=== PATIENT | female | born 1950 | race Caucasian/White ===

== ENCOUNTER → 2016-02-26 | Outpatient (CLI) | payer MEDICARE, OTHER ==
[~2016-02-26] MED LIST: ACTO45TA OR; ASPI1TAB PO; ASPI81TA83 OR; CALCTAB68 PO; COMBAER6 INH; DULE100A INH; GLUC1000 OR; IBUP400T OR; INDA125TA PO; INSUDET SC; INSULANT SC; Indapamide PO; LISI10TA4 OR; LISI10TA4 PO; LOVA40TA OR; LOVA40TA PO; MAGN400T5 PO; METF-414 PO; METF500T PO; OMEP20TA7 OR; OMEP40CA2 PO; PERC5TAB6 PO; PIOG45TA2 PO; POTA10CA PO; POTA10CA2 OR
--- NOTE | 2016-02-26 13:45 | REP ---
BILATERAL HIPS: AP and frog leg views of both hips are performed. There is no acute fracture or dislocation. Joint spaces appear essentially unremarkable. There are mild tendinous calcifications along the greater trochanters. IMPRESSION: Essentially negative bilateral hip series. Signed by Antione Alcocer MD 02/26/2016 05:22 P
== END ==
LOC: M RAD 12:15
PROVIDERS: ATTEND Neurological Surgery
DX: M85.9 Disorder of bone density and structure, unspecified (principal)

== ENCOUNTER 2016-07-11 19:33 | Emergency (ER) | payer MEDICARE, OTHER ==
[~2016-07-11] VITALS: Ht 152.4 cm; Wt 80.7 kg
[2016-07-11 19:34] VITALS: BP 135/68
[2016-07-11] MEDS ORDERED: BACTRIM 160MG/800MG DS TAB PO ONE (20:00)
[2016-07-11] MEDS ORDERED: BACT800T5 PO (20:02)
== END 2016-07-11 20:41 | disposition home or self-care (01) ==
LOC: M ED 20:15
DX: N30.00 Acute cystitis without hematuria (principal); E11.9 Type 2 diabetes mellitus without complications; J45.909 Unspecified asthma, uncomplicated; Z90.79 Acquired absence of other genital organ(s); Z90.89 Acquired absence of other organs; Z79.82 Long term (current) use of aspirin; Z79.899 Other long term (current) drug therapy; Z91.09 Other allergy status, other than to drugs and biological substances

== ENCOUNTER 2016-08-09 19:39 | Emergency (ER) | payer MEDICARE, OTHER ==
[~2016-08-09] VITALS: Ht 149.9 cm; Wt 79.2 kg
[~2016-08-09 19:39] MED LIST changes: +BACT800T5 PO; -METF500T PO; +METF500T13 PO; +PERC5TAB12 PO; -PERC5TAB6 PO; -PIOG45TA2 PO; +PIOG45TA4 PO
[2016-08-09] MEDS ORDERED: ACETAMINOPHEN TAB 650MG DOSE (2X325MG) PO ONE (23:00)
[2016-08-09] MEDS ORDERED: NS 500 ML IV ONE (23:00)
[2016-08-09] MEDS ORDERED: IPRATROPIUM 0.5MG/ALBUTEROL 2.5MG INH SOL UD 3ML (DUONEB)(J7620) NEB ONE (23:00)
[2016-08-09 23:34] LABS: BASO % 0.6 % (0.0-1.0); EOS # 0.1 K/mm3 (0.0-0.50); EOS % 1.3 % (0.0-3.0); LARGE UNSTAINED CELL # 0.1 K/mm3 (0.0-0.4); LARGE UNSTAINED CELL % 1.3 % (0.0-4.0); LYMPH # 1.4 K/mm3 (1.5-4.5); LYMPH % 23.9 % (24.0-44.0); MEAN CORPUSCULAR HEMOGLOBIN 27.2 pg (27.0-33.0); MEAN CORPUSCULAR HGB CONC 31.1 g/dl (32.0-36.5); MEAN CORPUSCULAR VOLUME 87.5 fl (80.0-96.0); MONO # 0.3 K/mm3 (0.0-0.8); MONO % 5.7 % (0.0-5.0); NEUTROPHILS # 3.6 K/mm3 (1.8-7.7); NEUTROPHILS % 67.2 % (36.0-66.0); PLATELET COUNT, AUTOMATED 249 k/mm3 (150-450); RED CELL DISTRIBUTION WIDTH 15.1 % (11.5-14.5); WHITE BLOOD COUNT 5.4 K/mm3 (4.0-10.0)
[2016-08-10] LABS: ALBUMIN 3.8 GM/DL (3.2-5.2); ALBUMIN/GLOBULIN RATIO 1.31 (1.00-1.93); ALKALINE PHOSPHATASE 81 U/L (45-117); ALT/SGPT 19 U/L (12-78); ANION GAP 5 MEQ/L (8-16); AST/SGOT 11 U/L (15-37); BILIRUBIN,DIRECT 0.1 MG/DL (0.0-0.2); BILIRUBIN,TOTAL 0.6 MG/DL (0.2-1.0); BLOOD UREA NITROGEN 16 MG/DL (7-18); CALCIUM LEVEL 9.1 MG/DL (8.8-10.2); CARBON DIOXIDE LEVEL 32 MEQ/L (21-32); CHLORIDE LEVEL 98 MEQ/L (98-107); CREATININE FOR GFR 0.87 MG/DL (0.55-1.02); GLOMERULAR FILTRATION RATE > 60.0 (>45); GLUCOSE, FASTING 195 MG/DL (80-110); POTASSIUM SERUM 3.6 MEQ/L (3.5-5.1); SODIUM LEVEL 135 MEQ/L (136-145); TOTAL PROTEIN 6.7 GM/DL (6.4-8.2)
[2016-08-10] MEDS ORDERED: POLY33502 PO (00:41)
[2016-08-10 00:51] VITALS: BP 122/67
--- NOTE | 2016-08-10 09:39 | REP ---
ABDOMINAL SERIES: Supine and erect views of the abdomen demonstrate no evidence of free intraperitoneal air and no evidence for bowel obstruction. Phlebolith is seen in the right pelvis. An accompanying view of the chest demonstrates mild cardiomegaly. There is no acute infiltrate. IMPRESSION: Unremarkable abdominal series. Signed by Antione Alcocer MD 08/10/2016 08:16 P
== END 2016-08-10 00:53 | disposition home or self-care (01) ==
LOC: M ED 21:12
DX: K59.00 Constipation, unspecified (principal); E11.9 Type 2 diabetes mellitus without complications; G40.909 Epilepsy, unspecified, not intractable, without status epilepticus; J45.909 Unspecified asthma, uncomplicated; G89.29 Other chronic pain; Z90.79 Acquired absence of other genital organ(s); Z90.89 Acquired absence of other organs; Z87.891 Personal history of nicotine dependence; Z79.82 Long term (current) use of aspirin; Z79.899 Other long term (current) drug therapy; Z91.09 Other allergy status, other than to drugs and biological substances

== ENCOUNTER → 2017-04-20 | Outpatient (REF) | payer MEDICARE, OTHER | LOC: M LAB REF 12:15 | DX: L03.114 Cellulitis of left upper limb (principal) | CPT/HCPCS: 87070; 87077 ==

== ENCOUNTER → 2017-05-16 | Outpatient (REF) | payer MEDICARE, OTHER | LOC: M LAB REF 19:09 | DX: R30.0 Dysuria (principal) | CPT/HCPCS: 87086 ==

== ENCOUNTER → 2017-08-26 | Outpatient (CLI) | payer MEDICARE, OTHER | LOC: M WUC 12:05 | DX: M25.569 Pain in unspecified knee (principal) | CPT/HCPCS: 73560 ==

== ENCOUNTER → 2017-09-29 | Outpatient (CLI) | payer MEDICARE, OTHER | LOC: M WUC 13:19 | DX: M85.9 Disorder of bone density and structure, unspecified (principal) | CPT/HCPCS: 73030 ==

== ENCOUNTER → 2017-11-16 | Outpatient (CLI) | payer MEDICARE, OTHER | LOC: M WUC 12:14 | DX: M25.552 Pain in left hip (principal) | CPT/HCPCS: 73502 ==

== ENCOUNTER → 2018-03-17 | Outpatient (CLI) | payer MEDICARE, OTHER ==
[~2018-03-17] MED LIST changes: +KLOR10TA76 PO; +MAAL10003 PO; +PIOG1TAB55 PO; -PIOG45TA4 PO; +POLY1POW38 PO; -POTA10CA PO
--- NOTE | 2018-03-17 19:44 | REP ---
LEFT SHOULDER SERIES: Three views of the left shoulder are performed. There is no fracture or dislocation seen. There is mild narrowing and spurring at the glenohumeral joint. IMPRESSION: Mild degenerative changes. No fracture or dislocation. Electronically Signed by Antione Alcocer MD 03/17/2018 07:50 P
--- NOTE | 2018-03-17 19:48 | REP ---
LEFT RIB SERIES: Four views of the left ribs are performed. There is no acute fracture, dislocation or bone lesion identified. A PA view of the chest demonstrates no infiltrate or pneumothorax. No pleural effusion is seen. There appears to be a prominent cardiophrenic fat pad on the left. There is a calcification of the thoracic aorta. IMPRESSION: No evidence of left rib fracture. Electronically Signed by Antione Alcocer MD 03/17/2018 07:50 P
== END ==
LOC: M WUC 18:28
PROVIDERS: ATTEND Physician Assistant
DX: M25.712 Osteophyte, left shoulder (principal); M25.512 Pain in left shoulder

== ENCOUNTER → 2018-04-11 | Outpatient (CLI) | payer MEDICARE, OTHER ==
--- NOTE | 2018-04-11 15:11 | REP ---
UNILATERAL RIBS, PA CHEST: HISTORY: Contusion. COMPARISON: 03/17/2018. The lungs are clear. The heart is normal in size. The pulmonary vasculature is normal in appearance. The bony structure is intact. IMPRESSION:No acute disease. Electronically Signed by Jaren Barnhart MD 04/11/2018 03:48 P
== END ==
LOC: M WUC 14:27
PROVIDERS: ATTEND Physician Assistant
DX: S20.222A Contusion of left back wall of thorax, initial encounter (principal); X58.XXXA Exposure to other specified factors, initial encounter; Y92.9 Unspecified place or not applicable

== ENCOUNTER → 2018-09-16 | Outpatient (CLI) | payer MEDICARE, OTHER ==
[~2018-09-16] MED LIST changes: -ASPI1TAB PO; +ASPI81TA26 PO
[2018-09-16 16:20] LABS: BASO % 0.3 % (0.0-1.0); EOS # 0.2 10^3/uL (0.0-0.50); EOS % 2.2 % (0.0-3.0); HEMATOCRIT 35.1 % (36.0-47.0); HEMOGLOBIN 10.3 g/dl (12.0-15.5); LYMPH # 2.1 10^3/uL (1.5-4.5); LYMPH % 23.3 % (24.0-44.0); MEAN CORPUSCULAR HEMOGLOBIN 24.9 pg (27.0-33.0); MEAN CORPUSCULAR HGB CONC 29.3 g/dl (32.0-36.5); MONO # 0.6 10^3/uL (0.0-0.8); MONO % 6.8 % (0.0-5.0); NEUTROPHILS # 5.9 10^3/uL (1.8-7.7); NEUTROPHILS % 67.2 % (36.0-66.0); PLATELET COUNT, AUTOMATED 292 10^3/uL (150-450); RED BLOOD COUNT 4.13 10^6/uL (4.00-5.40); WHITE BLOOD COUNT 8.8 10^3/uL (4.0-10.0)
[2018-09-16 17:11] LABS: PERCENT SATURATION 7.2 % (13.2-45.0)
== END ==
LOC: M WUC 12:02
PROVIDERS: ATTEND Internal Medicine
DX: D64.9 Anemia, unspecified (principal)

== ENCOUNTER 2018-09-18 22:47 | Emergency (ER) | payer MEDICARE, OTHER ==
[~2018-09-18] VITALS: Ht 144.8 cm; Wt 86.1 kg
[2018-09-19 00:30] LABS: BLOOD UREA NITROGEN 13 MG/DL (7-18); CALCIUM LEVEL 9.1 MG/DL (8.8-10.2); CARBON DIOXIDE LEVEL 28 MEQ/L (21-32); CHLORIDE LEVEL 101 MEQ/L (98-107); CREATININE FOR GFR 0.81 MG/DL (0.55-1.30); GLOMERULAR FILTRATION RATE > 60.0 (>45); GLUCOSE, FASTING 109 MG/DL (70-100); POTASSIUM SERUM 3.9 MEQ/L (3.5-5.1); SODIUM LEVEL 137 MEQ/L (136-145)
[2018-09-19 01:02] VITALS: BP 134/76
== END 2018-09-19 01:20 | disposition home or self-care (01) ==
LOC: M ED 22:47
DX: E11.9 Type 2 diabetes mellitus without complications (principal); I10 Essential (primary) hypertension; J21.9 Acute bronchiolitis, unspecified; J45.909 Unspecified asthma, uncomplicated; Z79.82 Long term (current) use of aspirin; Z79.4 Long term (current) use of insulin; Z79.899 Other long term (current) drug therapy; Z91.89 Other specified personal risk factors, not elsewhere classified

== ENCOUNTER 2018-10-11 14:59 | Emergency (ER) | payer MEDICARE, OTHER ==
[~2018-10-11] VITALS: Ht 142.2 cm; Wt 84.7 kg
[2018-10-11] MEDS ORDERED: OMEP-221 (15:09)
[2018-10-11] MEDS ORDERED: METF10004 (15:09)
[2018-10-11] MEDS ORDERED: DULO1CAP5 (15:09)
[2018-10-11] MEDS ORDERED: FERA1TAB (15:09)
[2018-10-11 17:40] LABS: BASO % 0.5 % (0.0-1.0); EOS # 0.2 10^3/uL (0.0-0.50); EOS % 2.4 % (0.0-3.0); HEMATOCRIT 34.4 % (36.0-47.0); HEMOGLOBIN 10.4 g/dl (12.0-15.5); LYMPH # 2.4 10^3/uL (1.5-4.5); LYMPH % 37.7 % (24.0-44.0); MEAN CORPUSCULAR HEMOGLOBIN 25.9 pg (27.0-33.0); MEAN CORPUSCULAR HGB CONC 30.2 g/dl (32.0-36.5); MEAN CORPUSCULAR VOLUME 85.6 fl (80.0-96.0); MONO # 0.5 10^3/uL (0.0-0.8); MONO % 7.9 % (0.0-5.0); NEUTROPHILS # 3.3 10^3/uL (1.8-7.7); NEUTROPHILS % 51.3 % (36.0-66.0); PLATELET COUNT, AUTOMATED 305 10^3/uL (150-450); RED BLOOD COUNT 4.02 10^6/uL (4.00-5.40); WHITE BLOOD COUNT 6.3 10^3/uL (4.0-10.0)
[2018-10-11 18:42] LABS: ALBUMIN 3.3 GM/DL (3.2-5.2); ALT/SGPT 20 U/L (12-78); BILIRUBIN,DIRECT < 0.1 MG/DL (0.0-0.2); BILIRUBIN,TOTAL 0.2 MG/DL (0.2-1.0); BLOOD UREA NITROGEN 19 MG/DL (7-18); CALCIUM LEVEL 8.8 MG/DL (8.8-10.2); CARBON DIOXIDE LEVEL 27 MEQ/L (21-32); CHLORIDE LEVEL 105 MEQ/L (98-107); CREATININE FOR GFR 0.82 MG/DL (0.55-1.30); GLOMERULAR FILTRATION RATE > 60.0 (>45); GLUCOSE, FASTING 159 MG/DL (70-100); LIPASE 305 U/L (73-393); POTASSIUM SERUM 4.6 MEQ/L (3.5-5.1); SODIUM LEVEL 139 MEQ/L (136-145); TOTAL PROTEIN 6.1 GM/DL (6.4-8.2)
[2018-10-11] MEDS ORDERED: ISOVUE-370 76% 100ML VIAL (Q9967) As Ordered ONE (19:02)
--- NOTE | 2018-10-11 19:44 | REPVR ---
EXAM: CT Abdomen and Pelvis With Contrast EXAM DATE/TIME: 10/11/2018 6:55 PM CLINICAL HISTORY: 68 years old, female; Abdominal pain; Generalized; Additional info: Low abd pain, ttp TECHNIQUE: Imaging protocol: Axial computed tomography images of the abdomen and pelvis with intravenous contrast. Radiation optimization: All CT scans at this facility use at least one of these dose optimization techniques: automated exposure control; mA and/or kV adjustment per patient size (includes targeted exams where dose is matched to clinical indication); or iterative reconstruction. Contrast material: ISOVUE 370; Contrast volume: 100 ml; Contrast route: IV; COMPARISON: CT ABD PELVIS W/O CONTRAST 11/17/2015 6:53 PM FINDINGS: Pleural space: No pulmonary consolidation or pleural effusion identified within the lower thorax. Liver: Small geographic area of decreased attenuation within the left lobe of the liver, consistent with focal fatty infiltration. No intrahepatic duct dilatation. Gallbladder and bile ducts: Mildly distended gallbladder without wall thickening, calcified stone or pericholecystic fluid, nonspecific. Pancreas: Unremarkable pancreas. Spleen: Normal spleen. Adrenals: Normal adrenal glands. Kidneys and ureters: No renal stone, focal renal lesion, or hydronephrosis. Stomach and bowel: Small diverticulum of the descending duodenum without diverticulitis. Mild diverticulosis of the descending colon without diverticulitis. The stomach and small bowel are unremarkable. Appendix: No evidence of appendicitis. Intraperitoneal space: Unremarkable. No free air. No significant fluid collection. Vasculature: Atherosclerosis of the abdominal aorta and branch vessels. No aneurysm. Lymph nodes: Unremarkable. No enlarged lymph nodes. Bladder: Generalized wall thickening of the urinary bladder is likely secondary to under distention. Cystitis is not excluded. Reproductive: Status post hysterectomy. No adnexal mass. Bones/joints: Degenerative spondylosis of the lower thoracic and lumbar spine. No fracture or suspicious bone lesion. Soft tissues: Hazy density and reticulation of the subcutaneous fat of the anterior upper abdomen, likely secondary to medication injection sites. Correlate clinically. IMPRESSION: 1. No acute abnormality. 2. Generalized wall thickening of the urinary bladder is likely secondary to under distention. Cystitis is not excluded. Electronically signed by: Antoine Linder On 10/11/2018 19:43:54 PM
[2018-10-11] MEDS ORDERED: NS 1,000 ML IV ONE (20:00)
[2018-10-11 21:41] VITALS: BP 132/62
== END 2018-10-11 22:03 | disposition home or self-care (01) ==
LOC: M ED 14:59
DX: E86.0 Dehydration (principal); R10.9 Unspecified abdominal pain; E11.9 Type 2 diabetes mellitus without complications; I10 Essential (primary) hypertension; E78.5 Hyperlipidemia, unspecified; J45.909 Unspecified asthma, uncomplicated; M54.9 Dorsalgia, unspecified; K21.9 Gastro-esophageal reflux disease without esophagitis; Z87.891 Personal history of nicotine dependence; F10.21 Alcohol dependence, in remission; Z91.048 Other nonmedicinal substance allergy status; Z79.899 Other long term (current) drug therapy; Z79.82 Long term (current) use of aspirin; Z79.4 Long term (current) use of insulin
CPT/HCPCS: 74177; 80048; 80076; 81001; 83690; 85025; 99284; Q9967

== ENCOUNTER 2018-12-01 08:16 | Day surgery (SDC) | payer MEDICARE, OTHER ==
[~2018-12-01] VITALS: Ht 152.4 cm; Wt 83.0 kg
[~2018-12-01 08:16] MED LIST changes: +CALC1TAB63 PO; +DULO1CAP5 PO; +FERA1TAB PO; +MAGN400T2 PO; +METF10004 PO; +NS 1,000 ML IV ONE; +OMEP-221; -OMEP40CA2 PO; +OMEP40CA97 PO
[2018-12-01] MEDS ORDERED: PROPOFOL 200 MG/20 ML VIAL As Ordered ONE (08:32)
[2018-12-01] MEDS ORDERED: LIDOCAINE 2% INJ 100 MG/5 ML SDV (FOR ANES.) As Ordered ONE (08:32)
[2018-12-01] MEDS ORDERED: fentaNYL 100 MCG/2 ML INJECTION (J3010) As Ordered ONE (08:39)
[2018-12-01] MEDS ORDERED: DEXTROSE 50% 50 ML SYRINGE As Ordered ONE (08:55)
[2018-12-01] MEDS ORDERED: DEXTROSE 50% 50 ML SYRINGE IV ONE (09:15)
--- NOTE | 2018-12-01 10:48 | ROOR ---
Patient Name: Elsy Killian Procedure Date: 12/01/2018 10:02 AM Date of : 1950 Age: 68 Room: [facility] Gender: Female Note Status: Finalized Procedure: Upper GI endoscopy Indications: Iron deficiency anemia Providers: Evan Carrion MD Referring MD: KRISTINE KINGSTON MD Requesting Provider: Medicines: Monitored Anesthesia Care Complications: No immediate complications. Procedure: Pre-Anesthesia Assessment: - Prior to the procedure, a History and Physical was performed, and patient medications and allergies were reviewed. The patient is competent. The risks and benefits of the procedure and the sedation options and risks were discussed with the patient. All questions were answered and informed consent was obtained. Patient identification and proposed procedure were verified by the physician, the nurse and the anesthesiologist in the procedure room. Mental Status Examination: alert and oriented. Airway Examination: normal oropharyngeal airway and neck mobility. Respiratory Examination: clear to auscultation. CV Examination: normal. Prophylactic Antibiotics: The patient does not require prophylactic antibiotics. Prior Anticoagulants: The patient has taken no previous anticoagulant or antiplatelet agents. ASA Grade Assessment: II - A patient with mild systemic disease. After reviewing the risks and benefits, the patient was deemed in satisfactory condition to undergo the procedure. The anesthesia plan was to use monitored anesthesia care (MAC). Immediately prior to administration of medications, the patient was re-assessed for adequacy to receive sedatives. The heart rate, respiratory rate, oxygen saturations, blood pressure, adequacy of pulmonary ventilation, and response to care were monitored throughout the procedure. The physical status of the patient was re-assessed after the procedure. The Endoscope was introduced through the mouth, and advanced to the second part of duodenum. The upper GI endoscopy was accomplished without difficulty. The patient tolerated the procedure well. Findings: The Z-line was regular and was found 35 cm from the incisors. The examined esophagus was normal. Scattered moderate inflammation characterized by erosions, erythema, friability and granularity was found in the gastric antrum. Biopsies were taken with a cold forceps for Helicobacter pylori testing. Verification of patient identification for the specimen was done by the physician and nurse using the patient's name, date and medical record number. Estimated blood loss was minimal. No gross lesions were noted in the duodenal bulb and in the second portion of the duodenum. Biopsies for histology were taken with a cold forceps for evaluation of celiac disease. Impression: - Z-line regular, 35 cm from the incisors. - Normal esophagus. - Gastritis. Biopsied. - No gross lesions in the duodenal bulb and in the second portion of the duodenum. Biopsied. Recommendation: - Patient has a contact number available for emergencies. The signs and symptoms of potential delayed complications were discussed with the patient. Return to normal activities tomorrow. Written discharge instructions were provided to the patient. - High fiber diet. - Continue present medications. - Await pathology results. - Use Protonix (pantoprazole) 40 mg PO twice daily - to be taken in morning (1/2 hour before breakfast) and at bedtime ( atleast 3 hours after last meal) for 8 weeks. - Return to GI clinic in [facility] (address [address], [address], [place] [address]) in 4 -- 6 weeks. Please call GI clinic @ [phone] for apppointment date and time. - Return to primary care physician. Evan Carrion MD Evan Carrion MD 12/01/2018 10:48:06 AM Electronically signed by Evan Carrion MD Number of Addenda: 0 Note Initiated On: 12/01/2018 10:02 AM Estimated Blood Loss: Estimated blood loss was minimal.
--- NOTE | 2018-12-01 10:59 | ROOR ---
Patient Name: Elsy Killian Procedure Date: 12/01/2018 10:03 AM Date of : 1950 Age: 68 Room: [facility] Gender: Female Note Status: Finalized Procedure: Colonoscopy Indications: Iron deficiency anemia Providers: Evan Carrion MD Referring MD: KRISTINE KINGSTON MD Requesting Provider: Medicines: Monitored Anesthesia Care Complications: No immediate complications. Procedure: Pre-Anesthesia Assessment: - Prior to the procedure, a History and Physical was performed, and patient medications and allergies were reviewed. The patient is competent. The risks and benefits of the procedure and the sedation options and risks were discussed with the patient. All questions were answered and informed consent was obtained. Patient identification and proposed procedure were verified by the physician, the nurse and the anesthesiologist in the procedure room. Mental Status Examination: alert and oriented. Airway Examination: normal oropharyngeal airway and neck mobility. Respiratory Examination: clear to auscultation. CV Examination: normal. Prophylactic Antibiotics: The patient does not require prophylactic antibiotics. Prior Anticoagulants: The patient has taken no previous anticoagulant or antiplatelet agents. ASA Grade Assessment: III - A patient with severe systemic disease. After reviewing the risks and benefits, the patient was deemed in satisfactory condition to undergo the procedure. The anesthesia plan was to use monitored anesthesia care (MAC). Immediately prior to administration of medications, the patient was re-assessed for adequacy to receive sedatives. The heart rate, respiratory rate, oxygen saturations, blood pressure, adequacy of pulmonary ventilation, and response to care were monitored throughout the procedure. The physical status of the patient was re-assessed after the procedure. The Colonoscope was introduced through the anus and advanced to the terminal ileum, with identification of the appendiceal orifice and IC valve. The colonoscopy was performed without difficulty. The patient tolerated the procedure well. The quality of the bowel preparation was poor. The terminal ileum, ileocecal valve, appendiceal orifice, and rectum were photographed. Scope insertion time was 3 minutes. Scope withdrawal time was 8 minutes. The total duration of the procedure was 11 minutes. Findings: The perianal and digital rectal examinations were normal. The terminal ileum appeared normal. Semi-liquid semi-solid stool was found from descending colon to cecum, interfering with visualization. Lavage of the area was performed using a large amount of sterile water, resulting in incomplete clearance with fair visualization. Non-bleeding external and internal hemorrhoids were found during retroflexion. The hemorrhoids were medium-sized. Impression: - Preparation of the colon was poor. - The examined portion of the ileum was normal. - Stool from descending to cecum. - Non-bleeding external and internal hemorrhoids. - No specimens collected. Recommendation: - Patient has a contact number available for emergencies. The signs and symptoms of potential delayed complications were discussed with the patient. Return to normal activities tomorrow. Written discharge instructions were provided to the patient. - High fiber diet. - Continue present medications. - Await pathology results. - Repeat colonoscopy in 1 year because the bowel preparation was poor. - Check hemoglobin and hematocrit and iron studies in 3 months. - Return to GI clinic in [facility] (address [address], [address], [place] [address]) in 4 -- 6 weeks. Please call GI clinic @ [phone] for apppointment date and time. - Return to primary care physician. Evan Carrion MD Evan Carrion MD 12/01/2018 10:59:07 AM Electronically signed by Evan Carrion MD Number of Addenda: 0 Note Initiated On: 12/01/2018 10:03 AM Estimated Blood Loss: Estimated blood loss: none.
[2018-12-01 11:00] VITALS: BP 142/71
== END 2018-12-01 11:22 | disposition home or self-care (01) ==
LOC: M OPP 08:16
PROVIDERS: ATTEND Internal Medicine Gastroenterology
DX: K64.8 Other hemorrhoids (principal); K29.70 Gastritis, unspecified, without bleeding; D50.9 Iron deficiency anemia, unspecified; Z79.82 Long term (current) use of aspirin; Z79.4 Long term (current) use of insulin; Z79.899 Other long term (current) drug therapy; Z91.048 Other nonmedicinal substance allergy status; Z87.891 Personal history of nicotine dependence
CPT/HCPCS: 43239; 45378; 88305; J3010

== ENCOUNTER → 2019-02-13 | Outpatient (CLI) | payer MEDICARE, OTHER ==
[~2019-02-13] MED LIST changes: -NS 1,000 ML IV ONE
[2019-02-13 10:47] LABS: BASO % 0.1 % (0.0-1.0); EOS # 0.2 10^3/uL (0.0-0.5); EOS % 2.3 % (0.0-3.0); HEMATOCRIT 35.8 % (36.0-47.0); HEMOGLOBIN 10.6 g/dl (12.0-15.5); LYMPH # 1.6 10^3/uL (1.5-5.0); LYMPH % 23.5 % (24.0-44.0); MEAN CORPUSCULAR HGB CONC 29.6 g/dl (32.0-36.5); MEAN CORPUSCULAR VOLUME 87.7 fl (80.0-96.0); MONO # 0.4 10^3/uL (0.0-0.8); MONO % 6.3 % (0.0-5.0); NEUTROPHILS # 4.7 10^3/uL (1.5-8.5); NEUTROPHILS % 67.7 % (36.0-66.0); PLATELET COUNT, AUTOMATED 302 10^3/uL (150-450); RED BLOOD COUNT 4.08 10^6/uL (4.00-5.40)
[2019-02-13 11:17] LABS: BLOOD UREA NITROGEN 15 MG/DL (7-18); CREATININE FOR GFR 0.91 MG/DL (0.55-1.30); FERRITIN 6 NG/ML (8-252); GLOMERULAR FILTRATION RATE > 60.0 (>45); IRON (FE) 26 UG/DL (50-170); PERCENT SATURATION 5.6 % (13.2-45.0); TOTAL IRON BINDING CAPACITY 461 UG/DL (250-450)
[2019-02-13 11:24] LABS: VITAMIN B12 LEVEL 267 PG/ML
[2019-02-13 11:25] LABS: FOLATE > 24.0 NG/ML
== END ==
LOC: M LAB 10:01
PROVIDERS: ATTEND Internal Medicine Gastroenterology
DX: D50.9 Iron deficiency anemia, unspecified (principal)

== ENCOUNTER 2019-07-28 16:56 | Emergency (ER) | payer MEDICARE, OTHER ==
[~2019-07-28] VITALS: Ht 144.8 cm; Wt 83.8 kg
[2019-07-28] MEDS ORDERED: DOCU100C16 (17:21)
[2019-07-28] MEDS ORDERED: PANT40TA3 (17:21)
[2019-07-28 17:30] LABS: BASO % 0.6 % (0.0-1.0); EOS # 0.1 10^3/uL (0.0-0.5); EOS % 2.2 % (0.0-3.0); HEMATOCRIT 34.8 % (36.0-47.0); HEMOGLOBIN 10.6 g/dl (12.0-15.5); LYMPH % 31.2 % (24.0-44.0); MEAN CORPUSCULAR HEMOGLOBIN 25.6 pg (27.0-33.0); MEAN CORPUSCULAR HGB CONC 30.5 g/dl (32.0-36.5); MEAN CORPUSCULAR VOLUME 84.1 fl (80.0-96.0); MONO # 0.6 10^3/uL (0.0-0.8); NEUTROPHILS # 3.6 10^3/uL (1.5-8.5); NEUTROPHILS % 56.8 % (36.0-66.0); PLATELET COUNT, AUTOMATED 284 10^3/uL (150-450); RED BLOOD COUNT 4.14 10^6/uL (4.00-5.40); WHITE BLOOD COUNT 6.3 10^3/uL (4.0-10.0)
[2019-07-28 18:01] LABS: ALBUMIN 3.3 GM/DL (3.2-5.2); ALT/SGPT 17 U/L (12-78); BILIRUBIN,DIRECT < 0.1 MG/DL (0.0-0.2); BILIRUBIN,TOTAL 0.3 MG/DL (0.2-1.0); LIPASE 240 U/L (73-393); TOTAL PROTEIN 6.3 GM/DL (6.4-8.2)
--- NOTE | 2019-07-28 21:19 | ECGEPIP ---
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
--- NOTE | 2019-07-28 21:20 | ECGEPIP ---
[facility] - ED Test Date: 2019-07-28 Pat Name: SARMAD HERNANDEZ Department: Room: - Gender: Female Card Hand: : 1950 Requested By: Balta Aparicio Order Number: [id number] Reading MD: Alina Suh Measurements Intervals [place] Rate: 61 P: 55 HI: 159 QRS: 75 QRSD: 81 T: 29 QT: 388 QTc: 392 Interpretive Statements SINUS RHYTHM LOW QRS VOLTAGE IN PRECORDIAL LEADS DELAYED R PROGRESSION SIMILAR 07/28/19 Electronically Signed on 07-28-2019 21:20:27 EDT by Alina Suh
--- NOTE | 2019-07-28 21:23 | ECGEPIP ---
[facility] - ED Test Date: 2019-07-28 Pat Name: SARMAD HERNANDEZ Department: Room: - Gender: Female Score Caller: [email or web address] : 1950 Requested By: Balta Aparicio Order Number: [id number] Reading MD: Alina Suh Measurements Intervals [place] Rate: 59 P: 269 NM: 111 QRS: 78 QRSD: 77 T: 28 QT: 409 QTc: 406 Interpretive Statements JUNCTIONAL BRADYCARDIA LOW QRS VOLTAGE IN PRECORDIAL LEADS SEPTAL MYOCARDIAL INFARCTION, OF INDETERMINATE AGE NSTTW abnormalities Electronically Signed on 07-28-2019 21:23:16 EDT by Alina Suh
[2019-07-28 21:26] VITALS: BP 134/71
--- NOTE | 2019-07-31 09:53 | REP ---
CHEST: REASON FOR EXAM: Nausea. Preliminary report given by Dr. Da Silva. COMPARISON: No priors. FINDINGS: The technique utilized in obtaining the radiograph has magnified the cardiac silhouette and accentuated the interstitial markings. The superior mediastinal structures are midline. The cardiac silhouette is unremarkable in size, shape, and position. The diaphragmatic surfaces of the lungs are regular, and the costophrenic angles are clear. The pulmonary vaughn are clear. The imaged osseous structures are intact. IMPRESSION: There is no acute cardiopulmonary disease. Electronically Signed by Rock Johnson DO 07/31/2019 10:55 A
== END 2019-07-28 21:59 | disposition home or self-care (01) ==
LOC: M ED 16:56
DX: E11.65 Type 2 diabetes mellitus with hyperglycemia (principal); I10 Essential (primary) hypertension; J45.909 Unspecified asthma, uncomplicated; E78.5 Hyperlipidemia, unspecified; G89.29 Other chronic pain; M54.9 Dorsalgia, unspecified; K21.9 Gastro-esophageal reflux disease without esophagitis; E66.9 Obesity, unspecified; Z79.899 Other long term (current) drug therapy; Z79.4 Long term (current) use of insulin; Z79.82 Long term (current) use of aspirin; Z91.048 Other nonmedicinal substance allergy status

== ENCOUNTER 2019-08-30 20:59 | Emergency (ER) | payer MEDICARE, OTHER ==
[~2019-08-30] VITALS: Ht 142.2 cm; Wt 83.1 kg
[~2019-08-30 20:59] MED LIST changes: +DOCU100C16; +PANT40TA3
[2019-08-30 22:23] LABS: BASO % 0.3 % (0.0-1.0); EOS # 0.1 10^3/uL (0.0-0.5); EOS % 0.5 % (0.0-3.0); HEMATOCRIT 37.2 % (36.0-47.0); HEMOGLOBIN 11.1 g/dl (12.0-15.5); LYMPH # 1.8 10^3/uL (1.5-5.0); LYMPH % 18.8 % (24.0-44.0); MEAN CORPUSCULAR HEMOGLOBIN 25.4 pg (27.0-33.0); MEAN CORPUSCULAR HGB CONC 29.8 g/dl (32.0-36.5); MEAN CORPUSCULAR VOLUME 85.1 fl (80.0-96.0); MONO # 0.4 10^3/uL (0.0-0.8); MONO % 3.7 % (0.0-5.0); NEUTROPHILS # 7.2 10^3/uL (1.5-8.5); NEUTROPHILS % 76.4 % (36.0-66.0); PLATELET COUNT, AUTOMATED 369 10^3/uL (150-450); RED BLOOD COUNT 4.37 10^6/uL (4.00-5.40); WHITE BLOOD COUNT 9.4 10^3/uL (4.0-10.0)
[2019-08-30 22:33] LABS: INR 0.99; PROTHROMBIN TIME 12.8 SECONDS (11.8-14.0)
[2019-08-30 22:54] LABS: ALBUMIN 3.6 GM/DL (3.2-5.2); ALT/SGPT 28 U/L (12-78); BILIRUBIN,DIRECT < 0.1 MG/DL (0.0-0.2); BILIRUBIN,TOTAL 0.3 MG/DL (0.2-1.0); BLOOD UREA NITROGEN 23 MG/DL (7-18); CARBON DIOXIDE LEVEL 29 MEQ/L (21-32); CHLORIDE LEVEL 100 MEQ/L (98-107); CK-MB VALUE MASS 1.7 NG/ML (<3.6); CPK CREATINE PHOSPHOKINASE 190 U/L (26-192); CREATININE FOR GFR 0.98 MG/DL (0.55-1.30); GLOMERULAR FILTRATION RATE 59.9 (>45); GLUCOSE, FASTING 164 MG/DL (70-100); LIPASE 258 U/L (73-393); MB/CK RELATIVE INDEX 0.89 (< OR =4); POTASSIUM SERUM 4.3 MEQ/L (3.5-5.1); SODIUM LEVEL 137 MEQ/L (136-145); TOTAL PROTEIN 7.3 GM/DL (6.4-8.2); TROPONIN I < 0.02 NG/ML (< 0.10)
[2019-08-30] MEDS ORDERED: NS 1,000 ML IV ONE (23:00)
[2019-08-31] MEDS ORDERED: ALBUTEROL SULFATE 2.5 MG/0.5 ML INH NEB SOLN INH ONE
[2019-08-31] MEDS ORDERED: IPRATROPIUM 0.5MG/ALBUTEROL 2.5MG INH SOL UD 3ML (DUONEB) NEB ONE
--- NOTE | 2019-08-31 00:48 | ECGEPIP ---
[facility] - ED Test Date: 2019-08-30 Pat Name: SARMAD HERNANDEZ Department: Room: - Gender: Female Home Health Clinician: tyron : 1950 Requested By: Balta Aparicio Order Number: [id number] Reading MD: Ankur Adams Measurements Intervals [place] Rate: 70 P: -72 SC: 134 QRS: 76 QRSD: 86 T: 22 QT: 398 QTc: 432 Interpretive Statements Normal sinus rhythm LOW QRS VOLTAGE IN PRECORDIAL LEADS SEPTAL MYOCARDIAL INFARCTION, OF INDETERMINATE AGE NSTTW abnormalities Last tracing done 07-28-19 was junctional Electronically Signed on 08-31-2019 0:47:46 EDT by Ankur Adams
[2019-08-31] MEDS ORDERED: PRED20TA PO (00:59)
[2019-08-31] MEDS ORDERED: predniSONE 20 MG TAB PO ONE (01:00)
[2019-08-31 01:01] VITALS: BP 148/63
--- NOTE | 2019-08-31 08:51 | REP ---
REASON FOR EXAM: Chest pain. COMPARISON: 07/28/2019 FINDINGS: The technique utilized in obtaining the radiograph has magnified the cardiac silhouette and accentuated the interstitial markings. The superior mediastinal structures are midline. The cardiac silhouette is unremarkable in size, shape, and position. The diaphragmatic surfaces of the lungs are regular, and the costophrenic angles are clear. The pulmonary vaughn are clear. The imaged osseous structures are intact. IMPRESSION: There is no acute cardiopulmonary disease. No significant change from the prior exam. Electronically Signed by Rock Johnson DO 08/31/2019 04:53 P
== END 2019-08-31 01:13 | disposition home or self-care (01) ==
LOC: M ED 20:59
DX: J45.909 Unspecified asthma, uncomplicated (principal); E11.9 Type 2 diabetes mellitus without complications; I10 Essential (primary) hypertension; K21.9 Gastro-esophageal reflux disease without esophagitis; E66.9 Obesity, unspecified; Z79.82 Long term (current) use of aspirin; Z79.4 Long term (current) use of insulin; Z79.899 Other long term (current) drug therapy; Z91.89 Other specified personal risk factors, not elsewhere classified

== ENCOUNTER → 2019-09-08 | Outpatient (CLI) | payer MEDICARE, OTHER ==
[~2019-09-08] MED LIST changes: +E-Z-PAQUE 96% w/w SUSP 176GM BTL As Ordered ONE; +PANT40TA29; -PANT40TA3; +PRED20TA PO
--- NOTE | 2019-09-11 10:11 | REP ---
Examination Requested: SBFT Reason For Exam: Iron-deficiency anemia Small Bowel Follow Through The procedure was performed by JAZMIN Shrestha, under the direct supervision of Dr. Alcocer. The images were reviewed with Dr. Alcocer. The transformation coach film shows no organomegaly or pathological masses. The intestinal gas pattern appears normal. The barium was administered and the barium column was followed through the small bowel to the level of the terminal ileum. Small bowel transit time was approximately 20 minutes. During fluoroscopy gentle palpation shows all loops are freely mobile and pliable. There are no fixed or angulated loops. The small bowel mucosal pattern is normal in course and caliber. There is no transition to suggest a partial small-bowel obstruction. Spot filming of the terminal ileum shows it to be unremarkable. Impression: 1. Small bowel transit time of approximately 20 minutes, otherwise unremarkable small-bowel follow-through. 0.5 minutes of fluoroscopy time was utilized for this procedure. Some fluoroscopic images are performed with last image hold technology. These images require no additional radiation. Reviewed by JAZMIN Beckman 09/08/2019 03:28 P Electronically Signed by Antione Alcocer MD 09/11/2019 10:02 A
== END ==
LOC: M RAD 07:34
PROVIDERS: ATTEND Internal Medicine Gastroenterology
DX: D50.9 Iron deficiency anemia, unspecified (principal)

== ENCOUNTER → 2019-11-15 | Outpatient (CLI) | payer MEDICARE, OTHER ==
[~2019-11-15] MED LIST changes: -E-Z-PAQUE 96% w/w SUSP 176GM BTL As Ordered ONE
--- NOTE | 2019-11-15 14:16 | REPMRS ---
Patient History The patient states she has not had a clinical breast exam in over a year. Family history of breast cancer under age 50 in sister. 3D TOMOSYNTHESIS WAS PERFORMED. [facility]%. VOLPARA DENSITY B. Digital Woman Screen Mammo: November 15, 2019 - Exam #: [id number] Bilateral CC and MLO view(s) were taken. Technologist: Evelia May, Technologist Prior study comparison: 2019, bilateral digital mammo screening bilat, performed at [facility]. FINDINGS: There are scattered fibroglandular densities. There has been no change in the appearance of the mammogram from the prior studies. There is a mild amount of residual fibroglandular tissue which is fairly symmetric. There is no interval development of dominant mass, architectural distortion, or clustered microcalcification suggestive of malignancy. Assessment: BI-RADS/ACR category 1 mammogram. Negative Mammogram. Recommendation Routine screening mammogram in 1 year (for women over age 40). This mammogram was interpreted with the aid of an FDA-approved computer-aided dectection system. Electronically Signed By: Antione Alcocer MD 11/15/19 [id number]
== END ==
LOC: M WHC 13:32
PROVIDERS: ATTEND Internal Medicine
DX: Z12.31 Encounter for screening mammogram for malignant neoplasm of breast (principal); Z80.3 Family history of malignant neoplasm of breast

== ENCOUNTER → 2019-12-28 | Outpatient (CLI) | payer MEDICARE, OTHER ==
[2019-12-28 16:13] LABS: BASO % 0.3 % (0.0-1.0); EOS # 0.1 10^3/uL (0.0-0.5); EOS % 1.6 % (0.0-3.0); HEMATOCRIT 35.1 % (36.0-47.0); HEMOGLOBIN 10.5 g/dl (12.0-15.5); LYMPH # 1.7 10^3/uL (1.5-5.0); LYMPH % 19.4 % (24.0-44.0); MEAN CORPUSCULAR HEMOGLOBIN 24.3 pg (27.0-33.0); MEAN CORPUSCULAR HGB CONC 29.9 g/dl (32.0-36.5); MEAN CORPUSCULAR VOLUME 81.3 fl (80.0-96.0); MONO # 0.6 10^3/uL (0.0-0.8); MONO % 6.7 % (0.0-5.0); NEUTROPHILS # 6.2 10^3/uL (1.5-8.5); NEUTROPHILS % 71.8 % (36.0-66.0); PLATELET COUNT, AUTOMATED 344 10^3/uL (150-450); RED BLOOD COUNT 4.32 10^6/uL (4.00-5.40); WHITE BLOOD COUNT 8.7 10^3/uL (4.0-10.0)
[2019-12-28 16:45] LABS: ALBUMIN 3.6 GM/DL (3.2-5.2); ALT/SGPT 17 U/L (12-78); BILIRUBIN,TOTAL 0.2 MG/DL (0.2-1.0); BLOOD UREA NITROGEN 22 MG/DL (7-18); CALCIUM LEVEL 9.6 MG/DL (8.8-10.2); CARBON DIOXIDE LEVEL 28 MEQ/L (21-32); CHLORIDE LEVEL 105 MEQ/L (98-107); CREATININE FOR GFR 0.86 MG/DL (0.55-1.30); GLOMERULAR FILTRATION RATE > 60.0 (>45); GLUCOSE, FASTING 63 MG/DL (70-100); SODIUM LEVEL 139 MEQ/L (136-145); TOTAL PROTEIN 6.6 GM/DL (6.4-8.2)
[2019-12-30 16:08] LABS: EBV VIRAL CAPSID AG IgG 68.6 U/mL (0.0-17.9); EBV VIRAL CAPSID AG IgM <36.0 U/mL (0.0-35.9)
== END ==
LOC: M WUC 14:01
PROVIDERS: ATTEND Physician Assistant
DX: R53.83 Other fatigue (principal); R06.02 Shortness of breath; E11.9 Type 2 diabetes mellitus without complications

== ENCOUNTER 2020-01-18 15:49 | Emergency (ER) | payer MEDICARE, OTHER ==
[~2020-01-18] VITALS: Ht 152.4 cm; Wt 80.9 kg
[2020-01-18 16:54] LABS: BASO % 0.5 % (0.0-1.0); EOS # 0.1 10^3/uL (0.0-0.5); EOS % 1.2 % (0.0-3.0); HEMATOCRIT 33.3 % (36.0-47.0); HEMOGLOBIN 9.8 g/dl (12.0-15.5); LYMPH # 1.1 10^3/uL (1.5-5.0); LYMPH % 28.3 % (24.0-44.0); MEAN CORPUSCULAR HEMOGLOBIN 23.6 pg (27.0-33.0); MEAN CORPUSCULAR HGB CONC 29.4 g/dl (32.0-36.5); MONO # 0.6 10^3/uL (0.0-0.8); MONO % 13.6 % (0.0-5.0); NEUTROPHILS # 2.3 10^3/uL (1.5-8.5); NEUTROPHILS % 56.2 % (36.0-66.0); PLATELET COUNT, AUTOMATED 296 10^3/uL (150-450); RED BLOOD COUNT 4.16 10^6/uL (4.00-5.40)
--- NOTE | 2020-01-18 17:00 | REP ---
INDICATION: Syncope/near-syncope COMPARISON: 08/30/2019 TECHNIQUE: Portable AP view of the chest FINDINGS: The mediastinum and cardiac silhouette are stable and within normal limits for portable technique. The lung vaughn are clear without acute consolidation, effusion, or pneumothorax. Skeletal structures are intact. IMPRESSION: No acute cardiopulmonary process appreciated. <Electronically signed by Giacomo Da Silva > 01/18/20 [id number]
[2020-01-18 17:03] LABS: INR 0.91; PROTHROMBIN TIME 12.4 SECONDS (12.5-14.3)
[2020-01-18 17:04] LABS: PARTIAL THROMBOPLASTIN TIME 28.3 SECONDS (24.2-38.5)
[2020-01-18 17:18] LABS: OSMOLALITY SERUM 291 MOSM/KG (280-301)
[2020-01-18 17:27] LABS: ACETONE/KETONE 0.75 MG/DL (<2.81); ALT/SGPT 18 U/L (12-78); BILIRUBIN,DIRECT < 0.1 MG/DL (0.0-0.2); BILIRUBIN,TOTAL 0.2 MG/DL (0.2-1.0); CK-MB VALUE MASS 1.5 NG/ML (<3.6); CPK CREATINE PHOSPHOKINASE 120 U/L (26-192); LIPASE 201 U/L (73-393); MAGNESIUM LEVEL 1.8 MG/DL (1.8-2.4); MB/CK RELATIVE INDEX 1.25 (< OR =4); TOTAL PROTEIN 6.3 GM/DL (6.4-8.2); TROPONIN I < 0.02 NG/ML (< 0.10)
[2020-01-18] MEDS ORDERED: HumaLOG INSULIN (NovoLOG) PER UNIT SC STA (17:33)
[2020-01-18 17:49] LABS: HEMOGLOBIN A1c 7.7 %
--- NOTE | 2020-01-18 18:14 | ECGEPIP ---
[facility] - ED Test Date: 2020-01-18 Pat Name: SARMAD HERNANDEZ Department: Room: - Gender: Female Network Support Analyst: brittany : 1950 Requested By: ALONSO ETIENNE Order Number: [id number] Reading MD: Alina Suh Measurements Intervals [place] Rate: 65 P: -68 [place]: 127 QRS: 81 QRSD: 86 T: 9 QT: 409 QTc: 427 Interpretive Statements JUNCTIONAL RHYTHM - baseline artifact limits intepretation delayed r progression ABNORMAL RHYTHM ECG Electronically Signed on 01-18-2020 18:13:54 EST by Alina Suh
[2020-01-18] MEDS ORDERED: DEXTROSE 50% 50 ML SYRINGE IV STA (21:32)
[2020-01-18 23:04] LABS: CK-MB VALUE MASS 1.1 NG/ML (<3.6); CPK CREATINE PHOSPHOKINASE 91 U/L (26-192); MB/CK RELATIVE INDEX 1.21 (< OR =4); TROPONIN I < 0.02 NG/ML (< 0.10)
[2020-01-18 23:30] VITALS: BP 125/60
--- NOTE | 2020-01-19 06:38 | ECGEPIP ---
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
== END 2020-01-18 23:52 | disposition home or self-care (01) ==
LOC: M ED 15:49
DX: E11.65 Type 2 diabetes mellitus with hyperglycemia (principal); D64.9 Anemia, unspecified; R94.31 Abnormal electrocardiogram [ECG] [EKG]; J45.909 Unspecified asthma, uncomplicated; I10 Essential (primary) hypertension; E78.00 Pure hypercholesterolemia, unspecified; F33.9 Major depressive disorder, recurrent, unspecified; F41.9 Anxiety disorder, unspecified; K21.9 Gastro-esophageal reflux disease without esophagitis; Z79.52 Long term (current) use of systemic steroids; Z79.899 Other long term (current) drug therapy; Z79.82 Long term (current) use of aspirin; Z79.4 Long term (current) use of insulin; Z91.048 Other nonmedicinal substance allergy status; Z87.891 Personal history of nicotine dependence; Z82.49 Family history of ischemic heart disease and other diseases of the circulatory system

== ENCOUNTER → 2020-01-21 | Outpatient (CLI) | payer MEDICARE, OTHER ==
--- NOTE | 2020-01-21 17:20 | REP ---
INDICATION: ORBIT AND HAND CONTUSION COMPARISON: None. TECHNIQUE: AP, lateral, bilateral oblique views right hand. FINDINGS: Fracture at the base of the 5th proximal phalanx with overlying soft tissue swelling. IMPRESSION: Comminuted minimally displaced fracture at the base of the 5th proximal phalanx. <Electronically signed by Giacomo Da Silva > 01/21/20 [id number]
--- NOTE | 2020-01-21 17:21 | REP ---
INDICATION: ORBIT AND HAND CONTUSION. COMPARISON: None. TECHNIQUE: Six views of the orbits. FINDINGS: Osseous structures appear intact and no obvious acute fractures appreciated. No foreign body. IMPRESSION: No definite acute fracture identified. If the patient remains symptomatic consider CT for further investigation. <Electronically signed by Giacomo Da Silva > 01/21/20 [id number]
== END ==
LOC: M WUC 16:45
PROVIDERS: ATTEND Physician Assistant
DX: S62.646A Nondisplaced fracture of proximal phalanx of right little finger, initial encounter for closed fracture (principal); S00.03XA Contusion of scalp, initial encounter; X58.XXXA Exposure to other specified factors, initial encounter; Y92.9 Unspecified place or not applicable

== ENCOUNTER → 2020-02-27 | Outpatient (CLI) | payer MEDICARE, OTHER ==
[2020-02-27 12:08] LABS: BASO % 0.6 % (0.0-1.0); EOS # 0.2 10^3/uL (0.0-0.5); EOS % 3.2 % (0.0-3.0); HEMATOCRIT 36.6 % (36.0-47.0); HEMOGLOBIN 10.9 g/dl (12.0-15.5); LYMPH # 2.3 10^3/uL (1.5-5.0); MEAN CORPUSCULAR HEMOGLOBIN 24.2 pg (27.0-33.0); MEAN CORPUSCULAR HGB CONC 29.8 g/dl (32.0-36.5); MEAN CORPUSCULAR VOLUME 81.3 fl (80.0-96.0); MONO # 0.4 10^3/uL (0.0-0.8); MONO % 6.2 % (0.0-5.0); NEUTROPHILS # 3.3 10^3/uL (1.5-8.5); NEUTROPHILS % 52.7 % (36.0-66.0); PLATELET COUNT, AUTOMATED 356 10^3/uL (150-450); WHITE BLOOD COUNT 6.3 10^3/uL (4.0-10.0)
[2020-02-27 12:43] LABS: CREATININE FOR GFR 1.05 MG/DL (0.55-1.30); GLOMERULAR FILTRATION RATE 55.3 (>45); PERCENT SATURATION 6.9 % (13.2-45.0)
== END ==
LOC: M LAB 11:23
PROVIDERS: ATTEND Internal Medicine Gastroenterology
DX: D50.9 Iron deficiency anemia, unspecified (principal)

== ENCOUNTER 2020-02-29 16:41 | Emergency (ER) | payer MEDICARE, OTHER ==
[~2020-02-29] VITALS: Ht 152.4 cm; Wt 82.9 kg
[2020-02-29] MEDS ORDERED: NS 500 ML IV ONE (20:00)
[2020-02-29] MEDS ORDERED: ACETAMINOPHEN 500 MG TAB PO ONE (20:00)
[2020-02-29 21:30] LABS: VENOUS BASE EXCESS 0.4 (-2.0-2.0); VENOUS HCO3 26.1 MEQ/L (23.0-27.0); VENOUS O2 SATURATION 73.6 % (60.0-80.0); VENOUS PARTIAL PRESSURE CO2 46.5 mmHg (38.0-50.0); VENOUS PARTIAL PRESSURE O2 41.9 mmHg (30.0-50.0); VENOUS PH 7.367 UNITS (7.330-7.430); VENOUS STANDARD HCO3 24.4 MEQ/L; VENOUS TOTAL CO2 27.5 MEQ/L (24.0-28.0)
[2020-02-29 21:32] LABS: BASO % 0.6 % (0.0-1.0); EOS # 0.2 10^3/uL (0.0-0.5); EOS % 3.1 % (0.0-3.0); HEMATOCRIT 37.1 % (36.0-47.0); HEMOGLOBIN 10.7 g/dl (12.0-15.5); LYMPH # 2.9 10^3/uL (1.5-5.0); LYMPH % 44.8 % (24.0-44.0); MEAN CORPUSCULAR HEMOGLOBIN 23.5 pg (27.0-33.0); MEAN CORPUSCULAR HGB CONC 28.8 g/dl (32.0-36.5); MEAN CORPUSCULAR VOLUME 81.4 fl (80.0-96.0); MONO # 0.5 10^3/uL (0.0-0.8); NEUTROPHILS # 2.8 10^3/uL (1.5-8.5); NEUTROPHILS % 44.5 % (36.0-66.0); PLATELET COUNT, AUTOMATED 357 10^3/uL (150-450); RED BLOOD COUNT 4.56 10^6/uL (4.00-5.40); WHITE BLOOD COUNT 6.4 10^3/uL (4.0-10.0)
[2020-02-29 22:00] LABS: ALBUMIN 3.7 GM/DL (3.2-5.2); ALT/SGPT 26 U/L (12-78); BILIRUBIN,DIRECT < 0.1 MG/DL (0.0-0.2); BILIRUBIN,TOTAL 0.3 MG/DL (0.2-1.0); BLOOD UREA NITROGEN 22 MG/DL (7-18); CARBON DIOXIDE LEVEL 29 MEQ/L (21-32); CHLORIDE LEVEL 97 MEQ/L (98-107); CREATININE FOR GFR 1.12 MG/DL (0.55-1.30); GLOMERULAR FILTRATION RATE 51.3 (>45); GLUCOSE, FASTING 393 MG/DL (70-100); POTASSIUM SERUM 5.1 MEQ/L (3.5-5.1); SODIUM LEVEL 131 MEQ/L (136-145); TOTAL PROTEIN 6.5 GM/DL (6.4-8.2)
[2020-02-29 22:53] VITALS: BP 131/68
== END 2020-02-29 22:53 | disposition home or self-care (01) ==
LOC: M ED 16:41
DX: Z11.52 Encounter for screening for COVID-19 (principal); E11.65 Type 2 diabetes mellitus with hyperglycemia; Z20.822 Contact with and (suspected) exposure to COVID-19; R05 Cough; M79.10 Myalgia, unspecified site; R06.02 Shortness of breath; R51.9 Headache, unspecified; R07.1 Chest pain on breathing; I10 Essential (primary) hypertension; E78.5 Hyperlipidemia, unspecified; J45.909 Unspecified asthma, uncomplicated; K21.9 Gastro-esophageal reflux disease without esophagitis; F41.9 Anxiety disorder, unspecified; F32.9 Major depressive disorder, single episode, unspecified; Z87.01 Personal history of pneumonia (recurrent); Z79.82 Long term (current) use of aspirin; Z79.4 Long term (current) use of insulin; Z79.899 Other long term (current) drug therapy; Z91.89 Other specified personal risk factors, not elsewhere classified

== ENCOUNTER 2020-03-13 16:44 | Emergency (ER) | payer MEDICARE, OTHER ==
[~2020-03-13 16:44] MED LIST changes: +LISI10TA22 PO; -LISI10TA4 PO
[2020-03-13] MEDS ORDERED: FERR325T16 (17:18)
--- OUTSIDE RECORDS SUMMARY | 2020-03-13 17:59 | CCD | Continuity of Care Document ---
Author Author Elsy HUNT PA-C Organization Unknown Address [address] [place] [address] Phone [phone] Care Team Providers Care Manager Business Information Name Role Phone Edgar Ross AUTM [phone] Jamison Quiros MD AUTM [phone] Problems Active Problems Provider Date Type 2 diabetes mellitus Onset: 08/09/19 15 Social History Type Date Description Comments Sex Unknown ETOH Use Occasionally consumes alcohol Tobacco Use Start: Unknown Patient is a current smoker, smo kes every day Allergies, Adverse Reactions, Alerts Active Allergies Reaction Severity Comments Date NKDA 08/08/2014 Tape 01/22/2020 Medications Active Medications SIG Qnty Indications Ordering Provide r Date Levemir Flextouch 10 0Unit/ML Solution Pen-Inject inject 40 units subcutaneously once daily 45units Sabrina Borden, CASEY 11/14/2015 Pioglitazone HCL 45mg Tablets 1 by mouth every day 90tabs Adrienne Bergman, DO 08/08/2014 Levemir 35Unit/ML Solution inject 25 units under the skin in the morning and 24 units at bedtime maximum daily dose = 70 units Unknown Magnesium 400mg Capsules ever y day Unknown Calcium 600+D 551-394pg-Pims Table ts 1 by mouth twice a day Unknown Lovastatin 40mg Tablets take one tablet by mouth once daily at bedtime Unknown Omeprazole 40mg Capsules DR 1 by mouth every day Unknown Lisinopril 10mg Tablets 1 by mouth every day Unknown Metformin HCL 500mg Tablets 1 by mouth twice a day Unknown Aspirin Adult Low Dose 81mg Tablet s DR every day Unknown Klor-Con M10 10Meq Tablets ER Unknown Indapamide 2.5mg Tablets take one tablet by mouth twice a day Unknown Immunizations Description No Information Available Vital Signs Date Vital Result Comment 02/27/2020 10:55am Body Temperature 96.8 F 01/22/2020 5:53pm Body Temperature 97.2 F Height 60 inches 5'0" Weight 186.50 lb BMI (Body Mass Index) 36.4 kg/m2 Results Description No Information Available Procedures Date Code Description Status 02/27/2020 04904 X-Ray Finger(S) Two Views Comple Quality Systems Description No Information Available Encounters Type Date Location Provider Dx Diagnosis Office Visit 01/22/2020 5:45p [place] ERIK Dowd S62.646 A Nondisp fx of proximal phalanx of right little finger, init Assessments Date Code Description Provider 02/27/2020 S62.646D Nondisplaced fractur e of proximal phalanx of right little finger, subsequent encounter for fracture with routine healing Christophe Hunt PA-C 01/22/2020 S62.646A Nondisplaced fractur e of proximal phalanx of right little finger, initial encounter for closed fracture ERIK Dowd Plan of Treatment 02/27/2020 - Christophe Hunt PA-C* S62.646D Nondisplaced fracture of proximal phalanx of right little finger, subsequent encounter for fracture with routine healing* Follow up:* in 2 weeks for rt pinky recheck with bms Functional Status Description No Information Available Mental Status Description No Information Available Referrals Description No Information Available
--- OUTSIDE RECORDS SUMMARY | 2020-03-13 17:59 | CCD | Continuity of Care Document ---
Author Author Elsy READ DPDarrius Organization Unknown Address [address] [place] [address], [address] [place] [address] Phone [phone] Care Team Providers Care Geriatric Care Manager Name Role Phone Jamison Quiros M.D. [phone] Problems Active Problems Provider Date Acquired hallux valgus Preet Read DPM Onset: 3 Onychomycosis Ricco Read DPM Onset: 12/20/2018 Type 1 diabetes mellitus Ricco Read DPM Onset: 019 Corns and callosities Ricco Read DPM Onset: 10/24/2019 Social History Type Date Description Comments Sex Unknown ETOH Use Has consumed alcohol in the past was heavy beer drinker until 10 years ago , now only has o ccasional beer, maybe once a weekend Tobacco Use Start: Unknown End: Unknown Patient is a former smoker hx 30 year hx off and on smoking?<1ppd quit 2002 Allergies, Adverse Reactions, Alerts Active Allergies Reaction Severity Comments Date Tape red granger, rash 02/02/2013 Medications Active Medications SIG Qnty Indications Ordering Provide r Date Actos Unknown Glipizide Unknown Levemir Flexpen Unknown 0 Omeprazole Unknown Indapamide Unknown Calcium 1200 Unknown Pioglitazone HCL Unknown 00 Afluria PF 3803-2214 Unknown Immunizations Description No Information Available Vital Signs Date Vital Result Comment 07/13/2014 10:55am Pain Level 0 02/02/2013 2:18pm Height 53 inches 4'5" Weight 150.00 lb BP Systolic 125 mmHg BP Diastolic 65 mmHg Heart Rate 75 /min BMI (Body Mass Index) 37.5 kg/m2 Results Description No Information Available Procedures Date Code Description Status 12/28/2019 79125 Debridement 6-10 Nails Electric Completed 10/18/2019 20558 Debridement 6-10 Nails Electric Completed 10/18/2019 51463 Paring/Cutting Benign Single Les n Completed 08/10/2019 45247 Debridement 6-10 Nails Electric Completed 08/10/2019 36864 Paring/Cutting Benign Single Les n Completed Medical Devices Description No Information Available Encounters Description No Information Available Assessments Date Code Description Provider 12/28/2019 B35.1 Tinea unguium Ricco Read, DAVIEM 12/28/2019 E10.59 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 Ricco Read, SIOBHAN 12/06/2019 E10.59 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 Ricco Read, DAVIEM 10/18/2019 B35.1 Tinea unguium Ricco Read, DAVIEM 10/18/2019 E10.59 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 Ricco Read, DAVIEM 10/18/2019 L84 Corns and callosities Ricco Read, DPM 08/10/2019 B35.1 Tinea unguium Ricco Read, DAVIEM 08/10/2019 E10.59 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 Ricco Read, DAVIEM 08/10/2019 L84 Corns and callosities Ricco Read DPM Plan of Treatment Future Appointment(s):* 03/08/2020 10:00 am - Ricco Read DPM at [place] [facility] Functional Status Description No Information Available Mental Status Description No Information Available Referrals Description No Information Available
--- OUTSIDE RECORDS SUMMARY | 2020-03-13 17:59 | CCD | Continuity of Care Document ---
Author Author Elsy HUNT PA-C Organization Unknown Address [address] [place] [address] Phone [phone] Care Team Providers Care Optimization Engineer Name Role Phone Edgar Ross AUTM [phone] Jamison Quiros MD AUTM [phone] Problems Active Problems Provider Date Type 2 [...] Capsules ever y day Unknown Calcium 600+D [id number]-Nrgc Table ts 1 by mouth twice a [...] Available Vital Signs Date Vital Result Comment 03/12/2020 10:52am Body Temperature 96.9 F 02/27/2020 10:55am Body Temperature 96.8 F Results Description No Information Available Procedures Date Code Description Status 03/12/2020 28264 X-Ray Finger(S) Two Views Comple nena 02/27/2020 77185 X-Ray Finger(S) Two Views Comple nena Medical Devices Description No Information Available Encounters Type Date Location Provider Dx Diagnosis Office Visit 02/27/2020 10:30a [place] Christophe Hunt PA-C S6 2.646D Nondisp fx of prox phalanx of r lit fngr, 7thD Office Visit 01/22/2020 5:45p [place] ERIK Dowd S62.646 A Nondisp fx of proximal phalanx of right little finger, init Assessments Date Code Description Provider 03/12/2020 S62.646D Nondisplaced fractur e of proximal phalanx of right little finger, subsequent encounter for fracture with routine healing Christophe Hunt PA-C 02/27/2020 S62.646D Nondisplaced fractur e of proximal phalanx of right little finger, subsequent encounter for fracture with routine healing Christophe Hunt PA-C 01/22/2020 S62.646A Nondisplaced fractur e of proximal phalanx of right little finger, initial encounter for closed fracture ERIK Dowd Plan of Treatment No Information Available Functional Status Description No Information Available Mental Status Description No Information Available Referrals Description No Information Available
--- OUTSIDE RECORDS SUMMARY | 2020-03-13 17:59 | CCD | Continuity of Care Document ---
Author Author Elsy FONSECA [place] Organization Unknown Address [address] [place] [address] [place] [address] Phone [phone] Care Team Providers Care Label Maker Name Role Phone [facility] AUTM [phone] Problems Active Problems Provider Date Type 2 diabetes mellitus Onset: 06/13/19 16 Social History Type Date Description Comments Sex Unknown ETOH Use Has consumed alcohol in the past Tobacco Use Start: Unknown End: Unknown Patient is a former smoker 2015 Smoking Status Reviewed: 01/21/20 Patient is a former smoker 20 16 Allergies, Adverse Reactions, Alerts Active Allergies Reaction Severity Comments Date Medical Tape 01/21/2020 Inactive Allergies NKDA 06/13/2015 Medications Active Medications SIG Qnty Indications Ordering Provide r Date Levemir Flextouch Unknown 000 Combivent Respimat Unknown Indapamide 1.25mg Tablets neha ry day Unknown Magnesium Oxide (Antacid) Unknown Pioglitazone HCL 45mg Tablets every day Unknown Lisinopril 10mg Tablets 1 by mouth every day Unknown Omeprazole 40mg Capsules DR 1 by mouth every day Unknown Ec-[address] every day Unknown Calcium 1000 + D Unknown 00 Potassium Chloride ER 10Meq Tablet s ER every day Unknown Metformin HCL 500mg Tablets three times a day Unknown Lovastatin 40mg Tablets twice a day Unknown Klor-Con Unknown Immunizations Description No Information Available Vital Signs Date Vital Result Comment 01/21/2020 4:32pm BP Systolic 108 mmHg BP Diastolic 56 mmHg Heart Rate 75 /min Respiratory Rate 18 /min O2 % BldC Oximetry 96 % Body Temperature 97.0 F Weight 185.00 lb Pain Level 6 04/11/2018 2:03pm BP Systolic 120 mmHg BP Diastolic 73 mmHg Heart Rate 72 /min Respiratory Rate 18 /min O2 % BldC Oximetry 97 % Body Temperature 98.6 F Weight 185.00 lb Height 59 inches 4'11" BMI (Body Mass Index) 37.4 kg/m2 Pain Level 6 Results Description No Information Available Procedures Description No Information Available Medical Devices Description No Information Available Encounters Type Date Location Provider Dx Diagnosis Office Visit 01/21/2020 1:15p [facility] ERIK Saleem S62 .644A Nondisp fx of proximal phalanx of right ring finger, init S60.221A Contusion of right hand, ini tial encounter S00.03xA Contusion of scalp, initial encounter Assessments Date Code Description Provider 01/21/2020 S62.644A Nondisplaced fractur e of proximal phalanx of right ring finger, initial encounter for closed fracture ERIK Saleem 01/21/2020 S60.221A Contusion of right hand, initial encounter ERIK Saleem 01/21/2020 S00.03xA Contusion of scalp, initial enco unter ERIK Saleem Plan of Treatment No Information Available Functional Status Description No Information Available Mental Status Description No Information Available Referrals Refer to Reason for Referral Status Appt Date Rhett Knowles MD [facility] [address] [place] [address] [phone]
--- OUTSIDE RECORDS SUMMARY | 2020-03-13 17:59 | CCD | Continuity of Care Document ---
Author Author Elsy READ DPDarrius Organization Unknown Address [address] [place] [address], [address] [place] [address] Phone [phone] Care Team Providers Care Mountain Bike Guide Name Role Phone Jamison Quiros M.D. [phone] Problems Active Problems Provider Date Acquired hallux [...] Unknown Pioglitazone HCL Unknown 00 Afluria PF 2966-7282 Unknown Immunizations Description No Information Available Vital Signs Date Vital Result Comment 07/13/2014 10:55am Pain Level 0 02/02/2013 2:18pm Height 53 inches 4'5" Weight 150.00 lb BP Systolic 125 mmHg BP Diastolic 65 mmHg Heart Rate 75 /min BMI (Body Mass Index) 37.5 kg/m2 Results Description No Information Available Procedures Date Code Description Status 12/28/2019 14036 Debridement 6-10 Nails Electric Completed 10/18/2019 88029 Debridement 6-10 Nails Electric Completed 10/18/2019 72518 Paring/Cutting Benign Single Les n Completed Medical Devices Description No Information Available Encounters Description No Information Available Assessments Date Code Description Provider 12/28/2019 B35.1 Tinea unguium Ricco Read DPM 12/28/2019 E10.59 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 Functional Status Description No Information Available Mental Status Description No Information Available Referrals Description No Information Available
--- OUTSIDE RECORDS SUMMARY | 2020-03-13 17:59 | CCD | Continuity of Care Document ---
Author Author Elsy FONSECA [place] Organization Unknown Address [address] [place] [address] [place] [address] Phone [phone] Care Team Providers Care Nurse Informatics Educator Name Role Phone [facility] AUTM [phone] Problems Active Problems Provider Date Type 2 [...] Referral Status Appt Date Rhett Knowles MD [facility] [address] [place] [address] [phone]
--- OUTSIDE RECORDS SUMMARY | 2020-03-13 17:59 | CCD | Continuity of Care Document ---
Author Author Elsy PARMAR PA Organization Unknown Address [address] [place] [address] Phone [phone] Care Team Providers Care Adjunct Philosophy Faculty Name Role Phone Edgar Ross AUTM [phone] Jamison Quiros MD AUTM [phone] Problems Active Problems Provider Date Type 2 [...] 40 units subcutaneously once daily 45units Sabrina Borden FNP 11/14/2015 Pioglitazone HCL 45mg Tablets 1 by mouth every day 90tabs Adrienne Bergman, 08/08/2014 Levemir 35Unit/ML Solution inject 25 units under the skin in the morning and 24 units at bedtime maximum daily dose = 70 units Unknown Magnesium 400mg Capsules ever y day Unknown Calcium 600+D [id number]-Xoxf Table ts 1 by mouth twice a [...] Available Vital Signs Date Vital Result Comment 01/22/2020 5:53pm Body Temperature 97.2 F Height 60 inches 5'0" Weight 186.50 lb BMI (Body Mass Index) 36.4 kg/m2 11/18/2017 11:01am Body Temperature 98.3 F Height 60 inches 5'0" Weight 176.25 lb BMI (Body Mass Index) 34.4 kg/m2 Results Description No Information Available Procedures Description No Information Available Medical Devices Description No Information Available Encounters Type Date Location Provider Dx Diagnosis Office Visit 01/22/2020 5:45p [place] ERIK Dowd S62.356 A Nondisp fx of shaft of fifth MC bone, right hand, init Assessments Date Code Description Provider 01/22/2020 S62.356A Nondisplaced fractur e of shaft of fifth metacarpal bone, right hand, initial encounter for closed fracture ERIK Dowd Plan of Treatment 01/22/2020 - ERIK Dowd* S62.356A Nondisplaced fracture of shaft of fifth metacarpal bone, right hand, initial encounter for closed fracture* Follow up:* 2 weeks right 5th finger xray with p.a per [facility] Functional Status Description No Information Available Mental Status Description No Information Available Referrals Description No Information Available
--- OUTSIDE RECORDS SUMMARY | 2020-03-13 17:59 | CCD | Continuity of Care Document ---
Author Author Elsy HUNT PA-C Organization Unknown Address [address] [place] [address] Phone [phone] Care Team Providers Care Servomechanism Designer Name Role Phone Edgar Ross AUTM [phone] Jamison Quiros MD AUTM [phone] Problems Active Problems Provider Date Type 2 [...] Capsules ever y day Unknown Calcium 600+D 214-373xm-Fxul Table ts 1 by mouth twice a [...] Available Procedures Date Code Description Status 02/27/2020 97049 X-Ray Finger(S) Two Views Comple Arcarios Description No Information Available Encounters Type Date Location Provider Dx Diagnosis Office Visit 02/27/2020 10:30a Caprice Hunt PA-C S6 2.646D Nondisp fx of prox phalanx of r lit fngr, 7thD Office Visit 01/22/2020 5:45p ERIK Romero S62.646 A Nondisp fx of proximal phalanx of right little finger, init Assessments Date Code Description Provider 02/27/2020 S62.646D Nondisplaced fractur e of proximal phalanx of right little finger, subsequent encounter for fracture with routine healing Christophe Hunt PA-C 01/22/2020 S62.646A Nondisplaced fractur e of proximal phalanx of right little finger, initial encounter for closed fracture ERIK Dowd Plan of Treatment Future Appointment(s):* 03/12/2020 10:30 am - Christophe Hunt PA-C at [place] 02/27/2020 - Christophe Hunt PA-C* S62.646D Nondisplaced fracture of proximal phalanx of right little finger, subsequent encounter for fracture with routine healing* Follow up:* in 2 weeks for rt pinky recheck with bms Functional Status Description No Information Available Mental Status Description No Information Available Referrals Description No Information Available
--- OUTSIDE RECORDS SUMMARY | 2020-03-13 17:59 | CCD | Continuity of Care Document ---
Author Author Elsy BROWN [facility] Unknown Address 3 [facility] 3 [place] [address] Phone [phone] Problems Active Problems Provider Date Essential hypertension Jamison Quiros M.D. Onset: 2018 Hyperlipidemia Jamison Quiros M.D. Onset: 9 Diabetes mellitus Jamison Quiros M.D. Onset: 9 Chronic obstructive lung disease Jamison Quiros M.D. Ons et: 07/08/2018 Social History Type Date Description Comments Sex Unknown ETOH Use Quit 6 yrs ago Tobacco Use Start: Unknown End: Unknown Patient is a former smoker Cigarettes - Quit 9 1/2 yrs ago Recreational Drug Use Denies Drug Use Allergies, Adverse Reactions, Alerts Active Allergies Reaction Severity Comments Date Tape rash 07/08/2018 Medications Active Medications SIG Qnty Indications Ordering Provide r Date Blood Glucose Monitoring System W/Device Kit use up to 4 times a day and as needed as directed 1units E11.9 Jamison Quiros M.D. 12/06/2019 SM Aspirin Adult Low Strength 81mg Tablets DR Take One Tablet By Mouth Every Day 90tabs Jamison Owens M.D. 11/13/2019 Magnesium Oxide 400mg Tablets Take One Tablet By Mouth Every Day 90tabs Jamison Quiros M.D . 10/23/2019 Unifine Pentips Plus 31G X 5 mm Mi sc Use To Inject Levemir 100units Jamison Quiros M.D. 2019 Onetouch Delica Plus Lancets Extra Fine 33G Plus 33G Misc Test Two Times A Day as Needed 200units Jamison Patino M.D. 10/23/2019 Mupirocin 2% Ointment apply to arm lesions twice daily 44gm Jamison Quiros M.D. 10/13/19 20 Onetouch Verio Strips Use To Test Blood Sugar Twice A Day And as Needed 200units Jamison Quiros M.D. 07/07/2019 Duloxetine HCL 60mg Caps DR Elsie 1 by mouth every day 90Jamison Garcia M.D. 05/17/19 20 Pantoprazole Sodium 40mg Tablets D R Take One Tablet By Mouth Every Day 90taJamison Gómez M.D. 03/08/2019 Dulera 100-5mcg/Act Aerosol 2 inhalation by mouth twice a day, rinse mouth afterward. 26.4gm Jackson Jamison blair M.D. 07/08/2018 Indapamide 1.25mg Tablets Take One Tablet By Mouth Every Day 90taJamison Gómez M.D. 07/08 Pioglitazone HCL 45mg Tablets Take One Tablet By Mouth Daily 90taJamison Gómez M.D. Lovastatin 40mg Tablets Take Two Tablets By Mouth Every Day Maximum Daily Dose = 2 Tablets 180taJamison Gómez M.D. Lisinopril 10mg Tablets Take One Tablet By Mouth Every Day 90taJamison Gómez M.D. 00 Metformin HCL 1000mg Tablets take one tablet by mouth every day 90taJamison Gómez M.D . Potassium Chloride ER 10Meq Capsul es ER Take One Capsule By Mouth Every Day 90Jere Garcia M.D. Levemir Flextouch 10 0Unit/ML Solution Pen-Inject Inject 55 Units Under The Skin Every Day 36units Jamison Quiros M.D. Combivent Respimat 20-100mcg/Act A erosol inhale one puff as needed 12gm Jamison Quiros M.D . Immunizations CPT Code Status Date Vaccine Lot # [id number] Given 11/06/2019 Influenza Virus Vaccine, Quadrivalent, Slit Virus, Im Use 3Y & Up [id number] Given 01/04/2019 Influenza Virus Vaccine, Quadrivalent, Slit Virus, Im Use 3Y & Up [id number] Vital Signs Date Vital Result Comment 11/22/2019 1:51pm BP Systolic 124 mmHg BP Diastolic 70 mmHg Body Temperature 98.5 F Heart Rate 72 /min Respiratory Rate 16 /min Height 60.5 inches 5'0.50" Weight 188.00 lb Motley Body Weight 100 lb BMI (Body Mass Index) 36.1 kg/m2 O2 % BldC Oximetry 97 % 11/06/2019 9:49am BP Systolic 122 mmHg BP Diastolic 66 mmHg Body Temperature 98.2 F Heart Rate 70 /min Respiratory Rate 14 /min Height 60.5 inches 5'0.50" Weight 191.00 lb Motley Body Weight 100 lb BMI (Body Mass Index) 36.7 kg/m2 O2 % BldC Oximetry 97 % Results Test Acquired Date Facility Test Result H/L Range Note Urinalysis 12/31/2019 [place] [address] [phone] Urinalysis (SEE NOTE) 1, 2 Source Clean Catch Color yellow Normal: Yellow Clarity clear Normal: Clear Spec Mobile 1.010 1.001 - 1.030 pH 6.5 5 - 9 Glucose 250 Abnormal Normal: Negative Bilirubin NEG Normal: Negative Ketone NEG Normal: Negative Protein NEG Normal: Negative Nitrite NEG Normal: Negative Blood NEG Normal: Negative Leuk Est 25 Normal: Negative Urobilinogen NOR less than 1.0 mg/dL Microscopic See Below WBC 1 - 3 Normal: None Seen Epithelial FEW Normal: None Seen Laboratory test finding 12/31/2019 [facility] [place] [address] [phone] D-Dimer <0.27 ug/mL 0.27 - 0.50 CBC W/Automated Diff 12/31/2019 [place] [address] [phone] CBC W/Automated Diff (SEE NOTE) 3 WBC 6.5 10^3/uL 4.2 - 11.0 RBC 4.15 10^6/uL Low 4.20 - 5.40 Hemoglobin 10.1 g/dL Low 12.0 - 16.0 Hematocrit 33.3 % Low 37.0 - 47.0 MCV 80.2 fL Low 81.0 - 101 MCH 24.3 pg Low 27.0 - 34.0 MCHC 30.3 g/dL Low 31.0 - 36.0 RDW 17.0 % High 11.5 - 14.5 Platelets 328 10^3/uL 150 - 450 MPV 10.2 fL 7.4 - 10.4 Neut 60.0 % 37.0 - 80.0 Lymph 28.0 % 25.0 - 40.0 Taos 7.4 % 3.0 - 8.0 Eos 3.9 % 0.0 - 7.0 Baso 0.5 % 0.0 - 2.5 %Ig 0.2 % High 0.0 - 0.0 %NRBC 0.0 % 0.0 - 0.0 #Neut 3.88 10^3/uL 2.00 - 6.90 #Lymph 1.81 10^3/uL 0.60 - 3.40 #Taos 0.48 10^3/uL 0.00 - 0.90 #Eos 0.25 10^3/uL 0.00 - 0.70 #Baso 0.03 10^3/uL 0.00 - 0.20 #Ig 0.01 10^3/uL 0.00 - 0.10 #NRBC 0.00 10^3/uL 0.00 - 0.00 Manual Diff NOT INDICATED RBC Morph NOT INDICATED Laboratory test finding 12/31/2019 [place] [address] [phone] Troponin T <0.01 NG/ML 0.00 - 0.10 4 Pro-BNP 144 pg/mL High 0 - 125 Comprehensive Metabolic Panel 12/31/2019 [place] [address] [phone] Comprehensive Metabo (SEE NOTE) 5 Sodium 140 mEq/L 134 - 153 Potassium 4.6 mEq/L 3.6 - 5.0 Chloride 104 mEq/L 98 - 107 Co2 29 mEq/L 22 - 30 Glucose 143 mg/dL High 65 - 110 BUN 21 mg/dL 7 - 21 Creatinine 0.9 mg/dL 0.7 - 1.5 BUN/Creat 23 8 - 27 Total Protein 6.4 g/dL 6.3 - 8.2 Albumin 4.2 g/dL 3.9 - 5.0 Globulin 2.2 GM/DL Low 2.4 - 3.2 A/G Ratio 1.9 0.8 - 2.0 Calcium 9.2 mg/dL 8.4 - 10.2 Total Bili <0.7 mg/dL 0.2 - 1.3 Alkaline Phos 88 U/L 38 - 126 Sgot/Ast 17 U/L 5 - 40 SGPT/Alt 12 U/L 7 - 56 Anion Gap 7.0 mmol/L Low 8.0 - 16.0 Age 69 yrs Non-Aa GFR >60 mL/min Afr Amer GFR >60 6 CBC With Differential 12/28/2019 [facility]) [phone] White Blood Count 8.7 10 Normal 4.0-10.0 Red Blood Count 4.32 10 Normal 4.00-5.40 Hemoglobin 10.5 g/dL Low 12.0-15.5 Hematocrit 35.1 % Low 36.0-47.0 Mean Corpuscular Volume 81.3 fl Normal 80.0-96.0 Mean Corpuscular Hemoglobin 24.3 pg Low 27.0-33.0 Mean Corpuscular HGB Conc 29.9 g/dL Low 32.0-36.5 Red Cell Distribution Width 16.7 % High 11.5-14.5 Platelet Count, Automated 344 10 Normal 150-450 Neutrophils % 71.8 % High 36.0-66.0 Lymph % 19.4 % Low 24.0-44.0 Taos % 6.7 % High 0.0-5.0 Eos % 1.6 % Normal 0.0-3.0 Baso % 0.3 % Normal 0.0-1.0 Immature Granulocyte % 0.2 % Normal 0-3.0 Nucleated Red Blood Cell % 0.0 % Normal 0-0 Neutrophils # 6.2 10 Normal 1.5-8.5 Lymph # 1.7 10 Normal 1.5-5.0 Taos # 0.6 10 Normal 0.0-0.8 Eos # 0.1 10 Normal 0.0-0.5 Baso # 0.0 10 Normal 0.0-0.2 Comprehensive Metabolic Profil 12/28/2019 [facility]) [phone] Glucose, Fasting 63 mg/dL Low 70-100 Blood Urea Nitrogen 22 mg/dL High 7-18 Creatinine For GFR 0.86 mg/dL Normal 0.55-1.30 Glomerular Filtration Rate > 60.0 Normal >45 7 Sodium Level 139 mEq/L Normal 136-145 Potassium Serum 4.0 mEq/L Normal 3.5-5.1 Chloride Level 105 mEq/L Normal 98-107 Carbon Dioxide Level 28 mEq/L Normal 21-32 Anion Gap 6 mEq/L Low 8-16 Calcium Level 9.6 mg/dL Normal 8.8-10.2 Ast/Sgot 16 U/L Normal 7-37 Alt/SGPT 17 U/L Normal 12-78 Alkaline Phosphatase 88 U/L Normal 45-117 Bilirubin,Total 0.2 mg/dL Normal 0.2-1.0 Total Protein 6.6 GM/DL Normal 6.4-8.2 Albumin 3.6 GM/DL Normal 3.2-5.2 Albumin/Globulin Ratio 1.2 Normal 1.2-2.2 Laboratory test finding 12/28/2019 [facility] (Interface) [phone] Ebv Viral Capsid Ag IgM <36.0 U/mL Normal 0.0-35.9 8 U/A DIP FPA 12/28/2019 [facility] Asso ciates Color Urine YELLOW Yellow Appearance CLEAR Clear Specific Mobile 1.020 1.00-1.03 PH Urine 6.5 5.0-8.0 Glucose Urine NEG Negative Bilirubin Urine NEG Negative Ketones NEG Negative Blood Urine NEG Negative Protein Urine NEG Negative Urobilinogen .2 EU/dl 0.2-1.0 Nitrite NEG Negative Leukocytes TRACE Negative Urine Culture, Routine 12/28/2019 [facility] [place] Urine Culture, Routine Final report 9, 1 0 Result 1 No growth 11 Laboratory test finding 12/28/2019 [facility] Glucometer-[facility] 82 mg/dL 65-109 Microalb/Creat Ratio 11/06/2019 [facility]Inhouse Alb 10 mg/L 1 - 30 Creatinine, Urine 10 mg/dL 10 - 300 A/C Ratio <30 mg/g % Hemoglobin A1c 11/06/2019 [facility] [place] Hemoglobin A1c 8.0 % High 4.8-5.6 12 CMP 11/06/2019 [facility]Inhouse Glu 311 mg/dL High 70 - 110 13 BUN 18 mg/dL 8 - 23 Creat 0.9 mg/dL 0.5 - 1.0 BUN/Creatinine Ratio 21.4 CALC Na 136 mmol/L 136 - 145 K 4.2 mmol/L 3.5 - 5.1 CL 96.7 mmol/L Low 98.0 - 107.0 Co2 25.3 mmol/L 22.0 - 29.0 CA 9.5 mg/dL 8.6 - 10.2 TP 6.1 g/dL Low 6.6 - 8.7 Alb 4.2 g/dL 3.4 - 4.8 A/G Ratio 2.2 CALC Globulin 1.9 CALC Alp 95.1 U/L 35 - 129 Alt (SGPT) 9 U/L 0 - 41 Ast (Sgot) 15 U/L 0 - 40 Tbili 0.08 mg/dL 0.0 - 1.2 Osmolality-Calculated 285.2 CALC Anion Gap 18 mmol/L eGFR 76 # Calc 14 eGFR Non-Afr. Bermudian 65 # Calc 15 CBC 11/06/2019 [facility]Inhouse WBC 5.5 10E3/uL 4.1 - 10.9 RBC 4.23 10E6/uL 4.20 - 6.30 HGB 10.5 g/dL Low 12.0 - 18.0 HCT 35.2 % Low 37.0 - 51.0 MCV 83.2 fL 80.0 - 97.0 MCH 24.8 pg Low 26.0 - 32.0 MCHC 29.8 g/dL Low 31.0 - 36.0 PLT 297 10E3/uL 140 - 440 RDW-CV 15.6 % High 11.5 - 14.5 Lym% 35.5 % 10.0 - 58.5 Neut% 56.8 % 37.0 - 92.0 MXD% 7.7 % 0.1 - 24.0 Lym# 2.0 10E3/uL 0.6 - 4.1 Neut# 3.1 % 2.0 - 7.8 MXD# 0.4 10E3/uL 0.0 - 1.8 MPV 11.2 fL 9.0 - 13.0 Lipid Panel 11/06/2019 [facility]Inhouse Chol 136 mg/dL 0 - 200 Trig 109 mg/dL 40 - 200 HDL 62 mg/dL 45 - 65 LDL_C 52 Calc Low 75 - 129 Cho/HDL Ratio 2.2 CALC Laboratory test finding 09/15/2019 [facility] (Interface) [phone] Vitamin B12 Level 379 pg/mL Normal 247-911 16 Folate 11.9 NG/ML Normal >5.4 17 Ferritin 7 NG/ML Low 8-252 Total Iron Binding Capacit 09/15/2019 [facility] ical (Interface) [phone] Iron (Fe) 30 g/dL Low 50-170 Total Iron Binding Capacity 486 g/dL High 250-450 Percent Saturation 6.2 % Low 13.2-45.0 CBC With Differential 09/15/2019 [facility] (Interface) [phone] White Blood Count 5.2 10 Normal 4.0-10.0 Red Blood Count 4.05 10 Normal 4.00-5.40 Hemoglobin 10.3 g/dL Low 12.0-15.5 Hematocrit 34.0 % Low 36.0-47.0 Mean Corpuscular Volume 84.0 fl Normal 80.0-96.0 Mean Corpuscular Hemoglobin 25.4 pg Low 27.0-33.0 Mean Corpuscular HGB Conc 30.3 g/dL Low 32.0-36.5 Red Cell Distribution Width 16.2 % High 11.5-14.5 Platelet Count, Automated 290 10 Normal 150-450 Neutrophils % 52.0 % Normal 36.0-66.0 Lymph % 36.2 % Normal 24.0-44.0 Taos % 7.9 % High 0.0-5.0 Eos % 2.9 % Normal 0.0-3.0 Baso % 0.6 % Normal 0.0-1.0 Immature Granulocyte % 0.4 % Normal 0-3.0 Nucleated Red Blood Cell % 0.0 % Normal 0-0 Neutrophils # 2.7 10 Normal 1.5-8.5 Lymph # 1.9 10 Normal 1.5-5.0 Taos # 0.4 10 Normal 0.0-0.8 Eos # 0.2 10 Normal 0.0-0.5 Baso # 0.0 10 Normal 0.0-0.2 Creatinine With GFR 09/15/2019 [facility] (I nterface) [phone] Creatinine For GFR 0.93 mg/dL Normal 0.55-1.30 Glomerular Filtration Rate > 60.0 Normal >45 1 8 Laboratory test finding 09/15/2019 [facility] (Interface) [phone] Blood Urea Nitrogen 20 mg/dL High 7-18 Ua W/ Reflex To Culture 08/31/2019 [facility] (Interface) [phone] Appearance, Urine RFX CLEAR Normal Clear Color, Urine RFX STRAW Normal Yellow PH,Urine RFX 5.0 units Normal 5.0-9.0 Specific Mobile Ur Auto RFX 1.009 Normal 1.002-1.035 Protein, Urine Auto RFX NEGATIVE mg/dL Normal Negative Glucose, Urine (Ua) Auto RFX 2+ mg/dL High Negative Ketone, Urine Auto RFX NEGATIVE mg/dL Normal Negative Urobilinogen, Urine Auto RFX 0.2 mg/dL Normal 0.0-2.0 Bilirubin, Urine Auto RFX NEGATIVE Normal Negative Nitrite, Urine Auto RFX NEGATIVE Normal Negative Leukocyte Esterase Ur Auto RFX NEGATIVE Normal Negative Blood, Urine Blood RFX NEGATIVE Normal Negative WBC, Urine Auto RFX 1 /HPF Normal 0-3 RBC, Urine Auto RFX 1 /HPF Normal 0-3 Bacteria, Urine Auto RFX NEGATIVE Normal Negative Squam Epithelial Cell Ur Aurfx 0 /HPF Normal 0-6 Hyaline Cast, Urine Auto RFX 0 /LPF Normal 0-1 Laboratory test finding 08/30/2019 [facility] (Interface) [phone] Bedside Glucose 90 mg/dL Normal 80-115 Laboratory test finding 08/30/2019 [facility] (Interface) [phone] Lipase 258 U/L Normal 73-393 Basic Metabolic Profile 08/30/2019 [facility] (Interface) [phone] Glucose, Fasting 164 mg/dL High 70-100 Blood Urea Nitrogen 23 mg/dL High 7-18 Creatinine For GFR 0.98 mg/dL Normal 0.55-1.30 Glomerular Filtration Rate 59.9 Normal >45 1 9 Sodium Level 137 mEq/L Normal 136-145 Potassium Serum 4.3 mEq/L Normal 3.5-5.1 20 Chloride Level 100 mEq/L Normal 98-107 Carbon Dioxide Level 29 mEq/L Normal 21-32 Anion Gap 8 mEq/L Normal 8-16 Calcium Level 9.0 mg/dL Normal 8.8-10.2 Liver Profile 08/30/2019 [facility] (I nterface) [phone] Ast/Sgot 37 U/L Normal 7-37 Alt/SGPT 28 U/L Normal 12-78 Alkaline Phosphatase 107 U/L Normal 45-117 Bilirubin,Total 0.3 mg/dL Normal 0.2-1.0 Bilirubin,Direct < 0.1 mg/dL Normal 0.0-0.2 Total Protein 7.3 GM/DL Normal 6.4-8.2 Albumin 3.6 GM/DL Normal 3.2-5.2 Albumin/Globulin Ratio 1.0 Low 1.2-2.2 Cardiac Marker Panel 08/30/2019 [facility]) [phone] CPK Creatine Phosphokinase 190 U/L Normal 26-19 2 CK-MB Value Mass 1.7 NG/ML Normal <3.6 MB/CK Relative Index 0.89 Normal < Or =4 21 Troponin I < 0.02 NG/ML Normal < 0.10 22 Prothrombin Time/Inr 08/30/2019 [facility]) [phone] Prothrombin Time 12.8 seconds Normal 11.8-14.0 Inr 0.99 Normal 23 CBC With Differential 08/30/2019 [facility]) [phone] White Blood Count 9.4 10 Normal 4.0-10.0 Red Blood Count 4.37 10 Normal 4.00-5.40 Hemoglobin 11.1 g/dL Low 12.0-15.5 Hematocrit 37.2 % Normal 36.0-47.0 Mean Corpuscular Volume 85.1 fl Normal 80.0-96.0 Mean Corpuscular Hemoglobin 25.4 pg Low 27.0-33.0 Mean Corpuscular HGB Conc 29.8 g/dL Low 32.0-36.5 Red Cell Distribution Width 16.2 % High 11.5-14.5 Platelet Count, Automated 369 10 Normal 150-450 Neutrophils % 76.4 % High 36.0-66.0 Lymph % 18.8 % Low 24.0-44.0 Taos % 3.7 % Normal 0.0-5.0 Eos % 0.5 % Normal 0.0-3.0 Baso % 0.3 % Normal 0.0-1.0 Immature Granulocyte % 0.3 % Normal 0-3.0 Nucleated Red Blood Cell % 0.0 % Normal 0-0 Neutrophils # 7.2 10 Normal 1.5-8.5 Lymph # 1.8 10 Normal 1.5-5.0 Taos # 0.4 10 Normal 0.0-0.8 Eos # 0.1 10 Normal 0.0-0.5 Baso # 0.0 10 Normal 0.0-0.2 Laboratory test finding 07/28/2019 [facility] (Interface) [phone] iSTAT Troponin 0.00 NG/ML Normal 0.00-0.08 Istat Chem8+ Panel 07/28/2019 [facility] [phone] iSTAT HCT 35.0 % Low 38.0-51.0 iSTAT Glucose 257 mg/dL High 70-105 iSTAT Sodium 137 mEq/L Normal 136-145 iSTAT Potassium 4.1 mEq/L Normal 3.5-5.1 iSTAT CA++ 4.5 mg/dL Normal 4.5-5.3 iSTAT Chloride 101 mEq/L Normal 98-109 iSTAT Co2 24.0 MM/L Normal 23.0-27.0 iSTAT BUN 18 mg/dL Normal 8-26 iSTAT Creatinine 0.9 mg/dL Normal 0.6-1.3 Laboratory test finding 07/28/2019 [facility] (Interface) [phone] iSTAT Troponin 0.00 NG/ML Normal 0.00-0.08 CBC With Differential 07/28/2019 [facility] (Interface) [phone] White Blood Count 6.3 10 Normal 4.0-10.0 Red Blood Count 4.14 10 Normal 4.00-5.40 Hemoglobin 10.6 g/dL Low 12.0-15.5 Hematocrit 34.8 % Low 36.0-47.0 Mean Corpuscular Volume 84.1 fl Normal 80.0-96.0 Mean Corpuscular Hemoglobin 25.6 pg Low 27.0-33.0 Mean Corpuscular HGB Conc 30.5 g/dL Low 32.0-36.5 Red Cell Distribution Width 16.8 % High 11.5-14.5 Platelet Count, Automated 284 10 Normal 150-450 Neutrophils % 56.8 % Normal 36.0-66.0 Lymph % 31.2 % Normal 24.0-44.0 Taos % 9.0 % High 0.0-5.0 Eos % 2.2 % Normal 0.0-3.0 Baso % 0.6 % Normal 0.0-1.0 Immature Granulocyte % 0.2 % Normal 0-3.0 Nucleated Red Blood Cell % 0.0 % Normal 0-0 Neutrophils # 3.6 10 Normal 1.5-8.5 Lymph # 2.0 10 Normal 1.5-5.0 Taos # 0.6 10 Normal 0.0-0.8 Eos # 0.1 10 Normal 0.0-0.5 Baso # 0.0 10 Normal 0.0-0.2 Liver Profile 07/28/2019 [facility] (I nterface) [phone] Ast/Sgot 12 U/L Normal 7-37 Alt/SGPT 17 U/L Normal 12-78 Alkaline Phosphatase 89 U/L Normal 45-117 Bilirubin,Total 0.3 mg/dL Normal 0.2-1.0 Bilirubin,Direct < 0.1 mg/dL Normal 0.0-0.2 Total Protein 6.3 GM/DL Low 6.4-8.2 Albumin 3.3 GM/DL Normal 3.2-5.2 Albumin/Globulin Ratio 1.1 Low 1.2-2.2 Laboratory test finding 07/28/2019 [facility] (Interface) [phone] Lipase 240 U/L Normal 73-393 CBC With Differential/Platelet 07/28/2019 [facility] N E WBC 4.4 x10E3/uL 3.4-10.8 RBC 4.47 x10E6/uL 3.77-5.28 Hemoglobin 11.2 g/dL 11.1-15.9 Hematocrit 37.0 % 34.0-46.6 MCV 83 fL 79-97 MCH 25.1 pg Low 26.6-33.0 MCHC 30.3 g/dL Low 31.5-35.7 RDW 14.9 % 11.7-15.4 Platelets 310 x10E3/uL 150-450 Neutrophils 47 % Not Estab. Lymphs 41 % Not Estab. Monocytes 8 % Not Estab. Eos 3 % Not Estab. Basos 1 % Not Estab. Immature Cells TNP Neutrophils (Absolute) 2.1 x10E3/uL 1.4-7.0 Lymphs (Absolute) 1.8 x10E3/uL 0.7-3.1 Monocytes(Absolute) 0.4 x10E3/uL 0.1-0.9 Eos (Absolute) 0.1 x10E3/uL 0.0-0.4 Baso (Absolute) 0.0 x10E3/uL 0.0-0.2 Immature Granulocytes 0 % Not Estab. Immature Grans (Abs) 0.0 x10E3/uL 0.0-0.1 NRBC TNP Hematology Comments: TNP Metabolic Panel (14), Comprehensive 07/28/2019 [facility] [place] Glucose 205 mg/dL High 65-99 BUN 20 mg/dL 8-27 Creatinine 0.86 mg/dL 0.57-1.00 eGFR If NonAfricn Am 69 mL/min/1.73 >59 eGFR If Africn Am 80 mL/min/1.73 >59 BUN/Creatinine Ratio 23 12-28 Sodium 136 mmol/L 134-144 Potassium 4.5 mmol/L 3.5-5.2 Chloride 98 mmol/L 96-106 Carbon Dioxide, Total 21 mmol/L 20-29 Calcium 9.5 mg/dL 8.7-10.3 Protein, Total 6.3 g/dL 6.0-8.5 Albumin 4.3 g/dL 3.8-4.8 Globulin, Total 2.0 g/dL 1.5-4.5 A/G Ratio 2.2 1.2-2.2 Bilirubin, Total 0.2 mg/dL 0.0-1.2 Alkaline Phosphatase 84 IU/L 39-117 Ast (Sgot) 17 IU/L 0-40 Alt (SGPT) 10 IU/L 0-32 Lipid Panel 07/28/2019 [facility] [place] Cholesterol, Total 135 mg/dL 100-199 Triglycerides 71 mg/dL 0-149 HDL Cholesterol 65 mg/dL >39 VLDL Cholesterol Fausto 14 mg/dL 5-40 LDL Cholesterol Calc 56 mg/dL 0-99 Comment: TN Hemoglobin A1c 07/28/2019 [facility] [place] Hemoglobin A1c 8.0 % High 4.8-5.6 24 1 SOURCE: Clean Catch 2 URINALYSIS 3 COMPLETE BLOOD COUNT 4 TROPONIN T 0.1 ng/ml Recommended as the clinical th reshold value for Troponin T. 5 COMPREHENSIVE METABOLIC PANE L 6 Male GFR Interprentation 20-49 yrs >60 mL/min Normal 50-59 yrs >56 mL/min Normal 60-69 yrs >49 mL/min Normal 70-79yrs >42 mL/min Normal 80 and above >35 mL/min Normal Female GFR Interpretation 20-39 yrs >60 mL/min Normal 40-49 yrs >58 mL/min Normal 50-59 yrs >51 mL/min Normal 60-69 yrs >45 mL/min Normal 70-79 yrs >39 mL/min Normal 80 and above >32 mL/min Normal 7 Units are mL/min/1.73 m2 Chronic Kidney Disease Staging per NKF: Stage I & II GFR >=60 Normal to Mildly Decreased Stage III GFR 30-59 Moderately Decreased Stage IV GFR 15-29 Severely Decreased Stage V GFR <15 Very Little GFR Left ESRD GFR <15 on HADOOP ARCHITECT 8 Negative <36.0 Equivocal 36.0 - 43.9 Positive >43.9 Performed at: RN - [facility] [address] [id number] Animal Care Assistant: Virginie Acevedo MD, Phone: [phone] SRC:URINE 10 Source of Specimen: URINE 11 Source of Specimen: URINE 12 Prediabetes: 5.7 - 6.4 Diabetes: >6.4 Glycemic control for adults with diabetes: <7.0 13 NORMAL RANGES Age WBC RBC HGB HCT MCV PLT Adult M 4.1-10.9 4.20-6.30 12.0-18.0 37.0-51.0 80-97 140-440 Adult F 4.1-10.9 4.04-5.48 12.0-18.0 37.0-51.0 80-97 140-440 0 -1 Yr 5.0-20.0 3.9-5.9 15-18 MV: 44 MV: 91 MV: 277 2-9 Yr. 6.0-17.0 3.8-5.4 11-13 MV: 37 MV: 78 MV: 300 10 Yrs. 5.0-13.0 3.8-5.4 12-15 MV: 39 MV: 80 MV: 250 NOTE: * FOR ADULT BLACK MALES AND FEMALES, NORMAL WBC IS 2.9-7.7 K/ML * FOR ADULT BLACK MALES AND FEMALES, NORMAL RBC,HGB, AND HCT IS 5% LESS SOURCE FOR DATA: [employer] 1800 OPERATION MANUAL( AUTOMATED BLOOD COUNTS AND DIFF.) APPENDIX B-3 CHRONIC KIDNEY DISEASE STAGING PER NKF: MALE GFR INTERPRETATION: 20-49 YRS: >60 mL/min Normal 50-59 YRS: >56 mL/min Normal 60-69 YRS: >49 mL/min Normal 70-79 YRS: >42 mL/min Normal 80 and above >35 mL/min Normal FEMALE GRF INTERPRETATION: 20-39 YRS: >60 mL/min Normal 40-49 YRS: >58 mL/min Normal 50-59 YRS: >51 mL/min Normal 60-69 YRS: >45 mL/min Normal 70-79 YRS: >39 mL/min Normal 80 and above >32 mL/min NormalCLASSIFICATION CHOLESTEROL FOR ADULTS CHILDREN/ADOLESCENTS* DESIRABLE: <200 MG/DL <170 MG/DL BORDER-LINE HIGH RISK: 200-239 MG/DL 170-199 MG/DL HIGH RISK: >240 MG/DL >200 MG/DL CLASS. FOR PRIMARY LDL CHOL PREVENTION: LDL CHOL-CHILD/ADOLESCENTS* DESIRABLE: <130 MG/DL <110 MG/DL BORDERLINE-HIGH RISK: 130-159 MG/DL 110-129 MG/DL HIGH RISK: >160 MG/DL >130 MG/DL *CHILDREN AND ADOLESCENTS REPRESENTS INDIVIDUALA AGED 2-19 YEARS EXCLUSIVE. 14 CKD-EPI 15 CKD-EPI 16 VITAMIN B12 NORMAL RANGE NORMAL 247 - 911 PG/ML INDETERMINATE 211 - 246 PG/ML DEFICIENT LESS THAN 211 PG/ML 17 FOLATE NORMAL RANGE NORMAL GREATER THAN 5.4 NG/ML INDETERMINATE 3.4-5.4 NG/ML DEFICIENT LESS THAN 3.4 NG/ML 18 Units are mL/min/1.73 m2 Chronic Kidney Disease Staging per NKF: Stage I & II GFR >=60 Normal to Mildly Decreased Stage III GFR 30-59 Moderately Decreased Stage IV GFR 15-29 Severely Decreased Stage V GFR <15 Very Little GFR Left ESRD GFR <15 on HADOOP ARCHITECT 19 Units are mL/min/1.73 m2 Chronic Kidney Disease Staging per NKF: Stage I & II GFR >=60 Normal to Mildly Decreased Stage III GFR 30-59 Moderately Decreased Stage IV GFR 15-29 Severely Decreased Stage V GFR <15 Very Little GFR Left ESRD GFR <15 on HADOOP ARCHITECT 20 This specimen has an elevate d potassium level but there is NO visible hemolysis noted. 21 DIAGNOSIS CRITERIA MMB ng/ml Relative Index (RI) NON-AMI < or = 5 N/A GIL ZONE > 5 < or = 4 AMI > 5 > 4 22 Troponin I Reference Interva l for [employer] LOCI: 99th Percentile= 0.00-0.045 ng/ml Risk Stratification: <= 0.10 ng/ml Decreased Risk for Adverse Clinical Events. 0.10-1.50 ng/ml Increased Risk for Adv erse Clinical Events. Evaluation of additional criterion and/or repeat testing in 2-6 hours is suggested to rule out myocardial damage. >= 1.50 ng/ml Indicative of Myocardial Injury. 23 THERAPUTIC HUMAN INR VALUES INDICATIONS NORMAL RANGES PROPHYLAXIS/TREATMENT OF: VENOUS THROMBOSIS 2.0-3.0 PULMONARY EMBOLISM 2.0-3.0 PREVENTION OF SYSTEMIC EMBOLISM FROM: TISSUE HEART VALVES 2.0-3.0 ACUTE MYOCARDIAL INFARCTION 2.0-3.0 VALVULAR HEART DISEASE 2.0-3.0 ATRIAL FIBRILLATION 2.0-3.0 MECHANICAL VALVES(HIGH RISK) 2.5-3.5 RECURRENT MYOCARDIAL INFARCTION 2.5-3.5 24 Prediabetes: 5.7 - 6.4 Diabetes: >6.4 Glycemic control for adults with diabetes: <7.0 Procedures Date Code Description Status 12/28/2019 51624 Electrocardiogram Complete Compl eted 11/22/2019 [id number] Electrocardiogram Complete Compl eted 11/15/2019 [id number] Mammogram Completed Medical Devices Description No Information Available Encounters Type Date Location Provider Dx Diagnosis Office Visit 12/28/2019 1:15p [facility] Edgar Brown, DALE A R53.83 Other fatigue R06.02 Shortness of breath E11.9 Type 2 diabetes mellitus wit hout complications Office Visit 11/22/2019 1:30p [facility] Jamison Quiros M. D. R61 Generalized hyperhidrosis R42 Dizziness and giddiness I10 Essential (primary) hyperten stephanie E78.5 Hyperlipidemia, unspecified Office Visit 11/06/2019 10:00a [facility] Jamison Quiros M. D. J44.1 Chronic obstructive pulmonary disease w (acute) exacerbation E78.5 Hyperlipidemia, unspecified I10 Essential (primary) hyperten stephanie F41.9 Anxiety disorder, unspecifie d E11.9 Type 2 diabetes mellitus wit hout complications D50.9 Iron deficiency anemia, unsp ecified Z23 Encounter for immunization Office Visit 10/13/2019 2:00p [facility] Jamison Quiros M.D. W57.xxxA Bit/stung by nonvenom insect & oth nonve nom arthropods, init R21 Rash and other nonspecific s kin eruption Office Visit 09/05/2019 3:20p [facility] Jamison Quiros M. D. J44.1 Chronic obstructive pulmonary disease w (acute) exacerbation Office Visit 07/28/2019 10:20a [facility] Jamison Quiros M. D. E78.5 Hyperlipidemia, unspecified I10 Essential (primary) hyperten stephanie F41.9 Anxiety disorder, unspecifie d E11.9 Type 2 diabetes mellitus wit hout complications D50.9 Iron deficiency anemia, unsp ecified J44.1 Chronic obstructive pulmonar y disease w (acute) exacerbation Assessments Date Code Description Provider 12/28/2019 R53.83 Other fatigue Edgar Brown, RPA 12/28/2019 R06.02 Shortness of breath Ramon Brown, RPA 12/28/2019 E11.9 Type 2 diabetes mellitus without complications Edgar Brown, RPA 11/22/2019 R61 Generalized hyperhidrosis Jamison Owens M.D. 11/22/2019 R42 Dizziness and giddiness Jamison Quiros M.D. 11/22/2019 I10 Essential (primary) hypertension Jamison Quiros M.D. 11/22/2019 E78.5 Hyperlipidemia, unspecified [facility] Jamison antonio M.D. 11/06/2019 J44.1 Chronic obstructive pulmonary disease with (acute) exacerbation Jamison Quiros M.D. 11/06/2019 E78.5 Hyperlipidemia, unspecified [facility] Jamison antonio M.D. 11/06/2019 I10 Essential (primary) hypertension Jamison Quiros M.D. 11/06/2019 F41.9 Anxiety disorder, unspecified [place] Jamison duran M.D. 11/06/2019 E11.9 Type 2 diabetes mellitus without complications Jamison Quiros M.D. 11/06/2019 D50.9 Iron deficiency anemia, unspecif ied Jamison Quiros M.D. 11/06/2019 Z23 Encounter for immunization Jamison Du M.D. 10/13/2019 W57.xxxA Bitten or stung by n onvenomous insect and other nonvenomous arthropods, initial encounter Jamison Quiros M.D. 10/13/2019 R21 Rash and other nonspecific skin eruption Jamison Quiros M.D. 09/05/2019 J44.1 Chronic obstructive pulmonary disease with (acute) exacerbation Jamison Quiros M.D. 07/28/2019 E78.5 Hyperlipidemia, unspecified [facility] Jamison antonio M.D. 07/28/2019 I10 Essential (primary) hypertension Jamison Quiros M.D. 07/28/2019 F41.9 Anxiety disorder, unspecified De Jamison duran M.D. 07/28/2019 E11.9 Type 2 diabetes mellitus without complications Jamison Quiros M.D. 07/28/2019 D50.9 Iron deficiency anemia, unspecif ied Jamison Quiros M.D. 07/28/2019 J44.1 Chronic obstructive pulmonary disease with (acute) exacerbation Jamison Quiros M.D. Plan of Treatment Future Appointment(s):* 01/12/2020 10:40 am - Edgar Brown RPA at [facility] * 02/20/2020 10:40 am - Jamison Quiros M.D. at [facility] Functional Status Description No Information Available Mental Status Description No Information Available Referrals Refer to Reason for Referral Status Appt Date [facility] Cardiology diaphoresis and light h eadedness in pt with multiple cardiac risk factors- eval and rx Sent 02/07/[address] Van [address] [place], [place] [id number] [phone]
--- OUTSIDE RECORDS SUMMARY | 2020-03-13 17:59 | CCD | Continuity of Care Document ---
Author Author Elsy PARMAR PA Organization Unknown Address [address] [place] [id number] Phone [phone] Care Team Providers Care Component Design Engineer Name Role Phone Edgar Ross AUTM [phone] Jamison Quiros MD AUTM [phone] Problems Active Problems Provider Date Type 2 [...] Capsules ever y day Unknown Calcium 600+D [id number] Table ts 1 by mouth twice a [...] Provider Dx Diagnosis Office Visit 01/22/2020 5:45p [place] ERIK Dowd S62.646 A Nondisp fx of proximal phalanx of right little finger, init Assessments Date Code Description Provider 01/22/2020 S62.646A Nondisplaced fractur e of proximal phalanx of right little finger, initial encounter for closed fracture ERIK Dowd Plan of Treatment Future Appointment(s):* 02/27/2020 10:30 am - NATE PatelC at [place] 01/22/2020 - ERIK Dowd* S62.646A Nondisplaced fracture of proximal phalanx of right little finger, initial encounter for closed fracture Functional Status Description No Information Available Mental Status Description No Information Available Referrals Description No Information Available
--- OUTSIDE RECORDS SUMMARY | 2020-03-13 18:00 | CCD | Continuity of Care Document ---
Author Author Elsy BROWN [facility] Unknown Address [address] [facility] [address] [place] [address] Phone [phone] Problems Active Problems Provider Date Essential hypertension [...] Times A Day as Needed 200units Jamison Paitno M.D. 10/23/2019 Mupirocin 2% Ointment apply to [...] CPT Code Status Date Vaccine Lot # [id number] Given 11/06/2019 Influenza Virus Vaccine, Quadrivalent, Slit Virus, Im Use 3Y & Up [id number] Given 01/04/2019 Influenza Virus Vaccine, Quadrivalent, Slit Virus, Im Use 3Y & Up [id number] Vital Signs Date Vital Result Comment 11/22/2019 1:51pm BP Systolic 124 mmHg BP Diastolic 70 mmHg Body Temperature 98.5 F Heart Rate 72 /min Respiratory Rate 16 /min Height 60.5 inches 5'0.50" Weight 188.00 lb [place] Body Weight 100 lb BMI (Body Mass Index) 36.1 kg/m2 O2 % BldC Oximetry 97 % 11/06/2019 9:49am BP Systolic 122 mmHg BP Diastolic 66 mmHg Body Temperature 98.2 F Heart Rate 70 /min Respiratory Rate 14 /min Height 60.5 inches 5'0.50" Weight 191.00 lb [place] Body Weight 100 lb BMI (Body Mass Index) 36.7 kg/m2 O2 % BldC Oximetry 97 % Results Test Acquired Date Facility Test Result H/L Range Note Urinalysis 12/31/2019 [place] [address] [phone] Urinalysis (SEE NOTE) 1, 2 Source Clean Catch Color yellow Normal: Yellow Clarity clear Normal: Clear Spec [place] 1.010 1.001 - 1.030 pH 6.5 5 [...] Normal: None Seen Laboratory test finding 12/31/2019 [facility] [place] [address] [phone] D-Dimer <0.27 ug/mL 0.27 - 0.50 CBC W/Automated Diff [facility]31[facility]2019 [facility] [place] [address] [phone] CBC W/Automated Diff (SEE NOTE) 3 WBC [...] 80.0 Lymph 28.0 % 25.0 - 40.0 Gates 7.4 % 3.0 - 8.0 Eos 3.9 % 0.0 - 7.0 Baso 0.5 % 0.0 - 2.5 %Ig 0.2 % High 0.0 - 0.0 %NRBC 0.0 % 0.0 - 0.0 #Neut 3.88 10^3/uL 2.00 - 6.90 #Lymph 1.81 10^3/uL 0.60 - 3.40 #Gates 0.48 10^3/uL 0.00 - 0.90 #Eos 0.25 10^3/uL 0.00 - 0.70 #Baso 0.03 10^3/uL 0.00 - 0.20 #Ig 0.01 10^3/uL 0.00 - 0.10 #NRBC 0.00 10^3/uL 0.00 - 0.00 Manual Diff NOT INDICATED RBC Morph NOT INDICATED Laboratory test finding 12/31/2019 [place] [address] [phone] Troponin T <0.01 NG/ML 0.00 - 0.10 4 Pro-BNP 144 pg/mL High 0 - 125 Comprehensive Metabolic Panel 12/31/2019 [place] [address] [phone] Comprehensive Metabo (SEE NOTE) 5 Sodium 140 [...] GFR >60 6 CBC With Differential 12/28/2019 [facility]) [phone] White Blood Count 8.7 10 Normal 4.0-10.0 [...] 36.0-66.0 Lymph % 19.4 % Low 24.0-44.0 Gates % 6.7 % High 0.0-5.0 Eos % 1.6 % Normal 0.0-3.0 Baso % 0.3 % Normal 0.0-1.0 Immature Granulocyte % 0.2 % Normal 0-3.0 Nucleated Red Blood Cell % 0.0 % Normal 0-0 Neutrophils # 6.2 10 Normal 1.5-8.5 Lymph # 1.7 10 Normal 1.5-5.0 Gates # 0.6 10 Normal 0.0-0.8 Eos # 0.1 10 Normal 0.0-0.5 Baso # 0.0 10 Normal 0.0-0.2 Comprehensive Metabolic Profil 12/28/2019 [facility]) [phone] Glucose, Fasting 63 mg/dL Low 70-100 Blood [...] 1.2 Normal 1.2-2.2 Laboratory test finding 12/28/2019 [facility] (Interface) [phone] Ebv Viral Capsid Ag IgM <36.0 U/mL Normal 0.0-35.9 8 U/A DIP FPA 12/28/2019 [facility] Asso ciates Color Urine YELLOW Yellow Appearance CLEAR Clear Specific [place] 1.020 1.00-1.03 PH Urine 6.5 5.0-8.0 Glucose Urine NEG Negative Bilirubin Urine NEG Negative Ketones NEG Negative Blood Urine NEG Negative Protein Urine NEG Negative Urobilinogen .2 EU/dl 0.2-1.0 Nitrite NEG Negative Leukocytes TRACE Negative Urine Culture, Routine 12/28/2019 [facility] [place] Urine Culture, Routine Final report 9, 1 0 Result 1 No growth 11 Laboratory test finding 12/28/2019 [facility] Glucometer-[facility] 82 mg/dL 65-109 Microalb/Creat Ratio 11/06/2019 FPA/Inhouse [...] eGFR 76 # Calc 14 eGFR Non-Afr. Latvian 65 # Calc 15 CBC 11/06/2019 [facility]PA/Inhouse [...] Ratio 2.2 CALC Laboratory test finding [facility] [phone] Vitamin B12 Level 379 pg/mL Normal 247-911 16 Folate 11.9 NG/ML Normal >5.4 17 Ferritin 7 NG/ML Low 8-252 Total Iron Binding Capacit 09/15/2019 [facility] (Interface) [phone] Iron (Fe) 30 g/dL Low 50-170 Total Iron Binding Capacity 486 g/dL High 250-450 Percent Saturation 6.2 % Low 13.2-45.0 CBC With Differential 09/15/2019 [facility] (Interface) [phone] White Blood Count 5.2 10 Normal 4.0-10.0 [...] 36.0-66.0 Lymph % 36.2 % Normal 24.0-44.0 Gates % 7.9 % High 0.0-5.0 Eos % 2.9 % Normal 0.0-3.0 Baso % 0.6 % Normal 0.0-1.0 Immature Granulocyte % 0.4 % Normal 0-3.0 Nucleated Red Blood Cell % 0.0 % Normal 0-0 Neutrophils # 2.7 10 Normal 1.5-8.5 Lymph # 1.9 10 Normal 1.5-5.0 Gates # 0.4 10 Normal 0.0-0.8 Eos # 0.2 10 Normal 0.0-0.5 Baso # 0.0 10 Normal 0.0-0.2 Creatinine With GFR 09/15/2019 [facility] (I nterface) [phone] Creatinine For GFR 0.93 mg/dL Normal 0.55-1.30 Glomerular Filtration Rate > 60.0 Normal >45 1 8 Laboratory test finding 09/15/2019 [facility] (Interface) [phone] Blood Urea Nitrogen 20 mg/dL High 7-18 Ua W/ Reflex To Culture 08/31/2019 [facility] (Interface) [phone] Appearance, Urine RFX CLEAR Normal Clear Color, Urine RFX STRAW Normal Yellow PH,Urine RFX 5.0 units Normal 5.0-9.0 Specific [place] Ur Auto RFX 1.009 Normal 1.002-1.035 Protein, [...] test finding 08/30/2019 [facility] (Interface) [phone] Bedside Glucose 90 mg/dL Normal 80-115 Laboratory test finding 08/30/2019 [facility] (Interface) [phone] Lipase 258 U/L Normal 73-393 Basic Metabolic Profile 08/30/2019 [facility] (Interface) [phone] Glucose, Fasting 164 mg/dL High 70-100 Blood [...] 9.0 mg/dL Normal 8.8-10.2 Liver Profile 08/30/2019 [facility] (I nterface) [phone] Ast/Sgot 37 U/L Normal 7-37 Alt/SGPT 28 U/L Normal 12-78 Alkaline Phosphatase 107 U/L Normal 45-117 Bilirubin,Total 0.3 mg/dL Normal 0.2-1.0 Bilirubin,Direct < 0.1 mg/dL Normal 0.0-0.2 Total Protein 7.3 GM/DL Normal 6.4-8.2 Albumin 3.6 GM/DL Normal 3.2-5.2 Albumin/Globulin Ratio 1.0 Low 1.2-2.2 Cardiac Marker Panel 08/30/2019 [facility]) [phone] CPK Creatine Phosphokinase 190 U/L Normal 26-19 2 CK-MB Value Mass 1.7 NG/ML Normal <3.6 MB/CK Relative Index 0.89 Normal < Or =4 21 Troponin I < 0.02 NG/ML Normal < 0.10 22 Prothrombin Time/Inr 08/30/2019 [facility]) [phone] Prothrombin Time 12.8 seconds Normal 11.8-14.0 Inr 0.99 Normal 23 CBC With Differential 08/30/2019 [facility]) [phone] White Blood Count 9.4 10 Normal 4.0-10.0 [...] 36.0-66.0 Lymph % 18.8 % Low 24.0-44.0 Gates % 3.7 % Normal 0.0-5.0 Eos % 0.5 % Normal 0.0-3.0 Baso % 0.3 % Normal 0.0-1.0 Immature Granulocyte % 0.3 % Normal 0-3.0 Nucleated Red Blood Cell % 0.0 % Normal 0-0 Neutrophils # 7.2 10 Normal 1.5-8.5 Lymph # 1.8 10 Normal 1.5-5.0 Gates # 0.4 10 Normal 0.0-0.8 Eos # 0.1 10 Normal 0.0-0.5 Baso # 0.0 10 Normal 0.0-0.2 Laboratory test finding 07/28/2019 [facility] (Interface) [phone] iSTAT Troponin 0.00 NG/ML Normal 0.00-0.08 Istat Chem8+ Panel 07/28/2019 [facility] [phone] iSTAT HCT 35.0 % Low 38.0-51.0 iSTAT Glucose 257 mg/dL High 70-105 iSTAT Sodium 137 mEq/L Normal 136-145 iSTAT Potassium 4.1 mEq/L Normal 3.5-5.1 iSTAT CA++ 4.5 mg/dL Normal 4.5-5.3 iSTAT Chloride 101 mEq/L Normal 98-109 iSTAT Co2 24.0 MM/L Normal 23.0-27.0 iSTAT BUN 18 mg/dL Normal 8-26 iSTAT Creatinine 0.9 mg/dL Normal 0.6-1.3 Laboratory test finding 07/28/2019 [facility] (Interface) [phone] iSTAT Troponin 0.00 NG/ML Normal 0.00-0.08 CBC With Differential 07/28/2019 [facility] (Interface) [phone] White Blood Count 6.3 10 Normal 4.0-10.0 [...] 36.0-66.0 Lymph % 31.2 % Normal 24.0-44.0 Gates % 9.0 % High 0.0-5.0 Eos % 2.2 % Normal 0.0-3.0 Baso % 0.6 % Normal 0.0-1.0 Immature Granulocyte % 0.2 % Normal 0-3.0 Nucleated Red Blood Cell % 0.0 % Normal 0-0 Neutrophils # 3.6 10 Normal 1.5-8.5 Lymph # 2.0 10 Normal 1.5-5.0 Gates # 0.6 10 Normal 0.0-0.8 Eos # 0.1 10 Normal 0.0-0.5 Baso # 0.0 10 Normal 0.0-0.2 Liver Profile 07/28/2019 [facility] (I nterface) [phone] Ast/Sgot 12 U/L Normal 7-37 Alt/SGPT 17 U/L Normal 12-78 Alkaline Phosphatase 89 U/L Normal 45-117 Bilirubin,Total 0.3 mg/dL Normal 0.2-1.0 Bilirubin,Direct < 0.1 mg/dL Normal 0.0-0.2 Total Protein 6.3 GM/DL Low 6.4-8.2 Albumin 3.3 GM/DL Normal 3.2-5.2 Albumin/Globulin Ratio 1.1 Low 1.2-2.2 Laboratory test finding 07/28/2019 [facility] (Interface) [phone] Lipase 240 U/L Normal 73-393 CBC With [...] Little GFR Left ESRD GFR <15 on [employer] 8 Negative <36.0 Equivocal 36.0 - 43.9 Positive >43.9 Performed at: RN - [facility] [address] [id number] [place]blers Supervisor: Virginie Acevedo MD, Phone: [phone] SRC:URINE 10 Source of Specimen: URINE [...] HCT IS 5% LESS SOURCE FOR DATA: [email or web address] 1800 OPERATION MANUAL( AUTOMATED BLOOD COUNTS AND [...] Little GFR Left ESRD GFR <15 on [employer] 19 Units are mL/min/1.73 m2 Chronic Kidney Disease Staging per NKF: Stage I & II GFR >=60 Normal to Mildly Decreased Stage III GFR 30-59 Moderately Decreased Stage IV GFR 15-29 Severely Decreased Stage V GFR <15 Very Little GFR Left ESRD GFR <15 on [employer]ERSON[employer] 20 This specimen has an elevate d potassium level but there is NO visible hemolysis noted. 21 DIAGNOSIS CRITERIA MMB ng/ml Relative Index (RI) NON-AMI < or = 5 N/A GIL ZONE > 5 < or = 4 AMI > 5 > 4 22 Troponin I Reference Interva l for [place] LOCI: 99th Percentile= 0.00-0.045 ng/ml Risk Stratification: [...] <7.0 Procedures Date Code Description Status 12/28/2019 92923 Electrocardiogram Complete Compl eted 11/22/2019 28749 Electrocardiogram Complete Compl eted 11/15/2019 [id number] Mammogram Completed Medical Devices Description No Information Available Encounters Type Date Location Provider Dx Diagnosis Office Visit 12/28/2019 1:15p [place] [facility] Edgar Brown, DALE A R53.83 Other fatigue R06.02 Shortness of breath E11.9 Type 2 diabetes mellitus wit hout complications Office Visit 11/22/2019 1:30p [place] Jamison Quiros M. D. R61 Generalized hyperhidrosis R42 Dizziness and giddiness I10 Essential (primary) hyperten stephanie E78.5 Hyperlipidemia, unspecified Office Visit 11/06/2019 10:00a [place] Jamison Quiros M. D. J44.1 Chronic obstructive pulmonary disease w (acute) exacerbation E78.5 Hyperlipidemia, unspecified I10 Essential (primary) hyperten stephanie F41.9 Anxiety disorder, unspecifie d E11.9 Type 2 diabetes mellitus wit hout complications D50.9 Iron deficiency anemia, unsp ecified Z23 Encounter for immunization Office Visit 10/13/2019 2:00p [place] Jamison Quiros M.D. W57.xxxA Bit/stung by nonvenom insect & oth nonve nom arthropods, init R21 Rash and other nonspecific s kin eruption Office Visit 09/05/2019 3:20p [facility] Jamison Quiros M. D. J44.1 Chronic obstructive pulmonary disease w (acute) exacerbation Office Visit 07/28/2019 10:20a [place] [facility] Jamison Quiros M. D. E78.5 Hyperlipidemia, [...] Jamison Quiros M.D. 11/22/2019 E78.5 Hyperlipidemia, unspecified [facility] Jamison antonio M.D. 11/06/2019 J44.1 Chronic obstructive pulmonary disease with (acute) exacerbation Jamison Quiros M.D. 11/06/2019 E78.5 Hyperlipidemia, unspecified [facility] Jamison antonio M.D. 11/06/2019 I10 Essential (primary) hypertension Jamison Quiros M.D. 11/06/2019 F41.9 Anxiety disorder, unspecified [place] Jamison duran M.D. 11/06/2019 E11.9 Type 2 [...] Jamison Quiros M.D. 07/28/2019 E78.5 Hyperlipidemia, unspecified [facility] Jamison antonio M.D. 07/28/2019 I10 Essential (primary) hypertension Jamison Quiros M.D. 07/28/2019 F41.9 Anxiety disorder, unspecified [place] Jamison duran M.D. 07/28/2019 E11.9 Type 2 diabetes mellitus without complications Jamison Quiros M.D. 07/28/2019 D50.9 Iron deficiency anemia, unspecif ied Jamiosn Quiros M.D. 07/28/2019 J44.1 Chronic obstructive pulmonary disease with (acute) exacerbation Jamison Quiros M.D. Plan of Treatment Future Appointment(s):* 01/12/2020 10:40 am - Edgar Brown RPA at [facility] * 02/20/2020 10:40 am - Jamison Quiros M.D. at [facility] Functional Status Description No Information Available Mental Status Description No Information Available Referrals Refer to Reason for Referral Status Appt Date [place] [facility] Cardiology diaphoresis and light h eadedness in pt with multiple cardiac risk factors- eval and rx Sent 02/07/[address] Van [address] [place], [place] [id number] [phone]
--- OUTSIDE RECORDS SUMMARY | 2020-03-13 18:00 | CCD | Continuity of Care Document ---
Author Author Elsy BROWN [facility] Unknown Address [address] [facility] 3 [place] [address] Phone [phone] Problems Active Problems Provider Date Essential hypertension [...] to arm lesions twice daily 44gm Jamison Qiuros M.D. 10/13/19 20 Onetouch Verio Strips Use [...] CPT Code Status Date Vaccine Lot # [id number] Given 11/06/2019 Influenza Virus Vaccine, Quadrivalent, Slit Virus, Im Use 3Y & Up [id number] Given 01/04/2019 Influenza Virus Vaccine, Quadrivalent, Slit Virus, Im Use 3Y & Up [id number] Vital Signs Date Vital Result Comment 11/22/2019 1:51pm BP Systolic 124 mmHg BP Diastolic 70 mmHg Body Temperature 98.5 F Heart Rate 72 /min Respiratory Rate 16 /min Height 60.5 inches 5'0.50" Weight 188.00 lb [place] Body Weight 100 lb BMI (Body Mass Index) 36.1 kg/m2 O2 % BldC Oximetry 97 % 11/06/2019 9:49am BP Systolic 122 mmHg BP Diastolic 66 mmHg Body Temperature 98.2 F Heart Rate 70 /min Respiratory Rate 14 /min Height 60.5 inches 5'0.50" Weight 191.00 lb [place] Body Weight 100 lb BMI (Body Mass Index) 36.7 kg/m2 O2 % BldC Oximetry 97 % Results Test Acquired Date Facility Test Result H/L Range Note Urinalysis 12/31/2019 [place] [address] [phone] Urinalysis (SEE NOTE) 1, 2 Source Clean Catch Color yellow Normal: Yellow Clarity clear Normal: Clear Spec [place] 1.010 1.001 - 1.030 pH 6.5 5 [...] Normal: None Seen Laboratory test finding 12/31/2019 [facility] [place] [address] [phone] D-Dimer <0.27 ug/mL 0.27 - 0.50 CBC W/Automated Diff 12/31/2019 [facility] [place] [address] [phone] CBC W/Automated Diff (SEE NOTE) 3 WBC [...] 80.0 Lymph 28.0 % 25.0 - 40.0 [place] 7.4 % 3.0 - 8.0 Eos 3.9 % 0.0 - 7.0 Baso 0.5 % 0.0 - 2.5 %Ig 0.2 % High 0.0 - 0.0 %NRBC 0.0 % 0.0 - 0.0 #Neut 3.88 10^3/uL 2.00 - 6.90 #Lymph 1.81 10^3/uL 0.60 - 3.40 #[place] 0.48 10^3/uL 0.00 - 0.90 #Eos 0.25 10^3/uL 0.00 - 0.70 #Baso 0.03 10^3/uL 0.00 - 0.20 #Ig 0.01 10^3/uL 0.00 - 0.10 #NRBC 0.00 10^3/uL 0.00 - 0.00 Manual Diff NOT INDICATED RBC Morph NOT INDICATED Laboratory test finding 12/31/2019 [place] [address] [phone] Troponin T <0.01 NG/ML 0.00 - 0.10 4 Pro-BNP 144 pg/mL High 0 - 125 Comprehensive Metabolic Panel 12/31/2019 [place] [address] [phone] Comprehensive Metabo (SEE NOTE) 5 Sodium 140 [...] GFR >60 6 CBC With Differential 12/28/2019 [facility]) [phone] White Blood Count 8.7 10 Normal 4.0-10.0 [...] 36.0-66.0 Lymph % 19.4 % Low 24.0-44.0 [place] % 6.7 % High 0.0-5.0 Eos % 1.6 % Normal 0.0-3.0 Baso % 0.3 % Normal 0.0-1.0 Immature Granulocyte % 0.2 % Normal 0-3.0 Nucleated Red Blood Cell % 0.0 % Normal 0-0 Neutrophils # 6.2 10 Normal 1.5-8.5 Lymph # 1.7 10 Normal 1.5-5.0 [place] # 0.6 10 Normal 0.0-0.8 Eos # 0.1 10 Normal 0.0-0.5 Baso # 0.0 10 Normal 0.0-0.2 Comprehensive Metabolic Profil 12/28/2019 [facility]) [phone] Glucose, Fasting 63 mg/dL Low 70-100 Blood [...] 1.2 Normal 1.2-2.2 Laboratory test finding 12/28/2019 [facility] (Interface) [phone] Ebv Viral Capsid Ag IgM <36.0 U/mL Normal 0.0-35.9 8 U/A DIP FPA 12/28/2019 [facility] Asso ciates Color Urine YELLOW Yellow Appearance CLEAR Clear Specific [place] 1.020 1.00-1.03 PH Urine 6.5 5.0-8.0 Glucose Urine NEG Negative Bilirubin Urine NEG Negative Ketones NEG Negative Blood Urine NEG Negative Protein Urine NEG Negative Urobilinogen .2 EU/dl 0.2-1.0 Nitrite NEG Negative Leukocytes TRACE Negative Urine Culture, Routine 12/28/2019 [facility] [place] Urine Culture, Routine Final report 9, 1 0 Result 1 No growth 11 Laboratory test finding 12/28/2019 [facility] Glucometer-[facility] 82 mg/dL 65-109 Microalb/Creat Ratio 11/06/2019 [facility]PA/Inhouse [...] eGFR 76 # Calc 14 eGFR Non-Afr. Faro[place] 65 # Calc 15 CBC 11/06/2019 [facility]/Inhouse [...] Ratio 2.2 CALC Laboratory test finding [facility] [phone] Vitamin B12 Level 379 pg/mL Normal 247-911 16 Folate 11.9 NG/ML Normal >5.4 17 Ferritin 7 NG/ML Low 8-252 Total Iron Binding Capacit 09/15/2019 [facility] ical (Interface) [phone] Iron (Fe) 30 g/dL Low 50-170 Total Iron Binding Capacity 486 g/dL High 250-450 Percent Saturation 6.2 % Low 13.2-45.0 CBC With Differential 09/15/2019 [facility] (Interface) [phone] White Blood Count 5.2 10 Normal 4.0-10.0 [...] 36.0-66.0 Lymph % 36.2 % Normal 24.0-44.0 [place] % 7.9 % High 0.0-5.0 Eos % 2.9 % Normal 0.0-3.0 Baso % 0.6 % Normal 0.0-1.0 Immature Granulocyte % 0.4 % Normal 0-3.0 Nucleated Red Blood Cell % 0.0 % Normal 0-0 Neutrophils # 2.7 10 Normal 1.5-8.5 Lymph # 1.9 10 Normal 1.5-5.0 [place] # 0.4 10 Normal 0.0-0.8 Eos # 0.2 10 Normal 0.0-0.5 Baso # 0.0 10 Normal 0.0-0.2 Creatinine With GFR 09/15/2019 [facility] (I nterface) [phone] Creatinine For GFR 0.93 mg/dL Normal 0.55-1.30 Glomerular Filtration Rate > 60.0 Normal >45 1 8 Laboratory test finding 09/15/2019 [facility] (Interface) [phone] Blood Urea Nitrogen 20 mg/dL High 7-18 Ua W/ Reflex To Culture 08/31/2019 [facility] (Interface) [phone] Appearance, Urine RFX CLEAR Normal Clear Color, Urine RFX STRAW Normal Yellow PH,Urine RFX 5.0 units Normal 5.0-9.0 Specific [place] Ur Auto RFX 1.009 Normal 1.002-1.035 Protein, [...] /LPF Normal 0-1 Laboratory test finding 08/30/2019 [facility] (Interface) [phone] Bedside Glucose 90 mg/dL Normal 80-115 Laboratory test finding 08/30/2019 [facility] (Interface) [phone] Lipase 258 U/L Normal 73-393 Basic Metabolic Profile 08/30/2019 [facility] (Interface) [phone] Glucose, Fasting 164 mg/dL High 70-100 Blood [...] 9.0 mg/dL Normal 8.8-10.2 Liver Profile 08/30/2019 [facility] (I nterface) [phone] Ast/Sgot 37 U/L Normal 7-37 Alt/SGPT 28 U/L Normal 12-78 Alkaline Phosphatase 107 U/L Normal 45-117 Bilirubin,Total 0.3 mg/dL Normal 0.2-1.0 Bilirubin,Direct < 0.1 mg/dL Normal 0.0-0.2 Total Protein 7.3 GM/DL Normal 6.4-8.2 Albumin 3.6 GM/DL Normal 3.2-5.2 Albumin/Globulin Ratio 1.0 Low 1.2-2.2 Cardiac Marker Panel 08[facility] [phone] CPK Creatine Phosphokinase 190 U/L Normal 26-19 2 CK-MB Value Mass 1.7 NG/ML Normal <3.6 MB/CK Relative Index 0.89 Normal < Or =4 21 Troponin I < 0.02 NG/ML Normal < 0.10 22 Prothrombin Time/Inr 08/30/2019 [facility]) [phone] Prothrombin Time 12.8 seconds Normal 11.8-14.0 Inr 0.99 Normal 23 CBC With Differential 08/30/2019 [facility]) [phone] White Blood Count 9.4 10 Normal 4.0-10.0 [...] 36.0-66.0 Lymph % 18.8 % Low 24.0-44.0 [place] % 3.7 % Normal 0.0-5.0 Eos % 0.5 % Normal 0.0-3.0 Baso % 0.3 % Normal 0.0-1.0 Immature Granulocyte % 0.3 % Normal 0-3.0 Nucleated Red Blood Cell % 0.0 % Normal 0-0 Neutrophils # 7.2 10 Normal 1.5-8.5 Lymph # 1.8 10 Normal 1.5-5.0 [place] # 0.4 10 Normal 0.0-0.8 Eos # 0.1 10 Normal 0.0-0.5 Baso # 0.0 10 Normal 0.0-0.2 Laboratory test finding 07/28/2019 [facility] (Interface) [phone] iSTAT Troponin 0.00 NG/ML Normal 0.00-0.08 Istat Chem8+ Panel 07/28/2019 [facility] [phone] iSTAT HCT 35.0 % Low 38.0-51.0 iSTAT Glucose 257 mg/dL High 70-105 iSTAT Sodium 137 mEq/L Normal 136-145 iSTAT Potassium 4.1 mEq/L Normal 3.5-5.1 iSTAT CA++ 4.5 mg/dL Normal 4.5-5.3 iSTAT Chloride 101 mEq/L Normal 98-109 iSTAT Co2 24.0 MM/L Normal 23.0-27.0 iSTAT BUN 18 mg/dL Normal 8-26 iSTAT Creatinine 0.9 mg/dL Normal 0.6-1.3 Laboratory test finding 07/28/2019 [facility] (Interface) [phone] iSTAT Troponin 0.00 NG/ML Normal 0.00-0.08 CBC With Differential 07/28/2019 [facility] (Interface) [phone] White Blood Count 6.3 10 Normal 4.0-10.0 [...] 36.0-66.0 Lymph % 31.2 % Normal 24.0-44.0 [place] % 9.0 % High 0.0-5.0 Eos % 2.2 % Normal 0.0-3.0 Baso % 0.6 % Normal 0.0-1.0 Immature Granulocyte % 0.2 % Normal 0-3.0 Nucleated Red Blood Cell % 0.0 % Normal 0-0 Neutrophils # 3.6 10 Normal 1.5-8.5 Lymph # 2.0 10 Normal 1.5-5.0 [place] # 0.6 10 Normal 0.0-0.8 Eos # 0.1 10 Normal 0.0-0.5 Baso # 0.0 10 Normal 0.0-0.2 Liver Profile 07/28/2019 [facility] (I nterface) [phone] Ast/Sgot 12 U/L Normal 7-37 Alt/SGPT 17 U/L Normal 12-78 Alkaline Phosphatase 89 U/L Normal 45-117 Bilirubin,Total 0.3 mg/dL Normal 0.2-1.0 Bilirubin,Direct < 0.1 mg/dL Normal 0.0-0.2 Total Protein 6.3 GM/DL Low 6.4-8.2 Albumin 3.3 GM/DL Normal 3.2-5.2 Albumin/Globulin Ratio 1.1 Low 1.2-2.2 Laboratory test finding 07/28/2019 [facility] (Interface) [phone] Lipase 240 U/L Normal 73-393 CBC With [...] Little GFR Left ESRD GFR <15 on VEHICLE DELIV[employer] 8 Negative <36.0 Equivocal 36.0 - 43.9 Positive >43.9 Performed at: RN - [facility] [address] [id number] Chemist Water Purification: Virginie Acevedo MD, Phone: [phone] SRC:URINE 10 Source of Specimen: URINE [...] HCT IS 5% LESS SOURCE FOR DATA: [employer] 1800 OPERATION MANUAL( AUTOMATED BLOOD COUNTS AND [...] Little GFR Left ESRD GFR <15 on VEHICLE DELIVERY WORKER 19 Units are mL/min/1.73 m2 Chronic Kidney Disease Staging per NKF: Stage I & II GFR >=60 Normal to Mildly Decreased Stage III GFR 30-59 Moderately Decreased Stage IV GFR 15-29 Severely Decreased Stage V GFR <15 Very Little GFR Left ESRD GFR <15 on VEHICLE DELIVERY WORKER 20 This specimen has an elevate d potassium level but there is NO visible hemolysis noted. 21 DIAGNOSIS CRITERIA MMB ng/ml Relative Index (RI) NON-AMI < or = 5 N/A GIL ZONE > 5 < or = 4 AMI > 5 > 4 22 Troponin I Reference Interva l for Living Independently Group LOCI: 99th Percentile= 0.00-0.045 ng/ml Risk Stratification: [...] <7.0 Procedures Date Code Description Status 12/28/2019 37306 Electrocardiogram Complete Compl eted 11/22/2019 55859 Electrocardiogram Complete Compl eted 11/15/2019 [id number] Mammogram Completed Medical Devices Description No Information Available Encounters Type Date Location Provider Dx Diagnosis Office Visit 12/28/2019 1:15p [facility] Edgar Brown, DALE A R53.83 Other fatigue R06.02 Shortness of breath E11.9 Type 2 diabetes mellitus wit hout complications Office Visit 11/22/2019 1:30p [facility] Jamison Quiros M. D. R61 Generalized hyperhidrosis R42 Dizziness and giddiness I10 Essential (primary) hyperten stephanie E78.5 Hyperlipidemia, unspecified Office Visit 11/06/2019 10:00a [facility] Jamison Quiros M. D. J44.1 Chronic obstructive pulmonary disease w (acute) exacerbation E78.5 Hyperlipidemia, unspecified I10 Essential (primary) hyperten stephanie F41.9 Anxiety disorder, unspecifie d E11.9 Type 2 diabetes mellitus wit hout complications D50.9 Iron deficiency anemia, unsp ecified Z23 Encounter for immunization Office Visit 10/13/2019 2:00p [facility] Jamison Quiros M.D. W57.xxxA Bit/stung by nonvenom insect & oth nonve nom arthropods, init R21 Rash and other nonspecific s kin eruption Office Visit 09/05/2019 3:20p [facility] Jamison Quiros M. D. J44.1 Chronic obstructive pulmonary disease w (acute) exacerbation Office Visit 07/28/2019 10:20a [facility] Jamison Quiros M. D. E78.5 Hyperlipidemia, [...] Jamison Quiros M.D. 11/22/2019 E78.5 Hyperlipidemia, unspecified [facility] Jamison antonio M.D. 11/06/2019 J44.1 Chronic obstructive pulmonary disease with (acute) exacerbation Jamison Quiros M.D. 11/06/2019 E78.5 Hyperlipidemia, unspecified [facility] Jaimson antonio M.D. 11/06/2019 I10 Essential (primary) hypertension Jamison Quiros M.D. 11/06/2019 F41.9 Anxiety disorder, unspecified Dc Jamison duran M.D. 11/06/2019 E11.9 Type 2 [...] Jamison Quiros M.D. 07/28/2019 E78.5 Hyperlipidemia, unspecified [facility] Jamison antonio M.D. 07/28/2019 I10 Essential (primary) hypertension Jamison Quiros M.D. 07/28/2019 F41.9 Anxiety disorder, unspecified Dc Jamison duran M.D. 07/28/2019 E11.9 Type 2 diabetes mellitus without complications Jamison Quiros M.D. 07/28/2019 D50.9 Iron deficiency anemia, unspecif ied Jamison Quiros M.D. 07/28/2019 J44.1 Chronic obstructive pulmonary disease with (acute) exacerbation Jamison Quiros M.D. Plan of Treatment Future Appointment(s):* 01/12/2020 10:40 am - Edgar Brown RPA at [facility] * 02/20/2020 10:40 am - Jamison Quiros M.D. at [facility] Functional Status Description No Information Available Mental Status Description No Information Available Referrals Refer to Reason for Referral Status Appt Date [facility] Cardiology diaphoresis and light h eadedness in pt with multiple cardiac risk factors- eval and rx Sent 02/07/[address] [place] [address] [place], [place] [id number] [phone]
--- OUTSIDE RECORDS SUMMARY | 2020-03-13 18:01 | CCD | Continuity of Care Document ---
Author Author Elsy BROWN [facility] Unknown Address [address] [place] [address] Phone [phone] Problems Active Problems Provider Date Essential hypertension [...] CPT Code Status Date Vaccine Lot # [id number] Given 11/06/2019 Influenza Virus Vaccine, Quadrivalent, Slit Virus, Im Use 3Y & Up [id number] Given 01/04/2019 Influenza Virus Vaccine, Quadrivalent, Slit Virus, Im Use 3Y & Up [id number] Vital Signs Date Vital Result Comment 11/22/2019 1:51pm BP Systolic 124 mmHg BP Diastolic 70 mmHg Body Temperature 98.5 F Heart Rate 72 /min Respiratory Rate 16 /min Height 60.5 inches 5'0.50" Weight 188.00 lb [place] Body Weight 100 lb BMI (Body Mass Index) 36.1 kg/m2 O2 % BldC Oximetry 97 % 11/06/2019 9:49am BP Systolic 122 mmHg BP Diastolic 66 mmHg Body Temperature 98.2 F Heart Rate 70 /min Respiratory Rate 14 /min Height 60.5 inches 5'0.50" Weight 191.00 lb [place] Body Weight 100 lb BMI (Body Mass Index) 36.7 kg/m2 O2 % BldC Oximetry 97 % Results Test Acquired Date Facility Test Result H/L Range Note Urinalysis 12/31/2019 [place] [address] [phone] Urinalysis (SEE NOTE) 1, 2 Source Clean Catch Color yellow Normal: Yellow Clarity clear Normal: Clear Spec [place] 1.010 1.001 - 1.030 pH 6.5 5 [...] Normal: None Seen Laboratory test finding 12/31/2019 [facility] [place] [address] [phone] D-Dimer <0.27 ug/mL 0.27 - 0.50 CBC W/Automated Diff 12/31/2019 [facility] [place] [address] [phone] CBC W/Automated Diff (SEE NOTE) 3 WBC [...] 80.0 Lymph 28.0 % 25.0 - 40.0 [place] 7.4 % 3.0 - 8.0 Eos 3.9 % 0.0 - 7.0 Baso 0.5 % 0.0 - 2.5 %Ig 0.2 % High 0.0 - 0.0 %NRBC 0.0 % 0.0 - 0.0 #Neut 3.88 10^3/uL 2.00 - 6.90 #Lymph 1.81 10^3/uL 0.60 - 3.40 #[place] 0.48 10^3/uL 0.00 - 0.90 #Eos 0.25 10^3/uL 0.00 - 0.70 #Baso 0.03 10^3/uL 0.00 - 0.20 #Ig 0.01 10^3/uL 0.00 - 0.10 #NRBC 0.00 10^3/uL 0.00 - 0.00 Manual Diff NOT INDICATED RBC Morph NOT INDICATED Laboratory test finding 12/31/2019 [place] [address] [phone] Troponin T <0.01 NG/ML 0.00 - 0.10 4 Pro-BNP 144 pg/mL High 0 - 125 Comprehensive Metabolic Panel 12/31/2019 [place] [address] [phone] Comprehensive Metabo (SEE NOTE) 5 Sodium 140 [...] GFR >60 6 CBC With Differential 12/28/2019 [facility]) [phone] White Blood Count 8.7 10 Normal 4.0-10.0 [...] 36.0-66.0 Lymph % 19.4 % Low 24.0-44.0 [place] % 6.7 % High 0.0-5.0 Eos % 1.6 % Normal 0.0-3.0 Baso % 0.3 % Normal 0.0-1.0 Immature Granulocyte % 0.2 % Normal 0-3.0 Nucleated Red Blood Cell % 0.0 % Normal 0-0 Neutrophils # 6.2 10 Normal 1.5-8.5 Lymph # 1.7 10 Normal 1.5-5.0 [place] # 0.6 10 Normal 0.0-0.8 Eos # 0.1 10 Normal 0.0-0.5 Baso # 0.0 10 Normal 0.0-0.2 Comprehensive Metabolic Profil 12/28/2019 [facility]) [phone] Glucose, Fasting 63 mg/dL Low 70-100 Blood [...] 1.2 Normal 1.2-2.2 Laboratory test finding 12/28/2019 [facility] (Interface) [phone] Ebv Viral Capsid Ag IgM <36.0 U/mL Normal 0.0-35.9 8 U/A DIP FPA 12/28/2019 [facility] Practice Asso ciates Color Urine YELLOW Yellow Appearance CLEAR Clear Specific [place] 1.020 1.00-1.03 PH Urine 6.5 5.0-8.0 Glucose Urine NEG Negative Bilirubin Urine NEG Negative Ketones NEG Negative Blood Urine NEG Negative Protein Urine NEG Negative Urobilinogen .2 EU/dl 0.2-1.0 Nitrite NEG Negative Leukocytes TRACE Negative Urine Culture, Routine 12/28/2019 [facility] [place] Urine Culture, Routine Final report 9, 1 0 Result 1 No growth 11 Laboratory test finding 12/28/2019 [facility] Glucometer-[facility] 82 mg/dL 65-109 Microalb/Creat Ratio 11/06/2019 [facility]/Inhouse [...] eGFR 76 # Calc 14 eGFR Non-Afr. [place] 65 # Calc 15 CBC 11/06/2019 [facility]/Inhouse [...] Ratio 2.2 CALC Laboratory test [facility] [phone] Vitamin B12 Level 379 pg/mL Normal 247-911 16 Folate 11.9 NG/ML Normal >5.4 17 Ferritin 7 NG/ML Low 8-252 Total Iron Binding Capacit 09/15/2019 [facility] ical (Interface) [phone] Iron (Fe) 30 g/dL Low 50-170 Total Iron Binding Capacity 486 g/dL High 250-450 Percent Saturation 6.2 % Low 13.2-45.0 CBC With Differential 09/15/2019 [facility] (Interface) [phone] White Blood Count 5.2 10 Normal 4.0-10.0 [...] 36.0-66.0 Lymph % 36.2 % Normal 24.0-44.0 [place] % 7.9 % High 0.0-5.0 Eos % 2.9 % Normal 0.0-3.0 Baso % 0.6 % Normal 0.0-1.0 Immature Granulocyte % 0.4 % Normal 0-3.0 Nucleated Red Blood Cell % 0.0 % Normal 0-0 Neutrophils # 2.7 10 Normal 1.5-8.5 Lymph # 1.9 10 Normal 1.5-5.0 [place] # 0.4 10 Normal 0.0-0.8 Eos # 0.2 10 Normal 0.0-0.5 Baso # 0.0 10 Normal 0.0-0.2 Creatinine With GFR 09/15/2019 [facility] (I nterface) [phone] Creatinine For GFR 0.93 mg/dL Normal 0.55-1.30 Glomerular Filtration Rate > 60.0 Normal >45 1 8 Laboratory test finding 09/15/2019 [facility] (Interface) [phone] Blood Urea Nitrogen 20 mg/dL High 7-18 Ua W/ Reflex To Culture 08/31/2019 [facility] (Interface) [phone] Appearance, Urine RFX CLEAR Normal Clear Color, Urine RFX STRAW Normal Yellow PH,Urine RFX 5.0 units Normal 5.0-9.0 Specific [place] Ur Auto RFX 1.009 Normal 1.002-1.035 Protein, [...] test finding 08/30/2019 [facility] (Interface) [phone] Bedside Glucose 90 mg/dL Normal 80-115 Laboratory test finding 08/30/2019 [facility] (Interface) [phone] Lipase 258 U/L Normal 73-393 Basic Metabolic Profile 08/30/2019 [facility] (Interface) [phone] Glucose, Fasting 164 mg/dL High 70-100 Blood [...] 9.0 mg/dL Normal 8.8-10.2 Liver Profile 08/30/2019 [facility] (I nterface) [phone] Ast/Sgot 37 U/L Normal 7-37 Alt/SGPT 28 U/L Normal 12-78 Alkaline Phosphatase 107 U/L Normal 45-117 Bilirubin,Total 0.3 mg/dL Normal 0.2-1.0 Bilirubin,Direct < 0.1 mg/dL Normal 0.0-0.2 Total Protein 7.3 GM/DL Normal 6.4-8.2 Albumin 3.6 GM/DL Normal 3.2-5.2 Albumin/Globulin Ratio 1.0 Low 1.2-2.2 Cardiac Marker Panel 08/30/2019 [facility]) [phone] CPK Creatine Phosphokinase 190 U/L Normal 26-19 2 CK-MB Value Mass 1.7 NG/ML Normal <3.6 MB/CK Relative Index 0.89 Normal < Or =4 21 Troponin I < 0.02 NG/ML Normal < 0.10 22 Prothrombin Time/Inr 08/30/2019 [facility]) [phone] Prothrombin Time 12.8 seconds Normal 11.8-14.0 Inr 0.99 Normal 23 CBC With Differential 08/30/2019 [facility]) [phone] White Blood Count 9.4 10 Normal 4.0-10.0 [...] 36.0-66.0 Lymph % 18.8 % Low 24.0-44.0 [place] % 3.7 % Normal 0.0-5.0 Eos % 0.5 % Normal 0.0-3.0 Baso % 0.3 % Normal 0.0-1.0 Immature Granulocyte % 0.3 % Normal 0-3.0 Nucleated Red Blood Cell % 0.0 % Normal 0-0 Neutrophils # 7.2 10 Normal 1.5-8.5 Lymph # 1.8 10 Normal 1.5-5.0 [place] # 0.4 10 Normal 0.0-0.8 Eos # 0.1 10 Normal 0.0-0.5 Baso # 0.0 10 Normal 0.0-0.2 Laboratory test finding 07/28/2019 [facility] (Interface) [phone] iSTAT Troponin 0.00 NG/ML Normal 0.00-0.08 Istat Chem8+ Panel 07/28/2019 [facility] [phone] iSTAT HCT 35.0 % Low 38.0-51.0 iSTAT Glucose 257 mg/dL High 70-105 iSTAT Sodium 137 mEq/L Normal 136-145 iSTAT Potassium 4.1 mEq/L Normal 3.5-5.1 iSTAT CA++ 4.5 mg/dL Normal 4.5-5.3 iSTAT Chloride 101 mEq/L Normal 98-109 iSTAT Co2 24.0 MM/L Normal 23.0-27.0 iSTAT BUN 18 mg/dL Normal 8-26 iSTAT Creatinine 0.9 mg/dL Normal 0.6-1.3 Laboratory test finding 07/28/2019 [facility] (Interface) [phone] iSTAT Troponin 0.00 NG/ML Normal 0.00-0.08 CBC With Differential 07/28/2019 [facility] (Interface) [phone] White Blood Count 6.3 10 Normal 4.0-10.0 [...] 36.0-66.0 Lymph % 31.2 % Normal 24.0-44.0 [place] % 9.0 % High 0.0-5.0 Eos % 2.2 % Normal 0.0-3.0 Baso % 0.6 % Normal 0.0-1.0 Immature Granulocyte % 0.2 % Normal 0-3.0 Nucleated Red Blood Cell % 0.0 % Normal 0-0 Neutrophils # 3.6 10 Normal 1.5-8.5 Lymph # 2.0 10 Normal 1.5-5.0 [place] # 0.6 10 Normal 0.0-0.8 Eos # 0.1 10 Normal 0.0-0.5 Baso # 0.0 10 Normal 0.0-0.2 Liver Profile 07/28/2019 [facility] (I nterface) [phone] Ast/Sgot 12 U/L Normal 7-37 Alt/SGPT 17 U/L Normal 12-78 Alkaline Phosphatase 89 U/L Normal 45-117 Bilirubin,Total 0.3 mg/dL Normal 0.2-1.0 Bilirubin,Direct < 0.1 mg/dL Normal 0.0-0.2 Total Protein 6.3 GM/DL Low 6.4-8.2 Albumin 3.3 GM/DL Normal 3.2-5.2 Albumin/Globulin Ratio 1.1 Low 1.2-2.2 Laboratory test finding 07/28/2019 [facility] (Interface) [phone] Lipase 240 U/L Normal 73-393 CBC With [...] Little GFR Left ESRD GFR <15 on CODING MANAGER 8 Negative <36.0 Equivocal 36.0 - 43.9 Positive >43.9 Performed at: RN - [facility] [address] [id number] [place]: Virginie Acevedo MD, Phone: [phone] SRC:URINE 10 Source of Specimen: URINE [...] HCT IS 5% LESS SOURCE FOR DATA: [email or web address] OPERATION MANUAL( AUTOMATED BLOOD COUNTS AND [...] Little GFR Left ESRD GFR <15 on CODING MANAGER 19 Units are mL/min/1.73 m2 Chronic Kidney Disease Staging per NKF: Stage I & II GFR >=60 Normal to Mildly Decreased Stage III GFR 30-59 Moderately Decreased Stage IV GFR 15-29 Severely Decreased Stage V GFR <15 Very Little GFR Left ESRD GFR <15 on CODING MANAGER 20 This specimen has an elevate d potassium level but there is NO visible hemolysis noted. 21 DIAGNOSIS CRITERIA MMB ng/ml Relative Index (RI) NON-AMI < or = 5 N/A GIL ZONE > 5 < or = 4 AMI > 5 > 4 22 Troponin I Reference Interva l for StrikeAd LOCI: 99th Percentile= 0.00-0.045 ng/ml Risk Stratification: [...] <7.0 Procedures Date Code Description Status 12/28/2019 74184 Electrocardiogram Complete Compl eted 11/22/2019 65647 Electrocardiogram Complete Compl eted 11/15/2019 [id number] Mammogram Completed Medical Devices Description No Information Available Encounters Type Date Location Provider Dx Diagnosis Office Visit 12/28/2019 1:15p [facility] Edgar Brown, DALE A R53.83 Other fatigue R06.02 Shortness of breath E11.9 Type 2 diabetes mellitus wit hout complications Office Visit 11/22/2019 1:30p [facility] Jamison Quiros M. D. R61 Generalized hyperhidrosis R42 Dizziness and giddiness I10 Essential (primary) hyperten stephanie E78.5 Hyperlipidemia, unspecified Office Visit 11/06/2019 10:00a [facility] Jamison Quiros M. D. J44.1 Chronic obstructive pulmonary disease w (acute) exacerbation E78.5 Hyperlipidemia, unspecified I10 Essential (primary) hyperten stephanie F41.9 Anxiety disorder, unspecifie d E11.9 Type 2 diabetes mellitus wit hout complications D50.9 Iron deficiency anemia, unsp ecified Z23 Encounter for immunization Office Visit 10/13/2019 2:00p [facility] Jamison Quiros M.D. W57.xxxA Bit/stung by nonvenom insect & oth nonve nom arthropods, init R21 Rash and other nonspecific s kin eruption Office Visit 09/05/2019 3:20p [facility] Jamison Quiros M. D. J44.1 Chronic obstructive pulmonary disease w (acute) exacerbation Office Visit 07/28/2019 10:20a [facility] Jamison Quiros M. D. E78.5 Hyperlipidemia, [...] Jamison Quiros M.D. 11/22/2019 E78.5 Hyperlipidemia, unspecified [facility] Jamison antonio M.D. 11/06/2019 J44.1 Chronic obstructive pulmonary disease with (acute) exacerbation Jamison Quiros M.D. 11/06/2019 E78.5 Hyperlipidemia, unspecified [facility] Jamison antonio M.D. 11/06/2019 I10 Essential (primary) hypertension Jamison Quiros M.D. 11/06/2019 F41.9 Anxiety disorder, unspecified Ms Jamison duran M.D. 11/06/2019 E11.9 Type 2 [...] Jamison Quiros M.D. 07/28/2019 E78.5 Hyperlipidemia, unspecified [facility] Jamison antonio M.D. 07/28/2019 I10 Essential (primary) hypertension Jamison Quiros M.D. 07/28/2019 F41.9 Anxiety disorder, unspecified Ms Jamison duran M.D. 07/28/2019 E11.9 Type 2 diabetes mellitus without complications Jamison Quiros M.D. 07/28/2019 D50.9 Iron deficiency anemia, unspecif ied Jamison Quiros M.D. 07/28/2019 J44.1 Chronic obstructive pulmonary disease with (acute) exacerbation Jamison Quiros M.D. Plan of Treatment Future Appointment(s):* 01/12/2020 10:40 am - Edgar Brown RPA at [facility] * 02/20/2020 10:40 am - Jamison Quiros M.D. at [facility] Functional Status Description No Information Available Mental Status Description No Information Available Referrals Refer to Reason for Referral Status Appt Date [facility] Cardiology diaphoresis and light h eadedness in pt with multiple cardiac risk factors- eval and rx Sent 02/07/[address] Van [address] [place], [place] [id number] [phone]
--- OUTSIDE RECORDS SUMMARY | 2020-03-13 18:01 | CCD | Continuity of Care Document ---
Author Author Elsy BROWN [facility] Unknown Address [address] [facility] [address] [place] [address] Phone [phone] Problems Active Problems Provider Date Essential hypertension [...] CPT Code Status Date Vaccine Lot # [id number] Given 11/06/2019 Influenza Virus Vaccine, Quadrivalent, Slit Virus, Im Use 3Y & Up [id number] Given 01/04/2019 Influenza Virus Vaccine, Quadrivalent, Slit Virus, Im Use 3Y & Up [id number] Vital Signs Date Vital Result Comment 11/22/2019 1:51pm BP Systolic 124 mmHg BP Diastolic 70 mmHg Body Temperature 98.5 F Heart Rate 72 /min Respiratory Rate 16 /min Height 60.5 inches 5'0.50" Weight 188.00 lb [place] Body Weight 100 lb BMI (Body Mass Index) 36.1 kg/m2 O2 % BldC Oximetry 97 % 11/06/2019 9:49am BP Systolic 122 mmHg BP Diastolic 66 mmHg Body Temperature 98.2 F Heart Rate 70 /min Respiratory Rate 14 /min Height 60.5 inches 5'0.50" Weight 191.00 lb [place] Body Weight 100 lb BMI (Body Mass Index) 36.7 kg/m2 O2 % BldC Oximetry 97 % Results Test Acquired Date Facility Test Result H/L Range Note Urinalysis 12/31/2019 [place] [address] [phone] Urinalysis (SEE NOTE) 1, 2 Source Clean Catch Color yellow Normal: Yellow Clarity clear Normal: Clear Spec [place] 1.010 1.001 - 1.030 pH 6.5 5 [...] Normal: None Seen Laboratory test finding 12/31/2019 [facility] [address] [phone] D-Dimer <0.27 ug/mL 0.27 - 0.50 CBC W/Automated Diff 12/31/2019 [facility] [place] [address] [phone] CBC W/Automated Diff (SEE NOTE) 3 WBC [...] 80.0 Lymph 28.0 % 25.0 - 40.0 [place]ud[place]eth 7.4 % 3.0 - 8.0 Eos 3.9 % 0.0 - 7.0 Baso 0.5 % 0.0 - 2.5 %Ig 0.2 % High 0.0 - 0.0 %NRBC 0.0 % 0.0 - 0.0 #Neut 3.88 10^3/uL 2.00 - 6.90 #Lymph 1.81 10^3/uL 0.60 - 3.40 #Hudspeth 0.48 10^3/uL 0.00 - 0.90 #Eos 0.25 10^3/uL 0.00 - 0.70 #Baso 0.03 10^3/uL 0.00 - 0.20 #Ig 0.01 10^3/uL 0.00 - 0.10 #NRBC 0.00 10^3/uL 0.00 - 0.00 Manual Diff NOT INDICATED RBC Morph NOT INDICATED Laboratory test finding 12/31/2019 [place] [address] [phone] Troponin T <0.01 NG/ML 0.00 - 0.10 4 Pro-BNP 144 pg/mL High 0 - 125 Comprehensive Metabolic Panel 12/31/2019 [place] [address] [phone] Comprehensive Metabo (SEE NOTE) 5 Sodium 140 [...] GFR >60 6 CBC With Differential 12/28/2019 [facility]) [phone] White Blood Count 8.7 10 Normal 4.0-10.0 [...] 36.0-66.0 Lymph % 19.4 % Low 24.0-44.0 Hudspeth % 6.7 % High 0.0-5.0 Eos % 1.6 % Normal 0.0-3.0 Baso % 0.3 % Normal 0.0-1.0 Immature Granulocyte % 0.2 % Normal 0-3.0 Nucleated Red Blood Cell % 0.0 % Normal 0-0 Neutrophils # 6.2 10 Normal 1.5-8.5 Lymph # 1.7 10 Normal 1.5-5.0 Hudspeth # 0.6 10 Normal 0.0-0.8 Eos # 0.1 10 Normal 0.0-0.5 Baso # 0.0 10 Normal 0.0-0.2 Comprehensive Metabolic Profil 12/28/2019 [facility]) [phone] Glucose, Fasting 63 mg/dL Low 70-100 Blood [...] 1.2 Normal 1.2-2.2 Laboratory test finding 12/28/2019 [facility] (Interface) [phone] Ebv Viral Capsid Ag IgM <36.0 U/mL Normal 0.0-35.9 8 U/A DIP FPA 12/28/2019 [facility] Practice Asso ciates Color Urine YELLOW Yellow Appearance CLEAR Clear Specific Phelps 1.020 1.00-1.03 PH Urine 6.5 5.0-8.0 Glucose Urine NEG Negative Bilirubin Urine NEG Negative Ketones NEG Negative Blood Urine NEG Negative Protein Urine NEG Negative Urobilinogen .2 EU/dl 0.2-1.0 Nitrite NEG Negative Leukocytes TRACE Negative Urine Culture, Routine 12/28/2019 [facility] [place] Urine Culture, Routine Final report 9, 1 0 Result 1 No growth 11 Laboratory test finding 12/28/2019 [facility] 82 mg/dL 65-109 Microalb/Creat Ratio 11/06/2019 [...] eGFR 76 # Calc 14 eGFR Non-Afr. Moroccan 65 # Calc 15 CBC 11/06/2019 FPA/Inhouse [...] Ratio 2.2 CALC Laboratory test [facility] [phone] Vitamin B12 Level 379 pg/mL Normal 247-911 16 Folate 11.9 NG/ML Normal >5.4 17 Ferritin 7 NG/ML Low 8-252 Total Iron Binding Capacit 09/15/2019 [facility] ical (Interface) [phone] Iron (Fe) 30 g/dL Low 50-170 Total Iron Binding Capacity 486 g/dL High 250-450 Percent Saturation 6.2 % Low 13.2-45.0 CBC With Differential 09/15/2019 [facility] (Interface) [phone] White Blood Count 5.2 10 Normal 4.0-10.0 [...] 36.0-66.0 Lymph % 36.2 % Normal 24.0-44.0 Hudspeth % 7.9 % High 0.0-5.0 Eos % 2.9 % Normal 0.0-3.0 Baso % 0.6 % Normal 0.0-1.0 Immature Granulocyte % 0.4 % Normal 0-3.0 Nucleated Red Blood Cell % 0.0 % Normal 0-0 Neutrophils # 2.7 10 Normal 1.5-8.5 Lymph # 1.9 10 Normal 1.5-5.0 Hudspeth # 0.4 10 Normal 0.0-0.8 Eos # 0.2 10 Normal 0.0-0.5 Baso # 0.0 10 Normal 0.0-0.2 Creatinine With GFR 09/15/2019 [facility] (I nterface) [phone] Creatinine For GFR 0.93 mg/dL Normal 0.55-1.30 Glomerular Filtration Rate > 60.0 Normal >45 1 8 Laboratory test finding 09/15/2019 [facility] (Interface) [phone] Blood Urea Nitrogen 20 mg/dL High 7-18 Ua W/ Reflex To Culture 08/31/2019 [facility] (Interface) [phone] Appearance, Urine RFX CLEAR Normal Clear Color, Urine RFX STRAW Normal Yellow PH,Urine RFX 5.0 units Normal 5.0-9.0 Specific Phelps Ur Auto RFX 1.009 Normal 1.002-1.035 Protein, [...] /LPF Normal 0-1 Laboratory test finding 08/30/2019 [facility] (Interface) [phone] Bedside Glucose 90 mg/dL Normal 80-115 Laboratory test finding 08/30/2019 [facility] (Interface) [phone] Lipase 258 U/L Normal 73-393 Basic Metabolic Profile 08/30/2019 [facility] (Interface) [phone] Glucose, Fasting 164 mg/dL High 70-100 Blood [...] 9.0 mg/dL Normal 8.8-10.2 Liver Profile 08/30/2019 [facility] (I nterface) [phone] Ast/Sgot 37 U/L Normal 7-37 Alt/SGPT 28 U/L Normal 12-78 Alkaline Phosphatase 107 U/L Normal 45-117 Bilirubin,Total 0.3 mg/dL Normal 0.2-1.0 Bilirubin,Direct < 0.1 mg/dL Normal 0.0-0.2 Total Protein 7.3 GM/DL Normal 6.4-8.2 Albumin 3.6 GM/DL Normal 3.2-5.2 Albumin/Globulin Ratio 1.0 Low 1.2-2.2 Cardiac Marker Panel 08/30/2019 [facility]) [phone] CPK Creatine Phosphokinase 190 U/L Normal 26-19 2 CK-MB Value Mass 1.7 NG/ML Normal <3.6 MB/CK Relative Index 0.89 Normal < Or =4 21 Troponin I < 0.02 NG/ML Normal < 0.10 22 Prothrombin Time/Inr 08/30/2019 [facility]) [phone] Prothrombin Time 12.8 seconds Normal 11.8-14.0 Inr 0.99 Normal 23 CBC With Differential 08/30/2019 [facility]) [phone] White Blood Count 9.4 10 Normal 4.0-10.0 [...] 36.0-66.0 Lymph % 18.8 % Low 24.0-44.0 Hudspeth % 3.7 % Normal 0.0-5.0 Eos % 0.5 % Normal 0.0-3.0 Baso % 0.3 % Normal 0.0-1.0 Immature Granulocyte % 0.3 % Normal 0-3.0 Nucleated Red Blood Cell % 0.0 % Normal 0-0 Neutrophils # 7.2 10 Normal 1.5-8.5 Lymph # 1.8 10 Normal 1.5-5.0 Hudspeth # 0.4 10 Normal 0.0-0.8 Eos # 0.1 10 Normal 0.0-0.5 Baso # 0.0 10 Normal 0.0-0.2 Laboratory test finding 07/28/2019 [facility] (Interface) [phone] iSTAT Troponin 0.00 NG/ML Normal 0.00-0.08 Istat Chem8+ Panel 07/28/2019 [facility] [phone] iSTAT HCT 35.0 % Low 38.0-51.0 iSTAT Glucose 257 mg/dL High 70-105 iSTAT Sodium 137 mEq/L Normal 136-145 iSTAT Potassium 4.1 mEq/L Normal 3.5-5.1 iSTAT CA++ 4.5 mg/dL Normal 4.5-5.3 iSTAT Chloride 101 mEq/L Normal 98-109 iSTAT Co2 24.0 MM/L Normal 23.0-27.0 iSTAT BUN 18 mg/dL Normal 8-26 iSTAT Creatinine 0.9 mg/dL Normal 0.6-1.3 Laboratory test finding 07/28/2019 [facility] (Interface) [phone] iSTAT Troponin 0.00 NG/ML Normal 0.00-0.08 CBC With Differential 07/28/2019 [facility] (Interface) [phone] White Blood Count 6.3 10 Normal 4.0-10.0 [...] 36.0-66.0 Lymph % 31.2 % Normal 24.0-44.0 Hudspeth % 9.0 % High 0.0-5.0 Eos % 2.2 % Normal 0.0-3.0 Baso % 0.6 % Normal 0.0-1.0 Immature Granulocyte % 0.2 % Normal 0-3.0 Nucleated Red Blood Cell % 0.0 % Normal 0-0 Neutrophils # 3.6 10 Normal 1.5-8.5 Lymph # 2.0 10 Normal 1.5-5.0 [place]ud[place]eth # 0.6 10 Normal 0.0-0.8 Eos # 0.1 10 Normal 0.0-0.5 Baso # 0.0 10 Normal 0.0-0.2 Liver Profile 07/28/2019 [facility] (I nterface) [phone] Ast/Sgot 12 U/L Normal 7-37 Alt/SGPT 17 U/L Normal 12-78 Alkaline Phosphatase 89 U/L Normal 45-117 Bilirubin,Total 0.3 mg/dL Normal 0.2-1.0 Bilirubin,Direct < 0.1 mg/dL Normal 0.0-0.2 Total Protein 6.3 GM/DL Low 6.4-8.2 Albumin 3.3 GM/DL Normal 3.2-5.2 Albumin/Globulin Ratio 1.1 Low 1.2-2.2 Laboratory test finding 07/28/2019 [facility] (Interface) [phone] Lipase 240 U/L Normal 73-393 CBC With [...] Little GFR Left ESRD GFR <15 on [employer] 8 Negative <36.0 Equivocal 36.0 - 43.9 Positive >43.9 Performed at: RN - [facility] [address] [id number] Sign Hanger: Virginie Acevedo MD, Phone: [phone] SRC:URINE 10 Source of Specimen: URINE [...] HCT IS 5% LESS SOURCE FOR DATA: [employer] 1800 OPERATION MANUAL( AUTOMATED BLOOD COUNTS AND [...] Little GFR Left ESRD GFR <15 on [employer] 19 Units are mL/min/1.73 m2 Chronic Kidney Disease Staging per NKF: Stage I & II GFR >=60 Normal to Mildly Decreased Stage III GFR 30-59 Moderately Decreased Stage IV GFR 15-29 Severely Decreased Stage V GFR <15 Very Little GFR Left ESRD GFR <15 on [employer] 20 This specimen has an elevate d potassium level but there is NO visible hemolysis noted. 21 DIAGNOSIS CRITERIA MMB ng/ml Relative Index (RI) NON-AMI < or = 5 N/A GIL ZONE > 5 < or = 4 AMI > 5 > 4 22 Troponin I Reference Interva l for Portapure LOCI: 99th Percentile= 0.00-0.045 ng/ml Risk Stratification: [...] <7.0 Procedures Date Code Description Status 12/28/2019 98476 Electrocardiogram Complete Compl eted 11/22/2019 80690 Electrocardiogram Complete Compl eted 11/15/2019 [id number] Mammogram Completed Medical Devices Description No Information Available Encounters Type Date Location Provider Dx Diagnosis Office Visit 12/28/2019 1:15p [facility] Edgar Brown, DALE A R53.83 Other fatigue R06.02 Shortness of breath E11.9 Type 2 diabetes mellitus wit hout complications Office Visit 11/22/2019 1:30p [facility] Jamison Quiros M. D. R61 Generalized hyperhidrosis R42 Dizziness and giddiness I10 Essential (primary) hyperten stephanie E78.5 Hyperlipidemia, unspecified Office Visit 11/06/2019 10:00a [facility] Jamison Quiros M. D. J44.1 Chronic obstructive pulmonary disease w (acute) exacerbation E78.5 Hyperlipidemia, unspecified I10 Essential (primary) hyperten stephanie F41.9 Anxiety disorder, unspecifie d E11.9 Type 2 diabetes mellitus wit hout complications D50.9 Iron deficiency anemia, unsp ecified Z23 Encounter for immunization Office Visit 10/13/2019 2:00p [facility] Jamison Quiros M.D. W57.xxxA Bit/stung by nonvenom insect & oth nonve nom arthropods, init R21 Rash and other nonspecific s kin eruption Office Visit 09/05/2019 3:20p [facility] Jamison Quiros M. D. J44.1 Chronic obstructive pulmonary disease w (acute) exacerbation Office Visit 07/28/2019 10:20a [facility] Jamison Quiros M. D. E78.5 Hyperlipidemia, [...] Jamison Quiros M.D. 11/22/2019 E78.5 Hyperlipidemia, unspecified [facility] Jamison antonio M.D. 11/06/2019 J44.1 Chronic obstructive pulmonary disease with (acute) exacerbation Jamsion Quiros M.D. 11/06/2019 E78.5 Hyperlipidemia, unspecified [facility] Jamison antonio M.D. 11/06/2019 I10 Essential (primary) hypertension Jamison Quiros M.D. 11/06/2019 F41.9 Anxiety disorder, unspecified [place] Jamison duran M.D. 11/06/2019 E11.9 Type 2 [...] Jamison Quiros M.D. 07/28/2019 E78.5 Hyperlipidemia, unspecified [facility] Jamison antonio M.D. 07/28/2019 I10 Essential (primary) hypertension Jamison Quiros M.D. 07/28/2019 F41.9 Anxiety disorder, unspecified [place] Jamison duran M.D. 07/28/2019 E11.9 Type 2 diabetes mellitus without complications Jamison Quiros M.D. 07/28/2019 D50.9 Iron deficiency anemia, unspecif ied Jamison Quiros M.D. 07/28/2019 J44.1 Chronic obstructive pulmonary disease with (acute) exacerbation Jamison Quiros M.D. Plan of Treatment Future Appointment(s):* 01/12/2020 10:40 am - Edgar Brown RPA at [facility] * 02/20/2020 10:40 am - Jamison Quiros M.D. at [facility] Functional Status Description No Information Available Mental Status Description No Information Available Referrals Refer to Reason for Referral Status Appt Date [facility] Cardiology diaphoresis and light h eadedness in pt with multiple cardiac risk factors- eval and rx Sent 02/07/[address] Van [address] [place], [place] [id number] [phone]
--- OUTSIDE RECORDS SUMMARY | 2020-03-13 18:01 | CCD | Continuity of Care Document ---
Author Author Elsy QUIROS M.D. Organization Unknown Address [address] [place] [id number] Phone [phone] Problems Active Problems Provider Date Essential hypertension [...] CPT Code Status Date Vaccine Lot # [id number] Given 11/06/2019 Influenza Virus Vaccine, Quadrivalent, Slit Virus, Im Use 3Y & Up [id number] Given 01/04/2019 Influenza Virus Vaccine, Quadrivalent, Slit Virus, Im Use 3Y & Up [id number] Vital Signs Date Vital Result Comment 11/22/2019 1:51pm BP Systolic 124 mmHg BP Diastolic 70 mmHg Body Temperature 98.5 F Heart Rate 72 /min Respiratory Rate 16 /min Height 60.5 inches 5'0.50" Weight 188.00 lb [place] Body Weight 100 lb BMI (Body Mass Index) 36.1 kg/m2 O2 % BldC Oximetry 97 % 11/06/2019 9:49am BP Systolic 122 mmHg BP Diastolic 66 mmHg Body Temperature 98.2 F Heart Rate 70 /min Respiratory Rate 14 /min Height 60.5 inches 5'0.50" Weight 191.00 lb [place] Body Weight 100 lb BMI (Body Mass Index) 36.7 kg/m2 O2 % BldC Oximetry 97 % Results Test Acquired Date Facility Test Result H/L Range Note Urinalysis 12/31/2019 [place] [address] [phone] Urinalysis (SEE NOTE) 1, 2 Source Clean Catch Color yellow Normal: Yellow Clarity clear Normal: Clear Spec [place] 1.010 1.001 - 1.030 pH 6.5 5 [...] Normal: None Seen Laboratory test finding 12/31/2019 [facility] [place] [address] [phone] D-Dimer <0.27 ug/mL 0.27 - 0.50 CBC W/Automated Diff 12/31/2019 [place] [address] [phone] CBC W/Automated Diff (SEE NOTE) 3 WBC [...] 80.0 Lymph 28.0 % 25.0 - 40.0 [place] 7.4 % 3.0 - 8.0 Eos 3.9 % 0.0 - 7.0 Baso 0.5 % 0.0 - 2.5 %Ig 0.2 % High 0.0 - 0.0 %NRBC 0.0 % 0.0 - 0.0 #Neut 3.88 10^3/uL 2.00 - 6.90 #Lymph 1.81 10^3/uL 0.60 - 3.40 #[place] 0.48 10^3/uL 0.00 - 0.90 #Eos 0.25 10^3/uL 0.00 - 0.70 #Baso 0.03 10^3/uL 0.00 - 0.20 #Ig 0.01 10^3/uL 0.00 - 0.10 #NRBC 0.00 10^3/uL 0.00 - 0.00 Manual Diff NOT INDICATED RBC Morph NOT INDICATED Laboratory test finding 12/31/2019 [place] [address] [phone] Troponin T <0.01 NG/ML 0.00 - 0.10 4 Pro-BNP 144 pg/mL High 0 - 125 Comprehensive Metabolic Panel 12/31/2019 [place] [address] [phone] Comprehensive Metabo (SEE NOTE) 5 Sodium 140 [...] GFR >60 6 CBC With Differential 12/28/2019 [facility]) [phone] White Blood Count 8.7 10 Normal 4.0-10.0 [...] 36.0-66.0 Lymph % 19.4 % Low 24.0-44.0 [place] % 6.7 % High 0.0-5.0 Eos % 1.6 % Normal 0.0-3.0 Baso % 0.3 % Normal 0.0-1.0 Immature Granulocyte % 0.2 % Normal 0-3.0 Nucleated Red Blood Cell % 0.0 % Normal 0-0 Neutrophils # 6.2 10 Normal 1.5-8.5 Lymph # 1.7 10 Normal 1.5-5.0 [place] # 0.6 10 Normal 0.0-0.8 Eos # 0.1 10 Normal 0.0-0.5 Baso # 0.0 10 Normal 0.0-0.2 Comprehensive Metabolic Profil 12/28/2019 [facility]) [phone] Glucose, Fasting 63 mg/dL Low 70-100 Blood [...] 1.2 Normal 1.2-2.2 Laboratory test finding 12/28/2019 [facility] (Interface) [phone] Ebv Viral Capsid Ag IgM <36.0 U/mL Normal 0.0-35.9 8 U/A DIP FPA 12/28/2019 [facility] Color Urine YELLOW Yellow Appearance CLEAR Clear Specific [place] 1.020 1.00-1.03 PH Urine 6.5 5.0-8.0 Glucose Urine NEG Negative Bilirubin Urine NEG Negative Ketones NEG Negative Blood Urine NEG Negative Protein Urine NEG Negative Urobilinogen .2 EU/dl 0.2-1.0 Nitrite NEG Negative Leukocytes TRACE Negative Urine Culture, Routine 12/28/2019 [facility] [place] Urine Culture, Routine Final report 9, 1 0 Result 1 No growth 11 Laboratory test finding 12/28/2019 [facility] Glucometer-[facility] 82 mg/dL 65-109 Microalb/Creat Ratio 11/06/2019 [...] eGFR 76 # Calc 14 eGFR Non-Afr. German 65 # Calc 15 CBC 11/06/2019 [facility]PA/Inhouse [...] Ratio 2.2 CALC Laboratory test [facility] [phone] Vitamin B12 Level 379 pg/mL Normal 247-911 16 Folate 11.9 NG/ML Normal >5.4 17 Ferritin 7 NG/ML Low 8-252 Total Iron Binding Capacit 09/15/2019 [facility] ical (Interface) [phone] Iron (Fe) 30 g/dL Low 50-170 Total Iron Binding Capacity 486 g/dL High 250-450 Percent Saturation 6.2 % Low 13.2-45.0 CBC With Differential 09/15/2019 [facility] (Interface) [phone] White Blood Count 5.2 10 Normal 4.0-10.0 [...] 36.0-66.0 Lymph % 36.2 % Normal 24.0-44.0 [place] % 7.9 % High 0.0-5.0 Eos % 2.9 % Normal 0.0-3.0 Baso % 0.6 % Normal 0.0-1.0 Immature Granulocyte % 0.4 % Normal 0-3.0 Nucleated Red Blood Cell % 0.0 % Normal 0-0 Neutrophils # 2.7 10 Normal 1.5-8.5 Lymph # 1.9 10 Normal 1.5-5.0 [place] # 0.4 10 Normal 0.0-0.8 Eos # 0.2 10 Normal 0.0-0.5 Baso # 0.0 10 Normal 0.0-0.2 Creatinine With GFR 09/15/2019 [facility] ([place]) [phone] Creatinine For GFR 0.93 mg/dL Normal 0.55-1.30 Glomerular Filtration Rate > 60.0 Normal >45 1 8 Laboratory test finding 09/15/2019 [facility] (Interface) [phone] Blood Urea Nitrogen 20 mg/dL High 7-18 Ua W/ Reflex To Culture 08/31/2019 [facility] (Interface) [phone] Appearance, Urine RFX CLEAR Normal Clear Color, Urine RFX STRAW Normal Yellow PH,Urine RFX 5.0 units Normal 5.0-9.0 Specific [place] Ur Auto RFX 1.009 Normal 1.002-1.035 Protein, [...] test finding 08/30/2019 [facility] (Interface) [phone] Bedside Glucose 90 mg/dL Normal 80-115 Laboratory test finding 08/30/2019 [facility] (Interface) [phone] Lipase 258 U/L Normal 73-393 Basic Metabolic Profile 08/30/2019 [facility] (Interface) [phone] Glucose, Fasting 164 mg/dL High 70-100 Blood [...] 9.0 mg/dL Normal 8.8-10.2 Liver Profile 08/30/2019 [facility] ([place]) [phone] Ast/Sgot 37 U/L Normal 7-37 Alt/SGPT 28 U/L Normal 12-78 Alkaline Phosphatase 107 U/L Normal 45-117 Bilirubin,Total 0.3 mg/dL Normal 0.2-1.0 Bilirubin,Direct < 0.1 mg/dL Normal 0.0-0.2 Total Protein 7.3 GM/DL Normal 6.4-8.2 Albumin 3.6 GM/DL Normal 3.2-5.2 Albumin/Globulin Ratio 1.0 Low 1.2-2.2 Cardiac Marker Panel 08/30/2019 [facility]) [phone] CPK Creatine Phosphokinase 190 U/L Normal 26-19 2 CK-MB Value Mass 1.7 NG/ML Normal <3.6 MB/CK Relative Index 0.89 Normal < Or =4 21 Troponin I < 0.02 NG/ML Normal < 0.10 22 Prothrombin Time/Inr 08/30/2019 [facility]) [phone] Prothrombin Time 12.8 seconds Normal 11.8-14.0 Inr 0.99 Normal 23 CBC With Differential 08/30/2019 [facility]) [phone] White Blood Count 9.4 10 Normal 4.0-10.0 [...] 36.0-66.0 Lymph % 18.8 % Low 24.0-44.0 [place] % 3.7 % Normal 0.0-5.0 Eos % 0.5 % Normal 0.0-3.0 Baso % 0.3 % Normal 0.0-1.0 Immature Granulocyte % 0.3 % Normal 0-3.0 Nucleated Red Blood Cell % 0.0 % Normal 0-0 Neutrophils # 7.2 10 Normal 1.5-8.5 Lymph # 1.8 10 Normal 1.5-5.0 [place] # 0.4 10 Normal 0.0-0.8 Eos # 0.1 10 Normal 0.0-0.5 Baso # 0.0 10 Normal 0.0-0.2 Laboratory test finding 07/28/2019 [facility] (Interface) [phone] iSTAT Troponin 0.00 NG/ML Normal 0.00-0.08 Istat Chem8+ Panel 07/28/2019 [facility] [phone] iSTAT HCT 35.0 % Low 38.0-51.0 iSTAT Glucose 257 mg/dL High 70-105 iSTAT Sodium 137 mEq/L Normal 136-145 iSTAT Potassium 4.1 mEq/L Normal 3.5-5.1 iSTAT CA++ 4.5 mg/dL Normal 4.5-5.3 iSTAT Chloride 101 mEq/L Normal 98-109 iSTAT Co2 24.0 MM/L Normal 23.0-27.0 iSTAT BUN 18 mg/dL Normal 8-26 iSTAT Creatinine 0.9 mg/dL Normal 0.6-1.3 Laboratory test finding 07/28/2019 [facility] (Interface) [phone] iSTAT Troponin 0.00 NG/ML Normal 0.00-0.08 CBC With Differential 07/28/2019 [facility] (Interface) [phone] White Blood Count 6.3 10 Normal 4.0-10.0 [...] 36.0-66.0 Lymph % 31.2 % Normal 24.0-44.0 [place] % 9.0 % High 0.0-5.0 Eos % 2.2 % Normal 0.0-3.0 Baso % 0.6 % Normal 0.0-1.0 Immature Granulocyte % 0.2 % Normal 0-3.0 Nucleated Red Blood Cell % 0.0 % Normal 0-0 Neutrophils # 3.6 10 Normal 1.5-8.5 Lymph # 2.0 10 Normal 1.5-5.0 [place] # 0.6 10 Normal 0.0-0.8 Eos # 0.1 10 Normal 0.0-0.5 Baso # 0.0 10 Normal 0.0-0.2 Liver Profile 07/28/2019 [facility] ([place]) [phone] Ast/Sgot 12 U/L Normal 7-37 Alt/SGPT 17 U/L Normal 12-78 Alkaline Phosphatase 89 U/L Normal 45-117 Bilirubin,Total 0.3 mg/dL Normal 0.2-1.0 Bilirubin,Direct < 0.1 mg/dL Normal 0.0-0.2 Total Protein 6.3 GM/DL Low 6.4-8.2 Albumin 3.3 GM/DL Normal 3.2-5.2 Albumin/Globulin Ratio 1.1 Low 1.2-2.2 Laboratory test finding 07/28/2019 [facility] (Interface) [phone] Lipase 240 U/L Normal 73-393 CBC With [...] Little GFR Left ESRD GFR <15 on [employer] 8 Negative <36.0 Equivocal 36.0 - 43.9 Positive >43.9 Performed at: RN - [facility] [address] [id number] Central Station Operator: Virginie Acevedo MD, Phone: [phone] SRC:URINE 10 Source of Specimen: URINE [...] HCT IS 5% LESS SOURCE FOR DATA: [employer] 1800 OPERATION MANUAL( AUTOMATED BLOOD COUNTS AND [...] Little GFR Left ESRD GFR <15 on [employer] 19 Units are mL/min/1.73 m2 Chronic Kidney Disease Staging per NKF: Stage I & II GFR >=60 Normal to Mildly Decreased Stage III GFR 30-59 Moderately Decreased Stage IV GFR 15-29 Severely Decreased Stage V GFR <15 Very Little GFR Left ESRD GFR <15 on [employer]ER 20 This specimen has an elevate d potassium level but there is NO visible hemolysis noted. 21 DIAGNOSIS CRITERIA MMB ng/ml Relative Index (RI) NON-AMI < or = 5 N/A GIL ZONE > 5 < or = 4 AMI > 5 > 4 22 Troponin I Reference Interva l for ClassifEye LOCI: 99th Percentile= 0.00-0.045 ng/ml Risk Stratification: [...] <7.0 Procedures Date Code Description Status 12/28/2019 61335 Electrocardiogram Complete Compl eted 11/22/2019 01013 Electrocardiogram Complete Compl eted 11/15/2019 82222874 Mammogram Completed Medical Devices Description No Information Available Encounters Type Date Location Provider Dx Diagnosis Office Visit 12/28/2019 1:15p [facility] Edgar Brown, DALE A R53.83 Other fatigue R06.02 Shortness of breath E11.9 Type 2 diabetes mellitus wit hout complications Office Visit 11/22/2019 1:30p [facility] Jamison Quiros M. D. R61 Generalized hyperhidrosis R42 Dizziness and giddiness I10 Essential (primary) hyperten stephanie E78.5 Hyperlipidemia, unspecified Office Visit 11/06/2019 10:00a [facility] Jamison Quiros M. D. J44.1 Chronic obstructive pulmonary disease w (acute) exacerbation E78.5 Hyperlipidemia, unspecified I10 Essential (primary) hyperten stephanie F41.9 Anxiety disorder, unspecifie d E11.9 Type 2 diabetes mellitus wit hout complications D50.9 Iron deficiency anemia, unsp ecified Z23 Encounter for immunization Office Visit 10/13/2019 2:00p [facility] Jamison Quiros M.D. W57.xxxA Bit/stung by nonvenom insect & oth nonve nom arthropods, init R21 Rash and other nonspecific s kin eruption Office Visit 09/05/2019 3:20p [facility] Jamison Quiros M. D. J44.1 Chronic obstructive pulmonary disease w (acute) exacerbation Office Visit 07/28/2019 10:20a [facility] Jamison Quiros M. D. E78.5 Hyperlipidemia, [...] Jamison Quiros M.D. 11/22/2019 E78.5 Hyperlipidemia, unspecified [facility] Jamison antonio M.D. 11/06/2019 J44.1 Chronic obstructive pulmonary disease with (acute) exacerbation Jamison Quiros M.D. 11/06/2019 E78.5 Hyperlipidemia, unspecified [facility] Jamison antonio M.D. 11/06/2019 I10 Essential (primary) hypertension Jamison Quiros M.D. 11/06/2019 F41.9 Anxiety disorder, unspecified [place] Jamison duran M.D. 11/06/2019 E11.9 Type 2 [...] Jamison Quiros M.D. 07/28/2019 E78.5 Hyperlipidemia, unspecified [facility] Jamison antonio M.D. 07/28/2019 I10 Essential (primary) hypertension Jamison Quiros M.D. 07/28/2019 F41.9 Anxiety disorder, unspecified [place] Jamison duran M.D. 07/28/2019 E11.9 Type 2 diabetes mellitus without complications Jamison Quiros M.D. 07/28/2019 D50.9 Iron deficiency anemia, unspecif ied Jamison Quiros M.D. 07/28/2019 J44.1 Chronic obstructive pulmonary disease with (acute) exacerbation Jamison Quiros M.D. Plan of Treatment Future Appointment(s):* 01/12/2020 10:40 am - Edgar Brown RPA at [facility] * 02/20/2020 10:40 am - Jamison Quiros M.D. at [facility] Functional Status Description No Information Available Mental Status Description No Information Available Referrals Refer to Reason for Referral Status Appt Date [facility] Cardiology diaphoresis and light h eadedness in pt with multiple cardiac risk factors- eval and rx Sent 02/07/[id number] [place], [place] [id number] [phone]
--- OUTSIDE RECORDS SUMMARY | 2020-03-13 18:02 | CCD | Continuity of Care Document ---
Author Author Elsy BROWN [facility] Unknown Address 3 [facility] 3 [place] [address] Phone [phone] Problems Active Problems Provider Date Essential hypertension [...] Twice A Day And as Needed 200units Jamsion Quiros M.D. 07/07/2019 Duloxetine HCL 60mg Caps [...] CPT Code Status Date Vaccine Lot # [id number] Given 11/06/2019 Influenza Virus Vaccine, Quadrivalent, Slit Virus, Im Use 3Y & Up [id number] Given 01/04/2019 Influenza Virus Vaccine, Quadrivalent, Slit Virus, Im Use 3Y & Up [id number] Vital Signs Date Vital Result Comment 11/22/2019 1:51pm BP Systolic 124 mmHg BP Diastolic 70 mmHg Body Temperature 98.5 F Heart Rate 72 /min Respiratory Rate 16 /min Height 60.5 inches 5'0.50" Weight 188.00 lb [place] Body Weight 100 lb BMI (Body Mass Index) 36.1 kg/m2 O2 % BldC Oximetry 97 % 11/06/2019 9:49am BP Systolic 122 mmHg BP Diastolic 66 mmHg Body Temperature 98.2 F Heart Rate 70 /min Respiratory Rate 14 /min Height 60.5 inches 5'0.50" Weight 191.00 lb [place] Body Weight 100 lb BMI (Body Mass Index) 36.7 kg/m2 O2 % BldC Oximetry 97 % Results Test Acquired Date Facility Test Result H/L Range Note Urinalysis 12/31/2019 [place] [address] [phone] Urinalysis (SEE NOTE) 1, 2 Source Clean Catch Color yellow Normal: Yellow Clarity clear Normal: Clear Spec [place] 1.010 1.001 - 1.030 pH 6.5 5 [...] Normal: None Seen Laboratory test finding 12/31/2019 [facility] [place] [address] [phone] D-Dimer <0.27 ug/mL 0.27 - 0.50 CBC W/Automated Diff 12/31/2019 [facility] [place] [address] [phone] CBC W/Automated Diff (SEE NOTE) 3 WBC [...] 80.0 Lymph 28.0 % 25.0 - 40.0 Dane 7.4 % 3.0 - 8.0 Eos 3.9 % 0.0 - 7.0 Baso 0.5 % 0.0 - 2.5 %Ig 0.2 % High 0.0 - 0.0 %NRBC 0.0 % 0.0 - 0.0 #Neut 3.88 10^3/uL 2.00 - 6.90 #Lymph 1.81 10^3/uL 0.60 - 3.40 #Dane 0.48 10^3/uL 0.00 - 0.90 #Eos 0.25 10^3/uL 0.00 - 0.70 #Baso 0.03 10^3/uL 0.00 - 0.20 #Ig 0.01 10^3/uL 0.00 - 0.10 #NRBC 0.00 10^3/uL 0.00 - 0.00 Manual Diff NOT INDICATED RBC Morph NOT INDICATED Laboratory test finding 12/31/2019 [place] [address] [phone] Troponin T <0.01 NG/ML 0.00 - 0.10 4 Pro-BNP 144 pg/mL High 0 - 125 Comprehensive Metabolic Panel 12/31/2019 [place] [address] [phone] Comprehensive Metabo (SEE NOTE) 5 Sodium 140 [...] GFR >60 6 CBC With Differential 12/28/2019 [facility]) [phone] White Blood Count 8.7 10 Normal 4.0-10.0 [...] 36.0-66.0 Lymph % 19.4 % Low 24.0-44.0 Dane % 6.7 % High 0.0-5.0 Eos % 1.6 % Normal 0.0-3.0 Baso % 0.3 % Normal 0.0-1.0 Immature Granulocyte % 0.2 % Normal 0-3.0 Nucleated Red Blood Cell % 0.0 % Normal 0-0 Neutrophils # 6.2 10 Normal 1.5-8.5 Lymph # 1.7 10 Normal 1.5-5.0 Dane # 0.6 10 Normal 0.0-0.8 Eos # 0.1 10 Normal 0.0-0.5 Baso # 0.0 10 Normal 0.0-0.2 Comprehensive Metabolic Profil 12/28/2019 [facility]) [phone] Glucose, Fasting 63 mg/dL Low 70-100 Blood [...] 1.2 Normal 1.2-2.2 Laboratory test finding 12/28/2019 [facility] l (Interface) [phone] Ebv Viral Capsid Ag IgM <36.0 U/mL Normal 0.0-35.9 8 U/A DIP FPA 12/28/2019 [facility] ci[facility] Color Urine YELLOW Yellow Appearance CLEAR Clear Specific [place] 1.020 1.00-1.03 PH Urine 6.5 5.0-8.0 Glucose Urine NEG Negative Bilirubin Urine NEG Negative Ketones NEG Negative Blood Urine NEG Negative Protein Urine NEG Negative Urobilinogen .2 EU/dl 0.2-1.0 Nitrite NEG Negative Leukocytes TRACE Negative Urine Culture, Routine 12/28/2019 [facility] [place] Urine Culture, Routine Final report 9, 1 0 Result 1 No growth 11 Laboratory test finding 12/28/2019 [facility] Glucometer-[facility] 82 mg/dL 65-109 Microalb/Creat Ratio 11/06/2019 [...] Ratio 2.2 CALC Laboratory test finding [facility] [phone] Vitamin B12 Level 379 pg/mL Normal 247-911 16 Folate 11.9 NG/ML Normal >5.4 17 Ferritin 7 NG/ML Low 8-252 Total Iron Binding Capacit 09/15/2019 [facility] ical (Interface) [phone] Iron (Fe) 30 g/dL Low 50-170 Total Iron Binding Capacity 486 g/dL High 250-450 Percent Saturation 6.2 % Low 13.2-45.0 CBC With Differential 09/15/2019 [facility] (Interface) [phone] White Blood Count 5.2 10 Normal 4.0-10.0 [...] 36.0-66.0 Lymph % 36.2 % Normal 24.0-44.0 Dane % 7.9 % High 0.0-5.0 Eos % 2.9 % Normal 0.0-3.0 Baso % 0.6 % Normal 0.0-1.0 Immature Granulocyte % 0.4 % Normal 0-3.0 Nucleated Red Blood Cell % 0.0 % Normal 0-0 Neutrophils # 2.7 10 Normal 1.5-8.5 Lymph # 1.9 10 Normal 1.5-5.0 Dane # 0.4 10 Normal 0.0-0.8 Eos # 0.2 10 Normal 0.0-0.5 Baso # 0.0 10 Normal 0.0-0.2 Creatinine With GFR 09/15/2019 [facility] (I nterface) [phone] Creatinine For GFR 0.93 mg/dL Normal 0.55-1.30 Glomerular Filtration Rate > 60.0 Normal >45 1 8 Laboratory test finding 09/15/2019 [facility] l (Interface) [phone] Blood Urea Nitrogen 20 mg/dL High 7-18 Ua W/ Reflex To Culture 08/31/2019 [facility] (Interface) [phone] Appearance, Urine RFX CLEAR Normal Clear Color, Urine RFX STRAW Normal Yellow PH,Urine RFX 5.0 units Normal 5.0-9.0 Specific [place] Ur Auto RFX 1.009 Normal 1.002-1.035 Protein, [...] test finding 08/30/2019 [facility] (Interface) [phone] Bedside Glucose 90 mg/dL Normal 80-115 Laboratory test finding 08/30/2019 [facility] (Interface) [phone] Lipase 258 U/L Normal 73-393 Basic Metabolic Profile 08/30/2019 [facility] (Interface) [phone] Glucose, Fasting 164 mg/dL High 70-100 Blood [...] 9.0 mg/dL Normal 8.8-10.2 Liver Profile 08/30/2019 [facility] (I nterface) [phone] Ast/Sgot 37 U/L Normal 7-37 Alt/SGPT 28 U/L Normal 12-78 Alkaline Phosphatase 107 U/L Normal 45-117 Bilirubin,Total 0.3 mg/dL Normal 0.2-1.0 Bilirubin,Direct < 0.1 mg/dL Normal 0.0-0.2 Total Protein 7.3 GM/DL Normal 6.4-8.2 Albumin 3.6 GM/DL Normal 3.2-5.2 Albumin/Globulin Ratio 1.0 Low 1.2-2.2 Cardiac Marker Panel 08/30/2019 [facility]) [phone] CPK Creatine Phosphokinase 190 U/L Normal 26-19 2 CK-MB Value Mass 1.7 NG/ML Normal <3.6 MB/CK Relative Index 0.89 Normal < Or =4 21 Troponin I < 0.02 NG/ML Normal < 0.10 22 Prothrombin Time/Inr 08/30/2019 [facility]) [phone] Prothrombin Time 12.8 seconds Normal 11.8-14.0 Inr 0.99 Normal 23 CBC With Differential 08/30/2019 [facility]) [phone] White Blood Count 9.4 10 Normal 4.0-10.0 [...] 36.0-66.0 Lymph % 18.8 % Low 24.0-44.0 Dane % 3.7 % Normal 0.0-5.0 Eos % 0.5 % Normal 0.0-3.0 Baso % 0.3 % Normal 0.0-1.0 Immature Granulocyte % 0.3 % Normal 0-3.0 Nucleated Red Blood Cell % 0.0 % Normal 0-0 Neutrophils # 7.2 10 Normal 1.5-8.5 Lymph # 1.8 10 Normal 1.5-5.0 Dane # 0.4 10 Normal 0.0-0.8 Eos # 0.1 10 Normal 0.0-0.5 Baso # 0.0 10 Normal 0.0-0.2 Laboratory test finding 07/28/2019 [facility] (Interface) [phone] iSTAT Troponin 0.00 NG/ML Normal 0.00-0.08 Istat Chem8+ Panel 07/28/2019 [facility] [phone] iSTAT HCT 35.0 % Low 38.0-51.0 iSTAT Glucose 257 mg/dL High 70-105 iSTAT Sodium 137 mEq/L Normal 136-145 iSTAT Potassium 4.1 mEq/L Normal 3.5-5.1 iSTAT CA++ 4.5 mg/dL Normal 4.5-5.3 iSTAT Chloride 101 mEq/L Normal 98-109 iSTAT Co2 24.0 MM/L Normal 23.0-27.0 iSTAT BUN 18 mg/dL Normal 8-26 iSTAT Creatinine 0.9 mg/dL Normal 0.6-1.3 Laboratory test finding 07/28/2019 [facility] (Interface) [phone] iSTAT Troponin 0.00 NG/ML Normal 0.00-0.08 CBC With Differential 07/28/2019 [facility] (Interface) [phone] White Blood Count 6.3 10 Normal 4.0-10.0 [...] 36.0-66.0 Lymph % 31.2 % Normal 24.0-44.0 Dane % 9.0 % High 0.0-5.0 Eos % 2.2 % Normal 0.0-3.0 Baso % 0.6 % Normal 0.0-1.0 Immature Granulocyte % 0.2 % Normal 0-3.0 Nucleated Red Blood Cell % 0.0 % Normal 0-0 Neutrophils # 3.6 10 Normal 1.5-8.5 Lymph # 2.0 10 Normal 1.5-5.0 Dane # 0.6 10 Normal 0.0-0.8 Eos # 0.1 10 Normal 0.0-0.5 Baso # 0.0 10 Normal 0.0-0.2 Liver Profile 07/28/2019 [facility] (I nterface) [phone] Ast/Sgot 12 U/L Normal 7-37 Alt/SGPT 17 U/L Normal 12-78 Alkaline Phosphatase 89 U/L Normal 45-117 Bilirubin,Total 0.3 mg/dL Normal 0.2-1.0 Bilirubin,Direct < 0.1 mg/dL Normal 0.0-0.2 Total Protein 6.3 GM/DL Low 6.4-8.2 Albumin 3.3 GM/DL Normal 3.2-5.2 Albumin/Globulin Ratio 1.1 Low 1.2-2.2 Laboratory test finding 07/28/2019 [facility] l (Interface) [phone] Lipase 240 U/L Normal 73-393 CBC With [...] Little GFR Left ESRD GFR <15 on TOOTH INSPECTOR 8 Negative <36.0 Equivocal 36.0 - 43.9 Positive >43.9 Performed at: RN - [facility] [address] [id number] Senior Controls Analyst: Virginie Acevedo MD, Phone: [phone] SRC:URINE 10 Source of Specimen: URINE [...] HCT IS 5% LESS SOURCE FOR DATA: [place] 1800 OPERATION MANUAL( AUTOMATED BLOOD COUNTS AND [...] Little GFR Left ESRD GFR <15 on TOOTH INSPECTOR 19 Units are mL/min/1.73 m2 Chronic Kidney Disease Staging per NKF: Stage I & II GFR >=60 Normal to Mildly Decreased Stage III GFR 30-59 Moderately Decreased Stage IV GFR 15-29 Severely Decreased Stage V GFR <15 Very Little GFR Left ESRD GFR <15 on TOOTH INSPECTOR 20 This specimen has an elevate d potassium level but there is NO visible hemolysis noted. 21 DIAGNOSIS CRITERIA MMB ng/ml Relative Index (RI) NON-AMI < or = 5 N/A GIL ZONE > 5 < or = 4 AMI > 5 > 4 22 Troponin I Reference Interva l for [employer] LOCI: 99th Percentile= 0.00-0.045 ng/ml Risk Stratification: [...] <7.0 Procedures Date Code Description Status 12/28/2019 82096 Electrocardiogram Complete Compl eted 11/22/2019 49170 Electrocardiogram Complete Compl eted 11/15/2019 [id number] Mammogram Completed Medical Devices Description No Information Available Encounters Type Date Location Provider Dx Diagnosis Office Visit 12/28/2019 1:15p [place] [facility] Edgar Brown, DALE A R53.83 Other fatigue R06.02 Shortness of breath E11.9 Type 2 diabetes mellitus wit hout complications Office Visit 11/22/2019 1:30p [place] [facility] Jamison Quiros M. D. R61 Generalized hyperhidrosis R42 Dizziness and giddiness I10 Essential (primary) hyperten stephanie E78.5 Hyperlipidemia, unspecified Office Visit 11/06/2019 10:00a [place] [facility] Jamison Quiros M. D. J44.1 Chronic obstructive pulmonary disease w (acute) exacerbation E78.5 Hyperlipidemia, unspecified I10 Essential (primary) hyperten stephanie F41.9 Anxiety disorder, unspecifie d E11.9 Type 2 diabetes mellitus wit hout complications D50.9 Iron deficiency anemia, unsp ecified Z23 Encounter for immunization Office Visit 10/13/2019 2:00p [place] [facility] Jamison Quiros M.D. W57.xxxA Bit/stung by nonvenom insect & oth nonve nom arthropods, init R21 Rash and other nonspecific s kin eruption Office Visit 09/05/2019 3:20p [place] [facility] Jamison Quiros M. D. J44.1 Chronic obstructive pulmonary disease w (acute) exacerbation Office Visit 07/28/2019 10:20a [place] [facility] Jamison Quiros M. D. E78.5 Hyperlipidemia, [...] Jamison Quiros M.D. 11/22/2019 E78.5 Hyperlipidemia, unspecified [facility] Jamison antonio M.D. 11/06/2019 J44.1 Chronic obstructive pulmonary disease with (acute) exacerbation Jamison Quiros M.D. 11/06/2019 E78.5 Hyperlipidemia, unspecified [facility] Jamison antonio M.D. 11/06/2019 I10 Essential (primary) hypertension Jamison Quiros M.D. 11/06/2019 F41.9 Anxiety disorder, unspecified [place] Jamison duran M.D. 11/06/2019 E11.9 Type 2 [...] Jamison Quiros M.D. 07/28/2019 E78.5 Hyperlipidemia, unspecified [facility] Jamison antonio M.D. 07/28/2019 I10 Essential (primary) hypertension Jamison Quiros M.D. 07/28/2019 F41.9 Anxiety disorder, unspecified [place] Jamison duran M.D. 07/28/2019 E11.9 Type 2 diabetes mellitus without complications Jamison Quiros M.D. 07/28/2019 D50.9 Iron deficiency anemia, unspecif ied Jamison Quiros M.D. 07/28/2019 J44.1 Chronic obstructive pulmonary disease with (acute) exacerbation Jamison Quiros M.D. Plan of Treatment Future Appointment(s):* 01/12/2020 10:40 am - Edgar Brown RPA at [facility] * 02/20/2020 10:40 am - Jamison Quiros M.D. at [facility] Functional Status Description No Information Available Mental Status Description No Information Available Referrals Refer to Reason for Referral Status Appt Date CT [facility] [place] Cardiology diaphoresis and light h eadedness in pt with multiple cardiac risk factors- eval and rx Sent 02/07/[id number] [place] [address] [place], [place] [id number] [phone]
--- OUTSIDE RECORDS SUMMARY | 2020-03-13 18:02 | CCD | Continuity of Care Document ---
Author Author Elsy BROWN [facility] Unknown Address 3 [facility] 3 [place] [address] Phone [phone] Problems Active Problems Provider Date Essential hypertension [...] CPT Code Status Date Vaccine Lot # [id number] Given 11/06/2019 Influenza Virus Vaccine, Quadrivalent, Slit Virus, Im Use 3Y & Up [id number] Given 01/04/2019 Influenza Virus Vaccine, Quadrivalent, Slit Virus, Im Use 3Y & Up [id number] Vital Signs Date Vital Result Comment 11/22/2019 1:51pm BP Systolic 124 mmHg BP Diastolic 70 mmHg Body Temperature 98.5 F Heart Rate 72 /min Respiratory Rate 16 /min Height 60.5 inches 5'0.50" Weight 188.00 lb [place] Body Weight 100 lb BMI (Body Mass Index) 36.1 kg/m2 O2 % BldC Oximetry 97 % 11/06/2019 9:49am BP Systolic 122 mmHg BP Diastolic 66 mmHg Body Temperature 98.2 F Heart Rate 70 /min Respiratory Rate 14 /min Height 60.5 inches 5'0.50" Weight 191.00 lb [place] Body Weight 100 lb BMI (Body Mass Index) 36.7 kg/m2 O2 % BldC Oximetry 97 % Results Test Acquired Date Facility Test Result H/L Range Note Urinalysis 12/31/2019 [place] [address] [phone] Urinalysis (SEE NOTE) 1, 2 Source Clean Catch Color yellow Normal: Yellow Clarity clear Normal: Clear Spec [place] 1.010 1.001 - 1.030 pH 6.5 5 [...] Normal: None Seen Laboratory test finding 12/31/2019 [facility] [place] [address] [phone] D-Dimer <0.27 ug/mL 0.27 - 0.50 CBC W/Automated Diff 12/31/2019 [facility] [place] [address] [phone] CBC W/Automated Diff (SEE NOTE) 3 WBC [...] 80.0 Lymph 28.0 % 25.0 - 40.0 Holt 7.4 % 3.0 - 8.0 Eos 3.9 % 0.0 - 7.0 Baso 0.5 % 0.0 - 2.5 %Ig 0.2 % High 0.0 - 0.0 %NRBC 0.0 % 0.0 - 0.0 #Neut 3.88 10^3/uL 2.00 - 6.90 #Lymph 1.81 10^3/uL 0.60 - 3.40 #Holt 0.48 10^3/uL 0.00 - 0.90 #Eos 0.25 10^3/uL 0.00 - 0.70 #Baso 0.03 10^3/uL 0.00 - 0.20 #Ig 0.01 10^3/uL 0.00 - 0.10 #NRBC 0.00 10^3/uL 0.00 - 0.00 Manual Diff NOT INDICATED RBC Morph NOT INDICATED Laboratory test finding 12/31/2019 [place] [address] [phone] Troponin T <0.01 NG/ML 0.00 - 0.10 4 Pro-BNP 144 pg/mL High 0 - 125 Comprehensive Metabolic Panel 12/31/2019 [place] [address] [phone] Comprehensive Metabo (SEE NOTE) 5 Sodium 140 [...] CBC With Differential 12/28/2019 [facility]) [phone] White Blood Count 8.7 10 Normal 4.0-10.0 [...] 36.0-66.0 Lymph % 19.4 % Low 24.0-44.0 Holt % 6.7 % High 0.0-5.0 Eos % 1.6 % Normal 0.0-3.0 Baso % 0.3 % Normal 0.0-1.0 Immature Granulocyte % 0.2 % Normal 0-3.0 Nucleated Red Blood Cell % 0.0 % Normal 0-0 Neutrophils # 6.2 10 Normal 1.5-8.5 Lymph # 1.7 10 Normal 1.5-5.0 Holt # 0.6 10 Normal 0.0-0.8 Eos # 0.1 10 Normal 0.0-0.5 Baso # 0.0 10 Normal 0.0-0.2 Comprehensive Metabolic Profil 12/28/2019 [facility]) [phone] Glucose, Fasting 63 mg/dL Low 70-100 Blood [...] 1.2 Normal 1.2-2.2 Laboratory test finding 12/28/2019 [facility] l (Interface) [phone] Ebv Viral Capsid Ag IgM <36.0 U/mL Normal 0.0-35.9 8 U/A DIP FPA 12/28/2019 [facility] Asso ciates Color Urine YELLOW Yellow Appearance CLEAR Clear Specific Reubens 1.020 1.00-1.03 PH Urine 6.5 5.0-8.0 Glucose Urine NEG Negative Bilirubin Urine NEG Negative Ketones NEG Negative Blood Urine NEG Negative Protein Urine NEG Negative Urobilinogen .2 EU/dl 0.2-1.0 Nitrite NEG Negative Leukocytes TRACE Negative Urine Culture, Routine 12/28/2019 [facility] [place] Urine Culture, Routine Final report 9, 1 0 Result 1 No growth 11 Laboratory test finding 12/28/2019 [facility] [...] eGFR 76 # Calc 14 eGFR Non-Afr. Dominican 65 # Calc 15 CBC 11/06/2019 [facility]PA/Inhouse [...] Ratio 2.2 CALC Laboratory [facility] [phone] Vitamin B12 Level 379 pg/mL Normal 247-911 16 Folate 11.9 NG/ML Normal >5.4 17 Ferritin 7 NG/ML Low 8-252 Total Iron Binding Capacit 09/15/2019 [facility] ical (Interface) [phone] Iron (Fe) 30 g/dL Low 50-170 Total Iron Binding Capacity 486 g/dL High 250-450 Percent Saturation 6.2 % Low 13.2-45.0 CBC With Differential 09/15/2019 [facility] (Interface) [phone] White Blood Count 5.2 10 Normal 4.0-10.0 [...] 36.0-66.0 Lymph % 36.2 % Normal 24.0-44.0 Holt % 7.9 % High 0.0-5.0 Eos % 2.9 % Normal 0.0-3.0 Baso % 0.6 % Normal 0.0-1.0 Immature Granulocyte % 0.4 % Normal 0-3.0 Nucleated Red Blood Cell % 0.0 % Normal 0-0 Neutrophils # 2.7 10 Normal 1.5-8.5 Lymph # 1.9 10 Normal 1.5-5.0 Holt # 0.4 10 Normal 0.0-0.8 Eos # 0.2 10 Normal 0.0-0.5 Baso # 0.0 10 Normal 0.0-0.2 Creatinine With GFR 09/15/2019 [facility] (I nterface) [phone] Creatinine For GFR 0.93 mg/dL Normal 0.55-1.30 Glomerular Filtration Rate > 60.0 Normal >45 1 8 Laboratory test finding 09/15/2019 [facility] l (Interface) [phone] Blood Urea Nitrogen 20 mg/dL High 7-18 Ua W/ Reflex To Culture 08/31/2019 [facility] (Interface) [phone] Appearance, Urine RFX CLEAR Normal Clear Color, Urine RFX STRAW Normal Yellow PH,Urine RFX 5.0 units Normal 5.0-9.0 Specific Reubens Ur Auto RFX 1.009 Normal 1.002-1.035 Protein, [...] /LPF Normal 0-1 Laboratory test finding 08/30/2019 [facility] (Interface) [phone] Bedside Glucose 90 mg/dL Normal 80-115 Laboratory test finding 08/30/2019 [facility] (Interface) [phone] Lipase 258 U/L Normal 73-393 Basic Metabolic Profile 08/30/2019 [facility] (Interface) [phone] Glucose, Fasting 164 mg/dL High 70-100 Blood [...] 9.0 mg/dL Normal 8.8-10.2 Liver Profile 08/30/2019 [facility] (I nterface) [phone] Ast/Sgot 37 U/L Normal 7-37 Alt/SGPT 28 U/L Normal 12-78 Alkaline Phosphatase 107 U/L Normal 45-117 Bilirubin,Total 0.3 mg/dL Normal 0.2-1.0 Bilirubin,Direct < 0.1 mg/dL Normal 0.0-0.2 Total Protein 7.3 GM/DL Normal 6.4-8.2 Albumin 3.6 GM/DL Normal 3.2-5.2 Albumin/Globulin Ratio 1.0 Low 1.2-2.2 Cardiac Marker Panel 08/30/2019 [facility]) [phone] CPK Creatine Phosphokinase 190 U/L Normal 26-19 2 CK-MB Value Mass 1.7 NG/ML Normal <3.6 MB/CK Relative Index 0.89 Normal < Or =4 21 Troponin I < 0.02 NG/ML Normal < 0.10 22 Prothrombin Time/Inr 08/30/2019 [facility]) [phone] Prothrombin Time 12.8 seconds Normal 11.8-14.0 Inr 0.99 Normal 23 CBC With Differential 08/30/2019 [facility]) [phone] White Blood Count 9.4 10 Normal 4.0-10.0 [...] 36.0-66.0 Lymph % 18.8 % Low 24.0-44.0 Holt % 3.7 % Normal 0.0-5.0 Eos % 0.5 % Normal 0.0-3.0 Baso % 0.3 % Normal 0.0-1.0 Immature Granulocyte % 0.3 % Normal 0-3.0 Nucleated Red Blood Cell % 0.0 % Normal 0-0 Neutrophils # 7.2 10 Normal 1.5-8.5 Lymph # 1.8 10 Normal 1.5-5.0 Holt # 0.4 10 Normal 0.0-0.8 Eos # 0.1 10 Normal 0.0-0.5 Baso # 0.0 10 Normal 0.0-0.2 Laboratory test finding 07/28/2019 [facility] (Interface) [phone] iSTAT Troponin 0.00 NG/ML Normal 0.00-0.08 Istat Chem8+ Panel 07/28/2019 [facility] [phone] iSTAT HCT 35.0 % Low 38.0-51.0 iSTAT Glucose 257 mg/dL High 70-105 iSTAT Sodium 137 mEq/L Normal 136-145 iSTAT Potassium 4.1 mEq/L Normal 3.5-5.1 iSTAT CA++ 4.5 mg/dL Normal 4.5-5.3 iSTAT Chloride 101 mEq/L Normal 98-109 iSTAT Co2 24.0 MM/L Normal 23.0-27.0 iSTAT BUN 18 mg/dL Normal 8-26 iSTAT Creatinine 0.9 mg/dL Normal 0.6-1.3 Laboratory test finding 07/28/2019 [facility] (Interface) [phone] iSTAT Troponin 0.00 NG/ML Normal 0.00-0.08 CBC With Differential 07/28/2019 [facility] (Interface) [phone] White Blood Count 6.3 10 Normal 4.0-10.0 [...] 36.0-66.0 Lymph % 31.2 % Normal 24.0-44.0 Holt % 9.0 % High 0.0-5.0 Eos % 2.2 % Normal 0.0-3.0 Baso % 0.6 % Normal 0.0-1.0 Immature Granulocyte % 0.2 % Normal 0-3.0 Nucleated Red Blood Cell % 0.0 % Normal 0-0 Neutrophils # 3.6 10 Normal 1.5-8.5 Lymph # 2.0 10 Normal 1.5-5.0 Holt # 0.6 10 Normal 0.0-0.8 Eos # 0.1 10 Normal 0.0-0.5 Baso # 0.0 10 Normal 0.0-0.2 Liver Profile 07/28/2019 [facility] (I nterface) [phone] Ast/Sgot 12 U/L Normal 7-37 Alt/SGPT 17 U/L Normal 12-78 Alkaline Phosphatase 89 U/L Normal 45-117 Bilirubin,Total 0.3 mg/dL Normal 0.2-1.0 Bilirubin,Direct < 0.1 mg/dL Normal 0.0-0.2 Total Protein 6.3 GM/DL Low 6.4-8.2 Albumin 3.3 GM/DL Normal 3.2-5.2 Albumin/Globulin Ratio 1.1 Low 1.2-2.2 Laboratory test finding 07/28/2019 [facility] l (Interface) [phone] Lipase 240 U/L Normal 73-393 CBC With [...] Little GFR Left ESRD GFR <15 on [employer] 8 Negative <36.0 Equivocal 36.0 - 43.9 Positive >43.9 Performed at: RN - [facility] [address] [id number] [facility] Contact Representative: Virgiine Acevedo MD, Phone: [phone] SRC:URINE 10 Source of Specimen: URINE [...] HCT IS 5% LESS SOURCE FOR DATA: [employer] 1800 OPERATION MANUAL( AUTOMATED BLOOD COUNTS AND [...] Little GFR Left ESRD GFR <15 on [employer] 19 Units are mL/min/1.73 m2 Chronic Kidney Disease Staging per NKF: Stage I & II GFR >=60 Normal to Mildly Decreased Stage III GFR 30-59 Moderately Decreased Stage IV GFR 15-29 Severely Decreased Stage V GFR <15 Very Little GFR Left ESRD GFR <15 on [employer] 20 This specimen has an elevate d potassium level but there is NO visible hemolysis noted. 21 DIAGNOSIS CRITERIA MMB ng/ml Relative Index (RI) NON-AMI < or = 5 N/A GIL ZONE > 5 < or = 4 AMI > 5 > 4 22 Troponin I Reference Interva l for [place] LOCI: 99th Percentile= 0.00-0.045 ng/ml Risk Stratification: [...] <7.0 Procedures Date Code Description Status 12/28/2019 39738 Electrocardiogram Complete Compl eted 11/22/2019 27025 Electrocardiogram Complete Compl eted 11/15/2019 [id number] Mammogram Completed Medical Devices Description No Information Available Encounters Type Date Location Provider Dx Diagnosis Office Visit 12/28/2019 1:15p [facility] Edgar Brown, DALE A R53.83 Other fatigue R06.02 Shortness of breath E11.9 Type 2 diabetes mellitus wit hout complications Office Visit 11/22/2019 1:30p [facility] Jamison Quiros M. D. R61 Generalized hyperhidrosis R42 Dizziness and giddiness I10 Essential (primary) hyperten stephanie E78.5 Hyperlipidemia, unspecified Office Visit 11/06/2019 10:00a [facility] Jamison Quiros M. D. J44.1 Chronic obstructive pulmonary disease w (acute) exacerbation E78.5 Hyperlipidemia, unspecified I10 Essential (primary) hyperten stephanie F41.9 Anxiety disorder, unspecifie d E11.9 Type 2 diabetes mellitus wit hout complications D50.9 Iron deficiency anemia, unsp ecified Z23 Encounter for immunization Office Visit 10/13/2019 2:00p [facility] Jamison Quiros M.D. W57.xxxA Bit/stung by nonvenom insect & oth nonve nom arthropods, init R21 Rash and other nonspecific s kin eruption Office Visit 09/05/2019 3:20p [facility] Jamison Quiros M. D. J44.1 Chronic obstructive pulmonary disease w (acute) exacerbation Office Visit 07/28/2019 10:20a [facility] Jamison Quiros M. D. E78.5 Hyperlipidemia, [...] Jamison Quiros M.D. 11/22/2019 E78.5 Hyperlipidemia, unspecified [facility] Jamison antonio M.D. 11/06/2019 J44.1 Chronic obstructive pulmonary disease with (acute) exacerbation Jamison Quiros M.D. 11/06/2019 E78.5 Hyperlipidemia, unspecified [facility] Jamison antonio M.D. 11/06/2019 I10 Essential (primary) hypertension Jamison Quiros M.D. 11/06/2019 F41.9 Anxiety disorder, unspecified [place] Jamison duran M.D. 11/06/2019 E11.9 Type 2 [...] Jamison Quiros M.D. 07/28/2019 E78.5 Hyperlipidemia, unspecified [facility] Jamison antonio M.D. 07/28/2019 I10 Essential (primary) hypertension Jamison Quiros M.D. 07/28/2019 F41.9 Anxiety disorder, unspecified [place] Jamison duran M.D. 07/28/2019 E11.9 Type 2 diabetes mellitus without complications Jamison Quiros M.D. 07/28/2019 D50.9 Iron deficiency anemia, unspecif ied Jamison Quiros M.D. 07/28/2019 J44.1 Chronic obstructive pulmonary disease with (acute) exacerbation Jamison Quiros M.D. Plan of Treatment Future Appointment(s):* 01/12/2020 10:40 am - Edgar Brown RPA at [facility] * 02/20/2020 10:40 am - Jamison Quiros M.D. at [facility] Functional Status Description No Information Available Mental Status Description No Information Available Referrals Refer to Reason for Referral Status Appt Date DC [facility] [place] Cardiology diaphoresis and light h eadedness in pt with multiple cardiac risk factors- eval and rx Sent 02/07/[id number] Van [address] [place], [place] [id number] [phone]
--- OUTSIDE RECORDS SUMMARY | 2020-03-13 18:02 | CCD ---
Continuity of Care Document (CCD) Created on: 01/01/2020 ConstantinElsy External Reference #: [id number] : [id number] Sex: Female Author Author Elsy QUIROS M.D. Organization Unknown Address [address] [place] [id number] Phone [phone] Problems Active Problems Provider Date Essential hypertension [...] One Tablet By Mouth Every Day 90taJamison Gómze M.D. 07/08 Pioglitazone HCL 45mg Tablets Take [...] CPT Code Status Date Vaccine Lot # [id number] Given 11/06/2019 Influenza Virus Vaccine, Quadrivalent, Slit Virus, Im Use 3Y & Up [id number] Given 01/04/2019 Influenza Virus Vaccine, Quadrivalent, Slit Virus, Im Use 3Y & Up [id number] Vital Signs Date Vital Result Comment 11/22/2019 1:51pm BP Systolic 124 mmHg BP Diastolic 70 mmHg Body Temperature 98.5 F Heart Rate 72 /min Respiratory Rate 16 /min Height 60.5 inches 5'0.50" Weight 188.00 lb [place] Body Weight 100 lb BMI (Body Mass Index) 36.1 kg/m2 O2 % BldC Oximetry 97 % 11/06/2019 9:49am BP Systolic 122 mmHg BP Diastolic 66 mmHg Body Temperature 98.2 F Heart Rate 70 /min Respiratory Rate 14 /min Height 60.5 inches 5'0.50" Weight 191.00 lb [place] Body Weight 100 lb BMI (Body Mass Index) 36.7 kg/m2 O2 % BldC Oximetry 97 % Results Test Acquired Date Facility Test Result H/L Range Note Urinalysis 12/31/2019 [place] [address] [phone] Urinalysis (SEE NOTE) 1, 2 Source Clean Catch Color yellow Normal: Yellow Clarity clear Normal: Clear Spec [place] 1.010 1.001 - 1.030 pH 6.5 5 [...] Normal: None Seen Laboratory test finding 12/31/2019 [facility] [place] [address] [phone] D-Dimer <0.27 ug/mL 0.27 - 0.50 CBC W/Automated Diff 12/31/2019 [facility] [place] [address] [phone] CBC W/Automated Diff (SEE NOTE) 3 WBC [...] 80.0 Lymph 28.0 % 25.0 - 40.0 [place] 7.4 % 3.0 - 8.0 Eos 3.9 % 0.0 - 7.0 Baso 0.5 % 0.0 - 2.5 %Ig 0.2 % High 0.0 - 0.0 %NRBC 0.0 % 0.0 - 0.0 #Neut 3.88 10^3/uL 2.00 - 6.90 #Lymph 1.81 10^3/uL 0.60 - 3.40 #[place] 0.48 10^3/uL 0.00 - 0.90 #Eos 0.25 10^3/uL 0.00 - 0.70 #Baso 0.03 10^3/uL 0.00 - 0.20 #Ig 0.01 10^3/uL 0.00 - 0.10 #NRBC 0.00 10^3/uL 0.00 - 0.00 Manual Diff NOT INDICATED RBC Morph NOT INDICATED Laboratory test finding 12/31/2019 [place] [address] [phone] Troponin T <0.01 NG/ML 0.00 - 0.10 4 Pro-BNP 144 pg/mL High 0 - 125 Comprehensive Metabolic Panel 12/31/2019 [place] [address] [phone] Comprehensive Metabo (SEE NOTE) 5 Sodium 140 [...] GFR >60 6 CBC With Differential 12/28/2019 [facility]) [phone] White Blood Count 8.7 10 Normal 4.0-10.0 [...] 36.0-66.0 Lymph % 19.4 % Low 24.0-44.0 [place] % 6.7 % High 0.0-5.0 Eos % 1.6 % Normal 0.0-3.0 Baso % 0.3 % Normal 0.0-1.0 Immature Granulocyte % 0.2 % Normal 0-3.0 Nucleated Red Blood Cell % 0.0 % Normal 0-0 Neutrophils # 6.2 10 Normal 1.5-8.5 Lymph # 1.7 10 Normal 1.5-5.0 [place] # 0.6 10 Normal 0.0-0.8 Eos # 0.1 10 Normal 0.0-0.5 Baso # 0.0 10 Normal 0.0-0.2 Comprehensive Metabolic Profil 12/28/2019 [facility]) [phone] Glucose, Fasting 63 mg/dL Low 70-100 Blood [...] 1.2 Normal 1.2-2.2 Laboratory test finding 12/28/2019 [facility] (Interface) [phone] Ebv Viral Capsid Ag IgM <36.0 U/mL Normal 0.0-35.9 8 U/A DIP FPA 12/28/2019 [facility] Color Urine YELLOW Yellow Appearance CLEAR Clear Specific [place] 1.020 1.00-1.03 PH Urine 6.5 5.0-8.0 Glucose Urine NEG Negative Bilirubin Urine NEG Negative Ketones NEG Negative Blood Urine NEG Negative Protein Urine NEG Negative Urobilinogen .2 EU/dl 0.2-1.0 Nitrite NEG Negative Leukocytes TRACE Negative Urine Culture, Routine 12/28/2019 [facility] [place] Urine Culture, Routine Final report 9, 1 0 Result 1 No growth 11 Laboratory test finding 12/28/2019 [facility] Glucometer-[facility] 82 mg/dL 65-109 Microalb/Creat [...] eGFR 76 # Calc 14 eGFR Non-Afr. [place]raini 65 # Calc 15 CBC 11/06/2019 FPA/Inhouse [...] test [facility] [phone] Vitamin B12 Level 379 pg/mL Normal 247-911 16 Folate 11.9 NG/ML Normal >5.4 17 Ferritin 7 NG/ML Low 8-252 Total Iron Binding Capacit 09/15/2019 [facility] ical (Interface) [phone] Iron (Fe) 30 g/dL Low 50-170 Total Iron Binding Capacity 486 g/dL High 250-450 Percent Saturation 6.2 % Low 13.2-45.0 CBC With Differential 09/15/2019 [facility] (Interface) [phone] White Blood Count 5.2 10 Normal 4.0-10.0 [...] 36.0-66.0 Lymph % 36.2 % Normal 24.0-44.0 [place] % 7.9 % High 0.0-5.0 Eos % 2.9 % Normal 0.0-3.0 Baso % 0.6 % Normal 0.0-1.0 Immature Granulocyte % 0.4 % Normal 0-3.0 Nucleated Red Blood Cell % 0.0 % Normal 0-0 Neutrophils # 2.7 10 Normal 1.5-8.5 Lymph # 1.9 10 Normal 1.5-5.0 [place] # 0.4 10 Normal 0.0-0.8 Eos # 0.2 10 Normal 0.0-0.5 Baso # 0.0 10 Normal 0.0-0.2 Creatinine With GFR 09/15/2019 [facility] (I nterface) [phone] Creatinine For GFR 0.93 mg/dL Normal 0.55-1.30 Glomerular Filtration Rate > 60.0 Normal >45 1 8 Laboratory test finding 09/15/2019 [facility] l (Interface) [phone] Blood Urea Nitrogen 20 mg/dL High 7-18 Ua W/ Reflex To Culture 08/31/2019 [facility] (Interface) [phone] Appearance, Urine RFX CLEAR Normal Clear Color, Urine RFX STRAW Normal Yellow PH,Urine RFX 5.0 units Normal 5.0-9.0 Specific [place] Ur Auto RFX 1.009 Normal 1.002-1.035 Protein, [...] /LPF Normal 0-1 Laboratory test finding 08/30/2019 [facility] (Interface) [phone] Bedside Glucose 90 mg/dL Normal 80-115 Laboratory test finding 08/30/2019 [facility] (Interface) [phone] Lipase 258 U/L Normal 73-393 Basic Metabolic Profile 08/30/2019 [facility] (Interface) [phone] Glucose, Fasting 164 mg/dL High 70-100 Blood [...] 9.0 mg/dL Normal 8.8-10.2 Liver Profile 08/30/2019 [facility] (I nterface) [phone] Ast/Sgot 37 U/L Normal 7-37 Alt/SGPT 28 U/L Normal 12-78 Alkaline Phosphatase 107 U/L Normal 45-117 Bilirubin,Total 0.3 mg/dL Normal 0.2-1.0 Bilirubin,Direct < 0.1 mg/dL Normal 0.0-0.2 Total Protein 7.3 GM/DL Normal 6.4-8.2 Albumin 3.6 GM/DL Normal 3.2-5.2 Albumin/Globulin Ratio 1.0 Low 1.2-2.2 Cardiac Marker Panel 08/30/2019 [facility]) [phone] CPK Creatine Phosphokinase 190 U/L Normal 26-19 2 CK-MB Value Mass 1.7 NG/ML Normal <3.6 MB/CK Relative Index 0.89 Normal < Or =4 21 Troponin I < 0.02 NG/ML Normal < 0.10 22 Prothrombin Time/Inr 08/30/2019 [facility]) [phone] Prothrombin Time 12.8 seconds Normal 11.8-14.0 Inr 0.99 Normal 23 CBC With Differential 08/30/2019 [facility]) [phone] White Blood Count 9.4 10 Normal 4.0-10.0 [...] 36.0-66.0 Lymph % 18.8 % Low 24.0-44.0 [place] % 3.7 % Normal 0.0-5.0 Eos % 0.5 % Normal 0.0-3.0 Baso % 0.3 % Normal 0.0-1.0 Immature Granulocyte % 0.3 % Normal 0-3.0 Nucleated Red Blood Cell % 0.0 % Normal 0-0 Neutrophils # 7.2 10 Normal 1.5-8.5 Lymph # 1.8 10 Normal 1.5-5.0 [place] # 0.4 10 Normal 0.0-0.8 Eos # 0.1 10 Normal 0.0-0.5 Baso # 0.0 10 Normal 0.0-0.2 Laboratory test finding 07/28/2019 [facility] (Interface) [phone] iSTAT Troponin 0.00 NG/ML Normal 0.00-0.08 Istat Chem8+ Panel 07/28/2019 [facility] [phone] iSTAT HCT 35.0 % Low 38.0-51.0 iSTAT Glucose 257 mg/dL High 70-105 iSTAT Sodium 137 mEq/L Normal 136-145 iSTAT Potassium 4.1 mEq/L Normal 3.5-5.1 iSTAT CA++ 4.5 mg/dL Normal 4.5-5.3 iSTAT Chloride 101 mEq/L Normal 98-109 iSTAT Co2 24.0 MM/L Normal 23.0-27.0 iSTAT BUN 18 mg/dL Normal 8-26 iSTAT Creatinine 0.9 mg/dL Normal 0.6-1.3 Laboratory test finding 07/28/2019 [facility] (Interface) [phone] iSTAT Troponin 0.00 NG/ML Normal 0.00-0.08 CBC With Differential 07/28/2019 [facility] (Interface) [phone] White Blood Count 6.3 10 Normal 4.0-10.0 [...] 36.0-66.0 Lymph % 31.2 % Normal 24.0-44.0 [place] % 9.0 % High 0.0-5.0 Eos % 2.2 % Normal 0.0-3.0 Baso % 0.6 % Normal 0.0-1.0 Immature Granulocyte % 0.2 % Normal 0-3.0 Nucleated Red Blood Cell % 0.0 % Normal 0-0 Neutrophils # 3.6 10 Normal 1.5-8.5 Lymph # 2.0 10 Normal 1.5-5.0 [place] # 0.6 10 Normal 0.0-0.8 Eos # 0.1 10 Normal 0.0-0.5 Baso # 0.0 10 Normal 0.0-0.2 Liver Profile 07/28/2019 [facility] (I nterface) [phone] Ast/Sgot 12 U/L Normal 7-37 Alt/SGPT 17 U/L Normal 12-78 Alkaline Phosphatase 89 U/L Normal 45-117 Bilirubin,Total 0.3 mg/dL Normal 0.2-1.0 Bilirubin,Direct < 0.1 mg/dL Normal 0.0-0.2 Total Protein 6.3 GM/DL Low 6.4-8.2 Albumin 3.3 GM/DL Normal 3.2-5.2 Albumin/Globulin Ratio 1.1 Low 1.2-2.2 Laboratory test finding 07/28/2019 [facility] l (Interface) [phone] Lipase 240 U/L Normal 73-393 CBC With [...] Little GFR Left ESRD GFR <15 on RECORDS MANAGEMENT ANALYST 8 Negative <36.0 Equivocal 36.0 - 43.9 Positive >43.9 Performed at: RN - [facility] [address] [id number] Survival Equipment Repairer: Virginie Acevedo MD, Phone: [phone] SRC:URINE 10 Source of Specimen: URINE [...] HCT IS 5% LESS SOURCE FOR DATA: [employer] 1800 OPERATION MANUAL( AUTOMATED BLOOD COUNTS AND [...] Little GFR Left ESRD GFR <15 on RECORDS MANAGEMENT ANALYST 19 Units are mL/min/1.73 m2 Chronic Kidney Disease Staging per NKF: Stage I & II GFR >=60 Normal to Mildly Decreased Stage III GFR 30-59 Moderately Decreased Stage IV GFR 15-29 Severely Decreased Stage V GFR <15 Very Little GFR Left ESRD GFR <15 on RECORDS MANAGEMENT ANALYST 20 This specimen has an elevate d potassium level but there is NO visible hemolysis noted. 21 DIAGNOSIS CRITERIA MMB ng/ml Relative Index (RI) NON-AMI < or = 5 N/A GIL ZONE > 5 < or = 4 AMI > 5 > 4 22 Troponin I Reference Interva l for Auspherix LOCI: 99th Percentile= 0.00-0.045 ng/ml Risk Stratification: [...] <7.0 Procedures Date Code Description Status 12/28/2019 62932 Electrocardiogram Complete Compl eted 11/22/2019 19159 Electrocardiogram Complete Compl eted 11/15/2019 [id number] Mammogram Completed Medical Devices Description No Information Available Encounters Type Date Location Provider Dx Diagnosis Office Visit 12/28/2019 1:15p [facility] Edgar Brown, DALE A R53.83 Other fatigue R06.02 Shortness of breath E11.9 Type 2 diabetes mellitus wit hout complications Office Visit 11/22/2019 1:30p [facility] Jamison Quiros M. D. R61 Generalized hyperhidrosis R42 Dizziness and giddiness I10 Essential (primary) hyperten stephanie E78.5 Hyperlipidemia, unspecified Office Visit 11/06/2019 10:00a [facility] Jamison Quiros M. D. J44.1 Chronic obstructive pulmonary disease w (acute) exacerbation E78.5 Hyperlipidemia, unspecified I10 Essential (primary) hyperten stephanie F41.9 Anxiety disorder, unspecifie d E11.9 Type 2 diabetes mellitus wit hout complications D50.9 Iron deficiency anemia, unsp ecified Z23 Encounter for immunization Office Visit 10/13/2019 2:00p [facility] Jamison Quiros M.D. W57.xxxA Bit/stung by nonvenom insect & oth nonve nom arthropods, init R21 Rash and other nonspecific s kin eruption Office Visit 09/05/2019 3:20p [facility] Jamison Quiros M. D. J44.1 Chronic obstructive pulmonary disease w (acute) exacerbation Office Visit 07/28/2019 10:20a [facility] Jamison Quiros M. D. E78.5 Hyperlipidemia, [...] Jamison Quiros M.D. 11/22/2019 E78.5 Hyperlipidemia, unspecified [facility] Jamison antonio M.D. 11/06/2019 J44.1 Chronic obstructive pulmonary disease with (acute) exacerbation Jamison Quiros M.D. 11/06/2019 E78.5 Hyperlipidemia, unspecified [facility] Jamison antonio M.D. 11/06/2019 I10 Essential (primary) hypertension Jamison Quiros M.D. 11/06/2019 F41.9 Anxiety disorder, unspecified [place] Jamison duran M.D. 11/06/2019 E11.9 Type 2 [...] Jamison Quiros M.D. 07/28/2019 E78.5 Hyperlipidemia, unspecified [facility] Jamison antonio M.D. 07/28/2019 I10 Essential (primary) hypertension Jamison Quiros M.D. 07/28/2019 F41.9 Anxiety disorder, unspecified [place] Jamison duran M.D. 07/28/2019 E11.9 Type 2 diabetes mellitus without complications Jamison Quiros M.D. 07/28/2019 D50.9 Iron deficiency anemia, unspecif ied Jamison Quiros M.D. 07/28/2019 J44.1 Chronic obstructive pulmonary disease with (acute) exacerbation Jamison Quiros M.D. Plan of Treatment Future Appointment(s):* 01/12/2020 10:40 am - Edgar Brown RPA at [facility] * 02/20/2020 10:40 am - Jamsion Quiros M.D. at [facility] Functional Status Description No Information Available Mental Status Description No Information Available Referrals Refer to Reason for Referral Status Appt Date PA Heart [place] Cardiology diaphoresis and light h eadedness in pt with multiple cardiac risk factors- eval and rx Sent 02/07/[id number] Van [address] [place], [place] [id number] [phone]
--- OUTSIDE RECORDS SUMMARY | 2020-03-13 18:02 | CCD | Continuity of Care Document ---
Author Author Elsy BROWN [facility] Unknown Address [address] [facility] [address] [place] [address] Phone [phone] Problems Active Problems Provider Date Essential hypertension [...] CPT Code Status Date Vaccine Lot # [id number] Given 11/06/2019 Influenza Virus Vaccine, Quadrivalent, Slit Virus, Im Use 3Y & Up [id number] Given 01/04/2019 Influenza Virus Vaccine, Quadrivalent, Slit Virus, Im Use 3Y & Up [id number] Vital Signs Date Vital Result Comment 11/22/2019 1:51pm BP Systolic 124 mmHg BP Diastolic 70 mmHg Body Temperature 98.5 F Heart Rate 72 /min Respiratory Rate 16 /min Height 60.5 inches 5'0.50" Weight 188.00 lb [place] Body Weight 100 lb BMI (Body Mass Index) 36.1 kg/m2 O2 % BldC Oximetry 97 % 11/06/2019 9:49am BP Systolic 122 mmHg BP Diastolic 66 mmHg Body Temperature 98.2 F Heart Rate 70 /min Respiratory Rate 14 /min Height 60.5 inches 5'0.50" Weight 191.00 lb [place] Body Weight 100 lb BMI (Body Mass Index) 36.7 kg/m2 O2 % BldC Oximetry 97 % Results Test Acquired Date Facility Test Result H/L Range Note U/A DIP FPA 12/28/2019 [facility] Asso ciates Color Urine YELLOW Yellow Appearance CLEAR Clear Specific [place] [facility] 1.020 1.00-1.03 PH Urine 6.5 5.0-8.0 Glucose Urine NEG Negative Bilirubin Urine NEG Negative Ketones NEG Negative Blood Urine NEG Negative Protein Urine NEG Negative Urobilinogen .2 EU/dl 0.2-1.0 Nitrite NEG Negative Leukocytes TRACE Negative Laboratory test finding 12/28/2019 [facility] Glucometer-[facility] 82 mg/dL 65-109 Microalb/Creat Ratio 11/06/2019 [facility] Alb 10 mg/L 1 - 30 Creatinine, Urine 10 mg/dL 10 - 300 A/C Ratio <30 mg/g % Hemoglobin A1c 11/06/2019 [facility] [place] Hemoglobin A1c 8.0 % High 4.8-5.6 1 CMP 11/06/2019 [facility] Glu 311 mg/dL High 70 - 110 2 BUN 18 mg/dL 8 - 23 Creat [...] Gap 18 mmol/L eGFR 76 # Calc 3 eGFR Non-Afr. [place] 65 # Calc 4 CBC 11/06/2019 [facility] WBC 5.5 10E3/uL 4.1 [...] Ratio 2.2 CALC Laboratory test finding 09/15/2019 [facility] (Interface) [phone] Vitamin B12 Level 379 pg/mL Normal 247-911 5 Folate 11.9 NG/ML Normal >5.4 6 Ferritin 7 NG/ML Low 8-252 Total Iron Binding Capacit 09/15/2019 [facility] ical (Interface) [phone] Iron (Fe) 30 g/dL Low 50-170 Total Iron Binding Capacity 486 g/dL High 250-450 Percent Saturation 6.2 % Low 13.2-45.0 CBC With Differential 09/15/2019 [facility] ([facility]) [phone] White Blood Count 5.2 10 Normal 4.0-10.0 [...] 36.0-66.0 Lymph % 36.2 % Normal 24.0-44.0 [place] % 7.9 % High 0.0-5.0 Eos % 2.9 % Normal 0.0-3.0 Baso % 0.6 % Normal 0.0-1.0 Immature Granulocyte % 0.4 % Normal 0-3.0 Nucleated Red Blood Cell % 0.0 % Normal 0-0 Neutrophils # 2.7 10 Normal 1.5-8.5 Lymph # 1.9 10 Normal 1.5-5.0 [place] # 0.4 10 Normal 0.0-0.8 Eos # 0.2 10 Normal 0.0-0.5 Baso # 0.0 10 Normal 0.0-0.2 Creatinine With GFR 09/15/2019 [facility] [phone] Creatinine For GFR 0.93 mg/dL Normal 0.55-1.30 Glomerular Filtration Rate > 60.0 Normal >45 7 Laboratory test finding 09/15/2019 [facility] (Interface) [phone] Blood Urea Nitrogen 20 mg/dL High 7-18 Ua W/ Reflex To Culture 08/31/2019 [facility] (Interface) [phone] Appearance, Urine RFX CLEAR Normal Clear Color, Urine RFX STRAW Normal Yellow PH,Urine RFX 5.0 units Normal 5.0-9.0 Specific [place] Ur Auto RFX 1.009 Normal 1.002-1.035 Protein, [...] /LPF Normal 0-1 Laboratory test finding 08/30/2019 [facility] (Interface) [phone] Bedside Glucose 90 mg/dL Normal 80-115 Laboratory test finding 08/30/2019 [facility] (Interface) [phone] Lipase 258 U/L Normal 73-393 Basic Metabolic Profile 08/30/2019 [facility] (Interface) [phone] Glucose, Fasting 164 mg/dL High 70-100 Blood Urea Nitrogen 23 mg/dL High 7-18 Creatinine For GFR 0.98 mg/dL Normal 0.55-1.30 Glomerular Filtration Rate 59.9 Normal >45 8 Sodium Level 137 mEq/L Normal 136-145 Potassium Serum 4.3 mEq/L Normal 3.5-5.1 9 Chloride Level 100 mEq/L Normal 98-107 Carbon Dioxide Level 29 mEq/L Normal 21-32 Anion Gap 8 mEq/L Normal 8-16 Calcium Level 9.0 mg/dL Normal 8.8-10.2 Liver Profile 08/30/2019 [facility] ([facility]) [phone] Ast/Sgot 37 U/L Normal 7-37 Alt/SGPT 28 U/L Normal 12-78 Alkaline Phosphatase 107 U/L Normal 45-117 Bilirubin,Total 0.3 mg/dL Normal 0.2-1.0 Bilirubin,Direct < 0.1 mg/dL Normal 0.0-0.2 Total Protein 7.3 GM/DL Normal 6.4-8.2 Albumin 3.6 GM/DL Normal 3.2-5.2 Albumin/Globulin Ratio 1.0 Low 1.2-2.2 Cardiac Marker Panel 08/30/2019 [facility]) [phone] CPK Creatine Phosphokinase 190 U/L Normal 26-19 2 CK-MB Value Mass 1.7 NG/ML Normal <3.6 MB/CK Relative Index 0.89 Normal < Or =4 10 Troponin I < 0.02 NG/ML Normal < 0.10 11 Prothrombin Time/Inr 08/30/2019 [facility]) [phone] Prothrombin Time 12.8 seconds Normal 11.8-14.0 Inr 0.99 Normal 12 CBC With Differential 08/30/2019 [facility]) [phone] White Blood Count 9.4 10 Normal 4.0-10.0 [...] 36.0-66.0 Lymph % 18.8 % Low 24.0-44.0 [place] % 3.7 % Normal 0.0-5.0 Eos % 0.5 % Normal 0.0-3.0 Baso % 0.3 % Normal 0.0-1.0 Immature Granulocyte % 0.3 % Normal 0-3.0 Nucleated Red Blood Cell % 0.0 % Normal 0-0 Neutrophils # 7.2 10 Normal 1.5-8.5 Lymph # 1.8 10 Normal 1.5-5.0 [place] # 0.4 10 Normal 0.0-0.8 Eos # 0.1 10 Normal 0.0-0.5 Baso # 0.0 10 Normal 0.0-0.2 Laboratory test finding 07/28/2019 [facility]) [phone] iSTAT Troponin 0.00 NG/ML Normal 0.00-0.08 Istat Chem8+ Panel 07/28/2019 [facility] [phone] iSTAT HCT 35.0 % Low 38.0-51.0 iSTAT Glucose 257 mg/dL High 70-105 iSTAT Sodium 137 mEq/L Normal 136-145 iSTAT Potassium 4.1 mEq/L Normal 3.5-5.1 iSTAT CA++ 4.5 mg/dL Normal 4.5-5.3 iSTAT Chloride 101 mEq/L Normal 98-109 iSTAT Co2 24.0 MM/L Normal 23.0-27.0 iSTAT BUN 18 mg/dL Normal 8-26 iSTAT Creatinine 0.9 mg/dL Normal 0.6-1.3 Laboratory test finding 07/28/2019 [facility] (Interface) [phone] iSTAT Troponin 0.00 NG/ML Normal 0.00-0.08 CBC With Differential 07/28/2019 [facility] (Interface) [phone] White Blood Count 6.3 10 Normal 4.0-10.0 [...] 36.0-66.0 Lymph % 31.2 % Normal 24.0-44.0 [place] % 9.0 % High 0.0-5.0 Eos % 2.2 % Normal 0.0-3.0 Baso % 0.6 % Normal 0.0-1.0 Immature Granulocyte % 0.2 % Normal 0-3.0 Nucleated Red Blood Cell % 0.0 % Normal 0-0 Neutrophils # 3.6 10 Normal 1.5-8.5 Lymph # 2.0 10 Normal 1.5-5.0 [place] # 0.6 10 Normal 0.0-0.8 Eos # 0.1 10 Normal 0.0-0.5 Baso # 0.0 10 Normal 0.0-0.2 Liver Profile 07/28/2019 [facility] ([facility]) [phone] Ast/Sgot 12 U/L Normal 7-37 Alt/SGPT 17 U/L Normal 12-78 Alkaline Phosphatase 89 U/L Normal 45-117 Bilirubin,Total 0.3 mg/dL Normal 0.2-1.0 Bilirubin,Direct < 0.1 mg/dL Normal 0.0-0.2 Total Protein 6.3 GM/DL Low 6.4-8.2 Albumin 3.3 GM/DL Normal 3.2-5.2 Albumin/Globulin Ratio 1.1 Low 1.2-2.2 Laboratory test finding 07/28/2019 [facility] (Interface) [phone] Lipase 240 U/L Normal 73-393 CBC With [...] Immature Grans (Abs) 0.0 x10E3/uL 0.0-0.1 NRBC [facility] Hematology Comments: [facility] Metabolic Panel (14), Comprehensive 07/28/2019 [facility] [...] LDL Cholesterol Calc 56 mg/dL 0-99 Comment: [facility] Hemoglobin A1c 07/28/2019 [facility] [place] Hemoglobin A1c 8.0 % High 4.8-5.6 13 1 Prediabetes: 5.7 - 6.4 Diabetes: >6.4 Glycemic control for adults with diabetes: <7.0 2 NORMAL RANGES Age WBC RBC HGB HCT [...] HCT IS 5% LESS SOURCE FOR DATA: [employer] 1800 OPERATION MANUAL( AUTOMATED BLOOD COUNTS AND [...] ADOLESCENTS REPRESENTS INDIVIDUALA AGED 2-19 YEARS EXCLUSIVE. 3 CKD-EPI 4 CKD-EPI 5 VITAMIN B12 NORMAL RANGE NORMAL 247 - 911 PG/ML INDETERMINATE 211 - 246 PG/ML DEFICIENT LESS THAN 211 PG/ML 6 FOLATE NORMAL RANGE NORMAL GREATER THAN 5.4 NG/ML INDETERMINATE 3.4-5.4 NG/ML DEFICIENT LESS THAN 3.4 NG/ML 7 Units are mL/min/1.73 m2 Chronic Kidney Disease Staging per NKF: Stage I & II GFR >=60 Normal to Mildly Decreased Stage III GFR 30-59 Moderately Decreased Stage IV GFR 15-29 Severely Decreased Stage V GFR <15 Very Little GFR Left ESRD GFR <15 on SURVEY COMPILER 8 Units are mL/min/1.73 m2 Chronic Kidney Disease Staging per NKF: Stage I & II GFR >=60 Normal to Mildly Decreased Stage III GFR 30-59 Moderately Decreased Stage IV GFR 15-29 Severely Decreased Stage V GFR <15 Very Little GFR Left ESRD GFR <15 on SURVEY COMPILER 9 This specimen has an elevate d potassium level but there is NO visible hemolysis noted. 10 DIAGNOSIS CRITERIA MMB ng/ml Relative Index (RI) NON-AMI < or = 5 N/A GIL ZONE > 5 < or = 4 AMI > 5 > 4 11 Troponin I Reference Interva l for [employer] Local Labs LOCI: 99th Percentile= 0.00-0.045 ng/ml Risk Stratification: <= 0.10 ng/ml Decreased Risk for Adverse Clinical Events. 0.10-1.50 ng/ml Increased Risk for Adv erse Clinical Events. Evaluation of additional criterion and/or repeat testing in 2-6 hours is suggested to rule out myocardial damage. >= 1.50 ng/ml Indicative of Myocardial Injury. 12 THERAPUTIC HUMAN INR VALUES INDICATIONS NORMAL RANGES PROPHYLAXIS/TREATMENT OF: VENOUS THROMBOSIS 2.0-3.0 PULMONARY EMBOLISM 2.0-3.0 PREVENTION OF SYSTEMIC EMBOLISM FROM: TISSUE HEART VALVES 2.0-3.0 ACUTE MYOCARDIAL INFARCTION 2.0-3.0 VALVULAR HEART DISEASE 2.0-3.0 ATRIAL FIBRILLATION 2.0-3.0 MECHANICAL VALVES(HIGH RISK) 2.5-3.5 RECURRENT MYOCARDIAL INFARCTION 2.5-3.5 13 Prediabetes: 5.7 - 6.4 Diabetes: >6.4 Glycemic control for adults with diabetes: <7.0 Procedures Date Code Description Status 12/28/2019 50726 Electrocardiogram Complete Compl eted 11/22/2019 14630 Electrocardiogram Complete Compl eted 11/15/2019 [id number] Mammogram Completed Medical Devices Description No Information Available Encounters Type Date Location Provider Dx Diagnosis Office Visit 12/28/2019 1:15p [facility] Edgar Brown, DALE A R53.83 Other fatigue R06.02 Shortness of breath E11.9 Type 2 diabetes mellitus wit hout complications Office Visit 11/22/2019 1:30p [facility] Jamison Quiros M. D. R61 Generalized hyperhidrosis R42 Dizziness and giddiness I10 Essential (primary) hyperten stephanie E78.5 Hyperlipidemia, unspecified Office Visit 11/06/2019 10:00a [facility] Jamison Quiros M. D. J44.1 Chronic obstructive pulmonary disease w (acute) exacerbation E78.5 Hyperlipidemia, unspecified I10 Essential (primary) hyperten stephanie F41.9 Anxiety disorder, unspecifie d E11.9 Type 2 diabetes mellitus wit hout complications D50.9 Iron deficiency anemia, unsp ecified Z23 Encounter for immunization Office Visit 10/13/2019 2:00p [facility] Jamison Quiros M.D. W57.xxxA Bit/stung by nonvenom insect & oth nonve nom arthropods, init R21 Rash and other nonspecific s kin eruption Office Visit 09/05/2019 3:20p [facility] Jamison Quiros M. D. J44.1 Chronic obstructive pulmonary disease w (acute) exacerbation Office Visit 07/28/2019 10:20a [facility] Jamison Quiros M. D. E78.5 Hyperlipidemia, [...] Jamison Quiros M.D. 11/22/2019 E78.5 Hyperlipidemia, unspecified [facility] Jamison antonio M.D. 11/06/2019 J44.1 Chronic obstructive pulmonary disease with (acute) exacerbation Jamison Quiros M.D. 11/06/2019 E78.5 Hyperlipidemia, unspecified [facility] Jamison antonio M.D. 11/06/2019 I10 Essential (primary) hypertension Jamison Quiros M.D. 11/06/2019 F41.9 Anxiety disorder, unspecified [facility] Jamison duran M.D. 11/06/2019 E11.9 Type 2 [...] Jamison Quiros M.D. 07/28/2019 E78.5 Hyperlipidemia, unspecified [facility] Jamison antonio M.D. 07/28/2019 I10 Essential (primary) hypertension Jamison Quiros M.D. 07/28/2019 F41.9 Anxiety disorder, unspecified [facility] Jamison duran M.D. 07/28/2019 E11.9 Type 2 diabetes mellitus without complications Jamison Quiros M.D. 07/28/2019 D50.9 Iron deficiency anemia, unspecif ied Jamison Quiros M.D. 07/28/2019 J44.1 Chronic obstructive pulmonary disease with (acute) exacerbation Jamison Quiros M.D. Plan of Treatment Future Appointment(s):* 01/12/2020 10:40 am - Edgar Brown, RPA at [facility] * 02/20/2020 10:40 am - Jamison Quiros M.D. at [facility] Functional Status Description No Information Available Mental Status Description No Information Available Referrals Refer to Dr Reason for Referral Status Appt Date [facility] Cardiology diaphoresis and light h eadedness in pt with multiple cardiac risk factors- eval and rx Sent 02/07/[id number] [place] [address] [place] [id number] [phone]
--- OUTSIDE RECORDS SUMMARY | 2020-03-13 18:03 | CCD | Continuity of Care Document ---
Author Author Elsy BROWN [facility] Unknown Address [address] [facility] [address] [place] [address] Phone [phone] Problems Active Problems Provider Date Essential hypertension [...] CPT Code Status Date Vaccine Lot # [id number] Given 11/06/2019 Influenza Virus Vaccine, Quadrivalent, Slit Virus, Im Use 3Y & Up [id number] Given 01/04/2019 Influenza Virus Vaccine, Quadrivalent, Slit Virus, Im Use 3Y & Up [id number] Vital Signs Date Vital Result Comment 11/22/2019 1:51pm BP Systolic 124 mmHg BP Diastolic 70 mmHg Body Temperature 98.5 F Heart Rate 72 /min Respiratory Rate 16 /min Height 60.5 inches 5'0.50" Weight 188.00 lb [place] Body Weight 100 lb BMI (Body Mass Index) 36.1 kg/m2 O2 % BldC Oximetry 97 % 11/06/2019 9:49am BP Systolic 122 mmHg BP Diastolic 66 mmHg Body Temperature 98.2 F Heart Rate 70 /min Respiratory Rate 14 /min Height 60.5 inches 5'0.50" Weight 191.00 lb [place] Body Weight 100 lb BMI (Body Mass Index) 36.7 kg/m2 O2 % BldC Oximetry 97 % Results Test Acquired Date Facility Test Result H/L Range Note Laboratory test finding 12/28/2019 [facility] Glucometer-[facility] 82 mg/dL 65-109 Microalb/Creat Ratio 11/06/2019 [...] eGFR 76 # Calc 3 eGFR Non-Afr. [place] 65 # Calc 4 CBC 11/06/2019 [facility]/Inhouse [...] Ratio 2.2 CALC Laboratory test finding 09/15/2019 [facility] (Interface) [phone] Vitamin B12 Level 379 pg/mL Normal 247-911 5 Folate 11.9 NG/ML Normal >5.4 6 Ferritin 7 NG/ML Low 8-252 Total Iron Binding Capacit 09/15/2019 [facility] ical (Interface) [phone] Iron (Fe) 30 g/dL Low 50-170 Total Iron Binding Capacity 486 g/dL High 250-450 Percent Saturation 6.2 % Low 13.2-45.0 CBC With Differential 09/15/2019 [facility] (Interface) [phone] White Blood Count 5.2 10 Normal 4.0-10.0 [...] 36.0-66.0 Lymph % 36.2 % Normal 24.0-44.0 Dare % 7.9 % High 0.0-5.0 Eos % 2.9 % Normal 0.0-3.0 Baso % 0.6 % Normal 0.0-1.0 Immature Granulocyte % 0.4 % Normal 0-3.0 Nucleated Red Blood Cell % 0.0 % Normal 0-0 Neutrophils # 2.7 10 Normal 1.5-8.5 Lymph # 1.9 10 Normal 1.5-5.0 Dare # 0.4 10 Normal 0.0-0.8 Eos # 0.2 10 Normal 0.0-0.5 Baso # 0.0 10 Normal 0.0-0.2 Creatinine With GFR 09/15/2019 [facility] ([facility]) [phone] Creatinine For GFR 0.93 mg/dL Normal 0.55-1.30 Glomerular Filtration Rate > 60.0 Normal >45 7 Laboratory test finding 09/15/2019 [facility] (Interface) [phone] Blood Urea Nitrogen 20 mg/dL High 7-18 Ua W/ Reflex To Culture 08/31/2019 [facility] (Interface) [phone] Appearance, Urine RFX CLEAR Normal Clear Color, Urine RFX STRAW Normal Yellow PH,Urine RFX 5.0 units Normal 5.0-9.0 Specific [place] Ur Auto RFX 1.009 Normal 1.002-1.035 Protein, [...] Urine Auto RFX 0 /LPF Normal 0-1 Prothrombin Time/Inr 08/30/2019 [facility] ( [facility]) [phone] Prothrombin Time 12.8 seconds Normal 11.8-14.0 Inr 0.99 Normal 8 Liver Profile 08/30/2019 [facility] [phone] Ast/Sgot 37 U/L Normal 7-37 Alt/SGPT 28 U/L Normal 12-78 Alkaline Phosphatase 107 U/L Normal 45-117 Bilirubin,Total 0.3 mg/dL Normal 0.2-1.0 Bilirubin,Direct < 0.1 mg/dL Normal 0.0-0.2 Total Protein 7.3 GM/DL Normal 6.4-8.2 Albumin 3.6 GM/DL Normal 3.2-5.2 Albumin/Globulin Ratio 1.0 Low 1.2-2.2 Basic Metabolic Profile 08/30/2019 [facility] ([facility]) [phone] Glucose, Fasting 164 mg/dL High 70-100 Blood Urea Nitrogen 23 mg/dL High 7-18 Creatinine For GFR 0.98 mg/dL Normal 0.55-1.30 Glomerular Filtration Rate 59.9 Normal >45 9 Sodium Level 137 mEq/L Normal 136-145 Potassium Serum 4.3 mEq/L Normal 3.5-5.1 10 Chloride Level 100 mEq/L Normal 98-107 Carbon Dioxide Level 29 mEq/L Normal 21-32 Anion Gap 8 mEq/L Normal 8-16 Calcium Level 9.0 mg/dL Normal 8.8-10.2 Laboratory test finding 08/30/2019 [facility] ([facility]) [phone] Lipase 258 U/L Normal 73-393 CBC With Differential 08/30/2019 [facility] ([facility]) [phone] White Blood Count 9.4 10 Normal 4.0-10.0 [...] 36.0-66.0 Lymph % 18.8 % Low 24.0-44.0 Dare % 3.7 % Normal 0.0-5.0 Eos % 0.5 % Normal 0.0-3.0 Baso % 0.3 % Normal 0.0-1.0 Immature Granulocyte % 0.3 % Normal 0-3.0 Nucleated Red Blood Cell % 0.0 % Normal 0-0 Neutrophils # 7.2 10 Normal 1.5-8.5 Lymph # 1.8 10 Normal 1.5-5.0 Dare # 0.4 10 Normal 0.0-0.8 Eos # 0.1 10 Normal 0.0-0.5 Baso # 0.0 10 Normal 0.0-0.2 Cardiac Marker Panel 08/30/2019 [facility] ( [facility]) [phone] CPK Creatine Phosphokinase 190 U/L Normal 26-19 2 CK-MB Value Mass 1.7 NG/ML Normal <3.6 MB/CK Relative Index 0.89 Normal < Or =4 11 Troponin I < 0.02 NG/ML Normal < 0.10 12 Laboratory test finding 08/30/2019 [facility] (Interface) [phone] Bedside Glucose 90 mg/dL Normal 80-115 Hemoglobin A1c 07/28/2019 [facility] [place] Hemoglobin A1c 8.0 % High 4.8-5.6 13 Istat Chem8+ Panel 07/28/2019 [facility] [phone] iSTAT HCT 35.0 % Low 38.0-51.0 iSTAT Glucose 257 mg/dL High 70-105 iSTAT Sodium 137 mEq/L Normal 136-145 iSTAT Potassium 4.1 mEq/L Normal 3.5-5.1 iSTAT CA++ 4.5 mg/dL Normal 4.5-5.3 iSTAT Chloride 101 mEq/L Normal 98-109 iSTAT Co2 24.0 MM/L Normal 23.0-27.0 iSTAT BUN 18 mg/dL Normal 8-26 iSTAT Creatinine 0.9 mg/dL Normal 0.6-1.3 Laboratory test finding 07/28/2019 [facility] (Interface) [phone] iSTAT Troponin 0.00 NG/ML Normal 0.00-0.08 CBC With Differential 07/28/2019 [facility] (Interface) [phone] White Blood Count 6.3 10 Normal 4.0-10.0 [...] 36.0-66.0 Lymph % 31.2 % Normal 24.0-44.0 Dare % 9.0 % High 0.0-5.0 Eos % 2.2 % Normal 0.0-3.0 Baso % 0.6 % Normal 0.0-1.0 Immature Granulocyte % 0.2 % Normal 0-3.0 Nucleated Red Blood Cell % 0.0 % Normal 0-0 Neutrophils # 3.6 10 Normal 1.5-8.5 Lymph # 2.0 10 Normal 1.5-5.0 Dare # 0.6 10 Normal 0.0-0.8 Eos # 0.1 10 Normal 0.0-0.5 Baso # 0.0 10 Normal 0.0-0.2 Lipid Panel 07/28/2019 [facility] [place] Cholesterol, Total 135 mg/dL 100-199 Triglycerides 71 mg/dL 0-149 HDL Cholesterol 65 mg/dL >39 VLDL Cholesterol Fausto 14 mg/dL 5-40 LDL Cholesterol Calc 56 mg/dL 0-99 Comment: TNP Laboratory test finding 07/28/2019 [facility] (Interface) [phone] iSTAT Troponin 0.00 NG/ML Normal 0.00-0.08 Liver Profile 07/28/2019 [facility] (I nterface) [phone] Ast/Sgot 12 U/L Normal 7-37 Alt/SGPT 17 U/L Normal 12-78 Alkaline Phosphatase 89 U/L Normal 45-117 Bilirubin,Total 0.3 mg/dL Normal 0.2-1.0 Bilirubin,Direct < 0.1 mg/dL Normal 0.0-0.2 Total Protein 6.3 GM/DL Low 6.4-8.2 Albumin 3.3 GM/DL Normal 3.2-5.2 Albumin/Globulin Ratio 1.1 Low 1.2-2.2 Laboratory test finding 07/28/2019 [facility] (Interface) [phone] Lipase 240 U/L Normal 73-393 CBC With [...] IU/L 0-40 Alt (SGPT) 10 IU/L 0-32 1 Prediabetes: 5.7 - 6.4 Diabetes: >6.4 [...] HCT IS 5% LESS SOURCE FOR DATA: [employer] 1800 OPERATION MANUAL( AUTOMATED BLOOD COUNTS [...] Little GFR Left ESRD GFR <15 on COLLECTION SYSTEMS TECHNICIAN 8 THERAPUTIC HUMAN INR VALUES INDICATIONS NORMAL RANGES PROPHYLAXIS/TREATMENT OF: VENOUS THROMBOSIS 2.0-3.0 PULMONARY EMBOLISM 2.0-3.0 PREVENTION OF SYSTEMIC EMBOLISM FROM: TISSUE HEART VALVES 2.0-3.0 ACUTE MYOCARDIAL INFARCTION 2.0-3.0 VALVULAR HEART DISEASE 2.0-3.0 ATRIAL FIBRILLATION 2.0-3.0 MECHANICAL VALVES(HIGH RISK) 2.5-3.5 RECURRENT MYOCARDIAL INFARCTION 2.5-3.5 9 Units are mL/min/1.73 m2 Chronic Kidney Disease Staging per NKF: Stage I & II GFR >=60 Normal to Mildly Decreased Stage III GFR 30-59 Moderately Decreased Stage IV GFR 15-29 Severely Decreased Stage V GFR <15 Very Little GFR Left ESRD GFR <15 on COLLECTION SYSTEMS TECHNICIAN 10 This specimen has an elevate d potassium level but there is NO visible hemolysis noted. 11 DIAGNOSIS CRITERIA MMB ng/ml Relative Index (RI) NON-AMI < or = 5 N/A GIL ZONE > 5 < or = 4 AMI > 5 > 4 12 Troponin I Reference Interva l for Siem[facility] [place] [address] LOCI: 99th Percentile= 0.00-0.045 ng/ml Risk Stratification: <= 0.10 ng/ml Decreased Risk for Adverse Clinical Events. 0.10-1.50 ng/ml Increased Risk for Adv erse Clinical Events. Evaluation of additional criterion and/or repeat testing in 2-6 hours is suggested to rule out myocardial damage. >= 1.50 ng/ml Indicative of Myocardial Injury. 13 Prediabetes: 5.7 - 6.4 Diabetes: >6.4 Glycemic control for adults with diabetes: <7.0 Procedures Date Code Description Status 12/28/2019 18990 Electrocardiogram Complete Compl eted 11/22/2019 16649 Electrocardiogram Complete Compl eted 11/15/2019 [id number] Mammogram Completed Medical Devices Description No Information Available Encounters Type Date Location Provider Dx Diagnosis Office Visit 12/28/2019 1:15p [facility] Edgar Brown, RP A R53.83 Other fatigue R06.02 Shortness of breath E11.9 Type 2 diabetes mellitus wit hout complications Office Visit 11/22/2019 1:30p [facility] Jamison Quiros M. D. R61 Generalized hyperhidrosis R42 Dizziness and giddiness I10 Essential (primary) hyperten stephanie E78.5 Hyperlipidemia, unspecified Office Visit 11/06/2019 10:00a [facility] Jamison Quiros M. D. J44.1 Chronic obstructive pulmonary disease w (acute) exacerbation E78.5 Hyperlipidemia, unspecified I10 Essential (primary) hyperten stephanie F41.9 Anxiety disorder, unspecifie d E11.9 Type 2 diabetes mellitus wit hout complications D50.9 Iron deficiency anemia, unsp ecified Z23 Encounter for immunization Office Visit 10/13/2019 2:00p [facility] Jamison Quiros M.D. W57.xxxA Bit/stung by nonvenom insect & oth nonve nom arthropods, init R21 Rash and other nonspecific s kin eruption Office Visit 09/05/2019 3:20p [facility] Jamison Quiros M. D. J44.1 Chronic obstructive pulmonary disease w (acute) exacerbation Office Visit 07/28/2019 10:20a [facility] Jamison Quiros M. D. E78.5 Hyperlipidemia, [...] Jamison Quiros M.D. 11/22/2019 E78.5 Hyperlipidemia, unspecified [facility] Jamison antonio M.D. 11/06/2019 J44.1 Chronic obstructive pulmonary disease with (acute) exacerbation Jamison Quiros M.D. 11/06/2019 E78.5 Hyperlipidemia, unspecified [facility] Jamison antonio M.D. 11/06/2019 I10 Essential (primary) [...] Jamison Quiros M.D. 07/28/2019 E78.5 Hyperlipidemia, unspecified [facility] Jamison antonio M.D. 07/28/2019 I10 Essential (primary) hypertension Jamison Quiros M.D. 07/28/2019 F41.9 Anxiety disorder, unspecified [facility] Jamison duran M.D. 07/28/2019 E11.9 Type 2 diabetes mellitus without complications Jamison Quiros M.D. 07/28/2019 D50.9 Iron deficiency anemia, unspecif ied Jamison Quiros M.D. 07/28/2019 J44.1 Chronic obstructive pulmonary disease with (acute) exacerbation Jamison Quiros M.D. Plan of Treatment Future Appointment(s):* 01/05/2020 10:20 am - Edgar Brown RPA at [facility] * 02/20/2020 10:40 am - Jamison Quiros M.D. at [facility] Functional Status Description No Information Available Mental Status Description No Information Available Referrals Refer to Dr Reason for Referral Status Appt Date [facility] Cardiology diaphoresis and light h eadedness in pt with multiple cardiac risk factors- eval and rx Sent 02/07/2020 [id number] [place] [id number] [phone]
--- OUTSIDE RECORDS SUMMARY | 2020-03-13 18:04 | CCD ---
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 Name Role Phone Ramon KINGSTON MD Unavailable Unavailable Ramon KINGSTON MD Unavailable Unavailable Ramon KINGSTON MD Unavailable Unavailable Ramon KINGSTON MD Unavailable Unavailable Ramon KINGSTON MD Unavailable Unavailable Ramon KINGSTON MD Unavailable Unavailable Ramon KINGSTON MD Unavailable Unavailable Ramon KINGSTON MD Unavailable Unavailable Ramon KINGSTON MD Unavailable Unavailable Ramon KINGSTON MD Unavailable Unavailable Ramon KINGSTON MD Unavailable Unavailable Ramon KINGSTON MD Unavailable Unavailable Ramon KINGSTON MD Unavailable Unavailable Ramon KINGSTON MD Unavailable Unavailable Ramon KINGSTON MD Unavailable Unavailable Ramon KINGSTON MD Unavailable Unavailable Ramon KINGSTON MD Unavailable Unavailable Ramon KINGSTON MD Unavailable Unavailable Ramon KINGSTON MD Unavailable Unavailable Ramon KINGSTON MD Unavailable Unavailable Ramon KINGSTON MD Unavailable Unavailable Ramon KINGSTON MD Unavailable Unavailable Ramon KINGSTON MD Unavailable Unavailable Ramon KINGSTON MD Unavailable Unavailable Ramon KINGSTON MD Unavailable Unavailable Ramon KINGSTON MD Unavailable Unavailable Ramon KINGSTON MD Unavailable Unavailable Ramon KINGSTON MD Unavailable Unavailable Ramon KINGSTON MD Unavailable Unavailable Ramon KINGSTON MD Unavailable Unavailable Ramon KINGSTON MD Unavailable Unavailable Ramon KINGSTON MD Unavailable Unavailable Ramon KINGSTON MD Unavailable Unavailable Ramon KINGSTON MD Unavailable Unavailable Ramon KINGSTON MD Unavailable Unavailable Ramon KINGSTON MD Unavailable Unavailable Ramon KINGSTON MD Unavailable Unavailable Ramon KINGSTON MD Unavailable Unavailable VASHTI H KRISTINE ZAPATA Unavailable Unavailable Ramon KINGSTON MD Unavailable Unavailable Ramon KINGSTON MD Unavailable Unavailable Ramon KINGSTON MD Unavailable Unavailable Ramon KINGSTON MD Unavailable Unavailable VASHTI H KRISTINE ZAPATA Unavailable Unavailable VASHTI H KRISTINE ZAPATA Unavailable Unavailable Ramon KINGSTON MD Unavailable Unavailable VASHTI H KRISTINE ZAPATA Unavailable Unavailable VASHTI H KRISTINE ZAPATA Unavailable Unavailable Ramon KINGSTON MD Unavailable Unavailable VASHTI H KRISTINE ZAPATA Unavailable Unavailable Ramon KINGSTON MD Unavailable Unavailable VASHTI H KRISTINE ZAPATA Unavailable Unavailable VASHTI H KRISTINE ZAPATA Unavailable Unavailable VASHTI H KRISTINE ZAPATA Unavailable Unavailable Ramon KINGSTON MD Unavailable Unavailable VASHTI H KRISTINE ZAPATA Unavailable Unavailable VASHTI H KRISTINE ZAPATA Unavailable Unavailable Ramon KINGSTON MD Unavailable Unavailable Ramon KINGSTON MD Unavailable Unavailable Ramon KINGSTON MD Unavailable Unavailable Ramon KINGSTON MD Unavailable Unavailable Ramon KINGSTON MD Unavailable Unavailable Ramon KINGSTON MD Unavailable Unavailable Ramon KINGSTON MD Unavailable Unavailable Ramon KINGSTON MD Unavailable Unavailable Ramon KINGSTON MD Unavailable Unavailable Ramon KINGSTON MD Unavailable Unavailable Ramon KINGSTON MD Unavailable Unavailable Ramon KINGSTON MD Unavailable Unavailable Ramon KINGSTON MD Unavailable Unavailable Ramon KINGSTON MD Unavailable Unavailable Ramon KINGSTON MD Unavailable Unavailable Ramon KINGSTON MD Unavailable Unavailable Ramon KINGSTON MD Unavailable Unavailable Ramon KINGSTON MD Unavailable Unavailable Ramon KINGSTON MD Unavailable Unavailable Kevin, D Jaime PA Unavailable Unavailable Kevin, D Jaime PA Unavailable Unavailable Kevin, D Jaime PA Unavailable Unavailable Kevin, D Jaime PA Unavailable Unavailable Kevin, D Jaime PA Unavailable Unavailable Kevin, D Jaime PA Unavailable Unavailable Kevin, D Jaime PA Unavailable Unavailable Kevin, D Jaime PA Unavailable Unavailable Kevin, D Jaime PA Unavailable Unavailable Kevin, D Jaime PA Unavailable Unavailable Kevin, D Jaime PA Unavailable Unavailable Kevin, D Jaime PA Unavailable Unavailable Kevin, D Jaime PA Unavailable Unavailable Kevin, D Jaime PA Unavailable Unavailable Kevin, D Jaime PA Unavailable Unavailable Kevin, D Jaime PA Unavailable Unavailable Kevin, D Jaime PA Unavailable Unavailable Kevin, D Jaime PA Unavailable Unavailable Kevin, D Jaime PA Unavailable Unavailable Kevin, D Jaime PA Unavailable Unavailable Kevin, D Jaime PA Unavailable Unavailable Kevin, D Jaime PA Unavailable Unavailable Kevin, D Jaime PA Unavailable Unavailable Kevin, D Jaime PA Unavailable Unavailable Kevin, D Jaime PA Unavailable Unavailable Kevin, D Jaime PA Unavailable Unavailable Kevin, D Jaime PA Unavailable Unavailable Kevin, D Jaime PA Unavailable Unavailable Kevin, D Jaime PA Unavailable Unavailable Kevin, D Jaime PA Unavailable Unavailable Kevin, D Jaime PA Unavailable Unavailable Kevin, D Jaime PA Unavailable Unavailable Kevin, D Jaime PA Unavailable Unavailable Kevin, D Jaime PA Unavailable Unavailable Kevin, D Jaime PA Unavailable Unavailable Kevin, D Jaime PA Unavailable Unavailable Kevin, D Jaime PA Unavailable Unavailable Kevin, D Jaime PA Unavailable Unavailable Kevin, D Jaime PA Unavailable Unavailable Kevin, D Jaime PA Unavailable Unavailable Kevin, D Jaime PA Unavailable Unavailable Kevin, D Jaime PA Unavailable Unavailable Kevin, D Jaime PA Unavailable Unavailable Kevin, D Jaime PA Unavailable Unavailable Kevin, D Jaime PA Unavailable Unavailable Kevin, D Jaime PA Unavailable Unavailable Kevin, D Jaime PA Unavailable Unavailable Kevin, D Jaime PA Unavailable Unavailable Kevin, D Jaime PA Unavailable Unavailable Kevin, D Jaime PA Unavailable Unavailable Kevin, D Jaime PA Unavailable Unavailable Kevin, D Jaime PA Unavailable Unavailable Kevin, D Jaime PA Unavailable Unavailable Kevin, D Jaime PA Unavailable Unavailable Kevin, D Jaime PA Unavailable Unavailable Kevin, D Jaime PA Unavailable Unavailable Kevin, D Jaime PA Unavailable Unavailable Kevin, D Jaime PA Unavailable Unavailable Kevin, D Jaime PA Unavailable Unavailable Kevin, D Jaime PA Unavailable Unavailable Kevin, D Jaime PA Unavailable Unavailable Kevin, D Jaime PA Unavailable Unavailable Kevin, D Jaime PA Unavailable Unavailable Ramon KINGSTON MD Unavailable Unavailable Ramon KINGSTON MD Unavailable Unavailable Ramon KINGSTON MD Unavailable Unavailable Ramon KINGSTON MD Unavailable Unavailable Ramon KINGSTON MD Unavailable Unavailable Ramon KINGSTON MD Unavailable Unavailable Ramon KINGSTON MD Unavailable Unavailable Ramon KINGSTON MD Unavailable Unavailable Ramon KINGSTON MD Unavailable Unavailable Ramon KINGSTON MD Unavailable Unavailable Ramon KINGSTON MD Unavailable Unavailable Ramon KINGSTON MD Unavailable Unavailable Ramon KINGSTON MD Unavailable Unavailable Ramon KINGSTON MD Unavailable Unavailable Ramon KINGSTON MD Unavailable Unavailable Ramon KINGSTON MD Unavailable Unavailable Ramon KINGSTON MD Unavailable Unavailable Ramon KINGSTON MD Unavailable Unavailable Ramon KINGSTON MD Unavailable Unavailable Ramon KINGSTON MD Unavailable Unavailable Ramon KINGSTON MD Unavailable Unavailable Ramon KINGSTON MD Unavailable Unavailable Ramon KINGSTON MD Unavailable Unavailable Ramon KINGSTON MD Unavailable Unavailable Ramon KINGSTON MD Unavailable Unavailable Ramon KINGSTON MD Unavailable Unavailable Ramon KINGSTON MD Unavailable Unavailable Ramon KINGSTON MD Unavailable Unavailable Ramon KINGSTON MD Unavailable Unavailable Ramon KINGSTON MD Unavailable Unavailable Ramon KINGSTON MD Unavailable Unavailable Ramon KINGSTON MD Unavailable Unavailable Ramon KINGSTON MD Unavailable Unavailable Ramon KINGSTON MD Unavailable Unavailable Ramon KINGSTON MD Unavailable Unavailable Ramon KINGSTON MD Unavailable Unavailable Ramon KINGSTON MD Unavailable Unavailable Ramon KINGSTON MD Unavailable Unavailable Ramon KINGSTON MD Unavailable Unavailable Ramon KINGSTON MD Unavailable Unavailable Ramon KINGSTON MD Unavailable Unavailable Ramon KINGSTON MD Unavailable Unavailable Ramon KINGSTON MD Unavailable Unavailable Ramon KINGSTON MD Unavailable Unavailable Ramon KINGSTON MD Unavailable Unavailable Ramon KINGSTON MD Unavailable Unavailable Ramon KINGSTON MD Unavailable Unavailable Ramon KINGSTON MD Unavailable Unavailable Ramon KINGSTON MD Unavailable Unavailable Ramon KINGSTON MD Unavailable Unavailable Ramon KINGSTON MD Unavailable Unavailable Ramon KINGSTON MD Unavailable Unavailable Ramon KINGSTON MD Unavailable Unavailable Ramon KINGSTON MD Unavailable Unavailable Ramon KINGSTON MD Unavailable Unavailable Ramon KINGSTON MD Unavailable Unavailable Ramon KINGSTON MD Unavailable Unavailable Ramon KINGSTON MD Unavailable Unavailable Ramon KINGSTON MD Unavailable Unavailable Ramon KINGSTON MD Unavailable Unavailable Ramon KINGSTON MD Unavailable Unavailable Ramon KINGSTON MD Unavailable Unavailable Ramon KINGSTON MD Unavailable Unavailable Ramon KINGSTON MD Unavailable Unavailable Ramon KINGSTON MD Unavailable Unavailable Ramon KINGSTON MD Unavailable Unavailable Ramon KINGSTON MD Unavailable Unavailable Ramon KINGSTON MD Unavailable Unavailable Ramon KINGSTON MD Unavailable Unavailable Ramon KINGSTON MD Unavailable Unavailable Ramon KINGSTON MD Unavailable Unavailable Ramon KINGSTON MD Unavailable Unavailable Ramon KINGSTON MD Unavailable Unavailable Ramon KINGSTON MD Unavailable Unavailable Ramon KINGSTON MD Unavailable Unavailable Ramon KINGSTON MD Unavailable Unavailable Hunt, M Kassieatt PA Unavailable Unavailable Hunt, M Kassieatt PA Unavailable Unavailable Hunt, M Kassieatt PA Unavailable Unavailable Hunt, M Kassieatt PA Unavailable Unavailable Hunt, M Kassieatt PA Unavailable Unavailable Hunt, M Barratt PA Unavailable Unavailable Hunt, M Barratt PA Unavailable Unavailable Hunt, M Barratt PA Unavailable Unavailable Hunt, M Barratt PA Unavailable Unavailable Hunt, M Kassieatt PA Unavailable Unavailable Hunt, M Kassieatt PA Unavailable Unavailable Hunt, M Kassieatt PA Unavailable Unavailable Hunt, M Barratt PA Unavailable Unavailable Hunt, M Barratt PA Unavailable Unavailable Hunt, M Barratt PA Unavailable Unavailable Hunt, M Barratt PA Unavailable Unavailable Hunt, M Barratt PA Unavailable Unavailable Hunt, M Barratt PA Unavailable Unavailable Hunt, M Barratt PA Unavailable Unavailable Hunt, M Barratt PA Unavailable Unavailable Hunt, M Barratt PA Unavailable Unavailable Hunt, M Barratt PA Unavailable Unavailable Hunt, M Barratt PA Unavailable Unavailable Hunt, M Barratt PA Unavailable Unavailable Hunt, M Barratt PA Unavailable Unavailable Hunt, M Barratt PA Unavailable Unavailable Hunt, M Barratt PA Unavailable Unavailable Nikolay REYES MD Unavailable Unavailable Nikolay REYES MD Unavailable Unavailable Nikolay REYES MD Unavailable Unavailable Nikolay REYES MD Unavailable Unavailable Nikolay REYES MD Unavailable Unavailable Nikolay REYES MD Unavailable Unavailable Nikolay REYES MD Unavailable Unavailable Nikolay REYES MD Unavailable Unavailable Nikolay REYES MD Unavailable Unavailable Nikolay REYES MD Unavailable Unavailable Nikolay REYES MD Unavailable Unavailable Nikolay REYES MD Unavailable Unavailable Nikolay REYES MD Unavailable Unavailable Nikolay REYES MD Unavailable Unavailable Nikolay REYES MD Unavailable Unavailable Nikolay REYES MD Unavailable Unavailable Nikolay REYES MD Unavailable Unavailable Nikolay REYES MD Unavailable Unavailable Nikolay REYES MD Unavailable Unavailable Nikolay REYES MD Unavailable Unavailable Nikolay REYES MD Unavailable Unavailable Nikolay REYES MD Unavailable Unavailable Nikolay REYES MD Unavailable Unavailable Nikolay REYES MD Unavailable Unavailable Nikolay REYES MD Unavailable Unavailable Nikolay REYES MD Unavailable Unavailable Nikolay REYES MD Unavailable Unavailable Nikolay REYES MD Unavailable Unavailable Nikolay REYES MD Unavailable Unavailable Nikolay REYES MD Unavailable Unavailable Nikolay REYES MD Unavailable Unavailable Nikolay REYES MD Unavailable Unavailable Nikolay REYES MD Unavailable Unavailable Nolvia BRUNER MD Unavailable Unavailable Nolvia BRUNER MD Unavailable Unavailable Nolvia BRUNER MD Unavailable Unavailable Nolvia BRUNER MD Unavailable Unavailable ZOHREH, Nolvia FINNEY MD Unavailable Unavailable ZOHREH, Nolvia FINNEY MD Unavailable Unavailable ZOHREH, Nolvia FINNEY MD Unavailable Unavailable Nolvia BRUNER MD Unavailable Unavailable Nolvia BRUNER MD Unavailable Unavailable GHULAM, M DEBBY PA Unavailable Unavailable GHULAM, M DEBBY PA Unavailable Unavailable GHULAM, M DEBBY PA Unavailable Unavailable GHULAM, M DEBBY PA Unavailable Unavailable GHULAM, M DEBBY PA Unavailable Unavailable GHULAM, M DEBBY PA Unavailable Unavailable GHULAM, M DEBBY PA Unavailable Unavailable GHULAM, M DEBBY PA Unavailable Unavailable GHULAM, M DEBBY PA Unavailable Unavailable GHULAM, M DEBBY PA Unavailable Unavailable GHULAM, M DEBBY PA Unavailable Unavailable GHULAM, M DEBBY PA Unavailable Unavailable GHULAM, M DEBBY PA Unavailable Unavailable GHULAM, M DEBBY PA Unavailable Unavailable GHULAM, M DEBBY PA Unavailable Unavailable GHULAM, M DEBBY PA Unavailable Unavailable GHULAM, M DEBBY PA Unavailable Unavailable GHULAM, M DEBBY PA Unavailable Unavailable GHULAM, M DEBBY PA Unavailable Unavailable GHULAM, M DEBBY PA Unavailable Unavailable GHULAM, M DEBBY PA Unavailable Unavailable GHULAM, M DEBBY PA Unavailable Unavailable GHULAM, M DEBBY PA Unavailable Unavailable GHULAM, M DEBBY PA Unavailable Unavailable LETTIERE, A JAIME PA Unavailable Unavailable LETTIERE, A JAIME PA Unavailable Unavailable LETTIERE, A JAIME PA Unavailable Unavailable LETTIERE, A JAIME PA Unavailable Unavailable LETTIERE, A JAIME PA Unavailable Unavailable LETTIERE, A JAIME PA Unavailable Unavailable LETTIERE, A JAIME PA Unavailable Unavailable LETTIERE, A JAIME PA Unavailable Unavailable LETTIERE, A JAIME PA Unavailable Unavailable LETTIERE, A JAIME PA Unavailable Unavailable LETTIERE, A JAIME PA Unavailable Unavailable LETTIERE, A JAIME PA Unavailable Unavailable LETTIERE, A JAIME PA Unavailable Unavailable LETTIERE, A JAIME PA Unavailable Unavailable LETTIERE, A JAIME PA Unavailable Unavailable LETTIERE, A JAIME PA Unavailable Unavailable LETTIERE, A JAIME PA Unavailable Unavailable LETTIERE, A JAIME PA Unavailable Unavailable LETTIERE, A JAIME PA Unavailable Unavailable LETTIERE, A JAIME PA Unavailable Unavailable LETTIERE, A JAIME PA Unavailable Unavailable LETTIERE, A JAIME PA Unavailable Unavailable LETTIERE, A JAIME PA Unavailable Unavailable LETTIERE, A JAIME PA Unavailable Unavailable LETTIERE, A JAIME PA Unavailable Unavailable LETTIERE, A JAIME PA Unavailable Unavailable LETTIERE, A JAIME PA Unavailable Unavailable LETTIERE, A JAIME PA Unavailable Unavailable LETTIERE, A JAIME PA Unavailable Unavailable Re-disclosure Warning The records that you are about to access may contain information from federally-assisted alcohol or drug abuse programs. If such information is present, then the following federally mandated warning applies: This information has been disclosed to you from records protected by federal confidentiality rules (42 CFR part 2). The federal rules prohibit you from making any further disclosure of this information unless further disclosure is expressly permitted by the written consent of the person to whom it pertains or as otherwise permitted by 42 CFR part 2. A general authorization for the release of medical or other information is NOT sufficient for this purpose. The Federal rules restrict any use of the information to criminally investigate or prosecute any alcohol or drug abuse patient.The records that you are about to access may contain highly sensitive health information, the redisclosure of which is protected by Article 27-F of the [facility] Public Health law. If you continue you may have access to information: Regarding HIV / AIDS; Provided by facilities licensed or operated by the [facility] Office of Mental Health; or Provided by the [facility] Office for People With Developmental Disabilities. If such information is present, then the following [facility] mandated warning applies: This information has been disclosed to you from confidential records which are protected by state law. State law prohibits you from making any further disclosure of this information without the specific written consent of the person to whom it pertains, or as otherwise permitted by law. Any unauthorized further disclosure in violation of state law may result in a fine or halfway sentence or both. A general authorization for the release of medical or other information is NOT sufficient authorization for further disc losure. Allergies and Adverse Reactions Type Description Substance Reaction Status Data Source(s ) Drug Allergy NKDA NKDA [facility] ([facility], [facility]) Family History Family Member Name Family Member Gender Family Member Status Date o f Status Description Data Source(s) Unknown Unknown Problem [facility] ([facility]) father,mother,sister Unknown Unknown Problem [facility] ([facility]) Unknown Female Problem [facility] ([facility]) Unknown Female Problem [facility] ([facility] Unknown Female Problem [facility] ([facility]) Unknown Female Problem [facility] Unknown Female Problem [facility]) Unknown Female Problem [facility] ([facility]) Unknown Female Problem [facility] ([facility] Encounters Encounter Providers Location Date Indications Data Source(s ) Outpatient Attender: Christophe VALENCIA [facility] 09:30:00 AM EST [facility] ([facility]) Outpatient Attender: DEBBY [facility]IA [facility] 12/25 04:45:00 PM EST [facility] ([facility]) Outpatient Attender: JAIME Calvert marcial 01/21/2020 12:15:00 PM EST [facility] ([facility], [facility]) Emergency Attender: MICHAEL BRUNER MDConsultant: [facility] 12/31/2019 03:26:00 PM EST - 12/31/2019 06:17:00 PM EST [facility] Patient discharged. Outpatient Attender: Jaime VALENCIA [place] [facility] 06/2019 12:15:00 PM EST [facility] ([facility] Outpatient Attender: KRISTINE KINGSTON MD [place] 01:30:00 PM EDT [facility] ([facility] Outpatient Attender: KRISTINE [facility] 10:00:00 AM EDT [facility] ([facility] Outpatient Attender: KRISTINE [facility] 02:00:00 PM EDT [facility] ([facility] Outpatient Attender: KRISTINE [facility] 03:20:00 PM EDT [facility] ([facility] Outpatient Attender: KRISTINE [facility] 06/2019 10:20:00 AM EDT [facility] ([facility] Outpatient Attender: KRISTINE KINGSTON MD [place] [facility] 10:30:00 AM EST [facility] ([facility] Outpatient Attender: Jaime VALENCIA [place] [facility] 01:00:00 PM EST [facility] ([facility] Outpatient Attender: CATHIE Barnes/Farideh/Levi velasquze/Sheila 02/02/2019 09:30:00 AM EST [facility] ([facility], ) Immunizations Vaccine Date Status Description Data Source(s) New in 2012. IIV4 11/06/2019 11:01:00 AM EDT completed [facility] ([facility] Medications Medication Brand Name Start Date Product Form Dose Route Admi nistrative Instructions Pharmacy Instructions Status Indications Reaction Description Data Source(s) 100 unit/mL (3 mL) 03/03/2020 12:00:00 AM EST insulin pen 15 INJECT 40 UNITS SUBCUTANEOUSLY ONCE DAILY INJECT 40 UNITS SUBCUTANEOUSLY ONCE DAILY SOLD: 03/03/2020 [facility] 10 mg 12/14/2019 12:00:00 AM EDT capsule 60 TAKE 1 TABLET BY MOUTH BEFORE LUNCH AND DINNER FOR COURSE OF 8 WEEKS FOR ABDOMINAL CRAMPING TAKE 1 TABLET BY MOUTH BEFORE LUNCH AND DINNER FOR COURSE OF 8 WEEKS FOR ABDOMINAL CRAMPING SOLD: 12/20/2019 [facility] BLOOD-GLUCOSE METER 12/08/2019 12:00:00 AM EDT misc 1 USE UP TO FOUR TIMES A DAY DIRECTED USE UP TO FOUR TIMES A DAY DIRECTED SOLD: 12/20/2019 [facility] Blood Glucose Monitoring System 12/06/2019 12:00:00 AM EDT active [facility] ([facility] Docusate Sodium 100 MG Oral Capsule [DOK] Dok 11/19/2019 12:00:0 0 AM EDT active [facility] ([facility], ) Aspirin 81 MG Delayed Release Oral Tablet SM Aspirin Adult L ow Strength 11/13/2019 12:00:00 AM EDT active [facility] ([facility] Magnesium Oxide 400 MG Oral Tablet Magnesium Oxide 10/23/2019 12:00 :00 AM EDT active [facility] ([facility] Onetouch Delica Plus Lancets Extra Fine 33G 10/23/2019 12:00 :00 AM EDT active [facility] ([facility] Unifine Pentips Plus 10/23/2019 12:00:00 AM EDT active [facility] 2 % 10/13/2019 12:00:00 AM EDT ointment 44 APPLY TO ARM LESIONS TWO TIMES A DAY APPLY TO ARM LESIONS TWO TIMES A DAY SOLD: 10/14/2019 [facility] Mupirocin 0.02 MG/MG Topical Ointment Mupirocin 10/13/2019 12:00:00 AM EDT active [facility] ([facility] 20 mg 08/31/2019 12:00:00 AM EDT tablet 8 TAKE TWO TABLETS BY MOUTH EVERY DAY TAKE TWO TABLETS BY MOUTH EVERY DAY SOLD: 08/31/2019 [facility] [employer] Verio 07/07/2019 12:00:00 AM EDT act mario [facility] ([facility] duloxetine 60 MG Delayed Release Oral Capsule Duloxetine HCL 05/17/2019 12:00:00 AM EDT ORAL active [facility] ([facility] 140 mg (45 mg iron) 04/10/2019 12:00:00 AM EST tablet extend ed release 60 ONE BY MOUTH TWICE A DAY AFTER MEALS ONE BY MOUTH TWICE A DAY AFTER MEALS SOLD: 04/10/2019 [facility] Docusate Sodium 100 MG Oral Capsule Docusate Sodium 03/31/2019 1 2:00:00 AM EST active [facility] ( [facility], ) 24 HR ferrous sulfate 142 MG Extended Release Oral Tab let Iron (Ferrous Sulfate) 03/20/2019 12:00:00 AM EST ORAL active [facility] ([facility], ) 250 mg 03/10/2019 12:00:00 AM EST tablet 6 TAKE TWO TABLETS BY MOUTH AT ONCE ON THE FIRST DAY THEN TAKE ONE DAILY THEREAFTER TAKE TWO TABLETS BY MOUTH AT ONCE ON THE FIRST DAY THEN TAKE ONE DAILY THEREAFTER SOLD: 03/13/2019 [facility] Guaifenesin 20 MG/ML Oral Solution Guaifenesin 03/10/2019 12:00:00 AM EST ORAL completed [facility] ([facility] Azithromycin 250 MG Oral Tablet Azithromycin 03/10/2019 12:00:[address] ORAL completed [facility] ([facility] pantoprazole 40 MG Delayed Release Oral Tablet Pantoprazole Sodium 03/08/2019 12:00:00 AM EST active M [facility] POLYETHYLENE GLYCOL 3350 142 MG/ML Oral Solution [Miralax] M iralax 02/21/2019 12:00:00 AM EST active M [facility]ENT ([facility], ) Bisacodyl 5 MG Delayed Release Oral Tablet Bisacodyl Ec 02/21/2019 12:00:00 AM EST completed [facility] ([facility], ) Docusate Sodium 100 MG Oral Capsule [Colace] Colace 12:00:00 AM EST ORAL completed [facility] ([facility], ) Bisacodyl 5 MG Delayed Release Oral Tablet [Dulcolax] Dulcol ax 10/26/2018 12:00:00 AM EDT completed [facility] ([facility], ) Clenpiq Clenpiq 10/26/2018 12:00:00 AM EDT complet ed [facility] ([facility], ) Insurance Providers Payer name Policy type / Coverage type Policy ID Covered constitution party ID Covered constitution party's relationship to reynoso Policy Reyn[place] Plan Information R [facility] [id number] 2 [id number] MEDICARE COMPLETE [id number] SP [id number] UMR O [id number] S [id number] MEDICARE COMPLETE-C O [id number] S [id number] HC MEDICARE COMPLETE - O/P [id number] R [facility] [id number] R O [id number] S [id number] [employer] [id number] Self [id number] [facility] [id number] Family Dependent [id number] r Commercial [id number] Family Dependent [id number] [employer] [id number] Self [id number] [employer] [id number] Self [id number] Medicare Natl Gov't Servi Medigap Part B [id number] Self [id number] Umr/Uhc/Pomco Medigap Part B [id number] Family Dependent [id number] United HLCR/Medicare Solu Commercial [id number] Self [id number] Medicare Natl Gov't Servi Medigap Part B [id number] Self [id number] Umr/Uhc/Pomco Medigap Part B [id number] Family Dependent [id number] United HLCR/Medicare Solu Commercial [id number] Self [id number] Medicare Natl Gov't Servi Medigap Part B [id number] Self [id number] Umr/Uhc/Pomco Medigap Part B [id number] Family Dependent [id number] United HLCR/Medicare Solu Commercial [id number] Self [id number] Medicare Dme Supplies Medigap Part B [id number] Self [id number] [place] Medigap Part B [id number] Self [id number] Pomco (pr) Medigap Part B [id number] Family Dependent [id number] Umr (pr) Medigap Part B [id number] Self [id number] [employer] [id number] Self [id number] Pomco/Umr (Old) Medigap Part B [id number] Family Dependent [id number] Medicare Natl Govt Servic Medicare Primary [id number] Self [id number] Umr (New Pomco) Medigap Part B [id number] Family Dependent [id number] [facility] [employer] Private Commercial [id number] Self [id number] Ghi/Em[employer] Medigap Part B [id number] Self [id number] [employer] Commercial [id number] Self [id number] Medicare Dme Supplies Medigap Part B [id number] Self [id number] [place] Medigap Part B [id number] Self [id number] Pomco (pr) Medigap Part B [id number] Family Dependent [id number] Umr (pr) Medigap Part B [id number] Self [id number] Medicare Dme Supplies Medigap Part B [id number] Self [id number] [place] Medigap Part B [id number] Self [id number] Pom[place] (pr) Medigap Part B [id number] Family Dependent [id number] Umr (pr) Medigap Part B [id number] Self [id number] United [employer] Commercial [id number] Self [id number] Medicare Natl Gov't Servi Medigap Part B [id number] Self [id number] Umr/Uhc/Pomco Medigap Part B [id number] Family Dependent [id number] United HLCR/Medicare Solu Commercial [id number] Self [id number] UMR O [id number] P [id number] 1 MEDICARE COMPLETE-UHC O [id number] S [id number] Pomco/Umr (Old) Medigap Part B [id number] Family Dependent [id number] Medicare Natl Govt Servic Medicare Primary [id number] Self [id number] Medicare Natl Gov't Servi Medigap Part B [id number] Self [id number] Umr/Uhc/Pomco Medigap Part B [id number] Family Dependent [id number] United HLCR/Medicare Solu Commercial [id number] Self [id number] [employer] [id number] Self [id number] Umr/Uhc/Pomco Medigap Part B [id number] Family Dependent [id number] Medicare Natl Gov't Servi Medigap Part B [id number] Self [id number] United HLCR/Medicare Solu Commercial [id number] Self [id number] Pomco/Umr (Old) Medigap Part B [id number] Family Dependent [id number] Medicare Natl Govt Servic Medicare Primary [id number] Self [id number] Umr (as Of 06/22/2017) Medigap Part B [id number] Family Depende nt [id number] Pomco/Umr (Old) Medigap Part B [id number] Family Dependent [id number] Medicare Natl Govt Servic Medicare Primary [id number] Self [id number] TLM Com [employer] Commercial [id number] Self [id number] Pom[place] Medigap Part B [id number] Family Dependent [id number] POMCO [id number] HU2 [id number] POMCO PPO O [id number] S [id number] Medicare Natl Gov't Servi Medigap Part B [id number] Self [id number] Pom[place] Medigap Part B [id number] Family Dependent [id number] [employer]/Medicare Solu Commercial [id number] Self [id number] [employer] [id number] Self [id number] Umr Pomco Ppo Medigap Part B [id number] Family Dependent [id number] Medicare Natl Govt Servic Medicare Primary [id number] Self [id number] Umr Pomco Ppo Medigap Part B [id number] Family Dependent [id number] Medicare Natl Govt Servic Medicare Primary [id number] Self [id number] Medicare Natl Gov't Servi Medigap Part B [id number] Self [id number] Pomco Commercial [id number] Family Dependent [id number] Umr Pomco Ppo Medigap Part B [id number] Family Dependent [id number] Medicare Natl Govt Servic Medicare Primary [id number] Self [id number] [employer] Commercial [id number] Self [id number] Pomco Ppo Medigap Part B [id number] Family Dependent [id number] Medicare Natl Govt Servic Medicare Primary [id number] Self [id number] [facility] Medicare Denise Commercial [id number] Self [id number] [employer] Commercial [id number] Self [id number] Pomco Ppo Medigap Part B [id number] Family Dependent [id number] Medicare Natl Govt Servic Medicare Primary [id number] Self [id number] Pomco Ppo Medigap Part B [id number] Family Dependent [id number] Medicare Natl Govt Servic Medicare Primary [id number] Self [id number] [employer] Commercial [id number] Self [id number] [employer] Commercial [id number] Self [id number] Pom[place] Medigap Part B [id number] Family Dependent [id number] Medicare [place]/[facility] Medicare Primary [id number] Self [id number] [facility] Medicare Commercial [id number] Self [id number] Pomco Ppo Medigap Part B [id number] Family Dependent [id number] Medicare Natl Govt Servic Medicare Primary [id number] Self [id number] Pom[place] Ppo Medigap Part B [id number] Family Dependent [id number] Medicare Natl Govt Servic Medicare Primary [id number] Self [id number] TLM Com [employer] Commercial [id number] Self [id number] Pom[place] Medigap Part B [id number] Family Dependent [id number] Medicare Natl Gov't Servi Medicare Primary [id number] Self [id number] Pomco Ppo Medigap Part B [id number] Family Dependent [id number] Medicare Natl Govt Servic Medicare Primary [id number] Self [id number] [facility] Medicare Denise Commercial [id number] Self [id number] Medicare Natl Govt Servic Medicare Primary Self Ghi/[employer] Medigap Part B Ppo Self Ppo Pomco Ppo Commercial 335 Family Dependent 33 5 [employer] Commercial Self Pomco Commercial Family Dependent [facility] Commercial Complete Choice Self Complete Choice Medicare Dme Supplies Medigap Part B Self Pomco (pr) Medigap Part B 335 Family Dependent 335 Medicare [place] Medicare Primary Self MEDICARE [id number] SP [id number] A MEDICARE C [id number] S [id number] A [place] Medigap Part B Family Dependent Medicare Natl Gov't Servi Medicare Primary Self [employer] [id number] HU2 [id number] [employer] [id number] SP [id number] GHI P [id number] S [id number] Problems, Conditions, and Diagnoses Code Display Name Description Problem Type Effective Dates Data Source(s) Corns and callosities Corns and callosities Problem 10/24/2019 12:00:00 AM EDT [facility] ([facility] [id number] Personal history of nicotine dependence Personal history of nicotine dependence Diagnosis 12/31/2019 03:26:00 PM [facility] Z7984 [facility] (current) use of oral hypoglyc emic drugs manager intermediate (current) use of oral hypoglycemic drugs Diagnosis 12/31/2019 03:26:00 PM [facility] Z7982 manager intermediate (cu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 [facility] (cu 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 Diagnosis 12/31/2019 03:26:00 PM [facility] I10 Essential (primary) hypertension Essential (primary) h ypertension Diagnosis 12/31/2019 03:26:00 PM [facility] E785 Hyperlipidemia, unspecified Hyperlipidemia, unspecifie d Diagnosis 12/31/2019 03:26:00 PM [facility] E119 Type 2 diabetes mellitus without complic ations Type 2 diabetes mellitus without complications Diagnosis 12/31/2019 03:26:00 PM [facility] J9801 Acute bronchospasm Acute bronchospasm Diagnosis 09/2019 03:26:00 PM [facility] R0789 Other chest pain Other chest pain Diagnosis 12/31/2019 03 :26:00 PM [facility] Surgeries/Procedures Procedure Description Date Indications Data Source(s) RADEX FINGR MINIMUM 2 VIEWS 03/12/2020 12:00:00 AM EST [facility] ([facility] ) RADEX FINGR MINIMUM 2 VIEWS 02/27/2020 12:00:00 AM EST [facility] ([facility] ) DEBRIDEMENT NAIL ANY METHOD > 12/28/2019 12:00:00 AM EST [facility] ([facility] Electrocardiogram Complete 12/28/2019 12:00:00 AM EST [facility] ([facility] Electrocardiogram Complete 11/22/2019 12:00:00 AM EDT [facility] ([facility] Mammogram 11/15/2019 12:00:00 AM EDT M [facility] ([facility] PARING/CUTTING BENIGN HYPERKERATOTIC LESION 1 10/18/19 20 12:00:00 AM EDT [facility] ([facility] DEBRIDEMENT NAIL ANY METHOD 10/18/2019 12:00:00 AM EDT [facility] ([facility] PARING/CUTTING BENIGN HYPERKERATOTIC LESION 1 08/10/19 20 12:00:00 AM EDT [facility] ([facility] DEBRIDEMENT NAIL ANY METHOD 08/10/2019 12:00:00 AM EDT [facility] ([facility] Capsule Endoscopy Small Bowel 03/06/2019 12:00:[address] [facility] ([facility], ) PARING/CUTTING BENIGN HYPERKERATOTIC LESION 1 03/02/19 12:00:00 AM EST [facility] ([facility] DEBRIDEMENT NAIL ANY METHOD 03/02/2019 12:00:00 AM EST [facility] ([facility] Results ID Date Data Source [id number] 02/29/2020 07:44:00 PM EST [facility] Name Value Range Interpretation Code Description Data Leona rce(s) Supporting Document(s) SARS-CoV-2 (COVID 19) NEGATIVE - SARS-CoV-2 (COVID19) [facility] This lab was ordered by [facility] a nd reported by [facility]. ID Date Data Source [id number] 01/01/2020 10:05:00 AM EST [facility] [address] [place] [address] RESPIRATORY CARE REPORT ==== ---------NAME------- NUMBER SEX AGE ADMIT DISC. XRAY# F/C NIDA De Souza [id number] F 69 12/31/19 12/31/19099917 JAN E/R DATE OF : 1950 M/R# [id number] #: [id number] TR-02 LOCATION: EMERGENCY DEPT EKG [id number] COMP LETE:12/31/19 16:15 CJM [id number] PHYSICIAN: VENERUS BR Name Value Range Interpretation Code Description Data Leona rce(s) Supporting Document(s) ID Date Data Source [id number] 01/01/2020 10:02:00 AM EST [facility] [address] [place] [address] PHONE: [phone] FAX: [phone] Name .................. : MARY De Souza Acct Number.................. : [id number] ROOM. ................. : TR-02 MR Number ................... : [id number] Stay type ............. : E/R Discharge Date......... ... : Admit Date ......... : 12/31/19 Admit Phys .................... : ZOHREH WAITE Date of ....... : 1950 Family Phys ................... : VASHTI Connelly Phone .................. : [phone] Age ................................ : 69 Film# .................. .:[id number] Sex ................................. : F Unsigned transcriptions are preliminary reports and do not represent a medical or legal document CHEST PORTABLE [id number] COMPLETE:12/31/19 15:38 75377 Reason(s): Chest Pain PORTABLE CHEST X-RAY: HISTORY: Chest pain. COMPARISON: None. FINDINGS: Normal heart size and pulmonary vessels. Clear lungs. No pleural effusions. No acute or focal osseous abnormal. IMPRESSION: No active disease is seen in the chest. Electronically Reviewed and Signed By Mark Anthony Fischer MD , 01/01/20 10:02, APM Transcribe Initials: HAZEL , Transcribe Date: 12/31/19 17:35, Dictation Date: Copy for: EMERGENCY DEPT via modem Copy for: 710 MED REC DISCHARGED Page 1 of 1 Name Value Range Interpretation Code Description Data Leona rce(s) Supporting Document(s) ID Date Data Source [id number] 12/31/2019 03:26:00 PM EST [facility] 1 OrderSheet [facility] Emergency Department [address] [place] [address] Phone #: ext- [phone] 12/31/2019 15:23 Patient: SARMAD HERNANDEZ Sex: F : 1950 Age: 69yWEIGHT:79.3 kg (S) HEIGHT:60 inches (S) BMI:34.1ALLERGIES: Tape allergyCHIEF COMPLAINT: chest painDIAGNOSIS: BronchospasmLAB ORDERSOrder Description Priority Entered Acknowledged InitialedUrinalysis (Clean STAT 15:37 12/31/2019 16:17 Clemente Courtney) Michael Eastman R.N. Physician;BNP STAT 15:37 12/31/2019 15:44 Michael Courtney R.N. Physician;CBC w Diff STAT 15:37 12/31/2019 15:43 Michael Courtney R.N. Physician;CMP STAT 15:37 12/31/2019 15:43 Michael Courtney R.N. Physician;D-Dimer STAT 15:37 12/31/2019 15:43 Michael Courtney R.N. Physician;Troponin-T STAT 15:37 12/31/2019 15:43 Michael Courtney R.N. Physician;Troponin-T STAT 18:05 12/31/2019 Cancelled: Physician Order 18:06 Michael Bruner Physician Physician;DIAGNOSTIC STUDY ORDERSOrder Description Priority Entered Acknowledged InitialedChest Portable 1 STAT 15:38 12/31/2019 16:17 Roz,Dionicio Eastman R.N.(Oxygen?(No)) Physician; Reason for Study: Chest Pain, Shortness of BreathMEDICATION/IV/DRIP/FLUID ORDERSOrder Description Priority Entered Acknowledged Initialed 2 OrderSheet [facility] Emergency Department [address] [place] [address] Phone #: ext- [phone] 12/31/2019 15:23 Patient: SARMAD HERNANDEZ Sex: F : 1950 Age: 69yAspirin PO 15:39 12/31/2019 15:44 Roz,Chewable 81 mg Michael Gibbons.NJanuary162 mg (NOW) Physician;DuoNeb 3 mL X2 15:49 12/31/2019 15:52 G roves,Doses: 6 mL (3 mL Michael Eastman R.N.X2 Doses) Physician;SOLU-Medrol 125 15:49 12/31/2019 15:53 Roz,mg IV X1 Dose: 125 Michael Gibbons.N.mg (X1) Physician;DuoNeb Neb Tx 3 17:03 12/31/2019 17:27 Roz,Robert (NOW) Michael Eastman R.N. Physician;GENERAL ORDERSOrder Description Priority Entered Acknowledged InitialedCardiac Monitor 15:38 12/31/2019 15:43 Roz(continuous) Michael Eastman R.N. Physician;EKG 15:38 12/31/2019 15:43 Michale Courtney R.N. Physician;Saline Lock 15:38 12/31/2019 15:43 Michael Courtney R.N. Physician;Pulse oximeter 15:38 12/31/2019 15:43 Roz(Continuous) Michael Eastman R.N. Physician;Oxygen titrate to 15:38 12/31/2019 15:43 Roz,92% Michael Eastman R.N. Physician;[Electronically signed by Jaren Courtney R.N. (18:17 12/31/2019)][Electronically signed by Michael Bruner Physician (18:45 12/31/2019)][Electronically locked by Jaren Courtney R.N. (18:17 12/31/2019)] Name Value Range Interpretation Code Description Data Leona rce(s) Supporting Document(s) ID Date Data Source [id number] 12/31/2019 03:26:00 PM EST [facility] 1 Medication Reconciliation Report [facility] Emergency Department [address] [place] [address] Phone #: ext- [phone] 12/31/2019 15:23 Patient: SARMAD HERNANDEZ Sex: F : 1950 Age: 69yWeight: 79.3 kgHeight/Length: 60 in.BMI: 34.1ALLERGIES: Tape allergyThe patient's Home Medications are listed below:THE FOLLOWING MEDICATIONS NEED TO BE RECONCILED: Albuterol Sulfate Inhalation Aspirin Oral (325 mg), daily Diclomine DULoxetine HCl Oral Inhaler Levemir Subcutane ous (100 unit/mL) 50 units, daily Lisinopril Oral Lovastatin Oral metFORMIN HCl Oral Protonix Oral (40 mg), dailyThe source(s) of the original Home Medication information:Not obtained.The following Medications were given to the patient in the Emergency Department:ASPIRIN CHEWABLE 81 MG [PO] PO 81 mg, administered: 12/31/2019 3:44:00 PMDuoneb [Neb Tx] Neb TX 2 unit dose, administered: 12/31/2019 3:52:00 PM 2 Medication Reconciliation Report [facility] Emergency Department [address] [place] [address] Phone #: ext- [phone] 12/31/2019 15:23 Patient: SARMAD HERNANDEZ Sex: F : 1950 Age: 69ySolu-Medrol [IVP] IVP 125 mg, administered: 12/31/2019 3:53:00 PMDuoneb [Neb Tx] Neb TX 1 unit dose, administered: 12/31/2019 5:27:00 PMThe following Medications were prescribed to the patient:albuterol sulfate HFA 90 mcg/actuation aerosol inhaler Inhale 2 puff every six hours as needed for 10 days-- for wheezes / SOB. Dispense 1 inhaler. Refills: 1. Substitution permitted.Pharmacy - [facility] - [address] [facility] ; [place] [address]. . -- Physician ManoloPrednisone 10mg Tapersig: take 6 tabs PO each day for 2 days, thenTake 5 tabs PO each day for 2 days, thenTake 4 tabs PO each day for 2 days, thenTake 3 tabs PO each day for 2 days, thenTake 2 tabs PO each day for 2 days, thenTake 1 tab PO each day for 2 days.Disp# 42. -- Michael Bruner Physician Name Value Range Interpretation Code Description Data Leona rce(s) Supporting Document(s) ID Date Data Source [id number] 12/31/2019 03:26:00 PM EST [facility] 1 Medication Administration Record [facility] Emergency Department [address] [place] [address] Phone #: ext- [phone] 12/31/2019 15:23 Patient: SARMAD HERNANDEZ Sex: [place]dsey : 1950 Age: 69yWeight: 79.3 kgHeight/Length: 60 inBMI: 34.1ALLERGIES: Tape allergy Date/Time Medication Administered Medication OrderedGiven ASPIRIN CHEWABLE 81 MG [PO] Aspirin PO Chewable 81 mg 82902:44 12/31/2019 Dose: 81 mg Tablets PO mg (NOW)Jaren Courtney R.N.Given DUONEB [NEB TX] DuoNeb 3 mL X2 Doses: 6 mL (315:52 12/31/2019 Dose: 2 unit dose Nebulizer Neb TX mL X2 Doses)Jaren Courtney R.N.Given SOLU-MEDROL [IVP] SOLU-Medrol 125 mg IV X1 Dose:15:53 12/31/2019 (METHYLPREDNISOLONE SODIUM 125 mg (X1)Jaren Courtney R.N. SUCC) Dose: 125 mg IVP Site: #1 right ACGiven DUONEB [NEB TX] DuoNeb Neb Tx 3 mL (NOW)17:27 12/31/2019 Dose: 1 unit dose Nebulizer Neb TXJaren Courtney R.N. Name Value Range Interpretation Code Description Data Leona rce(s) Supporting Document(s) ID Date Data Source [id number] 12/31/2019 03:26:00 PM EST [facility] 1 General Instructions [facility] Emergency Department [address] [place] [address] Phone #: ext- [phone] 12/31/2019 15:23 Patient: SARMAD HERNANDEZ Sex: F : 1950 Age: 69yAcute bronchospasm (Mild).INSTRUCTIONSAvoid stimulants (such as cigarettes, coffee, cold medicines, sinus medicines, street drugs). Do notsmoke.Warnings: Further evaluation is necessary.GENERAL WARNINGS: Return or contact your physician immediately if your condition worsens orchanges unexpectedly, if not improving as expected, or if other problems arise.Prescription Medications:albuterol sulfate HFA 90 mcg/actuation aerosol inhaler Inhale 2 puff every six hours as needed for 10 days-- for wheezes / SOB. Dispense 1 inhaler. Refills: 1. Substitution permitted.Pharmacy - [facility] - [address] [facility] ; [place] [address]. .Prednisone 10mg Tapersig: take 6 tabs PO each day for 2 days, thenTake 5 tabs PO each day for 2 days, thenTake 4 tabs PO each day for 2 days, thenTake 3 tabs PO each day for 2 days, thenTake 2 tabs PO each day for 2 days, thenTake 1 tab PO each day for 2 days.Disp# 42.Follow-up:Follow up with your doctor tomorrow if not better. Call for an appointment. Reason for referral: evaluation,treatment and Asthma / Bronchospasm / Wheezing.Understanding of the discharge instructions verbalized by patient. ADDITIONAL INFORMATIONBronchospasm (Adult) 2 General Instructions [facility] Emergency Department [address] [place] [address] Phone #: ext- [phone] 12/31/2019 15:23 Patient: SARMAD HERNANDEZ Sex: F : 1950 Age: 69yBronchospasm occurs when the airways (bronchial tubes) go into spasm and contract. This makes ithard to breathe and causes wheezing (a high-pitched whistling sound). Bronchospasm can alsocause frequent coughing without wheezing.Bronchospasm is due to irritation, inflammation, or allergic reaction of the airways. People withasthma get bronchospasm. However, not everyone with bronchospasm has asthma.Being exposed to harmful fumes, a recent case of bronchitis, exercise, or a flare-up of chronicobstructive pulmonary disease (COPD) may cause the airways to spasm. An episode ofbronchospasm may last 7 to 14 days. Medicine may be prescribed to relax the airways and preventwheezing. Antibiotics will be prescribed only if your healthcare provider thinks there is a bacterialinfection. Antibiotics do not help a viral infection.Home care Drink lots of water or other fluids (at least 10 glasses a day) during an attac k. This will loosen lung secretions and make it easier to breathe. If you have heart or kidney disease, check with your doctor before you drink extra fluids. 3 General Instructions [facility] Emergency Department [address] [place] [address] Phone #: ext- [phone] 12/31/2019 15:23 Patient: SARMAD HERNANDEZ Sex: F : 1950 Age: 69y Take prescribed medicine exactly at the times advised. If you take an inhaled medicine to help with breathing, don't use it more than once every 4 hours, unless told to do so. If prescribed an antibiotic or prednisone, take all of the medicine, even if you are feeling better after a few days. Don't smoke. Also avoid being exposed to secondhand smoke. If you were given an inhaler, use it exactly as directed. If you need to use it more often than prescribed, your condition may be getting worse. Contact your healthcare provider.Follow-up careFollow up with yo healthcare provider, or as advised.If you are age 65 or older, have a chronic lung disease or condition that affects your immune system,or you smoke, ask your healthcare provider about getting a pneumococcal vaccine, as well as ayearly flu shot (influenza vaccine).When to seek medical adviceCall your healthcare provider right away if any of these occur: You need to use your inhalers more often than usual Fever of 100.4F (38C) or higher, or as directed by your healthcare provider Cough that brings up lots of dark-colored sputum (mucus) You don't get better within 24 hoursCall 911Call 911 if any of these occur: Coughing up bloody sputum (mucus) Chest pain with each breath Increased wheezing or shortness of breath [phone] [employer]. [address] [place] [address]. All rights reserved. This information is not intended as asubstitute for professional medical care. Always follow your healthcare professional's instructions.Asthma (Adult)Asthma is a disease where the medium and small air passages within the lung go into spasm andrestrict the flow of air. Inflammation and swelling of the airways cause further blockage. During an 4 General Instructions [facility] Emergency Department [address] [place] [address] Phone #: ext- [phone] 12/31/2019 15:23 Patient: SARMAD HERNANDEZ Sex: F : 1950 Age: 69yacute asthma attack, these factors cause trouble breathing, wheezing, cough and chest tightness.An asthma attack can be triggered by many things. Common triggers include infections such as thecommon cold, bronchitis, and pneumonia. Irritants such as smoke or pollutants in the air, very coldair, emotional upset, and exercise can also trigger an attack. In many adults with asthma, allergiesto dust, mold, pollen and animal dander can cause an asthma attack. Skipping doses of daily asthmamedicine can also bring on an asthma attack.Asthma can be controlled using the proper medicines prescribed by your healthcare provider andavoiding exposure to known triggers including allergens and irritants.Home care Take prescribed medicine exactly at the times advised. If you need medicine such as from a hand held inhaler or aerosol breathing machine more than every 4 hours, contact your healthcare provider or seek immediate medical attention. If prescribed an antibiotic or prednisone, take all of the medicine as prescribed, even if you are feeling better after a few 5 General Instructions [facility] Emergency Department [address] [place] [address] Phone #: ext- [phone] 12/31/2019 15:23 Patient: SARMAD HERNANDEZ Sex: F : 1950 Age: 69y days. Don't smoke. Avoid being exposed to the smoke of others. Some people with asthma have worsening of their symptoms when they take aspirin and non-steroidal or fever-reducing medicines like ibuprofen and naproxen. Talk to your healthcare provider if you think this may apply to you.Follow-up careFollow up with your healthcare provider, or as advised. Always bring all of your current medicines toany appointments with your healthcare provider. Also bring a complete list of medicines even thosenot taken for asthma. If you don't already have one, talk to your healthcare provider about developingyour own "Asthma Action Plan."A pneumococcal (pneumonia) vaccine and yearly flu shot (every fall) are recommended. Ask yourdoctor about this.When to seek medical adviceCall your healthcare provider right away if any of these occur: Increased wheezing or shortness of breath Need to use your inhalers more often than usual without relief Fever of 100.4F (38C) or higher, or as directed by your healthcare provider Coughing up lots of dark-colored or bloody sputum (mucus) Chest pain with each breath If you use a peak flow meter as part of an Asthma Action Plan, and you are still in the yellow zone (50% to 80%) 15 minutes after using inhaler medicine.Call [phone] if any of the following occur Trouble walking or talking because of shortness of breath If you use a peak flow meter as part of an Asthma Action Plan and you are still in the red zone (less than 50%) 15 minutes after using inhaler medicine Lips or fingernails turning gil or blue [phone] [employer]. [address] [place] [address]31. All rights reserved. 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 Always follow your healthcare professional's instructions. You have been given the following additional information: Bronchospasm (Adult) Asthma, Acute (Adult)(Electronically signed by Michael Bruner, Physician 12/31/2019 18:45) Name Value Range Interpretation Code Description Data Leona rce(s) Supporting Document(s) ID Date Data Source [id number] 12/31/2019 03:26:00 PM EST [facility] 1 Clinical Report - Nurses [facility] Emergency Department [address] [place] [address] Phone #: [phone]- [phone] 12/31/2019 15:23 Patient: SARMAD HERNANDEZ Sex: F : 1950 Age: 69yTRIAGEArrived by EMS. Historian: patient. Unaccompanied. ( woke up this substernal chest pain to leftshoulder , sr on monitor per ems, fs 168 no dizziness, abd distended).Acuity: LEVEL 3.Chief Complaint: CHEST PAIN and (left shoulder).This started today. She has had difficulty breathing. Reports experiencing sweating episodes. She hashad a cough (3 days). 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 --15:35 12/31/19 Fay Martinez R.N.15:24 12/31/19. BP: 148/110 taken on the left arm, while lying. MAP: 122. HR: 68. RR: 18. O2 saturation:98% on room air. Temp: 97.8 F. Pain level now: 07/01. --15:35 12/31/19 Fay Martinez R.N.Weight: 79.3 kg stated. Height/Length: 60 inches Per Mendez tai. BMI: 34.1. --15:24 12/31/19 Fay Martinez R.N.MedicationsProtonix Oral (Tablet Delayed Release 40 mg), daily. --15:29 12/31/19 Fay Martinez R.N. Aspirin Oral (Tablet 325 mg), daily. Lovastatin Oral. --15:30 12/31/19 Fay Martinez R.N. DULoxetine HCl Oral. Levemir Subcutaneous (Solution 100 unit/mL) 50 units, daily. Lisinopril Oral. metFORMIN HCl Oral. --15:31 12/31/19 Fay Martinez R.N. Diclomine. --15:31 12/31/19 Fay Martinez R.N. Albuterol Sulfate Inhalation. --15:32 12/31/19 Fay Martinez R.N. Inhaler. --15:32 12/31/19 Fay Martinez R.N.AllergiesTape allergy. (scotch tape) --15:28 12/31/19 Fay Martinez R.N.PROBL EMS:Asthma.Hypertension.Hypercholesterolemia.Diabetes Mellitus.Gi issues. --15:33 12/31/19 Fay Martinez R.N.ADDITIONAL SURGERIES: 2 Clinical Report - Nurses [facility] Emergency Department [address] [place] [address] Phone #: ext- [phone] 12/31/2019 15:23 [id number] 1950 Age: 69y Appendectomy. Arm surgery. Cyst removed. D. Hysterectomy. --15:33 12/31/19 Fay Martinez R.N. History PAST MEDICAL HX: Immunizations: up-to-date. The patient has had a hysterectomy. SOCIAL HX: Smoker- current status unknown (quit 9 years ago). Alcohol use. (quit 9 years ago). No drug use. She was offered HIV testing but declined and hepatitis C testing but declined. She has not traveled outside the [place] Infectious disease exposure: No infectious disease exposure. Patient is not a known carrier of tuberculosis, hepatitis, HIV, MRSA or VRE. Patient is not a known carrier of CRE. SELF HARM ASSESSMENT: Self harm assessment was performed. The patient answered "no" to the question(s) "Have you recently felt down, depressed, or hopeless?", "Do you have thoughts of harming or killing yourself?", "Do you have a plan for harming or killing yourself?", "Have you recently had thoughts about harming or killing others?", "Do you have any dangerous items in your possession?", "Have you noticed less interest or pleasure in doing things?", "Are you here because you tried to hurt yourself?" and "Have you ever tried to hurt yourself before today?". ABUSE ASSESSMENT: Abuse assessment. Abuse denied. No suspicion of abuse. No report of abuse. NUTRITIONAL RISK ASSESSMENT: The nutritional risk assessment revealed no deficiencies. FUNCTIONAL ASSESSMENT: Functional assessment: no impairments noted. LEARNING NEEDS ASSESSMENT: The learning needs assessment revealed no ba rriers. FALL RISK ASSESSMENT: Fall risk assessment completed. No risk factors identified. SKIN INTEGRITY ASSESSMENT: Skin integrity risk assessment completed. No skin integrity risk identified. --15:35 12/31/19 Fay Martinez R.N. Interventions Identification band on patient. To treatment room. --15:35 12/31/19 Fay Martinez R.N. Advanced care plan discussed with patient. Patient has a uf-mxp-mwhgjjmqqim (DNR) (dnr/dni). --15:36 12/31/19 Fay Martinez R.N.PHYSICAL ASSESSMENTGENERAL / NEURO / PSYCH: Alert. Oriented X 4. Appears anxious.RESPIRATORY: Respirations not labored.CVS: Normal sinus rhythm noted. 3 Clinical Report - Nurses [facility] Emergency Department [address] [place] [address] Phone #: ext- [phone] 12/31/2019 15:23 Patient: SARMAD HERNANDEZ Sex: F : 1950 Age: 69y SKIN: Skin is warm and dry. --15:44 12/31/19 Jaren Courtney R.N.NURSING PROGRESS NOTESCardiac monitor and NIBP monitor placed on patient; monitor alarms on. Patient gowned. Reassurancegiven. Two patient identifiers checked. Call light placed in reach. Side rails up x 2. Bed placed inlowest position. Brakes of bed on. Patient ready for evaluation- ED physician notified. --15:36 12/31/19Fay Martinez R.N. 15:37 12/31/19. BP: 112/63. MAP: 79. --15:37 12/31/19 Fay Martinez R.N. 15:44 12/31/2019 ASPIRIN CHEWABLE 81 MG PO Tablets 81 mg given. --15:44 12/31/19 Jaren Courtney R.N. 15:52 12/31/2019 Duoneb Neb TX Nebulizer 2 unit dose given. --15:52 12/31/19 Jaren Courtney R.N. 15:53 12/31/2019 Site #1 started via IV in the right antecubital space with an 20g angiocath; one attempt. Blood drawn: rainbow set. Saline lock flushed with 3 mL saline. --15:53 12/31/19 Jaren Courtney R.N. 15:53 12/31/2019 Solu-Medrol (methylPREDNISolone Sodium Succ) IVP 125 mg given over 3 minute(s) via site #1. --15:53 12/31/19 Jaren Courtney R.N. Reassessment after medication administered. Respiratory distress still present but improving. She is calm. Overall patient status is improved. Side rails up. Bed placed in lowest position. Brakes of bed on. --15:56 12/31/19 Jaren Courtney R.N. 15:55 12/31/19. BP: 130/61. MAP: 84. HR: 66. RR: 20. O2 saturation: 100%. Temp: deferred. Pain level now: 0/10. --15:56 12/31/19 Jaren Courtney R.N. 16:17 12/31/19. BP: 96/69. MAP: 78. HR: 72. RR: 18. O2 saturation: 100%. Temp: deferred. Pain level now: 0/10. --16:20 12/31/19 Jaren Courtney R.N. ( became sob upon ambulation to the place back on the monitor VSS.). --16:20 12/31/19 Jaren Courtney R.N. Reassurance given to the p atient. Patient waiting for radiology results. --16:35 12/31/19 Jaren Courtney R.N. Portable chest x-ray completed. (0625). --16:35 12/31/19 Jaren Courtney R.N. 17:03 12/31/19. BP: 138/56. MAP: 83. HR: 74. RR: 20. O2 saturation: 97%. Temp: 98.6 F. --17:08 12/31/19 Ashley Sears RN 17:27 12/31/2019 Duonesaul Neb TX Nebulizer 1 unit dose given. --17:27 12/31/19 Jaren Courtney R.N. 4 Clinical Report - Nurses [facility] Emergency Department [address] [place] [address] Phone #: ext- [phone] 12/31/2019 15:23 Patient: SARMAD HERNANDEZ Sex: F : 1950 Age: 69y Reassurance given to the patient. --17:27 12/31/19 Jaren Courtney R.N. 17:27 12/31/19. BP: 113/60. MAP: 77. HR: 64. RR: 18. O2 saturation: 100%. Temp: deferred. Pain level now: 0/10. --17:27 12/31/19 Jaren Courtney R.N. EKG time: (late entry - 15:32 12/31/2019). EKG was performed by a tech and shown to the ED physician. --17:43 12/31/19 [employer] professor/nurse anesthetist, JENNY Mariscal Tech1.DISPOSITION / DISCHARGE No learning barriers present. Written instructions provided in Greenlandic. The patient was discharged by the physician. She was discharged home and accompanied by family. She left ambulatory and via private vehicle. Family member driving. --18:17 12/31/19 Jaren Courtney R.N. 18:15 12/31/19. BP: 108/62. MAP: 77. HR: 61. RR: 18. O2 saturation: 97%. Temp: deferred. Pain level now: 2/10. --18:17 12/31/19 Jaren Courtney R.N. Departure time: 18:17 12/31/2019. --18:17 12/31/19 Jaren Courtney R.N.Locked/Released at 12/31/2019 18:17 by Jaren Courtney R.N. Name Value Range Interpretation Code Description Data Leona rce(s) Supporting Document(s) ID Date Data Source [id number] 12/31/2019 03:26:00 PM [facility] 1 Clinical Report - Physicians/Mid Levels [facility] Emergency Department [address] [place] [address] Phone #: ext- [phone] 12/31/2019 15:23 [id number] Sex[facility] : 1950 Age: 69y Time Seen: 15:25 12/31/2019. Arrived- By ambulance. Historian- EMS personnel. Disposition decision: 18:06 12/31/2019.HISTORY OF PRESENT ILLNESS Chief Complaint: CHEST PAIN. Since yesterday. It is described as pressure, tightness, aching and diffuse and it is described as located in the central chest area. This started today Cough for 3 days; Wheezes / chest tightness / chest heaviness. and is still present. It was abrupt in onset and has been waxing/waning. Onset during light activity. When seen in the E.D., severity described as 5 / 10. Modifying factors- worsened by exertion, movement, walking, cough and deep breaths. No nausea, vomiting or diaphoresis. She has had difficulty breathing. Similar symptoms previously. Patient has had similar symptoms many times, chronically. Recent medical care: Not recently seen/assessed.REVIEW OF SYSTEMSNo fever, chills, pedal edema, calf pain or missed periods. No fainting episodes, headache, sore throat,blurred vision or abdominal pain. No black stools, difficulty with urination, skin rash, enlarged lymph nodesor joint pain. No bloody stools. The patient has had a mild nonproductive cough (Rare).PAST HISTORYPast history not negative. See nurses notes. Hypertension. Diabetes mellitus. Lung disease. GIdisease. Other disease. Hyperlipidemia. AsthmaGERD. Surgeries: Appendectomy. Dilatation and Curettage. Had hysterectomy. (Arm surgery Cyst removal).SOCIAL HISTORYFormer smoker. Alcohol use. Last drink was 9 years ago. No drug use. No recent travel.ADDITIONAL NOTESThe nursing notes have been reviewed with agreement regarding the chief complaint, HPI, ROS, PMH andpatient medications and allergies.PHYSICAL EXAMVital Signs: 12/31/2019 15:24 BP: lying 148/110. MAP: 122. HR: 68. RR: 18. O2 saturation: 98% on roomair. Temp: 97.8 F. Pain level now: 07/01. Have been reviewed and appear to be correct. Hypertensive.Heart rate normal. Respiratory rate normal. Temperature normal. Oxygen saturation normal.Appearance: Alert. Oriented X3. Anxious. Patient in mild distress. In distress.Eyes: Pupils equal, round and reactive to light. Eyes normal inspection. 2 Clinical Report - Physicians/Mid Levels [facility] Emergency Department [address] [place] [address] Phone #: ext- [phone] 12/31/2019 15:23 Patient: SARMAD HERNANDEZ Sex: F : 1950 Age: 69y ENT: Nose normal. Pharynx normal. Neck: Normal inspection. Neck supple. CVS: Normal heart rate and rhythm. Heart sounds normal. Pulses normal. Respiratory: No respiratory distress. Breath sounds abnormal. Painless inspiration. Expiratory mild bilateral wheezes present. Chest nontender. Abdomen: Soft and nontender. Bowel sounds normal. No organomegaly. No mass. Back: Normal external inspection. Skin: Skin warm and dry. Abnormal skin color. No rash. Normal skin turgor. Pallor. Extremities: Bilateral mild 2+ pitting edema of the lower extremities involving both feet, both ankles and both lower legs. Extremities exhibit normal ROM. No lower extremity edema. Neuro: Oriented X 3. No motor deficit. No sensory deficit.LABS, X-RAYS, AND EKGLaboratory Tests: Laboratory tests have been ordered, with results reviewed and considered in themedical decision making process. Troponin-T: (POONAM: 12/31/2019 18:05) ( MsgRcvd 12/31/2019 18:07) Canceled Chest Portable 1 View: (POONAM: 12/31/2019 15:38) ( MsgRcvd 12/31/2019 17:39) In [place] [address] PHONE: [phone] FAX: [phone] Name .................. : MARY De Souza Acct Number.................. : [id number] ROOM. ................. : TR-02 MR Number ................... : [id number] Stay type ............. : E/R Discharge Date......... ... : Admit Date ......... : 12/31/19 Admit Phys .................... : ZOHREH WAITE Date of ....... : 1950 Family Phys ................... : VASHTI S Phone .................. : [phone] Age ..................... ........... : 69 Film# .................. .:[id number] Sex ................................. : F Unsigned transcriptions are preliminary reports and do not represent a medical or legal document CHEST PORTABLE [id number] COMPLETE:12/31/19 15:38 05837 Reason(s): Chest Pain Shortness of Breath PORTABLE CHEST X-RAY: HISTORY: Chest pain. COMPARISON: None. FINDINGS: Normal heart size and pulmonary vessels. Clear lungs. No pleural effusions. No acute or focal osseous abnormal. IMPRESSION: No active disease is seen in the chest. 3 Clinical Report - Physicians/Mid Levels [facility] Emergency Department [address] [place] [address] Phone #: ext- [phone] 12/31/2019 15:23 Patient: SARMAD HERNANDEZ Sex: F : 1950 Age: 69y Electronically Reviewed and Signed By JÚNIOR SIGNDATE, APM Transcribe Initials: HAZEL , Transcribe Date: 12/31/19 17:35, Dictation Date: <<REPDIST>> Page 1of 1Urinalysis: (POONAM: 12/31/2019 16:05) ( [facility] [place]/31/[place] 16:31) Final results Test Result Flag Units (Reference) URINALYSIS URINALYSIS SOURCE Clean Catch COLOR yellow (NORMAL: Yello CLARITY clear (NORMAL: Clear SPEC GRAVITY 1.010 (1.001 - 1.030 pH 6.5 (5 - 9) GLUCOSE 250 A (NORMAL: Negat BILIRUBIN NEG (NORMAL: Negat KETONE NEG (NORMAL: Negat PROTEIN NEG (NORMAL: Negat NITRITE NEG (NORMAL: Negat BLOOD NEG (NORMAL: Negat LEUK EST 25 (NORMAL: Negat UROBILINOGEN NOR (less than 1.0 MICROSCOPIC See Below WBC 1 - 3 (NORMAL: NONE EPITHELIAL FEW (NORMAL: NONEBNP: (POONAM: 12/31/2019 15:35) ( [facility] [place] 16:27) Final results Test Result Flag Units (Reference) BNP 144 H PG/ML (0 - 125)CBC w Diff: (POONAM: 12/31/2019 15:35) ( [facility] [place]31/[place] 16:13) Final results Test Result Flag Units (Reference) CBC W/AUTOMATED DIFF COMPLETE BL OOD COUNT WBC 6.5 10/uL (4.2 - 11.0) RBC 4.15 L 10/uL (4.20 - 5.40) HEMOGLOBIN 10.1 L g/dL (12.0 - 16.0) HEMATOCRIT 33.3 L % (37.0 - 47.0) MCV 80.2 L fL (81.0 - 101) MCH 24.3 L pg (27.0 - 34.0) MCHC 30.3 L g/dL (31.0 - 36.0) RDW 17.0 H % (11.5 - 14.5) PLATELETS 328 10/uL (150 - 450) MPV 10.2 fL (7.4 - 10.4) NEUT 60.0 % (37.0 - 80.0) LYMPH 28.0 % (25.0 - 40.0) 4 Clinical Report - Physicians/Mid Levels [facility] Emergency Department [address] [place] [address] Phone #: ext- [phone] 12/31/2019 15:23 Patient: SARMAD HERNANDEZ Sex: F : 1950 Age: 69y MONO 7.4 % (3.0 - 8.0) EOS 3.9 % (0.0 - 7.0) BASO 0.5 % (0.0 - 2.5) %IG 0.2 H % (0.0 - 0.0) %NRBC 0.0 % (0.0 - 0.0) #NEUT 3.88 10/uL (2.00 - 6.90) #LYMPH 1.81 10/uL (0.60 - 3.40) #MONO 0.48 10/uL (0.00 - 0.90) #EOS 0.25 10/uL (0.00 - 0.70) #BASO 0.03 10/uL (0.00 - 0.20) #IG 0.01 10/uL (0.00 - 0.10) #NRBC 0.00 10/uL (0.00 - 0.00) MANUAL DIFF NOT INDICATED RBC MORPH NOT INDICATEDCMP: (POONAM: 12/31/2019 15:35) ( MsgRcvd 12/31/2019 16:32) Final results Test Result Flag Units (Reference) COMPREHENSIVE METABOLIC PANEL COMPREHENSIVE METABOLIC PANEL SODIUM 140 mEq/L (134 - 153) POTASSIUM 4.6 mEq/L (3.6 - 5.0) CHLORIDE 104 mEq/L (98 - 107) CO2 29 MEQ/L (22 - 30) GLUCOSE 143 H MG/DL (65 - 110) BUN 21 MG/DL (7 - 21) CREATININE 0.9 MG/DL (0.7 - 1.5) BUN/CREAT 23 (8 - 27) TOTAL PROTEIN 6.4 G/DL (6.3 - 8.2) ALBUMIN 4.2 G/DL (3.9 - 5.0) GLOBULIN 2.2 L GM/DL (2.4 - 3.2) A/G RATIO 1.9 (0.8 - 2.0) CALCIUM 9.2 MG/DL (8.4 - 10.2) TOTAL BILI <0.7 MG/DL (0.2 - 1.3) ALKALINE PHOS 88 U/L (38 - 126) SGOT/AST 17 U/L (5 - 40) SGPT/ALT 12 U/L (7 - 56) ANION GAP 7.0 L mmol/L (8.0 - 16.0) AGE 69 yrs NON-AA GFR >60 mL/min AFR AMER GFR >60 Male GFR Interprentation 20-49 yrs >60 mL/min Jmeght57-01 yrs >56 mL/min Normal 60-69 yrs >49 mL/min Normal 70-79yrs>42 mL/min Normal 80 and above >35 mL/min Normal Female GFRInterpretation 20-39 yrs >60 mL/min Normal 40-49 yrs >58 mL/minNormal 50-59 yrs >51 mL/min Normal 60-69 yrs >45 mL/min Bmjedj22-75 yrs >39 mL/min Normal 80 and above >32 mL/min NormalD-Dimer: (POONAM: 12/31/2019 15:35) ( MsgRcvd 12/31/2019 16:13) Final results Test Result Flag Units (Reference) D-DIMER QUANT <0.27 ug/mL (0.27 - 0.50)Troponin-T: (POONAM: 12/31/2019 15:35) ( MsgRcvd 12/31/2019 16:20) Final results Test Result Flag Units (Reference) TROPONIN T <0.01 NG/ML (0.00 - 0.10) TROPONIN T0.1 ng/ml Recommended as the clinical threshold value forTroponin T. 5 Clinical Report - Physicians/Mid Levels [facility] Emergency Department [address] [place] [address] Phone #: ext- [phone] 12/31/2019 15:23 Patient: SARMAD HERNANDEZ Sex: F : 1950 Age: 69y . Note - Tests: (CXR - Unremarkable EKG - NSR, Low voltage QRS, old septal infarct).PROGRESS AND PROCEDURESCourse of Care: 16:54 Dec 31 2019. Patient is stable. Symptoms better. 16:54 Dec 31 2019. Wheezing much better. CXR is unremarkable. No evidence of cardiac ischemia. 18:02 Dec 31 2019. 2nd set of nebs. given recently. Pt. better. CXR read as unremarkable. No cough. No fever. D-dimer and troponin are NL. Discharging home. Critical care performed (130 minutes). Time is exclusive of separately billable procedures. Time includes: direct patient care, patient reassessment, interpretation of data (laboratory data, pulse oximetry and chest xrays), review of patient's medical records and documentation of patient care- see progress notes. Procedures included in critical care time: peripheral IV placement and phlebotomy- see progress notes. Disposition: Discharged home in good and improved condition (18:07 Dec 31 2019). Condition: good.CLINICAL IMPRESSION Acute bronchospasm (Mild).INSTRUCTIONS Avoid stimulants (such as cigarettes, coffee, cold medicines, sinus medicines, street drugs). Do not smoke. Warnings: Further evaluation is necessary. GENERAL WARNINGS: Return or contact your physician immediately if your condition worsens or changes unexpectedly, if not improving as expected, or if other problems arise. Prescription Medications: albuterol sulfate HFA 90 mcg/actuation aerosol inhaler Inhale 2 puff every six hours as needed for 10 days -- for wheezes / SOB . Dispense 1 inhaler. Refills: 1. Substitution permitted. Pharmacy - [id number] - [address] [place] [address]. . Prednisone 10mg Taper sig: take 6 tabs PO each day for 2 days, then Take 5 tabs PO each day for 2 days, then Take 4 tabs PO each day for 2 days, then Take 3 tabs PO each day for 2 days, then 6 Clinical Report - Physicians/Mid Levels [facility] Emergency Department [address] [place] [address] Phone #: ext- [phone] 12/31/2019 15:23 Patient: SARMAD HERNANDEZ Sex: F : 1950 Age: 69y Take 2 tabs PO each day for 2 days, then Take 1 tab PO each day for 2 days. Disp# 42. Follow-up: Follow up with your doctor tomorrow if not better. Call for an appointment. Reason for referral: evaluation, treatment and Asthma / Bronchospasm / Wheezing. Understanding of the discharge instructions verbalized by patient.(Electronically signed by Michael Bruner, Physician 12/31/2019 18:45) Name Value Range Interpretation Code Description Data Leona rce(s) Supporting Document(s) ID Date Data Source [id number] 12/31/2019 04:05:00 PM EST [facility] ([facility] Name Value Range Interpretation Code Description Data Leona rce(s) Supporting Document(s) Urinalysis Laboratory test result [facility] ([facility] SOURCE: Clean Catch Clarity Laboratory test result [facility] ([facility] SOURCE: Clean Catch Source Laboratory test result [facility] SOURCE: Clean Catch Color Laboratory test result [facility] SOURCE: Clean Catch Glucose 250 Abnormal (applies to non-numeric res ults) [facility] ([facility] SOURCE: Clean Catch pH 6.5 5-9 [facility] ([facility] SOURCE: Clean Catch Spec [place] 1.010 1.001-1.030 [facility] SOURCE: Clean Catch Ketone Laboratory test result [facility] SOURCE: Clean Catch Protein Laboratory test result [facility] SOURCE: Clean Catch Bilirubin Laboratory test result [facility] ([facility] SOURCE: Clean Catch Nitrite Laboratory test result [facility] ([facility] SOURCE: Clean Catch Blood Laboratory test result [facility] ([facility] SOURCE: Clean Catch Leuk Est 25 [facility] ([facility] SOURCE: Clean Catch Urobilinogen Laboratory test result [facility] ([facility] SOURCE: Clean Catch Microscopic Laboratory test result [facility] ([facility] SOURCE: Clean Catch WBC Laboratory test result [facility] ([facility] SOURCE: Clean Catch Epithelial Laboratory test result [facility] ([facility] SOURCE: Clean Catch ID Date Data Source [id number] 12/31/2019 04:31:00 PM EST [facility] Name Value Range Interpretation Code Description Data [facility] rce(s) Supporting Document(s) UR[facility]ALYSIS [facility] URINALYSIS SOURCE Clean Catch [facility] COLOR yellow NORMAL: Yellow [facility] CLARITY clear NORMAL: Clear [facility] Specific gravity of Urine by Test strip 1.010 1.001 - 1.030 [facility] pH 6.5 5 - 9 [facility] Glucose [Mass/volume] in Urine by Test strip 250 NORMAL: Negat mario A [facility] Bilirubin.total [Presence] in Urine by Test strip NEG NORMAL: Negative [facility] Ketones [Presence] in Urine by Test strip NEG NORMAL: Negative [facility] Protein [Mass/volume] in Urine by Test strip NEG NORMAL: Negat mario [facility] Nitrite [Presence] in Urine by Test strip NEG NORMAL: Negative [facility] BLOOD NEG NORMAL: Negative [facility] Leukocyte esterase [Presence] in Urine by Test strip 25 ROSELIA L: Negative [facility] Urobilinogen [Mass/volume] in Urine by Test strip NOR less olivia n 1.0 mg/dL [facility] MICROSCOPIC See Below [facility] ital WBC 1 - 3 NORMAL: NONE SEEN [facility] EPITHELIAL FEW NORMAL: NONE SEEN [facility] ID Date Data Source [id number] 12/31/2019 03:35:00 PM EST [facility] ([facility] Name Value Range Interpretation Code Description Data Leona rce(s) Supporting Document(s) [facility] Laboratory test result [facility] ([facility] COMPREHENSIVE METABOLIC PANEL Sodium 140 meq/L 134-153 [facility] Potassium 4.6 meq/L 3.6-5.0 [facility] Glucose 143 mg/dL 65-110 Above high normal [facility] ([facility] Co2 29 meq/L 22-30 [facility] [facility] Chloride 104 meq/L 98-107 [facility] BUN/Creat 23 8-27 [facility] ([facility] Creatinine 0.9 mg/dL 0.7-1.5 [facility] ([facility] BUN 21 mg/dL 7-21 [facility] ([facility] Albumin 4.2 g/dL 3.9-5.0 [facility] ([facility] Globulin 2.2 GM/DL 2.4-3.2 Below low normal [facility] ( [facility] Total Protein 6.4 g/dL 6.3-8.2 [facility] ([facility] A/G Ratio 1.9 0.8-2.0 [facility] ([facility] Total Bili Laboratory test result 0.2-1.3 ME DENT ([facility] Calcium 9.2 mg/dL 8.4-10.2 [facility] ([facility] Sgot/Ast 17 U/L 5-40 [facility] ([facility] Alkaline Phos 88 U/L 38-126 [facility] ([facility] Anion Gap 7.0 mmol/L 8.0-16.0 Below low normal [facility] ( [facility] SGPT/Alt 12 U/L 7-56 [facility] Non-Aa GFR Laboratory test result ME DENT ([facility] Afr Amer GFR Laboratory test result [facility] ([facility] Male GFR Interprentation 20-49 yrs >60 mL/min Normal 50-59 yrs >56 mL/min Normal 60-69 yrs >49 mL/min Normal 70-79yrs >42 mL/min Normal 80 and above >35 mL/min Normal Female GFR Interpretation 20-39 yrs >60 mL/min Normal 40-49 yrs >58 mL/min Normal 50-59 yrs >51 mL/min Normal 60-69 yrs >45 mL/min Normal 70-79 yrs >39 mL/min Normal 80 and above >32 mL/min Normal Age 69 yrs [facility] ([facility] ID Date Data Source [id number] 12/31/2019 03:35:00 PM EST [facility] ([facility] Name Value Range Interpretation Code Description Data Leona rce(s) Supporting Document(s) Troponin T.cardiac [Mass/volume] in Serum or Plasma Laborato ry test result 0.00-0.10 [facility] ([facility] TROPONIN T 0.1 ng/ml Recommended as the clinical th reshold value for Troponin T. Natriuretic peptide.B prohormone N-Terminal [Mass/volu me] in Serum or Plasma 144 pg/mL 0-125 Above high normal [facility] ([facility] ID Date Data Source [id number] 12/31/2019 03:35:00 PM EST [facility] ([facility] Name Value Range Interpretation Code Description Data Leona rce(s) Supporting Document(s) CBC W/Automated Diff Laboratory test result [facility] ([facility] COMPLETE BLOOD COUNT RBC 4.15 10^6/uL 4.20-5.40 Below low normal [facility] ([facility] WBC 6.5 10^3/uL 4.2-11.0 [facility] ([facility] Hemoglobin 10.1 g/dL 12.0-16.0 Below low normal [facility] ( [facility] MCV 80.2 fL 81.0-101 Below low normal [facility] ( [facility] Hematocrit 33.3 % 37.0-47.0 Below low normal [facility] ( [facility] MCH 24.3 pg 27.0-34.0 Below low normal [facility] ( [facility] Platelets 328 10^3/uL 150-450 [facility] ([facility] MCHC 30.3 g/dL 31.0-36.0 Below low normal [facility] ( [facility] MPV 10.2 fL 7.4-10.4 [facility] ([facility] RDW 17.0 % 11.5-14.5 Above high normal [facility] ([facility] Lymph 28.0 % 25.0-40.0 [facility] ([facility] [place] 7.4 % 3.0-8.0 [facility] ([facility] Neut 60.0 % 37.0-80.0 [facility] ([facility] %NRBC 0.0 % 0.0-0.0 [facility] ([facility] %Ig 0.2 % 0.0-0.0 Above high normal [facility] ([facility] Baso 0.5 % 0.0-2.5 [facility] ([facility] Eos 3.9 % 0.0-7.0 [facility] ([facility] #Lymph 1.81 10^3/uL 0.60-3.40 [facility] ([facility] #Neut 3.88 10^3/uL 2.00-6.90 [facility] ([facility] #[place] 0.48 10^3/uL 0.00-0.90 [facility] ([facility] #NRBC 0.00 10^3/uL 0.00-0.00 [facility] ([facility] #Baso 0.03 10^3/uL 0.00-0.20 [facility] ([facility] #Eos 0.25 10^3/uL 0.00-0.70 [facility] ([facility] #Ig 0.01 10^3/uL 0.00-0.10 [facility] ([facility] Manual Diff Laboratory test result M EDRADHA ([facility] RBC Morph Laboratory test result ME D[facility] ([facility] ID Date Data Source [id number] 12/31/2019 03:35:00 PM EST [facility] ([facility] Name Value Range Interpretation Code Description Data Leona rce(s) Supporting Document(s) Fibrin D-dimer [Presence] in Platelet poor plasma Laboratory test result 0.27-0.50 [facility] ([facility] ID Date Data Source [id number] 12/31/2019 04:31:00 PM EST [facility] Name Value Range Interpretation Code Description Data Leona rce(s) Supporting Document(s) COMPREHENSIVE METABOLIC PANEL [facility] COMPREHENSIVE METABOLIC PANEL Sodium [Moles/volume] in Serum or Plasma 140 mEq/L 134 - 153 [facility] Potassium [Moles/volume] in Serum or Plasma 4.6 mEq/L 3.6 - 5.0 [facility] Chloride [Moles/volume] in Serum or Plasma 104 mEq/L 98 - 107 [facility] Carbon dioxide, total [Moles/volume] in Serum or Plasma 29 MEQ/L 22 - 30 [facility] Glucose [Mass/volume] in Serum or Plasma 143 MG/DL 65 - 110 H [facility] BUN 21 MG/DL 7 - 21 [facility] al Creatinine [Mass/volume] in Serum or Plasma 0.9 MG/DL 0.7 - 1.5 [facility] BUN/CREAT 23 8 - 27 [facility] Protein [Mass/volume] in Serum or Plasma 6.4 G/DL 6.3 - 8.2 [facility] Albumin [Mass/volume] in Serum or Plasma 4.2 G/DL 3.9 - 5.0 [facility] Globulin [Mass/volume] in Serum by calculation 2.2 GM/DL 2.4 - 3.2 L [facility] A/G RATIO 1.9 0.8 - 2.0 [facility] Calcium [Mass/volume] in Serum or Plasma 9.2 MG/DL 8.4 - 10.2 [facility] Bilirubin.total [Mass/volume] in Serum or Plasma <0.7 MG/DL 0.2 - 1.3 [facility] Alkaline phosphatase [Enzymatic activity/volume] in Serum or Plasma 88 U/L 38 - 126 [facility] Aspartate aminotransferase [Enzymatic activity/volume] in Serum or Plasma 17 U/L 5 - 40 [facility] Alanine aminotransferase [Enzymatic activity/volume] in Seru m or Plasma 12 U/L 7 - 56 [facility] Anion gap 3 in Serum or Plasma 7.0 mmol/L 8.0 - 16.0 L [facility] 69 [facility]60 [facility]/min [facility] AFR AMER GFR >60 [facility] Male GFR In terprentation 20-49 yrs >60 mL/min Normal 50-59 yrs >56 mL/min Normal 60-69 yrs >49 mL/min Normal 70-79yrs >42 mL/min Normal 80 and above >35 mL/min Normal Female GFR Interpretation 20-39 yrs >60 mL/min Normal 40-49 yrs >58 mL/min Normal 50-59 yrs >51 mL/min Normal 60-69 yrs >45 mL/min Normal 70-79 yrs >39 mL/min Normal 80 and above >32 mL/min Normal ID Date Data Source [id number] 12/31/2019 04:26:00 PM [facility] Name Value Range Interpretation Code Description Data Leona rce(s) Supporting Document(s) BNP 144 PG/ML 0 - 125 H [facility] ID Date Data Source [id number] 12/31/2019 04:20:00 PM [facility] Name Value Range Interpretation Code Description Data Leona rce(s) Supporting Document(s) TROPONIN T <0.01 NG/ML 0.00 - 0.10 [facility] TROPONIN T0.1 ng/ml Recommended as the c linical threshold value forTroponin T. ID Date Data Source [id number] 12/31/2019 04:13:00 PM [facility] Name Value Range Interpretation Code Description Data Leona rce(s) Supporting Document(s) CBC W/AUTOMATED DIFF [facility] COMPLETE BLOOD COUNT Leukocytes [#/volume] in Blood by Automated count 6.5 10^3/uL 4.2 - 1 1.0 [facility] Erythrocytes [#/volume] in Blood by Automated count 4.15 10^6/uL 4. 20 - 5.40 L [facility] Hemoglobin [Mass/volume] in Blood 10.1 g/dL 12.0 - 16.0 L [facility] Hematocrit [Volume Fraction] of Blood by Automated count 33.3 % 3 7.0 - 47.0 L [facility] Erythrocyte mean corpuscular volume [Entitic volume] by Auto mated count 80.2 fL 81.0 - 101 L [facility] Erythrocyte mean corpuscular hemoglobin [Entitic mass] by Automated count 24.3 pg 27.0 - 34.0 L [facility] Erythrocyte mean corpuscular hemoglobin concentration [Mass/volume] by Automated count 30.3 g/dL 31.0 - 36.0 L [facility] Erythrocyte distribution width [Ratio] by Automated count 17.0 % 11.5 - 14.5 H [facility] Platelets [#/volume] in Blood by Automated count 328 10^3/uL 150 - 45 0 [facility] Platelet mean volume [Entitic volume] in Blood by Automated count 10.2 fL 7.4 - 10.4 [facility] Neutrophils/100 leukocytes in Blood by Automated count 60.0 % 37. 0 - 80.0 [facility] Lymphocytes/100 leukocytes in Blood by Manual count 28.0 % 25.0 - 40.0 [facility] Monocytes/100 leukocytes in Blood by Automated count 7.4 % 3.0 - 8.0 [facility] Eosinophils/100 leukocytes in Blood by Automated count 3.9 % 0.0 - 7.0 [facility] Basophils/100 leukocytes in Blood by Automated count 0.5 % 0.0 - 2.5 [facility] %IG 0.2 % 0.0 - 0.0 [facility] %[facility] 0.0 % 0.0 - 0.0 [facility] al Neutrophils [#/volume] in Blood by Automated count 3.88 10^3/uL 2.00 - 6.90 [facility] Lymphocytes [#/volume] in Blood by Automated count 1.81 10^3/uL 0.60 - 3.40 [facility] Monocytes [#/volume] in Blood by Automated count 0.48 10^3/uL 0.00 - 0.90 [facility] Eosinophils [#/volume] in Blood by Automated count 0.25 10^3/uL 0.00 - 0.70 [facility] Basophils [#/volume] in Blood by Automated count 0.03 10^3/uL 0.00 - 0.20 [facility] #IG 0.01 10^3/uL 0.00 - 0.10 [facility] #NRBC 0.00 10^3/uL 0.00 - 0.00 [facility] MANUAL DIFF NOT INDICATED [facility] RBC MORPH NOT INDICATED [facility] ID Date Data Source [id number] 12/31/2019 04:12:00 PM EST [facility] Name Value Range Interpretation Code Description Data Leona rce(s) Supporting Document(s) Fibrin D-dimer FEU [Mass/volume] in Platelet poor plasma <0. 27 ug/mL 0.27 - 0.50 [facility] ID Date Data Source [id number] 12/28/2019 04:34:00 PM EST [facility] ([facility] Name Value Range Interpretation Code Description Data Leona rce(s) Supporting Document(s) Jules Fernando virus capsid IgM Ab [Presence] in Serum Laborat ory test result 0.0-35.9 Normal (applies to non-numeric results) [facility] ([facility] <content>Negative <36.0</content>
<content>Equivocal 36.0 - 43.9</content>
<content>Positive >43.9</content>
<content>Performed at: RN - [facility]</content>
<content>[address] [place] [address] [phone]</content>
<content>Log Preparer: Virginie Acevedo MD, Phone: [phone]</content>
<content></content> ID Date Data Source [id number] 12/28/2019 04:34:00 PM EST [facility] ([facility] Name Value Range Interpretation Code Description Data Leona rce(s) Supporting Document(s) Blood Urea Nitrogen 22 mg/dL 7-18 Above high normal [facility] ([facility] Creatinine For GFR 0.86 mg/dL 0.55-1.30 Normal (applies to non -numeric results) [facility] ([facility] Glucose, Fasting 63 mg/dL 70-100 Below low normal [facility] ([facility] Potassium Serum 4.0 meq/L 3.5-5.1 Normal (applies to non-numeric results) [facility] ([facility] Glomerular Filtration Rate Laboratory test result Normal (applies to non- numeric results) [facility] ([facility] ) <content>Units are mL/min/1.73 m2</content>
<content></content>
<content>Chronic Kidney Disease Staging per NKF:</content>
<content></content>
<content>Stage I & II GFR >=60 Normal to Mildly Decreased</content>
<content>Stage III GFR 30- 59 Moderately Decreased</content>
<content>Stage IV GFR 15-29 Severely Decreased</content>
<content>Stage V GFR <15 Very Little GFR Left</content>
<content>ESRD GFR <15 on [employer]INTER [employer] SIGN</content>
<content></content> Sodium Level 139 meq/L 136-145 Normal (applies to non-numeric res ults) [facility] ([facility] Carbon Dioxide Level 28 meq/L 21-32 Normal (applies to non-num ana rosa results) [facility] ([facility] Chloride Level 105 meq/L 98-107 Normal (applies to non-numeric r esults) [facility] ([facility] Anion Gap 6 meq/L 8-16 Below low normal [facility] ( [facility] Calcium Level 9.6 mg/dL 8.8-10.2 Normal (applies to non-numeric re sults) [facility] ([facility] Alt/SGPT 17 U/L 12-78 Normal (applies to non-numeric resul ts) [facility] ([facility] Ast/Sgot 16 U/L 7-37 Normal (applies to non-numeric resul ts) [facility] ([facility] Bilirubin,Total 0.2 mg/dL 0.2-1.0 Normal (applies to non-numeric results) [facility] ([facility] Alkaline Phosphatase 88 U/L 45-117 Normal (applies to non-num ana rosa results) [facility] ([facility] Total Protein 6.6 GM/DL 6.4-8.2 Normal (applies to non-numeric re sults) [facility] ([facility] Albumin/Globulin Ratio 1.2 1.2-2.2 Normal (applies to non-n umeric results) [facility] ([facility] Albumin 3.6 GM/DL 3.2-5.2 Normal (applies to non-numeric resul ts) [facility] ([facility] ID Date Data Source [id number] 12/28/2019 04:34:00 PM EST [facility] ([facility] Name Value Range Interpretation Code Description Data Leona rce(s) Supporting Document(s) Hemoglobin 10.5 g/dL 12.0-15.5 Below low normal [facility] ( [facility] Red Blood Count 4.32 10 4.00-5.40 Normal (applies to non-numeric results) [facility] ([facility] White Blood Count 8.7 10 4.0-10.0 Normal (applies to non-numeri c results) [facility] ([facility] Hematocrit 35.1 % 36.0-47.0 Below low normal [facility] ( [facility] Mean Corpuscular Volume 81.3 fl 80.0-96.0 Normal ( applies to non-numeric results) [facility] ([facility] ) Mean Corpuscular HGB Conc 29.9 g/dL 32.0-36.5 Below low normal [facility] ([facility] Red Cell Distribution Width 16.7 % 11.5-14.5 Above high normal [facility] ([facility] Mean Corpuscular Hemoglobin 24.3 pg 27.0-33.0 Below low normal [facility] ([facility] Lymph % 19.4 % 24.0-44.0 Below low normal [facility] ( [facility] Neutrophils % 71.8 % 36.0-66.0 Above high normal MED[facility] NT ([facility] Platelet Count, Automated 344 10 150-450 Normal (applies to non-numeric results) [facility] ([facility] [place] % 6.7 % 0.0-5.0 Above high normal [facility] ([facility] Eos % 1.6 % 0.0-3.0 Normal (applies to non-numeric resul ts) [facility] ([facility] Baso % 0.3 % 0.0-1.0 Normal (applies to non-numeric resul ts) [facility] ([facility] Immature Granulocyte % 0.2 % 0-3.0 Normal (applies to non-n umeric results) [facility] ([facility] Nucleated Red Blood Cell % 0.0 % 0-0 Normal (applies to n on-numeric results) [facility] ([facility] Neutrophils # 6.2 10 1.5-8.5 Normal (applies to non-numeric re sults) [facility] ([facility] Lymph # 1.7 10 1.5-5.0 Normal (applies to non-numeric resul ts) [facility] ([facility] [place] # 0.6 10 0.0-0.8 Normal (applies to non-numeric resul ts) [facility] ([facility] Eos # 0.1 10 0.0-0.5 Normal (applies to non-numeric resul ts) [facility] ([facility] Baso # 0.0 10 0.0-0.2 Normal (applies to non-numeric resul ts) [facility] ([facility] ID Date Data Source [id number] 12/28/2019 02:51:00 PM EST [facility] ([facility] Name Value Range Interpretation Code Description Data Leona rce(s) Supporting Document(s) Color Urine Laboratory test result M EDENT ([facility] Appearance of Urine Laboratory test result [facility] ([facility] Specific [place] 1.020 1.00-1.03 [facility] ([facility] PH Urine 6.5 5.0-8.0 [facility] ([facility] Glucose Urine Laboratory test result [facility] ([facility] Bilirubin.total [Presence] in Urine by Test strip Laboratory test res ult [facility] ([facility] Blood Urine Laboratory test result M EDENT ([facility] Ketones Laboratory test result [facility] ([facility] Protein Urine Laboratory test result [facility] ([facility] Nitrite Laboratory test result [facility] ([facility] Urobilinogen 0.2 EU/dl 0.2-1.0 [facility] ([facility] Leukocytes Laboratory test result ME DENT ([facility] ID Date Data Source [id number] 12/28/2019 02:50:00 PM EST [facility] ([facility] Name Value Range Interpretation Code Description Data Leona rce(s) Supporting Document(s) Urine Culture, Routine Laboratory test result [facility] ([facility] SRC:URINE Bacteria identified in Urine by Culture Laboratory test result [facility] ([facility] SRC:URINE ID Date Data Source [id number] 12/28/2019 01:37:00 PM EST [facility] ([facility] Name Value Range Interpretation Code Description Data Leona rce(s) Supporting Document(s) Glucometer[facility] 82 mg/dL 65-109 [facility] ([facility] ID Date Data Source [id number] 11/06/2019 11:41:00 AM EDT [facility] ([facility] Name Value Range Interpretation Code Description Data Leona rce(s) Supporting Document(s) A/C Ratio Laboratory test result ME DENT ([facility] Creatinine, Urine 10 mg/dL 10-300 [facility] ([facility] Alb 10 mg/L 1-30 [facility] ID Date Data Source [id number] 11/06/2019 11:40:00 AM EDT [facility] ([facility] Name Value Range Interpretation Code Description Data Leona rce(s) Supporting Document(s) Chol 136 mg/dL 0-200 [facility] ([facility] NORMAL RANGES Age WBC RBC HGB HCT [...] HCT IS 5% LESS SOURCE FOR DATA: [facility] 1800 OPERATION MANUAL( AUTOMATED BLOOD COUNTS AND [...] DESIRABLE: <130 MG/DL <110 MG/DL BORDERLINE-HIGH RISK: 130- 159 MG/DL 110-129 MG/DL HIGH RISK: >160 MG/DL >130 MG/DL *CHILDREN AND ADOLESCENTS REPRESENTS INDIVIDUALA AGED 2-19 YEARS EXCLUSIVE. LDL_C 52 Calc 75-129 Below low normal [facility] NORMAL RANGES Age WBC RBC HGB HCT [...] HCT IS 5% LESS SOURCE FOR DATA: [facility] 1800 OPERATION MANUAL( AUTOMATED BLOOD COUNTS AND [...] DESIRABLE: <130 MG/DL <110 MG/DL BORDERLINE-HIGH RISK: 130- 159 MG/DL 110-129 MG/DL HIGH RISK: >160 MG/DL >130 MG/DL *CHILDREN AND ADOLESCENTS REPRESENTS INDIVIDUALA AGED 2-19 YEARS EXCLUSIVE. Cholesterol in HDL [Mass/volume] in Serum or Plasma 62 mg/dL 45-65 [facility] ([facility] NORMAL RANGES Age WBC RBC HGB HCT [...] HCT IS 5% LESS SOURCE FOR DATA: [facility] 1800 OPERATION MANUAL( AUTOMATED BLOOD COUNTS AND [...] DESIRABLE: <130 MG/DL <110 MG/DL BORDERLINE-HIGH RISK: 130- 159 MG/DL 110-129 MG/DL HIGH RISK: >160 MG/DL >130 MG/DL *CHILDREN AND ADOLESCENTS REPRESENTS INDIVIDUALA AGED 2-19 YEARS EXCLUSIVE. Trig 109 mg/dL 40-200 [facility] NORMAL RANGES Age WBC RBC HGB HCT [...] HCT IS 5% LESS SOURCE FOR DATA: [facility] 1800 OPERATION MANUAL( AUTOMATED BLOOD COUNTS AND [...] DESIRABLE: <130 MG/DL <110 MG/DL BORDERLINE-HIGH RISK: 130- 159 MG/DL 110-129 MG/DL HIGH RISK: >160 MG/DL >130 MG/DL *CHILDREN AND ADOLESCENTS REPRESENTS INDIVIDUALA AGED 2-19 YEARS EXCLUSIVE. Cho/HDL Ratio 2.2 CALC beModel ([facility] NORMAL RANGES Age WBC RBC HGB HCT [...] HCT IS 5% LESS SOURCE FOR DATA: [facility] 1800 OPERATION MANUAL( AUTOMATED BLOOD COUNTS AND [...] DESIRABLE: <130 MG/DL <110 MG/DL BORDERLINE-HIGH RISK: 130- 159 MG/DL 110-129 MG/DL HIGH RISK: >160 MG/DL >130 MG/DL *CHILDREN AND ADOLESCENTS REPRESENTS INDIVIDUALA AGED 2-19 YEARS EXCLUSIVE. ID Date Data Source [id number] 11/06/2019 11:40:00 AM EDT [facility] ([facility] Name Value Range Interpretation Code Description Data Leona rce(s) Supporting Document(s) WBC 5.5 10E3/uL 4.1-10.9 [facility] NORMAL RANGES Age WBC RBC HGB HCT [...] HCT IS 5% LESS SOURCE FOR DATA: [facility] 1800 OPERATION MANUAL( AUTOMATED BLOOD COUNTS AND [...] DESIRABLE: <130 MG/DL <110 MG/DL BORDERLINE-HIGH RISK: 130- 159 MG/DL 110-129 MG/DL HIGH RISK: >160 MG/DL >130 MG/DL *CHILDREN AND ADOLESCENTS REPRESENTS INDIVIDUALA AGED 2-19 YEARS EXCLUSIVE. RBC 4.23 10E6/uL 4.20-6.30 [facility] NORMAL RANGES Age WBC RBC HGB HCT [...] HCT IS 5% LESS SOURCE FOR DATA: [facility] 1800 OPERATION MANUAL( AUTOMATED BLOOD COUNTS AND [...] DESIRABLE: <130 MG/DL <110 MG/DL BORDERLINE-HIGH RISK: 130- 159 MG/DL 110-129 MG/DL HIGH RISK: >160 MG/DL >130 MG/DL *CHILDREN AND ADOLESCENTS REPRESENTS INDIVIDUALA AGED 2-19 YEARS EXCLUSIVE. HGB 10.5 g/dL 12.0-18.0 Below low normal [facility] ( [facility] NORMAL RANGES Age WBC RBC HGB HCT [...] HCT IS 5% LESS SOURCE FOR DATA: [facility] 1800 OPERATION MANUAL( AUTOMATED BLOOD COUNTS AND [...] DESIRABLE: <130 MG/DL <110 MG/DL BORDERLINE-HIGH RISK: 130- 159 MG/DL 110-129 MG/DL HIGH RISK: >160 MG/DL >130 MG/DL *CHILDREN AND ADOLESCENTS REPRESENTS INDIVIDUALA AGED 2-19 YEARS EXCLUSIVE. HCT 35.2 % 37.0-51.0 Below low normal [facility] ( [facility] NORMAL RANGES Age WBC RBC HGB HCT [...] HCT IS 5% LESS SOURCE FOR DATA: [facility] 1800 OPERATION MANUAL( AUTOMATED BLOOD COUNTS AND [...] DESIRABLE: <130 MG/DL <110 MG/DL BORDERLINE-HIGH RISK: 130- 159 MG/DL 110-129 MG/DL HIGH RISK: >160 MG/DL >130 MG/DL *CHILDREN AND ADOLESCENTS REPRESENTS INDIVIDUALA AGED 2-19 YEARS EXCLUSIVE. MCV 83.2 fL 80.0-97.0 [facility] ([facility] NORMAL RANGES Age WBC RBC HGB HCT [...] HCT IS 5% LESS SOURCE FOR DATA: [place] [facility] 1800 OPERATION MANUAL( AUTOMATED BLOOD COUNTS AND [...] DESIRABLE: <130 MG/DL <110 MG/DL BORDERLINE-HIGH RISK: 130- 159 MG/DL 110-129 MG/DL HIGH RISK: >160 MG/DL >130 MG/DL *CHILDREN AND ADOLESCENTS REPRESENTS INDIVIDUALA AGED 2-19 YEARS EXCLUSIVE. MCHC 29.8 g/dL 31.0-36.0 Below low normal [facility] ( [facility] NORMAL RANGES Age WBC RBC HGB HCT [...] HCT IS 5% LESS SOURCE FOR DATA: [facility] 1800 OPERATION MANUAL( AUTOMATED BLOOD COUNTS AND [...] DESIRABLE: <130 MG/DL <110 MG/DL BORDERLINE-HIGH RISK: 130- 159 MG/DL 110-129 MG/DL HIGH RISK: >160 MG/DL >130 MG/DL *CHILDREN AND ADOLESCENTS REPRESENTS INDIVIDUALA AGED 2-19 YEARS EXCLUSIVE. MCH 24.8 pg 26.0-32.0 Below low normal [facility] ( [facility] NORMAL RANGES Age WBC RBC HGB HCT [...] HCT IS 5% LESS SOURCE FOR DATA: [facility] 1800 OPERATION MANUAL( AUTOMATED BLOOD COUNTS AND [...] DESIRABLE: <130 MG/DL <110 MG/DL BORDERLINE-HIGH RISK: 130- 159 MG/DL 110-129 MG/DL HIGH RISK: >160 MG/DL >130 MG/DL *CHILDREN AND ADOLESCENTS REPRESENTS INDIVIDUALA AGED 2-19 YEARS EXCLUSIVE. PLT 297 10E3/uL 140-440 [facility] NORMAL RANGES Age WBC RBC HGB HCT [...] HCT IS 5% LESS SOURCE FOR DATA: [facility] 1800 OPERATION MANUAL( AUTOMATED BLOOD COUNTS AND [...] DESIRABLE: <130 MG/DL <110 MG/DL BORDERLINE-HIGH RISK: 130- 159 MG/DL 110-129 MG/DL HIGH RISK: >160 MG/DL >130 MG/DL *CHILDREN AND ADOLESCENTS REPRESENTS INDIVIDUALA AGED 2-19 YEARS EXCLUSIVE. Lym% 35.5 % 10.0-58.5 [facility] ([facility] NORMAL RANGES Age WBC RBC HGB HCT [...] HCT IS 5% LESS SOURCE FOR DATA: [facility] 1800 OPERATION MANUAL( AUTOMATED BLOOD COUNTS AND [...] DESIRABLE: <130 MG/DL <110 MG/DL BORDERLINE-HIGH RISK: 130- 159 MG/DL 110-129 MG/DL HIGH RISK: >160 MG/DL >130 MG/DL *CHILDREN AND ADOLESCENTS REPRESENTS INDIVIDUALA AGED 2-19 YEARS EXCLUSIVE. RDW-CV 15.6 % 11.5-14.5 Above high normal [facility] ([facility] NORMAL RANGES Age WBC RBC HGB HCT [...] HCT IS 5% LESS SOURCE FOR DATA: [facility] 1800 OPERATION MANUAL( AUTOMATED BLOOD COUNTS AND [...] DESIRABLE: <130 MG/DL <110 MG/DL BORDERLINE-HIGH RISK: 130- 159 MG/DL 110-129 MG/DL HIGH RISK: >160 MG/DL >130 MG/DL *CHILDREN AND ADOLESCENTS REPRESENTS INDIVIDUALA AGED 2-19 YEARS EXCLUSIVE. MXD% 7.7 % 0.1-24.0 [facility] ([facility] NORMAL RANGES Age WBC RBC HGB HCT [...] HCT IS 5% LESS SOURCE FOR DATA: [facility] 1800 OPERATION MANUAL( AUTOMATED BLOOD COUNTS AND [...] DESIRABLE: <130 MG/DL <110 MG/DL BORDERLINE-HIGH RISK: 130- 159 MG/DL 110-129 MG/DL HIGH RISK: >160 MG/DL >130 MG/DL *CHILDREN AND ADOLESCENTS REPRESENTS INDIVIDUALA AGED 2-19 YEARS EXCLUSIVE. Lym# 2.0 10E3/uL 0.6-4.1 [facility] ([facility] NORMAL RANGES Age WBC RBC HGB HCT [...] HCT IS 5% LESS SOURCE FOR DATA: [facility] 1800 OPERATION MANUAL( AUTOMATED BLOOD COUNTS AND [...] DESIRABLE: <130 MG/DL <110 MG/DL BORDERLINE-HIGH RISK: 130- 159 MG/DL 110-129 MG/DL HIGH RISK: >160 MG/DL >130 MG/DL *CHILDREN AND ADOLESCENTS REPRESENTS INDIVIDUALA AGED 2-19 YEARS EXCLUSIVE. Neut% 56.8 % 37.0-92.0 [facility] ([facility] NORMAL RANGES Age WBC RBC HGB HCT [...] HCT IS 5% LESS SOURCE FOR DATA: [facility] 1800 OPERATION MANUAL( AUTOMATED BLOOD COUNTS AND [...] DESIRABLE: <130 MG/DL <110 MG/DL BORDERLINE-HIGH RISK: 130- 159 MG/DL 110-129 MG/DL HIGH RISK: >160 MG/DL >130 MG/DL *CHILDREN AND ADOLESCENTS REPRESENTS INDIVIDUALA AGED 2-19 YEARS EXCLUSIVE. MPV 11.2 fL 9.0-13.0 [facility] ([facility] NORMAL RANGES Age WBC RBC HGB HCT [...] HCT IS 5% LESS SOURCE FOR DATA: [facility] 1800 OPERATION MANUAL( AUTOMATED BLOOD COUNTS AND [...] DESIRABLE: <130 MG/DL <110 MG/DL BORDERLINE-HIGH RISK: 130- 159 MG/DL 110-129 MG/DL HIGH RISK: >160 MG/DL >130 MG/DL *CHILDREN AND ADOLESCENTS REPRESENTS INDIVIDUALA AGED 2-19 YEARS EXCLUSIVE. MXD# 0.4 10E3/uL 0.0-1.8 [facility] ([facility] NORMAL RANGES Age WBC RBC HGB HCT [...] HCT IS 5% LESS SOURCE FOR DATA: [facility] 1800 OPERATION MANUAL( AUTOMATED BLOOD COUNTS AND [...] DESIRABLE: <130 MG/DL <110 MG/DL BORDERLINE-HIGH RISK: 130- 159 MG/DL 110-129 MG/DL HIGH RISK: >160 MG/DL >130 MG/DL *CHILDREN AND ADOLESCENTS REPRESENTS INDIVIDUALA AGED 2-19 YEARS EXCLUSIVE. Neut# 3.1 % 2.0-7.8 [facility] NORMAL RANGES Age WBC RBC HGB HCT [...] HCT IS 5% LESS SOURCE FOR DATA: [facility] 1800 OPERATION MANUAL( AUTOMATED BLOOD COUNTS AND [...] DESIRABLE: <130 MG/DL <110 MG/DL BORDERLINE-HIGH RISK: 130- 159 MG/DL 110-129 MG/DL HIGH RISK: >160 MG/DL >130 MG/DL *CHILDREN AND ADOLESCENTS REPRESENTS INDIVIDUALA AGED 2-19 YEARS EXCLUSIVE. ID Date Data Source [id number] 11/06/2019 11:40:00 AM EDT [facility] ([facility] Name Value Range Interpretation Code Description Data Leona rce(s) Supporting Document(s) BUN 18 mg/dL 8-23 [facility] ([facility] NORMAL RANGES Age WBC RBC HGB HCT [...] HCT IS 5% LESS SOURCE FOR DATA: [facility] 1800 OPERATION MANUAL( AUTOMATED BLOOD COUNTS AND [...] DESIRABLE: <130 MG/DL <110 MG/DL BORDERLINE-HIGH RISK: 130- 159 MG/DL 110-129 MG/DL HIGH RISK: >160 MG/DL >130 MG/DL *CHILDREN AND ADOLESCENTS REPRESENTS INDIVIDUALA AGED 2-19 YEARS EXCLUSIVE. Creat 0.9 mg/dL 0.5-1.0 [facility] ([facility] NORMAL RANGES Age WBC RBC HGB HCT [...] HCT IS 5% LESS SOURCE FOR DATA: [facility] 1800 OPERATION MANUAL( AUTOMATED BLOOD COUNTS AND [...] DESIRABLE: <130 MG/DL <110 MG/DL BORDERLINE-HIGH RISK: 130- 159 MG/DL 110-129 MG/DL HIGH RISK: >160 MG/DL >130 MG/DL *CHILDREN AND ADOLESCENTS REPRESENTS INDIVIDUALA AGED 2-19 YEARS EXCLUSIVE. Glu 311 mg/dL 70-110 Above high normal [facility] ([facility] NORMAL RANGES Age WBC RBC HGB HCT [...] HCT IS 5% LESS SOURCE FOR DATA: [facility] 1800 OPERATION MANUAL( AUTOMATED BLOOD COUNTS AND [...] DESIRABLE: <130 MG/DL <110 MG/DL BORDERLINE-HIGH RISK: 130- 159 MG/DL 110-129 MG/DL HIGH RISK: >160 MG/DL >130 MG/DL *CHILDREN AND ADOLESCENTS REPRESENTS INDIVIDUALA AGED 2-19 YEARS EXCLUSIVE. BUN/Creatinine Ratio 21.4 CALC [facility] ([facility] NORMAL RANGES Age WBC RBC HGB HCT [...] HCT IS 5% LESS SOURCE FOR DATA: [facility] 1800 OPERATION MANUAL( AUTOMATED BLOOD COUNTS AND [...] DESIRABLE: <130 MG/DL <110 MG/DL BORDERLINE-HIGH RISK: 130- 159 MG/DL 110-129 MG/DL HIGH RISK: >160 MG/DL >130 MG/DL *CHILDREN AND ADOLESCENTS REPRESENTS INDIVIDUALA AGED 2-19 YEARS EXCLUSIVE. K 4.2 mmol/L 3.5-5.1 [facility] ([facility] NORMAL RANGES Age WBC RBC HGB HCT [...] HCT IS 5% LESS SOURCE FOR DATA: [facility] 1800 OPERATION MANUAL( AUTOMATED BLOOD COUNTS AND [...] DESIRABLE: <130 MG/DL <110 MG/DL BORDERLINE-HIGH RISK: 130- 159 MG/DL 110-129 MG/DL HIGH RISK: >160 MG/DL >130 MG/DL *CHILDREN AND ADOLESCENTS REPRESENTS INDIVIDUALA AGED 2-19 YEARS EXCLUSIVE. Na 136 mmol/L 136-145 [facility] ([facility] NORMAL RANGES Age WBC RBC HGB HCT [...] HCT IS 5% LESS SOURCE FOR DATA: [facility] 1800 OPERATION MANUAL( AUTOMATED BLOOD COUNTS AND [...] DESIRABLE: <130 MG/DL <110 MG/DL BORDERLINE-HIGH RISK: 130- 159 MG/DL 110-129 MG/DL HIGH RISK: >160 MG/DL >130 MG/DL *CHILDREN AND ADOLESCENTS REPRESENTS INDIVIDUALA AGED 2-19 YEARS EXCLUSIVE. CL 96.7 mmol/L 98.0-107.0 Below low normal [facility] ([facility] NORMAL RANGES Age WBC RBC HGB HCT [...] HCT IS 5% LESS SOURCE FOR DATA: [facility] 1800 OPERATION MANUAL( AUTOMATED BLOOD COUNTS AND [...] DESIRABLE: <130 MG/DL <110 MG/DL BORDERLINE-HIGH RISK: 130- 159 MG/DL 110-129 MG/DL HIGH RISK: >160 MG/DL >130 MG/DL *CHILDREN AND ADOLESCENTS REPRESENTS INDIVIDUALA AGED 2-19 YEARS EXCLUSIVE. CA 9.5 mg/dL 8.6-10.2 [facility] ([facility] NORMAL RANGES Age WBC RBC HGB HCT [...] HCT IS 5% LESS SOURCE FOR DATA: [facility] 1800 OPERATION MANUAL( AUTOMATED BLOOD COUNTS AND [...] DESIRABLE: <130 MG/DL <110 MG/DL BORDERLINE-HIGH RISK: 130- 159 MG/DL 110-129 MG/DL HIGH RISK: >160 MG/DL >130 MG/DL *CHILDREN AND ADOLESCENTS REPRESENTS INDIVIDUALA AGED 2-19 YEARS EXCLUSIVE. Co2 25.3 mmol/L 22.0-29.0 [facility] ([facility] NORMAL RANGES Age WBC RBC HGB HCT [...] HCT IS 5% LESS SOURCE FOR DATA: [facility] 1800 OPERATION MANUAL( AUTOMATED BLOOD COUNTS AND [...] DESIRABLE: <130 MG/DL <110 MG/DL BORDERLINE-HIGH RISK: 130- 159 MG/DL 110-129 MG/DL HIGH RISK: >160 MG/DL >130 MG/DL *CHILDREN AND ADOLESCENTS REPRESENTS INDIVIDUALA AGED 2-19 YEARS EXCLUSIVE. A/G Ratio 2.2 CALC [facility] ([facility] NORMAL RANGES Age WBC RBC HGB HCT [...] HCT IS 5% LESS SOURCE FOR DATA: [facility] 1800 OPERATION MANUAL( AUTOMATED BLOOD COUNTS AND [...] DESIRABLE: <130 MG/DL <110 MG/DL BORDERLINE-HIGH RISK: 130- 159 MG/DL 110-129 MG/DL HIGH RISK: >160 MG/DL >130 MG/DL *CHILDREN AND ADOLESCENTS REPRESENTS INDIVIDUALA AGED 2-19 YEARS EXCLUSIVE. TP 6.1 g/dL 6.6-8.7 Below low normal [facility] ( [facility] NORMAL RANGES Age WBC RBC HGB HCT [...] HCT IS 5% LESS SOURCE FOR DATA: [facility] 1800 OPERATION MANUAL( AUTOMATED BLOOD COUNTS AND [...] DESIRABLE: <130 MG/DL <110 MG/DL BORDERLINE-HIGH RISK: 130- 159 MG/DL 110-129 MG/DL HIGH RISK: >160 MG/DL >130 MG/DL *CHILDREN AND ADOLESCENTS REPRESENTS INDIVIDUALA AGED 2-19 YEARS EXCLUSIVE. Alb 4.2 g/dL 3.4-4.8 [facility] ([facility] NORMAL RANGES Age WBC RBC HGB HCT [...] HCT IS 5% LESS SOURCE FOR DATA: [facility] 1800 OPERATION MANUAL( AUTOMATED BLOOD COUNTS AND [...] DESIRABLE: <130 MG/DL <110 MG/DL BORDERLINE-HIGH RISK: 130- 159 MG/DL 110-129 MG/DL HIGH RISK: >160 MG/DL >130 MG/DL *CHILDREN AND ADOLESCENTS REPRESENTS INDIVIDUALA AGED 2-19 YEARS EXCLUSIVE. Alt (SGPT) 9 U/L 0-41 [facility] ([facility] NORMAL RANGES Age WBC RBC HGB HCT [...] HCT IS 5% LESS SOURCE FOR DATA: [facility] 1800 OPERATION MANUAL( AUTOMATED BLOOD COUNTS AND [...] DESIRABLE: <130 MG/DL <110 MG/DL BORDERLINE-HIGH RISK: 130- 159 MG/DL 110-129 MG/DL HIGH RISK: >160 MG/DL >130 MG/DL *CHILDREN AND ADOLESCENTS REPRESENTS INDIVIDUALA AGED 2-19 YEARS EXCLUSIVE. Alp 95.1 U/L 35-129 [facility] NORMAL RANGES Age WBC RBC HGB HCT [...] HCT IS 5% LESS SOURCE FOR DATA: [facility] 1800 OPERATION MANUAL( AUTOMATED BLOOD COUNTS AND [...] DESIRABLE: <130 MG/DL <110 MG/DL BORDERLINE-HIGH RISK: 130- 159 MG/DL 110-129 MG/DL HIGH RISK: >160 MG/DL >130 MG/DL *CHILDREN AND ADOLESCENTS REPRESENTS INDIVIDUALA AGED 2-19 YEARS EXCLUSIVE. Globulin 1.9 CALC [facility] ([facility] NORMAL RANGES Age WBC RBC HGB HCT [...] HCT IS 5% LESS SOURCE FOR DATA: [facility] 1800 OPERATION MANUAL( AUTOMATED BLOOD COUNTS AND [...] DESIRABLE: <130 MG/DL <110 MG/DL BORDERLINE-HIGH RISK: 130- 159 MG/DL 110-129 MG/DL HIGH RISK: >160 MG/DL >130 MG/DL *CHILDREN AND ADOLESCENTS REPRESENTS INDIVIDUALA AGED 2-19 YEARS EXCLUSIVE. Tbili 0.08 mg/dL 0.0-1.2 [facility] ([facility] NORMAL RANGES Age WBC RBC HGB HCT [...] HCT IS 5% LESS SOURCE FOR DATA: [facility] 1800 OPERATION MANUAL( AUTOMATED BLOOD COUNTS AND [...] DESIRABLE: <130 MG/DL <110 MG/DL BORDERLINE-HIGH RISK: 130- 159 MG/DL 110-129 MG/DL HIGH RISK: >160 MG/DL >130 MG/DL *CHILDREN AND ADOLESCENTS REPRESENTS INDIVIDUALA AGED 2-19 YEARS EXCLUSIVE. Ast (Sgot) 15 U/L 0-40 [facility] ([facility] NORMAL RANGES Age WBC RBC HGB HCT [...] HCT IS 5% LESS SOURCE FOR DATA: [facility] 1800 OPERATION MANUAL( AUTOMATED BLOOD COUNTS AND [...] DESIRABLE: <130 MG/DL <110 MG/DL BORDERLINE-HIGH RISK: 130- 159 MG/DL 110-129 MG/DL HIGH RISK: >160 MG/DL >130 MG/DL *CHILDREN AND ADOLESCENTS REPRESENTS INDIVIDUALA AGED 2-19 YEARS EXCLUSIVE. Anion Gap 18 mmol/L [facility] ([facility] NORMAL RANGES Age WBC RBC HGB HCT [...] HCT IS 5% LESS SOURCE FOR DATA: [facility] 1800 OPERATION MANUAL( AUTOMATED BLOOD COUNTS AND [...] DESIRABLE: <130 MG/DL <110 MG/DL BORDERLINE-HIGH RISK: 130- 159 MG/DL 110-129 MG/DL HIGH RISK: >160 MG/DL >130 MG/DL *CHILDREN AND ADOLESCENTS REPRESENTS INDIVIDUALA AGED 2-19 YEARS EXCLUSIVE. eGFR 76 # [facility] ( [facility] NORMAL RANGES Age WBC RBC HGB HCT [...] HCT IS 5% LESS SOURCE FOR DATA: [facility] 1800 OPERATION MANUAL( AUTOMATED BLOOD COUNTS AND [...] DESIRABLE: <130 MG/DL <110 MG/DL BORDERLINE-HIGH RISK: 130- 159 MG/DL 110-129 MG/DL HIGH RISK: >160 MG/DL >130 MG/DL *CHILDREN AND ADOLESCENTS REPRESENTS INDIVIDUALA AGED 2-19 YEARS EXCLUSIVE. Osmolality-Calculated 285.2 [facility] ([facility] NORMAL RANGES Age WBC RBC HGB HCT [...] HCT IS 5% LESS SOURCE FOR DATA: [facility] 1800 OPERATION MANUAL( AUTOMATED BLOOD COUNTS AND [...] DESIRABLE: <130 MG/DL <110 MG/DL BORDERLINE-HIGH RISK: 130- 159 MG/DL 110-129 MG/DL HIGH RISK: >160 MG/DL >130 MG/DL *CHILDREN AND ADOLESCENTS REPRESENTS INDIVIDUALA AGED 2-19 YEARS EXCLUSIVE. eGFR Non-Afr. Faroese 65 # [facility] ([facility] NORMAL RANGES Age WBC RBC HGB HCT [...] HCT IS 5% LESS SOURCE FOR DATA: [facility] 1800 OPERATION MANUAL( AUTOMATED BLOOD COUNTS AND [...] DESIRABLE: <130 MG/DL <110 MG/DL BORDERLINE-HIGH RISK: 130- 159 MG/DL 110-129 MG/DL HIGH RISK: >160 MG/DL >130 MG/DL *CHILDREN AND ADOLESCENTS REPRESENTS INDIVIDUALA AGED 2-19 YEARS EXCLUSIVE. ID Date Data Source [id number] 11/06/2019 11:40:00 AM EDT [facility] ([facility] Name Value Range Interpretation Code Description Data Leona rce(s) Supporting Document(s) Hemoglobin A1c/Hemoglobin.total in Blood 8.0 % 4.8-5.6 Above high normal [facility] ([facility] <content>Prediabetes: 5.7 - 6.4</content >
<content>Diabetes: >6.4</content>
<content>Glycemic control for adults with diabetes: <7.0</content>
<content></content> ID Date Data Source [id number] 11/06/2019 11:40:00 AM EDT [facility] ([facility] Name Value Range Interpretation Code Description Data Leona rce(s) Supporting Document(s) Hemoglobin A1c/Hemoglobin.total in Blood Laboratory test result [facility] ([facility] ID Date Data Source [id number] 09/15/2019 01:11:00 PM EDT [facility] ([facility] Name Value Range Interpretation Code Description Data Leona rce(s) Supporting Document(s) Urea nitrogen [Mass/volume] in Serum or Plasma 20 mg/dL 7-18 Above high normal [facility] ([facility] ID Date Data Source [id number] 09/15/2019 01:11:00 PM EDT [facility] ([facility] Name Value Range Interpretation Code Description Data Leona rce(s) Supporting Document(s) Creatinine For GFR 0.93 mg/dL 0.55-1.30 Normal (applies to non -numeric results) [facility] ([facility] Glomerular Filtration Rate Laboratory test result Normal (applies to non- numeric results) [facility] ([facility] ) <content>Units are mL/min/1.73 m2</content>
<content></content>
<content>Chronic Kidney Disease Staging per NKF:</content>
<content></content>
<content>Stage I & II GFR >=60 Normal to Mildly Decreased</content>
<content>Stage III GFR 30- 59 Moderately Decreased</content>
<content>Stage IV GFR 15-29 Severely Decreased</content>
<content>Stage V GFR <15 Very Little GFR Left</content>
<content>ESRD GFR <15 on PAINTER HELPER SIGN</content>
<content></content> ID Date Data Source [id number] 09/15/2019 01:11:00 PM EDT [facility] ([facility] Name Value Range Interpretation Code Description Data Leona rce(s) Supporting Document(s) White Blood Count 5.2 10 4.0-10.0 Normal (applies to non-numeri c results) [facility] ([facility] Red Blood Count 4.05 10 4.00-5.40 Normal (applies to non-numeric results) [facility] ([facility] Hemoglobin 10.3 g/dL 12.0-15.5 Below low normal [facility] ( [facility] Mean Corpuscular HGB Conc 30.3 g/dL 32.0-36.5 Below low normal [facility] ([facility] Mean Corpuscular Volume 84.0 fl 80.0-96.0 Normal ( applies to non-numeric results) [facility] ([facility] Hematocrit 34.0 % 36.0-47.0 Below low normal [facility] ( [facility] Mean Corpuscular Hemoglobin 25.4 pg 27.0-33.0 Below low normal [facility] ([facility] Platelet Count, Automated 290 10 150-450 Normal (applies to non-numeric results) [facility] ([facility] Neutrophils % 52.0 % 36.0-66.0 Normal (applies to non-numeric re sults) [facility] ([facility] Red Cell Distribution Width 16.2 % 11.5-14.5 Above high normal [facility] ([facility] Eos % 2.9 % 0.0-3.0 Normal (applies to non-numeric resul ts) [facility] ([facility] Lymph % 36.2 % 24.0-44.0 Normal (applies to non-numeric resul ts) [facility] ([facility] [place] % 7.9 % 0.0-5.0 Above high normal [facility] ([facility] Baso % 0.6 % 0.0-1.0 Normal (applies to non-numeric resul ts) [facility] ([facility] Immature Granulocyte % 0.4 % 0-3.0 Normal (applies to non-n umeric results) [facility] ([facility] Nucleated Red Blood Cell % 0.0 % 0-0 Normal (applies to n on-numeric results) [facility] ([facility] Neutrophils # 2.7 10 1.5-8.5 Normal (applies to non-numeric re sults) [facility] ([facility] Eos # 0.2 10 0.0-0.5 Normal (applies to non-numeric resul ts) [facility] ([facility] Lymph # 1.9 10 1.5-5.0 Normal (applies to non-numeric resul ts) [facility] ([facility] [place] # 0.4 10 0.0-0.8 Normal (applies to non-numeric resul ts) [facility] ([facility] Baso # 0.0 10 0.0-0.2 Normal (applies to non-numeric resul ts) [facility] ([facility] ID Date Data Source [id number] 09/15/2019 01:11:00 PM EDT [facility] ([facility] Name Value Range Interpretation Code Description Data Leona rce(s) Supporting Document(s) Total Iron Binding Capacity 486 ug/dL 250-450 Above high normal [facility] ([facility] Percent Saturation 6.2 % 13.2-45.0 Below low normal [facility] ([facility] Iron (Fe) 30 ug/dL 50-170 Below low normal [facility] ( [facility] ID Date Data Source [id number] 09/15/2019 01:11:00 PM EDT [facility] ([facility] Name Value Range Interpretation Code Description Data Leona rce(s) Supporting Document(s) Folate [Mass/volume] in Serum or Plasma 11.9 ng/mL Normal (applies to non- numeric results) [facility] ([facility] FOLATE NORMAL RANGE NORMAL GREATER THAN 5.4 NG/ML INDETERMINATE 3.4-5.4 NG/ML DEFICIENT LESS THAN 3.4 NG/ML Cobalamin (Vitamin B12) [Mass/volume] in Serum or Plasma 379 pg/ mL 247-911 Normal (applies to non-numeric results) [facility] VITAMIN B12 NORMAL RANGE NORMAL 247 - 911 PG/ML INDETERMINATE 211 - 246 PG/ML DEFICIENT LESS THAN 211 PG/ML Ferritin [Mass/volume] in Serum or Plasma 7 ng/mL 8-252 Below low normal [facility] ID Date Data Source [id number] 09/15/2019 01:11:00 PM EDT [facility] ([facility]) Name Value Range Interpretation Code Description Data Leona rce(s) Supporting Document(s) Cobalamin (Vitamin B12) [Mass/volume] in Serum or Plasma 379 pg/ mL 247-911 Normal (applies to non-numeric results) [facility] ([facility]) VITAMIN B12 NORMAL RANGE NORMAL 247 - 911 PG/ML INDETERMINATE 211 - 246 PG/ML DEFICIENT LESS THAN 211 PG/ML Folate [Mass/volume] in Serum or Plasma 11.9 ng/mL Normal (applies to non- numeric results) [facility] ([facility]) FOLATE NORMAL RANGE NORMAL GREATER THAN 5.4 NG/ML INDETERMINATE 3.4-5.4 NG/ML DEFICIENT LESS THAN 3.4 NG/ML ID Date Data Source [id number] 09/15/2019 01:11:00 PM EDT [facility] ([facility]) Name Value Range Interpretation Code Description Data Leona rce(s) Supporting Document(s) Glomerular Filtration Rate Laboratory test result Normal (applies to non- numeric results) [facility]) <content>Units are mL/min/1.73 m2</content>
<content></content>
<content>Chronic Kidney Disease Staging per NKF:</content>
<content></content>
<content>Stage I & II GFR >=60 Normal to Mildly Decreased</content>
<content>Stage III GFR 30- 59 Moderately Decreased</content>
<content>Stage IV GFR 15-29 Severely Decreased</content>
<content>Stage V GFR <15 Very Little GFR Left</content>
<content>ESRD GFR <15 on PAINTER HELPER SIGN</content>
<content></content> Creatinine For GFR 0.93 mg/dL 0.55-1.30 Normal (applies to non -numeric results) [facility] ID Date Data Source [id number] 09/15/2019 01:11:00 PM EDT [facility] ([facility]) Name Value Range Interpretation Code Description Data Leona rce(s) Supporting Document(s) Urea nitrogen [Mass/volume] in Serum or Plasma 20 mg/dL 7-18 Above high normal [facility] ([facility]) ID Date Data Source [id number] 09/15/2019 01:11:00 PM EDT [facility] ([facility]) Name Value Range Interpretation Code Description Data Leona rce(s) Supporting Document(s) Intrinsic factor blocking Ab [Units/volume] in Serum Laboratory rene t result [facility] ([facility]) Parietal cell Ab [Units/volume] in Serum Laboratory test result [facility] ([facility]) ID Date Data Source [id number] 09/15/2019 01:11:00 PM EDT [facility] ([facility]) Name Value Range Interpretation Code Description Data Leona rce(s) Supporting Document(s) Ferritin [Mass/volume] in Serum or Plasma 7 ng/mL 8-252 Below low normal [facility] ([facility]) ID Date Data Source [id number] 09/15/2019 01:11:00 PM EDT [facility] ([facility]) Name Value Range Interpretation Code Description Data Leona rce(s) Supporting Document(s) Total Iron Binding Capacity 486 ug/dL 250-450 Above high normal [facility] ([facility]) Iron (Fe) 30 ug/dL 50-170 Below low normal [facility] ( [facility]) Percent Saturation 6.2 % 13.2-45.0 Below low normal [facility] ([facility]) ID Date Data Source [id number] 09/15/2019 01:11:00 PM EDT [facility] ([facility]) Name Value Range Interpretation Code Description Data Leona rce(s) Supporting Document(s) White Blood Count 5.2 10 4.0-10.0 Normal (applies to non-numeri c results) [facility] ([facility]) Red Blood Count 4.05 10 4.00-5.40 Normal (applies to non-numeric results) [facility] [facility] Hemoglobin 10.3 g/dL 12.0-15.5 Below low normal [facility] ( [facility]) Hematocrit 34.0 % 36.0-47.0 Below low normal [facility] ( [facility]) Mean Corpuscular Volume 84.0 fl 80.0-96.0 Normal ( applies to non-numeric results) [facility] ([facility]) Mean Corpuscular Hemoglobin 25.4 pg 27.0-33.0 Below low normal [facility] ([facility]) Platelet Count, Automated 290 10 150-450 Normal (applies to non-numeric results) [facility] ([facility]) Red Cell Distribution Width 16.2 % 11.5-14.5 Above high normal [facility] ([facility]) Mean Corpuscular HGB Conc 30.3 g/dL 32.0-36.5 Below low normal [facility] ([facility]) [place] % 7.9 % 0.0-5.0 Above high normal [facility]) Neutrophils % 52.0 % 36.0-66.0 Normal (applies to non-numeric re sults) [facility] Lymph % 36.2 % 24.0-44.0 Normal (applies to non-numeric resul ts) [facility]) Eos % 2.9 % 0.0-3.0 Normal (applies to non-numeric resul ts) [facility]) Baso % 0.6 % 0.0-1.0 Normal (applies to non-numeric resul ts) [facility] ([facility]) Immature Granulocyte % 0.4 % 0-3.0 Normal (applies to non-n umeric results) [facility]) Nucleated Red Blood Cell % 0.0 % 0-0 Normal (applies to n on-numeric results) [facility] ([facility]) Neutrophils # 2.7 10 1.5-8.5 Normal (applies to non-numeric re sults) [facility]) Lymph # 1.9 10 1.5-5.0 Normal (applies to non-numeric resul ts) [facility]) Eos # 0.2 10 0.0-0.5 Normal (applies to non-numeric resul ts) [facility]) Baso # 0.0 10 0.0-0.2 Normal (applies to non-numeric resul ts) [facility] ([facility]) [place] # 0.4 10 0.0-0.8 Normal (applies to non-numeric resul ts) [facility] ([facility]) ID Date Data Source [id number] 08/31/2019 12:29:00 AM EDT [facility] ([facility] Name Value Range Interpretation Code Description Data Leona rce(s) Supporting Document(s) Color, Urine RFX Laboratory test result Normal ( applies to non-numeric results) [facility] ([facility] ) Appearance, Urine RFX Laboratory test result Nor mal (applies to non-numeric results) [facility] ([facility] ) PH,Urine RFX 5.0 units 5.0-9.0 Normal (applies to non-numeric res ults) [facility] ([facility] Protein, Urine Auto RFX Laboratory test result N ormal (applies to non-numeric results) [facility] Specific [place] Ur Auto RFX 1.009 1.002-1.035 Nor mal (applies to non-numeric results) [facility] ([facility] ) Ketone, Urine Auto RFX Laboratory test result No rmal (applies to non-numeric results) [facility] ([facility] ) Glucose, Urine (Ua) Auto RFX Laboratory test result Above high normal [facility] ([facility] Nitrite, Urine Auto RFX Laboratory test result N ormal (applies to non-numeric results) [facility] ([facility] ) Bilirubin, Urine Auto RFX Laboratory test result Normal (applies to non- numeric results) [facility] ([facility] ) Urobilinogen, Urine Auto RFX 0.2 mg/dL 0.0-2.0 Nor mal (applies to non-numeric results) [facility] ([facility] ) Blood, Urine Blood RFX Laboratory test result No rmal (applies to non-numeric results) [facility] ([facility] ) Leukocyte Esterase Ur Auto RFX Laboratory test result Normal (applies to non- numeric results) [facility] ([facility] ) WBC, Urine Auto RFX 1 /HPF 0-3 Normal (applies to non-nume samanhta results) [facility] ([facility] Squam Epithelial Cell Ur Aurfx 0 /HPF 0-6 N ormal (applies to non-numeric results) [facility] ([facility] ) RBC, Urine Auto RFX 1 /HPF 0-3 Normal (applies to non-nume samantha results) [facility] ([facility] Bacteria, Urine Auto RFX Laboratory test result Normal (applies to non-numeric results) [facility] ([facility] ) Hyaline Cast, Urine Auto RFX 0 /LPF 0-1 Normal (appl ies to non-numeric results) [facility] ([facility] ID Date Data Source [id number] 08/30/2019 10:06:00 PM EDT [facility] ([facility] Name Value Range Interpretation Code Description Data Leona rce(s) Supporting Document(s) Red Blood Count 4.37 10 4.00-5.40 Normal (applies to non-numeric results) [facility] ([facility] White Blood Count 9.4 10 4.0-10.0 Normal (applies to non-numeri c results) [facility] ([facility] Hemoglobin 11.1 g/dL 12.0-15.5 Below low normal [facility] ( [facility] Mean Corpuscular Volume 85.1 fl 80.0-96.0 Normal ( applies to non-numeric results) [facility] ([facility] ) Hematocrit 37.2 % 36.0-47.0 Normal (applies to non-numeric resul ts) [facility] ([facility] Mean Corpuscular HGB Conc 29.8 g/dL 32.0-36.5 Below low normal [facility] ([facility] Mean Corpuscular Hemoglobin 25.4 pg 27.0-33.0 Below low normal [facility] ([facility] Neutrophils % 76.4 % 36.0-66.0 Above high normal [facility] ([facility] Platelet Count, Automated 369 10 150-450 Normal (applies to non-numeric results) [facility] ([facility] ) Red Cell Distribution Width 16.2 % 11.5-14.5 Above high normal [facility] ([facility] Eos % 0.5 % 0.0-3.0 Normal (applies to non-numeric resul ts) [facility] ([facility] Lymph % 18.8 % 24.0-44.0 Below low normal [facility] ( [facility] [place] % 3.7 % 0.0-5.0 Normal (applies to non-numeric resul ts) [facility] ([facility] Nucleated Red Blood Cell % 0.0 % 0-0 Normal (applies to n on-numeric results) [facility] ([facility] Baso % 0.3 % 0.0-1.0 Normal (applies to non-numeric resul ts) [facility] ([facility] Immature Granulocyte % 0.3 % 0-3.0 Normal (applies to non-n umeric results) [facility] ([facility] [place] # 0.4 10 0.0-0.8 Normal (applies to non-numeric resul ts) [facility] ([facility] Neutrophils # 7.2 10 1.5-8.5 Normal (applies to non-numeric re sults) [facility] ([facility] Lymph # 1.8 10 1.5-5.0 Normal (applies to non-numeric resul ts) [facility] ([facility] Eos # 0.1 10 0.0-0.5 Normal (applies to non-numeric resul ts) [facility] ([facility] Baso # 0.0 10 0.0-0.2 Normal (applies to non-numeric resul ts) [facility] ID Date Data Source [id number] 08/30/2019 10:06:00 PM EDT [facility] ([facility] Name Value Range Interpretation Code Description Data Leona rce(s) Supporting Document(s) Prothrombin Time 12.8 s 11.8-14.0 Normal (applies to non-numeric results) [facility] ([facility] Inr 0.99 Normal (applies to non-numeric resul ts) [facility] THERAPUTIC HUMAN INR VALUES INDICATIONS NORMAL RANGES PROPHYLAXIS/TREATMENT OF: VENOUS THROMBOSIS 2.0-3.0 PULMONARY EMBOLISM 2.0-3.0 PREVENTION OF SYSTEMIC EMBOLISM FROM: TISSUE HEART VALVES 2.0-3.0 ACUTE MYOCARDIAL INFARCTION 2.0-3.0 VALVULAR HEART DISEASE 2.0-3.0 ATRIAL FIBRILLATION 2.0-3.0 MECHANICAL VALVES(HIGH RISK) 2.5-3.5 RECURRENT MYOCARDIAL INFARCTION 2.5-3.5 ID Date Data Source [id number] 08/30/2019 10:06:00 PM EDT [facility] ([facility] Name Value Range Interpretation Code Description Data Leona rce(s) Supporting Document(s) MB/CK Relative Index 0.89 Normal (applies to non-num ana rosa results) [facility] ([facility] <content>DIAGNOSIS CRITERIA</content>
<content>MMB ng/ml Relative Index (RI)</content>
<content>NON-AMI < or = 5 N/A</content>
<content>GIL ZONE > 5 < or = 4</content>
<content>AMI > 5 > 4</content>
<content></content> CK-MB Value Mass 1.7 ng/mL Normal (applies to non-numeric results) [facility] ([facility] CPK Creatine Phosphokinase 190 U/L 26-192 Roselia l (applies to non-numeric results) [facility] ([facility] ) Troponin I Laboratory test result Normal (applies to non-n umeric results) [facility] ([facility] <content>Troponin I Reference Interval f or Siemens Page LOCI:</content>
<content></content>
<content>99th Percentile= 0.00-0.045 ng/ml</content>
<content></content>
<content>Risk Stratification:</content>
<content><= 0.10 ng/ml Decreased Risk for Adverse Clinical</content>
<content>Events.</content>
<content>0.10-1.50 ng/ml Increased Risk for Adverse Clinical</content>
<content>Events. Evaluation of additional</content>
<content>criterion and/or repeat testing in 2-6</content>
<content>hours is suggested to rule out myocardial</content>
<content>damage.</content>
<content>>= 1.50 ng/ml Indicative of Myocardial Injury.</content>
<content></content> ID Date Data Source [id number] 08/30/2019 10:06:00 PM EDT [facility] ([facility] Name Value Range Interpretation Code Description Data Leona rce(s) Supporting Document(s) Alt/SGPT 28 U/L 12-78 Normal (applies to non-numeric resul ts) [facility] ([facility] Ast/Sgot 37 U/L 7-37 Normal (applies to non-numeric resul ts) [facility] ([facility] Alkaline Phosphatase 107 U/L 45-117 Normal (applies to non-num ana rosa results) [facility] ([facility] Bilirubin,Total 0.3 mg/dL 0.2-1.0 Normal (applies to non-numeric results) [facility] ([facility] Bilirubin,Direct Laboratory test result 0.0-0.2 Normal ( applies to non-numeric results) [facility] ([facility] ) Total Protein 7.3 GM/DL 6.4-8.2 Normal (applies to non-numeric re sults) [facility] ([facility] Albumin 3.6 GM/DL 3.2-5.2 Normal (applies to non-numeric resul ts) [facility] ([facility] Albumin/Globulin Ratio 1.0 1.2-2.2 Below low normal [facility] ([facility] ID Date Data Source [id number] 08/30/2019 10:06:00 PM EDT [facility] ([facility] Name Value Range Interpretation Code Description Data Leona rce(s) Supporting Document(s) Glucose, Fasting 164 mg/dL 70-100 Above high normal [facility] ([facility] Glomerular Filtration Rate 59.9 Normal (applies to n on-numeric results) [facility] ([facility] <content>Units are mL/min/1.73 m2</content>
<content></content>
<content>Chronic Kidney Disease Staging per NKF:</content>
<content></content>
<content>Stage I & II GFR >=60 Normal to Mildly Decreased</content>
<content>Stage III GFR 30- 59 Moderately Decreased</content>
<content>Stage IV GFR 15-29 Severely Decreased</content>
<content>Stage V GFR <15 Very Little GFR Left</content>
<content>ESRD GFR <15 on PAINTER HELPER SIGN</content>
<content></content> Creatinine For GFR 0.98 mg/dL 0.55-1.30 Normal (applies to non -numeric results) [facility] ([facility] Blood Urea Nitrogen 23 mg/dL 7-18 Above high normal [facility] ([facility] Potassium Serum 4.3 meq/L 3.5-5.1 Normal (applies to non-numeric results) [facility] ([facility] This specimen has an elevated potassium level but there is NO visible hemolysis noted. Sodium Level 137 meq/L 136-145 Normal (applies to non-numeric res ults) [facility] ([facility] Chloride Level 100 meq/L 98-107 Normal (applies to non-numeric r esults) [facility] Calcium Level 9.0 mg/dL 8.8-10.2 Normal (applies to non-numeric re sults) [facility] ([facility] Carbon Dioxide Level 29 meq/L 21-32 Normal (applies to non-num ana rosa results) [facility] ([facility] Anion Gap 8 meq/L 8-16 Normal (applies to non-numeric resul ts) [facility] ([facility] ID Date Data Source [id number] 08/30/2019 10:06:00 PM EDT [facility] ([facility] Name Value Range Interpretation Code Description Data Leona rce(s) Supporting Document(s) Lipoprotein lipase [Enzymatic activity/volume] in Serum or P lasma 258 U/L 73-393 Normal (applies to non-numeric results) [facility] ([facility] ID Date Data Source [id number] 08/30/2019 09:08:00 PM EDT [facility] ([facility] Name Value Range Interpretation Code Description Data Leona rce(s) Supporting Document(s) Glucose [Mass/volume] in Capillary blood by Glucometer 90 mg/dL 80-115 Normal (applies to non-numeric results) [facility] ID Date Data Source [id number] 07/28/2019 08:44:00 PM EDT [facility] ([facility] Name Value Range Interpretation Code Description Data Leona rce(s) Supporting Document(s) Laboratory test finding (navigational concept) 0.00 ng/mL 0 .00-0.08 Normal (applies to non-numeric results) [facility] ID Date Data Source [id number] 07/28/2019 08:44:00 PM EDT [facility] Name Value Range Interpretation Code Description Data Leona rce(s) Supporting Document(s) Troponin I.cardiac [Mass/volume] in Serum or Plasma Laboratory test result [facility] ([facility] Laboratory test finding (navigational concept) 0.00 ng/mL 0 .00-0.08 Normal (applies to non-numeric results) [facility] ([facility] ID Date Data Source [id number] 07/28/2019 05:18:00 PM EDT [facility] ([facility] Name Value Range Interpretation Code Description Data Leona rce(s) Supporting Document(s) Laboratory test finding (navigational concept) 35.0 % 3 8.0-51.0 Below low normal [facility] ([facility] ) Laboratory test finding (navigational concept) 257 mg/dL 7 0-105 Above high normal [facility] ([facility] ) Laboratory test finding (navigational concept) 137 meq/L 1 36-145 Normal (applies to non-numeric results) [facility] ([facility] Laboratory test finding (navigational concept) 4.1 meq/L 3 .5-5.1 Normal (applies to non-numeric results) [facility] ([facility] Laboratory test finding (navigational concept) 4.5 mg/dL 4 .5-5.3 Normal (applies to non-numeric results) [facility] ([facility] Laboratory test finding (navigational concept) 101 meq/L 9 8-109 Normal (applies to non-numeric results) [facility] ([facility] Laboratory test finding (navigational concept) 24.0 MM/L 2 3.0-27.0 Normal (applies to non-numeric results) [facility] Laboratory test finding (navigational concept) 0.9 mg/dL 0 .6-1.3 Normal (applies to non-numeric results) [facility] Laboratory test finding (navigational concept) 18 mg/dL 8 -26 Normal (applies to non-numeric results) [facility] ID Date Data Source [id number] 07/28/2019 05:16:00 PM EDT [facility] ([facility] Name Value Range Interpretation Code Description Data Leona rce(s) Supporting Document(s) Laboratory test finding (navigational concept) 0.00 ng/mL 0 .00-0.08 Normal (applies to non-numeric results) [facility] ID Date Data Source [id number] 07/28/2019 05:16:00 PM EDT [facility] ([facility] Name Value Range Interpretation Code Description Data Leona rce(s) Supporting Document(s) Troponin I.cardiac [Mass/volume] in Serum or Plasma Laboratory test result [facility] ([facility] Laboratory test finding (navigational concept) 0.00 ng/mL 0 .00-0.08 Normal (applies to non-numeric results) [facility] ID Date Data Source [id number] 07/28/2019 05:15:00 PM EDT [facility] ([facility] Name Value Range Interpretation Code Description Data Leona rce(s) Supporting Document(s) Lipoprotein lipase [Enzymatic activity/volume] in Serum or P lasma 240 U/L 73-393 Normal (applies to non-numeric results) [facility] ([facility] ID Date Data Source [id number] 07/28/2019 05:15:00 PM EDT [facility] ([facility] Name Value Range Interpretation Code Description Data Leona rce(s) Supporting Document(s) Ast/Sgot 12 U/L 7-37 Normal (applies to non-numeric resul ts) [facility] ([facility] Alkaline Phosphatase 89 U/L 45-117 Normal (applies to non-num ana rosa results) [facility] ([facility] Bilirubin,Total 0.3 mg/dL 0.2-1.0 Normal (applies to non-numeric results) [facility] ([facility] Alt/SGPT 17 U/L 12-78 Normal (applies to non-numeric resul ts) [facility] ([facility] Bilirubin,Direct Laboratory test result 0.0-0.2 Normal ( applies to non-numeric results) [facility] ([facility] ) Total Protein 6.3 GM/DL 6.4-8.2 Below low normal [facility] ([facility] Albumin 3.3 GM/DL 3.2-5.2 Normal (applies to non-numeric resul ts) [facility] ([facility] Albumin/Globulin Ratio 1.1 1.2-2.2 Below low normal [facility] ([facility] ID Date Data Source [id number] 07/28/2019 05:15:00 PM EDT [facility] ([facility] Name Value Range Interpretation Code Description Data Leona rce(s) Supporting Document(s) White Blood Count 6.3 10 4.0-10.0 Normal (applies to non-numeri c results) [facility] ([facility] Red Blood Count 4.14 10 4.00-5.40 Normal (applies to non-numeric results) [facility] ([facility] Mean Corpuscular Volume 84.1 fl 80.0-96.0 Normal ( applies to non-numeric results) [facility] ([facility] ) Hematocrit 34.8 % 36.0-47.0 Below low normal [facility] ( [facility] Hemoglobin 10.6 g/dL 12.0-15.5 Below low normal [facility] ( [facility] Mean Corpuscular Hemoglobin 25.6 pg 27.0-33.0 Below low normal [facility] ([facility] Red Cell Distribution Width 16.8 % 11.5-14.5 Above high normal [facility] ([facility] Mean Corpuscular HGB Conc 30.5 g/dL 32.0-36.5 Below low normal [facility] ([facility] Platelet Count, Automated 284 10 150-450 Normal (applies to non-numeric results) [facility] ([facility] ) Neutrophils % 56.8 % 36.0-66.0 Normal (applies to non-numeric re sults) [facility] ([facility] [place] % 9.0 % 0.0-5.0 Above high normal [facility] ([facility] Lymph % 31.2 % 24.0-44.0 Normal (applies to non-numeric resul ts) [facility] ([facility] Eos % 2.2 % 0.0-3.0 Normal (applies to non-numeric resul ts) [facility] ([facility] Immature Granulocyte % 0.2 % 0-3.0 Normal (applies to non-n umeric results) [facility] ([facility] Baso % 0.6 % 0.0-1.0 Normal (applies to non-numeric resul ts) [facility] ([facility] Nucleated Red Blood Cell % 0.0 % 0-0 Normal (applies to n on-numeric results) [facility] ([facility] Lymph # 2.0 10 1.5-5.0 Normal (applies to non-numeric resul ts) [facility] ([facility] Neutrophils # 3.6 10 1.5-8.5 Normal (applies to non-numeric re sults) [facility] ([facility] [place] # 0.6 10 0.0-0.8 Normal (applies to non-numeric resul ts) [facility] ([facility] Eos # 0.1 10 0.0-0.5 Normal (applies to non-numeric resul ts) [facility] ([facility] Baso # 0.0 10 0.0-0.2 Normal (applies to non-numeric resul ts) [facility] ([facility] ID Date Data Source [id number] 07/28/2019 10:36:00 AM EDT [facility] ([facility] Name Value Range Interpretation Code Description Data Leona rce(s) Supporting Document(s) Hemoglobin A1c/Hemoglobin.total in Blood 8.0 % 4.8-5.6 Above high normal [facility] ([facility] <content>Prediabetes: 5.7 - 6.4</content >
<content>Diabetes: >6.4</content>
<content>Glycemic control for adults with diabetes: <7.0</content>
<content></content> ID Date Data Source [id number] 07/28/2019 10:36:00 AM EDT [facility] ([facility] Name Value Range Interpretation Code Description Data Leona rce(s) Supporting Document(s) Triglyceride [Mass/volume] in Serum or Plasma 71 mg/dL 0-149 [facility] ([facility] Cholesterol in HDL [Mass/volume] in Serum or Plasma 65 mg/dL [facility] ([facility] Cholesterol [Mass/volume] in Serum or Plasma 135 mg/dL 100-199 [facility] ([facility] Cholesterol in LDL [Mass/volume] in Serum or Plasma by calcu lation 56 mg/dL 0-99 [facility] Cholesterol in VLDL [Mass/volume] in Serum or Plasma by calc ulation 14 mg/dL 5-40 [facility] Comment: Laboratory test result [facility] ([facility] ID Date Data Source [id number] 07/28/2019 10:36:00 AM EDT [facility] ([facility] Name Value Range Interpretation Code Description Data Leona rce(s) Supporting Document(s) BUN 20 mg/dL 8-27 [facility] Glucose [Mass/volume] in Serum or Plasma 205 mg/dL 65-99 Above high normal [facility] ([facility] Creatinine [Mass/volume] in Serum or Plasma 0.86 mg/dL 0.57-1.00 [facility] ([facility] eGFR If Africn Am 80 mL/min/1.73 [facility] ([facility] eGFR If NonAfricn Am 69 mL/min/1.73 [facility] ([facility] Urea nitrogen/Creatinine [Mass Ratio] in Serum or Plasma 23 1 2-28 [facility] ([facility] Potassium [Moles/volume] in Serum or Plasma 4.5 mmol/L 3.5-5.2 [facility] ([facility] Sodium [Moles/volume] in Serum or Plasma 136 mmol/L 134-144 [facility] ([facility] Carbon dioxide, total [Moles/volume] in Serum or Plasma 21 mmol/L 20 -29 [facility] ([facility] Chloride [Moles/volume] in Serum or Plasma 98 mmol/L 96-106 [facility] ([facility] Calcium [Mass/volume] in Serum or Plasma 9.5 mg/dL 8.7-10.3 [facility] ([facility] Globulin [Mass/volume] in Serum by calculation 2.0 g/dL 1.5-4.5 [facility] ([facility] Protein [Mass/volume] in Serum or Plasma 6.3 g/dL 6.0-8.5 [facility] ([facility] Albumin/Globulin [Mass Ratio] in Serum or Plasma 2.2 1.2-2.2 [facility] ([facility] Albumin [Mass/volume] in Serum or Plasma 4.3 g/dL 3.8-4.8 [facility] ([facility] Aspartate aminotransferase [Enzymatic activity/volume] in Serum or Plasma 17 IU/L 0-40 [facility] Alkaline phosphatase [Enzymatic activity/volume] in Serum or Plasma 84 IU/L 39-117 [facility] Bilirubin.total [Mass/volume] in Serum or Plasma 0.2 mg/dL 0.0-1.2 [facility] ([facility] Alanine aminotransferase [Enzymatic activity/volume] in Seru m or Plasma 10 IU/L 0-32 [facility] ([facility] ID Date Data Source [id number] 07/28/2019 10:36:00 AM EDT [facility] ([facility] Name Value Range Interpretation Code Description Data Leona rce(s) Supporting Document(s) Erythrocytes [#/volume] in Blood by Automated count 4.47 x10E6/uL 3.7 7-5.28 [facility] ([facility] Leukocytes [#/volume] in Blood by Automated count 4.4 x10E3/uL 3.4-10 .8 [facility] ([facility] Erythrocyte mean corpuscular volume [Entitic volume] by Auto mated count 83 fL 79-97 [facility] ([facility] Hemoglobin [Mass/volume] in Blood 11.2 g/dL 11.1-15.9 [facility] ([facility] Hematocrit [Volume Fraction] of Blood by Automated count 37.0 % 3 4.0-46.6 [facility] ([facility] Erythrocyte mean corpuscular hemoglobin [Entitic mass] by Automated count 25.1 pg 26.6-33.0 Below low normal [facility] ([facility] Erythrocyte distribution width [Ratio] by Automated count 14.9 % 11.7-15.4 [facility] ([facility] Erythrocyte mean corpuscular hemoglobin concentration [Mass/volume] by Automated count 30.3 g/dL 31.5-35.7 Below low normal [facility] ([facility] Platelets [#/volume] in Blood by Automated count 310 x10E3/uL 150-450 [facility] ([facility] Monocytes/100 leukocytes in Blood by Automated count 8 % [facility] ([facility] Neutrophils 47 % [facility] ([facility] Lymphs 41 % [facility] Eosinophils/100 leukocytes in Blood by Automated count 3 % [facility] ([facility] Basophils/100 leukocytes in Blood by Automated count 1 % [facility] ([facility] Immature cells [#/volume] in Blood Laboratory test result [facility] ([facility] Monocytes [#/volume] in Blood 0.4 x10E3/uL 0.1-0.9 [facility] ([facility] Lymphocytes [#/volume] in Blood 1.8 x10E3/uL 0.7-3.1 [facility] ([facility] Neutrophils [#/volume] in Blood by Automated count 2.1 x10E3/uL 1.4-7 .0 [facility] ([facility] Eosinophils [#/volume] in Blood by Automated count 0.1 x10E3/uL 0.0-0 .4 [facility] ([facility] Basophils [#/volume] in Blood by Automated count 0.0 x10E3/uL 0.0-0.2 [facility] ([facility] Immature granulocytes/100 leukocytes in Blood by Automated count 0 % [facility] ([facility] Immature granulocytes [#/volume] in Blood by Automated count 0.0 x10E3/uL 0.0-0.1 [facility] Morphology [Interpretation] in Blood Narrative Laboratory test result [facility] ([facility] Nucleated erythrocytes/100 leukocytes [Ratio] in Blood by Automated count Laboratory test result [facility] ([facility] ID Date Data Source [id number] 04/10/2019 11:02:00 AM EST [facility] ([facility] Name Value Range Interpretation Code Description Data Leona rce(s) Supporting Document(s) Erythrocytes [#/volume] in Blood by Automated count 4.34 x10E6/uL 3.7 7-5.28 [facility] ([facility] Leukocytes [#/volume] in Blood by Automated count 6.0 x10E3/uL 3.4-10 .8 [facility] ([facility] Hemoglobin [Mass/volume] in Blood 11.0 g/dL 11.1-15.9 Below low nor mal [facility] ([facility] Erythrocyte mean corpuscular hemoglobin [Entitic mass] by Automated count 25.3 pg 26.6-33.0 Below low normal [facility] ([facility] Hematocrit [Volume Fraction] of Blood by Automated count 35.7 % 3 4.0-46.6 [facility] ([facility] Erythrocyte mean corpuscular volume [Entitic volume] by Auto mated count 82 fL 79-97 [facility] ([facility] Erythrocyte distribution width [Ratio] by Automated count 15.5 % 11.7-15.4 Above high normal [facility] ([facility] ) Platelets [#/volume] in Blood by Automated count 410 x10E3/uL 150-450 [facility] ([facility] Erythrocyte mean corpuscular hemoglobin concentration [Mass/volume] by Automated count 30.8 g/dL 31.5-35.7 Below low normal [facility] ([facility] Monocytes/100 leukocytes in Blood by Automated count 9 % [facility] ([facility] Neutrophils 44 % [facility] ([facility] Lymphs 44 % [facility] ([facility] Neutrophils [#/volume] in Blood by Automated count 2.7 x10E3/uL 1.4-7 .0 [facility] ([facility] Immature cells [#/volume] in Blood Laboratory test result [facility] ([facility] Eosinophils/100 leukocytes in Blood by Automated count 3 % [facility] ([facility] Basophils/100 leukocytes in Blood by Automated count 0 % [facility] ([facility] Lymphocytes [#/volume] in Blood 2.7 x10E3/uL 0.7-3.1 [facility] ([facility] Monocytes [#/volume] in Blood 0.5 x10E3/uL 0.1-0.9 [facility] ([facility] Eosinophils [#/volume] in Blood by Automated count 0.2 x10E3/uL 0.0-0 .4 [facility] ([facility] Basophils [#/volume] in Blood by Automated count 0.0 x10E3/uL 0.0-0.2 [facility] ([facility] Immature granulocytes [#/volume] in Blood by Automated count 0.0 x10E3/uL 0.0-0.1 [facility] ([facility] Nucleated erythrocytes/100 leukocytes [Ratio] in Blood by Automated count Laboratory test result [facility] ([facility] Immature granulocytes/100 leukocytes in Blood by Automated count 0 % [facility] ([facility] Morphology [Interpretation] in Blood Narrative Laboratory test result [facility] ([facility] ID Date Data Source [id number] 04/10/2019 11:02:00 AM EST [facility] ([facility] Name Value Range Interpretation Code Description Data Leona rce(s) Supporting Document(s) Hemoglobin A1c/Hemoglobin.total in Blood 7.9 % 4.8-5.6 Above high normal [facility] ([facility] <content>Prediabetes: 5.7 - 6.4</content >
<content>Diabetes: >6.4</content>
<content>Glycemic control for adults with diabetes: <7.0</content>
<content></content> ID Date Data Source [id number] 04/10/2019 11:02:00 AM EST [facility] ([facility] Name Value Range Interpretation Code Description Data Leona rce(s) Supporting Document(s) Triglyceride [Mass/volume] in Serum or Plasma 51 mg/dL 0-149 [facility] ([facility] Cholesterol [Mass/volume] in Serum or Plasma 137 mg/dL 100-199 [facility] ([facility] Cholesterol in HDL [Mass/volume] in Serum or Plasma 75 mg/dL [facility] ([facility] Cholesterol in LDL [Mass/volume] in Serum or Plasma by calcu lation 52 mg/dL 0-99 [facility] Cholesterol in VLDL [Mass/volume] in Serum or Plasma by calc ulation 10 mg/dL 5-40 [facility] ([facility] Comment: Laboratory test result [facility] ([facility] ID Date Data Source [id number] 04/10/2019 11:02:00 AM EST [facility] ([facility] Name Value Range Interpretation Code Description Data Leona rce(s) Supporting Document(s) BUN 24 mg/dL 8-27 [facility] ([facility] Glucose [Mass/volume] in Serum or Plasma 136 mg/dL 65-99 Above high normal [facility] ([facility] Creatinine [Mass/volume] in Serum or Plasma 0.81 mg/dL 0.57-1.00 [facility] ([facility] eGFR If NonAfricn Am 74 mL/min/1.73 [facility] ([facility] Urea nitrogen/Creatinine [Mass Ratio] in Serum or Plasma 30 12-28 Above high normal [facility] ([facility] ) Sodium [Moles/volume] in Serum or Plasma 139 mmol/L 134-144 [facility] ([facility] eGFR If Africn Am 86 mL/min/1.73 [facility] ([facility] Chloride [Moles/volume] in Serum or Plasma 99 mmol/L 96-106 [facility] ([facility] Carbon dioxide, total [Moles/volume] in Serum or Plasma 25 mmol/L 20 -29 [facility] ([facility] Calcium [Mass/volume] in Serum or Plasma 9.6 mg/dL 8.7-10.3 [facility] ([facility] Potassium [Moles/volume] in Serum or Plasma 4.8 mmol/L 3.5-5.2 [facility] ([facility] Albumin [Mass/volume] in Serum or Plasma 4.3 g/dL 3.8-4.8 [facility] ([facility] Please note reference interval change* * Protein [Mass/volume] in Serum or Plasma 6.5 g/dL 6.0-8.5 [facility] ([facility] Globulin [Mass/volume] in Serum by calculation 2.2 g/dL 1.5-4.5 [facility] ([facility] Bilirubin.total [Mass/volume] in Serum or Plasma 0.2 mg/dL 0.0-1.2 [facility] ([facility] Albumin/Globulin [Mass Ratio] in Serum or Plasma 2.0 1.2-2.2 [facility] ([facility] Alkaline phosphatase [Enzymatic activity/volume] in Serum or Plasma 71 IU/L 39-117 [facility] ([facility] Alanine aminotransferase [Enzymatic activity/volume] in Seru m or Plasma 12 IU/L 0-32 [facility] ([facility] Aspartate aminotransferase [Enzymatic activity/volume] in Serum or Plasma 16 IU/L 0-40 [facility] ([facility] ID Date Data Source [id number] 02/13/2019 10:16:00 AM EST [facility] Name Value Range Interpretation Code Description Data Leona rce(s) Supporting Document(s) Ferritin [Mass/volume] in Serum or Plasma 6 ng/mL 8-252 Below low normal [facility] ([facility] ID Date Data Source [id number] 02/13/2019 10:16:00 AM EST [facility] ([facility] Name Value Range Interpretation Code Description Data Leona rce(s) Supporting Document(s) Vitamin B12 Level 267 pg/mL Normal (applies to non-numeri c results) [facility] ([facility] VITAMIN B12 NORMAL RANGE NORMAL 247 - 911 PG/ML INDETERMINATE 211 - 246 PG/ML DEFICIENT LESS THAN 211 PG/ML Folate Laboratory test result Normal (applies to non-n umeric results) [facility] ([facility] FOLATE NORMAL RANGE NORMAL GREATER THAN 5.4 NG/ML INDETERMINATE 3.4-5.4 NG/ML DEFICIENT LESS THAN 3.4 NG/ML ID Date Data Source [id number] 02/13/2019 10:16:00 AM EST [facility] Name Value Range Interpretation Code Description Data Leona rce(s) Supporting Document(s) Percent Saturation 5.6 % 13.2-45.0 Below low normal [facility] ([facility] Total Iron Binding Capacity 461 ug/dL 250-450 Above high normal [facility] ([facility] Iron (Fe) 26 ug/dL 50-170 Below low normal [facility] ( [facility] ID Date Data Source [id number] 02/13/2019 10:16:00 AM EST [facility] ([facility] Name Value Range Interpretation Code Description Data Leona rce(s) Supporting Document(s) Glomerular Filtration Rate Laboratory test result Normal (applies to non- numeric results) [facility] ([facility] ) <content>Units are mL/min/1.73 m2</content>
<content></content>
<content>Chronic Kidney Disease Staging per NKF:</content>
<content></content>
<content>Stage I & II GFR >=60 Normal to Mildly Decreased</content>
<content>Stage III GFR 30- 59 Moderately Decreased</content>
<content>Stage IV GFR 15-29 Severely Decreased</content>
<content>Stage V GFR <15 Very Little GFR Left</content>
<content>ESRD GFR <15 on PAINTER HELPER SIGN</content>
<content></content> Creatinine For GFR 0.91 mg/dL 0.55-1.30 Normal (applies to non -numeric results) [facility] ([facility] ID Date Data Source [id number] 02/13/2019 10:16:00 AM EST [facility] ([facility] Name Value Range Interpretation Code Description Data Leona rce(s) Supporting Document(s) Urea nitrogen [Mass/volume] in Serum or Plasma 15 mg/dL 7 -18 Normal (applies to non-numeric results) [facility] ([facility]) ID Date Data Source [id number] 02/13/2019 10:16:00 AM EST [facility] Name Value Range Interpretation Code Description Data Leona rce(s) Supporting Document(s) White Blood Count 7.0 10 4.0-10.0 Normal (applies to non-numeri c results) [facility] ([facility] Hemoglobin 10.6 g/dL 12.0-15.5 Below low normal [facility] ( [facility] Hematocrit 35.8 % 36.0-47.0 Below low normal [facility] ( [facility] Red Blood Count 4.08 10 4.00-5.40 Normal (applies to non-numeric results) [facility] ([facility] Mean Corpuscular Volume 87.7 fl 80.0-96.0 Normal ( applies to non-numeric results) [facility] ([facility] ) Mean Corpuscular HGB Conc 29.6 g/dL 32.0-36.5 Below low normal [facility] ([facility] Mean Corpuscular Hemoglobin 26.0 pg 27.0-33.0 Below low normal [facility] ([facility] Neutrophils % 67.7 % 36.0-66.0 Above high normal MEDE NT ([facility] Red Cell Distribution Width 16.3 % 11.5-14.5 Above high normal [facility] ([facility] Platelet Count, Automated 302 10 150-450 Normal (applies to non-numeric results) [facility] ([facility] ) [place] % 6.3 % 0.0-5.0 Above high normal [facility] ([facility] Lymph % 23.5 % 24.0-44.0 Below low normal [facility] ( [facility] Eos % 2.3 % 0.0-3.0 Normal (applies to non-numeric resul ts) [facility] ([facility] Immature Granulocyte % 0.1 % 0-3.0 Normal (applies to non-n umeric results) [facility] ([facility] Baso % 0.1 % 0.0-1.0 Normal (applies to non-numeric resul ts) [facility] Nucleated Red Blood Cell % 0.0 % 0-0 Normal (applies to n on-numeric results) [facility] Neutrophils # 4.7 10 1.5-8.5 Normal (applies to non-numeric re sults) [facility] Lymph # 1.6 10 1.5-5.0 Normal (applies to non-numeric resul ts) [facility] [place] # 0.4 10 0.0-0.8 Normal (applies to non-numeric resul ts) [facility] Baso # 0.0 10 0.0-0.2 Normal (applies to non-numeric resul ts) [facility] Eos # 0.2 10 0.0-0.5 Normal (applies to non-numeric resul ts) [facility] ID Date Data Source [id number] 02/13/2019 10:16:00 AM EST [facility] ([facility], ) Name Value Range Interpretation Code Description Data Leoan rce(s) Supporting Document(s) Creatinine For GFR 0.91 mg/dL 0.55-1.30 Normal (applies to non -numeric results) [facility] ([facility], ) Glomerular Filtration Rate > 60.0 Normal (applies to n on-numeric results) [facility] ([facility]) <content>Units are mL/min/1.73 m2</content>
<content></content>
<content>Chronic Kidney Disease Staging per NKF:</content>
<content></content>
<content>Stage I & II GFR >=60 Normal to Mildly Decreased</content>
<content>Stage III GFR 30- 59 Moderately Decreased</content>
<content>Stage IV GFR 15-29 Severely Decreased</content>
<content>Stage V GFR <15 Very Little GFR Left</content>
<content>ESRD GFR <15 on PAINTER HELPER SIGN</content>
<content></content> ID Date Data Source [id number] 02/13/2019 10:16:00 AM EST [facility] ([facility]) Name Value Range Interpretation Code Description Data Leona rce(s) Supporting Document(s) Urea nitrogen [Mass/volume] in Serum or Plasma 15 mg/dL 7 -18 Normal (applies to non-numeric results) [facility] ID Date Data Source [id number] 02/13/2019 10:16:00 AM EST [facility] ([facility]) Name Value Range Interpretation Code Description Data Leona rce(s) Supporting Document(s) Folate > 24.0 ng/mL Normal (applies to non-numeric res ults) [facility] ([facility]) FOLATE NORMAL RANGE NORMAL GREATER THAN 5.4 NG/ML INDETERMINATE 3.4-5.4 NG/ML DEFICIENT LESS THAN 3.4 NG/ML Vitamin B12 Level 267 pg/mL Normal (applies to non-numeri c results) [facility] VITAMIN B12 NORMAL RANGE NORMAL 247 - 911 PG/ML INDETERMINATE 211 - 246 PG/ML DEFICIENT LESS THAN 211 PG/ML ID Date Data Source [id number] 02/13/2019 10:16:00 AM EST [facility] ([facility]) Name Value Range Interpretation Code Description Data Leona rce(s) Supporting Document(s) Ferritin [Mass/volume] in Serum or Plasma 6 ng/mL 8-252 Below low normal [facility] ([facility]) ID Date Data Source [id number] 02/13/2019 10:16:00 AM EST [facility] ([facility]) Name Value Range Interpretation Code Description Data Leona rce(s) Supporting Document(s) Iron (Fe) 26 ug/dL 50-170 Below low normal [facility] ( [facility]) Total Iron Binding Capacity 461 ug/dL 250-450 Above high normal [facility] ([facility]) Percent Saturation 5.6 % 13.2-45.0 Below low normal [facility] ([facility]) ID Date Data Source [id number] 02/13/2019 10:16:00 AM EST [facility] ([facility]) Name Value Range Interpretation Code Description Data Leona rce(s) Supporting Document(s) Red Blood Count 4.08 10 4.00-5.40 Normal (applies to non-numeric results) [facility] ([facility]) White Blood Count 7.0 10 4.0-10.0 Normal (applies to non-numeri c results) [facility] ([facility]) Mean Corpuscular Volume 87.7 fl 80.0-96.0 Normal ( applies to non-numeric results) [facility] ([facility]) Hematocrit 35.8 % 36.0-47.0 Below low normal [facility] ( [facility]) Hemoglobin 10.6 g/dL 12.0-15.5 Below low [facility] Mean Corpuscular HGB Conc 29.6 g/dL 32.0-36.5 Below low normal [facility] Red Cell Distribution Width 16.3 % 11.5-14.5 Above high normal [facility] ([facility]) Mean Corpuscular Hemoglobin 26.0 pg 27.0-33.0 Below low normal [facility] ([facility]) Neutrophils % 67.7 % 36.0-66.0 Above high normal [facility] NT ([facility]) Lymph % 23.5 % 24.0-44.0 Below low normal [facility] ( [facility]) Platelet Count, Automated 302 10 150-450 Normal (applies to non-numeric results) [facility] ([facility]) Baso % 0.1 % 0.0-1.0 Normal (applies to non-numeric resul ts) [facility] ([facility]) [place] % 6.3 % 0.0-5.0 Above high normal [facility] ([facility]) Eos % 2.3 % 0.0-3.0 Normal (applies to non-numeric resul ts) [facility] ([facility]) Nucleated Red Blood Cell % 0.0 % 0-0 Normal (applies to n on-numeric results) [facility] ([facility]) Immature Granulocyte % 0.1 % 0-3.0 Normal (applies to non-n umeric results) [facility] ([facility]) Neutrophils # 4.7 10 1.5-8.5 Normal (applies to non-numeric re sults) [facility] ([facility]) [place] # 0.4 10 0.0-0.8 Normal (applies to non-numeric resul ts) [facility] ([facility]) Lymph # 1.6 10 1.5-5.0 Normal (applies to non-numeric resul ts) [facility] ([facility]) Eos # 0.2 10 0.0-0.5 Normal (applies to non-numeric resul ts) [facility] Baso # 0.0 10 0.0-0.2 Normal (applies to non-numeric resul ts) [facility] Procedure Social History Code Duration Value Status Description Data Source(s ) Smoking 01/21/2020 12:00:00 AM EST Patient is a former smoker completed Patient is a former smoker [facility] ([facility]) Vital Signs ID Date Data Source UNK Name Value Range Interpretation Code Description Data Source(s) Body temperature 96.9 [degF] 96.9 [degF] [facility] ([facility]) Body temperature 96.8 [degF] 96.8 [degF] [facility] ([facility]) Body mass index (BMI) [Ratio] 36.4 kg/m2 36.4 k g/m2 [facility] ([facility]) Body weight 186.50 [lb_av] 186.50 [lb_av] [facility] ([facility]) Body height 60 [in_i] 60 [in_i] [facility] ([facility]) 5'0" Body temperature 97.2 [degF] 97.2 [degF] [facility] ([facility]) Body weight 185.00 [lb_av] 185.00 [lb_av] [facility] ([facility]) Body temperature 97.0 [degF] 97.0 [degF] [facility] ([facility]) Oxygen saturation in Arterial blood by Pulse oximetry 96 % 96 % [facility] ([facility], [facility]) Respiratory rate 18 /min 18 /min [facility] ( [facility], [facility]) Heart rate 75 /min 75 /min [facility] ([facility], [facility]) Diastolic blood pressure 56 mm[Hg] 56 mm[Hg] [facility], [facility]) Systolic blood pressure 108 mm[Hg] 108 mm[Hg] M [facility] ([facility], [facility]) Body weight 86.638 kg 86.638 kg [facility] ([facility]) [place] body weight 100 [lb_av] 100 [lb_av] [facility] Body mass index (BMI) [Ratio] 38.6 kg/m2 38.6 k g/m2 [facility] ([facility]) Body weight 191.00 [lb_av] 191.00 [lb_av] [facility] Body height 59 [in_i] 59 [in_i] [facility] ([facility]) 4'11" Diastolic blood pressure 66 mm[Hg] 66 mm[Hg] [facility] ([facility]) Systolic blood pressure 128 mm[Hg] 128 mm[Hg] M [facility] ([facility]) Oxygen saturation in Arterial blood by Pulse oximetry 97 % 97 % [facility] ([facility] Body mass index (BMI) [Ratio] 36.1 kg/m2 36.1 k g/m2 [facility] ([facility] [place] body weight 100 [lb_av] 100 [lb_av] [facility] ([facility] Body weight 188.00 [lb_av] 188.00 [lb_av] [facility] ([facility] Body height 60.5 [in_i] 60.5 [in_i] [facility] 5'0.50" Respiratory rate 16 /min 16 /min [facility] ( [facility] Heart rate 72 /min 72 /min [facility] Body temperature 98.5 [degF] 98.5 [degF] [facility] ([facility] Diastolic blood pressure 70 mm[Hg] 70 mm[Hg] [facility] ([facility] Systolic blood pressure 124 mm[Hg] 124 mm[Hg] M EDENT ([facility] Oxygen saturation in Arterial blood by Pulse oximetry 97 % 97 % MEDRADHA ([facility] Body mass index (BMI) [Ratio] 36.7 kg/m2 36.7 k g/m2 MEDENT ([facility] [place] body weight 100 [lb_av] 100 [lb_av] MEDEN T ([facility] Body weight 191.00 [lb_av] 191.00 [lb_av] MEDEN T ([facility] Body height 60.5 [in_i] 60.5 [in_i] MEDENT ([facility] 5'0.50" Respiratory rate 14 /min 14 /min MEDENT ( [facility] Heart rate 70 /min 70 /min MEDENT ([facility] Body temperature 98.2 [degF] 98.2 [degF] MEDENT ([facility] Diastolic blood pressure 66 mm[Hg] 66 mm[Hg] MEDENT ([facility] Systolic blood pressure 122 mm[Hg] 122 mm[Hg] M EDENT ([facility] Oxygen saturation in Arterial blood by Pulse oximetry 95 % 95 % SHANNAN ([facility] Body mass index (BMI) [Ratio] 36.1 kg/m2 36.1 k g/m2 MEDENT ([facility] [place] body weight 100 [lb_av] 100 [lb_av] MEDEN T ([facility] Body weight 188.00 [lb_av] 188.00 [lb_av] MEDEN T ([facility] Body height 60.5 [in_i] 60.5 [in_i] MEDENT ([facility] 5'0.50" Respiratory rate 14 /min 14 /min MEDENT ( [facility] Heart rate 66 /min 66 /min MEDENT ([facility] Body temperature 98.0 [degF] 98.0 [degF] MEDENT ([facility] Diastolic blood pressure 68 mm[Hg] 68 mm[Hg] MEDENT ([facility] Systolic blood pressure 128 mm[Hg] 128 mm[Hg] M EDENT ([facility] Oxygen saturation in Arterial blood by Pulse oximetry 98 % 98 % MEDENT ([facility] Body mass index (BMI) [Ratio] 35.9 kg/m2 35.9 k g/m2 MEDENT ([facility] Body weight 187.00 [lb_av] 187.00 [lb_av] MEDEN T ([facility] Body height 60.5 [in_i] 60.5 [in_i] MEDENT ([facility] 5'0.50" Respiratory rate 14 /min 14 /min MEDENT ( [facility] Heart rate 74 /min 74 /min MEDENT ([facility] Body temperature 97.7 [degF] 97.7 [degF] MEDENT ([facility] Diastolic blood pressure 80 mm[Hg] 80 mm[Hg] MEDENT ([facility] Systolic blood pressure 124 mm[Hg] 124 mm[Hg] M EDENT ([facility] Body height 60.5 [in_i] 60.5 [in_i] MEDENT ([facility] 5'0.50" Respiratory rate 18 /min 18 /min MEDENT ( [facility] Heart rate 60 /min 60 /min MEDENT ([facility] Body temperature 97.8 [degF] 97.8 [degF] MEDENT ([facility] Diastolic blood pressure 76 mm[Hg] 76 mm[Hg] MEDENT ([facility] Systolic blood pressure 116 mm[Hg] 116 mm[Hg] M EDRADHA ([facility] Oxygen saturation in Arterial blood by Pulse oximetry 98 % 98 % MEDENT ([facility] Body mass index (BMI) [Ratio] 35.5 kg/m2 35.5 k g/m2 MEDENT ([facility] Body weight 185.00 [lb_av] 185.00 [lb_av] MEDEN T ([facility] Oxygen saturation in Arterial blood by Pulse oximetry 98 % 98 % [facility] Body mass index (BMI) [Ratio] 35.7 kg/m2 35.7 k g/m2 MEDENT ([facility] Body weight 186.00 [lb_av] 186.00 [lb_av] MEDEN T ([facility] Body height 60.5 [in_i] 60.5 [in_i] MEDENT ([facility] 5'0.50" Respiratory rate 16 /min 16 /min MEDENT ( [facility] Heart rate 66 /min 66 /min MEDENT ([facility] Body temperature 98.3 [degF] 98.3 [degF] MEDENT ([facility] Diastolic blood pressure 72 mm[Hg] 72 mm[Hg] MEDENT ([facility] Systolic blood pressure 118 mm[Hg] 118 mm[Hg] M EDRADHA ([facility] Body weight 81.648 kg 81.648 kg [facility] ([facility], ) [place] body weight 100 [lb_av] 100 [lb_av] MEDEN T ([facility]) Body mass index (BMI) [Ratio] 36.4 kg/m2 36.4 k g/m2 [facility] ([facility]) Body weight 180.00 [lb_av] 180.00 [lb_av] MEDEN T ([facility]) Body height 59 [in_i] 59 [in_i] MEDENT ([facility], ) " Diastolic blood pressure 70 mm[Hg] 70 mm[Hg] [facility] ([facility], ) Systolic blood pressure 134 mm[Hg] 134 mm[Hg] [facility], [facility] Body weight 83.462 kg 83.462 kg [facility] ([facility]) Body mass index (BMI) [Ratio] 37.2 kg/m2 37.2 k g/m2 [facility] ([facility]) Body weight 184.00 [lb_av] 184.00 [lb_av] [facility] Felicia ([facility], ) Body height 59 [in_i] 59 [in_i] [facility] ([facility], ) " Diastolic blood pressure 78 mm[Hg] 78 mm[Hg] [facility] ([facility], ) Systolic blood pressure 136 mm[Hg] 136 mm[Hg] [facility], )
[2020-03-13] MEDS ORDERED: NS 1,000 ML IV SCH (18:40)
[2020-03-13] MEDS ORDERED: ONDANSETRON 4MG/2ML VIAL IV ONE (18:45)
[2020-03-13] MEDS ORDERED: MORPHINE 4 MG/ML 1ML VIAL/SYRINGE (J2270) IV ONE (18:45)
[2020-03-13] MEDS: GASTROGRAFIN SOLUTION 30ML PO SCH ×2 (19:29→20:02)
[2020-03-13 19:37] LABS: BASO % 0.4 % (0.0-1.0); EOS # 0.2 10^3/uL (0.0-0.5); EOS % 2.4 % (0.0-3.0); HEMATOCRIT 36.4 % (36.0-47.0); HEMOGLOBIN 10.8 g/dl (12.0-15.5); LYMPH # 3.2 10^3/uL (1.5-5.0); LYMPH % 39.7 % (24.0-44.0); MEAN CORPUSCULAR HEMOGLOBIN 24.3 pg (27.0-33.0); MEAN CORPUSCULAR HGB CONC 29.7 g/dl (32.0-36.5); MONO # 0.5 10^3/uL (0.0-0.8); MONO % 6.6 % (0.0-5.0); NEUTROPHILS # 4.1 10^3/uL (1.5-8.5); NEUTROPHILS % 50.8 % (36.0-66.0); PLATELET COUNT, AUTOMATED 375 10^3/uL (150-450); RED BLOOD COUNT 4.44 10^6/uL (4.00-5.40)
[2020-03-13 19:54] LABS: ALBUMIN 3.4 GM/DL (3.2-5.2); ALT/SGPT 21 U/L (12-78); BILIRUBIN,DIRECT < 0.1 MG/DL (0.0-0.2); BILIRUBIN,TOTAL 0.3 MG/DL (0.2-1.0); BLOOD UREA NITROGEN 14 MG/DL (7-18); CALCIUM LEVEL 9.4 MG/DL (8.8-10.2); CARBON DIOXIDE LEVEL 32 MEQ/L (21-32); CHLORIDE LEVEL 106 MEQ/L (98-107); CREATININE FOR GFR 0.79 MG/DL (0.55-1.30); GLOMERULAR FILTRATION RATE > 60.0 (>45); GLUCOSE, FASTING 52 MG/DL (70-100); LIPASE 218 U/L (73-393); POTASSIUM SERUM 4.1 MEQ/L (3.5-5.1); SODIUM LEVEL 140 MEQ/L (136-145); TOTAL PROTEIN 6.4 GM/DL (6.4-8.2)
[2020-03-13] MEDS ORDERED: ISOVUE-370 76% 100ML VIAL As Ordered ONE (21:14)
[2020-03-13] MEDS ORDERED: DEXTROSE 50% 50 ML SYRINGE As Ordered ONE (21:35)
[2020-03-13] MEDS ORDERED: DEXTROSE 50% 50 ML SYRINGE IV STA (21:41)
--- NOTE | 2020-03-13 21:57 | REPVR ---
PROCEDURE INFORMATION: Exam: CT Abdomen And Pelvis With Contrast Exam date and time: 03/13/2020 9:26 PM Age: 69 years old Clinical indication: Abdominal pain; Localized; Left lower quadrant (llq); Additional info: Llq pain TECHNIQUE: Imaging protocol: Computed tomography of the abdomen and pelvis with intravenous contrast. Radiation optimization: All CT scans at this facility use at least one of these dose optimization techniques: automated exposure control; mA and/or kV adjustment per patient size (includes targeted exams where dose is matched to clinical indication); or iterative reconstruction. Contrast material: ISOVUE 370; Contrast volume: 100 ml; Contrast route: INTRAVENOUS (IV); COMPARISON: CT ABD/PEL W/IV CONTRAST ONLY 10/11/2018 6:56 PM FINDINGS: Liver: There is a diffuse decrease in hepatic parenchymal density, consistent with steatosis. Gallbladder and bile ducts: Normal. No calcified stones. No ductal dilation. Pancreas: Normal. No ductal dilation. Spleen: Normal. No splenomegaly. Adrenal glands: Normal. No mass. Kidneys and ureters: Normal. No hydronephrosis. Stomach and bowel: Duodenal diverticulum. Appendix: No evidence of appendicitis. Intraperitoneal space: Unremarkable. No free air. No significant fluid collection. Vasculature: Unremarkable. No abdominal aortic aneurysm. Lymph nodes: Unremarkable. No enlarged lymph nodes. Urinary bladder: Unremarkable as visualized. Reproductive: There has been a hysterectomy. Bones/joints: Severe central spinal stenosis L4-L5. Posterior hard disc protrusion L5-S1 may impinge on the left S1 nerve root. Soft tissues: Inflammatory changes demonstrated in the anterior mid abdominal wall. Clinical correlation to exclude a traumatic etiology suggested. IMPRESSION: 1. There is a diffuse decrease in hepatic parenchymal density, consistent with steatosis. 2. Inflammatory changes demonstrated in the anterior mid abdominal wall. Clinical correlation to exclude a traumatic etiology suggested. 3. There has been a hysterectomy. Electronically signed by: Ortiz Naik On 03/13/2020 21:57:28 PM
[2020-03-13 23:40] VITALS: BP 112/58
== END 2020-03-13 23:49 | disposition home or self-care (01) ==
LOC: EDBD 16:44 → M ED 16:44
DX: R10.9 Unspecified abdominal pain (principal); R19.7 Diarrhea, unspecified; E11.9 Type 2 diabetes mellitus without complications; I10 Essential (primary) hypertension; J45.909 Unspecified asthma, uncomplicated; E78.5 Hyperlipidemia, unspecified; F33.9 Major depressive disorder, recurrent, unspecified; F41.9 Anxiety disorder, unspecified; K21.9 Gastro-esophageal reflux disease without esophagitis; Z91.048 Other nonmedicinal substance allergy status; Z79.899 Other long term (current) drug therapy; Z79.82 Long term (current) use of aspirin; Z79.4 Long term (current) use of insulin
CPT/HCPCS: 74177; 80048; 80076; 81001; 83690; 85025; 93041; 96361; 96374; 96375; 99285; J2270; J2405; Q9963; Q9967

== ENCOUNTER 2020-03-28 03:17 | Inpatient (IN) | payer MEDICARE, OTHER ==
[~2020-03-28] VITALS: Ht 162.6 cm; Wt 84.1 kg
[~2020-03-28 03:17] MED LIST changes: +FERR325T16; -LISI10TA22 PO; +LISI10TA4 PO
[2020-03-28 03:44] LABS: BASO # 0.1 10^3/uL (0.0-0.2); BASO % 0.3 % (0.0-1.0); EOS # 0.2 10^3/uL (0.0-0.5); EOS % 1.1 % (0.0-3.0); HEMATOCRIT 39.7 % (36.0-47.0); HEMOGLOBIN 11.3 g/dl (12.0-15.5); LYMPH # 2.2 10^3/uL (1.5-5.0); LYMPH % 12.3 % (24.0-44.0); MEAN CORPUSCULAR HEMOGLOBIN 24.1 pg (27.0-33.0); MEAN CORPUSCULAR HGB CONC 28.5 g/dl (32.0-36.5); MEAN CORPUSCULAR VOLUME 84.8 fl (80.0-96.0); MONO # 0.8 10^3/uL (0.0-0.8); MONO % 4.4 % (0.0-5.0); NEUTROPHILS # 14.8 10^3/uL (1.5-8.5); NEUTROPHILS % 81.4 % (36.0-66.0); PLATELET COUNT, AUTOMATED 341 10^3/uL (150-450); RED BLOOD COUNT 4.68 10^6/uL (4.00-5.40); WHITE BLOOD COUNT 18.2 10^3/uL (4.0-10.0)
[2020-03-28 04:19] LABS: OSMOLALITY SERUM 289 MOSM/KG (280-301)
[2020-03-28 04:23] LABS: ACETONE/KETONE 0.54 MG/DL (<2.81); ALBUMIN 3.5 GM/DL (3.2-5.2); ALT/SGPT 23 U/L (12-78); BILIRUBIN,DIRECT < 0.1 MG/DL (0.0-0.2); BILIRUBIN,TOTAL 0.2 MG/DL (0.2-1.0); BLOOD UREA NITROGEN 19 MG/DL (7-18); CALCIUM LEVEL 9.3 MG/DL (8.8-10.2); CARBON DIOXIDE LEVEL 31 MEQ/L (21-32); CHLORIDE LEVEL 103 MEQ/L (98-107); CREATININE FOR GFR 1.01 MG/DL (0.55-1.30); ETHYL ALCOHOL (ETHANOL) < 0.003 % (0.000-0.010); GLOMERULAR FILTRATION RATE 57.9 (>45); GLUCOSE, FASTING 89 MG/DL (70-100); LIPASE 200 U/L (73-393); POTASSIUM SERUM 3.9 MEQ/L (3.5-5.1); SODIUM LEVEL 139 MEQ/L (136-145); TOTAL PROTEIN 6.8 GM/DL (6.4-8.2)
[2020-03-28] MEDS: D5W/0.45% SODIUM CHLORIDE 1,000 ML IV SCH ×4 (04:29→11:04)
[2020-03-28 04:37] LABS: HEMOGLOBIN A1c 7.5 %
[2020-03-28] MEDS ORDERED: CLEN1SOL (04:49)
[2020-03-28] MEDS ORDERED: LEVE1INJ5 (04:49)
[2020-03-28] MEDS ORDERED: HUMA100I5 (04:49)
[2020-03-28] MEDS ORDERED: DOK1CAP7 (04:49)
[2020-03-28] MEDS ORDERED: DICY20TA11 (04:49)
[2020-03-28] MEDS ORDERED: DEXTROSE 50% 50 ML SYRINGE IV STA (05:00)
[2020-03-28] MEDS ORDERED: DEXTROSE 50% 50 ML SYRINGE As Ordered ONE (05:00)
[2020-03-28 05:45] LABS: AMPHETAMINES LEVEL URINE NEGATIVE (NEGATIVE); BARBITURATES URINE NEGATIVE (NEGATIVE); BENZODIAZEPINES URINE NEGATIVE (NEGATIVE); CANNABINOIDS URINE NEGATIVE (NEGATIVE); COCAINE METABOLITE URINE NEGATIVE (NEGATIVE); METHADONE URINE NEGATIVE (NEGATIVE); OPIATES URINE NEGATIVE (NEGATIVE); PHENCYCLIDINE URINE NEGATIVE (NEGATIVE)
[2020-03-28] MEDS ORDERED: DULO1CAP6 PO (06:40)
[2020-03-28] MEDS ORDERED: PANT40TA29 PO (06:40)
[2020-03-28] MEDS ORDERED: PROAAER10 INH (06:40)
[2020-03-28] MEDS ORDERED: DICY20TA3 PO (06:40)
[2020-03-28] MEDS ORDERED: DOCU100C17 PO (06:40)
[2020-03-28] MEDS ORDERED: FERR32TA PO (06:40)
[2020-03-28] MEDS ORDERED: HUMA100I3 SC (06:40)
[2020-03-28 07:04] LABS: RSV AMPLIFICATION NEGATIVE (NEGATIVE)
[2020-03-28] MEDS ORDERED: COMBAER6 INH (07:21)
[2020-03-28] MEDS ORDERED: DICYCLOMINE 10 MG CAP PO SCH (07:30)
--- NOTE | 2020-03-28 07:44 | ECGEPIP ---
[facility] - ED Test Date: 2020-03-28 Pat Name: SARMAD HERNANDEZ Department: Room: - Gender: Female Heel Seat Laster: BILLIE : 1950 Requested By: RAYMOND Greene Order Number: [id number] Reading MD: Alina Suh Measurements Intervals Prim Rate: 60 P: 71 NE: 175 QRS: 89 QRSD: 83 T: 42 QT: 439 QTc: 442 Interpretive Statements SINUS RHYTHM NSTTW abnormalities DELAYED R PROGRESSION DECREASED RATE 01/18/20 Electronically Signed on 03-28-2020 7:43:55 EST by Alina Suh
--- NOTE | 2020-03-28 08:03 | REP ---
INDICATION: HYPOGLYCEMIA WBC 18 R/O PNA. COMPARISON: Comparison chest x-ray January 18, 2020. TECHNIQUE: Two views.. FINDINGS: The lungs are well inflated and free of infiltrate. The pleural angles are sharp. The heart size is normal. Pulmonary vasculature is not increased. No significant bony abnormality is seen. Monitoring electrodes are seen overlying the chest on the frontal view. IMPRESSION: Negative chest x-ray. <Electronically signed by Juan David Griffin > 03/28/20 075
[2020-03-28] MEDS ORDERED: FERROUS GLUCONATE 324 MG TAB PO SCH (09:00)
[2020-03-28] MEDS ORDERED: ATORVASTATIN 20 MG TAB PO SCH (09:00)
[2020-03-28] MEDS: ASPIRIN 81 MG ENTERIC TAB PO SCH (09:28)
[2020-03-28] MEDS: DULoxetine 30 MG CAP (CYMBALTA) PO SCH (09:29)
[2020-03-28] MEDS: lisinopriL 10 MG TAB PO SCH (09:29)
[2020-03-28] MEDS: POTASSIUM CHLORIDE 10 MEQ SR TABLET PO SCH (09:29)
[2020-03-28] MEDS: MAGNESIUM OXIDE 400 MG TAB (MAG-OX) PO SCH (09:29)
[2020-03-28] MEDS: DOCUSATE SODIUM 100MG CAPSULE PO SCH ×2 (09:29→22:32)
[2020-03-28] MEDS: DICYCLOMINE 10 MG CAP PO SCH (09:29)
[2020-03-28] MEDS: ATORVASTATIN 20 MG TAB PO SCH (09:30)
[2020-03-28 09:54] LABS: C REACTIVE PROTEIN QUANTITATIV < 0.30 MG/DL (0.00-0.30)
[2020-03-28] MEDS: INDAPAMIDE 1.25MG TABLET PO SCH (11:03)
[2020-03-28] MEDS: FERROUS GLUCONATE 324 MG TAB PO SCH ×2 (11:04→22:32)
[2020-03-28 13:04] LABS: BLOOD UREA NITROGEN 19 MG/DL (7-18); CALCIUM LEVEL 8.7 MG/DL (8.8-10.2); CARBON DIOXIDE LEVEL 31 MEQ/L (21-32); CHLORIDE LEVEL 101 MEQ/L (98-107); CREATININE FOR GFR 0.87 MG/DL (0.55-1.30); GLOMERULAR FILTRATION RATE > 60.0 (>45); GLUCOSE, FASTING 257 MG/DL (70-100); POTASSIUM SERUM 4.6 MEQ/L (3.5-5.1); SODIUM LEVEL 137 MEQ/L (136-145)
[2020-03-28 14:40] VITALS: BP 127/63
[2020-03-28 15:12] LABS: BLOOD UREA NITROGEN 16 MG/DL (7-18); CALCIUM LEVEL 8.9 MG/DL (8.8-10.2); CARBON DIOXIDE LEVEL 31 MEQ/L (21-32); CHLORIDE LEVEL 104 MEQ/L (98-107); CREATININE FOR GFR 0.83 MG/DL (0.55-1.30); GLOMERULAR FILTRATION RATE > 60.0 (>45); GLUCOSE, FASTING 178 MG/DL (70-100); POTASSIUM SERUM 4.7 MEQ/L (3.5-5.1); SODIUM LEVEL 139 MEQ/L (136-145)
[2020-03-28] MEDS ORDERED: GLUCAGON INJ 1MG VIAL SC PRN (15:45)
[2020-03-28] MEDS ORDERED: GLUCOSE 4GM CHEW TABLET PO PRN (15:45)
[2020-03-28] MEDS ORDERED: DEXTROSE 50% 50 ML SYRINGE IV PRN (15:45)
--- NOTE | 2020-03-28 16:00 | HPEPDOC ---
[facility] Medical History & Physical Date of Admission Mar 28, 2020 Date of Service: Mar 28, 2020 History and Physical CHIEF COMPLAINT: Low sugar HISTORY OF PRESENT ILLNESS: 69-year-old female with history of diabetes, hypertension, hypercholesterolemia, uterine cancer, status post , hysterectomy was in her usual state of health until early this morning when she was found to have a glucose of 20 at home with diaphoresis, weakness, confusion prompting her to come to the emergency room. Patient was recently started on twice a day insulin but had been on Levemir insulin for many years. She went to bed, took her medications last night she woke up in the middle of the night complaining of shakiness and diaphoresis. She has otherwise denied any recent history of fever, chills, shortness of breath, nausea, vomiting, abdominal pain, dysuria, urgency, frequency, changes in appetite, changes in mood, sore throat, rhinorrhea bright red blood per rectum, melena, black tarry stools, chest pain, pressure, tightness, lightheadedness, dizziness or near syncope. In the ER, her glucose was 54. She was given D50 and D5 half-normal 200 mL per hour hospitals was called to admit for persistent hypoglycemia secondary to insulin. Patient was evaluated for acute infection and had negative urinalysis, chest x-ray and blood cultures were taken. White count was elevated at 18,000 without fever. She was negative for coronavirus 19, and pro-calcitonin was 0.18. No Antibiotic was started. PAST MEDICAL HISTORY: diabetes, hypertension, hypercholesterolemia, uterine cancer, status post , hysterectomy, obesity, cyst on her head-Benign, chronic abdominal pain PAST SURGICAL HISTORY: Hysterectomy, cyst resection. Arm surgery SOCIAL HISTORY: Quit smoking and tobacco abuse. Retired. Previously worked for [employer] FAMILY HISTORY: Father of liver cirrhosis, CAD, [place]. Mother CAD ALLERGIES: Please see below. REVIEW OF SYSTEMS: 12 point review of systems negative aside from positive findings in HPI HOME MEDICATIONS: Please see below. PHYSICAL EXAMINATION: VITAL SIGNS: See below GENERAL APPEARANCE: Awake, alert, oriented 3, answering questions appropriately. Appears her stated age, in no distress HEENT: Face is symmetric. Tongue is midline. Dry mucous membranes. No JVD, thyromegaly or cervical lymphadenopathy CARDIOVASCULAR: S1, S2, sinus rhythm, no murmurs, rubs or gallops LUNGS: Clear to auscultation. No wheezing, rales or rhonchi ABDOMEN: Obese, soft, nontender, nondistended, positive bowel sounds in 4 quadrants EXTREMITIES: No cyanosis, clubbing or pitting edema LABORATORY DATA: See below. IMAGING: CXR INDICATION: HYPOGLYCEMIA WBC 18 R/O PNA. COMPARISON: Comparison chest x-ray January 18, 2020. TECHNIQUE: Two views.. FINDINGS: The lungs are well inflated and free of infiltrate. The pleural angles are sharp. The heart size is normal. Pulmonary vasculature is not increased. No significant bony abnormality is seen. Monitoring electrodes are seen overlying the chest on the frontal view. IMPRESSION: Negative chest x-ray. <Electronically signed by Juan David Griffin > 03/28/20 [id number] MICROBIOLOGY: Please see below. ASSESSMENT/PLAN: 69-year-old female with history of diabetes, hypertension, hypercholesterolemia, uterine cancer, status post , hysterectomy was in her usual state of health un til early this morning when she was found to have a glucose of 20 at home with diaphoresis, weakness, confusion prompting her to come to the emergency room. Patient was recently started on twice a day insulin but had been on Levemir insulin for many years. She went to bed, took her medications last night she woke up in the middle of the night complaining of shakiness and diaphoresis. She has otherwise denied any recent history of fever, chills, shortness of breath, nausea, vomiting, abdominal pain, dysuria, urgency, frequency, changes in appetite, changes in mood, sore throat, rhinorrhea bright red blood per rectum, melena, black tarry stools, chest pain, pressure, tightness, lightheadedness, dizziness or near syncope. In the ER, her glucose was 54. She was given D50 and D5 half-normal 200 mL per hour hospitals was called to admit for persistent hypoglycemia secondary to insulin. Patient was evaluated for acute infection and had negative urinalysis, chest x-ray and blood cultures were taken. White count was elevated at 18,000 without fever. She was negative for coronavirus 19, and p ro-calcitonin was 0.18. No Antibiotic was started. Hypoglycemia secondary to insulin -Patient's Levemir has been discontinued temporarily -Patient has been kept on D5 half normal saline at 200 mL seven-hour enter her glucose was stable at over 100 -Her fingersticks were initially every 4 hourly until her glucose level was stabilized and changed every before meals and at bedtime -She has been started on a consistent carbohydrate diet. fingersticks every before meals at bedtime with sliding scale coverage for now -PRO- calcitonin was 0.18 and unlikely to have a bacterial infection as cause for patient's hypo-glycemia. She remains afebrile. Differential despite leukocytosis of 18 -No empiric antibiotics given Reactive leukocytosis -UA and chest x-ray were unremarkable -Patient had no acute infectious symptoms -No empiric antibiotics were given -Pro-calcitonin was 0.18 Type 2 diabetes, uncontrolled -With episodes of severe hypoglycemia requiring D5 half-normal saline at 200 mL per hour -Consistent carbohydrate diet, sliding scale before every meal CHS and fingerstick coverage for now hypertension, -Controlled on lisinopril hypercholesterolemia, -Chronic -On Lipitor Depression -No active suicidal, homicidal ideation or plan -Continued on Cymbalta Iron deficiency Anemia -on supplemental iron and Colace History of uterine cancer, status post , hysterectomy Diet: consistent carbs dvt prophylaxis: compression stockings code status: full code. disposition: dc home in am. Vital Signs Vital Signs Date Time Temp Pulse Resp B/P (MAP) Pulse Ox O2 Delivery O2 Flow Rate FiO2 03/28/20 14:40 98.6 64 16 127/63 (84) 100 Room Air Laboratory Data Labs 24H Laboratory Tests 2 03/28/20 03:24: Bedside Glucose (Misc Panel) 100 03/28/20 03:33: Immature Granulocyte % (Auto) 0.5, Neutrophils (%) (Auto) 81.4H, Lymphocytes (%) (Auto) 12.3L, Monocytes (%) (Auto) 4.4, Eosinophils (%) (Auto) 1.1, Basophils (%) (Auto) 0.3, Neutrophils # (Auto) 14.8H, Lymphocytes # (Auto) 2.2, Monocytes # (Auto) 0.8, Eosinophils # (Auto) 0.2, Basophils # (Auto) 0.1, Nucleated Red Blood Cells % (auto) 0.0, Anion Gap 5L, Glomerular Filtration Rate 57.9, Estimated Mean Plasma Glucose 169H, Hemoglobin A1c 7.5, Osmolality 289, Lactic Acid Level 1.5, Calcium Level 9.3, Total Bilirubin 0.2, Direct Bilirubin < 0.1, Aspartate Amino Transf (AST/SGOT) 24, Alanine Aminotransferase (ALT/SGPT) 23, Alkaline Phosphatase 91, Total Protein 6.8, Albumin 3.5, Albumin/Globulin Ratio 1.1L, Lipase 200, Ethyl Alcohol Level < 0.003, B-Hydroxybutyrate 0.54 03/28/20 04:32: Bedside Glucose (Misc Panel) 72L 03/28/20 04:59: Bedside Glucose (Misc Panel) 54L 03/28/20 05:11: Urine Color YELLOW, Urine Appearance CLEAR, Urine pH 5.0, Urine Specific Williams 1.009, Urine Protein NEGATIVE, Urine Glucose (UA) 1+H, Urine Ketones NEGATIVE, Urine Blood NEGATIVE, Urine Nitrite NEGATIVE, Urine Bilirubin NEGATIVE, Urine Urobilinogen 0.2, Urine Leukocyte Esterase TRACEH, Urine WBC (Auto) 1, Urine RBC (Auto) 0, Urine Hyaline Casts (Auto) 0, Urine Bacteria (Auto) 1+H, Urine Squamous Epithelial Cells 0, Urine Sperm (Auto) , Urine Opiates Screen NEGATIVE, Urine Methadone Screen NEGATIVE, Urine Barbiturates Screen NEGATIVE, Urine Phencyclidine Screen NEGATIVE, Urine Amphetamines Screen NEGATIVE, Urine Benzodiazepines Screen NEGATIVE, Urine Cocaine Metabolite Screen NEGATIVE, Urine Cannabinoids Screen NEGATIVE 03/28/20 05:27: Bedside Glucose (Misc Panel) 108 03/28/20 05:56: Bedside Glucose (Misc Panel) 101 03/28/20 06:16: Coronavirus (COVID-19)(PCR) NEGATIVE, Influenza Type A (RT-PCR) NEGATIVE, Influenza Type B (RT-PCR) NEGATIVE, Respiratory Syncytial Virus (PCR) NEGATIVE 03/28/20 06:49: Bedside Glucose (Misc Panel) 96 03/28/20 07:21: Bedside Glucose (Misc Panel) 87 03/28/20 08:33: Bedside Glucose (Misc Panel) 128H 03/28/20 09:10: Erythrocyte Sedimentation Rate 23, Anion Gap 5L, Glomerular Filtration Rate > 60.0, Calcium Level 8.7L, C-Reactive Protein, Quantitative < 0.30, Procalcitonin 0.18 03/28/20 11:00: Bedside Glucose (Misc Panel) 209H 03/28/20 13:41: Bedside Glucose (Misc Panel) 206H 03/28/20 14:27: Anion Gap 4L, Glomerular Filtration Rate > 60.0, Calcium Level 8.9 CBC/BMP Laboratory Tests 03/28/20 03:33 03/28/20 09:10 03/28/20 14:27 Microbiology Microbiology 03/28/20 Blood Culture, Received Pending 03/28/20 Blood Culture, Received Pending 03/28/20 Urine Culture, Received Pending Home Medications Scheduled Aspirin (Aspirin EC) 81 Mg Tab, 81 MG PO DAILY Dicyclomine HCl (Dicyclomine HCl) 20 Mg Tablet, 20 MG PO DAILY Docusate Sodium (Docusate Sodium) 100 Mg Capsule, 100 MG PO BID TAKES AM/NOON, HOLD FOR LOOSE STOOLS Duloxetine Hcl (Duloxetine HCl) 60 Mg Capsule.dr, 60 MG PO DAILY Ferrous Gluconate (Ferrous Gluconate) 324 Mg Tablet, 324 MG PO BID Indapamide (Indapamide) 1.25 Mg Tab, 1.25 MG PO DAILY Insulin Lispro (Humalog) 100 Unit/1 Ml Cartridge, 5 UNITS SC BID WITH DINNER AND AT BEDTIME Lisinopril (Lisinopril) 10 Mg Tab, 10 MG PO DAILY Lovastatin (Lovastatin) 40 Mg Tab, 40 MG PO BID Magnesium Oxide (Magnesium Oxide) 400 Mg Tablet, 400 MG PO DAILY Metformin HCl (Metformin HCl) 1,000 Mg Tablet, 1,000 MG PO QHS Pantoprazole Sodium (Pantoprazole Sodium) 40 Mg Tablet.dr, 40 MG PO DAILY Pioglitazone HCl (Pioglitazone HCl) 45 Mg Tab, 45 MG PO DAILY Potassium Chloride (Klor-Con M10) 10 Meq Tabcr, 10 MEQ PO DAILY Scheduled PRN Albuterol Sulfate (Proair Hfa) 8.5 Gm Hfa.aer.ad, 2 PUFF INH Q6H PRN for SHORTNESS OF BREATH Ipratropium/Albuterol Sulfate (Combivent Respimat 20-100 Mcg) 4 Gm Mist.inhal, 2 PUFF INH QID PRN for SOB/WHEEZING Allergies Coded Allergies: adhesive tape (Verified Allergy, Unknown, RASH, 08/30/19) A-FIB/CHADSVASC A-FIB History Current/History of A-Fib/PAF?: No Current PO Anticoag Therapy: No Age/Risk Factor Scoring CHADSVASC: CHADSVASC Response (Comments) Value Age Risk Factor Age 65-74 years old 1 Gender Risk Factor Female 1 Hx of CHF No 0 Hx of HTN Yes 1 Hx of Stroke/TIA/or VTE No 0 Hx of Diabetes Yes 1 Hx of Vascular Disease No 0 Total 4 Treatment Treatment ordered: NONE MICHEAL LITTLE MD Mar 28, 2020 15:59
[2020-03-28] MEDS: HumaLOG INSULIN (NovoLOG) PER UNIT SC SCH (17:30)
[2020-03-28 19:02] LABS: BLOOD UREA NITROGEN 15 MG/DL (7-18); CARBON DIOXIDE LEVEL 29 MEQ/L (21-32); CHLORIDE LEVEL 105 MEQ/L (98-107); CREATININE FOR GFR 0.81 MG/DL (0.55-1.30); GLOMERULAR FILTRATION RATE > 60.0 (>45); GLUCOSE, FASTING 134 MG/DL (70-100); POTASSIUM SERUM 4.2 MEQ/L (3.5-5.1); SODIUM LEVEL 141 MEQ/L (136-145)
[2020-03-28] MEDS ORDERED: HumaLOG INSULIN (NovoLOG) PER UNIT SC SCH (21:00)
[2020-03-28 22:00] VITALS: BP 137/49
[2020-03-29 06:00] VITALS: BP 138/62
[2020-03-29] MEDS: DICYCLOMINE 10 MG CAP PO SCH (06:40)
[2020-03-29] MEDS: ASPIRIN 81 MG ENTERIC TAB PO SCH (07:54)
[2020-03-29] MEDS: DULoxetine 30 MG CAP (CYMBALTA) PO SCH (07:54)
[2020-03-29] MEDS: DOCUSATE SODIUM 100MG CAPSULE PO SCH (07:54)
[2020-03-29] MEDS: FERROUS GLUCONATE 324 MG TAB PO SCH (07:55)
[2020-03-29] MEDS: INDAPAMIDE 1.25MG TABLET PO SCH (07:55)
[2020-03-29] MEDS: ATORVASTATIN 20 MG TAB PO SCH (07:56)
[2020-03-29] MEDS: MAGNESIUM OXIDE 400 MG TAB (MAG-OX) PO SCH (07:56)
[2020-03-29] MEDS: POTASSIUM CHLORIDE 10 MEQ SR TABLET PO SCH (07:56)
[2020-03-29] MEDS: HumaLOG INSULIN (NovoLOG) PER UNIT SC SCH ×2 (07:57→12:30)
[2020-03-29 07:58] VITALS: BP 108/51
[2020-03-29] MEDS: lisinopriL 10 MG TAB PO SCH (07:58)
[2020-03-29] MEDS ORDERED: INSUHUMDS SC ×2 (09:32)
[2020-03-29] MEDS ORDERED: LEVE1INJ5 SC (09:32)
--- NOTE | 2020-03-29 10:49 | DS.PDOC ---
Discharge Summary General Date of Admission Mar 28, 2020 at 07:03 Date of Discharge 03/29/20 Discharge Summary DISCHARGE DIAGNOSES: Insulin induced hypoglycemia Acute metabolic encephalopathy due to hypoglycemia Reactive leukocytosis Hypertension Insulin -Dependent, type 2 diabetes Hyperlipidemia Iron deficiency anemia Depression History of uterine cancer DISCHARGE MEDICATIONS: SEE BELOW Allergies: See below DISCHARGE INSTRUCTIONS: Primary care physician appointment within 5 days of hospital discharge checked her fingerstick prior to giving herself insulin. Hold her insulin for glucose less than 90. Check fingersticks before every meal AND HS, as well as postprandial and bring a diary see her primary care physician to adjust both basal postprandial insulin requirement. HOSPITAL COURSE: 69-year-old female with history of diabetes, hypertension, hypercholesterolemia, uterine cancer, status post , hysterectomy was in her usual state of health until early this morning when she was found to have a glucose of 20 at home with diaphoresis, weakness, confusion prompting her to come to the emergency room. Patient was recently started on twice a day insulin but had been on Levemir insulin for many years. She went to bed, took her medications last night she woke up in the middle of the night complaining of shakiness and diaphoresis. She has otherwise denied any recent history of fever, chills, shortness of breath, nausea, vomiting, abdominal pain, dysuria, urgency, frequency, changes in rocío etite, changes in mood, sore throat, rhinorrhea bright red blood per rectum, melena, black tarry stools, chest pain, pressure, tightness, lightheadedness, dizziness or near syncope. In the ER, her glucose was 54. She was given D50 and D5 half-normal 200 mL per hour hospitals was called to admit for persistent hypoglycemia secondary to insulin. Patient was evaluated for acute infection and had negative urinalysis, chest x-ray and blood cultures were taken. White count was elevated at 18,000 without fever. She was negative for coronavirus 19, and pro-calcitonin was 0.18. No Antibiotic was started. Hypoglycemia secondary to insulin -Patient's Levemir has been discontinued temporarily -Patient has been kept on D5 half normal saline at 200 mL seven-hour enter her glucose was stable at over 100 -Her fingersticks were initially every 4 hourly until her glucose level was stabilized and changed every before meals and at bedtime -She has been started on a consistent carbohydrate diet. fingersticks every before meals at bedtime with sliding scale coverage for now -PRO- calcitonin was 0.18 and unlikely to have a bacterial infection as cause for patient's hypo-glycemia. She remains afebrile. Differential despite leukocytosis of 18 -No empiric antibiotics given Reactive leukocytosis -UA and chest x-ray were unremarkable -Patient had no acute infectious symptoms -No empiric antibiotics were given -Pro-calcitonin was 0.18 Type 2 diabetes, uncontrolled -With episodes of severe hypoglycemia requiring D5 half-normal saline at 200 mL per hour -Consistent carbohydrate diet, sliding scale before every meal CHS and fingerstick coverage for now -Patient's Levemir insulin has been decreased to 10 units every morning -She is kept on insulin sliding scale. Encouraged to keep a pre-and postprandial fingerstick diary to be reviewed by her primary care physician on her follow-up appointment. hypertension, -Controlled on lisinopril hypercholesterolemia, -Chronic -On Lipitor Depression -No active suicidal, homicidal ideation or plan -Continued on Cymbalta Iron deficiency Anemia -on supplemental iron and Colace History of uterine cancer, status post , hysterectomy Diet: consistent carbs dvt prophylaxis: compression stockings code status: full code. DISCHARGE PHYSICAL EXAMINATION: VITAL SIGNS: See below GENERAL APPEARANCE: Awake, alert, oriented 3, answering questions appro priately. Appears her stated age, in no distress HEENT: Face is symmetric. Tongue is midline. Dry mucous membranes. No JVD, thyromegaly or cervical lymphadenopathy CARDIOVASCULAR: S1, S2, sinus rhythm, no murmurs, rubs or gallops LUNGS: Clear to auscultation. No wheezing, rales or rhonchi ABDOMEN: Obese, soft, nontender, nondistended, positive bowel sounds in 4 quadrants EXTREMITIES: No cyanosis, clubbing or pitting edema DISCHARGE LABORATORY DATA: See below. IMAGING: CXR INDICATION: HYPOGLYCEMIA WBC 18 R/O PNA. COMPARISON: Comparison chest x-ray January 18, 2020. TECHNIQUE: Two views.. FINDINGS: The lungs are well inflated and free of infiltrate. The pleural angles are sharp. The heart size is normal. Pulmonary vasculature is not increased. No significant bony abnormality is seen. Monitoring electrodes are seen overlying the chest on the frontal view. IMPRESSION: Negative chest x-ray. <Electronically signed by Juan David Griffin > 03/28/20 0752 MICROBIOLOGY: Please see below. TIME SPENT ON DISCHARGE 30 MINUTES Vital Signs/I&Os Vital Signs Date Time Temp Pulse Resp B/P (MAP) Pulse Ox O2 Delivery O2 Flow Rate FiO2 03/29/20 07:58 108/51 03/29/20 06:00 96.9 75 17 98 Room Air I&O- Last 24 Hours up to 6 AM 03/29/20 05:59 Intake Total 2847 ml Output Total 1200 ml Balance 1647 ml Laboratory Data Labs 24H Laboratory Tests 2 03/28/20 11:00: Bedside Glucose (Misc Panel) 209H 03/28/20 13:41: Bedside Glucose (Misc Panel) 206H 03/28/20 14:27: Anion Gap 4L, Glomerular Filtration Rate > 60.0, Calcium Level 8.9 03/28/20 16:29: Bedside Glucose (Misc Panel) 116H 03/28/20 17:43: Anion Gap 7L, Glomerular Filtration Rate > 60.0, Calcium Level 9.0 03/28/20 21:05: Bedside Glucose (Misc Panel) 285H 03/29/20 06:14: Bedside Glucose (Misc Panel) 188H CBC/BMP Laboratory Tests 03/28/20 14:27 03/28/20 17:43 FSBS Laboratory Tests Test 03/28/20 11:00 03/28/20 13:41 03/28/20 16:29 03/28/20 21:05 Range/Units Bedside Glucose (Misc Panel) 209 206 116 285 80-115 MG/DL Test 03/29/20 06:14 Range/Units Bedside Glucose (Misc Panel) 188 80-115 MG/DL Microbiology Microbiology 03/28/20 Blood Culture - Preliminary, Resulted No growth after 24 hours . All specim... 03/28/20 Blood Culture - Preliminary, Resulted No growth after 24 hours . All specim... 03/28/20 Urine Culture, Received Pending Discharge Medications Scheduled Aspirin (Aspirin EC) 81 Mg Tab, 81 MG PO DAILY, (Reported) Dicyclomine HCl (Dicyclomine HCl) 20 Mg Tablet, 20 MG PO DAILY, (Reported) Docusate Sodium (Docusate Sodium) 100 Mg Capsule, 100 MG PO BID, (Reported) TAKES AM/NOON, HOLD FOR LOOSE STOOLS Duloxetine Hcl (Duloxetine HCl) 60 Mg Capsule.dr, 60 MG PO DAILY, (Reported) Ferrous Gluconate (Ferrous Gluconate) 324 Mg Tablet, 324 MG PO BID, (Reported) Indapamide (Indapamide) 1.25 Mg Tab, 1.25 MG PO DAILY, (Reported) Insulin Detemir (Levemir Flextouch) 100 Unit/1 Ml Insuln.pen, 10 UNIT SC QAM Insulin Human Lispro (Humalog) 100 Unit/1 Ml Vial, 0 UNITS SC AC Insulin Human Lispro (Humalog) 100 Unit/1 Ml Vial, 0 UNITS SC QHS Insulin Lispro (Humalog) 100 Unit/1 Ml Cartridge, 5 UNITS SC BID, (Reported) WITH DINNER AND AT BEDTIME Lisinopril (Lisinopril) 10 Mg Tab, 10 MG PO DAILY, (Reported) Lovastatin (Lovastatin) 40 Mg Tab, 40 MG PO BID, (Reported) Magnesium Oxide (Magnesium Oxide) 400 Mg Tablet, 400 MG PO DAILY, (Reported) Metformin HCl (Metformin HCl) 1,000 Mg Tablet, 1,000 MG PO QHS, (Reported) Pantoprazole Sodium (Pantoprazole Sodium) 40 Mg Tablet.dr, 40 MG PO DAILY, (Reported) Pioglitazone HCl (Pioglitazone HCl) 45 Mg Tab, 45 MG PO DAILY, (Reported) Potassium Chloride (Klor-Con M10) 10 Meq Tabcr, 10 MEQ PO DAILY, (Reported) Scheduled PRN Albuterol Sulfate (Proair Hfa) 8.5 Gm Hfa.aer.ad, 2 PUFF INH Q6H PRN for SHORTNESS OF BREATH, (Reported) Ipratropium/Albuterol Sulfate (Combivent Respimat 20-100 Mcg) 4 Gm Mist.inhal, 2 PUFF INH QID PRN for SOB/WHEEZING, (Reported) Allergies Coded Allergies: adhesive tape (Verified Allergy, Unknown, RASH, 08/30/19) MICHEAL LITTLE MD Mar 29, 2020 10:49
== END 2020-03-29 15:48 | disposition home health service (06) | DRG 639 ==
LOC: M ED 03:17 → M ED INP 07:03 → M MSPAV 14:48
PROVIDERS: ADMIT General Practice; ATTEND General Practice
DX: E11.649 Type 2 diabetes mellitus with hypoglycemia without coma (principal); I10 Essential (primary) hypertension; E78.00 Pure hypercholesterolemia, unspecified; E11.65 Type 2 diabetes mellitus with hyperglycemia; F32.9 Major depressive disorder, single episode, unspecified; D50.9 Iron deficiency anemia, unspecified; Z79.82 Long term (current) use of aspirin; Z79.4 Long term (current) use of insulin; Z79.899 Other long term (current) drug therapy; Z91.048 Other nonmedicinal substance allergy status; Z20.822 Contact with and (suspected) exposure to COVID-19; Z85.42 Personal history of malignant neoplasm of other parts of uterus; Z90.710 Acquired absence of both cervix and uterus; T38.3X5A Adverse effect of insulin and oral hypoglycemic [antidiabetic] drugs, initial encounter

== ENCOUNTER 2020-04-08 17:32 | Emergency (ER) | payer MEDICARE, OTHER ==
[~2020-04-08] VITALS: Ht 149.9 cm; Wt 85.0 kg
[~2020-04-08 17:32] MED LIST changes: +CLEN1SOL; +DICY20TA11; +DICY20TA3 PO; +DOCU100C17 PO; +DOK1CAP7; +DULO1CAP6 PO; +FERR32TA PO; +HUMA100I3 SC; +HUMA100I5; +INSUHUMDS SC; +LEVE1INJ5; +LEVE1INJ5 SC; +LISI10TA22 PO; -LISI10TA4 PO; +PANT40TA29 PO; +PROAAER10 INH
--- NOTE | 2020-04-08 18:35 | REP ---
INDICATION: DKA. COMPARISON: AP chest 03/28/2020, 01/18/2020. TECHNIQUE: AP seated portable chest FINDINGS: Of the lung vaughn are adequately inflated. There is no pleural effusion or dense consolidation. Heart shows left ventricular configuration but size may be exaggerated by AP lordotic portable technique. No vascular redistribution or edema. The aorta unchanged without gross aneurysm but some calcifications in the arch. No abnormal widening of the mediastinum. There has been previous distal clavicular excision on the right. No acute bony finding. Some degenerative changes spine and glenohumeral joints. No free air under the diaphragm. IMPRESSION: 1. AP lordotic chest somewhat exaggerating heart size without vascular redistribution or pulmonary edema. 2. No gross infiltrate, pleural effusion, mediastinal or hilar acute abnormality nor acute bony finding. <Electronically signed by Nick Coombs > 04/08/20 7960
[2020-04-08 19:13] LABS: VENOUS BASE EXCESS 4.7 (-2.0-2.0); VENOUS HCO3 30.7 MEQ/L (23.0-27.0); VENOUS O2 SATURATION 74.1 % (60.0-80.0); VENOUS PARTIAL PRESSURE CO2 52.7 mmHg (38.0-50.0); VENOUS PH 7.383 UNITS (7.330-7.430); VENOUS STANDARD HCO3 28.2 MEQ/L; VENOUS TOTAL CO2 32.3 MEQ/L (24.0-28.0)
--- OUTSIDE RECORDS SUMMARY | 2020-04-08 19:14 | CCD | Continuity of Care Document ---
Author Author Elsy HUNT PA-C Organization Unknown Address [address] [place] [address] Phone [phone] Care Team Providers Care Waste Minimization Technician Name Role Phone Edgar Ross AUTM [phone] Jamison Quiros MD AUTM [phone] Problems Active Problems Provider Date Type 2 [...] Capsules ever y day Unknown Calcium 600+D [id number] Table ts 1 by mouth twice a [...] Available Procedures Date Code Description Status 03/12/2020 74945 X-Ray Finger(S) Two Views Comple nena 02/27/2020 18278 X-Ray Finger(S) Two Views Comple nena Medical Devices Description No Information Available Encounters Type Date Location Provider Dx Diagnosis Office Visit 03/12/2020 10:30a Dudleybin Hunt PA-C S6 2.646D Nondisp fx of prox phalanx of r lit fngr, 7thD Office Visit 02/27/2020 10:30a [place] Christophe Hunt PA-C S6 2.646D Nondisp fx of prox phalanx of r lit fngr, 7thD Office Visit 01/22/2020 5:45p [place] ERIK Dowd S62.646 A Nondisp fx of [...]
--- OUTSIDE RECORDS SUMMARY | 2020-04-08 19:14 | CCD | Continuity of Care Document ---
Author Author Elsy REYES M.D. Organization Unknown Address [address] [place] [address], [address] [place] [address] Phone [phone] Care Team Providers Care Compounding Scaler Name Role Phone Andre Acevedo M.D. AUTM [phone] Jamison Quiros M.D. AUTM [phone] Problems Active Problems Provider Date Essential hypertension Onset: 11/29/2015 Social History Type Date Description Comments Sex Unknown Smokeless Tobacco Never Used Smokeless Tobacco ETOH Use Denies alcohol use Tobacco Use Start: Unknown Non Smoker Recreational Drug Use Denies Drug Use Allergies, Adverse Reactions, Alerts Active Allergies Reaction Severity Comments Date Tape white tape 11/29/2015 Medications Active Medications SIG Qnty Indications Ordering Provide r Date Dicyclomine HCL 10mg Capsules 1 tablet by mouth before lunch and dinner ( for course of 8 weeks - for abdominal cramping) 120caps D50.9 Evan Reyes M.D. 12/13/2019 Dok 100mg Capsules Take One Capsule By Mouth Twice A Day Before Meals Avoid If Having Diarrhea 180caps D50. 9 Evan Reyes M.D. 11/19/2019 Iron (Ferrous Sulfate) 142(45Fe) mg Tablets ER 1 tab by mouth twice a day after meals (course for 3 months). 60 tabs D50Maryanne Reyes M.D. 03/20/2019 Pantoprazole Sodium 40mg Tablets D R daily -- one tablet in morning 1/2 hour before breakfast 60tabs D50.Darin Reyes M.D. 12/01/2018 Magnesium Citrate 400mg Powder qd 1units Marianna Christopher M.D. 11/29/2015 Calcium-Folic Acid Plus D 1342-1mg Wafer qd Marianna Christopher M.D. 11/29/2015 Levemir 40Units Solution farooq Christopher M.D. 11/29/2015 Pioglitazone HCL 30mg Tablets 40mg-1tab po qd Unknown Metformin HCL 1000mg Tablets 1tab po qd Unknown Eye Drops 0.012-0.2% Solution bid Unknown Combivent 18-103mcg/Act Aerosol 2 puffs qid/prn Unknown Dulera 200-5mcg/Act Aerosol 2 puff twice a day Unknown Lovastatin 40mg Tablets 2tabs po qd Unknown Potassium Chloride ER 10Meq Capsul es ER 1tab po qd Unknown Indapamide 1.25mg Tablets 1ta b po qd Unknown Lisinopril 10mg Tablets once a day Unknown Aspirin Ec 81mg Tablets DR 1/ day Unknown Immunizations Description No Information Available Vital Signs Date Vital Result Comment 03/18/2020 9:03am BP Systolic 136 mmHg BP Diastolic 74 mmHg Height 59 inches 4'11" Weight 185.00 lb BMI (Body Mass Index) 37.4 kg/m2 [place] Body Weight 100 lb Weight 83.916 kg BSA (Body Surface Area) 1.78 m2 12/13/2019 12:17pm BP Systolic 128 mmHg BP Diastolic 66 mmHg Height 59 inches 4'11" Weight 191.00 lb BMI (Body Mass Index) 38.6 kg/m2 [place] Body Weight 100 lb Weight 86.638 kg BSA (Body Surface Area) 1.81 m2 Results Test Acquired Date Facility Test Result H/L Range Note CBC With Differential 02/27/2020 [facility] [address] [place] [address] [phone] White Blood Count 6.3 10 Normal 4.0-10.0 Red Blood Count 4.50 10 Normal 4.00-5.40 Hemoglobin 10.9 g/dL Low 12.0-15.5 Hematocrit 36.6 % Normal 36.0-47.0 Mean Corpuscular Volume 81.3 fl Normal 80.0-96.0 Mean Corpuscular Hemoglobin 24.2 pg Low 27.0-33.0 Mean Corpuscular HGB Conc 29.8 g/dL Low 32.0-36.5 Red Cell Distribution Width 17.3 % High 11.5-14.5 Platelet Count, Automated 356 10 Normal 150-450 Neutrophils % 52.7 % Normal 36.0-66.0 Lymph % 37.0 % Normal 24.0-44.0 Jay % 6.2 % High 0.0-5.0 Eos % 3.2 % High 0.0-3.0 Baso % 0.6 % Normal 0.0-1.0 Immature Granulocyte % 0.3 % Normal 0-3.0 Nucleated Red Blood Cell % 0.0 % Normal 0-0 Neutrophils # 3.3 10 Normal 1.5-8.5 Lymph # 2.3 10 Normal 1.5-5.0 Jay # 0.4 10 Normal 0.0-0.8 Eos # 0.2 10 Normal 0.0-0.5 Baso # 0.0 10 Normal 0.0-0.2 Total Iron Binding Capacit 02/27/2020 [facility] Lab [address] [place] [id number] [phone] Iron (Fe) 30 g/dL Low 50-170 Total Iron Binding Capacity 433 g/dL Normal 250-450 Percent Saturation 6.9 % Low 13.2-45.0 Laboratory test finding 02/27/2020 [facility] Lab [address] [place] [address] [phone] Ferritin 8 NG/ML Normal 8-252 BUN & Creatinine (SMC) 02/27/2020 [facility] Lab [address] [place] [address] [phone] Blood Urea Nitrogen 19 mg/dL High 7-18 Creatinine With GFR 02/27/2020 [facility] Main Lab [address] [place] [address] [phone] Creatinine For GFR 1.05 mg/dL Normal 0.55-1.30 Glomerular Filtration Rate 55.3 Normal >45 1 1 Units are mL/min/1.73 m2 Chronic Kidney Disease Staging per NKF: Stage I & II GFR >=60 Normal to Mildly Decreased Stage III GFR 30-59 Moderately Decreased Stage IV GFR 15-29 Severely Decreased Stage V GFR <15 Very Little GFR Left ESRD GFR <15 on YARD COORDINATOR Procedures Description No Information Available Medical Devices Description No Information Available Encounters Type Date Location Provider Dx Diagnosis Office Visit 12/13/2019 11:30a [facility] Michael Reyes M.D. D50.9 Iron deficiency anemia, unsp ecified R10.30 Lower abdominal pain, unspec ified K64.8 Other hemorrhoids Assessments Date Code Description Provider 12/13/2019 D50.9 Iron deficiency anemia, unspecif ied Evan Reyes M.D. 12/13/2019 R10.30 Lower abdominal pain, unspecifie d Evan Reyes M.D. 12/13/2019 K64.8 Other hemorrhoids Evan iverson M.D. Plan of Treatment 03/18/2020 - Evan Reyes M.D.* * Comments:* Impression:-- Iron Deficiency anemia ( review of prior labs in [facility] showed persistent since 2015), s/p EGD and Colonoscopy in November 2018,-- noted no active bleeding lesions. s/p Capsule enteroscopy, noted tiny non bleeding AVM, some areas obscured by poor prep, needs further work up.-- Persistent lower abdominal cramping pain with constipation -- likely related to IBS-C, -- Colonoscopy- inadequate bowel prep- recommended repeat screening in Nov 2019. * Recommendations:* -- Educated patient in detail about prior tests, procedure results and all questions answered. . -- Will restart on Iron tablet daily with colace ( to prevent constipation). -- Due to rapid intestinal transit times, and cramping abdominal pain, will give low dose dicyclomine for 8 weeks and then repeat the labs and follow up in Clinic. r -- Based on the above results and clinical symptoms further management. Patient is recommended to avoid NSAIDs. -- Return to GI clinic in 3 months after the above tests.. -- Follow up with PMD for routine medical care and other age appropriate health maintenance. Functional Status Description No Information Available Mental Status Description No Information Available Referrals Description No Information Available
--- OUTSIDE RECORDS SUMMARY | 2020-04-08 19:14 | CCD | Continuity of Care Document ---
Author Author Elsy READ DPDarrius Organization Unknown Address [address] [place] [address], [address] [place] [address] Phone [phone] Care Team Providers Care Pharmaceutical Sales Representative Name Role Phone Jamison Quiros M.D. [phone] Problems Active Problems Provider Date Acquired hallux [...] Unknown Pioglitazone HCL Unknown 00 Afluria PF [id number] Unknown Immunizations Description No Information Available Vital Signs Date Vital Result Comment 07/13/2014 10:55am Pain Level 0 02/02/2013 2:18pm Height 53 inches 4'5" Weight 150.00 lb BP Systolic 125 mmHg BP Diastolic 65 mmHg Heart Rate 75 /min BMI (Body Mass Index) 37.5 kg/m2 Results Description No Information Available Procedures Date Code Description Status 03/08/2020 51039 Debridement 6-10 Nails Electric Completed 12/28/2019 58751 Debridement 6-10 Nails Electric Completed 10/18/2019 84161 Debridement 6-10 Nails Electric Completed 10/18/2019 54941 Paring/Cutting Benign Single Les n Completed Medical Devices Description No Information Available Encounters Description No Information Available Assessments Date Code Description Provider 03/08/2020 B35.1 Tinea unguium Ricco Read, SIOBHAN 03/08/2020 E10.59 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 Ricco Read DPM 12/28/2019 B35.1 Tinea unguium Ricco Read, SIOBHAN 12/28/2019 E10.59 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 Ricco Read, SIOBHAN 12/06/2019 E10.59 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 Ricco Read DPM 10/18/2019 B35.1 Tinea unguium Ricco Read, SIOBHAN 10/18/2019 E10.59 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 Ricco Read DPM 10/18/2019 L84 Corns and callosities Ricco Read DPM Plan of Treatment Future Appointment(s):* 05/17/2020 10:00 am - Ricco Read DPM at [facility] Functional Status Description No Information Available Mental Status Description No Information Available Referrals Description No Information Available
--- OUTSIDE RECORDS SUMMARY | 2020-04-08 19:17 | CCD ---
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 Pile Driving Name Role Phone Ramon KINGSTON MD Unavailable [...] KRISTINE ZAPATA Unavailable Unavailable VASHTI H KRISTINE MD Unavailable Unavailable VASHTI H KRISTINE ZAPATA Unavailable Unavailable VASHTI H KRISTINE ZAPATA Unavailable Unavailable VASHTI H KRISTINE ZAPATA Unavailable Unavailable VASHTI H KRISTINE ZAPATA Unavailable Unavailable VASHTI H KRISTINE ZAPATA Unavailable Unavailable VASHTI H KRISTINE ZAPATA Unavailable Unavailable VASHTI H KRISTINE ZAPATA Unavailable Unavailable VASHTI H KRISTINE ZAPATA Unavailable Unavailable VASHTI H KRISTINE MD Unavailable Unavailable VASHTI H KRISTINE ZAPATA Unavailable Unavailable VASHTI H KRISTINE ZAPATA Unavailable Unavailable VASHTI H KRISTINE MD Unavailable Unavailable VASHTI, H KRISTINE MD Unavailable Unavailable VASHTI, H KRISTINE MD Unavailable Unavailable VASHTI H KRISTINE ZAPATA Unavailable Unavailable VASHTI H KRISTINE ZAPATA Unavailable Unavailable VASHTI, H KRISTINE MD Unavailable Unavailable VASHTI H KRISTINE MD Unavailable Unavailable VASHTI H KRISTINE ZAPATA [...] Unavailable VASHTI H KRISTINE ZAPATA Unavailable Unavailable Kevin, D Jaime PA Unavailable [...] Unavailable Kevin, D Jaime PA Unavailable Unavailable Kvein, D Jaime PA Unavailable Unavailable Kevin, D [...] Ramon KINGSTON MD Unavailable Unavailable Hunt, M Barratt PA Unavailable [...] Unavailable Hunt, M Barratt PA Unavailable Unavailable Marilee M Barratt PA Unavailable Unavailable Hunt, M [...] is protected by Article 27-F of the [facility] Public Health law. If you continue you may have access to information: Regarding HIV / AIDS; Provided by facilities licensed or operated by the [facility] Office of Mental Health; or Provided by the [facility] Office for People With Developmental Disabilities. If such information is present, then the following [facility] mandated warning applies: This information has been [...] law may result in a fine or fci sentence or both. A general authorization for the release of medical or other information is NOT sufficient authorization for further disc losure. Allergies and Adverse Reactions Type Description Substance Reaction Status Data Source(s ) Drug Allergy NKDA NKDA [facility] Family History Family Member Name Family Member Gender Family Member Status Date o f Status Description Data Source(s) Unknown Unknown Problem [facility] ([facility]) father,mother,sister Unknown Unknown Problem [facility] ([facility]) Unknown Female Problem [facility] ([facility]) Unknown Female Problem [facility] ([facility]) Unknown Female Problem [facility] ([facility]) Unknown Female Problem [facility] ([facility]) Unknown Female Problem [facility] ([facility]) Unknown Female Problem [facility] ([facility]) Unknown Female Problem [facility] ([facility] Encounters Encounter Providers Location Date Indications Data Source(s ) OFFICE OUTPATIENT VISIT 15 MINUTES Attender: Christophe VALENCIA Physical Therapy 03/12/2020 09:30:00 AM EST MED[facility] ([facility]) OFFICE OUTPATIENT VISIT 15 MINUTES Attender: Christophe VALENCIA Physical Therapy 02/27/2020 09:30:00 AM EST [facility] ([facility]) OFFICE OUTPATIENT VISIT 15 MINUTES Attender: DEBBY VALENCIA Ph ysical Therapy 01/22/2020 04:45:00 PM EST [facility] ([facility]) Outpatient Attender: JAIME Silva Prim marcial 01/21/2020 12:15:00 PM EST [facility] ([facility], [facility]) Emergency Attender: MICHAEL BRUNER MDConsultant: KRISTINE OSWALD MD 12/31/2019 03:26:00 PM EST - 12/31/2019 06:17:00 PM EST [facility] Patient discharged. Outpatient Attender: Jaime Vasques Office 06/2019 12:15:00 PM EST [facility] ([facility] Outpatient Attender: CATHIE Barnes/Farideh/Levi velasquez/Sheila 12/13/2019 11:30:00 AM EDT MED[facility] ([facility] Outpatient Attender: KRISTINE Vasques Office 01:30:00 PM EDT [facility] ([facility] Outpatient Attender: KRISTINE Vasques Office 10:00:00 AM EDT [facility] ([facility] Outpatient Attender: KRISTINE Vasques Office 02:00:00 PM EDT [facility] ([facility] Outpatient Attender: KRISTINE Shayn Office 03:20:00 PM EDT [facility] ([facility] Outpatient Attender: KRISTINE KINGSTON MD [facility] 06/2019 10:20:00 AM EDT [facility] ([facility] Outpatient Attender: KRISTINE KINGSTON MD [facility] 10:30:00 AM EST [facility] ([facility] Outpatient Attender: Jaime VALENCIA [facility] 01:00:00 PM EST [facility] ([facility] Immunizations Vaccine Date Status Description Data Source(s) New in 2012. IIV4 11/06/2019 11:01:00 AM EDT completed [facility] ([facility] Medications Medication Brand Name Start Date [...] FOR ABDOMINAL CRAMPING SOLD: 12/20/2019 [facility] Dicyclomine Hydrochloride 10 MG Oral Capsule Dicyclomine HCL 12/13/2019 12:00:00 AM EDT ORAL active MED[facility] ([facility], ) BLOOD-GLUCOSE METER 12/08/2019 12:00:00 AM EDT misc 1 USE UP TO FOUR TIMES A DAY DIRECTED USE UP TO FOUR TIMES A DAY DIRECTED SOLD: 12/20/2019 [facility] Blood Glucose Monitoring System 12/06/2019 12:00:00 AM EDT active [facility] ([facility] Docusate Sodium 100 MG Oral Capsule [DOK] Dok 11/19/2019 12:00:0 0 AM EDT active MED[facility] ([facility], ) Aspirin 81 MG Delayed Release Oral Tablet SM Aspirin Adult L ow Strength 11/13/2019 12:00:00 AM EDT active [facility] ([facility] Magnesium Oxide 400 MG Oral Tablet Magnesium Oxide 10/23/2019 12:00 :00 AM EDT active [facility] ([facility] Onetouch Delica Plus Lancets Extra Fine 33G 10/23/2019 12:00 :00 AM EDT active [facility] ([facility] Unifine Pentips Plus 10/23/2019 12:00:00 AM EDT active [facility] ([facility] Mupirocin 0.02 MG/MG Topical Ointment Mupirocin 10/13/2019 12:00:00 AM EDT active [facility] ([facility] 2 % 10/13/2019 12:00:00 AM EDT ointment 44 APPLY TO ARM LESIONS TWO TIMES A DAY APPLY TO ARM LESIONS TWO TIMES A DAY SOLD: 10/14/2019 [facility] 20 mg 08/31/2019 12:00:00 AM EDT tablet 8 TAKE TWO TABLETS BY MOUTH EVERY DAY TAKE TWO TABLETS BY MOUTH EVERY DAY SOLD: 08/31/2019 [facility] Onetouch Verio 07/07/2019 12:00:00 AM EDT act mario MED[facility] ([facility] duloxetine 60 MG Delayed Release Oral Capsule Duloxetine HCL 05/17/2019 12:00:00 AM EDT ORAL active MED[facility] ([facility] 140 mg (45 mg iron) 04/10/2019 12:00:00 AM EST tablet extend ed release 60 ONE BY MOUTH TWICE A DAY AFTER MEALS ONE BY MOUTH TWICE A DAY AFTER MEALS SOLD: 04/10/2019 [facility] Docusate Sodium 100 MG Oral Capsule Docusate Sodium 03/31/2019 1 2:00:00 AM EST active MED[facility] ( [facility], ) 24 HR ferrous sulfate 142 MG Extended Release Oral Tab let Iron (Ferrous Sulfate) 03/20/2019 12:00:00 AM EST ORAL active MED[facility] ([facility], ) 250 mg 03/10/2019 12:00:00 AM EST tablet 6 TAKE TWO TABLETS BY MOUTH AT ONCE ON THE FIRST DAY THEN TAKE ONE DAILY THEREAFTER TAKE TWO TABLETS BY MOUTH AT ONCE ON THE FIRST DAY THEN TAKE ONE DAILY THEREAFTER SOLD: 03/13/2019 [facility] Guaifenesin 20 MG/ML Oral Solution Guaifenesin 03/10/2019 12:00:00 AM EST ORAL completed [facility] ([facility] Azithromycin 250 MG Oral Tablet Azithromycin 03/10/2019 12:00:[address] ORAL completed [facility] ([facility] pantoprazole 40 MG Delayed Release Oral Tablet Pantoprazole Sodium 03/08/2019 12:00:00 AM EST active M EDENT ([facility] POLYETHYLENE GLYCOL 3350 142 MG/ML Oral Solution [Miralax] M iralax 02/21/2019 12:00:00 AM EST active M EDENT ([facility], ) Bisacodyl 5 MG Delayed Release Oral Tablet Bisacodyl Ec 02/21/2019 12:00:00 AM EST completed [facility] ([facility], ) Docusate Sodium 100 MG Oral Capsule [Colace] Colace 12:00:00 AM EST ORAL completed MED[facility] ([facility], ) Insurance Providers Payer name Policy type / Coverage type Policy ID Covered green party ID Covered green party's relationship to reynoso Policy Reynoso Plan Information R [facility] [id number] 2 [id number] MEDICARE COMPLETE [id number] SP [id number] UMR O [id number] S [id number] MEDICARE COMPLETE-UHC O [id number] S [id number] [facility] MEDICARE COMPLETE - O/P [id number] 18 [id number] R [facility] [id number] HU2 [id number] R O [id number] S [id number] [employer] Commercial [id number] Self [id number] [place] Medigap Part B [id number] Family Dependent [id number] [facility] Commercial [id number] Family Dependent [id number] Vontuc[employer] uGift Commercial [id number] Self [id number] Taggify [id number] Self [id number] Medicare Natl Gov't Servi Medigap Part B [id number] Self [id number] Umr/Uhc/Pomco Medigap Part B [id number] Family Dependent [id number] United HLCR/Medicare Solu Commercial [id number] Self [id number] Medicare Natl Gov't Servi Medigap Part B [id number] Self [id number] Umr/Uhc/Pomco Medigap Part B [id number] Family Dependent [id number] United HLCR/Medicare Solu Commercial [id number] Self [id number] Medicare Natl Gov't Servi Medigap Part B [id number] Self [id number] Umr/Uhc/Pomco Medigap Part B [id number] Family Dependent [id number] L[employer] HLCR/Medicare Solu Commercial [id number] Self [id number] Medicare Dme Supplies Medigap Part B [id number] Self [id number] [place] Medigap Part B [id number] Self [id number] [place] (pr) Medigap Part B [id number] Family Dependent [id number] Umr (pr) Medigap Part B [id number] Self [id number] [employer] Commercial [id number] Self [id number] [place]/Umr (Old) Medigap Part B [id number] Family Dependent [id number] Medicare Natl Govt Servic Medicare Primary [id number] Self [id number] Umr (New [place]) Medigap Part B [id number] Family Dependent [id number] [facility] [employer] Commercial [id number] Self [id number] Ghi/Emblem Health Medigap Part B [id number] Self [id number] [employer] uGift Commercial [id number] Self [id number] Medicare Dme Supplies Medigap Part B [id number] Self [id number] [place] Medigap Part B [id number] Self [id number] [place] (pr) Medigap Part B [id number] Family Dependent [id number] Umr (pr) Medigap Part B [id number] Self [id number] Medicare Dme Supplies Medigap Part B [id number] Self [id number] [place] Medigap Part B [id number] Self [id number] [place] (pr) Medigap Part B [id number] Family Dependent [id number] Umr (pr) Medigap Part B [id number] Self [id number] United [employer] Commercial [id number] Self [id number] Medicare Natl Gov't Servi Medigap Part B [id number] Self [id number] Umr/Uhc/Pomco Medigap Part B [id number] Family Dependent [id number] United HLCR/Medicare Solu Commercial [id number] Self [id number] UMR O [id number] P [id number] MEDICARE COMPLETE-UHC O [id number] S [id number] Pom[place]/Umr (Old) Medigap Part B [id number] Family Dependent [id number] Medicare Natl Govt Servic Medicare Primary [id number] Self [id number] Medicare Natl Gov't Servi Medigap Part B [id number] Self [id number] Umr/Uhc/Pomco Medigap Part B [id number] Family Dependent [id number] United HLCR/Medicare Solu Commercial [id number] Self [id number] V[employer] Commercial [id number] Self [id number] Umr/Uhc/Pomco Medigap Part B [id number] Family Dependent [id number] Medicare Natl Gov't Servi Medigap Part B [id number] Self [id number] United HLCR/Medicare Solu Commercial [id number] Self [id number] Pom[place]/Umr (Old) Medigap Part B [id number] Family Dependent [id number] Medicare Natl Govt Servic Medicare Primary [id number] Self [id number] Umr (as Of 06/22/2017) Medigap Part B [id number] Family Depende nt [id number] Pom[place]/Umr (Old) Medigap Part B [id number] Family Dependent [id number] Medicare Natl Govt Servic Medicare Primary [id number] Self [id number] V[employer]uc[employer] Commercial [id number] Self [id number] [place] Medigap Part B [id number] Family Dependent [id number] POMCO [id number] HU2 [id number] POMCO PPO O [id number] S [id number] Medicare Natl Gov't Servi Medigap Part B [id number] Self [id number] [place] Medigap Part B [id number] Family Dependent [id number] [address] [employer]/Medicare Solu Commercial [id number] Self [id number] [employer] Commercial [id number] Self [id number] Umr [place] Ppo Medigap Part B [id number] Family Dependent [id number] Medicare Natl Govt Servic Medicare Primary [id number] Self [id number] Umr [place] Ppo Medigap Part B [id number] Family Dependent [id number] Medicare Natl Govt Servic Medicare Primary [id number] Self [id number] Medicare Natl Gov't Servi Medigap Part B [id number] Self [id number] [employer] Commercial [id number] Family Dependent [id number] Umr Pom[place] Ppo Medigap Part B [id number] Family Dependent [id number] Medicare Natl Govt Servic Medicare Primary [id number] Self [id number] Taggify [id number] Self [id number] [place] Ppo Medigap Part B [id number] Family Dependent [id number] Medicare Natl Govt Servic Medicare Primary [id number] Self [id number] [facility] Medicare Denise Commercial [id number] Self [id number] [employer] Commercial [id number] Self [id number] [place] Ppo Medigap Part B [id number] Family Dependent [id number] Medicare Natl Govt Servic Medicare Primary [id number] Self [id number] [place] Ppo Medigap Part B [id number] Family Dependent [id number] Medicare Natl Govt Servic Medicare Primary [id number] Self [id number] [employer] Commercial [id number] Self [id number] Taggify [id number] Self [id number] [place] Medigap Part B [id number] Family Dependent [id number] Medicare [facility] Medicare Primary [id number] Self [id number] [facility] Medicare Commercial [id number] Self [id number] [place] Ppo Medigap Part B [id number] Family Dependent [id number] Medicare Natl Govt Servic Medicare Primary [id number] Self [id number] [place] Ppo Medigap Part B [id number] Family Dependent [id number] Medicare Natl Govt Servic Medicare Primary [id number] Self [id number] [employer] uGift Commercial [id number] Self [id number] [place] Medigap Part B [id number] Family Dependent [id number] Medicare Natl Gov't Servi Medicare Primary [id number] Self [id number] [place] Ppo Medigap Part B [id number] Family Dependent [id number] Medicare Natl Govt Servic Medicare Primary [id number] Self [id number] [facility] Medicare Denise Commercial [id number] Self [id number] Medicare Natl Govt Servic Medicare Primary Self Ghi/Emblem Health Medigap Part B Ppo Self Ppo [place] Ppo Commercial 335 Family Dependent [id number] [employer] uGift Commercial Self [place] Commercial Family Dependent [facility] Commercial Complete Choice Self Complete Choice Medicare Dme Supplies Medigap Part B Self [place] (pr) Medigap Part B 335 Family Dependent 335 Medicare [facility] Medicare Primary Self MEDICARE [id number] SP [id number] A MEDICARE C [id number] S [id number] A [place] Medigap Part B Family Dependent Medicare Natl Gov't Servi Medicare Primary Self [employer] [id number] HU2 [id number] [employer] [id number] SP [id number] GHI P [id number] S [id number] Problems, Conditions, and Diagnoses Code Display Name Description Problem Type Effective Dates Data Source(s) Corns and callosities Corns and callosities Problem 10/24/2019 12:00:00 AM EDT [facility] ([facility] [id number] Personal history of nicotine dependence Personal history of nicotine dependence Diagnosis 12/31/2019 03:26:00 PM [facility] Z7984 custodial (current) use of oral hypoglyc emic drugs custodial (current) use of oral hypoglycemic drugs Diagnosis 12/31/2019 03:26:00 PM [facility] Z7982 custodial (cu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 custodial (cu 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 Diagnosis 12/31/2019 03:26:00 PM [facility] I10 Essential (primary) hypertension Essential (primary) h ypertension Diagnosis 12/31/2019 03:26:00 PM [facility] E785 Hyperlipidemia, unspecified Hyperlipidemia, unspecifie d Diagnosis 12/31/2019 03:26:00 PM [facility] E119 Type 2 diabetes mellitus without complic ations Type 2 diabetes mellitus without complications Diagnosis 12/31/2019 03:26:00 PM [facility] J9801 Acute bronchospasm Acute bronchospasm Diagnosis 09/2019 03:26:00 PM [facility] R0789 Other chest pain Other chest pain Diagnosis 12/31/2019 03 :26:00 PM [facility] Surgeries/Procedures Procedure Description Date Indications Data Source(s) RADEX FINGR MINIMUM 2 VIEWS 03/12/2020 12:00:00 AM EST [facility] ([facility] DEBRIDEMENT NAIL ANY METHOD 03/08/2020 12:00:00 AM EST [facility] ([facility] RADEX FINGR MINIMUM 2 VIEWS 02/27/2020 12:00:00 AM EST [facility] ([facility]) DEBRIDEMENT NAIL ANY METHOD 12/28/2019 12:00:00 AM EST [facility] ([facility] Electrocardiogram Complete 12/28/2019 12:00:00 AM EST [facility] ([facility] Electrocardiogram Complete 11/22/2019 12:00:00 AM EDT [facility] ([facility] Mammogram 11/15/2019 12:00:00 AM EDT M EDENT ([facility] PARING/CUTTING BENIGN HYPERKERATOTIC LESION 1 10/18/19 20 12:00:00 AM EDT [facility] ([facility] DEBRIDEMENT NAIL ANY METHOD 10/18/2019 12:00:00 AM EDT [facility] ([facility] PARING/CUTTING BENIGN HYPERKERATOTIC LESION 1 08/10/19 12:00:00 AM EDT [facility] ([facility] DEBRIDEMENT NAIL ANY METHOD 08/10/2019 12:00:00 AM EDT [facility] ([facility] Capsule Endoscopy Small Bowel 03/06/2019 12:00:[address] [facility] ([facility], ) PARING/CUTTING BENIGN HYPERKERATOTIC LESION 1 03/02/19 12:00:00 AM EST [facility] ([facility] DEBRIDEMENT NAIL ANY METHOD 03/02/2019 12:00:00 AM EST [facility] ([facility] Results ID Date Data Source [id number] 03/28/2020 06:16:00 AM EST [facility] Name Value Range Interpretation Code Description Data Leona rce(s) Supporting Document(s) SARS coronavirus 2 RNA [Presence] in Res piratory specimen by OPHELIA with probe detection NEGATIVE [facility] This lab was ordered by [facility] a nd reported by [facility]. ID Date Data Source [id number] 02/29/2020 07:44:00 PM EST [facility] Name Value Range Interpretation Code Description Data Leona rce(s) Supporting Document(s) SARS-CoV-2 (COVID 19) NEGATIVE - SARS-CoV-2 (COVID19) [facility] This lab was ordered by [facility] a nd reported by [facility]. ID Date Data Source [id number] 02/27/2020 11:39:00 AM EST [facility] ([facility], ) Name Value Range Interpretation Code Description Data Leona rce(s) Supporting Document(s) Creatinine For GFR 1.05 mg/dL 0.55-1.30 Normal (applies to non -numeric results) [facility] ([facility]) Glomerular Filtration Rate 55.3 Normal (applies to n on-numeric results) [facility] ([facility]) <content>Units are mL/min/1.73 m2</content>
<content></content>
<content>Chronic Kidney Disease Staging per NKF:</content>
<content></content>
<content>Stage I & II GFR >=60 Normal to Mildly Decreased</content>
<content>Stage III GFR 30- 59 Moderately Decreased</content>
<content>Stage IV GFR 15-29 Severely Decreased</content>
<content>Stage V GFR <15 Very Little GFR Left</content>
<content>ESRD GFR <15 on TELEMARKETING FUNDRAISER</content>
<content></content> ID Date Data Source [id number] 02/27/2020 11:39:00 AM EST [facility] ([facility]) Name Value Range Interpretation Code Description Data Leona rce(s) Supporting Document(s) Urea nitrogen [Mass/volume] in Serum or Plasma 19 mg/dL 7-18 Above high normal [facility] ID Date Data Source [id number] 02/27/2020 11:39:00 AM EST [facility] ([facility]) Name Value Range Interpretation Code Description Data Leona rce(s) Supporting Document(s) Ferritin [Mass/volume] in Serum or Plasma 8 ng/mL 8-252 Normal (applies to non- numeric results) [facility] ([facility]) ID Date Data Source [id number] 02/27/2020 11:39:00 AM EST [facility] Name Value Range Interpretation Code Description Data Leona rce(s) Supporting Document(s) Iron (Fe) 30 ug/dL 50-170 Below low normal [facility] ( [facility]) Percent Saturation 6.9 % 13.2-45.0 Below low normal [facility] ([facility]) Total Iron Binding Capacity 433 ug/dL 250-450 Norm al (applies to non-numeric results) [facility] ([facility]) ID Date Data Source [id number] 02/27/2020 11:39:00 AM EST [facility] ([facility]) Name Value Range Interpretation Code Description Data Leona rce(s) Supporting Document(s) White Blood Count 6.3 10 4.0-10.0 Normal (applies to non-numeri c results) [facility] ([facility], ) Red Blood Count 4.50 10 4.00-5.40 Normal (applies to non-numeric results) [facility] ([facility], ) Hemoglobin 10.9 g/dL 12.0-15.5 Below low normal [facility] ( [facility]) Hematocrit 36.6 % 36.0-47.0 Normal (applies to non-numeric resul ts) [facility] ([facility], ) Mean Corpuscular Volume 81.3 fl 80.0-96.0 Normal ( applies to non-numeric results) [facility] ([facility]) Mean Corpuscular HGB Conc 29.8 g/dL 32.0-36.5 Below low normal [facility] ([facility]) Mean Corpuscular Hemoglobin 24.2 pg 27.0-33.0 Below low normal [facility] Red Cell Distribution Width 17.3 % 11.5-14.5 Above high normal [facility] ([facility]) Neutrophils % 52.7 % 36.0-66.0 Normal (applies to non-numeric re sults) [facility] ([facility]) Platelet Count, Automated 356 10 150-450 Normal (applies to non-numeric results) [facility] ([facility]) Dauphin % 6.2 % 0.0-5.0 Above high normal [facility] ([facility]) Lymph % 37.0 % 24.0-44.0 Normal (applies to non-numeric resul ts) [facility] ([facility]) Eos % 3.2 % 0.0-3.0 Above high normal [facility] ([facility]) Immature Granulocyte % 0.3 % 0-3.0 Normal (applies to non-n umeric results) [facility] ([facility]) Baso % 0.6 % 0.0-1.0 Normal (applies to non-numeric resul ts) [facility] ([facility]) Lymph # 2.3 10 1.5-5.0 Normal (applies to non-numeric resul ts) [facility] ([facility]) Neutrophils # 3.3 10 1.5-8.5 Normal (applies to non-numeric re sults) [facility] ([facility]) Nucleated Red Blood Cell % 0.0 % 0-0 Normal (applies to n on-numeric results) [facility] ([facility]) Dauphin # 0.4 10 0.0-0.8 Normal (applies to non-numeric resul ts) [facility] ([facility]) Eos # 0.2 10 0.0-0.5 Normal (applies to non-numeric resul ts) [facility] ([facility]) Baso # 0.0 10 0.0-0.2 Normal (applies to non-numeric resul ts) [facility] ([facility]) ID Date Data Source [id number] 01/01/2020 10:05:00 [place] [address] RESPIRATORY CARE REPORT ==== ---------NAME------- NUMBER SEX AGE ADMIT DISC. XRAY# F/C NIDA De Souza [id number] F [id number] 12/31/19 12/31/19 [id number] JAN E/R DATE OF : 1950 M/R# [id number] #: [phone] TR-02 LOCATION: EMERGENCY DEPT EKG [id number] COMP LETE:12/31/19 16:15 CJDarrius [id number] PHYSICIAN: ZOHREH WAITE Name Value Range Interpretation Code Description Data Leona rce(s) Supporting Document(s) ID Date Data Source [id number] 01/01/2020 10:02:00 AM [place] [id number] PHONE: [phone] FAX: [phone] Name .................. : MARY De Souza Acct Number.................. : [id number] ROOM. ................. : TR-02 Number ................... : [id number] Stay type ............. : E/R Discharge Date......... ... : Admit Date ......... : 12/31/19 Admit Phys .................... : ZOHREH WAITE Date of ....... : 1950 Family Phys ................... : VASHTI Connelly Phone .................. : [phone] Age ................................ : 69 Film# .................. .:[id number] Sex ................................. : F Unsigned transcriptions are preliminary reports and do not represent a medical or legal document CHEST PORTABLE [id number] COMPLETE:12/31/19 15:38 14375 Reason(s): Chest Pain PORTABLE CHEST X-RAY: HISTORY: [...] rce(s) Supporting Document(s) ID Date Data Source [id number] 12/31/2019 03:26:00 PM EST [facility] 1 OrderSheet [facility] Emergency Department [address] [place] [address] Phone #: ext- [phone] 12/31/2019 15:23 Patient: [...] InitialedChest Portable 1 STAT 15:38 12/31/2019 16:17 Dionicio Courtney R.N.(Oxygen?(No)) Physician; Reason for Study: Chest Pain, Shortness of BreathMEDICATION/IV/DRIP/FLUID ORDERSOrder Description Priority Entered Acknowledged Initialed 2 OrderSheet [facility] Emergency Department [address] [place] [address] Phone #: ext- [phone] 12/31/2019 15:23 Patient: SARMAD HENRANDEZ Sex: F : 1950 Age: 69yAspirin PO 15:39 12/31/2019 15:44 RozChewable 81 mg Michael DahlNJanuary162 mg (NOW) Physician;DuoNeb 3 mL X2 15:49 12/31/2019 15:52 G roves,Doses: 6 mL (3 mL Michael Gibbons.N.X2 Doses) Physician;SOLU-Medrol 125 15:49 12/31/2019 15:53 Roz,mg IV X1 Dose: 125 Michael Gibbons.N.mg (X1) Physician;DuoNeb Neb Tx 3 17:03 12/31/2019 17:27 Roz,Robert (NOW) Michael Eastman R.N. Physician;GENERAL ORDERSOrder Description Priority Entered Acknowledged InitialedCardiac Monitor 15:38 12/31/2019 15:43 Roz(continuous) Michael Eastman R.N. Physician;EKG 15:38 12/31/2019 15:43 Michael Courtney R.N. Physician;Saline Lock 15:38 12/31/2019 15:43 [...] rce(s) Supporting Document(s) ID Date Data Source [id number] 12/31/2019 03:26:00 PM EST [facility] 1 Medication Reconciliation Report [facility] Emergency Department [address] [place] [address] Phone #: ext- [phone] 12/31/2019 15:23 Patient: [...] 12/31/2019 3:52:00 PM 2 Medication Reconciliation Report [facility] Emergency Department [address] [place] [address] Phone #: ext- [phone] 12/31/2019 15:23 Patient: [...] 1 inhaler. Refills: 1. Substitution permitted.Pharmacy - [facility] - [address] ; [place] [address]. . -- Physician ManoloPrednisone 10mg Tapersig: take [...] rce(s) Supporting Document(s) ID Date Data Source [id number] 12/31/2019 03:26:00 PM EST [facility] 1 Medication Administration Record [facility] Emergency Department [address] [place] [address] Phone #: ext- [phone] 12/31/2019 15:23 Patient: SARMAD HERNANDEZ Sex: F : 1950 Age: 69yWeight: 79.3 kgHeight/Length: 60 inBMI: 34.1ALLERGIES: Tape allergy Date/Time Medication Administered Medication OrderedGiven ASPIRIN CHEWABLE 81 MG [PO] Aspirin PO Chewable 81 mg 59044:44 12/31/2019 Dose: 81 mg Tablets PO mg [...] (NOW)17:27 12/31/2019 Dose: 1 unit dose Nebulizer Caron TXJaren Courtney R.N. Name Value Range Interpretation Code Description Data Leona rce(s) Supporting Document(s) ID Date Data Source [id number] 12/31/2019 03:26:00 PM EST [facility] 1 General Instructions [facility] Emergency Department [address] [place] [address] Phone #: ext- [phone] 12/31/2019 15:23 Patient: [...] 1 inhaler. Refills: 1. Substitution permitted.Pharmacy - [id number] - [address] ; [place] [address]. .Prednisone 10mg Tapersig: take 6 tabs PO [...] patient. ADDITIONAL INFORMATIONBronchospasm (Adult) 2 General Instructions [facility] Emergency Department [address] [place] [address] Phone #: ext- [phone] 12/31/2019 15:23 Patient: SARMAD HERNANDEZ Sex: F [...] you drink extra fluids. 3 General Instructions [facility] Emergency Department [address] [place] [address] Phone #: ext- [phone] 12/31/2019 15:23 Patient: [...] breath Increased wheezing or shortness of breath [id number] [employer]. [address] [place] [address], [place] [address]. All rights reserved. This information is not intended as asubstitute for professional medical care. Always follow your healthcare professional's instructions.Asthma (Adult)Asthma is a disease where the medium and small air passages within the lung go into spasm andrestrict the flow of air. Inflammation and swelling of the airways cause further blockage. During an 4 General Instructions [facility] Emergency Department [address] [place] [address] Phone #: ext- [phone] 12/31/2019 15:23 Patient: [...] better after a few 5 General Instructions [facility] Emergency Department [address] [place] [address] Phone #: ext- [phone] 12/31/2019 15:23 Patient: [...] 80%) 15 minutes after using inhaler medicine.Call [phone] if any of the following occur Trouble walking or talking because of shortness of breath If you use a peak flow meter as part of an Asthma Action Plan and you are still in the red zone (less than 50%) 15 minutes after using inhaler medicine Lips or fingernails turning gil or blue [phone] [employer]. [address] [place] [address]. All rights reserved. This information is not intended as a 6 General Instructions [facility] Emergency Department [address] [place] [address] Phone #: ext- [phone] 12/31/2019 15:23 Patient: SARMAD HERNANDEZ Sex: F : 1950 Age: 69ysubstitute for professional medical care. Always follow your healthcare professional's instructions. You have been given the following additional information: Bronchospasm (Adult) Asthma, Acute (Adult)(Electronically signed by Michael Bruner, Physician 12/31/2019 18:45) Name Value Range Interpretation Code Description Data Leona rce(s) Supporting Document(s) ID Date Data Source [id number] 12/31/2019 03:26:00 PM EST [facility] 1 Clinical Report - Nurses [facility] Emergency Department [address] [place] [address] Phone #: [phone] ext- [phone] 12/31/2019 15:23 Patient: SARMAD HERNANDEZ Sex: Lyndsey : 1950 Age: 69yTRIAGEArrived by EMS. Historian: patient. Unaccompanied. ( woke up this substernal chest pain to leftshoulder , sr on monitor per ems, fs 168 no dizziness, abd distended).Acuity: LEVEL 3.Chief Complaint: CHEST PAIN and (left shoulder).This started today. She has had difficulty breathing. Reports experiencing sweating episodes. She hashad a cough (3 days). ( wheezes, chest pain reproducable).Treatment CIRCUIT COURT JUDGE:None. --15:35 12/31/19 Fay Martinez R.N.15:24 12/31/19. BP: 148/110 taken on the left arm, while lying. MAP: 122. HR: 68. RR: 18. O2 saturation:98% on room air. Temp: 97.8 F. Pain level now: 07/01. --15:35 12/31/19 Fay Martinez R.N.Weight: 79.3 kg stated. Height/Length: 60 inches Per Pa tient. BMI: 34.1. --15:24 12/31/19 Fay Martinez R.N.MedicationsProtonix [...] R.N.ADDITIONAL SURGERIES: 2 Clinical Report - Nurses [facility] Emergency Department [address] [place] [address] Phone #: ext- [phone] 12/31/2019 15:23 Patient: SARMAD HERNANDEZ [facility]#: [id number] Sex: F : 1950 Age: 69y Appendectomy. Arm surgery. Cyst removed. D. Hysterectomy. --15:33 11/8/20 Fay Martinez R.N. History PAST MEDICAL HX: [...] plan discussed with patient. Patient has a jm-hha-kkntpqfewad (DNR) (dnr/dni). --15:36 12/31/19 Fay Martinez R.N.PHYSICAL ASSESSMENTGENERAL / NEURO / PSYCH: Alert. Oriented X 4. Appears anxious.RESPIRATORY: Respirations not labored.CVS: Normal sinus rhythm noted. 3 Clinical Report - Nurses [facility] Emergency Department [address] [place] [address] Phone #: ext- [phone] 12/31/2019 15:23 Patient: [...] Jaren Courtney R.N. Portable chest x-ray completed. (1640). --16:35 12/31/19 Jaren Courtney R.N. 17:03 12/31/19. BP: 138/56. MAP: 83. HR: 74. RR: 20. O2 saturation: 97%. Temp: 98.6 F. --17:08 12/31/19 Ashley Sears RN 17:27 12/31/2019 Duoneb Neb TX Nebulizer 1 unit dose given. --17:27 12/31/19 Jraen Courtney R.N. 4 Clinical Report - Nurses [facility] Emergency Department [address] [place] [address] Phone #: ext- [phone] 12/31/2019 15:23 Patient: [...] shown to the ED physician. --17:43 12/31/19 [place] service or work dispatcher chief, Davey, JENNY Tech1.DISPOSITION / DISCHARGE No learning barriers present. Written instructions provided in [place]. The patient was discharged by the physician. [...] rce(s) Supporting Document(s) ID Date Data Source [id number] 12/31/2019 03:26:00 PM [facility] 1 Clinical Report - Physicians/Mid Levels [facility] Emergency Department [address] [place] [address] Phone #: ext- [phone] 12/31/2019 15:23 Patient: SARMAD HERNANDEZ Sex: F : 1950 Age: 69y Time [...] roomair. Temp: 97.8 F. Pain level now: 5/10. Have been reviewed and appear to be correct. Hypertensive.Heart rate normal. Respiratory rate normal. Temperature normal. Oxygen saturation normal.Appearance: Alert. Oriented X3. Anxious. Patient in mild distress. In distress.Eyes: Pupils equal, round and reactive to light. Eyes normal inspection. 2 Clinical Report - Physicians/Mid Levels [facility] Emergency Department [address] [place] [address] Phone #: ext- [phone] 12/31/2019 15:23 Patient: [...] 12/31/2019 17:39) In [place] [address] PHONE: [phone] FAX: [phone] Name .................. : MARY De Souza Acct Number.................. : [id number] ROOM. ................. : TR-02 MR Number ................... : [id number] Stay type ............. : E/R Discharge Date......... ... : Admit Date ......... : 12/31/19 Admit Phys .................... : ZOHREH WAITE Date of ....... : 1950 Family Phys ................... : VASHTI S Phone .................. : [phone] Age ..................... ........... : 69 Film# .................. .:[id number] Sex ................................. : F Unsigned transcriptions are preliminary reports and do not represent a medical or legal document CHEST PORTABLE [id number] COMPLETE:12/31/19 15:38 41309 Reason(s): Chest Pain Shortness of Breath PORTABLE CHEST X-RAY: HISTORY: Chest pain. COMPARISON: None. FINDINGS: Normal heart size and pulmonary vessels. Clear lungs. No pleural effusions. No acute or focal osseous abnormal. IMPRESSION: No active disease is seen in the chest. 3 Clinical Report - Physicians/Mid Levels [facility] Emergency Department [address] [place] [address] Phone #: ext- [phone] 12/31/2019 15:23 Patient: SARMAD HERNANDEZ Sex: F : 1950 Age: 69y Electronically Reviewed and Signed By SABINE CALLEJAS APM Transcribe Initials: HAZEL , Transcribe Date: 12/31/19 17:35, Dictation Date: <<REPDIST>> Page 1of 1Urinalysis: (POONAM: 12/31/2019 16:05) ( [facility] 12/31/2019 16:31) Final results Test Result Flag [...] FEW (NORMAL: NONEBNP: (POONAM: 12/31/2019 15:35) ( [facility] 12/31/2019 16:27) Final results Test Result Flag Units (Reference) BNP 144 H PG/ML (0 - 125)CBC w Diff: (POONAM: 12/31/2019 15:35) ( [facility] 12/31/[facility] 16:13) Final results Test Result Flag [...] 40.0) 4 Clinical Report - Physicians/Mid Levels [facility] Emergency Department [address] [place] [address] Phone #: ext- [phone] 12/31/2019 15:23 Patient: SARMAD HERNANDEZ Sex: F [...] Male GFR Interprentation 20-49 yrs >60 mL/min Xlffck37-99 yrs >56 mL/min Normal 60-69 yrs >49 mL/min Normal 70-79yrs>42 mL/min Normal 80 and above >35 mL/min Normal Female GFRInterpretation 20-39 yrs >60 mL/min Normal 40-49 yrs >58 mL/minNormal 50-59 yrs >51 mL/min Normal 60-69 yrs >45 mL/min Jptqbq77-27 yrs >39 mL/min Normal 80 and above [...] T. 5 Clinical Report - Physicians/Mid Levels [facility] Emergency Department [address] [place] [address] Phone #: ext- [phone] 12/31/2019 15:23 Patient: [...] inhaler. Refills: 1. Substitution permitted. Pharmacy - [facility] - [address] [facility] ; [place] [address]. . Prednisone 10mg Taper sig: take 6 tabs PO each day for 2 days, then Take 5 tabs PO each day for 2 days, then Take 4 tabs PO each day for 2 days, then Take 3 tabs PO each day for 2 days, then 6 Clinical Report - Physicians/Mid Levels [facility] Emergency Department [address] [place] [address] Phone #: shn- [phone] 12/31/2019 15:23 Patient: SARMAD HERNANDEZ Sex: F [...] rce(s) Supporting Document(s) ID Date Data Source [id number] 12/31/2019 04:05:00 PM EST [facility] ([facility] Name Value Range Interpretation Code Description Data Leona rce(s) Supporting Document(s) Urinalysis Laboratory test result ME D[facility] ([facility] SOURCE: Clean Catch Clarity Laboratory test result [facility] ([facility] SOURCE: Clean Catch Source Laboratory test result [facility] ([facility] SOURCE: Clean Catch Color Laboratory test result [facility] ([facility] SOURCE: Clean Catch Glucose 250 Abnormal (applies to non-numeric res ults) [facility] ([facility] SOURCE: Clean Catch pH 6.5 5-9 [facility] ([facility] SOURCE: Clean Catch Spec [place] 1.010 1.001-1.030 [facility] ([facility] SOURCE: Clean Catch Ketone Laboratory test result [facility] ([facility] SOURCE: Clean Catch Protein Laboratory test result [facility] ([facility] SOURCE: Clean Catch Bilirubin Laboratory test result ME [facility] ([facility] SOURCE: Clean Catch Nitrite Laboratory test result [facility] ([facility] SOURCE: Clean Catch Blood Laboratory test result [facility] ([facility] SOURCE: Clean Catch Leuk Est 25 [facility] ([facility] SOURCE: Clean Catch Urobilinogen Laboratory test result [facility] ([facility] SOURCE: Clean Catch Microscopic Laboratory test result M EDENT ([facility] SOURCE: Clean Catch WBC Laboratory test result [facility] ([facility] SOURCE: Clean Catch Epithelial Laboratory test result ME D[facility] ([facility] SOURCE: Clean Catch ID Date Data Source [id number] 12/31/2019 04:31:00 PM EST [facility] Name Value Range Interpretation Code Description Data Leona rce(s) Supporting Document(s) [facility]IS [facility] SOURCE Clean Catch [facility] COLOR yellow NORMAL: Yellow [facility] CLARITY clear NORMAL: Clear [facility] Specific gravity of Urine by Test strip 1.010 1.001 - 1.030 [facility] pH 6.5 5 - 9 [facility] Gl[facility] [Mass/volume] in Urine by Test strip 250 NORMAL: Negat mario A [facility] Bilirubin.total [Presence] in Urine by Test strip NEG NORMAL: Negative [facility] Ketones [Presence] in Urine by Test strip NEG NORMAL: Negative [facility] Protein [Mass/volume] in Urine by Test strip NEG NORMAL: Negat mario [facility] Nitrite [Presence] in Urine by Test strip NEG NORMAL: Negative [facility] BLOOD NEG NORMAL: Negative [facility] Leukocyte esterase [Presence] in Urine by Test strip 25 KYM L: Negative [facility] Urobilinogen [Mass/volume] in Urine by Test strip NOR less olivia n 1.0 mg/dL [facility] MICROSCOPIC See Below [facility] ital WBC 1 - 3 NORMAL: NONE SEEN [facility] EPITHELIAL FEW NORMAL: NONE SEEN [facility] ID Date Data Source [id number] 12/31/2019 03:35:00 PM EST [facility] ([facility] Name Value Range Interpretation Code Description Data Leona rce(s) Supporting Document(s) Comprehensive [employer] Laboratory test result [facility] ([facility] COMPREHENSIVE METABOLIC PANEL Sodium 140 meq/L 134-153 [facility] Potassium 4.6 meq/L 3.6-5.0 [facility] Glucose 143 mg/dL 65-110 Above high normal [facility] ([facility] Co2 29 meq/L 22-30 [facility] Chloride 104 meq/L 98-107 [facility] BUN/Creat 23 8-27 [facility] Creatinine 0.9 mg/dL 0.7-1.5 [facility] ([facility] BUN 21 mg/dL 7-21 [facility] Albumin 4.2 g/dL 3.9-5.0 [facility] ([facility] Globulin 2.2 GM/DL 2.4-3.2 Below low normal [facility] ( [facility] Total Protein 6.4 g/dL 6.3-8.2 [facility] ([facility] A/G Ratio 1.9 0.8-2.0 [facility] Total Bili Laboratory test result 0.2-1.3 [facility] ([facility] Calcium 9.2 mg/dL 8.4-10.2 [facility] ([facility] Sgot/Ast 17 U/L 5-40 [facility] Alkaline Phos 88 U/L 38-126 [facility] Anion Gap 7.0 mmol/L 8.0-16.0 Below low normal [facility] ( [facility] SGPT/Alt 12 U/L 7-56 [facility] Non-Aa GFR Laboratory test result [facility] ([facility] Afr Amer GFR Laboratory test result [facility] ([facility] Male GFR Interprentation 20-49 yrs >60 [...] >32 mL/min Normal Age 69 yrs [facility] ([facility] ID Date Data Source [id number] 12/31/2019 03:35:00 PM EST [facility] ([facility] Name Value Range Interpretation Code Description Data Leona rce(s) Supporting Document(s) Troponin T.cardiac [Mass/volume] in Serum or Plasma Laborato ry test result 0.00-0.10 [facility] TROPONIN T 0.1 ng/ml Recommended as the clinical th reshold value for Troponin T. Natriuretic peptide.B prohormone N-Terminal [Mass/volu me] in Serum or Plasma 144 pg/mL 0-125 Above high normal [facility] ([facility] ID Date Data Source [id number] 12/31/2019 03:35:00 PM EST [facility] ([facility] Name Value Range Interpretation Code Description Data Leona rce(s) Supporting Document(s) CBC W/Automated Diff Laboratory test result [facility] ([facility] COMPLETE BLOOD COUNT RBC 4.15 10^6/uL 4.20-5.40 Below low normal [facility] ([facility] WBC 6.5 10^3/uL 4.2-11.0 [facility] ([facility] Hemoglobin 10.1 g/dL 12.0-16.0 Below low normal [facility] ( [facility] MCV 80.2 fL 81.0-101 Below low normal [facility] ( [facility] Hematocrit 33.3 % 37.0-47.0 Below low normal [facility] ( [facility] MCH 24.3 pg 27.0-34.0 Below low normal [facility] ( [facility] Platelets 328 10^3/uL 150-450 [facility] ([facility] MCHC 30.3 g/dL 31.0-36.0 Below low normal [facility] ( [facility] MPV 10.2 fL 7.4-10.4 [facility] RDW 17.0 % 11.5-14.5 Above high normal [facility] ([facility] Lymph 28.0 % 25.0-40.0 [facility] Dauphin 7.4 % 3.0-8.0 [facility] Neut 60.0 % 37.0-80.0 [facility] %NRBC 0.0 % 0.0-0.0 [facility] %Ig 0.2 % 0.0-0.0 Above high normal [facility] ([facility] Baso 0.5 % 0.0-2.5 [facility] Eos 3.9 % 0.0-7.0 [facility] #Lymph 1.81 10^3/uL 0.60-3.40 [facility] #Neut 3.88 10^3/uL 2.00-6.90 [facility] #Dauphin 0.48 10^3/uL 0.00-0.90 [facility] #NRBC 0.00 10^3/uL 0.00-0.00 [facility] #Baso 0.03 10^3/uL 0.00-0.20 [facility] #Eos 0.25 10^3/uL 0.00-0.70 [facility] #Ig 0.01 10^3/uL 0.00-0.10 [facility] Manual Diff Laboratory test result M GILMER ([facility] RBC Morph Laboratory test result ME BALJINDER ([facility] ID Date Data Source [id number] 12/31/2019 03:35:00 PM EST [facility] ([facility] Name Value Range Interpretation Code Description Data Leona rce(s) Supporting Document(s) Fibrin D-dimer [Presence] in Platelet poor plasma Laboratory test result 0.27-0.50 [facility] ([facility] ID Date Data Source [id number] 12/31/2019 04:31:00 PM EST [facility] Name Value Range Interpretation Code Description Data Leona rce(s) Supporting Document(s) COMPREHENSIVE METABOLIC PANEL [facility] COMPREHENSIVE METABOLIC PANEL Sodium [Moles/volume] in Serum or Plasma 140 mEq/L 134 - 153 [facility] Potassium [Moles/volume] in Serum or Plasma 4.6 mEq/L 3.6 - 5.0 [facility] Chloride [Moles/volume] in Serum or Plasma 104 mEq/L 98 - 107 [facility] Carbon dioxide, total [Moles/volume] in Serum or Plasma 29 MEQ/L 22 - 30 [facility] Glucose [Mass/volume] in Serum or Plasma 143 MG/DL 65 - 110 H [facility] BUN 21 MG/DL 7 - 21 [facility] Creatinine [Mass/volume] in Serum or Plasma 0.9 MG/DL 0.7 - 1.5 [facility] BUN/CREAT 23 8 - 27 [facility] Protein [Mass/volume] in Serum or Plasma 6.4 G/DL 6.3 - 8.2 [facility] Albumin [Mass/volume] in Serum or Plasma 4.2 G/DL 3.9 - 5.0 [facility] Globulin [Mass/volume] in Serum by calculation 2.2 GM/DL 2.4 - 3.2 L [facility] A/G RATIO 1.9 0.8 - 2.0 [facility] Calcium [Mass/volume] in Serum or Plasma 9.2 MG/DL 8.4 - 10.2 [facility] Bilirubin.total [Mass/volume] in Serum or Plasma <0.7 MG/DL 0.2 - 1.3 [facility] Alkaline phosphatase [Enzymatic activity/volume] in Serum or Plasma 88 U/L 38 - 126 [facility] Aspartate aminotransferase [Enzymatic activity/volume] in Serum or Plasma 17 U/L 5 - 40 [facility] Alanine aminotransferase [Enzymatic activity/volume] in Seru m or Plasma 12 U/L 7 - 56 [facility] Anion gap 3 in Serum or Plasma 7.0 mmol/L 8.0 - 16.0 L [facility] 69 [facility] >60 mL/min [facility] AFR AMER GFR >60 [facility] Male GFR In terprentation [...] >32 mL/min Normal ID Date Data Source [id number] 12/31/2019 04:26:00 PM [facility] Name Value Range Interpretation Code Description Data Leona rce(s) Supporting Document(s) BNP 144 PG/ML 0 - 125 H [facility] ID Date Data Source [id number] 12/31/2019 04:20:00 PM [facility] Name Value Range Interpretation Code Description Data Leona rce(s) Supporting Document(s) TROPONIN T <0.01 NG/ML 0.00 - 0.10 [facility] TROPONIN T0.1 ng/ml Recommended as the c linical threshold value forTroponin T. ID Date Data Source [id number] 12/31/2019 04:13:00 PM [facility] Name Value Range Interpretation Code Description Data Leona rce(s) Supporting Document(s) CBC W/AUTOMATED DIFF [facility] COMPLETE BLOOD COUNT Leukocytes [#/volume] in Blood by Automated count 6.5 10^3/uL 4.2 - 1 1.0 [facility] Erythrocytes [#/volume] in Blood by Automated count 4.15 10^6/uL 4. 20 - 5.40 L [facility] Hemoglobin [Mass/volume] in Blood 10.1 g/dL 12.0 - 16.0 L [facility] Hematocrit [Volume Fraction] of Blood by Automated count 33.3 % 3 7.0 - 47.0 L [facility] Erythrocyte mean corpuscular volume [Entitic volume] by Auto mated count 80.2 fL 81.0 - 101 L [facility] Erythrocyte mean corpuscular hemoglobin [Entitic mass] by Automated count 24.3 pg 27.0 - 34.0 L [facility] Erythrocyte mean corpuscular hemoglobin concentration [Mass/volume] by Automated count 30.3 g/dL 31.0 - 36.0 L [facility] Erythrocyte distribution width [Ratio] by Automated count 17.0 % 11.5 - 14.5 H [facility] Platelets [#/volume] in Blood by Automated count 328 10^3/uL 150 - 45 0 [facility] Platelet mean volume [Entitic volume] in Blood by Automated count 10.2 fL 7.4 - 10.4 [facility] Neutrophils/100 leukocytes in Blood by Automated count 60.0 % 37. 0 - 80.0 [facility] Lymphocytes/100 leukocytes in Blood by Manual count 28.0 % 25.0 - 40.0 [facility] Monocytes/100 leukocytes in Blood by Automated count 7.4 % 3.0 - 8.0 [facility] Eosinophils/100 leukocytes in Blood by Automated count 3.9 % 0.0 - 7.0 [facility] Basophils/100 leukocytes in Blood by Automated count 0.5 % 0.0 - 2.5 [facility] %IG 0.2 % 0.0 - [facility] % 0.0 - 0.0 [facility] al Neutrophils [#/volume] in Blood by Automated count 3.88 10^3/uL 2.00 - 6.90 [facility] Lymphocytes [#/volume] in Blood by Automated count 1.81 10^3/uL 0.60 - 3.40 [facility] Monocytes [#/volume] in Blood by Automated count 0.48 10^3/uL 0.00 - 0.90 [facility] Eosinophils [#/volume] in Blood by Automated count 0.25 10^3/uL 0.00 - 0.70 [facility] Basophils [#/volume] in Blood by Automated count 0.03 10^3/uL 0.00 - 0.20 [facility] #IG 0.01 10^3/uL 0.00 - 0.10 [facility] #NRBC 0.00 10^3/uL 0.00 - 0.00 [facility] MANUAL DIFF NOT INDICATED [facility] RBC MORPH NOT INDICATED [facility] spital ID Date Data Source [id number] 12/31/2019 04:12:00 PM EST [facility] Name Value Range Interpretation Code Description Data Leona rce(s) Supporting Document(s) Fibrin D-dimer FEU [Mass/volume] in Platelet poor plasma <0. 27 ug/mL 0.27 - 0.50 [facility] ID Date Data Source [id number] 12/28/2019 04:34:00 PM EST [facility] Name Value Range Interpretation Code Description Data Leona rce(s) Supporting Document(s) Jules Fernando virus capsid IgM Ab [Presence] in Serum Laborat ory test result 0.0-35.9 Normal (applies to non-numeric results) [facility] ([facility] <content>Negative <36.0</content>
<content>Equivocal 36.0 - 43.9</content>
<content>Positive >43.9</content>
<content>Performed at: RN - [facility] [place]</content>
<content>[address] [place] [id number]</content>
<content>Concert Promoter: Virginie Acevedo MD, Phone: [phone]</content>
<content></content> ID Date Data Source [id number] 12/28/2019 04:34:00 PM EST [facility] ([facility] [...] Little GFR Left</content>
<content>ESRD GFR <15 on [employer]</content>
<content></content> Sodium Level 139 meq/L 136-145 Normal (applies to non-numeric res ults) [facility] ([facility] Carbon Dioxide Level 28 meq/L 21-32 Normal (applies to non-num ana rosa results) [facility] ([facility] Chloride Level 105 meq/L [...] re sults) [facility] ([facility] Albumin/Globulin Ratio 1.2 1.2-2.2 Normal (applies to non-n umeric results) [facility] ([facility] Albumin 3.6 GM/DL 3.2-5.2 Normal (applies to non-numeric resul ts) [facility] ([facility] ID Date Data Source [id number] 12/28/2019 04:34:00 PM EST [facility] ([facility] Name Value Range Interpretation Code Description Data Leona rce(s) Supporting Document(s) Hemoglobin 10.5 g/dL 12.0-15.5 Below low normal [facility] ( [facility] Red Blood Count 4.32 10 4.00-5.40 Normal (applies to non-numeric results) [facility] ([facility] White Blood Count 8.7 10 4.0-10.0 Normal (applies to non-numeri c results) [facility] ([facility] Hematocrit 35.1 % 36.0-47.0 Below low normal [facility] ( [facility] Mean Corpuscular Volume 81.3 fl 80.0-96.0 Normal ( applies to non-numeric results) [facility] ([facility] ) Mean Corpuscular HGB Conc 29.9 g/dL 32.0-36.5 Below low normal [facility] ([facility] Red Cell Distribution Width 16.7 % 11.5-14.5 Above high normal [facility] ([facility] Mean Corpuscular Hemoglobin 24.3 pg 27.0-33.0 Below low normal [facility] ([facility] Lymph % 19.4 % 24.0-44.0 Below low normal [facility] ( [facility] Neutrophils % 71.8 % 36.0-66.0 Above high normal MED[facility] NT ([facility] Platelet Count, Automated 344 10 150-450 Normal (applies to non-numeric results) [facility] ([facility] ) [place]hin % 6.7 % 0.0-5.0 Above high normal [facility] ([facility] Eos % 1.6 % 0.0-3.0 Normal (applies to non-numeric resul ts) [facility] ([facility] Baso % 0.3 % 0.0-1.0 Normal (applies to non-numeric resul ts) [facility] ([facility] Immature Granulocyte % 0.2 % 0-3.0 Normal (applies to non-n umeric results) [facility] ([facility] Nucleated Red Blood Cell % 0.0 % 0-0 Normal (applies to n on-numeric results) [facility] ([facility] Neutrophils # 6.2 10 1.5-8.5 Normal (applies to non-numeric re sults) [facility] ([facility] Lymph # 1.7 10 1.5-5.0 Normal (applies to non-numeric resul ts) [facility] ([facility] Da[place]hin # 0.6 10 0.0-0.8 Normal (applies to non-numeric resul ts) [facility] ([facility] Eos # 0.1 10 0.0-0.5 Normal (applies to non-numeric resul ts) [facility] ([facility] Baso # 0.0 10 0.0-0.2 Normal (applies to non-numeric resul ts) [facility] ([facility] ID Date Data Source [id number] 12/28/2019 02:51:00 PM EST [facility] Name Value Range Interpretation Code Description Data Leona rce(s) Supporting Document(s) Color Urine Laboratory test result M GILMER ([facility] Appearance of Urine Laboratory test result [facility] ([facility] Specific [place] 1.020 1.00-1.03 [facility] PH Urine 6.5 5.0-8.0 [facility] ([facility] Glucose Urine Laboratory test result [facility] ([facility] Bilirubin.total [Presence] in Urine by Test strip Laboratory test res ult [facility] ([facility] Blood Urine Laboratory test result M EDRADHA ([facility] Ketones Laboratory test result [facility] ([facility] Protein Urine Laboratory test result [facility] ([facility] Nitrite Laboratory test result [facility] ([facility] Urobilinogen 0.2 EU/dl 0.2-1.0 [facility] ([facility] Leukocytes Laboratory test result ME DENT ([facility] ID Date Data Source [id number] 12/28/2019 02:50:00 PM EST [facility] ([facility] Name Value Range Interpretation Code Description Data Leona rce(s) Supporting Document(s) Urine Culture, Routine Laboratory test result [facility] ([facility] SRC:URINE Bacteria identified in Urine by Culture Laboratory test result [facility] ([facility] SRC:URINE ID Date Data Source [id number] 12/28/2019 01:37:00 PM EST [facility] ([facility] Name Value Range Interpretation Code Description Data Leona rce(s) Supporting Document(s) Glucometer-[facility] 82 mg/dL 65-109 [facility] ([facility] ID Date Data Source [id number] 11/06/2019 11:41:00 AM EDT [facility] ([facility] Name Value Range Interpretation Code Description Data Leona rce(s) Supporting Document(s) A/C Ratio Laboratory test result ME DENT ([facility] Creatinine, Urine 10 mg/dL 10-300 [facility] ([facility] Alb 10 mg/L 1-30 [facility] ID Date Data Source [id number] 11/06/2019 11:40:00 AM EDT [facility] ([facility] Name Value Range Interpretation Code Description Data Leona rce(s) Supporting Document(s) Chol 136 mg/dL 0-200 [facility] NORMAL RANGES Age WBC [...] HCT IS 5% LESS SOURCE FOR DATA: [employer] 1800 OPERATION MANUAL( AUTOMATED BLOOD COUNTS AND [...] LDL_C 52 Calc 75-129 Below low normal [facility] ( [facility] [...] HCT IS 5% LESS SOURCE FOR DATA: [employer] 1800 OPERATION MANUAL( AUTOMATED BLOOD COUNTS AND [...] 2-19 YEARS EXCLUSIVE. Trig 109 mg/dL 40-200 [facility] ([facility] NORMAL [...] HCT IS 5% LESS SOURCE FOR DATA: [employer] 1800 OPERATION MANUAL( AUTOMATED BLOOD COUNTS AND [...] 2-19 YEARS EXCLUSIVE. Cho/HDL Ratio 2.2 CALC [employer] ([facility] NORMAL RANGES Age WBC [...] HCT IS 5% LESS SOURCE FOR DATA: [employer] ??? DYN 1800 OPERATION MANUAL( AUTOMATED BLOOD COUNTS [...] 2-19 YEARS EXCLUSIVE. ID Date Data Source [id number] 11/06/2019 11:40:00 AM EDT MED[facility] ([facility] Name Value Range Interpretation Code Description Data Leona rce(s) Supporting Document(s) WBC 5.5 10E3/uL 4.1-10.9 [facility] ([facility] NORMAL RANGES Age WBC [...] HCT IS 5% LESS SOURCE FOR DATA: [employer] 1800 OPERATION MANUAL( AUTOMATED BLOOD COUNTS AND [...] 2-19 YEARS EXCLUSIVE. RBC 4.23 10E6/uL 4.20-6.30 SHANNAN ([facility] NORMAL RANGES Age WBC RBC [...] HCT IS 5% LESS SOURCE FOR DATA: [employer] 1800 OPERATION MANUAL( AUTOMATED BLOOD COUNTS AND [...] HCT IS 5% LESS SOURCE FOR DATA: [employer] 1800 OPERATION MANUAL( AUTOMATED BLOOD COUNTS AND [...] HCT IS 5% LESS SOURCE FOR DATA: [employer] 1800 OPERATION MANUAL( AUTOMATED BLOOD COUNTS AND [...] 2-19 YEARS EXCLUSIVE. MCV 83.2 fL 80.0-97.0 [facility] NORMAL RANGES Age WBC RBC [...] HCT IS 5% LESS SOURCE FOR DATA: [employer] 1800 OPERATION MANUAL( AUTOMATED BLOOD COUNTS AND [...] HCT IS 5% LESS SOURCE FOR DATA: [employer] 1800 OPERATION MANUAL( AUTOMATED BLOOD COUNTS AND [...] HCT IS 5% LESS SOURCE FOR DATA: [employer] 1800 OPERATION MANUAL( AUTOMATED BLOOD COUNTS AND [...] 2-19 YEARS EXCLUSIVE. PLT 297 10E3/uL 140-440 [facility] ([facility] NORMAL RANGES Age WBC [...] HCT IS 5% LESS SOURCE FOR DATA: [employer] 1800 OPERATION MANUAL( AUTOMATED BLOOD COUNTS AND [...] 2-19 YEARS EXCLUSIVE. Lym% 35.5 % 10.0-58.5 [facility] NORMAL RANGES [...] HCT IS 5% LESS SOURCE FOR DATA: [employer] 1800 OPERATION MANUAL( AUTOMATED BLOOD COUNTS AND [...] RDW-CV 15.6 % 11.5-14.5 Above high normal [facility] (Family [...] HCT IS 5% LESS SOURCE FOR DATA: [employer] 1800 OPERATION MANUAL( AUTOMATED BLOOD COUNTS AND [...] HCT IS 5% LESS SOURCE FOR DATA: [employer] ??? DYN 1800 OPERATION MANUAL( AUTOMATED BLOOD COUNTS [...] 2-19 YEARS EXCLUSIVE. Lym# 2.0 10E3/uL 0.6-4.1 [facility] ([facility] NORMAL RANGES Age WBC [...] HCT IS 5% LESS SOURCE FOR DATA: [employer] 1800 OPERATION MANUAL( AUTOMATED BLOOD COUNTS AND [...] 2-19 YEARS EXCLUSIVE. Neut% 56.8 % 37.0-92.0 [facility] ([facility] NORMAL [...] HCT IS 5% LESS SOURCE FOR DATA: [employer] 1800 OPERATION MANUAL( AUTOMATED BLOOD COUNTS AND [...] 2-19 YEARS EXCLUSIVE. MPV 11.2 fL 9.0-13.0 [facility] ([facility] NORMAL RANGES [...] HCT IS 5% LESS SOURCE FOR DATA: [employer] 1800 OPERATION MANUAL( AUTOMATED BLOOD COUNTS AND [...] 2-19 YEARS EXCLUSIVE. MXD# 0.4 10E3/uL 0.0-1.8 [facility] ([facility] NORMAL RANGES Age WBC [...] HCT IS 5% LESS SOURCE FOR DATA: [employer] 1800 OPERATION MANUAL( AUTOMATED BLOOD COUNTS AND [...] 2-19 YEARS EXCLUSIVE. Neut# 3.1 % 2.0-7.8 SHANNAN ([facility] NORMAL [...] HCT IS 5% LESS SOURCE FOR DATA: [employer] 1800 OPERATION MANUAL( AUTOMATED BLOOD COUNTS AND [...] 2-19 YEARS EXCLUSIVE. ID Date Data Source [id number] 11/06/2019 11:40:00 AM EDT [facility] ([facility] [employer] [facility] Name Value Range Interpretation Code Description Data Leona rce(s) Supporting Document(s) BUN 18 mg/dL 8-23 [facility] ([facility] NORMAL RANGES Age [...] HCT IS 5% LESS SOURCE FOR DATA: [employer] ??? DYN 1800 OPERATION MANUAL( AUTOMATED BLOOD COUNTS [...] HCT IS 5% LESS SOURCE FOR DATA: [employer] 1800 OPERATION MANUAL( AUTOMATED BLOOD COUNTS AND [...] Glu 311 mg/dL 70-110 Above high normal [facility] ([facility] NORMAL RANGES Age WBC [...] HCT IS 5% LESS SOURCE FOR DATA: [employer] 1800 OPERATION MANUAL( AUTOMATED BLOOD COUNTS AND [...] 2-19 YEARS EXCLUSIVE. BUN/Creatinine Ratio 21.4 CALC [facility] ([facility] NORMAL RANGES Age WBC [...] HCT IS 5% LESS SOURCE FOR DATA: [employer] 1800 OPERATION MANUAL( AUTOMATED BLOOD COUNTS AND [...] 2-19 YEARS EXCLUSIVE. K 4.2 mmol/L 3.5-5.1 [facility] ([facility] NORMAL [...] HCT IS 5% LESS SOURCE FOR DATA: [employer] 1800 OPERATION MANUAL( AUTOMATED BLOOD COUNTS AND [...] 2-19 YEARS EXCLUSIVE. Na 136 mmol/L 136-145 [facility] ([facility] NORMAL RANGES Age WBC RBC [...] HCT IS 5% LESS SOURCE FOR DATA: [employer] ??? DYN 1800 OPERATION MANUAL( AUTOMATED BLOOD COUNTS [...] HCT IS 5% LESS SOURCE FOR DATA: [employer] 1800 OPERATION MANUAL( AUTOMATED BLOOD COUNTS AND [...] 2-19 YEARS EXCLUSIVE. CA 9.5 mg/dL 8.6-10.2 [facility] ([facility] NORMAL [...] HCT IS 5% LESS SOURCE FOR DATA: [employer] 1800 OPERATION MANUAL( AUTOMATED BLOOD COUNTS AND [...] 2-19 YEARS EXCLUSIVE. Co2 25.3 mmol/L 22.0-29.0 [employer] [facility] NORMAL RANGES Age WBC [...] HCT IS 5% LESS SOURCE FOR DATA: [employer] ??? DYN 1800 OPERATION MANUAL( AUTOMATED BLOOD COUNTS [...] HCT IS 5% LESS SOURCE FOR DATA: [employer] 1800 OPERATION MANUAL( AUTOMATED BLOOD COUNTS AND [...] TP 6.1 g/dL 6.6-8.7 Below low normal [facility] ( [facility] [...] HCT IS 5% LESS SOURCE FOR DATA: [employer] 1800 OPERATION MANUAL( AUTOMATED BLOOD COUNTS AND [...] 2-19 YEARS EXCLUSIVE. Alb 4.2 g/dL 3.4-4.8 [facility] ([facility] NORMAL RANGES [...] HCT IS 5% LESS SOURCE FOR DATA: [employer] 1800 OPERATION MANUAL( AUTOMATED BLOOD COUNTS AND [...] YEARS EXCLUSIVE. Alt (SGPT) 9 U/L 0-41 [facility] ([facility] NORMAL RANGES [...] HCT IS 5% LESS SOURCE FOR DATA: [employer] 1800 OPERATION MANUAL( AUTOMATED BLOOD COUNTS AND [...] 2-19 YEARS EXCLUSIVE. Alp 95.1 U/L 35-129 [facility] ([facility] NORMAL RANGES [...] HCT IS 5% LESS SOURCE FOR DATA: [employer] 1800 OPERATION MANUAL( AUTOMATED BLOOD COUNTS AND [...] HCT IS 5% LESS SOURCE FOR DATA: [employer] ??? DYN 1800 OPERATION MANUAL( AUTOMATED BLOOD COUNTS [...] 2-19 YEARS EXCLUSIVE. Tbili 0.08 mg/dL 0.0-1.2 [facility] ([facility] NORMAL RANGES [...] HCT IS 5% LESS SOURCE FOR DATA: [employer] 1800 OPERATION MANUAL( AUTOMATED BLOOD COUNTS AND [...] YEARS EXCLUSIVE. Ast (Sgot) 15 U/L 0-40 [facility] ([facility] NORMAL RANGES Age [...] HCT IS 5% LESS SOURCE FOR DATA: [employer] 1800 OPERATION MANUAL( AUTOMATED BLOOD COUNTS AND [...] 2-19 YEARS EXCLUSIVE. Anion Gap 18 mmol/L [facility] NORMAL RANGES [...] HCT IS 5% LESS SOURCE FOR DATA: [employer] 1800 OPERATION MANUAL( AUTOMATED BLOOD COUNTS AND [...] HCT IS 5% LESS SOURCE FOR DATA: [employer] 1800 OPERATION MANUAL( AUTOMATED BLOOD COUNTS AND [...] YEARS EXCLUSIVE. Osmolality-Calculated 285.2 CALC [facility] ([facility] NORMAL RANGES Age WBC [...] HCT IS 5% LESS SOURCE FOR DATA: [employer] 1800 OPERATION MANUAL( AUTOMATED BLOOD COUNTS AND [...] INDIVIDUALA AGED 2-19 YEARS EXCLUSIVE. eGFR Non-Afr. Romanian 65 # [facility] ([facility] [...] HCT IS 5% LESS SOURCE FOR DATA: [employer] ??? DYN 1800 OPERATION MANUAL( AUTOMATED BLOOD COUNTS [...] 2-19 YEARS EXCLUSIVE. ID Date Data Source [id number] 11/06/2019 11:40:00 AM EDT [facility] ([facility] Name Value Range Interpretation Code Description Data Leona rce(s) Supporting Document(s) Hemoglobin A1c/Hemoglobin.total in Blood 8.0 % 4.8-5.6 Above high normal [facility] ([facility] <content>Prediabetes: 5.7 - 6.4</content >
<content>Diabetes: >6.4</content>
<content>Glycemic control for adults with diabetes: <7.0</content>
<content></content> ID Date Data Source [id number] 11/06/2019 11:40:00 AM EDT [facility] ([facility] Name Value Range Interpretation Code Description Data Leona rce(s) Supporting Document(s) Hemoglobin A1c/Hemoglobin.total in Blood Laboratory test result [facility] ([facility] ID Date Data Source [id number] 09/15/2019 01:11:00 PM EDT [facility] ([facility] Name Value Range Interpretation Code Description Data Leona rce(s) Supporting Document(s) Urea nitrogen [Mass/volume] in Serum or Plasma 20 mg/dL 7-18 Above high normal [facility] ([facility] ID Date Data Source [id number] 09/15/2019 01:11:00 PM EDT [facility] ([facility] Name Value Range Interpretation Code Description Data Leona rce(s) Supporting Document(s) Creatinine For GFR 0.93 mg/dL 0.55-1.30 Normal (applies to non -numeric results) [facility] ([facility] Glomerular Filtration Rate Laboratory test result Normal (applies to non- numeric results) [facility] ([facility] ) <content>Units are mL/min/1.73 m2</content>
<content></content>
<content>Chronic Kidney Disease Staging per NKF:</content>
<content></content>
<content>Stage I & II GFR >=60 Normal to Mildly Decreased</content>
<content>Stage III GFR 30- 59 Moderately Decreased</content>
<content>Stage IV GFR 15-29 Severely Decreased</content>
<content>Stage V GFR <15 Very Little GFR Left</content>
<content>ESRD GFR <15 on [employer]</content>
<content></content> ID Date Data Source [id number] 09/15/2019 01:11:00 PM EDT [facility] ([facility] Name Value Range Interpretation Code Description Data Leona rce(s) Supporting Document(s) White Blood Count 5.2 10 4.0-10.0 Normal (applies to non-numeri c results) [facility] ([facility] Red Blood Count 4.05 10 4.00-5.40 Normal (applies to non-numeric results) [facility] ([facility] Hemoglobin 10.3 g/dL 12.0-15.5 Below low normal [facility] ( [facility] Mean Corpuscular HGB Conc 30.3 g/dL 32.0-36.5 Below low normal [facility] ([facility] Mean Corpuscular Volume 84.0 fl 80.0-96.0 Normal ( applies to non-numeric results) [facility] ([facility] ) Hematocrit 34.0 % 36.0-47.0 Below low normal [facility] ( [facility] Mean Corpuscular Hemoglobin 25.4 pg 27.0-33.0 Below low normal [facility] ([facility] Platelet Count, Automated 290 10 150-450 Normal (applies to non-numeric results) [facility] ([facility] ) Neutrophils % 52.0 % 36.0-66.0 Normal (applies to non-numeric re sults) [facility] ([facility] Red Cell Distribution Width 16.2 % 11.5-14.5 Above high normal [facility] ([facility] Eos % 2.9 % 0.0-3.0 Normal (applies to non-numeric resul ts) [facility] ([facility] Lymph % 36.2 % 24.0-44.0 Normal (applies to non-numeric resul ts) [facility] ([facility] [place] % 7.9 % 0.0-5.0 Above high normal [facility] ([facility] Baso % 0.6 % 0.0-1.0 Normal (applies to non-numeric resul ts) [facility] ([facility] Immature Granulocyte % 0.4 % 0-3.0 Normal (applies to non-n umeric results) [facility] ([facility] Nucleated Red Blood Cell % 0.0 % 0-0 Normal (applies to n on-numeric results) [facility] ([facility] Neutrophils # 2.7 10 1.5-8.5 Normal (applies to non-numeric re sults) [facility] ([facility] Eos # 0.2 10 0.0-0.5 Normal (applies to non-numeric resul ts) [facility] ([facility] Lymph # 1.9 10 1.5-5.0 Normal (applies to non-numeric resul ts) [facility] ([facility] [place] # 0.4 10 0.0-0.8 Normal (applies to non-numeric resul ts) [facility] ([facility] Baso # 0.0 10 0.0-0.2 Normal (applies to non-numeric resul ts) [facility] ([facility] ID Date Data Source [id number] 09/15/2019 01:11:00 PM EDT [facility] Name Value Range Interpretation Code Description Data Leona rce(s) Supporting Document(s) Total Iron Binding Capacity 486 ug/dL 250-450 Above high normal [facility] ([facility] Percent Saturation 6.2 % 13.2-45.0 Below low normal [facility] ([facility] Iron (Fe) 30 ug/dL 50-170 Below low normal [facility] ( [facility] ID Date Data Source [id number] 09/15/2019 01:11:00 PM EDT [facility] ([facility] Name Value Range Interpretation Code Description Data Leona rce(s) Supporting Document(s) Folate [Mass/volume] in Serum or Plasma 11.9 ng/mL Normal (applies to non- numeric results) [facility] ([facility] ) FOLATE NORMAL RANGE NORMAL GREATER THAN 5.4 NG/ML INDETERMINATE 3.4-5.4 NG/ML DEFICIENT LESS THAN 3.4 NG/ML Cobalamin (Vitamin B12) [Mass/volume] in Serum or Plasma 379 pg/ mL 247-911 Normal (applies to non-numeric results) [facility] ([facility] VITAMIN B12 NORMAL RANGE NORMAL 247 - 911 PG/ML INDETERMINATE 211 - 246 PG/ML DEFICIENT LESS THAN 211 PG/ML Ferritin [Mass/volume] in Serum or Plasma 7 ng/mL 8-252 Below low normal [facility] ([facility] ID Date Data Source [id number] 09/15/2019 01:11:00 PM EDT [facility]) Name Value Range Interpretation Code Description Data Leona rce(s) Supporting Document(s) Cobalamin (Vitamin B12) [Mass/volume] in Serum or Plasma 379 pg/ mL 247-911 Normal (applies to non-numeric results) [facility] ([facility]) VITAMIN B12 NORMAL RANGE NORMAL 247 - 911 PG/ML INDETERMINATE 211 - 246 PG/ML DEFICIENT LESS THAN 211 PG/ML Folate [Mass/volume] in Serum or Plasma 11.9 ng/mL Normal (applies to non- numeric results) [facility] ([facility]) FOLATE NORMAL RANGE NORMAL GREATER THAN 5.4 NG/ML INDETERMINATE 3.4-5.4 NG/ML DEFICIENT LESS THAN 3.4 NG/ML ID Date Data Source [id number] 09/15/2019 01:11:00 PM EDT [facility] ([facility]) Name Value Range Interpretation Code Description Data Leona rce(s) Supporting Document(s) Glomerular Filtration Rate Laboratory test result Normal (applies to non- numeric results) [facility]) <content>Units are mL/min/1.73 m2</content>
<content></content>
<content>Chronic Kidney Disease Staging per NKF:</content>
<content></content>
<content>Stage I & II GFR >=60 Normal to Mildly Decreased</content>
<content>Stage III GFR 30- 59 Moderately Decreased</content>
<content>Stage IV GFR 15-29 Severely Decreased</content>
<content>Stage V GFR <15 Very Little GFR Left</content>
<content>ESRD GFR <15 on [employer]ING [employer]</content>
<content></content> Creatinine For GFR 0.93 mg/dL 0.55-1.30 Normal (applies to non -numeric results) [facility] ([facility]) ID Date Data Source [id number] 09/15/2019 01:11:00 PM EDT [facility] ([facility]) Name Value Range Interpretation Code Description Data Leona rce(s) Supporting Document(s) Urea nitrogen [Mass/volume] in Serum or Plasma 20 mg/dL 7-18 Above high normal [facility] ([facility]) ID Date Data Source [id number] 09/15/2019 01:11:00 PM EDT [facility] ([facility]) Name Value Range Interpretation Code Description Data Leona rce(s) Supporting Document(s) Intrinsic factor blocking Ab [Units/volume] in Serum Laboratory rene t result [facility] ([facility]) Parietal cell Ab [Units/volume] in Serum Laboratory test result [facility] ([facility]) ID Date Data Source [id number] 09/15/2019 01:11:00 PM EDT [facility] ([facility]) Name Value Range Interpretation Code Description Data Leona rce(s) Supporting Document(s) Ferritin [Mass/volume] in Serum or Plasma 7 ng/mL 8-252 Below low normal [facility] ([facility]) ID Date Data Source [id number] 09/15/2019:11:00 PM EDT [facility] ([facility]) Name Value Range Interpretation Code Description Data Leona rce(s) Supporting Document(s) Total Iron Binding Capacity 486 ug/dL 250-450 Above high normal [facility] ([facility]) Iron (Fe) 30 ug/dL 50-170 Below low normal [facility] ( [facility]) Percent Saturation 6.2 % 13.2-45.0 Below low normal [facility] ([facility]) ID Date Data Source [id number] 09/15/2019:11:00 PM EDT [facility] ([facility]) Name Value Range Interpretation Code Description Data Leona rce(s) Supporting Document(s) White Blood Count 5.2 10 4.0-10.0 Normal (applies to non-numeri c results) [facility] ([facility]) Red Blood Count 4.05 10 4.00-5.40 Normal (applies to non-numeric results) [facility] ([facility]) Hemoglobin 10.3 g/dL 12.0-15.5 Below low normal [facility] ( [facility]) Hematocrit 34.0 % 36.0-47.0 Below low normal [facility] ( [facility]) Mean Corpuscular Volume 84.0 fl 80.0-96.0 Normal ( applies to non-numeric results) [facility] ([facility]) Mean Corpuscular Hemoglobin 25.4 pg 27.0-33.0 Below low normal [facility] ([facility]) Platelet Count, Automated 290 10 150-450 Normal (applies to non-numeric results) [facility] ([facility]) Red Cell Distribution Width 16.2 % 11.5-14.5 Above high normal [facility] ([facility]) Mean Corpuscular HGB Conc 30.3 g/dL 32.0-36.5 Below low normal [facility] ([facility]) [place] % 7.9 % 0.0-5.0 Above high normal [facility] ([facility]) Neutrophils % 52.0 % 36.0-66.0 Normal (applies to non-numeric re sults) [facility] ([facility]) Lymph % 36.2 % 24.0-44.0 Normal (applies to non-numeric resul ts) [facility] ([facility]) Eos % 2.9 % 0.0-3.0 Normal (applies to non-numeric resul ts) [facility] ([facility]) Baso % 0.6 % 0.0-1.0 Normal (applies to non-numeric resul ts) [facility]) Immature Granulocyte % 0.4 % 0-3.0 Normal (applies to non-n umeric results) [facility] ([facility]) Nucleated Red Blood Cell % 0.0 % 0-0 Normal (applies to n on-numeric results) [facility] ([facility]) Neutrophils # 2.7 10 1.5-8.5 Normal (applies to non-numeric re sults) [facility] ([facility]) Lymph # 1.9 10 1.5-5.0 Normal (applies to non-numeric resul ts) [facility] Eos # 0.2 10 0.0-0.5 Normal (applies to non-numeric resul ts) [facility] ([facility]) Baso # 0.0 10 0.0-0.2 Normal (applies to non-numeric resul ts) [facility] ([facility]) [place] # 0.4 10 0.0-0.8 Normal (applies to non-numeric resul ts) [facility] ([facility]) ID Date Data Source [id number] 08/31/2019 12:29:00 AM EDT [facility] ([facility] Name Value Range Interpretation Code Description Data Leona rce(s) Supporting Document(s) Color, Urine RFX Laboratory test result Normal ( applies to non-numeric results) [facility] ([facility] ) Appearance, Urine RFX Laboratory test result Nor mal (applies to non-numeric results) [facility] ([facility] ) PH,Urine RFX 5.0 units 5.0-9.0 Normal (applies to non-numeric res ults) [facility] ([facility] Protein, Urine Auto RFX Laboratory test result N ormal (applies to non-numeric results) [facility] ([facility] ) Specific [place] Ur Auto RFX 1.009 1.002-1.035 Nor mal (applies to non-numeric results) [facility] ([facility] ) Ketone, Urine Auto RFX Laboratory test result No rmal (applies to non-numeric results) [facility] ([facility] ) Glucose, Urine (Ua) Auto RFX Laboratory test result Above high normal [facility] ([facility] Nitrite, Urine Auto RFX Laboratory test result N ormal (applies to non-numeric results) [facility] ([facility] ) Bilirubin, Urine Auto RFX Laboratory test result Normal (applies to non- numeric results) [facility] ([facility] ) Urobilinogen, Urine Auto RFX 0.2 mg/dL 0.0-2.0 Nor mal (applies to non-numeric results) [facility] ([facility] ) Blood, Urine Blood RFX Laboratory test result No rmal (applies to non-numeric results) [facility] ([facility] ) Leukocyte Esterase Ur Auto RFX Laboratory test result Normal (applies to non- numeric results) [facility] ([facility] ) WBC, Urine Auto RFX 1 /HPF 0-3 Normal (applies to non-nume samantha results) [facility] ([facility] Squam Epithelial Cell Ur Aurfx 0 /HPF 0-6 N ormal (applies to non-numeric results) [facility] ([facility] ) RBC, Urine Auto RFX 1 /HPF 0-3 Normal (applies to non-nume samantha results) [facility] ([facility] Bacteria, Urine Auto RFX Laboratory test result Normal (applies to non-numeric results) [facility] ([facility] ) Hyaline Cast, Urine Auto RFX 0 /LPF 0-1 Normal (appl ies to non-numeric results) [facility] ([facility] ID Date Data Source [id number] 08/30/2019 10:06:00 PM EDT [facility] ([facility] Name Value Range Interpretation Code Description Data Leona rce(s) Supporting Document(s) Red Blood Count 4.37 10 4.00-5.40 Normal (applies to non-numeric results) [facility] ([facility] White Blood Count 9.4 10 4.0-10.0 Normal (applies to non-numeri c results) [facility] ([facility] Hemoglobin 11.1 g/dL 12.0-15.5 Below low normal [facility] ( [facility] Mean Corpuscular Volume 85.1 fl 80.0-96.0 Normal ( applies to non-numeric results) [facility] ([facility] ) Hematocrit 37.2 % 36.0-47.0 Normal (applies to non-numeric resul ts) [facility] ([facility] Mean Corpuscular HGB Conc 29.8 g/dL 32.0-36.5 Below low normal [facility] ([facility] Mean Corpuscular Hemoglobin 25.4 pg 27.0-33.0 Below low normal [facility] ([facility] Neutrophils % 76.4 % 36.0-66.0 Above high normal [facility] ([facility] Platelet Count, Automated 369 10 150-450 Normal (applies to non-numeric results) [facility] ([facility] ) Red Cell Distribution Width 16.2 % 11.5-14.5 Above high normal [facility] ([facility] Eos % 0.5 % 0.0-3.0 Normal (applies to non-numeric resul ts) [facility] ([facility] Lymph % 18.8 % 24.0-44.0 Below low normal [facility] ( [facility] [place] % 3.7 % 0.0-5.0 Normal (applies to non-numeric resul ts) [facility] ([facility] Nucleated Red Blood Cell % 0.0 % 0-0 Normal (applies to n on-numeric results) [facility] ([facility] Baso % 0.3 % 0.0-1.0 Normal (applies to non-numeric resul ts) [facility] ([facility] Immature Granulocyte % 0.3 % 0-3.0 Normal (applies to non-n umeric results) [facility] ([facility] [place] # 0.4 10 0.0-0.8 Normal (applies to non-numeric resul ts) [facility] ([facility] Neutrophils # 7.2 10 1.5-8.5 Normal (applies to non-numeric re sults) [facility] ([facility] Lymph # 1.8 10 1.5-5.0 Normal (applies to non-numeric resul ts) [facility] ([facility] Eos # 0.1 10 0.0-0.5 Normal (applies to non-numeric resul ts) [facility] ([facility] Baso # 0.0 10 0.0-0.2 Normal (applies to non-numeric resul ts) [facility] ([facility] ID Date Data Source [id number] 08/30/2019 10:06:00 PM EDT [facility] ([facility] Name Value Range Interpretation Code Description Data Leona rce(s) Supporting Document(s) Prothrombin Time 12.8 s 11.8-14.0 Normal (applies to non-numeric results) [facility] ([facility] Inr 0.99 Normal (applies to non-numeric resul ts) [facility] ([facility] THERAPUTIC HUMAN INR VALUES INDICATIONS NORMAL RANGES PROPHYLAXIS/TREATMENT OF: VENOUS THROMBOSIS 2.0-3.0 PULMONARY EMBOLISM 2.0-3.0 PREVENTION OF SYSTEMIC EMBOLISM FROM: TISSUE HEART VALVES 2.0-3.0 ACUTE MYOCARDIAL INFARCTION 2.0-3.0 VALVULAR HEART DISEASE 2.0-3.0 ATRIAL FIBRILLATION 2.0-3.0 MECHANICAL VALVES(HIGH RISK) 2.5-3.5 RECURRENT MYOCARDIAL INFARCTION 2.5-3.5 ID Date Data Source [id number] 08/30/2019 10:06:00 PM EDT [facility] ([facility] Name Value Range Interpretation Code Description Data Leona rce(s) Supporting Document(s) MB/CK Relative Index 0.89 Normal (applies to non-num ana rosa results) [facility] ([facility] <content>DIAGNOSIS CRITERIA</content>
<content>MMB ng/ml Relative Index (RI)</content>
<content>NON-AMI < or = 5 N/A</content>
<content>GIL ZONE > 5 < or = 4</content>
<content>AMI > 5 > 4</content>
<content></content> CK-MB Value Mass 1.7 ng/mL Normal (applies to non-numeric results) [facility] ([facility] CPK Creatine Phosphokinase 190 U/L 26-192 Kym l (applies to non-numeric results) [facility] ([facility] ) Troponin I Laboratory test result Normal (applies to non-n umeric results) [facility] ([facility] <content>Troponin I Reference Interval f or Siemens [place] LOCI:</content>
<content></content>
<content>99th Percentile= 0.00-0.045 ng/ml</content>
<content></content>
<content>Risk Stratification:</content>
<content><= 0.10 ng/ml Decreased Risk for Adverse Clinical</content>
<content>Events.</content>
<content>0.10-1.50 ng/ml Increased Risk for Adverse Clinical</content>
<content>Events. Evaluation of additional</content>
<content>criterion and/or repeat testing in 2-6</content>
<content>hours is suggested to rule out myocardial</content>
<content>damage.</content>
<content>>= 1.50 ng/ml Indicative of Myocardial Injury.</content>
<content></content> ID Date Data Source [id number] 08/30/2019 10:06:00 PM EDT [facility] ([facility] Name Value Range Interpretation Code Description Data Leona rce(s) Supporting Document(s) Alt/SGPT 28 U/L 12-78 Normal (applies to non-numeric resul ts) [facility] ([facility] Ast/Sgot 37 U/L 7-37 Normal (applies to non-numeric resul ts) [facility] ([facility] Alkaline Phosphatase 107 U/L 45-117 Normal (applies to non-num ana rosa results) [facility] ([facility] Bilirubin,Total 0.3 mg/dL 0.2-1.0 Normal (applies to non-numeric results) [facility] ([facility] Bilirubin,Direct Laboratory test result 0.0-0.2 Normal ( applies to non-numeric results) [facility] ([facility] ) Total Protein 7.3 GM/DL 6.4-8.2 Normal (applies to non-numeric re sults) [facility] ([facility] Albumin 3.6 GM/DL 3.2-5.2 Normal (applies to non-numeric resul ts) [facility] ([facility] Albumin/Globulin Ratio 1.0 1.2-2.2 Below low normal [facility] ([facility] ID Date Data Source [id number] 08/30/2019 10:06:00 PM EDT [facility] ([facility] Name Value Range Interpretation Code Description Data Leona rce(s) Supporting Document(s) Glucose, Fasting 164 mg/dL 70-100 Above high normal [facility] ([facility] Glomerular Filtration Rate 59.9 Normal (applies to n on-numeric results) [facility] ([facility] <content>Units are mL/min/1.73 m2</content>
<content></content>
<content>Chronic Kidney Disease Staging per NKF:</content>
<content></content>
<content>Stage I & II GFR >=60 Normal to Mildly Decreased</content>
<content>Stage III GFR 30- 59 Moderately Decreased</content>
<content>Stage IV GFR 15-29 Severely Decreased</content>
<content>Stage V GFR <15 Very Little GFR Left</content>
<content>ESRD GFR <15 on [employer]ING [employer]</content>
<content></content> Creatinine For GFR 0.98 mg/dL 0.55-1.30 Normal (applies to non -numeric results) [facility] ([facility] Blood Urea Nitrogen 23 mg/dL 7-18 Above high normal [facility] ([facility] Potassium Serum 4.3 meq/L 3.5-5.1 Normal (applies to non-numeric results) [facility] ([facility] This specimen has an elevated potassium level but there is NO visible hemolysis noted. Sodium Level 137 meq/L 136-145 Normal (applies to non-numeric res ults) [facility] ([facility] Chloride Level 100 meq/L 98-107 Normal (applies to non-numeric r esults) [facility] ([facility] Calcium Level 9.0 mg/dL 8.8-10.2 Normal (applies to non-numeric re sults) [facility] ([facility] Carbon Dioxide Level 29 meq/L 21-32 Normal (applies to non-num ana rosa results) [facility] ([facility] Anion Gap 8 meq/L 8-16 Normal (applies to non-numeric resul ts) [facility] ([facility] ID Date Data Source [id number] 08/30/2019 10:06:00 PM EDT [facility] ([facility] Name Value Range Interpretation Code Description Data Leona rce(s) Supporting Document(s) Lipoprotein lipase [Enzymatic activity/volume] in Serum or P lasma 258 U/L 73-393 Normal (applies to non-numeric results) [facility] ([facility] ID Date Data Source [id number] 08/30/2019 09:08:00 PM EDT [facility] ([facility] Name Value Range Interpretation Code Description Data Leona rce(s) Supporting Document(s) Glucose [Mass/volume] in Capillary blood by Glucometer 90 mg/dL 80-115 Normal (applies to non-numeric results) [facility] ID Date Data Source [id number] 07/28/2019 08:44:00 PM EDT [facility] ([facility] Name Value Range Interpretation Code Description Data Leona rce(s) Supporting Document(s) Laboratory test finding (navigational concept) 0.00 ng/mL 0 .00-0.08 Normal (applies to non-numeric results) [facility] ID Date Data Source [id number] 07/28/2019 08:44:00 PM EDT [facility] Name Value Range Interpretation Code Description Data Leona rce(s) Supporting Document(s) Troponin I.cardiac [Mass/volume] in Serum or Plasma Laboratory test result [facility] ([facility] Laboratory test finding (navigational concept) 0.00 ng/mL 0 .00-0.08 Normal (applies to non-numeric results) [facility] ID Date Data Source [id number] 07/28/2019 05:18:00 PM EDT [facility] ([facility] [...] 8-109 Normal (applies to non-numeric results) [facility] ([facility] Laboratory test finding (navigational concept) 24.0 MM/L 2 3.0-27.0 Normal (applies to non-numeric results) [facility] Laboratory test finding (navigational concept) 0.9 mg/dL 0 .6-1.3 Normal (applies to non-numeric results) [facility] ([facility] Laboratory test finding (navigational concept) 18 mg/dL 8 -26 Normal (applies to non-numeric results) [facility] ([facility]) ID Date Data Source [id number] 07/28/2019 05:16:00 PM EDT [facility] Name Value Range Interpretation Code Description Data Leona rce(s) Supporting Document(s) Laboratory test finding (navigational concept) 0.00 ng/mL 0 .00-0.08 Normal (applies to non-numeric results) [facility] ([facility] ID Date Data Source [id number] 07/28/2019 05:16:00 PM EDT [facility] ([place] Name Value Range Interpretation Code Description Data Leona rce(s) Supporting Document(s) Troponin I.cardiac [Mass/volume] in Serum or Plasma Laboratory test result [facility] ([facility] Laboratory test finding (navigational concept) 0.00 ng/mL 0 .00-0.08 Normal (applies to non-numeric results) [facility] ID Date Data Source [id number] 07/28/2019 05:15:00 PM EDT [facility] ([facility] Name Value Range Interpretation Code Description Data Leona rce(s) Supporting Document(s) Lipoprotein lipase [Enzymatic activity/volume] in Serum or P lasma 240 U/L 73-393 Normal (applies to non-numeric results) [facility] ([facility] ID Date Data Source [id number] 07/28/2019 05:15:00 PM EDT [facility] ([facility] Name Value Range Interpretation Code Description Data Leona rce(s) Supporting Document(s) Ast/Sgot 12 U/L 7-37 Normal (applies to non-numeric resul ts) [facility] ([facility] Alkaline Phosphatase 89 U/L 45-117 Normal (applies to non-num ana rosa results) [facility] ([facility] Bilirubin,Total 0.3 mg/dL 0.2-1.0 Normal (applies to non-numeric results) [facility] ([facility] Alt/SGPT 17 U/L 12-78 Normal (applies to non-numeric resul ts) [facility] ([facility] Bilirubin,Direct Laboratory test result 0.0-0.2 Normal ( applies to non-numeric results) [facility] ([facility] ) Total Protein 6.3 GM/DL 6.4-8.2 Below low normal [facility] ([facility] Albumin 3.3 GM/DL 3.2-5.2 Normal (applies to non-numeric resul ts) [facility] ([facility] Albumin/Globulin Ratio 1.1 1.2-2.2 Below low normal [facility] ([facility] ID Date Data Source [id number] 07/28/2019 05:15:00 PM EDT [facility] ([facility] Name Value Range Interpretation [...] 30.5 g/dL 32.0-36.5 Below low normal [facility] ([facility] Platelet Count, Automated 284 10 150-450 Normal (applies to non-numeric results) [facility] ([facility] ) Neutrophils % 56.8 % 36.0-66.0 Normal (applies to non-numeric re sults) [facility] ([facility] [place] % 9.0 % 0.0-5.0 Above high normal [facility] ([facility] Lymph % 31.2 % 24.0-44.0 Normal (applies to non-numeric resul ts) [facility] ([facility] Eos % 2.2 % 0.0-3.0 Normal (applies to non-numeric resul ts) [facility] ([facility] Immature Granulocyte % 0.2 % 0-3.0 Normal (applies to non-n umeric results) [facility] ([facility] [facility] Baso % 0.6 % 0.0-1.0 Normal (applies to non-numeric resul ts) [facility] ([facility] Nucleated Red Blood Cell % 0.0 % 0-0 Normal (applies to n on-numeric results) [facility] ([facility] Lymph # 2.0 10 1.5-5.0 Normal (applies to non-numeric resul ts) [facility] ([facility] Neutrophils # 3.6 10 1.5-8.5 Normal (applies to non-numeric re sults) [facility] ([facility] [place]hin # 0.6 10 0.0-0.8 Normal (applies to non-numeric resul ts) [facility] ([facility] Eos # 0.1 10 0.0-0.5 Normal (applies to non-numeric resul ts) [facility] ([facility] Baso # 0.0 10 0.0-0.2 Normal (applies to non-numeric resul ts) [facility] ([facility] ID Date Data Source [id number] 07/28/2019 10:36:00 AM EDT [facility] ([facility] Name Value Range Interpretation Code Description Data Leona rce(s) Supporting Document(s) Hemoglobin A1c/Hemoglobin.total in Blood 8.0 % 4.8-5.6 Above high normal [facility] ([facility] <content>Prediabetes: 5.7 - 6.4</content >
<content>Diabetes: >6.4</content>
<content>Glycemic control for adults with diabetes: <7.0</content>
<content></content> ID Date Data Source [id number] 07/28/2019 10:36:00 AM EDT [facility] ([facility] Name Value Range Interpretation Code Description Data Leona rce(s) Supporting Document(s) Triglyceride [Mass/volume] in Serum or Plasma 71 mg/dL 0-149 [facility] ([facility] Cholesterol in HDL [Mass/volume] in Serum or Plasma 65 mg/dL [facility] ([facility] Cholesterol [Mass/volume] in Serum or Plasma 135 mg/dL 100-199 [facility] ([facility] Cholesterol in LDL [Mass/volume] in Serum or Plasma by calcu lation 56 mg/dL 0-99 [facility] Cholesterol in VLDL [Mass/volume] in Serum or Plasma by calc ulation 14 mg/dL 5-40 [facility] Comment: Laboratory test result [facility] ([facility] ID Date Data Source [id number] 07/28/2019 10:36:00 AM EDT [facility] ([facility] Name Value Range Interpretation Code Description Data Leona rce(s) Supporting Document(s) BUN 20 mg/dL 8-27 [facility] Glucose [Mass/volume] in Serum or Plasma 205 mg/dL 65-99 Above high normal [facility] ([facility] Creatinine [Mass/volume] in Serum or Plasma 0.86 mg/dL 0.57-1.00 [facility] ([facility] eGFR If Africn Am 80 mL/min/1.73 [facility] ([facility] eGFR If NonAfricn Am 69 mL/min/1.73 [facility] ([facility] Urea nitrogen/Creatinine [Mass Ratio] in Serum or Plasma 23 1 2-28 [facility] ([facility] Potassium [Moles/volume] in Serum or Plasma 4.5 mmol/L 3.5-5.2 [facility] ([facility] Sodium [Moles/volume] in Serum or Plasma 136 mmol/L 134-144 [facility] ([facility] Carbon dioxide, total [Moles/volume] in Serum or Plasma 21 mmol/L 20 -29 [facility] ([facility] Chloride [Moles/volume] in Serum or Plasma 98 mmol/L 96-106 [facility] ([facility] Calcium [Mass/volume] in Serum or Plasma 9.5 mg/dL 8.7-10.3 [facility] ([facility] Globulin [Mass/volume] in Serum by calculation 2.0 g/dL 1.5-4.5 [facility] ([facility] Protein [Mass/volume] in Serum or Plasma 6.3 g/dL 6.0-8.5 [facility] ([facility] Albumin/Globulin [Mass Ratio] in Serum or Plasma 2.2 1.2-2.2 [facility] ([facility] Albumin [Mass/volume] in Serum or Plasma 4.3 g/dL 3.8-4.8 [facility] ([facility] Aspartate aminotransferase [Enzymatic activity/volume] in Serum or Plasma 17 IU/L 0-40 [facility] ([facility] Alkaline phosphatase [Enzymatic activity/volume] in Serum or Plasma 84 IU/L 39-117 [facility] Bilirubin.total [Mass/volume] in Serum or Plasma 0.2 mg/dL 0.0-1.2 [facility] ([facility] Alanine aminotransferase [Enzymatic activity/volume] in Seru m or Plasma 10 IU/L 0-32 [facility] ID Date Data Source [id number] 07/28/2019 10:36:00 AM EDT [facility] ([facility] Name Value Range Interpretation Code Description Data Leona rce(s) Supporting Document(s) Erythrocytes [#/volume] in Blood by Automated count 4.47 x10E6/uL 3.7 7-5.28 [facility] ([facility] Leukocytes [#/volume] in Blood by Automated count 4.4 x10E3/uL 3.4-10 .8 [facility] ([facility] Erythrocyte mean corpuscular volume [Entitic volume] by Auto mated count 83 fL 79-97 [facility] ([facility] Hemoglobin [Mass/volume] in Blood 11.2 g/dL 11.1-15.9 [facility] ([facility] Hematocrit [Volume Fraction] of Blood by Automated count 37.0 % 3 4.0-46.6 [facility] ([facility] Erythrocyte mean corpuscular hemoglobin [Entitic mass] by Automated count 25.1 pg 26.6-33.0 Below low normal [facility] ([facility] Erythrocyte distribution width [Ratio] by Automated count 14.9 % 11.7-15.4 [facility] ([facility] Erythrocyte mean corpuscular hemoglobin concentration [Mass/volume] by Automated count 30.3 g/dL 31.5-35.7 Below low normal [facility] ([facility] Platelets [#/volume] in Blood by Automated count 310 x10E3/uL 150-450 [facility] ([facility] Monocytes/100 leukocytes in Blood by Automated count 8 % [facility] ([facility] Neutrophils 47 % [facility] ([facility] Lymphs 41 % [facility] Eosinophils/100 leukocytes in Blood by Automated count 3 % [facility] ([facility] Basophils/100 leukocytes in Blood by Automated count 1 % [facility] ([facility] Immature cells [#/volume] in Blood Laboratory test result [facility] ([facility] Monocytes [#/volume] in Blood 0.4 x10E3/uL 0.1-0.9 [facility] ([facility] Lymphocytes [#/volume] in Blood 1.8 x10E3/uL 0.7-3.1 [facility] ([facility] Neutrophils [#/volume] in Blood by Automated count 2.1 x10E3/uL 1.4-7 .0 [facility] ([facility] Eosinophils [#/volume] in Blood by Automated count 0.1 x10E3/uL 0.0-0 .4 [facility] ([facility] Basophils [#/volume] in Blood by Automated count 0.0 x10E3/uL 0.0-0.2 [facility] ([facility] Immature granulocytes/100 leukocytes in Blood by Automated count 0 % [facility] ([facility] Immature granulocytes [#/volume] in Blood by Automated count 0.0 x10E3/uL 0.0-0.1 [facility] Morphology [Interpretation] in Blood Narrative Laboratory test result [facility] ([facility] Nucleated erythrocytes/100 leukocytes [Ratio] in Blood by Automated count Laboratory test result [facility] ([facility] ID Date Data Source [id number] 04/10/2019 11:02:00 AM EST [facility] ([facility] Name Value Range Interpretation Code Description Data Leona rce(s) Supporting Document(s) Erythrocytes [#/volume] in Blood by Automated count 4.34 x10E6/uL 3.7 7-5.28 [facility] ([facility] Leukocytes [#/volume] in Blood by Automated count 6.0 x10E3/uL 3.4-10 .8 [facility] ([facility] Hemoglobin [Mass/volume] in Blood 11.0 g/dL 11.1-15.9 Below low nor mal [facility] ([facility] Erythrocyte mean corpuscular hemoglobin [Entitic mass] by Automated count 25.3 pg 26.6-33.0 Below low normal [facility] ([facility] Hematocrit [Volume Fraction] of Blood by Automated count 35.7 % 3 4.0-46.6 [facility] ([facility] Erythrocyte mean corpuscular volume [Entitic volume] by Auto mated count 82 fL 79-97 [facility] ([facility] Erythrocyte distribution width [Ratio] by Automated count 15.5 % 11.7-15.4 Above high normal [facility] ([facility] ) Platelets [#/volume] in Blood by Automated count 410 x10E3/uL 150-450 [facility] ([facility] Erythrocyte mean corpuscular hemoglobin concentration [Mass/volume] by Automated count 30.8 g/dL 31.5-35.7 Below low normal [facility] ([facility] Monocytes/100 leukocytes in Blood by Automated count 9 % [facility] ([facility] Neutrophils 44 % [facility] ([facility] Lymphs 44 % [facility] ([facility] Neutrophils [#/volume] in Blood by Automated count 2.7 x10E3/uL 1.4-7 .0 [facility] ([facility] Immature cells [#/volume] in Blood Laboratory test result [facility] ([facility] Eosinophils/100 leukocytes in Blood by Automated count 3 % [facility] ([facility] Basophils/100 leukocytes in Blood by Automated count 0 % [facility] ([facility] Lymphocytes [#/volume] in Blood 2.7 x10E3/uL 0.7-3.1 [facility] ([facility] Monocytes [#/volume] in Blood 0.5 x10E3/uL 0.1-0.9 [facility] ([facility] Eosinophils [#/volume] in Blood by Automated count 0.2 x10E3/uL 0.0-0 .4 [facility] ([facility] Basophils [#/volume] in Blood by Automated count 0.0 x10E3/uL 0.0-0.2 [facility] ([facility] Immature granulocytes [#/volume] in Blood by Automated count 0.0 x10E3/uL 0.0-0.1 [facility] ([facility] Nucleated erythrocytes/100 leukocytes [Ratio] in Blood by Automated count Laboratory test result [facility] ([facility] Immature granulocytes/100 leukocytes in Blood by Automated count 0 % [facility] ([facility] Morphology [Interpretation] in Blood Narrative Laboratory test result [facility] ([facility] ID Date Data Source [id number] 04/10/2019 11:02:00 AM EST [facility] Name Value Range Interpretation Code Description Data Leona rce(s) Supporting Document(s) Hemoglobin A1c/Hemoglobin.total in Blood 7.9 % 4.8-5.6 Above high normal [facility] ([facility] <content>Prediabetes: 5.7 - 6.4</content >
<content>Diabetes: >6.4</content>
<content>Glycemic control for adults with diabetes: <7.0</content>
<content></content> ID Date Data Source [id number] 04/10/2019 11:02:00 AM EST [facility] ([facility] Name Value Range Interpretation Code Description Data Leona rce(s) Supporting Document(s) Triglyceride [Mass/volume] in Serum or Plasma 51 mg/dL 0-149 [facility] ([facility] Cholesterol [Mass/volume] in Serum or Plasma 137 mg/dL 100-199 [facility] ([facility] Cholesterol in HDL [Mass/volume] in Serum or Plasma 75 mg/dL [facility] ([facility] Cholesterol in LDL [Mass/volume] in Serum or Plasma by calcu lation 52 mg/dL 0-99 [facility] ([facility] Cholesterol in VLDL [Mass/volume] in Serum or Plasma by calc ulation 10 mg/dL 5-40 [facility] ([facility] Comment: Laboratory test result [facility] ([facility] ID Date Data Source [id number] 04/10/2019 11:02:00 AM EST [facility] ([facility] Name Value Range Interpretation Code Description Data Leona rce(s) Supporting Document(s) BUN 24 mg/dL 8-27 [facility] ([facility] Glucose [Mass/volume] in Serum or Plasma 136 mg/dL 65-99 Above high normal [facility] ([facility] Creatinine [Mass/volume] in Serum or Plasma 0.81 mg/dL 0.57-1.00 [facility] ([facility] eGFR If NonAfricn Am 74 mL/min/1.73 [facility] ([facility] Urea nitrogen/Creatinine [Mass Ratio] in Serum or Plasma 30 12-28 Above high normal [facility] ([facility] ) Sodium [Moles/volume] in Serum or Plasma 139 mmol/L 134-144 [facility] ([facility] eGFR If Africn Am 86 mL/min/1.73 [facility] ([facility] Chloride [Moles/volume] in Serum or Plasma 99 mmol/L 96-106 [facility] ([facility] Carbon dioxide, total [Moles/volume] in Serum or Plasma 25 mmol/L 20 -29 [facility] ([facility] Calcium [Mass/volume] in Serum or Plasma 9.6 mg/dL 8.7-10.3 [facility] ([facility] Potassium [Moles/volume] in Serum or Plasma 4.8 mmol/L 3.5-5.2 [facility] ([facility] Albumin [Mass/volume] in Serum or Plasma 4.3 g/dL 3.8-4.8 [facility] ([facility] Please note reference interval change* * Protein [Mass/volume] in Serum or Plasma 6.5 g/dL 6.0-8.5 [facility] ([facility] Globulin [Mass/volume] in Serum by calculation 2.2 g/dL 1.5-4.5 [facility] ([facility] Bilirubin.total [Mass/volume] in Serum or Plasma 0.2 mg/dL 0.0-1.2 [facility] ([facility] Albumin/Globulin [Mass Ratio] in Serum or Plasma 2.0 1.2-2.2 [facility] ([facility] Alkaline phosphatase [Enzymatic activity/volume] in Serum or Plasma 71 IU/L 39-117 [facility] ([facility] Alanine aminotransferase [Enzymatic activity/volume] in Seru m or Plasma 12 IU/L 0-32 [facility] ([facility] Aspartate aminotransferase [Enzymatic activity/volume] in Serum or Plasma 16 IU/L 0-40 [facility] ([facility] ID Date Data Source [id number] 02/13/2019 10:16:00 AM EST [facility] ([facility] Name Value Range Interpretation Code Description Data Leona rce(s) Supporting Document(s) Ferritin [Mass/volume] in Serum or Plasma 6 ng/mL 8-252 Below low normal [facility] ([facility] ID Date Data Source [id number] 02/13/2019 10:16:00 AM EST [facility] ([facility] Name Value Range Interpretation Code Description Data Leona rce(s) Supporting Document(s) Vitamin B12 Level 267 pg/mL Normal (applies to non-numeri c results) [facility] ([facility] VITAMIN B12 NORMAL RANGE NORMAL 247 - 911 PG/ML INDETERMINATE 211 - 246 PG/ML DEFICIENT LESS THAN 211 PG/ML Folate Laboratory test result Normal (applies to non-n umeric results) [facility] ([facility] FOLATE NORMAL RANGE NORMAL GREATER THAN 5.4 NG/ML INDETERMINATE 3.4-5.4 NG/ML DEFICIENT LESS THAN 3.4 NG/ML ID Date Data Source [id number] 02/13/2019 10:16:00 AM EST [facility] ([facility] Name Value Range Interpretation Code Description Data Leona rce(s) Supporting Document(s) Percent Saturation 5.6 % 13.2-45.0 Below low normal [facility] ([facility] Total Iron Binding Capacity 461 ug/dL 250-450 Above high normal [facility] ([facility] Iron (Fe) 26 ug/dL 50-170 Below low normal [facility] ( [facility] ID Date Data Source [id number] 02/13/2019 10:16:00 AM EST [facility] ([facility] Name Value Range Interpretation Code Description Data Leona rce(s) Supporting Document(s) Glomerular Filtration Rate Laboratory test result Normal (applies to non- numeric results) [facility] ([facility] ) <content>Units are mL/min/1.73 m2</content>
<content></content>
<content>Chronic Kidney Disease Staging per NKF:</content>
<content></content>
<content>Stage I & II GFR >=60 Normal to Mildly Decreased</content>
<content>Stage III GFR 30- 59 Moderately Decreased</content>
<content>Stage IV GFR 15-29 Severely Decreased</content>
<content>Stage V GFR <15 Very Little GFR Left</content>
<content>ESRD GFR <15 on [employer]</content>
<content></content> Creatinine For GFR 0.91 mg/dL 0.55-1.30 Normal (applies to non -numeric results) [facility] ([facility] ID Date Data Source [id number] 02/13/2019 10:16:00 AM EST [facility] ([facility] Name Value Range Interpretation Code Description Data Leona rce(s) Supporting Document(s) Urea nitrogen [Mass/volume] in Serum or Plasma 15 mg/dL 7 -18 Normal (applies to non-numeric results) [facility] ([facility]) ID Date Data Source [id number] 02/13/2019 10:16:00 AM EST [facility] ([facility] Name Value Range Interpretation Code Description Data Leona rce(s) Supporting Document(s) White Blood Count 7.0 10 4.0-10.0 Normal (applies to non-numeri c results) [facility] ([facility] Hemoglobin 10.6 g/dL 12.0-15.5 Below low normal [facility] ( [facility] Hematocrit 35.8 % 36.0-47.0 Below low normal [facility] ( [facility] Red Blood Count 4.08 10 4.00-5.40 Normal (applies to non-numeric results) [facility] ([facility] Mean Corpuscular Volume 87.7 fl 80.0-96.0 Normal ( applies to non-numeric results) [facility] ([facility] ) Mean Corpuscular HGB Conc 29.6 g/dL 32.0-36.5 Below low normal [facility] ([facility] Mean Corpuscular Hemoglobin 26.0 pg 27.0-33.0 Below low normal [facility] ([facility] Neutrophils % 67.7 % 36.0-66.0 Above high normal [facility] ([facility] Red Cell Distribution Width 16.3 % 11.5-14.5 Above high normal [facility] ([facility] Platelet Count, Automated 302 10 150-450 Normal (applies to non-numeric results) [facility] ([facility] ) [place] % 6.3 % 0.0-5.0 Above high normal [facility] ([facility] Lymph % 23.5 % 24.0-44.0 Below low normal [facility] ( [facility] Eos % 2.3 % 0.0-3.0 Normal (applies to non-numeric resul ts) [facility] ([facility] Immature Granulocyte % 0.1 % 0-3.0 Normal (applies to non-n umeric results) [facility] ([facility] Baso % 0.1 % 0.0-1.0 Normal (applies to non-numeric resul ts) [facility] ([facility] Nucleated Red Blood Cell % 0.0 % 0-0 Normal (applies to n on-numeric results) [facility] ([facility] Neutrophils # 4.7 10 1.5-8.5 Normal (applies to non-numeric re sults) [facility] ([facility] Lymph # 1.6 10 1.5-5.0 Normal (applies to non-numeric resul ts) [facility] ([facility] [place] # 0.4 10 0.0-0.8 Normal (applies to non-numeric resul ts) [facility] ([facility] Baso # 0.0 10 0.0-0.2 Normal (applies to non-numeric resul ts) [facility] ([facility] Eos # 0.2 10 0.0-0.5 Normal (applies to non-numeric resul ts) [facility] ([facility] ID Date Data Source [id number] 02/13/2019 10:16:00 AM EST [facility] ([facility], ) Name Value Range Interpretation Code Description Data Leona rce(s) Supporting Document(s) Creatinine For GFR 0.91 mg/dL 0.55-1.30 Normal (applies to non -numeric results) [facility] ([facility], ) Glomerular Filtration Rate > 60.0 Normal (applies to n on-numeric results) [facility] ([facility]) <content>Units are mL/min/1.73 m2</content>
<content></content>
<content>Chronic Kidney Disease Staging per NKF:</content>
<content></content>
<content>Stage I & II GFR >=60 Normal to Mildly Decreased</content>
<content>Stage III GFR 30- 59 Moderately Decreased</content>
<content>Stage IV GFR 15-29 Severely Decreased</content>
<content>Stage V GFR <15 Very Little GFR Left</content>
<content>ESRD GFR <15 on [employer]</content>
<content></content> ID Date Data Source [id number] 02/13/2019 10:16:00 AM EST [facility] ([facility], ) Name Value Range Interpretation Code Description Data Leona rce(s) Supporting Document(s) Urea nitrogen [Mass/volume] in Serum or Plasma 15 mg/dL 7 -18 Normal (applies to non-numeric results) [facility] ([facility]) ID Date Data Source [id number] 02/13/2019 10:16:00 AM EST [facility] ([facility]) Name Value Range Interpretation Code Description Data Leona rce(s) Supporting Document(s) Folate > 24.0 ng/mL Normal (applies to non-numeric res ults) [facility] ([facility]) FOLATE NORMAL RANGE NORMAL GREATER THAN 5.4 NG/ML INDETERMINATE 3.4-5.4 NG/ML DEFICIENT LESS THAN 3.4 NG/ML Vitamin B12 Level 267 pg/mL Normal (applies to non-numeri c results) [facility]) VITAMIN B12 NORMAL RANGE NORMAL 247 - 911 PG/ML INDETERMINATE 211 - 246 PG/ML DEFICIENT LESS THAN 211 PG/ML ID Date Data Source [id number] 02/13/2019 10:16:00 AM [facility] ([facility]) Name Value Range Interpretation Code Description Data Leona rce(s) Supporting Document(s) Ferritin [Mass/volume] in Serum or Plasma 6 ng/mL 8-252 Below low normal [facility] ([facility]) ID Date Data Source [id number] 02/13/2019 10:16:00 AM EST [facility] ([facility]) Name Value Range Interpretation Code Description Data Leona rce(s) Supporting Document(s) Iron (Fe) 26 ug/dL 50-170 Below low normal [facility] ( [facility]) Total Iron Binding Capacity 461 ug/dL 250-450 Above high normal [facility] ([facility]) Percent Saturation 5.6 % 13.2-45.0 Below low normal [facility] ([facility]) ID Date Data Source [id number] 02/13/2019 10:16:00 AM EST [facility] ([facility]) Name Value Range Interpretation Code Description Data Leona rce(s) Supporting Document(s) Red Blood Count 4.08 10 4.00-5.40 Normal (applies to non-numeric results) [facility] ([facility]) White Blood Count 7.0 10 4.0-10.0 Normal (applies to non-numeri c results) [facility] ([facility]) Mean Corpuscular Volume 87.7 fl 80.0-96.0 Normal ( applies to non-numeric results) [facility] ([facility]) Hematocrit 35.8 % 36.0-47.0 Below low normal [facility] ( [facility]) Hemoglobin 10.6 g/dL 12.0-15.5 Below low normal [facility] ( [facility]) Mean Corpuscular HGB Conc 29.6 g/dL 32.0-36.5 Below low normal [facility] ([facility]) Red Cell Distribution Width 16.3 % 11.5-14.5 Above high normal [facility] ([facility]) Mean Corpuscular Hemoglobin 26.0 pg 27.0-33.0 Below low normal [facility] ([facility]) Neutrophils % 67.7 % 36.0-66.0 Above high normal MEDE NT ([facility]) Lymph % 23.5 % 24.0-44.0 Below low normal [facility] ( [facility]) Platelet Count, Automated 302 10 150-450 Normal (applies to non-numeric results) [facility] ([facility]) Baso % 0.1 % 0.0-1.0 Normal (applies to non-numeric resul ts) [facility] ([facility]) [place] % 6.3 % 0.0-5.0 Above high normal [facility] ([facility]) Eos % 2.3 % 0.0-3.0 Normal (applies to non-numeric resul ts) [facility] ([facility]) Nucleated Red Blood Cell % 0.0 % 0-0 Normal (applies to n on-numeric results) [facility] ([facility]) Immature Granulocyte % 0.1 % 0-3.0 Normal (applies to non-n umeric results) [facility] ([facility]) Neutrophils # 4.7 10 1.5-8.5 Normal (applies to non-numeric re sults) [facility] ) [place] # 0.4 10 0.0-0.8 Normal (applies to non-numeric resul ts) [facility] ([facility]) Lymph # 1.6 10 1.5-5.0 Normal (applies to non-numeric resul ts) [facility] ([facility]) Eos # 0.2 10 0.0-0.5 Normal (applies to non-numeric resul ts) [facility] ([facility]) Baso # 0.0 10 0.0-0.2 Normal (applies to non-numeric resul ts) [facility] ([facility]) Procedure Social History Code Duration Value Status Description Data Source(s ) Smoking 01/21/2020 12:00:00 AM EST Patient is a former smoker completed Patient is a former smoker [facility] ([facility]) Vital Signs ID Date Data Source UNK Name Value Range Interpretation Code Description Data Source(s) Body surface area Derived from formula 1.78 m2 1.78 m2 [facility] ([facility]) Body weight 83.916 kg 83.916 kg [facility] ([facility]) [place] body weight 100 [lb_av] 100 [lb_av] [facility] Body mass index (BMI) [Ratio] 37.4 kg/m2 37.4 k g/m2 [facility] ([facility]) Body weight 185.00 [lb_av] 185.00 [lb_av] [facility] Body height 59 [in_i] 59 [in_i] [facility] ([facility]) 4'11" Diastolic blood pressure 74 mm[Hg] 74 mm[Hg] [facility] ([facility]) Systolic blood pressure 136 mm[Hg] 136 mm[Hg] M [facility] ([facility]) Body temperature 96.9 [degF] 96.9 [degF] [facility] ([facility]) Body temperature 96.8 [degF] 96.8 [degF] [facility] ([facility] ) Body mass index (BMI) [Ratio] 36.4 kg/m2 36.4 k g/m2 [facility] ([facility]) Body weight 186.50 [lb_av] 186.50 [lb_av] MED[facility] T ([facility]) Body height 60 [in_i] 60 [in_i] [facility] ([facility]) 5'0" Body temperature 97.2 [degF] 97.2 [degF] [facility] ([facility]) Body weight 185.00 [lb_av] 185.00 [lb_av] [facility] T ([facility]) Body temperature 97.0 [degF] 97.0 [degF] [facility] ([facility], [facility]) Oxygen saturation in Arterial blood by Pulse oximetry 96 % 96 % [facility] ([facility], [facility]) Respiratory rate 18 /min 18 /min [facility] ( [facility], [facility]) Heart rate 75 /min 75 /min [facility] ([facility], [facility]) Diastolic blood pressure 56 mm[Hg] 56 mm[Hg] [facility] ([facility], [facility]) Systolic blood pressure 108 mm[Hg] 108 mm[Hg] M [facility] ([facility], [facility]) Body surface area Derived from formula 1.81 m2 1.81 m2 [facility] ([facility]) Body weight 86.638 kg 86.638 kg [facility] ([facility]) [place] body weight 100 [lb_av] 100 [lb_av] [facility] Body mass index (BMI) [Ratio] 38.6 kg/m2 38.6 k g/m2 [facility] ([facility]) Body weight 191.00 [lb_av] 191.00 [lb_av] [facility] Body height 59 [in_i] 59 [in_i] [facility] ([facility]) 4'11" Diastolic blood pressure 66 mm[Hg] 66 mm[Hg] [facility] ([facility]) Systolic blood pressure 128 mm[Hg] 128 mm[Hg] [facility], ) Oxygen saturation in Arterial blood by Pulse oximetry 97 % 97 % [facility] ([facility] Body mass index (BMI) [Ratio] 36.1 kg/m2 36.1 k g/m2 [facility] ([facility] [place] body weight 100 [lb_av] 100 [lb_av] [facility] T ([facility] Body weight 188.00 [lb_av] 188.00 [lb_av] [facility] T ([facility] Body height 60.5 [in_i] 60.5 [in_i] [facility] ([facility] 5'0.50" Respiratory rate 16 /min 16 /min [facility] ( [facility] Heart rate 72 /min 72 /min [facility] ([facility] Body temperature 98.5 [degF] 98.5 [degF] [facility] ([facility] Diastolic blood pressure 70 mm[Hg] 70 mm[Hg] [facility] ([facility] Systolic blood pressure 124 mm[Hg] 124 mm[Hg] M [facility] ([facility] Oxygen saturation in Arterial blood by Pulse oximetry 97 % 97 % [facility] ([facility] Body mass index (BMI) [Ratio] 36.7 kg/m2 36.7 k g/m2 [facility] ([facility] [place] body weight 100 [lb_av] 100 [lb_av] [facility] T ([facility] Body weight 191.00 [lb_av] 191.00 [lb_av] [facility] T ([facility] Body height 60.5 [in_i] 60.5 [in_i] [facility] ([facility] 5'0.50" Respiratory rate [...] by Pulse oximetry 95 % 95 % [facility] ([facility] Body mass index (BMI) [Ratio] 36.1 kg/m2 36.1 k g/m2 [facility] ([facility] [place] body weight 100 [lb_av] 100 [lb_av] [facility] T ([facility] Body weight 188.00 [lb_av] 188.00 [lb_av] [facility] T ([facility] Body height 60.5 [in_i] 60.5 [in_i] [facility] ([facility] 5'0.50" Respiratory rate 14 /min 14 /min [facility] ( [facility] Heart rate 66 /min 66 /min [facility] ([facility] Body temperature 98.0 [degF] 98.0 [degF] [facility] ([facility] Diastolic blood pressure 68 mm[Hg] 68 mm[Hg] [facility] ([facility] Systolic blood pressure 128 mm[Hg] 128 mm[Hg] [facility] ([facility] Oxygen saturation in Arterial blood by Pulse oximetry 98 % 98 % [facility] ([facility] Body mass index (BMI) [Ratio] 35.9 kg/m2 35.9 k g/m2 [facility] ([facility] Body weight 187.00 [lb_av] 187.00 [lb_av] [facility] T ([facility] Body height 60.5 [in_i] 60.5 [in_i] [facility] ([facility] 5'0.50" Respiratory rate [...] Body height 60.5 [in_i] 60.5 [in_i] [facility] ([facility] 5'0.50" Respiratory rate 18 /min 18 /min [facility] ( [facility] Heart rate 60 /min 60 /min [facility] ([facility] Body temperature 97.8 [degF] 97.8 [degF] [facility] ([facility] Diastolic blood pressure 76 mm[Hg] 76 mm[Hg] [facility] ([facility] Systolic blood pressure 116 mm[Hg] 116 mm[Hg] [facility] Oxygen saturation in Arterial blood by Pulse oximetry 98 % 98 % [facility] ([facility] Body mass index (BMI) [Ratio] 35.5 kg/m2 35.5 k g/m2 [facility] ([facility] Body weight 185.00 [lb_av] 185.00 [lb_av] [facility] T ([facility] Oxygen saturation in Arterial blood by Pulse oximetry 98 % 98 % [facility] ([facility] Body mass index (BMI) [Ratio] 35.7 kg/m2 35.7 k g/m2 [facility] ([facility] Body weight 186.00 [lb_av] 186.00 [lb_av] [facility] T ([facility] Body height 60.5 [in_i] 60.5 [in_i] [facility] ([facility] 5'0.50" Respiratory rate 16 /min 16 /min [facility] ( [facility] Heart rate 66 /min 66 /min [facility] ([facility] Body temperature 98.3 [degF] 98.3 [degF] [facility] ([facility] Diastolic blood pressure 72 mm[Hg] 72 mm[Hg] SHANNAN ([facility] Systolic blood pressure 118 mm[Hg] 118 mm[Hg] Darrius SCHERER ([facility] Body weight 81.648 kg 81.648 kg [facility] ([facility], ) [place] body weight 100 [lb_av] 100 [lb_av] [facility], ) Body mass index (BMI) [Ratio] 36.4 kg/m2 36.4 k g/m2 [facility] ([facility], ) Body weight 180.00 [lb_av] 180.00 [lb_av] [facility], ) Body height 59 [in_i] 59 [in_i] [facility] ([facility], ) 4'11" Diastolic blood pressure 70 mm[Hg] 70 mm[Hg] [facility] ([facility], ) Systolic blood pressure 134 mm[Hg] 134 mm[Hg] Darrius SCHERER ([facility], )
[2020-04-08 19:36] LABS: HEMOGLOBIN A1c 7.9 %
[2020-04-08 19:38] LABS: BASO % 0.1 % (0.0-1.0); EOS # 0.1 10^3/uL (0.0-0.5); HEMOGLOBIN 10.4 g/dl (12.0-15.5); LYMPH # 2.2 10^3/uL (1.5-5.0); LYMPH % 32.1 % (24.0-44.0); MEAN CORPUSCULAR HGB CONC 29.7 g/dl (32.0-36.5); MEAN CORPUSCULAR VOLUME 84.1 fl (80.0-96.0); MONO # 0.4 10^3/uL (0.0-0.8); MONO % 5.9 % (0.0-8.0); NEUTROPHILS # 4.1 10^3/uL (1.5-8.5); NEUTROPHILS % 59.6 % (36.0-66.0); PLATELET COUNT, AUTOMATED 284 10^3/uL (150-450); RED BLOOD COUNT 4.16 10^6/uL (4.00-5.40)
[2020-04-08 19:46] LABS: OSMOLALITY SERUM 301 MOSM/KG (280-301)
[2020-04-08 19:59] LABS: ACETONE/KETONE 1.15 MG/DL (<2.81); ALBUMIN 3.2 GM/DL (3.2-5.2); ALT/SGPT 22 U/L (12-78); BILIRUBIN,DIRECT < 0.1 MG/DL (0.0-0.2); BILIRUBIN,TOTAL < 0.1 MG/DL (0.2-1.0); BLOOD UREA NITROGEN 22 MG/DL (7-18); CALCIUM LEVEL 9.1 MG/DL (8.8-10.2); CARBON DIOXIDE LEVEL 31 MEQ/L (21-32); CHLORIDE LEVEL 98 MEQ/L (98-107); CK-MB VALUE MASS 1.6 NG/ML (<3.6); CPK CREATINE PHOSPHOKINASE 102 U/L (26-192); CREATININE FOR GFR 0.92 MG/DL (0.55-1.30); GLOMERULAR FILTRATION RATE > 60.0 (>39); GLUCOSE, FASTING 333 MG/DL (70-100); LIPASE 215 U/L (73-393); MAGNESIUM LEVEL 1.8 MG/DL (1.8-2.4); MB/CK RELATIVE INDEX 1.57 (< OR =4); POTASSIUM SERUM 4.3 MEQ/L (3.5-5.1); SODIUM LEVEL 136 MEQ/L (136-145); TOTAL PROTEIN 6.1 GM/DL (6.4-8.2); TROPONIN I < 0.02 NG/ML (< 0.10)
[2020-04-08 20:16] VITALS: BP 177/96
--- NOTE | 2020-04-09 07:45 | ECGEPIP ---
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
== END 2020-04-08 20:49 | disposition home or self-care (01) ==
LOC: EDBD 17:32 → M ED 17:32
DX: E11.65 Type 2 diabetes mellitus with hyperglycemia (principal); I10 Essential (primary) hypertension; E78.5 Hyperlipidemia, unspecified; F33.9 Major depressive disorder, recurrent, unspecified; K21.9 Gastro-esophageal reflux disease without esophagitis; Z91.048 Other nonmedicinal substance allergy status; Z79.899 Other long term (current) drug therapy; Z79.82 Long term (current) use of aspirin; Z79.4 Long term (current) use of insulin

== ENCOUNTER 2020-04-20 16:23 | Emergency (ER) | payer MEDICARE, OTHER ==
[~2020-04-20] VITALS: Ht 149.9 cm; Wt 88.5 kg
[2020-04-20 17:00] LABS: BASO % 0.2 % (0.0-1.0); EOS # 0.1 10^3/uL (0.0-0.5); EOS % 0.5 % (0.0-3.0); HEMATOCRIT 40.2 % (36.0-47.0); HEMOGLOBIN 11.8 g/dl (12.0-15.5); LYMPH # 1.4 10^3/uL (1.5-5.0); LYMPH % 11.3 % (24.0-44.0); MEAN CORPUSCULAR HEMOGLOBIN 25.3 pg (27.0-33.0); MEAN CORPUSCULAR HGB CONC 29.4 g/dl (32.0-36.5); MEAN CORPUSCULAR VOLUME 86.3 fl (80.0-96.0); MONO # 0.6 10^3/uL (0.0-0.8); MONO % 4.5 % (2.0-8.0); NEUTROPHILS # 10.2 10^3/uL (1.5-8.5); NEUTROPHILS % 82.8 % (36.0-66.0); PLATELET COUNT, AUTOMATED 296 10^3/uL (150-450); RED BLOOD COUNT 4.66 10^6/uL (4.00-5.40); WHITE BLOOD COUNT 12.3 10^3/uL (4.0-10.0)
[2020-04-20 17:49] LABS: ALBUMIN 3.6 GM/DL (3.2-5.2); ALT/SGPT 20 U/L (12-78); BILIRUBIN,DIRECT < 0.1 MG/DL (0.0-0.2); BILIRUBIN,TOTAL < 0.1 MG/DL (0.2-1.0); CK-MB VALUE MASS < 1.0 NG/ML (<3.6); CPK CREATINE PHOSPHOKINASE 81 U/L (26-192); LIPASE 270 U/L (73-393); MB/CK RELATIVE INDEX 1.23 (< OR =4); TOTAL PROTEIN 6.7 GM/DL (6.4-8.2); TROPONIN I < 0.02 NG/ML (< 0.10)
[2020-04-20 19:16] VITALS: BP 151/84
--- NOTE | 2020-04-21 19:49 | ECGEPIP ---
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
== END 2020-04-20 20:10 | disposition home or self-care (01) ==
LOC: EDBD 16:23 → M ED 16:23
DX: T38.3X1A Poisoning by insulin and oral hypoglycemic [antidiabetic] drugs, accidental (unintentional), initial encounter (principal); Y92.9 Unspecified place or not applicable; Y93.9 Activity, unspecified; R00.1 Bradycardia, unspecified; E11.9 Type 2 diabetes mellitus without complications; I10 Essential (primary) hypertension; K21.9 Gastro-esophageal reflux disease without esophagitis; F41.9 Anxiety disorder, unspecified; F32.9 Major depressive disorder, single episode, unspecified; Z79.4 Long term (current) use of insulin; Z79.82 Long term (current) use of aspirin; Z79.899 Other long term (current) drug therapy; Z91.89 Other specified personal risk factors, not elsewhere classified

== ENCOUNTER → 2020-05-05 | Outpatient (CLI) | payer MEDICARE, OTHER ==
[~2020-05-05] MED LIST changes: +CALCCAP4 PO
== END ==
LOC: M LABSMTC 09:49
PROVIDERS: ATTEND Anesthesiology
DX: Z01.812 Encounter for preprocedural laboratory examination (principal); Z20.822 Contact with and (suspected) exposure to COVID-19

== ENCOUNTER 2020-05-10 11:01 | Day surgery (SDC) | payer MEDICARE, OTHER ==
[~2020-05-10] VITALS: Ht 149.9 cm; Wt 80.7 kg
[~2020-05-10 11:01] MED LIST changes: +LIDOCAINE 1% MDV 20ML VIAL SQ PRN; +LIDOCAINE 2% 100MG/5ML SDV (FOR ANES.) As Ordered ONE; +LR 1,000 ML IV ONE; +MIDAZOLAM INJ 2MG/2ML VIAL (J2250 PER 1MG) As Ordered ONE; +ONDANSETRON 4MG/2ML VIAL As Ordered ONE; +ceFAZolin SOD 2 GM in IV 1 EA IV ONE; +dexameTHASONE 4 MG/ML 1ML VIAL (J1100 PER 1MG) As Ordered ONE; +fentaNYL 100 MCG/2 ML INJECTION (J3010) As Ordered ONE; +propofoL 200 MG/20 ML VIAL As Ordered ONE
[2020-05-10] MEDS ORDERED: PANT40TA29 (11:36)
[2020-05-10] MEDS ORDERED: BUPIVACAINE HCL 0.25% 30ML VIAL As Ordered ONE (12:20)
[2020-05-10] MEDS ORDERED: LIDOCAINE 1% SDV 30ML VIAL As Ordered ONE (12:20)
[2020-05-10] MEDS ORDERED: oxyCODONE 5MG TAB PO PRN (13:55)
[2020-05-10] MEDS ORDERED: fentaNYL 100 MCG/2 ML INJECTION (J3010) IV PRN (13:55)
[2020-05-10] MEDS ORDERED: LR 1,000 ML IV SCH (13:55)
[2020-05-10] MEDS ORDERED: HYDROMORPHONE HCL 0.5 MG/ 0.5 ML SYRINGE (J1170 PER 1) IV PRN (13:55)
[2020-05-10] MEDS ORDERED: ONDANSETRON 4MG/2ML VIAL IV PRN (13:55)
[2020-05-10] MEDS ORDERED: NORCO, ANEXSIA 5/325MG TABLET (HYDROcodone/ACETAMINOPHEN) PO PRN (14:00)
[2020-05-10 15:10] VITALS: BP 164/78
--- NOTE | 2020-05-20 12:38 | ROOPDOC ---
[facility] Report Of Operation Report of Operation DATE OF PROCEDURE: 05/10/20 PREPROCEDURE DIAGNOSES lipodystrophic fat tissues vs lipoma abdominal wall. POSTPROCEDURE DIAGNOSES: same. PROCEDURE: Excision of lipodystrophic skin and fat tissues abdominal wall x 2. SURGEON: Richard Barnes MD INTERNATIONAL ACCOUNT EXECUTIVE: ANESTHESIA: General Anesthesia (LMA). ESTIMATED BLOOD LOSS: Approximately 20 mL. COMPLICATIONS: . REMARKS: Patient is a 70-year-old female long-term diabetic was been injecting insulin to her abdominal wall multiple years and is noted this spongy swelling on top of her umbilicus on both sides. She reports some mild discomfort when this is manipulated with otherwise denies any associated swelling, drainage, erythema prominent. After full discussion with the patient, especially my presumption is that this of lipodystrophy changes from the fat and skin from her insulin shots, patient would like to have the area excised. She has a prior history of cervical cancer and she is most concerned that she may have recurrence or new cancers and removing this will set her mind at ease. PROCEDURE NOTE: No clear demarcation from the enlarged lipodystrophy of thick fat underneath the thinned out skin on both sides of the upper portion of the umbilicus consisted morbid lipodystrophy fat tissue than a lipoma. DESCRIPTION OF PROCEDURE: Being diabetic, I gave her a dose of Ancef 2 g IV preoperatively for surgical prophylaxis. She was brought to the operating room, placed supine on the table. TEDs and bilateral sequential compression devices placed on lower extremities were DVT prophylaxis. Gen. anesthesia per for via laryngeal mask airway. Her abdomen then prepped and draped in the usual sterile fashion. We paused for a surgical timeout using both pre-incision safety checklist to verify correct patient, procedure site and additional clinical information prior to beginning the procedure She has to prominent bulging lifting the skin out and thinning the skin with the right side more prominent than the left side at the superior portion of her umbilical cleft. This is not connect to the fascia and then likely a hernia. The skin is bulging outward and thinned out. I started on the left side which is a smaller side this was liberally infiltrated with local anesthesia. A cruciate skin incision was then created and deepened taking the lipodystrophy of thick fat with large globules down to remove all the bulging skin and soft tissue. Hemostasis then performed with Bovie cautery. This then closed in layers with 3- 0 Vicryl at the deep and superficial subcutaneous tissue and 4-0 Monocryl to close the skin subcuticularly. We then turned our attention to the larger bulging on the right side of the top portion of the umbilicus. Similarly this was infiltrated with our local anesthesia mixture. A larger cruciate skin incision was then created removing the thinned out skin on top of the bulging in this was taken deep to the subcutaneous tissue to remove the enlarged lipodystrophy fat. Like the other side there was no filmy capsule the enlarged fat tissue from the regular fat tissue which is common with a lipoma. Again hemostasis was performed with Bovie cautery and the incision was closed in layers with 3-0 Vicryl at the deep and superficial subcutaneous tissue and 4-0 Monocryl to close the skin in a subcuticular fashion. Steri-Strips, gauze dressings and Tegaderm then used to cover the incision. Patient tolerated the procedure well, she was properly awakened, extubated and brought to recovery room in stable condition. RICHARD BARNES MD May 20, 2020 12:38
== END 2020-05-10 15:24 | disposition home or self-care (01) ==
LOC: M SDC 11:01
PROVIDERS: ATTEND Surgery
DX: D17.1 Benign lipomatous neoplasm of skin and subcutaneous tissue of trunk (principal); E11.8 Type 2 diabetes mellitus with unspecified complications; I10 Essential (primary) hypertension; F32.9 Major depressive disorder, single episode, unspecified; E78.00 Pure hypercholesterolemia, unspecified; K21.9 Gastro-esophageal reflux disease without esophagitis; M19.90 Unspecified osteoarthritis, unspecified site; G40.909 Epilepsy, unspecified, not intractable, without status epilepticus; J45.909 Unspecified asthma, uncomplicated; M62.9 Disorder of muscle, unspecified; Z85.41 Personal history of malignant neoplasm of cervix uteri; Z85.42 Personal history of malignant neoplasm of other parts of uterus; Z87.891 Personal history of nicotine dependence; Z91.048 Other nonmedicinal substance allergy status; Z79.899 Other long term (current) drug therapy; Z79.82 Long term (current) use of aspirin; Z79.4 Long term (current) use of insulin; Z79.51 Long term (current) use of inhaled steroids
CPT/HCPCS: 22902; 88304; J0690; J2250; J2405; J3010

== ENCOUNTER 2020-05-17 16:34 | Inpatient (IN) | payer MEDICARE, OTHER ==
[~2020-05-17] VITALS: Ht 149.9 cm; Wt 83.6 kg
[~2020-05-17 16:34] MED LIST changes: -LIDOCAINE 1% MDV 20ML VIAL SQ PRN; -LIDOCAINE 2% 100MG/5ML SDV (FOR ANES.) As Ordered ONE; -LR 1,000 ML IV ONE; -MIDAZOLAM INJ 2MG/2ML VIAL (J2250 PER 1MG) As Ordered ONE; -ONDANSETRON 4MG/2ML VIAL As Ordered ONE; -ceFAZolin SOD 2 GM in IV 1 EA IV ONE; -dexameTHASONE 4 MG/ML 1ML VIAL (J1100 PER 1MG) As Ordered ONE; -fentaNYL 100 MCG/2 ML INJECTION (J3010) As Ordered ONE; -propofoL 200 MG/20 ML VIAL As Ordered ONE
[2020-05-17 17:12] LABS: BASO % 0.2 % (0.0-1.0); EOS % 0.3 % (0.0-3.0); HEMATOCRIT 48.9 % (36.0-47.0); HEMOGLOBIN 14.6 g/dl (12.0-15.5); LYMPH # 0.9 10^3/uL (1.5-5.0); LYMPH % 6.5 % (24.0-44.0); MEAN CORPUSCULAR HEMOGLOBIN 26.5 pg (27.0-33.0); MEAN CORPUSCULAR HGB CONC 29.9 g/dl (32.0-36.5); MEAN CORPUSCULAR VOLUME 88.9 fl (80.0-96.0); MONO # 0.5 10^3/uL (0.0-0.8); MONO % 3.8 % (2.0-8.0); NEUTROPHILS # 11.6 10^3/uL (1.5-8.5); NEUTROPHILS % 88.7 % (36.0-66.0); PLATELET COUNT, AUTOMATED 340 10^3/uL (150-450); WHITE BLOOD COUNT 13.1 10^3/uL (4.0-10.0)
[2020-05-17] MEDS ORDERED: GLUCOSE 4GM CHEW TABLET PO PRN ×2 (17:25→19:30)
[2020-05-17] MEDS ORDERED: GLUCAGON INJ 1MG VIAL SC PRN ×2 (17:25→19:30)
[2020-05-17] MEDS ORDERED: DEXTROSE 50% 50 ML SYRINGE IV PRN ×2 (17:25→19:30)
[2020-05-17] MEDS ORDERED: HumaLOG INSULIN (NovoLOG) PER UNIT SC SCH ×2 (17:30→20:00)
[2020-05-17 17:44] LABS: ALBUMIN 4.6 GM/DL (3.2-5.2); ALT/SGPT 24 U/L (12-78); BILIRUBIN,DIRECT < 0.1 MG/DL (0.0-0.2); BILIRUBIN,TOTAL 0.3 MG/DL (0.2-1.0); BLOOD UREA NITROGEN 27 MG/DL (7-18); CALCIUM LEVEL 10.1 MG/DL (8.8-10.2); CARBON DIOXIDE LEVEL 29 MEQ/L (21-32); CHLORIDE LEVEL 102 MEQ/L (98-107); CREATININE FOR GFR 1.31 MG/DL (0.55-1.30); GLOMERULAR FILTRATION RATE 42.7 (>39); GLUCOSE, FASTING 78 MG/DL (70-100); POTASSIUM SERUM 5.3 MEQ/L (3.5-5.1); SODIUM LEVEL 135 MEQ/L (136-145)
--- NOTE | 2020-05-17 17:46 | REP ---
INDICATION: RECENT SURGERY, AMS, POOR RESPIRATIONS. COMPARISON: Comparison portable chest x-ray April 08, 2020. TECHNIQUE: Portable upright AP chest radiograph. FINDINGS: The lungs are well inflated and free of infiltrate. Pleural angles are sharp. Heart size is normal. Pulmonary vasculature is not increased. The thoracic aorta is somewhat calcific. EKG monitoring electrodes are seen. There are 2 healing rib fractures on the left. There is fullness in the right paratracheal region consistent with tortuous innominate vessels. This is unchanged from March 2018. IMPRESSION: No active disease. <Electronically signed by Juan David Griffin > 05/17/20 [id number]
[2020-05-17] MEDS ORDERED: HUMA100I3 SC (18:58)
[2020-05-17] MEDS ORDERED: INDA25TAB PO (18:58)
[2020-05-17] MEDS ORDERED: INSUHUMDS SC ×2 (18:58)
[2020-05-17] MEDS ORDERED: METF-839 PO (18:59)
--- NOTE | 2020-05-17 19:08 | REPVR ---
PROCEDURE INFORMATION: Exam: CT Head Without Contrast Exam date and time: 05/17/2020 6:06 PM Age: 70 years old Clinical indication: Altered mental status/memory loss TECHNIQUE: Imaging protocol: Computed tomography of the head without contrast. Radiation optimization: All CT scans at this facility use at least one of these dose optimization techniques: automated exposure control; mA and/or kV adjustment per patient size (includes targeted exams where dose is matched to clinical indication); or iterative reconstruction. COMPARISON: CT Head without contrast 11/10/2015 10:27 PM FINDINGS: Brain: There is no CT evidence for an acute large vessel territorial infarct. There are mild non-specific foci of low attenuation in the periventricular white matter, which are likely the sequela of chronic small vessel ischemic injury and are similar in appearance compared to the prior CT head on 11/10/2015. No acute intracranial hemorrhage is seen. No mass effect, midline shift, or herniation is noted. Cerebral ventricles: The ventricles are mildly dilated in proportion to the sulci, which is compatible with mild generalized cerebral volume loss that is similar in appearance compared to the prior CT head on 11/10/2015. Bones/joints: The skull is intact. No suspicious osteolytic or osteoblastic lesion. Paranasal sinuses: There is mild opacification of the right ethmoid sinus. The sinuses were not fully imaged. Mastoid air cells: Clear. Vasculature: There are atherosclerotic calcifications of the intracranial portion of the vertebral arteries and internal carotid arteries. Soft tissues: Unremarkable. No soft tissue fluid collection. IMPRESSION: No acute intracranial abnormality. Electronically signed by: Ganga Jay On 05/17/2020 19:07:15 PM
[2020-05-17] MEDS ORDERED: MAALOX 30 ML SUSP *UDC PO PRN (19:30)
[2020-05-17] MEDS ORDERED: MOM 30ML SUSPENSION UDC PO PRN (19:30)
[2020-05-17] MEDS ORDERED: med rec comment (19:30)
--- NOTE | 2020-05-17 19:33 | HPEPDOC ---
[facility] Medical History & Physical Date of Admission May 18, 2020 Date of Service: May 18, 2020 Other Provider Jamison Quiros MD Attending Physician: NORA HUNTER MD History and Physical TIME OF SERVICE: 1002PM CHIEF COMPLAINT: fall HISTORY OF PRESENT ILLNESS: Earlier on today this 70 yr old F was sitting in her chair drinking flavored water; she fell asleep and according to her niece she as not waking up so her neice called 911 and checked her sugar and found that it was 24. When EMS arrived she was only responsive to pain and was given IM glucagon. The patient admits to having a poor appetite recently and unintentional weight loss. She denied having f/n/v/d/ runny nose or cough. She reports having subjective chills. She has had her first COVID vaccine and had an abdominal lipoma resected by last week. She was hospitalized for hypoglycemia in Mar as well. REVIEW OF SYSTEMS: 12-point review of systems negative except as listed in HPI PAST MEDICAL/ SURGICAL HISTORY: Diabetes Hypertension Hypercholesterolemia uterine cancer, status post , hysterectomy obesity chronic abdominal pain Hysterectomy Resection of abdominal lipoma arm surgery SOCIAL HISTORY: quit smoking and tobacco abuse. Retired. Previously worked for [employer] FAMILY HISTORY: Father of liver cirrhosis, CAD, [place]. Mother CAD ALLERGIES: Please see below. HOME MEDICATIONS: Please see below. PHYSICAL EXAMINATION: Vital Signs Date Time Temp Pulse Resp B/P (MAP) Pulse Ox O2 Delivery O2 Flow Rate FiO2 05/17/20 16:48 103/70 (81) 05/17/20 16:49 66 20 100 Room Air 05/17/20 19:30 97.8 GENERAL APPEARANCE: well nourished and developed/ NAD HEENT: EOMI CARDIOVASCULAR: RRR/NMRG LUNGS: CTAB on RA ABDOMEN: healing mid-lower abdominal scar from lipoma / abd slightly tender at incision site MUSCULOSKELETAL: NCAT / ROMIx 4 INTEGUMENT: not flushed or pale NEUROLOGICAL: CN 2-12 grossly intact /speech not dysarthric PSYCHIATRIC: A&Ox 3 /able to understand and follow commands LABORATORY DATA: 05/17/20 16:54 05/17/20 21:46 IMAGING: Chest xray IMPRESSION: No active disease. CT head IMPRESSION: No acute intracranial abnormality. MICROBIOLOGY: respiratory panel neg ASSESSMENT: is a 70 yr old w a hx of diabetes, hypertension, hypercholesterolemia, uterine cancer, status post , hysterectomy, obesity, cyst on her head-Benign, chronic abdominal pain and recent abdominal lipoma resection who will be admitted for management of recurrent hypoglycemia & NORMA. PLAN: 1 Recurrent hypoglycemia / IDDM Plan: consistent carbohydrate diet / FSBS Q4H / hypoglycemia protocol / hold all insulin and anti-glycemic agents for at least 48 H to allow her body to recalibrate & tolerate accuchecks as high as 299 (she reports having episodes of asymptomatic hypoglycemia and was talking to me and alert with repeat accuchecks in the 30s and 40s) / f/u A1C (target for her age and co-morbidities is about 8 to 8.5%, if it is lower than this her insulin should be reduced / if she remains on insulin her PCP may consider out pt Endo referral to switch the patient from basal bolus injection to continuous subcutaneous insulin infusion which has been shown to produced small improvements in A1C, improve QOL and reduce episodes of severe hypoglycemia 2 NORMA Plan: monitor UOP / IVF / f/u renal panel, CK, Ulytes for FENa or FEUrea / renal US / hold nephrotoxic drugs (ie hold Indapamide, Metformin & Lisinopril) 3 Hyperkalemia 2/2 NORMA Plan: telemetry / hold KCl / f/u repeat K 4 Leucocytosis Reactive Plan: monitor vitals 5 Recent Lipoma resection Plan: bacitracin ointment 6 Hypertension Plan: start amlodipine while home meds are on hold 7 Hypercholesterolemia Plan: Lovastatin 8 HENNY Plan: f/u w PCP for iron supplements & work up 9 Obesity Complicates care DVT px w SCDs Dispo: home after at least 2 midnights stay Home Medications Scheduled Aspirin (Aspirin EC) 81 Mg Tab, 81 MG PO DAILY Calcium Carbonate/Vitamin D3 (Calcium 600 + Vit D 400 Softgl) 1 Each Capsule, 1 CAP PO DAILY Indapamide (Indapamide) 2.5 Mg Tablet, 2.5 MG PO DAILY Insulin Detemir (Levemir) 100 Unit/1 Ml Vial, 25 UNITS SC DAILY Insulin Human Lispro (Humalog) 100 Unit/1 Ml Vial, 15 UNITS SC AC Insulin Lispro (Humalog) 100 Unit/1 Ml Cartridge, 15 UNITS SC QHS Lisinopril (Lisinopril) 10 Mg Tab, 10 MG PO DAILY Lovastatin (Lovastatin) 40 Mg Tab, 40 MG PO BID Magnesium Oxide (Magnesium Oxide) 400 Mg Tablet, 400 MG PO DAILY Metformin HCl (Metformin HCl) 500 Mg Tablet, 500 MG PO DAILY Pioglitazone HCl (Pioglitazone HCl) 45 Mg Tab, 45 MG PO DAILY Potassium Chloride (Klor-Con M10) 10 Meq Tabcr, 10 MEQ PO DAILY Scheduled PRN Albuterol Sulfate (Proair Hfa) 8.5 Gm Hfa.aer.ad, 2 PUFF INH Q6H PRN for SHORTNESS OF BREATH Miscellaneous Medications [med rec comment] spoke with patient,she doesnt seem clear on insulin Humulin/humalog . used list from home and external Allergies Coded Allergies: adhesive tape (Verified Allergy, Unknown, RASH, 08/30/19) A-FIB/CHADSVASC A-FIB History Current/History of A-Fib/PAF?: No Current PO Anticoag Therapy: No NORA HUNTER MD May 17, 2020 19:33
[2020-05-17 19:40] LABS: RSV AMPLIFICATION NEGATIVE (NEGATIVE)
[2020-05-17 21:26] VITALS: BP 152/76
[2020-05-17 22:22] LABS: POTASSIUM SERUM 4.1 MEQ/L (3.5-5.1)
--- NOTE | 2020-05-17 22:35 | ECGEPIP ---
[facility] - ED Test Date: 2020-05-17 Pat Name: SARMAD HERNANDEZ Department: Room: - Gender: Female Loaders: ALEXIS : 1950 Requested By: Tree Link Order Number: [id number] Reading MD: Ankur Adams Measurements Intervals [place] Rate: 63 P: ND: 136 QRS: 86 QRSD: 74 T: 39 QT: 424 QTc: 433 Interpretive Statements Normal sinus rhythm Nonspecific ST-T wave abnormalities Similar to tracing done 04-08-20 Electronically Signed on 05-17-2020 22:35:48 EDT by Ankur Adams
[2020-05-17] MEDS: NS 1,000 ML IV SCH (22:46)
[2020-05-17] MEDS ORDERED: ALBUTEROL 90 MCG/ACT 8GM HFA INHALER INH PRN (23:00)
[2020-05-17] MEDS: SIMVASTATIN 40 MG TAB PO SCH (23:16)
[2020-05-18 00:02] LABS: APPEARANCE, URINE CLEAR (CLEAR); BACTERIA, URINE AUTO NEGATIVE (NEGATIVE); BILIRUBIN, URINE AUTO NEGATIVE (NEGATIVE); BLOOD, URINE BLOOD NEGATIVE (NEGATIVE); COLOR, URINE YELLOW (YELLOW); GLUCOSE, URINE (UA) AUTO NEGATIVE (NEGATIVE); KETONE, URINE AUTO NEGATIVE (NEGATIVE); LEUKOCYTE ESTERASE, URINE AUTO NEGATIVE (NEGATIVE); NITRITE, URINE AUTO NEGATIVE (NEGATIVE); PROTEIN, URINE AUTO NEGATIVE (NEGATIVE); RBC, URINE AUTO 0 /HPF (0-3); SPECIFIC GRAVITY URINE AUTO 1.011 (1.002-1.035); SQUAMOUS EPITHELIAL CELL UR AU 0 /HPF (0-6); UROBILINOGEN, URINE AUTO 0.2 mg/dL (0.0-2.0); WBC, URINE AUTO 0 /HPF (0-3)
[2020-05-18 00:30] LABS: CREATININE,RANDOM URINE 36.3 MG/DL; POTASSIUM RANDOM URINE 37.2 MEQ/L
[2020-05-18] MEDS: BACITRACIN OINTMENT 30GM TUBE TOP SCH ×2 (01:11→08:52)
[2020-05-18 06:00] VITALS: BP 132/58
[2020-05-18 06:36] LABS: HEMATOCRIT 35.8 % (36.0-47.0); MEAN CORPUSCULAR HEMOGLOBIN 26.4 pg (27.0-33.0); MEAN CORPUSCULAR HGB CONC 30.7 g/dl (32.0-36.5); MEAN CORPUSCULAR VOLUME 85.9 fl (80.0-96.0); PLATELET COUNT, AUTOMATED 267 10^3/uL (150-450); RED BLOOD COUNT 4.17 10^6/uL (4.00-5.40); WHITE BLOOD COUNT 7.6 10^3/uL (4.0-10.0)
[2020-05-18 06:44] LABS: HEMOGLOBIN A1c 7.6 %
[2020-05-18 06:56] LABS: BLOOD UREA NITROGEN 20 MG/DL (7-18); CALCIUM LEVEL 8.9 MG/DL (8.8-10.2); CARBON DIOXIDE LEVEL 29 MEQ/L (21-32); CHLORIDE LEVEL 106 MEQ/L (98-107); CREATININE FOR GFR 0.72 MG/DL (0.55-1.30); GLOMERULAR FILTRATION RATE > 60.0 (>39); GLUCOSE, FASTING 92 MG/DL (70-100); SODIUM LEVEL 140 MEQ/L (136-145)
[2020-05-18] MEDS: SIMVASTATIN 40 MG TAB PO SCH ×2 (08:52→20:23)
[2020-05-18] MEDS: CALCIUM/VITAMIN D 500 MG TAB PO SCH (08:52)
[2020-05-18] MEDS ORDERED: ASPIRIN 81MG ENTERIC TABLET PO SCH (09:00)
[2020-05-18] MEDS ORDERED: ENOXAPARIN 30MG/0.3ML SYRINGE (J1650 PER 10MG) SC SCH (09:00)
--- NOTE | 2020-05-18 10:02 | REP ---
INDICATION: NORMA. COMPARISON: Comparison CT study March 13, 2020.. TECHNIQUE: Urinary tract sonography. FINDINGS: Scanning at the level of the urinary bladder shows no abnormality. Renal cortical echogenicity pattern is normal bilaterally and contours are smooth. There is no evidence of hydronephrosis, cyst, mass, or calculus in either kidney. The right kidney measures 9.8 x 5.6 x 5.0 cm. Left renal dimensions are 9.1 x 3.9 x 4.0 cm. IMPRESSION: Normal urinary tract sonography. <Electronically signed by Juan David Griffin > 05/18/20 [id number]
--- NOTE | 2020-05-18 11:31 | IPNPDOC ---
Text Note Date of Service The patient was seen on 05/18/20. NOTE Subjective: Patient was seen and examined this morning at bedside. She tells me she's feeling much better now she was able to eat her breakfast. Tells me that she often has low blood sugars at home typically under 100. Denies any chest pain or shortness of breath. It was noted overnight events reported. Objective: Constitutional: Awake and alert, in no apparent distress obese ENT: Sclera are clear. Mucosa is moist. Respiratory: Lungs CTA bilaterally. No respiratory distress. No use of accessory muscles. Cardiovascular: RRR S1 and S2 are normal, no murmur Gastrointestinal: Abdomen is soft, non distended, BS present. She has lower abdominal healing incision site without erythema or drainage. Musculoskeletal: No edema. No joint deformities. Neurologic: No focal neurological deficit. Mental Status: A&O x3, normal affect Assessment/plan: Yanira is a 70 yr old w a hx of diabetes, hypertension, hypercholesterolemia, uterine cancer, status post , hysterectomy, obesity, cyst on her head-Benign, chronic abdominal pain and recent abdominal lipoma resection who will be admitted for management of recurrent hypoglycemia & NORMA. # Recurrent hypoglycemia with insulin-dependent diabetes: Her A1c is only 7.6. Her home dose of insulin is likely too high and will need to either be reduced or discontinued depending on how her sugars look over the coming day or 2. We will hold all insulin for the next 48 hours to allow her body to recalibrate. # NORMA: Resolved with IV fluids. Avoid nephrotoxins. Hold metformin and lisinopril. # Hyperkalemia: Resolved. Monitor. # Leucocytosis: Now resolved. Was likely reactive. # Recent Lipoma resection: bacitracin ointment # Hypertension: start amlodipine while home meds are on hold # Hypercholesterolemia: Lovastatin # HENNY: f/u w PCP for iron supplements & work up # Obesity: Complicates care DVT px w SCDs A [facility] Hospitalist Cali SALCEDO, I+O Cali SALCEDO I+O Laboratory Tests 05/17/20 16:54 05/17/20 21:46 05/18/20 05:53 Vital Signs Date Time Temp Pulse Resp B/P (MAP) Pulse Ox O2 Delivery O2 Flow Rate FiO2 05/18/20 06:00 97.0 69 18 132/58 (82) 98 Room Air I&O- Last 24 Hours up to 6 AM 05/18/20 06:00 Intake Total 1240 ml Output Total 1000 ml Balance 240 ml SUNIL ARCINIEGA MD May 18, 2020 11:31
[2020-05-18] MEDS: NS 1,000 ML IV SCH (12:22)
[2020-05-18 14:00] VITALS: BP 144/78
[2020-05-18 22:00] VITALS: BP 120/71
[2020-05-19] MEDS: ACETAMINOPHEN TAB 650MG DOSE (2X325MG) PO PRN ×2 (03:42→09:21)
[2020-05-19 05:01] LABS: BASO % 0.6 % (0.0-1.0); EOS # 0.3 10^3/uL (0.0-0.5); EOS % 3.7 % (0.0-3.0); HEMATOCRIT 33.5 % (36.0-47.0); HEMOGLOBIN 10.4 g/dl (12.0-15.5); LYMPH # 2.6 10^3/uL (1.5-5.0); LYMPH % 38.4 % (24.0-44.0); MEAN CORPUSCULAR HEMOGLOBIN 27.1 pg (27.0-33.0); MEAN CORPUSCULAR VOLUME 87.2 fl (80.0-96.0); MONO # 0.6 10^3/uL (0.0-0.8); MONO % 8.4 % (2.0-8.0); NEUTROPHILS # 3.3 10^3/uL (1.5-8.5); NEUTROPHILS % 48.8 % (36.0-66.0); PLATELET COUNT, AUTOMATED 259 10^3/uL (150-450); RED BLOOD COUNT 3.84 10^6/uL (4.00-5.40); WHITE BLOOD COUNT 6.8 10^3/uL (4.0-10.0)
[2020-05-19 05:38] LABS: BLOOD UREA NITROGEN 19 MG/DL (7-18); CALCIUM LEVEL 8.4 MG/DL (8.8-10.2); CARBON DIOXIDE LEVEL 28 MEQ/L (21-32); CHLORIDE LEVEL 107 MEQ/L (98-107); CREATININE FOR GFR 0.79 MG/DL (0.55-1.30); FERRITIN 11 NG/ML (8-252); GLOMERULAR FILTRATION RATE > 60.0 (>39); GLUCOSE, FASTING 200 MG/DL (70-100); IRON (FE) 76 UG/DL (50-170); PERCENT SATURATION 21.9 % (13.2-45.0); POTASSIUM SERUM 4.4 MEQ/L (3.5-5.1); SODIUM LEVEL 139 MEQ/L (136-145); TOTAL IRON BINDING CAPACITY 347 UG/DL (250-450)
[2020-05-19 06:00] VITALS: BP 122/72
[2020-05-19] MEDS ORDERED: MORPHINE 2 MG/ML 1ML VIAL (J2270) IV ONE (06:40)
[2020-05-19] MEDS: CALCIUM/VITAMIN D 500 MG TAB PO SCH (09:19)
[2020-05-19] MEDS: SIMVASTATIN 40 MG TAB PO SCH ×2 (09:20→20:18)
[2020-05-19] MEDS ORDERED: metFORMIN (GLUCOPHAGE) 500MG TAB PO SCH (09:30)
[2020-05-19 12:08] LABS: HEMATOCRIT 34.1 % (36.0-47.0); HEMOGLOBIN 10.4 g/dl (12.0-15.5)
[2020-05-19 14:00] VITALS: BP 143/55
--- NOTE | 2020-05-19 15:43 | IPNPDOC ---
Text Note Date of Service The patient was seen on 05/19/20. NOTE Subjective: And patient had a significant bleed from her abdomen last night. She just had a recent lipoma removal on 05/10/2020, and it is from this surgical site where she was bleeding. Per report from the nursing staff, she apparently lost a large quantity of blood and soaking into the sheets and onto the floor. Upon my examination this morning she did have an AVD pad in place with only a minimal amount of blood soaked into it, and no active bleeding at this time. The wound appears clean with no surrounding erythema, with wound edges approximated. The patient is complaining of some pain in the abdominal region, but it is significantly better at this time than it had been last night. She is complaining of a little bit of lightheadedness, but otherwise she does not have any other complaints is time. Her appetite seems to be fine, and she has not had any additional episodes of hypoglycemia, as a matter fact her sugars have been running a little high over the last 24 hours. Objective: Constitutional: Awake and alert, in no apparent distress obese ENT: Sclera are clear. Mucosa is moist. Respiratory: Lungs CTA bilaterally. No respiratory distress. No use of a ccessory muscles. Cardiovascular: RRR S1 and S2 are normal, no murmur Gastrointestinal: Abdomen is soft, non distended, BS present. She has lower abdominal healing incision site without erythema or drainage. Musculoskeletal: No edema. No joint deformities. Neurologic: No focal neurological deficit. Mental Status: A&O x3, normal affect Assessment/plan: Yanira is a 70 yr old w a hx of diabetes, hypertension, hypercholesterolemia, uterine cancer, status post , hysterectomy, obesity, cyst on her head-Benign, chronic abdominal pain and recent abdominal lipoma resection who will be admitted for management of recurrent hypoglycemia & NORMA. # Recurrent hypoglycemia with insulin-dependent diabetes: Sugars are running high now with discontinuation of all diabetic meds. Since NORMA is resolved, will restart metformin today. With such a good A1c, insulin is likely not needed. She will need close follow-up with PCP on d/c to monitor diabetes & prescribe other oral diabetic meds prior to reinitiation of insulin. # Acute blood loss anemia: She had a recent lipoma removal on 05/10/20 from her a bdomen just inferior to the umbilicus. She had a significant bleed from this site last night. On my exam today, it appears that the wound has closed and the bleeding stopped. H/H dropped quite a bit since the last 2 days, but remained stable from this morning to this afternoon. No hypotension, no tachycardia. Lovenox and aspirin discontinued. # NORMA: Resolved. Monitor. # Hyperkalemia: Resolved. Monitor. # Leucocytosis: Now resolved. Was likely reactive. # Recent Lipoma resection: bacitracin ointment # Hypertension: NORMA resolved. Stop amlodipine. Resume home meds of indapamide & lisinopril, continue to monitor. # Hypercholesterolemia: Lovastatin # HENNY: f/u w PCP for iron supplements & work up # Obesity: Complicates care DVT prophylaxis: Lovenox and aspirin have been discontinued due to acute bleeding. We'll continue with an teds and sequentials for now. VS,Fishbone, I+O VS, Fishbone, I+O Laboratory Tests 05/19/20 04:52 05/19/20 11:58 Vital Signs Date Time Temp Pulse Resp B/P (MAP) Pulse Ox O2 Delivery O2 Flow Rate FiO2 05/19/20 14:00 97.6 78 18 143/55 (84) 96 Room Air I&O- Last 24 Hours up to 6 AM 05/19/20 06:00 Intake Total 3430 ml Output Total 2675 ml Balance 755 ml ISSAC DELGADO DO May 19, 2020 15:43
[2020-05-19] MEDS: MAGNESIUM OXIDE 400MG TAB (MAG-OX) PO SCH (16:27)
[2020-05-19] MEDS: POTASSIUM CHLORIDE 10 MEQ SR TABLET PO SCH (16:27)
[2020-05-19] MEDS: INDAPAMIDE 1.25MG TABLET PO SCH (16:28)
[2020-05-19 22:00] VITALS: BP 133/51
[2020-05-20 06:00] VITALS: BP 106/52
[2020-05-20] MEDS ORDERED: metFORMIN (GLUCOPHAGE) 1000 MG TABLET PO SCH (08:00)
[2020-05-20 08:41] LABS: HEMATOCRIT 39.8 % (36.0-47.0); HEMOGLOBIN 11.8 g/dl (12.0-15.5); MEAN CORPUSCULAR HEMOGLOBIN 26.3 pg (27.0-33.0); MEAN CORPUSCULAR HGB CONC 29.6 g/dl (32.0-36.5); MEAN CORPUSCULAR VOLUME 88.8 fl (80.0-96.0); PLATELET COUNT, AUTOMATED 276 10^3/uL (150-450); RED BLOOD COUNT 4.48 10^6/uL (4.00-5.40); WHITE BLOOD COUNT 6.3 10^3/uL (4.0-10.0)
[2020-05-20 09:12] LABS: BLOOD UREA NITROGEN 19 MG/DL (7-18); CARBON DIOXIDE LEVEL 29 MEQ/L (21-32); CHLORIDE LEVEL 104 MEQ/L (98-107); CREATININE FOR GFR 0.83 MG/DL (0.55-1.30); GLOMERULAR FILTRATION RATE > 60.0 (>39); GLUCOSE, FASTING 246 MG/DL (70-100); POTASSIUM SERUM 4.2 MEQ/L (3.5-5.1); SODIUM LEVEL 139 MEQ/L (136-145)
[2020-05-20 09:40] VITALS: BP 131/52
[2020-05-20] MEDS: SIMVASTATIN 40 MG TAB PO SCH (09:40)
[2020-05-20] MEDS: MAGNESIUM OXIDE 400MG TAB (MAG-OX) PO SCH (09:40)
[2020-05-20] MEDS: POTASSIUM CHLORIDE 10 MEQ SR TABLET PO SCH (09:40)
[2020-05-20] MEDS: CALCIUM/VITAMIN D 500 MG TAB PO SCH (09:40)
[2020-05-20] MEDS: INDAPAMIDE 1.25MG TABLET PO SCH (09:41)
--- NOTE | 2020-05-20 10:14 | ROOPDOC ---
[facility] Report Of Operation Report of Operation LIANE SANTILLAN MD May 20, 2020 10:14
[2020-05-20] MEDS ORDERED: GLUC1000 PO (10:15)
--- NOTE | 2020-05-20 10:29 | CR ---
CONSULTATION DATE: 05/20/2020 HISTORY OF PRESENT ILLNESS: The patient underwent resection of a lipoma or area of lipodystrophy of the anterior abdominal wall just above the umbilicus by Dr. Barnes. This was done on an ambulatory basis. She had done apparently well with this and was discharged home as anticipated. She was admitted on the 17 of May after suffering an episode of hypoglycemia and being brought to the Emergency Department with mental status changes. She has been undergoing adjustment of her diabetes medications. On the evening of the 18 of May the patient apparently got up to the bathroom and noticed a lot of bloody drainage from her supraumbilical incision from her lipoma resection. Apparently, this drained down her legs and into the perineum and dripped all over the floor. Since the area was cleaned and covered, there has not been any drainage similar to that. She did have her labs rechecked after this event and it seems that her blood count had gone down some although her hematocrit on presentation may have been somewhat artificially elevated. I was asked by Dr. Renteria just to check the wound and see if I thought anything else needed to be done. MEDICAL HISTORY: Her medical history and other aspects of the history are all as noted in the admitting history and physical. PHYSICAL EXAMINATION: VITAL SIGNS: The patient is afebrile today as she has been since admission. Her blood pressure is good. GENERAL APPEARANCE: The patient is a pleasant alert older woman lying in bed. She is moderately obese. ABDOMEN: Examination of the abdomen reveals a recent incision, approximately 10 to 12 cm in length going transversely slightly above the umbilicus. There is a gauze and ABD pad dressing on top of this with some staining noted. She has bowel sounds present throughout the abdomen. The abdomen is soft and without significant tenderness except in the area of her recent surgery. The dressing is removed and there is a small area of bloody drainage on the dressing. There is some minimal pink discoloration above the top of the recent incision. This does not appear suggestive of cellulitis. There is no induration of the surrounding skin. Palpation reveals no definite underlying hematoma or seroma. The abdomen is soft. IMPRESSION: Patient has a transverse incision which appears to be healing well. There are no definite gaps in the wound closure. There is no ongoing blood loss currently although there was a small amount of older bloody fluid on the current dressing. The patient probably drained a wound seroma last night when she was up and moving around. I do not believe there is any significant evidence for a wound infection at this time and the incision still seems to be well-approximated. RECOMMENDATIONS: I would not recommend any other treatment at this time. I suspect this incident of drainage will not likely be repeated. Certainly, it is possible that she would collect enough fluid that it would drain spontaneously again. At this point, I would not recommend any further tests or treatments for the wound other than close observation.
[2020-05-20 10:58] LABS: VITAMIN B12 LEVEL 367 PG/ML (247-911)
[2020-05-20 10:59] LABS: FOLATE 16.8 NG/ML (>5.4)
--- NOTE | 2020-05-20 18:18 | DS.PDOC ---
Discharge Summary General Date of Admission May 17, 2020 at 19:35 Date of Discharge 05/20/2020 Discharge Summary PRIMARY CARE PHYSICIAN: Jamison Quiros MD ATTENDING AT TIME OF DISCHARGE: Dr. Antione Delgado, DISCHARGE DIAGNOS(E)S: Recurrent hypoglycemic episodes Acute kidney injury Hyperkalemia Leukocytosis Acute blood loss anemia superimposed on chronic anemia Hypertension Hypercholesterolemia Diabetes mellitus type 2 Obesity HPI & HOSPITAL COURSE: Mrs. Killian is a 70-year-old female who was admitted for evaluation of multiple recurrent episodes of hypoglycemia and acute kidney injury. AK I resolved fairly quickly (within 24 hours) with the administration of fluids. Her insulin was completely discontinued and her sugars slowly improved over the next few days, and then were actually running into the 200-300 range. Patient seems to be having difficulty with her insulin administration, therefore is recommended that she attempt to maximize all oral diabetic medications prior to reinitiation of this. Previously she was on metformin 500 mg daily, she was increased to metformin 1000 mg daily while inpatient after the resolution of her NORMA, and she is being sent home with a prescription for metformin 1000 mg twice a day, and she may resume her home dose of pioglitazone. She appears stable for discharge at this time, and her diabetes medications can be managed/adjusted on an outpatient basis by her PCP. She did have an episode of bleeding from her abdominal wound while inpatient. She recently had a lipoma removed is fairly large in size. Surgery was consulted, it is their suspicion that she had a seroma that broke free at that time. She did not have any subsequent bleeding after that single episode. PHYSICAL EXAMINATION ON DISCHARGE: GENERAL: Awake, alert, oriented 3 CARDIOVASCULAR EXAMINATION: Regular rate and rhythm, with no rubs, gallops, or murmur. RESPIRATORY EXAMINATION: Clear to auscultation bilaterally with no wheezes, rales, or rhonchi. ABDOMINAL EXAMINATION: Soft, nontender, nondistended. Bowel sounds present. Surgical incision does not have any surrounding erythema. Only minimal/scant blood noted on dressing today. Wound edges are approximated. EXTREMITIES: No clubbing or edema noted. 2+ pulses in the radial bilaterally. DISPOSITION: Home DISCHARGE INSTRUCTIONS: Follow-up with PCP within 7-10 days. Follow-up with Dr. Penny of surgery a previously scheduled appointment on 05/23/2020. Activity as tolerated, consistent carbohydrate diet recommended. If symptoms return, or if you experience worsening of your symptoms, please call your doctor or return to the emergency department. ITEMS THAT NEED OUTPATIENT FOLLOWUP: Recommend maximizing oral diabetic medications (Metformin, DPP 4, SGLT-2, GLP-1 Agonist for example) prior to reinitiation of insulin, as it seems that she has difficulty with the dosing of her insulin, and has recurrent hypoglycemic episodes. Vital Signs/I&Os Vital Signs Date Time Temp Pulse Resp B/P (MAP) Pulse Ox O2 Delivery O2 Flow Rate FiO2 05/20/20 09:40 131/52 05/20/20 06:00 97.2 62 18 96 05/19/20 14:00 Room Air I&O- Last 24 Hours up to 6 AM 05/20/20 06:00 Intake Total 1500 ml Output Total 2800 ml Balance -1300 ml Laboratory Data Labs 24H Laboratory Tests 2 05/19/20 20:17: Bedside Glucose (Misc Panel) 364H 05/20/20 06:05: Bedside Glucose (Misc Panel) 239H 05/20/20 08:10: Nucleated Red Blood Cells % (auto) 0.0, Anion Gap 6L, Glomerular Filtration Rate > 60.0, Calcium Level 9.0 05/20/20 12:08: Bedside Glucose (Misc Panel) 304H CBC/BMP Laboratory Tests 05/20/20 08:10 FSBS Laboratory Tests Test 05/19/20 20:17 05/20/20 06:05 05/20/20 12:08 Range/Units Bedside Glucose (Misc Panel) 364 239 304 83-110 MG/DL Microbiology Microbiology 05/19/20 Stool Occult Blood (HANNAH) - Final, Complete Discharge Medications Scheduled Aspirin (Aspirin EC) 81 Mg Tab, 81 MG PO DAILY, (Reported) Calcium Carbonate/Vitamin D3 (Calcium 600 + Vit D 400 Softgl) 1 Each Capsule, 1 CAP PO DAILY, (Reported) Indapamide (Indapamide) 2.5 Mg Tablet, 2.5 MG PO DAILY, (Reported) Lisinopril (Lisinopril) 10 Mg Tab, 10 MG PO DAILY, (Reported) Lovastatin (Lovastatin) 40 Mg Tab, 40 MG PO BID, (Reported) Magnesium Oxide (Magnesium Oxide) 400 Mg Tablet, 400 MG PO DAILY, (Reported) Metformin HCl (Glucophage) 1,000 Mg Tablet, 1,000 MG PO BID@ Pioglitazone HCl (Pioglitazone HCl) 45 Mg Tab, 45 MG PO DAILY, (Reported) Potassium Chloride (Klor-Con M10) 10 Meq Tabcr, 10 MEQ PO DAILY, (Reported) Scheduled PRN Albuterol Sulfate (Proair Hfa) 8.5 Gm Hfa.aer.ad, 2 PUFF INH Q6H PRN for SHORT NESS OF BREATH, (Reported) Miscellaneous Medications [med rec comment] , (Reported) spoke with patient,she doesnt seem clear on insulin Humulin/humalog . used list from home and external Allergies Coded Allergies: adhesive tape (Verified Allergy, Unknown, RASH, 08/30/19) ANTIONE DELGADO DO May 20, 2020 18:18
== END 2020-05-20 12:59 | disposition home or self-care (01) | DRG 638 ==
LOC: EDBD 16:34 → M ED 18:10 → M ED INP 19:35 → M MSPAV 21:26
PROVIDERS: ADMIT Internal Medicine; ATTEND Neuromusculoskeletal Medicine & OMM
DX: E11.649 Type 2 diabetes mellitus with hypoglycemia without coma (principal); D62 Acute posthemorrhagic anemia; L76.34 Postprocedural seroma of skin and subcutaneous tissue following other procedure; N17.9 Acute kidney failure, unspecified; E87.5 Hyperkalemia; I10 Essential (primary) hypertension; D72.829 Elevated white blood cell count, unspecified; E78.00 Pure hypercholesterolemia, unspecified; E66.9 Obesity, unspecified; Z79.899 Other long term (current) drug therapy; Z79.82 Long term (current) use of aspirin; Z85.89 Personal history of malignant neoplasm of other organs and systems; Z87.891 Personal history of nicotine dependence

== ENCOUNTER 2020-06-02 17:54 | Emergency (ER) | payer MEDICARE, OTHER ==
[~2020-06-02] VITALS: Ht 149.9 cm; Wt 78.6 kg
[~2020-06-02 17:54] MED LIST changes: +FERR324T21; -FERR325T16; +GLUC1000 PO; +INDA25TAB PO; +METF-839 PO; +med rec comment
[2020-06-02 19:15] VITALS: BP 170/98
== END 2020-06-02 19:23 | disposition home or self-care (01) ==
LOC: M ED 17:54
DX: T81.89XA Other complications of procedures, not elsewhere classified, initial encounter (principal); Y92.9 Unspecified place or not applicable; Y93.9 Activity, unspecified; E11.9 Type 2 diabetes mellitus without complications; I10 Essential (primary) hypertension; E78.5 Hyperlipidemia, unspecified; R56.9 Unspecified convulsions; J45.909 Unspecified asthma, uncomplicated; Z79.82 Long term (current) use of aspirin; Z79.84 Long term (current) use of oral hypoglycemic drugs; Z79.899 Other long term (current) drug therapy; Z91.89 Other specified personal risk factors, not elsewhere classified

== ENCOUNTER 2020-06-18 17:47 | Emergency (ER) | payer MEDICARE, OTHER ==
[~2020-06-18] VITALS: Ht 152.4 cm; Wt 80.9 kg
[2020-06-18] MEDS ORDERED: HUMU1INJ2 (18:08)
[2020-06-18] MEDS ORDERED: HYDR-3713 (18:08)
[2020-06-18] MEDS ORDERED: ISOVUE-370 76% 100ML VIAL As Ordered ONE (19:59)
[2020-06-18 20:03] LABS: BASO % 0.3 % (0.0-1.0); EOS # 0.4 10^3/uL (0.0-0.5); EOS % 5.1 % (0.0-3.0); HEMATOCRIT 39.5 % (36.0-47.0); LYMPH # 2.8 10^3/uL (1.5-5.0); LYMPH % 38.5 % (24.0-44.0); MEAN CORPUSCULAR HEMOGLOBIN 26.9 pg (27.0-33.0); MEAN CORPUSCULAR HGB CONC 30.4 g/dl (32.0-36.5); MEAN CORPUSCULAR VOLUME 88.6 fl (80.0-96.0); MONO # 0.4 10^3/uL (0.0-0.8); MONO % 5.8 % (2.0-8.0); NEUTROPHILS # 3.6 10^3/uL (1.5-8.5); NEUTROPHILS % 49.9 % (36.0-66.0); PLATELET COUNT, AUTOMATED 328 10^3/uL (150-450); RED BLOOD COUNT 4.46 10^6/uL (4.00-5.40); WHITE BLOOD COUNT 7.3 10^3/uL (4.0-10.0)
[2020-06-18 20:23] LABS: ALBUMIN 3.9 GM/DL (3.2-5.2); BILIRUBIN,DIRECT 0.1 MG/DL (0.0-0.2); BILIRUBIN,TOTAL 0.3 MG/DL (0.2-1.0); TOTAL PROTEIN 7.2 GM/DL (6.4-8.2)
--- NOTE | 2020-06-18 21:11 | REPVR ---
PROCEDURE INFORMATION: Exam: CT Abdomen And Pelvis With Contrast Exam date and time: 06/18/2020 8:16 PM Age: 70 years old Clinical indication: Abdominal pain; Generalized; Prior surgery; Surgery date: 1-6 months; Additional info: Generalized abd pain, recent surgery TECHNIQUE: Imaging protocol: Computed tomography of the abdomen and pelvis with contrast. Radiation optimization: All CT scans at this facility use at least one of these dose optimization techniques: automated exposure control; mA and/or kV adjustment per patient size (includes targeted exams where dose is matched to clinical indication); or iterative reconstruction. Contrast material: ISOVUE 370; Contrast volume: 100 ml; Contrast route: INTRAVENOUS (IV); COMPARISON: CT ABD/PEL W/IV ORAL CONTRAS 03/13/2020 9:19 PM FINDINGS: Lungs: Minimal fibro-atelectatic change in the medial right middle lobe. Liver: The liver attenuation is 85 Hounsfield units and the spleen is 123 Hounsfield units. Gallbladder and bile ducts: Normal. No calcified stones. No ductal dilation. Pancreas: Normal. No ductal dilation. Spleen: Normal. No splenomegaly. Adrenal glands: Normal. No mass. Kidneys and ureters: Normal. No hydronephrosis. Stomach and bowel: Suture line at the cecal tip suggesting prior appendectomy. Appendix: No evidence of appendicitis. Intraperitoneal space: Unremarkable. No free air. No significant fluid collection. Vasculature: There is mild calcification of the abdominal aorta with extension into the iliac arteries. Lymph nodes: Unremarkable. No enlarged lymph nodes. Urinary bladder: The urinary bladder is decompressed but appears grossly normal. Reproductive: Status post hysterectomy. Bones/joints: Unremarkable. No acute fracture. Soft tissues: Skin thickening with subcutaneous about the umbilicus with a small subcutaneous fluid collection toward the right measuring 15 mm which may reflect recent injection or postsurgical seroma. IMPRESSION: 1. Interval periumbilical skin thickening with subcutaneous infiltration and small fluid collection within the subcutaneous fat centered to the right of the umbilicus measuring 15 mm which may reflect residua of interval laparoscopic surgery with possible seroma. Abscess is not excluded. Recent subcutaneous injection may be a consideration. 2. Status post hysterectomy. 3. Mild fatty infiltration of the liver. 4. Otherwise negative CT abdomen/pelvis. Electronically signed by: Salvador Quiros On 06/18/2020 21:10:57 PM
[2020-06-18 22:08] VITALS: BP 140/60
== END 2020-06-18 22:19 | disposition home or self-care (01) ==
LOC: M ED 17:47 → EDBD 17:47 → EDSEX 17:47 → M ED 22:19
DX: L76.34 Postprocedural seroma of skin and subcutaneous tissue following other procedure (principal); I51.9 Heart disease, unspecified; E11.9 Type 2 diabetes mellitus without complications; I10 Essential (primary) hypertension; E78.5 Hyperlipidemia, unspecified; G89.29 Other chronic pain; R10.9 Unspecified abdominal pain; Z87.891 Personal history of nicotine dependence; Z79.82 Long term (current) use of aspirin; Z79.899 Other long term (current) drug therapy; Z91.89 Other specified personal risk factors, not elsewhere classified
CPT/HCPCS: 74177; 80047; 80076; 83690; 85025; 93041; 99285; Q9967

== ENCOUNTER 2020-07-02 21:27 | Inpatient (IN) | payer MEDICARE, OTHER ==
[~2020-07-02] VITALS: Ht 160 cm; Wt 87.4 kg
[~2020-07-02 21:27] MED LIST changes: +HUMU1INJ2; +HYDR-3713
[2020-07-02 22:01] LABS: BASO % 0.4 % (0.0-1.0); EOS # 0.2 10^3/uL (0.0-0.5); EOS % 1.4 % (0.0-3.0); HEMATOCRIT 38.5 % (36.0-47.0); HEMOGLOBIN 11.5 g/dl (12.0-15.5); LYMPH # 2.4 10^3/uL (1.5-5.0); LYMPH % 21.3 % (24.0-44.0); MEAN CORPUSCULAR HEMOGLOBIN 27.2 pg (27.0-33.0); MEAN CORPUSCULAR HGB CONC 29.9 g/dl (32.0-36.5); MONO # 0.7 10^3/uL (0.0-0.8); MONO % 5.9 % (2.0-8.0); NEUTROPHILS # 8.1 10^3/uL (1.5-8.5); NEUTROPHILS % 70.5 % (36.0-66.0); PLATELET COUNT, AUTOMATED 256 10^3/uL (150-450); RED BLOOD COUNT 4.23 10^6/uL (4.00-5.40); WHITE BLOOD COUNT 11.4 10^3/uL (4.0-10.0)
[2020-07-02 22:28] LABS: HEMOGLOBIN A1c 7.7 %
--- NOTE | 2020-07-02 23:28 | REPVR ---
PROCEDURE INFORMATION: Exam: XR Chest Exam date and time: 07/02/20 (10:53pm) Age: 70 years old Clinical indication: AMS TECHNIQUE: Imaging protocol: Portable CXR Views: 1 view COMPARISON: Portable CXR of 05/17/20 FINDINGS: Comparison is made with a portable CXR done on 05/17/20. Stable cardiomegaly. Mild elevation of the right hemidiaphragm (unchanged). No focal infiltrates. No pleural effusions. No pneumothorax. Right paratracheal soft tissue fullness again seen (unchanged) (probable great vessels). Degenerative changes again seen at each shoulder joint. IMPRESSION: No acute chest pathology. In general, a similar appearance was noted 7 weeks ago. Electronically signed by: Kristine Shirley On 07/02/2020 23:28:14 PM
[2020-07-02 23:37] LABS: AMPHETAMINES LEVEL URINE NEGATIVE (NEGATIVE); BARBITURATES URINE NEGATIVE (NEGATIVE); BENZODIAZEPINES URINE NEGATIVE (NEGATIVE); CANNABINOIDS URINE NEGATIVE (NEGATIVE); COCAINE METABOLITE URINE NEGATIVE (NEGATIVE); METHADONE URINE NEGATIVE (NEGATIVE); OPIATES URINE NEGATIVE (NEGATIVE); PHENCYCLIDINE URINE NEGATIVE (NEGATIVE)
[2020-07-02 23:45] LABS: ACETAMINOPHEN LEVEL < 2.0 UG/ML (10.0-30.0); BLOOD UREA NITROGEN 21 MG/DL (7-18); CALCIUM LEVEL 9.2 MG/DL (8.8-10.2); CARBON DIOXIDE LEVEL 27 MEQ/L (21-32); CHLORIDE LEVEL 108 MEQ/L (98-107); CK-MB VALUE MASS 1.5 NG/ML (<3.6); CPK CREATINE PHOSPHOKINASE 126 U/L (26-192); CREATININE FOR GFR 0.76 MG/DL (0.55-1.30); ETHYL ALCOHOL (ETHANOL) < 0.003 % (0.000-0.010); GLOMERULAR FILTRATION RATE > 60.0 (>39); GLUCOSE, FASTING 92 MG/DL (70-100); MB/CK RELATIVE INDEX 1.19 (< OR =4); POTASSIUM SERUM 3.4 MEQ/L (3.5-5.1); SALICYLATE LEVEL < 1.7 MG/DL (5.0-30.0); SODIUM LEVEL 140 MEQ/L (136-145); TROPONIN I < 0.02 NG/ML (< 0.10)
[2020-07-02] MEDS: D5W/0.45% SODIUM CHLORIDE 1,000 ML IV SCH (23:53)
--- NOTE | 2020-07-02 23:56 | REPVR ---
PROCEDURE INFORMATION: Exam: CT Head Without Contrast Exam date and time: 07/02/2020 10:37 PM Age: 70 years old Clinical indication: Altered mental status/memory loss; Confusion or disorientation; Additional info: AMS TECHNIQUE: Imaging protocol: Computed tomography of the head without contrast. Radiation optimization: All CT scans at this facility use at least one of these dose optimization techniques: automated exposure control; mA and/or kV adjustment per patient size (includes targeted exams where dose is matched to clinical indication); or iterative reconstruction. COMPARISON: CT Head without contrast 05/17/2020 6:14 PM FINDINGS: Brain: There is no CT evidence for an acute large vessel territorial infarct. There are mild non-specific foci of low attenuation in the periventricular white matter, which are likely the sequela of chronic small vessel ischemic injury and are similar in appearance compared to the prior CT head on 05/17/2020. No acute intracranial hemorrhage is seen. No mass, mass effect, midline shift, or herniation is noted. Incidental note is made of a calcification in the right globus pallidus, which is similar in appearance compared to the prior CT head on 05/17/2020. Cerebral ventricles: The ventricles are mildly dilated in proportion to the sulci, which is compatible with mild generalized cerebral volume loss that is similar in appearance compared to the prior 05/17/2020. Bones/joints: The skull is intact. No suspicious osteolytic or osteoblastic lesion. Paranasal sinuses: There is mild opacification of the right ethmoid sinus. No air-fluid levels are seen in the imaged sinuses. The sinuses were not fully imaged. Mastoid air cells: Clear. Vasculature: There are atherosclerotic calcifications of the intracranial portion of the vertebral arteries and internal carotid arteries. Soft tissues: Unremarkable. No soft tissue fluid collection. IMPRESSION: No acute intracranial abnormality. Electronically signed by: Ganga Jay On 07/02/2020 23:56:04 PM
[2020-07-03] MEDS: D5W/0.45% SODIUM CHLORIDE 1,000 ML IV SCH (00:57)
[2020-07-03] MEDS ORDERED: D10W/0.45% SODIUM CHLORIDE 1,000 ML IV SCH (01:10)
[2020-07-03] MEDS ORDERED: MOM 30ML SUSPENSION UDC PO PRN (01:10)
[2020-07-03] MEDS ORDERED: ACETAMINOPHEN TAB 650MG DOSE (2X325MG) PO PRN (01:10)
[2020-07-03] MEDS ORDERED: MAALOX 30 ML SUSP *UDC PO PRN (01:10)
[2020-07-03] MEDS ORDERED: POTASSIUM CHL PWD 20 MEQ PACKET PO ONE (01:10)
[2020-07-03 01:36] LABS: MAGNESIUM LEVEL 2.1 MG/DL (1.8-2.4)
--- NOTE | 2020-07-03 01:36 | HPEPDOC ---
[facility] Medical History & Physical Date of Admission July 03, 2020 Date of Service: July 03, [address] Jamison Quiros Attending Physician: NORA HUNTER MD History and Physical TIME OF SERVICE: 240am CHIEF COMPLAINT: AMS HISTORY OF PRESENT ILLNESS: This 75 yr old F has been admitted 2 times this year for acute symptomatic hypoglycemia; based on the discharge summary after her last admission at the end of April her insulin was discontinued but the patient reports being told to resume the medication when she saw her PCP. Yesterday she reports eating well and shortly after taking her insulin the room started spinning; she has a lapse in her memory after taking the insulin and the next event she can reacall is being in the ER. Apparently her was unable to arouse her and he called her niece who called EMS; her initial serum glucose was 28. The patient denies having URI symptoms, fevers, chills, n/v or any other acute problems prior to the event. REVIEW OF SYSTEMS: 12-point review of systems negative except as listed in HPI PAST MEDICAL/ SURGICAL HISTORY: IDDM Hypertension Hypercholesterolemia Uterine cancer, status post, hysterectomy Obesity Chronic abdominal pain Hysterectomy Resection of abdominal lipoma Arm surgery SOCIAL HISTORY: quit smoking and tobacco abuse. Retired, lives with and niece. FAMILY HISTORY: Father of liver cirrhosis, CAD, [place] / Mother CAD ALLERGIES: Please see below. HOME MEDICATIONS: Please see below. PHYSICAL EXAMINATION: Vital Signs Date Time Temp Pulse Resp B/P (MAP) Pulse Ox O2 Delivery O2 Flow Rate FiO2 07/02/20 21:31 90.8 59 18 168/79 98 Room Air GENERAL APPEARANCE: well nourished and developed / NAD HEENT: EOMI / MMM&P CARDIOVASCULAR: RRR/NMRG LUNGS: CTAB on RA ABDOMEN: obese / soft / post surgical scar covered with dry dressings /skin surrounding dressings is clean and ry MUSCULOSKELETAL: JORDAN INTEGUMENT: she is not flushed / appears slightly pale NEUROLOGICAL: CN 2-12 intact / speech not dysarthric PSYCHIATRIC: A&O / able to understand and follow commands LABORATORY DATA: Immature Granulocyte % (Auto) 0.5, Neutrophils (%) (Auto) 70.5H, Lymphocytes (%) (Auto) 21.3L, Monocytes (%) (Auto) 5.9, Eosinophils (%) (Auto) 1.4, Basophils (%) (Auto) 0.4, Neutrophils # (Auto) 8.1, Lymphocytes # (Auto) 2.4, Monocytes # (Auto) 0.7, Eosinophils # (Auto) 0.2, Basophils # (Auto) 0.0, Nucleated Red Blood Cells % (auto) 0.0, Urine Color YELLOW, Urine Appearance CLEAR, Urine pH 5.0, Urine Specific [place] 1.012, Urine Protein NEGATIVE, Urine Glucose (UA) 1+H, Urine Ketones NEGATIVE, Urine Blood NEGATIVE, Urine Nitrite NEGATIVE, Urine Bilirubin NEGATIVE, Urine Urobilinogen 0.2, Urine Leukocyte Esterase NEGATIVE, Urine WBC (Auto) 1, Urine RBC (Auto) 0, Urine Hyaline Casts (Auto) 0, Urine Bacteria (Auto) NEGATIVE, Urine Squamous Epithelial Cells 0, Urine Mucus (Auto) SMALL, Urine Sperm (Auto) , Estimated Mean Plasma Glucose 174H, Hemoglobin A1c 7.7, Urine Opiates Screen NEGATIVE, Urine Methadone Screen NEGATIVE, Urine Barbiturates Screen NEGATIVE, Urine Phencyclidine Screen NEGATIVE, Urine Amphetamines Screen NEGATIVE, Urine Benzodiazepines Screen NEGATIVE, Urine Cocaine Metabolite Screen NEGATIVE, Urine Cannabinoids Screen NEGATIVE 07/02/20 22:30: POC pH (Misc Panel) 7.375, POC Base Excess (Misc Panel) 0.0, POC Saturated Percent O2 (Misc) 99H, POC pO2 (Misc Panel) 129.0H, POC pCO2 (Misc Panel) 43.7, POC HCO3 (Misc Panel) 25.5, POC Total CO2 (Misc Panel) 27.0 07/02/20 22:36: Bedside Glucose (Misc Panel) 104 07/02/20 22:47: Anion Gap 5L, Glomerular Filtration Rate > 60.0, Calcium Level 9.2, Total Creatine Kinase 126, Creatine Kinase MB 1.5, Creatine Kinase MB Relative Index 1.19, Troponin I < 0.02, Salicylates Level < 1.7L, Acetaminophen Level < 2.0L, Ethyl Alcohol Level < 0.003 07/02/20 23:47: Bedside Glucose (Misc Panel) 81L 07/03/20 00:49: Bedside Glucose (Misc Panel) 66L 07/03/20 01:15: Bedside Glucose (Misc Panel) 90 IMAGING: Chest xray IMPRESSION: No acute chest pathology. In general, a similar appearance was noted [address] head IMPRESSION: No acute intracranial abnormality. MICROBIOLOGY: Respiratory panel neg / blood cx pending.. ASSESSMENT: is a 70 yr old w a hx of diabetes, hypertension, hypercholesterolemia, uterine cancer, status post , hysterectomy, obesity, chronic abdominal pain and recent abdominal lipoma resection who will be admitted for management of recurrent hypoglycemia. PLAN: 1 Recurrent hypoglycemia / IDDM Plan: admit to ICU for FSBS Q1H / switch from D5NS to D10 half NS / consistent carbohydrate diet / hypoglycemia protocol / hold all insulin and anti-glycemic agents for at least 48 H to allow her body to recalibrate & tolerate accuchecks as high as 299 2 Hypothermia resolving Plan: Perri hugger / f/u pancx results 3 Bradycardia EKG showed HR of 56 w/o acute ST changes Plan: telemetry /trend trops 4 Hypokalemia Likely due to insulin Plan: replete K & f/u Mg 5 Post-surgical abdominal wound She recently had a revision of her abdominal surgery after having a lipoma resected done and has a home RN & her niece change the dressings frequently. Plan: will ask RN to change dressings 6 Essential HTN Plan: indapamide and Lisinopril 7 Hypercholesterolemia Plan: Lovastatin 8 HENNY Plan: f/u w PCP for iron supplements & work up 9 Obesity Complicates care DVT px w lovenox Dispo: home after at least 2 midnights stay Home Medications Scheduled Aspirin (Aspirin EC) 81 Mg Tab, 81 MG PO DAILY Calcium Carbonate/Vitamin D3 (Calcium 600 + Vit D 400 Softgl) 1 Each Capsule, 1 CAP PO DAILY Indapamide (Indapamide) 1.25 Mg Tablet, 1.25 MG PO DAILY Insulin Detemir (Levemir) 100 Unit/1 Ml Vial, 10 UNITS SC QHS Insulin Human Lispro (Humalog) 100 Unit/1 Ml Vial, 5 UNITS SC BID TAKES AT DINNER AND BEDTIME Insulin Human NPH (Humulin N) 100 Unit/1 Ml Vial, 10 UNITS SC DAILY Lisinopril (Lisinopril) 10 Mg Tab, 10 MG PO DAILY Magnesium Oxide (Magnesium Oxide) 400 Mg Tablet, 400 MG PO DAILY Metformin HCl (Metformin HCl) 1,000 Mg Tablet, 2,000 MG PO QPM TAKES AT DINNERTIME Pantoprazole Sodium (Pantoprazole Sodium) 40 Mg Tablet.dr, 40 MG PO DAILY Pioglitazone HCl (Pioglitazone HCl) 45 Mg Tablet, 45 MG PO QPM TAKES AT DINNERTIME Scheduled PRN Albuterol Sulfate (Proair Hfa) 8.5 Gm Hfa.aer.ad, 2 PUFF INH Q6H PRN for SHORTNESS OF BREATH Glucagon,Human Recombinant (Glucagon Emergency Kit) 1 Mg Vial, 1 MG IM ASDIRECTED PRN for LOW BLOOD SUGAR Hydrocodone/Acetaminophen (Hydrocodone-Acetamin 5-325 mg) 1 Each Tablet, 1 TAB PO TID PRN for PAIN Allergies Coded Allergies: adhesive tape (Verified Allergy, Unknown, RASH, 08/30/19) NORA HUNTER MD July 03, 2020 01:36
[2020-07-03 05:00] VITALS: BP 146/65
[2020-07-03 05:27] LABS: HEMATOCRIT 37.4 % (36.0-47.0); HEMOGLOBIN 11.3 g/dl (12.0-15.5); MEAN CORPUSCULAR HEMOGLOBIN 27.7 pg (27.0-33.0); MEAN CORPUSCULAR HGB CONC 30.2 g/dl (32.0-36.5); MEAN CORPUSCULAR VOLUME 91.7 fl (80.0-96.0); PLATELET COUNT, AUTOMATED 244 10^3/uL (150-450); RED BLOOD COUNT 4.08 10^6/uL (4.00-5.40)
[2020-07-03] MEDS ORDERED: HYDR-4571 PO (05:49)
[2020-07-03] MEDS ORDERED: PANT40TA29 PO (05:49)
[2020-07-03] MEDS ORDERED: INSUDET SC ×2 (05:49→11:34)
[2020-07-03] MEDS ORDERED: INSUHUMDS SC (05:49)
[2020-07-03] MEDS ORDERED: GLUC1KIT IM (05:49)
[2020-07-03] MEDS ORDERED: PIOG1TAB55 PO (05:49)
[2020-07-03] MEDS ORDERED: METF10004 PO (05:49)
[2020-07-03] MEDS ORDERED: INSUNSD SC (05:49)
[2020-07-03] MEDS ORDERED: INDA125TA PO (05:49)
[2020-07-03 05:56] LABS: BLOOD UREA NITROGEN 18 MG/DL (7-18); CALCIUM LEVEL 8.5 MG/DL (8.8-10.2); CARBON DIOXIDE LEVEL 24 MEQ/L (21-32); CHLORIDE LEVEL 107 MEQ/L (98-107); CREATININE FOR GFR 0.93 MG/DL (0.55-1.30); GLOMERULAR FILTRATION RATE > 60.0 (>39); GLUCOSE, FASTING 322 MG/DL (70-100); POTASSIUM SERUM 4.4 MEQ/L (3.5-5.1); SODIUM LEVEL 135 MEQ/L (136-145)
[2020-07-03] MEDS ORDERED: DEXTROSE 50% 50 ML SYRINGE IV PRN ×2 (06:25→07:50)
[2020-07-03] MEDS ORDERED: ALBUTEROL 90 MCG/ACT 8GM HFA INHALER INH PRN (06:25)
[2020-07-03] MEDS ORDERED: NORCO, ANEXSIA 5/325MG TABLET (HYDROcodone/ACETAMINOPHEN) PO PRN (06:25)
[2020-07-03] MEDS ORDERED: GLUCOSE 4GM CHEW TABLET PO PRN ×2 (06:25→07:50)
[2020-07-03] MEDS ORDERED: GLUCAGON INJ 1MG VIAL SC PRN ×2 (06:25→07:50)
--- NOTE | 2020-07-03 07:48 | ECGEPIP ---
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
[2020-07-03 08:00] VITALS: BP 142/65
[2020-07-03] MEDS: HumaLOG INSULIN (NovoLOG) PER UNIT SC SCH ×2 (08:31→12:03)
[2020-07-03 08:32] VITALS: BP 142/65
[2020-07-03] MEDS ORDERED: MAGNESIUM OXIDE 400MG TAB (MAG-OX) PO SCH (09:00)
[2020-07-03] MEDS ORDERED: ASPIRIN 81MG ENTERIC TABLET PO SCH (09:00)
[2020-07-03] MEDS ORDERED: CALCIUM/VITAMIN D 500 MG TAB PO SCH (09:00)
[2020-07-03] MEDS ORDERED: PANTOPRAZOLE 40MG TAB (PROTONIX) PO SCH (09:00)
[2020-07-03] MEDS ORDERED: ENOXAPARIN 40MG/0.4ML SYRINGE (J1650 PER 10MG) SC SCH (09:00)
[2020-07-03] MEDS ORDERED: INDAPAMIDE 1.25MG TABLET PO SCH (09:00)
--- NOTE | 2020-07-03 15:08 | DS.PDOC ---
Discharge Summary General Date of Admission July 03, 2020 at 01:07 Date of Discharge 07/03/20 Discharge Summary PROCEDURES PERFORMED DURING STAY: [None]. ADMITTING DIAGNOSES: Recurrent hypoglycemia / IDDM Hypothermia resolving Bradycardia Hypokalemia Post-surgical abdominal wound Essential HTN Hypercholesterolemia HENNY Obesity DISCHARGE DIAGNOSES: Recurrent hypoglycemia / IDDM Hypothermia resolving Bradycardia Hypokalemia Post-surgical abdominal wound Essential HTN Hypercholesterolemia HENNY Obesity COMPLICATIONS/CHIEF COMPLAINT: Bradycardia, Hypiglycemia. HISTORY OF PRESENT ILLNESS: This 75 yr old F has been admitted 2 times this year for acute symptomatic hypoglycemia; based on the discharge summary after her last admission at the end of April her insulin was discontinued but the patient reports being told to resume the medication when she saw her PCP. Yesterday she reports eating well and shortly after taking her insulin the room started spinning; she has a lapse in her memory after taking the insulin and the next event she can reacall is being in the ER. Apparently her was unable to arouse her and he called her niece who called EMS; her initial serum glucose was 28. The patient denies having URI symptoms, fevers, chills, n/v or any other acute problems prior to the event. HOSPITAL COURSE: During the hospital stay the following issues addressed 1 Recurrent hypoglycemia / IDDM Patient received treatment according to hypoglycemia protocol 2 Hypothermia resolving Perri hugger 3 Bradycardia EKG did not show any acute ischemic changes. Resolved 4 Hypokalemia Replaced DISCHARGE MEDICATIONS: Please see below. ALLERGIES: Please see below. PHYSICAL EXAMINATION ON DISCHARGE: VITAL SIGNS: Please see below. GENERAL APPEARANCE: well nourished and developed / NAD HEENT: EOMI / MMM&P CARDIOVASCULAR: RRR/NMRG LUNGS: CTAB on RA ABDOMEN: obese / soft / post surgical scar covered with dry dressings /skin surrounding dressings is clean and ry MUSCULOSKELETAL: JORDAN INTEGUMENT: she is not flushed / appears slightly pale NEUROLOGICAL: CN 2-12 intact / speech not dysarthric PSYCHIATRIC: A&O / able to understand and follow commands LABORATORY DATA: Please see below. PROGNOSIS: Fair ACTIVITY: [As tolerated]. DIET: Diabetes DISPOSITION: Home, Self-Care. DISCHARGE INSTRUCTIONS: Stop using Humulin and pioglitazone ITEMS TO FOLLOWUP ON ON OUTPATIENT: Follow-up with PCP DISCHARGE CONDITION: [Stable]. TIME SPENT ON DISCHARGE: 30minutes. Vital Signs/I&Os Vital Signs Date Time Temp Pulse Resp B/P (MAP) Pulse Ox O2 Delivery O2 Flow Rate FiO2 07/03/20 08:32 142/65 07/03/20 08:00 97.3 79 16 99 Room Air I&O- Last 24 Hours up to 6 AM 07/03/20 06:00 Intake Total 550 ml Output Total 1100 ml Balance -550 ml Laboratory Data Labs 24H Laboratory Tests 2 07/02/20 21:34: Bedside Glucose (Misc Panel) 130H 07/02/20 21:48: Immature Granulocyte % (Auto) 0.5, Neutrophils (%) (Auto) 70.5H, Lymphocytes (%) (Auto) 21.3L, Monocytes (%) (Auto) 5.9, Eosinophils (%) (Auto) 1.4, Basophils (%) (Auto) 0.4, Neutrophils # (Auto) 8.1, Lymphocytes # (Auto) 2.4, Monocytes # (Auto) 0.7, Eosinophils # (Auto) 0.2, Basophils # (Auto) 0.0, Nucleated Red Blood Cells % (auto) 0.0, Urine Color YELLOW, Urine Appearance CLEAR, Urine pH 5.0, Urine Specific [place] 1.012, Urine Protein NEGATIVE, Urine Glucose (UA) 1+H, Urine Ketones NEGATIVE, Urine Blood NEGATIVE, Urine Nitrite NEGATIVE, Urine Bilirubin NEGATIVE, Urine Urobilinogen 0.2, Urine Leukocyte Esterase NEGATIVE, Urine WBC (Auto) 1, Urine RBC (Auto) 0, Urine Hyaline Casts (Auto) 0, Urine Bacteria (Auto) NEGATIVE, Urine Squamous Epithelial Cells 0, Urine Mucus (Auto) SMALL, Urine Sperm (Auto) , Estimated Mean Plasma Glucose 174H, Hemoglobin A1c 7.7, Urine Opiates Screen NEGATIVE, Urine Methadone Screen NEGATIVE, Urine Ba rbiturates Screen NEGATIVE, Urine Phencyclidine Screen NEGATIVE, Urine Amphetamines Screen NEGATIVE, Urine Benzodiazepines Screen NEGATIVE, Urine Cocaine Metabolite Screen NEGATIVE, Urine Cannabinoids Screen NEGATIVE 07/02/20 22:30: POC pH (Misc Panel) 7.375, POC Base Excess (Misc Panel) 0.0, POC Saturated Percent O2 (Misc) 99H, POC pO2 (Misc Panel) 129.0H, POC pCO2 (Misc Panel) 43.7, POC HCO3 (Misc Panel) 25.5, POC Total CO2 (Misc Panel) 27.0 07/02/20 22:36: Bedside Glucose (Misc Panel) 104 07/02/20 22:47: Anion Gap 5L, Glomerular Filtration Rate > 60.0, Calcium Level 9.2, Magnesium Level 2.1, Total Creatine Kinase 126, Creatine Kinase MB 1.5, Creatine Kinase MB Relative Index 1.19, Troponin I < 0.02, Salicylates Level < 1.7L, Acetaminophen Level < 2.0L, Ethyl Alcohol Level < 0.003 07/02/20 23:47: Bedside Glucose (Misc Panel) 81L 07/03/20 00:49: Bedside Glucose (Misc Panel) 66L 07/03/20 01:15: Bedside Glucose (Misc Panel) 90 07/03/20 02:42: Bedside Glucose (Misc Panel) 135H 07/03/20 04:12: Bedside Glucose (Misc Panel) 262H 07/03/20 05:05: Nucleated Red Blood Cells % (auto) 0.0, Anion Gap 4L, Glomerular Filtration Rate > 60.0, Calcium Level 8.5L 07/03/20 06:36: Bedside Glucose (Misc Panel) 324H 07/03/20 07:47: Bedside Glucose (Misc Panel) 313H 07/03/20 11:29: Lab Scanned Report Miscellaneous Lab 07/03/20 11:56: Bedside Glucose (Misc Panel) 133H CBC/BMP Laboratory Tests 07/02/20 21:48 07/02/20 22:47 07/03/20 05:05 FSBS Laboratory Tests Test 07/02/20 21:34 07/02/20 22:36 07/02/20 23:47 07/03/20 00:49 Range/Units Bedside Glucose (Misc Panel) 130 104 81 66 83-110 MG/DL Test 07/03/20 01:15 07/03/20 02:42 07/03/20 04:12 07/03/20 06:36 Range/Units Bedside Glucose (Misc Panel) 90 135 262 324 83-110 MG/DL Test 07/03/20 07:47 07/03/20 11:56 Range/Units Bedside Glucose (Misc Panel) 313 133 83-110 MG/DL Microbiology Microbiology 07/03/20 Respiratory Virus Panel (PCR) ([facility]ANNAH) - Final, Complete 07/02/20 Blood Culture, Received Pending 07/02/20 Blood Culture, Received Pending Discharge Medications Scheduled Aspirin (Aspirin EC) 81 Mg Tab, 81 MG PO DAILY, (Reported) Calcium Carbonate/Vitamin D3 (Calcium 600 + Vit D 400 Softgl) 1 Each Capsule, 1 CAP PO DAILY, (Reported) Indapamide (Indapamide) 1.25 Mg Tablet, 1.25 MG PO DAILY, (Reported) Insulin Detemir (Levemir) 100 Unit/1 Ml Vial, 7 UNITS SC BID Insulin Human NPH (Humulin N) 100 Unit/1 Ml Vial, 10 UNITS SC DAILY, (Reported) Lisinopril (Lisinopril) 10 Mg Tab, 10 MG PO DAILY, (Reported) Magnesium Oxide (Magnesium Oxide) 400 Mg Tablet, 400 MG PO DAILY, (Reported) Metformin HCl (Metformin HCl) 1,000 Mg Tablet, 2,000 MG PO QPM, (Reported) TAKES AT DINNERTIME Pantoprazole Sodium (Pantoprazole Sodium) 40 Mg Tablet.dr, 40 MG PO DAILY, (Repo rted) Scheduled PRN Albuterol Sulfate (Proair Hfa) 8.5 Gm Hfa.aer.ad, 2 PUFF INH Q6H PRN for SHORTNESS OF BREATH, (Reported) Glucagon,Human Recombinant (Glucagon Emergency Kit) 1 Mg Vial, 1 MG IM ASDIRECTED PRN for LOW BLOOD SUGAR, (Reported) Hydrocodone/Acetaminophen (Hydrocodone-Acetamin 5-325 mg) 1 Each Tablet, 1 TAB PO TID PRN for PAIN, (Reported) Allergies Coded Allergies: adhesive tape (Verified Allergy, Unknown, RASH, 08/30/19) TAMIR CRUZ DO July 03, 2020 15:08
[2020-07-03] MEDS ORDERED: HumaLOG INSULIN (NovoLOG) PER UNIT SC SCH (21:00)
== END 2020-07-03 14:45 | disposition home health service (06) | DRG 639 ==
LOC: M ED 21:27 → M ED INP 07-03 01:07 → ENRESERV 07-03 03:29 → M ICU 07-03 04:45
PROVIDERS: ADMIT Internal Medicine; ATTEND Internal Medicine
DX: E11.649 Type 2 diabetes mellitus with hypoglycemia without coma (principal); R68.0 Hypothermia, not associated with low environmental temperature; E87.6 Hypokalemia; R00.1 Bradycardia, unspecified; I10 Essential (primary) hypertension; E66.9 Obesity, unspecified; D50.9 Iron deficiency anemia, unspecified; E78.00 Pure hypercholesterolemia, unspecified; Z79.82 Long term (current) use of aspirin; Z79.899 Other long term (current) drug therapy; Z79.4 Long term (current) use of insulin; Z85.42 Personal history of malignant neoplasm of other parts of uterus

== ENCOUNTER 2020-07-05 10:45 | Emergency (ER) | payer MEDICARE, OTHER ==
[~2020-07-05] VITALS: Ht 149.9 cm; Wt 80.9 kg
[~2020-07-05 10:45] MED LIST changes: +GLUC1KIT IM; +HYDR-4571 PO; +INSUNSD SC
[2020-07-05] MEDS ORDERED: LOVA40TA (11:51)
--- NOTE | 2020-07-05 11:57 | REP ---
INDICATION: Altered Mental Status. COMPARISON: 07/02/2020. TECHNIQUE: Single portable AP view of the chest was performed. FINDINGS: There is no acute infiltrate or pulmonary edema. There is again a mildly prominent cardiac silhouette. There is mild calcification of the thoracic aorta. The mediastinal silhouette is unchanged. There has been prior resection of distal end right clavicle. IMPRESSION: No acute pulmonary disease.Stable mild cardiomegaly. <Electronically signed by Antione Alcocer > 07/05/20 [id number]
--- NOTE | 2020-07-05 12:04 | REPVR ---
PROCEDURE INFORMATION: Exam: CT Head Without Contrast Exam date and time: 07/05/2020 11:38 AM Age: 70 years old Clinical indication: Altered mental status/memory loss; Confusion or disorientation TECHNIQUE: Imaging protocol: Computed tomography of the head without contrast. Radiation optimization: All CT scans at this facility use at least one of these dose optimization techniques: automated exposure control; mA and/or kV adjustment per patient size (includes targeted exams where dose is matched to clinical indication); or iterative reconstruction. COMPARISON: CT Head without contrast 07/02/2020 11:22 PM FINDINGS: Brain: There is no acute intracranial hemorrhage, cerebral edema, or midline shift. Age-related cerebral and cerebellar volume loss is present. Cerebral ventricles: Mild ex vacuo dilation of the lateral ventricles is present. Bones/joints: No acute fracture. Paranasal sinuses: Partial opacification of the right ethmoid air cells is noted. Mastoid air cells: Visualized mastoid air cells are well aerated. Orbital cavity: Unremarkable as visualized. Soft tissues: Unremarkable. IMPRESSION: No acute intracranial abnormality. Electronically signed by: Shahid Garcia On 07/05/2020 12:04:41 PM
[2020-07-05 13:00] LABS: BASO % 0.7 % (0.0-1.0); EOS # 0.3 10^3/uL (0.0-0.5); EOS % 5.5 % (0.0-3.0); HEMATOCRIT 41.6 % (36.0-47.0); HEMOGLOBIN 12.5 g/dl (12.0-15.5); LYMPH # 2.6 10^3/uL (1.5-5.0); MEAN CORPUSCULAR HEMOGLOBIN 27.4 pg (27.0-33.0); MONO # 0.4 10^3/uL (0.0-0.8); MONO % 6.5 % (2.0-8.0); NEUTROPHILS # 2.6 10^3/uL (1.5-8.5); PLATELET COUNT, AUTOMATED 272 10^3/uL (150-450); RED BLOOD COUNT 4.57 10^6/uL (4.00-5.40); VENOUS HCO3 29.1 MEQ/L (23.0-27.0); VENOUS O2 SATURATION 69.2 % (60.0-80.0); VENOUS PARTIAL PRESSURE CO2 56.7 mmHg (38.0-50.0); VENOUS PARTIAL PRESSURE O2 39.1 mmHg (30.0-50.0); VENOUS PH 7.328 UNITS (7.330-7.430); VENOUS STANDARD HCO3 25.6 MEQ/L; VENOUS TOTAL CO2 30.8 MEQ/L (24.0-28.0)
[2020-07-05 13:40] LABS: ALT/SGPT 21 U/L (12-78); BILIRUBIN,DIRECT < 0.1 MG/DL (0.0-0.2); BILIRUBIN,TOTAL 0.4 MG/DL (0.2-1.0); BLOOD UREA NITROGEN 21 MG/DL (7-18); CALCIUM LEVEL 9.7 MG/DL (8.8-10.2); CARBON DIOXIDE LEVEL 29 MEQ/L (21-32); CHLORIDE LEVEL 106 MEQ/L (98-107); CK-MB VALUE MASS 1.6 NG/ML (<3.6); CPK CREATINE PHOSPHOKINASE 90 U/L (26-192); CREATININE FOR GFR 0.89 MG/DL (0.55-1.30); GLOMERULAR FILTRATION RATE > 60.0 (>39); GLUCOSE, FASTING 113 MG/DL (70-100); MB/CK RELATIVE INDEX 1.78 (< OR =4); POTASSIUM SERUM 4.4 MEQ/L (3.5-5.1); SODIUM LEVEL 139 MEQ/L (136-145); TOTAL PROTEIN 7.3 GM/DL (6.4-8.2); TROPONIN I < 0.02 NG/ML (< 0.10)
[2020-07-05 14:15] LABS: AMPHETAMINES LEVEL URINE NEGATIVE (NEGATIVE); BARBITURATES URINE NEGATIVE (NEGATIVE); BENZODIAZEPINES URINE NEGATIVE (NEGATIVE); CANNABINOIDS URINE NEGATIVE (NEGATIVE); COCAINE METABOLITE URINE NEGATIVE (NEGATIVE); METHADONE URINE NEGATIVE (NEGATIVE); OPIATES URINE NEGATIVE (NEGATIVE); PHENCYCLIDINE URINE NEGATIVE (NEGATIVE)
[2020-07-05 15:29] VITALS: O2SAT 96
[2020-07-05] MEDS ORDERED: NS 500 ML IV ONE (15:45)
[2020-07-05 17:42] VITALS: BP 166/72
--- NOTE | 2020-07-06 13:41 | ECGEPIP ---
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
== END 2020-07-05 17:44 | disposition home or self-care (01) ==
LOC: M ED 10:45
DX: R55 Syncope and collapse (principal); R00.1 Bradycardia, unspecified; E11.9 Type 2 diabetes mellitus without complications; I10 Essential (primary) hypertension; E66.9 Obesity, unspecified; F41.9 Anxiety disorder, unspecified; Z85.42 Personal history of malignant neoplasm of other parts of uterus; Z87.891 Personal history of nicotine dependence; Z79.82 Long term (current) use of aspirin; Z79.4 Long term (current) use of insulin; Z79.899 Other long term (current) drug therapy; Z91.89 Other specified personal risk factors, not elsewhere classified

== ENCOUNTER 2020-07-13 14:57 | Emergency (ER) | payer MEDICARE, OTHER ==
[~2020-07-13] VITALS: Ht 149.9 cm; Wt 83.2 kg
[~2020-07-13 14:57] MED LIST changes: +LOVA40TA
[2020-07-13] MEDS ORDERED: ACTO30TA15 PO (15:24)
[2020-07-13] MEDS ORDERED: POTA10CA32 (15:24)
[2020-07-13] MEDS ORDERED: NS 1,000 ML IV ONE (15:40)
[2020-07-13 18:45] VITALS: BP 132/63
== END 2020-07-13 18:42 | disposition home or self-care (01) ==
LOC: M ED 14:57
DX: E11.65 Type 2 diabetes mellitus with hyperglycemia (principal); I10 Essential (primary) hypertension; E78.5 Hyperlipidemia, unspecified; Z79.82 Long term (current) use of aspirin; Z79.4 Long term (current) use of insulin; Z79.899 Other long term (current) drug therapy; Z91.89 Other specified personal risk factors, not elsewhere classified

== ENCOUNTER 2020-09-17 17:28 | Emergency (ER) | payer MEDICARE, OTHER ==
[~2020-09-17] VITALS: Ht 149.9 cm; Wt 82.6 kg
[~2020-09-17 17:28] MED LIST changes: +ACTO30TA15 PO; +OMEP40CA4 PO; -OMEP40CA97 PO; +POTA10CA32
[2020-09-17] MEDS ORDERED: TRUL0.5I SQ (17:50)
[2020-09-17] MEDS ORDERED: JARD1TAB PO (17:50)
[2020-09-17 20:11] LABS: BASO % 0.4 % (0.0-1.0); EOS # 0.2 10^3/uL (0.0-0.5); EOS % 2.9 % (0.0-3.0); HEMATOCRIT 42.4 % (36.0-47.0); HEMOGLOBIN 12.6 g/dl (12.0-15.5); LYMPH # 2.2 10^3/uL (1.5-5.0); LYMPH % 30.2 % (24.0-44.0); MEAN CORPUSCULAR HEMOGLOBIN 26.2 pg (27.0-33.0); MEAN CORPUSCULAR HGB CONC 29.7 g/dl (32.0-36.5); MEAN CORPUSCULAR VOLUME 88.1 fl (80.0-96.0); MONO # 0.5 10^3/uL (0.0-0.8); MONO % 7.2 % (2.0-8.0); NEUTROPHILS # 4.3 10^3/uL (1.5-8.5); PLATELET COUNT, AUTOMATED 335 10^3/uL (150-450); RED BLOOD COUNT 4.81 10^6/uL (4.00-5.40); WHITE BLOOD COUNT 7.2 10^3/uL (4.0-10.0)
[2020-09-17] MEDS ORDERED: ISOVUE-370 76% 100ML VIAL As Ordered ONE (20:27)
[2020-09-17 20:48] LABS: ALBUMIN 3.6 GM/DL (3.2-5.2); ALT/SGPT 24 U/L (12-78); BILIRUBIN,DIRECT < 0.1 MG/DL (0.0-0.2); BILIRUBIN,TOTAL 0.3 MG/DL (0.2-1.0); LIPASE 260 U/L (73-393); TOTAL PROTEIN 6.9 GM/DL (6.4-8.2)
--- NOTE | 2020-09-17 22:01 | REPVR ---
PROCEDURE INFORMATION: Exam: CT Abdomen And Pelvis With Contrast Exam date and time: 09/17/2020 8:31 PM Age: 70 years old Clinical indication: Other: Left sided abdominal pain; R/O hernia TECHNIQUE: Imaging protocol: Computed tomography of the abdomen and pelvis with contrast. Radiation optimization: All CT scans at this facility use at least one of these dose optimization techniques: automated exposure control; mA and/or kV adjustment per patient size (includes targeted exams where dose is matched to clinical indication); or iterative reconstruction. Contrast material: ISOVUE 370; Contrast volume: 100 ml; Contrast route: INTRAVENOUS (IV); COMPARISON: CT ABD/PEL W/IV CONTRAST ONLY 06/18/2020 8:02 PM FINDINGS: Liver: Unremarkable. No mass. Gallbladder and bile ducts: Normal. No calcified stones. No ductal dilation. Pancreas: Normal. No ductal dilation. Spleen: Normal. No splenomegaly. Adrenal glands: Normal. No mass. Kidneys and ureters: Unremarkable. No calculi or hydronephrosis. Stomach and bowel: Moderate amount of fecal material in the colon. The small bowel is unremarkable. No bowel obstruction or inflammatory changes. Appendix: No evidence of appendicitis. Intraperitoneal space: No free air. No significant fluid collection. Vasculature: Unremarkable. No abdominal aortic aneurysm. Lymph nodes: Unremarkable. No enlarged lymph nodes. Urinary bladder: Unremarkable as visualized. Reproductive: There has been prior hysterectomy. Bones/joints: There are advanced degenerative changes in the spine and pelvis. Soft tissues: Mild subcutaneous edema in the left anterior abdominal wall, similar to the prior exam. Periumbilical soft tissue stranding has improved. No hernia or abscess. IMPRESSION: 1. Constipation. 2. No acute findings. Electronically signed by: Jay Menendez On 09/17/2020 22:01:15 PM
[2020-09-17] MEDS ORDERED: MIRA3350 PO (22:20)
[2020-09-17 23:00] VITALS: BP 165/81
== END 2020-09-17 23:10 | disposition home or self-care (01) ==
LOC: M ED 17:28
DX: K59.00 Constipation, unspecified (principal); E11.9 Type 2 diabetes mellitus without complications; I10 Essential (primary) hypertension; K21.9 Gastro-esophageal reflux disease without esophagitis; E78.5 Hyperlipidemia, unspecified; Z87.891 Personal history of nicotine dependence; Z79.4 Long term (current) use of insulin; Z91.89 Other specified personal risk factors, not elsewhere classified
CPT/HCPCS: 74177; 80047; 80076; 81001; 83690; 85025; 93041; 99285; Q9967

== ENCOUNTER → 2020-09-18 | Outpatient (CLI) | payer MEDICARE, OTHER ==
[~2020-09-18] MED LIST changes: +JARD1TAB PO; +MIRA3350 PO; +TRUL0.5I SQ
--- NOTE | 2020-09-18 14:29 | REP ---
INDICATION: ABDOMINAL PAIN. COMPARISON: Comparison chest x-ray July 05, 2020.. TECHNIQUE: Four views. FINDINGS: Upright chest radiograph shows no evidence of free air or infiltrate. Heart size is borderline unchanged. Supine and erect views of the abdomen demonstrate a large amount of formed stool throughout the colon including transverse colon hepatic flexure and left colon loops. Psoas margins are symmetric. No mass, or organomegaly, or pathologic calcification is seen. There is vascular calcification in a normal caliber aorta. No air-fluid level is seen. IMPRESSION: Moderate stool. Otherwise negative acute abdominal series.. <Electronically signed by Juan David Griffin > 09/18/20 [id number]
== END ==
LOC: M WUC 11:33
PROVIDERS: ATTEND Internal Medicine
DX: R10.9 Unspecified abdominal pain (principal); R19.5 Other fecal abnormalities

== ENCOUNTER 2020-10-03 10:45 | Observation (INO) | payer MEDICARE, OTHER ==
[~2020-10-03] VITALS: Ht 152.4 cm; Wt 81.5 kg
[~2020-10-03 10:45] MED LIST changes: +DOK1CAP4; -DOK1CAP7; -KLOR10TA76 PO; +POTA-136 PO; +TRUL0.5I SC; -TRUL0.5I SQ
[2020-10-03 11:56] LABS: VENOUS BASE EXCESS -0.2 (-2.0-2.0); VENOUS HCO3 25.3 MEQ/L (23.0-27.0); VENOUS O2 SATURATION 77.9 % (60.0-80.0); VENOUS PARTIAL PRESSURE CO2 44.2 mmHg (38.0-50.0); VENOUS PARTIAL PRESSURE O2 41.4 mmHg (30.0-50.0); VENOUS PH 7.375 UNITS (7.330-7.430); VENOUS STANDARD HCO3 23.9 MEQ/L; VENOUS TOTAL CO2 26.6 MEQ/L (24.0-28.0)
[2020-10-03 12:02] LABS: BASO # 0.1 10^3/uL (0.0-0.2); BASO % 0.7 % (0.0-1.0); EOS # 0.1 10^3/uL (0.0-0.5); EOS % 1.6 % (0.0-3.0); HEMATOCRIT 43.5 % (36.0-47.0); LYMPH # 2.3 10^3/uL (1.5-5.0); LYMPH % 30.2 % (24.0-44.0); MEAN CORPUSCULAR HEMOGLOBIN 25.9 pg (27.0-33.0); MEAN CORPUSCULAR HGB CONC 29.9 g/dl (32.0-36.5); MEAN CORPUSCULAR VOLUME 86.7 fl (80.0-96.0); MONO # 0.5 10^3/uL (0.0-0.8); MONO % 6.3 % (2.0-8.0); NEUTROPHILS # 4.6 10^3/uL (1.5-8.5); NEUTROPHILS % 60.9 % (36.0-66.0); PLATELET COUNT, AUTOMATED 279 10^3/uL (150-450); RED BLOOD COUNT 5.02 10^6/uL (4.00-5.40); WHITE BLOOD COUNT 7.5 10^3/uL (4.0-10.0)
[2020-10-03] MEDS ORDERED: MECLIZINE 25 MG TABLET PO ONE (12:30)
[2020-10-03 12:38] LABS: BLOOD UREA NITROGEN 16 MG/DL (7-18); CALCIUM LEVEL 8.9 MG/DL (8.8-10.2); CARBON DIOXIDE LEVEL 30 MEQ/L (21-32); CHLORIDE LEVEL 111 MEQ/L (98-107); CK-MB VALUE MASS 1.5 NG/ML (<3.6); CPK CREATINE PHOSPHOKINASE 77 U/L (26-192); CREATININE FOR GFR 0.59 MG/DL (0.55-1.30); GLOMERULAR FILTRATION RATE > 60.0 (>39); GLUCOSE, FASTING 58 MG/DL (70-100); MAGNESIUM LEVEL 2.2 MG/DL (1.8-2.4); MB/CK RELATIVE INDEX 1.95 (< OR =4); SODIUM LEVEL 143 MEQ/L (136-145); TROPONIN I < 0.02 NG/ML (< 0.10)
[2020-10-03] MEDS ORDERED: hydrALAZINE 20MG/ML 1ML VIAL (J0360 PER 20MG) IV STA (12:44)
[2020-10-03] MEDS ORDERED: ONDANSETRON 4MG/2ML VIAL IV ONE (12:45)
[2020-10-03] MEDS ORDERED: INSUDET SC (15:29)
[2020-10-03] MEDS ORDERED: HOME MED LIST COMPLETE! XX SCH (15:30)
[2020-10-03] MEDS ORDERED: GLUCAGON INJ 1MG VIAL SC PRN (16:35)
[2020-10-03] MEDS ORDERED: hydrALAZINE 20MG/ML 1ML VIAL (J0360 PER 20MG) IV PRN (16:35)
[2020-10-03] MEDS ORDERED: DEXTROSE 50% 50 ML SYRINGE IV PRN (16:35)
[2020-10-03] MEDS ORDERED: GLUCOSE 4GM CHEW TABLET PO PRN (16:35)
[2020-10-03] MEDS ORDERED: ALBUTEROL 90 MCG/ACT 8GM HFA INHALER INH PRN (16:45)
--- NOTE | 2020-10-03 17:12 | HPEPDOC ---
General Date of Admission Oct 03, 2020 Date of Service: Oct 03, 2020 Chief Complaint The patient is a 70-year-old female admitted with a reason for visit of Dizziness. Source: Patient History of Present Illness Mrs. Killian is a 70 year old female with IDDM who presents with lightheadedness with vertigo and found to be hypoglycemic. Patient tells me that about 3 month ago, her PCP had taken her off of most of her medications except for diabetic medications. She denies any difficulty taking her medications and denied doubling up on medications. She denies poor appetite or eating less. Denies nausea or diarrhea. About 2 to 3 weeks ago, she was having intermittent episodes of dizziness and weakness. Since then they have become more frequent. Today was the worse of her symptoms. She felt that the room was spinning around and that she was going to pass out. She was having visual hallucinations of family members that have . Ambulance brought her to the ED where they found her to be hypoglycemic, the lowest was 31. She was given food to eat and her blood glucose rebounded to 77. Patient feels better now and her symptoms of dizziness and weakness have improved. She does not know why her blood glucose was so low. She has a good appetite and feels like she could eat now. She denies mistaking her medications. The last time her glucose was low was about 3 months ago, and she was hospitalized at that time. Otherwise, patient has hypertensive urgency with SBP in the 200s. Patient will be admitted for hypertensive urgency and hypoglycemia. Home Medications Scheduled Dulaglutide (Trulicity) 1.5 Mg/0.5 Ml Pen.injctr, 1.5 MG SC QWEEK, (Reported) THURSDAYS Empagliflozin (Jardiance) 10 Mg Tablet, 10 MG PO DAILY, (Reported) Insulin Detemir (Levemir) 100 Unit/1 Ml Vial, 7 UNITS SC BID, (Reported) Allergies Coded Allergies: adhesive tape (Verified Allergy, Intermediate, RASH, 10/03/20) Past Medical History Medical History 1. IDDM 2. Hypertension 3. Hyperlipidemia 4. History of uterine cancer s/p hysterectomy 5. Obesity 6. Asthma Surgical History 1. Hysterectomy 2. Resection of abdominal lipoma 3. Arm surgery Family History Father: History of alcoholic liver cirrhosis, CAD Mother: History of CAD Social History * Smoker: former Smoker Alcohol: Denies (Quit drinking 10 years ago) Drugs: denies A-FIB/CHADSVASC A-FIB History Current/History of A-Fib/PAF?: No Review of Systems Constitutional: Denies: Chills, Fever Eyes: Reports: Other (double vision when hypoglycemic) ENT: Reports: Head Aches; Denies: Sore Throat Skin: Denies: Rash Pulmonary: Reports: Cough (dry cough); Denies: Dyspnea Cardiovascular: Reports: Lt Headedness; Denies: Chest Pain Gastrointestinal: Denies: Nausea, Vomiting, Abdominal Pain, Diarrhea Genitourinary: Denies: Dysuria Hematologic: Denies: Bruising Neurological: Reports: Other Symptoms (Reports both lightheadedness and v ertigo) Psych: Reports: Depression; Denies: Anxiety Physical Examination General Exam: Positive: Alert, Cooperative Eye Exam: Positive: EOMI; Negative: Sclera icteric ENT Exam: Positive: Atraumatic Neck Exam: Positive: Supple Chest Exam: Positive: Clear to auscultation; Negative: Rales, Rhonchi Heart Exam: Positive: Rate Normal, Regular Rhythm Abdomen Exam: Positive: Normal bowel sounds, Other (Ventral mass which she tells me is a lipoma) Extremity Exam: Negative: Edema Neuro Exam: Positive: Normal Speech Psych Exam: Positive: Mental status NL, Mood NL Vital Signs Vital Signs Date Time Temp Pulse Resp B/P (MAP) Pulse Ox O2 Delivery O2 Flow Rate FiO2 10/03/20 15:30 80 16 170/76 (107) 98 Room Air 10/03/20 11:06 97.5 Laboratory Data Labs 24H Laboratory Tests 2 10/03/20 10:59: Immature Granulocyte % (Auto) 0.3, Neutrophils (%) (Auto) 60.9, Lymphocytes (%) (Auto) 30.2, Monocytes (%) (Auto) 6.3, Eosinophils (%) (Auto) 1.6, Basophils (%) (Auto) 0.7, Neutrophils # (Auto) 4.6, Lymphocytes # (Auto) 2.3, Monocytes # (A uto) 0.5, Eosinophils # (Auto) 0.1, Basophils # (Auto) 0.1, Nucleated Red Blood Cells % (auto) 0.0, Anion Gap 2L, Glomerular Filtration Rate > 60.0, Calcium Level 8.9, Magnesium Level 2.2, Total Creatine Kinase 77, Creatine Kinase MB 1.5, Creatine Kinase MB Relative Index 1.95, Troponin I < 0.02, Thyroid Stimulating Hormone (TSH) 2.440 10/03/20 11:15: Blood Gas Bicarbonate Standard 23.9, Venous Blood pH 7.375, Venous Blood Partial Pressure CO2 44.2, Venous Blood Partial Pressure O2 41.4, Venous Blood Total Carbon Dioxide 26.6, Venous Blood HCO3 25.3, Venous Blood Oxygen Saturation 77.9, Venous Blood Base Excess -0.2 10/03/20 14:21: Bedside Glucose (Misc Panel) 31*L 10/03/20 14:57: Bedside Glucose (Misc Panel) 77L 10/03/20 16:14: Bedside Glucose (Misc Panel) 217H CBC/BMP Laboratory Tests 10/03/20 10:59 Assessment/Plan Mrs. Killian is a 70 year old female with IDDM who presents with lightheadedness with vertigo and found to be hypoglycemic. Unclear etiology. Patient denies nausea or poor appetite. She denies any mistakes with her medications. Blood glucose responded quickly to food. The last time she had an episode of hypoglycemia was about 3 months ago. Will decrease her Levemir from 7units BID to 5units BID. Otherwise, SBP elevated from 170s up to 240s. Patient will be started on blood pressure medication. Plan / VTE VTE Prophylaxis Ordered?: Yes Plan Plan 1. Symptomatic hypoglycemic in the setting of IDDM -Unclear etiology. Patient reports good appetite and denies problems with insulin medication -Blood glucose rapidly responding to oral intake -Monitor while inpatient -Decrease Levemir from 7 units to 5 units -Sliding scale insulin and carbohydrate consistent diet 2. Hypertensive urgency -Start patient on lisinopril 5mg qD -PRN IV hydralazine -Monitor blood pressure 3. Vertigo and lightheadedness -Most likely from hypoglycemia -Will have PT work with patient 4. DVT ppx -Lovenox Disposition: Pending improvement in blood pressure and stability of blood glucose YESSENIA WAY DO Oct 03, 2020 17:12
[2020-10-03 17:32] LABS: RSV AMPLIFICATION NEGATIVE (NEGATIVE)
[2020-10-03] MEDS: HumaLOG INSULIN (NovoLOG) PER UNIT SC SCH (18:15)
[2020-10-03] MEDS: lisinopriL 5 MG TAB PO SCH (18:19)
--- NOTE | 2020-10-03 20:59 | ECGEPIP ---
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
[2020-10-03] MEDS ORDERED: HumaLOG INSULIN (NovoLOG) PER UNIT SC SCH (21:00)
[2020-10-03] MEDS: LEVEMIR (INSULIN DETEMIR) 1 UNITS/0.01ML SC SCH (21:11)
[2020-10-03 22:18] VITALS: BP 182/80
[2020-10-03] MEDS ORDERED: hydrALAZINE 20MG/ML 1ML VIAL (J0360 PER 20MG) IV ONE (22:35)
[2020-10-04] VITALS: BP 138/82
[2020-10-04 04:00] VITALS: BP 122/69
[2020-10-04 04:55] LABS: HEMATOCRIT 40.4 % (36.0-47.0); HEMOGLOBIN 12.3 g/dl (12.0-15.5); MEAN CORPUSCULAR HEMOGLOBIN 26.4 pg (27.0-33.0); MEAN CORPUSCULAR HGB CONC 30.4 g/dl (32.0-36.5); MEAN CORPUSCULAR VOLUME 86.7 fl (80.0-96.0); PLATELET COUNT, AUTOMATED 280 10^3/uL (150-450); RED BLOOD COUNT 4.66 10^6/uL (4.00-5.40); WHITE BLOOD COUNT 6.8 10^3/uL (4.0-10.0)
[2020-10-04 05:13] LABS: BLOOD UREA NITROGEN 17 MG/DL (7-18); CALCIUM LEVEL 8.8 MG/DL (8.8-10.2); CARBON DIOXIDE LEVEL 30 MEQ/L (21-32); CHLORIDE LEVEL 110 MEQ/L (98-107); CREATININE FOR GFR 0.84 MG/DL (0.55-1.30); GLOMERULAR FILTRATION RATE > 60.0 (>39); GLUCOSE, FASTING 150 MG/DL (70-100); MAGNESIUM LEVEL 2.2 MG/DL (1.8-2.4); POTASSIUM SERUM 4.4 MEQ/L (3.5-5.1); SODIUM LEVEL 144 MEQ/L (136-145)
[2020-10-04 08:00] VITALS: BP 152/64
[2020-10-04 08:54] VITALS: BP 152/64
[2020-10-04] MEDS: LEVEMIR (INSULIN DETEMIR) 1 UNITS/0.01ML SC SCH (08:54)
[2020-10-04] MEDS: HumaLOG INSULIN (NovoLOG) PER UNIT SC SCH ×2 (08:54→12:17)
[2020-10-04] MEDS: lisinopriL 5 MG TAB PO SCH (08:54)
[2020-10-04] MEDS ORDERED: ENOXAPARIN 40MG/0.4ML SYRINGE (J1650 PER 10MG) SC SCH (09:00)
[2020-10-04] MEDS ORDERED: LISI-898 PO (11:35)
[2020-10-04] MEDS ORDERED: INSUDET SC (11:35)
[2020-10-04 12:00] VITALS: BP 168/82
[2020-10-04] MEDS ORDERED: DOCUSATE SODIUM 100MG CAPSULE PO ONE (12:35)
--- NOTE | 2020-10-04 15:59 | DS.PDOC ---
Discharge Summary General Date of Admission Oct 03, 2020 at 10:46 Date of Discharge Oct 04, 2020 Discharge Summary PROCEDURES PERFORMED DURING STAY: None ADMITTING DIAGNOSES: 1. Symptomatic hypoglycemic in the setting of IDDM 2. Hypertensive urgency 3. Vertigo and lightheadedness DISCHARGE DIAGNOSES: 1. Symptomatic hypoglycemic in the setting of IDDM 2. Hypertensive urgency 3. Vertigo and lightheadedness COMPLICATIONS/CHIEF COMPLAINT: Hyperglycemia-Diabetes(2)Mellitus,Hypertentive Urg. HISTORY OF PRESENT ILLNESS: Mrs. Killian is a 70 year old female with IDDM who presents with lightheadedness with vertigo and found to be hypoglycemic. Patient tells me that about 3 month ago, her PCP had taken her off of most of her medications except for diabetic medications. She denies any difficulty taking he r medications and denied doubling up on medications. She denies poor appetite or eating less. Denies nausea or diarrhea. About 2 to 3 weeks ago, she was having intermittent episodes of dizziness and weakness. Since then they have become more frequent. Today was the worse of her symptoms. She felt that the room was spinning around and that she was going to pass out. She was having visual hallucinations of family members that have . Ambulance brought her to the ED where they found her to be hypoglycemic, the lowest was 31. She was given food to eat and her blood glucose rebounded to 77. Patient feels better now and her symptoms of dizziness and weakness have improved. She does not know why her blood glucose was so low. She has a good appetite and feels like she could eat now. She denies mistaking her medications. The last time her glucose was low was about 3 months ago, and she was h ospitalized at that time. Otherwise, patient has hypertensive urgency with SBP in the 200s. Patient will be admitted for hypertensive urgency and hypoglycemia. HOSPITAL COURSE: Patient's Levemir was decreased from 7units BID to 5units BID and lisinopril 5mg was added for hypertension. Patient did well overnight. This morning, she denied any chest pain, dyspnea, abdominal pain, lightheadedness, or dizziness. She had a mild headache, but declined medication. Blood glucose was acceptable and no hypoglycemic events. Blood pressure was better controlled. She cleared physical therapy and was discharged home. DISCHARGE MEDICATIONS: Please see below. ALLERGIES: Please see below. PHYSICAL EXAMINATION ON DISCHARGE: VITAL SIGNS: Please see below. GENERAL: Comfortable, in no apparent distress. HEENT: EOMI, sclera clear. NECK: Supple, no JVD. RESPIRATORY: Lungs clear to auscultation bilaterally, no rales, wheeze or rhonchi. CARDIOVASCULAR: Regular rate and rhythm. ABDOMEN: Normal bowel sounds. Vental mass which she tells me is a lipoma MUSCLE SKELETAL: No pitting edema bilaterally NEUROLOGICAL: CN 3-12 grossly intact, no focal deficits noted. PSYCHOLOGICAL: Normal mood and affect LABORATORY DATA: Please see below. IMAGING: None PROGNOSIS: Good ACTIVITY: As tolerated. DIET: Carbohydrate consistent diet DISCHARGE PLAN: Home with home health services DISPOSITION: Home with home health services. DISCHARGE INSTRUCTIONS: 1. Follow up with PCP in 1 week ITEMS TO FOLLOWUP ON ON OUTPATIENT: 1. Monitor blood pressure 2. Monitor blood glucose DISCHARGE CONDITION: Stable. Total time spent on discharge planning, discharge summary, and medication reconciliation: 20 minutes Vital Signs/I&Os Vital Signs Date Time Temp Pulse Resp B/P (MAP) Pulse Ox O2 Delivery O2 Flow Rate FiO2 10/04/20 12:00 98.7 81 18 168/82 (110) 95 Room Air I&O- Last 24 Hours up to 6 AM 10/04/20 06:00 Intake Total 200 ml Output Total 1800 ml Balance -1600 ml Laboratory Data Labs 24H Laboratory Tests 2 10/03/20 14:21: Bedside Glucose (Misc Panel) 31*L 10/03/20 14:57: Bedside Glucose (Misc Panel) 77L 10/03/20 16:14: Bedside Glucose (Misc Panel) 217H 10/03/20 16:34: Coronavirus (COVID-19)(PCR) NEGATIVE, Influenza Type A (RT-PCR) NEGATIVE, Influenza Type B (RT-PCR) NEGATIVE, Respiratory Syncytial Virus (PCR) NEGATIVE 10/03/20 18:09: Bedside Glucose (Misc Panel) 170H 10/03/20 21:04: Bedside Glucose (Misc Panel) 160H 10/04/20 04:34: Nucleated Red Blood Cells % (auto) 0.0, Anion Gap 4L, Glomerular Filtration Rate > 60.0, Calcium Level 8.8, Magnesium Level 2.2 10/04/20 11:35: Bedside Glucose (Misc Panel) 195H CBC/BMP Laboratory Tests 10/04/20 04:34 FSBS Laboratory Tests Test 10/03/20 14:21 10/03/20 14:57 10/03/20 16:14 10/03/20 18:09 Range/Units Bedside Glucose (Misc Panel) 31 77 217 170 83-110 MG/DL Test 10/03/20 21:04 10/04/20 11:35 Range/Units Bedside Glucose (Misc Panel) 160 195 83-110 MG/DL Discharge Medications Scheduled Dulaglutide (Trulicity) 1.5 Mg/0.5 Ml Pen.injctr, 1.5 MG SC QWEEK, (Reported) THURSDAYS Empagliflozin (Jardiance) 10 Mg Tablet, 10 MG PO DAILY, (Reported) Insulin Detemir (Levemir) 100 Unit/1 Ml Vial, 5 UNITS SC BID Lisinopril (Lisinopril) 5 Mg Tablet, 5 MG PO DAILY Allergies Coded Allergies: adhesive tape (Verified Allergy, Intermediate, RASH, 10/03/20) YESSENIA WAY DO Oct 04, 2020 13:06
[2020-10-05] MEDS ORDERED: LISI-898 PO (23:01)
[2020-10-05] MEDS ORDERED: INSUDET SC (23:01)
== END 2020-10-04 13:28 | disposition home health service (06) ==
LOC: EDBD 10:45 → M ED 10:45 → M ED INP 10:46 → M PCU 22:18
PROVIDERS: ADMIT Internal Medicine; ATTEND Internal Medicine
DX: E11.649 Type 2 diabetes mellitus with hypoglycemia without coma (principal); I16.0 Hypertensive urgency; R42 Dizziness and giddiness; Z79.4 Long term (current) use of insulin; Z79.899 Other long term (current) drug therapy; I10 Essential (primary) hypertension; E78.49 Other hyperlipidemia; Z85.42 Personal history of malignant neoplasm of other parts of uterus; E66.9 Obesity, unspecified; J45.909 Unspecified asthma, uncomplicated; Z87.891 Personal history of nicotine dependence

== ENCOUNTER 2020-10-05 19:08 | Inpatient (IN) | payer MEDICARE, OTHER ==
[~2020-10-05] VITALS: Ht 152.4 cm; Wt 81.4 kg
[~2020-10-05 19:08] MED LIST changes: +KLOR10TA76 PO; +LISI-898 PO; -POTA-136 PO
[2020-10-05] MEDS ORDERED: DEXTROSE 50% 50 ML SYRINGE IV STA ×2 (19:15→21:13)
[2020-10-05] MEDS ORDERED: DEXTROSE 50% 50 ML SYRINGE As Ordered ONE (19:16)
[2020-10-05 19:40] LABS: BASO # 0.1 10^3/uL (0.0-0.2); BASO % 0.5 % (0.0-1.0); EOS # 0.3 10^3/uL (0.0-0.5); EOS % 2.1 % (0.0-3.0); HEMOGLOBIN 13.1 g/dl (12.0-15.5); LYMPH # 4.3 10^3/uL (1.5-5.0); LYMPH % 35.8 % (24.0-44.0); MEAN CORPUSCULAR HEMOGLOBIN 26.1 pg (27.0-33.0); MEAN CORPUSCULAR HGB CONC 30.5 g/dl (32.0-36.5); MEAN CORPUSCULAR VOLUME 85.8 fl (80.0-96.0); MONO # 0.7 10^3/uL (0.0-0.8); NEUTROPHILS # 6.7 10^3/uL (1.5-8.5); NEUTROPHILS % 55.4 % (36.0-66.0); PLATELET COUNT, AUTOMATED 312 10^3/uL (150-450); RED BLOOD COUNT 5.01 10^6/uL (4.00-5.40); WHITE BLOOD COUNT 12.1 10^3/uL (4.0-10.0)
[2020-10-05 20:12] LABS: ALBUMIN 3.6 GM/DL (3.2-5.2); ALT/SGPT 23 U/L (12-78); BILIRUBIN,DIRECT < 0.1 MG/DL (0.0-0.2); BILIRUBIN,TOTAL 0.3 MG/DL (0.2-1.0); LIPASE 202 U/L (73-393); TOTAL PROTEIN 7.1 GM/DL (6.4-8.2)
--- NOTE | 2020-10-05 20:30 | REPVR ---
PROCEDURE INFORMATION: Exam: CT Head Without Contrast Exam date and time: 10/05/2020 7:43 PM Age: 70 years old Clinical indication: Injury or trauma; Fall; Blunt trauma (contusions or hematomas) TECHNIQUE: Imaging protocol: Computed tomography of the head without contrast. Radiation optimization: All CT scans at this facility use at least one of these dose optimization techniques: automated exposure control; mA and/or kV adjustment per patient size (includes targeted exams where dose is matched to clinical indication); or iterative reconstruction. COMPARISON: CT Head without contrast 07/05/2020 11:35 AM FINDINGS: Brain: There is no evidence of intracranial bleed. The taylor-white differentiation appears preserved. Cerebral ventricles: Normal ventricles. Paranasal sinuses: There is mucosal thickening right maxillary sinus. There is also mucosal thickening right ethmoid sinus consistent with chronic changes of sinusitis. Mastoid air cells: Clear mastoid air cells. Orbital cavity: Symmetric orbits. Vasculature: There is some calcification of the carotid siphon bilaterally consistent with atherosclerotic changes. Bones/joints: There is no evidence of fracture. There is no evidence of fracture. Soft tissues: There is no evidence of soft tissue swelling. No evidence of soft tissue swelling. IMPRESSION: 1. No evidence of fracture. 2. No evidence of bleed. Electronically signed by: Waqar Montaño On 10/05/2020 20:28:50 PM
--- NOTE | 2020-10-05 20:39 | REPVR ---
PROCEDURE INFORMATION: Exam: CT Cervical Spine Without Contrast Exam date and time: 10/05/2020 7:43 PM Age: 70 years old Clinical indication: Injury or trauma; Fall; Blunt trauma TECHNIQUE: Imaging protocol: Computed tomography images of the cervical spine without contrast. Radiation optimization: All CT scans at this facility use at least one of these dose optimization techniques: automated exposure control; mA and/or kV adjustment per patient size (includes targeted exams where dose is matched to clinical indication); or iterative reconstruction. COMPARISON: CT Head without contrast 07/05/2020 11:35 AM FINDINGS: Vertebrae: The cervical vertebra and facet joints appear in alignment. There is no evidence of fracture. The dens appears intact in the lateral masses of C1 appear symmetric. Vasculature: There is calcification of the carotid bifurcation bilaterally which is directly posterior to the hypopharynx. Lungs: Lung apices are normal. IMPRESSION: No evidence of fracture. Electronically signed by: Waqar Montaño On 10/05/2020 20:39:22 PM
[2020-10-05] MEDS: HumaLOG INSULIN (NovoLOG) PER UNIT SC SCH (21:00)
[2020-10-05] MEDS ORDERED: D5W/0.45% SODIUM CHLORIDE 1,000 ML IV SCH (21:15)
[2020-10-05 21:31] LABS: RSV AMPLIFICATION NEGATIVE (NEGATIVE)
[2020-10-05] MEDS ORDERED: DEXTROSE 50% 50 ML SYRINGE IV PRN (22:50)
[2020-10-05] MEDS ORDERED: MAALOX 30 ML SUSP *UDC PO PRN (22:50)
[2020-10-05] MEDS ORDERED: GLUCOSE 4GM CHEW TABLET PO PRN (22:50)
[2020-10-05] MEDS ORDERED: D5W/0.9% SODIUM CHLORIDE 1,000 ML IV SCH (22:50)
[2020-10-05] MEDS ORDERED: MOM 30ML SUSPENSION UDC PO PRN (22:50)
[2020-10-05] MEDS ORDERED: GLUCAGON INJ 1MG VIAL SC PRN (22:50)
--- NOTE | 2020-10-05 22:50 | HPEPDOC ---
[facility] Medical History & Physical Date of Admission Oct 05, 2020 Date of Service: Oct 05, 2020 Other Provider Jamison Quiros Attending Physician: NORA HUNTER MD History and Physical TIME OF SERVICE: 1015PM CHIEF COMPLAINT: fall HISTORY OF PRESENT ILLNESS: The majority of the history was obtained from ; the patient was unable to recall all of the events leading to her return to the ER. was last admitted from Oct 03 to for management of symptomatic hypoglycemia and HTN Urgency; based on the discharge note her Levemir was decreased from 7units BID to 5units BID and she was started on Lisinopril. Today she accompanied her niece, who had come in for = medical evaluation, to her the ER; while they were walking out of the building. Ms. Killian had a fall and was found lying on the ground in the parking lot. At the time she was not able to answer questions appropriately. Her serum glucose was 18; she was started on D5NS. At the time of my evaluation she c/o a frontal 7/10 in severity JEAN and feeling cold. She thinks that she had breakfast and lunch. She denied having CP, abdominal pain, f/c/n/v/d/, back pain or joint pain. She also added that she has been constipated. REVIEW OF SYSTEMS: 10-point review of systems negative except as listed in HPI PAST MEDICAL/ SURGICAL HISTORY: essential HTN, class 2 obesity, IDDM, chronic asthma, DLP, resection of an abdominal lipoma, uterine cancer managed w JAMES w [facility] SOCIAL HISTORY: Smoker: former Smoker / Alcohol: Denies (Quit drinking 10 years ago) / Drugs: denies FAMILY HISTORY: Father: History of alcoholic liver cirrhosis, CAD / Mother: History of CAD ALLERGIES: Please see below. HOME MEDICATIONS: Please see below. PHYSICAL EXAMINATION: Vital Signs Date Time Temp Pulse Resp B/P (MAP) Pulse Ox O2 Delivery O2 Flow Rate FiO2 10/05/20 19:19 163/79 (107) 10/05/20 19:23 78 20 Room Air 10/05/20 19:38 98 10/05/20 19:59 96.2 GENERAL APPEARANCE: well-nourished and developed / NAD HEENT: EOMI /MMM&P CARDIOVASCULAR: RRR/NMRG LUNGS: CTAB on RA ABDOMEN: contour obese/ she has a mass at the left upper abdomen MUSCULOSKELETAL: JORDAN x 4 INTEGUMENT: she has some abrasions on her right hand NEUROLOGICAL: CN 2-12 grossly intact/ speech not dysarthric PSYCHIATRIC: A&O / able to understand and follow simple commands LABORATORY DATA: IMAGING: CT cervical spine IMPRESSION: No evidence of fracture. CT head IMPRESSION: 1. No evidence of fracture. 2. No evidence of bleed. MICROBIOLOGY: respiratory panel is neg ASSESSMENT: Ms. Killian is a 70 yr old F w HTN, obesity, IDDM, asthma, & DLP who is re-admitted for management of hypoglycemia. PLAN: 1 Recurrent Hypoglycemia / IDDM This is her 5th visit to our facility for this issue in the last 7 months. Plan: admit to PCU / switch to D10 / f/u FSBS Q2H / pending A1C the day time team may consider discontinuing the insulin (her target A1C is 7.1 to 8.5% because she is elderly and has recurrent episodes of hypoglycemia) / diabetic diet / f/u accuchecks / hypoglycemia protocol / sliding scale insulin / hold oral DM meds / if she remains in insulin her PCP may consider out pt Endo referral to switch the patient from basal bolus injection to continuous subcutaneous insulin infusion which has been shown to produced small improvements in A1C, improve QOL and reduce episodes of severe hypoglycemia 2 HTN Urgency She has a JEAN but no signs of end organ damage Plan: add amlodipine / c/w lisinopril / acetaminophen for JEAN 3 Elevated ALT Likely due to fatty liver Plan: f/u w PCP for hepatitis screening and liver US 4 Chronic asthma Plan: per 2019 JESSENIA guidelines start budesonide inhaler 5 Class 2 obesity Complicates care DVT px w lovenox (Mao Prediction Score to determine the in-patient risk of VTE & need for anticoagulation is 5 . Individuals with a Mao Score <4 are low risk of VTE and thromboprophylaxis should be considered on a [id number]-az-[id number] basis while individuals with a Mao score >4 are high risk for VTE and will likely benefit from thromboprophylaxis unless the patient has major contraindication such as major bleeding or thrombocytopenia). Dispo: home after at least 2 midnights stay Her LACE Index Score is 4 points which indicates that she is at high risk for re-admission or within the next 30 days. A PFS consult has been placed. Home Medications Scheduled Dulaglutide (Trulicity) 1.5 Mg/0.5 Ml Pen.injctr, 1.5 MG SC QWEEK THURSDAYS Empagliflozin (Jardiance) 10 Mg Tablet, 10 MG PO DAILY Insulin Detemir (Levemir) 100 Unit/1 Ml Vial, 5 UNITS SC BID Lisinopril (Lisinopril) 5 Mg Tablet, 5 MG PO DAILY Allergies Coded Allergies: adhesive tape (Verified Allergy, Intermediate, RASH, 10/03/20) A-FIB/CHADSVASC A-FIB History Current/History of A-Fib/PAF?: No Current PO Anticoag Therapy: No NORA HUNTER MD Oct 05, 2020 22:50
[2020-10-05] MEDS ORDERED: INSUDET SC (23:01)
[2020-10-05] MEDS ORDERED: LISI-898 PO (23:01)
[2020-10-05] MEDS ORDERED: HOME MED LIST COMPLETE! XX SCH (23:05)
[2020-10-05 23:16] LABS: HEMOGLOBIN A1c 6.4 %
[2020-10-05] MEDS ORDERED: D10W/0.45% SODIUM CHLORIDE 1,000 ML IV SCH (23:35)
[2020-10-06] VITALS (7 sets, daily range): BP systolic 148–191; BP diastolic 56–86
[2020-10-06 05:13] LABS: HEMATOCRIT 40.6 % (36.0-47.0); HEMOGLOBIN 12.2 g/dl (12.0-15.5); MEAN CORPUSCULAR HEMOGLOBIN 25.7 pg (27.0-33.0); MEAN CORPUSCULAR VOLUME 85.5 fl (80.0-96.0); PLATELET COUNT, AUTOMATED 280 10^3/uL (150-450); RED BLOOD COUNT 4.75 10^6/uL (4.00-5.40); WHITE BLOOD COUNT 7.5 10^3/uL (4.0-10.0)
[2020-10-06 05:40] LABS: BLOOD UREA NITROGEN 15 MG/DL (7-18); CALCIUM LEVEL 8.3 MG/DL (8.8-10.2); CARBON DIOXIDE LEVEL 26 MEQ/L (21-32); CHLORIDE LEVEL 111 MEQ/L (98-107); GLOMERULAR FILTRATION RATE > 60.0 (>39); GLUCOSE, FASTING 138 MG/DL (70-100); POTASSIUM SERUM 3.5 MEQ/L (3.5-5.1); SODIUM LEVEL 143 MEQ/L (136-145)
[2020-10-06] MEDS: ACETAMINOPHEN TAB 650MG DOSE (2X325MG) PO PRN (06:05)
[2020-10-06] MEDS ORDERED: amLODIPine 5 MG TAB PO ONE (06:35)
[2020-10-06] MEDS: HumaLOG INSULIN (NovoLOG) PER UNIT SC SCH ×4 (07:30→20:39)
[2020-10-06] MEDS: BUDESONIDE 180MCG INHALER (PULMICORT FLEXHALER) INH SCH ×2 (07:42→21:24)
[2020-10-06] MEDS: ENOXAPARIN 40MG/0.4ML SYRINGE (J1650 PER 10MG) SC SCH (08:16)
[2020-10-06] MEDS: lisinopriL 5 MG TAB PO SCH (08:16)
--- NOTE | 2020-10-06 08:44 | ECGEPIP ---
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
[2020-10-06] MEDS ORDERED: MIRALAX *UNIT DOSE* 17GM PACKET PO PRN (10:20)
[2020-10-06] MEDS ORDERED: SENOKOT S TAB PO PRN (10:20)
--- NOTE | 2020-10-06 10:26 | IPNPDOC ---
Text Note Date of Service The patient was seen on 10/06/20. NOTE Subjective: Patient is a 70-year-old female with a PMHx of HTN, IDDM2, DLP, Chronic Asthma, Obesity, who presented to the emergency room for symptomatic hypoglycemia. Patient had fallen, was found to have a glucose of 14 was brought to the ER for further evaluation. Patient was admitted to the hospital service for further evaluation and treatment. Of note, patient was admitted for hypoglycemia 10/03 to 10/04. Patient had the dose of her Levemir produced from 7 units BID to 5 units BID. Patient was seen and examined at the bedside. Currently, she denies any chest pain, shortness of breath, palpitations, nausea, vomiting or abdominal pain. She does report constipation and has not yet had a bowel movement in 2 days. Denies any urinary discomfort. Objective: Vitals (See below) General: Lying in bed, appears comfortable, AAOx3 HEENT: NC, AT CVS: RRR, +S1S2 Lungs: Fair air entry b/l, no evidence of wheezing, rales or rhonchi Abdomen: Soft, non-distended, non-tender Extremities: - Edema, - Calf tenderness Imaging: CT head 10/06: 1. No evidence of fracture. 2. No evidence of bleed. CT Cervical spine 10/06: No evidence of fracture. Assessment and plan: Recurrent Hypoglycemia / IDDM2 - Currently patient is asymptomatic / AAOx3 - Glucose levels have improved - A1c of 6.4 - indicating glucose levels have been very well controlled / possibly hypoglycemic as an outpatient - Will DC dextrose based fluids - c/w ISS alone at this time; s/p Long acting insulin HTN Urgency - BP remains elevated - c/w Lisinopril / Amlodipine Elevated ALT - likely 2/2 Fatty liver - Will have outpatient follow up with PCP Constipation - Will add additional agents to current regimen Chronic asthma - c/w Inhaled therapy as ordered Class 2 obesity - BMI of 34.4 - Complicating medical care GI prophylaxis - c/w DVT prophylaxis - c/w Lovenox Disposition: - Awaiting clinical improvement VS,Fishbone, I+O VS, Fishbone, I+O Laboratory Tests 10/05/20 19:26 10/06/20 05:04 Vital Signs Date Time Temp Pulse Resp B/P (MAP) Pulse Ox O2 Delivery O2 Flow Rate FiO2 10/06/20 08:00 97.7 73 19 191/84 (119) 96 Room Air I&O- Last 24 Hours up to 6 AM 10/06/20 05:59 Intake Total 420 ml Balance 420 ml EUN CRUZ MD Oct 06, 2020 10:26
[2020-10-07] VITALS: BP 147/67
[2020-10-07 04:05] VITALS: BP 150/74
[2020-10-07 05:29] LABS: BASO % 0.5 % (0.0-1.0); EOS # 0.3 10^3/uL (0.0-0.5); EOS % 4.2 % (0.0-3.0); HEMATOCRIT 41.6 % (36.0-47.0); HEMOGLOBIN 12.5 g/dl (12.0-15.5); LYMPH # 2.3 10^3/uL (1.5-5.0); LYMPH % 34.2 % (24.0-44.0); MEAN CORPUSCULAR VOLUME 86.7 fl (80.0-96.0); MONO # 0.5 10^3/uL (0.0-0.8); MONO % 8.2 % (2.0-8.0); NEUTROPHILS # 3.5 10^3/uL (1.5-8.5); NEUTROPHILS % 52.4 % (36.0-66.0); PLATELET COUNT, AUTOMATED 289 10^3/uL (150-450); WHITE BLOOD COUNT 6.6 10^3/uL (4.0-10.0)
[2020-10-07 05:45] LABS: BLOOD UREA NITROGEN 15 MG/DL (7-18); CALCIUM LEVEL 8.3 MG/DL (8.8-10.2); CARBON DIOXIDE LEVEL 25 MEQ/L (21-32); CHLORIDE LEVEL 109 MEQ/L (98-107); CREATININE FOR GFR 0.73 MG/DL (0.55-1.30); GLOMERULAR FILTRATION RATE > 60.0 (>39); GLUCOSE, FASTING 189 MG/DL (70-100); MAGNESIUM LEVEL 1.9 MG/DL (1.8-2.4); POTASSIUM SERUM 4.1 MEQ/L (3.5-5.1); SODIUM LEVEL 141 MEQ/L (136-145)
[2020-10-07 07:23] VITALS: BP 166/80
[2020-10-07] MEDS: BUDESONIDE 180MCG INHALER (PULMICORT FLEXHALER) INH SCH (07:44)
[2020-10-07] MEDS ORDERED: metFORMIN (GLUCOPHAGE) 1000 MG TABLET PO SCH (08:00)
[2020-10-07] MEDS: HumaLOG INSULIN (NovoLOG) PER UNIT SC SCH (08:48)
[2020-10-07 08:49] VITALS: BP 166/80
[2020-10-07] MEDS: lisinopriL 5 MG TAB PO SCH (08:49)
[2020-10-07] MEDS: ENOXAPARIN 40MG/0.4ML SYRINGE (J1650 PER 10MG) SC SCH (08:49)
[2020-10-07] MEDS ORDERED: AMLO25TA PO (09:00)
[2020-10-07] MEDS ORDERED: AMLO1TAB24 PO (09:02)
--- NOTE | 2020-10-07 10:31 | DS.PDOC ---
Discharge Summary General Date of Admission Oct 05, 2020 at 22:46 Date of Discharge 10/07/2020 Discharge Summary PROCEDURES PERFORMED DURING STAY: [None]. ADMITTING DIAGNOSES / DISCHARGE DIAGNOSES: Recurrent Hypoglycemia / IDDM2 HTN Urgency Elevated ALT - likely 2/2 Fatty liver Constipation Chronic asthma Class 2 obesity DVT prophylaxis COMPLICATIONS/CHIEF COMPLAINT: Hypoglycemia HISTORY OF PRESENT ILLNESS: Patient is a 70-year-old female with a PMHx of HTN, IDDM2, DLP, Chronic Asthma, Obesity, who presented to the emergency room for symptomatic hypoglycemia. Patient had fallen, was found to have a glucose of 14 was brought to the ER for further evaluation. Patient was admitted to the hospital service for further evaluation and treatment. Of note, patient was admitted for hypoglyc emia 10/03 to 10/04. Patient had the dose of her Levemir produced from 7 units BID to 5 units BID. Patient was seen and examined at the bedside. Patient was seen sitting up eating breakfast. Denies any chest pain, shortness breath, palpitations. No abdominal pain, diarrhea, or urinary discomfort. Has not expressed any nausea or vomiting. HOSPITAL COURSE: Recurrent Hypoglycemia / IDDM2 - Patient remains asymptomatic throughout her hospital stay - Glucose levels have not been hypoglycemic in fact have remained between 120 and 200 - A1c of 6.4 - indicating glucose levels have been very well controlled / possibly hypoglycemic as an outpatient - s/p Dextrose based fluids - Will resume patient on oral hypoglycemic agents - Will discontinue Trulicity and Levemir on discharge - Will have outpatient follow-up with primary care provider and endocrinology within the next 7 days HTN Urgency - BP remains elevated - c/w Lisinopril / Amlodipine Elevated ALT - likely 2/2 Fatty liver - Will have outpatient follow up with PCP Constipation -c/w current regimen Chronic asthma - c/w Inhaled therapy as ordered Class 2 obesity - BMI of 34.4 - Complicating medical care DVT prophylaxis - c/w Lovenox DISCHARGE MEDICATIONS: Please see below. ALLERGIES: Please see below. PHYSICAL EXAMINATION ON DISCHARGE: Vitals (See below) General: Sitting up in bed, no acute distress, awake / alert, oriented x3 HEENT: Normocephalic and atraumatic CVS: +S1S2 Lungs: Air entry appears to be fair bilaterally without any crackles, wheezing or rhonchi on auscultation Abdomen: Soft without any distention or tenderness Extremities: no evidence of edema LABORATORY DATA: Please see below. IMAGING: CT head 10/06: 1. No evidence of fracture. 2. No evidence of bleed. CT Cervical spine 10/06: No evidence of fracture. ACTIVITY: [As tolerated]. DISCHARGE PLAN: Follow-up with primary care provider, and endocrinology within the next 7 days Remain compliant with treatment plan and medications Return to the ER if you experience any problems DISPOSITION: Home with services DISCHARGE CONDITION: [Stable]. TIME SPENT ON DISCHARGE: 35 minutes. Vital Signs/I&Os Vital Signs Date Time Temp Pulse Resp B/P (MAP) Pulse Ox O2 Delivery O2 Flow Rate FiO2 10/07/20 08:49 166/80 10/07/20 07:23 97.2 76 18 97 Room Air I&O- Last 24 Hours up to 6 AM 10/07/20 05:59 Intake Total 1380 ml Output Total 1800 ml Balance -420 ml Laboratory Data Labs 24H Laboratory Tests 2 10/06/20 11:55: Bedside Glucose (Misc Panel) 249H 10/06/20 17:35: Bedside Glucose (Misc Panel) 211H 10/06/20 20:38: Bedside Glucose (Misc Panel) 229H 10/07/20 04:52: Immature Granulocyte % (Auto) 0.5, Neutrophils (%) (Auto) 52.4, Lymphocytes (%) (Auto) 34.2, Monocytes (%) (Auto) 8.2H, Eosinophils (%) (Auto) 4.2H, Basophils (%) (Auto) 0.5, Neutrophils # (Auto) 3.5, Lymphocytes # (Auto) 2.3, Monocytes # (Auto) 0.5, Eosinophils # (Auto) 0.3, Basophils # (Auto) 0.0, Nucleated Red Blood Cells % (auto) 0.0, Anion Gap 7L, Glomerular Filtration Rate > 60.0, Calcium Level 8.3L, Magnesium Level 1.9 CBC/BMP Laboratory Tests 10/07/20 04:52 FSBS Laboratory Tests Test 10/06/20 11:55 10/06/20 17:35 10/06/20 20:38 Range/Units Bedside Glucose (Misc Panel) 249 211 229 83-110 MG/DL Discharge Medications Scheduled Amlodipine Besylate (Amlodipine Besylate) 5 Mg Tablet, 1 TAB PO DAILY Empagliflozin (Jardiance) 10 Mg Tablet, 10 MG PO DAILY, (Reported) Lisinopril (Lisinopril) 5 Mg Tablet, 5 MG PO DAILY, (Reported) Allergies Coded Allergies: adhesive tape (Verified Allergy, Intermediate, RASH, 10/03/20) EUN CRUZ MD Oct 07, 2020 10:31
[2020-10-07] MEDS: ACETAMINOPHEN TAB 650MG DOSE (2X325MG) PO PRN (11:41)
[2020-10-08] MEDS ORDERED: TRUL10IN (18:30)
[2020-10-08] MEDS ORDERED: INSUDET SC (18:30)
== END 2020-10-07 12:52 | disposition home health service (06) | DRG 639 ==
LOC: M ED 19:08 → M ED INP 22:46 → ENRESERV 23:00 → M PCU 10-06 00:03
PROVIDERS: ADMIT Internal Medicine; ATTEND Internal Medicine
DX: E11.649 Type 2 diabetes mellitus with hypoglycemia without coma (principal); I16.0 Hypertensive urgency; Z79.4 Long term (current) use of insulin; Z79.899 Other long term (current) drug therapy; Z85.42 Personal history of malignant neoplasm of other parts of uterus; E66.9 Obesity, unspecified; J45.909 Unspecified asthma, uncomplicated; Z87.891 Personal history of nicotine dependence; K76.0 Fatty (change of) liver, not elsewhere classified; Z68.34 Body mass index [BMI] 34.0-34.9, adult; K59.00 Constipation, unspecified

== ENCOUNTER 2020-10-08 18:02 | Emergency (ER) | payer MEDICARE, OTHER ==
[~2020-10-08] VITALS: Ht 149.9 cm; Wt 82.3 kg
[~2020-10-08 18:02] MED LIST changes: +AMLO1TAB24 PO; +AMLO25TA PO
[2020-10-08] MEDS ORDERED: TRUL10IN (18:30)
[2020-10-08] MEDS ORDERED: INSUDET SC (18:30)
--- NOTE | 2020-10-08 21:28 | REPVR ---
PROCEDURE INFORMATION: Exam: XR Left Wrist Exam date and time: 10/08/2020 9:06 PM Age: 70 years old Clinical indication: Pain; Wrist; Left; Prior surgery; Surgery date: 6+ months; Patient HX: 5 yrs ago / plate and screws; Additional info: Fall TECHNIQUE: Imaging protocol: XR Left wrist. Views: 3 or more views. COMPARISON: CR WRIST COMPLETE 06/13/2015 12:31 PM FINDINGS: Bones/joints: Status post ORIF distal radius transfixing a distal radial fracture. Otherwise unremarkable. Osteoporosis. Soft tissues: Normal. IMPRESSION: No acute findings. Electronically signed by: Ortiz Naik On 10/08/2020 21:28:06 PM
[2020-10-08] MEDS ORDERED: ACETAMINOPHEN 500 MG TAB PO ONE (23:05)
[2020-10-08 23:13] VITALS: BP 148/79
== END 2020-10-08 23:19 | disposition home or self-care (01) ==
LOC: M ED 18:02
DX: S50.12XA Contusion of left forearm, initial encounter (principal); W19.XXXA Unspecified fall, initial encounter; M25.532 Pain in left wrist; Y92.481 Parking lot as the place of occurrence of the external cause; Y93.9 Activity, unspecified; Y99.9 Unspecified external cause status; Z87.81 Personal history of (healed) traumatic fracture; Z91.048 Other nonmedicinal substance allergy status

== ENCOUNTER 2020-10-13 17:29 | Emergency (ER) | payer MEDICARE, OTHER ==
[~2020-10-13] VITALS: Ht 149.9 cm; Wt 81.0 kg
[~2020-10-13 17:29] MED LIST changes: +TRUL10IN
[2020-10-13 19:00] VITALS: BP 132/76
== END 2020-10-13 19:08 | disposition home or self-care (01) ==
LOC: EDBD 17:29 → M ED 17:29
DX: E11.65 Type 2 diabetes mellitus with hyperglycemia (principal); I10 Essential (primary) hypertension; E78.5 Hyperlipidemia, unspecified; J45.909 Unspecified asthma, uncomplicated; E66.9 Obesity, unspecified; Z79.4 Long term (current) use of insulin; Z79.899 Other long term (current) drug therapy; Z91.89 Other specified personal risk factors, not elsewhere classified

== ENCOUNTER 2020-10-15 11:00 | Emergency (ER) | payer MEDICARE, OTHER ==
[~2020-10-15] VITALS: Ht 152.4 cm; Wt 82.3 kg
--- NOTE | 2020-10-15 11:30 | REP ---
INDICATION: trauma COMPARISON: 10/05/2020 TECHNIQUE: Axial noncontrast images from the skull base to the thoracic inlet with coronal reformations. This CT examination was performed using the following dose reduction techniques: Automated exposure control, adjustment of mA and/or kv according to the patient's size, and use of iterative reconstruction technique. FINDINGS: Atrophy with periventricular leukomalacia and microvascular ischemic changes are appreciated. The ventricles and sulci are symmetric. Alcocer-white differentiation is maintained. There is no evidence for acute intracranial hemorrhage, mass/mass effect, pathology or infarction. No extra-axial fluid collection. Calvarium is intact. Paranasal sinuses and mastoid air cells are within normal limits. IMPRESSION: Atrophy and microvascular ischemic changes. No acute intracranial hemorrhage, infarction, or mass/mass effect. <Electronically signed by Giacomo Da Silva > 10/15/20 1121
[2020-10-15] MEDS ORDERED: NS 500 ML IV ONE (12:10)
--- NOTE | 2020-10-15 12:23 | REP ---
INDICATION: Altered Mental Status COMPARISON: 07/05/2020 TECHNIQUE: Portable AP view of the chest FINDINGS: The mediastinum and cardiac silhouette are stable and within normal limits for portable technique. The lung vaughn are clear without acute consolidation, effusion, or pneumothorax. Skeletal structures are intact. IMPRESSION: No acute cardiopulmonary process appreciated. <Electronically signed by Giacomo Da Silva > 10/15/20 [id number]
[2020-10-15 13:42] LABS: BASO # 0.1 10^3/uL (0.0-0.2); BASO % 0.6 % (0.0-1.0); EOS # 0.3 10^3/uL (0.0-0.5); EOS % 3.2 % (0.0-3.0); HEMATOCRIT 45.9 % (36.0-47.0); HEMOGLOBIN 14.1 g/dl (12.0-15.5); LYMPH # 3.1 10^3/uL (1.5-5.0); LYMPH % 37.8 % (24.0-44.0); MEAN CORPUSCULAR HEMOGLOBIN 25.9 pg (27.0-33.0); MEAN CORPUSCULAR HGB CONC 30.7 g/dl (32.0-36.5); MEAN CORPUSCULAR VOLUME 84.2 fl (80.0-96.0); MONO # 0.6 10^3/uL (0.0-0.8); MONO % 6.8 % (2.0-8.0); NEUTROPHILS # 4.2 10^3/uL (1.5-8.5); NEUTROPHILS % 51.4 % (36.0-66.0); PLATELET COUNT, AUTOMATED 350 10^3/uL (150-450); RED BLOOD COUNT 5.45 10^6/uL (4.00-5.40); WHITE BLOOD COUNT 8.1 10^3/uL (4.0-10.0)
[2020-10-15 14:06] LABS: OSMOLALITY SERUM 290 MOSM/KG (280-301)
[2020-10-15 14:18] LABS: ALBUMIN 3.5 GM/DL (3.2-5.2); ALT/SGPT 22 U/L (12-78); BILIRUBIN,DIRECT < 0.1 MG/DL (0.0-0.2); BILIRUBIN,TOTAL 0.2 MG/DL (0.2-1.0); BLOOD UREA NITROGEN 14 MG/DL (7-18); CALCIUM LEVEL 9.2 MG/DL (8.8-10.2); CARBON DIOXIDE LEVEL 26 MEQ/L (21-32); CHLORIDE LEVEL 111 MEQ/L (98-107); CK-MB VALUE MASS < 1.0 NG/ML (<3.6); CPK CREATINE PHOSPHOKINASE 43 U/L (26-192); CREATININE FOR GFR 0.65 MG/DL (0.55-1.30); GLOMERULAR FILTRATION RATE > 60.0 (>39); GLUCOSE, FASTING 44 MG/DL (70-100); MB/CK RELATIVE INDEX 2.33 (< OR =4); POTASSIUM SERUM 4.3 MEQ/L (3.5-5.1); SODIUM LEVEL 142 MEQ/L (136-145); TOTAL PROTEIN 6.9 GM/DL (6.4-8.2); TROPONIN I < 0.02 NG/ML (< 0.10)
[2020-10-15 18:45] VITALS: BP 151/72
--- NOTE | 2020-10-15 20:45 | ECGEPIP ---
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
== END 2020-10-15 19:00 | disposition home or self-care (01) ==
LOC: EDBD 11:00 → M ED 11:00
DX: E11.649 Type 2 diabetes mellitus with hypoglycemia without coma (principal); I10 Essential (primary) hypertension; J45.909 Unspecified asthma, uncomplicated; Z85.42 Personal history of malignant neoplasm of other parts of uterus; Z87.891 Personal history of nicotine dependence; Z79.4 Long term (current) use of insulin; Z79.899 Other long term (current) drug therapy; Z91.89 Other specified personal risk factors, not elsewhere classified

== ENCOUNTER 2020-10-29 20:30 | Emergency (ER) | payer MEDICARE, OTHER ==
[~2020-10-29] VITALS: Ht 149.9 cm; Wt 78.3 kg
[2020-10-30] MEDS ORDERED: NAPROXEN 250 MG TAB PO ONE (01:45)
[2020-10-30] MEDS ORDERED: NAPR-885 PO (02:14)
[2020-10-30 02:27] VITALS: BP 147/67
== END 2020-10-30 02:28 | disposition home or self-care (01) ==
LOC: M ED 20:30
DX: D17.1 Benign lipomatous neoplasm of skin and subcutaneous tissue of trunk (principal); E11.9 Type 2 diabetes mellitus without complications; Z79.4 Long term (current) use of insulin; Z91.89 Other specified personal risk factors, not elsewhere classified

== ENCOUNTER 2020-11-20 16:07 | Emergency (ER) | payer MEDICARE, OTHER ==
[~2020-11-20 16:07] MED LIST changes: -KLOR10TA76 PO; +NAPR-885 PO; +POTA-136 PO
[2020-11-20 18:12] LABS: VENOUS BASE EXCESS 3.3 (-2.0-2.0); VENOUS HCO3 30.2 MEQ/L (23.0-27.0); VENOUS O2 SATURATION 94.3 % (60.0-80.0); VENOUS PARTIAL PRESSURE CO2 54.6 mmHg (38.0-50.0); VENOUS PARTIAL PRESSURE O2 80.7 mmHg (30.0-50.0); VENOUS STANDARD HCO3 27.3 MEQ/L; VENOUS TOTAL CO2 31.8 MEQ/L (24.0-28.0)
[2020-11-20 18:19] LABS: BASO % 0.4 % (0.0-1.0); EOS # 0.1 10^3/uL (0.0-0.5); EOS % 0.6 % (0.0-3.0); HEMATOCRIT 47.9 % (36.0-47.0); HEMOGLOBIN 14.8 g/dl (12.0-15.5); LYMPH # 1.5 10^3/uL (1.5-5.0); LYMPH % 13.9 % (24.0-44.0); MEAN CORPUSCULAR HEMOGLOBIN 26.1 pg (27.0-33.0); MEAN CORPUSCULAR HGB CONC 30.9 g/dl (32.0-36.5); MEAN CORPUSCULAR VOLUME 84.5 fl (80.0-96.0); MONO # 0.4 10^3/uL (0.0-0.8); MONO % 3.5 % (2.0-8.0); NEUTROPHILS # 8.6 10^3/uL (1.5-8.5); NEUTROPHILS % 81.2 % (36.0-66.0); PLATELET COUNT, AUTOMATED 277 10^3/uL (150-450); RED BLOOD COUNT 5.67 10^6/uL (4.00-5.40); WHITE BLOOD COUNT 10.6 10^3/uL (4.0-10.0)
[2020-11-20] MEDS ORDERED: DEXTROSE 50% 50 ML SYRINGE IV STA (18:22)
[2020-11-20 18:40] LABS: OSMOLALITY SERUM 291 MOSM/KG (280-301)
[2020-11-20 18:46] LABS: ACETONE/KETONE 1.17 MG/DL (<2.81); ALBUMIN 3.4 GM/DL (3.2-5.2); ALT/SGPT 30 U/L (12-78); BILIRUBIN,DIRECT < 0.1 MG/DL (0.0-0.2); BILIRUBIN,TOTAL 0.4 MG/DL (0.2-1.0); LIPASE 246 U/L (73-393); MAGNESIUM LEVEL 2.2 MG/DL (1.8-2.4); PHOSPHORUS LEVEL 3.4 MG/DL (2.5-4.9); TOTAL PROTEIN 7.1 GM/DL (6.4-8.2)
[2020-11-20 19:28] LABS: BLOOD UREA NITROGEN 16 MG/DL (7-18); CALCIUM LEVEL 9.2 MG/DL (8.8-10.2); CARBON DIOXIDE LEVEL 30 MEQ/L (21-32); CHLORIDE LEVEL 104 MEQ/L (98-107); CREATININE FOR GFR 0.75 MG/DL (0.55-1.30); GLOMERULAR FILTRATION RATE > 60.0 (>39); GLUCOSE, FASTING 32 MG/DL (70-100); POTASSIUM SERUM 4.9 MEQ/L (3.5-5.1); SODIUM LEVEL 139 MEQ/L (136-145)
[2020-11-20 22:30] VITALS: BP 158/82
--- NOTE | 2020-11-21 07:50 | ECGEPIP ---
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
== END 2020-11-20 22:50 | disposition home or self-care (01) ==
LOC: M ED 16:07
DX: E11.649 Type 2 diabetes mellitus with hypoglycemia without coma (principal); I10 Essential (primary) hypertension; E78.5 Hyperlipidemia, unspecified; K21.9 Gastro-esophageal reflux disease without esophagitis; Z79.4 Long term (current) use of insulin; Z79.899 Other long term (current) drug therapy; Z91.89 Other specified personal risk factors, not elsewhere classified

== ENCOUNTER 2020-11-26 19:41 | Emergency (ER) | payer MEDICARE, OTHER ==
--- NOTE | 2020-11-26 21:37 | REPVR ---
PROCEDURE INFORMATION: Exam: XR Chest Exam date and time: 11/26/2020 9:17 PM Age: 70 years old Clinical indication: Shortness of breath; Additional info: Chest pain TECHNIQUE: Imaging protocol: XR of the chest. Views: 2 views. COMPARISON: CR PORTABLE CHEST X-RAY 10/15/2020 12:11 PM FINDINGS: Lungs: Unremarkable. No consolidation. Pleural spaces: Unremarkable. No pleural effusion. No pneumothorax. Heart/Mediastinum: Unremarkable. No cardiomegaly. Bones/joints: Unremarkable. IMPRESSION: No acute findings. Electronically signed by: Ortiz Naik On 11/26/2020 21:36:50 PM
[2020-11-26] MEDS ORDERED: ASPIRIN 81 MG CHEW TABLET PO ONE (22:15)
[2020-11-26] MEDS ORDERED: ACETAMINOPHEN 325 MG TAB PO ONE (22:15)
[2020-11-26 22:34] LABS: BASO # 0.1 10^3/uL (0.0-0.2); BASO % 0.6 % (0.0-1.0); EOS # 0.2 10^3/uL (0.0-0.5); EOS % 2.4 % (0.0-3.0); HEMATOCRIT 44.5 % (36.0-47.0); HEMOGLOBIN 13.7 g/dl (12.0-15.5); LYMPH # 2.6 10^3/uL (1.5-5.0); LYMPH % 29.7 % (24.0-44.0); MEAN CORPUSCULAR HEMOGLOBIN 26.3 pg (27.0-33.0); MEAN CORPUSCULAR HGB CONC 30.8 g/dl (32.0-36.5); MEAN CORPUSCULAR VOLUME 85.6 fl (80.0-96.0); MONO # 0.6 10^3/uL (0.0-0.8); MONO % 6.3 % (2.0-8.0); NEUTROPHILS # 5.4 10^3/uL (1.5-8.5); NEUTROPHILS % 60.8 % (36.0-66.0); PLATELET COUNT, AUTOMATED 317 10^3/uL (150-450); WHITE BLOOD COUNT 8.8 10^3/uL (4.0-10.0)
[2020-11-26 22:51] LABS: INR 0.94; PARTIAL THROMBOPLASTIN TIME 28.4 SECONDS (25.9-37.0); PROTHROMBIN TIME 12.9 SECONDS (12.7-14.5)
[2020-11-26 23:06] LABS: ALBUMIN 3.3 GM/DL (3.2-5.2); ALT/SGPT 20 U/L (12-78); BILIRUBIN,DIRECT < 0.1 MG/DL (0.0-0.2); BILIRUBIN,TOTAL 0.4 MG/DL (0.2-1.0); BLOOD UREA NITROGEN 19 MG/DL (7-18); CALCIUM LEVEL 9.2 MG/DL (8.8-10.2); CARBON DIOXIDE LEVEL 28 MEQ/L (21-32); CHLORIDE LEVEL 103 MEQ/L (98-107); CREATININE FOR GFR 0.92 MG/DL (0.55-1.30); FREE T4 1.03 NG/DL (0.76-1.46); GLOMERULAR FILTRATION RATE > 60.0 (>39); GLUCOSE, FASTING 191 MG/DL (70-100); LIPASE 219 U/L (73-393); POTASSIUM SERUM 4.4 MEQ/L (3.5-5.1); SODIUM LEVEL 137 MEQ/L (136-145); TOTAL PROTEIN 6.6 GM/DL (6.4-8.2)
[2020-11-27 01:17] VITALS: BP 159/72
--- NOTE | 2020-11-27 17:38 | ECGEPIP ---
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
--- NOTE | 2020-11-27 17:41 | ECGEPIP ---
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
== END 2020-11-27 01:26 | disposition home or self-care (01) ==
LOC: M ED 19:41
DX: R07.89 Other chest pain (principal); E11.9 Type 2 diabetes mellitus without complications; I10 Essential (primary) hypertension; E78.5 Hyperlipidemia, unspecified; K21.9 Gastro-esophageal reflux disease without esophagitis; J45.909 Unspecified asthma, uncomplicated; R56.9 Unspecified convulsions; Z79.4 Long term (current) use of insulin; Z79.899 Other long term (current) drug therapy; Z91.89 Other specified personal risk factors, not elsewhere classified

== ENCOUNTER 2020-12-28 16:21 | Emergency (ER) | payer MEDICARE, OTHER ==
[~2020-12-28] VITALS: Ht 149.9 cm; Wt 79.5 kg
--- OUTSIDE RECORDS SUMMARY | 2020-12-28 16:26 | CCD | Continuity of Care Document ---
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 Role Phone Yohan ZAPATA, Rebecca WHYTE [phone] Ishaan Cervantes, Jamison AUTDarrius [phone] Problems Active Problems Provider Date Acquired hallux [...] hx off and on smoking?<1ppd quit 2002 Allergies and adverse reactions Active Allergies Criticality Reaction | Severity Comments Date Tape Unable to assess criticality ele damico ana 02/02/2013 Medications Active Medications SIG Qnty Indications Ordering Provide r Date Actos Unknown Glipizide Unknown Levemir Flexpen Unknown 0 Omeprazole Unknown Indapamide Unknown Calcium 1200 Unknown Pioglitazone HCL Unknown 00 Afluria PF [id number] Unknown 00 Humalog Unknown Immunizations Description No Information Available Vital Signs Date Vital Result Comment 07/13/2014 10:55am Pain Level 0 02/02/2013 2:18pm Height 53 inches 4'5" Weight 150.00 lb BP Systolic 125 mmHg BP Diastolic 65 mmHg Heart Rate 75 /min BMI (Body Mass Index) 37.5 kg/m2 Results Description No Information Available Procedures Date Code Description Status 10/11/2020 52483 Debridement 6-10 Nails Electric Completed 07/26/2020 74857 Debridement 6-10 Nails Electric Completed Medical Devices Description No Information Available Encounters Description No Information Available Assessments Date Code Description Provider 10/11/2020 B35.1 Tinea unguium Ricco Read DPM 10/11/2020 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
--- OUTSIDE RECORDS SUMMARY | 2020-12-28 16:26 | CCD | Continuity of Care Document ---
Author Author Elsy QUIROS M.D. Organization Unknown Address [address] [place] [id number] Phone [phone] Care Team Providers Care [employer] Web Developer Name Role Phone Dilia Cain M.D. AUTM [phone] Problems Active Problems Provider Date Essential hypertension Jamison Quiros M.D. Onset: 2018 Hyperlipidemia Jamison Quiros M.D. Onset: 9 Diabetes mellitus Jamison Quiors M.D. Onset: 9 Chronic obstructive lung disease Jamison Quiros M.D. Ons et: 07/08/2018 Social History Type Date Description Comments Sex Unknown ETOH Use Quit 6 yrs ago Tobacco Use Start: Unknown End: Unknown Patient is a former smoker Cigarettes - Quit 9 1/2 yrs ago Recreational Drug Use Denies Drug Use Smoking Status Reviewed: 10/10/20 Patient is a former smoker Ci garettes - Quit 9 1/2 yrs ago Allergies, Adverse Reactions, Alerts Active Allergies Criticality Reaction | Severity Comments Date Tape Unable to assess criticality rash 07/08/2018 Medications Active Medications SIG Qnty Indications Ordering Provide r Date Lisinopril 5mg Tablets Take One Tablet By Mouth Every Am Jamison Quiros M.D. 11/02/19 21 Jardiance 10mg Tablets 1 by mouth every Am Jamison Quiros M.D. 11/02/19 21 Trulicity 3mg/0.5ML Solution Pen-I nject inject sc Once per Week on Wednesday 2ml Batsheva Quiros M.D. 10/22/2020 Levemir Flextouch 10 0Unit/ML Solution Pen-Inject inject 10 units every Am Jamison Quiros M.D. 10/22/2020 Glucagon Emergency 1mg Kit as directed 1units Jamison Quiros M.D. 06/18/2020 Insulin Syringe-Needle U-100 31G X 1/4" 1 ML Misc use to inject insulin daily as directed 1Box Jamison Patino M.D. 01/24/2020 SM Aspirin Adult Low Strength 81mg Tablets DR Take One Tablet By Mouth Every Am 90taJamison Infante M.D. 11/13/2019 Magnesium Oxide 400mg Tablets Take One Tablet By Mouth Every Am 90tabs Jamison Quiros M.D. 10/23/2019 Unifine Pentips Plus 31G X 5 mm Mi sc use new pen tip to inject daily doses of Levemir, Humalog & Humulin N 300units E11.649 Jamison Quiros M.D. 10/23/2019 Onetouch Delica Plus Lancets Extra Fine 33G Plus 33G Misc Test Two Times A Day as Needed 200units Jamison Patino M.D. 10/23/2019 Onetouch Verio Strips use to test blood sugar three times a day and as needed 300units E11.649 Jamison Quiros M.D. 07/07/2019 Duloxetine HCL 60[address] C[address] Part take one capsule by mouth every am 14caps Jamison Quiros M.D . 05/17/2019 Pantoprazole Sodium 40mg Tablets D R Take One Tablet By Mouth Every Am 90tabs Jamison Quiros M.D. 03/08/2019 Indapamide 1.25mg Tablets Take One Tablet By Mouth Every Am 90tabs Jamison Quiros M.D. 2018 Lovastatin 40mg Tablets take two tablets by mouth every Am 30tabs Jamison Quiros M.D. Potassium Chloride ER 10Meq Capsul es ER Take One Capsule By Mouth Every Am 90caps Batsheva Quiros M.D. Dicyclomine HCL 20mg Tablets 1-2 by mouth three times a day prn Unknown Dok 100mg Capsules 1 by mouth every Am and PM Unknown Amlodipine Besylate 5mg Tablets 1 by mouth every am 90taJamison Gómez M.D. 00/00/00 00 History Medications Trulicity 1.5mg/0.5ML Solution Pen -Inject inject sc Once per Week on Jere Quiros M.D. 10/18/2020 - 10/22/2020 Jardiance 25mg Tablets 1 by mouth every day Jamison Quiros M.D. 10/19/19 21 - 11/01/2020 Immunizations CPT Code Status Date Vaccine Lot # [id number] Given 11/01/2020 Influenza Virus Vaccine, Quadrivalent, Slit Virus, Im Use 3Y & Up [id number] Given 11/06/2019 Influenza Virus Vaccine, Quadrivalent, Slit Virus, Im Use 3Y & Up [id number] [id number] Given 01/04/2019 Influenza Virus Vaccine, Quadrivalent, Slit Virus, Im Use 3Y & Up [id number] Vital Signs Date Vital Result Comment 11/01/2020 11:12am BP Systolic 126 mmHg BP Diastolic 70 mmHg Body Temperature 97.4 F Heart Rate 70 /min Respiratory Rate 14 /min Height 60.5 inches 5'0.50" Weight 170.00 lb Ruth Body Weight 100 lb BMI (Body Mass Index) 32.7 kg/m2 O2 % BldC Oximetry 97 % 10/22/2020 10:53am BP Systolic 140 mmHg BP Diastolic 64 mmHg Body Temperature 97.0 F Heart Rate 72 /min Respiratory Rate 18 /min Height 60.5 inches 5'0.50" Weight 172.00 lb Ruth Body Weight 100 lb BMI (Body Mass Index) 33.0 kg/m2 O2 % BldC Oximetry 98 % Results Test Acquired Date Facility Test Result H/L Range Note Laboratory test finding 11/20/2020 [facility] ([facility]) [phone] Bedside Glucose 208 mg/dL High 83-110 Laboratory test finding 11/20/2020 [facility] ([facility]) [phone] Bedside Glucose 84 mg/dL Normal 83-110 Laboratory test finding 11/20/2020 [facility] ([facility]) [phone] Bedside Glucose 36 mg/dL Critical low 83-110 1 Laboratory test finding 11/20/2020 [facility] ([facility]) [phone] Bedside Glucose 25 mg/dL Critical low 83-110 2 Laboratory test finding 11/20/2020 [facility] ([facility]) [phone] Bedside Glucose 32 mg/dL Critical low 83-110 3 Laboratory test finding 11/20/2020 [facility] ([facility]) [phone] Bedside Glucose 309 mg/dL High 83-110 Hemoglobin A1c 11/01/2020 [facility] [place] Hemoglobin A1c 7.5 % High 4.8-5.6 4 CMP 11/01/2020 [facility]/Inhouse Glu 113 mg/dL High 70 - 110 5 BUN 18 mg/dL 8 - 23 Creat 0.9 mg/dL 0.5 - 1.0 BUN/Creatinine Ratio 20.3 CALC Na 132 mmol/L Low 136 - 145 K 4.2 mmol/L 3.5 - 5.1 CL 94.4 mmol/L Low 98.0 - 107.0 Co2 22.1 mmol/L 22.0 - 29.0 CA 9.4 mg/dL 8.6 - 10.2 TP 6.2 g/dL Low 6.6 - 8.7 Alb 4.3 g/dL 3.4 - 4.8 A/G Ratio 2.3 CALC Globulin 1.9 CALC Alp 126.2 U/L 35 - 129 Alt (SGPT) 9 U/L 0 - 41 Ast (Sgot) 15 U/L 0 - 40 Tbili 0.36 mg/dL 0.0 - 1.2 Osmolality-Calculated 267.9 CALC Anion Gap 20 mmol/L eGFR 75 # Calc 6 eGFR Non-Afr. Turkmen 65 # Calc 7 Lipid Panel 11/01/2020 [facility]Inhouse Chol 131 mg/dL 0 - 200 Trig 76 mg/dL 40 - 200 HDL 57 mg/dL 45 - 65 LDL_C 59 Calc Low 75 - 129 Cho/HDL Ratio 2.3 Calc Laboratory test finding 10/15/2020 [facility] ([facility]) [phone] Bedside Glucose 43 mg/dL Low 83-110 Laboratory test finding 10/15/2020 [facility] ([facility]) [phone] Osmolality Serum 290 MOSM/KG Normal 280-301 Thyroid Stimulating Hormone 2.430 uIU/ML Normal 0.358-3.740 Basic Metabolic Profile 10/15/2020 [facility] ([facility]) [phone] Glucose, Fasting 44 mg/dL Low 70-100 Blood Urea Nitrogen 14 mg/dL Normal 7-18 Creatinine For GFR 0.65 mg/dL Normal 0.55-1.30 Glomerular Filtration Rate > 60.0 Normal >39 8 Sodium Level 142 mEq/L Normal 136-145 Potassium Serum 4.3 mEq/L Normal 3.5-5.1 Chloride Level 111 mEq/L High 98-107 Carbon Dioxide Level 26 mEq/L Normal 21-32 Anion Gap 5 mEq/L Low 8-16 Calcium Level 9.2 mg/dL Normal 8.8-10.2 Liver Profile 10/15/2020 [facility] ([facility]) [phone] Ast/Sgot 12 U/L Normal 7-37 Alt/SGPT 22 U/L Normal 12-78 Alkaline Phosphatase 97 U/L Normal 45-117 Bilirubin,Total 0.2 mg/dL Normal 0.2-1.0 Bilirubin,Direct < 0.1 mg/dL Normal 0.0-0.2 Total Protein 6.9 GM/DL Normal 6.4-8.2 Albumin 3.5 GM/DL Normal 3.2-5.2 Albumin/Globulin Ratio 1.0 Low 1.2-2.2 Cardiac Marker Panel 10/15/2020 [facility]) [phone] CPK Creatine Phosphokinase 43 U/L Normal 26-19 2 CK-MB Value Mass < 1.0 NG/ML Normal <3.6 MB/CK Relative Index 2.33 Normal < Or =4 9 Troponin I < 0.02 NG/ML Normal < 0.10 10 CBC With Differential 10/15/2020 [facility]) [phone] White Blood Count 8.1 10 Normal 4.0-10.0 Red Blood Count 5.45 10 High 4.00-5.40 Hemoglobin 14.1 g/dL Normal 12.0-15.5 Hematocrit 45.9 % Normal 36.0-47.0 Mean Corpuscular Volume 84.2 fl Normal 80.0-96.0 Mean Corpuscular Hemoglobin 25.9 pg Low 27.0-33.0 Mean Corpuscular HGB Conc 30.7 g/dL Low 32.0-36.5 Red Cell Distribution Width 15.6 % High 11.5-14.5 Platelet Count, Automated 350 10 Normal 150-450 Neutrophils % 51.4 % Normal 36.0-66.0 Lymph % 37.8 % Normal 24.0-44.0 [place] % 6.8 % Normal 2.0-8.0 Eos % 3.2 % High 0.0-3.0 Baso % 0.6 % Normal 0.0-1.0 Immature Granulocyte % 0.2 % Normal 0-3.0 Nucleated Red Blood Cell % 0.0 % Normal 0-0 Neutrophils # 4.2 10 Normal 1.5-8.5 Lymph # 3.1 10 Normal 1.5-5.0 [place] # 0.6 10 Normal 0.0-0.8 Eos # 0.3 10 Normal 0.0-0.5 Baso # 0.1 10 Normal 0.0-0.2 Laboratory test [facility] [phone] Bedside Glucose 159 mg/dL High 83-110 Laboratory test finding [facility] [phone] Bedside Glucose 203 mg/dL High 83-110 Istat Chem8+ Panel 10/13/2020 [facility] [phone] iSTAT HCT 40.0 % Normal 38.0-51.0 iSTAT Glucose 179 mg/dL High 70-105 iSTAT Sodium 141 mEq/L Normal 136-145 iSTAT Potassium 3.8 mEq/L Normal 3.5-5.1 iSTAT CA++ 4.2 mg/dL Low 4.5-5.3 iSTAT Chloride 104 mEq/L Normal 98-109 iSTAT Co2 24.0 MM/L Normal 23.0-27.0 iSTAT BUN 28 mg/dL High 8-26 iSTAT Creatinine 0.9 mg/dL Normal 0.6-1.3 Laboratory test finding 10/10/[address] [facility] Glucometer-[facility] 214 mg/dL High 65-109 Basic Metabolic Profile 10/03[facility] [phone] Glucose, Fasting 58 mg/dL Low 70-100 Blood Urea Nitrogen 16 mg/dL Normal 7-18 Creatinine For GFR 0.59 mg/dL Normal 0.55-1.30 Glomerular Filtration Rate > 60.0 Normal >39 1 1 Sodium Level 143 mEq/L Normal 136-145 Potassium Serum 4.0 mEq/L Normal 3.5-5.1 Chloride Level 111 mEq/L High 98-107 Carbon Dioxide Level 30 mEq/L Normal 21-32 Anion Gap 2 mEq/L Low 8-16 Calcium Level 8.9 mg/dL Normal 8.8-10.2 Laboratory test finding 10/03/2020 [facility] (Interface) [phone] Magnesium Level 2.2 mg/dL Normal 1.8-2.4 Thyroid Stimulating Hormone 2.440 uIU/ML Normal 0.358-3.740 Cardiac Marker Panel 10/03/2020 [facility]) [phone] CPK Creatine Phosphokinase 77 U/L Normal 26-19 2 CK-MB Value Mass 1.5 NG/ML Normal <3.6 MB/CK Relative Index 1.95 Normal < Or =4 12 Troponin I < 0.02 NG/ML Normal < 0.10 13 CBC With Differential 10/03/2020 [facility]) [phone] White Blood Count 7.5 10 Normal 4.0-10.0 Red Blood Count 5.02 10 Normal 4.00-5.40 Hemoglobin 13.0 g/dL Normal 12.0-15.5 Hematocrit 43.5 % Normal 36.0-47.0 Mean Corpuscular Volume 86.7 fl Normal 80.0-96.0 Mean Corpuscular Hemoglobin 25.9 pg Low 27.0-33.0 Mean Corpuscular HGB Conc 29.9 g/dL Low 32.0-36.5 Red Cell Distribution Width 15.3 % High 11.5-14.5 Platelet Count, Automated 279 10 Normal 150-450 Neutrophils % 60.9 % Normal 36.0-66.0 Lymph % 30.2 % Normal 24.0-44.0 Bourbon % 6.3 % Normal 2.0-8.0 Eos % 1.6 % Normal 0.0-3.0 Baso % 0.7 % Normal 0.0-1.0 Immature Granulocyte % 0.3 % Normal 0-3.0 Nucleated Red Blood Cell % 0.0 % Normal 0-0 Neutrophils # 4.6 10 Normal 1.5-8.5 Lymph # 2.3 10 Normal 1.5-5.0 Bourbon # 0.5 10 Normal 0.0-0.8 Eos # 0.1 10 Normal 0.0-0.5 Baso # 0.1 10 Normal 0.0-0.2 Laboratory test finding 10/03/2020 [facility] ([facility]) [phone] Bedside Glucose 31 mg/dL Critical low 83-110 Laboratory test finding 10/03/2020 [facility] ([facility]) [phone] Bedside Glucose 77 mg/dL Low 83-110 Laboratory test finding 10/03/2020 [facility] ([facility]) [phone] Bedside Glucose 217 mg/dL High 83-110 Venous Blood Gas 10/03/2020 [facility] ([facility]) [phone] Venous PH 7.375 units Normal 7.330-7.430 Venous Partial Pressure Co2 44.2 mmHg Normal 38.0-50.0 Venous Partial Pressure O2 41.4 mmHg Normal 30.0-50.0 Venous Total Co2 26.6 mEq/L Normal 24.0-28.0 Venous Hco3 25.3 mEq/L Normal 23.0-27.0 Venous Base Excess -0.2 Normal -2.0-2.0 Venous Standard Hco3 23.9 mEq/L Normal Venous O2 Saturation 77.9 % Normal 60.0-80.0 Hemoglobin A1c 09/16/2020 [facility] [place] Hemoglobin A1c 6.5 % High 4.8-5.6 14 CMP 09/16/2020 [facility]house Glu 170 mg/dL High 70 - 110 15 BUN 18 mg/dL 8 - 23 Creat 0.9 mg/dL 0.5 - 1.0 BUN/Creatinine Ratio 21.5 CALC Na 139 mmol/L 136 - 145 K 4.5 mmol/L 3.5 - 5.1 CL 103.6 mmol/L 98.0 - 107.0 Co2 20.9 mmol/L Low 22.0 - 29.0 CA 9.7 mg/dL 8.6 - 10.2 TP 6.4 g/dL Low 6.6 - 8.7 Alb 4.2 g/dL 3.4 - 4.8 A/G Ratio 1.9 CALC Globulin 2.2 CALC Alp 99.2 U/L 35 - 129 Alt (SGPT) 12 U/L 0 - 41 Ast (Sgot) 12 U/L 0 - 40 Tbili 0.16 mg/dL 0.0 - 1.2 Osmolality-Calculated 282.6 CALC Anion Gap 19 mmol/L eGFR 75 # Calc 16 eGFR Non-Afr. Turkmen 65 # Calc 17 CBC 09/16/2020 [facility] WBC 7.5 10E3/uL 4.1 - 10.9 RBC 4.78 10E6/uL 4.20 - 6.30 HGB 12.8 g/dL 12.0 - 18.0 HCT 42.1 % 37.0 - 51.0 MCV 88.1 fL 80.0 - 97.0 MCH 26.8 pg 26.0 - 32.0 MCHC 30.4 g/dL Low 31.0 - 36.0 PLT 325 10E3/uL 140 - 440 RDW-CV 15.6 % High 11.5 - 14.5 Lym% 24.4 % 10.0 - 58.5 Neut% 69.3 % 37.0 - 92.0 MXD% 6.3 % 0.1 - 24.0 Lym# 1.8 10E3/uL 0.6 - 4.1 Neut# 5.2 % 2.0 - 7.8 MXD# 0.5 10E3/uL 0.0 - 1.8 MPV 11.9 fL 9.0 - 13.0 Istat Chem8+ Panel 07/13/2020 [facility] ([facility]) [phone] iSTAT HCT 35.0 % Low 38.0-51.0 iSTAT Glucose 229 mg/dL High 70-105 iSTAT Sodium 138 mEq/L Normal 136-145 iSTAT Potassium 4.3 mEq/L Normal 3.5-5.1 iSTAT CA++ 4.7 mg/dL Normal 4.5-5.3 iSTAT Chloride 100 mEq/L Normal 98-109 iSTAT Co2 31.0 MM/L High 23.0-27.0 iSTAT BUN 26 mg/dL Normal 8-26 iSTAT Creatinine 1.6 mg/dL High 0.6-1.3 Laboratory test finding 07/13/2020 [facility] ([facility]) [phone] Bedside Glucose 177 mg/dL High 83-110 18 Laboratory test finding 07/13/2020 [facility] ([facility]) [phone] Bedside Glucose 245 mg/dL High 83-110 Basic Metabolic Profile 07/05/2020 [facility] ([facility]) [phone] Glucose, Fasting 113 mg/dL High 70-100 Blood Urea Nitrogen 21 mg/dL High 7-18 Creatinine For GFR 0.89 mg/dL Normal 0.55-1.30 Glomerular Filtration Rate > 60.0 Normal >39 1 9 Sodium Level 139 mEq/L Normal 136-145 Potassium Serum 4.4 mEq/L Normal 3.5-5.1 20 Chloride Level 106 mEq/L Normal 98-107 Carbon Dioxide Level 29 mEq/L Normal 21-32 Anion Gap 4 mEq/L Low 8-16 Calcium Level 9.7 mg/dL Normal 8.8-10.2 Blood Culture 07/05/2020 [facility] [phone] Blood Culture No growth after <SEE NOTE> 21 Laboratory test finding 07/05/2020 [facility] (Interface) [phone] Thyroid Stimulating Hormone 7.580 uIU/ML High 0. 358-3.740 Liver Profile 07/05/2020 [facility] [phone] Ast/Sgot 16 U/L Normal 7-37 Alt/SGPT 21 U/L Normal 12-78 Alkaline Phosphatase 89 U/L Normal 45-117 Bilirubin,Total 0.4 mg/dL Normal 0.2-1.0 Bilirubin,Direct < 0.1 mg/dL Normal 0.0-0.2 Total Protein 7.3 GM/DL Normal 6.4-8.2 Albumin 4.0 GM/DL Normal 3.2-5.2 Albumin/Globulin Ratio 1.2 Normal 1.2-2.2 Cardiac Marker Panel 07/05/2020 [facility] ( Interface) [phone] CPK Creatine Phosphokinase 90 U/L Normal 26-19 2 CK-MB Value Mass 1.6 NG/ML Normal <3.6 MB/CK Relative Index 1.78 Normal < Or =4 22 Troponin I < 0.02 NG/ML Normal < 0.10 23 Laboratory test finding 07/05/2020 [facility] ([facility]) [phone] Ammonia 30 uMOL/L Normal <32 Venous Blood Gas 07/05/2020 [facility] [phone] Venous PH 7.328 units Low 7.330-7.430 Venous Partial Pressure Co2 56.7 mmHg High 38.0-50.0 Venous Partial Pressure O2 39.1 mmHg Normal 30.0-50.0 Venous Total Co2 30.8 mEq/L High 24.0-28.0 Venous Hco3 29.1 mEq/L High 23.0-27.0 Venous Base Excess 2.0 Normal -2.0-2.0 Venous Standard Hco3 25.6 mEq/L Normal Venous O2 Saturation 69.2 % Normal 60.0-80.0 CBC With Differential 07/05/2020 [facility] (Interface) [phone] White Blood Count 6.0 10 Normal 4.0-10.0 Red Blood Count 4.57 10 Normal 4.00-5.40 Hemoglobin 12.5 g/dL Normal 12.0-15.5 Hematocrit 41.6 % Normal 36.0-47.0 Mean Corpuscular Volume 91.0 fl Normal 80.0-96.0 Mean Corpuscular Hemoglobin 27.4 pg Normal 27.0-33.0 Mean Corpuscular HGB Conc 30.0 g/dL Low 32.0-36.5 Red Cell Distribution Width 16.0 % High 11.5-14.5 Platelet Count, Automated 272 10 Normal 150-450 Neutrophils % 44.0 % Normal 36.0-66.0 Lymph % 43.0 % Normal 24.0-44.0 Bourbon % 6.5 % Normal 2.0-8.0 Eos % 5.5 % High 0.0-3.0 Baso % 0.7 % Normal 0.0-1.0 Immature Granulocyte % 0.3 % Normal 0-3.0 Nucleated Red Blood Cell % 0.0 % Normal 0-0 Neutrophils # 2.6 10 Normal 1.5-8.5 Lymph # 2.6 10 Normal 1.5-5.0 Bourbon # 0.4 10 Normal 0.0-0.8 Eos # 0.3 10 Normal 0.0-0.5 Baso # 0.0 10 Normal 0.0-0.2 Blood Culture 07/05/2020 [facility] [place]) [phone] Blood Culture No growth after <SEE NOTE> 24 Drug Eval [facility] [phone] Amphetamines Level Urine NEGATIVE Normal Negativ e Barbiturates Urine NEGATIVE Normal Negative Benzodiazepines Urine NEGATIVE Normal Negative Cannabinoids Urine NEGATIVE Normal Negative Cocaine Metabolite Urine NEGATIVE Normal Negative Methadone Urine NEGATIVE Normal Negative Opiates Urine NEGATIVE Normal Negative Phencyclidine Urine NEGATIVE Normal Negative 25 Ua W/ Reflex To Culture 07/05/2020 [facility] (Interface) [phone] Appearance, Urine RFX CLEAR Normal Clear Color, Urine RFX STRAW Normal Yellow PH,Urine RFX 6.0 units Normal 5.0-9.0 Specific [place] Ur Auto RFX 1.006 Normal 1.002-1.035 Protein, Urine Auto RFX NEGATIVE mg/dL Normal Negative Glucose, Urine (Ua) Auto RFX 1+ mg/dL High Negative Ketone, Urine Auto RFX NEGATIVE mg/dL Normal Negative Urobilinogen, Urine Auto RFX 0.2 mg/dL Normal 0.0-2.0 Bilirubin, Urine Auto RFX NEGATIVE Normal Negative Nitrite, Urine Auto RFX NEGATIVE Normal Negative Leukocyte Esterase Ur Auto RFX NEGATIVE Normal Negative Blood, Urine Blood RFX 1+ High Negative WBC, Urine Auto RFX 0 /HPF Normal 0-3 RBC, Urine Auto RFX 3 /HPF Normal 0-3 Bacteria, Urine Auto RFX NEGATIVE Normal Negative Squam Epithelial Cell Ur Aurfx 0 /HPF Normal 0-6 Hyaline Cast, Urine Auto RFX 0 /LPF Normal 0-1 Istat Chem8+ Panel 06/18/2020 [facility] [place]) [phone] iSTAT HCT 40.0 % Normal 38.0-51.0 iSTAT Glucose 201 mg/dL High 70-105 iSTAT Sodium 137 mEq/L Normal 136-145 iSTAT Potassium 4.2 mEq/L Normal 3.5-5.1 iSTAT CA++ 4.7 mg/dL Normal 4.5-5.3 iSTAT Chloride 99 mEq/L Normal 98-109 iSTAT Co2 31.0 MM/L High 23.0-27.0 iSTAT BUN 18 mg/dL Normal 8-26 iSTAT Creatinine 1.0 mg/dL Normal 0.6-1.3 CBC With Differential 06/18/2020 [facility]) [phone] White Blood Count 7.3 10 Normal 4.0-10.0 Red Blood Count 4.46 10 Normal 4.00-5.40 Hemoglobin 12.0 g/dL Normal 12.0-15.5 Hematocrit 39.5 % Normal 36.0-47.0 Mean Corpuscular Volume 88.6 fl Normal 80.0-96.0 Mean Corpuscular Hemoglobin 26.9 pg Low 27.0-33.0 Mean Corpuscular HGB Conc 30.4 g/dL Low 32.0-36.5 Red Cell Distribution Width 16.5 % High 11.5-14.5 Platelet Count, Automated 328 10 Normal 150-450 Neutrophils % 49.9 % Normal 36.0-66.0 Lymph % 38.5 % Normal 24.0-44.0 [place] % 5.8 % Normal 2.0-8.0 Eos % 5.1 % High 0.0-3.0 Baso % 0.3 % Normal 0.0-1.0 Immature Granulocyte % 0.4 % Normal 0-3.0 Nucleated Red Blood Cell % 0.0 % Normal 0-0 Neutrophils # 3.6 10 Normal 1.5-8.5 Lymph # 2.8 10 Normal 1.5-5.0 [place]bon # 0.4 10 Normal 0.0-0.8 Eos # 0.4 10 Normal 0.0-0.5 Baso # 0.0 10 Normal 0.0-0.2 Liver Profile 06/18/2020 [facility] ([facility]) [phone] Ast/Sgot 14 U/L Normal 7-37 Alt/SGPT 22 U/L Normal 12-78 Alkaline Phosphatase 95 U/L Normal 45-117 Bilirubin,Total 0.3 mg/dL Normal 0.2-1.0 Bilirubin,Direct 0.1 mg/dL Normal 0.0-0.2 Total Protein 7.2 GM/DL Normal 6.4-8.2 Albumin 3.9 GM/DL Normal 3.2-5.2 Albumin/Globulin Ratio 1.2 Normal 1.2-2.2 Laboratory test finding 06/18/2020 [facility] ([facility]) [phone] Lipase 311 U/L Normal 73-393 Basic Metabolic Panel (8) 05/24/2020 [facility] [place] Glucose 206 mg/dL High 65-99 BUN 20 mg/dL 8-27 Creatinine 0.94 mg/dL 0.57-1.00 eGFR If NonAfricn Am 62 mL/min/1.73 >59 eGFR If Africn Am 71 mL/min/1.73 >59 BUN/Creatinine Ratio 21 12-28 Sodium 136 mmol/L 134-144 Potassium 4.6 mmol/L 3.5-5.2 Chloride 94 mmol/L Low 96-106 Carbon Dioxide, Total 28 mmol/L 20-29 Calcium 9.6 mg/dL 8.7-10.3 1 Doctor Notified 2 Doctor Notified 3 Doctor Notified 4 Prediabetes: 5.7 - 6.4 Diabetes: >6.4 Glycemic control for adults with diabetes: <7.0 5 CHRONIC KIDNEY DISEASE STAGI NG PER NKF: MALE GFR INTERPRETATION: 20-49 YRS: [...] ADOLESCENTS REPRESENTS INDIVIDUALA AGED 2-19 YEARS EXCLUSIVE. 6 CKD-EPI 7 CKD-EPI 8 Units are mL/min/1.73 m2 Chronic Kidney Disease Staging per NKF: Stage I & II GFR >=60 Normal to Mildly Decreased Stage III GFR 30-59 Moderately Decreased Stage IV GFR 15-29 Severely Decreased Stage V GFR <15 Very Little GFR Left ESRD GFR <15 on [employer] 9 DIAGNOSIS CRITERIA MMB ng/ml Relative Index (RI) NON-AMI < or = 5 N/A GIL ZONE > 5 < or = 4 AMI > 5 > 4 10 Troponin I Reference Interva l for Lola Pirindolata LOCI: 99th Percentile= 0.00-0.045 ng/ml Risk Stratification: <= 0.10 ng/ml Decreased Risk for Adverse Clinical Events. 0.10-1.50 ng/ml Increased Risk for Adv erse Clinical Events. Evaluation of additional criterion and/or repeat testing in 2-6 hours is suggested to rule out myocardial damage. >= 1.50 ng/ml Indicative of Myocardial Injury. 11 Units are mL/min/1.73 m2 Chronic Kidney Disease Staging per NKF: Stage I & II GFR >=60 Normal to Mildly Decreased Stage III GFR 30-59 Moderately Decreased Stage IV GFR 15-29 Severely Decreased Stage V GFR <15 Very Little GFR Left ESRD GFR <15 on [employer] 12 DIAGNOSIS CRITERIA MMB ng/ml Relative Index (RI) NON-AMI < or = 5 N/A GIL ZONE > 5 < or = 4 AMI > 5 > 4 13 Troponin I Reference Interva l for Lola Pirindolata LOCI: 99th Percentile= 0.00-0.045 ng/ml Risk Stratification: <= 0.10 ng/ml Decreased Risk for Adverse Clinical Events. 0.10-1.50 ng/ml Increased Risk for Adv erse Clinical Events. Evaluation of additional criterion and/or repeat testing in 2-6 hours is suggested to rule out myocardial damage. >= 1.50 ng/ml Indicative of Myocardial Injury. 14 Prediabetes: 5.7 - 6.4 Diabetes: >6.4 Glycemic control for adults with diabetes: <7.0 15 NORMAL RANGES Age WBC RBC HGB HCT [...] HCT IS 5% LESS SOURCE FOR DATA: [employer] 1800 OPERATION MANUAL( AUTOMATED BLOOD COUNTS [...] Normal 80 and above >32 mL/min Normal 16 CKD-EPI 17 CKD-EPI 18 Doctor Notified 19 Units are mL/min/1.73 m2 Chronic Kidney Disease Staging per NKF: Stage I & II GFR >=60 Normal to Mildly Decreased Stage III GFR 30-59 Moderately Decreased Stage IV GFR 15-29 Severely Decreased Stage V GFR <15 Very Little GFR Left ESRD GFR <15 on [employer] 20 This specimen has an elevate d potassium level but there is NO visible hemolysis noted. 21 No growth after 72 hours . A ll specimens observed for 5 days. Results final at that time. No growth after 48 hours . All specimens observed for 5 days. Results final at that time. No growth after 24 hours . All specimens observed for 5 days. Results final at that time. NO GROWTH AFTER 5 DAYS 22 DIAGNOSIS CRITERIA MMB ng/ml Relative Index (RI) NON-AMI < or = 5 N/A GIL ZONE > 5 < or = 4 AMI > 5 > 4 23 Troponin I Reference Interva l for Recurve LOCI: 99th Percentile= 0.00-0.045 ng/ml Risk Stratification: <= 0.10 ng/ml Decreased Risk for Adverse Clinical Events. 0.10-1.50 ng/ml Increased Risk for Adv erse Clinical Events. Evaluation of additional criterion and/or repeat testing in 2-6 hours is suggested to rule out myocardial damage. >= 1.50 ng/ml Indicative of Myocardial Injury. 24 No growth after 72 hours . A ll specimens observed for 5 days. Results final at that time. No growth after 48 hours . All specimens observed for 5 days. Results final at that time. No growth after 24 hours . All specimens observed for 5 days. Results final at that time. NO GROWTH AFTER 5 DAYS 25 ALL PRESUMPTIVE POSITIVE FINDINGS ARE UNCONFIRMED THRESHOLD IN NG/ML AMPHETAMINES/METHAMPHET 1000 BARBITURATES 200 BENZODIAZEPINES 200 CANNABINOIDS (THC) 50 COCAINE METABOLITE 300 METHADONE 300 OPIATES 300 PHENCYCLIDINE 25 RESULTS ARE FOR MEDICAL PURPOSES ONLY. ALL URINE SPECIMENS WILL BE SAVED FOR 3 DAYS. IF CONFIRMATION OF A PRESUMPTIVE POSITIVE SCREEN RESULT IS DESIRED, CALL CHEMISTRY ([id number]) AND REQUEST URINE TO BE SENT TO REFERENCE LAB. FOR A LIST OF CLOSELY RELATED COMPOUNDS PLEASE CALL THE LAB. Procedures Date Code Description Status 11/01/2020 53763 Office/Outpatient Established Mo d MDM 30-39 Min Completed 10/22/2020 27770 Office/Outpatient Established Mo d MDM 30-39 Min Completed 10/18/2020 43003 Office/Outpatient Established Mo d MDM 30-39 Min Completed 10/10/2020 98822 Office/Outpatient Established Mo d MDM 30-39 Min Completed 10/10/2020 68503 Capillary Blood Collection Finge r, Heel, Ear Stick Completed 09/16/2020 70427 Office/Outpatient Established Mo d MDM 30-39 Min Completed 07/23/2020 50681 Office/Outpatient Established Mo d MDM 30-39 Min Completed 07/08/2020 26612 Office/Outpatient Established Mo d MDM 30-39 Min Completed 06/18/2020 06679 Office/Outpatient Established Mo d MDM 30-39 Min Completed 05/24/2020 77818 Office/Outpatient Established Mo d MDM 30-39 Min Completed 11/15/2019 [id number] Mammogram Completed Medical Devices Description No Information Available Encounters Type Date Location Provider Dx Diagnosis Office Visit 11/01/2020 10:40a [facility] Jamison Quiros M. D. E11.649 Type 2 diabetes mellitus with hypoglycemia without coma I10 Essential (primary) hyperten stephanie E78.5 Hyperlipidemia, unspecified Z23 Encounter for immunization Office Visit 10/22/2020 11:00a [facility] Jamison Quiros M. D. E11.649 Type 2 diabetes mellitus with hypoglycemia without coma Office Visit 10/18/2020 11:15a [facility] Jamison Quiros M. D. E11.649 Type 2 diabetes mellitus with hypoglycemia without coma Office Visit 10/10/2020 9:30a [facility] Alissa Vides, FAAFP E16.0 Drug-induced hypoglycemia without coma I10 Essential (primary) hyperten stephanie E11.649 Type 2 diabetes mellitus wit h hypoglycemia without coma Office Visit 09/16/2020 2:00p [facility] Jamison Quiros M. D. R10.9 Unspecified abdominal pain Office Visit 07/23/2020 10:20a [facility] Jamison Quiros M. D. E11.649 Type 2 diabetes mellitus with hypoglycemia without coma Office Visit 07/08/2020 11:15a [facility] Jamison Quiros M. D. E11.649 Type 2 diabetes mellitus with hypoglycemia without coma Office Visit 06/18/2020 11:30a [facility] Jamison Quiros M. D. E11.649 Type 2 diabetes mellitus with hypoglycemia without coma F41.9 Anxiety disorder, unspecifie d Office Visit 05/24/2020 2:00p [facility] Jamison Quiros M. D. E11.649 Type 2 diabetes mellitus with hypoglycemia without coma Assessments Date Code Description Provider 11/01/2020 E11.649 Type 2 diabetes mellitus with hy poglycemia without coma Jamison Quiros M.D. 11/01/2020 I10 Essential (primary) hypertension Jamison Quiros M.D. 11/01/2020 E78.5 Hyperlipidemia, unspecified [facility] Jamison antonio M.D. 11/01/2020 Z23 Encounter for immunization Jamison Du M.D. 10/22/2020 E11.649 Type 2 diabetes mellitus with hy poglycemia without coma Jamison Quiros M.D. 10/18/2020 E11.649 Type 2 diabetes mellitus with hy poglycemia without coma Jamison Quiros M.D. 10/10/2020 E16.0 Drug-induced hypoglycemia withou t coma Ganga Cain D.O., [facility] 10/10/2020 I10 Essential (primary) hypertension Ganga Cain D.O., [facility] 10/10/2020 E11.649 Type 2 diabetes mellitus with hy poglycemia without coma Ganga Cain D.O., [facility] 09/16/2020 R10.9 Unspecified abdominal pain Jamison Du M.D. 07/23/2020 E11.649 Type 2 diabetes mellitus with hy poglycemia without coma Jamison Quiros M.D. 07/08/2020 E11.649 Type 2 diabetes mellitus with hy poglycemia without coma Jamison Quiros M.D. 06/18/2020 E11.649 Type 2 diabetes mellitus with hy poglycemia without coma Jamison Quiros M.D. 06/18/2020 F41.9 Anxiety disorder, unspecified [facility] Jamison duran M.D. 05/24/2020 E11.649 Type 2 diabetes mellitus with hy poglycemia without coma Jamison Quiros M.D. Plan of Treatment Future Appointment(s):* 12/11/2020 11:00 am - Jamison Quiros M.D. at [facility] Functional Status Description No Information Available Mental Status Description No Information Available Referrals Refer to Dr Reason for Referral Status Appt Date Dilia Cain M.D. uncontrolled diabetes, sever al hospitalizations, ER visits for hypoglycemia- eval and rx Sent [facility] [address] [address] [phone]
--- OUTSIDE RECORDS SUMMARY | 2020-12-28 16:26 | CCD | Continuity of Care Document ---
Author Author Elsy READ DPDarrius Organization Unknown Address [address] [place] [address], [address] [place] [address] Phone [phone] Care Team Providers Care Supervisor Final Name Role Phone Yohan ZAPATA, Rebecca WHYTE [phone] Ishaan Cervantes, Jamison AUTDarrius [phone] Problems Active Problems Provider Date Acquired hallux [...] Unknown Pioglitazone HCL Unknown 00 Afluria PF [id number] Unknown 00 Humalog Unknown Immunizations Description No Information Available Vital Signs Date Vital Result Comment 07/13/2014 10:55am Pain Level 0 02/02/2013 2:18pm Height 53 inches 4'5" Weight 150.00 lb BP Systolic 125 mmHg BP Diastolic 65 mmHg Heart Rate 75 /min BMI (Body Mass Index) 37.5 kg/m2 Results Description No Information Available Procedures Date Code Description Status 10/11/2020 48346 Debridement 6-10 Nails Electric Completed 07/26/2020 39394 Debridement 6-10 Nails Electric Completed Medical Devices Description No Information Available Encounters Description No Information Available Assessments Date Code Description Provider 10/11/2020 B35.1 Tinea unguium Ricco Read DPM 10/11/2020 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
--- OUTSIDE RECORDS SUMMARY | 2020-12-28 16:26 | CCD | Continuity of Care Document ---
Author Author Elsy QUIROS M.D. Organization Unknown Address [address] [place] [id number] Phone [phone] Care Team Providers Care Master Sheet Clerk Name Role Phone Dilia Cain M.D. AUTM [phone] Problems Active Problems Provider Date Essential hypertension Jamison Quiors M.D. Onset: 2018 Hyperlipidemia Jamison Quiros M.D. [...] Ordering Provide r Date Lisinopril 5mg Tablets take one tablet by mouth every am 90tabs Jamison Quiros M.D. 11/02/19 21 Jardiance 10mg [...] Take One Capsule By Mouth Every Am 90capBatsheva Hernandez M.D. Dicyclomine HCL 20mg Tablets 1-2 by mouth three times a day prn Unknown Dok 100mg Capsules 1 by mouth every Am and PM Unknown Amlodipine Besylate 5mg Tablets 1 by mouth every am 90taJamison Gómez M.D. History Medications Trulicity 1.5mg/0.5ML Solution Pen -Inject inject sc Once per Week on Jere Quiros M.D. 10/18/2020 - 10/22/2020 Jardiance 25mg Tablets 1 by mouth every day Jamison Quiros M.D. 10/19/19 - 11/01/2020 Immunizations CPT Code Status Date Vaccine Lot # [id number] Given 11/01/2020 Influenza Virus Vaccine, Quadrivalent, Slit Virus, Im Use 3Y & Up [id number] Given 11/06/2019 Influenza Virus Vaccine, Quadrivalent, Slit Virus, Im Use 3Y & Up [id number] Given 01/04/2019 Influenza Virus Vaccine, Quadrivalent, Slit Virus, Im Use 3Y & Up [id number] Vital Signs Date Vital Result Comment 11/01/2020 11:12am BP Systolic 126 mmHg BP Diastolic 70 mmHg Body Temperature 97.4 F Heart Rate 70 /min Respiratory Rate 14 /min Height 60.5 inches 5'0.50" Weight 170.00 lb [place] Body Weight 100 lb BMI (Body Mass Index) 32.7 kg/m2 O2 % BldC Oximetry 97 % 10/22/2020 10:53am BP Systolic 140 mmHg BP Diastolic 64 mmHg Body Temperature 97.0 F Heart Rate 72 /min Respiratory Rate 18 /min Height 60.5 inches 5'0.50" Weight 172.00 lb [place] Body Weight 100 lb BMI (Body Mass Index) 33.0 kg/m2 O2 % BldC Oximetry 98 % Results Test Acquired Date Facility Test Result H/L Range Note Laboratory test finding 11/20/2020 [facility] ([facility]) [phone] Bedside Glucose 208 mg/dL High 83-110 Laboratory test finding 11/20/2020 [facility] ([facility]) [phone] Bedside Glucose 84 mg/dL Normal 83-110 Laboratory test finding 11/20/2020 [facility] ([facility]) [phone] Bedside Glucose 36 mg/dL Critical low 83-110 1 Laboratory test finding 11/20/2020 [facility] ([facility]) [phone] Bedside Glucose 25 mg/dL Critical low 83-110 2 Laboratory test finding 11/20/2020 [facility]) [phone] Bedside Glucose 32 mg/dL Critical low 83-110 3 Laboratory test finding 11/20/2020 [facility] ([facility]) [phone] Bedside Glucose 107 mg/dL Normal 83-110 Laboratory test finding 11/20/2020 [facility] ([facility]) [phone] Bedside Glucose 309 mg/dL High 83-110 Hemoglobin [...] eGFR 75 # Calc 6 eGFR Non-Afr. Uzbek 65 # Calc 7 Lipid Panel 11/01/2020 [facility] Chol 131 mg/dL 0 - 200 Trig 76 mg/dL 40 - 200 HDL 57 mg/dL 45 - 65 LDL_C 59 Calc Low 75 - 129 Cho/HDL Ratio 2.3 Calc Laboratory test finding 10/15/2020 [facility] ([facility]) [phone] Bedside Glucose 43 mg/dL Low 83-110 Laboratory test finding 10/15/2020 [facility] ([facility]) [phone] Osmolality Serum 290 MOSM/KG Normal 280-301 Thyroid Stimulating Hormone 2.430 uIU/ML Normal 0.358-3.740 Basic Metabolic Profile 10/15/2020 [facility] (Interface) [phone] Glucose, Fasting 44 mg/dL Low 70-100 Blood [...] 9.2 mg/dL Normal 8.8-10.2 Liver Profile 10/15/2020 [facility] [phone] Ast/Sgot 12 U/L Normal 7-37 Alt/SGPT 22 U/L Normal 12-78 Alkaline Phosphatase 97 U/L Normal 45-117 Bilirubin,Total 0.2 mg/dL Normal 0.2-1.0 Bilirubin,Direct < 0.1 mg/dL Normal 0.0-0.2 Total Protein 6.9 GM/DL Normal 6.4-8.2 Albumin 3.5 GM/DL Normal 3.2-5.2 Albumin/Globulin Ratio 1.0 Low 1.2-2.2 Cardiac Marker Panel 10/15/2020 [facility]) [phone] CPK Creatine Phosphokinase 43 U/L Normal 26-19 2 CK-MB Value Mass < 1.0 NG/ML Normal <3.6 MB/CK Relative Index 2.33 Normal < Or =4 9 Troponin I < 0.02 NG/ML Normal < 0.10 10 CBC With Differential 10/15/2020 [facility]) [phone] White Blood Count 8.1 10 Normal 4.0-10.0 [...] 36.0-66.0 Lymph % 37.8 % Normal 24.0-44.0 [place] % 6.8 % Normal 2.0-8.0 Eos % 3.2 % High 0.0-3.0 Baso % 0.6 % Normal 0.0-1.0 Immature Granulocyte % 0.2 % Normal 0-3.0 Nucleated Red Blood Cell % 0.0 % Normal 0-0 Neutrophils # 4.2 10 Normal 1.5-8.5 Lymph # 3.1 10 Normal 1.5-5.0 [place] # 0.6 10 Normal 0.0-0.8 Eos # 0.3 10 Normal 0.0-0.5 Baso # 0.1 10 Normal 0.0-0.2 [facility] [phone] Bedside Glucose 159 mg/dL High 83-110 Laboratory test finding [facility] [phone] Bedside Glucose 203 mg/dL High 83-110 Istat Chem8+ Panel 10/13/2020 [facility] [phone] iSTAT HCT 40.0 % Normal 38.0-51.0 iSTAT Glucose 179 mg/dL High 70-105 iSTAT Sodium 141 mEq/L Normal 136-145 iSTAT Potassium 3.8 mEq/L Normal 3.5-5.1 iSTAT CA++ 4.2 mg/dL Low 4.5-5.3 iSTAT Chloride 104 mEq/L Normal 98-109 iSTAT Co2 24.0 MM/L Normal 23.0-27.0 iSTAT BUN 28 mg/dL High 8-26 iSTAT Creatinine 0.9 mg/dL Normal 0.6-1.3 Laboratory test finding 10/10/2020 [facility] 214 mg/dL High 65-109 Cardiac Marker Panel 10/03/2020 [facility]) [phone] CPK Creatine Phosphokinase 77 U/L Normal 26-19 2 CK-MB Value Mass 1.5 NG/ML Normal <3.6 MB/CK Relative Index 1.95 Normal < Or =4 11 Troponin I < 0.02 NG/ML Normal < 0.10 12 Laboratory test finding 10/03/2020 [facility] ([facility]) [phone] Magnesium Level 2.2 mg/dL Normal 1.8-2.4 Thyroid Stimulating Hormone 2.440 uIU/ML Normal 0.358-3.740 Basic Metabolic Profile 10/03/2020 [facility]) [phone] Glucose, Fasting 58 mg/dL Low 70-100 Blood Urea Nitrogen 16 mg/dL Normal 7-18 Creatinine For GFR 0.59 mg/dL Normal 0.55-1.30 Glomerular Filtration Rate > 60.0 Normal >39 1 3 Sodium Level 143 mEq/L Normal 136-145 Potassium Serum 4.0 mEq/L Normal 3.5-5.1 Chloride Level 111 mEq/L High 98-107 Carbon Dioxide Level 30 mEq/L Normal 21-32 Anion Gap 2 mEq/L Low 8-16 Calcium Level 8.9 mg/dL Normal 8.8-10.2 CBC With Differential 10/03/2020 [facility]) [phone] White Blood Count 7.5 10 Normal 4.0-10.0 [...] 36.0-66.0 Lymph % 30.2 % Normal 24.0-44.0 [place] % 6.3 % Normal 2.0-8.0 Eos % 1.6 % Normal 0.0-3.0 Baso % 0.7 % Normal 0.0-1.0 Immature Granulocyte % 0.3 % Normal 0-3.0 Nucleated Red Blood Cell % 0.0 % Normal 0-0 Neutrophils # 4.6 10 Normal 1.5-8.5 Lymph # 2.3 10 Normal 1.5-5.0 [place] # 0.5 10 Normal 0.0-0.8 Eos # 0.1 10 Normal 0.0-0.5 Baso # 0.1 10 Normal 0.0-0.2 Laboratory test finding 10/03/2020 [facility] (Interface) [phone] Bedside Glucose 31 mg/dL Critical low 83-110 Laboratory test finding 10/03/2020 [facility] (Interface) [phone] Bedside Glucose 77 mg/dL Low 83-110 Laboratory test finding 10/03/2020 [facility] (Interface) [phone] Bedside Glucose 217 mg/dL High 83-110 Venous Blood Gas 10/03/2020 [facility] (I [facility]) [phone] Venous PH 7.375 units Normal 7.330-7.430 Venous [...] eGFR 75 # Calc 16 eGFR Non-Afr. Uzbek 65 # Calc 17 CBC 09/16/2020 [facility] [...] 9.0 - 13.0 Istat Chem8+ Panel 07/13/2020 [facility] [phone] iSTAT HCT 35.0 % Low 38.0-51.0 iSTAT Glucose 229 mg/dL High 70-105 iSTAT Sodium 138 mEq/L Normal 136-145 iSTAT Potassium 4.3 mEq/L Normal 3.5-5.1 iSTAT CA++ 4.7 mg/dL Normal 4.5-5.3 iSTAT Chloride 100 mEq/L Normal 98-109 iSTAT Co2 31.0 MM/L High 23.0-27.0 iSTAT BUN 26 mg/dL Normal 8-26 iSTAT Creatinine 1.6 mg/dL High 0.6-1.3 Laboratory test finding [facility] [phone] Bedside Glucose 177 mg/dL High 83-110 18 Laboratory test finding [facility] [phone] Bedside Glucose 245 mg/dL High 83-110 Basic Metabolic Profile 07/05/2020 [facility] (Interface) [phone] Glucose, Fasting 113 mg/dL High 70-100 Blood [...] 9.7 mg/dL Normal 8.8-10.2 Blood Culture 07/05/2020 [facility]) [phone] Blood Culture No growth after <SEE NOTE> 21 Laboratory test finding 07/05/2020 [facility] (Interface) [phone] Thyroid Stimulating Hormone 7.580 uIU/ML High 0. 358-3.740 Liver Profile 07/05/2020 [facility] [phone] Ast/Sgot 16 U/L Normal 7-37 Alt/SGPT 21 U/L Normal 12-78 Alkaline Phosphatase 89 U/L Normal 45-117 Bilirubin,Total 0.4 mg/dL Normal 0.2-1.0 Bilirubin,Direct < 0.1 mg/dL Normal 0.0-0.2 Total Protein 7.3 GM/DL Normal 6.4-8.2 Albumin 4.0 GM/DL Normal 3.2-5.2 Albumin/Globulin Ratio 1.2 Normal 1.2-2.2 Cardiac Marker Panel 07/05/2020 [facility] ( Interface) [phone] CPK Creatine Phosphokinase 90 U/L Normal 26-19 2 CK-MB Value Mass 1.6 NG/ML Normal <3.6 MB/CK Relative Index 1.78 Normal < Or =4 22 Troponin I < 0.02 NG/ML Normal < 0.10 23 Laboratory test finding 07/05/2020 [facility] (Interface) [phone] Ammonia 30 uMOL/L Normal <32 Venous Blood Gas 07/05/2020 [facility] (I nterface) [phone] Venous PH 7.328 units Low 7.330-7.430 Venous Partial Pressure Co2 56.7 mmHg High 38.0-50.0 Venous Partial Pressure O2 39.1 mmHg Normal 30.0-50.0 Venous Total Co2 30.8 mEq/L High 24.0-28.0 Venous Hco3 29.1 mEq/L High 23.0-27.0 Venous Base Excess 2.0 Normal -2.0-2.0 Venous Standard Hco3 25.6 mEq/L Normal Venous O2 Saturation 69.2 % Normal 60.0-80.0 CBC With Differential 07/05/2020 [facility] (Interface) [phone] White Blood Count 6.0 10 Normal 4.0-10.0 [...] 36.0-66.0 Lymph % 43.0 % Normal 24.0-44.0 [place] % 6.5 % Normal 2.0-8.0 Eos % 5.5 % High 0.0-3.0 Baso % 0.7 % Normal 0.0-1.0 Immature Granulocyte % 0.3 % Normal 0-3.0 Nucleated Red Blood Cell % 0.0 % Normal 0-0 Neutrophils # 2.6 10 Normal 1.5-8.5 Lymph # 2.6 10 Normal 1.5-5.0 [place] # 0.4 10 Normal 0.0-0.8 Eos # 0.3 10 Normal 0.0-0.5 Baso # 0.0 10 Normal 0.0-0.2 Blood Culture 07/05/2020 [facility]) [phone] Blood Culture No growth after <SEE NOTE> 24 Drug Eval Toxicology ED Only 07/05/2020 [facility] edical (Interface) [phone] Amphetamines Level Urine NEGATIVE Normal Negativ e Barbiturates Urine NEGATIVE Normal Negative Benzodiazepines Urine NEGATIVE Normal Negative Cannabinoids Urine NEGATIVE Normal Negative Cocaine Metabolite Urine NEGATIVE Normal Negative Methadone Urine NEGATIVE Normal Negative Opiates Urine NEGATIVE Normal Negative Phencyclidine Urine NEGATIVE Normal Negative 25 Ua W/ Reflex To Culture 07/05/2020 [facility] (Interface) [phone] Appearance, Urine RFX CLEAR Normal Clear Color, Urine RFX STRAW Normal Yellow PH,Urine RFX 6.0 units Normal 5.0-9.0 Specific [place] Ur Auto RFX 1.006 Normal 1.002-1.035 Protein, [...] /LPF Normal 0-1 Istat Chem8+ Panel 06/18/2020 [facility]) [phone] iSTAT HCT 40.0 % Normal 38.0-51.0 iSTAT Glucose 201 mg/dL High 70-105 iSTAT Sodium 137 mEq/L Normal 136-145 iSTAT Potassium 4.2 mEq/L Normal 3.5-5.1 iSTAT CA++ 4.7 mg/dL Normal 4.5-5.3 iSTAT Chloride 99 mEq/L Normal 98-109 iSTAT Co2 31.0 MM/L High 23.0-27.0 iSTAT BUN 18 mg/dL Normal 8-26 iSTAT Creatinine 1.0 mg/dL Normal 0.6-1.3 CBC With Differential 06/18/2020 [facility]) [phone] White Blood Count 7.3 10 Normal 4.0-10.0 [...] 36.0-66.0 Lymph % 38.5 % Normal 24.0-44.0 [place] % 5.8 % Normal 2.0-8.0 Eos % 5.1 % High 0.0-3.0 Baso % 0.3 % Normal 0.0-1.0 Immature Granulocyte % 0.4 % Normal 0-3.0 Nucleated Red Blood Cell % 0.0 % Normal 0-0 Neutrophils # 3.6 10 Normal 1.5-8.5 Lymph # 2.8 10 Normal 1.5-5.0 [place] # 0.4 10 Normal 0.0-0.8 Eos # 0.4 10 Normal 0.0-0.5 Baso # 0.0 10 Normal 0.0-0.2 Liver Profile 06/18/2020 [facility] (I nterface) [phone] Ast/Sgot 14 U/L Normal 7-37 Alt/SGPT 22 U/L Normal 12-78 Alkaline Phosphatase 95 U/L Normal 45-117 Bilirubin,Total 0.3 mg/dL Normal 0.2-1.0 Bilirubin,Direct 0.1 mg/dL Normal 0.0-0.2 Total Protein 7.2 GM/DL Normal 6.4-8.2 Albumin 3.9 GM/DL Normal 3.2-5.2 Albumin/Globulin Ratio 1.2 Normal 1.2-2.2 Laboratory test finding 06/18/2020 [facility] (Interface) [phone] Lipase 311 U/L Normal 73-393 Basic Metabolic [...] Little GFR Left ESRD GFR <15 on RECORD PRODUCER 9 DIAGNOSIS CRITERIA MMB ng/ml Relative Index (RI) NON-AMI < or = 5 N/A GIL ZONE > 5 < or = 4 AMI > 5 > 4 10 Troponin I Reference Interva l for Siemens Leslie LOCI: 99th Percentile= 0.00-0.045 ng/ml Risk Stratification: <= 0.10 ng/ml Decreased Risk for Adverse Clinical Events. 0.10-1.50 ng/ml Increased Risk for Adv erse Clinical Events. Evaluation of additional criterion and/or repeat testing in 2-6 hours is suggested to rule out myocardial damage. >= 1.50 ng/ml Indicative of Myocardial Injury. 11 DIAGNOSIS CRITERIA MMB ng/ml Relative Index (RI) NON-AMI < or = 5 N/A GIL ZONE > 5 < or = 4 AMI > 5 > 4 12 Troponin I Reference Interva l for Siemens Leslie LOCI: 99th Percentile= 0.00-0.045 ng/ml Risk Stratification: <= 0.10 ng/ml Decreased Risk for Adverse Clinical Events. 0.10-1.50 ng/ml Increased Risk for Adv erse Clinical Events. Evaluation of additional criterion and/or repeat testing in 2-6 hours is suggested to rule out myocardial damage. >= 1.50 ng/ml Indicative of Myocardial Injury. 13 Units are mL/min/1.73 m2 Chronic Kidney Disease Staging per NKF: Stage I & II GFR >=60 Normal to Mildly Decreased Stage III GFR 30-59 Moderately Decreased Stage IV GFR 15-29 Severely Decreased Stage V GFR <15 Very Little GFR Left ESRD GFR <15 on RECORD PRODUCER 14 Prediabetes: 5.7 - 6.4 Diabetes: >6.4 [...] HCT IS 5% LESS SOURCE FOR DATA: [employer] 1800 OPERATION MANUAL( AUTOMATED BLOOD COUNTS [...] Little GFR Left ESRD GFR <15 on RECORD PRODUCER 20 This specimen has an elevate d [...] 23 Troponin I Reference Interva l for listedplaces LOCI: 99th Percentile= 0.00-0.045 ng/ml Risk Stratification: [...] LAB. Procedures Date Code Description Status 11/01/2020 19220 Office/Outpatient Established Mo d MDM 30-39 Min Completed 10/22/2020 09608 Office/Outpatient Established Mo d MDM 30-39 Min Completed 10/18/2020 75829 Office/Outpatient Established Mo d MDM 30-39 Min Completed 10/10/2020 59109 Office/Outpatient Established Mo d MDM 30-39 Min Completed 10/10/2020 40113 Capillary Blood Collection Finge r, Heel, Ear Stick Completed 09/16/2020 87288 Office/Outpatient Established Mo d MDM 30-39 Min Completed 07/23/2020 87059 Office/Outpatient Established Mo d MDM 30-39 Min Completed 07/08/2020 38628 Office/Outpatient Established Mo d MDM 30-39 Min Completed 06/18/2020 03853 Office/Outpatient Established Mo d MDM 30-39 Min Completed 05/24/2020 80780 Office/Outpatient Established Mo d MDM 30-39 Min Completed 11/15/2019 [id number] Mammogram Completed Medical Devices Description No Information Available Encounters Type Date Location Provider Dx Diagnosis Office Visit 11/01/2020 10:40a [place] [facility] Jamison Quiros M. D. E11.649 Type 2 diabetes mellitus with hypoglycemia without coma I10 Essential (primary) hyperten stephanie E78.5 Hyperlipidemia, unspecified Z23 Encounter for immunization Office Visit 10/22/2020 11:00a [place] [facility] Jamison Quiros M. D. E11.649 Type 2 diabetes mellitus with hypoglycemia without coma Office Visit 10/18/2020 11:15a [place] [facility] Jamison Quiros M. D. E11.649 Type 2 diabetes mellitus with hypoglycemia without coma Office Visit 10/10/2020 9:30a [place] Alissa Vides, FAAFP E16.0 Drug-induced hypoglycemia without coma I10 Essential (primary) hyperten stephanie E11.649 Type 2 diabetes mellitus wit h hypoglycemia without coma Office Visit 09/16/2020 2:00p [place] [facility] Jamison Quiros M. D. R10.9 Unspecified abdominal pain Office Visit 07/23/2020 10:20a [place] [facility] Jamison Quiros M. D. E11.649 Type 2 diabetes mellitus with hypoglycemia without coma Office Visit 07/08/2020 11:15a [place] [facility] Jamison Quiros M. D. E11.649 Type 2 diabetes mellitus with hypoglycemia without coma Office Visit 06/18/2020 11:30a [place] [facility] Jamison Quiros M. D. E11.649 Type 2 diabetes mellitus with hypoglycemia without coma F41.9 Anxiety disorder, unspecifie d Office Visit 05/24/2020 2:00p [place] [facility] Jamison Quiros M. D. E11.649 Type 2 diabetes mellitus with hypoglycemia without coma Assessments Date Code Description Provider 11/01/2020 E11.649 Type 2 diabetes mellitus with hy poglycemia without coma Jamison Quiros M.D. 11/01/2020 I10 Essential (primary) hypertension Jamison Quiros M.D. 11/01/2020 E78.5 [facility], [facility]2020 Z23 Encounter for immunization Jamison Du M.D. 10/22/2020 E11.649 Type 2 diabetes mellitus with hy poglycemia without coma Jamison Quiros M.D. 10/18/2020 E11.649 Type 2 diabetes mellitus with hy poglycemia without coma Jamison Quiros M.D. 10/10/2020 E16.0 Drug-induced hypoglycemia withou t coma Ganga Cain D.O., FAA 10/10/2020 I10 Essential (primary) hypertension Ganga Cain D.O., FAAFP 10/10/2020 E11.649 Type 2 diabetes mellitus with hy poglycemia without coma Ganga Cain D.O., FAAFP 09/16/2020 R10.9 Unspecified abdominal pain Jamison Du M.D. 07/23/2020 E11.649 Type 2 diabetes mellitus with hy poglycemia without coma Jamison Quiros M.D. 07/08/2020 E11.649 Type 2 diabetes mellitus with hy poglycemia without coma Jamison Quiros M.D. 06/18/2020 E11.649 Type 2 diabetes mellitus with hy poglycemia without coma Jamison Quiros M.D. 06/18/2020 F41.9 Anxiety disorder, unspecified [facility] Jamison duran M.D. 05/24/2020 E11.649 Type 2 diabetes mellitus with hy poglycemia without coma Jamison Quiros M.D. Plan of Treatment Future Appointment(s):* 12/11/2020 11:00 am - Jamison Quiros M.D. at [place] [facility] Functional Status Description No Information Available Mental Status Description No Information Available Referrals Refer to Reason for Referral Status Appt Date Dilia Cain M.D. uncontrolled diabetes, sever al hospitalizations, ER visits for hypoglycemia- eval and rx [facility] [address], [place] [address] [phone]
--- OUTSIDE RECORDS SUMMARY | 2020-12-28 16:26 | CCD | Continuity of Care Document ---
Author Author Elsy QUIROS M.D. Organization Unknown Address [address] [place] [address] Phone [phone] Care Team Providers Care Vault Mechanic Name Role Phone Dilia Cain M.D. AUTM [phone] Problems Active Problems Provider Date Essential hypertension aJmison Quiros M.D. Onset: 2018 Hyperlipidemia Jamison Quiros [...] a day and as needed 300units E11.649 Jamiosn Quiros M.D. 07/07/2019 Duloxetine HCL 60mg Caps [...] CPT Code Status Date Vaccine Lot # 66811 Given 11/01/2020 Influenza Virus Vaccine, Quadrivalent, Slit Virus, Im Use 3Y & Up [id number] 20763 Given 11/06/2019 Influenza Virus Vaccine, Quadrivalent, Slit Virus, Im Use 3Y & Up [id number] 37478 Given 01/04/2019 Influenza Virus Vaccine, Quadrivalent, Slit Virus, Im Use 3Y & Up [id number] Vital Signs Date Vital Result Comment 11/01/2020 11:12am BP Systolic 126 mmHg BP Diastolic 70 mmHg Body Temperature 97.4 F Heart Rate 70 /min Respiratory Rate 14 /min Height 60.5 inches 5'0.50" Weight 170.00 lb [place] Body Weight 100 lb BMI (Body Mass Index) 32.7 kg/m2 O2 % BldC Oximetry 97 % 10/22/2020 10:53am BP Systolic 140 mmHg BP Diastolic 64 mmHg Body Temperature 97.0 F Heart Rate 72 /min Respiratory Rate 18 /min Height 60.5 inches 5'0.50" Weight 172.00 lb [place] Body Weight 100 lb BMI (Body Mass Index) 33.0 kg/m2 O2 % BldC Oximetry 98 % Results Test Acquired Date Facility Test Result H/L Range Note Laboratory test finding 11/20/2020 [facility] (Interface) [phone] Bedside Glucose 208 mg/dL High 83-110 Laboratory test finding 11/20/2020 [facility] ([facility]) [phone] Bedside Glucose 84 mg/dL Normal 83-110 Laboratory test finding 11/20/2020 [facility] ([facility]) [phone] Bedside Glucose 36 mg/dL Critical low 83-110 1 Laboratory test finding 11/20/2020 [facility] ([facility]) [phone] Bedside Glucose 25 mg/dL Critical low 83-110 2 Laboratory test finding 11/20/2020 [facility] ([facility]) [phone] Bedside Glucose 32 mg/dL Critical low 83-110 3 Laboratory test finding 11/20/2020 [facility] ([facility]) [phone] Bedside Glucose 309 mg/dL High 83-110 Hemoglobin [...] eGFR 75 # Calc 6 eGFR Non-Afr. Welsh 65 # Calc 7 Lipid Panel 11/01/2020 [facility] Chol 131 mg/dL 0 - 200 Trig 76 mg/dL 40 - 200 HDL 57 mg/dL 45 - 65 LDL_C 59 Calc Low 75 - 129 Cho/HDL Ratio 2.3 Calc Laboratory test finding 10/15/2020 [facility] ([facility]) [phone] Bedside Glucose 43 mg/dL Low 83-110 Laboratory test finding 10/15/2020 [facility] ([facility]) [phone] Osmolality Serum 290 MOSM/KG Normal 280-301 Thyroid Stimulating Hormone 2.430 uIU/ML Normal 0.358-3.740 Basic Metabolic Profile 10/15/2020 [facility] ([facility]) [phone] Glucose, Fasting 44 mg/dL Low 70-100 Blood [...] 9.2 mg/dL Normal 8.8-10.2 Liver Profile 10/15/2020 [facility] (I [facility]terface) [phone] Ast/Sgot 12 U/L Normal 7-37 Alt/SGPT 22 U/L Normal 12-78 Alkaline Phosphatase 97 U/L Normal 45-117 Bilirubin,Total 0.2 mg/dL Normal 0.2-1.0 Bilirubin,Direct < 0.1 mg/dL Normal 0.0-0.2 Total Protein 6.9 GM/DL Normal 6.4-8.2 Albumin 3.5 GM/DL Normal 3.2-5.2 Albumin/Globulin Ratio 1.0 Low 1.2-2.2 Cardiac Marker Panel 10/15/2020 [facility]) [phone] CPK Creatine Phosphokinase 43 U/L Normal 26-19 2 CK-MB Value Mass < 1.0 NG/ML Normal <3.6 MB/CK Relative Index 2.33 Normal < Or =4 9 Troponin I < 0.02 NG/ML Normal < 0.10 10 CBC With Differential 10/15/2020 [facility]) [phone] White Blood Count 8.1 10 Normal 4.0-10.0 [...] 36.0-66.0 Lymph % 37.8 % Normal 24.0-44.0 [place] % 6.8 % Normal 2.0-8.0 Eos % 3.2 % High 0.0-3.0 Baso % 0.6 % Normal 0.0-1.0 Immature Granulocyte % 0.2 % Normal 0-3.0 Nucleated Red Blood Cell % 0.0 % Normal 0-0 Neutrophils # 4.2 10 Normal 1.5-8.5 Lymph # 3.1 10 Normal 1.5-5.0 [place] # 0.6 10 Normal 0.0-0.8 Eos # 0.3 10 Normal 0.0-0.5 Baso # 0.1 10 Normal 0.0-0.2 Laboratory test finding [facility] [phone] Bedside Glucose 159 mg/dL High 83-110 Laboratory test finding 10/15/[facility]) [phone] Bedside Glucose 203 mg/dL High 83-110 Istat Chem8+ Panel 10/13/2020 [facility] [phone] iSTAT HCT 40.0 % Normal 38.0-51.0 iSTAT Glucose 179 mg/dL High 70-105 iSTAT Sodium 141 mEq/L Normal 136-145 iSTAT Potassium 3.8 mEq/L Normal 3.5-5.1 iSTAT CA++ 4.2 mg/dL Low 4.5-5.3 iSTAT Chloride 104 mEq/L Normal 98-109 iSTAT Co2 24.0 MM/L Normal 23.0-27.0 iSTAT BUN 28 mg/dL High 8-26 iSTAT Creatinine 0.9 mg/dL Normal 0.6-1.3 Laboratory test finding 10/10/2020 [facility] Glucometer[facility] 214 mg/dL High 65-109 Basic Metabolic Profile 10/03/2020 [facility] [phone] Glucose, Fasting 58 mg/dL Low 70-100 Blood [...] mg/dL Normal 8.8-10.2 Laboratory test finding 10/03/2020 [facility] (Interface) [phone] Magnesium Level 2.2 mg/dL Normal 1.8-2.4 Thyroid Stimulating Hormone 2.440 uIU/ML Normal 0.358-3.740 Cardiac Marker Panel 10/03/2020 [facility]) [phone] CPK Creatine Phosphokinase 77 U/L Normal 26-19 2 CK-MB Value Mass 1.5 NG/ML Normal <3.6 MB/CK Relative Index 1.95 Normal < Or =4 12 Troponin I < 0.02 NG/ML Normal < 0.10 13 CBC With Differential 10/03/2020 [facility]) [phone] White Blood Count 7.5 10 Normal 4.0-10.0 [...] 36.0-66.0 Lymph % 30.2 % Normal 24.0-44.0 [place] % 6.3 % Normal 2.0-8.0 Eos % 1.6 % Normal 0.0-3.0 Baso % 0.7 % Normal 0.0-1.0 Immature Granulocyte % 0.3 % Normal 0-3.0 Nucleated Red Blood Cell % 0.0 % Normal 0-0 Neutrophils # 4.6 10 Normal 1.5-8.5 Lymph # 2.3 10 Normal 1.5-5.0 [place] # 0.5 10 Normal 0.0-0.8 Eos # 0.1 10 Normal 0.0-0.5 Baso # 0.1 10 Normal 0.0-0.2 Laboratory test finding 10/03/2020 [facility] (Interface) [phone] Bedside Glucose 31 mg/dL Critical low 83-110 Laboratory test finding 10/03/2020 [facility] (Interface) [phone] Bedside Glucose 77 mg/dL Low 83-110 Laboratory test finding 10/03/2020 [facility] (Interface) [phone] Bedside Glucose 217 mg/dL High 83-110 Venous Blood Gas 10/03/2020 [facility] (I [facility]terface) [phone] Venous PH 7.375 units Normal 7.330-7.430 Venous [...] eGFR 75 # Calc 16 eGFR Non-Afr. Welsh 65 # Calc 17 CBC 09/16/2020 [facility] [...] 9.0 - 13.0 Istat Chem8+ Panel 07/13/2020 [facility] (I [facility]) [phone] iSTAT HCT 35.0 % Low 38.0-51.0 iSTAT Glucose 229 mg/dL High 70-105 iSTAT Sodium 138 mEq/L Normal 136-145 iSTAT Potassium 4.3 mEq/L Normal 3.5-5.1 iSTAT CA++ 4.7 mg/dL Normal 4.5-5.3 iSTAT Chloride 100 mEq/L Normal 98-109 iSTAT Co2 31.0 MM/L High 23.0-27.0 iSTAT BUN 26 mg/dL Normal 8-26 iSTAT Creatinine 1.6 mg/dL High 0.6-1.3 Laboratory test finding 07/13/2020 [facility] (Interface) [phone] Bedside Glucose 177 mg/dL High 83-110 18 Laboratory test finding 07/13/2020 [facility] (Interface) [phone] Bedside Glucose 245 mg/dL High 83-110 Basic Metabolic Profile 07/05/2020 [facility] (Interface) [phone] Glucose, Fasting 113 mg/dL High 70-100 Blood [...] 9.7 mg/dL Normal 8.8-10.2 Blood Culture 07/05/2020 [facility] [phone] Blood Culture No growth after <SEE NOTE> 21 Laboratory test finding 07/05/2020 [facility] (Interface) [phone] Thyroid Stimulating Hormone 7.580 uIU/ML High 0. 358-3.740 Liver Profile 07/05/2020 [facility] [phone] Ast/Sgot 16 U/L Normal 7-37 Alt/SGPT 21 U/L Normal 12-78 Alkaline Phosphatase 89 U/L Normal 45-117 Bilirubin,Total 0.4 mg/dL Normal 0.2-1.0 Bilirubin,Direct < 0.1 mg/dL Normal 0.0-0.2 Total Protein 7.3 GM/DL Normal 6.4-8.2 Albumin 4.0 GM/DL Normal 3.2-5.2 Albumin/Globulin Ratio 1.2 Normal 1.2-2.2 Cardiac Marker Panel 07/05/2020 [facility] ( Interface) [phone] CPK Creatine Phosphokinase 90 U/L Normal 26-19 2 CK-MB Value Mass 1.6 NG/ML Normal <3.6 MB/CK Relative Index 1.78 Normal < Or =4 22 Troponin I < 0.02 NG/ML Normal < 0.10 23 Laboratory test finding 07/05/2020 [facility] (Interface) [phone] Ammonia 30 uMOL/L Normal <32 Venous Blood Gas 07/05/2020 [facility] [phone] Venous PH 7.328 units Low 7.330-7.430 Venous Partial Pressure Co2 56.7 mmHg High 38.0-50.0 Venous Partial Pressure O2 39.1 mmHg Normal 30.0-50.0 Venous Total Co2 30.8 mEq/L High 24.0-28.0 Venous Hco3 29.1 mEq/L High 23.0-27.0 Venous Base Excess 2.0 Normal -2.0-2.0 Venous Standard Hco3 25.6 mEq/L Normal Venous O2 Saturation 69.2 % Normal 60.0-80.0 CBC With Differential 07/05/2020 [facility] (Interface) [phone] White Blood Count 6.0 10 Normal 4.0-10.0 [...] 36.0-66.0 Lymph % 43.0 % Normal 24.0-44.0 [place] % 6.5 % Normal 2.0-8.0 Eos % 5.5 % High 0.0-3.0 Baso % 0.7 % Normal 0.0-1.0 Immature Granulocyte % 0.3 % Normal 0-3.0 Nucleated Red Blood Cell % 0.0 % Normal 0-0 Neutrophils # 2.6 10 Normal 1.5-8.5 Lymph # 2.6 10 Normal 1.5-5.0 [place] # 0.4 10 Normal 0.0-0.8 Eos # 0.3 10 Normal 0.0-0.5 Baso # 0.0 10 Normal 0.0-0.2 Blood Culture 07/05/2020 [facility]) [phone] Blood Culture No growth after <SEE NOTE> 24 Drug Eval [facility]ology ED Only [facility] [phone] Amphetamines Level Urine NEGATIVE Normal Negativ e Barbiturates Urine NEGATIVE Normal Negative Benzodiazepines Urine NEGATIVE Normal Negative Cannabinoids Urine NEGATIVE Normal Negative Cocaine Metabolite Urine NEGATIVE Normal Negative Methadone Urine NEGATIVE Normal Negative Opiates Urine NEGATIVE Normal Negative Phencyclidine Urine NEGATIVE Normal Negative 25 Ua W/ Reflex To Culture 07/05/2020 [facility] (Interface) [phone] Appearance, Urine RFX CLEAR Normal Clear Color, Urine RFX STRAW Normal Yellow PH,Urine RFX 6.0 units Normal 5.0-9.0 Specific [place] Ur Auto RFX 1.006 Normal 1.002-1.035 Protein, [...] /LPF Normal 0-1 Istat Chem8+ Panel 06/18/2020 [facility]) [phone] iSTAT HCT 40.0 % Normal 38.0-51.0 iSTAT Glucose 201 mg/dL High 70-105 iSTAT Sodium 137 mEq/L Normal 136-145 iSTAT Potassium 4.2 mEq/L Normal 3.5-5.1 iSTAT CA++ 4.7 mg/dL Normal 4.5-5.3 iSTAT Chloride 99 mEq/L Normal 98-109 iSTAT Co2 31.0 MM/L High 23.0-27.0 iSTAT BUN 18 mg/dL Normal 8-26 iSTAT Creatinine 1.0 mg/dL Normal 0.6-1.3 CBC With Differential 06/18/2020 [facility]) [phone] White Blood Count 7.3 10 Normal 4.0-10.0 [...] 36.0-66.0 Lymph % 38.5 % Normal 24.0-44.0 [place] % 5.8 % Normal 2.0-8.0 Eos % 5.1 % High 0.0-3.0 Baso % 0.3 % Normal 0.0-1.0 Immature Granulocyte % 0.4 % Normal 0-3.0 Nucleated Red Blood Cell % 0.0 % Normal 0-0 Neutrophils # 3.6 10 Normal 1.5-8.5 Lymph # 2.8 10 Normal 1.5-5.0 [place] # 0.4 10 Normal 0.0-0.8 Eos # 0.4 10 Normal 0.0-0.5 Baso # 0.0 10 Normal 0.0-0.2 Liver Profile 06/18/2020 [facility] (I nterface) [phone] Ast/Sgot 14 U/L Normal 7-37 Alt/SGPT 22 U/L Normal 12-78 Alkaline Phosphatase 95 U/L Normal 45-117 Bilirubin,Total 0.3 mg/dL Normal 0.2-1.0 Bilirubin,Direct 0.1 mg/dL Normal 0.0-0.2 Total Protein 7.2 GM/DL Normal 6.4-8.2 Albumin 3.9 GM/DL Normal 3.2-5.2 Albumin/Globulin Ratio 1.2 Normal 1.2-2.2 Laboratory test finding 06/18/2020 [facility] (Interface) [phone] Lipase 311 U/L Normal 73-393 Basic Metabolic [...] Little GFR Left ESRD GFR <15 on [employer] 9 DIAGNOSIS CRITERIA MMB ng/ml Relative Index (RI) NON-AMI < or = 5 N/A GIL ZONE > 5 < or = 4 AMI > 5 > 4 10 Troponin I Reference Interva l for No[employer] LOCI: 99th Percentile= 0.00-0.045 ng/ml Risk Stratification: [...] Little GFR Left ESRD GFR <15 on [employer] 12 DIAGNOSIS CRITERIA MMB ng/ml Relative Index (RI) NON-AMI < or = 5 N/A GIL ZONE > 5 < or = 4 AMI > 5 > 4 13 Troponin I Reference Interva l for NoFlota LOCI: 99th Percentile= 0.00-0.045 ng/ml Risk Stratification: [...] HCT IS 5% LESS SOURCE FOR DATA: [employer] 1800 OPERATION MANUAL( AUTOMATED BLOOD COUNTS AND [...] Little GFR Left ESRD GFR <15 on [employer] 20 This specimen has an elevate d [...] 23 Troponin I Reference Interva l for [employer] LOCI: 99th Percentile= 0.00-0.045 ng/ml Risk Stratification: [...] LAB. Procedures Date Code Description Status 11/01/2020 27903 Office/Outpatient Established Mo d MDM 30-39 Min Completed 10/22/2020 76622 Office/Outpatient Established Mo d MDM 30-39 Min Completed 10/18/2020 97832 Office/Outpatient Established Mo d MDM 30-39 Min Completed 10/10/2020 67522 Office/Outpatient Established Mo d MDM 30-39 Min Completed 10/10/2020 28720 Capillary Blood Collection Finge r, Heel, Ear Stick Completed 09/16/2020 27309 Office/Outpatient Established Mo d MDM 30-39 Min Completed 07/23/2020 85376 Office/Outpatient Established Mo d MDM 30-39 Min Completed 07/08/2020 13328 Office/Outpatient Established Mo d MDM 30-39 Min Completed 06/18/2020 20575 Office/Outpatient Established Mo d MDM 30-39 Min Completed 05/24/2020 09623 Office/Outpatient Established Mo d MDM 30-39 Min Completed 11/15/2019 [id number] Mammogram Completed Medical Devices Description No Information Available Encounters Type Date Location Provider Dx Diagnosis Office Visit 11/01/2020 10:40a [facility] Jamison Quiros M. D. E11.649 Type 2 diabetes mellitus with hypoglycemia without coma I10 Essential (primary) hyperten stephanie E78.5 Hyperlipidemia, unspecified Z23 Encounter for immunization Office Visit 10/22/2020 11:00a [facility] Jamison Quiros M. D. E11.649 Type 2 diabetes mellitus with hypoglycemia without coma Office Visit 10/18/2020 11:15a [facility] Jamison Quiros M. D. E11.649 Type 2 diabetes mellitus with hypoglycemia without coma Office Visit 10/10/2020 9:30a [facility] Alissa Vides, FAAFP E16.0 Drug-induced hypoglycemia without coma I10 Essential (primary) hyperten stephanie E11.649 Type 2 diabetes mellitus wit h hypoglycemia without coma Office Visit 09/16/2020 2:00p [facility] Jamison Quiros M. D. R10.9 Unspecified abdominal pain Office Visit 07/23/2020 10:20a [facility] Jamison Quiros M. D. E11.649 Type 2 diabetes mellitus with hypoglycemia without coma Office Visit 07/08/2020 11:15a [facility] Jamison Quiros M. D. E11.649 Type 2 diabetes mellitus with hypoglycemia without coma Office Visit 06/18/2020 11:30a [facility] Jamison Quiros M. D. E11.649 Type 2 diabetes mellitus with hypoglycemia without coma F41.9 Anxiety disorder, unspecifie d Office Visit 05/24/2020 2:00p [facility] Jamison Quiros M. D. E11.649 Type 2 diabetes mellitus with hypoglycemia without coma Assessments Date Code Description Provider 11/01/2020 E11.649 Type 2 diabetes mellitus with hy poglycemia without coma Jamison Quiros M.D. 11/01/2020 I10 Essential (primary) hypertension Jamison Quiros M.D. 11/01/2020 E78.5 Hyperlipidemia, unspecified [facility] Jamison antonio M.D. 11/01/2020 Z23 Encounter for immunization Jamison Du M.D. 10/22/2020 E11.649 Type 2 diabetes mellitus with hy poglycemia without coma Jamison Quiros M.D. 10/18/2020 E11.649 Type 2 diabetes mellitus with hy poglycemia without coma Jamison Quiros M.D. 10/10/2020 E16.0 Drug-induced hypoglycemia withou t coma Ganga Cain D.O., [facility] 10/10/2020 I10 Essential (primary) hypertension Ganga Cain D.O., [facility] 10/10/2020 E11.649 Type 2 diabetes mellitus with hy poglycemia without coma Ganga Cain D.O., [facility] 09/16/2020 R10.9 Unspecified abdominal pain Jamison Du [...] 11:00 am - Jamison Quiros M.D. at [facility] Functional Status Description No Information Available Mental Status Description No Information Available Referrals Refer to Dr Reason for Referral Status Appt Date Dilia Cain M.D. uncontrolled diabetes, sever al hospitalizations, ER visits for hypoglycemia- eval and rx Sent [facility] [address] [address] [phone]
--- OUTSIDE RECORDS SUMMARY | 2020-12-28 16:26 | CCD | Continuity of Care Document ---
Author Author Elsy READ DPDarrius Organization Unknown Address [address] [place] [address], [address] [place] [address] Phone [phone] Care Team Providers Care Hogshead Head Matcher Name Role Phone Yohan ZAPATA, Rebecca WHYTE [phone] Ishaan Cervantes, Jamison AUTDarrius [phone] Problems Active Problems Provider Date Acquired hallux [...] Unknown Pioglitazone HCL Unknown 00 Afluria PF [id number] Unknown 00 Humalog Unknown Immunizations Description No Information Available Vital Signs Date Vital Result Comment 07/13/2014 10:55am Pain Level 0 02/02/2013 2:18pm Height 53 inches 4'5" Weight 150.00 lb BP Systolic 125 mmHg BP Diastolic 65 mmHg Heart Rate 75 /min BMI (Body Mass Index) 37.5 kg/m2 Results Description No Information Available Procedures Date Code Description Status 10/11/2020 92946 Debridement 6-10 Nails Electric Completed 07/26/2020 28547 Debridement 6-10 N[employer] Completed Medical Devices [...] 9:45 am - Ricco Read DPM at [facility] Functional Status Description No Information Available Mental Status Description No Information Available Referrals Description No Information Available
--- OUTSIDE RECORDS SUMMARY | 2020-12-28 16:26 | CCD | Continuity of Care Document ---
Author Author Elsy BARNES MD Organization Unknown Address [address] [facility] [address] [place] [address] Phone [phone] Care Team Providers Care Terminal System Operator Name Role Phone Andre Acevedo M.D. AUTM Jamison Quiros M.D. AUTM [phone] Evan Carrion M.D. AUTM [phone] Jamison Quiros M.D. AUTM [phone] AUTM Unavailable Problems Active Problems Provider Date Essential hypertension Onset: 11/29/2015 Social History Type Date Description Comments Sex Unknown Smokeless Tobacco Never Used Smokeless Tobacco ETOH Use Denies alcohol use NONE FOR 9 YE ARS Recreational Drug Use Denies Drug Use Tobacco Use Start: Unknown End: Unknown Patient is a former smoker 1 PPD FOR 18 YEARS QUIT 2011 Allergies and adverse reactions Active Allergies Criticality Reaction | Severity Comments Date Tape Unable to assess criticality white tape 11/29/2015 Medications Active Medications SIG Qnty Indications Ordering Provide r Date Trulicity 0.75mg/0.5 ML Solution Pen-Inject SC Once A Week Unknown Jardiance 10mg Tablets 1 tab by mouth every day Unknown Levemir Flextouch 10 0Unit/ML Solution Pen-Inject 7 Units 2 Times A Day Unknown Immunizations Description No Information Available Vital Signs Date Vital Result Comment 10/29/2020 11:40am BP Systolic 148 mmHg BP Diastolic 86 mmHg Body Temperature 98.4 F Height 59 inches 4'11" Weight 170.25 lb BMI (Body Mass Index) 34.4 kg/m2 [place] Body Weight 100 lb Weight 77.225 kg BSA (Body Surface Area) 1.72 m2 10/17/2020 1:33pm Body Temperature 97.4 F Results Description No Information Available Procedures Date Code Description Status 10/29/2020 30986 Office/Outpatient Established Lo w MDM 20-29 Min Completed 10/17/2020 20522 Office/Outpatient New Low MDM 30 -44 Minutes Completed 09/12/2020 72910 Office/Outpatient Established Lo w MDM 20-29 Min Completed Medical Devices Description No Information Available Encounters Type Date Location Provider Dx Diagnosis Office Visit 10/29/2020 11:15a [facility] domi Barnes MD E88.1 Lipodystrophy, not elsewhere classified Office Visit 10/17/2020 1:45p [facility] Jamison Ramsey MD S50.12xA Contusion of left forearm, initial encou nter S63.502A Unspecified sprain of left w rist, initial encounter W19.xxxA Unspecified fall, initial en counter Office Visit 09/12/2020 10:45a [facility] Huey Barnes MD E88.1 Lipodystrophy, not elsewhere classified Office Visit 06/20/2020 10:00a [facility] Huey Barnes MD E88.1 Lipodystrophy, not elsewhere classified M79.81 Nontraumatic hematoma of sof t tissue Z48.817 Encntr for surgical aftcr fo l surgery on the skin, subcu Office Visit 06/06/2020 9:30a [facility] Huey Barnes MD E88.1 Lipodystrophy, not elsewhere classified M79.81 Nontraumatic hematoma of sof t tissue Z48.89 Encounter for other specifie d surgical aftercare Assessments Date Code Description Provider 10/29/2020 E88.1 Lipodystrophy, not elsewhere cla ssified Richard Barnes MD 10/17/2020 S50.12xA Contusion of left forearm, initi al encounter Jamison Ramsey MD 10/17/2020 S63.502A Unspecified sprain of left wrist , initial encounter Jamison Ramsey MD 10/17/2020 W19.xxxA Unspecified fall, initial encoun ter Jamison Ramsey MD 09/12/2020 E88.1 Lipodystrophy, not elsewhere cla vel Barnes MD 06/20/2020 E88.1 Lipodystrophy, not elsewhere cla vel Barnes MD 06/20/2020 M79.81 Subcutaneous hematoma Richard Barnes MD 06/20/2020 Z48.817 Encounter for surgic al aftercare following surgery on the skin and subcutaneous tissue Richard Barnes MD 06/06/2020 E88.1 Lipodystrophy, not elsewhere cla vel Barnes MD 06/06/2020 M79.81 Subcutaneous hematoma Richard Barnes MD 06/06/2020 Z48.89 Encounter for other specified shannon rgical aftercare Richard Barnes MD Plan of Treatment 10/29/2020 - Richard Barnes MD* E88.1 Lipodystrophy, not elsewhere classified* Comments:* Patient was booked to me for possible lump underneath her breast but she was actually referring to the same asymmetric enlargement of her adipose tissue over her left upper quadrant area which we have seen previously. She thinks she is having pain from all over around the sides of that area, with movement, with laying down on that. There is no distinct mass or lump or lipoma that I could feel and even on review of imaging studies including previous CT scans. He will essentially be lipectomy or panniculectomy and I think she will still have the same type of discomfort and given her uncontrolled diabetes would be a high risk of more problems with healing and infection and seroma formation from this. I have previously told her that I would not remove it for her. I think this is purely cosmetic and not the source of her musculoskeletal discomfort that she complains of. She could consult plastic surgery to see if they are willing to remove it for her and she would ask her primary doctor for referral although I am not sure if her insurance will pay for that.Follow-up as needed. Functional Status Description No Information Available Mental Status Description No Information Available Referrals Description No Information Available
--- OUTSIDE RECORDS SUMMARY | 2020-12-28 16:26 | CCD | Continuity of Care Document ---
Author Author Elsy READ DPDarrius Organization Unknown Address [address] [place] [address], [address] [place] [address] Phone [phone] Care Team Providers Care Applied Psychology Teacher Name Role Phone Yohan ZAPATA, Rebecca WHYTE [phone] Ishaan Cervantes, Jamison AUTDarrius [phone] Problems Active Problems Provider Date Acquired hallux [...] Unknown Pioglitazone HCL Unknown 00 Afluria PF [id number] Unknown 00 Humalog Unknown Immunizations Description No Information Available Vital Signs Date Vital Result Comment 07/13/2014 10:55am Pain Level 0 02/02/2013 2:18pm Height 53 inches 4'5" Weight 150.00 lb BP Systolic 125 mmHg BP Diastolic 65 mmHg Heart Rate 75 /min BMI (Body Mass Index) 37.5 kg/m2 Results Description No Information Available Procedures Date Code Description Status 12/20/2020 44070 Debridement 6-10 Nails Electric Completed 10/11/2020 72730 Debridement 6-10 Nails Electric Completed 07/26/2020 75167 Debridement 6-10 Nails Electric Completed Medical Devices Description No Information Available Encounters Description No Information Available Assessments Date Code Description Provider 12/20/2020 B35.1 Tinea unguium Ricco Read, SIOBHAN 12/20/2020 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
--- OUTSIDE RECORDS SUMMARY | 2020-12-28 16:27 | CCD | Continuity of Care Document ---
Author Author Elsy QUIROS M.D. Organization Unknown Address [address] [place] [id number] Phone [phone] Care Team Providers Care Palm And Back Forger Name Role Phone Dilia Cain M.D. AUTM [phone] Problems Active Problems Provider Date Essential hypertension [...] CPT Code Status Date Vaccine Lot # [id number] Given 11/01/2020 Influenza Virus Vaccine, Quadrivalent, Slit Virus, Im Use 3Y & Up [id number] 01389 Given 11/06/2019 Influenza Virus Vaccine, Quadrivalent, Slit Virus, Im Use 3Y & Up [id number] 65243 Given 01/04/2019 Influenza Virus Vaccine, Quadrivalent, Slit Virus, Im Use 3Y & Up [id number] Vital Signs Date Vital Result Comment 11/01/2020 11:12am BP Systolic 126 mmHg BP Diastolic 70 mmHg Body Temperature 97.4 F Heart Rate 70 /min Respiratory Rate 14 /min Height 60.5 inches 5'0.50" Weight 170.00 lb Divide Body Weight 100 lb BMI (Body Mass Index) 32.7 kg/m2 O2 % BldC Oximetry 97 % 10/22/2020 10:53am BP Systolic 140 mmHg BP Diastolic 64 mmHg Body Temperature 97.0 F Heart Rate 72 /min Respiratory Rate 18 /min Height 60.5 inches 5'0.50" Weight 172.00 lb Divide Body Weight 100 lb BMI (Body Mass Index) 33.0 kg/m2 O2 % BldC Oximetry 98 % Results Test Acquired Date Facility Test Result H/L Range Note Laboratory test finding 11/20/2020 [facility] ([facility]) [phone] Bedside Glucose 208 mg/dL High 83-110 Laboratory test finding 11/20/2020 [facility] ([facility]) [phone] Bedside Glucose 84 mg/dL Normal 83-110 Laboratory test finding 11/20/2020 [facility] ([facility]) [phone] Bedside Glucose 36 mg/dL Critical low 83-110 1 Laboratory test finding 11/20/2020 [facility] ([facility]) [phone] Bedside Glucose 25 mg/dL Critical low 83-110 2 Laboratory test finding 11/20/2020 [facility] ([facility]) [phone] Bedside Glucose 32 mg/dL Critical low 83-110 3 Laboratory test finding 11/20/2020 [facility] ([facility]) [phone] Bedside Glucose 309 mg/dL High 83-110 Hemoglobin [...] eGFR 75 # Calc 6 eGFR Non-Afr. Zimbabwean 65 # Calc 7 Lipid Panel 11/01/2020 [facility] Chol 131 mg/dL 0 - 200 Trig 76 mg/dL 40 - 200 HDL 57 mg/dL 45 - 65 LDL_C 59 Calc Low 75 - 129 Cho/HDL Ratio 2.3 Calc Laboratory test finding 10/15/2020 [facility] ([facility]) [phone] Bedside Glucose 43 mg/dL Low 83-110 Laboratory test finding 10/15/2020 [facility] ([facility]) [phone] Osmolality Serum 290 MOSM/KG Normal 280-301 Thyroid Stimulating Hormone 2.430 uIU/ML Normal 0.358-3.740 Basic Metabolic Profile 10/15/2020 [facility] (Interface) [phone] Glucose, Fasting 44 mg/dL Low 70-100 Blood [...] 9.2 mg/dL Normal 8.8-10.2 Liver Profile 10/15/2020 [facility] (I nterface) [phone] Ast/Sgot 12 U/L Normal 7-37 Alt/SGPT 22 U/L Normal 12-78 Alkaline Phosphatase 97 U/L Normal 45-117 Bilirubin,Total 0.2 mg/dL Normal 0.2-1.0 Bilirubin,Direct < 0.1 mg/dL Normal 0.0-0.2 Total Protein 6.9 GM/DL Normal 6.4-8.2 Albumin 3.5 GM/DL Normal 3.2-5.2 Albumin/Globulin Ratio 1.0 Low 1.2-2.2 Cardiac Marker Panel 10/15/2020 [facility]) [phone] CPK Creatine Phosphokinase 43 U/L Normal 26-19 2 CK-MB Value Mass < 1.0 NG/ML Normal <3.6 MB/CK Relative Index 2.33 Normal < Or =4 9 Troponin I < 0.02 NG/ML Normal < 0.10 10 CBC With Differential 10/15/2020 [facility]) [phone] White Blood Count 8.1 10 Normal 4.0-10.0 [...] 36.0-66.0 Lymph % 37.8 % Normal 24.0-44.0 [place] % 6.8 % Normal 2.0-8.0 Eos % 3.2 % High 0.0-3.0 Baso % 0.6 % Normal 0.0-1.0 Immature Granulocyte % 0.2 % Normal 0-3.0 Nucleated Red Blood Cell % 0.0 % Normal 0-0 Neutrophils # 4.2 10 Normal 1.5-8.5 Lymph # 3.1 10 Normal 1.5-5.0 [place] # 0.6 10 Normal 0.0-0.8 Eos # 0.3 10 Normal 0.0-0.5 Baso # 0.1 10 Normal 0.0-0.2 Laboratory test finding [facility] [phone] Bedside Glucose 159 mg/dL High 83-110 Laboratory test finding 10/15[facility]) [phone] Bedside Glucose 203 mg/dL High 83-110 Istat Chem8+ Panel 10/13/2020 [facility] [phone] iSTAT HCT 40.0 % Normal 38.0-51.0 iSTAT Glucose 179 mg/dL High 70-105 iSTAT Sodium 141 mEq/L Normal 136-145 iSTAT Potassium 3.8 mEq/L Normal 3.5-5.1 iSTAT CA++ 4.2 mg/dL Low 4.5-5.3 iSTAT Chloride 104 mEq/L Normal 98-109 iSTAT Co2 24.0 MM/L Normal 23.0-27.0 iSTAT BUN 28 mg/dL High 8-26 iSTAT Creatinine 0.9 mg/dL Normal 0.6-1.3 Laboratory test finding 10/10/2020 [facility] Glucometer-[facility] 214 mg/dL High 65-109 Basic Metabolic Profile 10/03/2020 [facility] [phone] Glucose, Fasting 58 mg/dL Low 70-100 Blood [...] mg/dL Normal 8.8-10.2 Laboratory test finding 10/03/2020 [facility] (Interface) [phone] Magnesium Level 2.2 mg/dL Normal 1.8-2.4 Thyroid Stimulating Hormone 2.440 uIU/ML Normal 0.358-3.740 Cardiac Marker Panel 10/03/2020 [facility]) [phone] CPK Creatine Phosphokinase 77 U/L Normal 26-19 2 CK-MB Value Mass 1.5 NG/ML Normal <3.6 MB/CK Relative Index 1.95 Normal < Or =4 12 Troponin I < 0.02 NG/ML Normal < 0.10 13 CBC With Differential 10/03/2020 [facility]) [phone] White Blood Count 7.5 10 Normal 4.0-10.0 [...] 36.0-66.0 Lymph % 30.2 % Normal 24.0-44.0 [place] % 6.3 % Normal 2.0-8.0 Eos % 1.6 % Normal 0.0-3.0 Baso % 0.7 % Normal 0.0-1.0 Immature Granulocyte % 0.3 % Normal 0-3.0 Nucleated Red Blood Cell % 0.0 % Normal 0-0 Neutrophils # 4.6 10 Normal 1.5-8.5 Lymph # 2.3 10 Normal 1.5-5.0 [place] # 0.5 10 Normal 0.0-0.8 Eos # 0.1 10 Normal 0.0-0.5 Baso # 0.1 10 Normal 0.0-0.2 Laboratory test finding 10/03/2020 [facility] (Interface) [phone] Bedside Glucose 31 mg/dL Critical low 83-110 Laboratory test finding 10/03/2020 [facility] (Interface) [phone] Bedside Glucose 77 mg/dL Low 83-110 Laboratory test finding 10/03/2020 [facility] (Interface) [phone] Bedside Glucose 217 mg/dL High 83-110 Venous Blood Gas 10/03/2020 [facility] (I nterface) [phone] Venous PH 7.375 units Normal 7.330-7.430 Venous [...] eGFR 75 # Calc 16 eGFR Non-Afr. Zimbabwean 65 # Calc 17 CBC 09/16/2020 [facility] [...] 9.0 - 13.0 Istat Chem8+ Panel 07/13/2020 [facility] ([facility]) [phone] iSTAT HCT 35.0 % Low 38.0-51.0 iSTAT Glucose 229 mg/dL High 70-105 iSTAT Sodium 138 mEq/L Normal 136-145 iSTAT Potassium 4.3 mEq/L Normal 3.5-5.1 iSTAT CA++ 4.7 mg/dL Normal 4.5-5.3 iSTAT Chloride 100 mEq/L Normal 98-109 iSTAT Co2 31.0 MM/L High 23.0-27.0 iSTAT BUN 26 mg/dL Normal 8-26 iSTAT Creatinine 1.6 mg/dL High 0.6-1.3 Laboratory test finding 07/13/2020 [facility] (Interface) [phone] Bedside Glucose 177 mg/dL High 83-110 18 Laboratory test finding 07/13/2020 [facility] (Interface) [phone] Bedside Glucose 245 mg/dL High 83-110 Basic Metabolic Profile 07/05/2020 [facility] (Interface) [phone] Glucose, Fasting 113 mg/dL High 70-100 Blood [...] 9.7 mg/dL Normal 8.8-10.2 Blood Culture 07/05/2020 [facility] [phone] Blood Culture No growth after <SEE NOTE> 21 Laboratory test finding 07/05/2020 [facility] (Interface) [phone] Thyroid Stimulating Hormone 7.580 uIU/ML High 0. 358-3.740 Liver Profile 07/05/2020 [facility] [phone] Ast/Sgot 16 U/L Normal 7-37 Alt/SGPT 21 U/L Normal 12-78 Alkaline Phosphatase 89 U/L Normal 45-117 Bilirubin,Total 0.4 mg/dL Normal 0.2-1.0 Bilirubin,Direct < 0.1 mg/dL Normal 0.0-0.2 Total Protein 7.3 GM/DL Normal 6.4-8.2 Albumin 4.0 GM/DL Normal 3.2-5.2 Albumin/Globulin Ratio 1.2 Normal 1.2-2.2 Cardiac Marker Panel 07/05/2020 [facility] ( Interface) [phone] CPK Creatine Phosphokinase 90 U/L Normal 26-19 2 CK-MB Value Mass 1.6 NG/ML Normal <3.6 MB/CK Relative Index 1.78 Normal < Or =4 22 Troponin I < 0.02 NG/ML Normal < 0.10 23 Laboratory test finding 07/05/2020 [facility] (Interface) [phone] Ammonia 30 uMOL/L Normal <32 Venous Blood Gas 07/05/2020 [facility] [phone] Venous PH 7.328 units Low 7.330-7.430 Venous Partial Pressure Co2 56.7 mmHg High 38.0-50.0 Venous Partial Pressure O2 39.1 mmHg Normal 30.0-50.0 Venous Total Co2 30.8 mEq/L High 24.0-28.0 Venous Hco3 29.1 mEq/L High 23.0-27.0 Venous Base Excess 2.0 Normal -2.0-2.0 Venous Standard Hco3 25.6 mEq/L Normal Venous O2 Saturation 69.2 % Normal 60.0-80.0 CBC With Differential 07/05/2020 [facility] (Interface) [phone] White Blood Count 6.0 10 Normal 4.0-10.0 [...] 36.0-66.0 Lymph % 43.0 % Normal 24.0-44.0 [place] % 6.5 % Normal 2.0-8.0 Eos % 5.5 % High 0.0-3.0 Baso % 0.7 % Normal 0.0-1.0 Immature Granulocyte % 0.3 % Normal 0-3.0 Nucleated Red Blood Cell % 0.0 % Normal 0-0 Neutrophils # 2.6 10 Normal 1.5-8.5 Lymph # 2.6 10 Normal 1.5-5.0 [place] # 0.4 10 Normal 0.0-0.8 Eos # 0.3 10 Normal 0.0-0.5 Baso # 0.0 10 Normal 0.0-0.2 Blood Culture 07/05/2020 [facility]) [phone] Blood Culture No growth after <SEE NOTE> 24 Drug [facility] [phone] Amphetamines Level Urine NEGATIVE Normal Negativ e Barbiturates Urine NEGATIVE Normal Negative Benzodiazepines Urine NEGATIVE Normal Negative Cannabinoids Urine NEGATIVE Normal Negative Cocaine Metabolite Urine NEGATIVE Normal Negative Methadone Urine NEGATIVE Normal Negative Opiates Urine NEGATIVE Normal Negative Phencyclidine Urine NEGATIVE Normal Negative 25 Ua W/ Reflex To Culture 07/05/2020 [facility] (Interface) [phone] Appearance, Urine RFX CLEAR Normal Clear Color, Urine RFX STRAW Normal Yellow PH,Urine RFX 6.0 units Normal 5.0-9.0 Specific [place] Auto RFX 1.006 Normal 1.002-1.035 Protein, [...] /LPF Normal 0-1 Istat Chem8+ Panel 06/18/2020 [facility]) [phone] iSTAT HCT 40.0 % Normal 38.0-51.0 iSTAT Glucose 201 mg/dL High 70-105 iSTAT Sodium 137 mEq/L Normal 136-145 iSTAT Potassium 4.2 mEq/L Normal 3.5-5.1 iSTAT CA++ 4.7 mg/dL Normal 4.5-5.3 iSTAT Chloride 99 mEq/L Normal 98-109 iSTAT Co2 31.0 MM/L High 23.0-27.0 iSTAT BUN 18 mg/dL Normal 8-26 iSTAT Creatinine 1.0 mg/dL Normal 0.6-1.3 CBC With Differential 06/18/2020 [facility]) [phone] White Blood Count 7.3 10 Normal 4.0-10.0 [...] 36.0-66.0 Lymph % 38.5 % Normal 24.0-44.0 [place] % 5.8 % Normal 2.0-8.0 Eos % 5.1 % High 0.0-3.0 Baso % 0.3 % Normal 0.0-1.0 Immature Granulocyte % 0.4 % Normal 0-3.0 Nucleated Red Blood Cell % 0.0 % Normal 0-0 Neutrophils # 3.6 10 Normal 1.5-8.5 Lymph # 2.8 10 Normal 1.5-5.0 [place] # 0.4 10 Normal 0.0-0.8 Eos # 0.4 10 Normal 0.0-0.5 Baso # 0.0 10 Normal 0.0-0.2 Liver Profile 06/18/2020 [facility] (I nterface) [phone] Ast/Sgot 14 U/L Normal 7-37 Alt/SGPT 22 U/L Normal 12-78 Alkaline Phosphatase 95 U/L Normal 45-117 Bilirubin,Total 0.3 mg/dL Normal 0.2-1.0 Bilirubin,Direct 0.1 mg/dL Normal 0.0-0.2 Total Protein 7.2 GM/DL Normal 6.4-8.2 Albumin 3.9 GM/DL Normal 3.2-5.2 Albumin/Globulin Ratio 1.2 Normal 1.2-2.2 Laboratory test finding 06/18/2020 [facility] (Interface) [phone] Lipase 311 U/L Normal 73-393 Basic Metabolic [...] Little GFR Left ESRD GFR <15 on MARGARINE MAKER 9 DIAGNOSIS CRITERIA MMB ng/ml Relative Index (RI) NON-AMI < or = 5 N/A GIL ZONE > 5 < or = 4 AMI > 5 > 4 10 Troponin I Reference Interva l for [facility] [place] LOCI: 99th Percentile= 0.00-0.045 ng/ml Risk Stratification: [...] Little GFR Left ESRD GFR <15 on MARGARINE MAKER 12 DIAGNOSIS CRITERIA MMB ng/ml Relative Index (RI) NON-AMI < or = 5 N/A GIL ZONE > 5 < or = 4 AMI > 5 > 4 13 Troponin I Reference Interva l for [facility] [place] LOCI: 99th Percentile= 0.00-0.045 ng/ml Risk Stratification: [...] HCT IS 5% LESS SOURCE FOR DATA: Front Up 1800 OPERATION MANUAL( AUTOMATED BLOOD COUNTS AND [...] Little GFR Left ESRD GFR <15 on MARGARINE MAKER 20 This specimen has an elevate d [...] 23 Troponin I Reference Interva l for [place] LOCI: 99th Percentile= 0.00-0.045 ng/ml Risk Stratification: [...] LAB. Procedures Date Code Description Status 11/01/2020 62329 Office/Outpatient Established Mo d MDM 30-39 Min Completed 10/22/2020 17051 Office/Outpatient Established Mo d MDM 30-39 Min Completed 10/18/2020 73949 Office/Outpatient Established Mo d MDM 30-39 Min Completed 10/10/2020 27135 Office/Outpatient Established Mo d MDM 30-39 Min Completed 10/10/2020 75644 Capillary Blood Collection Finge r, Heel, Ear Stick Completed 09/16/2020 17738 Office/Outpatient Established Mo d MDM 30-39 Min Completed 07/23/2020 23126 Office/Outpatient Established Mo d MDM 30-39 Min Completed 07/08/2020 58912 Office/Outpatient Established Mo d MDM 30-39 Min Completed 06/18/2020 53650 Office/Outpatient Established Mo d MDM 30-39 Min Completed 05/24/2020 29199 Office/Outpatient Established Mo d MDM 30-39 Min Completed 11/15/2019 [id number] Mammogram Completed Medical Devices Description No Information Available Encounters Type Date Location Provider Dx Diagnosis Office Visit 11/01/2020 10:40a [facility] Jamison Quiros M. D. E11.649 Type 2 diabetes mellitus with hypoglycemia without coma I10 Essential (primary) hyperten stephanie E78.5 Hyperlipidemia, unspecified Z23 Encounter for immunization Office Visit 10/22/2020 11:00a [facility] Jamison Quiros M. D. E11.649 Type 2 diabetes mellitus with hypoglycemia without coma Office Visit 10/18/2020 11:15a [facility] Jamison Quiros M. D. E11.649 Type 2 diabetes mellitus with hypoglycemia without coma Office Visit 10/10/2020 9:30a [facility] Alissa Vides, FAAFP E16.0 Drug-induced hypoglycemia without coma I10 Essential (primary) hyperten stephanie E11.649 Type 2 diabetes mellitus wit h hypoglycemia without coma Office Visit 09/16/2020 2:00p [facility] Jamison Quiros M. D. R10.9 Unspecified abdominal pain Office Visit 07/23/2020 10:20a [facility] Jamison Quiros M. D. E11.649 Type 2 diabetes mellitus with hypoglycemia without coma Office Visit 07/08/2020 11:15a [facility] Jamison Quiros M. D. E11.649 Type 2 diabetes mellitus with hypoglycemia without coma Office Visit 06/18/2020 11:30a [facility] Jamison Quiros M. D. E11.649 Type 2 diabetes mellitus with hypoglycemia without coma F41.9 Anxiety disorder, unspecifie d Office Visit 05/24/2020 2:00p [facility] Jamison Quiros M. D. E11.649 Type 2 diabetes mellitus with hypoglycemia without coma Assessments Date Code Description Provider 11/01/2020 E11.649 Type 2 diabetes mellitus with hy poglycemia without coma Jamison Quiros M.D. 11/01/2020 I10 Essential (primary) hypertension Jamison Quiros M.D. 11/01/2020 E78.5 Hyperlipidemia, unspecified [facility] Jamison antonio M.D. 11/01/2020 Z23 Encounter for immunization Jamison Du M.D. 10/22/2020 E11.649 Type 2 diabetes mellitus with hy poglycemia without coma Jamison Quiros M.D. 10/18/2020 E11.649 Type 2 diabetes mellitus with hy poglycemia without coma Jamison Quiros M.D. 10/10/2020 E16.0 Drug-induced hypoglycemia withou t coma Ganga Cain D.O., [facility] 10/10/2020 I10 Essential (primary) hypertension Ganga Cain D.O., [facility] 10/10/2020 E11.649 Type 2 diabetes mellitus with hy poglycemia without coma Ganga Cain D.O., [facility] 09/16/2020 R10.9 Unspecified abdominal pain Jamison Du [...] 11:00 am - Jamison Quiros M.D. at [facility] Functional Status Description No Information Available Mental Status Description No Information Available Referrals Refer to Dr Reason for Referral Status Appt Date Dilia Cain M.D. uncontrolled diabetes, sever al hospitalizations, ER visits for hypoglycemia- eval and rx Sent [facility] [address] [address] [phone]
--- OUTSIDE RECORDS SUMMARY | 2020-12-28 16:27 | CCD | Continuity of Care Document ---
Author Author Elsy QUIROS M.D. Organization Unknown Address [address] [place] [id number] Phone [phone] Care Team Providers Care Finish Grinder Name Role Phone Dilia Cain M.D. AUTM [phone] Problems Active Problems Provider Date Essential hypertension [...] Levemir Flextouch 10 0Unit/ML Solution Pen-Inject inject 5 units daily Jamison Quiros M .D. 10/22/2020 Trulicity 3mg/0.5ML Solution Pen-I nject inject sc Once per Week on Wednesday 2ml Batsheva Quiros M.D. 10/22/2020 Jardiance 25mg Tablets 1 by mouth every day Jamison Quiros M.D. 10/19/19 21 Glucagon Emergency 1mg Kit as directed 1units Jamison Quiros M.D. 06/18/2020 Insulin Syringe-Needle U-100 31G X 1/4" 1 ML Misc use to inject insulin daily as directed 1Box Jamison Patino M.D. 01/24/2020 SM Aspirin Adult Low Strength 81mg Tablets DR Take One Tablet By Mouth Every Day 90taJamison Vogt M.D. 11/13/2019 Magnesium Oxide 400mg Tablets Take One Tablet By Mouth Every Day 90taJamison Gómez M.D . 10/23/2019 Unifine Pentips Plus 31G X 5 mm Mi sc use new pen tip to inject daily doses of Levemir, Humalog & Humulin N 300units E11.649 Jamison Quiros M.D. 10/23/2019 Onetouch Delica Plus Lancets Extra Fine 33G Plus 33G Misc Test Two Times A Day as Needed 200units Jamison Patino M.D. 10/23/2019 Onetouch Verio Strips use to test blood sugar tid and as needed 300units E11.649 Jamison Quiros M.D. 07/07/2019 Duloxetine HCL 60[address] C[address] Part take one capsule by mouth every day 14caps Jamison Quiros M. D. 05/17/2019 Pantoprazole Sodium 40mg Tablets D R Take One Tablet By Mouth Every Day 90tabs Jamison Quiros M.D. 03/08/2019 Indapamide 1.25mg Tablets Take One Tablet By Mouth Every Day 90taJamison Gómez M.D. 07/08 Lovastatin 40mg Tablets take two tablets by mouth every day 30tabs Jamison Quiros M.D. Lisinopril 10mg Tablets Take One Tablet By Mouth Every Day 90tabs Jamison Quiros M.D. 00 Potassium Chloride ER 10Meq Capsul es ER Take One Capsule By Mouth Every Day 90caps Jere Quiros M.D. Dicyclomine HCL 20mg Tablets 1-2 by mouth three times a day prn Unknown Dok 100mg Capsules 1 b y mouth twice a day Unknown History Medications Trulicity 1.5mg/0.5ML Solution Pen -Inject inject sc Once per Week on Jere Quiros M.D. 10/18/2020 - 10/22/2020 Immunizations CPT Code Status Date Vaccine Lot # 58523 Given 11/06/2019 Influenza Virus Vaccine, Quadrivalent, Slit Virus, Im Use 3Y & Up [id number] Given 01/04/2019 Influenza Virus Vaccine, Quadrivalent, Slit Virus, Im Use 3Y & Up [id number] Vital Signs Date Vital Result Comment 10/22/2020 10:53am BP Systolic 140 mmHg BP Diastolic 64 mmHg Body Temperature 97.0 F Heart Rate 72 /min Respiratory Rate 18 /min Height 60.5 inches 5'0.50" Weight 172.00 lb [place] Body Weight 100 lb BMI (Body Mass Index) 33.0 kg/m2 O2 % BldC Oximetry 98 % 10/18/2020 11:10am BP Systolic 124 mmHg BP Diastolic 84 mmHg Body Temperature 98.4 F Heart Rate 78 /min Respiratory Rate 18 /min Height 60.5 inches 5'0.50" Weight 173.00 lb [place] Body Weight 100 lb BMI (Body Mass Index) 33.2 kg/m2 O2 % BldC Oximetry 97 % Results Test Acquired Date Facility Test Result H/L Range Note Laboratory test finding 10/15/2020 [facility] ([facility]) [phone] Bedside Glucose 159 mg/dL High 83-110 Laboratory test finding 10/15/2020 [facility] ([facility]) [phone] Bedside Glucose 203 mg/dL High 83-110 Laboratory test finding 10/15/2020 [facility] ([facility]) [phone] Osmolality Serum 290 MOSM/KG Normal 280-301 Thyroid Stimulating Hormone 2.430 uIU/ML Normal 0.358-3.740 Basic Metabolic Profile 10/15/2020 [facility] ([facility]) [phone] Glucose, Fasting 44 mg/dL Low 70-100 Blood Urea Nitrogen 14 mg/dL Normal 7-18 Creatinine For GFR 0.65 mg/dL Normal 0.55-1.30 Glomerular Filtration Rate > 60.0 Normal >39 1 Sodium Level 142 mEq/L Normal 136-145 Potassium Serum 4.3 mEq/L Normal 3.5-5.1 Chloride Level 111 mEq/L High 98-107 Carbon Dioxide Level 26 mEq/L Normal 21-32 Anion Gap 5 mEq/L Low 8-16 Calcium Level 9.2 mg/dL Normal 8.8-10.2 Liver Profile 10/15/2020 [facility] (I [facility]face) [phone] Ast/Sgot 12 U/L Normal 7-37 Alt/SGPT 22 U/L Normal 12-78 Alkaline Phosphatase 97 U/L Normal 45-117 Bilirubin,Total 0.2 mg/dL Normal 0.2-1.0 Bilirubin,Direct < 0.1 mg/dL Normal 0.0-0.2 Total Protein 6.9 GM/DL Normal 6.4-8.2 Albumin 3.5 GM/DL Normal 3.2-5.2 Albumin/Globulin Ratio 1.0 Low 1.2-2.2 Cardiac Marker Panel 10/15/2020 [facility] ( Interface) [phone] CPK Creatine Phosphokinase 43 U/L Normal 26-19 2 CK-MB Value Mass < 1.0 NG/ML Normal <3.6 MB/CK Relative Index 2.33 Normal < Or =4 2 Troponin I < 0.02 NG/ML Normal < 0.10 3 CBC With Differential 10/15/2020 [facility] (Interface) [phone] White Blood Count 8.1 10 Normal 4.0-10.0 [...] 36.0-66.0 Lymph % 37.8 % Normal 24.0-44.0 Harlan % 6.8 % Normal 2.0-8.0 Eos % 3.2 % High 0.0-3.0 Baso % 0.6 % Normal 0.0-1.0 Immature Granulocyte % 0.2 % Normal 0-3.0 Nucleated Red Blood Cell % 0.0 % Normal 0-0 Neutrophils # 4.2 10 Normal 1.5-8.5 Lymph # 3.1 10 Normal 1.5-5.0 Harlan # 0.6 10 Normal 0.0-0.8 Eos # 0.3 10 Normal 0.0-0.5 Baso # 0.1 10 Normal 0.0-0.2 Laboratory test finding [facility] [phone] Bedside Glucose 43 mg/dL Low 83-110 Istat Chem8+ Panel 10/13/2020 [facility]) [phone] iSTAT HCT 40.0 % Normal 38.0-51.0 iSTAT Glucose 179 mg/dL High 70-105 iSTAT Sodium 141 mEq/L Normal 136-145 iSTAT Potassium 3.8 mEq/L Normal 3.5-5.1 iSTAT CA++ 4.2 mg/dL Low 4.5-5.3 iSTAT Chloride 104 mEq/L Normal 98-109 iSTAT Co2 24.0 MM/L Normal 23.0-27.0 iSTAT BUN 28 mg/dL High 8-26 iSTAT Creatinine 0.9 mg/dL Normal 0.6-1.3 Laboratory test finding 10/10/2020 [facility] Glucometer-[facility] 214 mg/dL High 65-109 Laboratory test finding 10/03/2020 [facility]) [phone] Bedside Glucose 217 mg/dL High 83-110 Laboratory test finding 10/03/2020 [facility]) [phone] Bedside Glucose 77 mg/dL Low 83-110 Laboratory test finding 10/03/2020 [facility] ([facility]) [phone] Bedside Glucose 31 mg/dL Critical low 83-110 Venous Blood Gas 10/03/2020 [facility]) [phone] Venous PH 7.375 units Normal 7.330-7.430 Venous Partial Pressure Co2 44.2 mmHg Normal 38.0-50.0 Venous Partial Pressure O2 41.4 mmHg Normal 30.0-50.0 Venous Total Co2 26.6 mEq/L Normal 24.0-28.0 Venous Hco3 25.3 mEq/L Normal 23.0-27.0 Venous Base Excess -0.2 Normal -2.0-2.0 Venous Standard Hco3 23.9 mEq/L Normal Venous O2 Saturation 77.9 % Normal 60.0-80.0 CBC With Differential 10/03/2020 [facility]) [phone] White Blood Count 7.5 10 Normal 4.0-10.0 [...] 36.0-66.0 Lymph % 30.2 % Normal 24.0-44.0 Harlan % 6.3 % Normal 2.0-8.0 Eos % 1.6 % Normal 0.0-3.0 Baso % 0.7 % Normal 0.0-1.0 Immature Granulocyte % 0.3 % Normal 0-3.0 Nucleated Red Blood Cell % 0.0 % Normal 0-0 Neutrophils # 4.6 10 Normal 1.5-8.5 Lymph # 2.3 10 Normal 1.5-5.0 Harlan # 0.5 10 Normal 0.0-0.8 Eos # 0.1 10 Normal 0.0-0.5 Baso # 0.1 10 Normal 0.0-0.2 Cardiac Marker Panel 10/03/2020 [facility]) [phone] CPK Creatine Phosphokinase 77 U/L Normal 26-19 2 CK-MB Value Mass 1.5 NG/ML Normal <3.6 MB/CK Relative Index 1.95 Normal < Or =4 4 Troponin I < 0.02 NG/ML Normal < 0.10 5 Basic Metabolic Profile 10/03/2020 [facility] ([facility]) [phone] Glucose, Fasting 58 mg/dL Low 70-100 Blood Urea Nitrogen 16 mg/dL Normal 7-18 Creatinine For GFR 0.59 mg/dL Normal 0.55-1.30 Glomerular Filtration Rate > 60.0 Normal >39 6 Sodium Level 143 mEq/L Normal 136-145 Potassium Serum 4.0 mEq/L Normal 3.5-5.1 Chloride Level 111 mEq/L High 98-107 Carbon Dioxide Level 30 mEq/L Normal 21-32 Anion Gap 2 mEq/L Low 8-16 Calcium Level 8.9 mg/dL Normal 8.8-10.2 Laboratory test finding 10/03/2020 [facility] (Interface) [phone] Magnesium Level 2.2 mg/dL Normal 1.8-2.4 Thyroid Stimulating Hormone 2.440 uIU/ML Normal 0.358-3.740 Hemoglobin A1c 09/16/2020 [facility] [place] Hemoglobin A1c 6.5 % High 4.8-5.6 7 CMP 09/16/2020 [facility] Glu 170 mg/dL High 70 - 110 8 BUN 18 mg/dL 8 - 23 Creat [...] Gap 19 mmol/L eGFR 75 # Calc 9 eGFR Non-Afr. Peruvian 65 # Calc 10 CBC 09/16/2020 [facility] WBC 7.5 10E3/uL 4.1 [...] 9.0 - 13.0 Istat Chem8+ Panel 07/13/2020 [facility] ([facility]) [phone] iSTAT HCT 35.0 % Low 38.0-51.0 iSTAT Glucose 229 mg/dL High 70-105 iSTAT Sodium 138 mEq/L Normal 136-145 iSTAT Potassium 4.3 mEq/L Normal 3.5-5.1 iSTAT CA++ 4.7 mg/dL Normal 4.5-5.3 iSTAT Chloride 100 mEq/L Normal 98-109 iSTAT Co2 31.0 MM/L High 23.0-27.0 iSTAT BUN 26 mg/dL Normal 8-26 iSTAT Creatinine 1.6 mg/dL High 0.6-1.3 Laboratory test finding 07/13/2020 [facility]) [phone] Bedside Glucose 245 mg/dL High 83-110 Laboratory test finding 07/13/2020 [facility] ([facility]) [phone] Bedside Glucose 177 mg/dL High 83-110 11 Ua W/ Reflex To Culture 07/05/2020 [facility] ([facility]) [phone] Appearance, Urine RFX CLEAR Normal Clear Color, Urine RFX STRAW Normal Yellow PH,Urine RFX 6.0 units Normal 5.0-9.0 Specific [place] Ur Auto RFX 1.006 Normal 1.002-1.035 Protein, [...] Urine Auto RFX 0 /LPF Normal 0-1 Blood Culture 07/05/2020 [facility]) [phone] Blood Culture No growth after <SEE NOTE> 12 Laboratory test finding 07/05/2020 [facility] (Interface) [phone] Thyroid Stimulating Hormone 7.580 uIU/ML High 0. 358-3.740 Basic Metabolic Profile 07/05/2020 [facility] (Interface) [phone] Glucose, Fasting 113 mg/dL High 70-100 Blood Urea Nitrogen 21 mg/dL High 7-18 Creatinine For GFR 0.89 mg/dL Normal 0.55-1.30 Glomerular Filtration Rate > 60.0 Normal >39 1 3 Sodium Level 139 mEq/L Normal 136-145 Potassium Serum 4.4 mEq/L Normal 3.5-5.1 14 Chloride Level 106 mEq/L Normal 98-107 Carbon Dioxide Level 29 mEq/L Normal 21-32 Anion Gap 4 mEq/L Low 8-16 Calcium Level 9.7 mg/dL Normal 8.8-10.2 Liver Profile 07/05/2020 [facility]) [phone] Ast/Sgot 16 U/L Normal 7-37 Alt/SGPT 21 U/L Normal 12-78 Alkaline Phosphatase 89 U/L Normal 45-117 Bilirubin,Total 0.4 mg/dL Normal 0.2-1.0 Bilirubin,Direct < 0.1 mg/dL Normal 0.0-0.2 Total Protein 7.3 GM/DL Normal 6.4-8.2 Albumin 4.0 GM/DL Normal 3.2-5.2 Albumin/Globulin Ratio 1.2 Normal 1.2-2.2 Laboratory test finding 07/05/2020 [facility] (Interface) [phone] Ammonia 30 uMOL/L Normal <32 Drug Eval Toxicology ED [facility] [phone] Amphetamines Level Urine NEGATIVE Normal Negativ e Barbiturates Urine NEGATIVE Normal Negative Benzodiazepines Urine NEGATIVE Normal Negative Cannabinoids Urine NEGATIVE Normal Negative Cocaine Metabolite Urine NEGATIVE Normal Negative Methadone Urine NEGATIVE Normal Negative Opiates Urine NEGATIVE Normal Negative Phencyclidine Urine NEGATIVE Normal Negative 15 Blood Culture 07/05/2020 [facility] [phone] Blood Culture No growth after <SEE NOTE> 16 Venous Blood Gas 07/05/2020 [facility] [phone] Venous PH 7.328 units Low 7.330-7.430 Venous Partial Pressure Co2 56.7 mmHg High 38.0-50.0 Venous Partial Pressure O2 39.1 mmHg Normal 30.0-50.0 Venous Total Co2 30.8 mEq/L High 24.0-28.0 Venous Hco3 29.1 mEq/L High 23.0-27.0 Venous Base Excess 2.0 Normal -2.0-2.0 Venous Standard Hco3 25.6 mEq/L Normal Venous O2 Saturation 69.2 % Normal 60.0-80.0 Cardiac Marker Panel 07/05/2020 [facility] ( Interface) [phone] CPK Creatine Phosphokinase 90 U/L Normal 26-19 2 CK-MB Value Mass 1.6 NG/ML Normal <3.6 MB/CK Relative Index 1.78 Normal < Or =4 17 Troponin I < 0.02 NG/ML Normal < 0.10 18 CBC With Differential 07/05/2020 [facility] (Interface) [phone] White Blood Count 6.0 10 Normal 4.0-10.0 [...] 36.0-66.0 Lymph % 43.0 % Normal 24.0-44.0 Harlan % 6.5 % Normal 2.0-8.0 Eos % 5.5 % High 0.0-3.0 Baso % 0.7 % Normal 0.0-1.0 Immature Granulocyte % 0.3 % Normal 0-3.0 Nucleated Red Blood Cell % 0.0 % Normal 0-0 Neutrophils # 2.6 10 Normal 1.5-8.5 Lymph # 2.6 10 Normal 1.5-5.0 Harlan # 0.4 10 Normal 0.0-0.8 Eos # 0.3 10 Normal 0.0-0.5 Baso # 0.0 10 Normal 0.0-0.2 Istat Chem8+ Panel 06/18/2020 [facility]) [phone] iSTAT HCT 40.0 % Normal 38.0-51.0 iSTAT Glucose 201 mg/dL High 70-105 iSTAT Sodium 137 mEq/L Normal 136-145 iSTAT Potassium 4.2 mEq/L Normal 3.5-5.1 iSTAT CA++ 4.7 mg/dL Normal 4.5-5.3 iSTAT Chloride 99 mEq/L Normal 98-109 iSTAT Co2 31.0 MM/L High 23.0-27.0 iSTAT BUN 18 mg/dL Normal 8-26 iSTAT Creatinine 1.0 mg/dL Normal 0.6-1.3 CBC With Differential 06/18/2020 [facility]) [phone] White Blood Count 7.3 10 Normal 4.0-10.0 [...] 36.0-66.0 Lymph % 38.5 % Normal 24.0-44.0 Harlan % 5.8 % Normal 2.0-8.0 Eos % 5.1 % High 0.0-3.0 Baso % 0.3 % Normal 0.0-1.0 Immature Granulocyte % 0.4 % Normal 0-3.0 Nucleated Red Blood Cell % 0.0 % Normal 0-0 Neutrophils # 3.6 10 Normal 1.5-8.5 Lymph # 2.8 10 Normal 1.5-5.0 Harlan # 0.4 10 Normal 0.0-0.8 Eos # 0.4 10 Normal 0.0-0.5 Baso # 0.0 10 Normal 0.0-0.2 Liver Profile 06/18/2020 [facility] [phone] Ast/Sgot 14 U/L Normal 7-37 Alt/SGPT 22 U/L Normal 12-78 Alkaline Phosphatase 95 U/L Normal 45-117 Bilirubin,Total 0.3 mg/dL Normal 0.2-1.0 Bilirubin,Direct 0.1 mg/dL Normal 0.0-0.2 Total Protein 7.2 GM/DL Normal 6.4-8.2 Albumin 3.9 GM/DL Normal 3.2-5.2 Albumin/Globulin Ratio 1.2 Normal 1.2-2.2 Laboratory test finding 06/18/2020 [facility] (Interface) [phone] Lipase 311 U/L Normal 73-393 Basic Metabolic [...] 28 mmol/L 20-29 Calcium 9.6 mg/dL 8.7-10.3 Laboratory test finding 05/17/2020 [facility] (Interface) [phone] Bedside Glucose 149 mg/dL High 83-110 Laboratory test finding 05/17/2020 [facility] (Interface) [phone] iSTAT Troponin 0.01 NG/ML Normal 0.00-0.08 Istat Chem8+ Panel 05/17/2020 [facility] ([facility]) [phone] iSTAT HCT 51.0 % Normal 38.0-51.0 iSTAT Glucose 81 mg/dL Normal 70-105 iSTAT Sodium 140 mEq/L Normal 136-145 iSTAT Potassium 3.8 mEq/L Normal 3.5-5.1 iSTAT CA++ 5.2 mg/dL Normal 4.5-5.3 iSTAT Chloride 99 mEq/L Normal 98-109 iSTAT Co2 32.0 MM/L High 23.0-27.0 iSTAT BUN 33 mg/dL High 8-26 iSTAT Creatinine 1.3 mg/dL Normal 0.6-1.3 CBC With Differential 05/17/2020 [facility] (Interface) [phone] White Blood Count 13.1 10 High 4.0-10.0 Red Blood Count 5.50 10 High 4.00-5.40 Hemoglobin 14.6 g/dL Normal 12.0-15.5 Hematocrit 48.9 % High 36.0-47.0 Mean Corpuscular Volume 88.9 fl Normal 80.0-96.0 Mean Corpuscular Hemoglobin 26.5 pg Low 27.0-33.0 Mean Corpuscular HGB Conc 29.9 g/dL Low 32.0-36.5 Red Cell Distribution Width 19.8 % High 11.5-14.5 Platelet Count, Automated 340 10 Normal 150-450 Neutrophils % 88.7 % High 36.0-66.0 Lymph % 6.5 % Low 24.0-44.0 Harlan % 3.8 % Normal 2.0-8.0 Eos % 0.3 % Normal 0.0-3.0 Baso % 0.2 % Normal 0.0-1.0 Immature Granulocyte % 0.5 % Normal 0-3.0 Nucleated Red Blood Cell % 0.0 % Normal 0-0 Neutrophils # 11.6 10 High 1.5-8.5 Lymph # 0.9 10 Low 1.5-5.0 Harlan # 0.5 10 Normal 0.0-0.8 Eos # 0.0 10 Normal 0.0-0.5 Baso # 0.0 10 Normal 0.0-0.2 Liver Profile 05/17/2020 [facility] [phone] Ast/Sgot 55 U/L High 7-37 Alt/SGPT 24 U/L Normal 12-78 Alkaline Phosphatase 100 U/L Normal 45-117 Bilirubin,Total 0.3 mg/dL Normal 0.2-1.0 Bilirubin,Direct < 0.1 mg/dL Normal 0.0-0.2 Total Protein 9.0 GM/DL High 6.4-8.2 Albumin 4.6 GM/DL Normal 3.2-5.2 Albumin/Globulin Ratio 1.0 Low 1.2-2.2 Basic Metabolic Profile 05/17/2020 [facility] (Interface) [phone] Glucose, Fasting 78 mg/dL Normal 70-100 Blood Urea Nitrogen 27 mg/dL High 7-18 Creatinine For GFR 1.31 mg/dL High 0.55-1.30 Glomerular Filtration Rate 42.7 Normal >39 1 9 Sodium Level 135 mEq/L Low 136-145 Potassium Serum 5.3 mEq/L High 3.5-5.1 20 Chloride Level 102 mEq/L Normal 98-107 Carbon Dioxide Level 29 mEq/L Normal 21-32 Anion Gap 4 mEq/L Low 8-16 Calcium Level 10.1 mg/dL Normal 8.8-10.2 Laboratory test finding 05/17/2020 [facility] (Interface) [phone] Thyroid Stimulating Hormone 3.770 uIU/ML High 0. 358-3.740 Laboratory test finding 05/10/2020 [facility] (Interface) [phone] Bedside Glucose 149 mg/dL High 83-110 Laboratory test finding 05/10/2020 [facility] (Interface) [phone] Bedside Glucose 140 mg/dL High 83-110 1 Units are mL/min/1.73 m2 Chronic Kidney Disease Staging per NKF: Stage I & II GFR >=60 Normal to Mildly Decreased Stage III GFR 30-59 Moderately Decreased Stage IV GFR 15-29 Severely Decreased Stage V GFR <15 Very Little GFR Left ESRD GFR <15 on PLUMBING INSTRUCTOR 2 DIAGNOSIS CRITERIA MMB ng/ml Relative Index (RI) NON-AMI < or = 5 N/A GIL ZONE > 5 < or = 4 AMI > 5 > 4 3 Troponin I Reference Interva l for [employer] LOCI: 99th Percentile= 0.00-0.045 ng/ml Risk Stratification: <= 0.10 ng/ml Decreased Risk for Adverse Clinical Events. 0.10-1.50 ng/ml Increased Risk for Adv erse Clinical Events. Evaluation of additional criterion and/or repeat testing in 2-6 hours is suggested to rule out myocardial damage. >= 1.50 ng/ml Indicative of Myocardial Injury. 4 DIAGNOSIS CRITERIA MMB ng/ml Relative Index (RI) NON-AMI < or = 5 N/A GIL ZONE > 5 < or = 4 AMI > 5 > 4 5 Troponin I Reference Interva l for [employer] LOCI: 99th Percentile= 0.00-0.045 ng/ml Risk Stratification: <= 0.10 ng/ml Decreased Risk for Adverse Clinical Events. 0.10-1.50 ng/ml Increased Risk for Adv erse Clinical Events. Evaluation of additional criterion and/or repeat testing in 2-6 hours is suggested to rule out myocardial damage. >= 1.50 ng/ml Indicative of Myocardial Injury. 6 Units are mL/min/1.73 m2 Chronic Kidney Disease Staging per NKF: Stage I & II GFR >=60 Normal to Mildly Decreased Stage III GFR 30-59 Moderately Decreased Stage IV GFR 15-29 Severely Decreased Stage V GFR <15 Very Little GFR Left ESRD GFR <15 on PLUMBING INSTRUCTOR 7 Prediabetes: 5.7 - 6.4 Diabetes: >6.4 Glycemic control for adults with diabetes: <7.0 8 NORMAL RANGES Age WBC RBC HGB HCT [...] HCT IS 5% LESS SOURCE FOR DATA: INMAN DYN 1800 OPERATION MANUAL( AUTOMATED BLOOD COUNTS [...] Normal 80 and above >32 mL/min Normal 9 CKD-EPI 10 CKD-EPI 11 Doctor Notified 12 No growth after 72 hours . A ll specimens observed for 5 days. Results final at that time. No growth after 48 hours . All specimens observed for 5 days. Results final at that time. No growth after 24 hours . All specimens observed for 5 days. Results final at that time. NO GROWTH AFTER 5 DAYS 13 Units are mL/min/1.73 m2 Chronic Kidney Disease Staging per NKF: Stage I & II GFR >=60 Normal to Mildly Decreased Stage III GFR 30-59 Moderately Decreased Stage IV GFR 15-29 Severely Decreased Stage V GFR <15 Very Little GFR Left ESRD GFR <15 on PLUMBING INSTRUCTOR 14 This specimen has an elevate d potassium level but there is NO visible hemolysis noted. 15 ALL PRESUMPTIVE POSITIVE FINDINGS ARE UNCONFIRMED THRESHOLD [...] CLOSELY RELATED COMPOUNDS PLEASE CALL THE LAB. 16 No growth after 72 hours . A ll specimens observed for 5 days. Results final at that time. No growth after 48 hours . All specimens observed for 5 days. Results final at that time. No growth after 24 hours . All specimens observed for 5 days. Results final at that time. NO GROWTH AFTER 5 DAYS 17 DIAGNOSIS CRITERIA MMB ng/ml Relative Index (RI) NON-AMI < or = 5 N/A GIL ZONE > 5 < or = 4 AMI > 5 > 4 18 Troponin I Reference Interva l for [employer] LOCI: 99th Percentile= 0.00-0.045 ng/ml Risk Stratification: <= 0.10 ng/ml Decreased Risk for Adverse Clinical Events. 0.10-1.50 ng/ml Increased Risk for Adv erse Clinical Events. Evaluation of additional criterion and/or repeat testing in 2-6 hours is suggested to rule out myocardial damage. >= 1.50 ng/ml Indicative of Myocardial Injury. 19 Units are mL/min/1.73 m2 Chronic Kidney Disease Staging per NKF: Stage I & II GFR >=60 Normal to Mildly Decreased Stage III GFR 30-59 Moderately Decreased Stage IV GFR 15-29 Severely Decreased Stage V GFR <15 Very Little GFR Left ESRD GFR <15 on PLUMBING INSTRUCTOR 20 Testing was performed on a h emolysed specimen. Suggest recollection of specimen for more accurate test results. Procedures Date Code Description Status 11/01/2020 83704 Office/Outpatient Established Mo d MDM 30-39 Min Completed 10/22/2020 26420 Office/Outpatient Established Mo d MDM 30-39 Min Completed 10/18/2020 49435 Office/Outpatient Established Mo d MDM 30-39 Min Completed 10/10/2020 17491 Office/Outpatient Established Mo d MDM 30-39 Min Completed 10/10/2020 49799 Capillary Blood Collection Finge r, Heel, Ear Stick Completed 09/16/2020 57757 Office/Outpatient Established Mo d MDM 30-39 Min Completed 07/23/2020 92908 Office/Outpatient Established Mo d MDM 30-39 Min Completed 07/08/2020 63778 Office/Outpatient Established Mo d MDM 30-39 Min Completed 06/18/2020 00321 Office/Outpatient Established Mo d MDM 30-39 Min Completed 05/24/2020 25585 Office/Outpatient Established Mo d MDM 30-39 Min Completed 05/03/2020 45408 Office/Outpatient Established Mo d MDM 30-39 Min Completed 11/15/2019 [id number] Mammogram Completed Medical Devices Description No Information Available Encounters Type Date Location Provider Dx Diagnosis Office Visit 11/01/2020 10:40a [facility] Jamison Quiros M. D. E11.649 Type 2 diabetes mellitus with hypoglycemia without coma I10 Essential (primary) hyperten stephanie E78.5 Hyperlipidemia, unspecified Office Visit 10/22/2020 11:00a [facility] Jamison Quiros M. D. E11.649 Type 2 diabetes mellitus with hypoglycemia without coma Office Visit 10/18/2020 11:15a [facility] Jamison Quiros M. D. E11.649 Type 2 diabetes mellitus with hypoglycemia without coma Office Visit 10/10/2020 9:30a [facility] Alissa Vides, FAAFP E16.0 Drug-induced hypoglycemia without coma I10 Essential (primary) hyperten stephanie E11.649 Type 2 diabetes mellitus wit h hypoglycemia without coma Office Visit 09/16/2020 2:00p [facility] Jamison Quiros M. D. R10.9 Unspecified abdominal pain Office Visit 07/23/2020 10:20a [facility] Jamison Quiros M. D. E11.649 Type 2 diabetes mellitus with hypoglycemia without coma Office Visit 07/08/2020 11:15a [facility] Jamison Quiros M. D. E11.649 Type 2 diabetes mellitus with hypoglycemia without coma Office Visit 06/18/2020 11:30a [facility] Jamison Quiros M. D. E11.649 Type 2 diabetes mellitus with hypoglycemia without coma F41.9 Anxiety disorder, unspecifie d Office Visit 05/24/2020 2:00p [facility] Jamison Quiros M. D. E11.649 Type 2 diabetes mellitus with hypoglycemia without coma Office Visit 05/03/2020 3:00p [facility] Jamison Quiros M. D. Z01.810 Encounter for preprocedural cardiovascular examination Assessments Date Code Description Provider 11/01/2020 E11.649 Type 2 diabetes mellitus with hy poglycemia without coma Jamison Quiros M.D. 11/01/2020 I10 Essential (primary) hypertension Jamison Quiros M.D. 11/01/2020 E78.5 [facility], [facility] 10[facility]22[facility]2020 E11.649 Type 2 diabetes mellitus with hy poglycemia without coma Jamison Quiros M.D. 10/18/2020 E11.649 Type 2 diabetes mellitus with hy poglycemia without coma Jamison Quiros M.D. 10/10/2020 E16.0 Drug-induced hypoglycemia withou t coma Ganga Cain D.O., FAAFP 10/10/2020 I10 Essential (primary) hypertension Ganga Cain D.O., FAAFP 10/10/2020 E11.649 Type 2 diabetes mellitus with hy poglycemia without coma Ganga Cain D.O., [facility] 09/16/2020 R10.9 Unspecified abdominal pain Jamison Du [...] hy poglycemia without coma Jamison Quiros M.D. 05/03/2020 Z01.810 Encounter for preprocedural card iovascular examination Jamison Quiros M.D. Plan of Treatment No Information Available Functional Status Description No Information Available Mental Status Description No Information Available Referrals Refer to Reason for Referral Status Appt Date Dilia Cain M.D. uncontrolled diabetes, sever al hospitalizations, ER visits for hypoglycemia- eval and rx Sent [facility] [address], [place] [address] [phone]
--- OUTSIDE RECORDS SUMMARY | 2020-12-28 16:27 | CCD | Continuity of Care Document ---
Author Author Elsy QUIROS M.D. Organization Unknown Address [address] [place] [address] Phone [phone] Care Team Providers Care Pump Service Supervisor Name Role Phone Dilia Cain M.D. AUTM [phone] Problems Active Problems Provider Date Essential hypertension [...] CPT Code Status Date Vaccine Lot # 10147 Given 11/01/2020 Influenza Virus Vaccine, Quadrivalent, Slit Virus, Im Use 3Y & Up [id number] 05686 Given 11/06/2019 Influenza Virus Vaccine, Quadrivalent, Slit Virus, Im Use 3Y & Up [id number] 68319 Given 01/04/2019 Influenza Virus Vaccine, Quadrivalent, Slit Virus, Im Use 3Y & Up [id number] Vital Signs Date Vital Result Comment 11/01/2020 11:12am BP Systolic 126 mmHg BP Diastolic 70 mmHg Body Temperature 97.4 F Heart Rate 70 /min Respiratory Rate 14 /min Height 60.5 inches 5'0.50" Weight 170.00 lb [place] Body Weight 100 lb BMI (Body Mass Index) 32.7 kg/m2 O2 % BldC Oximetry 97 % 10/22/2020 10:53am BP Systolic 140 mmHg BP Diastolic 64 mmHg Body Temperature 97.0 F Heart Rate 72 /min Respiratory Rate 18 /min Height 60.5 inches 5'0.50" Weight 172.00 lb [place] Body Weight 100 lb BMI (Body Mass Index) 33.0 kg/m2 O2 % BldC Oximetry 98 % Results Test Acquired Date Facility Test Result H/L Range Note Laboratory test finding 11/20/2020 [facility] ([facility]) [phone] Bedside Glucose 208 mg/dL High 83-110 Laboratory test finding 11/20/2020 [facility] ([facility]) [phone] Bedside Glucose 84 mg/dL Normal 83-110 Laboratory test finding 11/20/2020 [facility] ([facility]) [phone] Bedside Glucose 36 mg/dL Critical low 83-110 1 Laboratory test finding 11/20/2020 [facility] ([facility]) [phone] Bedside Glucose 25 mg/dL Critical low 83-110 2 Laboratory test finding 11/20/2020 [facility] ([facility]) [phone] Bedside Glucose 32 mg/dL Critical low 83-110 3 Laboratory test finding 11/20/2020 [facility] ([facility]) [phone] Bedside Glucose 309 mg/dL High 83-110 Hemoglobin [...] eGFR 75 # Calc 6 eGFR Non-Afr. [place] 65 # Calc 7 Lipid Panel 11/01/2020 [facility] Chol 131 mg/dL 0 - 200 Trig 76 mg/dL 40 - 200 HDL 57 mg/dL 45 - 65 LDL_C 59 Calc Low 75 - 129 Cho/HDL Ratio 2.3 Calc Laboratory test finding 10/15/2020 [facility] ([facility]) [phone] Bedside Glucose 43 mg/dL Low 83-110 Laboratory test finding 10/15/2020 [facility] ([facility]) [phone] Osmolality Serum 290 MOSM/KG Normal 280-301 Thyroid Stimulating Hormone 2.430 uIU/ML Normal 0.358-3.740 Basic Metabolic Profile 10/15/2020 [facility] ([facility]) [phone] Glucose, Fasting 44 mg/dL Low 70-100 Blood [...] 9.2 mg/dL Normal 8.8-10.2 Liver Profile 10/15/2020 [facility] (I nterface) [phone] Ast/Sgot 12 U/L Normal 7-37 Alt/SGPT 22 U/L Normal 12-78 Alkaline Phosphatase 97 U/L Normal 45-117 Bilirubin,Total 0.2 mg/dL Normal 0.2-1.0 Bilirubin,Direct < 0.1 mg/dL Normal 0.0-0.2 Total Protein 6.9 GM/DL Normal 6.4-8.2 Albumin 3.5 GM/DL Normal 3.2-5.2 Albumin/Globulin Ratio 1.0 Low 1.2-2.2 Cardiac Marker Panel 10/15/2020 [facility]) [phone] CPK Creatine Phosphokinase 43 U/L Normal 26-19 2 CK-MB Value Mass < 1.0 NG/ML Normal <3.6 MB/CK Relative Index 2.33 Normal < Or =4 9 Troponin I < 0.02 NG/ML Normal < 0.10 10 CBC With Differential 10/15/2020 [facility]) [phone] White Blood Count 8.1 10 Normal 4.0-10.0 [...] 36.0-66.0 Lymph % 37.8 % Normal 24.0-44.0 [place] % 6.8 % Normal 2.0-8.0 Eos % 3.2 % High 0.0-3.0 Baso % 0.6 % Normal 0.0-1.0 Immature Granulocyte % 0.2 % Normal 0-3.0 Nucleated Red Blood Cell % 0.0 % Normal 0-0 Neutrophils # 4.2 10 Normal 1.5-8.5 Lymph # 3.1 10 Normal 1.5-5.0 [place] # 0.6 10 Normal 0.0-0.8 Eos # 0.3 10 Normal 0.0-0.5 Baso # 0.1 10 Normal 0.0-0.2 Laboratory test finding [facility] [phone] Bedside Glucose 159 mg/dL High 83-110 Laboratory test finding 10/15/[facility] [phone] Bedside Glucose 203 mg/dL High 83-110 Istat Chem8+ Panel 10/13/2020 [facility] [phone] iSTAT HCT 40.0 % Normal 38.0-51.0 iSTAT Glucose 179 mg/dL High 70-105 iSTAT Sodium 141 mEq/L Normal 136-145 iSTAT Potassium 3.8 mEq/L Normal 3.5-5.1 iSTAT CA++ 4.2 mg/dL Low 4.5-5.3 iSTAT Chloride 104 mEq/L Normal 98-109 iSTAT Co2 24.0 MM/L Normal 23.0-27.0 iSTAT BUN 28 mg/dL High 8-26 iSTAT Creatinine 0.9 mg/dL Normal 0.6-1.3 Laboratory test finding 10/10/2020 [facility] Glucometer[facility] 214 mg/dL High 65-109 Basic Metabolic Profile 10/03/2020 [facility] [phone] Glucose, Fasting 58 mg/dL Low 70-100 Blood [...] mg/dL Normal 8.8-10.2 Laboratory test finding 10/03/2020 [facility] (Interface) [phone] Magnesium Level 2.2 mg/dL Normal 1.8-2.4 Thyroid Stimulating Hormone 2.440 uIU/ML Normal 0.358-3.740 Cardiac Marker Panel 10/03/2020 [facility]) [phone] CPK Creatine Phosphokinase 77 U/L Normal 26-19 2 CK-MB Value Mass 1.5 NG/ML Normal <3.6 MB/CK Relative Index 1.95 Normal < Or =4 12 Troponin I < 0.02 NG/ML Normal < 0.10 13 CBC With Differential 10/03/2020 [facility]) [phone] White Blood Count 7.5 10 Normal 4.0-10.0 [...] 36.0-66.0 Lymph % 30.2 % Normal 24.0-44.0 [place] % 6.3 % Normal 2.0-8.0 Eos % 1.6 % Normal 0.0-3.0 Baso % 0.7 % Normal 0.0-1.0 Immature Granulocyte % 0.3 % Normal 0-3.0 Nucleated Red Blood Cell % 0.0 % Normal 0-0 Neutrophils # 4.6 10 Normal 1.5-8.5 Lymph # 2.3 10 Normal 1.5-5.0 [place] # 0.5 10 Normal 0.0-0.8 Eos # 0.1 10 Normal 0.0-0.5 Baso # 0.1 10 Normal 0.0-0.2 Laboratory test finding 10/03/2020 [facility] (Interface) [phone] Bedside Glucose 31 mg/dL Critical low 83-110 Laboratory test finding 10/03/2020 [facility] (Interface) [phone] Bedside Glucose 77 mg/dL Low 83-110 Laboratory test finding 10/03/2020 [facility] (Interface) [phone] Bedside Glucose 217 mg/dL High 83-110 Venous Blood Gas 10/03/2020 [facility] (I [facility]terface) [phone] Venous PH 7.375 units Normal 7.330-7.430 Venous [...] eGFR 75 # Calc 16 eGFR Non-Afr. [place] 65 # Calc 17 CBC 09/16/2020 [facility] [...] 9.0 - 13.0 Istat Chem8+ Panel 07/13/2020 [facility] (I [facility]) [phone] iSTAT HCT 35.0 % Low 38.0-51.0 iSTAT Glucose 229 mg/dL High 70-105 iSTAT Sodium 138 mEq/L Normal 136-145 iSTAT Potassium 4.3 mEq/L Normal 3.5-5.1 iSTAT CA++ 4.7 mg/dL Normal 4.5-5.3 iSTAT Chloride 100 mEq/L Normal 98-109 iSTAT Co2 31.0 MM/L High 23.0-27.0 iSTAT BUN 26 mg/dL Normal 8-26 iSTAT Creatinine 1.6 mg/dL High 0.6-1.3 Laboratory test finding 07/13/2020 [facility] (Interface) [phone] Bedside Glucose 177 mg/dL High 83-110 18 Laboratory test finding 07/13/2020 [facility] (Interface) [phone] Bedside Glucose 245 mg/dL High 83-110 Basic Metabolic Profile 07/05/2020 [facility] (Interface) [phone] Glucose, Fasting 113 mg/dL High 70-100 Blood [...] 9.7 mg/dL Normal 8.8-10.2 Blood Culture 07/05/2020 [facility] [phone] Blood Culture No growth after <SEE NOTE> 21 Laboratory test finding 07/05/2020 [facility] (Interface) [phone] Thyroid Stimulating Hormone 7.580 uIU/ML High 0. 358-3.740 Liver Profile 07/05/2020 [facility] [phone] Ast/Sgot 16 U/L Normal 7-37 Alt/SGPT 21 U/L Normal 12-78 Alkaline Phosphatase 89 U/L Normal 45-117 Bilirubin,Total 0.4 mg/dL Normal 0.2-1.0 Bilirubin,Direct < 0.1 mg/dL Normal 0.0-0.2 Total Protein 7.3 GM/DL Normal 6.4-8.2 Albumin 4.0 GM/DL Normal 3.2-5.2 Albumin/Globulin Ratio 1.2 Normal 1.2-2.2 Cardiac Marker Panel 07/05/2020 [facility] ( Interface) [phone] CPK Creatine Phosphokinase 90 U/L Normal 26-19 2 CK-MB Value Mass 1.6 NG/ML Normal <3.6 MB/CK Relative Index 1.78 Normal < Or =4 22 Troponin I < 0.02 NG/ML Normal < 0.10 23 Laboratory test finding 07/05/2020 [facility] (Interface) [phone] Ammonia 30 uMOL/L Normal <32 Venous Blood Gas 07/05/2020 [facility] [phone] Venous PH 7.328 units Low 7.330-7.430 Venous Partial Pressure Co2 56.7 mmHg High 38.0-50.0 Venous Partial Pressure O2 39.1 mmHg Normal 30.0-50.0 Venous Total Co2 30.8 mEq/L High 24.0-28.0 Venous Hco3 29.1 mEq/L High 23.0-27.0 Venous Base Excess 2.0 Normal -2.0-2.0 Venous Standard Hco3 25.6 mEq/L Normal Venous O2 Saturation 69.2 % Normal 60.0-80.0 CBC With Differential 07/05/2020 [facility] (Interface) [phone] White Blood Count 6.0 10 Normal 4.0-10.0 [...] 36.0-66.0 Lymph % 43.0 % Normal 24.0-44.0 [place] % 6.5 % Normal 2.0-8.0 Eos % 5.5 % High 0.0-3.0 Baso % 0.7 % Normal 0.0-1.0 Immature Granulocyte % 0.3 % Normal 0-3.0 Nucleated Red Blood Cell % 0.0 % Normal 0-0 Neutrophils # 2.6 10 Normal 1.5-8.5 Lymph # 2.6 10 Normal 1.5-5.0 [place] # 0.4 10 Normal 0.0-0.8 Eos # 0.3 10 Normal 0.0-0.5 Baso # 0.0 10 Normal 0.0-0.2 Blood Culture 07/05/2020 [facility]) [phone] Blood Culture No growth after <SEE NOTE> 24 Drug Eval Toxicology ED Only 07/05/2020 [facility] (Interface) [phone] Amphetamines Level Urine NEGATIVE Normal Negativ e Barbiturates Urine NEGATIVE Normal Negative Benzodiazepines Urine NEGATIVE Normal Negative Cannabinoids Urine NEGATIVE Normal Negative Cocaine Metabolite Urine NEGATIVE Normal Negative Methadone Urine NEGATIVE Normal Negative Opiates Urine NEGATIVE Normal Negative Phencyclidine Urine NEGATIVE Normal Negative 25 Ua W/ Reflex To Culture 07/05/2020 [facility] (Interface) [phone] Appearance, Urine RFX CLEAR Normal Clear Color, Urine RFX STRAW Normal Yellow PH,Urine RFX 6.0 units Normal 5.0-9.0 Specific [place] Ur Auto RFX 1.006 Normal 1.002-1.035 Protein, [...] /LPF Normal 0-1 Istat Chem8+ Panel 06/18/2020 [facility]) [phone] iSTAT HCT 40.0 % Normal 38.0-51.0 iSTAT Glucose 201 mg/dL High 70-105 iSTAT Sodium 137 mEq/L Normal 136-145 iSTAT Potassium 4.2 mEq/L Normal 3.5-5.1 iSTAT CA++ 4.7 mg/dL Normal 4.5-5.3 iSTAT Chloride 99 mEq/L Normal 98-109 iSTAT Co2 31.0 MM/L High 23.0-27.0 iSTAT BUN 18 mg/dL Normal 8-26 iSTAT Creatinine 1.0 mg/dL Normal 0.6-1.3 CBC With Differential 06/18/2020 [facility]) [phone] White Blood Count 7.3 10 Normal 4.0-10.0 [...] 36.0-66.0 Lymph % 38.5 % Normal 24.0-44.0 [place] % 5.8 % Normal 2.0-8.0 Eos % 5.1 % High 0.0-3.0 Baso % 0.3 % Normal 0.0-1.0 Immature Granulocyte % 0.4 % Normal 0-3.0 Nucleated Red Blood Cell % 0.0 % Normal 0-0 Neutrophils # 3.6 10 Normal 1.5-8.5 Lymph # 2.8 10 Normal 1.5-5.0 [place] # 0.4 10 Normal 0.0-0.8 Eos # 0.4 10 Normal 0.0-0.5 Baso # 0.0 10 Normal 0.0-0.2 Liver Profile 06/18/2020 [facility] (I nterface) [phone] Ast/Sgot 14 U/L Normal 7-37 Alt/SGPT 22 U/L Normal 12-78 Alkaline Phosphatase 95 U/L Normal 45-117 Bilirubin,Total 0.3 mg/dL Normal 0.2-1.0 Bilirubin,Direct 0.1 mg/dL Normal 0.0-0.2 Total Protein 7.2 GM/DL Normal 6.4-8.2 Albumin 3.9 GM/DL Normal 3.2-5.2 Albumin/Globulin Ratio 1.2 Normal 1.2-2.2 Laboratory test finding 06/18/2020 [facility] (Interface) [phone] Lipase 311 U/L Normal 73-393 Basic Metabolic [...] Little GFR Left ESRD GFR <15 on ASSEMBLER CARDS AND ANNOUNCEMENTS 9 DIAGNOSIS CRITERIA MMB ng/ml Relative Index (RI) NON-AMI < or = 5 N/A GIL ZONE > 5 < or = 4 AMI > 5 > 4 10 Troponin I Reference Interva l for OLSETta LOCI: 99th Percentile= 0.00-0.045 ng/ml Risk Stratification: [...] Little GFR Left ESRD GFR <15 on ASSEMBLER CARDS AND ANNOUNCEMENTS 12 DIAGNOSIS CRITERIA MMB ng/ml Relative Index (RI) NON-AMI < or = 5 N/A GIL ZONE > 5 < or = 4 AMI > 5 > 4 13 Troponin I Reference Interva l for OLSETta LOCI: 99th Percentile= 0.00-0.045 ng/ml Risk Stratification: [...] HCT IS 5% LESS SOURCE FOR DATA: [employer] 1800 OPERATION MANUAL( AUTOMATED BLOOD COUNTS AND [...] Little GFR Left ESRD GFR <15 on ASSEMBLER CARDS AND ANNOUNCEMENTS 20 This specimen has an elevate d [...] 23 Troponin I Reference Interva l for Money Mover LOCI: 99th Percentile= 0.00-0.045 ng/ml Risk Stratification: [...] LAB. Procedures Date Code Description Status 11/01/2020 11630 Office/Outpatient Established Mo d MDM 30-39 Min Completed 10/22/2020 68035 Office/Outpatient Established Mo d MDM 30-39 Min Completed 10/18/2020 10870 Office/Outpatient Established Mo d MDM 30-39 Min Completed 10/10/2020 17145 Office/Outpatient Established Mo d MDM 30-39 Min Completed 10/10/2020 11563 Capillary Blood Collection Finge r, Heel, Ear Stick Completed 09/16/2020 73405 Office/Outpatient Established Mo d MDM 30-39 Min Completed 07/23/2020 39276 Office/Outpatient Established Mo d MDM 30-39 Min Completed 07/08/2020 65239 Office/Outpatient Established Mo d MDM 30-39 Min Completed 06/18/2020 20737 Office/Outpatient Established Mo d MDM 30-39 Min Completed 05/24/2020 42136 Office/Outpatient Established Mo d MDM 30-39 Min Completed 11/15/2019 [id number] Mammogram Completed Medical Devices Description No Information Available Encounters Type Date Location Provider Dx Diagnosis Office Visit 11/01/2020 10:40a [facility] Jamison Quiros M. D. E11.649 Type 2 diabetes mellitus with hypoglycemia without coma I10 Essential (primary) hyperten stephanie E78.5 Hyperlipidemia, unspecified Z23 Encounter for immunization Office Visit 10/22/2020 11:00a [facility] Jamison Quiros M. D. E11.649 Type 2 diabetes mellitus with hypoglycemia without coma Office Visit 10/18/2020 11:15a [facility] Jamison Quiros M. D. E11.649 Type 2 diabetes mellitus with hypoglycemia without coma Office Visit 10/10/2020 9:30a [facility] Alissa Vides, FAAFP E16.0 Drug-induced hypoglycemia without coma I10 Essential (primary) hyperten stephanie E11.649 Type 2 diabetes mellitus wit h hypoglycemia without coma Office Visit 09/16/2020 2:00p [facility] Jamison Quiros M. D. R10.9 Unspecified abdominal pain Office Visit 07/23/2020 10:20a [facility] Jamison Quiros M. D. E11.649 Type 2 diabetes mellitus with hypoglycemia without coma Office Visit 07/08/2020 11:15a [facility] Jamison Quiros M. D. E11.649 Type 2 diabetes mellitus with hypoglycemia without coma Office Visit 06/18/2020 11:30a [facility] Jamison Quiros M. D. E11.649 Type 2 diabetes mellitus with hypoglycemia without coma F41.9 Anxiety disorder, unspecifie d Office Visit 05/24/2020 2:00p [facility] Jamison Quiros M. D. E11.649 Type 2 diabetes mellitus with hypoglycemia without coma Assessments Date Code Description Provider 11/01/2020 E11.649 Type 2 diabetes mellitus with hy poglycemia without coma Jamison Quiros M.D. 11/01/2020 I10 Essential (primary) hypertension Jamison Quiros M.D. 11/01/2020 E78.5 Hyperlipidemia, unspecified [facility] Jamison antonio M.D. 11/01/2020 Z23 Encounter for immunization Jamison Du M.D. 10/22/2020 E11.649 Type 2 diabetes mellitus with hy poglycemia without coma Jamison Quiros M.D. 10/18/2020 E11.649 Type 2 diabetes mellitus with hy poglycemia without coma Jamison Quiros M.D. 10/10/2020 E16.0 Drug-induced hypoglycemia withou t coma Gagna Cain D.O., [facility] 10/10/2020 I10 Essential (primary) hypertension Ganga Cain D.O., [facility] 10/10/2020 E11.649 Type 2 diabetes mellitus with hy poglycemia without coma Ganga Cain D.O., [facility] 09/16/2020 R10.9 Unspecified abdominal pain Jamison Du [...] diabetes mellitus with hy poglycemia without coma Jamiosn Quiros M.D. Plan of Treatment Future Appointment(s):* 12/11/2020 11:00 am - Jamison Quiros M.D. at [facility] Functional Status Description No Information Available Mental Status Description No Information Available Referrals Refer to Dr Reason for Referral Status Appt Date Dilia Cain M.D. uncontrolled diabetes, sever al hospitalizations, ER visits for hypoglycemia- eval and rx Sent [facility] [address] [address] [phone]
--- OUTSIDE RECORDS SUMMARY | 2020-12-28 16:27 | CCD | Continuity of Care Document ---
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 Name Role Phone Yohan ZAPATA, Rebecca WHYTE [phone] Ishaan Cervantes, Jamison AUTDarrius [phone] Problems Active Problems Provider Date Acquired hallux [...] Unknown Pioglitazone HCL Unknown 00 Afluria PF [id number] Unknown 00 Humalog Unknown Immunizations Description No Information Available Vital Signs Date Vital Result Comment 07/13/2014 10:55am Pain Level 0 02/02/2013 2:18pm Height 53 inches 4'5" Weight 150.00 lb BP Systolic 125 mmHg BP Diastolic 65 mmHg Heart Rate 75 /min BMI (Body Mass Index) 37.5 kg/m2 Results Description No Information Available Procedures Date Code Description Status 10/11/2020 70765 Debridement 6-10 Nails Electric Completed 07/26/2020 52064 Debridement 6-10 Nails Electric Completed Medical Devices [...] 11:00 am - Ricco Read DPM at [facility] Functional Status Description No Information Available Mental Status Description No Information Available Referrals Description No Information Available
--- OUTSIDE RECORDS SUMMARY | 2020-12-28 16:27 | CCD ---
Continuity of Care Document (CCD) Created on: 10/29/2020 Elsy Killian External Reference #: [id number] : [id number] Sex: Female Author Author Elsy BARNES MD Organization Unknown Address [address] [place] [address] [address] [place] [address] Phone [phone] Care Team Providers Care Developing Machine Tender Name Role Phone Andre Acevedo M.D. AUTM [phone] Jamison Quiros M.D. AUTM [phone] Evan Carrion M.D. AUTM [phone] Jamison Quiros M.D. AUTM [phone] AUTM Unavailable Problems Active Problems Provider Date Essential hypertension Onset: 11/29/2015 Social History Type Date Description Comments Sex Unknown Smokeless Tobacco Never Used Smokeless Tobacco ETOH Use Denies alcohol use NONE FOR 9 YE ARS Recreational Drug Use Denies Drug Use Tobacco Use Start: Unknown End: Unknown Patient is a former smoker 1 PPD FOR 18 YEARS QUIT 2011 Allergies, Adverse Reactions, Alerts Active Allergies Criticality Reaction | Severity Comments Date Tape Unable to assess criticality white tape 11/29/2015 Medications Active Medications SIG Qnty Indications Ordering Provide r Date Trulicity 0.75mg/0.5 ML Solution Pen-Inject SC Once A Week Unknown Jardiance 10mg Tablets 1 tab by mouth every day Unknown Levemir Flextouch 10 0Unit/ML Solution Pen-Inject 7 Units 2 Times A Day Unknown History Medications [place] 5-325mg Tablets 1 by mouth tid prn pain 12tabs Richard Barnes MD - 09/02/2020 Dok 100mg Capsules Take One Capsule By Mouth Twice A Day Before Meals Avoid If Having Diarrhea 180caps Evan Carrion M.D. 04/30/2020 - 09/02/2020 Immunizations Description No Information Available Vital Signs Date Vital Result Comment 10/29/2020 11:40am BP Systolic 148 mmHg BP Diastolic 86 mmHg Body Temperature 98.4 F Height 59 inches 4'11" Weight 170.25 lb BMI (Body Mass Index) 34.4 kg/m2 [place] Body Weight 100 lb Weight 77.225 kg BSA (Body Surface Area) 1.72 m2 10/17/2020 1:33pm Body Temperature 97.4 F Results Test Acquired Date Facility Test Result H/L Range Note Laboratory test finding 05/10/2020 [facility] [address] [place] [address] [id number] [phone] Bedside Glucose 149 mg/dL High 83-110 Laboratory test finding 05/10/2020 [facility] [address] [place] [address] [id number] [phone] Pathology Request For Service (SEE NOTE) 1 Laboratory test finding 05/10/2020 [facility] [address] [place] [address] [phone] Bedside Glucose 140 mg/dL High 83-110 1 FINAL DIAGNOSIS Submitted as" lipoma abdominal wall": Mature adipose tissue, compatible with lipoma. Benign skin. 05/14/2020 - 1039 CLINICAL DIAGNOSIS Lipodystrophy vs lipoma abdominal wall 05/13/2020 - 1419 GROSS DIAGNOSIS Received in formalin labeled "lipoma abdominal wall" and consists of fragments of mature adipose tissue with skin, 12 x 10 x 5 cm in aggregate. The specimen is serially sectioned to reveal benign adipose tissue and skin. [employer] Principal sections submitted in one. -OA 05/13/2020 - 1419 Signed KASSY KOROMA MD 05/14/2020 1040 Procedures Date Code Description Status 10/17/2020 45394 Office/Outpatient New Low MDM 30 -44 Minutes Completed 09/12/2020 02593 Office/Outpatient Established Lo w MDM 20-29 Min Completed 05/10/2020 52434 Excision Tumor, Soft Tissue, Abdominal Wall, Subcutaneous, < 3 CM Completed 05/10/2020 62684 Excision Tumor, Soft Tissue, Abdominal Wall, Subcutaneous, < 3 CM Completed Medical Devices Description No Information Available Encounters Type Date Location Provider Dx Diagnosis Office Visit 10/17/2020 1:45p [facility] Jamison Ramsey MD S50.12xA Contusion of left forearm, initial encou nter S63.502A Unspecified sprain of left w rist, initial encounter W19.xxxA Unspecified fall, initial en counter Office Visit 09/12/2020 10:45a [facility] Huey Barnes MD E88.1 Lipodystrophy, not elsewhere classified Office Visit 06/06/2020 9:30a [facility] Huey Barnes MD E88.1 Lipodystrophy, not elsewhere classified M79.81 Nontraumatic hematoma of sof t tissue Z48.89 Encounter for other specifie d surgical aftercare Office Visit 05/23/2020 9:45a [facility] Huey Barnes MD E88.1 Lipodystrophy, not elsewhere classified D17.9 Benign lipomatous neoplasm, unspecified Z48.817 Encntr for surgical aftcr fo l surgery on the skin, subcu Assessments Date Code Description Provider 10/29/2020 E88.1 Lipodystrophy, not elsewhere cla ssiiram Barnes MD 10/17/2020 S50.12xA Contusion of left forearm, initi al encounter Jamison Ramsey MD 10/17/2020 S63.502A Unspecified sprain of left wrist , initial encounter Jamison Ramsey MD 10/17/2020 W19.xxxA Unspecified fall, initial encoun ter Jamison Ramsey MD 09/12/2020 E88.1 Lipodystrophy, not elsewhere cla vel Barnes MD 06/06/2020 E88.1 Lipodystrophy, not elsewhere cla vel Barnes MD 06/06/2020 M79.81 Subcutaneous hematoma Richard Barnes MD 06/06/2020 Z48.89 Encounter for other specified shannon rgical aftercare Richard Barnes MD 05/23/2020 E88.1 Lipodystrophy, not elsewhere cla vel Barnes MD 05/23/2020 D17.9 Benign lipomatous neoplasm, unsp ecified Richard Barnes MD 05/23/2020 Z48.817 Encounter for surgic al aftercare following surgery on the skin and subcutaneous tissue Richard Barnes MD 05/10/2020 D17.9 Benign lipomatous neoplasm, unsp dedra Barnes MD Plan of Treatment 10/29/2020 - Richard Barnes MD* E88.1 Lipodystrophy, not elsewhere classified* Comments:* Patient was booked me for possible lump underneath her breast [...] referral although I am not sure if [facility] insurance will pay for that.Follow-up as needed. Functional Status Description No Information Available Mental Status Description No Information Available Referrals Description No Information Available
--- OUTSIDE RECORDS SUMMARY | 2020-12-28 16:27 | CCD | Continuity of Care Document ---
Author Author Elsy BARNES MD Organization Unknown Address [address] [facility] [address] [place] [address] Phone [phone] Care Team Providers Care Gateman Name Role Phone Andre Acevedo M.D. AUTM [phone] Jamison Quiros M.D. AUTM [phone] Evan Carrion M.D. AUTM Jamison Quiros M.D. AUTM [phone] AUTM Unavailable Problems Active Problems Provider Date [...] lb BMI (Body Mass Index) 34.4 kg/m2 [place] Body Weight 100 lb Weight 77.225 kg BSA (Body Surface Area) 1.72 m2 10/17/2020 1:33pm Body Temperature 97.4 F Results Description No Information Available Procedures Date Code Description Status 10/17/2020 65311 Office/Outpatient New Low MDM 30 -44 Minutes Completed 09/12/2020 16104 Office/Outpatient Established Lo w MDM 20-29 Min Completed Medical Devices Description No Information Available Encounters Type Date Location Provider Dx Diagnosis Office Visit 10/17/2020 1:45p [facility] Jamison Ramsey MD S50.12xA Contusion of left forearm, initial encou nter S63.502A Unspecified sprain of left w rist, initial encounter W19.xxxA Unspecified fall, initial en counter Office Visit 09/12/2020 10:45a [facility] Huey Barnes MD E88.1 Lipodystrophy, not elsewhere classified Office Visit 06/20/2020 10:00a [facility] Huey Barnes MD E88.1 Lipodystrophy, not elsewhere classified M79.81 Nontraumatic hematoma of sof t tissue Z48.817 Encntr for surgical aftcr fo l surgery on the skin, subcu Office Visit 06/06/2020 9:30a [facility] Huey Barnes MD E88.1 Lipodystrophy, not elsewhere classified M79.81 Nontraumatic hematoma of sof t tissue Z48.89 Encounter for other specifie d surgical aftercare Office Visit 05/23/2020 9:45a [facility] Huey Barnes MD E88.1 [...] MD 10/17/2020 W19.xxxA Unspecified fall, initial encoun Cruz MD 09/12/2020 E88.1 Lipodystrophy, not elsewhere cla vel Barnes MD 06/20/2020 E88.1 Lipodystrophy, not elsewhere cla vel Barnes MD 06/20/2020 M79.81 Subcutaneous hematoma Richard Barnes MD 06/20/2020 Z48.817 Encounter for surgic al aftercare following surgery on the skin and subcutaneous tissue Richard Barnes MD 06/06/2020 E88.1 Lipodystrophy, not elsewhere dinh Barnes MD 06/06/2020 M79.81 Subcutaneous hematoma Richard Barnes MD 06/06/2020 Z48.89 Encounter for other specified shannon rgical aftercare Richard Barnes MD 05/23/2020 E88.1 Lipodystrophy, not elsewhere cla vel Barnes MD 05/23/2020 D17.9 Benign lipomatous neoplasm, unsp ecified Richard Barnes MD 05/23/2020 Z48.817 Encounter for surgic al aftercare following surgery on the skin and subcutaneous tissue Richrad Barnes MD Plan of Treatment 10/29/2020 - [...]
--- OUTSIDE RECORDS SUMMARY | 2020-12-28 16:27 | CCD | Continuity of Care Document ---
Author Author Elsy QUIROS M.D. Organization Unknown Address [address] [place] [address] Phone [phone] Care Team Providers Care Block Placer Name Role Phone Dilia Cain M.D. AUTM [phone] Problems Active Problems Provider Date Essential hypertension [...] CPT Code Status Date Vaccine Lot # [id number] Given 11/01/2020 Influenza Virus Vaccine, Quadrivalent, Slit Virus, Im Use 3Y & Up [id number] 61674 Given 11/06/2019 Influenza Virus Vaccine, Quadrivalent, Slit Virus, Im Use 3Y & Up [id number] 68530 Given 01/04/2019 Influenza Virus Vaccine, Quadrivalent, Slit Virus, Im Use 3Y & Up [id number] Vital Signs Date Vital Result Comment 11/01/2020 11:12am BP Systolic 126 mmHg BP Diastolic 70 mmHg Body Temperature 97.4 F Heart Rate 70 /min Respiratory Rate 14 /min Height 60.5 inches 5'0.50" Weight 170.00 lb [place] Body Weight 100 lb BMI (Body Mass Index) 32.7 kg/m2 O2 % BldC Oximetry 97 % 10/22/2020 10:53am BP Systolic 140 mmHg BP Diastolic 64 mmHg Body Temperature 97.0 F Heart Rate 72 /min Respiratory Rate 18 /min Height 60.5 inches 5'0.50" Weight 172.00 lb [place] Body Weight 100 lb BMI (Body Mass Index) 33.0 kg/m2 O2 % BldC Oximetry 98 % Results Test Acquired Date Facility Test Result H/L Range Note Laboratory test finding 11/20/2020 [facility]) [phone] Bedside Glucose 208 mg/dL High 83-110 Laboratory test finding 11/20/2020 [facility]) [phone] Bedside Glucose 84 mg/dL Normal 83-110 Laboratory test finding 11/20/2020 [facility]) [phone] Bedside Glucose 36 mg/dL Critical low 83-110 1 Laboratory test finding 11/20/2020 [facility]) [phone] Bedside Glucose 25 mg/dL Critical low 83-110 2 Laboratory test finding 11/20/2020 [facility]) [phone] Bedside Glucose 32 mg/dL Critical low 83-110 3 Laboratory test finding 11/20/2020 [facility] ([facility]) [phone] Bedside Glucose 309 mg/dL High 83-110 Hemoglobin [...] eGFR 75 # Calc 6 eGFR Non-Afr. Jamaican 65 # Calc 7 Lipid Panel 11/01/2020 [facility] Chol 131 mg/dL 0 - 200 Trig 76 mg/dL 40 - 200 HDL 57 mg/dL 45 - 65 LDL_C 59 Calc Low 75 - 129 Cho/HDL Ratio 2.3 Calc Laboratory test finding 10/15/2020 [facility] ([facility]) [phone] Bedside Glucose 43 mg/dL Low 83-110 Laboratory test finding 10/15/2020 [facility] ([facility]) [phone] Osmolality Serum 290 MOSM/KG Normal 280-301 Thyroid Stimulating Hormone 2.430 uIU/ML Normal 0.358-3.740 Basic Metabolic Profile 10/15/2020 [facility] ([facility]) [phone] Glucose, Fasting 44 mg/dL Low 70-100 Blood [...] 9.2 mg/dL Normal 8.8-10.2 Liver Profile 10/15/2020 [facility] ([facility]) [phone] Ast/Sgot 12 U/L Normal 7-37 Alt/SGPT 22 U/L Normal 12-78 Alkaline Phosphatase 97 U/L Normal 45-117 Bilirubin,Total 0.2 mg/dL Normal 0.2-1.0 Bilirubin,Direct < 0.1 mg/dL Normal 0.0-0.2 Total Protein 6.9 GM/DL Normal 6.4-8.2 Albumin 3.5 GM/DL Normal 3.2-5.2 Albumin/Globulin Ratio 1.0 Low 1.2-2.2 Cardiac Marker Panel 10/15/2020 [facility]) [phone] CPK Creatine Phosphokinase 43 U/L Normal 26-19 2 CK-MB Value Mass < 1.0 NG/ML Normal <3.6 MB/CK Relative Index 2.33 Normal < Or =4 9 Troponin I < 0.02 NG/ML Normal < 0.10 10 CBC With Differential 10/15/2020 [facility]) [phone] White Blood Count 8.1 10 Normal 4.0-10.0 [...] 36.0-66.0 Lymph % 37.8 % Normal 24.0-44.0 Rush % 6.8 % Normal 2.0-8.0 Eos % 3.2 % High 0.0-3.0 Baso % 0.6 % Normal 0.0-1.0 Immature Granulocyte % 0.2 % Normal 0-3.0 Nucleated Red Blood Cell % 0.0 % Normal 0-0 Neutrophils # 4.2 10 Normal 1.5-8.5 Lymph # 3.1 10 Normal 1.5-5.0 Rush # 0.6 10 Normal 0.0-0.8 Eos # 0.3 10 Normal 0.0-0.5 Baso # 0.1 10 Normal 0.0-0.2 Laboratory test finding [facility] [phone] Bedside Glucose 159 mg/dL High 83-110 Laboratory test finding 10/15/2020 [facility]) [phone] Bedside Glucose 203 mg/dL High 83-110 Istat Chem8+ Panel 10/13/2020 [facility] [phone] iSTAT HCT 40.0 % Normal 38.0-51.0 iSTAT Glucose 179 mg/dL High 70-105 iSTAT Sodium 141 mEq/L Normal 136-145 iSTAT Potassium 3.8 mEq/L Normal 3.5-5.1 iSTAT CA++ 4.2 mg/dL Low 4.5-5.3 iSTAT Chloride 104 mEq/L Normal 98-109 iSTAT Co2 24.0 MM/L Normal 23.0-27.0 iSTAT BUN 28 mg/dL High 8-26 iSTAT Creatinine 0.9 mg/dL Normal 0.6-1.3 Laboratory test finding 10/10/2020 [facility] Glucometer-[facility] 214 mg/dL High 65-109 Basic Metabolic Profile 10/03/2020 [facility] [phone] Glucose, Fasting 58 mg/dL Low 70-100 Blood [...] mg/dL Normal 8.8-10.2 Laboratory test finding 10/03/2020 [facility] (Interface) [phone] Magnesium Level 2.2 mg/dL Normal 1.8-2.4 Thyroid Stimulating Hormone 2.440 uIU/ML Normal 0.358-3.740 Cardiac Marker Panel 10/03/2020 [facility]) [phone] CPK Creatine Phosphokinase 77 U/L Normal 26-19 2 CK-MB Value Mass 1.5 NG/ML Normal <3.6 MB/CK Relative Index 1.95 Normal < Or =4 12 Troponin I < 0.02 NG/ML Normal < 0.10 13 CBC With Differential 10/03/2020 [facility]) [phone] White Blood Count 7.5 10 Normal 4.0-10.0 [...] 36.0-66.0 Lymph % 30.2 % Normal 24.0-44.0 Rush % 6.3 % Normal 2.0-8.0 Eos % 1.6 % Normal 0.0-3.0 Baso % 0.7 % Normal 0.0-1.0 Immature Granulocyte % 0.3 % Normal 0-3.0 Nucleated Red Blood Cell % 0.0 % Normal 0-0 Neutrophils # 4.6 10 Normal 1.5-8.5 Lymph # 2.3 10 Normal 1.5-5.0 Rush # 0.5 10 Normal 0.0-0.8 Eos # 0.1 10 Normal 0.0-0.5 Baso # 0.1 10 Normal 0.0-0.2 Laboratory test finding 10/03/2020 [facility] (Interface) [phone] Bedside Glucose 31 mg/dL Critical low 83-110 Laboratory test finding 10/03/2020 [facility] (Interface) [phone] Bedside Glucose 77 mg/dL Low 83-110 Laboratory test finding 10/03/2020 [facility] ([facility]) [phone] Bedside Glucose 217 mg/dL High 83-110 Venous Blood Gas 10/03/2020 [facility] ([facility]) [phone] Venous PH 7.375 units Normal 7.330-7.430 Venous [...] eGFR 75 # Calc 16 eGFR Non-Afr. Jamaican 65 # Calc 17 CBC 09/16/2020 [facility] [...] 9.0 - 13.0 Istat Chem8+ Panel 07/13/2020 [facility] ([facility]) [phone] iSTAT HCT 35.0 % Low 38.0-51.0 iSTAT Glucose 229 mg/dL High 70-105 iSTAT Sodium 138 mEq/L Normal 136-145 iSTAT Potassium 4.3 mEq/L Normal 3.5-5.1 iSTAT CA++ 4.7 mg/dL Normal 4.5-5.3 iSTAT Chloride 100 mEq/L Normal 98-109 iSTAT Co2 31.0 MM/L High 23.0-27.0 iSTAT BUN 26 mg/dL Normal 8-26 iSTAT Creatinine 1.6 mg/dL High 0.6-1.3 Laboratory test finding 07/13/2020 [facility] (Interface) [phone] Bedside Glucose 177 mg/dL High 83-110 18 Laboratory test finding 07/13/2020 [facility] (Interface) [phone] Bedside Glucose 245 mg/dL High 83-110 Basic Metabolic Profile 07/05/2020 [facility] (Interface) [phone] Glucose, Fasting 113 mg/dL High 70-100 Blood [...] 9.7 mg/dL Normal 8.8-10.2 Blood Culture 07/05/2020 [facility] [phone] Blood Culture No growth after <SEE NOTE> 21 Laboratory test finding 07/05/2020 [facility] (Interface) [phone] Thyroid Stimulating Hormone 7.580 uIU/ML High 0. 358-3.740 Liver Profile 07/05/2020 [facility] [phone] Ast/Sgot 16 U/L Normal 7-37 Alt/SGPT 21 U/L Normal 12-78 Alkaline Phosphatase 89 U/L Normal 45-117 Bilirubin,Total 0.4 mg/dL Normal 0.2-1.0 Bilirubin,Direct < 0.1 mg/dL Normal 0.0-0.2 Total Protein 7.3 GM/DL Normal 6.4-8.2 Albumin 4.0 GM/DL Normal 3.2-5.2 Albumin/Globulin Ratio 1.2 Normal 1.2-2.2 Cardiac Marker Panel 07/05/2020 [facility] ( Interface) [phone] CPK Creatine Phosphokinase 90 U/L Normal 26-19 2 CK-MB Value Mass 1.6 NG/ML Normal <3.6 MB/CK Relative Index 1.78 Normal < Or =4 22 Troponin I < 0.02 NG/ML Normal < 0.10 23 Laboratory test finding 07/05/2020 [facility] (Interface) [phone] Ammonia 30 uMOL/L Normal <32 Venous Blood Gas 07/05/2020 [facility] [phone] Venous PH 7.328 units Low 7.330-7.430 Venous Partial Pressure Co2 56.7 mmHg High 38.0-50.0 Venous Partial Pressure O2 39.1 mmHg Normal 30.0-50.0 Venous Total Co2 30.8 mEq/L High 24.0-28.0 Venous Hco3 29.1 mEq/L High 23.0-27.0 Venous Base Excess 2.0 Normal -2.0-2.0 Venous Standard Hco3 25.6 mEq/L Normal Venous O2 Saturation 69.2 % Normal 60.0-80.0 CBC With Differential 07/05/2020 [facility] (Interface) [phone] White Blood Count 6.0 10 Normal 4.0-10.0 [...] 36.0-66.0 Lymph % 43.0 % Normal 24.0-44.0 Rush % 6.5 % Normal 2.0-8.0 Eos % 5.5 % High 0.0-3.0 Baso % 0.7 % Normal 0.0-1.0 Immature Granulocyte % 0.3 % Normal 0-3.0 Nucleated Red Blood Cell % 0.0 % Normal 0-0 Neutrophils # 2.6 10 Normal 1.5-8.5 Lymph # 2.6 10 Normal 1.5-5.0 Rush # 0.4 10 Normal 0.0-0.8 Eos # 0.3 10 Normal 0.0-0.5 Baso # 0.0 10 Normal 0.0-0.2 Blood Culture 07/05/2020 [facility]) [phone] Blood Culture No growth after <SEE NOTE> 24 Drug Eval [facility] [phone] Amphetamines Level Urine NEGATIVE Normal Negativ e Barbiturates Urine NEGATIVE Normal Negative Benzodiazepines Urine NEGATIVE Normal Negative Cannabinoids Urine NEGATIVE Normal Negative Cocaine Metabolite Urine NEGATIVE Normal Negative Methadone Urine NEGATIVE Normal Negative Opiates Urine NEGATIVE Normal Negative Phencyclidine Urine NEGATIVE Normal Negative 25 Ua W/ Reflex To Culture 07/05/2020 [facility] (Interface) [phone] Appearance, Urine RFX CLEAR Normal Clear Color, Urine RFX STRAW Normal Yellow PH,Urine RFX 6.0 units Normal 5.0-9.0 Specific [place] Ur Auto RFX 1.006 Normal 1.002-1.035 Protein, [...] /LPF Normal 0-1 Istat Chem8+ Panel 06/18/2020 [facility]) [phone] iSTAT HCT 40.0 % Normal 38.0-51.0 iSTAT Glucose 201 mg/dL High 70-105 iSTAT Sodium 137 mEq/L Normal 136-145 iSTAT Potassium 4.2 mEq/L Normal 3.5-5.1 iSTAT CA++ 4.7 mg/dL Normal 4.5-5.3 iSTAT Chloride 99 mEq/L Normal 98-109 iSTAT Co2 31.0 MM/L High 23.0-27.0 iSTAT BUN 18 mg/dL Normal 8-26 iSTAT Creatinine 1.0 mg/dL Normal 0.6-1.3 CBC With Differential 06/18/2020 [facility]) [phone] White Blood Count 7.3 10 Normal 4.0-10.0 [...] 36.0-66.0 Lymph % 38.5 % Normal 24.0-44.0 Rush % 5.8 % Normal 2.0-8.0 Eos % 5.1 % High 0.0-3.0 Baso % 0.3 % Normal 0.0-1.0 Immature Granulocyte % 0.4 % Normal 0-3.0 Nucleated Red Blood Cell % 0.0 % Normal 0-0 Neutrophils # 3.6 10 Normal 1.5-8.5 Lymph # 2.8 10 Normal 1.5-5.0 Rush # 0.4 10 Normal 0.0-0.8 Eos # 0.4 10 Normal 0.0-0.5 Baso # 0.0 10 Normal 0.0-0.2 Liver Profile 06/18/2020 [facility] ([facility]) [phone] Ast/Sgot 14 U/L Normal 7-37 Alt/SGPT 22 U/L Normal 12-78 Alkaline Phosphatase 95 U/L Normal 45-117 Bilirubin,Total 0.3 mg/dL Normal 0.2-1.0 Bilirubin,Direct 0.1 mg/dL Normal 0.0-0.2 Total Protein 7.2 GM/DL Normal 6.4-8.2 Albumin 3.9 GM/DL Normal 3.2-5.2 Albumin/Globulin Ratio 1.2 Normal 1.2-2.2 Laboratory test finding 06/18/2020 [facility] (Interface) [phone] Lipase 311 U/L Normal 73-393 Basic Metabolic [...] Little GFR Left ESRD GFR <15 on BUILDING WRECKER 9 DIAGNOSIS CRITERIA MMB ng/ml Relative Index (RI) NON-AMI < or = 5 N/A GIL ZONE > 5 < or = 4 AMI > 5 > 4 10 Troponin I Reference Interva l for Maestranota LOCI: 99th Percentile= 0.00-0.045 ng/ml Risk Stratification: [...] Little GFR Left ESRD GFR <15 on BUILDING WRECKER 12 DIAGNOSIS CRITERIA MMB ng/ml Relative Index (RI) NON-AMI < or = 5 N/A GIL ZONE > 5 < or = 4 AMI > 5 > 4 13 Troponin I Reference Interva l for Maestranota LOCI: 99th Percentile= 0.00-0.045 ng/ml Risk Stratification: [...] HCT IS 5% LESS SOURCE FOR DATA: [employer] 1800 OPERATION MANUAL( AUTOMATED BLOOD COUNTS AND [...] Little GFR Left ESRD GFR <15 on BUILDING WRECKER 20 This specimen has an elevate d [...] 23 Troponin I Reference Interva l for varinode LOCI: 99th Percentile= 0.00-0.045 ng/ml Risk Stratification: [...] LAB. Procedures Date Code Description Status 11/01/2020 28723 Office/Outpatient Established Mo d MDM 30-39 Min Completed 10/22/2020 04440 Office/Outpatient Established Mo d MDM 30-39 Min Completed 10/18/2020 94865 Office/Outpatient Established Mo d MDM 30-39 Min Completed 10/10/2020 51704 Office/Outpatient Established Mo d MDM 30-39 Min Completed 10/10/2020 88093 Capillary Blood Collection Finge r, Heel, Ear Stick Completed 09/16/2020 63366 Office/Outpatient Established Mo d MDM 30-39 Min Completed 07/23/2020 61146 Office/Outpatient Established Mo d MDM 30-39 Min Completed 07/08/2020 93179 Office/Outpatient Established Mo d MDM 30-39 Min Completed 06/18/2020 43070 Office/Outpatient Established Mo d MDM 30-39 Min Completed 05/24/2020 63964 Office/Outpatient Established Mo d MDM 30-39 Min Completed 11/15/2019 [id number] Mammogram Completed Medical Devices Description No Information Available Encounters Type Date Location Provider Dx Diagnosis Office Visit 11/01/2020 10:40a [facility] Jamison Quiros M. D. E11.649 Type 2 diabetes mellitus with hypoglycemia without coma I10 Essential (primary) hyperten stephanie E78.5 Hyperlipidemia, unspecified Z23 Encounter for immunization Office Visit 10/22/2020 11:00a [facility] Jamison Quiros M. D. E11.649 Type 2 diabetes mellitus with hypoglycemia without coma Office Visit 10/18/2020 11:15a [facility] Jamison Quiros M. D. E11.649 Type 2 diabetes mellitus with hypoglycemia without coma Office Visit 10/10/2020 9:30a [facility] Alissa Vides, FAAFP E16.0 Drug-induced hypoglycemia without coma I10 Essential (primary) hyperten stephanie E11.649 Type 2 diabetes mellitus wit h hypoglycemia without coma Office Visit 09/16/2020 2:00p [facility] Jamison Quiros M. D. R10.9 Unspecified abdominal pain Office Visit 07/23/2020 10:20a [facility] Jamison Quiros M. D. E11.649 Type 2 diabetes mellitus with hypoglycemia without coma Office Visit 07/08/2020 11:15a [facility] Jamison Quiros M. D. E11.649 Type 2 diabetes mellitus with hypoglycemia without coma Office Visit 06/18/2020 11:30a [facility] Jamison Quiros M. D. E11.649 Type 2 diabetes mellitus with hypoglycemia without coma F41.9 Anxiety disorder, unspecifie d Office Visit 05/24/2020 2:00p [facility] Jamison Quiros M. D. E11.649 Type 2 diabetes mellitus with hypoglycemia without coma Assessments Date Code Description Provider 11/01/2020 E11.649 Type 2 diabetes mellitus with hy poglycemia without coma Jamison Quiros M.D. 11/01/2020 I10 Essential (primary) hypertension Jamison Quiros M.D. 11/01/2020 E78.5 Hyperlipidemia, unspecified [facility] Jamison antonio M.D. 11/01/2020 Z23 Encounter for immunization Jamison Du M.D. 10/22/2020 E11.649 Type 2 diabetes mellitus with hy poglycemia without coma Jamison Quiros M.D. 10/18/2020 E11.649 Type 2 diabetes mellitus with hy poglycemia without coma Jamison Quiros M.D. 10/10/2020 E16.0 Drug-induced hypoglycemia withou t coma Ganga Cain D.O., [facility] 10/10/2020 I10 [...] 11:00 am - Jamison Quiros M.D. at [facility] Functional Status Description No Information Available Mental Status Description No Information Available Referrals Refer to Dr Reason for Referral Status Appt Date Dilia Cain M.D. uncontrolled diabetes, sever al hospitalizations, ER visits for hypoglycemia- eval and rx Sent [facility] [address] [address] [phone]
--- OUTSIDE RECORDS SUMMARY | 2020-12-28 16:27 | CCD | Continuity of Care Document ---
Author Author Elsy QUIROS M.D. 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 AUTM [phone] Problems Active Problems Provider Date Essential hypertension [...] CPT Code Status Date Vaccine Lot # [id number] Given 11/01/2020 Influenza Virus Vaccine, Quadrivalent, Slit Virus, Im Use 3Y & Up [id number] Given 11/06/2019 Influenza Virus Vaccine, Quadrivalent, Slit Virus, Im Use 3Y & Up [id number] 86851 Given 01/04/2019 Influenza Virus Vaccine, Quadrivalent, Slit Virus, Im Use 3Y & Up [id number] Vital Signs Date Vital Result Comment 11/01/2020 11:12am BP Systolic 126 mmHg BP Diastolic 70 mmHg Body Temperature 97.4 F Heart Rate 70 /min Respiratory Rate 14 /min Height 60.5 inches 5'0.50" Weight 170.00 lb [place] Body Weight 100 lb BMI (Body Mass Index) 32.7 kg/m2 O2 % BldC Oximetry 97 % 10/22/2020 10:53am BP Systolic 140 mmHg BP Diastolic 64 mmHg Body Temperature 97.0 F Heart Rate 72 /min Respiratory Rate 18 /min Height 60.5 inches 5'0.50" Weight 172.00 lb [place] Body Weight 100 lb BMI (Body Mass Index) 33.0 kg/m2 O2 % BldC Oximetry 98 % Results Test Acquired Date Facility Test Result H/L Range Note Laboratory test finding 11/20/2020 [facility] ([facility]) [phone] Bedside Glucose 208 mg/dL High 83-110 Laboratory test finding 11/20/2020 [facility] ([facility]) [phone] Bedside Glucose 84 mg/dL Normal 83-110 Laboratory test finding 11/20/2020 [facility] ([facility]) [phone] Bedside Glucose 36 mg/dL Critical low 83-110 1 Laboratory test finding 11/20/2020 [facility] ([facility]) [phone] Bedside Glucose 25 mg/dL Critical low 83-110 2 Laboratory test finding 11/20/2020 [facility] ([facility]) [phone] Bedside Glucose 32 mg/dL Critical low 83-110 3 Laboratory test finding 11/20/2020 [facility] ([facility]) [phone] Bedside Glucose 309 mg/dL High 83-110 Hemoglobin [...] eGFR 75 # Calc 6 eGFR Non-Afr. Taiwanese 65 # Calc 7 Lipid Panel 11/01/2020 [facility] 131 mg/dL 0 - 200 Trig 76 mg/dL 40 - 200 HDL 57 mg/dL 45 - 65 LDL_C 59 Calc Low 75 - 129 Cho/HDL Ratio 2.3 Calc Laboratory test finding 10/15/2020 [facility] ([facility]) [phone] Bedside Glucose 43 mg/dL Low 83-110 Laboratory test finding 10/15/2020 [facility] ([facility]) [phone] Osmolality Serum 290 MOSM/KG Normal 280-301 Thyroid Stimulating Hormone 2.430 uIU/ML Normal 0.358-3.740 Basic Metabolic Profile 10/15/2020 [facility] ([facility]) [phone] Glucose, Fasting 44 mg/dL Low 70-100 Blood [...] 8.8-10.2 Liver Profile 10/15/2020 [facility] (I nterface) [phone] Ast/Sgot 12 U/L Normal 7-37 Alt/SGPT 22 U/L Normal 12-78 Alkaline Phosphatase 97 U/L Normal 45-117 Bilirubin,Total 0.2 mg/dL Normal 0.2-1.0 Bilirubin,Direct < 0.1 mg/dL Normal 0.0-0.2 Total Protein 6.9 GM/DL Normal 6.4-8.2 Albumin 3.5 GM/DL Normal 3.2-5.2 Albumin/Globulin Ratio 1.0 Low 1.2-2.2 Cardiac Marker Panel 10/15/2020 [facility]) [phone] CPK Creatine Phosphokinase 43 U/L Normal 26-19 2 CK-MB Value Mass < 1.0 NG/ML Normal <3.6 MB/CK Relative Index 2.33 Normal < Or =4 9 Troponin I < 0.02 NG/ML Normal < 0.10 10 CBC With Differential 10/15/2020 [facility]) [phone] White Blood Count 8.1 10 Normal 4.0-10.0 [...] 36.0-66.0 Lymph % 37.8 % Normal 24.0-44.0 [place] % 6.8 % Normal 2.0-8.0 Eos % 3.2 % High 0.0-3.0 Baso % 0.6 % Normal 0.0-1.0 Immature Granulocyte % 0.2 % Normal 0-3.0 Nucleated Red Blood Cell % 0.0 % Normal 0-0 Neutrophils # 4.2 10 Normal 1.5-8.5 Lymph # 3.1 10 Normal 1.5-5.0 [place] # 0.6 10 Normal 0.0-0.8 Eos # 0.3 10 Normal 0.0-0.5 Baso # 0.1 10 Normal 0.0-0.2 Laboratory test [facility] [phone] Bedside Glucose 159 mg/dL High 83-110 Laboratory test finding [facility] [phone] Bedside Glucose 203 mg/dL High 83-110 Istat Chem8+ Panel 10/13/2020 [facility] [phone] iSTAT HCT 40.0 % Normal 38.0-51.0 iSTAT Glucose 179 mg/dL High 70-105 iSTAT Sodium 141 mEq/L Normal 136-145 iSTAT Potassium 3.8 mEq/L Normal 3.5-5.1 iSTAT CA++ 4.2 mg/dL Low 4.5-5.3 iSTAT Chloride 104 mEq/L Normal 98-109 iSTAT Co2 24.0 MM/L Normal 23.0-27.0 iSTAT BUN 28 mg/dL High 8-26 iSTAT Creatinine 0.9 mg/dL Normal 0.6-1.3 Laboratory test finding 10/10/2020 [facility] Glucometer[facility] 214 mg/dL High 65-109 Basic Metabolic Profile [facility] [phone] Glucose, Fasting 58 mg/dL Low 70-100 Blood [...] mg/dL Normal 8.8-10.2 Laboratory test finding 10/03/2020 [facility] (Interface) [phone] Magnesium Level 2.2 mg/dL Normal 1.8-2.4 Thyroid Stimulating Hormone 2.440 uIU/ML Normal 0.358-3.740 Cardiac Marker Panel 10/03/2020 [facility]) [phone] CPK Creatine Phosphokinase 77 U/L Normal 26-19 2 CK-MB Value Mass 1.5 NG/ML Normal <3.6 MB/CK Relative Index 1.95 Normal < Or =4 12 Troponin I < 0.02 NG/ML Normal < 0.10 13 CBC With Differential 10/03/2020 [facility]) [phone] White Blood Count 7.5 10 Normal 4.0-10.0 [...] 36.0-66.0 Lymph % 30.2 % Normal 24.0-44.0 [place] % 6.3 % Normal 2.0-8.0 Eos % 1.6 % Normal 0.0-3.0 Baso % 0.7 % Normal 0.0-1.0 Immature Granulocyte % 0.3 % Normal 0-3.0 Nucleated Red Blood Cell % 0.0 % Normal 0-0 Neutrophils # 4.6 10 Normal 1.5-8.5 Lymph # 2.3 10 Normal 1.5-5.0 [place] # 0.5 10 Normal 0.0-0.8 Eos # 0.1 10 Normal 0.0-0.5 Baso # 0.1 10 Normal 0.0-0.2 [facility] test [facility] [phone] Bedside Glucose 31 mg/dL Critical low 83-110 Laboratory test finding 10/03/[facility] [phone] Bedside Glucose 77 mg/dL Low 83-110 Laboratory test finding 10/03/2020 [facility]) [phone] Bedside Glucose 217 mg/dL High 83-110 Venous Blood Gas 10/03/2020 [facility] (I nterface) [phone] Venous PH 7.375 units Normal 7.330-7.430 Venous [...] eGFR 75 # Calc 16 eGFR Non-Afr. [place]ese 65 # Calc 17 CBC 09/16/2020 [facility] [...] Istat Chem8+ Panel 07/13/2020 [facility] (I [facility]) [phone] iSTAT HCT 35.0 % Low 38.0-51.0 iSTAT Glucose 229 mg/dL High 70-105 iSTAT Sodium 138 mEq/L Normal 136-145 iSTAT Potassium 4.3 mEq/L Normal 3.5-5.1 iSTAT CA++ 4.7 mg/dL Normal 4.5-5.3 iSTAT Chloride 100 mEq/L Normal 98-109 iSTAT Co2 31.0 MM/L High 23.0-27.0 iSTAT BUN 26 mg/dL Normal 8-26 iSTAT Creatinine 1.6 mg/dL High 0.6-1.3 Laboratory test finding 07/13/2020 [facility] (Interface) [phone] Bedside Glucose 177 mg/dL High 83-110 18 Laboratory test finding 07/13/2020 [facility] (Interface) [phone] Bedside Glucose 245 mg/dL High 83-110 Basic Metabolic Profile 07/05/2020 [facility] (Interface) [phone] Glucose, Fasting 113 mg/dL High 70-100 Blood [...] 9.7 mg/dL Normal 8.8-10.2 Blood Culture 07/05/2020 [facility] [phone] Blood Culture No growth after <SEE NOTE> 21 Laboratory test finding 07/05/2020 [facility] (Interface) [phone] Thyroid Stimulating Hormone 7.580 uIU/ML High 0. 358-3.740 Liver Profile 07/05/2020 [facility]) [phone] Ast/Sgot 16 U/L Normal 7-37 Alt/SGPT 21 U/L Normal 12-78 Alkaline Phosphatase 89 U/L Normal 45-117 Bilirubin,Total 0.4 mg/dL Normal 0.2-1.0 Bilirubin,Direct < 0.1 mg/dL Normal 0.0-0.2 Total Protein 7.3 GM/DL Normal 6.4-8.2 Albumin 4.0 GM/DL Normal 3.2-5.2 Albumin/Globulin Ratio 1.2 Normal 1.2-2.2 Cardiac Marker Panel 07/05/2020 [facility] ( Interface) [phone] CPK Creatine Phosphokinase 90 U/L Normal 26-19 2 CK-MB Value Mass 1.6 NG/ML Normal <3.6 MB/CK Relative Index 1.78 Normal < Or =4 22 Troponin I < 0.02 NG/ML Normal < 0.10 23 Laboratory test finding 07/05/2020 [facility] [phone] Ammonia 30 uMOL/L Normal <32 Venous Blood Gas 07/05/2020 [facility]) [phone] Venous PH 7.328 units Low 7.330-7.430 Venous Partial Pressure Co2 56.7 mmHg High 38.0-50.0 Venous Partial Pressure O2 39.1 mmHg Normal 30.0-50.0 Venous Total Co2 30.8 mEq/L High 24.0-28.0 Venous Hco3 29.1 mEq/L High 23.0-27.0 Venous Base Excess 2.0 Normal -2.0-2.0 Venous Standard Hco3 25.6 mEq/L Normal Venous O2 Saturation 69.2 % Normal 60.0-80.0 CBC With Differential 07/05/2020 [facility] (Interface) [phone] White Blood Count 6.0 10 Normal 4.0-10.0 [...] 36.0-66.0 Lymph % 43.0 % Normal 24.0-44.0 [place] % 6.5 % Normal 2.0-8.0 Eos % 5.5 % High 0.0-3.0 Baso % 0.7 % Normal 0.0-1.0 Immature Granulocyte % 0.3 % Normal 0-3.0 Nucleated Red Blood Cell % 0.0 % Normal 0-0 Neutrophils # 2.6 10 Normal 1.5-8.5 Lymph # 2.6 10 Normal 1.5-5.0 [place] # 0.4 10 Normal 0.0-0.8 Eos # 0.3 10 Normal 0.0-0.5 Baso # 0.0 10 Normal 0.0-0.2 Blood Culture 07/05/2020 [facility]) [phone] Blood Culture No growth after <SEE NOTE> 24 Drug Eval [facility] ED Only [facility] [phone] Amphetamines Level Urine NEGATIVE Normal Negativ e Barbiturates Urine NEGATIVE Normal Negative Benzodiazepines Urine NEGATIVE Normal Negative Cannabinoids Urine NEGATIVE Normal Negative Cocaine Metabolite Urine NEGATIVE Normal Negative Methadone Urine NEGATIVE Normal Negative Opiates Urine NEGATIVE Normal Negative Phencyclidine Urine NEGATIVE Normal Negative 25 Ua W/ Reflex To Culture 07/05/2020 [facility] (Interface) [phone] Appearance, Urine RFX CLEAR Normal Clear Color, Urine RFX STRAW Normal Yellow PH,Urine RFX 6.0 units Normal 5.0-9.0 Specific [place] Ur Auto RFX 1.006 Normal 1.002-1.035 Protein, [...] /LPF Normal 0-1 Istat Chem8+ Panel 06/18/2020 [facility]) [phone] iSTAT HCT 40.0 % Normal 38.0-51.0 iSTAT Glucose 201 mg/dL High 70-105 iSTAT Sodium 137 mEq/L Normal 136-145 iSTAT Potassium 4.2 mEq/L Normal 3.5-5.1 iSTAT CA++ 4.7 mg/dL Normal 4.5-5.3 iSTAT Chloride 99 mEq/L Normal 98-109 iSTAT Co2 31.0 MM/L High 23.0-27.0 iSTAT BUN 18 mg/dL Normal 8-26 iSTAT Creatinine 1.0 mg/dL Normal 0.6-1.3 CBC With Differential 06/18/2020 [facility]) [phone] White Blood Count 7.3 10 Normal 4.0-10.0 [...] 36.0-66.0 Lymph % 38.5 % Normal 24.0-44.0 [place] % 5.8 % Normal 2.0-8.0 Eos % 5.1 % High 0.0-3.0 Baso % 0.3 % Normal 0.0-1.0 Immature Granulocyte % 0.4 % Normal 0-3.0 Nucleated Red Blood Cell % 0.0 % Normal 0-0 Neutrophils # 3.6 10 Normal 1.5-8.5 Lymph # 2.8 10 Normal 1.5-5.0 [place] # 0.4 10 Normal 0.0-0.8 Eos # 0.4 10 Normal 0.0-0.5 Baso # 0.0 10 Normal 0.0-0.2 Liver Profile 06/18/2020 [facility] (I nterface) [phone] Ast/Sgot 14 U/L Normal 7-37 Alt/SGPT 22 U/L Normal 12-78 Alkaline Phosphatase 95 U/L Normal 45-117 Bilirubin,Total 0.3 mg/dL Normal 0.2-1.0 Bilirubin,Direct 0.1 mg/dL Normal 0.0-0.2 Total Protein 7.2 GM/DL Normal 6.4-8.2 Albumin 3.9 GM/DL Normal 3.2-5.2 Albumin/Globulin Ratio 1.2 Normal 1.2-2.2 Laboratory test finding 06/18/2020 [facility] [phone] Lipase 311 U/L Normal 73-393 Basic Metabolic [...] Little GFR Left ESRD GFR <15 on [employer]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 [employer] 9 DIAGNOSIS CRITERIA MMB ng/ml Relative Index (RI) NON-AMI < or = 5 N/A GIL ZONE > 5 < or = 4 AMI > 5 > 4 10 Troponin I Reference Interva l for MyoScienceta LOCI: 99th Percentile= 0.00-0.045 ng/ml Risk Stratification: [...] Little GFR Left ESRD GFR <15 on [employer]PECTOR [employer] 12 DIAGNOSIS CRITERIA MMB ng/ml Relative Index (RI) NON-AMI < or = 5 N/A GIL ZONE > 5 < or = 4 AMI > 5 > 4 13 Troponin I Reference Interva l for MyoScienceta LOCI: 99th Percentile= 0.00-0.045 ng/ml Risk Stratification: [...] HCT IS 5% LESS SOURCE FOR DATA: [employer] 1800 OPERATION MANUAL( AUTOMATED BLOOD COUNTS AND [...] Little GFR Left ESRD GFR <15 on INSPECTOR TOYS 20 This specimen has an elevate d [...] 23 Troponin I Reference Interva l for [employer] LOCI: 99th Percentile= 0.00-0.045 ng/ml Risk Stratification: [...] LAB. Procedures Date Code Description Status 11/01/2020 26362 Office/Outpatient Established Mo d MDM 30-39 Min Completed 10/22/2020 43227 Office/Outpatient Established Mo d MDM 30-39 Min Completed 10/18/2020 87029 Office/Outpatient Established Mo d MDM 30-39 Min Completed 10/10/2020 55539 Office/Outpatient Established Mo d MDM 30-39 Min Completed 10/10/2020 42095 Capillary Blood Collection Finge r, Heel, Ear Stick Completed 09/16/2020 45865 Office/Outpatient Established Mo d MDM 30-39 Min Completed 07/23/2020 23074 Office/Outpatient Established Mo d MDM 30-39 Min Completed 07/08/2020 37060 Office/Outpatient Established Mo d MDM 30-39 Min Completed 06/18/2020 46536 Office/Outpatient Established Mo d MDM 30-39 Min Completed 05/24/2020 69021 Office/Outpatient Established Mo d MDM 30-39 Min Completed 11/15/2019 [id number] Mammogram Completed Medical Devices Description No Information Available Encounters Type Date Location Provider Dx Diagnosis Office Visit 11/01/2020 10:40a [facility] Jamison Quiros M. D. E11.649 Type 2 diabetes mellitus with hypoglycemia without coma I10 Essential (primary) hyperten stephanie E78.5 Hyperlipidemia, unspecified Z23 Encounter for immunization Office Visit 10/22/2020 11:00a [facility] Jamison Quiros M. D. E11.649 Type 2 diabetes mellitus with hypoglycemia without coma Office Visit 10/18/2020 11:15a [facility] Jamison Quiros M. D. E11.649 Type 2 diabetes mellitus with hypoglycemia without coma Office Visit 10/10/2020 9:30a [facility] Alissa Vides, FAAFP E16.0 Drug-induced hypoglycemia without coma I10 Essential (primary) hyperten stephanie E11.649 Type 2 diabetes mellitus wit h hypoglycemia without coma Office Visit 09/16/2020 2:00p [facility] Jamison Quiros M. D. R10.9 Unspecified abdominal pain Office Visit 07/23/2020 10:20a [facility] Jamison Quiros M. D. E11.649 Type 2 diabetes mellitus with hypoglycemia without coma Office Visit 07/08/2020 11:15a [facility] Jamison Quiros M. D. E11.649 Type 2 diabetes mellitus with hypoglycemia without coma Office Visit 06/18/2020 11:30a [facility] Jamison Quiros M. D. E11.649 Type 2 diabetes mellitus with hypoglycemia without coma F41.9 Anxiety disorder, unspecifie d Office Visit 05/24/2020 2:00p [facility] Jamison Quiros M. D. E11.649 Type 2 diabetes mellitus with hypoglycemia without coma Assessments Date Code Description Provider 11/01/2020 E11.649 Type 2 diabetes mellitus with hy poglycemia without coma Jamison Quiros M.D. 11/01/2020 I10 Essential (primary) hypertension Jamison Quiros M.D. 11/01/2020 E78.5 Hyperlipidemia, unspecified [facility] Jamison antonio M.D. 11/01/2020 Z23 Encounter for immunization Jamison Du M.D. 10/22/2020 E11.649 Type 2 diabetes mellitus with hy poglycemia without coma Jamison Quiros M.D. 10/18/2020 E11.649 Type 2 diabetes mellitus with hy poglycemia without coma Jamison Quiros M.D. 10/10/2020 E16.0 Drug-induced hypoglycemia withou t coma Ganga Cain D.O., [facility] 10/10/2020 I10 Essential (primary) hypertension Ganga Cain D.O., [facility] 10/10/2020 E11.649 Type 2 diabetes mellitus with hy poglycemia without coma Ganga Cain D.O., [facility] 09/16/2020 R10.9 Unspecified abdominal pain Jamison [...] 11:00 am - Jamison Quiros M.D. at [facility] Functional Status Description No Information Available Mental Status Description No Information Available Referrals Refer to Dr Reason for Referral Status Appt Date Dilia Cain M.D. uncontrolled diabetes, sever al hospitalizations, ER visits for hypoglycemia- eval and rx [facility] [address] [address] [phone]
--- OUTSIDE RECORDS SUMMARY | 2020-12-28 16:28 | CCD | Continuity of Care Document ---
Author Author Elsy QUIROS M.D. Organization Unknown Address [address] [place] [address] Phone [phone] Care Team Providers Care Upholstery Trimmer Name Role Phone Dilia Cain M.D. AUTM [phone] Problems Active Problems Provider Date Essential hypertension [...] Use Allergies, Adverse Reactions, Alerts Active Allergies Criticality [...] to inject insulin daily as directed 1Box M itchJamison starks M.D. 01/24/2020 Blood Glucose Monitoring System W/Device Kit use [...] Mouth Every Day 90taJamison Gómez M.D. 03/08/2019 Indapamide 1.25mg Tablets Take One Tablet By Mouth Every Day 90tabs Jamison Quiros M.D. 07/08 Dulera 100-5mcg/Act Aerosol 2 inhalation by mouth twice a day, rinse mouth afterward. 26.4gm Jackson Jamison blair M.D. 07/08/2018 Lovastatin 40mg Tablets take two tablets by mouth every day 30tabs Jamison Quiros M.D. Lisinopril 10mg Tablets Take One Tablet By Mouth Every Day 90tabs Jamison Quiros M.D. 00 Potassium Chloride ER 10Meq Capsul es ER Take One Capsule By Mouth Every Day 90capJere Hernandez M.D. Combivent Respimat 20-100mcg/Act A erosol inhale one puff as needed 12gm Jamison Quiros M.D . Dicyclomine HCL 20mg Tablets 1-2 by mouth three times a day prn Unknown Dok 100mg Capsules 1 b y mouth twice a day Unknown Aspirin 81mg Tablets DR 1 by mouth every day Unknown History Medications Trulicity 1.5mg/0.5ML Solution Pen -Inject inject sc Once per Week on Jere Quiros M.D. 10/18/2020 - 10/22/2020 Immunizations CPT Code Status Date Vaccine Lot # [id number] Given 11/06/2019 Influenza Virus Vaccine, Quadrivalent, Slit Virus, Im Use 3Y & Up [id number] Given 01/04/2019 Influenza Virus Vaccine, Quadrivalent, Slit Virus, Im Use 3Y & Up [id number] Vital Signs Date Vital Result Comment 10/22/2020 10:53am BP Systolic 140 mmHg BP Diastolic 64 mmHg Body Temperature 97.0 F Heart Rate 72 /min Respiratory Rate 18 /min Height 60.5 inches 5'0.50" Weight 172.00 lb Cascade Body Weight 100 lb BMI (Body Mass Index) 33.0 kg/m2 O2 % BldC Oximetry 98 % 10/18/2020 11:10am BP Systolic 124 mmHg BP Diastolic 84 mmHg Body Temperature 98.4 F Heart Rate 78 /min Respiratory Rate 18 /min Height 60.5 inches 5'0.50" Weight 173.00 lb [place]ascade Body Weight 100 lb BMI (Body Mass Index) 33.2 kg/m2 O2 % BldC Oximetry 97 % Results Test Acquired Date Facility Test Result H/L Range Note Laboratory test finding 10/15/2020 [facility] ([facility]) [phone] Bedside Glucose 159 mg/dL High 83-110 Laboratory test finding 10/15/2020 [facility] ([facility]) [phone] Bedside Glucose 203 mg/dL High 83-110 Laboratory test finding 10/15/2020 [facility] ([facility]) [phone] Osmolality Serum 290 MOSM/KG Normal 280-301 Thyroid Stimulating Hormone 2.430 uIU/ML Normal 0.358-3.740 Basic Metabolic Profile 10/15/2020 [facility] (Interface) [phone] Glucose, Fasting 44 mg/dL Low 70-100 Blood [...] 9.2 mg/dL Normal 8.8-10.2 Liver Profile 10/15/2020 [facility] ([facility]) [phone] Ast/Sgot 12 U/L Normal 7-37 Alt/SGPT 22 U/L Normal 12-78 Alkaline Phosphatase 97 U/L Normal 45-117 Bilirubin,Total 0.2 mg/dL Normal 0.2-1.0 Bilirubin,Direct < 0.1 mg/dL Normal 0.0-0.2 Total Protein 6.9 GM/DL Normal 6.4-8.2 Albumin 3.5 GM/DL Normal 3.2-5.2 Albumin/Globulin Ratio 1.0 Low 1.2-2.2 Cardiac Marker Panel 10/15/2020 [facility] ( Interface) [phone] CPK Creatine Phosphokinase 43 U/L Normal 26-19 2 CK-MB Value Mass < 1.0 NG/ML Normal <3.6 MB/CK Relative Index 2.33 Normal < Or =4 2 Troponin I < 0.02 NG/ML Normal < 0.10 3 CBC With Differential 10/15/2020 [facility] (Interface) [phone] White Blood Count 8.1 10 Normal 4.0-10.0 [...] 36.0-66.0 Lymph % 37.8 % Normal 24.0-44.0 [place] % 6.8 % Normal 2.0-8.0 Eos % 3.2 % High 0.0-3.0 Baso % 0.6 % Normal 0.0-1.0 Immature Granulocyte % 0.2 % Normal 0-3.0 Nucleated Red Blood Cell % 0.0 % Normal 0-0 Neutrophils # 4.2 10 Normal 1.5-8.5 Lymph # 3.1 10 Normal 1.5-5.0 [place] # 0.6 10 Normal 0.0-0.8 Eos # 0.3 10 Normal 0.0-0.5 Baso # 0.1 10 Normal 0.0-0.2 Laboratory test finding [facility] [phone] Bedside Glucose 43 mg/dL Low 83-110 Istat Chem8+ Panel 10/13/2020 [facility] [phone] iSTAT HCT 40.0 % Normal 38.0-51.0 iSTAT Glucose 179 mg/dL High 70-105 iSTAT Sodium 141 mEq/L Normal 136-145 iSTAT Potassium 3.8 mEq/L Normal 3.5-5.1 iSTAT CA++ 4.2 mg/dL Low 4.5-5.3 iSTAT Chloride 104 mEq/L Normal 98-109 iSTAT Co2 24.0 MM/L Normal 23.0-27.0 iSTAT BUN 28 mg/dL High 8-26 iSTAT Creatinine 0.9 mg/dL Normal 0.6-1.3 Laboratory test finding 10/10/2020 [facility] 214 mg/dL High 65-109 Laboratory test finding [facility]/03[facility] [phone] Bedside Glucose 217 mg/dL High 83-110 Laboratory test finding [facility]/03[facility] [phone] Bedside Glucose 77 mg/dL Low 83-110 Laboratory test finding 10/03/2020 [facility] (Interface) [phone] Bedside Glucose 31 mg/dL Critical low 83-110 Venous Blood Gas 10/03/2020 [facility] ([facility]) [phone] Venous PH 7.375 units Normal 7.330-7.430 Venous Partial Pressure Co2 44.2 mmHg Normal 38.0-50.0 Venous Partial Pressure O2 41.4 mmHg Normal 30.0-50.0 Venous Total Co2 26.6 mEq/L Normal 24.0-28.0 Venous Hco3 25.3 mEq/L Normal 23.0-27.0 Venous Base Excess -0.2 Normal -2.0-2.0 Venous Standard Hco3 23.9 mEq/L Normal Venous O2 Saturation 77.9 % Normal 60.0-80.0 CBC With Differential 10/03/2020 [facility] (Interface) [phone] White Blood Count 7.5 10 Normal 4.0-10.0 [...] 36.0-66.0 Lymph % 30.2 % Normal 24.0-44.0 [place] % 6.3 % Normal 2.0-8.0 Eos % 1.6 % Normal 0.0-3.0 Baso % 0.7 % Normal 0.0-1.0 Immature Granulocyte % 0.3 % Normal 0-3.0 Nucleated Red Blood Cell % 0.0 % Normal 0-0 Neutrophils # 4.6 10 Normal 1.5-8.5 Lymph # 2.3 10 Normal 1.5-5.0 [place] # 0.5 10 Normal 0.0-0.8 Eos # 0.1 10 Normal 0.0-0.5 Baso # 0.1 10 Normal 0.0-0.2 Cardiac Marker Panel 10/03/2020 [facility] ( Interface) [phone] CPK Creatine Phosphokinase 77 U/L Normal 26-19 2 CK-MB Value Mass 1.5 NG/ML Normal <3.6 MB/CK Relative Index 1.95 Normal < Or =4 4 Troponin I < 0.02 NG/ML Normal < 0.10 5 Basic Metabolic Profile 10/03/2020 [facility] (Interface) [phone] Glucose, Fasting 58 mg/dL Low 70-100 Blood [...] mg/dL Normal 8.8-10.2 Laboratory test finding 10/03/2020 [facility] (Interface) [phone] Magnesium Level 2.2 mg/dL Normal 1.8-2.4 Thyroid [...] eGFR 75 # Calc 9 eGFR Non-Afr. Portuguese 65 # Calc 10 CBC 09/16/2020 [facility]/Inhouse [...] 9.0 - 13.0 Istat Chem8+ Panel 07/13/2020 [facility] ([facility]) [phone] iSTAT HCT 35.0 % Low 38.0-51.0 iSTAT Glucose 229 mg/dL High 70-105 iSTAT Sodium 138 mEq/L Normal 136-145 iSTAT Potassium 4.3 mEq/L Normal 3.5-5.1 iSTAT CA++ 4.7 mg/dL Normal 4.5-5.3 iSTAT Chloride 100 mEq/L Normal 98-109 iSTAT Co2 31.0 MM/L High 23.0-27.0 iSTAT BUN 26 mg/dL Normal 8-26 iSTAT Creatinine 1.6 mg/dL High 0.6-1.3 Laboratory test finding 07/13/2020 [facility] (Interface) [phone] Bedside Glucose 245 mg/dL High 83-110 Laboratory test finding 07/13/2020 [facility] (Interface) [phone] Bedside Glucose 177 mg/dL High 83-110 11 Ua W/ Reflex To Culture 07/05/2020 [facility] (Interface) [phone] Appearance, Urine RFX CLEAR Normal Clear Color, Urine RFX STRAW Normal Yellow PH,Urine RFX 6.0 units Normal 5.0-9.0 Specific [place] Ur Auto RFX 1.006 Normal 1.002-1.035 Protein, [...] 0 /LPF Normal 0-1 Blood Culture 07/05/2020 [facility] ([facility]) [phone] Blood Culture No growth after <SEE NOTE> 12 Laboratory test finding 07/05/2020 [facility] (Interface) [phone] Thyroid Stimulating Hormone 7.580 uIU/ML High 0. 358-3.740 Basic Metabolic Profile 07/05/2020 [facility] (Interface) [phone] Glucose, Fasting 113 mg/dL High 70-100 Blood [...] 9.7 mg/dL Normal 8.8-10.2 Liver Profile 07/05/2020 [facility]) [phone] Ast/Sgot 16 U/L Normal 7-37 Alt/SGPT 21 U/L Normal 12-78 Alkaline Phosphatase 89 U/L Normal 45-117 Bilirubin,Total 0.4 mg/dL Normal 0.2-1.0 Bilirubin,Direct < 0.1 mg/dL Normal 0.0-0.2 Total Protein 7.3 GM/DL Normal 6.4-8.2 Albumin 4.0 GM/DL Normal 3.2-5.2 Albumin/Globulin Ratio 1.2 Normal 1.2-2.2 Laboratory test finding 07/05/2020 [facility] (Interface) [phone] Ammonia 30 uMOL/L Normal <32 Drug Eval Toxicology ED Only 07/05/2020 [facility] (Interface) [phone] Amphetamines Level Urine NEGATIVE Normal Negativ e Barbiturates Urine NEGATIVE Normal Negative Benzodiazepines Urine NEGATIVE Normal Negative Cannabinoids Urine NEGATIVE Normal Negative Cocaine Metabolite Urine NEGATIVE Normal Negative Methadone Urine NEGATIVE Normal Negative Opiates Urine NEGATIVE Normal Negative Phencyclidine Urine NEGATIVE Normal Negative 15 Blood Culture 07/05/2020 [facility]) [phone] Blood Culture No growth after <SEE NOTE> 16 Venous Blood Gas 07/05/2020 [facility]) [phone] Venous PH 7.328 units Low 7.330-7.430 Venous Partial Pressure Co2 56.7 mmHg High 38.0-50.0 Venous Partial Pressure O2 39.1 mmHg Normal 30.0-50.0 Venous Total Co2 30.8 mEq/L High 24.0-28.0 Venous Hco3 29.1 mEq/L High 23.0-27.0 Venous Base Excess 2.0 Normal -2.0-2.0 Venous Standard Hco3 25.6 mEq/L Normal Venous O2 Saturation 69.2 % Normal 60.0-80.0 Cardiac Marker Panel 07[facility]05/[facility] [phone] CPK Creatine Phosphokinase 90 U/L Normal 26-19 2 CK-MB Value Mass 1.6 NG/ML Normal <3.6 MB/CK Relative Index 1.78 Normal < Or =4 17 Troponin I < 0.02 NG/ML Normal < 0.10 18 CBC With Differential 07/05/2020 [facility]) [phone] White Blood Count 6.0 10 Normal 4.0-10.0 [...] 36.0-66.0 Lymph % 43.0 % Normal 24.0-44.0 [place] % 6.5 % Normal 2.0-8.0 Eos % 5.5 % High 0.0-3.0 Baso % 0.7 % Normal 0.0-1.0 Immature Granulocyte % 0.3 % Normal 0-3.0 Nucleated Red Blood Cell % 0.0 % Normal 0-0 Neutrophils # 2.6 10 Normal 1.5-8.5 Lymph # 2.6 10 Normal 1.5-5.0 [place] # 0.4 10 Normal 0.0-0.8 Eos # 0.3 10 Normal 0.0-0.5 Baso # 0.0 10 Normal 0.0-0.2 Istat Chem8+ Panel 06/18/2020 [facility] ([facility]) [phone] iSTAT HCT 40.0 % Normal 38.0-51.0 iSTAT Glucose 201 mg/dL High 70-105 iSTAT Sodium 137 mEq/L Normal 136-145 iSTAT Potassium 4.2 mEq/L Normal 3.5-5.1 iSTAT CA++ 4.7 mg/dL Normal 4.5-5.3 iSTAT Chloride 99 mEq/L Normal 98-109 iSTAT Co2 31.0 MM/L High 23.0-27.0 iSTAT BUN 18 mg/dL Normal 8-26 iSTAT Creatinine 1.0 mg/dL Normal 0.6-1.3 CBC With Differential 06/18/2020 [facility]) [phone] White Blood Count 7.3 10 Normal 4.0-10.0 [...] 36.0-66.0 Lymph % 38.5 % Normal 24.0-44.0 [place] % 5.8 % Normal 2.0-8.0 Eos % 5.1 % High 0.0-3.0 Baso % 0.3 % Normal 0.0-1.0 Immature Granulocyte % 0.4 % Normal 0-3.0 Nucleated Red Blood Cell % 0.0 % Normal 0-0 Neutrophils # 3.6 10 Normal 1.5-8.5 Lymph # 2.8 10 Normal 1.5-5.0 [place] # 0.4 10 Normal 0.0-0.8 Eos # 0.4 10 Normal 0.0-0.5 Baso # 0.0 10 Normal 0.0-0.2 Liver Profile 06/18/2020 [facility] ([facility]) [phone] Ast/Sgot 14 U/L Normal 7-37 Alt/SGPT 22 U/L Normal 12-78 Alkaline Phosphatase 95 U/L Normal 45-117 Bilirubin,Total 0.3 mg/dL Normal 0.2-1.0 Bilirubin,Direct 0.1 mg/dL Normal 0.0-0.2 Total Protein 7.2 GM/DL Normal 6.4-8.2 Albumin 3.9 GM/DL Normal 3.2-5.2 Albumin/Globulin Ratio 1.2 Normal 1.2-2.2 Laboratory test finding 06/18/2020 [facility] (Interface) [phone] Lipase 311 U/L Normal 73-393 Basic Metabolic [...] 9.6 mg/dL 8.7-10.3 Laboratory test finding 05/17/2020 [facility] (Interface) [phone] Bedside Glucose 149 mg/dL High 83-110 Laboratory test finding 05/17/2020 [facility] (Interface) [phone] iSTAT Troponin 0.01 NG/ML Normal 0.00-0.08 Istat Chem8+ Panel 05/17/2020 [facility] [phone] iSTAT HCT 51.0 % Normal 38.0-51.0 iSTAT Glucose 81 mg/dL Normal 70-105 iSTAT Sodium 140 mEq/L Normal 136-145 iSTAT Potassium 3.8 mEq/L Normal 3.5-5.1 iSTAT CA++ 5.2 mg/dL Normal 4.5-5.3 iSTAT Chloride 99 mEq/L Normal 98-109 iSTAT Co2 32.0 MM/L High 23.0-27.0 iSTAT BUN 33 mg/dL High 8-26 iSTAT Creatinine 1.3 mg/dL Normal 0.6-1.3 CBC With Differential 05/17/2020 [facility] (Interface) [phone] White Blood Count 13.1 10 High 4.0-10.0 [...] 36.0-66.0 Lymph % 6.5 % Low 24.0-44.0 [place] % 3.8 % Normal 2.0-8.0 Eos % 0.3 % Normal 0.0-3.0 Baso % 0.2 % Normal 0.0-1.0 Immature Granulocyte % 0.5 % Normal 0-3.0 Nucleated Red Blood Cell % 0.0 % Normal 0-0 Neutrophils # 11.6 10 High 1.5-8.5 Lymph # 0.9 10 Low 1.5-5.0 [place] # 0.5 10 Normal 0.0-0.8 Eos # 0.0 10 Normal 0.0-0.5 Baso # 0.0 10 Normal 0.0-0.2 Liver Profile 05/17/2020 [facility] [phone] Ast/Sgot 55 U/L High 7-37 Alt/SGPT 24 U/L Normal 12-78 Alkaline Phosphatase 100 U/L Normal 45-117 Bilirubin,Total 0.3 mg/dL Normal 0.2-1.0 Bilirubin,Direct < 0.1 mg/dL Normal 0.0-0.2 Total Protein 9.0 GM/DL High 6.4-8.2 Albumin 4.6 GM/DL Normal 3.2-5.2 Albumin/Globulin Ratio 1.0 Low 1.2-2.2 Basic Metabolic Profile 05/17/2020 [facility] ([facility]) [phone] Glucose, Fasting 78 mg/dL Normal 70-100 Blood [...] mg/dL Normal 8.8-10.2 Laboratory test finding 05/17/2020 [facility] ([facility]) [phone] Thyroid Stimulating Hormone 3.770 uIU/ML High 0. 358-3.740 Laboratory test finding 05/10/2020 [facility] ([facility]) [phone] Bedside Glucose 149 mg/dL High 83-110 Laboratory test finding 05/10/2020 [facility] ([facility]) [phone] Bedside Glucose 140 mg/dL High 83-110 1 Units are mL/min/1.73 m2 Chronic Kidney Disease Staging per NKF: Stage I & II GFR >=60 Normal to Mildly Decreased Stage III GFR 30-59 Moderately Decreased Stage IV GFR 15-29 Severely Decreased Stage V GFR <15 Very Little GFR Left ESRD GFR <15 on HEALTH INFORMATION SYSTEMS TECHNICIAN 2 DIAGNOSIS CRITERIA MMB ng/ml Relative Index (RI) NON-AMI < or = 5 N/A GIL ZONE > 5 < or = 4 AMI > 5 > 4 3 Troponin I Reference Interva l for [place] LOCI: 99th Percentile= 0.00-0.045 ng/ml Risk Stratification: [...] Troponin I Reference Interva l for Siemens [place] LOCI: 99th Percentile= 0.00-0.045 ng/ml Risk Stratification: [...] Little GFR Left ESRD GFR <15 on HEALTH INFORMATION SYSTEMS TECHNICIAN 7 Prediabetes: 5.7 - 6.4 Diabetes: >6.4 [...] Little GFR Left ESRD GFR <15 on HEALTH INFORMATION SYSTEMS TECHNICIAN 14 This specimen has an elevate d [...] 18 Troponin I Reference Interva l for [place] LOCI: 99th Percentile= 0.00-0.045 ng/ml Risk Stratification: [...] Little GFR Left ESRD GFR <15 on HEALTH INFORMATION SYSTEMS TECHNICIAN 20 Testing was performed on a h emolysed specimen. Suggest recollection of specimen for more accurate test results. Procedures Date Code Description Status 10/22/2020 83732 Office/Outpatient Established Mo d MDM 30-39 Min Completed 10/18/2020 95591 Office/Outpatient Established Mo d MDM 30-39 Min Completed 10/10/2020 36409 Office/Outpatient Established Mo d MDM 30-39 Min Completed 10/10/2020 33865 Capillary Blood Collection Finge r, Heel, Ear Stick Completed 09/16/202055206 Office/Outpatient Established Mo d MDM 30-39 Min Completed 07/23/2020 60209 Office/Outpatient Established Mo d MDM 30-39 Min Completed 07/08/2020 38939 Office/Outpatient Established Mo d MDM 30-39 Min Completed 06/18/2020 53324 Office/Outpatient Established Mo d MDM 30-39 Min Completed 05/24/2020 24148 Office/Outpatient Established Mo d MDM 30-39 Min Completed 05/03/2020 32668 Office/Outpatient Established Mo d MDM 30-39 Min Completed 11/15/2019 [id number] Mammogram Completed Medical Devices Description No Information Available Encounters Type Date Location Provider Dx Diagnosis Office Visit 10/22/2020 11:00a [facility] Jamison Quiros M. D. E11.649 Type 2 diabetes mellitus with hypoglycemia without coma Office Visit 10/18/2020 11:15a [place] [facility] Jamison Quiros M. D. E11.649 Type 2 diabetes mellitus with hypoglycemia without coma Office Visit 10/10/2020 9:30a [place] [facility] Alissa Vides, FAAFP E16.0 Drug-induced hypoglycemia without coma I10 Essential (primary) hyperten stephanie E11.649 Type 2 diabetes mellitus wit h hypoglycemia without coma Office Visit 09/16/2020 2:00p [place] [facility] Jamison Quiros M. D. R10.9 Unspecified abdominal pain Office Visit 07/23/2020 10:20a [place] [facility] Jamison Quiros M. D. E11.649 Type 2 diabetes mellitus with hypoglycemia without coma Office Visit 07/08/2020 11:15a [place] [facility] Jamison Quiros M. D. E11.649 Type 2 diabetes mellitus with hypoglycemia without coma Office Visit 06/18/2020 11:30a [place] [facility] Jamison Quiros M. D. E11.649 Type 2 diabetes mellitus with hypoglycemia without coma F41.9 Anxiety disorder, unspecifie d Office Visit 05/24/2020 2:00p [place] [facility] Jamison Quiros M. D. E11.649 Type 2 diabetes mellitus with hypoglycemia without coma Office Visit 05/03/2020 3:00p [place] [facility] Jamison Quiros M. D. Z01.810 Encounter for preprocedural cardiovascular examination Assessments Date Code Description Provider 10/22/2020 E11.649 Type 2 diabetes mellitus with [...] examination Jamison Quiros M.D. Plan of Treatment Future Appointment(s):* 11/01/2020 10:40 am - Jamison Quiros M.D. at [place] [facility] Functional Status Description No Information Available Mental Status Description No Information Available Referrals Refer to Reason for Referral Status Appt Date Dilia Cain M.D. uncontrolled diabetes, sever al hospitalizations, ER visits for hypoglycemia- eval and rx Sent [facility] [place] [address] [phone]
--- OUTSIDE RECORDS SUMMARY | 2020-12-28 16:28 | CCD | Continuity of Care Document ---
Author Author Elsy LOWRY MD Organization Unknown Address [address] [place] [address] , [facility] [address] [place] [address] Phone [phone] Care Team Providers Care Master Data Analyst Name Role Phone Andre Acevedo M.D. AUTM Jamison Quiros M.D. AUTM [phone] Evan Carrion M.D. AUTM Jamison Quiros M.D. AUTM [phone] AUTM Unavailable Problems Active Problems Provider Date [...] 2 Times A Day Unknown History Medications Louise 5-325mg Tablets 1 by mouth tid prn pain 12tabs Richard Barnes MD - 09/02/2020 Dok 100mg Capsules Take One Capsule By Mouth Twice A Day Before Meals Avoid If Having Diarrhea 180caps Evan Carrion M.D. 04/30/2020 - 09/02/2020 Immunizations Description No Information Available Vital Signs Date Vital Result Comment 10/17/2020 1:33pm Body Temperature 97.4 F 09/12/2020 11:24am BP Systolic 155 mmHg BP Diastolic 78 mmHg Heart Rate 73 /min Height 59 inches 4'11" Weight 181.00 lb BMI (Body Mass Index) 36.6 kg/m2 [place] Body Weight 100 lb Weight 82.102 kg BSA (Body Surface Area) 1.77 m2 Results Test Acquired Date Facility Test Result H/L Range Note Laboratory test finding 05/10/2020 [facility] [address] [place] [address] [id number] [phone] Bedside Glucose 149 mg/dL High 83-110 Laboratory test finding 05/10/2020 [facility] [address] [place] [address] [phone] Pathology Request For Service (SEE NOTE) 1 Laboratory test finding 05/10/2020 [facility] [address] [place] [address] [phone] Bedside Glucose 140 mg/dL High 83-110 1 [...] to reveal benign adipose tissue and skin. Production Supv sections submitted in one. -OA 05/13/2020 - 1419 Signed KASSY KOROMA MD 05/14/2020 1040 Procedures Date Code Description Status 10/17/2020 58011 Office/Outpatient New Low MDM 30 -44 Minutes Completed 09/12/2020 46546 Office/Outpatient Established Lo w MDM 20-29 Min Completed 05/10/2020 61588 Excision Tumor, Soft Tissue, Abdominal Wall, Subcutaneous, < 3 CM Completed 05/10/2020 72993 Excision Tumor, Soft Tissue, Abdominal Wall, Subcutaneous, < 3 CM Completed Medical Devices Description No Information Available Encounters Type Date Location Provider Dx Diagnosis Office Visit 10/17/2020 1:45p [facility] Jamison Lowry MD S50.12xA Contusion of left forearm, initial encou nter S63.502A Unspecified sprain of left w rist, initial encounter W19.xxxA Unspecified fall, initial en counter Office Visit 09/12/2020 10:45a [facility] Huey Barnes MD E88.1 Lipodystrophy, not elsewhere classified Office Visit 06/06/2020 9:30a [facility] Huey Barnes MD E88.1 Lipodystrophy, not elsewhere classified M79.81 Nontraumatic hematoma of sof t tissue Z48.89 Encounter for other specifie d surgical aftercare Office Visit 05/23/2020 9:45a [facility] Huey Barnes MD E88.1 Lipodystrophy, not elsewhere classified D17.9 Benign lipomatous neoplasm, unspecified Z48.817 Encntr for surgical aftcr fo l surgery on the skin, subcu Assessments Date Code Description Provider 10/17/2020 S50.12xA Contusion of left forearm, initi al encounter Jamison Lowry MD 10/17/2020 S63.502A Unspecified sprain of left wrist , initial encounter Jamison Lowry MD 10/17/2020 W19.xxxA Unspecified fall, initial encoun ter Jamison Lowry MD 09/12/2020 E88.1 Lipodystrophy, not elsewhere cla ssified Richard Barnes MD 06/06/2020 E88.1 Lipodystrophy, not elsewhere cla ssified Richard Barnes MD 06/06/2020 M79.81 Subcutaneous hematoma Richard Barnes MD 06/06/2020 Z48.89 Encounter for other specified shannon rgical aftercare Richard Barnes MD 05/23/2020 E88.1 Lipodystrophy, not elsewhere cla ssified Richard Barnes MD 05/23/2020 D17.9 Benign lipomatous neoplasm, unsp ecified Richard Barnes MD 05/23/2020 Z48.817 Encounter for surgic al aftercare following surgery on the skin and subcutaneous tissue Richard Barnes MD 05/10/2020 D17.9 Benign lipomatous neoplasm, unsp ecified Richard Barnes MD Plan of Treatment Future Appointment(s):* 10/29/2020 11:15 am - Richard Barnes MD at [facility] 10/17/2020 - Jamison Lowry MD* S50.12xA Contusion of left forearm, initial encounter * S63.502A Unspecified sprain of left wrist, initial encounter * W19.xxxA Unspecified fall, initial encounter Functional Status Description No Information Available Mental Status Description No Information Available Referrals Description No Information Available
--- OUTSIDE RECORDS SUMMARY | 2020-12-28 16:28 | CCD | Continuity of Care Document ---
Author Author Elsy QUIROS M.D. Organization Unknown Address [address] [place] [id number] Phone [phone] Care Team Providers Care Student Life Vice President Name Role Phone Dilia Cain M.D. AUTM [phone] Problems Active Problems Provider Date Essential hypertension [...] One Tablet By Mouth Every Day 90tabs Jamiosn Quiros M.D. 00 Potassium Chloride ER 10Meq [...] CPT Code Status Date Vaccine Lot # 61893 Given 11/06/2019 Influenza Virus Vaccine, Quadrivalent, Slit Virus, Im Use 3Y & Up [id number] Given 01/04/2019 Influenza Virus Vaccine, Quadrivalent, Slit Virus, Im Use 3Y & Up [id number] Vital Signs Date Vital Result Comment 10/22/2020 10:53am BP Systolic 140 mmHg BP Diastolic 64 mmHg Body Temperature 97.0 F Heart Rate 72 /min Respiratory Rate 18 /min Height 60.5 inches 5'0.50" Weight 172.00 lb [place] Body Weight 100 lb BMI (Body Mass Index) 33.0 kg/m2 O2 % BldC Oximetry 98 % 10/18/2020 11:10am BP Systolic 124 mmHg BP Diastolic 84 mmHg Body Temperature 98.4 F Heart Rate 78 /min Respiratory Rate 18 /min Height 60.5 inches 5'0.50" Weight 173.00 lb [place] Body Weight 100 lb BMI (Body Mass Index) 33.2 kg/m2 O2 % BldC Oximetry 97 % Results Test Acquired Date Facility Test Result H/L Range Note Laboratory test finding 10/15/2020 [facility] (Interface) [phone] Bedside Glucose 159 mg/dL High 83-110 Laboratory test finding 10/15/2020 [facility] (Interface) [phone] Bedside Glucose 203 mg/dL High 83-110 Laboratory test finding 10/15/2020 [facility] (Interface) [phone] Osmolality Serum 290 MOSM/KG Normal 280-301 Thyroid Stimulating Hormone 2.430 uIU/ML Normal 0.358-3.740 Basic Metabolic Profile 10/15/2020 [facility] (Interface) [phone] Glucose, Fasting 44 mg/dL Low 70-100 Blood [...] 9.2 mg/dL Normal 8.8-10.2 Liver Profile 10/15/2020 [facility] (I [facility]face) [phone] Ast/Sgot 12 U/L Normal 7-37 Alt/SGPT 22 U/L Normal 12-78 Alkaline Phosphatase 97 U/L Normal 45-117 Bilirubin,Total 0.2 mg/dL Normal 0.2-1.0 Bilirubin,Direct < 0.1 mg/dL Normal 0.0-0.2 Total Protein 6.9 GM/DL Normal 6.4-8.2 Albumin 3.5 GM/DL Normal 3.2-5.2 Albumin/Globulin Ratio 1.0 Low 1.2-2.2 Cardiac Marker Panel 10/15/2020 [facility] ( Interface) [phone] CPK Creatine Phosphokinase 43 U/L Normal 26-19 2 CK-MB Value Mass < 1.0 NG/ML Normal <3.6 MB/CK Relative Index 2.33 Normal < Or =4 2 Troponin I < 0.02 NG/ML Normal < 0.10 3 CBC With Differential 10/15/2020 [facility] (Interface) [phone] White Blood Count 8.1 10 Normal 4.0-10.0 [...] 36.0-66.0 Lymph % 37.8 % Normal 24.0-44.0 [place] % 6.8 % Normal 2.0-8.0 Eos % 3.2 % High 0.0-3.0 Baso % 0.6 % Normal 0.0-1.0 Immature Granulocyte % 0.2 % Normal 0-3.0 Nucleated Red Blood Cell % 0.0 % Normal 0-0 Neutrophils # 4.2 10 Normal 1.5-8.5 Lymph # 3.1 10 Normal 1.5-5.0 [place] # 0.6 10 Normal 0.0-0.8 Eos # 0.3 10 Normal 0.0-0.5 Baso # 0.1 10 Normal 0.0-0.2 Laboratory test finding [facility] [phone] Bedside Glucose 43 mg/dL Low 83-110 Istat Chem8+ Panel 10/13/2020 [facility] [phone] iSTAT HCT 40.0 % Normal 38.0-51.0 iSTAT [...] mg/dL High 65-109 Laboratory test finding 10/03/2020 [facility] [phone] Bedside Glucose 217 mg/dL High 83-110 Laboratory test finding 10/03/2020 [facility] ([facility]) [phone] Bedside Glucose 77 mg/dL Low 83-110 Laboratory test finding 10/03/2020 [facility] (Interface) [phone] Bedside Glucose 31 mg/dL Critical low 83-110 Venous Blood Gas 10/03/2020 [facility] (I [facility]terface) [phone] Venous PH 7.375 units Normal 7.330-7.430 Venous Partial Pressure Co2 44.2 mmHg Normal 38.0-50.0 Venous Partial Pressure O2 41.4 mmHg Normal 30.0-50.0 Venous Total Co2 26.6 mEq/L Normal 24.0-28.0 Venous Hco3 25.3 mEq/L Normal 23.0-27.0 Venous Base Excess -0.2 Normal -2.0-2.0 Venous Standard Hco3 23.9 mEq/L Normal Venous O2 Saturation 77.9 % Normal 60.0-80.0 CBC With Differential 10/03/2020 [facility] (Interface) [phone] White Blood Count 7.5 10 Normal 4.0-10.0 [...] 36.0-66.0 Lymph % 30.2 % Normal 24.0-44.0 [place] % 6.3 % Normal 2.0-8.0 Eos % 1.6 % Normal 0.0-3.0 Baso % 0.7 % Normal 0.0-1.0 Immature Granulocyte % 0.3 % Normal 0-3.0 Nucleated Red Blood Cell % 0.0 % Normal 0-0 Neutrophils # 4.6 10 Normal 1.5-8.5 Lymph # 2.3 10 Normal 1.5-5.0 [place] # 0.5 10 Normal 0.0-0.8 Eos # 0.1 10 Normal 0.0-0.5 Baso # 0.1 10 Normal 0.0-0.2 Cardiac Marker Panel 10/03/2020 [facility] ( Interface) [phone] CPK Creatine Phosphokinase 77 U/L Normal 26-19 2 CK-MB Value Mass 1.5 NG/ML Normal <3.6 MB/CK Relative Index 1.95 Normal < Or =4 4 Troponin I < 0.02 NG/ML Normal < 0.10 5 Basic Metabolic Profile 10/03/2020 [facility] (Interface) [phone] Glucose, Fasting 58 mg/dL Low 70-100 Blood [...] mg/dL Normal 8.8-10.2 Laboratory test finding 10/03/2020 [facility] (Interface) [phone] Magnesium Level 2.2 mg/dL Normal 1.8-2.4 Thyroid [...] eGFR 75 # Calc 9 eGFR Non-Afr. Sudanese 65 # Calc 10 CBC 09/16/2020 [facility]/Inhouse [...] 9.0 - 13.0 Istat Chem8+ Panel 07/13/2020 [facility] ([facility] [place]) [phone] iSTAT HCT 35.0 % Low 38.0-51.0 iSTAT Glucose 229 mg/dL High 70-105 iSTAT Sodium 138 mEq/L Normal 136-145 iSTAT Potassium 4.3 mEq/L Normal 3.5-5.1 iSTAT CA++ 4.7 mg/dL Normal 4.5-5.3 iSTAT Chloride 100 mEq/L Normal 98-109 iSTAT Co2 31.0 MM/L High 23.0-27.0 iSTAT BUN 26 mg/dL Normal 8-26 iSTAT Creatinine 1.6 mg/dL High 0.6-1.3 Laboratory test finding 07/13/2020 [facility] (Interface) [phone] Bedside Glucose 245 mg/dL High 83-110 Laboratory test finding 07/13/2020 [facility] (Interface) [phone] Bedside Glucose 177 mg/dL High 83-110 11 Ua W/ Reflex To Culture 07/05/2020 [facility] (Interface) [phone] Appearance, Urine RFX CLEAR Normal Clear Color, Urine RFX STRAW Normal Yellow PH,Urine RFX 6.0 units Normal 5.0-9.0 Specific [place] Ur Auto RFX 1.006 Normal 1.002-1.035 Protein, [...] 0 /LPF Normal 0-1 Blood Culture 07/05/2020 [facility] ([facility] [place]) [phone] Blood Culture No growth after <SEE NOTE> 12 Laboratory test finding 07/05/2020 [facility] (Interface) [phone] Thyroid Stimulating Hormone 7.580 uIU/ML High 0. 358-3.740 Basic Metabolic Profile 07/05/2020 [facility] (Interface) [phone] Glucose, Fasting 113 mg/dL High 70-100 Blood [...] 9.7 mg/dL Normal 8.8-10.2 Liver Profile 07/05/2020 [facility]) [phone] Ast/Sgot 16 U/L Normal 7-37 Alt/SGPT 21 U/L Normal 12-78 Alkaline Phosphatase 89 U/L Normal 45-117 Bilirubin,Total 0.4 mg/dL Normal 0.2-1.0 Bilirubin,Direct < 0.1 mg/dL Normal 0.0-0.2 Total Protein 7.3 GM/DL Normal 6.4-8.2 Albumin 4.0 GM/DL Normal 3.2-5.2 Albumin/Globulin Ratio 1.2 Normal 1.2-2.2 Laboratory test finding 07/05/2020 [facility] (Interface) [phone] Ammonia 30 uMOL/L Normal <32 Drug Eval [facility] [phone] Amphetamines Level Urine NEGATIVE Normal Negativ e Barbiturates Urine NEGATIVE Normal Negative Benzodiazepines Urine NEGATIVE Normal Negative Cannabinoids Urine NEGATIVE Normal Negative Cocaine Metabolite Urine NEGATIVE Normal Negative Methadone Urine NEGATIVE Normal Negative Opiates Urine NEGATIVE Normal Negative Phencyclidine Urine NEGATIVE Normal Negative 15 Blood Culture 07/05/2020 [facility]) [phone] Blood Culture No growth after <SEE NOTE> 16 Venous Blood Gas 07/05/2020 [facility]) [phone] Venous PH 7.328 units Low 7.330-7.430 Venous Partial Pressure Co2 56.7 mmHg High 38.0-50.0 Venous Partial Pressure O2 39.1 mmHg Normal 30.0-50.0 Venous Total Co2 30.8 mEq/L High 24.0-28.0 Venous Hco3 29.1 mEq/L High 23.0-27.0 Venous Base Excess 2.0 Normal -2.0-2.0 Venous Standard Hco3 25.6 mEq/L Normal Venous O2 Saturation 69.2 % Normal 60.0-80.0 Cardiac Marker Panel [facility]05[facility] [phone] CPK Creatine Phosphokinase 90 U/L Normal 26-19 2 CK-MB Value Mass 1.6 NG/ML Normal <3.6 MB/CK Relative Index 1.78 Normal < Or =4 17 Troponin I < 0.02 NG/ML Normal < 0.10 18 CBC With Differential 07/05/2020 [facility]) [phone] White Blood Count 6.0 10 Normal 4.0-10.0 [...] 36.0-66.0 Lymph % 43.0 % Normal 24.0-44.0 [place] % 6.5 % Normal 2.0-8.0 Eos % 5.5 % High 0.0-3.0 Baso % 0.7 % Normal 0.0-1.0 Immature Granulocyte % 0.3 % Normal 0-3.0 Nucleated Red Blood Cell % 0.0 % Normal 0-0 Neutrophils # 2.6 10 Normal 1.5-8.5 Lymph # 2.6 10 Normal 1.5-5.0 [place] # 0.4 10 Normal 0.0-0.8 Eos # 0.3 10 Normal 0.0-0.5 Baso # 0.0 10 Normal 0.0-0.2 Istat Chem8+ Panel 06/18/2020 [facility] ([facility]) [phone] iSTAT HCT 40.0 % Normal 38.0-51.0 iSTAT Glucose 201 mg/dL High 70-105 iSTAT Sodium 137 mEq/L Normal 136-145 iSTAT Potassium 4.2 mEq/L Normal 3.5-5.1 iSTAT CA++ 4.7 mg/dL Normal 4.5-5.3 iSTAT Chloride 99 mEq/L Normal 98-109 iSTAT Co2 31.0 MM/L High 23.0-27.0 iSTAT BUN 18 mg/dL Normal 8-26 iSTAT Creatinine 1.0 mg/dL Normal 0.6-1.3 CBC With Differential 06/18/2020 [facility]) [phone] White Blood Count 7.3 10 Normal 4.0-10.0 [...] 36.0-66.0 Lymph % 38.5 % Normal 24.0-44.0 [place] % 5.8 % Normal 2.0-8.0 Eos % 5.1 % High 0.0-3.0 Baso % 0.3 % Normal 0.0-1.0 Immature Granulocyte % 0.4 % Normal 0-3.0 Nucleated Red Blood Cell % 0.0 % Normal 0-0 Neutrophils # 3.6 10 Normal 1.5-8.5 Lymph # 2.8 10 Normal 1.5-5.0 [place] # 0.4 10 Normal 0.0-0.8 Eos # 0.4 10 Normal 0.0-0.5 Baso # 0.0 10 Normal 0.0-0.2 Liver Profile 06/18/2020 [facility] ([facility]) [phone] Ast/Sgot 14 U/L Normal 7-37 Alt/SGPT 22 U/L Normal 12-78 Alkaline Phosphatase 95 U/L Normal 45-117 Bilirubin,Total 0.3 mg/dL Normal 0.2-1.0 Bilirubin,Direct 0.1 mg/dL Normal 0.0-0.2 Total Protein 7.2 GM/DL Normal 6.4-8.2 Albumin 3.9 GM/DL Normal 3.2-5.2 Albumin/Globulin Ratio 1.2 Normal 1.2-2.2 Laboratory test finding 06/18/2020 [facility] (Interface) [phone] Lipase 311 U/L Normal 73-393 Basic Metabolic [...] 9.6 mg/dL 8.7-10.3 Laboratory test finding 05/17/2020 [facility] (Interface) [phone] Bedside Glucose 149 mg/dL High 83-110 Laboratory test finding 05/17/2020 [facility] (Interface) [phone] iSTAT Troponin 0.01 NG/ML Normal 0.00-0.08 Istat Chem8+ Panel 05/17/2020 [facility] [phone] iSTAT HCT 51.0 % Normal 38.0-51.0 iSTAT Glucose 81 mg/dL Normal 70-105 iSTAT Sodium 140 mEq/L Normal 136-145 iSTAT Potassium 3.8 mEq/L Normal 3.5-5.1 iSTAT CA++ 5.2 mg/dL Normal 4.5-5.3 iSTAT Chloride 99 mEq/L Normal 98-109 iSTAT Co2 32.0 MM/L High 23.0-27.0 iSTAT BUN 33 mg/dL High 8-26 iSTAT Creatinine 1.3 mg/dL Normal 0.6-1.3 CBC With Differential 05/17/2020 [facility] (Interface) [phone] White Blood Count 13.1 10 High 4.0-10.0 [...] 36.0-66.0 Lymph % 6.5 % Low 24.0-44.0 [place] % 3.8 % Normal 2.0-8.0 Eos % 0.3 % Normal 0.0-3.0 Baso % 0.2 % Normal 0.0-1.0 Immature Granulocyte % 0.5 % Normal 0-3.0 Nucleated Red Blood Cell % 0.0 % Normal 0-0 Neutrophils # 11.6 10 High 1.5-8.5 Lymph # 0.9 10 Low 1.5-5.0 [place] # 0.5 10 Normal 0.0-0.8 Eos # 0.0 10 Normal 0.0-0.5 Baso # 0.0 10 Normal 0.0-0.2 Liver Profile 05/17/2020 [facility] [phone] Ast/Sgot 55 U/L High 7-37 Alt/SGPT 24 U/L Normal 12-78 Alkaline Phosphatase 100 U/L Normal 45-117 Bilirubin,Total 0.3 mg/dL Normal 0.2-1.0 Bilirubin,Direct < 0.1 mg/dL Normal 0.0-0.2 Total Protein 9.0 GM/DL High 6.4-8.2 Albumin 4.6 GM/DL Normal 3.2-5.2 Albumin/Globulin Ratio 1.0 Low 1.2-2.2 Basic Metabolic Profile 05/17/2020 [facility] ([facility]) [phone] Glucose, Fasting 78 mg/dL Normal 70-100 Blood [...] mg/dL Normal 8.8-10.2 Laboratory test finding 05/17/2020 [facility] (Interface) [phone] Thyroid Stimulating Hormone 3.770 uIU/ML High 0. 358-3.740 Laboratory test finding 05/10/2020 [facility] (Interface) [phone] Bedside Glucose 149 mg/dL High 83-110 Laboratory test finding 05/10/2020 [facility] (Interface) [phone] Bedside Glucose 140 mg/dL High 83-110 1 Units are mL/min/1.73 m2 Chronic Kidney Disease Staging per NKF: Stage I & II GFR >=60 Normal to Mildly Decreased Stage III GFR 30-59 Moderately Decreased Stage IV GFR 15-29 Severely Decreased Stage V GFR <15 Very Little GFR Left ESRD GFR <15 on CHART CALCULATOR 2 DIAGNOSIS CRITERIA MMB ng/ml Relative Index (RI) NON-AMI < or = 5 N/A GIL ZONE > 5 < or = 4 AMI > 5 > 4 3 Troponin I Reference Interva l for SimpliFieldta LOCI: 99th Percentile= 0.00-0.045 ng/ml Risk Stratification: [...] Troponin I Reference Interva l for Siemens [place] LOCI: 99th Percentile= 0.00-0.045 ng/ml Risk Stratification: [...] Little GFR Left ESRD GFR <15 on CHART CALCULATOR 7 Prediabetes: 5.7 - 6.4 Diabetes: >6.4 [...] Little GFR Left ESRD GFR <15 on CHART CALCULATOR 14 This specimen has an elevate d [...] 18 Troponin I Reference Interva l for SimpliFieldta LOCI: 99th Percentile= 0.00-0.045 ng/ml Risk Stratification: [...] Little GFR Left ESRD GFR <15 on CHART CALCULATOR 20 Testing was performed on a h emolysed specimen. Suggest recollection of specimen for more accurate test results. Procedures Date Code Description Status 10/22/2020 54930 Office/Outpatient Established Mo d MDM 30-39 Min Completed 10/18/2020 19132 Office/Outpatient Established Mo d MDM 30-39 Min Completed 10/10/2020 08786 Office/Outpatient Established Mo d MDM 30-39 Min Completed 10/10/2020 65897 Capillary Blood Collection Finge r, Heel, Ear Stick Completed 09/16/202088241 Office/Outpatient Established Mo d MDM 30-39 Min Completed 07/23/2020 50209 Office/Outpatient Established Mo d MDM 30-39 Min Completed 07/08/2020 48500 Office/Outpatient Established Mo d MDM 30-39 Min Completed 06/18/2020 42622 Office/Outpatient Established Mo d MDM 30-39 Min Completed 05/24/2020 67495 Office/Outpatient Established Mo d MDM 30-39 Min Completed 05/03/2020 61037 Office/Outpatient Established Mo d MDM 30-39 Min Completed 11/15/2019 [id number] Mammogram Completed Medical Devices Description No Information Available Encounters Type Date Location Provider Dx Diagnosis Office Visit 10/22/2020 11:00a [facility] Jamison Quiros M. D. E11.649 Type 2 diabetes mellitus with hypoglycemia without coma Office Visit 10/18/2020 11:15a [facility] Jamison Quiros M. D. E11.649 Type 2 diabetes mellitus with hypoglycemia without coma Office Visit 10/10/2020 9:30a [facility] Alissa Vides, FAAFP E16.0 Drug-induced hypoglycemia without coma I10 Essential (primary) hyperten stephanie E11.649 Type 2 diabetes mellitus wit h hypoglycemia without coma Office Visit 09/16/2020 2:00p [facility] Jamison Quiros M. D. R10.9 Unspecified abdominal pain Office Visit 07/23/2020 10:20a [facility] Jamison Quiros M. D. E11.649 Type 2 diabetes mellitus with hypoglycemia without coma Office Visit 07/08/2020 11:15a [facility] Jamison Quiros M. D. E11.649 Type 2 diabetes mellitus with hypoglycemia without coma Office Visit 06/18/2020 11:30a [facility] Jamison Quiros M. D. E11.649 Type 2 diabetes mellitus with hypoglycemia without coma F41.9 Anxiety disorder, unspecifie d Office Visit 05/24/2020 2:00p [facility] Jamison Quiros M. D. E11.649 Type 2 diabetes mellitus with hypoglycemia without coma Office Visit 05/03/2020 3:00p [facility] Jamison Quiros M. D. Z01.810 Encounter [...] 10:40 am - Jamison Quiros M.D. at [facility] Functional Status Description No Information Available Mental Status Description No Information Available Referrals Refer to Reason for Referral Status Appt Date Dilia Cain M.D. uncontrolled diabetes, sever al hospitalizations, ER visits for hypoglycemia- eval and rx Sent [facility] [place] [address] [phone]
--- OUTSIDE RECORDS SUMMARY | 2020-12-28 16:28 | CCD | Continuity of Care Document ---
Author Author Elsy QUIROS M.D. Organization Unknown Address [address] [place] [id number] Phone [phone] Care Team Providers Care [employer] Supervisor Name Role Phone Dilia Cain M.D. AUTM [phone] Problems Active Problems Provider Date Essential hypertension [...] CPT Code Status Date Vaccine Lot # [id number] Given 11/06/2019 Influenza Virus Vaccine, Quadrivalent, Slit Virus, Im Use 3Y & Up [id number] Given 01/04/2019 Influenza Virus Vaccine, Quadrivalent, Slit Virus, Im Use 3Y & Up [id number] Vital Signs Date Vital Result Comment 10/22/2020 10:53am BP Systolic 140 mmHg BP Diastolic 64 mmHg Body Temperature 97.0 F Heart Rate 72 /min Respiratory Rate 18 /min Height 60.5 inches 5'0.50" Weight 172.00 lb [place] Body Weight 100 lb BMI (Body Mass Index) 33.0 kg/m2 O2 % BldC Oximetry 98 % 10/18/2020 11:10am BP Systolic 124 mmHg BP Diastolic 84 mmHg Body Temperature 98.4 F Heart Rate 78 /min Respiratory Rate 18 /min Height 60.5 inches 5'0.50" Weight 173.00 lb [place] Body Weight 100 lb BMI (Body Mass Index) 33.2 kg/m2 O2 % BldC Oximetry 97 % Results Test Acquired Date Facility Test Result H/L Range Note Laboratory test finding 10/15/2020 [facility] ([facility]) [phone] Bedside Glucose 159 mg/dL High 83-110 Laboratory test finding 10/15/2020 [facility] ([facility]) [phone] Bedside Glucose 203 mg/dL High 83-110 Laboratory test finding 10/15/2020 [facility] ([facility]) [phone] Osmolality Serum 290 MOSM/KG Normal 280-301 Thyroid Stimulating Hormone 2.430 uIU/ML Normal 0.358-3.740 Basic Metabolic Profile 10/15/2020 [facility] (Interface) [phone] Glucose, Fasting 44 mg/dL Low 70-100 Blood [...] 9.2 mg/dL Normal 8.8-10.2 Liver Profile 10/15/2020 [facility] ([facility]) [phone] Ast/Sgot 12 U/L Normal 7-37 Alt/SGPT 22 U/L Normal 12-78 Alkaline Phosphatase 97 U/L Normal 45-117 Bilirubin,Total 0.2 mg/dL Normal 0.2-1.0 Bilirubin,Direct < 0.1 mg/dL Normal 0.0-0.2 Total Protein 6.9 GM/DL Normal 6.4-8.2 Albumin 3.5 GM/DL Normal 3.2-5.2 Albumin/Globulin Ratio 1.0 Low 1.2-2.2 Cardiac Marker Panel 10/15/2020 [facility] ( Interface) [phone] CPK Creatine Phosphokinase 43 U/L Normal 26-19 2 CK-MB Value Mass < 1.0 NG/ML Normal <3.6 MB/CK Relative Index 2.33 Normal < Or =4 2 Troponin I < 0.02 NG/ML Normal < 0.10 3 CBC With Differential 10/15/2020 [facility] (Interface) [phone] White Blood Count 8.1 10 Normal 4.0-10.0 [...] 36.0-66.0 Lymph % 37.8 % Normal 24.0-44.0 [place] % 6.8 % Normal 2.0-8.0 Eos % 3.2 % High 0.0-3.0 Baso % 0.6 % Normal 0.0-1.0 Immature Granulocyte % 0.2 % Normal 0-3.0 Nucleated Red Blood Cell % 0.0 % Normal 0-0 Neutrophils # 4.2 10 Normal 1.5-8.5 Lymph # 3.1 10 Normal 1.5-5.0 [place] # 0.6 10 Normal 0.0-0.8 Eos # 0.3 10 Normal 0.0-0.5 Baso # 0.1 10 Normal 0.0-0.2 Laboratory test finding [facility] [phone] Bedside Glucose 43 mg/dL Low 83-110 Istat Chem8+ Panel 10/13/2020 [facility] [phone] iSTAT HCT 40.0 % Normal 38.0-51.0 iSTAT [...] mg/dL High 65-109 Laboratory test finding 10/03/2020 [facility] [phone] Bedside Glucose 217 mg/dL High 83-110 Laboratory test finding 10/03/2020 [facility] [phone] Bedside Glucose 77 mg/dL Low 83-110 Laboratory test finding 10/03/2020 [facility] (Interface) [phone] Bedside Glucose 31 mg/dL Critical low 83-110 Venous Blood Gas 10/03/2020 [facility] ([facility] [place]) [phone] Venous PH 7.375 units Normal 7.330-7.430 Venous Partial Pressure Co2 44.2 mmHg Normal 38.0-50.0 Venous Partial Pressure O2 41.4 mmHg Normal 30.0-50.0 Venous Total Co2 26.6 mEq/L Normal 24.0-28.0 Venous Hco3 25.3 mEq/L Normal 23.0-27.0 Venous Base Excess -0.2 Normal -2.0-2.0 Venous Standard Hco3 23.9 mEq/L Normal Venous O2 Saturation 77.9 % Normal 60.0-80.0 CBC With Differential 10/03/2020 [facility] (Interface) [phone] White Blood Count 7.5 10 Normal 4.0-10.0 [...] 36.0-66.0 Lymph % 30.2 % Normal 24.0-44.0 [place] % 6.3 % Normal 2.0-8.0 Eos % 1.6 % Normal 0.0-3.0 Baso % 0.7 % Normal 0.0-1.0 Immature Granulocyte % 0.3 % Normal 0-3.0 Nucleated Red Blood Cell % 0.0 % Normal 0-0 Neutrophils # 4.6 10 Normal 1.5-8.5 Lymph # 2.3 10 Normal 1.5-5.0 [place] # 0.5 10 Normal 0.0-0.8 Eos # 0.1 10 Normal 0.0-0.5 Baso # 0.1 10 Normal 0.0-0.2 Cardiac Marker Panel 10/03/2020 [facility] ( Interface) [phone] CPK Creatine Phosphokinase 77 U/L Normal 26-19 2 CK-MB Value Mass 1.5 NG/ML Normal <3.6 MB/CK Relative Index 1.95 Normal < Or =4 4 Troponin I < 0.02 NG/ML Normal < 0.10 5 Basic Metabolic Profile 10/03/2020 [facility] (Interface) [phone] Glucose, Fasting 58 mg/dL Low 70-100 Blood [...] mg/dL Normal 8.8-10.2 Laboratory test finding 10/03/2020 [facility] (Interface) [phone] Magnesium Level 2.2 mg/dL Normal 1.8-2.4 Thyroid [...] eGFR 75 # Calc 9 eGFR Non-Afr. Irish 65 # Calc 10 CBC 09/16/2020 [facility]/Inhouse [...] 9.0 - 13.0 Istat Chem8+ Panel 07/13/2020 [facility] ([facility]) [phone] iSTAT HCT 35.0 % Low 38.0-51.0 iSTAT Glucose 229 mg/dL High 70-105 iSTAT Sodium 138 mEq/L Normal 136-145 iSTAT Potassium 4.3 mEq/L Normal 3.5-5.1 iSTAT CA++ 4.7 mg/dL Normal 4.5-5.3 iSTAT Chloride 100 mEq/L Normal 98-109 iSTAT Co2 31.0 MM/L High 23.0-27.0 iSTAT BUN 26 mg/dL Normal 8-26 iSTAT Creatinine 1.6 mg/dL High 0.6-1.3 Laboratory test finding 07/13/2020 [facility] (Interface) [phone] Bedside Glucose 245 mg/dL High 83-110 Laboratory test finding 07/13/2020 [facility] (Interface) [phone] Bedside Glucose 177 mg/dL High 83-110 11 Ua W/ Reflex To Culture 07/05/2020 [facility] (Interface) [phone] Appearance, Urine RFX CLEAR Normal Clear Color, Urine RFX STRAW Normal Yellow PH,Urine RFX 6.0 units Normal 5.0-9.0 Specific [place] Ur Auto RFX 1.006 Normal 1.002-1.035 Protein, [...] 0 /LPF Normal 0-1 Blood Culture 07/05/2020 [facility] ([facility] [place]) [phone] Blood Culture No growth after <SEE NOTE> 12 Laboratory test finding 07/05/2020 [facility] (Interface) [phone] Thyroid Stimulating Hormone 7.580 uIU/ML High 0. 358-3.740 Basic Metabolic Profile 07/05/2020 [facility] (Interface) [phone] Glucose, Fasting 113 mg/dL High 70-100 Blood [...] 9.7 mg/dL Normal 8.8-10.2 Liver Profile 07/05/2020 [facility]) [phone] Ast/Sgot 16 U/L Normal 7-37 Alt/SGPT 21 U/L Normal 12-78 Alkaline Phosphatase 89 U/L Normal 45-117 Bilirubin,Total 0.4 mg/dL Normal 0.2-1.0 Bilirubin,Direct < 0.1 mg/dL Normal 0.0-0.2 Total Protein 7.3 GM/DL Normal 6.4-8.2 Albumin 4.0 GM/DL Normal 3.2-5.2 Albumin/Globulin Ratio 1.2 Normal 1.2-2.2 Laboratory test finding 07/05/2020 [facility] (Interface) [phone] Ammonia 30 uMOL/L Normal <32 Drug Eval Toxicology ED Only [facility] [phone] Amphetamines Level Urine NEGATIVE Normal Negativ e Barbiturates Urine NEGATIVE Normal Negative Benzodiazepines Urine NEGATIVE Normal Negative Cannabinoids Urine NEGATIVE Normal Negative Cocaine Metabolite Urine NEGATIVE Normal Negative Methadone Urine NEGATIVE Normal Negative Opiates Urine NEGATIVE Normal Negative Phencyclidine Urine NEGATIVE Normal Negative 15 Blood Culture 07/05/2020 [facility]) [phone] Blood Culture No growth after <SEE NOTE> 16 Venous Blood Gas 07/05/2020 [facility]) [phone] Venous PH 7.328 units Low 7.330-7.430 Venous Partial Pressure Co2 56.7 mmHg High 38.0-50.0 Venous Partial Pressure O2 39.1 mmHg Normal 30.0-50.0 Venous Total Co2 30.8 mEq/L High 24.0-28.0 Venous Hco3 29.1 mEq/L High 23.0-27.0 Venous Base Excess 2.0 Normal -2.0-2.0 Venous Standard Hco3 25.6 mEq/L Normal Venous O2 Saturation 69.2 % Normal 60.0-80.0 Cardiac Marker [facility] [phone] CPK Creatine Phosphokinase 90 U/L Normal 26-19 2 CK-MB Value Mass 1.6 NG/ML Normal <3.6 MB/CK Relative Index 1.78 Normal < Or =4 17 Troponin I < 0.02 NG/ML Normal < 0.10 18 CBC With Differential 07/05/2020 [facility]) [phone] White Blood Count 6.0 10 Normal 4.0-10.0 [...] 36.0-66.0 Lymph % 43.0 % Normal 24.0-44.0 [place] % 6.5 % Normal 2.0-8.0 Eos % 5.5 % High 0.0-3.0 Baso % 0.7 % Normal 0.0-1.0 Immature Granulocyte % 0.3 % Normal 0-3.0 Nucleated Red Blood Cell % 0.0 % Normal 0-0 Neutrophils # 2.6 10 Normal 1.5-8.5 Lymph # 2.6 10 Normal 1.5-5.0 [place] # 0.4 10 Normal 0.0-0.8 Eos # 0.3 10 Normal 0.0-0.5 Baso # 0.0 10 Normal 0.0-0.2 Istat Chem8+ Panel 06/18/2020 [facility] ([facility]ter[facility]) [phone] iSTAT HCT 40.0 % Normal 38.0-51.0 iSTAT Glucose 201 mg/dL High 70-105 iSTAT Sodium 137 mEq/L Normal 136-145 iSTAT Potassium 4.2 mEq/L Normal 3.5-5.1 iSTAT CA++ 4.7 mg/dL Normal 4.5-5.3 iSTAT Chloride 99 mEq/L Normal 98-109 iSTAT Co2 31.0 MM/L High 23.0-27.0 iSTAT BUN 18 mg/dL Normal 8-26 iSTAT Creatinine 1.0 mg/dL Normal 0.6-1.3 CBC With Differential 06/18/2020 [facility]) [phone] White Blood Count 7.3 10 Normal 4.0-10.0 [...] 36.0-66.0 Lymph % 38.5 % Normal 24.0-44.0 [place] % 5.8 % Normal 2.0-8.0 Eos % 5.1 % High 0.0-3.0 Baso % 0.3 % Normal 0.0-1.0 Immature Granulocyte % 0.4 % Normal 0-3.0 Nucleated Red Blood Cell % 0.0 % Normal 0-0 Neutrophils # 3.6 10 Normal 1.5-8.5 Lymph # 2.8 10 Normal 1.5-5.0 [place] # 0.4 10 Normal 0.0-0.8 Eos # 0.4 10 Normal 0.0-0.5 Baso # 0.0 10 Normal 0.0-0.2 Liver Profile 06/18/2020 [facility] ([facility]) [phone] Ast/Sgot 14 U/L Normal 7-37 Alt/SGPT 22 U/L Normal 12-78 Alkaline Phosphatase 95 U/L Normal 45-117 Bilirubin,Total 0.3 mg/dL Normal 0.2-1.0 Bilirubin,Direct 0.1 mg/dL Normal 0.0-0.2 Total Protein 7.2 GM/DL Normal 6.4-8.2 Albumin 3.9 GM/DL Normal 3.2-5.2 Albumin/Globulin Ratio 1.2 Normal 1.2-2.2 Laboratory test finding 06/18/2020 [facility] ([facility]) [phone] Lipase 311 U/L Normal 73-393 Basic Metabolic [...] 9.6 mg/dL 8.7-10.3 Laboratory test finding 05/17/2020 [facility] (Interface) [phone] Bedside Glucose 149 mg/dL High 83-110 Laboratory test finding 05/17/2020 [facility] (Interface) [phone] iSTAT Troponin 0.01 NG/ML Normal 0.00-0.08 Istat Chem8+ Panel 05/17/2020 [facility] [phone] iSTAT HCT 51.0 % Normal 38.0-51.0 iSTAT Glucose 81 mg/dL Normal 70-105 iSTAT Sodium 140 mEq/L Normal 136-145 iSTAT Potassium 3.8 mEq/L Normal 3.5-5.1 iSTAT CA++ 5.2 mg/dL Normal 4.5-5.3 iSTAT Chloride 99 mEq/L Normal 98-109 iSTAT Co2 32.0 MM/L High 23.0-27.0 iSTAT BUN 33 mg/dL High 8-26 iSTAT Creatinine 1.3 mg/dL Normal 0.6-1.3 CBC With Differential 05/17/2020 [facility] (Interface) [phone] White Blood Count 13.1 10 High 4.0-10.0 [...] 36.0-66.0 Lymph % 6.5 % Low 24.0-44.0 [place] % 3.8 % Normal 2.0-8.0 Eos % 0.3 % Normal 0.0-3.0 Baso % 0.2 % Normal 0.0-1.0 Immature Granulocyte % 0.5 % Normal 0-3.0 Nucleated Red Blood Cell % 0.0 % Normal 0-0 Neutrophils # 11.6 10 High 1.5-8.5 Lymph # 0.9 10 Low 1.5-5.0 [place] # 0.5 10 Normal 0.0-0.8 Eos # 0.0 10 Normal 0.0-0.5 Baso # 0.0 10 Normal 0.0-0.2 Liver Profile 05/17/2020 [facility] [phone] Ast/Sgot 55 U/L High 7-37 Alt/SGPT 24 U/L Normal 12-78 Alkaline Phosphatase 100 U/L Normal 45-117 Bilirubin,Total 0.3 mg/dL Normal 0.2-1.0 Bilirubin,Direct < 0.1 mg/dL Normal 0.0-0.2 Total Protein 9.0 GM/DL High 6.4-8.2 Albumin 4.6 GM/DL Normal 3.2-5.2 Albumin/Globulin Ratio 1.0 Low 1.2-2.2 Basic Metabolic Profile 05/17/2020 [facility] ([facility]) [phone] Glucose, Fasting 78 mg/dL Normal 70-100 Blood [...] mg/dL Normal 8.8-10.2 Laboratory test finding 05/17/2020 [facility] ([facility]) [phone] Thyroid Stimulating Hormone 3.770 uIU/ML High 0. 358-3.740 Laboratory test finding 05/10/2020 [facility] ([facility]) [phone] Bedside Glucose 149 mg/dL High 83-110 Laboratory test finding 05/10/2020 [facility] ([facility]) [phone] Bedside Glucose 140 mg/dL High 83-110 1 Units are mL/min/1.73 m2 Chronic Kidney Disease Staging per NKF: Stage I & II GFR >=60 Normal to Mildly Decreased Stage III GFR 30-59 Moderately Decreased Stage IV GFR 15-29 Severely Decreased Stage V GFR <15 Very Little GFR Left ESRD GFR <15 on PAPER CUTTER OPERATOR 2 DIAGNOSIS CRITERIA MMB ng/ml Relative Index (RI) NON-AMI < or = 5 N/A GIL ZONE > 5 < or = 4 AMI > 5 > 4 3 Troponin I Reference Interva l for One [place] LOCI: 99th Percentile= 0.00-0.045 ng/ml Risk Stratification: [...] Troponin I Reference Interva l for Siemens [place] LOCI: 99th Percentile= 0.00-0.045 ng/ml Risk Stratification: [...] Little GFR Left ESRD GFR <15 on PAPER CUTTER OPERATOR 7 Prediabetes: 5.7 - 6.4 Diabetes: >6.4 [...] Little GFR Left ESRD GFR <15 on PAPER CUTTER OPERATOR 14 This specimen has an elevate d [...] 18 Troponin I Reference Interva l for One [place] LOCI: 99th Percentile= 0.00-0.045 ng/ml Risk Stratification: [...] Little GFR Left ESRD GFR <15 on PAPER CUTTER OPERATOR 20 Testing was performed on a h emolysed specimen. Suggest recollection of specimen for more accurate test results. Procedures Date Code Description Status 10/22/2020 50138 Office/Outpatient Established Mo d MDM 30-39 Min Completed 10/18/2020 70949 Office/Outpatient Established Mo d MDM 30-39 Min Completed 10/10/2020 39144 Office/Outpatient Established Mo d MDM 30-39 Min Completed 10/10/2020 30156 Capillary Blood Collection Finge r, Heel, Ear Stick Completed 09/16/202030642 Office/Outpatient Established Mo d MDM 30-39 Min Completed 07/23/2020 34988 Office/Outpatient Established Mo d MDM 30-39 Min Completed 07/08/2020 77560 Office/Outpatient Established Mo d MDM 30-39 Min Completed 06/18/2020 50844 Office/Outpatient Established Mo d MDM 30-39 Min Completed 05/24/2020 26559 Office/Outpatient Established Mo d MDM 30-39 Min Completed 05/03/2020 55001 Office/Outpatient Established Mo d MDM 30-39 Min Completed 11/15/2019 [id number] Mammogram Completed Medical Devices Description No Information Available Encounters Type Date Location Provider Dx Diagnosis Office Visit 10/22/2020 11:00a [facility] Jamison Quiros M. D. E11.649 Type 2 diabetes mellitus with hypoglycemia without coma Office Visit 10/18/2020 11:15a [place] [facility] Jamison Quiros M. D. E11.649 Type 2 diabetes mellitus with hypoglycemia without coma Office Visit 10/10/2020 9:30a [place] [facility] Alissa Vides, FAAFP E16.0 Drug-induced hypoglycemia without coma I10 Essential (primary) hyperten stephanie E11.649 Type 2 diabetes mellitus wit h hypoglycemia without coma Office Visit 09/16/2020 2:00p [place] [facility] Jamison Quiros M. D. R10.9 Unspecified abdominal pain Office Visit 07/23/2020 10:20a [place] [facility] Jamison Quiros M. D. E11.649 Type 2 diabetes mellitus with hypoglycemia without coma Office Visit 07/08/2020 11:15a [place] [facility] Jamison Quiros M. D. E11.649 Type 2 diabetes mellitus with hypoglycemia without coma Office Visit 06/18/2020 11:30a [place] [facility] Jamison Quiros M. D. E11.649 Type 2 diabetes mellitus with hypoglycemia without coma F41.9 Anxiety disorder, unspecifie d Office Visit 05/24/2020 2:00p [place] [facility] Jamiosn Quiros M. D. E11.649 Type 2 diabetes mellitus with hypoglycemia without coma Office Visit 05/03/2020 3:00p [place] [facility] Jamison Quiros M. D. Z01.810 Encounter [...] diabetes mellitus with hy poglycemia without coma Jamisno Quiros M.D. 06/18/2020 E11.649 Type 2 diabetes mellitus with hy poglycemia without coma Jamison Quiros M.D. 06/18/2020 F41.9 Anxiety disorder, unspecified [place] Jamison duran M.D. 05/24/2020 E11.649 Type 2 diabetes mellitus with hy poglycemia without coma Jamison Quiros M.D. 05/03/2020 Z01.810 Encounter for preprocedural card iovascular examination Jamison Quiros M.D. Plan of Treatment Future Appointment(s):* 11/01/2020 10:40 am - Jamison Quiros M.D. at [place] [facility] Functional Status Description No Information Available Mental Status Description No Information Available Referrals Refer to Reason for Referral Status Appt Date Dilia Cain M.D. uncontrolled diabetes, sever al hospitalizations, ER visits for hypoglycemia- eval and rx [facility] [place] [id number] [phone]
--- OUTSIDE RECORDS SUMMARY | 2020-12-28 16:28 | CCD | Continuity of Care Document ---
Author Author Elsy QUIROS M.D. Organization Unknown Address [address] [place] [address] Phone [phone] Care Team Providers Care Shaker Screen Operator Name Role Phone Dilia Cain M.D. AUTM [phone] Problems Active Problems Provider Date Essential hypertension [...] CPT Code Status Date Vaccine Lot # [id number] Given 11/06/2019 Influenza Virus Vaccine, Quadrivalent, Slit Virus, Im Use 3Y & Up [id number] Given 01/04/2019 Influenza Virus Vaccine, Quadrivalent, Slit Virus, Im Use 3Y & Up [id number] Vital Signs Date Vital Result Comment 10/22/2020 10:53am BP Systolic 140 mmHg BP Diastolic 64 mmHg Body Temperature 97.0 F Heart Rate 72 /min Respiratory Rate 18 /min Height 60.5 inches 5'0.50" Weight 172.00 lb [place] Body Weight 100 lb BMI (Body Mass Index) 33.0 kg/m2 O2 % BldC Oximetry 98 % 10/18/2020 11:10am BP Systolic 124 mmHg BP Diastolic 84 mmHg Body Temperature 98.4 F Heart Rate 78 /min Respiratory Rate 18 /min Height 60.5 inches 5'0.50" Weight 173.00 lb [place] Body Weight 100 lb BMI (Body Mass Index) 33.2 kg/m2 O2 % BldC Oximetry 97 % Results Test Acquired Date Facility Test Result H/L Range Note Laboratory test finding 10/15/2020 [facility] ([facility]) [phone] Bedside Glucose 159 mg/dL High 83-110 Laboratory test finding 10/15/2020 [facility] ([facility]) [phone] Bedside Glucose 203 mg/dL High 83-110 Laboratory test finding 10/15/2020 [facility] ([facility]) [phone] Osmolality Serum 290 MOSM/KG Normal 280-301 Thyroid Stimulating Hormone 2.430 uIU/ML Normal 0.358-3.740 Basic Metabolic Profile 10/15/2020 [facility] (Interface) [phone] Glucose, Fasting 44 mg/dL Low 70-100 Blood [...] 9.2 mg/dL Normal 8.8-10.2 Liver Profile 10/15/2020 [facility] ([facility]) [phone] Ast/Sgot 12 U/L Normal 7-37 Alt/SGPT 22 U/L Normal 12-78 Alkaline Phosphatase 97 U/L Normal 45-117 Bilirubin,Total 0.2 mg/dL Normal 0.2-1.0 Bilirubin,Direct < 0.1 mg/dL Normal 0.0-0.2 Total Protein 6.9 GM/DL Normal 6.4-8.2 Albumin 3.5 GM/DL Normal 3.2-5.2 Albumin/Globulin Ratio 1.0 Low 1.2-2.2 Cardiac Marker Panel 10/15/2020 [facility] ( Interface) [phone] CPK Creatine Phosphokinase 43 U/L Normal 26-19 2 CK-MB Value Mass < 1.0 NG/ML Normal <3.6 MB/CK Relative Index 2.33 Normal < Or =4 2 Troponin I < 0.02 NG/ML Normal < 0.10 3 CBC With Differential 10/15/2020 [facility] (Interface) [phone] White Blood Count 8.1 10 Normal 4.0-10.0 [...] 36.0-66.0 Lymph % 37.8 % Normal 24.0-44.0 [place] % 6.8 % Normal 2.0-8.0 Eos % 3.2 % High 0.0-3.0 Baso % 0.6 % Normal 0.0-1.0 Immature Granulocyte % 0.2 % Normal 0-3.0 Nucleated Red Blood Cell % 0.0 % Normal 0-0 Neutrophils # 4.2 10 Normal 1.5-8.5 Lymph # 3.1 10 Normal 1.5-5.0 [place] # 0.6 10 Normal 0.0-0.8 Eos # 0.3 10 Normal 0.0-0.5 Baso # 0.1 10 Normal 0.0-0.2 Laboratory test finding 10[facility]15[facility] [phone] Bedside Glucose 43 mg/dL Low 83-110 Istat Chem8+ Panel 10/13/2020 [facility] [phone] iSTAT HCT 40.0 % Normal 38.0-51.0 iSTAT [...] mg/dL High 65-109 Laboratory test finding 10/03/2020 [facility] ([facility]) [phone] Bedside Glucose 217 mg/dL High 83-110 Laboratory test finding 10/03/2020 [facility] ([facility]) [phone] Bedside Glucose 77 mg/dL Low 83-110 Laboratory test finding 10/03/2020 [facility] (Interface) [phone] Bedside Glucose 31 mg/dL Critical low 83-110 Venous Blood Gas 10/03/2020 [facility] ([facility]) [phone] Venous PH 7.375 units Normal 7.330-7.430 Venous Partial Pressure Co2 44.2 mmHg Normal 38.0-50.0 Venous Partial Pressure O2 41.4 mmHg Normal 30.0-50.0 Venous Total Co2 26.6 mEq/L Normal 24.0-28.0 Venous Hco3 25.3 mEq/L Normal 23.0-27.0 Venous Base Excess -0.2 Normal -2.0-2.0 Venous Standard Hco3 23.9 mEq/L Normal Venous O2 Saturation 77.9 % Normal 60.0-80.0 CBC With Differential 10/03/2020 [facility] (Interface) [phone] White Blood Count 7.5 10 Normal 4.0-10.0 [...] 36.0-66.0 Lymph % 30.2 % Normal 24.0-44.0 [place] % 6.3 % Normal 2.0-8.0 Eos % 1.6 % Normal 0.0-3.0 Baso % 0.7 % Normal 0.0-1.0 Immature Granulocyte % 0.3 % Normal 0-3.0 Nucleated Red Blood Cell % 0.0 % Normal 0-0 Neutrophils # 4.6 10 Normal 1.5-8.5 Lymph # 2.3 10 Normal 1.5-5.0 [place] # 0.5 10 Normal 0.0-0.8 Eos # 0.1 10 Normal 0.0-0.5 Baso # 0.1 10 Normal 0.0-0.2 Cardiac Marker Panel 10/03/2020 [facility] ( Interface) [phone] CPK Creatine Phosphokinase 77 U/L Normal 26-19 2 CK-MB Value Mass 1.5 NG/ML Normal <3.6 MB/CK Relative Index 1.95 Normal < Or =4 4 Troponin I < 0.02 NG/ML Normal < 0.10 5 Basic Metabolic Profile 10/03/2020 [facility] (Interface) [phone] Glucose, Fasting 58 mg/dL Low 70-100 Blood [...] mg/dL Normal 8.8-10.2 Laboratory test finding 10/03/2020 [facility] (Interface) [phone] Magnesium Level 2.2 mg/dL Normal 1.8-2.4 Thyroid [...] eGFR 75 # Calc 9 eGFR Non-Afr. [place] 65 # Calc 10 CBC 09/16/2020 [facility]/Inhouse [...] 9.0 - 13.0 Istat Chem8+ Panel 07/13/2020 [facility] ([facility]) [phone] iSTAT HCT 35.0 % Low 38.0-51.0 iSTAT Glucose 229 mg/dL High 70-105 iSTAT Sodium 138 mEq/L Normal 136-145 iSTAT Potassium 4.3 mEq/L Normal 3.5-5.1 iSTAT CA++ 4.7 mg/dL Normal 4.5-5.3 iSTAT Chloride 100 mEq/L Normal 98-109 iSTAT Co2 31.0 MM/L High 23.0-27.0 iSTAT BUN 26 mg/dL Normal 8-26 iSTAT Creatinine 1.6 mg/dL High 0.6-1.3 Laboratory test finding 07/13/2020 [facility] (Interface) [phone] Bedside Glucose 245 mg/dL High 83-110 Laboratory test finding 07/13/2020 [facility] (Interface) [phone] Bedside Glucose 177 mg/dL High 83-110 11 Ua W/ Reflex To Culture 07/05/2020 [facility] (Interface) [phone] Appearance, Urine RFX CLEAR Normal Clear Color, Urine RFX STRAW Normal Yellow PH,Urine RFX 6.0 units Normal 5.0-9.0 Specific [place] Ur Auto RFX 1.006 Normal 1.002-1.035 [...] 0 /LPF Normal 0-1 Blood Culture 07/05/2020 [facility] ([facility]) [phone] Blood Culture No growth after <SEE NOTE> 12 Laboratory test finding 07/05/2020 [facility] (Interface) [phone] Thyroid Stimulating Hormone 7.580 uIU/ML High 0. 358-3.740 Basic Metabolic Profile 07/05/2020 [facility] (Interface) [phone] Glucose, Fasting 113 mg/dL High 70-100 Blood [...] 9.7 mg/dL Normal 8.8-10.2 Liver Profile 07/05/2020 [facility]) [phone] Ast/Sgot 16 U/L Normal 7-37 Alt/SGPT 21 U/L Normal 12-78 Alkaline Phosphatase 89 U/L Normal 45-117 Bilirubin,Total 0.4 mg/dL Normal 0.2-1.0 Bilirubin,Direct < 0.1 mg/dL Normal 0.0-0.2 Total Protein 7.3 GM/DL Normal 6.4-8.2 Albumin 4.0 GM/DL Normal 3.2-5.2 Albumin/Globulin Ratio 1.2 Normal 1.2-2.2 Laboratory test finding 07/05/2020 [facility] (Interface) [phone] Ammonia 30 uMOL/L Normal <32 Drug Eval Toxicology ED Only [facility] [phone] Amphetamines Level Urine NEGATIVE Normal Negativ e Barbiturates Urine NEGATIVE Normal Negative Benzodiazepines Urine NEGATIVE Normal Negative Cannabinoids Urine NEGATIVE Normal Negative Cocaine Metabolite Urine NEGATIVE Normal Negative Methadone Urine NEGATIVE Normal Negative Opiates Urine NEGATIVE Normal Negative Phencyclidine Urine NEGATIVE Normal Negative 15 Blood Culture 07/05/2020 [facility]) [phone] Blood Culture No growth after <SEE NOTE> 16 Venous Blood Gas 07/05/2020 [facility]) [phone] Venous PH 7.328 units Low 7.330-7.430 Venous Partial Pressure Co2 56.7 mmHg High 38.0-50.0 Venous Partial Pressure O2 39.1 mmHg Normal 30.0-50.0 Venous Total Co2 30.8 mEq/L High 24.0-28.0 Venous Hco3 29.1 mEq/L High 23.0-27.0 Venous Base Excess 2.0 Normal -2.0-2.0 Venous Standard Hco3 25.6 mEq/L Normal Venous O2 Saturation 69.2 % Normal 60.0-80.0 Cardiac Marker Panel 07/05/2020 [facility]) [phone] CPK Creatine Phosphokinase 90 U/L Normal 26-19 2 CK-MB Value Mass 1.6 NG/ML Normal <3.6 MB/CK Relative Index 1.78 Normal < Or =4 17 Troponin I < 0.02 NG/ML Normal < 0.10 18 CBC With Differential 07/05/2020 [facility]) [phone] White Blood Count 6.0 10 Normal 4.0-10.0 [...] 36.0-66.0 Lymph % 43.0 % Normal 24.0-44.0 [place] % 6.5 % Normal 2.0-8.0 Eos % 5.5 % High 0.0-3.0 Baso % 0.7 % Normal 0.0-1.0 Immature Granulocyte % 0.3 % Normal 0-3.0 Nucleated Red Blood Cell % 0.0 % Normal 0-0 Neutrophils # 2.6 10 Normal 1.5-8.5 Lymph # 2.6 10 Normal 1.5-5.0 [place] # 0.4 10 Normal 0.0-0.8 Eos # 0.3 10 Normal 0.0-0.5 Baso # 0.0 10 Normal 0.0-0.2 Istat Chem8+ Panel 06/18/2020 [facility] ([facility]) [phone] iSTAT HCT 40.0 % Normal 38.0-51.0 iSTAT Glucose 201 mg/dL High 70-105 iSTAT Sodium 137 mEq/L Normal 136-145 iSTAT Potassium 4.2 mEq/L Normal 3.5-5.1 iSTAT CA++ 4.7 mg/dL Normal 4.5-5.3 iSTAT Chloride 99 mEq/L Normal 98-109 iSTAT Co2 31.0 MM/L High 23.0-27.0 iSTAT BUN 18 mg/dL Normal 8-26 iSTAT Creatinine 1.0 mg/dL Normal 0.6-1.3 CBC With Differential 06/18/2020 [facility]) [phone] White Blood Count 7.3 10 Normal 4.0-10.0 [...] 36.0-66.0 Lymph % 38.5 % Normal 24.0-44.0 [place] % 5.8 % Normal 2.0-8.0 Eos % 5.1 % High 0.0-3.0 Baso % 0.3 % Normal 0.0-1.0 Immature Granulocyte % 0.4 % Normal 0-3.0 Nucleated Red Blood Cell % 0.0 % Normal 0-0 Neutrophils # 3.6 10 Normal 1.5-8.5 Lymph # 2.8 10 Normal 1.5-5.0 [place] # 0.4 10 Normal 0.0-0.8 Eos # 0.4 10 Normal 0.0-0.5 Baso # 0.0 10 Normal 0.0-0.2 Liver Profile 06/18/2020 [facility] ([facility]) [phone] Ast/Sgot 14 U/L Normal 7-37 Alt/SGPT 22 U/L Normal 12-78 Alkaline Phosphatase 95 U/L Normal 45-117 Bilirubin,Total 0.3 mg/dL Normal 0.2-1.0 Bilirubin,Direct 0.1 mg/dL Normal 0.0-0.2 Total Protein 7.2 GM/DL Normal 6.4-8.2 Albumin 3.9 GM/DL Normal 3.2-5.2 Albumin/Globulin Ratio 1.2 Normal 1.2-2.2 Laboratory test finding 06/18/2020 [facility] ([facility]) [phone] Lipase 311 U/L Normal 73-393 Basic Metabolic [...] 9.6 mg/dL 8.7-10.3 Laboratory test finding 05/17/2020 [facility] (Interface) [phone] Bedside Glucose 149 mg/dL High 83-110 Laboratory test finding 05/17/2020 [facility] (Interface) [phone] iSTAT Troponin 0.01 NG/ML Normal 0.00-0.08 Istat Chem8+ Panel 05/17/2020 [facility] [phone] iSTAT HCT 51.0 % Normal 38.0-51.0 iSTAT Glucose 81 mg/dL Normal 70-105 iSTAT Sodium 140 mEq/L Normal 136-145 iSTAT Potassium 3.8 mEq/L Normal 3.5-5.1 iSTAT CA++ 5.2 mg/dL Normal 4.5-5.3 iSTAT Chloride 99 mEq/L Normal 98-109 iSTAT Co2 32.0 MM/L High 23.0-27.0 iSTAT BUN 33 mg/dL High 8-26 iSTAT Creatinine 1.3 mg/dL Normal 0.6-1.3 CBC With Differential 05/17/2020 [facility] (Interface) [phone] White Blood Count 13.1 10 High 4.0-10.0 [...] 36.0-66.0 Lymph % 6.5 % Low 24.0-44.0 [place] % 3.8 % Normal 2.0-8.0 Eos % 0.3 % Normal 0.0-3.0 Baso % 0.2 % Normal 0.0-1.0 Immature Granulocyte % 0.5 % Normal 0-3.0 Nucleated Red Blood Cell % 0.0 % Normal 0-0 Neutrophils # 11.6 10 High 1.5-8.5 Lymph # 0.9 10 Low 1.5-5.0 [place] # 0.5 10 Normal 0.0-0.8 Eos # 0.0 10 Normal 0.0-0.5 Baso # 0.0 10 Normal 0.0-0.2 Liver Profile 05/17/2020 [facility] [phone] Ast/Sgot 55 U/L High 7-37 Alt/SGPT 24 U/L Normal 12-78 Alkaline Phosphatase 100 U/L Normal 45-117 Bilirubin,Total 0.3 mg/dL Normal 0.2-1.0 Bilirubin,Direct < 0.1 mg/dL Normal 0.0-0.2 Total Protein 9.0 GM/DL High 6.4-8.2 Albumin 4.6 GM/DL Normal 3.2-5.2 Albumin/Globulin Ratio 1.0 Low 1.2-2.2 Basic Metabolic Profile 05/17/2020 [facility] ([facility]) [phone] Glucose, Fasting 78 mg/dL Normal 70-100 Blood [...] mg/dL Normal 8.8-10.2 Laboratory test finding 05/17/2020 [facility] ([facility]) [phone] Thyroid Stimulating Hormone 3.770 uIU/ML High 0. 358-3.740 Laboratory test finding 05/10/2020 [facility] ([facility]) [phone] Bedside Glucose 149 mg/dL High 83-110 Laboratory test finding 05/10/2020 [facility] ([facility]) [phone] Bedside Glucose 140 mg/dL High 83-110 1 Units are mL/min/1.73 m2 Chronic Kidney Disease Staging per NKF: Stage I & II GFR >=60 Normal to Mildly Decreased Stage III GFR 30-59 Moderately Decreased Stage IV GFR 15-29 Severely Decreased Stage V GFR <15 Very Little GFR Left ESRD GFR <15 on GLUING CREW LEADER 2 DIAGNOSIS CRITERIA MMB ng/ml Relative Index (RI) NON-AMI < or = 5 N/A GIL ZONE > 5 < or = 4 AMI > 5 > 4 3 Troponin I Reference Interva l for Alacritechta LOCI: 99th Percentile= 0.00-0.045 ng/ml Risk Stratification: [...] Troponin I Reference Interva l for Siemens [place] LOCI: 99th Percentile= 0.00-0.045 ng/ml Risk Stratification: [...] Little GFR Left ESRD GFR <15 on GLUING CREW LEADER 7 Prediabetes: 5.7 - 6.4 Diabetes: >6.4 [...] Little GFR Left ESRD GFR <15 on GLUING CREW LEADER 14 This specimen has an elevate d [...] 18 Troponin I Reference Interva l for Alacritechta LOCI: 99th Percentile= 0.00-0.045 ng/ml Risk Stratification: [...] Little GFR Left ESRD GFR <15 on GLUING CREW LEADER 20 Testing was performed on a h emolysed specimen. Suggest recollection of specimen for more accurate test results. Procedures Date Code Description Status 10/22/2020 56303 Office/Outpatient Established Mo d MDM 30-39 Min Completed 10/18/2020 40663 Office/Outpatient Established Mo d MDM 30-39 Min Completed 10/10/2020 43654 Office/Outpatient Established Mo d MDM 30-39 Min Completed 10/10/2020 26394 Capillary Blood Collection Finge r, Heel, Ear Stick Completed 09/16/202027994 Office/Outpatient Established Mo d MDM 30-39 Min Completed 07/23/2020 70828 Office/Outpatient Established Mo d MDM 30-39 Min Completed 07/08/2020 34638 Office/Outpatient Established Mo d MDM 30-39 Min Completed 06/18/2020 83250 Office/Outpatient Established Mo d MDM 30-39 Min Completed 05/24/2020 88352 Office/Outpatient Established Mo d MDM 30-39 Min Completed 05/03/2020 10337 Office/Outpatient Established Mo d MDM 30-39 Min Completed 11/15/2019 [id number] Mammogram Completed Medical Devices Description No Information Available Encounters Type Date Location Provider Dx Diagnosis Office Visit 10/22/2020 11:00a [facility] Jamison Quiros M. D. E11.649 Type 2 diabetes mellitus with hypoglycemia without coma Office Visit 10/18/2020 11:15a [facility] Jamison Quiros M. D. E11.649 Type 2 diabetes mellitus with hypoglycemia without coma Office Visit 10/10/2020 9:30a [facility] Alissa Vides, FAAFP E16.0 Drug-induced hypoglycemia without coma I10 Essential (primary) hyperten stephanie E11.649 Type 2 diabetes mellitus wit h hypoglycemia without coma Office Visit 09/16/2020 2:00p [facility] Jamison Quiros M. D. R10.9 Unspecified abdominal pain Office Visit 07/23/2020 10:20a [facility] Jamison Quiros M. D. E11.649 Type 2 diabetes mellitus with hypoglycemia without coma Office Visit 07/08/2020 11:15a [facility] Jamison Quiros M. D. E11.649 Type 2 diabetes mellitus with hypoglycemia without coma Office Visit 06/18/2020 11:30a [facility] Jamison Quiros M. D. E11.649 Type 2 diabetes mellitus with hypoglycemia without coma F41.9 Anxiety disorder, unspecifie d Office Visit 05/24/2020 2:00p [facility] Jamison Quiros M. D. E11.649 Type 2 diabetes mellitus with hypoglycemia without coma Office Visit 05/03/2020 3:00p [facility] Jamison Quiros M. D. Z01.810 Encounter [...] 10:40 am - Jamison Quiros M.D. at [facility] Functional Status Description No Information Available Mental Status Description No Information Available Referrals Refer to Reason for Referral Status Appt Date Dilia Cain M.D. uncontrolled diabetes, sever al hospitalizations, ER visits for hypoglycemia- eval and rx Sent [facility] [place] [address] [phone]
--- OUTSIDE RECORDS SUMMARY | 2020-12-28 16:28 | CCD | Continuity of Care Document ---
Author Author Elsy READ DPDarrius Organization Unknown Address [address] [place] [address], [address] [place] [address] Phone [phone] Care Team Providers Care Fence Laborer Name Role Phone Yohan ZAPATA, Rebecca WHYTE [phone] Ishaan Cervantes, Jamison AUTDarrius [phone] Problems Active Problems Provider Date Acquired hallux [...] 2002 Allergies, Adverse Reactions, Alerts Active Allergies Criticality Reaction | Severity Comments Date Tape Unable to assess criticality ele damico 02/02/2013 Medications Active Medications SIG Qnty Indications Ordering Provide r Date Actos Unknown Glipizide Unknown Levemir Flexpen Unknown 0 Omeprazole Unknown Indapamide Unknown Calcium 1200 Unknown Pioglitazone HCL Unknown 00 Afluria PF [id number] Unknown Humalog Unknown Immunizations Description No Information Available Vital Signs Date Vital Result Comment 07/13/2014 10:55am Pain Level 0 02/02/2013 2:18pm Height 53 inches 4'5" Weight 150.00 lb BP Systolic 125 mmHg BP Diastolic 65 mmHg Heart Rate 75 /min BMI (Body Mass Index) 37.5 kg/m2 Results Description No Information Available Procedures Date Code Description Status 10/11/2020 71612 Debridement 6-10 Nails Electric Completed 07/26/2020 20944 Debridement 6-10 Nails Electric Completed 05/17/2020 94274 Debridement 6-10 Nails Electric Completed Medical Devices Description No Information Available Encounters Description No Information Available Assessments Date Code Description Provider 10/11/2020 B35.1 Tinea unguium Ricco Read, SIOBHAN 10/11/2020 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
--- OUTSIDE RECORDS SUMMARY | 2020-12-28 16:31 | CCD ---
Author Author [facility] Organization [facility] Address Unknown Phone Unavailable Care Team Providers Care Trousseau Consultant Name Role Phone Ramon KINGSTON MD Unavailable [...] Ramon KINGSTON MD Unavailable Unavailable Ramon KINGSTON JAMISON ZAPATA Unavailable Unavailable VASHTI H JAMISON ZAPATA Unavailable Unavailable VASHTI H JAMISON ZAPATA Unavailable Unavailable VASHTI H JAMISON ZAPATA Unavailable Unavailable VASHTI H JAMISON ZAPATA Unavailable Unavailable VASHTI, H JAMISON ZAPATA Unavailable Unavailable VASHTI H JAMISON ZAPATA Unavailable Unavailable VASHTI H JAMISON ZAPATA Unavailable Unavailable VASHTI, H JAMISON ZAPATA Unavailable Unavailable VASHTI H JAMISON ZAPATA Unavailable Unavailable VASHTI H JAMISON ZAPATA Unavailable Unavailable VASHTI, H JAMISON ZAPATA Unavailable Unavailable VASHTI, H JAMISNO ZAPATA Unavailable Unavailable VASHTI, H JAMISON ZAPATA Unavailable Unavailable VASHTI, H JAMISON ZAPATA Unavailable Unavailable VASHTI, H JAMISON MD Unavailable Unavailable VASHTI, H JAMISON MD Unavailable Unavailable VASHTI, H JAMISON ZAPATA Unavailable Unavailable VASHTI, H JAMISON ZAPATA Unavailable Unavailable VASHTI, H JAMISON ZAPATA Unavailable Unavailable VASHTI, H JAMISON ZAPATA Unavailable Unavailable VASHTI, H JAMISON ZAPATA Unavailable Unavailable VASHTI, H JAMISON ZAPATA Unavailable Unavailable VASHTI, H JAMISON ZAPATA Unavailable Unavailable VASHTI, H JAMISON ZAPATA Unavailable Unavailable VASHTI, H JAMISON ZAPATA Unavailable Unavailable VASHTI H JAMISON ZAPATA Unavailable Unavailable VASHTI H JAMISON ZAPATA Unavailable Unavailable VASHTI H JAMISON ZAPATA Unavailable Unavailable VASHTI H JAMISON ZAPATA Unavailable Unavailable VASHTI H JAMISON ZAPATA Unavailable Unavailable VASHTI H JAMISON ZAPATA Unavailable Unavailable VASHTI H JAMISON ZAPATA Unavailable Unavailable VASHTI H JAMISON ZAPATA Unavailable Unavailable VASHTI H JAMISON ZAPATA Unavailable Unavailable VASHTI H JAMISON ZAPATA Unavailable Unavailable VASHTI H JAMISON ZAPATA Unavailable Unavailable VASHTI H JAMISON ZAPATA Unavailable Unavailable VASHTI H JAMISON ZAPATA Unavailable Unavailable VASHTI H JAMISON ZAPATA Unavailable Unavailable VASHTI H JAMISON ZAPATA Unavailable Unavailable VASHTI H JAMISON ZAPATA Unavailable Unavailable Ramon KINGSTON MD Unavailable Unavailable VASHTI H JAMISON ZAPATA Unavailable Unavailable Ramon KINGSTON MD Unavailable Unavailable Ady Ramsey MD Unavailable Unavailable Ady Ramsey MD Unavailable Unavailable Ady Ramsey MD Unavailable Unavailable Ady Ramsey MD Unavailable Unavailable Ady Ramsey MD Unavailable Unavailable Ady Ramsey MD Unavailable Unavailable Ady Ramsey MD Unavailable Unavailable Ady Ramsey MD Unavailable Unavailable Ady Ramsey MD Unavailable Unavailable Ady Ramsey MD Unavailable Unavailable Ady Ramsey MD Unavailable Unavailable Ady Ramsey MD Unavailable Unavailable Ady Ramsey MD Unavailable Unavailable Ady Ramsey MD Unavailable Unavailable Ady Ramsey MD Unavailable Unavailable Ady Ramsey MD Unavailable Unavailable Ady Ramsey MD Unavailable Unavailable Ady Ramsey MD Unavailable Unavailable Ady Ramsey MD Unavailable Unavailable Ady Ramsey MD Unavailable Unavailable Ady Ramsey MD Unavailable Unavailable Ady Ramsey MD Unavailable Unavailable Ady Ramsey MD Unavailable Unavailable MollisonAdy MD Unavailable Unavailable MollisonAdy MD Unavailable Unavailable Mollison, Ady Swift MD Unavailable Unavailable MollisonAdy MD Unavailable Unavailable Mollison, Ady Swift MD Unavailable Unavailable Mollison, Ady Swift MD Unavailable Unavailable MollisonAdy MD Unavailable Unavailable Hunt, M Barratt PA [...] Unavailable Hunt, M Barratt PA Unavailable Unavailable Nolvia BRUNER MD Unavailable Unavailable Nolvia BRUNER MD Unavailable Unavailable Nolvia BRUNER MD Unavailable Unavailable Nolvia BRUNER MD Unavailable Unavailable Nolvia BRUNER MD Unavailable Unavailable Nolvia BRUNER MD Unavailable Unavailable Nolvia BRUNER MD Unavailable Unavailable Nolvia BRUNER MD Unavailable Unavailable Nolvia BRUNER MD Unavailable Unavailable Nikolay REYES MD Unavailable [...] Unavailable Unavailable Nikolay REYES MD Unavailable Unavailable Nioklay REYES MD Unavailable Unavailable Nikolay REYES MD [...] Unavailable Unavailable Nikolay REYES MD Unavailable Unavailable GHULAM, M DEBBY PA [...] Unavailable GHULAM, M DEBBY PA Unavailable Unavailable Babatunde SANTILLAN MD Unavailable Unavailable BARLICHAUGABabatunde MD Unavailable Unavailable BARAYUGABabatunde MD Unavailable Unavailable BARAYUGABabatunde MD Unavailable Unavailable BARAYUGABabatunde MD Unavailable Unavailable BARAYUGABabatunde MD Unavailable Unavailable BARAYUGABabatunde MD Unavailable Unavailable BARAYUGABabatunde MD Unavailable Unavailable JONGUGABabatunde MD Unavailable Unavailable BARLICHAUGABabatunde MD Unavailable Unavailable BARLICHAUGA, Babatunde ROB MD Unavailable Unavailable BARAYUGA, Babatunde ROB MD Unavailable Unavailable BARAYUGABabatunde MD Unavailable Unavailable BARAYUGABabatunde MD Unavailable Unavailable BARAYUGABabatunde MD Unavailable Unavailable BARAYUGA, Babatunde ROB MD Unavailable Unavailable BARAYUGA, Babatunde ROB MD Unavailable Unavailable BARAYUGA, Babatunde ROB MD Unavailable Unavailable BARAYUGABabatunde MD Unavailable Unavailable JONGUGABabatunde MD Unavailable Unavailable BARLICHAUGABabatunde MD Unavailable Unavailable BARLICHAUGABabatunde MD Unavailable Unavailable BARAYUGABabatunde MD Unavailable Unavailable BARLICHAUGABabatunde MD Unavailable Unavailable BARLICHAUGABabatunde MD Unavailable Unavailable BARLICHAUGABabatunde MD Unavailable Unavailable BARLICHAUGABabatunde MD Unavailable Unavailable BARLICHAUGABabatunde MD Unavailable Unavailable BARAYUGABabatunde MD Unavailable Unavailable BARAYUGABabatunde MD Unavailable Unavailable JONGUGABabatunde MD Unavailable Unavailable BARLICHAUGABabatunde MD Unavailable Unavailable JONGUGABabatunde MD Unavailable Unavailable BARAYUGABabatunde MD Unavailable Unavailable BARAYUGABabatunde MD Unavailable Unavailable LETTIERE, A JAIME PA Unavailable [...] Unavailable LETTIERE, A JAIME PA Unavailable Unavailable EVER, B RM CHEMICAL TECHNICIAN Unavailable Unavailable EVER, B RM CHEMICAL TECHNICIAN Unavailable Unavailable EVER, B RM CHEMICAL TECHNICIAN Unavailable Unavailable EVER, B RM CHEMICAL TECHNICIAN Unavailable Unavailable EVER, B RM CHEMICAL TECHNICIAN Unavailable Unavailable EVER, B RM CHEMICAL TECHNICIAN Unavailable Unavailable EVER, B RM CHEMICAL TECHNICIAN Unavailable Unavailable EVER, B RM CHEMICAL TECHNICIAN Unavailable Unavailable EVER, B RM CHEMICAL TECHNICIAN Unavailable Unavailable EVER, B RM CHEMICAL TECHNICIAN Unavailable Unavailable EVER, B RM CHEMICAL TECHNICIAN Unavailable Unavailable EVER, B RM CHEMICAL TECHNICIAN Unavailable Unavailable EVER, B RM CHEMICAL TECHNICIAN Unavailable Unavailable EVER, B RM CHEMICAL TECHNICIAN Unavailable Unavailable EVER, B RM CHEMICAL TECHNICIAN Unavailable Unavailable EVER, B RM CHEMICAL TECHNICIAN Unavailable Unavailable EVER, B RM CHEMICAL TECHNICIAN Unavailable Unavailable EVER, B RM CHEMICAL TECHNICIAN Unavailable Unavailable EVER, B RM CHEMICAL TECHNICIAN Unavailable Unavailable EVER, B RM CHEMICAL TECHNICIAN Unavailable Unavailable EVER, B RM CHEMICAL TECHNICIAN Unavailable Unavailable EVER, B RM CHEMICAL TECHNICIAN Unavailable Unavailable EVER, B RM CHEMICAL TECHNICIAN Unavailable Unavailable EVER, B RM CHEMICAL TECHNICIAN Unavailable Unavailable EVER, B RM CHEMICAL TECHNICIAN Unavailable Unavailable EVER, B RM CHEMICAL TECHNICIAN Unavailable Unavailable EVER, B RM CHEMICAL TECHNICIAN Unavailable Unavailable EVER, B RM CHEMICAL TECHNICIAN Unavailable Unavailable EVER, B RM CHEMICAL TECHNICIAN Unavailable Unavailable EVER, B RM CHEMICAL TECHNICIAN Unavailable Unavailable EVER, B RM CHEMICAL TECHNICIAN Unavailable Unavailable EVER, B RM CHEMICAL TECHNICIAN Unavailable Unavailable EVER, B RM CHEMICAL TECHNICIAN Unavailable Unavailable EVER, B RM CHEMICAL TECHNICIAN Unavailable Unavailable EVER, B RM CHEMICAL TECHNICIAN Unavailable Unavailable EVER, B RM CHEMICAL TECHNICIAN Unavailable Unavailable EVER, B RM CHEMICAL TECHNICIAN Unavailable Unavailable EVER, B RM CHEMICAL TECHNICIAN Unavailable Unavailable EVER, B RM CHEMICAL TECHNICIAN Unavailable Unavailable EVER, B RM CHEMICAL TECHNICIAN Unavailable Unavailable EVER, B RM CHEMICAL TECHNICIAN Unavailable Unavailable EVER, B RM CHEMICAL TECHNICIAN Unavailable Unavailable EVER, B RM CHEMICAL TECHNICIAN Unavailable Unavailable EVER, B RM CHEMICAL TECHNICIAN Unavailable Unavailable EVER, B RM CHEMICAL TECHNICIAN Unavailable Unavailable EVER, B RM CHEMICAL TECHNICIAN Unavailable Unavailable EVER, B RM CHEMICAL TECHNICIAN Unavailable Unavailable EVER, B RM CHEMICAL TECHNICIAN Unavailable Unavailable EVER, B RM CHEMICAL TECHNICIAN Unavailable Unavailable EVER, B RM CHEMICAL TECHNICIAN Unavailable Unavailable EVER, B RM CHEMICAL TECHNICIAN Unavailable Unavailable EVER, B RM CHEMICAL TECHNICIAN Unavailable Unavailable EVER, B RM CHEMICAL TECHNICIAN Unavailable Unavailable EVER, B RM CHEMICAL TECHNICIAN Unavailable Unavailable EVER, B RM CHEMICAL TECHNICIAN Unavailable Unavailable EVER, B RM CHEMICAL TECHNICIAN Unavailable Unavailable EVER, B RM CHEMICAL TECHNICIAN Unavailable Unavailable EVER, B RM CHEMICAL TECHNICIAN Unavailable Unavailable EVER, B RM CHEMICAL TECHNICIAN Unavailable Unavailable EVER, B RM CHEMICAL TECHNICIAN Unavailable Unavailable EVER, B RM CHEMICAL TECHNICIAN Unavailable Unavailable EVER, B RM CHEMICAL TECHNICIAN Unavailable Unavailable Fish, B Dilia ZAPATA Unavailable Unavailable Fish, B Dilia ZAPATA Unavailable Unavailable Fish, B Dilia ZAPATA Unavailable Unavailable Fish, B Dilia ZAPATA Unavailable Unavailable Fish, B Dilia ZAPATA Unavailable Unavailable Fish, B Dilia ZAPATA Unavailable Unavailable Fish, B Dilia ZAPATA Unavailable Unavailable Fish, B Dilia ZAPATA Unavailable Unavailable Fish, B Dilia ZAPATA Unavailable Unavailable Fish, B Dilia ZAPATA Unavailable Unavailable Fish, B Dilia ZAPATA Unavailable Unavailable Fish, B Dilia ZAPATA Unavailable Unavailable Fish, Babatunde Dobbs MD Unavailable Unavailable Fish, B Dilia ZAPATA Unavailable Unavailable Fish, B Dilia ZAPATA Unavailable Unavailable Fish, B Dilia ZAPATA Unavailable Unavailable Fish, B Dilia ZAPATA Unavailable Unavailable Fish, B Dilia ZAPATA Unavailable Unavailable Fish, B Dilia ZAPATA Unavailable Unavailable Fish, B Dilia ZAPATA Unavailable Unavailable Fish, B Dilia ZAPATA Unavailable Unavailable Fish, B Dilia ZAPATA Unavailable Unavailable Fish, B Dilia ZAPATA Unavailable Unavailable Fish, B Dilia ZAPATA Unavailable Unavailable Fish, B Dilia ZAPATA Unavailable Unavailable Fish, B Dilia ZAPATA Unavailable Unavailable Fish, B Dilia ZAPATA Unavailable Unavailable Fish, B Dilia ZAPATA Unavailable Unavailable Fish, B Dilia ZAPATA Unavailable Unavailable Fish, B Dilia ZAPATA Unavailable Unavailable Fish, B Dilai ZAPATA Unavailable Unavailable Fish, B Dilia ZAPATA Unavailable Unavailable Fish, B Dilia ZAPATA Unavailable Unavailable Fish, B Dilia ZAPATA Unavailable Unavailable Fish, B Dilia ZAPATA Unavailable Unavailable Fish, B Dilia ZAPATA Unavailable Unavailable Fish, B Dilia ZAPATA Unavailable Unavailable Fish, B Dilia ZAPATA Unavailable Unavailable Fish, B Dilia ZAPATA Unavailable Unavailable Fish, B Dilia ZAPATA Unavailable Unavailable Fish, B Dilia ZAPATA Unavailable Unavailable Fish, B Dilia ZAPATA Unavailable Unavailable Fish, B Dilia ZAPATA Unavailable Unavailable Fish, B Dilia ZAPATA Unavailable Unavailable Fish, B Dilia ZAPATA Unavailable Unavailable Fish, B Dilia ZAPATA Unavailable Unavailable Fish, B Dilia ZAPATA Unavailable Unavailable Fish, B Dilia ZAPATA Unavailable Unavailable Fish, B Dilia ZAPATA Unavailable Unavailable Fish, B Dilia ZAPATA Unavailable Unavailable Fish, B Dilia ZAPATA Unavailable Unavailable Fish, B Dilia ZAPATA Unavailable Unavailable Fish, B Dilia ZAPATA Unavailable Unavailable Fish, B Dilia ZAPATA Unavailable Unavailable Fish, B Dilia ZAPATA Unavailable Unavailable Fish, B Dilia ZAPATA Unavailable Unavailable Fish, B Dilia ZAPATA Unavailable Unavailable Fish, B Dilia ZAPATA Unavailable Unavailable Fish, B Dilia ZAPATA Unavailable Unavailable Fish, B Dilia ZAPATA Unavailable Unavailable Fish, B Dilia ZAPATA Unavailable Unavailable Fish, B Dilia ZAPATA Unavailable Unavailable Fish, B Dilia ZAPATA Unavailable Unavailable Fish, B Dilia ZAPATA Unavailable Unavailable Fish, B Dilia ZAPATA Unavailable Unavailable Kevin, D Jaime PA [...] Unavailable Kevin, D Jaime PA Unavailable Unavailable Fish, J Ganga Unavailable Unavailable Fish, J Ganga Unavailable Unavailable Fish, J Ganga Unavailable Unavailable Fish, J Ganga Unavailable Unavailable Fish, J Ganga Unavailable Unavailable Fish, J Ganga Unavailable Unavailable Fish, J Ganga Unavailable Unavailable Fish, J Ganga Unavailable Unavailable Fish, J Ganga Unavailable Unavailable Fish, J Ganga Unavailable Unavailable Fish, J Ganga Unavailable Unavailable Fish, J Ganga Unavailable Unavailable Fish, J Ganga Unavailable Unavailable Fish, J Ganga Unavailable Unavailable Fish, J Ganga Unavailable Unavailable Fish, J Ganga Unavailable Unavailable Fish, J Ganga Unavailable Unavailable Fish, J Ganga Unavailable Unavailable Fish, J Ganga Unavailable Unavailable Fish, J Ganga Unavailable Unavailable Fish, J Ganga Unavailable Unavailable Fish, J Ganga Unavailable Unavailable Fish, J Ganga Unavailable Unavailable Fish, J Ganga Unavailable Unavailable Fish, J Ganga Unavailable Unavailable Fish, J Ganga Unavailable Unavailable Fish, J Ganga Unavailable Unavailable Fish, J Ganga Unavailable Unavailable Fish, J Ganga Unavailable Unavailable Fish, J Ganga Unavailable Unavailable Fish, J Ganga Unavailable Unavailable Fish, J Ganga Unavailable Unavailable Fish, J Ganga Unavailable Unavailable Fish, J Ganga Unavailable Unavailable Fish, J Ganga Unavailable Unavailable Fish, J Ganga Unavailable Unavailable Fish, J Ganga Unavailable Unavailable Fish, J Ganga Unavailable Unavailable Fish, J Ganga Unavailable Unavailable Fish, J Ganga Unavailable Unavailable Fish, J Ganga Unavailable Unavailable Fish, J Ganga Unavailable Unavailable Fish, J Ganga Unavailable Unavailable Fish, J Ganga Unavailable Unavailable Fish, J Ganga Unavailable Unavailable Fish, J Ganga Unavailable Unavailable Fish, J Ganga Unavailable Unavailable Fish, J Ganga Unavailable Unavailable Fish, J Ganga Unavailable Unavailable Fish, J Ganga Unavailable Unavailable Fish, J Ganga Unavailable Unavailable Fish, J Ganga Unavailable Unavailable Fish, J Ganga Unavailable Unavailable Fish, J Ganga Unavailable Unavailable Fish, J Ganga Unavailable Unavailable Fish, J Agnga Unavailable Unavailable Fish, J Ganga Unavailable Unavailable Fish, J Ganga Unavailable Unavailable Fish, J Ganga Unavailable Unavailable Fish, J Ganga Unavailable Unavailable Fish, J Ganga Unavailable Unavailable Fish, J Ganga Unavailable Unavailable Fish, J Ganga Unavailable Unavailable Fish, J Ganga Unavailable Unavailable Fish, J Ganga Unavailable Unavailable Fish, J Ganga Unavailable Unavailable Fish, J Ganga Unavailable Unavailable Fish, J Ganga Unavailable Unavailable Fish, J Ganga Unavailable Unavailable Fish, J Ganga Unavailable Unavailable Fish, J Ganga Unavailable Unavailable Fish, J Ganga Unavailable Unavailable Fish, J Ganga Unavailable Unavailable Fish, J Ganga Unavailable Unavailable Fish, J Ganga Unavailable Unavailable Fish, J Ganga Unavailable Unavailable Fish, J Ganga Unavailable Unavailable Fish, J Ganga Unavailable Unavailable Fish, J Ganga Unavailable Unavailable Fish, J Ganga Unavailable Unavailable Fish, J Ganga Unavailable Unavailable Fish, J Ganga Unavailable Unavailable Fish, J Ganga Unavailable Unavailable Fish, J Ganga Unavailable Unavailable Fish, J Ganga Unavailable Unavailable Ramon KINGSTON MD Unavailable Unavailable [...] Unavailable Unavailable Ramon KINGSTON MD Unavailable Unavailable VASHTI, H JAMISON MD Unavailable Unavailable VASHTI, H JAMISON MD Unavailable Unavailable VASHTI, H JAMISON MD Unavailable Unavailable VASHTI, H JAMISON MD Unavailable Unavailable VASHTI, H JAMISON MD Unavailable Unavailable VASHTI, H JAMISON MD Unavailable Unavailable VASHTI, H JAMISON MD Unavailable Unavailable VASHTI, H JAMISON MD Unavailable Unavailable VASHTI, H JAMISON MD Unavailable Unavailable VASHTI, H JAMISON MD Unavailable Unavailable VASHTI, H JAMISON MD Unavailable Unavailable VASHTI, H JAMISON MD Unavailable Unavailable VASHTI, H JAMISON MD Unavailable Unavailable VASHTI, H JAMISON MD Unavailable Unavailable VASHTI, H JAMISON MD Unavailable Unavailable VASHTI, H JAMISON MD Unavailable Unavailable VASHTI, H JAMISON MD Unavailable Unavailable Re-disclosure Warning The records that [...] is protected by Article 27-F of the [facility] Public Health law. If you continue you may have access to information: Regarding HIV / AIDS; Provided by facilities licensed or operated by the [facility] Office of Mental Health; or Provided by the [facility] Office for People With Developmental Disabilities. If such information is present, then the following [facility] mandated warning applies: This information has [...] law may result in a fine or custodial sentence or both. A general authorization for the release of medical or other information is NOT sufficient authorization for further disc losure. Allergies and Adverse Reactions Type Description Substance Reaction Status Data Source(s ) Drug Allergy NKDA NKDA [facility] ([facility]) Family History Family Member Name Family Member Gender Family Member Status Date o f Status Description Data Source(s) Unknown Unknown Problem [facility] ([facility]) father,mother,sister Unknown Unknown Problem [facility] ([facility] Unknown Female Problem [facility] ([facility]) Unknown Female Problem [facility] ([facility]) Unknown Female Problem [facility] ([facility] Unknown Female Problem [facility] ([facility]) Unknown Female Problem [facility] ([facility]) Unknown Female Problem [facility] ([facility]) Unknown Female Problem [facility] Encounters Encounter Providers Location Date Indications Data Source(s ) Outpatient Attender: JAMISON KINGSTON MD [place] Office 11/2020 10:40:00 AM EDT [facility] ([facility] Outpatient Attender: LIANE Barnes/Farideh/Rakesh/ Reindl 10/29/2020 11:15:00 AM EDT [facility] ([facility] Outpatient Attender: JAMISON KINGSTON MD [place] [facility] 11:00:00 AM EDT [facility] ([facility] Outpatient Attender: JAMISON KINGSTON MD [place] [facility] 11:15:00 AM EDT [facility] ([facility] Outpatient Attender: Jamison Barnes/Farideh/Rakesh/Re indl 10/17/2020 01:45:00 PM EDT [facility] ([facility]) Outpatient Attender: Ganga Cain [place] [facility] 10/10/2020 09:30:0 0 AM EDT [facility] ([facility] Outpatient Attender: JAMISON KINGSTON MD [place] [facility] 02:00:00 PM EDT [facility] ([facility] Outpatient Attender: LIANE Barnes/Farideh/Rakesh/ Reindl 09/12/2020 10:45:00 AM EDT [facility] ([facility] Outpatient Attender: RM CURTIS NP Physical Therapy 10:45:00 AM EDT [facility] ([facility]) Outpatient Attender: JAIME ashleyy 09/03/2020 05:30:00 PM EDT [facility] ([facility] Outpatient Attender: JAMISON KINGSTON MD [place] [facility] 02/2020 10:20:00 AM EDT [facility] ([facility] OFFICE OUTPATIENT NEW 60 MINUTES Attender: Dilia Cain MD Physi michael Therapy 07/16/2020 01:00:00 PM EDT [facility] ([facility]) Outpatient Attender: JAMISON KINGSTON MD [place] [facility] 11:15:00 AM EDT [facility] ([facility] Office Visit Attender: LIAEN Barnes/Farideh/Rakesh/ Reinjavon 06/20/2020 10:00:00 AM EDT [facility] ([facility] Outpatient Attender: JAMISON KINGSTON MD [place] [facility] 11:30:00 AM EDT [facility] ([facility] Office Visit Attender: LIANE Barnes/[place]/Rakesh/ Reindl 06/06/2020 09:30:00 AM EDT [facility] ([facility] Outpatient Attender: JAMISON KINGSTON MD [place] [facility] 03/2020 02:00:00 PM EDT [facility] ([facility] Office Visit Attender: LIANE Barnes/Farideh/Rakesh/ Reindl 05/23/2020 09:45:00 AM EDT [facility] ([facility] Outpatient Attender: JAMISON KINGSTON MD [place] [facility] 01/2021 02:00:00 PM EST [facility] ([facility] Outpatient Attender: LIANE Barnes/[place]/Rakesh/ Reindl 04/18/2020 12:45:00 PM EST [facility] ([facility] Outpatient Attender: JAMISON [place] Office 02:40:00 PM EST [facility] ([facility] Outpatient Attender: CATHIE Barnes/Farideh/Ang el/Reindl 03/18/2020 08:00:00 AM EST [facility] ([facility] OFFICE OUTPATIENT VISIT 15 MINUTES Attender: Christophe VALENCIA Physical Therapy 03/12/2020 09:30:00 AM EST [facility] ([facility]) OFFICE OUTPATIENT VISIT 15 MINUTES Attender: Christophe VALENCIA Physical Therapy 02/27/2020 09:30:00 AM EST [facility] ([facility]) OFFICE OUTPATIENT VISIT 15 MINUTES Attender: DEBBY VALENCIA Ph ysical Therapy 01/22/2020 04:45:00 PM EST [facility] ([facility]) Outpatient Attender: JAIME Silva Prim marcial 01/21/2020 12:15:00 PM EST [facility] ([facility] Emergency Attender: MICHAEL BRUNER MDConsultant: JAMISON OSWALD MD 12/31/2019 03:26:00 PM EST - 12/31/2019 06:17:00 PM EST [facility] Patient discharged. Outpatient Attender: Jaime VALENCIA [place] [facility] 06/2019 12:15:00 PM EST [facility] ([facility] Outpatient Attender: CATHIE Barnes/Farideh/Ang el/Reinjavon 12/13/2019 11:30:00 AM EDT [facility] ([facility] Outpatient Attender: JAMISON [facility] Office 01:30:00 PM EDT [facility] ([facility] Outpatient Attender: JAMISON [facility] Office 10:00:00 AM EDT [facility] ([facility] Immunizations Vaccine Date Status Description Data Source(s) New in 2012. IIV4 11/01/2020 11:05:00 AM EDT completed [facility] ([facility] COVID-19 VACCINE Moderna 06/10/2020 12:00:00 AM EDT completed [facility] Vaccine Series Complete: YESThis Data wa s Submitted to [facility] Via [facility]. COVID-19 VACC,MRNA(MODERNA)/PF 06/10/2020 12:00:00 AM EDT completed [facility] COVID-19 VACCINE, MRNA-1273, LNP-S (MODERNA)/PF 05/18/2020 1 2:00:00 AM EDT completed [facility] COVID-19 VACCINE Moderna 05/17/2020 12:00:00 AM EDT completed [facility] Vaccine Series Complete: NOThis Data was Submitted to [facility]. New in 2012. IIV4 11/06/2019 11:01:00 AM EDT completed [facility] ([facility] Medications Medication Brand Name Start Date Product Form Dose Route Admi nistrative Instructions Pharmacy Instructions Status Indications Reaction Description Data Source(s) 3 mg/0.5 mL 11/26/2020 12:00:00 AM EDT pen injector 2 INJECT 1 SUBCUTANEOUSLY ONCE PER WEEK ON WEDNESDAY INJECT 1 SUBCUTANEOUSLY ONCE PER WEEK ON WEDNESDAY SOLD: 12/20/2020 [facility] 5 mg 11/21/2020 12:00:00 AM EDT tablet 30 TAKE ONE TABLET BY MOUTH EVERY MORNING TAKE ONE TABLET BY MOUTH EVERY MORNING SOLD: 11/22/2020 [facility] 5 mg 11/21/2020 12:00:00 AM EDT tablet 30 TAKE ONE TABLET BY MOUTH EVERY MORNING TAKE ONE TABLET BY MOUTH EVERY MORNING SOLD: 12/20/2020 [facility] 5 mg 11/15/2020 12:00:00 AM EDT tablet 30 TAKE ONE TABLET BY MOUTH EVERY MORNING TAKE ONE TABLET BY MOUTH EVERY MORNING SOLD: 11/22/2020 [facility] 5 mg 11/15/2020 12:00:00 AM EDT tablet 30 TAKE ONE TABLET BY MOUTH EVERY MORNING TAKE ONE TABLET BY MOUTH EVERY MORNING SOLD: 12/20/2020 [facility] Lisinopril 5 MG Oral Tablet Lisinopril 11/01/2020 12:00:00 AM EDT ORAL active [facility] ([facility] empagliflozin 10 MG Oral Tablet [Jardiance] Jardiance 11/01/2020 12:00:00 AM EDT ORAL active [facility] ([facility] 500 mg 10/30/2020 12:00:00 AM EDT tablet 60 TAKE ONE TABLET BY MOUTH TWICE A DAY FOR PAIN TAKE ONE TABLET BY MOUTH TWICE A DAY FOR PAIN SOLD: 10/30/2020 [facility] Trulicity Trulicity 10/22/2020 12:00:00 AM EDT act mario MED[facility] ([facility] 3 ML insulin detemir 100 UNT/ML Pen Injector [Levemir] Levem ir Flextouch 10/22/2020 12:00:00 AM EDT active [facility] ([facility] 0.5 ML dulaglutide 3 MG/ML Auto-Injector [Trulicity] Trulici ty 10/18/2020 12:00:00 AM EDT completed [facility] ([facility] empagliflozin 25 MG Oral Tablet [Jardiance] Jardiance 10/18/2020 12:00:00 AM EDT ORAL completed [facility] ([facility] 33 gauge 10/12/2020 12:00:00 AM EDT misc 100 TEST TWO TIMES A DAY NEEDED TEST TWO TIMES A DAY NEEDED SOLD: 10/30/2020 [facility] 5 mg 10/07/2020 12:00:00 AM EDT tablet 30 TAKE ONE TABLET BY MOUTH EVERY DAY TAKE ONE TABLET BY MOUTH EVERY DAY SOLD: 10/10/2020 [facility] 2.5 mg 10/07/2020 12:00:00 AM EDT tablet 15 TAKE TWO TABLETS BY MOUTH AT BEDTIME TAKE TWO TABLETS BY MOUTH AT BEDTIME SOLD: 10/10/2020 [facility] 5 mg 10/05/2020 12:00:00 AM EDT tablet 30 TAKE ONE TABLET BY MOUTH EVERY DAY TAKE ONE TABLET BY MOUTH EVERY DAY SOLD: 10/10/2020 [facility] 0.5 ML dulaglutide 3 MG/ML Auto-Injector [Trulicity] Trulici ty 09/11/2020 12:00:00 AM EDT active M [facility]ENT ([facility]) 0.75 mg/0.5 mL 09/04/2020 12:00:00 AM EDT pen injector 2 INJECT 1 SUBCUTANEOUSLY ONCE WEEKLY INJECT 1 SUBCUTANEOUSLY ONCE WEEKLY SOLD: 09/04/2020 [facility] 10 mg 09/04/2020 12:00:00 AM EDT tablet 30 TAKE ONE TABLET BY MOUTH EVERY DAY TAKE ONE TABLET BY MOUTH EVERY DAY SOLD: 09/04/2020 [facility] Ondansetron 4 MG Oral Tablet Ondansetron HCL 09/03/2020 12:00:00 AM EDT active [facility] ([facility] 4 mg 09/03/2020 12:00:00 AM EDT tablet 14 TAKE ONE TABLET BY MOUTH EVERY 8 HOURS NEEDED FOR NAUSEA TAKE ONE TABLET BY MOUTH EVERY 8 HOURS A S NEEDED FOR NAUSEA SOLD: 09/04/2020 [facility] BLOOD SUGAR DIAGNOSTIC 08/05/2020 12:00:00 AM EDT strip 100 USE TO TEST BLOOD SUGAR TWICE A DAY AND NEEDED USE TO TEST BLOOD SUGAR TWICE A DAY AND NEEDED SOLD: 08/26/2020 [facility] BLOOD SUGAR DIAGNOSTIC 08/05/2020 12:00:00 AM EDT strip 100 USE TO TEST BLOOD SUGAR TWICE A DAY AND NEEDED USE TO TEST BLOOD SUGAR TWICE A DAY AND NEEDED SOLD: 08/26/2020 [facility] 10 mg 07/17/2020 12:00:00 AM EDT tablet 30 TAKE ONE TABLET BY MOUTH EVERY DAY TAKE ONE TABLET BY MOUTH EVERY DAY SOLD: 07/17/2020 [facility] 0.75 mg/0.5 mL 07/17/2020 12:00:00 AM EDT pen injector 2 INJECT 1 SUBCUTANEOUSLY ONCE WEEKLY INJECT 1 SUBCUTANEOUSLY ONCE WEEKLY SOLD: 07/17/2020 [facility] 10 mg 07/17/2020 12:00:00 AM EDT tablet 30 TAKE ONE TABLET BY MOUTH EVERY DAY TAKE ONE TABLET BY MOUTH EVERY DAY SOLD: 08/26/2020 [facility] 0.75 mg/0.5 mL 07/17/2020 12:00:00 AM EDT pen injector 2 INJECT 1 SUBCUTANEOUSLY ONCE WEEKLY INJECT 1 SUBCUTANEOUSLY ONCE WEEKLY SOLD: 08/26/2020 [facility] 0.5 ML dulaglutide 1.5 MG/ML [facility]-Injector [facility] 07/16/2020 12:00:00 AM EDT completed [facility] ([facility]) empagliflozin 10 MG Oral Tablet [Jardiance] Jardiance 07/16/2020 12:00:00 AM EDT ORAL active [facility] 100 unit/mL 07/03/2020 12:00:00 AM EDT solution 10 INJECT 7 UNITS UNDER THE SKIN TWO TIMES A DAY INJECT 7 UNITS UNDER THE SKIN TWO TIMES A DAY SOLD: 07/03/2020 [facility] insulin detemir 100 UNT/ML Injectable Solution [Levemir] Lev marina 07/03/2020 12:00:00 AM EDT active M ED[facility] ([facility]) 1 mg 06/18/2020 12:00:00 AM EDT recon soln 1 DIRECTED DIRECTED SOLD: 06/20/2020 [facility] Glucagon 1 MG Injection Glucagon Emergency 06/18/2020 12:00:00 AM EDT active [facility] ([facility] Metformin hydrochloride 1000 MG Oral Tablet 1,000 mg METFORM IN HCL 05/20/2020 12:00:00 AM EDT tablet 60 TAKE ONE TABLET BY MOUTH TWICE A DAY AT 8:00AM AND 6:00PM TAKE ONE TABLET BY MOUTH TWICE A DAY AT 8:00AM AND 6:0 0PM SOLD: 05/21/2020 [facility] Acetaminophen 325 MG / Hydrocodone Bitartrate 5 MG Oral Tabl et [Novi] Novi 05/10/2020 12:00:00 AM EDT ORAL completed [facility] ([facility], ) 5-325 mg 05/10/2020 12:00:00 AM EDT tablet 12 TAKE ONE TABLET BY MOUTH THREE TIMES A DAY NEEDED FOR PAIN MAXIMUM DAILY DOSE = 3 TABLETS TAKE ONE TABLET BY MOUTH THREE TIMES A DAY NEEDED FOR PAIN MAXIMUM DAILY DOSE = 3 TABLETS SOLD: 05/21/2020 [facility] Docusate Sodium 100 MG Oral Capsule [DOK] Dok 04/30/2020 12:00:0 0 AM EST completed [facility] ([facility] 420 gram 04/10/2020 12:00:00 AM EST recon soln 4000 A S DIRECTED DIRECTED SOLD: 04/11/2020 [facility] 100 unit/mL (3 mL) 04/09/2020 12:00:00 AM EST insulin pen 3 INJECT 10 UNITS UNDER THE SKIN EVERY MORNING INJECT 10 UNITS UNDER THE SKIN EVERY MORNING SOLD: 05/21/2020 [facility] 100 unit/mL (3 mL) 04/09/2020 12:00:00 AM EST insulin pen 3 INJECT 10 UNITS UNDER THE SKIN EVERY MORNING INJECT 10 UNITS UNDER THE SKIN EVERY MORNING SOLD: 06/07/2020 [facility] 100 unit/mL (3 mL) 04/09/2020 12:00:00 AM EST insulin pen 3 INJECT 10 UNITS UNDER THE SKIN EVERY MORNING INJECT 10 UNITS UNDER THE SKIN EVERY MORNING SOLD: 04/09/2020 [facility] 3 ML insulin human, isophane 100 UNT/ML Pen Injector [ Humulin N] Humulin N Kwikpen 04/08/2020 12:00:00 AM EST completed [facility] ([facility] Bisacodyl 5 MG Delayed Release Oral Tablet [Dulcolax] Dulcol ax 03/18/2020 12:00:00 AM EST completed [facility] ([facility], ) POLYETHYLENE GLYCOL 3350 142 MG/ML Oral Solution [Miralax] M iralax 03/18/2020 12:00:00 AM EST completed [facility] ([facility], ) Dicyclomine Hydrochloride 20 MG Oral Tablet Dicyclomine HCL 03/18/2020 12:00:00 AM EST ORAL completed [facility] ([facility], ) Clenpiq Clenpiq 03/18/2020 12:00:00 AM EST complet ed [facility] ([facility], ) POLYETHYLENE GLYCOL 3350 105 MG/ML / Pot assium Chloride 0.42392 MEQ/ML / Sodium Bicarbonate 0.017 MEQ/ML / Sodium Chloride 0.0479 MEQ/ML Oral Solution [GaviLyte-N] Gavilyte-N With Flavor Pack 03/18/2020 12:00:00 AM EST completed [facility] ([facility], ) 20 mg 03/18/2020 12:00:00 AM EST tablet 90 TAKE 1 TABLET BY MOUTH 2-3 TIMES DAILY AT LEAST 15 MINUTES BEFORE MEALS FOR DIARRHEA AND ABDOMINAL CRAMPS TAKE 1 TABLET BY MOUTH 2-3 TIMES DAILY AT LEAST 15 MINUTES BEFORE MEALS FOR DIARRHEA AND ABDOMINAL CRAMPS SOLD: 04/09/2020 [facility] 100 unit/mL (3 mL) 03/03/2020 12:00:00 AM EST insulin pen 15 INJECT 40 UNITS SUBCUTANEOUSLY ONCE DAILY INJECT 40 UNITS SUBCUTANEOUSLY ONCE DAILY SOLD: 03/03/2020 [facility] Insulin Syringe-Needle U-100 01/24/2020 12:00:00 AM EST active [facility] ([facility] 10 mg 12/14/2019 12:00:00 AM EDT capsule 60 TAKE 1 TABLET BY MOUTH BEFORE LUNCH AND DINNER FOR COURSE OF 8 WEEKS FOR ABDOMINAL CRAMPING TAKE 1 TABLET BY MOUTH BEFORE LUNCH AND DINNER FOR COURSE OF 8 WEEKS FOR ABDOMINAL CRAMPING SOLD: 12/20/2019 [facility] Dicyclomine Hydrochloride 10 MG Oral Capsule Dicyclomine HCL 12/13/2019 12:00:00 AM EDT ORAL completed [facility] ([facility], ) BLOOD-GLUCOSE METER 12/08/2019 12:00:00 AM EDT misc 1 USE UP TO FOUR TIMES A DAY DIRECTED USE UP TO FOUR TIMES A DAY DIRECTED SOLD: 12/20/2019 [facility] Blood Glucose Monitoring System 12/06/2019 12:00:00 AM EDT active [facility] ([facility] Docusate Sodium 100 MG Oral Capsule [DOK] Dok 11/19/2019 12:00:0 0 AM EDT completed [facility] ([facility] ) Aspirin 81 MG Delayed Release Oral Tablet SM Aspirin Adult L ow Strength 11/13/2019 12:00:00 AM EDT active [facility] ([facility] Insurance Providers Payer name Policy type / Coverage type Policy ID Covered libertarian ID Covered libertarian's relationship to reynoso Policy Reynoso Plan Information [employer] Medigap Part B [id number] .[id number] Family Dependent [id number] [employer] P[employer] Medigap Part B [id number] 04.09.840.1.895931.3.227.99 .4595.81094.0 Family Dependent [id number] [employer]/Umr (Old) Medigap Part B [id number] 2.16.840.1.15474 3.3.227.99.4595.30852.0 Family Dependent [id number] [employer] P[employer] Medigap Part B [id number] 2.16.840.1.826024.3.227.99 .4595.73275.0 Family Dependent [id number] [employer]/Umr (Old) Medigap Part B [id number] 2.16.840.1.80392 3.3.227.99.4595.57822.0 Family Dependent [id number] [employer] Ppo Medigap Part B [id number] 2.16.840.1.671951.3.227.99 .4595.04633.0 Family Dependent [id number] [employer] Ppo Medigap Part B [id number] 2.16.840.1.013052.3.227.99 .4595.98013.0 Family Dependent [id number] [employer]/Umr (Old) Medigap Part B [id number] 2.16.840.1.85515 3.3.227.99.4595.71550.0 Family Dependent [id number] [employer] Ppo Medigap Part B [id number] 2.16.840.1.313670.3.227.99 .4595.07603.0 Family Dependent [id number] Umr [employer] P[employer] Medigap Part B [id number] 2.16.840.1.124024.3.227.9 9.4595.96609.0 Family Dependent [id number] [employer] Commercial [id number] Family Dependent 33 5 Umr [employer] P[employer] Medigap Part B [id number] 2.16.840.1.819214.3.227.9 9.4595.71570.0 Family Dependent [id number] Umr [employer] P[employer] Medigap Part B [id number] 2.16.840.1.025660.3.227.9 9.4595.39807.0 Family Dependent [id number] [employer]/Umr (Old) Medigap Part B [id number] 2.16.840.1.82912 3.3.227.99.4595.08007.0 Family Dependent [id number] [employer] (pr) Medigap Part B [id number] 2.840.1.320576.3.227.99 .991.28318.0 Family Dependent [id number] [employer] (pr) Medigap Part B [id number] 2.16840.1.098663.3.227.99 .991.50488.0 Family Dependent [id number] [employer] (pr) Medigap Part B [id number] 2.840.1.259338.3.227.99 .991.26600.0 Family Dependent [id number] [employer] (pr) Medigap Part B [id number] Family Dependent 335 Medicare Natl Govt Servic Medicare Primary [id number] Self Medicare Natl Govt Servic Medicare Primary [id number] 2.840.1.885874.3.227.99.4595.75537.0 Self [id number] Medicare Natl Govt Servic Medicare Primary [id number] 2.840.1.999220.3.227.99.4595.00244.0 Self [id number] Medicare Natl Govt Servic Medicare Primary [id number] 20.1.363427.3.227.99.4595.69303.0 Self [id number] Medicare Natl Govt Servic Medicare Primary [id number] 2.840.1.913829.3.227.99.4595.37578.0 Self [id number] Medicare Natl Govt Servic Medicare Primary [id number] 2.840.1.454562.3.227.99.4595.28113.0 Self [id number] Medicare Natl Govt Servic Medicare Primary [id number] 2.840.1.512492.3.227.99.4595.31688.0 Self [id number] Medicare Natl Govt Servic Medicare Primary [id number] 2.840.1.501927.3.227.99.4595.03124.0 Self [id number] Medicare Natl Govt Servic Medicare Primary [id number] 2.16.840.1.700171.3.227.99.4595.64149.0 Self [id number] Medicare Natl Govt Servic Medicare Primary [id number] 2.16840.1.388361.3.227.99.4595.10984.0 Self [id number] Medicare Natl Govt Servic Medicare Primary [id number] 2.16840.1.169615.3.227.99.4595.47917.0 Self [id number] Medicare Natl Govt Servic Medicare Primary [id number] 2.840.1.254612.3.227.99.4595.79084.0 Self [id number] Medicare Natl Govt Servic Medicare Primary [id number] 2.0.1.591577.3.227.99.4595.91573.0 Self [id number] Medicare Natl Govt Servic Medicare Primary [id number] 2.840.1.588803.3.227.99.[address]95.99899[id number] [facility]) Commercial [id number] 04.09.830.1.835388.3.227.99.991.13260.[id number] [facility]) Commercial Complete Choice [id number] Self Complete Choice UMR [facility] [id number] [facility] [id number] Umr ([facility]) Medigap Part B [id number] 840.1.445456.3.227 .99.4595.40937.0 Family Dependent [id number] Umr (as Of 06/22/2017) Medigap Part B [id number] 04.09.830.1.400611.3.227.99.4595.56439.0 Family Dependent [id number] MEDICARE COMPLETE [id number] [facility]/Medicare Solu Commercial [id number] 04.09.830.1.935035.3.227.99.1767.90624.0 Self [id number] UMR O [id number] P [id number] 1 MEDICARE COMPLETE-UHC O [id number] S [id number] Medicare Natl Gov't Servi Medigap Part B [id number] .1.768000.3.227.99.1767.84043.0 Self [id number] Umr/Uhc/[employer] Medigap Part B [id number] .1.852838.3.227.9 9.1767.26349.0 Family Dependent [id number] [place] [facility]/Medicare Solu Commercial [id number] .1.679304.3.227.99.1767.32863.0 Self [id number] [employer] [id number] .1.311992.3.227.99.936.22250.0 Self [id number] Umr/Uhc/[employer] Medigap Part B [id number] .1.481453.3.227.9 9.1767.70753.0 Family Dependent [id number] Medicare Natl Gov't Servi Medigap Part B [id number] .1.239742.3.227.99.1767.97961.0 Self [id number] [place] [facility]/Medicare Solu Commercial [id number] .1.213844.3.227.99.1767.70547.0 Self [id number] [employer] [id number] .1.750799.3.227.99.936.18129.0 Self [id number] [employer] Medigap Part B [id number] .1.412297.3.227.99 .936.90837.0 Family Dependent [id number] [employer] [id number] HU2 [id number] [employer] PPO O [id number] S [id number] Medicare Natl Gov't Servi Medigap Part B [id number] 2.0.1.735434.3.227.99.1767.84698.0 Self [id number] [employer] Medigap Part B [id number] 2.0.1.122915.3.227.99 .1767.06844.0 Family Dependent [id number] [place] [facility]/Medicare Solu Commercial [id number] 2.0.1.949950.3.227.99.1767.59185.0 Self [id number] [employer] Commercial [id number] 2.0.1.127469.3.227.99.936.74709.0 Self [id number] Medicare Natl Gov't Servi Medigap Part B [id number] 2.0.1.092678.3.227.99.1767.62795.0 Self [id number] [facility] Commercial [id number] 2..1.700754.3.227.99.1 767.72880.0 Family Dependent [id number] [employer] Commercial [id number] 2..1.893616.3.227.99.936.51084.0 Self [id number] [facility] Medicare Denise Commercial [id number] 00 ..1.245992.3.227.99.4595.54948.0 Self [id number] 00 [employer] Commercial [id number] 2..1.079354.3.227.99.936.94882.0 Self [id number] [employer] Commercial [id number] 2.0.1.158939.3.227.99.936.46341.0 Self [id number] [employer] Commercial [id number] 2..1.037685.3.227.99.936.28360.0 Self [id number] [employer] Medigap Part B [id number] 2..1.443070.3.227.99 .8646.71798.0 Family Dependent [id number] [place] Medicare Primary [id number] 2.0.1.893110.3.227.99.8646.17234.0 Self [id number] [facility] Medicare Commercial [id number] 2.0.1.803343.3.227.99.8646.76576.0 Self [id number] [employer] [id number] 2.0.1.456559.3.227.99.936.21517.0 Self [id number] [employer] Medigap Part B [id number] .0.1.061247.3.227.99 .1767.52055.0 Family Dependent [id number] Medicare Natl Gov't Servi Medicare Primary [id number] 20.1.165209.3.227.99.1767.72711.0 Self [id number] [employer] Medicare Sol Commercial [id number] Self [id number] [facility] [place]igap [id number] Self Ppo [employer] .1.942769 .3.227.99.936.66037.0 Self [employer] Commercial [id number] Family Dependent Medicare Dme Supplies Medigap Part B [id number] Self Medicare [facility] Medicare Primary [id number] Self MEDICARE [id number] SP [id number] A MEDICARE C [id number] S [id number] A [employer] Medigap Part B [id number] Family Dependent Medicare Natl Gov't Servi Medicare Primary [id number] Self [employer] [facility] [id number] HU2 [id number] [employer] [id number] SP [id number] GHI P [id number] S [id number] MEDICARE [id number] SP [id number] UMR [facility] [id number] HU2 [id number] MEDICARE COMPLETE [id number] SP [id number] UMR O [id number] S [id number] MEDICARE COMPLETE-UHC O [id number] S [id number] UNHC MEDICARE COMPLETE - O/P [id number] 18 [id number] R [facility] [id number] HU2 [id number] UMR O [id number] S [id number] [employer] [id number] Self [id number] [employer] Medigap Part B [id number] Family Dependent [id number] Umr Commercial [id number] Family Dependent [id number] [employer] [id number] .1.771633.3.227.99.936.23256.0 Self [id number] [employer] [id number] .1.864818.3.227.99.936.09392.0 Self [id number] Medicare Natl Gov't Servi Medigap Part B [id number] .1.635074.3.227.99.1767.40734.0 Self [id number] Umr/Uhc/[employer] Medigap Part B [id number] .1.764757.3.227.9 9.[address]187.[id number] [facility]/Medicare Solu Commercial [id number] .1.229157.3.227.99.1767.91159.0 Self [id number] Medicare Natl Gov't Servi Medigap Part B [id number] .1.522558.3.227.99.1767.28255.0 Self [id number] Umr/Uhc/[employer] Medigap Part B [id number] .1.667826.3.227.9 9.1767.57266.0 Family Dependent [id number] [place] [facility]/Medicare Solu Commercial [id number] 2.16.840.1.267129.3.227.99.1767.65524.0 Self [id number] Medicare Natl Gov't Servi Medigap Part B [id number] 2.16.840.1.480009.3.227.99.1767.31415.0 Self [id number] Umr/Uhc/[employer] Medigap Part B [id number] 2.16.840.1.292089.3.227.9 9.1767.15664.0 Family Dependent [id number] [place] [facility]CR/Medicare Solu Commercial [id number] 2.0.1.194950.3.227.99.1767.49589.0 Self [id number] Medicare Dme Supplies Medigap Part B [id number] 2.0.1.394891.3.227.99.991.34850.0 Self [id number] [place] Medigap Part B [id number] 2.0.1.771905.3.227.99.991.80567.0 Self [id number] Umr (pr) Medigap Part B [id number] 2.16840.1.883316.3.227.99.991.5017 6.0 Self [id number] [facility] [employer] [id number] 00 2.0.1.054626.3.227.99.4595.27829.0 Self [id number] 00 i/[employer] Medigap Part B [id number] 2.0.1.361970.3.227.99.4595.21120.0 Self [id number] [place] [employer] [id number] 2.160.1.441305.3.227.99.936.48755.0 Self [id number] Medicare Dme Supplies Medigap Part B [id number] 2.0.1.420264.3.227.99.991.81851.0 Self [id number] Medicare [facility] Medigap Part B [id number] 2.16.840.1.231894.3.227.99.991.56386.0 Self 0 [id number] Umr (pr) Medigap Part B [id number] 2.16.840.1.100270.3.227.99.991.5017 6.0 Self [id number] Medicare Dme Supplies Medigap Part B [id number] 2.16.840.1.509126.3.227.99.991.43635.0 Self [id number] Medicare [facility] Medigap Part B [id number] 2.16.840.1.713272.3.227.99.991.00937.0 Self 0 [id number] Umr (pr) Medigap Part B [id number] 2.16.840.1.681052.3.227.99.991.5017 6.0 Self [id number] [employer] [id number] 2.16840.1.613851.3.227.99.936.32520.0 Self [id number] Medicare Natl Gov't Servi Medigap Part B [id number] 2.16840.1.464534.3.227.99.1767.49247.0 Self [id number] Umr/Uhc/[employer] Medigap Part B [id number] 2.0.1.615993.3.227.9 9.1767.72126.0 Family Dependent [id number] Problems, Conditions, and Diagnoses Code Display Name Description Problem Type Effective Dates Data Source(s) F03796 Personal history of nicotine dependence Personal history of nicotine dependence Diagnosis 12/31/2019 03:26:00 PM [facility] 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 Diagnosis 12/31/2019 03:26:00 PM EST [facility] 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 senior care (cu 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 Diagnosis 12/31/2019 03:26:00 PM [facility] I10 Essential (primary) hypertension Essential (primary) h ypertension Diagnosis 12/31/2019 03:26:00 PM [facility] E785 Hyperlipidemia, unspecified Hyperlipidemia, unspecifie d Diagnosis 12/31/2019 03:26:00 PM [facility] E119 Type 2 diabetes mellitus without complic ations Type 2 diabetes mellitus without complications Diagnosis 12/31/2019 03:26:00 PM [facility] J9801 Acute bronchospasm Acute bronchospasm Diagnosis 09/2019 03:26:00 PM [facility] R0789 Other chest pain Other chest pain Diagnosis 12/31/2019 03 :26:00 PM [facility] Surgeries/Procedures Procedure Description Date Indications Data Source(s) DEBRIDEMENT NAIL ANY METHOD 12/20/2020 12:00:00 AM EDT [facility] ([facility] OFFICE OUTPATIENT VISIT 25 MINUTES 11/01/2020 12:00:00 AM EDT [facility] ([facility] OFFICE OUTPATIENT VISIT 15 MINUTES 10/29/2020 12:00:00 AM EDT MED[facility] ([facility], ) OFFICE OUTPATIENT VISIT 25 MINUTES 10/22/2020 12:00:00 AM EDT MED[facility] ([facility] OFFICE OUTPATIENT VISIT 25 MINUTES 10/18/2020 12:00:00 AM EDT MED[facility] ([facility] OFFICE OUTPATIENT NEW 30 MINUTES 10/17/2020 12:00:00 A M EDT MED[facility] ([facility], ) OFFICE OUTPATIENT NEW 45 MINUTES 10/17/2020 12:00:00 A M EDT [facility] ([facility], ) DEBRIDEMENT NAIL ANY METHOD 10/11/2020 12:00:00 AM EDT [facility] ([facility] Capillary Blood Collection Finger, Heel, Ear Stick 10/10/2020 12:00:00 AM EDT MED[facility] ([facility] ) OFFICE OUTPATIENT VISIT 25 MINUTES 10/10/2020 12:00:00 AM EDT [facility] ([facility] OFFICE OUTPATIENT VISIT 25 MINUTES 09/16/2020 12:00:00 AM EDT MED[facility] ([facility] OFFICE OUTPATIENT VISIT 15 MINUTES 09/12/2020 12:00:00 AM EDT MED[facility] ([facility]) OFFICE OUTPATIENT VISIT 25 MINUTES 09/11/2020 12:00:00 AM EDT MED[facility] ([facility]) OFFICE OUTPATIENT VISIT 25 MINUTES 09/03/2020 12:00:00 AM EDT MEDENT ([facility]) DEBRIDEMENT NAIL ANY METHOD 07/26/2020 12:00:00 AM EDT [facility] ([facility] OFFICE OUTPATIENT VISIT 25 MINUTES 07/23/2020 12:00:00 AM EDT [facility] ( [facility] OFFICE OUTPATIENT NEW 60 MINUTES 07/16/2020 12:00:00 A M EDT [facility] ([facility]) OFFICE OUTPATIENT VISIT 25 MINUTES 07/08/2020 12:00:00 AM EDT [facility] ([facility] OFFICE OUTPATIENT VISIT 25 MINUTES 06/18/2020 12:00:00 AM EDT [facility] ( [facility] OFFICE OUTPATIENT VISIT 25 MINUTES 05/24/2020 12:00:00 AM EDT [facility] ( [facility] DEBRIDEMENT NAIL ANY METHOD 05/17/2020 12:00:00 AM EDT [facility] ([facility] EXC TUMOR SOFT TISSUE ABDOMINAL WALL SUBQ <3CM 021 12:00:00 AM EDT [facility] ([facility]) EXC TUMOR SOFT TISSUE ABDOMINAL WALL SUBQ <3CM 021 12:00:00 AM EDT [facility] ([facility]) OFFICE OUTPATIENT VISIT 25 MINUTES 05/03/2020 12:00:00 AM EST [facility] ([facility] Diabetic Foot Exam 04/22/2020 12:00:00 AM EST [facility] ([facility]) OFFICE OUTPATIENT NEW 30 MINUTES 04/18/2020 12:00:00 A M EST [facility] ([facility], ) OFFICE OUTPATIENT VISIT 25 MINUTES 04/15/2020 12:00:00 AM EST [facility] ([facility] OFFICE OUTPATIENT VISIT 25 MINUTES 03/18/2020 12:00:00 AM EST [facility] ([facility]) RADEX FINGR MINIMUM 2 VIEWS 03/12/2020 12:00:00 AM EST [facility] ([facility]) DEBRIDEMENT NAIL ANY METHOD 03/08/2020 12:00:00 AM EST [facility] ([facility] RADEX FINGR MINIMUM 2 VIEWS 02/27/2020 12:00:00 AM EST [facility] ([facility]) DEBRIDEMENT NAIL ANY METHOD 12/28/2019 12:00:00 AM EST [facility] ([facility] Electrocardiogram Complete 12/28/2019 12:00:00 AM EST [facility] ([facility] Electrocardiogram Complete 11/22/2019 12:00:00 AM EDT [facility] ([facility] Mammogram 11/15/2019 12:00:00 AM EDT M [facility]ENT ([facility] Results ID Date Data Source [id number] 11/20/2020 09:13:00 PM EDT [facility] ([facility] Name Value Range Interpretation Code Description Data Leona rce(s) Supporting Document(s) Glucose [Mass/volume] in Capillary blood by Glucometer 309 mg/dL 83-110 Above high normal [facility] ([facility] ) ID Date Data Source [id number] 11/20/2020 07:29:00 PM EDT [facility] ([facility] Name Value Range Interpretation Code Description Data Leona rce(s) Supporting Document(s) Glucose [Mass/volume] in Capillary blood by Glucometer 208 mg/dL 83-110 Above high normal [facility] ([facility] ID Date Data Source [id number] 11/20/2020 06:58:00 PM EDT [facility] ([facility] Name Value Range Interpretation Code Description Data Leona rce(s) Supporting Document(s) Glucose [Mass/volume] in Capillary blood by Glucometer 84 mg/dL 83-110 Normal (applies to non-numeric results) [facility] ([facility] ID Date Data Source [id number] 11/20/2020 06:21:00 PM EDT [facility] ([facility] Name Value Range Interpretation Code Description Data Leona rce(s) Supporting Document(s) Glucose [Mass/volume] in Capillary blood by Glucometer 36 mg/dL 83-110 Below lower panic limits [facility] ([facility] ) Doctor Notified ID Date Data Source [id number] 11/20/2020 06:01:00 PM EDT [facility] ([facility] Name Value Range Interpretation Code Description Data Leona rce(s) Supporting Document(s) Glucose [Mass/volume] in Capillary blood by Glucometer 25 mg/dL 83-110 Below lower panic limits [facility] ([facility] ) Doctor Notified ID Date Data Source [id number] 11/20/2020 06:00:00 PM EDT [facility] ([facility] Name Value Range Interpretation Code Description Data Leona rce(s) Supporting Document(s) Glucose [Mass/volume] in Capillary blood by Glucometer 32 mg/dL 83-110 Below lower panic limits [facility] ([facility] ) Doctor Notified ID Date Data Source [id number] 11/20/2020 04:24:00 PM EDT [facility] ([facility] Name Value Range Interpretation Code Description Data Leona rce(s) Supporting Document(s) Glucose [Mass/volume] in Capillary blood by Glucometer 107 mg/dL 83-110 Normal (applies to non-numeric results) [facility] ([facility] ID Date Data Source [id number] 11/01/2020 11:10:00 AM EDT [facility] ([facility] Name Value Range Interpretation Code Description Data Leona rce(s) Supporting Document(s) Hemoglobin A1c/Hemoglobin.total in Blood 7.5 % 4.8-5.6 Above high normal [facility] ([facility] <content>Prediabetes: 5.7 - 6.4</content >
<content>Diabetes: >6.4</content>
<content>Glycemic control for adults with diabetes: <7.0</content>
<content></content> ID Date Data Source [id number] 11/01/2020 11:09:00 AM EDT [facility] ([facility] Name Value Range Interpretation Code Description Data Leona rce(s) Supporting Document(s) Chol 131 mg/dL 0-200 [facility] CHRONIC KIDNEY DISEASE STAGING PER NKF: MALE [...] REPRESENTS INDIVIDUALA AGED 2-19 YEARS EXCLUSIVE. Trig 76 mg/dL 40-200 [facility] CHRONIC KIDNEY DISEASE STAGING PER NKF: MALE [...] in HDL [Mass/volume] in Serum or Plasma 57 mg/dL 45-65 [facility] ([facility] CHRONIC KIDNEY DISEASE STAGING PER NKF: MALE [...] REPRESENTS INDIVIDUALA AGED 2-19 YEARS EXCLUSIVE. LDL_C 59 Calc 75-129 Below low normal [facility] ( [facility] CHRONIC KIDNEY DISEASE STAGING PER NKF: MALE [...] INDIVIDUALA AGED 2-19 YEARS EXCLUSIVE. Cho/HDL Ratio 2.3 Calc [facility] ([facility] CHRONIC KIDNEY DISEASE STAGING PER NKF: MALE [...] 2-19 YEARS EXCLUSIVE. ID Date Data Source [id number] 11/01/2020 11:09:00 AM EDT [facility] ([facility] Name Value Range Interpretation Code Description Data Leona rce(s) Supporting Document(s) BUN 18 mg/dL 8-23 [facility] ([facility] CHRONIC KIDNEY DISEASE STAGING PER NKF: MALE [...] REPRESENTS INDIVIDUALA AGED 2-19 YEARS EXCLUSIVE. Glu 113 mg/dL 70-110 Above high normal [facility] ([facility] CHRONIC KIDNEY DISEASE STAGING PER NKF: MALE [...] YEARS EXCLUSIVE. Creat 0.9 mg/dL 0.5-1.0 [facility] ([facility] CHRONIC KIDNEY DISEASE STAGING PER NKF: MALE [...] INDIVIDUALA AGED 2-19 YEARS EXCLUSIVE. BUN/Creatinine Ratio 20.3 CALC [facility] ([facility] CHRONIC KIDNEY DISEASE STAGING PER NKF: MALE [...] EXCLUSIVE. K 4.2 mmol/L 3.5-5.1 [facility] CHRONIC KIDNEY DISEASE STAGING PER NKF: MALE [...] REPRESENTS INDIVIDUALA AGED 2-19 YEARS EXCLUSIVE. Na 132 mmol/L 136-145 Below low normal [facility] ( [facility] CHRONIC KIDNEY DISEASE STAGING PER NKF: MALE [...] REPRESENTS INDIVIDUALA AGED 2-19 YEARS EXCLUSIVE. Co2 22.1 mmol/L 22.0-29.0 [facility] ([facility] CHRONIC KIDNEY DISEASE STAGING PER NKF: MALE [...] REPRESENTS INDIVIDUALA AGED 2-19 YEARS EXCLUSIVE. CL 94.4 mmol/L 98.0-107.0 Below low normal [facility] ([facility] CHRONIC KIDNEY DISEASE STAGING PER NKF: MALE [...] REPRESENTS INDIVIDUALA AGED 2-19 YEARS EXCLUSIVE. CA 9.4 mg/dL 8.6-10.2 [facility] CHRONIC KIDNEY DISEASE STAGING PER NKF: MALE [...] REPRESENTS INDIVIDUALA AGED 2-19 YEARS EXCLUSIVE. TP 6.2 g/dL 6.6-8.7 Below low normal [facility] ( [facility] CHRONIC KIDNEY DISEASE STAGING PER NKF: MALE [...] INDIVIDUALA AGED 2-19 YEARS EXCLUSIVE. A/G Ratio 2.3 CALC [facility] ([facility] CHRONIC KIDNEY DISEASE STAGING PER NKF: MALE [...] CALC [facility] ([facility] CHRONIC KIDNEY DISEASE STAGING PER NKF: MALE [...] REPRESENTS INDIVIDUALA AGED 2-19 YEARS EXCLUSIVE. Alb 4.3 g/dL 3.4-4.8 [facility] CHRONIC KIDNEY DISEASE STAGING PER NKF: MALE [...] YEARS EXCLUSIVE. Alt (SGPT) 9 U/L 0-41 [facility] ([facility] CHRONIC KIDNEY DISEASE STAGING PER NKF: MALE [...] REPRESENTS INDIVIDUALA AGED 2-19 YEARS EXCLUSIVE. Alp 126.2 U/L 35-129 [facility] CHRONIC KIDNEY DISEASE STAGING PER NKF: MALE [...] YEARS EXCLUSIVE. Ast (Sgot) 15 U/L 0-40 [facility] CHRONIC KIDNEY DISEASE STAGING PER NKF: MALE [...] REPRESENTS INDIVIDUALA AGED 2-19 YEARS EXCLUSIVE. Osmolality-Calculated 267.9 CALC [facility] ([facility] CHRONIC KIDNEY DISEASE STAGING PER NKF: MALE [...] REPRESENTS INDIVIDUALA AGED 2-19 YEARS EXCLUSIVE. Tbili 0.36 mg/dL 0.0-1.2 [facility] CHRONIC KIDNEY DISEASE STAGING PER NKF: MALE [...] INDIVIDUALA AGED 2-19 YEARS EXCLUSIVE. Anion Gap 20 mmol/L [facility] CHRONIC KIDNEY DISEASE STAGING PER NKF: MALE [...] INDIVIDUALA AGED 2-19 YEARS EXCLUSIVE. eGFR Non-Afr. Maldivian 65 # [facility] ([facility] CHRONIC KIDNEY DISEASE STAGING PER NKF: MALE [...] REPRESENTS INDIVIDUALA AGED 2-19 YEARS EXCLUSIVE. eGFR 75 # [facility] ( [facility] CHRONIC KIDNEY DISEASE STAGING PER NKF: MALE [...] 2-19 YEARS EXCLUSIVE. ID Date Data Source [id number] 10/15/2020 05:37:00 PM EDT [facility] ([facility] Name Value Range Interpretation Code Description Data Leona rce(s) Supporting Document(s) Glucose [Mass/volume] in Capillary blood by Glucometer 203 mg/dL 83-110 Above high normal [facility] ([facility] ) ID Date Data Source [id number] 10/15/2020 04:34:00 PM EDT [facility] ([facility] Name Value Range Interpretation Code Description Data Leona rce(s) Supporting Document(s) Glucose [Mass/volume] in Capillary blood by Glucometer 159 mg/dL 83-110 Above high normal [facility] ([facility] ID Date Data Source [id number] 10/15/2020 03:12:00 PM EDT [facility] ([facility] Name Value Range Interpretation Code Description Data Leona rce(s) Supporting Document(s) Glucose [Mass/volume] in Capillary blood by Glucometer 43 mg/dL 83-110 Below low normal [facility] ([facility] ID Date Data Source [id number] 10/15/2020 11:29:00 AM EDT [facility] ([facility] Name Value Range Interpretation Code Description Data Leona rce(s) Supporting Document(s) White Blood Count 8.1 10 4.0-10.0 Normal (applies to non-numeri c results) [facility] ([facility] Hemoglobin 14.1 g/dL 12.0-15.5 Normal (applies to non-numeric resul ts) [facility] ([facility] Red Blood Count 5.45 10 4.00-5.40 Above high normal [facility] ([facility] Hematocrit 45.9 % 36.0-47.0 Normal (applies to non-numeric resul ts) [facility] ([facility] Mean Corpuscular Volume 84.2 fl 80.0-96.0 Normal ( applies to non-numeric results) [facility] ([facility] Mean Corpuscular Hemoglobin 25.9 pg 27.0-33.0 Below low normal [facility] ([facility] Mean Corpuscular HGB Conc 30.7 g/dL 32.0-36.5 Below low normal [facility] ([facility] Red Cell Distribution Width 15.6 % 11.5-14.5 Above high normal [facility] ([facility] Platelet Count, Automated 350 10 150-450 Normal (applies to non-numeric results) [facility] ([facility] ) Neutrophils % 51.4 % 36.0-66.0 Normal (applies to non-numeric re sults) [facility] ([facility] Sevier % 6.8 % 2.0-8.0 Normal (applies to non-numeric resul ts) [facility] ([facility] Lymph % 37.8 % 24.0-44.0 Normal (applies to non-numeric resul ts) [facility] ([facility] Eos % 3.2 % 0.0-3.0 Above high normal [facility] ([facility] Baso % 0.6 % 0.0-1.0 Normal (applies to non-numeric resul ts) [facility] ([facility] Immature Granulocyte % 0.2 % 0-3.0 Normal (applies to non-n umeric results) [facility] ([facility] Nucleated Red Blood Cell % 0.0 % 0-0 Normal (applies to n on-numeric results) [facility] ([facility] Sevier # 0.6 10 0.0-0.8 Normal (applies to non-numeric resul ts) [facility] ([facility] Neutrophils # 4.2 10 1.5-8.5 Normal (applies to non-numeric re sults) [facility] ([facility] Lymph # 3.1 10 1.5-5.0 Normal (applies to non-numeric resul ts) [facility] ([facility] Eos # 0.3 10 0.0-0.5 Normal (applies to non-numeric resul ts) [facility] Baso # 0.1 10 0.0-0.2 Normal (applies to non-numeric resul ts) [facility] ([facility] ID Date Data Source [id number] 10/15/2020 11:29:[address] [facility] Name Value Range Interpretation Code Description Data Leona rce(s) Supporting Document(s) CPK Creatine Phosphokinase 43 U/L 26-192 Roselia l (applies to non-numeric results) [facility] ([facility] MB/CK Relative Index 2.33 Normal (applies to non-num ana rosa results) [facility] ([facility] <content>DIAGNOSIS CRITERIA</content>
<content>MMB ng/ml Relative Index (RI)</content>
<content>NON-AMI < or = 5 N/A</content>
<content>GIL ZONE > 5 < or = 4</content>
<content>AMI > 5 > 4</content>
<content></content> CK-MB Value Mass Laboratory test result Normal ( applies to non-numeric results) [facility] ([facility] Troponin I Laboratory test result Normal (applies to non-n umeric results) [facility] ([facility] <content>Troponin I Reference Interval f or Siemens [place] LOCI:</content>
<content></content>
<content>99th Percentile= 0.00-0.045 ng/ml</content>
<content></content>
<content>Risk Stratification:</content>
<content><= 0.10 ng/ml Decreased Risk for Adverse Clinical</content>
<content>Events.</content>
<content>0.10-1.50 ng/ml Increased Risk for Adverse Clinical</content>
<content>Events. Evaluation of additional</content>
<content>criterion and/or repeat testing in 2-6</content>
<content>hours is suggested to rule out myocardial</content>
<content>damage.</content>
<content>>= 1.50 ng/ml Indicative of Myocardial Injury.</content>
<content></content> ID Date Data Source [id number] 10/15/2020 11:29:00 AM EDT [facility] ([facility] Name Value Range Interpretation Code Description Data Leona rce(s) Supporting Document(s) Alt/SGPT 22 U/L 12-78 Normal (applies to non-numeric resul ts) [facility] ([facility] Ast/Sgot 12 U/L 7-37 Normal (applies to non-numeric resul ts) [facility] ([facility] Alkaline Phosphatase 97 U/L 45-117 Normal (applies to non-num ana rosa results) [facility] ([facility] Bilirubin,Direct Laboratory test result 0.0-0.2 Normal ( applies to non-numeric results) [facility] ([facility] Bilirubin,Total 0.2 mg/dL 0.2-1.0 Normal (applies to non-numeric results) [facility] ([facility] Albumin/Globulin Ratio 1.0 1.2-2.2 Below low normal [facility] ([facility] Total Protein 6.9 GM/DL 6.4-8.2 Normal (applies to non-numeric re sults) [facility] ([facility] Albumin 3.5 GM/DL 3.2-5.2 Normal (applies to non-numeric resul ts) [facility] ([facility] ID Date Data Source [id number] 10/15/2020 11:29:00 AM EDT [facility] ([facility] Name Value Range Interpretation Code Description Data Leona rce(s) Supporting Document(s) Glucose, Fasting 44 mg/dL 70-100 Below low normal [facility] ([facility] Creatinine For GFR 0.65 mg/dL 0.55-1.30 Normal (applies to non -numeric results) [facility] Blood Urea Nitrogen 14 mg/dL 7-18 Normal (applies to non-nume samantha results) [facility] ([facility] Glomerular Filtration Rate Laboratory test result Normal (applies to non- numeric results) [facility] ([facility] <content>Units are mL/min/1.73 m2</content>
<content></content>
<content>Chronic Kidney Disease Staging per NKF:</content>
<content></content>
<content>Stage I & II GFR >=60 Normal to Mildly Decreased</content>
<content>Stage III GFR 30- 59 Moderately Decreased</content>
<content>Stage IV GFR 15-29 Severely Decreased</content>
<content>Stage V GFR <15 Very Little GFR Left</content>
<content>ESRD GFR <15 on DOCUMENTATION DESIGNER</content>
<content></content> Potassium Serum 4.3 meq/L 3.5-5.1 Normal (applies to non-numeric results) [facility] ([facility] Sodium Level 142 meq/L 136-145 Normal (applies to non-numeric res ults) [facility] ([facility] Chloride Level 111 meq/L 98-107 Above high normal [facility] ([facility] Carbon Dioxide Level 26 meq/L 21-32 Normal (applies to non-num ana rosa results) [facility] Anion Gap 5 meq/L 8-[address] [facility] ( [facility] Calcium Level 9.2 mg/dL 8.8-10.2 Normal (applies to non-numeric re sults) [facility] ([facility] ID Date Data Source [id number] 10/15/2020 11:29:00 AM EDT [facility] ([facility] Name Value Range Interpretation Code Description Data Leona rce(s) Supporting Document(s) Thyrotropin [Units/volume] in Serum or Plasma 2.430 uIU/ML 0. 358-3.740 Normal (applies to non-numeric results) [facility] ([facility] Osmolality of Serum or Plasma 290 MOSM/KG 280-301 No rmal (applies to non-numeric results) [facility] ([facility] ID Date Data Source [id number] 10/13/2020 06:30:00 PM EDT [facility] ([facility] Name Value Range Interpretation Code Description Data Leona rce(s) Supporting Document(s) Laboratory test finding (navigational concept) 179 mg/dL 7 0-105 Above high normal [facility] ([facility] Laboratory test finding (navigational concept) 40.0 % 3 8.0-51.0 Normal (applies to non-numeric results) [facility] ([facility] Laboratory test finding (navigational concept) 141 meq/L 1 36-145 Normal (applies to non-numeric results) [facility] ([facility] Laboratory test finding (navigational concept) 4.2 mg/dL 4 .5-5.3 Below low normal [facility] ([facility] Laboratory test finding (navigational concept) 3.8 meq/L 3 .5-5.1 Normal (applies to non-numeric results) [facility] ([facility] Laboratory test finding (navigational concept) 104 meq/L 9 8-109 Normal (applies to non-numeric results) [facility] ([facility] Laboratory test finding (navigational concept) 24.0 MM/L 2 3.0-27.0 Normal (applies to non-numeric results) [facility] ([facility] Laboratory test finding (navigational concept) 28 mg/dL 8-26 Above high normal [facility] ([facility] Laboratory test finding (navigational concept) 0.9 mg/dL 0 .6-1.3 Normal (applies to non-numeric results) [facility] ([facility] ID Date Data Source [id number] 10/10/2020 10:10:00 AM EDT [facility] ([facility] Name Value Range Interpretation Code Description Data Leona rce(s) Supporting Document(s) Glucometer[facility] 214 mg/dL 65-109 Above high normal [facility] ([facility] ID Date Data Source [id number] 10/05/2020 08:30:00 PM EDT [facility] Name Value Range Interpretation Code Description Data Leona rce(s) Supporting Document(s) SARS coronavirus 2 RNA [Presence] in Res piratory specimen by DANIELA with probe detection NEGATIVE [facility] This lab was ordered by [facility] a nd reported by [facility]. ID Date Data Source [id number] 10/03/2020 04:34:00 PM EDT [facility] Name Value Range Interpretation Code Description Data Leona rce(s) Supporting Document(s) SARS coronavirus 2 RNA [Presence] in Res piratory specimen by DANIELA with probe detection NEGATIVE [facility] This lab was ordered by [facility] a nd reported by [facility]. ID Date Data Source [id number] 10/03/2020 04:14:00 PM EDT [facility] ([facility] Name Value Range Interpretation Code Description Data Leona rce(s) Supporting Document(s) Glucose [Mass/volume] in Capillary blood by Glucometer 217 mg/dL 83-110 Above high normal [facility] ([facility] ID Date Data Source [id number] 10/03/2020 02:57:00 PM EDT [facility] ([facility] Name Value Range Interpretation Code Description Data Leona rce(s) Supporting Document(s) Glucose [Mass/volume] in Capillary blood by Glucometer 77 mg/dL 83-110 Below low normal [facility] ([facility] ID Date Data Source [id number] 10/03/2020 02:21:00 PM EDT [facility] ([facility] Name Value Range Interpretation Code Description Data Leona rce(s) Supporting Document(s) Glucose [Mass/volume] in Capillary blood by Glucometer 31 mg/dL 83-110 Below lower panic limits [facility] ([facility] ID Date Data Source [id number] 10/03/2020 11:15:00 AM EDT [facility] ([facility] Name Value Range Interpretation Code Description Data Leona rce(s) Supporting Document(s) Venous Partial Pressure O2 41.4 mmHg 30.0-50.0 Roselia l (applies to non-numeric results) [facility] ([facility] Venous Partial Pressure Co2 44.2 mmHg 38.0-50.0 Norm al (applies to non-numeric results) [facility] ([facility] Venous PH 7.375 units 7.330-7.430 Normal (applies to non-numeric res ults) [facility] ([facility] Venous Hco3 25.3 meq/L 23.0-27.0 Normal (applies to non-numeric resu lts) [facility] ([facility] Venous Total Co2 26.6 meq/L 24.0-28.0 Normal (applies to non-numeric results) [facility] ([facility] Venous O2 Saturation 77.9 % 60.0-80.0 Normal (applies to non-num ana rosa results) [facility] ([facility] Venous Base Excess -0.2 Normal (applies to non-numer ic results) [facility] ([facility] Venous Standard Hco3 23.9 meq/L Normal (applies to non-num ana rosa results) [facility] ([facility] ID Date Data Source [id number] 10/03/2020 10:59:00 AM EDT [facility] ([facility] Name Value Range Interpretation Code Description Data Leona rce(s) Supporting Document(s) Red Blood Count 5.02 10 4.00-5.40 Normal (applies to non-numeric results) [facility] ([facility] White Blood Count 7.5 10 4.0-10.0 Normal (applies to non-numeri c results) [facility] ([facility] Hemoglobin 13.0 g/dL 12.0-15.5 Normal (applies to non-numeric resul ts) [facility] ([facility] Hematocrit 43.5 % 36.0-47.0 Normal (applies to non-numeric resul ts) [facility] ([facility] Mean Corpuscular Volume 86.7 fl 80.0-96.0 Normal ( applies to non-numeric results) [facility] ([facility] Mean Corpuscular Hemoglobin 25.9 pg 27.0-33.0 Below low normal [facility] ([facility] Mean Corpuscular HGB Conc 29.9 g/dL 32.0-36.5 Below low normal [facility] ([facility] Platelet Count, Automated 279 10 150-450 Normal (applies to non-numeric results) [facility] ([facility] Neutrophils % 60.9 % 36.0-66.0 Normal (applies to non-numeric re sults) [facility] ([facility] Red Cell Distribution Width 15.3 % 11.5-14.5 Above high normal [facility] ([facility] Sevier % 6.3 % 2.0-8.0 Normal (applies to non-numeric resul ts) [facility] ([facility] Eos % 1.6 % 0.0-3.0 Normal (applies to non-numeric resul ts) [facility] ([facility] Lymph % 30.2 % 24.0-44.0 Normal (applies to non-numeric resul ts) [facility] ([facility] Immature Granulocyte % 0.3 % 0-3.0 Normal (applies to non-n umeric results) [facility] ([facility] Baso % 0.7 % 0.0-1.0 Normal (applies to non-numeric resul ts) [facility] ([facility] Lymph # 2.3 10 1.5-5.0 Normal (applies to non-numeric resul ts) [facility] ([facility] Nucleated Red Blood Cell % 0.0 % 0-0 Normal (applies to n on-numeric results) [facility] ([facility] Neutrophils # 4.6 10 1.5-8.5 Normal (applies to non-numeric re sults) [facility] ([facility] Sevier # 0.5 10 0.0-0.8 Normal (applies to non-numeric resul ts) [facility] ([facility] Eos # 0.1 10 0.0-0.5 Normal (applies to non-numeric resul ts) [facility] ([facility] Baso # 0.1 10 0.0-0.2 Normal (applies to non-numeric resul ts) [facility] ([facility] ID Date Data Source [id number] 10/03/2020 10:59:00 AM EDT [facility] Name Value Range Interpretation Code Description Data Leona rce(s) Supporting Document(s) Glucose, Fasting 58 mg/dL 70-100 Below low normal ME DENT ([facility] Blood Urea Nitrogen 16 mg/dL 7-18 Normal (applies to non-nume samantha results) MEDRADHA ([facility] Creatinine For GFR 0.59 mg/dL 0.55-1.30 Normal (applies to non -numeric results) MEDRADHA ([facility] Glomerular Filtration Rate Laboratory test result Normal (applies to non- numeric results) [facility] ([facility] ) <content>Units are mL/min/1.73 m2</content>
<content></content>
<content>Chronic Kidney Disease Staging per NKF:</content>
<content></content>
<content>Stage I & II GFR >=60 Normal to Mildly Decreased</content>
<content>Stage III GFR 30- 59 Moderately Decreased</content>
<content>Stage IV GFR 15-29 Severely Decreased</content>
<content>Stage V GFR <15 Very Little GFR Left</content>
<content>ESRD GFR <15 on DOCUMENTATION DESIGNER</content>
<content></content> Sodium Level 143 meq/L 136-145 Normal (applies to non-numeric res ults) [facility] ([facility] Potassium Serum 4.0 meq/L 3.5-5.1 Normal (applies to non-numeric results) [facility] ([facility] Chloride Level 111 meq/L 98-107 Above high normal MED ENT ([facility] Carbon Dioxide Level 30 meq/L 21-32 Normal (applies to non-num ana rosa results) [facility] ([facility] Calcium Level 8.9 mg/dL 8.8-10.2 Normal (applies to non-numeric re sults) [facility] ([facility] Anion Gap 2 meq/L 8-16 Below low normal [facility] ( [facility] ID Date Data Source [id number] 10/03/2020 10:59:00 AM EDT [facility] ([facility] Name Value Range Interpretation Code Description Data Leona rce(s) Supporting Document(s) Thyrotropin [Units/volume] in Serum or Plasma 2.440 uIU/ML 0. 358-3.740 Normal (applies to non-numeric results) [facility] ([facility] Magnesium [Mass/volume] in Serum or Plasma 2.2 mg/dL 1.8-2 .4 Normal (applies to non-numeric results) [facility] ([facility]) ID Date Data Source [id number] 10/03/2020 10:59:00 AM EDT [facility] ([facility] Name Value Range Interpretation Code Description Data Leona rce(s) Supporting Document(s) CPK Creatine Phosphokinase 77 U/L 26-192 Roselia l (applies to non-numeric results) [facility] ([facility] ) MB/CK Relative Index 1.95 Normal (applies to non-num ana rosa results) [facility] ([facility] <content>DIAGNOSIS CRITERIA</content>
<content>MMB ng/ml Relative Index (RI)</content>
<content>NON-AMI < or = 5 N/A</content>
<content>GIL ZONE > 5 < or = 4</content>
<content>AMI > 5 > 4</content>
<content></content> Troponin I Laboratory test result Normal (applies to non-n umeric results) MEDRADHA ([facility] <content>Troponin I Reference Interval f or Siemens [place] LOCI:</content>
<content></content>
<content>99th Percentile= 0.00-0.045 ng/ml</content>
<content></content>
<content>Risk Stratification:</content>
<content><= 0.10 ng/ml Decreased Risk for Adverse Clinical</content>
<content>Events.</content>
<content>0.10-1.50 ng/ml Increased Risk for Adverse Clinical</content>
<content>Events. Evaluation of additional</content>
<content>criterion and/or repeat testing in 2-6</content>
<content>hours is suggested to rule out myocardial</content>
<content>damage.</content>
<content>>= 1.50 ng/ml Indicative of Myocardial Injury.</content>
<content></content> CK-MB Value Mass 1.5 ng/mL Normal (applies to non-numeric results) SHANNAN ([facility] ID Date Data Source [id number] 09/16/2020 03:14:00 PM EDT SHANNAN ([facility] Name Value Range Interpretation Code Description Data Leona rce(s) Supporting Document(s) RBC 4.78 10E6/uL 4.20-6.30 MEDRADHA ([facility] NORMAL RANGES [...] HCT IS 5% LESS SOURCE FOR DATA: [employer] 1800 OPERATION MANUAL( AUTOMATED BLOOD COUNTS AND [...] Normal 80 and above >32 mL/min Normal WBC 7.5 10E3/uL 4.1-10.9 [facility] ([facility] NORMAL RANGES Age WBC RBC HGB [...] HCT IS 5% LESS SOURCE FOR DATA: [employer] 1800 OPERATION MANUAL( AUTOMATED BLOOD COUNTS AND [...] Normal 80 and above >32 mL/min Normal HGB 12.8 g/dL 12.0-18.0 [facility] ([facility] NORMAL RANGES Age WBC RBC [...] HCT IS 5% LESS SOURCE FOR DATA: [employer] 1800 OPERATION MANUAL( AUTOMATED BLOOD COUNTS AND [...] Normal 80 and above >32 mL/min Normal HCT 42.1 % 37.0-51.0 SHANNA[facility] ([facility] NORMAL RANGES Age WBC [...] HCT IS 5% LESS SOURCE FOR DATA: [employer] 1800 OPERATION MANUAL( AUTOMATED BLOOD COUNTS AND [...] Normal 80 and above >32 mL/min Normal MCV 88.1 fL 80.0-97.0 [facility] ([facility] NORMAL RANGES Age WBC [...] Normal 80 and above >32 mL/min Normal MCH 26.8 pg 26.0-32.0 [facility] ([facility] NORMAL RANGES Age WBC RBC HGB HCT MCV PLT Adult M 4.1-10.9 4.20-6.30 12.0-18.0 37.0-51.0 80-97 140-440 Adult F 4.1-10.9 4.04-5.48 12.0-18.0 37.0-51.0 80- 140-440 0 -1 Yr 5.0-20.0 3.9-5.9 15-18 [...] Normal 80 and above >32 mL/min Normal MCHC 30.4 g/dL 31.0-36.0 Below low normal [facility] NORMAL RANGES [...] HCT IS 5% LESS SOURCE FOR DATA: [employer] 1800 OPERATION MANUAL( AUTOMATED BLOOD COUNTS AND [...] Normal 80 and above >32 mL/min Normal Lym% 24.4 % 10.0-58.5 [facility] ([facility] NORMAL [...] HCT IS 5% LESS SOURCE FOR DATA: [employer] 1800 OPERATION MANUAL( AUTOMATED BLOOD COUNTS AND [...] Normal 80 and above >32 mL/min Normal PLT 325 10E3/uL 140-440 [facility] ([facility] NORMAL RANGES Age WBC RBC HGB [...] HCT IS 5% LESS SOURCE FOR DATA: [employer] 1800 OPERATION MANUAL( AUTOMATED BLOOD COUNTS AND [...] Normal 80 and above >32 mL/min Normal RDW-CV 15.6 % 11.5-14.5 Above high normal [facility] ([facility] NORMAL RANGES Age [...] HCT IS 5% LESS SOURCE FOR DATA: [employer] 1800 OPERATION MANUAL( AUTOMATED BLOOD COUNTS AND [...] Normal 80 and above >32 mL/min Normal Neut% 69.3 % 37.0-92.0 [facility] ([facility] NORMAL RANGES [...] HCT IS 5% LESS SOURCE FOR DATA: [employer] 1800 OPERATION MANUAL( AUTOMATED BLOOD COUNTS AND [...] Normal 80 and above >32 mL/min Normal MXD% 6.3 % 0.1-24.0 [facility] ([facility] NORMAL RANGES [...] HCT IS 5% LESS SOURCE FOR DATA: [employer] 1800 OPERATION MANUAL( AUTOMATED BLOOD COUNTS AND [...] Normal 80 and above >32 mL/min Normal Neut# 5.2 % 2.0-7.8 [facility] ([facility] NORMAL [...] HCT IS 5% LESS SOURCE FOR DATA: [employer] 1800 OPERATION MANUAL( AUTOMATED BLOOD COUNTS AND [...] Normal 80 and above >32 mL/min Normal Lym# 1.8 10E3/uL 0.6-4.1 [facility] ([facility] NORMAL RANGES Age WBC RBC HGB [...] HCT IS 5% LESS SOURCE FOR DATA: [employer] 1800 OPERATION MANUAL( AUTOMATED BLOOD COUNTS AND [...] Normal 80 and above >32 mL/min Normal MXD# 0.5 10E3/uL 0.0-1.8 [employer] ([facility] NORMAL RANGES Age WBC [...] Normal 80 and above >32 mL/min Normal MPV 11.9 fL 9.0-13.0 [facility] ([facility] NORMAL RANGES Age WBC RBC [...] HCT IS 5% LESS SOURCE FOR DATA: [employer] 1800 OPERATION MANUAL( AUTOMATED BLOOD COUNTS AND [...] >32 mL/min Normal ID Date Data Source [id number] 09/16/2020 03:14:00 PM EDT MED[facility] ([facility] Name Value Range Interpretation Code Description Data Leona rce(s) Supporting Document(s) Glu 170 mg/dL 70-110 Above high normal [facility] ([facility] NORMAL RANGES Age [...] HCT IS 5% LESS SOURCE FOR DATA: [employer] 1800 OPERATION MANUAL( AUTOMATED BLOOD COUNTS AND [...] Normal 80 and above >32 mL/min Normal Creat 0.9 mg/dL 0.5-1.0 [facility] ([facility] NORMAL RANGES [...] HCT IS 5% LESS SOURCE FOR DATA: [employer] 1800 OPERATION MANUAL( AUTOMATED BLOOD COUNTS AND [...] Normal 80 and above >32 mL/min Normal BUN 18 mg/dL 8-23 [facility] ([facility] NORMAL [...] HCT IS 5% LESS SOURCE FOR DATA: [employer] 1800 OPERATION MANUAL( AUTOMATED BLOOD COUNTS AND [...] Normal 80 and above >32 mL/min Normal Na 139 mmol/L 136-145 [facility] ([facility] NORMAL RANGES Age WBC RBC [...] HCT IS 5% LESS SOURCE FOR DATA: [employer] 1800 OPERATION MANUAL( AUTOMATED BLOOD COUNTS AND [...] Normal 80 and above >32 mL/min Normal BUN/Creatinine Ratio 21.5 CALC MED[facility] ([facility] NORMAL RANGES Age WBC [...] HCT IS 5% LESS SOURCE FOR DATA: [employer] 1800 OPERATION MANUAL( AUTOMATED BLOOD COUNTS AND [...] Normal 80 and above >32 mL/min Normal K 4.5 mmol/L 3.5-5.1 SHANNAN ([facility] NORMAL RANGES Age WBC [...] HCT IS 5% LESS SOURCE FOR DATA: [employer] 1800 OPERATION MANUAL( AUTOMATED BLOOD COUNTS AND [...] Normal 80 and above >32 mL/min Normal CL 103.6 mmol/L 98.0-107.0 [facility] ([facility] NORMAL RANGES Age WBC [...] Normal 80 and above >32 mL/min Normal TP 6.4 g/dL 6.6-8.7 Below low normal [facility] ( [facility] NORMAL RANGES Age WBC RBC HGB HCT MCV PLT Adult M 4.1-10.9 4.20-6.30 12.0-18.0 37.0-51.0 80-97 140-440 Adult F 4.1-10.9 4.04-5.48 12.0-18.0 37.0-51.0 80- 140-440 0 -1 Yr 5.0-20.0 3.9-5.9 15-18 [...] HCT IS 5% LESS SOURCE FOR DATA: [employer] 1800 OPERATION MANUAL( AUTOMATED BLOOD COUNTS AND [...] Normal 80 and above >32 mL/min Normal CA 9.7 mg/dL 8.6-10.2 [facility] ([facility] NORMAL RANGES Age WBC RBC [...] HCT IS 5% LESS SOURCE FOR DATA: [employer] 1800 OPERATION MANUAL( AUTOMATED BLOOD COUNTS AND [...] Normal 80 and above >32 mL/min Normal Co2 20.9 mmol/L 22.0-29.0 Below low normal [facility] ([facility] [...] HCT IS 5% LESS SOURCE FOR DATA: [employer] 1800 OPERATION MANUAL( AUTOMATED BLOOD COUNTS AND [...] Normal 80 and above >32 mL/min Normal Globulin 2.2 CALC [facility] ([facility] NORMAL RANGES Age WBC [...] HCT IS 5% LESS SOURCE FOR DATA: [employer] 1800 OPERATION MANUAL( AUTOMATED BLOOD COUNTS AND [...] Normal 80 and above >32 mL/min Normal A/G Ratio 1.9 CALC MEDRADHA ([facility] NORMAL RANGES [...] HCT IS 5% LESS SOURCE FOR DATA: [employer] 1800 OPERATION MANUAL( AUTOMATED BLOOD COUNTS AND [...] Normal 80 and above >32 mL/min Normal Alb 4.2 g/dL 3.4-4.8 [facility] ([facility] NORMAL [...] HCT IS 5% LESS SOURCE FOR DATA: [employer] 1800 OPERATION MANUAL( AUTOMATED BLOOD COUNTS AND [...] Normal 80 and above >32 mL/min Normal Alp 99.2 U/L 35-129 [facility] ([facility] NORMAL [...] HCT IS 5% LESS SOURCE FOR DATA: [employer] 1800 OPERATION MANUAL( AUTOMATED BLOOD COUNTS AND [...] Normal 80 and above >32 mL/min Normal Alt (SGPT) 12 U/L 0-41 [facility] ([facility] NORMAL RANGES Age WBC RBC [...] HCT IS 5% LESS SOURCE FOR DATA: [employer] 1800 OPERATION MANUAL( AUTOMATED BLOOD COUNTS AND [...] Normal 80 and above >32 mL/min Normal Tbili 0.16 mg/dL 0.0-1.2 [facility] ([facility] [place] [place] NORMAL RANGES Age WBC RBC HGB [...] HCT IS 5% LESS SOURCE FOR DATA: [employer] 1800 OPERATION MANUAL( AUTOMATED BLOOD COUNTS AND [...] Normal 80 and above >32 mL/min Normal Ast (Sgot) 12 U/L 0-40 [facility] NORMAL RANGES Age WBC [...] Normal 80 and above >32 mL/min Normal Osmolality-Calculated 282.6 CALC MED ENT ([facility] [...] HCT IS 5% LESS SOURCE FOR DATA: [employer] 1800 OPERATION MANUAL( AUTOMATED BLOOD COUNTS AND [...] Normal 80 and above >32 mL/min Normal eGFR Non-Afr. Maldivian 65 # MED[facility] ([facility] [...] HCT IS 5% LESS SOURCE FOR DATA: [employer] 1800 OPERATION MANUAL( AUTOMATED BLOOD COUNTS AND [...] Normal 80 and above >32 mL/min Normal eGFR 75 # [facility] ( [facility] [...] HCT IS 5% LESS SOURCE FOR DATA: [employer] 1800 OPERATION MANUAL( AUTOMATED BLOOD COUNTS AND [...] Normal 80 and above >32 mL/min Normal Anion Gap 19 mmol/L [facility] ([facility] NORMAL RANGES Age WBC [...] HCT IS 5% LESS SOURCE FOR DATA: [employer] 1800 OPERATION MANUAL( AUTOMATED BLOOD COUNTS AND [...] >32 mL/min Normal ID Date Data Source [id number] 09/16/2020 03:14:00 PM EDT MED[facility] ([facility] Name Value Range Interpretation Code Description Data Leona rce(s) Supporting Document(s) Hemoglobin A1c/Hemoglobin.total in Blood 6.5 % 4.8-5.6 Above high normal [facility] ([facility] <content>Prediabetes: 5.7 - 6.4</content >
<content>Diabetes: >6.4</content>
<content>Glycemic control for adults with diabetes: <7.0</content>
<content></content> ID Date Data Source [id number] 09/11/2020 10:43:00 AM EDT [facility] ([facility]) Name Value Range Interpretation Code Description Data Leona rce(s) Supporting Document(s) Hemoglobin A1c/Hemoglobin.total in Blood 153 [facility] ([facility]) Glucose [Mass/volume] in Serum or Plasma Laboratory test result [facility] ([facility]) ID Date Data Source [id number] 07/13/2020 05:07:00 PM EDT [facility] Name Value Range Interpretation Code Description Data Leona rce(s) Supporting Document(s) Glucose [Mass/volume] in Capillary blood by Glucometer 177 mg/dL 83-110 Above high normal [facility] ([facility] Doctor Notified ID Date Data Source [id number] 07/13/2020 05:07:00 PM EDT [facility] ([facility]) Name Value Range Interpretation Code Description Data Leona rce(s) Supporting Document(s) Glucose [Mass/volume] in Capillary blood by Glucometer 177 83- 110 [facility] ([facility]) ID Date Data Source [id number] 07/13/2020 03:33:00 PM EDT [facility] ([facility] Name Value Range Interpretation Code Description Data Leona rce(s) Supporting Document(s) Laboratory test finding (navigational concept) 35.0 % 3 8.0-51.0 Below low normal [facility] ([facility] Laboratory test finding (navigational concept) 229 mg/dL 7 0-105 Above high normal [facility] ([facility] ) Laboratory test finding (navigational concept) 138 meq/L 1 36-145 Normal (applies to non-numeric results) [facility] ([facility] Laboratory test finding (navigational concept) 4.3 meq/L 3 .5-5.1 Normal (applies to non-numeric results) [facility] ([facility] Laboratory test finding (navigational concept) 4.7 mg/dL 4 .5-5.3 Normal (applies to non-numeric results) [facility] ([facility] Laboratory test finding (navigational concept) 100 meq/L 9 8-109 Normal (applies to non-numeric results) [facility] ([facility] Laboratory test finding (navigational concept) 26 mg/dL 8 -26 Normal (applies to non-numeric results) [facility] ([facility]) Laboratory test finding (navigational concept) 1.6 mg/dL 0 .6-1.3 Above high normal [facility] ([facility] ) Laboratory test finding (navigational concept) 31.0 MM/L 2 3.0-27.0 Above high normal [facility] ([facility] ) ID Date Data Source [id number] 07/13/2020 03:33:00 PM EDT MED[facility] ([facility]) Name Value Range Interpretation Code Description Data Leona rce(s) Supporting Document(s) Sodium [Moles/volume] in Blood 138 136-145 [facility] ([facility]) ID Date Data Source [id number] 07/13/2020 03:33:00 PM EDT MED[facility] ([facility]) Name Value Range Interpretation Code Description Data Leona rce(s) Supporting Document(s) Chloride [Moles/volume] in Blood 100 98-109 [facility] ([facility]) ID Date Data Source [id number] 07/13/2020 03:33:00 PM EDT [facility] ([facility]) Name Value Range Interpretation Code Description Data Leona rce(s) Supporting Document(s) Potassium [Moles/volume] in Blood 4.3 3.5-5.1 [facility] ([facility]) ID Date Data Source [id number] 07/13/2020 03:33:00 PM EDT MED[facility] ([facility]) Name Value Range Interpretation Code Description Data Leona rce(s) Supporting Document(s) Glucose [Mass/volume] in Blood 229 70-105 [facility] ([facility] ID Date Data Source [id number] 07/13/2020 03:33:00 PM EDT MED[facility] ([facility]) Name Value Range Interpretation Code Description Data Leona rce(s) Supporting Document(s) Calcium.ionized [Moles/volume] in Blood 4.7 4.5-5.3 [facility] ([facility]) ID Date Data Source [id number] 07/13/2020 03:33:00 PM EDT MED[facility] ([facility]) Name Value Range Interpretation Code Description Data Leona rce(s) Supporting Document(s) Carbon dioxide, total [Moles/volume] in Blood 31.0 23.0-27.0 [facility] ([facility]) ID Date Data Source [id number] 07/13/2020 03:33:00 PM EDT [facility] ([facility]) Name Value Range Interpretation Code Description Data Leona rce(s) Supporting Document(s) Urea nitrogen [Mass/volume] in Blood 26 8-26 [facility] ([facility]) ID Date Data Source [id number] 07/13/2020 03:33:00 PM EDT [facility] ([facility]) Name Value Range Interpretation Code Description Data Leona rce(s) Supporting Document(s) Creatinine [Mass/volume] in Blood 1.6 0.6-1.3 [facility] ([facility]) ID Date Data Source [id number] 07/13/2020 03:33:00 PM EDT [facility] ([facility]) Name Value Range Interpretation Code Description Data Leona rce(s) Supporting Document(s) Laboratory test finding (navigational concept) 35.0 % 38.0-51.0 [facility] ([facility]) Laboratory test finding (navigational concept) 229 mg/dL 70-105 [facility] ([facility]) Laboratory test finding (navigational concept) 138 meq/L 136-145 [facility] ([facility]) Laboratory test finding (navigational concept) 4.3 meq/L 3.5-5.1 [facility] ([facility]) Laboratory test finding (navigational concept) 4.7 mg/dL 4.5-5.3 [facility] ([facility]) Laboratory test finding (navigational concept) 100 meq/L 98-109 [facility] ([facility]) Laboratory test finding (navigational concept) 31.0 MM/L 23.0-27.0 [facility] ([facility]) Laboratory test finding (navigational concept) 26 mg/dL 8-26 [facility] ([facility]) Creatinine [Mass/volume] in Serum or Plasma 1.6 mg/dL 0.6-1.3 [facility] ([facility]) ID Date Data Source [id number] 07/13/2020 03:33:00 PM EDT [facility] ([facility]) Name Value Range Interpretation Code Description Data Leona rce(s) Supporting Document(s) Hematocrit [Volume Fraction] of Blood 35.0 38.0-51.0 [facility] ([facility]) ID Date Data Source [id number] 07/13/2020 03:12:00 PM EDT [facility] ([facility] Name Value Range Interpretation Code Description Data Leona rce(s) Supporting Document(s) Glucose [Mass/volume] in Capillary blood by Glucometer 245 mg/dL 83-110 Above high normal [facility] ([facility] ID Date Data Source [id number] 07/13/2020 03:12:00 PM EDT [facility] ([facility]) Name Value Range Interpretation Code Description Data Leona rce(s) Supporting Document(s) Glucose [Mass/volume] in Capillary blood by Glucometer 245 mg/dL 83- 110 [facility] ([facility]) ID Date Data Source [id number] 07/05/2020 01:38:00 PM EDT [facility] ([facility] Name Value Range Interpretation Code Description Data Leona rce(s) Supporting Document(s) Appearance, Urine RFX Laboratory test result Nor mal (applies to non-numeric results) [facility] ([facility] PH,Urine RFX 6.0 units 5.0-9.0 Normal (applies to non-numeric res ults) [facility] ([facility] Color, Urine RFX Laboratory test result Normal ( applies to non-numeric results) [facility] ([facility] Protein, Urine Auto RFX Laboratory test result N ormal (applies to non-numeric results) [facility] ([facility] Specific Vivian Ur Auto RFX 1.006 1.002-1.035 Nor mal (applies to non-numeric results) [facility] ([facility] ) Glucose, Urine (Ua) Auto RFX Laboratory test result Above high normal [facility] ([facility] Urobilinogen, Urine Auto RFX 0.2 mg/dL 0.0-2.0 Nor mal (applies to non-numeric results) [facility] ([facility] Ketone, Urine Auto RFX Laboratory test result No rmal (applies to non-numeric results) [facility] ([facility] ) Nitrite, Urine Auto RFX Laboratory test result N ormal (applies to non-numeric results) [facility] ([facility] ) Bilirubin, Urine Auto RFX Laboratory test result Normal (applies to non- numeric results) [facility] ([facility] ) Leukocyte Esterase Ur Auto RFX Laboratory test result Normal (applies to non- numeric results) [facility] ([facility] ) WBC, Urine Auto RFX 0 /HPF 0-3 Normal (applies to non-nume samantha results) [facility] ([facility] Blood, Urine Blood RFX Laboratory test result Above high n ormal [facility] ([facility] Bacteria, Urine Auto RFX Laboratory test result Normal (applies to non-numeric results) [facility] ([facility] ) RBC, Urine Auto RFX 3 /HPF 0-3 Normal (applies to non-nume samantha results) [facility] ([facility] Squam Epithelial Cell Ur Aurfx 0 /HPF 0-6 N ormal (applies to non-numeric results) [facility] ([facility] ) Hyaline Cast, Urine Auto RFX 0 /LPF 0-1 Normal (appl ies to non-numeric results) [facility] ([facility] ID Date Data Source [id number] 07/05/2020 01:38:00 PM EDT [facility] ([facility] Name Value Range Interpretation Code Description Data Leona rce(s) Supporting Document(s) Benzodiazepines Urine Laboratory test result Nor mal (applies to non-numeric results) [facility] ([facility] ) Barbiturates Urine Laboratory test result Normal (applies to non-numeric results) [facility] ([facility] ) Amphetamines Level Urine Laboratory test result Normal (applies to non-numeric results) [facility] ([facility] ) Cannabinoids Urine Laboratory test result Normal (applies to non-numeric results) [facility] ([facility] ) Cocaine Metabolite Urine Laboratory test result Normal (applies to non-numeric results) [facility] ([facility] Opiates Urine Laboratory test result Normal (applies t o non-numeric results) [facility] ([facility] Methadone Urine Laboratory test result Normal (a pplies to non-numeric results) [facility] ([facility] Phencyclidine Urine Laboratory test result Roselia l (applies to non-numeric results) [facility] ([facility] ALL PRESUMPTIVE POSITIVE FINDINGS AR E UNCONFIRMED THRESHOLD IN NG/ML AMPHETAMINES/METHAMPHET 1000 BARBITURATES [...] CLOSELY RELATED COMPOUNDS PLEASE CALL THE LAB. ID Date Data Source [id number] 07/05/2020 01:38:00 PM EDT [facility] ([facility]) Name Value Range Interpretation Code Description Data Leona rce(s) Supporting Document(s) Phencyclidine [Presence] in Urine by Screen method Laboratory test re sult [facility] ([facility]) ID Date Data Source [id number] 07/05/2020 01:38:00 PM EDT [facility] ([facility]) Name Value Range Interpretation Code Description Data Leona rce(s) Supporting Document(s) Opiates [Presence] in Urine by Screen method Laboratory test result [facility] ([facility]) ID Date Data Source [id number] 07/05/2020 01:38:00 PM EDT [facility] ([facility]) Name Value Range Interpretation Code Description Data Leona rce(s) Supporting Document(s) Methadone [Presence] in Urine by Screen method Laboratory test result [facility] ([facility]) ID Date Data Source [id number] 07/05/2020 01:38:00 PM EDT [facility] ([facility] Name Value Range Interpretation Code Description Data Leona rce(s) Supporting Document(s) Benzoylecgonine [Presence] in Urine by Screen method Laboratory rene t result [facility] ([facility] ) ID Date Data Source [id number] 07/05/2020 01:38:00 PM EDT [facility] ([facility] ) Name Value Range Interpretation Code Description Data Leona rce(s) Supporting Document(s) Cannabinoids [Presence] in Urine by Screen method Laboratory test res ult [facility] ([facility] ) ID Date Data Source [id number] 07/05/2020 01:38:00 PM EDT [facility] ([facility]) Name Value Range Interpretation Code Description Data Leona rce(s) Supporting Document(s) Benzodiazepines [Presence] in Urine by Screen method Laboratory rene t result [facility] ([facility]) ID Date Data Source [id number] 07/05/2020 01:38:00 PM EDT [facility] ([facility]) Name Value Range Interpretation Code Description Data Leona rce(s) Supporting Document(s) Barbiturates [Presence] in Urine by Screen method Laboratory test res ult [facility] ([facility] ) ID Date Data Source [id number] 07/05/2020 01:38:00 PM EDT [facility] ([facility]) Name Value Range Interpretation Code Description Data Leona rce(s) Supporting Document(s) Amphetamines [Presence] in Urine by Screen method Laboratory test res ult [facility] ([facility] ) ID Date Data Source [id number] 07/05/2020 01:38:00 PM EDT [facility] ([facility] ) Name Value Range Interpretation Code Description Data Leona rce(s) Supporting Document(s) Urine Hyaline Casts (Auto) 0 0-1 [facility] ([facility] ) ID Date Data Source [id number] 07/05/2020 01:38:00 PM EDT [facility] ([facility]) Name Value Range Interpretation Code Description Data Leona rce(s) Supporting Document(s) Urine Color Laboratory test result [facility] ([facility] ) Urine Appearance Laboratory test result [facility] ([facility] ) pH of Urine 6.0 5.0-9.0 [facility] ([facility] Urine Specific Vivian 1.006 1.002-1.035 M [facility] ([facility] ) Urine Protein Laboratory test result [facility] ([facility] ) Urine Glucose (Ua) Laboratory test result [facility] ([facility] ) Urine Ketones Laboratory test result [facility] ([facility] ) Urine Bilirubin Laboratory test result [facility] ([facility] ) Urine Urobilinogen 0.2 0.0-2.0 [facility] ([facility] Urine Nitrite Laboratory test result [facility] ([facility] ) Urine Leukocyte Esterase Laboratory test result [facility] ([facility]) Urine WBC (Auto) 0 0-3 [facility] ([facility] Urine Blood Laboratory test result [facility] ([facility] ) Urine RBC (Auto) 3 0-3 [facility] ([facility]) Urine Bacteria (Auto) Laboratory test result [facility] ([facility] ) Urine Squamous Epithelial Cells 0 0-6 [facility] ([facility] ) ID Date Data Source [id number] 07/05/2020 12:42:00 PM EDT [facility] ([facility] Name Value Range Interpretation Code Description Data Leona rce(s) Supporting Document(s) Blood Culture Laboratory test result [facility] ([facility] No growth after 72 hours . All specimens observed for 5 days. Results final at that time. No growth after 48 hours . All specimens observed for 5 days. Results final at that time. No growth after 24 hours . All specimens observed for 5 days. Results final at that time. NO GROWTH AFTER 5 DAYS ID Date Data Source [id number] 07/05/2020 12:42:00 PM EDT [facility] ([facility] ) Name Value Range Interpretation Code Description Data Leona rce(s) Supporting Document(s) Bacteria identified in Blood by Culture Laboratory test result [facility] ([facility] ) ID Date Data Source [id number] 07/05/2020 12:41:00 PM EDT [facility] ([facility] Name Value Range Interpretation Code Description Data Leona rce(s) Supporting Document(s) White Blood Count 6.0 10 4.0-10.0 Normal (applies to non-numeri c results) [facility] ([facility] Red Blood Count 4.57 10 4.00-5.40 Normal (applies to non-numeric results) [facility] ([facility] Hemoglobin 12.5 g/dL 12.0-15.5 Normal (applies to non-numeric resul ts) [facility] ([facility] Hematocrit 41.6 % 36.0-47.0 Normal (applies to non-numeric resul ts) [facility] ([facility] Mean Corpuscular Volume 91.0 fl 80.0-96.0 Normal ( applies to non-numeric results) [facility] ([facility] ) Mean Corpuscular Hemoglobin 27.4 pg 27.0-33.0 Norm al (applies to non-numeric results) [facility] ([facility] ) Red Cell Distribution Width 16.0 % 11.5-14.5 Above high normal [facility] ([facility] Mean Corpuscular HGB Conc 30.0 g/dL 32.0-36.5 Below low normal [facility] ([facility] Neutrophils % 44.0 % 36.0-66.0 Normal (applies to non-numeric re sults) [facility] ([facility] Platelet Count, Automated 272 10 150-450 Normal (applies to non-numeric results) [facility] ([facility] ) Sevier % 6.5 % 2.0-8.0 Normal (applies to non-numeric resul ts) [facility] ([facility] Lymph % 43.0 % 24.0-44.0 Normal (applies to non-numeric resul ts) [facility] ([facility] Baso % 0.7 % 0.0-1.0 Normal (applies to non-numeric resul ts) [facility] ([facility] Eos % 5.5 % 0.0-3.0 Above high normal [facility] ([facility] Immature Granulocyte % 0.3 % 0-3.0 Normal (applies to non-n umeric results) [facility] ([facility] Nucleated Red Blood Cell % 0.0 % 0-0 Normal (applies to n on-numeric results) [facility] ([facility] Neutrophils # 2.6 10 1.5-8.5 Normal (applies to non-numeric re sults) [facility] ([facility] Sevier # 0.4 10 0.0-0.8 Normal (applies to non-numeric resul ts) [facility] ([facility] Lymph # 2.6 10 1.5-5.0 Normal (applies to non-numeric resul ts) [facility] ([facility] Baso # 0.0 10 0.0-0.2 Normal (applies to non-numeric resul ts) [facility] ([facility] Eos # 0.3 10 0.0-0.5 Normal (applies to non-numeric resul ts) [facility] ([facility] ID Date Data Source [id number] 07/05/2020 12:41:00 PM EDT [facility] ([facility] Name Value Range Interpretation Code Description Data Leona rce(s) Supporting Document(s) Venous PH 7.328 units 7.330-7.430 Below low normal [facility] ([facility] Venous Partial Pressure O2 39.1 mmHg 30.0-50.0 Roselia l (applies to non-numeric results) [facility] ([facility] ) Venous Partial Pressure Co2 56.7 mmHg 38.0-50.0 Above high normal [facility] ([facility] Venous Total Co2 30.8 meq/L 24.0-28.0 Above high normal M [facility] ([facility] Venous Hco3 29.1 meq/L 23.0-27.0 Above high normal [facility] ([facility] Venous Base Excess 2.0 Normal (applies to non-numer ic results) [facility] ([facility] Venous Standard Hco3 25.6 meq/L Normal (applies to non-num ana rosa results) [facility] ([facility] Venous O2 Saturation 69.2 % 60.0-80.0 Normal (applies to non-num ana rosa results) [facility] ([facility] ID Date Data Source [id number] 07/05/2020 12:41:00 PM EDT [facility] ([facility] Name Value Range Interpretation Code Description Data Leona rce(s) Supporting Document(s) Ammonia [Mass/volume] in Blood 30 uMOL/L N ormal (applies to non-numeric results) [facility] ([facility] ) ID Date Data Source [id number] 07/05/2020 12:41:00 PM EDT [facility] ([facility] Name Value Range Interpretation Code Description Data Leona [facility]) Supporting Document(s) CK-MB Value Mass 1.6 ng/mL Normal (applies to non-numeric results) [facility] ([facility] CPK Creatine Phosphokinase 90 U/L 26-192 Roselia l (applies to non-numeric results) [facility] ([facility] MB/CK Relative Index 1.78 Normal (applies to non-num ana rosa results) [facility] ([facility] <content>DIAGNOSIS CRITERIA</content>
<content>MMB ng/ml Relative Index (RI)</content>
<content>NON-AMI < or = 5 N/A</content>
<content>GIL ZONE > 5 < or = 4</content>
<content>AMI > 5 > 4</content>
<content></content> Troponin I Laboratory test result Normal (applies to non-n umeric results) [facility] ([facility] <content>Troponin I Reference Interval f or [employer] [place] LOCI:</content>
<content></content>
<content>99th Percentile= 0.00-0.045 ng/ml</content>
<content></content>
<content>Risk Stratification:</content>
<content><= 0.10 ng/ml Decreased Risk for Adverse Clinical</content>
<content>Events.</content>
<content>0.10-1.50 ng/ml Increased Risk for Adverse Clinical</content>
<content>Events. Evaluation of additional</content>
<content>criterion and/or repeat testing in 2-6</content>
<content>hours is suggested to rule out myocardial</content>
<content>damage.</content>
<content>>= 1.50 ng/ml Indicative of Myocardial Injury.</content>
<content></content> ID Date Data Source [id number] 07/05/2020 12:41:00 PM EDT [facility] ([facility] Name Value Range Interpretation Code Description Data Leona rce(s) Supporting Document(s) Ast/Sgot 16 U/L 7-37 Normal (applies to non-numeric resul ts) [facility] ([facility] Alkaline Phosphatase 89 U/L 45-117 Normal (applies to non-num ana rosa results) [facility] ([facility] Alt/SGPT 21 U/L 12-78 Normal (applies to non-numeric resul ts) [facility] ([facility] Bilirubin,Total 0.4 mg/dL 0.2-1.0 Normal (applies to non-numeric results) [facility] ([facility] Bilirubin,Direct Laboratory test result 0.0-0.2 Normal ( applies to non-numeric results) [facility] ([facility] ) Total Protein 7.3 GM/DL 6.4-8.2 Normal (applies to non-numeric re sults) [facility] ([facility] Albumin 4.0 GM/DL 3.2-5.2 Normal (applies to non-numeric resul ts) [facility] ([facility] Albumin/Globulin Ratio 1.2 1.2-2.2 Normal (applies to non-n umeric results) [facility] ([facility] ID Date Data Source [id number] 07/05/2020 12:41:00 PM EDT [facility] ([facility] Name Value Range Interpretation Code Description Data Leona rce(s) Supporting Document(s) Thyrotropin [Units/volume] in Serum or Plasma 7.580 uIU/ML 0. 358-3.740 Above high normal [facility] ([facility] ) ID Date Data Source [id number] 07/05/2020 12:41:00 PM EDT [facility] ([facility] Name Value Range Interpretation Code Description Data Leona rce(s) Supporting Document(s) Blood Culture Laboratory test result [facility] ([facility] No growth after 72 hours . All specimens observed for 5 days. Results final at that time. No growth after 48 hours . All specimens observed for 5 days. Results final at that time. No growth after 24 hours . All specimens observed for 5 days. Results final at that time. NO GROWTH AFTER 5 DAYS ID Date Data Source [id number] 07/05/2020 12:41:00 PM EDT [facility] ([facility] Name Value Range Interpretation Code Description Data Leona rce(s) Supporting Document(s) Glucose, Fasting 113 mg/dL 70-100 Above high normal M [facility] ([facility] Blood Urea Nitrogen 21 mg/dL 7-18 Above high normal [facility] ([facility] Creatinine For GFR 0.89 mg/dL 0.55-1.30 Normal (applies to non -numeric results) [facility] ([facility] Sodium Level 139 meq/L 136-145 Normal (applies to non-numeric res ults) [facility] ([facility] Glomerular Filtration Rate Laboratory test result Normal (applies to non- numeric results) [facility] <content>Units are mL/min/1.73 m2</content>
<content></content>
<content>Chronic Kidney Disease Staging per NKF:</content>
<content></content>
<content>Stage I & II GFR >=60 Normal to Mildly Decreased</content>
<content>Stage III GFR 30- 59 Moderately Decreased</content>
<content>Stage IV GFR 15-29 Severely Decreased</content>
<content>Stage V GFR <15 Very Little GFR Left</content>
<content>ESRD GFR <15 on DOCUMENTATION DESIGNER</content>
<content></content> Potassium Serum 4.4 meq/L 3.5-5.1 Normal (applies to non-numeric results) [facility] ([facility] This specimen has an elevated potassium level but there is NO visible hemolysis noted. Carbon Dioxide Level 29 meq/L 21-32 Normal (applies to non-num ana rosa results) [facility] ([facility] Chloride Level 106 meq/L 98-107 Normal (applies to non-numeric r esults) [facility] ([facility] Calcium Level 9.7 mg/dL 8.8-10.2 Normal (applies to non-numeric re sults) [facility] ([facility] Anion Gap 4 meq/L 8-16 Below low normal [facility] ( [facility] ID Date Data Source [id number] 07/05/2020 12:41:00 PM EDT [facility] ([facility]) Name Value Range Interpretation Code Description Data Leona rce(s) Supporting Document(s) Erythrocyte mean corpuscular hemoglobin concentration [Mass/volume] by Automated count 30.0 32.0-36.5 [facility] ID Date Data Source [id number] 07/05/2020 12:41:00 PM EDT [facility] ([facility]) Name Value Range Interpretation Code Description Data Leona rce(s) Supporting Document(s) Neutrophils [#/volume] in Blood by Automated count 44.0 36.0-66 .0 [facility] ID Date Data Source [id number] 07/05/2020 12:41:00 PM EDT [facility] ([facility]) Name Value Range Interpretation Code Description Data Leona rce(s) Supporting Document(s) Erythrocyte distribution width [Ratio] by Automated count 16.0 11.5-14.5 [facility] ([facility]) ID Date Data Source [id number] 07/05/2020 12:41:00 PM EDT [facility] ([facility]) Name Value Range Interpretation Code Description Data Leona rce(s) Supporting Document(s) Erythrocyte mean corpuscular hemoglobin [Entitic mass] by Au tomated count 27.4 27.0-33.0 [facility] ID Date Data Source [id number] 07/05/2020 12:41:00 PM EDT [facility] ([facility]) Name Value Range Interpretation Code Description Data Leona rce(s) Supporting Document(s) Erythrocyte mean corpuscular volume [Entitic volume] by Auto mated count 91.0 80.0-96.0 [facility] ([facility] ID Date Data Source [id number] 07/05/2020 12:41:00 PM EDT [facility] ([facility]) Name Value Range Interpretation Code Description Data Leona rce(s) Supporting Document(s) Erythrocytes [#/volume] in Blood by Automated count 4.57 4.00-5 .40 [facility] ([facility]) ID Date Data Source [id number] 07/05/2020 12:41:00 PM EDT [facility] ([facility]) Name Value Range Interpretation Code Description Data Leona rce(s) Supporting Document(s) Platelets [#/volume] in Blood by Automated count 272 150-450 [facility] ([facility]) ID Date Data Source [id number] 07/05/2020 12:41:00 PM EDT [facility] ([facility]) Name Value Range Interpretation Code Description Data Leona rce(s) Supporting Document(s) Monocytes/100 leukocytes in Blood by Automated count 6.5 2.0-8 .0 [facility] ([facility]) ID Date Data Source [id number] 07/05/2020 12:41:00 PM EDT [facility] ([facility]) Name Value Range Interpretation Code Description Data Leona rce(s) Supporting Document(s) Eosinophils/100 leukocytes in Blood by Automated count 5.5 0.0 -3.0 [facility] ([facility]) ID Date Data Source [id number] 07/05/2020 12:41:00 PM EDT [facility] ([facility]) Name Value Range Interpretation Code Description Data Leona rce(s) Supporting Document(s) Basophils/100 leukocytes in Blood by Automated count 0.7 0.0-1 .0 [facility] ([facility]) ID Date Data Source [id number] 07/05/2020 12:41:00 PM EDT [facility] ([facility]) Name Value Range Interpretation Code Description Data Leona rce(s) Supporting Document(s) Immature granulocytes/100 leukocytes in Blood by Automated count 0.3 0-3.0 [facility] ([facility]) ID Date Data Source [id number] 07/05/2020 12:41:00 PM EDT [facility] ([facility]) Name Value Range Interpretation Code Description Data Leona rce(s) Supporting Document(s) Nucleated erythrocytes/100 leukocytes [Ratio] in Blood by Au tomated count 0.0 0-0 [facility] ([facility] ID Date Data Source [id number] 07/05/2020 12:41:00 PM EDT [facility] ([facility]) Name Value Range Interpretation Code Description Data Leona rce(s) Supporting Document(s) Neutrophils [#/volume] in Blood by Automated count 2.6 1.5-8.5 [facility] ([facility]) ID Date Data Source [id number] 07/05/2020 12:41:00 PM EDT [facility] ([facility]) Name Value Range Interpretation Code Description Data Leona rce(s) Supporting Document(s) Monocytes [#/volume] in Blood by Automated count 0.4 0.0-0.8 [facility] ([facility]) ID Date Data Source [id number] 07/05/2020 12:41:00 PM EDT [facility] ([facility]) Name Value Range Interpretation Code Description Data Leona rce(s) Supporting Document(s) Hemoglobin [Mass/volume] in Blood 12.5 12.0-15.5 [facility] ([facility]) ID Date Data Source [id number] 07/05/2020 12:41:00 PM EDT [facility] ([facility]) Name Value Range Interpretation Code Description Data Leona rce(s) Supporting Document(s) Leukocytes [#/volume] in Blood by Automated count 6.0 4.0-10.0 [facility] ([facility]) ID Date Data Source [id number] 07/05/2020 12:41:00 PM EDT [facility] ([facility]) Name Value Range Interpretation Code Description Data Leona rce(s) Supporting Document(s) Thyrotropin [Units/volume] in Serum or Plasma 7.580 uIU/ML 0.358-3.74 0 [facility] ([facility]) ID Date Data Source [id number] 07/05/2020 12:41:00 PM EDT [facility] ([facility]) Name Value Range Interpretation Code Description Data Leona rce(s) Supporting Document(s) Aspartate aminotransferase [Enzymatic activity/volume] in Serum or Plasma 16 U/L 7-37 [facility] ([facility] Alkaline phosphatase [Enzymatic activity/volume] in Serum or Plasma 89 U/L 45-117 [facility] ([facility] Alanine aminotransferase [Enzymatic activity/volume] in Seru m or Plasma 21 U/L 12-78 [facility] ([facility] Bilirubin,Total 0.4 mg/dL 0.2-1.0 [facility] ([facility]) Bilirubin,Direct Laboratory test result 0.0-0.2 [facility] ([facility]) Albumin [Mass/volume] in Serum or Plasma 4.0 GM/DL 3.2-5.2 [facility] ([facility]) Protein [Mass/volume] in Serum or Plasma 7.3 GM/DL 6.4-8.2 [facility] ([facility]) Albumin/Globulin Ratio 1.2 1.2-2.2 [facility] ([facility]) ID Date Data Source [id number] 07/05/2020 12:41:00 PM EDT [facility] ([facility]) Name Value Range Interpretation Code Description Data Leona rce(s) Supporting Document(s) Red Blood Count 4.57 10 4.00-5.40 [facility] ([facility]) White Blood Count 6.0 10 4.0-10.0 [facility] ([facility]) Hemoglobin 12.5 g/dL 12.0-15.5 [facility] ([facility]) Hematocrit [Volume Fraction] of Blood by Automated count 41.6 % 3 6.0-47.0 [facility] ([facility]) Mean Corpuscular Hemoglobin 27.4 pg 27.0-33.0 [facility] ([facility]) Mean Corpuscular Volume 91.0 fl 80.0-96.0 M [facility] ([facility]) Mean Corpuscular HGB Conc 30.0 g/dL 32.0-36.5 [facility] ([facility]) Red Cell Distribution Width 16.0 % 11.5-14.5 [facility] ([facility]) Neutrophils % 44.0 % 36.0-66.0 [facility] ([facility] Platelet Count, Automated 272 10 150-450 [facility] ([facility]) Lymphocytes/100 leukocytes in Blood by Automated count 43.0 % 24. 0-44.0 [facility] ([facility]) Sevier % 6.5 % 2.0-8.0 [facility] ([facility] Eos % 5.5 % 0.0-3.0 [facility] ([facility]) Baso % 0.7 % 0.0-1.0 [facility] ([facility]) Immature Granulocyte % 0.3 % 0-3.0 [facility] ([facility]) Neutrophils # 2.6 10 1.5-8.5 [facility] ([facility]) Nucleated Red Blood Cell % 0.0 % 0-0 [facility] ([facility]) Lymph # 2.6 10 1.5-5.0 [facility] ([facility]) Sevier # 0.4 10 0.0-0.8 [facility] ([facility]) Baso # 0.0 10 0.0-0.2 [facility] ([facility]) Eos # 0.3 10 0.0-0.5 [facility] ([facility]) ID Date Data Source [id number] 07/05/2020 12:41:00 PM EDT [facility] ([facility]) Name Value Range Interpretation Code Description Data Leona rce(s) Supporting Document(s) Lymphocytes [#/volume] in Blood by Automated count 2.6 1.5-5.0 [facility] ([facility]) ID Date Data Source [id number] 07/05/2020 12:41:00 PM EDT [facility] ([facility]) Name Value Range Interpretation Code Description Data Leona rce(s) Supporting Document(s) Thyrotropin [Units/volume] in Serum or Plasma by Detec tion limit <= 0.005 mIU/L 7.580 0.358-3.740 [facility] ([facility]) ID Date Data Source [id number] 07/05/2020 12:41:00 PM EDT [facility] ([facility]) Name Value Range Interpretation Code Description Data Leona rce(s) Supporting Document(s) Troponin I.cardiac [Mass/volume] in Serum or Plasma Laboratory test result [facility] ([facility]) ID Date Data Source [id number] 07/05/2020 12:41:00 PM EDT [facility] ([facility]) Name Value Range Interpretation Code Description Data Leona rce(s) Supporting Document(s) Ammonia [Moles/volume] in Plasma 30 [facility] ([facility]) ID Date Data Source [id number] 07/05/2020 12:41:00 PM EDT [facility] ([facility]) Name Value Range Interpretation Code Description Data Leona rce(s) Supporting Document(s) Bilirubin.direct [Mass/volume] in Serum or Plasma Laboratory test result 0.0-0.2 [facility] ([facility]) ID Date Data Source [id number] 07/05/2020 12:41:00 PM EDT [facility] ([facility]) Name Value Range Interpretation Code Description Data Leona rce(s) Supporting Document(s) Creatine kinase.MB/Creatine kinase.total [Pure catalytic fraction] in Serum or Plasma by calculation 1.78 [facility] ([facility]) ID Date Data Source [id number] 07/05/2020 12:41:00 PM EDT [facility] ([facility]) Name Value Range Interpretation Code Description Data Leona rce(s) Supporting Document(s) Creatine kinase.MB [Mass/volume] in Serum or Plasma 1.6 [facility] ([facility]) ID Date Data Source [id number] 07/05/2020 12:41:00 PM EDT [facility] ([facility]) Name Value Range Interpretation Code Description Data Leona rce(s) Supporting Document(s) Creatine kinase [Enzymatic activity/volume] in Serum or Plasma 90 26-192 [facility] ([facility]) ID Date Data Source [id number] 07/05/2020 12:41:00 PM EDT [facility] ([facility]) Name Value Range Interpretation Code Description Data Leona rce(s) Supporting Document(s) Calcium [Moles/volume] in Serum or Plasma 9.7 8.8-10.2 [facility] ([facility]) ID Date Data Source [id number] 07/05/2020 12:41:00 PM EDT [facility] ([facility]) Name Value Range Interpretation Code Description Data Leona rce(s) Supporting Document(s) Anion gap 3 in Serum or Plasma 4 8-16 [facility] ([facility]) ID Date Data Source [id number] 07/05/2020 12:41:00 PM EDT [facility] ([facility]) Name Value Range Interpretation Code Description Data Leona rce(s) Supporting Document(s) Carbon dioxide, total [Moles/volume] in Serum or Plasma 29 21 -32 [facility] ([facility]) ID Date Data Source [id number] 07/05/2020 12:41:00 PM EDT [facility] ([facility]) Name Value Range Interpretation Code Description Data Leona rce(s) Supporting Document(s) Chloride [Moles/volume] in Serum or Plasma 106 98-107 [facility] ([facility]) ID Date Data Source [id number] 07/05/2020 12:41:00 PM EDT [facility] ([facility]) Name Value Range Interpretation Code Description Data Leona rce(s) Supporting Document(s) Potassium [Moles/volume] in Serum or Plasma 4.4 3.5-5.1 [facility] ([facility]) ID Date Data Source [id number] 07/05/2020 12:41:00 PM EDT [facility] ([facility]) Name Value Range Interpretation Code Description Data Leona rce(s) Supporting Document(s) Sodium [Moles/volume] in Serum or Plasma 139 136-145 [facility] ([facility]) ID Date Data Source [id number] 07/05/2020 12:41:00 PM EDT [facility] ([facility]) Name Value Range Interpretation Code Description Data Leona rce(s) Supporting Document(s) Glomerular filtration rate/1.73 sq M.pre dicted [Volume Rate/Area] in Serum or Plasma by Creatinine-based formula (MDRD) Laboratory test result [facility] ([facility]) ID Date Data Source [id number] 07/05/2020 12:41:00 PM EDT [facility] Name Value Range Interpretation Code Description Data Leona rce(s) Supporting Document(s) Creatinine [Mass/volume] in Serum or Plasma 0.89 0.55-1.30 [facility] ([facility]) ID Date Data Source [id number] 07/05/2020 12:41:00 PM EDT [facility] ([facility]) Name Value Range Interpretation Code Description Data Leona rce(s) Supporting Document(s) Urea nitrogen [Mass/volume] in Serum or Plasma 21 7-18 [facility] ([facility]) ID Date Data Source [id number] 07/05/2020 12:41:00 PM EDT [facility] ([facility]) Name Value Range Interpretation Code Description Data Leona rce(s) Supporting Document(s) Glucose [Mass/volume] in Serum or Plasma 113 70-100 [facility] ([facility]) ID Date Data Source [id number] 07/05/2020 12:41:00 PM EDT [facility] ([facility]) Name Value Range Interpretation Code Description Data Leona rce(s) Supporting Document(s) Oxygen saturation in Venous blood 69.2 60.0-80.0 [facility] ([facility]) ID Date Data Source [id number] 07/05/2020 12:41:00 PM EDT [facility] ([facility]) Name Value Range Interpretation Code Description Data Leona rce(s) Supporting Document(s) Bicarbonate [Moles/volume] standard in Venous blood 25.6 [facility] ([facility]) ID Date Data Source [id number] 07/05/2020 12:41:00 PM EDT [facility] ([facility]) Name Value Range Interpretation Code Description Data Leona rce(s) Supporting Document(s) Base excess in Venous blood by calculation 2.0 [facility] ([facility]) ID Date Data Source [id number] 07/05/2020 12:41:00 PM EDT [facility] ([facility]) Name Value Range Interpretation Code Description Data Leona rce(s) Supporting Document(s) Bicarbonate [Moles/volume] in Venous blood 29.1 23.0-27.0 [facility] ([facility]) ID Date Data Source [id number] 07/05/2020 12:41:00 PM EDT [facility] ([facility]) Name Value Range Interpretation Code Description Data Leona rce(s) Supporting Document(s) Carbon dioxide, total [Moles/volume] in Venous blood by calc ulation 30.8 24.0-28.0 [facility] ([facility]) ID Date Data Source [id number] 07/05/2020 12:41:00 PM EDT [facility] ([facility]) Name Value Range Interpretation Code Description Data Leona rce(s) Supporting Document(s) Oxygen [Partial pressure] in Venous blood 39.1 30.0-50.0 [facility] ([facility]) ID Date Data Source [id number] 07/05/2020 12:41:00 PM EDT [facility] ([facility]) Name Value Range Interpretation Code Description Data Leona rce(s) Supporting Document(s) Carbon dioxide [Partial pressure] in Venous blood 56.7 38.0-50. 0 [facility] ([facility]) ID Date Data Source [id number] 07/05/2020 12:41:00 PM EDT [facility] ([facility]) Name Value Range Interpretation Code Description Data Leona rce(s) Supporting Document(s) pH of Venous blood 7.328 7.330-7.430 [facility] ([facility]) ID Date Data Source [id number] 07/05/2020 12:41:00 PM EDT [facility] ([facility]) Name Value Range Interpretation Code Description Data Leona rce(s) Supporting Document(s) Basophils [#/volume] in Blood by Automated count 0.0 0.0-0.2 [facility] ([facility]) ID Date Data Source [id number] 07/05/2020 12:41:00 PM EDT [facility] ([facility]) Name Value Range Interpretation Code Description Data Leona rce(s) Supporting Document(s) Bilirubin.total [Mass/volume] in Serum or Plasma 0.4 0.2-1.0 [facility] ([facility]) ID Date Data Source [id number] 07/05/2020 12:41:00 PM EDT [facility] ([facility]) Name Value Range Interpretation Code Description Data Leona rce(s) Supporting Document(s) Eosinophils [#/volume] in Blood by Automated count 0.3 0.0-0.5 [facility] ([facility]) ID Date Data Source [id number] 07/03/2020 12:29:00 AM EDT [facility] Name Value Range Interpretation Code Description Data Leona rce(s) Supporting Document(s) SARS-CoV-2 (COVID 19) NEGATIVE - SARS-CoV-2 (COVID19) [facility] This lab was ordered by [facility] a nd reported by [facility]. ID Date Data Source [id number] 07/02/2020 10:47:00 PM EDT [facility] ([facility] Name Value Range Interpretation Code Description Data Leona rce(s) Supporting Document(s) Acetaminophen [Mass/volume] in Serum or Plasma Laboratory test r esult 10.0-30.0 [facility] ([facility] ) ID Date Data Source [id number] 07/02/2020 10:47:00 PM EDT [facility] ([facility]) Name Value Range Interpretation Code Description Data Leona rce(s) Supporting Document(s) Salicylates [Mass/volume] in Serum or Plasma Laboratory test result 5.0-30.0 [facility] ([facility] ID Date Data Source [id number] 07/02/2020 10:47:00 PM EDT [facility] ([facility]) Name Value Range Interpretation Code Description Data Leona rce(s) Supporting Document(s) Magnesium [Mass/volume] in Serum or Plasma 2.1 1.8-2.4 [facility] ([facility] ID Date Data Source [id number] 07/02/2020 10:47:00 PM EDT [facility] ([facility] Name Value Range Interpretation Code Description Data Leona rce(s) Supporting Document(s) Ethanol [Presence] in Serum or Plasma Laboratory test result 0.000-0. 010 [facility] ([facility]) ID Date Data Source [id number] 07/02/2020 10:30:00 PM EDT [facility] ([facility] ) Name Value Range Interpretation Code Description Data Leona rce(s) Supporting Document(s) pH of Arterial blood 7.375 7.350-7.450 [facility] ([facility] ) ID Date Data Source [id number] 07/02/2020 10:30:00 PM EDT [facility] ([facility] ) Name Value Range Interpretation Code Description Data Leona rce(s) Supporting Document(s) Laboratory test finding (navigational concept) 27.0 23.0-27.0 [facility] ([facility] ) ID Date Data Source [id number] 07/02/2020 10:30:00 PM EDT [facility] ([facility]) Name Value Range Interpretation Code Description Data Leona rce(s) Supporting Document(s) Carbon dioxide [Partial pressure] in Arterial blood 43.7 35.0-4 5.0 [facility] ([facility]) ID Date Data Source [id number] 07/02/2020 10:30:00 PM EDT [facility] ([facility]) Name Value Range Interpretation Code Description Data Leona rce(s) Supporting Document(s) Oxygen [Partial pressure] in Arterial blood 129.0 80-105 [facility] ([facility]) ID Date Data Source [id number] 07/02/2020 10:30:00 PM EDT [facility] ([facility]) Name Value Range Interpretation Code Description Data Leona rce(s) Supporting Document(s) Bicarbonate [Moles/volume] in Arterial blood 25.5 22.0-26.0 [facility] ([facility]) ID Date Data Source [id number] 07/02/2020 10:30:00 PM EDT [facility] ([facility]) Name Value Range Interpretation Code Description Data Leona rce(s) Supporting Document(s) Base excess standard in Arterial blood by calculation 0.0 [facility] ([facility]) ID Date Data Source [id number] 07/02/2020 10:30:00 PM EDT [facility] ([facility]) Name Value Range Interpretation Code Description Data Leona rce(s) Supporting Document(s) Oxygen saturation Calculated from oxygen partial pressure in Arterial blood 99 95-98 [facility] ([facility]) ID Date Data Source [id number] 07/02/2020 09:48:00 PM EDT [facility] ([facility]) Name Value Range Interpretation Code Description Data Leona rce(s) Supporting Document(s) Urine Mucus (Auto) Laboratory test result [facility] ([facility]) ID Date Data Source [id number] 07/02/2020 09:48:00 PM EDT [facility] ([facility]) Name Value Range Interpretation Code Description Data Leona rce(s) Supporting Document(s) Hemoglobin A1c/Hemoglobin.total in Blood 7.7 [facility] ([facility]) ID Date Data Source [id number] 07/02/2020 09:48:00 PM EDT [facility] ([facility]) Name Value Range Interpretation Code Description Data Leona rce(s) Supporting Document(s) Glucose mean value [Mass/volume] in Blood Estimated fr om glycated hemoglobin 174 60-110 [facility] ([facility]) ID Date Data Source [id number] 06/18/2020 07:51:00 PM EDT [facility] ([facility] Name Value Range Interpretation Code Description Data Leona rce(s) Supporting Document(s) Laboratory test finding (navigational concept) 40.0 % 3 8.0-51.0 Normal (applies to non-numeric results) [facility] ([facility] Laboratory test finding (navigational concept) 201 mg/dL 7 0-105 Above high normal [facility] ([facility] ) Laboratory test finding (navigational concept) 137 meq/L 1 36-145 Normal (applies to non-numeric results) [facility] ([facility] Laboratory test finding (navigational concept) 4.2 meq/L 3 .5-5.1 Normal (applies to non-numeric results) [facility] ([facility] Laboratory test finding (navigational concept) 99 meq/L 9 8-109 Normal (applies to non-numeric results) [facility] ([facility] Laboratory test finding (navigational concept) 31.0 MM/L 2 3.0-27.0 Above high normal [facility] ([facility] ) Laboratory test finding (navigational concept) 4.7 mg/dL 4 .5-5.3 Normal (applies to non-numeric results) [facility] ([facility] Laboratory test finding (navigational concept) 18 mg/dL 8 -26 Normal (applies to non-numeric results) [facility] ([facility]) Laboratory test finding (navigational concept) 1.0 mg/dL 0 .6-1.3 Normal (applies to non-numeric results) [facility] ([facility] ID Date Data Source [id number] 06/18/2020 07:25:00 PM EDT [facility] ([facility] Name Value Range Interpretation Code Description Data Leona rce(s) Supporting Document(s) Lipoprotein lipase [Enzymatic activity/volume] in Serum or P lasma 311 U/L 73-393 Normal (applies to non-numeric results) [facility] ([facility] ID Date Data Source [id number] 06/18/2020 07:25:00 PM EDT [facility] ([facility] Name Value Range Interpretation Code Description Data Leona rce(s) Supporting Document(s) Alt/SGPT 22 U/L 12-78 Normal (applies to non-numeric resul ts) [facility] ([facility] Ast/Sgot 14 U/L 7-37 Normal (applies to non-numeric resul ts) [facility] ([facility] Alkaline Phosphatase 95 U/L 45-117 Normal (applies to non-num ana rosa results) [facility] ([facility] Bilirubin,Total 0.3 mg/dL 0.2-1.0 Normal (applies to non-numeric results) [facility] ([facility] Bilirubin,Direct 0.1 mg/dL 0.0-0.2 Normal (applies to non-numeric results) [facility] ([facility] Total Protein 7.2 GM/DL 6.4-8.2 Normal (applies to non-numeric re sults) [facility] ([facility] Albumin 3.9 GM/DL 3.2-5.2 Normal (applies to non-numeric resul ts) [facility] ([facility] Albumin/Globulin Ratio 1.2 1.2-2.2 Normal (applies to non-n umeric results) [facility] ([facility] ID Date Data Source [id number] 06/18/2020 07:25:00 PM EDT [facility] ([facility] Name Value Range Interpretation Code Description Data Leona rce(s) Supporting Document(s) White Blood Count 7.3 10 4.0-10.0 Normal (applies to non-numeri c results) [facility] ([facility] Red Blood Count 4.46 10 4.00-5.40 Normal (applies to non-numeric results) [facility] ([facility] Mean Corpuscular Volume 88.6 fl 80.0-96.0 Normal ( applies to non-numeric results) [facility] ([facility] ) Hemoglobin 12.0 g/dL 12.0-15.5 Normal (applies to non-numeric resul ts) [facility] ([facility] Hematocrit 39.5 % 36.0-47.0 Normal (applies to non-numeric resul ts) [facility] ([facility] Mean Corpuscular HGB Conc 30.4 g/dL 32.0-36.5 Below low normal [facility] ([facility] Mean Corpuscular Hemoglobin 26.9 pg 27.0-33.0 Below low normal [facility] ([facility] Red Cell Distribution Width 16.5 % 11.5-14.5 Above high normal [facility] ([facility] Lymph % 38.5 % 24.0-44.0 Normal (applies to non-numeric resul ts) [facility] ([facility] Platelet Count, Automated 328 10 150-450 Normal (applies to non-numeric results) [facility] ([facility] Neutrophils % 49.9 % 36.0-66.0 Normal (applies to non-numeric re sults) [facility] ([facility] Eos % 5.1 % 0.0-3.0 Above high normal [facility] ([facility] Sevier % 5.8 % 2.0-8.0 Normal (applies to non-numeric resul ts) [facility] ([facility] Immature Granulocyte % 0.4 % 0-3.0 Normal (applies to non-n umeric results) [facility] ([facility] Nucleated Red Blood Cell % 0.0 % 0-0 Normal (applies to n on-numeric results) [facility] ([facility] Baso % 0.3 % 0.0-1.0 Normal (applies to non-numeric resul ts) [facility] ([facility] Neutrophils # 3.6 10 1.5-8.5 Normal (applies to non-numeric re sults) [facility] ([facility] Sevier # 0.4 10 0.0-0.8 Normal (applies to non-numeric resul ts) [facility] ([facility] Lymph # 2.8 10 1.5-5.0 Normal (applies to non-numeric resul ts) [facility] ([facility] Baso # 0.0 10 0.0-0.2 Normal (applies to non-numeric resul ts) [facility] ([facility] Eos # 0.4 10 0.0-0.5 Normal (applies to non-numeric resul ts) [facility] ([facility] ID Date Data Source [id number] 06/18/2020 07:25:00 PM EDT [facility] ([facility]) Name Value Range Interpretation Code Description Data Leona rce(s) Supporting Document(s) Lipase [Enzymatic activity/volume] in Serum or Plasma 311 73-3 93 [facility] ([facility]) ID Date Data Source [id number] 05/24/2020 02:23:00 PM EDT [facility] ([facility] Name Value Range Interpretation Code Description Data Leona rce(s) Supporting Document(s) Glucose [Mass/volume] in Serum or Plasma 206 mg/dL 65-99 Above high normal [facility] ([facility] BUN 20 mg/dL 8-27 [facility] ([facility] eGFR If NonAfricn Am 62 mL/min/1.73 [facility] ([facility] Creatinine [Mass/volume] in Serum or Plasma 0.94 mg/dL 0.57-1.00 [facility] ([facility] eGFR If Africn Am 71 mL/min/1.73 [facility] ([facility] Urea nitrogen/Creatinine [Mass Ratio] in Serum or Plasma 21 1 2-28 [facility] ([facility] Potassium [Moles/volume] in Serum or Plasma 4.6 mmol/L 3.5-5.2 [facility] ([facility] Sodium [Moles/volume] in Serum or Plasma 136 mmol/L 134-144 [facility] ([facility] Chloride [Moles/volume] in Serum or Plasma 94 mmol/L 96-106 Belo w low normal [facility] ([facility] Carbon dioxide, total [Moles/volume] in Serum or Plasma 28 mmol/L 20 -29 [facility] ([facility] Calcium [Mass/volume] in Serum or Plasma 9.6 mg/dL 8.7-10.3 [facility] ([facility] ID Date Data Source [id number] 05/19/2020 04:52:00 AM EDT [facility] ([facility]) Name Value Range Interpretation Code Description Data Leona rce(s) Supporting Document(s) Folate [Mass/volume] in Serum or Plasma 16.8 [facility] ([facility] ID Date Data Source [id number] 05/19/2020 04:52:00 AM EDT [facility] ([facility]) Name Value Range Interpretation Code Description Data Leona rce(s) Supporting Document(s) Cobalamin (Vitamin B12) [Mass/volume] in Serum or Plasma 367 2 47-911 [facility] ([facility]) ID Date Data Source [id number] 05/17/2020 11:49:00 PM EDT [facility] ([facility] Name Value Range Interpretation Code Description Data Leona rce(s) Supporting Document(s) Bacteria [Presence] in Urine by Automated Laboratory test result [facility] ([facility] ) ID Date Data Source [id number] 05/17/2020 11:49:00 PM EDT [facility] ([facility] Name Value Range Interpretation Code Description Data Leona rce(s) Supporting Document(s) pH of Urine by Automated test strip 8.0 5.0-9.0 [facility] ([facility] ) ID Date Data Source [id number] 05/17/2020 11:49:00 PM EDT [facility] ([facility] ) Name Value Range Interpretation Code Description Data Leona rce(s) Supporting Document(s) Ketones [Presence] in Urine by Automated test strip Laboratory test result [facility] ([facility] ) ID Date Data Source [id number] 05/17/2020 11:49:00 PM EDT [facility] ([facility]) Name Value Range Interpretation Code Description Data Leona rce(s) Supporting Document(s) Erythrocytes [#/volume] in Urine by Automated count 0 0-3 [facility] ID Date Data Source [id number] 05/17/2020 11:49:00 PM EDT [facility] ([facility] ) Name Value Range Interpretation Code Description Data Leona rce(s) Supporting Document(s) Appearance of Urine Laboratory [facility] ID Date Data Source [id number] 05/17/2020 11:49:00 PM EDT [facility] ([facility] ) Name Value Range Interpretation Code Description Data Leona rce(s) Supporting Document(s) Glucose [Presence] in Urine by Automated test strip Laboratory test result [facility] ([facility] ) ID Date Data Source [id number] 05/17/2020 11:49:00 PM EDT [facility] ([facility] ) Name Value Range Interpretation Code Description Data Elona rce(s) Supporting Document(s) Hemoglobin [Presence] in Urine by Automated test strip Laborator y test result [facility] ([facility] ) ID Date Data Source [id number] 05/17/2020 11:49:00 PM EDT [facility] ([facility] ) Name Value Range Interpretation Code Description Data Leona rce(s) Supporting Document(s) Color of Urine by Auto Laboratory test result [facility] ([facility] ) ID Date Data Source [id number] 05/17/2020 11:49:00 PM EDT [facility] Name Value Range Interpretation Code Description Data Leona rce(s) Supporting Document(s) Nitrite [Presence] in Urine by Automated test strip Laboratory test result [facility] ([facility] ) ID Date Data Source [id number] 05/17/2020 11:49:00 PM EDT [facility] ([facility] ) Name Value Range Interpretation Code Description Data Leona rce(s) Supporting Document(s) Sodium [Moles/volume] in Urine 97 [facility] ([facility]) ID Date Data Source [id number] 05/17/2020 11:49:00 PM EDT [facility] ([facility] ) Name Value Range Interpretation Code Description Data Leona rce(s) Supporting Document(s) Specific gravity of Urine by Automated test strip 1.011 1.002-1. 035 [facility] ID Date Data Source [id number] 05/17/2020 11:49:00 PM EDT [facility] ([facility]) Name Value Range Interpretation Code Description Data Leona rce(s) Supporting Document(s) Urea nitrogen [Mass/volume] in Urine 497 [facility] ([facility]) ID Date Data Source [id number] 05/17/2020 11:49:00 PM EDT [facility] ([facility]) Name Value Range Interpretation Code Description Data Leona rce(s) Supporting Document(s) Urobilinogen [Presence] in Urine by Automated test strip 0.2 0 .0-2.0 [facility] ([facility]) ID Date Data Source [id number] 05/17/2020 11:49:00 PM EDT [facility] ([facility]) Name Value Range Interpretation Code Description Data Leona rce(s) Supporting Document(s) Epithelial cells.squamous [#/area] in Urine sediment by Automate d count 0 0-6 [facility] ([facility]) ID Date Data Source [id number] 05/17/2020 11:49:00 PM EDT [facility] ([facility]) Name Value Range Interpretation Code Description Data Leona rce(s) Supporting Document(s) Leukocytes [#/area] in Urine sediment by Automated count 0 0 -3 [facility] ([facility]) ID Date Data Source [id number] 05/17/2020 11:49:00 PM EDT [facility] ([facility]) Name Value Range Interpretation Code Description Data Leona rce(s) Supporting Document(s) Protein [Presence] in Urine by Automated test strip Laboratory test result [facility] ([facility]) ID Date Data Source [id number] 05/17/2020 11:49:00 PM EDT [facility] ([facility]) Name Value Range Interpretation Code Description Data Leona rce(s) Supporting Document(s) Potassium [Moles/volume] in Urine 37.2 [facility] ([facility]) ID Date Data Source [id number] 05/17/2020 11:49:00 PM EDT [facility] ([facility]) Name Value Range Interpretation Code Description Data Leona rce(s) Supporting Document(s) Bilirubin.total [Presence] in Urine by Automated test strip Laboratory test result [facility] ([facility]) ID Date Data Source [id number] 05/17/2020 11:49:00 PM EDT [facility] ([facility]) Name Value Range Interpretation Code Description Data Leona rce(s) Supporting Document(s) Urine Hyaline Casts (Auto) 0 0-1 [facility] ([facility]) ID Date Data Source [id number] 05/17/2020 11:49:00 PM EDT [facility] ([facility]) Name Value Range Interpretation Code Description Data Leona rce(s) Supporting Document(s) Creatinine [Mass/volume] in Urine 36.3 [facility] ([facility]) ID Date Data Source [id number] 05/17/2020 11:49:00 PM EDT [facility] ([facility]) Name Value Range Interpretation Code Description Data Leona rce(s) Supporting Document(s) Leukocyte esterase [Presence] in Urine by Automated te st strip Laboratory test result [facility] ([facility]) ID Date Data Source [id number] 05/17/2020 09:46:00 PM EDT [facility] ([facility]) Name Value Range Interpretation Code Description Data Leona rce(s) Supporting Document(s) Glucose [Mass/volume] in Serum or Plasma 46 [facility] ([facility]) ID Date Data Source [id number] 05/17/2020 06:26:00 PM EDT [facility] ([facility]) Name Value Range Interpretation Code Description Data Leona rce(s) Supporting Document(s) Sars coronavirus 2 Rna [Presence] in Res piratory specimen by Daniela with probe detection Laboratory [facility] ID Date Data Source [id number] 05/17/2020 06:26:00 PM EDT [facility] ([facility]) Name Value Range Interpretation Code Description Data Leona rce(s) Supporting Document(s) Influenza virus B RNA [Presence] in Naso pharynx by Probe and target amplification method Laboratory test result [facility] ([facility]) ID Date Data Source [id number] 05/17/2020 06:26:00 PM EDT [facility] ([facility]) Name Value Range Interpretation Code Description Data Leona rce(s) Supporting Document(s) Respiratory syncytial virus RNA [Presenc e] in Nasopharynx by Probe and target amplification method Laboratory test result [facility] ([facility]) ID Date Data Source [id number] 05/17/2020 06:26:00 PM EDT [facility] ([facility]) Name Value Range Interpretation Code Description Data Leona rce(s) Supporting Document(s) Influenza virus A RNA [Presence] in Naso pharynx by Probe and target amplification method Laboratory test result [facility] ([facility]) ID Date Data Source [id number] 05/17/2020 06:26:00 PM EDT [facility] Name Value Range Interpretation Code Description Data Leona rce(s) Supporting Document(s) SARS coronavirus 2 RNA [Presence] in Res piratory specimen by DANIELA with probe detection NEGATIVE [facility] This lab was ordered by [facility] a nd reported by [facility]. ID Date Data Source [id number] 05/17/2020 06:02:00 PM EDT [facility] ([facility] Name Value Range Interpretation Code Description Data Leona rce(s) Supporting Document(s) Glucose [Mass/volume] in Capillary blood by Glucometer 149 mg/dL 83-110 Above high normal [facility] ([facility] ) ID Date Data Source [id number] 05/17/2020 04:56:00 PM EDT [facility] ([facility] Name Value Range Interpretation Code Description Data Leona rce(s) Supporting Document(s) Laboratory test finding (navigational concept) 0.01 ng/mL 0 .00-0.08 Normal (applies to non-numeric results) [facility] ID Date Data Source [id number] 05/17/2020 04:56:00 PM EDT [facility] ([facility]) Name Value Range Interpretation Code Description Data Leona rce(s) Supporting Document(s) Troponin I.cardiac [Mass/volume] in Blood 0.01 0.00-0.08 [facility] ([facility]) ID Date Data Source [id number] 05/17/2020 04:54:00 PM EDT [facility] ([facility] Name Value Range Interpretation Code Description Data Leona rce(s) Supporting Document(s) Thyrotropin [Units/volume] in Serum or Plasma 3.770 uIU/ML 0. 358-3.740 Above high normal [facility] ([facility] ) ID Date Data Source [id number] 05/17/2020 04:54:00 PM EDT [facility] ([facility] Name Value Range Interpretation Code Description Data Leona rce(s) Supporting Document(s) Glucose, Fasting 78 mg/dL 70-100 Normal (applies to non-numeric results) [facility] ([facility] Creatinine For GFR 1.31 mg/dL 0.55-1.30 Above high normal [facility] ([facility] Blood Urea Nitrogen 27 mg/dL 7-18 Above high normal [facility] Sodium Level 135 meq/L 136-145 Below low normal [facility] Glomerular Filtration Rate 42.7 Normal (applies to n on-numeric results) [facility] ([facility] <content>Units are mL/min/1.73 m2</content>
<content></content>
<content>Chronic Kidney Disease Staging per NKF:</content>
<content></content>
<content>Stage I & II GFR >=60 Normal to Mildly Decreased</content>
<content>Stage III GFR 30- 59 Moderately Decreased</content>
<content>Stage IV GFR 15-29 Severely Decreased</content>
<content>Stage V GFR <15 Very Little GFR Left</content>
<content>ESRD GFR <15 on DOCUMENTATION DESIGNER</content>
<content></content> Chloride Level 102 meq/L 98-107 Normal (applies to non-numeric r esults) [facility] ([facility] Potassium Serum 5.3 meq/L 3.5-5.1 Above high normal [facility] ([facility] Testing was performed on a hemolysed spe cimen. Suggest recollection of specimen for more accurate test results. Carbon Dioxide Level 29 meq/L 21-32 Normal (applies to non-num ana rosa results) [facility] ([facility] Anion Gap 4 meq/L 8-16 Below low normal [facility] ( [facility] Calcium Level 10.1 mg/dL 8.8-10.2 Normal (applies to non-numeric re sults) [facility] ([facility] ID Date Data Source [id number] 05/17/2020 04:54:00 PM EDT [facility] Name Value Range Interpretation Code Description Data Leona rce(s) Supporting Document(s) Ast/Sgot 55 U/L 7-37 Above high normal [facility] ([facility] Alt/SGPT 24 U/L 12-78 Normal (applies to non-numeric resul ts) [facility] ([facility] Bilirubin,Total 0.3 mg/dL 0.2-1.0 Normal (applies to non-numeric results) [facility] ([facility] Alkaline Phosphatase 100 U/L 45-117 Normal (applies to non-num ana rosa results) [facility] ([facility] Total Protein 9.0 GM/DL 6.4-8.2 Above high normal [facility] ([facility] Bilirubin,Direct Laboratory test result 0.0-0.2 Normal ( applies to non-numeric results) [facility] ([facility] ) Albumin/Globulin Ratio 1.0 1.2-2.2 Below low normal [facility] ([facility] Albumin 4.6 GM/DL 3.2-5.2 Normal (applies to non-numeric resul ts) [facility] ([facility] ID Date Data Source [id number] 05/17/2020 04:54:00 PM EDT [facility] ([facility] Name Value Range Interpretation Code Description Data Leona rce(s) Supporting Document(s) White Blood Count 13.1 10 4.0-10.0 Above high normal [facility] ([facility] Red Blood Count 5.50 10 4.00-5.40 Above high normal [facility] ([facility] Hematocrit 48.9 % 36.0-47.0 Above high normal [facility] ([facility] Hemoglobin 14.6 g/dL 12.0-15.5 Normal (applies to non-numeric resul ts) [facility] ([facility] Mean Corpuscular Volume 88.9 fl 80.0-96.0 Normal ( applies to non-numeric results) [facility] ([facility] Mean Corpuscular Hemoglobin 26.5 pg 27.0-33.0 Below low normal [facility] ([facility] Mean Corpuscular HGB Conc 29.9 g/dL 32.0-36.5 Below low normal [facility] ([facility] Red Cell Distribution Width 19.8 % 11.5-14.5 Above high normal [facility] ([facility] Platelet Count, Automated 340 10 150-450 Normal (applies to non-numeric results) [facility] ([facility] ) Neutrophils % 88.7 % 36.0-66.0 Above high normal [facility] ([facility] Lymph % 6.5 % 24.0-44.0 Below low normal [facility] ( [facility] Sevier % 3.8 % 2.0-8.0 Normal (applies to non-numeric resul ts) [facility] ([facility] Eos % 0.3 % 0.0-3.0 Normal (applies to non-numeric resul ts) [facility] ([facility] Immature Granulocyte % 0.5 % 0-3.0 Normal (applies to non-n umeric results) [facility] ([facility] Baso % 0.2 % 0.0-1.0 Normal (applies to non-numeric resul ts) [facility] ([facility] Neutrophils # 11.6 10 1.5-8.5 Above high normal [facility] ([facility] Nucleated Red Blood Cell % 0.0 % 0-0 Normal (applies to n on-numeric results) [facility] ([facility] Lymph # 0.9 10 1.5-5.0 Below low normal [facility] ( [facility] Sevier # 0.5 10 0.0-0.8 Normal (applies to non-numeric resul ts) [facility] ([facility] Eos # 0.0 10 0.0-0.5 Normal (applies to non-numeric resul ts) [facility] ([facility] Baso # 0.0 10 0.0-0.2 Normal (applies to non-numeric resul ts) [facility] ([facility] ID Date Data Source [id number] 05/17/2020 04:54:00 PM EDT [facility] ([facility] Name Value Range Interpretation Code Description Data Leona rce(s) Supporting Document(s) Laboratory test finding (navigational concept) 51.0 % 3 8.0-51.0 Normal (applies to non-numeric results) [facility] ([facility] Laboratory test finding (navigational concept) 140 meq/L 1 36-145 Normal (applies to non-numeric results) [facility] ([facility] Laboratory test finding (navigational concept) 81 mg/dL 7 0-105 Normal (applies to non-numeric results) [facility] ([facility] Laboratory test finding (navigational concept) 5.2 mg/dL 4 .5-5.3 Normal (applies to non-numeric results) [facility] ([facility] Laboratory test finding (navigational concept) 3.8 meq/L 3 .5-5.1 Normal (applies to non-numeric results) [facility] Laboratory test finding (navigational concept) 99 meq/L 9 8-109 Normal (applies to non-numeric results) [facility] ([facility] Laboratory test finding (navigational concept) 32.0 MM/L 2 3.0-27.0 Above high normal [facility] ([facility] ) Laboratory test finding (navigational concept) 33 mg/dL 8-26 Above high normal [facility] ([facility] Laboratory test finding (navigational concept) 1.3 mg/dL 0 .6-1.3 Normal (applies to non-numeric results) [facility] ID Date Data Source [id number] 05/17/2020 04:54:00 PM EDT [facility] ([facility]) Name Value Range Interpretation Code Description Data Leona rce(s) Supporting Document(s) Thyrotropin [Units/volume] in Serum or Plasma 3.770 uIU/ML 0.358-3.74 0 [facility] ([facility]) ID Date Data Source [id number] 05/10/2020 01:56:00 PM EDT [facility] ([facility] Name Value Range Interpretation Code Description Data Leona rce(s) Supporting Document(s) Glucose [Mass/volume] in Capillary blood by Glucometer 149 mg/dL 83-110 Above high normal [facility] ([facility] ID Date Data Source [id number] 05/10/2020 01:56:00 PM EDT [facility] ([facility]) Name Value Range Interpretation Code Description Data Leona rce(s) Supporting Document(s) Glucose [Mass/volume] in Capillary blood by Glucometer 149 mg/dL 83-[address] [facility] ([facility]) ID Date Data Source [id number] 05/10/2020 01:04:00 PM EDT [facility] ([facility]) Name Value Range Interpretation Code Description Data Leona rce(s) Supporting Document(s) Surgical pathology study Laboratory test result [facility] ([facility]) FINAL DIAGNOSIS Submitted as" lipoma abdominal wall": Mature adipose tissue, compatible with lipoma. Benign skin. 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 The specimen is serially sectioned to reveal benign adipose tissue and skin. Product Operations Associate sections submitted in one. -OA 05/13/2020 - 1418 Signed KASSY KOROMA MD 05/14/2020 1040 ID Date Data Source [id number] 05/10/2020 11:35:00 AM EDT [facility] ([facility] Name Value Range Interpretation Code Description Data Leona rce(s) Supporting Document(s) Glucose [Mass/volume] in Capillary blood by Glucometer 140 mg/dL 83-110 Above high normal [facility] ([facility] ID Date Data Source [id number] 05/10/2020 11:35:00 AM EDT [facility] ([facility] ) Name Value Range Interpretation Code Description Data Leona rce(s) Supporting Document(s) Glucose [Mass/volume] in Capillary blood by Glucometer 140 mg/dL 83-110 Above high normal [facility] ([facility], ) ID Date Data Source [id number] 05/05/2020 09:35:00 AM EDT [facility] Name Value Range Interpretation Code Description Data Leona rce(s) Supporting Document(s) SARS coronavirus 2 RNA Not Detected [facility] This lab was ordered by [facility] and reported by [facility]. ID Date Data Source [id number] 04/20/2020 07:20:00 PM EST [facility] ([facility] Name Value Range Interpretation Code Description Data Leona rce(s) Supporting Document(s) Glucose [Mass/volume] in Capillary blood by Glucometer 208 mg/dL 83-110 Above high normal [facility] ([facility] ) ID Date Data Source [id number] 04/20/2020 06:51:00 PM EST [facility] ([facility] Name Value Range Interpretation Code Description Data Leona rce(s) Supporting Document(s) Appearance, Urine RFX Laboratory test result Nor mal (applies to non-numeric results) [facility] ([facility] ) Color, Urine RFX Laboratory test result Normal ( applies to non-numeric results) [facility] ([facility] ) PH,Urine RFX 7.0 units 5.0-9.0 Normal (applies to non-numeric res ults) [facility] ([facility] Specific Vivian Ur Auto RFX 1.004 1.002-1.035 Nor mal (applies to non-numeric results) [facility] ([facility] ) Protein, Urine Auto RFX Laboratory test result N ormal (applies to non-numeric results) [facility] ([facility] ) Ketone, Urine Auto RFX Laboratory test result No rmal (applies to non-numeric results) [facility] ([facility] ) Glucose, Urine (Ua) Auto RFX Laboratory test result Above high normal [facility] ([facility] Urobilinogen, Urine Auto RFX 0.2 mg/dL 0.0-2.0 Nor mal (applies to non-numeric results) [facility] ([facility] ) Bilirubin, Urine Auto RFX Laboratory test result Normal (applies to non- numeric results) [facility] ([facility] Nitrite, Urine Auto RFX Laboratory test result N ormal (applies to non-numeric results) [facility] ([facility] ) Leukocyte Esterase Ur Auto RFX Laboratory test result Normal (applies to non- numeric results) [facility] ([facility] ) WBC, Urine Auto RFX 1 /HPF 0-3 Normal (applies to non-nume samantha results) [facility] ([facility] Blood, Urine Blood RFX Laboratory test result No rmal (applies to non-numeric results) [facility] ([facility] ) RBC, Urine Auto RFX 1 /HPF 0-3 Normal (applies to non-nume samantha results) [facility] ([facility] Bacteria, Urine Auto RFX Laboratory test result Normal (applies to non-numeric results) [facility] ([facility] ) Squam Epithelial Cell Ur Aurfx 1 /HPF 0-6 N ormal (applies to non-numeric results) [facility] ([facility] ) Hyaline Cast, Urine Auto RFX 0 /LPF 0-1 Normal (appl ies to non-numeric results) [facility] ([facility] ID Date Data Source [id number] 04/20/2020 06:01:00 PM EST [facility] ([facility] Name Value Range Interpretation Code Description Data Leona rce(s) Supporting Document(s) Glucose [Mass/volume] in Capillary blood by Glucometer 124 mg/dL 83-110 Above high normal [facility] ([facility] ID Date Data Source [id number] 04/20/2020 04:48:00 PM EST [facility] ([facility] Name Value Range Interpretation Code Description Data Leona rce(s) Supporting Document(s) Laboratory test finding (navigational concept) 40.0 % 3 8.0-51.0 Normal (applies to non-numeric results) [facility] ([facility] Laboratory test finding (navigational concept) 109 mg/dL 7 0-105 Above high normal [facility] ([facility] ) Laboratory test finding (navigational concept) 133 meq/L 1 36-145 Below low normal [facility] ([facility] ) Laboratory test finding (navigational concept) 4.7 meq/L 3 .5-5.1 Normal (applies to non-numeric results) [facility] ([facility] Laboratory test finding (navigational concept) 4.0 mg/dL 4 .5-5.3 Below low normal [facility] ([facility] ) Laboratory test finding (navigational concept) 100 meq/L 9 8-109 Normal (applies to non-numeric results) [facility] ([facility] Laboratory test finding (navigational concept) 29.0 MM/L 2 3.0-27.0 Above high normal [facility] ([facility] ) Laboratory test finding (navigational concept) 19 mg/dL 8 -26 Normal (applies to non-numeric results) [facility] ([facility]) Laboratory test finding (navigational concept) 0.7 mg/dL 0 .6-1.3 Normal (applies to non-numeric results) [facility] ([facility] ID Date Data Source [id number] 04/20/2020 04:46:00 PM EST [facility] ([facility] Name Value Range Interpretation Code Description Data Leona rce(s) Supporting Document(s) Lipoprotein lipase [Enzymatic activity/volume] in Serum or P lasma 270 U/L 73-393 Normal (applies to non-numeric results) [facility] ([facility] ID Date Data Source [id number] 04/20/2020 04:46:00 PM EST [facility] ([facility] Name Value Range Interpretation Code Description Data Leona e(s) Supporting Document(s) Alt/SGPT 20 U/L 12-78 Normal (applies to non-numeric resul ts) [facility] ([facility] Ast/Sgot 19 U/L 7-37 Normal (applies to non-numeric resul ts) [facility] ([facility] Bilirubin,Total Laboratory test result 0.2-1.0 Below low normal [facility] ([facility] Alkaline Phosphatase 87 U/L 45-117 Normal (applies to non-num ana rosa results) [facility] ([facility] Bilirubin,Direct Laboratory test result 0.0-0.2 Normal ( applies to non-numeric results) [facility] ([facility] Total Protein 6.7 GM/DL 6.4-8.2 Normal (applies to non-numeric re sults) [facility] ([facility] Albumin 3.6 GM/DL 3.2-5.2 Normal (applies to non-numeric resul ts) [facility] ([facility] Albumin/Globulin Ratio 1.2 1.2-2.2 Normal (applies to non-n umeric results) [facility] ([facility] ID Date Data Source [id number] 04/20/2020 04:46:00 PM EST [facility] ([facility] Name Value Range Interpretation Code Description Data [facility]) Supporting Document(s) CPK Creatine Phosphokinase 81 U/L 26-192 Roselia l (applies to non-numeric results) [facility] ([facility] MB/CK Relative Index 1.23 Normal (applies to non-num ana rosa results) [facility] ([facility] <content>DIAGNOSIS CRITERIA</content>
<content>MMB ng/ml Relative Index (RI)</content>
<content>NON-AMI < or = 5 N/A</content>
<content>GIL ZONE > 5 < or = 4</content>
<content>AMI > 5 > 4</content>
<content></content> CK-MB Value Mass Laboratory test result Normal ( applies to non-numeric results) MEDRADHA ([facility] ) Troponin I Laboratory test result Normal (applies to non-n umeric results) [facility] ([facility] <content>Troponin I Reference Interval f or Siemens [place] LOCI:</content>
<content></content>
<content>99th Percentile= 0.00-0.045 ng/ml</content>
<content></content>
<content>Risk Stratification:</content>
<content><= 0.10 ng/ml Decreased Risk for Adverse Clinical</content>
<content>Events.</content>
<content>0.10-1.50 ng/ml Increased Risk for Adverse Clinical</content>
<content>Events. Evaluation of additional</content>
<content>criterion and/or repeat testing in 2-6</content>
<content>hours is suggested to rule out myocardial</content>
<content>damage.</content>
<content>>= 1.50 ng/ml Indicative of Myocardial Injury.</content>
<content></content> ID Date Data Source [id number] 04/20/2020 04:46:00 PM EST MEDRADHA ([facility] Name Value Range Interpretation Code Description Data Leona rce(s) Supporting Document(s) Hemoglobin A1c 8.0 % Normal (applies to non-numeric r esults) SHANNAN ([facility] <content>REFERENCE RANGES:</content><br/ ><content></content>
<content><=5.6% NORMAL</content>
<content>5.7-6.4% SUGGESTS IMPAIRED GLUCOSE METABOLISM/PREDIABETIC</content>
<content>>= 6.5% ABNORMAL</content>
<content></content> Estimated Average Glucose 183 mg/dL 60-110 Above high normal [facility] ([facility] ID Date Data Source [id number] 04/20/2020 04:46:00 PM EST [facility] ([facility] Name Value Range Interpretation Code Description Data Leona rce(s) Supporting Document(s) White Blood Count 12.3 10 4.0-10.0 Above high normal [facility] ([facility] Red Blood Count 4.66 10 4.00-5.40 Normal (applies to non-numeric results) [facility] ([facility] Hemoglobin 11.8 g/dL 12.0-15.5 Below low normal [facility] ( [facility] Hematocrit 40.2 % 36.0-47.0 Normal (applies to non-numeric resul ts) [facility] ([facility] Mean Corpuscular Hemoglobin 25.3 pg 27.0-33.0 Below low normal [facility] ([facility] Mean Corpuscular Volume 86.3 fl 80.0-96.0 Normal ( applies to non-numeric results) [facility] ([facility] ) Mean Corpuscular HGB Conc 29.4 g/dL 32.0-36.5 Below low normal [facility] ([facility] Red Cell Distribution Width 18.5 % 11.5-14.5 Above high normal [facility] ([facility] Platelet Count, Automated 296 10 150-450 Normal (applies to non-numeric results) [facility] ([facility] ) Neutrophils % 82.8 % 36.0-66.0 Above high normal MEDE NT ([facility] Lymph % 11.3 % 24.0-44.0 Below low normal [facility] ( [facility] Sevier % 4.5 % 2.0-8.0 Normal (applies to non-numeric resul ts) [facility] ([facility] Eos % 0.5 % 0.0-3.0 Normal (applies to non-numeric resul ts) [facility] ([facility] Baso % 0.2 % 0.0-1.0 Normal (applies to non-numeric resul ts) [facility] ([facility] Immature Granulocyte % 0.7 % 0-3.0 Normal (applies to non-n umeric results) [facility] ([facility] Nucleated Red Blood Cell % 0.0 % 0-0 Normal (applies to n on-numeric results) [facility] ([facility] Neutrophils # 10.2 10 1.5-8.5 Above high normal MEDE NT ([facility] Lymph # 1.4 10 1.5-5.0 Below low normal [facility] ( [facility] Sevier # 0.6 10 0.0-0.8 Normal (applies to non-numeric resul ts) [facility] ([facility] Baso # 0.0 10 0.0-0.2 Normal (applies to non-numeric resul ts) [facility] ([facility] Eos # 0.1 10 0.0-0.5 Normal (applies to non-numeric resul ts) [facility] ([facility] ID Date Data Source [id number] 04/08/2020 07:05:00 PM EST [facility] ([facility] ) Name Value Range Interpretation Code Description Data Leona rce(s) Supporting Document(s) Hemoglobin A1c/Hemoglobin.total in Blood 7.9 % [facility] ([facility] ) <content>REFERENCE RANGES:</content><br/ ><content></content>
<content><=5.6% NORMAL</content>
<content>5.7-6.4% SUGGESTS IMPAIRED GLUCOSE METABOLISM/PREDIABETIC</content>
<content>>= 6.5% ABNORMAL</content>
<content></content>
<content></content> Estimated Average Glucose 180 mg/dL 60-110 [facility] ([facility] ) ID Date Data Source [id number] 04/08/2020 07:05:00 PM EST [facility] ([facility] Name Value Range Interpretation Code Description Data Leona rce(s) Supporting Document(s) Appearance, Urine RFX Laboratory test result Nor mal (applies to non-numeric results) [facility] ([facility] Color, Urine RFX Laboratory test result Normal ( applies to non-numeric results) [facility] ([facility] Specific Vivian Ur Auto RFX 1.022 1.002-1.035 Nor mal (applies to non-numeric results) [facility] ([facility] ) PH,Urine RFX 5.0 units 5.0-9.0 Normal (applies to non-numeric res ults) [facility] ([facility] Protein, Urine Auto RFX Laboratory test result N ormal (applies to non-numeric results) [facility] ([facility] ) Glucose, Urine (Ua) Auto RFX Laboratory test result Above high normal [facility] ([facility] Ketone, Urine Auto RFX Laboratory test result No rmal (applies to non-numeric results) [facility] ([facility] ) Urobilinogen, Urine Auto RFX 0.2 mg/dL 0.0-2.0 Nor mal (applies to non-numeric results) [facility] ([facility] ) Nitrite, Urine Auto RFX Laboratory test result N ormal (applies to non-numeric results) [facility] ([facility] ) Bilirubin, Urine Auto RFX Laboratory test result Normal (applies to non- numeric results) [facility] ([facility] ) Leukocyte Esterase Ur Auto RFX Laboratory test result Normal (applies to non- numeric results) [facility] ([facility] ) Blood, Urine Blood RFX Laboratory test result No rmal (applies to non-numeric results) [facility] ([facility] ) WBC, Urine Auto RFX 2 /HPF 0-3 Normal (applies to non-nume samantha results) [facility] ([facility] Bacteria, Urine Auto RFX Laboratory test result Normal (applies to non-numeric results) [facility] ([facility] ) RBC, Urine Auto RFX 2 /HPF 0-3 Normal (applies to non-nume samantha results) [facility] ([facility] Squam Epithelial Cell Ur Aurfx 0 /HPF 0-6 N ormal (applies to non-numeric results) [facility] ([facility] ) Mucus, Urine RFX Laboratory test result Normal ( applies to non-numeric results) [facility] ([facility] ) Hyaline Cast, Urine Auto RFX 0 /LPF 0-1 Normal (appl ies to non-numeric results) [facility] ([facility] ID Date Data Source [id number] 04/08/2020 07:05:00 PM EST [facility] ([facility] Name Value Range Interpretation Code Description Data Leona rce(s) Supporting Document(s) Hemoglobin A1c 7.9 % Normal (applies to non-numeric r esults) [facility] ([facility] <content>REFERENCE RANGES:</content><br/ ><content></content>
<content><=5.6% NORMAL</content>
<content>5.7-6.4% SUGGESTS IMPAIRED GLUCOSE METABOLISM/PREDIABETIC</content>
<content>>= 6.5% ABNORMAL</content>
<content></content> Estimated Average Glucose 180 mg/dL 60-110 Above high normal [facility] ([facility] ID Date Data Source [id number] 04/08/2020 06:27:00 PM EST [facility] ([facility]) Name Value Range Interpretation Code Description Data Leona rce(s) Supporting Document(s) Osmolality of Serum or Plasma 301 280-301 [facility] ([facility]) ID Date Data Source [id number] 04/08/2020 06:27:00 PM EST [facility] ([facility]) Name Value Range Interpretation Code Description Data Leona rce(s) Supporting Document(s) Beta hydroxybutyrate [Mass/volume] in Serum or Plasma 1.15 [facility] ([facility]) ID Date Data Source [id number] 04/08/2020 06:27:00 PM EST MED[facility] ([facility] Name Value Range Interpretation Code Description Data Leona rce(s) Supporting Document(s) Magnesium [Mass/volume] in Serum or Plasma 1.8 mg/dL 1.8-2 .4 Normal (applies to non-numeric results) [facility] ([facility]) Laboratory test finding (navigational concept) 1.15 mg/dL Normal (applies to non-numeric results) [facility] ([facility]) Lipoprotein lipase [Enzymatic activity/volume] in Serum or P lasma 215 U/L 73-393 Normal (applies to non-numeric results) [facility] ([facility] Osmolality of Serum or Plasma 301 MOSM/KG 280-301 No rmal (applies to non-numeric results) [facility] ([facility] ) ID Date Data Source [id number] 04/08/2020 06:27:00 PM EST MEDENT ([facility] Name Value Range Interpretation Code Description Data Leona rce(s) Supporting Document(s) Glucose, Fasting 333 mg/dL 70-100 Above high normal M EDENT ([facility] Creatinine For GFR 0.92 mg/dL 0.55-1.30 Normal (applies to non -numeric results) [facility] ([facility] Blood Urea Nitrogen 22 mg/dL 7-18 Above high normal [facility] ([facility] Sodium Level 136 meq/L 136-145 Normal (applies to non-numeric res ults) [facility] ([facility] Glomerular Filtration Rate Laboratory test result Normal (applies to non- numeric results) [facility] ([facility] ) <content>Units are mL/min/1.73 m2</content>
<content></content>
<content>Chronic Kidney Disease Staging per NKF:</content>
<content></content>
<content>Stage I & II GFR >=60 Normal to Mildly Decreased</content>
<content>Stage III GFR 30-59 Moderately Decreased</content>
<content>Stage IV GFR 15-29 Severely Decreased</content>
<content>Stage V GFR <15 Very Little GFR Left</content>
<content>ESRD GFR <15 on DOCUMENTATION DESIGNER</content>
<content></content> Potassium Serum 4.3 meq/L 3.5-5.1 Normal (applies to non-numeric results) [facility] ([facility] Chloride Level 98 meq/L 98-107 Normal (applies to non-numeric r esults) [facility] ([facility] Carbon Dioxide Level 31 meq/L 21-32 Normal (applies to non-num ana rosa results) [facility] ([facility] Calcium Level 9.1 mg/dL 8.8-10.2 Normal (applies to non-numeric re sults) [facility] ([facility] Anion Gap 7 meq/L 8-16 Below low normal [facility] ( [facility] ID Date Data Source [id number] 04/08/2020 06:27:00 PM EST MEDENT ([facility] Name Value Range Interpretation Code Description Data Leona rce(s) Supporting Document(s) Alt/SGPT 22 U/L 12-78 Normal (applies to non-numeric resul ts) [facility] ([facility] Ast/Sgot 19 U/L 7-37 Normal (applies to non-numeric resul ts) [facility] ([facility] Alkaline Phosphatase 100 U/L 45-117 Normal (applies to non-num ana rosa results) [facility] ([facility] Bilirubin,Total Laboratory test result 0.2-1.0 Below low normal [facility] ([facility] Total Protein 6.1 GM/DL 6.4-8.2 Below low normal MEDEN T ([facility] Bilirubin,Direct Laboratory test result 0.0-0.2 Normal ( applies to non-numeric results) [facility] ([facility] ) Albumin/Globulin Ratio 1.1 1.2-2.2 Below low normal [facility] ([facility] Albumin 3.2 GM/DL 3.2-5.2 Normal (applies to non-numeric resul ts) [facility] ( [facility] ID Date Data Source [id number] 04/08/2020 06:27:00 PM EST SHANNAN ([facility]) Name Value Range Interpretation Code Description Data Leona rce(s) Supporting Document(s) CPK Creatine Phosphokinase 102 U/L 26-192 Roselia l (applies to non-numeric results) SHANNAN ([facility] MB/CK Relative Index 1.57 Normal (applies to non-num ana rosa results) SHANNAN ([facility] <content>DIAGNOSIS CRITERIA</content>
<content>MMB ng/ml Relative Index (RI)</content>
<content>NON-AMI < or = 5 N/A</content>
<content>GIL ZONE > 5 < or = 4</content>
<content>AMI > 5 > 4</content>
<content></content> CK-MB Value Mass 1.6 ng/mL Normal (applies to non-numeric results) SHANNAN ([facility] Troponin I Laboratory test result Normal (applies to non-n umeric results) [facility] <content>Troponin I Reference Interval f or Siemens [place] LOCI:</content>
<content></content>
<content>99th Percentile= 0.00-0.045 ng/ml</content>
<content></content>
<content>Risk Stratification:</content>
<content><= 0.10 ng/ml Decreased Risk for Adverse Clinical</content>
<content>Events.</content>
<content>0.10-1.50 ng/ml Increased Risk for Adverse Clinical</content>
<content>Events. Evaluation of additional</content>
<content>criterion and/or repeat testing in 2-6</content>
<content>hours is suggested to rule out myocardial</content>
<content>damage.</content>
<content>>= 1.50 ng/ml Indicative of Myocardial Injury.</content>
<content></content> ID Date Data Source [id number] 04/08/2020 06:27:00 PM EST MEDENT ([facility] Name Value Range Interpretation Code Description Data Leona rce(s) Supporting Document(s) White Blood Count 7.0 10 4.0-10.0 Normal (applies to non-numeri c results) [facility] ([facility] Hemoglobin 10.4 g/dL 12.0-15.5 Below low normal [facility] ( [facility] Red Blood Count 4.16 10 4.00-5.40 Normal (applies to non-numeric results) [facility] ([facility] Mean Corpuscular Volume 84.1 fl 80.0-96.0 Normal ( applies to non-numeric results) [facility] ([facility] ) Hematocrit 35.0 % 36.0-47.0 Below low normal [facility] ( [facility] Mean Corpuscular HGB Conc 29.7 g/dL 32.0-36.5 Below low normal [facility] ([facility] Mean Corpuscular Hemoglobin 25.0 pg 27.0-33.0 Below low normal [facility] ([facility] Red Cell Distribution Width 18.4 % 11.5-14.5 Above high normal [facility] ([facility] Neutrophils % 59.6 % 36.0-66.0 Normal (applies to non-numeric re sults) [facility] ([facility] Platelet Count, Automated 284 10 150-450 Normal (applies to non-numeric results) [facility] ([facility] ) Lymph % 32.1 % 24.0-44.0 Normal (applies to non-numeric resul ts) [facility] ([facility] Sevier % 5.9 % 0.0-8.0 Normal (applies to non-numeric resul ts) [facility] ([facility] Eos % 2.0 % 0.0-3.0 Normal (applies to non-numeric resul ts) [facility] ([facility] Baso % 0.1 % 0.0-1.0 Normal (applies to non-numeric resul ts) [facility] ([facility] Nucleated Red Blood Cell % 0.0 % 0-0 Normal (applies to n on-numeric results) [facility] ([facility] Immature Granulocyte % 0.3 % 0-3.0 Normal (applies to non-n umeric results) [facility] ([facility] Sevier # 0.4 10 0.0-0.8 Normal (applies to non-numeric resul ts) [facility] ([facility] Neutrophils # 4.1 10 1.5-8.5 Normal (applies to non-numeric re sults) [facility] ([facility] Lymph # 2.2 10 1.5-5.0 Normal (applies to non-numeric resul ts) [facility] ([facility] Eos # 0.1 10 0.0-0.5 Normal (applies to non-numeric resul ts) [facility] ([facility] Baso # 0.0 10 0.0-0.2 Normal (applies to non-numeric resul ts) [facility] ([facility] ID Date Data Source [id number] 04/08/2020 06:27:00 PM EST MED[facility] ([facility] Name Value Range Interpretation Code Description Data Leona rce(s) Supporting Document(s) Venous PH 7.383 units 7.330-7.430 Normal (applies to non-numeric res ults) [facility] ([facility] Venous Partial Pressure O2 42.0 mmHg 30.0-50.0 Roselia l (applies to non-numeric results) [facility] ([facility] ) Venous Partial Pressure Co2 52.7 mmHg 38.0-50.0 Above high normal [facility] ([facility] Venous Hco3 30.7 meq/L 23.0-27.0 Above high normal [facility] ([facility] Venous Total Co2 32.3 meq/L 24.0-28.0 Above high normal M EDENT ([facility] Venous Base Excess 4.7 Above high normal [facility] ([facility] Venous Standard Hco3 28.2 meq/L Normal (applies to non-num ana rosa results) [facility] ([facility] Venous O2 Saturation 74.1 % 60.0-80.0 Normal (applies to non-num ana rosa results) [facility] ([facility] ID Date Data Source [id number] 03/28/2020 09:10:00 AM EST MED[facility] ([facility] ) Name Value Range Interpretation Code Description Data Leona rce(s) Supporting Document(s) C reactive protein [Mass/volume] in Serum or Plasma by High sensitivity method Laboratory test result 0.00-0.30 [facility] ([facility]) ID Date Data Source [id number] 03/28/2020 09:10:00 AM EST MEDENT ([facility]) Name Value Range Interpretation Code Description Data Leona rce(s) Supporting Document(s) Procalcitonin [Mass/volume] in Serum or Plasma 0.18 [facility] ([facility]) ID Date Data Source [id number] 03/28/2020 09:10:00 AM EST [facility] ([facility]) Name Value Range Interpretation Code Description Data Leona rce(s) Supporting Document(s) Erythrocyte sedimentation rate by Westergren method 23 0-30 [facility] ID Date Data Source [id number] 03/28/2020 06:16:00 AM EST [facility] Name Value Range Interpretation Code Description Data Leona rce(s) Supporting Document(s) SARS coronavirus 2 RNA [Presence] in Res piratory specimen by DANIELA with probe detection NEGATIVE [facility] This lab was ordered by [facility] a nd reported by [facility]. ID Date Data Source [id number] 03/28/2020 05:11:00 AM EST [facility] ([facility]) Name Value Range Interpretation Code Description Data Leona rce(s) Supporting Document(s) Urine Culture Laboratory test result [facility] ([facility]) Urine Culture Laboratory test result [facility] ([facility]) ID Date Data Source [id number] 03/28/2020 03:33:00 AM EST [facility] ([facility] ) Name Value Range Interpretation Code Description Data Leona rce(s) Supporting Document(s) Lactic Acid Level 1.5 0.4-2.0 [facility] ([facility] ) ID Date Data Source [id number] 02/29/2020 07:44:00 PM EST [facility] Name Value Range Interpretation Code Description Data Leona rce(s) Supporting Document(s) SARS-CoV-2 (COVID 19) NEGATIVE - SARS-CoV-2 (COVID19) [facility] This lab was ordered by [facility] a nd reported by [facility]. ID Date Data Source [id number] 02/27/2020 11:39:00 AM EST [facility] ([facility], ) Name Value Range Interpretation Code Description Data Leona rce(s) Supporting Document(s) Creatinine For GFR 1.05 mg/dL 0.55-1.30 Normal (applies to non -numeric results) [facility] Glomerular Filtration Rate 55.3 Normal (applies to n on-numeric results) [facility] ([facility]) <content>Units are mL/min/1.73 m2</content>
<content></content>
<content>Chronic Kidney Disease Staging per NKF:</content>
<content></content>
<content>Stage I & II GFR >=60 Normal to Mildly Decreased</content>
<content>Stage III GFR 30- 59 Moderately Decreased</content>
<content>Stage IV GFR 15-29 Severely Decreased</content>
<content>Stage V GFR <15 Very Little GFR Left</content>
<content>ESRD GFR <15 on DOCUMENTATION DESIGNER</content>
<content></content> ID Date Data Source [id number] 02/27/2020 11:39:00 AM EST [facility] ([facility], ) Name Value Range Interpretation Code Description Data Leona rce(s) Supporting Document(s) Urea nitrogen [Mass/volume] in Serum or Plasma 19 mg/dL 7-18 Above high normal [facility] ID Date Data Source [id number] 02/27/2020 11:39:00 AM EST [facility] ([facility]) Name Value Range Interpretation Code Description Data Leona rce(s) Supporting Document(s) Ferritin [Mass/volume] in Serum or Plasma 8 ng/mL 8-252 Normal (applies to non- numeric results) [facility] ([facility]) ID Date Data Source [id number] 02/27/2020 11:39:00 AM EST [facility] Name Value Range Interpretation Code Description Data Leona rce(s) Supporting Document(s) Total Iron Binding Capacity 433 ug/dL 250-450 Norm al (applies to non-numeric results) [facility] ([facility]) Iron (Fe) 30 ug/dL 50-[address] [facility] ( [facility]) Percent Saturation 6.9 % 13.2-45.[address] [facility] ([facility]) ID Date Data Source [id number] 02/27/2020 11:39:00 [facility] Name Value Range Interpretation Code Description Data Leona rce(s) Supporting Document(s) Red Blood Count 4.50 10 4.00-5.40 Normal (applies to non-numeric results) [facility] ([facility]) White Blood Count 6.3 10 4.0-10.0 Normal (applies to non-numeri c results) [facility] ([facility]) Hematocrit 36.6 % 36.0-47.0 Normal (applies to non-numeric resul ts) [facility] [facility] ([facility]) Hemoglobin 10.9 g/dL 12.0-15.[address] [facility] [facility] ( [facility]) Mean Corpuscular HGB Conc 29.8 g/dL 32.0-36.[address] [facility] ([facility]) Mean Corpuscular Hemoglobin 24.2 pg 27.0-33.[address] [facility] ([facility]) Mean Corpuscular Volume 81.3 fl 80.0-96.0 Normal ( applies to non-numeric results) [facility], ) Platelet Count, Automated 356 10 150-450 Normal (applies to non-numeric results) [facility] ([facility]) Red Cell Distribution Width 17.3 % 11.5-14.5 Above high normal [facility] Lymph % 37.0 % 24.0-44.0 Normal (applies to non-numeric resul ts) [facility] ([facility]) Neutrophils % 52.7 % 36.0-66.0 Normal (applies to non-numeric re sults) [facility] ([facility]) Sevier % 6.2 % 0.0-5.0 Above high normal [facility] ([facility]) Eos % 3.2 % 0.0-3.0 Above high normal [facility] Immature Granulocyte % 0.3 % 0-3.0 Normal (applies to non-n umeric results) [facility] ([facility]) Baso % 0.6 % 0.0-1.0 Normal (applies to non-numeric resul ts) [facility] ([facility]) Lymph # 2.3 10 1.5-5.0 Normal (applies to non-numeric resul ts) [facility] ([facility]) Neutrophils # 3.3 10 1.5-8.5 Normal (applies to non-numeric re sults) [facility] Nucleated Red Blood Cell % 0.0 % 0-0 Normal (applies to n on-numeric results) [facility] ([facility]) Sevier # 0.4 10 0.0-0.8 Normal (applies to non-numeric resul ts) [facility] ([facility]) Eos # 0.2 10 0.0-0.5 Normal (applies to non-numeric resul ts) [facility] ([facility]) Baso # 0.0 10 0.0-0.2 Normal (applies to non-numeric resul ts) [facility] ([facility]) ID Date Data Source [id number] 01/18/2020 04:42:00 PM EST [facility] ([facility] ) Name Value Range Interpretation Code Description Data Leona rce(s) Supporting Document(s) Lactate [Moles/volume] in Venous blood 1.11 0.4-2.0 [facility] ([facility]) ID Date Data Source [id number] 01/18/2020 04:31:00 PM EST [facility] ([facility]) Name Value Range Interpretation Code Description Data Leona rce(s) Supporting Document(s) aPTT in Blood by Coagulation assay 28.3 24.2-38.5 [facility] ([facility]) ID Date Data Source [id number] 01/18/2020 04:31:00 PM EST [facility] ([facility]) Name Value Range Interpretation Code Description Data Leona rce(s) Supporting Document(s) INR in Platelet poor plasma by Coagulation assay 0.91 [facility] ([facility]) ID Date Data Source [id number] 01/18/2020 04:31:00 PM EST [facility] ([facility]) Name Value Range Interpretation Code Description Data Leona rce(s) Supporting Document(s) Prothrombin time (PT) 12.4 12.5-14.3 [facility] ( [facility]) ID Date Data Source [id number] 01/01/2020 10:05:00 [place] [address] RESPIRATORY CARE REPORT ==== ---------NAME------- NUMBER SEX AGE ADMIT DISC. XRAY# F/C NIDA De Souza [id number] F 69 12/31/19 12/31/19815716 JAN E/R DATE OF : 1950 M/R# [id number] #: [id number] TR-02 LOCATION: EMERGENCY DEPT [facility] [id number] COMP LETE:12/31/19 16:15 M [id number] PHYSICIAN: ZOHREH WAITE Name Value Range Interpretation Code Description Data Leona rce(s) Supporting Document(s) ID Date Data Source [id number] 01/01/2020 10:02:00 AM EST [facility] [address] [place] [address] PHONE: [phone] FAX: [phone] Name .................. : MARY De Souza Acct Number.................. : [id number] ROOM. ................. : TR-02 MR Number ................... : [id number] Stay type ............. : E/R Discharge Date......... ... : Admit Date ......... : 12/31/19 Admit Phys .................... : ZOHREH WAITE Date of ....... : 1950 Family Phys ................... : VASHTI S Phone .................. : [phone] Age ................................ : 69 Film# .................. .:[id number] Sex ................................. : F Unsigned transcriptions are preliminary reports and do not represent a medical or legal document CHEST PORTABLE [id number] COMPLETE:12/31/19 15:38 55725 Reason(s): Chest Pain PORTABLE CHEST X-RAY: HISTORY: [...] rce(s) Supporting Document(s) ID Date Data Source [id number] 12/31/2019 03:26:00 PM EST [facility] 1 OrderSheet [facility] Emergency Department [address] [place] [address] Phone #: ext- [phone] 12/31/2019 15:23 Patient: [...] Description Priority Entered Acknowledged Initialed 2 OrderSheet [facility] Emergency Department [address] [place] [address] Phone #: ext- [phone] 12/31/2019 15:23 Patient: SARMAD HERNANDEZ Sex: F : 1950 Age: 69yAspirin PO 15:39 12/31/2019 15:44 Roz,Chewable 81 mg Michael Eastman R.N.162 mg (NOW) Physician;DuoNeb 3 mL X2 15:49 [...] Courtney R.N. Physician;Pulse oximeter 15:38 12/31/2019 15:43 Roz,(Continuous) Michael Eastman R.N. Physician;Oxygen titrate to 15:38 12/31/2019 15:43 Roz,92% Michael Eastman R.N. Physician;[Electronically signed by Jaren Courtney R.N. (18:17 12/31/2019)][Electronically signed by Michael Bruner Physician (18:45 12/31/2019)][Electronically locked by Jaren Courtney R.N. (18:17 12/31/2019)] Name Value Range Interpretation Code Description Data Leona rce(s) Supporting Document(s) ID Date Data Source [id number] 12/31/2019 03:26:00 PM EST [facility] 1 Medication Reconciliation Report [facility] Emergency Department [address] [place] [address] Phone #: ext- [phone] 12/31/2019 15:23 Patient: [...] 12/31/2019 3:52:00 PM 2 Medication Reconciliation Report [facility] Emergency Department [address] [place] [address] Phone #: ext- [phone] 12/31/2019 15:23 Patient: [...] 1 inhaler. Refills: 1. Substitution permitted.Pharmacy - [facility] - [address] ; [place] [address]. . -- Physician ManoloPrednisone 10mg Tapersig: take [...] rce(s) Supporting Document(s) ID Date Data Source [id number] 12/31/2019 03:26:00 PM EST [facility] 1 Medication Administration Record [facility] Emergency Department [address] [place] [address] Phone #: ext- [phone] 12/31/2019 15:23 Patient: SARMAD HERNANDEZ Sex: Lyndsey : 1950 Age: 69yWeight: 79.3 kgHeight/Length: 60 inBMI: 34.1ALLERGIES: Tape allergy Date/Time Medication Administered Medication OrderedGiven ASPIRIN CHEWABLE 81 MG [PO] Aspirin PO Chewable 81 mg 18313:44 12/31/2019 Dose: 81 mg Tablets PO mg [...] (NOW)17:27 12/31/2019 Dose: 1 unit dose Nebulizer Jaren Kay R.N. Name Value Range Interpretation Code Description Data Leona rce(s) Supporting Document(s) ID Date Data Source [id number] 12/31/2019 03:26:00 PM EST [facility] 1 General Instructions [facility] Emergency Department [address] [place] [address] Phone #: ext- [phone] 12/31/2019 15:23 Patient: [...] 1 inhaler. Refills: 1. Substitution permitted.Pharmacy - [facility] #37 - [address] ; [place] [address]. .Prednisone 10mg Tapersig: take 6 tabs PO [...] patient. ADDITIONAL INFORMATIONBronchospasm (Adult) 2 General Instructions [facility] Emergency Department [address] [place] [address] Phone #: ext- [phone] 12/31/2019 15:23 Patient: SARMAD HERNANDEZ Sex: F [...] you drink extra fluids. 3 General Instructions [facility] Emergency Department [address] [place] [address] Phone #: ext- [phone] 12/31/2019 15:23 Patient: [...] breath Increased wheezing or shortness of breath [phone] [employer]. [address] [place] [address], [place] [address]. All rights reserved. This information is not intended as asubstitute for professional medical care. Always follow your healthcare professional's instructions.Asthma (Adult)Asthma is a disease where the medium and small air passages within the lung go into spasm andrestrict the flow of air. Inflammation and swelling of the airways cause further blockage. During an 4 General Instructions [facility] Emergency Department [address] [place] [address] Phone #: ext- [phone] 12/31/2019 15:23 Patient: [...] better after a few 5 General Instructions [facility] Emergency Department [address] [place] [address] Phone #: ext- [phone] 12/31/2019 15:23 Patient: [...] 80%) 15 minutes after using inhaler medicine.Call [phone] if any of the following occur Trouble walking or talking because of shortness of breath If you use a peak flow meter as part of an Asthma Action Plan and you are still in the red zone (less than 50%) 15 minutes after using inhaler medicine Lips or fingernails turning igl or blue [phone] [employer]. [address] [place] [address]. All rights reserved. This information is not intended as a 6 General Instructions [facility] Emergency Department [address] [place] [address] Phone #: ext- [phone] 12/31/2019 15:23 Patient: SARMAD HERNANDEZ Sex: F : 1950 Age: 69ysubstitute for professional medical care. Always follow your healthcare professional's instructions. You have been given the following additional information: Bronchospasm (Adult) Asthma, Acute (Adult)(Electronically signed by Michael Bruner, Physician 12/31/2019 18:45) Name Value Range Interpretation Code Description Data Leona rce(s) Supporting Document(s) ID Date Data Source [id number] 12/31/2019 03:26:00 PM EST [facility] 1 Clinical Report - Nurses [facility] Emergency Department [address] [place] [address] Phone #: [phone]- [phone] 12/31/2019 15:23 Patient: SARMAD HERNANDEZ Sex: F [...] (3 days). ( wheezes, chest pain reproducable).Treatment FLORAL MANAGER:None. --15:35 12/31/19 Fay Martinez R.N.15:24 12/31/19. [...] R.N.ADDITIONAL SURGERIES: 2 Clinical Report - Nurses [facility] Emergency Department [address] [place] [address] Phone #: ext- [phone] 12/31/2019 15:23 [id number] Sex[facility] F : 1950 Age: 69y Appendectomy. [...] plan discussed with patient. Patient has a jy-izf-xszchskibxj (DNR) (dnr/dni). --15:36 12/31/19 Fay Martinez R.N.PHYSICAL ASSESSMENTGENERAL / NEURO / PSYCH: Alert. Oriented X 4. Appears anxious.RESPIRATORY: Respirations not labored.CVS: Normal sinus rhythm noted. 3 Clinical Report - Nurses [facility] Emergency Department [address] [place] [address] Phone #: ext- [phone] 12/31/2019 15:23 Patient: [...] Jaren Courtney R.N. Portable chest x-ray completed. ([id number]). --16:35 12/31/19 Jaren Courtney R.N. 17:03 12/31/19. BP: 138/56. MAP: 83. HR: 74. RR: 20. O2 saturation: 97%. Temp: 98.6 F. --17:08 12/31/19 Ashley Sears RN 17:27 12/31/2019 Duoneb Neb TX Nebulizer 1 unit dose given. --17:27 12/31/19 Jaren Courtney R.N. 4 Clinical Report - Nurses [facility] Emergency Department [address] [place] [address] Phone #: ext- [phone] 12/31/2019 15:23 Patient: SARMAD HERNANDEZ Sex: F [...] shown to the ED physician. --17:43 12/31/19 [place] air technician, Davey, JENNY Tech1.DISPOSITION / DISCHARGE No learning barriers present. Written instructions provided in [place]. The patient was discharged by the physician. [...] rce(s) Supporting Document(s) ID Date Data Source [id number] 12/31/2019 03:26:00 PM EST [facility] 1 Clinical Report - Physicians/Mid Levels [facility] Emergency Department [address] [place] [address] Phone #: ext- [phone] 12/31/2019 15:23 Patient: [...] inspection. 2 Clinical Report - Physicians/Mid Levels [facility] Emergency Department [address] [place] [address] Phone #: ext- [phone] 12/31/2019 15:23 Patient: [...] 12/31/2019 17:39) In [place] [address] PHONE: [phone] FAX: [phone] Name .................. : MARY De Souza Acct Number.................. : [id number] ROOM. ................. : TR-02 MR Number ................... : [id number] Stay type ............. : E/R Discharge Date......... ... : Admit Date ......... : 12/31/19 Admit Phys .................... : ZOHREH WAITE Date of ....... : 1950 Family Phys ................... : VASHTI S Phone .................. : [phone] Age ..................... ........... : 69 Film# .................. .:[id number] Sex ................................. : F Unsigned transcriptions are preliminary reports and do not represent a medical or legal document CHEST PORTABLE [id number] COMPLETE:12/31/19 15:38 66094 Reason(s): Chest Pain Shortness of Breath PORTABLE CHEST X-RAY: HISTORY: Chest pain. COMPARISON: None. FINDINGS: Normal heart size and pulmonary vessels. Clear lungs. No pleural effusions. No acute or focal osseous abnormal. IMPRESSION: No active disease is seen in the chest. 3 Clinical Report - Physicians/Mid Levels [facility] Emergency Department [address] [place] [address] Phone #: ext- [phone] 12/31/2019 15:23 Patient: SARMAD HERNANDEZ Sex: F : 1950 Age: 69y Electronically Reviewed and Signed By JÚNIOR SIGNDASHAWN CULLEN Transcribe Initials: HAZEL , Transcribe Date: 12/31/19 17:35, Dictation Date: <<REPDIST>> Page 1of 1Urinalysis: (POONAM: 12/31/2019 16:05) ( [facility] [place] 16:31[place] Final results Test Result Flag [...] FEW (NORMAL: NONEBNP: (POONAM: 12/31/2019 15:35) ( MsgRcvd 12/31/2019 16:27) Final results Test Result Flag Units (Reference) BNP 144 H PG/ML (0 - 125)CBC w Diff: (POONAM: 12/31/2019 15:35) ( [facility] [place] 12/31/2019 16:13) Final results Test Result [...] 40.0) 4 Clinical Report - Physicians/Mid Levels [facility] Emergency Department [address] [place] [address] Phone #: ext- [phone] 12/31/2019 15:23 Patient: [...] Male GFR Interprentation 20-49 yrs >60 mL/min Emizgz92-77 yrs >56 mL/min Normal 60-69 yrs >49 mL/min Normal 70-79yrs>42 mL/min Normal 80 and above >35 mL/min Normal Female GFRInterpretation 20-39 yrs >60 mL/min Normal 40-49 yrs >58 mL/minNormal 50-59 yrs >51 mL/min Normal 60-69 yrs >45 mL/min Wgzxjq10-16 yrs >39 mL/min Normal 80 and above >32 mL/min NormalD-Dimer: (POONAM: 12/31/2019 15:35) ( MsgRcvd 12/31/2019 16:13) Final results Test Result Flag Units (Reference) D-DIMER QUANT <0.27 ug/mL (0.27 - 0.50)Troponin-T: (POONAM: 12/31/2019 15:35) ( MsgRcvd 12/31/2019 16:20) Final results Test Result Flag Units (Reference) TROPONIN T <0.01 NG/ML (0.00 - 0.10) TROPONIN T0.1 ng/ml Recommended as the clinical threshold value Kanchan T. 5 Clinical Report - Physicians/Mid Levels [facility] Emergency Department [address] [place] [address] Phone #: ext- [phone] 12/31/2019 15:23 Patient: SARMAD HERNANDEZ Sex: F [...] inhaler. Refills: 1. Substitution permitted. Pharmacy - [facility] - [address] ; [place] [address]. . Prednisone 10mg Taper sig: take 6 tabs PO each day for 2 days, then Take 5 tabs PO each day for 2 days, then Take 4 tabs PO each day for 2 days, then Take 3 tabs PO each day for 2 days, then 6 Clinical Report - Physicians/Mid Levels [facility] Emergency Department [address] [place] [address] Phone #: [phone] ext- [phone] 12/31/2019 15:23 Patient: SARMAD HERNANDEZ Sex: F [...] Name Value Range Interpretation Code Description Data [facility](s) Supporting Document(s) ID Date Data Source [id number] 12/31/2019 04:05:00 PM EST [facility] ([facility] Name Value Range Interpretation Code Description Data Leona rce(s) Supporting Document(s) Urinalysis Laboratory test result [facility] ([facility] SOURCE: Clean Catch Clarity Laboratory test result [facility] ([facility] SOURCE: Clean Catch Source Laboratory test result [facility] ([facility] SOURCE: Clean Catch Color Laboratory test result [facility] ([facility] SOURCE: Clean Catch Glucose 250 Abnormal (applies to non-numeric res ults) [facility] ([facility] SOURCE: Clean Catch pH 6.5 5-9 [facility] ([facility] SOURCE: Clean Catch Spec Vivian 1.010 1.001-1.030 [facility] ([facility] SOURCE: Clean Catch Ketone Laboratory test result [facility] ([facility] SOURCE: Clean Catch Protein Laboratory test result [facility] ([facility] SOURCE: Clean Catch Bilirubin Laboratory test result [facility] ([facility] SOURCE: Clean Catch Nitrite Laboratory test result [facility] ([facility] SOURCE: Clean Catch Blood Laboratory test result [facility] ([facility] SOURCE: Clean Catch Leuk Est 25 [facility] ([facility] SOURCE: Clean Catch Urobilinogen Laboratory test result [facility] ([facility] SOURCE: Clean Catch Microscopic Laboratory test result [facility] ([facility] SOURCE: Clean Catch WBC Laboratory test result [facility] ([facility] SOURCE: Clean Catch Epithelial Laboratory test result [facility] ([facility] SOURCE: Clean Catch ID Date Data Source [id number] 12/31/2019 04:31:00 PM EST [facility] Name Value Range Interpretation Code Description Data Leona rce(s) Supporting Document(s) [facility]YSIS [facility] UR[facility] SOURCE Clean Catch [facility] COLOR yellow NORMAL: Yellow [facility] CLARITY clear NORMAL: Clear [facility] Specific gravity of Urine by Test strip 1.010 1.001 - 1.030 [facility] pH 6.5 5 - 9 [facility] Glucose [Mass/volume] in Urine by Test strip 250 NORMAL: Negat mario A [facility] Bilirubin.total [Presence] in Urine by Test strip NEG NORMAL: Negative [facility] Ketones [Presence] in Urine by Test strip NEG NORMAL: Negative [facility] Protein [Mass/volume] in Urine by Test strip NEG NORMAL: Negat mario [facility] Nitrite [Presence] in Urine by Test strip NEG NORMAL: Negative [facility] BLOOD NEG NORMAL: Negative [facility] Leukocyte esterase [Presence] in Urine by Test strip 25 ROSELIA L: Negative [facility] Urobilinogen [Mass/volume] in Urine by Test strip NOR less olivia n 1.0 mg/dL [facility] MICROSCOPIC See Below [facility] ital WBC 1 - 3 NORMAL: NONE SEEN [facility] EPITHELIAL FEW NORMAL: NONE SEEN [facility] ID Date Data Source [id number] 12/31/2019 03:35:00 PM EST [facility] ([facility] Name Value Range Interpretation Code Description Data Leona rce(s) Supporting Document(s) Comprehensive [facility]abo Laboratory test result [facility] ([facility] COMPREHENSIVE METABOLIC PANEL Sodium 140 meq/L 134-153 [facility] Potassium 4.6 meq/L 3.6-5.0 [facility] Glucose 143 mg/dL 65-110 Above high normal [facility] ([facility] Co2 29 meq/L 22-30 [facility] Chloride 104 meq/L 98-107 [facility] BUN/Creat 23 8-27 [facility] ([facility] Creatinine 0.9 mg/dL 0.7-1.5 [facility] ([facility] BUN 21 mg/dL 7-21 [facility] Albumin 4.2 g/dL 3.9-5.0 [facility] Globulin 2.2 GM/DL 2.4-3.2 Below low normal [facility] ( [facility] Total Protein 6.4 g/dL 6.3-8.2 [facility] ([facility] A/G Ratio 1.9 0.8-2.0 [facility] ([facility] Total Bili Laboratory test result 0.2-1.3 [facility] ([facility] Calcium 9.2 mg/dL 8.4-10.2 [facility] ([facility] Sgot/Ast 17 U/L 5-40 [facility] ([facility] Alkaline Phos 88 U/L 38-126 [facility] ([facility] Anion Gap 7.0 mmol/L 8.0-16.0 Below low normal [facility] ( [facility] SGPT/Alt 12 U/L 7-56 [facility] Non-Aa GFR Laboratory test result [facility] ([facility] Afr Amer GFR Laboratory test result [facility] ([facility] Male GFR Interprentation 20-49 yrs [...] >32 mL/min Normal Age 69 yrs [facility] ID Date Data Source [id number] 12/31/2019 03:35:00 PM EST [facility] ([facility] Name Value Range Interpretation Code Description Data Leona rce(s) Supporting Document(s) Troponin T.cardiac [Mass/volume] in Serum or Plasma Laborato ry test result 0.00-0.10 [facility] TROPONIN T 0.1 ng/ml Recommended as the clinical th reshold value for Troponin T. Natriuretic peptide.B prohormone N-Terminal [Mass/volu me] in Serum or Plasma 144 pg/mL 0-125 Above high normal [facility] ([facility] ID Date Data Source [id number] 12/31/2019 03:35:00 PM EST [facility] ([facility] Name Value Range Interpretation Code Description Data Leona rce(s) Supporting Document(s) CBC W/Automated Diff Laboratory test result [facility] ([facility] COMPLETE BLOOD COUNT RBC 4.15 10^6/uL 4.20-5.40 Below low normal [facility] ([facility] WBC 6.5 10^3/uL 4.2-11.0 [facility] ([facility] Hemoglobin 10.1 g/dL 12.0-16.0 Below low normal [facility] ( [facility] MCV 80.2 fL 81.0-101 Below low normal [facility] ( [facility] Hematocrit 33.3 % 37.0-47.0 Below low normal [facility] ( [facility] MCH 24.3 pg 27.0-34.0 Below low normal [facility] ( [facility] Platelets 328 10^3/uL 150-450 [facility] ([facility] MCHC 30.3 g/dL 31.0-36.0 Below low normal [facility] ( [facility] MPV 10.2 fL 7.4-10.4 [facility] ([facility] RDW 17.0 % 11.5-14.5 Above high normal [facility] ([facility] Lymph 28.0 % 25.0-40.0 [facility] ([facility] Sevier 7.4 % 3.0-8.0 [facility] ([facility] Neut 60.0 % 37.0-80.0 [facility] %NRBC 0.0 % 0.0-0.0 [...] 2.00-6.90 [facility] ([facility] #Sevier 0.48 10^3/uL 0.00-0.90 [facility] #NRBC 0.00 10^3/uL 0.00-0.00 [facility] ([facility] #Baso 0.03 10^3/uL 0.00-0.20 [facility] ([facility] #Eos 0.25 10^3/uL 0.00-0.70 [facility] ([facility] #Ig 0.01 10^3/uL 0.00-0.10 [facility] ([facility] Manual Diff Laboratory test result M EDENT ([facility] RBC Morph Laboratory test result ME DENT ([facility] ID Date Data Source [id number] 12/31/2019 03:35:00 PM EST [facility] ([facility] Name Value Range Interpretation Code Description Data Leona rce(s) Supporting Document(s) Fibrin D-dimer [Presence] in Platelet poor plasma Laboratory test result 0.27-0.50 [facility] ([facility] ID Date Data Source [id number] 12/31/2019 04:31:00 PM EST [facility] Name Value Range Interpretation Code Description Data Leona rce(s) Supporting Document(s) COMPREHENSIVE METABOLIC PANEL [facility] COMPREHENSIVE METABOLIC PANEL Sodium [Moles/volume] in Serum or Plasma 140 mEq/L 134 - 153 [facility] Potassium [Moles/volume] in Serum or Plasma 4.6 mEq/L 3.6 - 5.0 [facility] Chloride [Moles/volume] in Serum or Plasma 104 mEq/L 98 - 107 [facility] Carbon dioxide, total [Moles/volume] in Serum or Plasma 29 MEQ/L 22 - 30 [facility] Glucose [Mass/volume] in Serum or Plasma 143 MG/DL 65 - 110 H [facility] BUN 21 MG/DL 7 - 21 [facility] al Creatinine [Mass/volume] in Serum or Plasma 0.9 MG/DL 0.7 - 1.5 [facility] BUN/CREAT 23 8 - 27 [facility] Protein [Mass/volume] in Serum or Plasma 6.4 G/DL 6.3 - 8.2 [facility] Albumin [Mass/volume] in Serum or Plasma 4.2 G/DL 3.9 - 5.0 [facility] Globulin [Mass/volume] in Serum by calculation 2.2 GM/DL 2.4 - 3.2 L [facility] A/G RATIO 1.9 0.8 - 2.0 [facility] Calcium [Mass/volume] in Serum or Plasma 9.2 MG/DL 8.4 - 10.2 [facility] Bilirubin.total [Mass/volume] in Serum or Plasma <0.7 MG/DL 0.2 - 1.3 [facility] Alkaline phosphatase [Enzymatic activity/volume] in Serum or Plasma 88 U/L 38 - 126 [facility] Aspartate aminotransferase [Enzymatic activity/volume] in Serum or Plasma 17 U/L 5 - 40 [facility] Alanine aminotransferase [Enzymatic activity/volume] in Seru m or Plasma 12 U/L 7 - 56 [facility] Anion gap 3 in Serum or Plasma 7.0 mmol/L 8.0 - 16.0 L [facility] 69 [facility]60 mL/min [facility] ital AFR AMER GFR >60 [facility] Male GFR In terprentation [...] >32 mL/min Normal ID Date Data Source [id number] 12/31/2019 04:26:00 PM [facility] Name Value Range Interpretation Code Description Data Leona rce(s) Supporting Document(s) BNP 144 PG/ML 0 - 125 H [facility] al ID Date Data Source [id number] 12/31/2019 04:20:00 PM [facility] Name Value Range Interpretation Code Description Data Leona rce(s) Supporting Document(s) TROPONIN T <0.01 NG/ML 0.00 - 0.10 [facility] ospital TROPONIN T0.1 ng/ml Recommended as the c linical threshold value forTroponin T. ID Date Data Source [id number] 12/31/2019 04:13:00 PM [facility] Name Value Range Interpretation Code Description Data Leona rce(s) Supporting Document(s) CBC W/AUTOMATED DIFF [facility] COMPLETE BLOOD COUNT Leukocytes [#/volume] in Blood by Automated count 6.5 10^3/uL 4.2 - 1 1.0 [facility] Erythrocytes [#/volume] in Blood by Automated count 4.15 10^6/uL 4. 20 - 5.40 L [facility] Hemoglobin [Mass/volume] in Blood 10.1 g/dL 12.0 - 16.0 L [facility] Hematocrit [Volume Fraction] of Blood by Automated count 33.3 % 3 7.0 - 47.0 L [facility] Erythrocyte mean corpuscular volume [Entitic volume] by Auto mated count 80.2 fL 81.0 - 101 L [facility] Erythrocyte mean corpuscular hemoglobin [Entitic mass] by Automated count 24.3 pg 27.0 - 34.0 L [facility] Erythrocyte mean corpuscular hemoglobin concentration [Mass/volume] by Automated count 30.3 g/dL 31.0 - 36.0 L [facility] Erythrocyte distribution width [Ratio] by Automated count 17.0 % 11.5 - 14.5 H [facility] Platelets [#/volume] in Blood by Automated count 328 10^3/uL 150 - 45 0 [facility] Platelet mean volume [Entitic volume] in Blood by Automated count 10.2 fL 7.4 - 10.4 [facility] Neutrophils/100 leukocytes in Blood by Automated count 60.0 % 37. 0 - 80.0 [facility] Lymphocytes/100 leukocytes in Blood by Manual count 28.0 % 25.0 - 40.0 [facility] Monocytes/100 leukocytes in Blood by Automated count 7.4 % 3.0 - 8.0 [facility] Eosinophils/100 leukocytes in Blood by Automated count 3.9 % 0.0 - 7.0 [facility] Basophils/100 leukocytes in Blood by Automated count 0.5 % 0.0 - 2.5 [facility] %IG 0.2 % 0.0 - 0.0 [facility] %[facility] 0.0 % 0.0 - 0.0 [facility] al Neutrophils [#/volume] in Blood by Automated count 3.88 10^3/uL 2.00 - 6.90 [facility] Lymphocytes [#/volume] in Blood by Automated count 1.81 10^3/uL 0.60 - 3.40 [facility] Monocytes [#/volume] in Blood by Automated count 0.48 10^3/uL 0.00 - 0.90 [facility] Eosinophils [#/volume] in Blood by Automated count 0.25 10^3/uL 0.00 - 0.70 [facility] Basophils [#/volume] in Blood by Automated count 0.03 10^3/uL 0.00 - 0.20 [facility] #IG 0.01 10^3/uL 0.00 - 0.10 [facility] ospital #NRBC 0.00 10^3/uL 0.00 - 0.00 [facility] osp[facility] MANUAL DIFF NOT INDICATED [facility] RBC MORPH NOT INDICATED [facility] spital ID Date Data Source [id number] 12/31/2019 04:12:00 PM EST [facility] Name Value Range Interpretation Code Description Data Leona rce(s) Supporting Document(s) Fibrin D-dimer FEU [Mass/volume] in Platelet poor plasma <0. 27 ug/mL 0.27 - 0.50 [facility] ID Date Data Source [id number] 12/28/2019 04:34:00 PM EST [facility] ([facility] Name Value Range Interpretation Code Description Data Leona rce(s) Supporting Document(s) Jules Fernando virus capsid IgM Ab [Presence] in Serum Laborat ory test result 0.0-35.9 Normal (applies to non-numeric results) [facility] ([facility] <content>Negative <36.0</content>
<content>Equivocal 36.0 - 43.9</content>
<content>Positive >43.9</content>
<content>Performed at: RN - [facility]</content>
<content>[address] [place] [phone]</content>
<content>Electrician Technician: Virginie Acevedo MD, Phone: [phone]</content>
<content></content> ID Date Data Source [id number] 12/28/2019 04:34:00 PM EST [facility] ([facility] Name Value Range [...] Normal (applies to non- numeric results) [facility] ([facility] ) <content>Units are mL/min/1.73 m2</content>
<content></content>
<content>Chronic Kidney Disease Staging per NKF:</content>
<content></content>
<content>Stage I & II GFR >=60 Normal to Mildly Decreased</content>
<content>Stage III GFR 30- 59 Moderately Decreased</content>
<content>Stage IV GFR 15-29 Severely Decreased</content>
<content>Stage V GFR <15 Very Little GFR Left</content>
<content>ESRD GFR <15 on DOCUMENTATION DESIGNER</content>
<content></content> Sodium Level 139 meq/L 136-145 Normal (applies to non-numeric res ults) [facility] ([facility] Carbon Dioxide Level 28 meq/L 21-32 Normal (applies to non-num ana rosa results) [facility] ([facility] Chloride Level 105 meq/L 98-107 Normal (applies to non-numeric r esults) [facility] ([facility] Anion Gap 6 meq/L [...] Normal (applies to non-numeric re sults) [facility] ([facility] Albumin/Globulin Ratio 1.2 1.2-2.2 Normal (applies to non-n umeric results) [facility] ([facility] Albumin 3.6 GM/DL 3.2-5.2 Normal (applies to non-numeric resul ts) [facility] ([facility] ID Date Data Source [id number] 12/28/2019 04:34:00 PM EST [facility] ([facility] Name Value Range Interpretation Code Description Data Leona rce(s) Supporting Document(s) Hemoglobin 10.5 g/dL 12.0-15.5 Below low normal [facility] ( [facility] Red Blood Count 4.32 10 4.00-5.40 Normal (applies to non-numeric results) [facility] ([facility] White Blood Count 8.7 10 4.0-10.0 Normal (applies to non-numeri c results) [facility] ([facility] Hematocrit 35.1 % 36.0-47.0 Below low normal [facility] ( [facility] Mean Corpuscular Volume 81.3 fl 80.0-96.0 Normal ( applies to non-numeric results) [facility] ([facility] ) Mean Corpuscular HGB Conc 29.9 g/dL 32.0-36.5 Below low normal [facility] ([facility] Red Cell Distribution Width 16.7 % 11.5-14.5 Above high normal [facility] ([facility] Mean Corpuscular Hemoglobin 24.3 pg 27.0-33.0 Below low normal [facility] ([facility] Lymph % 19.4 % 24.0-44.0 Below low normal [facility] ( [facility] Neutrophils % 71.8 % 36.0-66.0 Above high normal MEDE NT ([facility] Platelet Count, Automated 344 10 150-450 Normal (applies to non-numeric results) [facility] ([facility] ) Sevier % 6.7 % 0.0-5.0 Above high normal [...] re sults) [facility] ([facility] Lymph # 1.7 10 1.5-5.0 Normal (applies to non-numeric resul ts) [facility] ([facility] Sevier # 0.6 10 0.0-0.8 Normal (applies to non-numeric resul ts) [facility] ([facility] Eos # 0.1 10 0.0-0.5 Normal (applies to non-numeric resul ts) [facility] ([facility] Baso # 0.0 10 0.0-0.2 Normal (applies to non-numeric resul ts) [facility] ([facility] ID Date Data Source [id number] 12/28/2019 02:51:00 PM EST [facility] ([facility] Name Value Range Interpretation Code Description Data Leona rce(s) Supporting Document(s) Color Urine Laboratory test result M EDENT ([facility] Appearance of Urine Laboratory test result [facility] ([facility] Specific Vivian 1.020 1.00-1.03 [facility] PH Urine 6.5 5.0-8.0 [facility] ([facility] Glucose Urine Laboratory test result [facility] ([facility] Bilirubin.total [Presence] in Urine by Test strip Laboratory test res ult [facility] ([facility] Blood Urine Laboratory test result M EDENT ([facility] Ketones Laboratory test result [facility] ([facility] Protein Urine Laboratory test result [facility] ([facility] Nitrite Laboratory test result [facility] ([facility] Urobilinogen 0.2 EU/dl 0.2-1.0 [facility] ([facility] Leukocytes Laboratory test result ME DENT ([facility] ID Date Data Source [id number] 12/28/2019 02:50:00 PM EST [facility] ([facility] Name Value Range Interpretation Code Description Data Leona rce(s) Supporting Document(s) Urine Culture, Routine Laboratory test result [facility] ([facility] SRC:URINE Bacteria identified in Urine by Culture Laboratory test result [facility] ([facility] SRC:URINE ID Date Data Source [id number] 12/28/2019 01:37:00 PM EST [facility] ([facility] Name Value Range Interpretation Code Description Data Leona rce(s) Supporting Document(s) Glucometer-[facility] 82 mg/dL 65-109 [facility] ([facility] ID Date Data Source [id number] 11/06/2019 11:41:00 AM EDT [facility] ([facility] Name Value Range Interpretation Code Description Data Leona rce(s) Supporting Document(s) A/C Ratio Laboratory test result ME DENT ([facility] Creatinine, Urine 10 mg/dL 10-300 [facility] ([facility] Alb 10 mg/L 1-30 [facility] ([facility] ID Date Data Source [id number] 11/06/2019 11:40:00 AM EDT [facility] ([facility] Name Value Range Interpretation Code Description Data Leona rce(s) Supporting Document(s) Chol 136 mg/dL 0-200 [facility] ([facility] NORMAL RANGES Age WBC [...] HCT IS 5% LESS SOURCE FOR DATA: [employer] 1800 OPERATION MANUAL( AUTOMATED BLOOD COUNTS AND [...] LDL_C 52 Calc 75-129 Below low normal [facility] ( [facility] NORMAL RANGES [...] HCT IS 5% LESS SOURCE FOR DATA: [employer] [place] DYN 1800 OPERATION MANUAL( AUTOMATED BLOOD COUNTS [...] HCT IS 5% LESS SOURCE FOR DATA: [employer] 1800 OPERATION MANUAL( AUTOMATED BLOOD COUNTS AND [...] 2-19 YEARS EXCLUSIVE. Trig 109 mg/dL 40-200 [facility] ([facility] NORMAL RANGES Age WBC RBC [...] HCT IS 5% LESS SOURCE FOR DATA: [employer] 1800 OPERATION MANUAL( AUTOMATED BLOOD COUNTS AND [...] 2-19 YEARS EXCLUSIVE. Cho/HDL Ratio 2.2 CALC [employer] ([facility] NORMAL RANGES Age WBC RBC HGB [...] HCT IS 5% LESS SOURCE FOR DATA: [employer] [place] DYN 1800 OPERATION MANUAL( AUTOMATED BLOOD COUNTS [...] 2-19 YEARS EXCLUSIVE. ID Date Data Source [id number] 11/06/2019 11:40:00 AM EDT [facility] ([facility] Name Value Range Interpretation Code Description Data Leona rce(s) Supporting Document(s) WBC 5.5 10E3/uL 4.1-10.9 [facility] ([facility] NORMAL RANGES Age [...] HCT IS 5% LESS SOURCE FOR DATA: [employer] 1800 OPERATION MANUAL( AUTOMATED BLOOD COUNTS AND [...] 2-19 YEARS EXCLUSIVE. RBC 4.23 10E6/uL 4.20-6.30 [facility] ([facility] NORMAL RANGES [...] HCT IS 5% LESS SOURCE FOR DATA: [employer] 1800 OPERATION MANUAL( AUTOMATED BLOOD COUNTS AND [...] HCT IS 5% LESS SOURCE FOR DATA: [employer] 1800 OPERATION MANUAL( AUTOMATED BLOOD COUNTS AND [...] HCT IS 5% LESS SOURCE FOR DATA: [employer] 1800 OPERATION MANUAL( AUTOMATED BLOOD COUNTS AND [...] 2-19 YEARS EXCLUSIVE. MCV 83.2 fL 80.0-97.0 [facility] ([facility] NORMAL [...] HCT IS 5% LESS SOURCE FOR DATA: [employer] [place] DYN 1800 OPERATION MANUAL( AUTOMATED BLOOD COUNTS [...] HCT IS 5% LESS SOURCE FOR DATA: [employer] 1800 OPERATION MANUAL( AUTOMATED BLOOD COUNTS AND [...] HCT IS 5% LESS SOURCE FOR DATA: [employer] 1800 OPERATION MANUAL( AUTOMATED BLOOD COUNTS AND [...] 2-19 YEARS EXCLUSIVE. PLT 297 10E3/uL 140-440 [facility] ([facility] NORMAL RANGES Age WBC [...] HCT IS 5% LESS SOURCE FOR DATA: [employer] [place] DYN 1800 OPERATION MANUAL( AUTOMATED BLOOD COUNTS [...] 2-19 YEARS EXCLUSIVE. Lym% 35.5 % 10.0-58.5 [facility] ([facility] NORMAL [...] HCT IS 5% LESS SOURCE FOR DATA: [employer] 1800 OPERATION MANUAL( AUTOMATED BLOOD COUNTS AND [...] RDW-CV 15.6 % 11.5-14.[address] [facility] ([facility] NORMAL RANGES Age WBC RBC [...] HCT IS 5% LESS SOURCE FOR DATA: [employer] 1800 OPERATION MANUAL( AUTOMATED BLOOD COUNTS AND [...] 2-19 YEARS EXCLUSIVE. MXD% 7.7 % 0.1-24.0 [facility] NORMAL RANGES [...] HCT IS 5% LESS SOURCE FOR DATA: [employer] 1800 OPERATION MANUAL( AUTOMATED BLOOD COUNTS AND [...] 2-19 YEARS EXCLUSIVE. Lym# 2.0 10E3/uL 0.6-4.1 [facility] ([facility] NORMAL RANGES Age WBC [...] HCT IS 5% LESS SOURCE FOR DATA: [employer] 1800 OPERATION MANUAL( AUTOMATED BLOOD COUNTS AND [...] 2-19 YEARS EXCLUSIVE. Neut% 56.8 % 37.0-92.0 [facility] ([facility] NORMAL RANGES [...] HCT IS 5% LESS SOURCE FOR DATA: [employer] 1800 OPERATION MANUAL( AUTOMATED BLOOD COUNTS AND [...] 2-19 YEARS EXCLUSIVE. MPV 11.2 fL 9.0-13.0 [facility] ([facility] NORMAL [...] HCT IS 5% LESS SOURCE FOR DATA: [employer] [place] DYN 1800 OPERATION MANUAL( AUTOMATED BLOOD COUNTS [...] 2-19 YEARS EXCLUSIVE. MXD# 0.4 10E3/uL 0.0-1.8 [facility] ([facility] NORMAL RANGES Age WBC [...] HCT IS 5% LESS SOURCE FOR DATA: [employer] 1800 OPERATION MANUAL( AUTOMATED BLOOD COUNTS AND [...] 2-19 YEARS EXCLUSIVE. Neut# 3.1 % 2.0-7.8 [facility] ([facility] NORMAL RANGES Age WBC RBC [...] HCT IS 5% LESS SOURCE FOR DATA: [employer] 1800 OPERATION MANUAL( AUTOMATED BLOOD COUNTS AND [...] 2-19 YEARS EXCLUSIVE. ID Date Data Source [id number] 11/06/2019 11:40:00 AM EDT [facility] ([facility] Name Value Range Interpretation Code Description Data Leona rce(s) Supporting Document(s) BUN 18 mg/dL 8-23 [facility] ([facility] NORMAL RANGES [...] HCT IS 5% LESS SOURCE FOR DATA: [employer] 1800 OPERATION MANUAL( AUTOMATED BLOOD COUNTS AND [...] HCT IS 5% LESS SOURCE FOR DATA: [employer] 1800 OPERATION MANUAL( AUTOMATED BLOOD COUNTS AND [...] HCT IS 5% LESS SOURCE FOR DATA: [employer] [place] DYN 1800 OPERATION MANUAL( AUTOMATED BLOOD COUNTS [...] 2-19 YEARS EXCLUSIVE. BUN/Creatinine Ratio 21.[address] [facility] ([facility] NORMAL RANGES Age WBC [...] HCT IS 5% LESS SOURCE FOR DATA: [employer] 1800 OPERATION MANUAL( AUTOMATED BLOOD COUNTS AND [...] HCT IS 5% LESS SOURCE FOR DATA: [employer] 1800 OPERATION MANUAL( AUTOMATED BLOOD COUNTS AND [...] 2-19 YEARS EXCLUSIVE. Na 136 mmol/L 136-145 [facility] ([facility] NORMAL RANGES Age WBC RBC [...] HCT IS 5% LESS SOURCE FOR DATA: [employer] 1800 OPERATION MANUAL( AUTOMATED BLOOD COUNTS AND [...] HCT IS 5% LESS SOURCE FOR DATA: [employer] 1800 OPERATION MANUAL( AUTOMATED BLOOD COUNTS AND [...] 2-19 YEARS EXCLUSIVE. CA 9.5 mg/dL 8.6-10.2 [facility] ([facility] NORMAL [...] HCT IS 5% LESS SOURCE FOR DATA: [employer] 1800 OPERATION MANUAL( AUTOMATED BLOOD COUNTS AND [...] 2-19 YEARS EXCLUSIVE. Co2 25.3 mmol/L 22.0-29.0 [facility] NORMAL RANGES Age WBC [...] HCT IS 5% LESS SOURCE FOR DATA: [employer] 1800 OPERATION MANUAL( AUTOMATED BLOOD COUNTS AND [...] HCT IS 5% LESS SOURCE FOR DATA: [employer] [place] DYN 1800 OPERATION MANUAL( AUTOMATED BLOOD COUNTS [...] TP 6.1 g/dL 6.6-8.[address] [facility] ( [facility] NORMAL RANGES Age [...] HCT IS 5% LESS SOURCE FOR DATA: [employer] 1800 OPERATION MANUAL( AUTOMATED BLOOD COUNTS AND [...] 2-19 YEARS EXCLUSIVE. Alb 4.2 g/dL 3.4-4.8 [facility] NORMAL RANGES [...] HCT IS 5% LESS SOURCE FOR DATA: [employer] 1800 OPERATION MANUAL( AUTOMATED BLOOD COUNTS AND [...] HCT IS 5% LESS SOURCE FOR DATA: [employer] 1800 OPERATION MANUAL( AUTOMATED BLOOD COUNTS AND [...] 2-19 YEARS EXCLUSIVE. Alp 95.1 U/L 35-129 [facility] ([facility] NORMAL RANGES Age WBC RBC [...] HCT IS 5% LESS SOURCE FOR DATA: [employer] 1800 OPERATION MANUAL( AUTOMATED BLOOD COUNTS AND [...] HCT IS 5% LESS SOURCE FOR DATA: [employer] 1800 OPERATION MANUAL( AUTOMATED BLOOD COUNTS AND [...] HCT IS 5% LESS SOURCE FOR DATA: [employer] 1800 OPERATION MANUAL( AUTOMATED BLOOD COUNTS AND [...] YEARS EXCLUSIVE. Ast (Sgot) 15 U/L 0-40 [facility] ([facility] NORMAL RANGES Age WBC [...] HCT IS 5% LESS SOURCE FOR DATA: [employer] 1800 OPERATION MANUAL( AUTOMATED BLOOD COUNTS AND [...] 2-19 YEARS EXCLUSIVE. Anion Gap 18 mmol/L [facility] ([facility] NORMAL [...] HCT IS 5% LESS SOURCE FOR DATA: [employer] 1800 OPERATION MANUAL( AUTOMATED BLOOD COUNTS AND [...] HCT IS 5% LESS SOURCE FOR DATA: [employer] 1800 OPERATION MANUAL( AUTOMATED BLOOD COUNTS AND [...] HCT IS 5% LESS SOURCE FOR DATA: [employer] 1800 OPERATION MANUAL( AUTOMATED BLOOD COUNTS AND [...] INDIVIDUALA AGED 2-19 YEARS EXCLUSIVE. eGFR Non-Afr. Maldivian 65 # [facility] ([facility] [...] HCT IS 5% LESS SOURCE FOR DATA: [employer] 1800 OPERATION MANUAL( AUTOMATED BLOOD COUNTS AND [...] 2-19 YEARS EXCLUSIVE. ID Date Data Source [id number] 11/06/2019 11:40:00 AM EDT [facility] ([facility] Name Value Range Interpretation Code Description Data Leona rce(s) Supporting Document(s) Hemoglobin A1c/Hemoglobin.total in Blood 8.0 % 4.8-5.6 Above high normal [facility] ([facility] <content>Prediabetes: 5.7 - 6.4</content >
<content>Diabetes: >6.4</content>
<content>Glycemic control for adults with diabetes: <7.0</content>
<content></content> ID Date Data Source [id number] 11/06/2019 11:40:00 AM EDT [facility] ([facility] Name Value Range Interpretation Code Description Data Leona rce(s) Supporting Document(s) Hemoglobin A1c/Hemoglobin.total in Blood Laboratory test result [facility] ([facility] Procedure Social History Code Duration Value Status Description Data Source(s ) Smoking 10/10/2020 12:00:00 AM EDT Patient is a former smoker completed Patient is a former smoker [facility] ([facility] ) Smoking 09/03/2020 12:00:00 AM EDT Patient is a former smoker completed Patient is a former smoker [facility] ([facility]) Vital Signs ID Date Data Source UNK Name Value Range Interpretation Code Description Data Source(s) Systolic blood pressure 126 mm[Hg] 126 mm[Hg] M [facility] ([facility] Diastolic blood pressure 70 mm[Hg] 70 mm[Hg] [facility] ([facility] Body temperature 97.4 [degF] 97.4 [degF] [facility] ([facility] Oxygen saturation in Arterial blood by Pulse oximetry 97 % 97 % [facility] ([facility] [facility] Heart rate 70 /min 70 /min MEDENT ([facility] Respiratory rate 14 /min 14 /min MEDENT ( [facility] Body height 60.5 [in_i] 60.5 [in_i] MEDENT ([facility] 5'0.50" Body weight 170.00 [lb_av] 170.00 [lb_av] MEDEN T ([facility] [place] body weight 100 [lb_av] 100 [lb_av] MEDEN T ([facility] Body mass index (BMI) [Ratio] 32.7 kg/m2 32.7 k g/m2 MEDENT ([facility] [place] body weight 100 [lb_av] 100 [lb_av] MEDEN T ([facility]) Systolic blood pressure 148 mm[Hg] 148 mm[Hg] M EDENT ([facility]) Diastolic blood pressure 86 mm[Hg] 86 mm[Hg] MEDENT ([facility]) Body temperature 98.4 [degF] 98.4 [degF] MEDENT ([facility]) Body height 59 [in_i] 59 [in_i] MEDENT ([facility]) 4'11" Body weight 77.[address] [facility] ([facility]) Body surface area Derived from formula 1.[address] [facility] ([facility]) Body weight 170.25 [lb_av] 170.25 [lb_av] MEDEN T ([facility]) Body mass index (BMI) [Ratio] 34.4 kg/m2 34.4 k g/m2 [facility] ([facility]) Systolic blood pressure 140 mm[Hg] 140 mm[Hg] M EDENT ([facility] Diastolic blood pressure 64 mm[Hg] 64 mm[Hg] MEDENT ([facility] Body temperature 97.0 [degF] 97.0 [degF] MEDENT ([facility] Heart rate 72 /min 72 /min MED[facility] ([facility] Respiratory rate 18 /min 18 /min MED[facility] ( [facility] Body height 60.5 [in_i] 60.5 [in_i] MEDENT ([facility] 5'0.50" Body weight 172.00 [lb_av] 172.00 [lb_av] MEDEN T ([facility] [place] body weight 100 [lb_av] 100 [lb_av] MEDEN T ([facility] Body mass index (BMI) [Ratio] 33.0 kg/m2 33.0 k g/m2 MEDENT ([facility] Oxygen saturation in Arterial blood by Pulse oximetry 98 % 98 % MEDENT ([facility] [place] body weight 100 [lb_av] 100 [lb_av] MEDEN T ([facility] Body mass index (BMI) [Ratio] 33.2 kg/m2 33.2 k g/m2 MEDENT ([facility] Respiratory rate 18 /min 18 /min MEDENT ( [facility] Systolic blood pressure 124 mm[Hg] 124 mm[Hg] M EDENT ([facility] Diastolic blood pressure 84 mm[Hg] 84 mm[Hg] MEDENT ([facility] Body temperature 98.4 [degF] 98.4 [degF] MEDENT ([facility] Heart rate 78 /min 78 /min MED[facility] ([facility] Body height 60.5 [in_i] 60.5 [in_i] MEDENT ([facility] 5'0.50" Body weight 173.00 [lb_av] 173.00 [lb_av] MEDEN T ([facility] Oxygen saturation in Arterial blood by Pulse oximetry 97 % 97 % MEDENT ([facility] Body temperature 97.4 [degF] 97.4 [degF] MEDENT ([facility], ) Body height 60.5 [in_i] 60.5 [in_i] MEDENT ([facility] 5'0.50" Body weight 176.00 [lb_av] 176.00 [lb_av] MEDEN T ([facility] [place] body weight 100 [lb_av] 100 [lb_av] MEDEN T ([facility] Body mass index (BMI) [Ratio] 33.8 kg/m2 33.8 k g/m2 MEDENT ([facility] Oxygen saturation in Arterial blood by Pulse oximetry 99 % 99 % MEDENT ([facility] Systolic blood pressure 122 mm[Hg] 122 mm[Hg] M EDENT ([facility] Diastolic blood pressure 74 mm[Hg] 74 mm[Hg] MEDENT ([facility] Body temperature 98.0 [degF] 98.0 [degF] MEDENT ([facility] Heart rate 90 /min 90 /min MED[facility] ([facility] Respiratory rate 18 /min 18 /min MED[facility] ( [facility] Systolic blood pressure 112 mm[Hg] 112 mm[Hg] M EDENT ([facility] Diastolic blood pressure 72 mm[Hg] 72 mm[Hg] MEDENT ([facility] Body temperature 97.5 [degF] 97.5 [degF] MEDENT ([facility] Heart rate 78 /min 78 /min MED[facility] ([facility] Respiratory rate 18 /min 18 /min MED[facility] ( [facility] Body height 60.5 [in_i] 60.5 [in_i] MEDENT ([facility] 5'0.50" Body weight 182.00 [lb_av] 182.00 [lb_av] MEDEN T ([facility] [place] body weight 100 [lb_av] 100 [lb_av] MEDEN T ([facility] Body mass index (BMI) [Ratio] 35.0 kg/m2 35.0 k g/m2 MEDENT ([facility] Oxygen saturation in Arterial blood by Pulse oximetry 97 % 97 % MED[facility] ([facility] Body surface area Derived from formula 1.77 m2 1.77 m2 [facility], ) Body weight 82.[address] [facility] ([facility], ) Systolic blood pressure 155 mm[Hg] 155 mm[Hg] M EDENT ([facility], ) Diastolic blood pressure 78 mm[Hg] 78 mm[Hg] MEDENT ([facility], ) Heart rate 73 /min 73 /min MEDENT ([facility], ) Body height 59 [in_i] 59 [in_i] MEDENT ([facility], ) 4'11" Body weight 181.00 [lb_av] 181.00 [lb_av] MEDEN T ([facility], ) Body mass index (BMI) [Ratio] 36.6 kg/m2 36.6 k g/m2 MEDENT ([facility], ) [place] body weight 100 [lb_av] 100 [lb_av] MEDEN T ([facility], ) Systolic blood pressure 121 mm[Hg] 121 mm[Hg] M EDENT ([facility] ) Diastolic blood pressure 64 mm[Hg] 64 mm[Hg] MEDENT ([facility] ) Heart rate 70 /min 70 /min [facility] ([facility] ) Body height 59.1 [in_i] 59.1 [in_i] MED[facility] ([facility] ) 4'11.10" Body weight 183.19 [lb_av] 183.19 [lb_av] MEDEN T ([facility] ) Body mass index (BMI) [Ratio] 36.9 kg/m2 36.9 k g/m2 MED[facility] ([facility] ) Oxygen saturation in Arterial blood by Pulse oximetry 98 % 98 % MEDENT ([facility] ) Systolic blood pressure 139 mm[Hg] 139 mm[Hg] M EDENT ([facility]) Diastolic blood pressure 82 mm[Hg] 82 mm[Hg] MEDENT ([facility], [facility]) Heart rate 65 /min 65 /min MEDENT ([facility], [facility]) Respiratory rate 13 /min 13 /min MEDENT ( [facility], [facility]) Oxygen saturation in Arterial blood by Pulse oximetry 97 % 97 % MEDENT ([facility], [facility]) Body temperature 98.0 [degF] 98.0 [degF] MEDENT ([facility], [facility]) Body weight 185.00 [lb_av] 185.00 [lb_av] MEDEN T ([facility], [facility]) Body height 59 [in_i] 59 [in_i] MEDENT ([facility], [facility]) 4'11" Body mass index (BMI) [Ratio] 37.4 kg/m2 37.4 k g/m2 MEDENT ([facility], [facility]) Systolic blood pressure 114 mm[Hg] 114 mm[Hg] M EDENT ([facility] Diastolic blood pressure 70 mm[Hg] 70 mm[Hg] [facility] ([facility] Body temperature 98.1 [degF] 98.1 [degF] MED[facility] ([facility] Body height 60.5 [in_i] 60.5 [in_i] MEDENT ([facility] 5'0.50" Heart rate 60 /min 60 /min MED[facility] ([facility] Body weight 185.00 [lb_av] 185.00 [lb_av] MEDEN T ([facility] Respiratory rate 14 /min 14 /min MED[facility] ( [facility] [place] body weight 100 [lb_av] 100 [lb_av] MEDEN T ([facility] Body mass index (BMI) [Ratio] 35.5 kg/m2 35.5 k g/m2 MED[facility] ([facility] Oxygen saturation in Arterial blood by Pulse oximetry 97 % 97 % MED[facility] ([facility] Body height 59.1 [in_i] 59.1 [in_i] MEDENT ([facility] ) 4'11.10" Systolic blood pressure 114 mm[Hg] 114 mm[Hg] M EDENT ([facility] ) Body weight 185.25 [lb_av] 185.25 [lb_av] MEDEN T ([facility] ) Body mass index (BMI) [Ratio] 37.3 kg/m2 37.3 k g/m2 MED[facility] ([facility] ) Oxygen saturation in Arterial blood by Pulse oximetry 98 % 98 % MEDENT ([facility] ) Diastolic blood pressure 76 mm[Hg] 76 mm[Hg] MED[facility] ([facility] ) Heart rate 76 /min 76 /min MEDENT ([facility]) Body temperature 97.1 [degF] 97.1 [degF] MEDENT ([facility]) Body height 59 [in_i] 59 [in_i] MEDENT ([facility]) 4'11" Body weight 188.00 [lb_av] 188.00 [lb_av] MEDEN T ([facility]) Body mass index (BMI) [Ratio] 38.0 kg/m2 38.0 k g/m2 [facility] ([facility]) [place] body weight 100 [lb_av] 100 [lb_av] MEDEN T ([facility]) Body weight 85.[address] [facility] ([facility]) Body surface area Derived from formula 1.[address] [facility] ([facility]) Systolic blood pressure 149 mm[Hg] 149 mm[Hg] M EDENT ([facility]) Diastolic blood pressure 78 mm[Hg] 78 mm[Hg] [facility] Body height 59 [in_i] 59 [in_i] [facility] ([facility]) 4'11" Body weight 188.00 [lb_av] 188.00 [lb_av] MEDEN T ([facility]) Body mass index (BMI) [Ratio] 38.0 kg/m2 38.0 k g/m2 [facility] ([facility]) [place] body weight 100 [lb_av] 100 [lb_av] MEDEN T ([facility]) Body weight 85.[address] [facility] ([facility]) Body surface area Derived from formula 1.[address] [facility] ([facility]) Body mass index (BMI) [Ratio] 37.4 kg/m2 37.4 k g/m2 [facility] ([facility]) Systolic blood pressure 149 mm[Hg] 149 mm[Hg] M EDENT ([facility]) Diastolic blood pressure 80 mm[Hg] 80 mm[Hg] [facility] ([facility]) Heart rate 73 /min 73 /min [facility] Body height 59 [in_i] 59 [in_i] MEDENT ([facility]) 4'11" Body weight 185.38 [lb_av] 185.38 [lb_av] MEDEN T ([facility]) [place] body weight 100 [lb_av] 100 [lb_av] MEDEN T ([facility]) Body weight 84.086 kg 84.086 kg [facility] Body surface area Derived from formula 1.[address] [facility] ([facility]) Diastolic blood pressure 81 mm[Hg] 81 mm[Hg] [facility] ([facility]) Body height 59 [in_i] 59 [in_i] [facility] ([facility]) 4'11" Body weight 184.00 [lb_av] 184.00 [lb_av] MEDEN T ([facility]) Body mass index (BMI) [Ratio] 37.2 kg/m2 37.2 k g/m2 [facility] ([facility]) [place] body weight 100 [lb_av] 100 [lb_av] MEDEN T ([facility]) Body weight 83.[address] [facility] ([facility]) Body surface area Derived from formula 1.[address] [facility] ([facility]) Systolic blood pressure 116 mm[Hg] 116 mm[Hg] [facility] Systolic blood pressure 119 mm[Hg] 119 mm[Hg] [facility] Diastolic blood pressure 57 mm[Hg] 57 mm[Hg] [facility] ([facility]) Heart rate 64 /min 64 /min [facility] ([facility]) Body height 59 [in_i] 59 [in_i] [facility] ([facility]) 4'11" Body weight 180.38 [lb_av] 180.38 [lb_av] MEDEN T ([facility]) Body mass index (BMI) [Ratio] 36.4 kg/m2 36.4 k g/m2 [facility] ([facility]) [place] body weight 100 [lb_av] 100 [lb_av] MEDEN T ([facility]) Body weight 81.[address] [facility] ([facility]) Body surface area Derived from formula 1.[address] [facility] ([facility]) Systolic blood pressure 136 mm[Hg] 136 mm[Hg] M EDENT ([facility]) Diastolic blood pressure 74 mm[Hg] 74 mm[Hg] [facility] ([facility]) Body height 59 [in_i] 59 [in_i] [facility] ([facility]) 4'11" Body weight 185.00 [lb_av] 185.00 [lb_av] MEDEN T ([facility]) Body mass index (BMI) [Ratio] 37.4 kg/m2 37.4 k g/m2 [facility] ([facility]) [place] body weight 100 [lb_av] 100 [lb_av] MEDEN T ([facility]) Body weight 83.[address] [facility] ([facility]) Body surface area Derived from formula 1.[address] [facility] ([facility]) Body temperature 96.9 [degF] 96.9 [degF] MEDENT ([facility]) Body temperature 96.8 [degF] 96.8 [degF] [facility] ([facility]) Body temperature 97.2 [degF] 97.2 [degF] [facility] ([facility]) Body height 60 [in_i] 60 [in_i] [facility] ([facility]) 5'0" Body weight 186.50 [lb_av] 186.50 [lb_av] MEDEN T ([facility]) Body mass index (BMI) [Ratio] 36.4 kg/m2 36.4 k g/m2 [facility] ([facility]) Systolic blood pressure 108 mm[Hg] 108 mm[Hg] M EDENT ([facility]) Diastolic blood pressure 56 mm[Hg] 56 mm[Hg] [facility], [facility]) Heart rate 75 /min 75 /min [facility], [facility]) Respiratory rate 18 /min 18 /min [facility] ( [place] [facility], [facility]) Oxygen saturation in Arterial blood by Pulse oximetry 96 % 96 % [facility] ([facility], [facility]) Body temperature 97.0 [degF] 97.0 [degF] [facility] ([facility], [facility]) Body weight 185.00 [lb_av] 185.00 [lb_av] MEDEN T ([facility], [facility]) Systolic blood pressure 128 mm[Hg] 128 mm[Hg] [facility]) Diastolic blood pressure 66 mm[Hg] 66 mm[Hg] [facility] ([facility]) Body height 59 [in_i] 59 [in_i] [facility] ([facility]) 4'11" Body weight 191.00 [lb_av] 191.00 [lb_av] MEDEN T ([facility]) Body mass index (BMI) [Ratio] 38.6 kg/m2 38.6 k g/m2 [facility] ([facility]) [place] body weight 100 [lb_av] 100 [lb_av] [facility] Body weight 86.[address] [facility] ([facility]) Body surface area Derived from formula 1.[address] [facility] ([facility]) Systolic blood pressure 124 mm[Hg] 124 mm[Hg] [facility] Body height 60.5 [in_i] 60.5 [in_i] [facility] 5'0.50" Body weight 188.00 [lb_av] 188.00 [lb_av] MEDEN T ([facility] [place] body weight 100 [lb_av] 100 [lb_av] MEDEN T ([facility] Body mass index (BMI) [Ratio] 36.1 kg/m2 36.1 k g/m2 [facility] ([facility] Oxygen saturation in Arterial blood by Pulse oximetry 97 % 97 % [facility] ([facility] Diastolic blood pressure 70 mm[Hg] 70 mm[Hg] [facility] ([facility] Body temperature 98.5 [degF] 98.5 [degF] [facility] ([facility] Heart rate 72 /min 72 /min [facility] ([facility] Respiratory rate 16 /min 16 /min [facility] ( [facility] Body mass index (BMI) [Ratio] 36.7 kg/m2 36.7 k g/m2 [facility] ([facility] Body height 60.5 [in_i] 60.5 [in_i] [facility] ([facility] 5'0.50" Body weight 191.00 [lb_av] 191.00 [lb_av] MEDEN T ([facility] Systolic blood pressure 122 mm[Hg] 122 mm[Hg] M EDENT ([facility] Diastolic blood pressure 66 mm[Hg] 66 mm[Hg] [facility] ([facility] Body temperature 98.2 [degF] 98.2 [degF] [facility] ([facility] Heart rate 70 /min 70 /min [facility] ([facility] Respiratory rate 14 /min 14 /min [facility] ( [facility] [place] body weight 100 [lb_av] 100 [lb_av] MEDEN T ([facility] Oxygen saturation in Arterial blood by Pulse oximetry 97 % 97 % [facility] ([facility]
[2020-12-28] MEDS ORDERED: ACETAMINOPHEN 325 MG TAB PO ONE (16:35)
--- NOTE | 2020-12-28 17:00 | REP ---
INDICATION: pain, left buttock. COMPARISON: Supine abdomen 09/18/2020 TECHNIQUE: AP FINDINGS: EKG lines overlie the left SI joint and obscure its upper 2/3. Sacral ala and foramina are intact. There is facet arthropathy at L5-S1. Minor SI joint degenerative change noted. Iliac wings grossly intact acetabulae preserved. Hip joint space is narrowed centrally on the right compared to the left. Acetabulum shows some sclerosis superiorly. Pubic rami and symphysis pubis intact. The hips show no definite fracture or AVN. IMPRESSION: 1. 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 <Electronically signed by Nick Coombs > 12/28/20 [id number]
--- NOTE | 2020-12-28 17:03 | REP ---
INDICATION: pain, left buttock/hip. COMPARISON: AP pelvis 12/28/2020, hip 11/16/2017. TECHNIQUE: Single frogleg hip view viewed in conjunction with the AP pelvis this date. FINDINGS: The study shows tiny acetabular roof spur which has developed since the previous study 3 years ago. No hip joint space narrowing. Curvilinear ossific density at the greater trochanter near tendinous insertion noted. No evidence of AVN or fracture the femoral head or neck. The acetabulum pubic rami symphysis pubis and left SI joint are without acute bony finding. 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 <Electronically signed by Nick Coombs > 12/28/20 170
--- NOTE | 2020-12-28 17:06 | REP ---
INDICATION: pain, left buttock/hip. COMPARISON: Left hip 12/28/2020, 11/16/2017 TECHNIQUE: Three views to encompass the AP and lateral projections of the femur when viewed in conjunction with today's hip series. 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 Intertrochanteric region femoral shaft and the distal femoral condyles and patella were unremarkable no definite joint effusion. Minor spurring of the tibial spines. Proximal tibia and fibula at the knee joint were unremarkable IMPRESSION: 1. Minimal degenerative changes at the hip and knee without fracture, avulsion, focal bone lesion or abnormal soft tissue calcification about the femur. <Electronically signed by Nick Coombs > 12/28/20 1985
[2020-12-28 17:18] LABS: BASO % 0.4 % (0.0-1.0); EOS # 0.1 10^3/uL (0.0-0.5); HEMATOCRIT 40.9 % (36.0-47.0); HEMOGLOBIN 12.6 g/dl (12.0-15.5); LYMPH # 1.9 10^3/uL (1.5-5.0); MEAN CORPUSCULAR HEMOGLOBIN 26.6 pg (27.0-33.0); MEAN CORPUSCULAR HGB CONC 30.8 g/dl (32.0-36.5); MEAN CORPUSCULAR VOLUME 86.5 fl (80.0-96.0); MONO # 0.4 10^3/uL (0.0-0.8); MONO % 6.3 % (2.0-8.0); NEUTROPHILS # 4.4 10^3/uL (1.5-8.5); NEUTROPHILS % 64.2 % (36.0-66.0); PLATELET COUNT, AUTOMATED 335 10^3/uL (150-450); RED BLOOD COUNT 4.73 10^6/uL (4.00-5.40); WHITE BLOOD COUNT 6.9 10^3/uL (4.0-10.0)
[2020-12-28] MEDS ORDERED: LEVE1INJ5 SC (17:18)
[2020-12-28] MEDS ORDERED: PANT40TA29 (17:18)
[2020-12-28] MEDS ORDERED: INDA125TA (17:18)
[2020-12-28] MEDS ORDERED: LOVA40TA (17:18)
[2020-12-28] MEDS ORDERED: DULO1CAP6 (17:18)
[2020-12-28] MEDS ORDERED: ASPI81TA26 (17:18)
[2020-12-28] MEDS ORDERED: DICY20TA11 (17:18)
[2020-12-28] MEDS ORDERED: MAGN400T33 (17:18)
[2020-12-28] MEDS ORDERED: AMLO1TAB24 (17:18)
[2020-12-28] MEDS ORDERED: LISI-898 (17:18)
[2020-12-28] MEDS ORDERED: POTA10CA32 (17:18)
[2020-12-28] MEDS ORDERED: DOK1CAP4 (17:18)
--- OUTSIDE RECORDS SUMMARY | 2020-12-28 17:28 | CCD ---
Author Author [facility] Organization [facility] Address Unknown Phone Unavailable Care Team Providers Care Dial Painter Name Role Phone Ramon KINGSTON MD Unavailable [...] Unavailable VASHTI H JAMISON ZAPATA Unavailable Unavailable VSAHTI H JAMISON ZAPATA Unavailable Unavailable VASHTI H JAMISON ZAPATA Unavailable Unavailable VASHTI H JAMISON ZAPATA Unavailable Unavailable VASHTI H JAMISON ZAPATA Unavailable Unavailable VASHTI H JAMISON ZAPATA Unavailable Unavailable Ramon KINGSTON MD Unavailable Unavailable VASHTI H JAMISON ZAPATA Unavailable Unavailable VASHTI H JAMISON ZAPATA Unavailable Unavailable VASHTI H JAMISON ZAPATA Unavailable Unavailable VASHTI H AJMISON ZAPATA Unavailable Unavailable Ramon KINGSTON MD Unavailable Unavailable Ramon KINGSTON MD Unavailable Unavailable Ramon KINGSTON MD Unavailable Unavailable Ramon KIGNSTON MD Unavailable Unavailable Ramon KINGSTON MD Unavailable [...] Unavailable Unavailable Ady Ramsey MD Unavailable Unavailable Hunt, M Barratt PA [...] Unavailable GHULAM, M DEBBY PA Unavailable Unavailable Saul SANTILLAN MD Unavailable Unavailable Saul SANTILLAN MD Unavailable Unavailable BARLICHAUGASaul MD Unavailable Unavailable BARAYUGASaul MD Unavailable Unavailable BARAYUGASaul MD Unavailable Unavailable BARLICHAUGASaul MD Unavailable Unavailable BARLICHAUGASaul MD Unavailable Unavailable BARLICHAUGASaul MD Unavailable Unavailable JONGUGASaul MD Unavailable Unavailable JONGUGASaul MD Unavailable Unavailable JONGUGASaul MD Unavailable Unavailable BARLICHAUGASaul MD Unavailable Unavailable JONGUGASaul MD Unavailable Unavailable BARLICHAUGASaul MD Unavailable Unavailable BARLICHAUGASaul MD Unavailable Unavailable BARLICHAUGASaul MD Unavailable Unavailable BARLICHAUGA, Saul ROB MD Unavailable Unavailable BARAYUGASaul MD Unavailable Unavailable JONGUGASaul MD Unavailable Unavailable JONGUGASaul MD Unavailable Unavailable JONGUGASaul MD Unavailable Unavailable JONGUGASaul MD Unavailable Unavailable JONGUGASaul MD Unavailable Unavailable JONGUGASaul MD Unavailable Unavailable BARLICHAUGASaul MD Unavailable Unavailable JONGUGASaul MD Unavailable Unavailable BARAYUGASaul MD Unavailable Unavailable BARLICHAUGASaul MD Unavailable Unavailable BARLICHAUGASaul MD Unavailable Unavailable JONGUGASaul MD Unavailable Unavailable BARLICHAUGASaul MD Unavailable Unavailable BARLICHAUGASaul MD Unavailable Unavailable BARLICHAUGASaul MD Unavailable Unavailable BARAYUGASaul MD Unavailable Unavailable BARAYUGASaul MD Unavailable Unavailable LETTIERE, A JAIME PA [...] JAIME PA Unavailable Unavailable EVER, B RM CEMENT TESTER ASSISTANT Unavailable Unavailable EVER, B RM CEMENT TESTER ASSISTANT Unavailable Unavailable EVER, B RM CEMENT TESTER ASSISTANT Unavailable Unavailable EVER, B RM CEMENT TESTER ASSISTANT Unavailable Unavailable EVER, B RM CEMENT TESTER ASSISTANT Unavailable Unavailable EVER, B RM CEMENT TESTER ASSISTANT Unavailable Unavailable EVER, B RM CEMENT TESTER ASSISTANT Unavailable Unavailable EVER, B RM CEMENT TESTER ASSISTANT Unavailable Unavailable EVER, B RM CEMENT TESTER ASSISTANT Unavailable Unavailable EVER, B RM CEMENT TESTER ASSISTANT Unavailable Unavailable EVER, B RM CEMENT TESTER ASSISTANT Unavailable Unavailable EVER, B RM CEMENT TESTER ASSISTANT Unavailable Unavailable EVER, B RM CEMENT TESTER ASSISTANT Unavailable Unavailable EVER, B RM CEMENT TESTER ASSISTANT Unavailable Unavailable EVER, B RM CEMENT TESTER ASSISTANT Unavailable Unavailable EVER, B RM CEMENT TESTER ASSISTANT Unavailable Unavailable EVER, B RM CEMENT TESTER ASSISTANT Unavailable Unavailable EVER, B RM CEMENT TESTER ASSISTANT Unavailable Unavailable EVER, B RM CEMENT TESTER ASSISTANT Unavailable Unavailable EVER, B RM CEMENT TESTER ASSISTANT Unavailable Unavailable EVER, B RM CEMENT TESTER ASSISTANT Unavailable Unavailable EVER, B RM CEMENT TESTER ASSISTANT Unavailable Unavailable EVER, B RM CEMENT TESTER ASSISTANT Unavailable Unavailable EVER, B RM CEMENT TESTER ASSISTANT Unavailable Unavailable EVER, B RM CEMENT TESTER ASSISTANT Unavailable Unavailable EVER, B RM CEMENT TESTER ASSISTANT Unavailable Unavailable EVER, B RM CEMENT TESTER ASSISTANT Unavailable Unavailable EVER, B RM CEMENT TESTER ASSISTANT Unavailable Unavailable EVER, B RM CEMENT TESTER ASSISTANT Unavailable Unavailable EVER, B RM CEMENT TESTER ASSISTANT Unavailable Unavailable EVER, B RM CEMENT TESTER ASSISTANT Unavailable Unavailable EEVR, B RM CEMENT TESTER ASSISTANT Unavailable Unavailable EVER, B RM CEMENT TESTER ASSISTANT Unavailable Unavailable EVER, B RM CEMENT TESTER ASSISTANT Unavailable Unavailable EVER, B RM CEMENT TESTER ASSISTANT Unavailable Unavailable EVER, B RM CEMENT TESTER ASSISTANT Unavailable Unavailable EVER, B RM CEMENT TESTER ASSISTANT Unavailable Unavailable EVER, B RM CEMENT TESTER ASSISTANT Unavailable Unavailable EVER, B RM CEMENT TESTER ASSISTANT Unavailable Unavailable EVER, B RM CEMENT TESTER ASSISTANT Unavailable Unavailable EVER, B RM CEMENT TESTER ASSISTANT Unavailable Unavailable EVER, B RM CEMENT TESTER ASSISTANT Unavailable Unavailable EVER, B RM CEMENT TESTER ASSISTANT Unavailable Unavailable EVER, B RM CEMENT TESTER ASSISTANT Unavailable Unavailable EVER, B RM CEMENT TESTER ASSISTANT Unavailable Unavailable EVER, B RM CEMENT TESTER ASSISTANT Unavailable Unavailable EVER, B RM CEMENT TESTER ASSISTANT Unavailable Unavailable EVER, B RM CEMENT TESTER ASSISTANT Unavailable Unavailable EVER, B RM CEMENT TESTER ASSISTANT Unavailable Unavailable EVER, B RM CEMENT TESTER ASSISTANT Unavailable Unavailable EVER, B RM CEMENT TESTER ASSISTANT Unavailable Unavailable EVER, B RM CEMENT TESTER ASSISTANT Unavailable Unavailable EVER, B RM CEMENT TESTER ASSISTANT Unavailable Unavailable EVER, B RM CEMENT TESTER ASSISTANT Unavailable Unavailable EVER, B RM CEMENT TESTER ASSISTANT Unavailable Unavailable EVER, B RM CEMENT TESTER ASSISTANT Unavailable Unavailable EVER, B RM CEMENT TESTER ASSISTANT Unavailable Unavailable EVER, B RM CEMENT TESTER ASSISTANT Unavailable Unavailable EVER, B RM CEMENT TESTER ASSISTANT Unavailable Unavailable EVER, B RM CEMENT TESTER ASSISTANT Unavailable Unavailable EVER, B RM CEMENT TESTER ASSISTANT Unavailable Unavailable EVER, B RM CEMENT TESTER ASSISTANT Unavailable Unavailable Fish, B Dilia ZAPATA Unavailable Unavailable Fish, B Dilia ZAPATA Unavailable Unavailable Fish, B Dilia ZAPATA Unavailable Unavailable Fish, B Dilia ZAPATA Unavailable Unavailable Fish, B Dilia ZAPATA Unavailable Unavailable Fish, B Dilia ZAPATA Unavailable Unavailable Fish, B Dilia ZAAPTA Unavailable Unavailable Fish, Saul Dobbs MD Unavailable Unavailable Fish, B Dilia ZAPATA Unavailable Unavailable Fish, Saul Dobbs MD Unavailable Unavailable Fish, B Dilia ZAPATA Unavailable Unavailable Fish, B Dilia ZAPATA Unavailable Unavailable Fish, Saul Dobbs MD Unavailable Unavailable Fish, B Dilia [...] B Dilia ZAPATA Unavailable Unavailable Fish, B Dliia ZAPATA Unavailable Unavailable Fish, B Dilia ZAPATA [...] D Jaime PA Unavailable Unavailable Kevin, D Jamie PA Unavailable Unavailable Kevin, D Jaime PA [...] D Jaime PA Unavailable Unavailable Kevin, D Ajime PA Unavailable Unavailable Fish, J Ganga Unavailable [...] Fish, J Ganga Unavailable Unavailable Fish, J Gnaga Unavailable Unavailable Fish, J Ganga Unavailable Unavailable [...] Unavailable Ramon KINGSTON MD Unavailable Unavailable Ramon KINGTSON MD Unavailable Unavailable Ramon KINGSTON MD Unavailable [...] is protected by Article 27-F of the [facility] Public Health law. If you continue you may have access to information: Regarding HIV / AIDS; Provided by facilities licensed or operated by the [facility] Office of Mental Health; or Provided by the [facility] Office for People With Developmental Disabilities. If such information is present, then the following [facility] mandated warning applies: This information has [...] law may result in a fine or penitentiary sentence or both. A general authorization for the release of medical or other information is NOT sufficient authorization for further disc losure. Allergies and Adverse Reactions Type Description Substance Reaction Status Data Source(s ) Drug Allergy NKDA NKDA [facility] Family History Family Member Name Family Member Gender Family Member Status Date o f Status Description Data Source(s) Unknown Unknown Problem [facility] ([facility]) father,mother,sister Unknown Unknown Problem [facility] ([facility]) Unknown Female Problem MED[facility] ([facility]) Unknown Female Problem MED[facility] ([facility]) Unknown Female Problem MED[facility] ([facility]) Unknown Female Problem [facility] ([facility]) Unknown Female Problem [facility] ([facility]) Unknown Female Problem [facility] ([facility]) Unknown Female Problem [facility] ([facility] Encounters Encounter Providers Location Date Indications Data Source(s ) Outpatient Attender: JAMISON KINGSTON MD [facility] 11/2020 10:40:00 AM EDT [facility] ([facility] Outpatient Attender: LIANE Barnes/Farideh/Rakesh/ Reindl 10/29/2020 11:15:00 AM EDT [facility] ([facility] Outpatient Attender: JAMISON KINGSTON MD [facility] 11:00:00 AM EDT [facility] ([facility] Outpatient Attender: JAMISON KINGSTON MD [facility] 11:15:00 AM EDT [facility] ([facility] Outpatient Attender: Jamison Barnes/Farideh/Rakesh/Re indl 10/17/2020 01:45:00 PM EDT [facility] ([facility] Outpatient Attender: Ganga Cain [facility] 10/10/2020 09:30:0 0 AM EDT [facility] ([facility] Outpatient Attender: JAMISON KINGSTON MD [facility] 02:00:00 PM EDT [facility] ([facility] Outpatient Attender: LIANE Barnes/Farideh/Rakesh/ Reindl 09/12/2020 10:45:00 AM EDT [facility] ([facility] Outpatient Attender: RM CURTIS NP Physical Therapy 10:45:00 AM EDT MED[facility] ([facility]) Outpatient Attender: JAIME ashleyy 09/03/2020 05:30:00 PM EDT [facility] ([facility] Outpatient Attender: JAMISON KINGSTON MD [facility] 02/2020 10:20:00 AM EDT [facility] ([facility] OFFICE OUTPATIENT NEW 60 MINUTES Attender: Dilia Cain MD Physi michael Therapy 07/16/2020 01:00:00 PM EDT MED[facility] ([facility]) Outpatient Attender: JAMISON KINGSTON MD [facility] 11:15:00 AM EDT [facility] ([facility] Office Visit Attender: LIANE Barnes/Farideh/Rakesh/ Reinjavon 06/20/2020 10:00:00 AM EDT [facility] ([facility] Outpatient Attender: JAMISON KINGSTON MD [facility] 11:30:00 AM EDT [facility] ([facility] Office Visit Attender: LIANE Barnes/Hudgins/Rakesh/ Reindl 06/06/2020 09:30:00 AM EDT [facility] ([facility] Outpatient Attender: JAMISON KINGSTON MD [facility] 03/2020 02:00:00 PM EDT [facility] ([facility] Office Visit Attender: LIANE Barnes/Farideh/Rakesh/ Reindl 05/23/2020 09:45:00 AM EDT [facility] ([facility] Outpatient Attender: JAMISON KINGSTON MD [facility] 01/2021 02:00:00 PM EST [facility] ([facility] Outpatient Attender: LIANE Barnes/Hudgins/Rakesh/ Reindl 04/18/2020 12:45:00 PM EST [facility] Outpatient Attender: JAMISON KINGSTON MD [facility] 02:40:00 PM EST [facility] ([facility] Outpatient Attender: CATHIE Barnes/Farideh/Ang el/Reindl 03/18/2020 08:00:00 AM EST [facility] ([facility] OFFICE OUTPATIENT VISIT 15 MINUTES Attender: Christophe VALENCIA Physical Therapy 03/12/2020 09:30:00 AM EST MED[facility] ([facility]) OFFICE OUTPATIENT VISIT 15 MINUTES Attender: Christophe VALENCIA Physical Therapy 02/27/2020 09:30:00 AM EST MED[facility] ([facility]) OFFICE OUTPATIENT VISIT 15 MINUTES Attender: DEBBY VALENCIA Ph ysical Therapy 01/22/2020 04:45:00 PM EST MED[facility] ([facility]) Outpatient Attender: JAIME Calvert marcial 01/21/2020 12:15:00 PM EST [facility] ([facility] Emergency Attender: MICHAEL BRUNER MDConsultant: JAMISON OSWALD MD 12/31/2019 03:26:00 PM EST - 12/31/2019 06:17:00 PM EST [facility] Patient discharged. Outpatient Attender: Jaime VALENCIA [facility] 06/2019 12:15:00 PM EST [facility] ([facility] Outpatient Attender: CATHIE Barnes/Farideh/Levi el/Reinjavon 12/13/2019 11:30:00 AM EDT [facility] ([facility] Outpatient Attender: JAMISON KINGSTON MD [facility] 01:30:00 PM EDT [facility] ([facility] Outpatient Attender: JAMISON KINGSTON MD [facility] 10:00:00 AM EDT [facility] ([facility] Immunizations Vaccine Date Status Description Data Source(s) New in 2012. IIV4 11/01/2020 11:05:00 AM EDT completed [facility] ([facility] COVID-19 VACCINE Moderna 06/10/2020 12:00:00 AM EDT completed [facility] Vaccine Series Complete: YESThis Data wa s Submitted to [facility] Via [facility]. COVID-19 VACC,MRNA(MODERNA)/PF 06/10/2020 12:00:00 AM EDT completed [facility] COVID-19 VACCINE, MRNA-1273, LNP-S (MODERNA)/PF 05/18/2020 1 2:00:00 AM EDT completed [facility] COVID-19 VACCINE Moderna 05/17/2020 12:00:00 AM EDT completed [facility] Vaccine Series Complete: NOThis Data was Submitted to [facility] Via [facility]. New in 2012. IIV4 11/06/2019 11:01:00 AM EDT completed [facility] ([facility] Medications Medication Brand Name Start [...] 11/01/2020 12:00:00 AM EDT ORAL active MED[facility] ([facility] empagliflozin 10 MG Oral Tablet [Jardiance] Jardiance 11/01/2020 12:00:00 AM EDT ORAL active [facility] ([facility] 500 mg 10/30/2020 12:00:00 AM EDT tablet 60 TAKE ONE TABLET BY MOUTH TWICE A DAY FOR PAIN TAKE ONE TABLET BY MOUTH TWICE A DAY FOR PAIN SOLD: 10/30/2020 [facility] Trulicity Trulicity 10/22/2020 12:00:00 AM EDT act mario MEDENT ([facility] 3 ML insulin detemir 100 UNT/ML Pen Injector [Levemir] Levem ir Flextouch 10/22/2020 12:00:00 AM EDT active MED[facility] ([facility] 0.5 ML dulaglutide 3 MG/ML Auto-Injector [Trulicity] Trulici ty 10/18/2020 12:00:00 AM EDT completed [facility] ([facility] empagliflozin 25 MG Oral Tablet [Jardiance] Jardiance 10/18/2020 12:00:00 AM EDT ORAL completed [facility] ([facility] 33 gauge 10/12/2020 12:00:00 AM [...] HCL 09/03/2020 12:00:00 AM EDT active [facility] ([facility] 4 mg 09/03/2020 12:00:00 AM EDT tablet [...] Drugs 0.5 ML dulaglutide 1.5 MG/ML Auto-Injector [Trulicity] [facility] 07/16/2020 12:00:00 AM EDT completed MEDENT ([facility]) empagliflozin 10 MG Oral [...] 07/03/2020 12:00:00 AM EDT active M EDENT ([facility]) 1 mg 06/18/2020 12:00:00 AM EDT recon soln 1 DIRECTED DIRECTED SOLD: 06/20/2020 [facility] Glucagon 1 MG Injection Glucagon Emergency 06/18/2020 12:00:00 AM EDT active [facility] ([facility] Metformin hydrochloride 1000 MG Oral Tablet 1,000 mg METFORM IN HCL 05/20/2020 12:00:00 AM EDT tablet 60 TAKE ONE TABLET BY MOUTH TWICE A DAY AT 8:00AM AND 6:00PM TAKE ONE TABLET BY MOUTH TWICE A DAY AT 8:00AM AND 6:0 0PM SOLD: 05/21/2020 [facility] Acetaminophen 325 MG / Hydrocodone Bitartrate 5 MG Oral Tabl et [Aurora] Aurora 05/10/2020 12:00:00 AM EDT ORAL completed MEDENT ([facility], ) 5-325 mg 05/10/2020 12:00:00 AM EDT [...] 04/30/2020 12:00:0 0 AM EST completed MED[facility] ([facility] 420 gram 04/10/2020 12:00:00 AM EST [...] Kwikpen 04/08/2020 12:00:00 AM EST completed [facility] ([facility] Bisacodyl 5 MG Delayed Release Oral Tablet [Dulcolax] Dulcol ax 03/18/2020 12:00:00 AM EST completed MED[facility] ([facility], ) POLYETHYLENE GLYCOL 3350 142 MG/ML Oral Solution [Miralax] M iralax 03/18/2020 12:00:00 AM EST completed [facility] ([facility], ) Dicyclomine Hydrochloride 20 MG Oral Tablet Dicyclomine HCL 03/18/2020 12:00:00 AM EST ORAL completed [facility] ([facility], ) Clenpiq Clenpiq 03/18/2020 12:00:00 AM EST complet ed MEDENT ([facility], ) POLYETHYLENE GLYCOL 3350 105 MG/ML / Pot assium Chloride 0.89581 MEQ/ML / Sodium Bicarbonate 0.017 MEQ/ML / Sodium Chloride 0.0479 MEQ/ML Oral Solution [GaviLyte-N] Gavilyte-N With Flavor Pack 03/18/2020 12:00:00 AM EST completed MEDENT ([facility], ) 20 mg 03/18/2020 12:00:00 AM EST [...] U-100 01/24/2020 12:00:00 AM EST active MED[facility] ([facility] ) 10 mg 12/14/2019 [...] 12/13/2019 12:00:00 AM EDT ORAL completed [facility] ([facility], ) BLOOD-GLUCOSE METER 12/08/2019 12:00:00 AM EDT misc 1 USE UP TO FOUR TIMES A DAY DIRECTED USE UP TO FOUR TIMES A DAY DIRECTED SOLD: 12/20/2019 [facility] Blood Glucose Monitoring System 12/06/2019 12:00:00 AM EDT active [facility] ([facility] Docusate Sodium 100 MG Oral Capsule [DOK] Dok 11/19/2019 12:00:0 0 AM EDT completed MED[facility] ([facility] ) Aspirin 81 MG Delayed Release Oral Tablet SM Aspirin Adult L ow Strength 11/13/2019 12:00:00 AM EDT active [facility] ([facility] Insurance Providers Payer name Policy type / Coverage type Policy ID Covered democrat ID Covered democrat's relationship to reynoso Policy Reynoso Plan Information [employer] Medigap Part B [id number] Family Dependent [id number] [employer] Med[employer]ap Part B [id number] Family Dependent [id number] [employer]/[facility] (Old) Medigap Part B [id number] [id number] Family Dependent [id number] [employer] Medigap Part B [id number] 2.16.840.1.033104.3.227.99 .4595.80094.0 Family Dependent [id number] [employer] (Old) Medigap Part B [id number] 3.3.227.99.4595.29693.0 Family Dependent [id number] [employer] Medigap Part B [id number] 2.16.840.1.087657.3.227.99 .4595.13063.0 Family Dependent [id number] [employer] Medigap Part B [id number] 2.16840.1.794792.3.227.99 .4595.60778.0 Family Dependent [id number] [employer] (Old) Medigap Part B [id number] 2.16840.1.17010 3.3.227.99.4595.52810.0 Family Dependent [id number] [employer] Medigap Part B [id number] 2.16840.1.829993.3.227.99 .4595.74618.0 Family Dependent [id number] Umr [employer] Medigap Part B [id number] 2.840.1.278924.3.227.9 9.4595.81731.0 Family Dependent [id number] [employer] [facility] [place] [id number] Family Dependent 33 5 Umr [employer] Medigap Part B [id number] 2.16.840.1.926313.3.227.9 9.4595.18241.0 Family Dependent [id number] Umr [employer] Medigap Part B [id number] 2.16840.1.179651.3.227.9 9.4595.57932.0 Family Dependent [id number] [facility] (Old) Medigap Part B [id number] 2.16.840.1.24387 3.3.227.99.4595.99198.0 Family Dependent [id number] [facility] (pr) Medigap Part B [id number] 2.16840.1.542520.3.227.99 .991.65245.0 Family Dependent [id number] [facility] (pr) Medigap Part B [id number] 2.840.1.245043.3.227.99 .991.75026.0 Family Dependent [id number] [facility] (pr) Medigap Part B [id number] 2.16840.1.798925.3.227.99 .991.24022.0 Family Dependent [id number] [facility] (pr) Medigap Part B [id number] Family Dependent 335 Medicare Natl Govt Servic Medicare Primary [id number] Self Medicare Natl Govt Servic Medicare Primary [id number] 2.840.1.815273.3.227.99.4595.49114.0 Self [id number] Medicare Natl Govt Servic Medicare Primary [id number] 2.840.1.853683.3.227.99.4595.26731.0 Self [id number] Medicare Natl Govt Servic Medicare Primary [id number] 2.0.1.700483.3.227.99.4595.15404.0 Self [id number] Medicare Natl Govt Servic Medicare Primary [id number] 2.840.1.666324.3.227.99.4595.56655.0 Self [id number] Medicare Natl Govt Servic Medicare Primary [id number] 2.840.1.312047.3.227.99.4595.85213.0 Self [id number] Medicare Natl Govt Servic Medicare Primary [id number] 2.840.1.225644.3.227.99.4595.81579.0 Self [id number] Medicare Natl Govt Servic Medicare Primary [id number] 2.840.1.019185.3.227.99.4595.48340.0 Self [id number] Medicare Natl Govt Servic Medicare Primary [id number] 2.16.840.1.261282.3.227.99.4595.40323.0 Self [id number] Medicare Natl Govt Servic Medicare Primary [id number] 2.16.840.1.428616.3.227.99.4595.14482.0 Self [id number] Medicare Natl Govt Servic Medicare Primary [id number] 2.16.840.1.367107.3.227.99.4595.33694.0 Self [id number] Medicare Natl Govt Servic Medicare Primary [id number] 2.16.840.1.490626.3.227.99.4595.17979.0 Self [id number] Medicare Natl Govt Servic Medicare Primary [id number] 2.840.1.096096.3.227.99.4595.66019.0 Self [id number] Medicare Natl Govt Servic Medicare Primary [id number] 2.16840.1.645678.3.227.99.4595.78231.0 Self [id number] [facility]) Commercial [id number] 2.0.1.339098.3.227.99.991.12699.0 Self [id number] [facility]) Commercial Complete Choice [id number] Self Complete Choice UMR [facility] [id number] [facility] [id number] Umr ([facility]) [facility] [employer] Part B [id number] 20.1.357600.3.227 .99.4595.28007.0 Family Dependent [id number] Umr (as Of 06/22/2017) Medigap Part B [id number] 2.0.1.172350.3.227.99.4595.79879.0 Family Dependent [id number] MEDICARE COMPLETE [id number] [id number] [facility]/Medicare Solu Commercial [id number] 20.1.296068.3.227.99.1767.23047.0 Self [id number] UMR O [id number] P [id number] 1 MEDICARE COMPLETE-UHC O [id number] S [id number] Medicare Natl Gov't Servi Medigap Part B [id number].1767.78898.0 Self [id number] [facility] Medigap Part B [id number] .1.712813.3.227.9 9.1767.76826.0 Family Dependent [id number] [facility]/Medicare Solu Commercial [id number] .1.733643.3.227.99.1767.64772.0 Self [id number] CardioMEMS [id number] .1.301495.3.227.99.936.10416.0 Self [id number] [facility] Medigap Part B [id number] .1.513724.3.227.9 9.1767.18470.0 Family Dependent [id number] Medicare Natl Gov't Servi Medigap Part B [id number] .1.803813.3.227.99.1767.64467.0 Self [id number] [facility]/Medicare Solu Commercial [id number] .1.239996.3.227.99.1767.44788.0 Self [id number] CardioMEMS [id number] .1.063649.3.227.99.936.28241.0 Self [id number] [facility] Medigap Part B [id number] .1.741887.3.227.99 .936.33716.0 Family Dependent [id number] [facility] [id number] HU2 [id number] [employer] PPO O [id number] S [id number] Medicare Natl Gov't Servi Medigap Part B [id number] 2.0.1.559756.3.227.99.1767.13167.0 Self [id number] [facility] Medigap Part B [id number] 2.0.1.922910.3.227.99 .1767.89186.0 Family Dependent [id number] [facility]/Medicare Solu Commercial [id number] 2.0.1.174069.3.227.99.1767.93180.0 Self [id number] [employer] Commercial [id number] 2.0.1.149112.3.227.99.936.47766.0 Self [id number] Medicare Natl Gov't Servi Medigap Part B [id number] ..1.651161.3.227.99.1767.38060.0 Self [id number] [facility] Commercial [id number] ..1.711192.3.227.99.1 767.70165.0 Family Dependent [id number] [facility] Commercial [id number] 2..1.122076.3.227.99.936.17697.0 Self [id number] [facility] Medicare Denise Commercial [id number] 2.0.1.919519.3.227.99.4595.94064.0 Self [id number] [employer] Commercial [id number] 2.0.1.659089.3.227.99.936.29062.0 Self [id number] [employer] Commercial [id number] 2.0.1.418254.3.227.99.936.28526.0 Self [id number] [employer] Commercial [id number] ..1.096476.3.227.99.936.95305.0 Self [id number] [employer] Medigap Part B [id number] ..1.918749.3.227.99 .[id number] Family Dependent [id number] [place] Medicare Primary [id number] Self [id number] [facility] Medicare Commercial [id number] Self [id number] CardioMEMS [id number] Self [id number] [employer] Medigap Part B [id number] Family Dependent [id number] Medicare Natl Gov't Servi Medicare Primary [id number] Self [id number] [employer] Medicare Sol Commercial [id number] Self [id number] [facility] Medigap Part B [id number] Self Ppo CardioMEMS [id number] Self [employer] Commercial [id number] Family Dependent Medicare Dme Supplies Medigap Part B [id number] Self Medicare [facility] Medicare Primary [id number] Self MEDICARE [id number] SP [id number] A MEDICARE C [id number] S [id number] A [employer] Medigap Part B [id number] Family Dependent Medicare Natl Gov't Servi Medicare Primary [id number] Self [employer] [facility] [employer] [id number] HU2 [id number] [employer] [id number] SP [id number] GHI P [id number] S [id number] MEDICARE [id number] SP [id number] UMR [facility] [id number] HU2 [id number] MEDICARE COMPLETE [id number] SP [id number] UMR O [id number] S [id number] MEDICARE COMPLETE-UHC O [id number] S [id number] UNHC MEDICARE COMPLETE - O/P [id number] 18 [id number] R [facility] [id number] HU2 [id number] R O [id number] S [id number] [employer] Commercial [id number] Self [id number] [employer] Medigap Part B [id number] Family Dependent [id number] Umr Commercial [id number] Family Dependent [id number] CardioMEMS [id number] Self [id number] CardioMEMS [id number] Self [id number] Medicare Natl Gov't Servi Medigap Part B [id number] Self [id number] Umr/Uhc/[employer] Medigap Part B [id number] Family Dependent [id number] [facility] [id number] Self [id number] Medicare Natl Gov't Servi Medigap Part B [id number] Self [id number] Umr/Uhc/[employer] Medigap Part B [id number] Family Dependent [id number] [facility]/Medicare Solu Commercial [id number] Self [id number] Medicare Natl Gov't Servi Medigap Part B [id number] Self [id number] Umr/Uhc/[employer] Medigap Part B [id number] Family Dependent [id number] [facility]/Medicare Solu Commercial [id number] Self [id number] Medicare Dme Supplies Medigap Part B [id number] Self [id number] [place] Med[place] Part B [id number] Self [id number] Umr (pr) Medigap Part B [id number] 6.0 Self [id number] [facility] [employer] [id number] Self [id number] [facility] Medigap Part B [id number] Self [id number] [place] Not iT [id number] Self [id number] Medicare Dme Supplies Medigap Part B [id number] Self [id number] Medicare [facility] Medigap Part B [id number] Self [id number] Umr (pr) Medigap Part B [id number] 6.0 Self [id number] Medicare Dme Supplies Medigap Part B [id number] Self 0 [id number] Medicare [facility] Medigap Part B [id number] Self 0 [id number] Umr (pr) Medigap Part B [id number] 6.0 Self [id number] CardioMEMS [id number] Self [id number] Medicare Natl Gov't Servi Medigap Part B [id number] [id number] Self [id number] Umr/Uhc/[employer] Medigap Part B [id number] Family Dependent [id number] Problems, Conditions, and Diagnoses Code Display Name Description Problem Type Effective Dates Data Source(s) A85554 Personal history of nicotine dependence Personal history of nicotine dependence Diagnosis 12/31/2019 03:26:00 PM [facility] Z7984 meterman (current) use of oral hypoglyc emic drugs snf (current) use of oral hypoglycemic drugs Diagnosis 12/31/2019 03:26:00 PM [facility] Z7982 snf (cu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 meterman (cu 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 Diagnosis 12/31/2019 03:26:00 PM [facility] I10 Essential (primary) hypertension Essential (primary) h ypertension Diagnosis 12/31/2019 03:26:00 PM [facility] E785 Hyperlipidemia, unspecified Hyperlipidemia, unspecifie d Diagnosis 12/31/2019 03:26:00 PM [facility] E119 Type 2 diabetes mellitus without complic ations Type 2 diabetes mellitus without complications Diagnosis 12/31/2019 03:26:00 PM [facility] J9801 Acute bronchospasm Acute bronchospasm Diagnosis 09/2019 03:26:00 PM [facility] R0789 Other chest pain Other chest pain Diagnosis 12/31/2019 03 :26:00 PM [facility] Surgeries/Procedures Procedure Description Date Indications Data Source(s) DEBRIDEMENT NAIL ANY METHOD 12/20/2020 12:00:00 AM EDT [facility] ([facility] OFFICE OUTPATIENT VISIT 25 MINUTES 11/01/2020 12:00:00 AM EDT [facility] ([facility] OFFICE OUTPATIENT VISIT 15 MINUTES 10/29/2020 12:00:00 AM EDT [facility] ([facility], ) OFFICE OUTPATIENT VISIT 25 MINUTES 10/22/2020 12:00:00 AM EDT [facility] ([facility] OFFICE OUTPATIENT VISIT 25 MINUTES 10/18/2020 12:00:00 AM EDT [facility] ([facility] OFFICE OUTPATIENT NEW 30 MINUTES 10/17/2020 12:00:00 A M EDT [facility] ([facility], ) OFFICE OUTPATIENT NEW 45 MINUTES 10/17/2020 12:00:00 A M EDT [facility] ([facility], ) DEBRIDEMENT NAIL ANY METHOD 10/11/2020 12:00:00 [...] 15 MINUTES 09/12/2020 12:00:00 AM EDT [facility] ([facility]) OFFICE OUTPATIENT VISIT 25 MINUTES 09/11/2020 12:00:00 AM EDT [facility] ([facility]) OFFICE OUTPATIENT VISIT 25 MINUTES 09/03/2020 12:00:00 AM EDT [facility] ([facility]) DEBRIDEMENT NAIL ANY METHOD 07/26/2020 12:00:00 AM EDT [facility] ([facility] OFFICE OUTPATIENT VISIT 25 MINUTES 07/23/2020 12:00:00 AM EDT [facility] ( [facility] OFFICE OUTPATIENT NEW 60 MINUTES 07/16/2020 12:00:00 A M EDT [facility] ([facility]) OFFICE OUTPATIENT VISIT 25 MINUTES 07/08/2020 [...] SUBQ <3CM 021 12:00:00 AM EDT [facility] ([facility]) EXC TUMOR SOFT TISSUE ABDOMINAL WALL SUBQ <3CM 021 12:00:00 AM EDT [facility] ([facility]) OFFICE OUTPATIENT VISIT 25 MINUTES 05/03/2020 12:00:00 AM EST [facility] ( [facility] Diabetic Foot Exam 04/22/2020 12:00:00 AM EST [facility] ([facility]) OFFICE OUTPATIENT NEW 30 MINUTES 04/18/2020 12:00:00 A M EST [facility] ([facility], ) OFFICE OUTPATIENT VISIT 25 MINUTES 04/15/2020 12:00:00 AM EST [facility] ([facility] OFFICE OUTPATIENT VISIT 25 MINUTES 03/18/2020 12:00:00 AM EST [facility] ([facility]) RADEX FINGR MINIMUM 2 VIEWS 03/12/2020 12:00:00 AM EST [facility] ([facility]) DEBRIDEMENT NAIL ANY METHOD 03/08/2020 12:00:00 AM EST [facility] ([facility] RADEX FINGR MINIMUM 2 VIEWS 02/27/2020 12:00:00 AM EST [facility] ([facility]) DEBRIDEMENT NAIL ANY METHOD 12/28/2019 12:00:00 AM EST [facility] Electrocardiogram Complete 12/28/2019 12:00:00 AM EST [facility] ([facility] Electrocardiogram Complete 11/22/2019 12:00:00 AM EDT [facility] ([facility] Mammogram 11/15/2019 12:00:00 AM EDT M [facility] ([facility] Results ID Date Data Source [id number] 11/20/2020 09:13:00 PM EDT [facility] Name Value Range Interpretation Code Description Data Leona rce(s) Supporting Document(s) Glucose [Mass/volume] in Capillary blood by Glucometer 309 mg/dL 83-110 Above high normal [facility] ([facility] ) ID Date Data Source [id number] 11/20/2020 07:29:00 PM EDT [facility] ([facility] Name Value Range Interpretation Code Description Data Leona rce(s) Supporting Document(s) Glucose [Mass/volume] in Capillary blood by Glucometer 208 mg/dL 83-110 Above high normal [facility] ([facility] ) ID Date Data Source [id number] 11/20/2020 06:58:00 PM EDT [facility] ([facility] Name Value Range Interpretation Code Description Data Leona rce(s) Supporting Document(s) Glucose [Mass/volume] in Capillary blood by Glucometer 84 mg/dL 83-110 Normal (applies to non-numeric results) [facility] ([facility] ID Date Data Source [id number] 11/20/2020 06:21:00 PM EDT [facility] ([facility] Name Value Range Interpretation Code Description Data Leona rce(s) Supporting Document(s) Glucose [Mass/volume] in Capillary blood by Glucometer 36 mg/dL 83-110 Below lower panic limits [facility] ([facility] ) Doctor Notified ID Date Data Source [id number] 11/20/2020 06:01:00 PM EDT [facility] ([facility] Name Value Range Interpretation Code Description Data Leona rce(s) Supporting Document(s) Glucose [Mass/volume] in Capillary blood by Glucometer 25 mg/dL 83-110 Below lower panic limits [facility] ([facility] ) Doctor Notified ID Date Data Source [id number] 11/20/2020 06:00:00 PM EDT [facility] ([facility] Name Value Range Interpretation Code Description Data Leona rce(s) Supporting Document(s) Glucose [Mass/volume] in Capillary blood by Glucometer 32 mg/dL 83-110 Below lower panic limits [facility] ([facility] ) Doctor Notified ID Date Data Source [id number] 11/20/2020 04:24:00 PM EDT [facility] ([facility] Name Value Range Interpretation Code Description Data Leona rce(s) Supporting Document(s) Glucose [Mass/volume] in Capillary blood by Glucometer 107 mg/dL 83-110 Normal (applies to non-numeric results) [facility] ([facility] ID Date Data Source [id number] 11/01/2020 11:10:00 AM EDT [facility] ([facility] Name Value Range Interpretation Code Description Data Leona rce(s) Supporting Document(s) Hemoglobin A1c/Hemoglobin.total in Blood 7.5 % 4.8-5.6 Above high normal [facility] ([facility] <content>Prediabetes: 5.7 - 6.4</content >
<content>Diabetes: >6.4</content>
<content>Glycemic control for adults with diabetes: <7.0</content>
<content></content> ID Date Data Source [id number] 11/01/2020 11:09:00 AM EDT [facility] ([facility] Name Value Range Interpretation Code Description Data Leona rce(s) Supporting Document(s) Chol 131 mg/dL 0-200 [facility] CHRONIC KIDNEY DISEASE STAGING [...] YEARS EXCLUSIVE. Trig 76 mg/dL 40-200 [facility] ([facility] CHRONIC KIDNEY DISEASE [...] YEARS EXCLUSIVE. Cho/HDL Ratio 2.3 Calc [facility] ([facility] CHRONIC KIDNEY DISEASE STAGING [...] 2-19 YEARS EXCLUSIVE. ID Date Data Source [id number] 11/01/2020 11:09:00 AM EDT [facility] ([facility] Name Value Range Interpretation Code Description Data Leona rce(s) Supporting Document(s) BUN 18 mg/dL 8-23 [facility] ([facility] CHRONIC KIDNEY DISEASE [...] 113 mg/dL 70-110 Above high normal [facility] ([facility] CHRONIC KIDNEY DISEASE STAGING [...] YEARS EXCLUSIVE. Creat 0.9 mg/dL 0.5-1.0 [facility] ([facility] CHRONIC KIDNEY DISEASE [...] YEARS EXCLUSIVE. BUN/Creatinine Ratio 20.3 CALC [facility] ([facility] CHRONIC KIDNEY DISEASE STAGING [...] 3.5-5.1 [facility] ([facility] CHRONIC [...] mmol/L 136-145 Below low normal [facility] ( [facility] CHRONIC KIDNEY DISEASE STAGING [...] YEARS EXCLUSIVE. Co2 22.1 mmol/L 22.0-29.0 [facility] ([facility] CHRONIC KIDNEY DISEASE STAGING PER [...] YEARS EXCLUSIVE. Alb 4.3 g/dL 3.4-4.8 [facility] CHRONIC KIDNEY DISEASE STAGING [...] YEARS EXCLUSIVE. Alt (SGPT) 9 U/L 0-41 [facility] ([facility] CHRONIC KIDNEY DISEASE [...] EXCLUSIVE. Ast (Sgot) 15 U/L 0-40 [facility] ([facility] CHRONIC KIDNEY DISEASE [...] INDIVIDUALA AGED 2-19 YEARS EXCLUSIVE. eGFR Non-Afr. [place]er 65 # [facility] ([facility] [...] 2-19 YEARS EXCLUSIVE. ID Date Data Source [id number] 10/15/2020 05:37:00 PM EDT [facility] ([facility] Name Value Range Interpretation Code Description Data Leona rce(s) Supporting Document(s) Glucose [Mass/volume] in Capillary blood by Glucometer 203 mg/dL 83-110 Above high normal [facility] ([facility] ) ID Date Data Source [id number] 10/15/2020 04:34:00 PM EDT [facility] ([facility] Name Value Range Interpretation Code Description Data Leona rce(s) Supporting Document(s) Glucose [Mass/volume] in Capillary blood by Glucometer 159 mg/dL 83-110 Above high normal [facility] ([facility] ) ID Date Data Source [id number] 10/15/2020 03:12:00 PM EDT [facility] ([facility] Name Value Range Interpretation Code Description Data Leona rce(s) Supporting Document(s) Glucose [Mass/volume] in Capillary blood by Glucometer 43 mg/dL 83-110 Below low normal [facility] ([facility] ) ID Date Data Source [id number] 10/15/2020 11:29:00 AM EDT [facility] ([facility] Name Value Range Interpretation Code Description Data Leona rce(s) Supporting Document(s) White Blood Count 8.1 10 4.0-10.0 Normal (applies to non-numeri c results) [facility] ([facility] Hemoglobin 14.1 g/dL 12.0-15.5 Normal (applies to non-numeric resul ts) [facility] ([facility] Red Blood Count 5.45 10 4.00-5.40 Above high normal [facility] ([facility] Hematocrit 45.9 % 36.0-47.0 Normal (applies to non-numeric resul ts) [facility] ([facility] Mean Corpuscular Volume 84.2 fl 80.0-96.0 Normal ( applies to non-numeric results) [facility] ([facility] ) Mean Corpuscular Hemoglobin 25.9 pg 27.0-33.0 Below low normal [facility] ([facility] Mean Corpuscular HGB Conc 30.7 g/dL 32.0-36.5 Below low normal [facility] ([facility] Red Cell Distribution Width 15.6 % 11.5-14.5 Above high normal [facility] ([facility] Platelet Count, Automated 350 10 150-450 Normal (applies to non-numeric results) [facility] ([facility] ) Neutrophils % 51.4 % 36.0-66.0 Normal (applies to non-numeric re sults) [facility] ([facility] C[place]ton % 6.8 % 2.0-8.0 Normal (applies to non-numeric resul ts) [facility] ([facility] Lymph % 37.8 % 24.0-44.0 Normal (applies to non-numeric resul ts) [facility] ([facility] Eos % 3.2 % 0.0-3.0 Above high normal [facility] ([facility] Baso % 0.6 % 0.0-1.0 Normal (applies to non-numeric resul ts) [facility] ([facility] Immature Granulocyte % 0.2 % 0-3.0 Normal (applies to non-n umeric results) [facility] ([facility] Nucleated Red Blood Cell % 0.0 % 0-0 Normal (applies to n on-numeric results) [facility] ([facility] [place]oding[place] # 0.6 10 0.0-0.8 Normal (applies to non-numeric resul ts) [facility] ([facility] Neutrophils # 4.2 10 1.5-8.5 Normal (applies to non-numeric re sults) [facility] ([facility] Lymph # 3.1 10 1.5-5.0 Normal (applies to non-numeric resul ts) [facility] ([facility] Eos # 0.3 10 0.0-0.5 Normal (applies to non-numeric resul ts) [facility] ([facility] Baso # 0.1 10 0.0-0.2 Normal (applies to non-numeric resul ts) [facility] ([facility] ID Date Data Source [id number] 10/15/2020 11:29:00 AM EDT [facility] ([facility] Name Value Range Interpretation Code Description Data Leona rce(s) Supporting Document(s) CPK Creatine Phosphokinase 43 U/L 26-192 Roselia l (applies to non-numeric results) [facility] ([facility] MB/CK Relative Index 2.33 Normal (applies to non-num ana rosa results) [facility] ([facility] <content>DIAGNOSIS CRITERIA</content>
<content>MMB ng/ml Relative Index (RI)</content>
<content>NON-AMI < or = 5 N/A</content>
<content>GIL ZONE > 5 < or = 4</content>
<content>AMI > 5 > 4</content>
<content></content> CK-MB Value Mass Laboratory test result Normal ( applies to non-numeric results) [facility] ([facility] Troponin I Laboratory test result Normal (applies to non-n umeric results) [facility] <content>Troponin I Reference Interval f or Siemens [place] LOCI:</content>
<content></content>
<content>99th Percentile= 0.00-0.045 ng/ml</content>
<content></content>
<content>Risk Stratification:</content>
<content><= 0.10 ng/ml Decreased Risk for Adverse Clinical</content>
<content>Events.</content>
<content>0.10-1.50 ng/ml Increased Risk for Adverse Clinical</content>
<content>Events. Evaluation of additional</content>
<content>criterion and/or repeat testing in 2-6</content>
<content>hours is suggested to rule out myocardial</content>
<content>damage.</content>
<content>>= 1.50 ng/ml Indicative of Myocardial Injury.</content>
<content></content> ID Date Data Source [id number] 10/15/2020 11:29:00 AM EDT [facility] ([facility] Name Value Range Interpretation Code Description Data Leona rce(s) Supporting Document(s) Alt/SGPT 22 U/L 12-78 Normal (applies to non-numeric resul ts) [facility] ([facility] Ast/Sgot 12 U/L 7-37 Normal (applies to non-numeric resul ts) [facility] ([facility] Alkaline Phosphatase 97 U/L 45-117 Normal (applies to non-num ana rosa results) [facility] Bilirubin,Direct Laboratory test result 0.0-0.2 Normal ( applies to non-numeric results) [facility] ([facility] Bilirubin,Total 0.2 mg/dL 0.2-1.0 Normal (applies to non-numeric results) [facility] ([facility] Albumin/Globulin Ratio 1.0 1.2-2.2 Below low normal [facility] Total Protein 6.9 GM/DL 6.4-8.2 Normal (applies to non-numeric re sults) [facility] ([facility] Albumin 3.5 GM/DL 3.2-5.2 Normal (applies to non-numeric resul ts) [facility] ([facility] ID Date Data Source [id number] 10/15/2020 11:29:00 AM EDT [facility] ([facility] Name Value Range Interpretation Code Description Data Leona rce(s) Supporting Document(s) Glucose, Fasting 44 mg/dL 70-100 Below low normal [facility] ([facility] Creatinine For GFR 0.65 mg/dL 0.55-1.30 Normal (applies to non -numeric results) [facility] ([facility] Blood Urea Nitrogen 14 mg/dL 7-18 Normal (applies to non-nume samantha results) [facility] Glomerular Filtration Rate Laboratory test result Normal (applies to non- numeric results) [facility] ([facility] <content>Units are mL/min/1.73 m2</content>
<content></content>
<content>Chronic Kidney Disease Staging per NKF:</content>
<content></content>
<content>Stage I & II GFR >=60 Normal to Mildly Decreased</content>
<content>Stage III GFR 30- 59 Moderately Decreased</content>
<content>Stage IV GFR 15-29 Severely Decreased</content>
<content>Stage V GFR <15 Very Little GFR Left</content>
<content>ESRD GFR <15 on PRINTING TECHNICIAN</content>
<content></content> Potassium Serum 4.3 meq/L 3.5-5.1 Normal (applies to non-numeric results) [facility] ([facility] Sodium Level 142 meq/L 136-145 Normal (applies to non-numeric res ults) [facility] ([facility] Chloride Level 111 meq/L 98-107 Above high normal [facility] ([facility] Carbon Dioxide Level 26 meq/L 21-32 Normal (applies to non-num ana rosa results) [facility] ([facility] Anion Gap 5 meq/L 8-16 Below low normal [facility] ( [facility] Calcium Level 9.2 mg/dL 8.8-10.2 Normal (applies to non-numeric re sults) [facility] ([facility] ID Date Data Source [id number] 10/15/2020 11:29:00 AM EDT [facility] ([facility] Name Value Range Interpretation Code Description Data Leona rce(s) Supporting Document(s) Thyrotropin [Units/volume] in Serum or Plasma 2.430 uIU/ML 0. 358-3.740 Normal (applies to non-numeric results) [facility] ([facility] Osmolality of Serum or Plasma 290 MOSM/KG 280-301 No rmal (applies to non-numeric results) [facility] ([facility] ) ID Date Data Source [id number] 10/13/2020 06:30:00 PM EDT [facility] ([facility] Name Value Range Interpretation Code Description Data Leona rce(s) Supporting Document(s) Laboratory test finding (navigational concept) 179 mg/dL 7 0-105 Above high normal [facility] ([facility] ) Laboratory test finding (navigational concept) 40.0 % 3 8.0-51.0 Normal (applies to non-numeric results) [facility] ([facility] Laboratory test finding (navigational concept) 141 meq/L 1 36-145 Normal (applies to non-numeric results) [facility] ([facility] Laboratory test finding (navigational concept) 4.2 mg/dL 4 .5-5.3 Below low normal [facility] ([facility] ) Laboratory test finding (navigational concept) 3.8 meq/L 3 .5-5.1 Normal (applies to non-numeric results) [facility] ([facility] Laboratory test finding (navigational concept) 104 meq/L 9 8-109 Normal (applies to non-numeric results) [facility] ([facility] Laboratory test finding (navigational concept) 24.0 MM/L 2 3.0-27.0 Normal (applies to non-numeric results) [facility] ([facility] Laboratory test finding (navigational concept) 28 mg/dL 8-26 Above high normal [facility] ([facility] Laboratory test finding (navigational concept) 0.9 mg/dL 0 .6-1.3 Normal (applies to non-numeric results) [facility] ([facility] ID Date Data Source [id number] 10/10/2020 10:10:00 AM EDT [facility] ([facility] Name Value Range Interpretation Code Description Data Leona rce(s) Supporting Document(s) Glucometer-[facility] 214 mg/dL 65-109 Above high normal [facility] ([facility] ID Date Data Source [id number] 10/05/2020 08:30:00 PM EDT [facility] Name Value Range Interpretation Code Description Data Leona rce(s) Supporting Document(s) SARS coronavirus 2 RNA [Presence] in Res piratory specimen by DANIELA with probe detection NEGATIVE [facility] This lab was ordered by [facility] a nd reported by [facility]. ID Date Data Source [id number] 10/03/2020 04:34:00 PM EDT [facility] Name Value Range Interpretation Code Description Data Leona rce(s) Supporting Document(s) SARS coronavirus 2 RNA [Presence] in Res piratory specimen by DANIELA with probe detection NEGATIVE [facility] This lab was ordered by [facility] a nd reported by [facility]. ID Date Data Source [id number] 10/03/2020 04:14:00 PM EDT [facility] ([facility] Name Value Range Interpretation Code Description Data Leona rce(s) Supporting Document(s) Glucose [Mass/volume] in Capillary blood by Glucometer 217 mg/dL 83-110 Above high normal [facility] ([facility] ) ID Date Data Source [id number] 10/03/2020 02:57:00 PM EDT [facility] ([facility] Name Value Range Interpretation Code Description Data Leona rce(s) Supporting Document(s) Glucose [Mass/volume] in Capillary blood by Glucometer 77 mg/dL 83-110 Below low normal [facility] ([facility] ) ID Date Data Source [id number] 10/03/2020 02:21:00 PM EDT [facility] ([facility] Name Value Range Interpretation Code Description Data Leona rce(s) Supporting Document(s) Glucose [Mass/volume] in Capillary blood by Glucometer 31 mg/dL 83-110 Below lower panic limits [facility] ([facility] ) ID Date Data Source [id number] 10/03/2020 11:15:00 AM EDT [facility] ([facility] Name Value Range Interpretation Code Description Data Leona rce(s) Supporting Document(s) Venous Partial Pressure O2 41.4 mmHg 30.0-50.0 Roselia l (applies to non-numeric results) [facility] ([facility] ) Venous Partial Pressure Co2 44.2 mmHg 38.0-50.0 Norm al (applies to non-numeric results) [facility] ([facility] ) Venous PH 7.375 units 7.330-7.430 Normal (applies to non-numeric res ults) [facility] ([facility] Venous Hco3 25.3 meq/L 23.0-27.0 Normal (applies to non-numeric resu lts) [facility] ([facility] Venous Total Co2 26.6 meq/L 24.0-28.0 Normal (applies to non-numeric results) [facility] ([facility] Venous O2 Saturation 77.9 % 60.0-80.0 Normal (applies to non-num ana rosa results) [facility] ([facility] Venous Base Excess -0.2 Normal (applies to non-numer ic results) [facility] ([facility] Venous Standard Hco3 23.9 meq/L Normal (applies to non-num ana rosa results) [facility] ([facility] ID Date Data Source [id number] 10/03/2020 10:59:00 AM EDT [facility] ([facility] Name Value Range Interpretation Code Description Data Leona rce(s) Supporting Document(s) Red Blood Count 5.02 10 4.00-5.40 Normal (applies to non-numeric results) [facility] White Blood Count 7.5 10 4.0-10.0 Normal (applies to non-numeri c results) [facility] ([facility] Hemoglobin 13.0 g/dL 12.0-15.5 Normal (applies to non-numeric resul ts) [facility] ([facility] Hematocrit 43.5 % 36.0-47.0 Normal (applies to non-numeric resul ts) [facility] ([facility] Mean Corpuscular Volume 86.7 fl 80.0-96.0 Normal ( applies to non-numeric results) [facility] ([facility] ) Mean Corpuscular Hemoglobin 25.9 pg 27.0-33.0 Below low normal [facility] ([facility] Mean Corpuscular HGB Conc 29.9 g/dL 32.0-36.5 Below low normal [facility] ([facility] Platelet Count, Automated 279 10 150-450 Normal (applies to non-numeric results) [facility] ([facility] ) Neutrophils % 60.9 % 36.0-66.0 Normal (applies to non-numeric re sults) [facility] ([facility] Red Cell Distribution Width 15.3 % 11.5-14.5 Above high normal [facility] ([facility] [place] % 6.3 % 2.0-8.0 Normal (applies to non-numeric resul ts) [facility] ([facility] Eos % 1.6 % 0.0-3.0 Normal (applies to non-numeric resul ts) [facility] ([facility] Lymph % 30.2 % 24.0-44.0 Normal (applies to non-numeric resul ts) [facility] ([facility] Immature Granulocyte % 0.3 % 0-3.0 Normal (applies to non-n umeric results) [facility] ([facility] Baso % 0.7 % 0.0-1.0 Normal (applies to non-numeric resul ts) [facility] ([facility] Lymph # 2.3 10 1.5-5.0 Normal (applies to non-numeric resul ts) [facility] ([facility] Nucleated Red Blood Cell % 0.0 % 0-0 Normal (applies to n on-numeric results) [facility] ([facility] Neutrophils # 4.6 10 1.5-8.5 Normal (applies to non-numeric re sults) [facility] ([facility] [place] # 0.5 10 0.0-0.8 Normal (applies to non-numeric resul ts) [facility] ([facility] Eos # 0.1 10 0.0-0.5 Normal (applies to non-numeric resul ts) [facility] ([facility] Baso # 0.1 10 0.0-0.2 Normal (applies to non-numeric resul ts) [facility] ([facility] ID Date Data Source [id number] 10/03/2020 10:59:00 [facility] Name Value Range Interpretation Code Description Data Leona rce(s) Supporting Document(s) Glucose, Fasting 58 mg/dL 70-100 Below low normal [facility] ([facility] Blood Urea Nitrogen 16 mg/dL 7-18 Normal (applies to non-nume samantha results) [facility] ([facility] Creatinine For GFR 0.59 mg/dL 0.55-1.30 Normal (applies to non -numeric results) [facility] ([facility] Glomerular Filtration Rate Laboratory test result Normal (applies to non- numeric results) [facility] ([facility] ) <content>Units are mL/min/1.73 m2</content>
<content></content>
<content>Chronic Kidney Disease Staging per NKF:</content>
<content></content>
<content>Stage I & II GFR >=60 Normal to Mildly Decreased</content>
<content>Stage III GFR 30- 59 Moderately Decreased</content>
<content>Stage IV GFR 15-29 Severely Decreased</content>
<content>Stage V GFR <15 Very Little GFR Left</content>
<content>ESRD GFR <15 on PRINTING TECHNICIAN</content>
<content></content> Sodium Level 143 meq/L 136-145 Normal (applies to non-numeric res ults) [facility] ([facility] Potassium Serum 4.0 meq/L 3.5-5.1 Normal (applies to non-numeric results) [facility] ([facility] Chloride Level 111 meq/L 98-107 Above high normal [facility] ([facility] Carbon Dioxide Level 30 meq/L 21-32 Normal (applies to non-num ana rosa results) [facility] ([facility] Calcium Level 8.9 mg/dL 8.8-10.2 Normal (applies to non-numeric re sults) [facility] ([facility] Anion Gap 2 meq/L 8-16 Below low normal [facility] ( [facility] ID Date Data Source [id number] 10/03/2020 10:59:00 AM EDT [facility] ([facility] Name Value Range Interpretation Code Description Data Leona rce(s) Supporting Document(s) Thyrotropin [Units/volume] in Serum or Plasma 2.440 uIU/ML 0. 358-3.740 Normal (applies to non-numeric results) [facility] Magnesium [Mass/volume] in Serum or Plasma 2.2 mg/dL 1.8-2 .4 Normal (applies to non-numeric results) [facility] ([facility]) ID Date Data Source [id number] 10/03/2020 10:59:00 AM EDT [facility] ([facility] Name Value Range Interpretation Code Description Data Leona rce(s) Supporting Document(s) CPK Creatine Phosphokinase 77 U/L 26-192 Roselia l (applies to non-numeric results) [facility] ([facility] ) MB/CK Relative Index 1.95 Normal (applies to non-num ana rosa results) [facility] ([facility] <content>DIAGNOSIS CRITERIA</content>
<content>MMB ng/ml Relative Index (RI)</content>
<content>NON-AMI < or = 5 N/A</content>
<content>GIL ZONE > 5 < or = 4</content>
<content>AMI > 5 > 4</content>
<content></content> Troponin I Laboratory test result Normal (applies to non-n umeric results) [facility] ([facility] <content>Troponin I Reference Interval f or Siemens Aztec LOCI:</content>
<content></content>
<content>99th Percentile= 0.00-0.045 ng/ml</content>
<content></content>
<content>Risk Stratification:</content>
<content><= 0.10 ng/ml Decreased Risk for Adverse Clinical</content>
<content>Events.</content>
<content>0.10-1.50 ng/ml Increased Risk for Adverse Clinical</content>
<content>Events. Evaluation of additional</content>
<content>criterion and/or repeat testing in 2-6</content>
<content>hours is suggested to rule out myocardial</content>
<content>damage.</content>
<content>>= 1.50 ng/ml Indicative of Myocardial Injury.</content>
<content></content> CK-MB Value Mass 1.5 ng/mL Normal (applies to non-numeric results) [facility] ([facility] ID Date Data Source [id number] 09/16/2020 03:14:00 PM EDT [facility] ([facility] Name Value Range Interpretation Code Description Data Leona rce(s) Supporting Document(s) RBC 4.78 10E6/uL 4.20-6.30 [facility] ([facility] NORMAL RANGES Age WBC [...] HCT IS 5% LESS SOURCE FOR DATA: famPlus 1800 OPERATION MANUAL( AUTOMATED BLOOD COUNTS AND [...] >32 mL/min Normal WBC 7.5 10E3/uL 4.1-10.9 [facility] NORMAL RANGES Age WBC RBC [...] HCT IS 5% LESS SOURCE FOR DATA: famPlus 1800 OPERATION MANUAL( AUTOMATED BLOOD COUNTS AND [...] >32 mL/min Normal HGB 12.8 g/dL 12.0-18.[address] [facility] ([facility] [...] HCT IS 5% LESS SOURCE FOR DATA: Nativoo DYN 1800 OPERATION MANUAL( AUTOMATED BLOOD COUNTS [...] mL/min Normal HCT 42.1 % 37.0-51.0 [facility] NORMAL RANGES Age WBC [...] HCT IS 5% LESS SOURCE FOR DATA: famPlus 1800 OPERATION MANUAL( AUTOMATED BLOOD COUNTS AND [...] >32 mL/min Normal MCV 88.1 fL 80.0-97.[address] [facility] ([facility] [...] HCT IS 5% LESS SOURCE FOR DATA: famPlus 1800 OPERATION MANUAL( AUTOMATED BLOOD COUNTS AND [...] >32 mL/min Normal MCH 26.8 pg 26.0-32.[address] [facility] ([facility] NORMAL [...] MCHC 30.4 g/dL 31.0-36.0 Below low normal [facility] NORMAL [...] HCT IS 5% LESS SOURCE FOR DATA: famPlus 1800 OPERATION MANUAL( AUTOMATED BLOOD COUNTS AND [...] >32 mL/min Normal Lym% 24.4 % 10.0-58.[address] [facility] NORMAL RANGES Age WBC [...] HCT IS 5% LESS SOURCE FOR DATA: famPlus 1800 OPERATION MANUAL( AUTOMATED BLOOD COUNTS AND [...] >32 mL/min Normal PLT 325 10E3/uL 140-[address] [facility] NORMAL RANGES Age WBC RBC HGB [...] HCT IS 5% LESS SOURCE FOR DATA: famPlus 1800 OPERATION MANUAL( AUTOMATED BLOOD COUNTS AND [...] RDW-CV 15.6 % 11.5-14.5 Above high normal [facility] NORMAL RANGES Age [...] HCT IS 5% LESS SOURCE FOR DATA: famPlus 1800 OPERATION MANUAL( AUTOMATED BLOOD COUNTS AND [...] >32 mL/min Normal Neut% 69.3 % 37.0-92.0 [facility] ([facility] [...] HCT IS 5% LESS SOURCE FOR DATA: famPlus 1800 OPERATION MANUAL( AUTOMATED BLOOD COUNTS AND [...] >32 mL/min Normal MXD% 6.3 % 0.1-24.[address] [facility] ([facility] NORMAL [...] HCT IS 5% LESS SOURCE FOR DATA: famPlus 1800 OPERATION MANUAL( AUTOMATED BLOOD COUNTS AND [...] >32 mL/min Normal Neut# 5.2 % 2.0-7.[address] [facility] ([facility] NORMAL RANGES Age [...] HCT IS 5% LESS SOURCE FOR DATA: famPlus 1800 OPERATION MANUAL( AUTOMATED BLOOD COUNTS AND [...] >32 mL/min Normal Lym# 1.8 10E3/uL 0.6-4.[address] [facility] NORMAL RANGES Age WBC RBC HGB [...] HCT IS 5% LESS SOURCE FOR DATA: famPlus 1800 OPERATION MANUAL( AUTOMATED BLOOD COUNTS AND [...] >32 mL/min Normal MXD# 0.5 10E3/uL 0.0-1.[address] [facility] ([facility] NORMAL RANGES Age WBC RBC [...] >32 mL/min Normal MPV 11.9 fL 9.0-13.[address] [facility] ([facility] [...] HCT IS 5% LESS SOURCE FOR DATA: famPlus 1800 OPERATION MANUAL( AUTOMATED BLOOD COUNTS AND [...] >32 mL/min Normal ID Date Data Source [id number] 09/16/2020 03:14:00 PM EDT [facility] ([facility] Name Value Range Interpretation Code Description Data Leona rce(s) Supporting Document(s) Glu 170 mg/dL 70-110 Above high normal [facility] NORMAL RANGES Age WBC [...] HCT IS 5% LESS SOURCE FOR DATA: famPlus 1800 OPERATION MANUAL( AUTOMATED BLOOD COUNTS AND [...] >32 mL/min Normal Creat 0.9 mg/dL 0.5-1.0 [facility] ([facility] NORMAL [...] HCT IS 5% LESS SOURCE FOR DATA: famPlus 1800 OPERATION MANUAL( AUTOMATED BLOOD COUNTS AND [...] >32 mL/min Normal BUN 18 mg/dL 8-[address] [facility] ([facility] NORMAL [...] HCT IS 5% LESS SOURCE FOR DATA: famPlus 1800 OPERATION MANUAL( AUTOMATED BLOOD COUNTS AND [...] >32 mL/min Normal Na 139 mmol/L 136-145 [facility] ([facility] NORMAL RANGES Age [...] HCT IS 5% LESS SOURCE FOR DATA: famPlus 1800 OPERATION MANUAL( AUTOMATED BLOOD COUNTS AND [...] above >32 mL/min Normal BUN/Creatinine Ratio 21.5 [facility] ([facility] NORMAL RANGES [...] HCT IS 5% LESS SOURCE FOR DATA: famPlus 1800 OPERATION MANUAL( AUTOMATED BLOOD COUNTS AND [...] mL/min Normal K 4.5 mmol/L 3.5-5.1 [facility] NORMAL RANGES Age WBC RBC [...] HCT IS 5% LESS SOURCE FOR DATA: famPlus 1800 OPERATION MANUAL( AUTOMATED BLOOD COUNTS AND [...] >32 mL/min Normal CL 103.6 mmol/L 98.0-107.[address] [facility] ([facility] NORMAL RANGES Age WBC [...] TP 6.4 g/dL 6.6-8.7 Below low normal [facility] ( [facility] NORMAL RANGES Age WBC [...] >32 mL/min Normal CA 9.7 mg/dL 8.6-10.[address] [facility] NORMAL RANGES Age WBC [...] HCT IS 5% LESS SOURCE FOR DATA: famPlus 1800 OPERATION MANUAL( AUTOMATED BLOOD COUNTS AND [...] HCT IS 5% LESS SOURCE FOR DATA: famPlus 1800 OPERATION MANUAL( AUTOMATED BLOOD COUNTS AND [...] >32 mL/min Normal Globulin 2.2 CALC [facility] ([facility] NORMAL RANGES Age WBC [...] HCT IS 5% LESS SOURCE FOR DATA: famPlus 1800 OPERATION MANUAL( AUTOMATED BLOOD COUNTS AND [...] >32 mL/min Normal A/G Ratio 1.9 [facility] NORMAL [...] HCT IS 5% LESS SOURCE FOR DATA: famPlus 1800 OPERATION MANUAL( AUTOMATED BLOOD COUNTS AND [...] HCT IS 5% LESS SOURCE FOR DATA: famPlus 1800 OPERATION MANUAL( AUTOMATED BLOOD COUNTS AND [...] >32 mL/min Normal Alp 99.2 U/L 35-[address] [facility] ([facility] NORMAL [...] HCT IS 5% LESS SOURCE FOR DATA: famPlus 1800 OPERATION MANUAL( AUTOMATED BLOOD COUNTS AND [...] mL/min Normal Alt (SGPT) 12 U/L 0-[address] [facility] ([facility] NORMAL RANGES [...] HCT IS 5% LESS SOURCE FOR DATA: famPlus 1800 OPERATION MANUAL( AUTOMATED BLOOD COUNTS AND [...] >32 mL/min Normal Tbili 0.16 mg/dL 0.0-1.[address] [facility] ([facility] NORMAL RANGES Age WBC RBC HGB [...] HCT IS 5% LESS SOURCE FOR DATA: famPlus 1800 OPERATION MANUAL( AUTOMATED BLOOD COUNTS AND [...] mL/min Normal Ast (Sgot) 12 U/L 0-40 [facility] ([facility] NORMAL RANGES Age [...] HCT IS 5% LESS SOURCE FOR DATA: famPlus 1800 OPERATION MANUAL( AUTOMATED BLOOD COUNTS AND [...] and above >32 mL/min Normal eGFR Non-Afr. [place] 65 # [facility] ([facility] [...] HCT IS 5% LESS SOURCE FOR DATA: famPlus 1800 OPERATION MANUAL( AUTOMATED BLOOD COUNTS AND [...] HCT IS 5% LESS SOURCE FOR DATA: famPlus 1800 OPERATION MANUAL( AUTOMATED BLOOD COUNTS AND [...] >32 mL/min Normal Anion Gap 19 mmol/L [facility] NORMAL RANGES Age WBC [...] HCT IS 5% LESS SOURCE FOR DATA: famPlus 1800 OPERATION MANUAL( AUTOMATED BLOOD COUNTS AND [...] >32 mL/min Normal ID Date Data Source [id number] 09/16/2020 03:14:00 PM EDT [facility] ([facility] Name Value Range Interpretation Code Description Data Leona rce(s) Supporting Document(s) Hemoglobin A1c/Hemoglobin.total in Blood 6.5 % 4.8-5.6 Above high normal [facility] ([facility] <content>Prediabetes: 5.7 - 6.4</content >
<content>Diabetes: >6.4</content>
<content>Glycemic control for adults with diabetes: <7.0</content>
<content></content> ID Date Data Source [id number] 09/11/2020 10:43:00 AM EDT [facility] ([facility]) Name Value Range Interpretation Code Description Data Leona rce(s) Supporting Document(s) Hemoglobin A1c/Hemoglobin.total in Blood 153 [facility] ([facility]) Glucose [Mass/volume] in Serum or Plasma Laboratory test result [facility] ([facility]) ID Date Data Source [id number] 07/13/2020 05:07:00 PM EDT [facility] ([facility] Name Value Range Interpretation Code Description Data Leona rce(s) Supporting Document(s) Glucose [Mass/volume] in Capillary blood by Glucometer 177 mg/dL 83-110 Above high normal [facility] ([facility] Doctor Notified ID Date Data Source [id number] 07/13/2020 05:07:00 PM EDT [facility] ([facility]) Name Value Range Interpretation Code Description Data Leona rce(s) Supporting Document(s) Glucose [Mass/volume] in Capillary blood by Glucometer 177 83- 110 [facility] ([facility]) ID Date Data Source [id number] 07/13/2020 03:33:00 PM EDT [facility] ([facility] [...] 8-109 Normal (applies to non-numeric results) [facility] Laboratory test finding (navigational concept) 26 mg/dL 8 -26 Normal (applies to non-numeric results) [facility] Laboratory test finding (navigational concept) 1.6 mg/dL 0 .6-1.3 Above high normal [facility] ([facility] Laboratory test finding (navigational concept) 31.0 MM/L 2 3.0-27.0 Above high normal [facility] ([facility] ID Date Data Source [id number] 07/13/2020 03:33:00 PM EDT [facility] ([facility]) Name Value Range Interpretation Code Description Data Leona rce(s) Supporting Document(s) Sodium [Moles/volume] in Blood 138 136-145 [facility] ([facility]) ID Date Data Source [id number] 07/13/2020 03:33:00 PM EDT [facility] ([facility]) Name Value Range Interpretation Code Description Data Leona rce(s) Supporting Document(s) Chloride [Moles/volume] in Blood 100 98-109 [facility] ([facility]) ID Date Data Source [id number] 07/13/2020 03:33:00 PM EDT [facility] ([facility]) Name Value Range Interpretation Code Description Data Leona rce(s) Supporting Document(s) Potassium [Moles/volume] in Blood 4.3 3.5-5.1 [facility] ([facility]) ID Date Data Source [id number] 07/13/2020 03:33:00 PM EDT [facility] ([facility]) Name Value Range Interpretation Code Description Data Leona rce(s) Supporting Document(s) Glucose [Mass/volume] in Blood 229 70-105 [facility] ([facility] ID Date Data Source [id number] 07/13/2020 03:33:00 PM EDT [facility] ([facility]) Name Value Range Interpretation Code Description Data Leona rce(s) Supporting Document(s) Calcium.ionized [Moles/volume] in Blood 4.7 4.5-5.3 [facility] ([facility] [facility]) ID Date Data Source [id number] 07/13/2020 03:33:00 PM EDT [facility] ([facility]) Name Value Range Interpretation Code Description Data Leona rce(s) Supporting Document(s) Carbon dioxide, total [Moles/volume] in Blood 31.0 23.0-27.0 [facility] ([facility]) ID Date Data Source [id number] 07/13/2020 03:33:00 PM EDT [facility] ([facility]) Name Value Range Interpretation Code Description Data Leona rce(s) Supporting Document(s) Urea nitrogen [Mass/volume] in Blood 26 8-26 [facility] ([facility]) ID Date Data Source [id number] 07/13/2020 03:33:00 PM EDT [facility] ([facility]) Name Value Range Interpretation Code Description Data Leona rce(s) Supporting Document(s) Creatinine [Mass/volume] in Blood 1.6 0.6-1.3 [facility] ([facility]) ID Date Data Source [id number] 07/13/2020 03:33:00 PM EDT [facility] ([facility]) Name Value Range Interpretation Code Description Data Leona rce(s) Supporting Document(s) Laboratory test finding (navigational concept) 35.0 % 38.0-51.0 [facility] ([facility]) Laboratory test finding (navigational concept) 229 mg/dL 70-105 [facility] ([facility]) Laboratory test finding (navigational concept) 138 meq/L 136-145 [facility] ([facility]) Laboratory test finding (navigational concept) 4.3 meq/L 3.5-5.1 [facility] ([facility]) Laboratory test finding (navigational concept) 4.7 mg/dL 4.5-5.3 [facility] ([facility]) Laboratory test finding (navigational concept) 100 meq/L 98-109 [facility] ([facility]) Laboratory test finding (navigational concept) 31.0 MM/L 23.0-27.0 [facility] ([facility]) Laboratory test finding (navigational concept) 26 mg/dL 8-26 [facility] ([facility]) Creatinine [Mass/volume] in Serum or Plasma 1.6 mg/dL 0.6-1.3 [facility] ([facility]) ID Date Data Source [id number] 07/13/2020 03:33:00 PM EDT [facility] ([facility]) Name Value Range Interpretation Code Description Data Leona rce(s) Supporting Document(s) Hematocrit [Volume Fraction] of Blood 35.0 38.0-51.0 [facility] ([facility]) ID Date Data Source [id number] 07/13/2020 03:12:00 PM EDT [facility] ([facility] Name Value Range Interpretation Code Description Data Leona rce(s) Supporting Document(s) Glucose [Mass/volume] in Capillary blood by Glucometer 245 mg/dL 83-110 Above high normal [facility] ([facility] ) ID Date Data Source [id number] 07/13/2020 03:12:00 PM EDT [facility] ([facility]) Name Value Range Interpretation Code Description Data Leona rce(s) Supporting Document(s) Glucose [Mass/volume] in Capillary blood by Glucometer 245 mg/dL 83- 110 [facility] ([facility]) ID Date Data Source [id number] 07/05/2020 01:38:00 PM EDT [facility] ([facility] Name Value Range Interpretation Code Description Data Leona rce(s) Supporting Document(s) Appearance, Urine RFX Laboratory test result Nor mal (applies to non-numeric results) [facility] ([facility] ) PH,Urine RFX 6.0 units 5.0-9.0 Normal (applies to non-numeric res ults) [facility] ([facility] Color, Urine RFX Laboratory test result Normal ( applies to non-numeric results) [facility] ([facility] ) Protein, Urine Auto RFX Laboratory test result N ormal (applies to non-numeric results) [facility] ([facility] ) Specific [place] Ur Auto RFX 1.006 1.002-1.035 Nor mal (applies to non-numeric results) [facility] ([facility] ) Glucose, Urine (Ua) Auto RFX Laboratory test result Above high normal [facility] ([facility] Urobilinogen, Urine Auto RFX 0.2 mg/dL 0.0-2.0 Nor mal (applies to non-numeric results) [facility] ([facility] ) Ketone, Urine Auto RFX Laboratory test result No rmal (applies to non-numeric results) [facility] ([facility] ) Nitrite, Urine Auto RFX Laboratory test result N ormal (applies to non-numeric results) [facility] ([facility] ) Bilirubin, Urine Auto RFX Laboratory test result Normal (applies to non- numeric results) [facility] ([facility] ) Leukocyte Esterase Ur Auto RFX Laboratory test result Normal (applies to non- numeric results) [facility] ([facility] ) WBC, Urine Auto RFX 0 /HPF 0-3 Normal (applies to non-nume samantha results) [facility] ([facility] Blood, Urine Blood RFX Laboratory test result Above high n ormal [facility] ([facility] Bacteria, Urine Auto RFX Laboratory test result Normal (applies to non-numeric results) [facility] ([facility] ) RBC, Urine Auto RFX 3 /HPF 0-3 Normal (applies to non-nume samantha results) [facility] ([facility] Squam Epithelial Cell Ur Aurfx 0 /HPF 0-6 N ormal (applies to non-numeric results) [facility] ([facility] ) Hyaline Cast, Urine Auto RFX 0 /LPF 0-1 Normal (appl ies to non-numeric results) [facility] ([facility] ID Date Data Source [id number] 07/05/2020 01:38:00 PM EDT [facility] ([facility] Name Value Range Interpretation Code Description Data Leona rce(s) Supporting Document(s) Benzodiazepines Urine Laboratory test result Nor mal (applies to non-numeric results) [facility] ([facility] ) Barbiturates Urine Laboratory test result Normal (applies to non-numeric results) [facility] ([facility] ) Amphetamines Level Urine Laboratory test result Normal (applies to non-numeric results) [facility] ([facility] ) Cannabinoids Urine Laboratory test result Normal (applies to non-numeric results) [facility] ([facility] ) Cocaine Metabolite Urine Laboratory test result Normal (applies to non-numeric results) [facility] Opiates Urine Laboratory test result Normal (applies t o non-numeric results) [facility] Methadone Urine Laboratory test result Normal (a pplies to non-numeric results) [facility] ([facility] Phencyclidine Urine Laboratory test result Roselia l (applies to non-numeric results) [facility] ([facility] ALL PRESUMPTIVE POSITIVE FINDINGS AR [...] CALL THE LAB. ID Date Data Source [id number] 07/05/2020 01:38:00 PM EDT [facility] ([facility]) Name Value Range Interpretation Code Description Data Leona rce(s) Supporting Document(s) Phencyclidine [Presence] in Urine by Screen method Laboratory test re sult [facility] ([facility]) ID Date Data Source [id number] 07/05/2020 01:38:00 PM EDT [facility] ([facility] ) Name Value Range Interpretation Code Description Data Leona rce(s) Supporting Document(s) Opiates [Presence] in Urine by Screen method Laboratory test result [facility] ([facility]) ID Date Data Source [id number] 07/05/2020 01:38:00 PM EDT [facility] ([facility] Name Value Range Interpretation Code Description Data Leona rce(s) Supporting Document(s) Methadone [Presence] in Urine by Screen method Laboratory test result [facility] ([facility]) ID Date Data Source [id number] 07/05/2020 01:38:00 PM EDT [facility] ([facility]) Name Value Range Interpretation Code Description Data Leona rce(s) Supporting Document(s) Benzoylecgonine [Presence] in Urine by Screen method Laboratory rene t result [facility] ([facility] ) ID Date Data Source [id number] 07/05/2020 01:38:00 PM EDT [facility] ([facility]) Name Value Range Interpretation Code Description Data Leona rce(s) Supporting Document(s) Cannabinoids [Presence] in Urine by Screen method Laboratory test res ult [facility] ([facility] ) ID Date Data Source [id number] 07/05/2020 01:38:00 PM EDT [facility] ([facility]) Name Value Range Interpretation Code Description Data Leona rce(s) Supporting Document(s) Benzodiazepines [Presence] in Urine by Screen method Laboratory rene t result [facility] ([facility]) ID Date Data Source [id number] 07/05/2020 01:38:00 PM EDT [facility] ([facility]) Name Value Range Interpretation Code Description Data Leona rce(s) Supporting Document(s) Barbiturates [Presence] in Urine by Screen method Laboratory test res ult [facility] ([facility] ) ID Date Data Source [id number] 07/05/2020 01:38:00 PM EDT [facility] ([facility]) Name Value Range Interpretation Code Description Data Leona rce(s) Supporting Document(s) Amphetamines [Presence] in Urine by Screen method Laboratory test res ult [facility] ([facility] ) ID Date Data Source [id number] 07/05/2020 01:38:00 PM EDT [facility] ([facility]) Name Value Range Interpretation Code Description Data Leona rce(s) Supporting Document(s) Urine Hyaline Casts (Auto) 0 0-1 [facility] ([facility] ) ID Date Data Source [id number] 07/05/2020 01:38:00 PM EDT [facility] ([facility]) Name Value Range Interpretation Code Description Data Leona rce(s) Supporting Document(s) Urine Color Laboratory test result [facility] T ([facility] ) Urine Appearance Laboratory test result [facility] ([facility] ) pH of Urine 6.0 5.0-9.0 [facility] ([facility] Urine Specific [place] 1.006 1.002-1.035 M [facility] ([facility] ) Urine Protein Laboratory test result [facility] ([facility]) Urine Glucose (Ua) Laboratory test result [facility] ([facility]) Urine Ketones Laboratory test result [facility] ([facility] ) Urine Bilirubin Laboratory test result [facility] ([facility] ) Urine Urobilinogen 0.2 0.0-2.0 [facility] ([facility] Urine Nitrite Laboratory test result [facility] ([facility] ) Urine Leukocyte Esterase Laboratory test result [facility] ([facility] ) Urine WBC (Auto) 0 0-3 [facility] ([facility] ) Urine Blood Laboratory test result [facility] T ([facility] ) Urine RBC (Auto) 3 0-3 [facility] ([facility] Urine Bacteria (Auto) Laboratory test result [facility] ([facility] ) Urine Squamous Epithelial Cells 0 0-6 [facility] ([facility] ) ID Date Data Source [id number] 07/05/2020 12:42:00 PM EDT [facility] Name Value Range Interpretation Code Description Data Leona rce(s) Supporting Document(s) Blood Culture Laboratory test result [facility] ([facility] No growth after 72 hours . All specimens observed for 5 days. Results final at that time. No growth after 48 hours . All specimens observed for 5 days. Results final at that time. No growth after 24 hours . All specimens observed for 5 days. Results final at that time. NO GROWTH AFTER 5 DAYS ID Date Data Source [id number] 07/05/2020 12:42:00 PM EDT [facility] ([facility] Name Value Range Interpretation Code Description Data Leona rce(s) Supporting Document(s) Bacteria identified in Blood by Culture Laboratory test result [facility] ([facility]) ID Date Data Source [id number] 07/05/2020 12:41:00 PM EDT [facility] ([facility] Name Value Range Interpretation Code Description Data Leona rce(s) Supporting Document(s) White Blood Count 6.0 10 4.0-10.0 Normal (applies to non-numeri c results) [facility] ([facility] Red Blood Count 4.57 10 4.00-5.40 Normal (applies to non-numeric results) [facility] ([facility] Hemoglobin 12.5 g/dL 12.0-15.5 Normal (applies to non-numeric resul ts) [facility] ([facility] Hematocrit 41.6 % 36.0-47.0 Normal (applies to non-numeric resul ts) [facility] ([facility] Mean Corpuscular Volume 91.0 fl 80.0-96.0 Normal ( applies to non-numeric results) [facility] ([facility] ) Mean Corpuscular Hemoglobin 27.4 pg 27.0-33.0 Norm al (applies to non-numeric results) [facility] ([facility] ) Red Cell Distribution Width 16.0 % 11.5-14.5 Above high normal [facility] ([facility] Mean Corpuscular HGB Conc 30.0 g/dL 32.0-36.5 Below low normal [facility] ([facility] Neutrophils % 44.0 % 36.0-66.0 Normal (applies to non-numeric re sults) [facility] ([facility] Platelet Count, Automated 272 10 150-450 Normal (applies to non-numeric results) [facility] ([facility] ) [place] % 6.5 % 2.0-8.0 Normal (applies to non-numeric resul ts) [facility] ([facility] Lymph % 43.0 % 24.0-44.0 Normal (applies to non-numeric resul ts) [facility] ([facility] Baso % 0.7 % 0.0-1.0 Normal (applies to non-numeric resul ts) [facility] ([facility] Eos % 5.5 % 0.0-3.0 Above high normal [facility] ([facility] Immature Granulocyte % 0.3 % 0-3.0 Normal (applies to non-n umeric results) [facility] ([facility] Nucleated Red Blood Cell % 0.0 % 0-0 Normal (applies to n on-numeric results) [facility] ([facility] Neutrophils # 2.6 10 1.5-8.5 Normal (applies to non-numeric re sults) [facility] ([facility] [place] # 0.4 10 0.0-0.8 Normal (applies to non-numeric resul ts) [facility] ([facility] Lymph # 2.6 10 1.5-5.0 Normal (applies to non-numeric resul ts) [facility] ([facility] Baso # 0.0 10 0.0-0.2 Normal (applies to non-numeric resul ts) [facility] ([facility] Eos # 0.3 10 0.0-0.5 Normal (applies to non-numeric resul ts) [facility] ([facility] ID Date Data Source [id number] 07/05/2020 12:41:00 PM EDT [facility] ([facility] Name Value Range Interpretation Code Description Data Leona rce(s) Supporting Document(s) Venous PH 7.328 units 7.330-7.430 Below low normal [facility] ([facility] Venous Partial Pressure O2 39.1 mmHg 30.0-50.0 Roselia l (applies to non-numeric results) [facility] ([facility] ) Venous Partial Pressure Co2 56.7 mmHg 38.0-50.0 Above high normal [facility] ([facility] Venous Total Co2 30.8 meq/L 24.0-28.0 Above high normal M [facility] ([facility] Venous Hco3 29.1 meq/L 23.0-27.0 Above high normal [facility] ([facility] Venous Base Excess 2.0 Normal (applies to non-numer ic results) [facility] ([facility] Venous Standard Hco3 25.6 meq/L Normal (applies to non-num ana rosa results) [facility] ([facility] Venous O2 Saturation 69.2 % 60.0-80.0 Normal (applies to non-num ana rosa results) [facility] ([facility] ID Date Data Source [id number] 07/05/2020 12:41:00 PM EDT [facility] ([facility] Name Value Range Interpretation Code Description Data Leona rce(s) Supporting Document(s) Ammonia [Mass/volume] in Blood 30 uMOL/L N ormal (applies to non-numeric results) [facility] ([facility] ) ID Date Data Source [id number] 07/05/2020 12:41:00 PM EDT SHAN[facility] ([facility] Name Value Range Interpretation Code Description Data Leona rce(s) Supporting Document(s) CK-MB Value Mass 1.6 ng/mL Normal (applies to non-numeric results) [facility] ([facility] CPK Creatine Phosphokinase 90 U/L 26-192 Roselia l (applies to non-numeric results) [facility] ([facility] ) MB/CK Relative Index 1.78 Normal (applies to non-num ana rosa results) [facility] <content>DIAGNOSIS CRITERIA</content>
<content>MMB ng/ml Relative Index (RI)</content>
<content>NON-AMI < or = 5 N/A</content>
<content>GIL ZONE > 5 < or = 4</content>
<content>AMI > 5 > 4</content>
<content></content> Troponin I Laboratory test result Normal (applies to non-n umeric results) [facility] ([facility] <content>Troponin I Reference Interval f or Siemens Aztec LOCI:</content>
<content></content>
<content>99th Percentile= 0.00-0.045 ng/ml</content>
<content></content>
<content>Risk Stratification:</content>
<content><= 0.10 ng/ml Decreased Risk for Adverse Clinical</content>
<content>Events.</content>
<content>0.10-1.50 ng/ml Increased Risk for Adverse Clinical</content>
<content>Events. Evaluation of additional</content>
<content>criterion and/or repeat testing in 2-6</content>
<content>hours is suggested to rule out myocardial</content>
<content>damage.</content>
<content>>= 1.50 ng/ml Indicative of Myocardial Injury.</content>
<content></content> ID Date Data Source [id number] 07/05/2020 12:41:00 PM EDT [facility] ([facility] Name Value Range Interpretation Code Description Data Leona rce(s) Supporting Document(s) Ast/Sgot 16 U/L 7-37 Normal (applies to non-numeric resul ts) [facility] ([facility] Alkaline Phosphatase 89 U/L 45-117 Normal (applies to non-num ana rosa results) [facility] ([facility] Alt/SGPT 21 U/L 12-78 Normal (applies to non-numeric resul ts) [facility] ([facility] Bilirubin,Total 0.4 mg/dL 0.2-1.0 Normal (applies to non-numeric results) [facility] ([facility] Bilirubin,Direct Laboratory test result 0.0-0.2 Normal ( applies to non-numeric results) [facility] ([facility] ) Total Protein 7.3 GM/DL 6.4-8.2 Normal (applies to non-numeric re sults) [facility] ([facility] Albumin 4.0 GM/DL 3.2-5.2 Normal (applies to non-numeric resul ts) [facility] ([facility] Albumin/Globulin Ratio 1.2 1.2-2.2 Normal (applies to non-n umeric results) [facility] ([facility] ID Date Data Source [id number] 07/05/2020 12:41:00 PM EDT [facility] ([facility] Name Value Range Interpretation Code Description Data Leona rce(s) Supporting Document(s) Thyrotropin [Units/volume] in Serum or Plasma 7.580 uIU/ML 0. 358-3.740 Above high normal [facility] ([facility] ) ID Date Data Source [id number] 07/05/2020 12:41:00 PM EDT [facility] ([facility] Name Value Range Interpretation Code Description Data Leona rce(s) Supporting Document(s) Blood Culture Laboratory test result [facility] ([facility] No growth after 72 hours . All specimens observed for 5 days. Results final at that time. No growth after 48 hours . All specimens observed for 5 days. Results final at that time. No growth after 24 hours . All specimens observed for 5 days. Results final at that time. NO GROWTH AFTER 5 DAYS ID Date Data Source [id number] 07/05/2020 12:41:00 PM EDT [facility] ([facility] Name Value Range Interpretation Code Description Data Leona rce(s) Supporting Document(s) Glucose, Fasting 113 mg/dL 70-100 Above high normal M [facility] ([facility] Blood Urea Nitrogen 21 mg/dL 7-18 Above high normal [facility] ([facility] Creatinine For GFR 0.89 mg/dL 0.55-1.30 Normal (applies to non -numeric results) [facility] ([facility] Sodium Level 139 meq/L 136-145 Normal (applies to non-numeric res ults) [facility] ([facility] Glomerular Filtration Rate Laboratory test result Normal (applies to non- numeric results) [facility] ) <content>Units are mL/min/1.73 m2</content>
<content></content>
<content>Chronic Kidney Disease Staging per NKF:</content>
<content></content>
<content>Stage I & II GFR >=60 Normal to Mildly Decreased</content>
<content>Stage III GFR 30- 59 Moderately Decreased</content>
<content>Stage IV GFR 15-29 Severely Decreased</content>
<content>Stage V GFR <15 Very Little GFR Left</content>
<content>ESRD GFR <15 on PRINTING TECHNICIAN</content>
<content></content> Potassium Serum 4.4 meq/L 3.5-5.1 Normal (applies to non-numeric results) [facility] ([facility] This specimen has an elevated potassium level but there is NO visible hemolysis noted. Carbon Dioxide Level 29 meq/L 21-32 Normal (applies to non-num ana rosa results) [facility] Chloride Level 106 meq/L 98-107 Normal (applies to non-numeric r esults) [facility] Calcium Level 9.7 mg/dL 8.8-10.2 Normal (applies to non-numeric re sults) [facility] Anion Gap 4 meq/L 8-16 Below low normal [facility] ( [facility] ID Date Data Source [id number] 07/05/2020 12:41:00 PM EDT [facility] ([facility]) Name Value Range Interpretation Code Description Data Leona rce(s) Supporting Document(s) Erythrocyte mean corpuscular hemoglobin concentration [Mass/volume] by Automated count 30.0 32.0-36.5 [facility] ID Date Data Source [id number] 07/05/2020 12:41:00 PM EDT [facility] ([facility]) Name Value Range Interpretation Code Description Data Leona rce(s) Supporting Document(s) Neutrophils [#/volume] in Blood by Automated count 44.0 36.0-66 .0 [facility] [facility] ID Date Data Source [id number] 07/05/2020 12:41:00 PM EDT [facility] ([facility]) Name Value Range Interpretation Code Description Data Leona rce(s) Supporting Document(s) Erythrocyte distribution width [Ratio] by Automated count 16.0 11.5-14.5 [facility] ([facility]) ID Date Data Source [id number] 07/05/2020 12:41:00 PM EDT [facility] ([facility]) Name Value Range Interpretation Code Description Data Leona rce(s) Supporting Document(s) Erythrocyte mean corpuscular hemoglobin [Entitic mass] by Au tomated count 27.4 27.0-33.0 [facility] ([facility] ID Date Data Source [id number] 07/05/2020 12:41:00 PM EDT [facility] ([facility]) Name Value Range Interpretation Code Description Data Leona rce(s) Supporting Document(s) Erythrocyte mean corpuscular volume [Entitic volume] by Auto mated count 91.0 80.0-96.0 [facility] ([facility] ID Date Data Source [id number] 07/05/2020 12:41:00 PM EDT [facility] ([facility]) Name Value Range Interpretation Code Description Data Leona rce(s) Supporting Document(s) Erythrocytes [#/volume] in Blood by Automated count 4.57 4.00-5 .40 [facility] ([facility]) ID Date Data Source [id number] 07/05/2020 12:41:00 PM EDT [facility] ([facility]) Name Value Range Interpretation Code Description Data Leona rce(s) Supporting Document(s) Platelets [#/volume] in Blood by Automated count 272 150-450 [facility] ([facility]) ID Date Data Source [id number] 07/05/2020 12:41:00 PM EDT [facility] ([facility]) Name Value Range Interpretation Code Description Data Leona rce(s) Supporting Document(s) Monocytes/100 leukocytes in Blood by Automated count 6.5 2.0-8 .0 [facility] ([facility]) ID Date Data Source [id number] 07/05/2020 12:41:00 PM EDT [facility] ([facility]) Name Value Range Interpretation Code Description Data Leona rce(s) Supporting Document(s) Eosinophils/100 leukocytes in Blood by Automated count 5.5 0.0 -3.0 [facility] ([facility]) ID Date Data Source [id number] 07/05/2020 12:41:00 PM EDT [facility] ([facility]) Name Value Range Interpretation Code Description Data Leona rce(s) Supporting Document(s) Basophils/100 leukocytes in Blood by Automated count 0.7 0.0-1 .0 [facility] ([facility]) ID Date Data Source [id number] 07/05/2020 12:41:00 PM EDT [facility] ([facility]) Name Value Range Interpretation Code Description Data Leona rce(s) Supporting Document(s) Immature granulocytes/100 leukocytes in Blood by Automated count 0.3 0-3.0 [facility] ([facility]) ID Date Data Source [id number] 07/05/2020 12:41:00 PM EDT [facility] ([facility]) Name Value Range Interpretation Code Description Data Leona rce(s) Supporting Document(s) Nucleated erythrocytes/100 leukocytes [Ratio] in Blood by Au tomated count 0.0 0-0 [facility] ([facility] ID Date Data Source [id number] 07/05/2020 12:41:00 PM EDT [facility] ([facility]) Name Value Range Interpretation Code Description Data Leona rce(s) Supporting Document(s) Neutrophils [#/volume] in Blood by Automated count 2.6 1.5-8.5 [facility] ([facility]) ID Date Data Source [id number] 07/05/2020 12:41:00 PM EDT [facility] ([facility]) Name Value Range Interpretation Code Description Data Leona rce(s) Supporting Document(s) Monocytes [#/volume] in Blood by Automated count 0.4 0.0-0.8 [facility] ([facility]) ID Date Data Source [id number] 07/05/2020 12:41:00 PM EDT [facility] ([facility]) Name Value Range Interpretation Code Description Data Leona rce(s) Supporting Document(s) Hemoglobin [Mass/volume] in Blood 12.5 12.0-15.5 [facility] ([facility]) ID Date Data Source [id number] 07/05/2020 12:41:00 PM EDT [facility] ([facility]) Name Value Range Interpretation Code Description Data Leona rce(s) Supporting Document(s) Leukocytes [#/volume] in Blood by Automated count 6.0 4.0-10.0 [facility] ([facility]) ID Date Data Source [id number] 07/05/2020 12:41:00 PM EDT [facility] ([facility]) Name Value Range Interpretation Code Description Data Leona rce(s) Supporting Document(s) Thyrotropin [Units/volume] in Serum or Plasma 7.580 uIU/ML 0.358-3.74 0 [facility] ([facility]) ID Date Data Source [id number] 07/05/2020 12:41:00 PM EDT [facility] ([facility]) Name Value Range Interpretation Code Description Data Leona rce(s) Supporting Document(s) Aspartate aminotransferase [Enzymatic activity/volume] in Serum or Plasma 16 U/L 7-37 [facility] ([facility] Alkaline phosphatase [Enzymatic activity/volume] in Serum or Plasma 89 U/L 45-117 [facility] ([facility] Alanine aminotransferase [Enzymatic activity/volume] in Seru m or Plasma 21 U/L 12-78 [facility] ([facility]) Bilirubin,Total 0.4 mg/dL 0.2-1.0 [facility] ([facility]) Bilirubin,Direct Laboratory test result 0.0-0.2 [facility] ([facility]) Albumin [Mass/volume] in Serum or Plasma 4.0 GM/DL 3.2-5.2 [facility] ([facility]) Protein [Mass/volume] in Serum or Plasma 7.3 GM/DL 6.4-8.2 [facility] ([facility]) Albumin/Globulin Ratio 1.2 1.2-2.2 [facility] ([facility]) ID Date Data Source [id number] 07/05/2020 12:41:00 PM EDT [facility] ([facility]) Name Value Range Interpretation Code Description Data Leona rce(s) Supporting Document(s) Red Blood Count 4.57 10 4.00-5.40 [facility] ([facility]) White Blood Count 6.0 10 4.0-10.0 [facility] ([facility]) Hemoglobin 12.5 g/dL 12.0-15.5 [facility] ([facility]) Hematocrit [Volume Fraction] of Blood by Automated count 41.6 % 3 6.0-47.0 [facility] ([facility]) Mean Corpuscular Hemoglobin 27.4 pg 27.0-33.0 [facility] ([facility]) Mean Corpuscular Volume 91.0 fl 80.0-96.0 M [facility] ([facility]) Mean Corpuscular HGB Conc 30.0 g/dL 32.0-36.5 [facility] ([facility]) Red Cell Distribution Width 16.0 % 11.5-14.5 [facility] ([facility]) Neutrophils % 44.0 % 36.0-66.0 [facility] ([facility] Platelet Count, Automated 272 10 150-450 [facility] ([facility]) Lymphocytes/100 leukocytes in Blood by Automated count 43.0 % 24. 0-44.0 [facility] ([facility]) [place] % 6.5 % 2.0-8.0 [facility] ([facility] Eos % 5.5 % 0.0-3.0 [facility] ([facility]) Baso % 0.7 % 0.0-1.0 [facility] ([facility]) Immature Granulocyte % 0.3 % 0-3.0 [facility] ([facility]) Neutrophils # 2.6 10 1.5-8.5 [facility] ([facility]) Nucleated Red Blood Cell % 0.0 % 0-0 [facility] ([facility]) Lymph # 2.6 10 1.5-5.0 [facility] ([facility]) [place] # 0.4 10 0.0-0.8 [facility] ([facility] Baso # 0.0 10 0.0-0.2 [facility] ([facility] Eos # 0.3 10 0.0-0.5 [facility] ([facility]) ID Date Data Source [id number] 07/05/2020 12:41:00 PM EDT [facility] ([facility]) Name Value Range Interpretation Code Description Data Leona rce(s) Supporting Document(s) Lymphocytes [#/volume] in Blood by Automated count 2.6 1.5-5.0 [facility] ([facility]) ID Date Data Source [id number] 07/05/2020 12:41:00 PM EDT [facility] ([facility]) Name Value Range Interpretation Code Description Data Leona rce(s) Supporting Document(s) Thyrotropin [Units/volume] in Serum or Plasma by Detec tion limit <= 0.005 mIU/L 7.580 0.358-3.740 [facility] ([facility] ID Date Data Source [id number] 07/05/2020 12:41:00 PM EDT [facility] ([facility]) Name Value Range Interpretation Code Description Data Leoan rce(s) Supporting Document(s) Troponin I.cardiac [Mass/volume] in Serum or Plasma Laboratory test result [facility] ([facility]) ID Date Data Source [id number] 07/05/2020 12:41:00 PM EDT [facility] ([facility]) Name Value Range Interpretation Code Description Data Leona rce(s) Supporting Document(s) Ammonia [Moles/volume] in Plasma 30 [facility] ([facility]) ID Date Data Source [id number] 07/05/2020 12:41:00 PM EDT [facility] ([facility]) Name Value Range Interpretation Code Description Data Leona rce(s) Supporting Document(s) Bilirubin.direct [Mass/volume] in Serum or Plasma Laboratory test result 0.0-0.2 [facility] ([facility]) ID Date Data Source [id number] 07/05/2020 12:41:00 PM EDT [facility] ([facility]) Name Value Range Interpretation Code Description Data Leona rce(s) Supporting Document(s) Creatine kinase.MB/Creatine kinase.total [Pure catalytic fraction] in Serum or Plasma by calculation 1.78 [facility] ([facility]) ID Date Data Source [id number] 07/05/2020 12:41:00 PM EDT [facility] ([facility]) Name Value Range Interpretation Code Description Data Leona rce(s) Supporting Document(s) Creatine kinase.MB [Mass/volume] in Serum or Plasma 1.6 [facility] ([facility]) ID Date Data Source [id number] 07/05/2020 12:41:00 PM EDT [facility] ([facility]) Name Value Range Interpretation Code Description Data Leona rce(s) Supporting Document(s) Creatine kinase [Enzymatic activity/volume] in Serum or Plasma 90 26-192 [facility] ([facility]) ID Date Data Source [id number] 07/05/2020 12:41:00 PM EDT [facility] ([facility]) Name Value Range Interpretation Code Description Data Leona rce(s) Supporting Document(s) Calcium [Moles/volume] in Serum or Plasma 9.7 8.8-10.2 [facility] ([facility]) ID Date Data Source [id number] 07/05/2020 12:41:00 PM EDT [facility] ([facility]) Name Value Range Interpretation Code Description Data Leona rce(s) Supporting Document(s) Anion gap 3 in Serum or Plasma 4 8-16 [facility] ([facility]) ID Date Data Source [id number] 07/05/2020 12:41:00 PM EDT [facility] ([facility]) Name Value Range Interpretation Code Description Data Leona rce(s) Supporting Document(s) Carbon dioxide, total [Moles/volume] in Serum or Plasma 29 21 -32 [facility] ([facility]) ID Date Data Source [id number] 07/05/2020 12:41:00 PM EDT [facility] ([facility]) Name Value Range Interpretation Code Description Data Leona rce(s) Supporting Document(s) Chloride [Moles/volume] in Serum or Plasma 106 98-107 [facility] ([facility]) ID Date Data Source [id number] 07/05/2020 12:41:00 PM EDT [facility] ([facility]) Name Value Range Interpretation Code Description Data Leona rce(s) Supporting Document(s) Potassium [Moles/volume] in Serum or Plasma 4.4 3.5-5.1 [facility] ([facility]) ID Date Data Source [id number] 07/05/2020 12:41:00 PM EDT [facility] ([facility]) Name Value Range Interpretation Code Description Data Leona rce(s) Supporting Document(s) Sodium [Moles/volume] in Serum or Plasma 139 136-145 [facility] ([facility]) ID Date Data Source [id number] 07/05/2020 12:41:00 PM EDT [facility] ([facility]) Name Value Range Interpretation Code Description Data Leona rce(s) Supporting Document(s) Glomerular filtration rate/1.73 sq M.pre dicted [Volume Rate/Area] in Serum or Plasma by Creatinine-based formula (MDRD) Laboratory test result [facility] ([facility]) ID Date Data Source [id number] 07/05/2020 12:41:00 PM EDT [facility] ([facility]) Name Value Range Interpretation Code Description Data Leona rce(s) Supporting Document(s) Creatinine [Mass/volume] in Serum or Plasma 0.89 0.55-1.30 [facility] ([facility]) ID Date Data Source [id number] 07/05/2020 12:41:00 PM EDT [facility] ([facility]) Name Value Range Interpretation Code Description Data Leona rce(s) Supporting Document(s) Urea nitrogen [Mass/volume] in Serum or Plasma 21 7-18 [facility] ([facility]) ID Date Data Source [id number] 07/05/2020 12:41:00 PM EDT [facility] ([facility]) Name Value Range Interpretation Code Description Data Leona rce(s) Supporting Document(s) Glucose [Mass/volume] in Serum or Plasma 113 70-100 [facility] ([facility]) ID Date Data Source [id number] 07/05/2020 12:41:00 PM EDT [facility] ([facility]) Name Value Range Interpretation Code Description Data Leona rce(s) Supporting Document(s) Oxygen saturation in Venous blood 69.2 60.0-80.0 [facility] ([facility]) ID Date Data Source [id number] 07/05/2020 12:41:00 PM EDT [facility] ([facility]) Name Value Range Interpretation Code Description Data Leona rce(s) Supporting Document(s) Bicarbonate [Moles/volume] standard in Venous blood 25.6 [facility] ([facility]) ID Date Data Source [id number] 07/05/2020 12:41:00 PM EDT [facility] ([facility]) Name Value Range Interpretation Code Description Data Leona rce(s) Supporting Document(s) Base excess in Venous blood by calculation 2.0 [facility] ([facility]) ID Date Data Source [id number] 07/05/2020 12:41:00 PM EDT [facility] ([facility]) Name Value Range Interpretation Code Description Data Leona rce(s) Supporting Document(s) Bicarbonate [Moles/volume] in Venous blood 29.1 23.0-27.0 [facility] ([facility]) ID Date Data Source [id number] 07/05/2020 12:41:00 PM EDT [facility] ([facility]) Name Value Range Interpretation Code Description Data Leona rce(s) Supporting Document(s) Carbon dioxide, total [Moles/volume] in Venous blood by calc ulation 30.8 24.0-28.0 [facility] ([facility]) ID Date Data Source [id number] 07/05/2020 12:41:00 PM EDT [facility] ([facility]) Name Value Range Interpretation Code Description Data Leona rce(s) Supporting Document(s) Oxygen [Partial pressure] in Venous blood 39.1 30.0-50.0 [facility] ([facility]) ID Date Data Source [id number] 07/05/2020 12:41:00 PM EDT [facility] ([facility]) Name Value Range Interpretation Code Description Data Leona rce(s) Supporting Document(s) Carbon dioxide [Partial pressure] in Venous blood 56.7 38.0-50. 0 [facility] ([facility]) ID Date Data Source [id number] 07/05/2020 12:41:00 PM EDT [facility] ([facility]) Name Value Range Interpretation Code Description Data Leona rce(s) Supporting Document(s) pH of Venous blood 7.328 7.330-7.430 [facility] ([facility]) ID Date Data Source [id number] 07/05/2020 12:41:00 PM EDT [facility] ([facility]) Name Value Range Interpretation Code Description Data Leona rce(s) Supporting Document(s) Basophils [#/volume] in Blood by Automated count 0.0 0.0-0.2 [facility] ([facility]) ID Date Data Source [id number] 07/05/2020 12:41:00 PM EDT [facility] ([facility]) Name Value Range Interpretation Code Description Data Leona rce(s) Supporting Document(s) Bilirubin.total [Mass/volume] in Serum or Plasma 0.4 0.2-1.0 [facility] ([facility]) ID Date Data Source [id number] 07/05/2020 12:41:00 PM EDT [facility] ([facility]) Name Value Range Interpretation Code Description Data Leona rce(s) Supporting Document(s) Eosinophils [#/volume] in Blood by Automated count 0.3 0.0-0.5 [facility] ([facility]) ID Date Data Source [id number] 07/03/2020 12:29:00 AM EDT [facility] Name Value Range Interpretation Code Description Data Leona rce(s) Supporting Document(s) SARS-CoV-2 (COVID 19) NEGATIVE - SARS-CoV-2 (COVID19) [facility] This lab was ordered by [facility] a nd reported by [facility]. ID Date Data Source [id number] 07/02/2020 10:47:00 PM EDT [facility] ([facility] Name Value Range Interpretation Code Description Data Leona rce(s) Supporting Document(s) Acetaminophen [Mass/volume] in Serum or Plasma Laboratory test r esult 10.0-30.0 [facility] ([facility] ID Date Data Source [id number] 07/02/2020 10:47:00 PM EDT [facility] ([facility]) Name Value Range Interpretation Code Description Data Leona rce(s) Supporting Document(s) Salicylates [Mass/volume] in Serum or Plasma Laboratory test result 5.0-30.0 [facility] ([facility]) ID Date Data Source [id number] 07/02/2020 10:47:00 PM EDT [facility] ([facility]) Name Value Range Interpretation Code Description Data Leona rce(s) Supporting Document(s) Magnesium [Mass/volume] in Serum or Plasma 2.1 1.8-2.4 [facility] ([facility] ID Date Data Source [id number] 07/02/2020 10:47:00 PM EDT [facility] ([facility] Name Value Range Interpretation Code Description Data Leona rce(s) Supporting Document(s) Ethanol [Presence] in Serum or Plasma Laboratory test result 0.000-0. 010 [facility] ([facility]) ID Date Data Source [id number] 07/02/2020 10:30:00 PM EDT [facility] ([facility] Name Value Range Interpretation Code Description Data Leona rce(s) Supporting Document(s) pH of Arterial blood 7.375 7.350-7.450 [facility] ([facility]) ID Date Data Source [id number] 07/02/2020 10:30:00 PM EDT [facility] ([facility]) Name Value Range Interpretation Code Description Data Leona rce(s) Supporting Document(s) Laboratory test finding (navigational concept) 27.0 23.0-27.0 [facility] ([facility]) ID Date Data Source [id number] 07/02/2020 10:30:00 PM EDT [facility] ([facility]) Name Value Range Interpretation Code Description Data Leona rce(s) Supporting Document(s) Carbon dioxide [Partial pressure] in Arterial blood 43.7 35.0-4 5.0 [facility] ([facility]) ID Date Data Source [id number] 07/02/2020 10:30:00 PM EDT [facility] ([facility]) Name Value Range Interpretation Code Description Data Leona rce(s) Supporting Document(s) Oxygen [Partial pressure] in Arterial blood 129.0 80-105 [facility] ([facility]) ID Date Data Source [id number] 07/02/2020 10:30:00 PM EDT [facility] ([facility]) Name Value Range Interpretation Code Description Data Leona rce(s) Supporting Document(s) Bicarbonate [Moles/volume] in Arterial blood 25.5 22.0-26.0 [facility] ([facility]) ID Date Data Source [id number] 07/02/2020 10:30:00 PM EDT [facility] ([facility]) Name Value Range Interpretation Code Description Data Leona rce(s) Supporting Document(s) Base excess standard in Arterial blood by calculation 0.0 [facility] ID Date Data Source [id number] 07/02/2020 10:30:00 PM EDT [facility] ([facility]) Name Value Range Interpretation Code Description Data Leona rce(s) Supporting Document(s) Oxygen saturation Calculated from oxygen partial pressure in Arterial blood 99 95-98 [facility] ID Date Data Source [id number] 07/02/2020 09:48:00 PM EDT [facility] ([facility]) Name Value Range Interpretation Code Description Data Leona rce(s) Supporting Document(s) Urine Mucus (Auto) Laboratory test result [facility] ([facility]) ID Date Data Source [id number] 07/02/2020 09:48:00 PM EDT [facility] ([facility]) Name Value Range Interpretation Code Description Data Leoan rce(s) Supporting Document(s) Hemoglobin A1c/Hemoglobin.total in Blood 7.7 [facility] ([facility]) ID Date Data Source [id number] 07/02/2020 09:48:00 PM EDT [facility] ([facility]) Name Value Range Interpretation Code Description Data Leona rce(s) Supporting Document(s) Glucose mean value [Mass/volume] in Blood Estimated fr om glycated hemoglobin 174 60-110 [facility] ([facility]) ID Date Data Source [id number] 06/18/2020 07:51:00 PM EDT [facility] ID Date Data Source [id number] 06/18/2020 07:25:00 PM EDT [facility] Name Value Range Interpretation Code Description Data Leona rce(s) Supporting Document(s) Lipoprotein lipase [Enzymatic activity/volume] in Serum or P lasma 311 U/L 73-393 Normal (applies to non-numeric results) [facility] ([facility] ID Date Data Source [id number] 06/18/2020 07:25:00 PM EDT [facility] Name Value Range Interpretation Code Description Data Leona rce(s) Supporting Document(s) Alt/SGPT 22 U/L 12-78 Normal (applies to non-numeric resul ts) [facility] ([facility] Ast/Sgot 14 U/L 7-37 Normal (applies to non-numeric resul ts) [facility] ([facility] Alkaline Phosphatase 95 U/L 45-117 Normal (applies to non-num ana rosa results) [facility] ([facility] Bilirubin,Total 0.3 mg/dL 0.2-1.0 Normal (applies to non-numeric results) [facility] ([facility] Bilirubin,Direct 0.1 mg/dL 0.0-0.2 Normal (applies to non-numeric results) [facility] ([facility] Total Protein 7.2 GM/DL 6.4-8.2 Normal (applies to non-numeric re sults) [facility] ([facility] Albumin 3.9 GM/DL 3.2-5.2 Normal (applies to non-numeric resul ts) [facility] ([facility] Albumin/Globulin Ratio 1.2 1.2-2.2 Normal (applies to non-n umeric results) [facility] ([facility] ID Date Data Source [id number] 06/18/2020 07:25:00 PM EDT [facility] ([facility] Name Value Range Interpretation Code Description Data Leona rce(s) Supporting Document(s) White Blood Count 7.3 10 4.0-10.0 Normal (applies to non-numeri c results) [facility] ([facility] Red Blood Count 4.46 10 4.00-5.40 Normal (applies to non-numeric results) [facility] ([facility] Mean Corpuscular Volume 88.6 fl 80.0-96.0 Normal ( applies to non-numeric results) [facility] ([facility] ) Hemoglobin 12.0 g/dL 12.0-15.5 Normal (applies to non-numeric resul ts) [facility] ([facility] Hematocrit 39.5 % 36.0-47.0 Normal (applies to non-numeric resul ts) [facility] ([facility] Mean Corpuscular HGB Conc 30.4 g/dL 32.0-36.5 Below low normal [facility] ([facility] Mean Corpuscular Hemoglobin 26.9 pg 27.0-33.0 Below low normal [facility] ([facility] Red Cell Distribution Width 16.5 % 11.5-14.5 Above high normal [facility] ([facility] Lymph % 38.5 % 24.0-44.0 Normal (applies to non-numeric resul ts) [facility] ([facility] Platelet Count, Automated 328 10 150-450 Normal (applies to non-numeric results) [facility] ([facility] ) Neutrophils % 49.9 % 36.0-66.0 Normal (applies to non-numeric re sults) [facility] ([facility] Eos % 5.1 % 0.0-3.0 Above high normal [facility] ([facility] [place] % 5.8 % 2.0-8.0 Normal (applies to non-numeric resul ts) [facility] ([facility] Immature Granulocyte % 0.4 % 0-3.0 Normal (applies to non-n umeric results) [facility] ([facility] Nucleated Red Blood Cell % 0.0 % 0-0 Normal (applies to n on-numeric results) [facility] ([facility] Baso % 0.3 % 0.0-1.0 Normal (applies to non-numeric resul ts) [facility] ([facility] Neutrophils # 3.6 10 1.5-8.5 Normal (applies to non-numeric re sults) [facility] ([facility] [place] # 0.4 10 0.0-0.8 Normal (applies to non-numeric resul ts) [facility] ([facility] Lymph # 2.8 10 1.5-5.0 Normal (applies to non-numeric resul ts) [facility] ([facility] Baso # 0.0 10 0.0-0.2 Normal (applies to non-numeric resul ts) [facility] ([facility] Eos # 0.4 10 0.0-0.5 Normal (applies to non-numeric resul ts) [facility] ([facility] ID Date Data Source [id number] 06/18/2020 07:25:00 PM EDT [facility] ([facility]) Name Value Range Interpretation Code Description Data Leona rce(s) Supporting Document(s) Lipase [Enzymatic activity/volume] in Serum or Plasma 311 73-3 93 [facility] ([facility]) ID Date Data Source [id number] 05/24/2020 02:23:00 PM EDT [facility] ([facility] Name Value Range Interpretation Code Description Data Leona rce(s) Supporting Document(s) Glucose [Mass/volume] in Serum or Plasma 206 mg/dL 65-99 Above high normal [facility] ([facility] BUN 20 mg/dL 8-27 [facility] ([facility] eGFR If NonAfricn Am 62 mL/min/1.73 [facility] ([facility] Creatinine [Mass/volume] in Serum or Plasma 0.94 mg/dL 0.57-1.00 [facility] ([facility] eGFR If Africn Am 71 mL/min/1.73 [facility] ([facility] Urea nitrogen/Creatinine [Mass Ratio] in Serum or Plasma 21 1 2-28 [facility] ([facility] Potassium [Moles/volume] in Serum or Plasma 4.6 mmol/L 3.5-5.2 [facility] ([facility] Sodium [Moles/volume] in Serum or Plasma 136 mmol/L 134-144 [facility] ([facility] Chloride [Moles/volume] in Serum or Plasma 94 mmol/L 96-106 Belo w low normal [facility] ([facility] Carbon dioxide, total [Moles/volume] in Serum or Plasma 28 mmol/L 20 -29 [facility] ([facility] Calcium [Mass/volume] in Serum or Plasma 9.6 mg/dL 8.7-10.3 [facility] ([facility] ID Date Data Source [id number] 05/19/2020 04:52:00 AM EDT [facility] ([facility]) Name Value Range Interpretation Code Description Data Leona rce(s) Supporting Document(s) Folate [Mass/volume] in Serum or Plasma 16.8 [facility] ([facility] ) ID Date Data Source [id number] 05/19/2020 04:52:00 AM EDT [facility] ([facility]) Name Value Range Interpretation Code Description Data Leona rce(s) Supporting Document(s) Cobalamin (Vitamin B12) [Mass/volume] in Serum or Plasma 367 2 47-911 [facility] ([facility]) ID Date Data Source [id number] 05/17/2020 11:49:00 PM EDT [facility] ([facility]) Name Value Range Interpretation Code Description Data Leona rce(s) Supporting Document(s) Bacteria [Presence] in Urine by Automated Laboratory test result [facility] ([facility] ) ID Date Data Source [id number] 05/17/2020 11:49:00 PM EDT [facility] ([facility] ) Name Value Range Interpretation Code Description Data Leona rce(s) Supporting Document(s) pH of Urine by Automated test strip 8.0 5.0-9.0 [facility] ([facility] ) ID Date Data Source [id number] 05/17/2020 11:49:00 PM EDT [facility] ([facility] ) Name Value Range Interpretation Code Description Data Leona rce(s) Supporting Document(s) Ketones [Presence] in Urine by Automated test strip Laboratory test result [facility] ([facility] ) ID Date Data Source [id number] 05/17/2020 11:49:00 PM EDT [facility] ([facility]) Name Value Range Interpretation Code Description Data Leona rce(s) Supporting Document(s) Erythrocytes [#/volume] in Urine by Automated count 0 0-3 [facility] ([facility] ) ID Date Data Source [id number] 05/17/2020 11:49:00 PM EDT [facility] ([facility] ) Name Value Range Interpretation Code Description Data Leona rce(s) Supporting Document(s) Appearance of Urine Laboratory test result [facility] ([facility] ) ID Date Data Source [id number] 05/17/2020 11:49:00 PM EDT [facility] ([facility] ) Name Value Range Interpretation Code Description Data Leona rce(s) Supporting Document(s) Glucose [Presence] in Urine by Automated test strip Laboratory test result [facility] ([facility] ) ID Date Data Source [id number] 05/17/2020 11:49:00 PM EDT [facility] ([facility] ) Name Value Range Interpretation Code Description Data Leona rce(s) Supporting Document(s) Hemoglobin [Presence] in Urine by Automated test strip Laborator y test result [facility] ([facility] ) ID Date Data Source [id number] 05/17/2020 11:49:00 PM EDT [facility] ([facility] ) Name Value Range Interpretation Code Description Data Leona rce(s) Supporting Document(s) Color of Urine by Auto Laboratory test result [facility] ([facility] ) ID Date Data Source [id number] 05/17/2020 11:49:00 PM EDT [facility] ([facility] ) Name Value Range Interpretation Code Description Data Leona rce(s) Supporting Document(s) Nitrite [Presence] in Urine by Automated test strip Laboratory test result [facility] ([facility]) ID Date Data Source [id number] 05/17/2020 11:49:00 PM EDT [facility] ([facility] Name Value Range Interpretation Code Description Data Leona rce(s) Supporting Document(s) Sodium [Moles/volume] in Urine 97 [facility] ([facility]) ID Date Data Source [id number] 05/17/2020 11:49:00 PM EDT [facility] ([facility] Name Value Range Interpretation Code Description Data Leona rce(s) Supporting Document(s) Specific gravity of Urine by Automated test strip 1.011 1.002-1. 035 [facility] ([facility] ) ID Date Data Source [id number] 05/17/2020 11:49:00 PM EDT [facility] ([facility]) Name Value Range Interpretation Code Description Data Leona rce(s) Supporting Document(s) Urea nitrogen [Mass/volume] in Urine 497 [facility] ([facility]) ID Date Data Source [id number] 05/17/2020 11:49:00 PM EDT [facility] ([facility]) Name Value Range Interpretation Code Description Data Leona rce(s) Supporting Document(s) Urobilinogen [Presence] in Urine by Automated test strip 0.2 0 .0-2.0 [facility] ([facility]) ID Date Data Source [id number] 05/17/2020 11:49:00 PM EDT [facility] ([facility]) Name Value Range Interpretation Code Description Data Leona rce(s) Supporting Document(s) Epithelial cells.squamous [#/area] in Urine sediment by Automate d count 0 0-6 [facility] ([facility]) ID Date Data Source [id number] 05/17/2020 11:49:00 PM EDT [facility] ([facility]) Name Value Range Interpretation Code Description Data Leona rce(s) Supporting Document(s) Leukocytes [#/area] in Urine sediment by Automated count 0 0 -3 [facility] ([facility]) ID Date Data Source [id number] 05/17/2020 11:49:00 PM EDT [facility] ([facility]) Name Value Range Interpretation Code Description Data Leona rce(s) Supporting Document(s) Protein [Presence] in Urine by Automated test strip Laboratory test result [facility] ([facility]) ID Date Data Source [id number] 05/17/2020 11:49:00 PM EDT [facility] ([facility]) Name Value Range Interpretation Code Description Data Leona rce(s) Supporting Document(s) Potassium [Moles/volume] in Urine 37.2 [facility] ([facility]) ID Date Data Source [id number] 05/17/2020 11:49:00 PM EDT [facility] ([facility]) Name Value Range Interpretation Code Description Data Leona rce(s) Supporting Document(s) Bilirubin.total [Presence] in Urine by Automated test strip Laboratory test result [facility] ([facility]) ID Date Data Source [id number] 05/17/2020 11:49:00 PM EDT [facility] ([facility]) Name Value Range Interpretation Code Description Data Leona rce(s) Supporting Document(s) Urine Hyaline Casts (Auto) 0 0-1 [facility] ([facility]) ID Date Data Source [id number] 05/17/2020 11:49:00 PM EDT [facility] ([facility]) Name Value Range Interpretation Code Description Data Leona rce(s) Supporting Document(s) Creatinine [Mass/volume] in Urine 36.3 [facility] ([facility]) ID Date Data Source [id number] 05/17/2020 11:49:00 PM EDT [facility] ([facility]) Name Value Range Interpretation Code Description Data Leona rce(s) Supporting Document(s) Leukocyte esterase [Presence] in Urine by Automated te st strip Laboratory test result [facility] ([facility]) ID Date Data Source [id number] 05/17/2020 09:46:00 PM EDT [facility] ([facility]) Name Value Range Interpretation Code Description Data Leona rce(s) Supporting Document(s) Glucose [Mass/volume] in Serum or Plasma 46 [facility] ([facility]) ID Date Data Source [id number] 05/17/2020 06:26:00 PM EDT [facility] ([facility]) Name Value Range Interpretation Code Description Data Leona rce(s) Supporting Document(s) Sars coronavirus 2 Rna [Presence] in Res piratory specimen by Daniela with probe detection Laboratory test result [facility] ([facility]) ID Date Data Source [id number] 05/17/2020 06:26:00 PM EDT [facility] ([facility]) Name Value Range Interpretation Code Description Data Leona rce(s) Supporting Document(s) Influenza virus B RNA [Presence] in Naso pharynx by Probe and target amplification method Laboratory test result [facility] ([facility]) ID Date Data Source [id number] 05/17/2020 06:26:00 PM EDT [facility] ([facility]) Name Value Range Interpretation Code Description Data Leona rce(s) Supporting Document(s) Respiratory syncytial virus RNA [Presenc e] in Nasopharynx by Probe and target amplification method Laboratory test result [facility] ([facility]) ID Date Data Source [id number] 05/17/2020 06:26:00 PM EDT [facility] ([facility]) Name Value Range Interpretation Code Description Data Leona rce(s) Supporting Document(s) Influenza virus A RNA [Presence] in Naso pharynx by Probe and target amplification method Laboratory test result [facility] ([facility]) ID Date Data Source [id number] 05/17/2020 06:26:00 PM EDT [facility] Name Value Range Interpretation Code Description Data Leona rce(s) Supporting Document(s) SARS coronavirus 2 RNA [Presence] in Res piratory specimen by DANIELA with probe detection NEGATIVE [facility] This lab was ordered by [facility] a nd reported by [facility]. ID Date Data Source [id number] 05/17/2020 06:02:00 PM EDT [facility] ([facility] Name Value Range Interpretation Code Description Data Leona rce(s) Supporting Document(s) Glucose [Mass/volume] in Capillary blood by Glucometer 149 mg/dL 83-110 Above high normal [facility] ([facility] ) ID Date Data Source [id number] 05/17/2020 04:56:00 PM EDT [facility] ([facility] Name Value Range Interpretation Code Description Data Leona rce(s) Supporting Document(s) Laboratory test finding (navigational concept) 0.01 ng/mL 0 .00-0.08 Normal (applies to non-numeric results) [facility] ([facility] ID Date Data Source [id number] 05/17/2020 04:56:00 PM EDT [facility] ([facility]) Name Value Range Interpretation Code Description Data Leona rce(s) Supporting Document(s) Troponin I.cardiac [Mass/volume] in Blood 0.01 0.00-0.08 [facility] ([facility]) ID Date Data Source [id number] 05/17/2020 04:54:00 PM EDT [facility] ([facility] Name Value Range Interpretation Code Description Data Leona rce(s) Supporting Document(s) Thyrotropin [Units/volume] in Serum or Plasma 3.770 uIU/ML 0. 358-3.740 Above high normal [facility] ([facility] ) ID Date Data Source [id number] 05/17/2020 04:54:00 PM EDT [facility] ([facility] Name Value Range Interpretation Code Description Data Leona rce(s) Supporting Document(s) Glucose, Fasting 78 mg/dL 70-100 Normal (applies to non-numeric results) [facility] ([facility] Creatinine For GFR 1.31 mg/dL 0.55-1.30 Above high normal [facility] ([facility] Blood Urea Nitrogen 27 mg/dL 7-18 Above high normal [facility] ([facility] Sodium Level 135 meq/L 136-145 Below low normal [facility] ([facility] Glomerular Filtration Rate 42.7 Normal (applies to n on-numeric results) [facility] <content>Units are mL/min/1.73 m2</content>
<content></content>
<content>Chronic Kidney Disease Staging per NKF:</content>
<content></content>
<content>Stage I & II GFR >=60 Normal to Mildly Decreased</content>
<content>Stage III GFR 30- 59 Moderately Decreased</content>
<content>Stage IV GFR 15-29 Severely Decreased</content>
<content>Stage V GFR <15 Very Little GFR Left</content>
<content>ESRD GFR <15 on PRINTING TECHNICIAN</content>
<content></content> Chloride Level 102 meq/L 98-107 Normal (applies to non-numeric r esults) [facility] ([facility] Potassium Serum 5.3 meq/L 3.5-5.1 Above high normal [facility] ([facility] Testing was performed on a hemolysed spe cimen. Suggest recollection of specimen for more accurate test results. Carbon Dioxide Level 29 meq/L 21-32 Normal (applies to non-num ana rosa results) [facility] ([facility] Anion Gap 4 meq/L 8-16 Below low normal [facility] ( [facility] Calcium Level 10.1 mg/dL 8.8-10.2 Normal (applies to non-numeric re sults) [facility] ([facility] ID Date Data Source [id number] 05/17/2020 04:54:00 PM EDT [facility] ([facility] Name Value Range Interpretation Code Description Data Leona rce(s) Supporting Document(s) Ast/Sgot 55 U/L 7-37 Above high normal [facility] ([facility] Alt/SGPT 24 U/L 12-78 Normal (applies to non-numeric resul ts) [facility] ([facility] Bilirubin,Total 0.3 mg/dL 0.2-1.0 Normal (applies to non-numeric results) [facility] ([facility] Alkaline Phosphatase 100 U/L 45-117 Normal (applies to non-num ana rosa results) [facility] ([facility] Total Protein 9.0 GM/DL 6.4-8.2 Above high normal [facility] ([facility] Bilirubin,Direct Laboratory test result 0.0-0.2 Normal ( applies to non-numeric results) [facility] ([facility] ) Albumin/Globulin Ratio 1.0 1.2-2.2 Below low normal [facility] ([facility] Albumin 4.6 GM/DL 3.2-5.2 Normal (applies to non-numeric resul ts) [facility] ([facility] ID Date Data Source [id number] 05/17/2020 04:54:00 PM EDT [facility] ([facility] Name Value Range Interpretation Code Description Data Leona rce(s) Supporting Document(s) White Blood Count 13.1 10 4.0-10.0 Above high normal [facility] ([facility] Red Blood Count 5.50 10 4.00-5.40 Above high normal [facility] ([facility] Hematocrit 48.9 % 36.0-47.0 Above high normal [facility] ([facility] Hemoglobin 14.6 g/dL 12.0-15.5 Normal (applies to non-numeric resul ts) [facility] ([facility] Mean Corpuscular Volume 88.9 fl 80.0-96.0 Normal ( applies to non-numeric results) [facility] ([facility] ) Mean Corpuscular Hemoglobin 26.5 pg 27.0-33.0 Below low normal [facility] ([facility] Mean Corpuscular HGB Conc 29.9 g/dL 32.0-36.5 Below low normal [facility] ([facility] Red Cell Distribution Width 19.8 % 11.5-14.5 Above high normal [facility] ([facility] Platelet Count, Automated 340 10 150-450 Normal (applies to non-numeric results) [facility] ([facility] ) Neutrophils % 88.7 % 36.0-66.0 Above high normal [facility] ([facility] Lymph % 6.5 % 24.0-44.0 Below low normal [facility] ( [facility] [place] % 3.8 % 2.0-8.0 Normal (applies to non-numeric resul ts) [facility] ([facility] Eos % 0.3 % 0.0-3.0 Normal (applies to non-numeric resul ts) [facility] ([facility] Immature Granulocyte % 0.5 % 0-3.0 Normal (applies to non-n umeric results) [facility] ([facility] Baso % 0.2 % 0.0-1.0 Normal (applies to non-numeric resul ts) [facility] ([facility] Neutrophils # 11.6 10 1.5-8.5 Above high normal [facility] ([facility] Nucleated Red Blood Cell % 0.0 % 0-0 Normal (applies to n on-numeric results) [facility] ([facility] Lymph # 0.9 10 1.5-5.0 Below low normal [facility] ( [facility] [place] # 0.5 10 0.0-0.8 Normal (applies to non-numeric resul ts) [facility] ([facility] Eos # 0.0 10 0.0-0.5 Normal (applies to non-numeric resul ts) [facility] ([facility] Baso # 0.0 10 0.0-0.2 Normal (applies to non-numeric resul ts) [facility] ([facility] ID Date Data Source [id number] 05/17/2020 04:54:00 PM EDT [facility] ([facility] Name Value Range Interpretation Code Description Data Leona rce(s) Supporting Document(s) Laboratory test finding (navigational concept) 51.0 % 3 8.0-51.0 Normal (applies to non-numeric results) [facility] ([facility] Laboratory test finding (navigational concept) 140 meq/L 1 36-145 Normal (applies to non-numeric results) [facility] ([facility] Laboratory test finding (navigational concept) 81 mg/dL 7 0-105 Normal (applies to non-numeric results) [facility] ([facility] Laboratory test finding (navigational concept) 5.2 mg/dL 4 .5-5.3 Normal (applies to non-numeric results) [facility] ([facility] Laboratory test finding (navigational concept) 3.8 meq/L 3 .5-5.1 Normal (applies to non-numeric results) [facility] ([facility] Laboratory test finding (navigational concept) 99 meq/L 9 8-109 Normal (applies to non-numeric results) [facility] ([facility] Laboratory test finding (navigational concept) 32.0 MM/L 2 3.0-27.0 Above high normal [facility] ([facility] ) Laboratory test finding (navigational concept) 33 mg/dL 8-26 Above high normal [facility] ([facility] Laboratory test finding (navigational concept) 1.3 mg/dL 0 .6-1.3 Normal (applies to non-numeric results) [facility] ([facility] ID Date Data Source [id number] 05/17/2020 04:54:00 PM EDT [facility] ([facility]) Name Value Range Interpretation Code Description Data Leona rce(s) Supporting Document(s) Thyrotropin [Units/volume] in Serum or Plasma 3.770 uIU/ML 0.358-3.74 0 [facility] ([facility]) ID Date Data Source [id number] 05/10/2020 01:56:00 PM EDT [facility] ([facility] Name Value Range Interpretation Code Description Data Leona rce(s) Supporting Document(s) Glucose [Mass/volume] in Capillary blood by Glucometer 149 mg/dL 83-110 Above high normal [facility] ([facility] ID Date Data Source [id number] 05/10/2020 01:56:00 PM [facility] Name Value Range Interpretation Code Description Data Leona rce(s) Supporting Document(s) Glucose [Mass/volume] in Capillary blood by Glucometer 149 mg/dL 83-110 Above high normal [facility] ID Date Data Source [id number] 05/10/2020 01:04:00 PM EDT [facility] ([facility]) Name Value Range Interpretation Code Description Data Leona rce(s) Supporting Document(s) Surgical pathology study Laboratory test result [facility] ([facility]) FINAL DIAGNOSIS Submitted as" lipoma abdominal wall": [...] to reveal benign adipose tissue and skin. Field Contact Person sections submitted in one. -OA 05/13/2020 - 1418 Signed KASSY KOROMA MD 05/14/2020 1040 ID Date Data Source [id number] 05/10/2020 11:35:00 AM EDT [facility] ([facility] Name Value Range Interpretation Code Description Data Leona rce(s) Supporting Document(s) Glucose [Mass/volume] in Capillary blood by Glucometer 140 mg/dL 83-110 Above high normal [facility] ([facility] ID Date Data Source [id number] 05/10/2020 11:35:00 AM EDT [facility] ([facility], ) Name Value Range Interpretation Code Description Data Leona rce(s) Supporting Document(s) Glucose [Mass/volume] in Capillary blood by Glucometer 140 mg/dL 83-110 Above high normal [facility] ([facility], ) ID Date Data Source [id number] 05/05/2020 09:35:00 AM EDT [facility] Name Value Range Interpretation Code Description Data Leona rce(s) Supporting Document(s) SARS coronavirus 2 RNA Not Detected [facility] [place] This lab was ordered by [facility] and reported by [facility]. ID Date Data Source [id number] 04/20/2020 07:20:00 PM EST [facility] ([facility] Name Value Range Interpretation Code Description Data Leona rce(s) Supporting Document(s) Glucose [Mass/volume] in Capillary blood by Glucometer 208 mg/dL 83-110 Above high normal [facility] ([facility] ) ID Date Data Source [id number] 04/20/2020 06:51:00 PM EST [facility] ([facility] Name Value Range [...] res ults) [facility] ([facility] Specific [place] Ur Auto RFX 1.004 1.002-1.035 Nor mal (applies to non-numeric results) [facility] ([facility] ) Protein, Urine Auto RFX Laboratory test result N ormal (applies to non-numeric results) [facility] ([facility] ) Ketone, Urine Auto RFX Laboratory test result No rmal (applies to non-numeric results) [facility] ([facility] ) Glucose, Urine (Ua) Auto RFX Laboratory test result Above high normal [facility] ([facility] Urobilinogen, Urine Auto RFX 0.2 mg/dL 0.0-2.0 Nor mal (applies to non-numeric results) [facility] ([facility] ) Bilirubin, Urine Auto RFX Laboratory test result Normal (applies to non- numeric results) [facility] ([facility] ) Nitrite, Urine Auto RFX Laboratory test result N ormal (applies to non-numeric results) [facility] ([facility] ) Leukocyte Esterase Ur Auto RFX Laboratory test result Normal (applies to non- numeric results) [facility] ([facility] ) WBC, Urine Auto RFX 1 /HPF 0-3 Normal (applies to non-nume samantha results) [facility] ([facility] Blood, Urine Blood RFX Laboratory test result No rmal (applies to non-numeric results) [facility] ([facility] ) RBC, Urine Auto RFX 1 /HPF 0-3 Normal (applies to non-nume samantha results) [facility] ([facility] Bacteria, Urine Auto RFX Laboratory test result Normal (applies to non-numeric results) [facility] ([facility] ) Squam Epithelial Cell Ur Aurfx 1 /HPF 0-6 N ormal (applies to non-numeric results) [facility] ([facility] ) Hyaline Cast, Urine Auto RFX 0 /LPF 0-1 Normal (appl ies to non-numeric results) [facility] ([facility] ID Date Data Source [id number] 04/20/2020 06:01:00 PM EST [facility] ([facility] Name Value Range Interpretation Code Description Data Leona rce(s) Supporting Document(s) Glucose [Mass/volume] in Capillary blood by Glucometer 124 mg/dL 83-110 Above high normal [facility] ([facility] ) ID Date Data Source [id number] 04/20/2020 04:48:00 PM EST [facility] ([facility] Name Value Range Interpretation Code Description Data Leona rce(s) Supporting Document(s) Laboratory test finding (navigational concept) 40.0 % 3 8.0-51.0 Normal (applies to non-numeric results) [facility] ([facility] Laboratory test finding (navigational concept) 109 mg/dL 7 0-105 Above high normal [facility] ([facility] ) Laboratory test finding (navigational concept) 133 meq/L 1 36-145 Below low normal [facility] ([facility] ) Laboratory test finding (navigational concept) 4.7 meq/L 3 .5-5.1 Normal (applies to non-numeric results) [facility] ([facility] Laboratory test finding (navigational concept) 4.0 mg/dL 4 .5-5.3 Below low normal [facility] ([facility] ) Laboratory test finding (navigational concept) 100 meq/L 9 8-109 Normal (applies to non-numeric results) [facility] ([facility] Laboratory test finding (navigational concept) 29.0 MM/L 2 3.0-27.0 Above high normal [facility] ([facility] ) Laboratory test finding (navigational concept) 19 mg/dL 8 -26 Normal (applies to non-numeric results) [facility] ([facility]) Laboratory test finding (navigational concept) 0.7 mg/dL 0 .6-1.3 Normal (applies to non-numeric results) [facility] ([facility] ID Date Data Source [id number] 04/20/2020 04:46:00 PM EST [facility] ([facility] Name Value Range Interpretation Code Description Data Leona rce(s) Supporting Document(s) Lipoprotein lipase [Enzymatic activity/volume] in Serum or P lasma 270 U/L 73-393 Normal (applies to non-numeric results) [facility] ([facility] ID Date Data Source [id number] 04/20/2020 04:46:00 PM EST [facility] ([facility] Name Value Range Interpretation Code Description Data Leona e(s) Supporting Document(s) Alt/SGPT 20 U/L 12-78 Normal (applies to non-numeric resul ts) [facility] ([facility] Ast/Sgot 19 U/L 7-37 Normal (applies to non-numeric resul ts) [facility] ([facility] Bilirubin,Total Laboratory test result 0.2-1.0 Below low normal [facility] ([facility] Alkaline Phosphatase 87 U/L 45-117 Normal (applies to non-num ana rosa results) [facility] ([facility] Bilirubin,Direct Laboratory test result 0.0-0.2 Normal ( applies to non-numeric results) [facility] ([facility] ) Total Protein 6.7 GM/DL 6.4-8.2 Normal (applies to non-numeric re sults) [facility] ([facility] Albumin 3.6 GM/DL 3.2-5.2 Normal (applies to non-numeric resul ts) [facility] ([facility] Albumin/Globulin Ratio 1.2 1.2-2.2 Normal (applies to non-n umeric results) [facility] ([facility] ID Date Data Source [id number] 04/20/2020 04:46:00 PM EST [facility] ([facility] Name Value Range Interpretation Code Description Data Leona [facility](s) Supporting Document(s) CPK Creatine Phosphokinase 81 U/L 26-192 Roselia l (applies to non-numeric results) [facility] ([facility] ) MB/CK Relative Index 1.23 Normal (applies to non-num ana rosa results) [facility] ([facility] <content>DIAGNOSIS CRITERIA</content>
<content>MMB ng/ml Relative Index (RI)</content>
<content>NON-AMI < or = 5 N/A</content>
<content>GIL ZONE > 5 < or = 4</content>
<content>AMI > 5 > 4</content>
<content></content> CK-MB Value Mass Laboratory test result Normal ( applies to non-numeric results) [facility] ([facility] ) Troponin I Laboratory test result Normal (applies to non-n umeric results) [facility] ([facility] <content>Troponin I Reference Interval f or Siemens Aztec LOCI:</content>
<content></content>
<content>99th Percentile= 0.00-0.045 ng/ml</content>
<content></content>
<content>Risk Stratification:</content>
<content><= 0.10 ng/ml Decreased Risk for Adverse Clinical</content>
<content>Events.</content>
<content>0.10-1.50 ng/ml Increased Risk for Adverse Clinical</content>
<content>Events. Evaluation of additional</content>
<content>criterion and/or repeat testing in 2-6</content>
<content>hours is suggested to rule out myocardial</content>
<content>damage.</content>
<content>>= 1.50 ng/ml Indicative of Myocardial Injury.</content>
<content></content> ID Date Data Source [id number] 04/20/2020 04:46:00 PM EST [facility] ([facility] Name Value Range Interpretation Code Description Data Leona rce(s) Supporting Document(s) Hemoglobin A1c 8.0 % Normal (applies to non-numeric r esults) [facility] ([facility] <content>REFERENCE RANGES:</content><br/ ><content></content>
<content><=5.6% NORMAL</content>
<content>5.7-6.4% SUGGESTS IMPAIRED GLUCOSE METABOLISM/PREDIABETIC</content>
<content>>= 6.5% ABNORMAL</content>
<content></content> Estimated Average Glucose 183 mg/dL 60-110 Above high normal [facility] ([facility] ID Date Data Source [id number] 04/20/2020 04:46:00 PM EST [facility] ([facility] Name Value Range Interpretation Code Description Data Leona rce(s) Supporting Document(s) White Blood Count 12.3 10 4.0-10.0 Above high normal [facility] ([facility] Red Blood Count 4.66 10 4.00-5.40 Normal (applies to non-numeric results) [facility] ([facility] Hemoglobin 11.8 g/dL 12.0-15.5 Below low normal [facility] ( [facility] Hematocrit 40.2 % 36.0-47.0 Normal (applies to non-numeric resul ts) [facility] ([facility] Mean Corpuscular Hemoglobin 25.3 pg 27.0-33.0 Below low normal [facility] ([facility] Mean Corpuscular Volume 86.3 fl 80.0-96.0 Normal ( applies to non-numeric results) [facility] ([facility] ) Mean Corpuscular HGB Conc 29.4 g/dL 32.0-36.5 Below low normal [facility] ([facility] Red Cell Distribution Width 18.5 % 11.5-14.5 Above high normal [facility] ([facility] Platelet Count, Automated 296 10 150-450 Normal (applies to non-numeric results) [facility] ([facility] ) Neutrophils % 82.8 % 36.0-66.0 Above high normal MEDE NT ([facility] Lymph % 11.3 % 24.0-44.0 Below low normal [facility] ( [facility] [place] % 4.5 % 2.0-8.0 Normal (applies to non-numeric resul ts) [facility] ([facility] Eos % 0.5 % 0.0-3.0 Normal (applies to non-numeric resul ts) [facility] ([facility] Baso % 0.2 % 0.0-1.0 Normal (applies to non-numeric resul ts) [facility] ([facility] Immature Granulocyte % 0.7 % 0-3.0 Normal (applies to non-n umeric results) [facility] ([facility] Nucleated Red Blood Cell % 0.0 % 0-0 Normal (applies to n on-numeric results) [facility] ([facility] Neutrophils # 10.2 10 1.5-8.5 Above high normal [facility] NT ([facility] Lymph # 1.4 10 1.5-5.0 Below low normal [facility] ( [facility] [place] # 0.6 10 0.0-0.8 Normal (applies to non-numeric resul ts) [facility] ([facility] Baso # 0.0 10 0.0-0.2 Normal (applies to non-numeric resul ts) [facility] ([facility] Eos # 0.1 10 0.0-0.5 Normal (applies to non-numeric resul ts) [facility] ([facility] ID Date Data Source [id number] 04/08/2020 07:05:00 PM EST [facility] ([facility] ) Name Value Range Interpretation Code Description Data Leona rce(s) Supporting Document(s) Hemoglobin A1c/Hemoglobin.total in Blood 7.9 % [facility] ([facility] ) <content>REFERENCE RANGES:</content><br/ ><content></content>
<content><=5.6% NORMAL</content>
<content>5.7-6.4% SUGGESTS IMPAIRED GLUCOSE METABOLISM/PREDIABETIC</content>
<content>>= 6.5% ABNORMAL</content>
<content></content>
<content></content> Estimated Average Glucose 180 mg/dL 60-110 [facility] ([facility] ) ID Date Data Source [id number] 04/08/2020 07:05:00 PM EST [facility] ([facility] Name Value Range Interpretation Code Description Data Leona rce(s) Supporting Document(s) Appearance, Urine RFX Laboratory test result Nor mal (applies to non-numeric results) [facility] ([facility] ) Color, Urine RFX Laboratory test result Normal ( applies to non-numeric results) [facility] ([facility] Specific [place] Ur Auto RFX 1.022 1.002-1.035 Nor mal (applies to non-numeric results) [facility] ([facility] ) PH,Urine RFX 5.0 units 5.0-9.0 Normal (applies to non-numeric res ults) [facility] ([facility] Protein, Urine Auto RFX Laboratory test result N ormal (applies to non-numeric results) [facility] ([facility] Glucose, Urine (Ua) Auto RFX Laboratory test result Above high normal [facility] ([facility] Ketone, Urine Auto RFX Laboratory test result No rmal (applies to non-numeric results) [facility] ([facility] ) Urobilinogen, Urine Auto RFX 0.2 mg/dL 0.0-2.0 Nor mal (applies to non-numeric results) [facility] ([facility] Nitrite, Urine Auto RFX Laboratory test result N ormal (applies to non-numeric results) [facility] ([facility] ) Bilirubin, Urine Auto RFX Laboratory test result Normal (applies to non- numeric results) [facility] ([facility] ) Leukocyte Esterase Ur Auto RFX Laboratory test result Normal (applies to non- numeric results) [facility] ([facility] ) Blood, Urine Blood RFX Laboratory test result No rmal (applies to non-numeric results) [facility] ([facility] ) WBC, Urine Auto RFX 2 /HPF 0-3 Normal (applies to non-nume samantha results) [facility] ([facility] Bacteria, Urine Auto RFX Laboratory test result Normal (applies to non-numeric results) [facility] ([facility] ) RBC, Urine Auto RFX 2 /HPF 0-3 Normal (applies to non-nume samantha results) [facility] ([facility] Squam Epithelial Cell Ur Aurfx 0 /HPF 0-6 N ormal (applies to non-numeric results) [facility] ([facility] ) Mucus, Urine RFX Laboratory test result Normal ( applies to non-numeric results) [facility] ([facility] ) Hyaline Cast, Urine Auto RFX 0 /LPF 0-1 Normal (appl ies to non-numeric results) [facility] ([facility] ID Date Data Source [id number] 04/08/2020 07:05:00 PM EST [facility] ([facility] Name Value Range Interpretation Code Description Data Leona rce(s) Supporting Document(s) Hemoglobin A1c 7.9 % Normal (applies to non-numeric r esults) [facility] ([facility] <content>REFERENCE RANGES:</content><br/ ><content></content>
<content><=5.6% NORMAL</content>
<content>5.7-6.4% SUGGESTS IMPAIRED GLUCOSE METABOLISM/PREDIABETIC</content>
<content>>= 6.5% ABNORMAL</content>
<content></content> Estimated Average Glucose 180 mg/dL 60-110 Above high normal [facility] ([facility] ID Date Data Source [id number] 04/08/2020 06:27:00 PM EST [facility] ([facility]) Name Value Range Interpretation Code Description Data Leona rce(s) Supporting Document(s) Osmolality of Serum or Plasma 301 280-301 [facility] ([facility]) ID Date Data Source [id number] 04/08/2020 06:27:00 PM EST [facility] ([facility]) Name Value Range Interpretation Code Description Data Leona rce(s) Supporting Document(s) Beta hydroxybutyrate [Mass/volume] in Serum or Plasma 1.15 [facility] ([facility]) ID Date Data Source [id number] 04/08/2020 06:27:00 PM EST [facility] ([facility] Name Value Range Interpretation Code Description Data Leona rce(s) Supporting Document(s) Magnesium [Mass/volume] in Serum or Plasma 1.8 mg/dL 1.8-2 .4 Normal (applies to non-numeric results) [facility] ([facility]) Laboratory test finding (navigational concept) 1.15 mg/dL Normal (applies to non-numeric results) [facility] ([facility]) Lipoprotein lipase [Enzymatic activity/volume] in Serum or P lasma 215 U/L 73-393 Normal (applies to non-numeric results) [facility] ([facility] Osmolality of Serum or Plasma 301 MOSM/KG 280-301 No rmal (applies to non-numeric results) [facility] ([facility] ) ID Date Data Source [id number] 04/08/2020 06:27:00 PM EST [facility] ([facility] Name Value Range Interpretation Code Description Data Leona rce(s) Supporting Document(s) Glucose, Fasting 333 mg/dL 70-100 Above high normal [facility] ([facility] Creatinine For GFR 0.92 mg/dL 0.55-1.30 Normal (applies to non -numeric results) [facility] ([facility] Blood Urea Nitrogen 22 mg/dL 7-18 Above high normal [facility] ([facility] Sodium Level 136 meq/L 136-145 Normal (applies to non-numeric res ults) [facility] ([facility] Glomerular Filtration Rate Laboratory test result Normal (applies to non- numeric results) [facility] ([facility] ) <content>Units are mL/min/1.73 m2</content>
<content></content>
<content>Chronic Kidney Disease Staging per NKF:</content>
<content></content>
<content>Stage I & II GFR >=60 Normal to Mildly Decreased</content>
<content>Stage III GFR 30-59 Moderately Decreased</content>
<content>Stage IV GFR 15-29 Severely Decreased</content>
<content>Stage V GFR <15 Very Little GFR Left</content>
<content>ESRD GFR <15 on PRINTING TECHNICIAN</content>
<content></content> Potassium Serum 4.3 meq/L 3.5-5.1 Normal (applies to non-numeric results) [facility] ([facility] Chloride Level 98 meq/L 98-107 Normal (applies to non-numeric r esults) [facility] ([facility] Carbon Dioxide Level 31 meq/L 21-32 Normal (applies to non-num ana rosa results) [facility] ([facility] Calcium Level 9.1 mg/dL 8.8-10.2 Normal (applies to non-numeric re sults) [facility] ([facility] Anion Gap 7 meq/L 8-16 Below low normal [facility] ( [facility] ID Date Data Source [id number] 04/08/2020 06:27:00 PM EST [facility] ([facility] Name Value Range Interpretation Code Description Data Leona rce(s) Supporting Document(s) Alt/SGPT 22 U/L 12-78 Normal (applies to non-numeric resul ts) [facility] ([facility] Ast/Sgot 19 U/L 7-37 Normal (applies to non-numeric resul ts) [facility] ([facility] Alkaline Phosphatase 100 U/L 45-117 Normal (applies to non-num ana rosa results) [facility] ([facility] Bilirubin,Total Laboratory test result 0.2-1.0 Below low normal [facility] ([facility] Total Protein 6.1 GM/DL 6.4-8.2 Below low normal [facility] T ([facility] Bilirubin,Direct Laboratory test result 0.0-0.2 Normal ( applies to non-numeric results) [facility] ([facility] ) Albumin/Globulin Ratio 1.1 1.2-2.2 Below low normal [facility] ([facility] Albumin 3.2 GM/DL 3.2-5.2 Normal (applies to non-numeric resul ts) [facility] ([facility]) ID Date Data Source [id number] 04/08/2020 06:27:00 PM EST [facility] ([facility]) Name Value Range Interpretation Code Description Data Leona rce(s) Supporting Document(s) CPK Creatine Phosphokinase 102 U/L 26-192 Roselia l (applies to non-numeric results) [facility] ([facility] ) MB/CK Relative Index 1.57 Normal (applies to non-num ana rosa results) [facility] ([facility] <content>DIAGNOSIS CRITERIA</content>
<content>MMB ng/ml Relative Index (RI)</content>
<content>NON-AMI < or = 5 N/A</content>
<content>GIL ZONE > 5 < or = 4</content>
<content>AMI > 5 > 4</content>
<content></content> CK-MB Value Mass 1.6 ng/mL Normal (applies to non-numeric results) [facility] ([facility] Troponin I Laboratory test result Normal (applies to non-n umeric results) [facility] ([facility]) <content>Troponin I Reference Interval f or Siemens Aztec LOCI:</content>
<content></content>
<content>99th Percentile= 0.00-0.045 ng/ml</content>
<content></content>
<content>Risk Stratification:</content>
<content><= 0.10 ng/ml Decreased Risk for Adverse Clinical</content>
<content>Events.</content>
<content>0.10-1.50 ng/ml Increased Risk for Adverse Clinical</content>
<content>Events. Evaluation of additional</content>
<content>criterion and/or repeat testing in 2-6</content>
<content>hours is suggested to rule out myocardial</content>
<content>damage.</content>
<content>>= 1.50 ng/ml Indicative of Myocardial Injury.</content>
<content></content> ID Date Data Source [id number] 04/08/2020 06:27:00 PM EST [facility] ([facility] Name Value Range Interpretation Code Description Data Leona rce(s) Supporting Document(s) White Blood Count 7.0 10 4.0-10.0 Normal (applies to non-numeri c results) [facility] ([facility] Hemoglobin 10.4 g/dL 12.0-15.5 Below low normal [facility] ( [facility] Red Blood Count 4.16 10 4.00-5.40 Normal (applies to non-numeric results) [facility] ([facility] Mean Corpuscular Volume 84.1 fl 80.0-96.0 Normal ( applies to non-numeric results) [facility] ([facility] ) Hematocrit 35.0 % 36.0-47.0 Below low normal [facility] ( [facility] Mean Corpuscular HGB Conc 29.7 g/dL 32.0-36.5 Below low normal [facility] ([facility] Mean Corpuscular Hemoglobin 25.0 pg 27.0-33.0 Below low normal [facility] ([facility] Red Cell Distribution Width 18.4 % 11.5-14.5 Above high normal [facility] ([facility] Neutrophils % 59.6 % 36.0-66.0 Normal (applies to non-numeric re sults) [facility] ([facility] Platelet Count, Automated 284 10 150-450 Normal (applies to non-numeric results) [facility] ([facility] ) Lymph % 32.1 % 24.0-44.0 Normal (applies to non-numeric resul ts) [facility] ([facility] [place] % 5.9 % 0.0-8.0 Normal (applies to non-numeric resul ts) [facility] ([facility] Eos % 2.0 % 0.0-3.0 Normal (applies to non-numeric resul ts) [facility] ([facility] Baso % 0.1 % 0.0-1.0 Normal (applies to non-numeric resul ts) [facility] ([facility] Nucleated Red Blood Cell % 0.0 % 0-0 Normal (applies to n on-numeric results) [facility] ([facility] Immature Granulocyte % 0.3 % 0-3.0 Normal (applies to non-n umeric results) [facility] ([facility] [place] # 0.4 10 0.0-0.8 Normal (applies to non-numeric resul ts) [facility] ([facility] Neutrophils # 4.1 10 1.5-8.5 Normal (applies to non-numeric re sults) [facility] ([facility] Lymph # 2.2 10 1.5-5.0 Normal (applies to non-numeric resul ts) [facility] ([facility] Eos # 0.1 10 0.0-0.5 Normal (applies to non-numeric resul ts) [facility] ([facility] Baso # 0.0 10 0.0-0.2 Normal (applies to non-numeric resul ts) [facility] ([facility] ID Date Data Source [id number] 04/08/2020 06:27:00 PM EST [facility] ([facility] Name Value Range Interpretation Code Description Data Leona rce(s) Supporting Document(s) Venous PH 7.383 units 7.330-7.430 Normal (applies to non-numeric res ults) [facility] ([facility] Venous Partial Pressure O2 42.0 mmHg 30.0-50.0 Roselia l (applies to non-numeric results) [facility] ([facility] ) Venous Partial Pressure Co2 52.7 mmHg 38.0-50.0 Above high normal [facility] ([facility] Venous Hco3 30.7 meq/L 23.0-27.0 Above high normal [facility] ([facility] Venous Total Co2 32.3 meq/L 24.0-28.0 Above high normal [facility] ([facility] Venous Base Excess 4.7 Above high normal [facility] ([facility] Venous Standard Hco3 28.2 meq/L Normal (applies to non-num ana rosa results) [facility] ([facility] Venous O2 Saturation 74.1 % 60.0-80.0 Normal (applies to non-num ana rosa results) [facility] ([facility] ID Date Data Source [id number] 03/28/2020 09:10:00 AM EST [facility] ([facility] ) Name Value Range Interpretation Code Description Data Leona rce(s) Supporting Document(s) C reactive protein [Mass/volume] in Serum or Plasma by High sensitivity method Laboratory test result 0.00-0.[address] [facility] ([facility]) ID Date Data Source [id number] 03/28/2020 09:10:00 AM EST [facility] ([facility]) Name Value Range Interpretation Code Description Data Leona rce(s) Supporting Document(s) Procalcitonin [Mass/volume] in Serum or Plasma 0.18 [facility] ([facility]) ID Date Data Source [id number] 03/28/2020 09:10:00 AM EST [facility] ([facility]) Name Value Range Interpretation Code Description Data Leona rce(s) Supporting Document(s) Erythrocyte sedimentation rate by Westergren method 23 0-30 [facility]) ID Date Data Source [id number] 03/28/2020 06:16:00 AM EST [facility] Name Value Range Interpretation Code Description Data Leona rce(s) Supporting Document(s) SARS coronavirus 2 RNA [Presence] in Res piratory specimen by DANIELA with probe detection NEGATIVE [facility] This lab was ordered by [facility] a nd reported by [facility]. ID Date Data Source [id number] 03/28/2020 05:11:00 AM EST [facility] ([facility]) Name Value Range Interpretation Code Description Data Leona rce(s) Supporting Document(s) Urine Culture Laboratory test result [facility] ([facility]) Urine Culture Laboratory test result [facility] ([facility]) ID Date Data Source [id number] 03/28/2020 03:33:00 AM EST [facility] ([facility]) Name Value Range Interpretation Code Description Data Leona rce(s) Supporting Document(s) Lactic Acid Level 1.5 0.4-2.0 [facility] ([facility] ) ID Date Data Source [id number] 02/29/2020 07:44:00 PM EST [facility] Name Value Range Interpretation Code Description Data Leona rce(s) Supporting Document(s) SARS-CoV-2 (COVID 19) NEGATIVE - SARS-CoV-2 (COVID19) [facility] This lab was ordered by [facility] a nd reported by [facility]. ID Date Data Source [id number] 02/27/2020 11:39:00 AM EST [facility] ([facility], ) Name Value Range Interpretation Code Description Data Leona rce(s) Supporting Document(s) Creatinine For GFR 1.05 mg/dL 0.55-1.30 Normal (applies to non -numeric results) [facility], ) Glomerular Filtration Rate 55.3 Normal (applies to n on-numeric results) [facility] ([facility]) <content>Units are mL/min/1.73 m2</content>
<content></content>
<content>Chronic Kidney Disease Staging per NKF:</content>
<content></content>
<content>Stage I & II GFR >=60 Normal to Mildly Decreased</content>
<content>Stage III GFR 30- 59 Moderately Decreased</content>
<content>Stage IV GFR 15-29 Severely Decreased</content>
<content>Stage V GFR <15 Very Little GFR Left</content>
<content>ESRD GFR <15 on PRINTING TECHNICIAN</content>
<content></content> ID Date Data Source [id number] 02/27/2020 11:39:00 AM EST [facility] ([facility], ) Name Value Range Interpretation Code Description Data Leona rce(s) Supporting Document(s) Urea nitrogen [Mass/volume] in Serum or Plasma 19 mg/dL 7-18 Above high normal [facility] ([facility]) ID Date Data Source [id number] 02/27/2020 11:39:00 AM EST [facility] ([facility]) Name Value Range Interpretation Code Description Data Leona rce(s) Supporting Document(s) Ferritin [Mass/volume] in Serum or Plasma 8 ng/mL 8-252 Normal (applies to non- numeric results) [facility]) ID Date Data Source [id number] 02/27/2020 11:39:00 AM EST [facility] ([facility]) Name Value Range Interpretation Code Description Data Leona rce(s) Supporting Document(s) Total Iron Binding Capacity 433 ug/dL 250-450 Norm al (applies to non-numeric results) [facility] ([facility]) Iron (Fe) 30 ug/dL 50-170 Below low normal [facility] ( [facility]) Percent Saturation 6.9 % 13.2-45.0 Below low normal [facility] ([facility]) ID Date Data Source [id number] 02/27/2020 11:39:00 AM [facility] ([facility]) Name Value Range Interpretation Code Description Data Leona rce(s) Supporting Document(s) Red Blood Count 4.50 10 4.00-5.40 Normal (applies to non-numeric results) [facility] ([facility]) White Blood Count 6.3 10 4.0-10.0 Normal (applies to non-numeri c results) [facility]) Hematocrit 36.6 % 36.0-47.0 Normal (applies to non-numeric resul ts) [facility] ([facility]) Hemoglobin 10.9 g/dL 12.0-15.5 Below low normal [facility] ( [facility]) Mean Corpuscular HGB Conc 29.8 g/dL 32.0-36.5 Below low normal [facility] ([facility]) Mean Corpuscular Hemoglobin 24.2 pg 27.0-33.0 Below low normal [facility] ([facility]) Mean Corpuscular Volume 81.3 fl 80.0-96.0 Normal ( applies to non-numeric results) [facility]) Platelet Count, Automated 356 10 150-450 Normal (applies to non-numeric results) [facility] ([facility]) Red Cell Distribution Width 17.3 % 11.5-14.5 Above high normal [facility] ([facility]) Lymph % 37.0 % 24.0-44.0 Normal (applies to non-numeric resul ts) [facility] ([facility]) Neutrophils % 52.7 % 36.0-66.0 Normal (applies to non-numeric re sults) [facility] ([facility]) [place] % 6.2 % 0.0-5.0 Above high normal [facility] ([facility]) Eos % 3.2 % 0.0-3.0 Above high normal [facility] ([facility]) Immature Granulocyte % 0.3 % 0-3.0 Normal (applies to non-n umeric results) [facility] ([facility]) Baso % 0.6 % 0.0-1.0 Normal (applies to non-numeric resul ts) [facility] ([facility]) Lymph # 2.3 10 1.5-5.0 Normal (applies to non-numeric resul ts) [facility] ([facility]) Neutrophils # 3.3 10 1.5-8.5 Normal (applies to non-numeric re sults) [facility] ([facility]) Nucleated Red Blood Cell % 0.0 % 0-0 Normal (applies to n on-numeric results) [facility] ([facility]) [place] # 0.4 10 0.0-0.8 Normal (applies to non-numeric resul ts) [facility] ([facility]) Eos # 0.2 10 0.0-0.5 Normal (applies to non-numeric resul ts) [facility] ([facility]) Baso # 0.0 10 0.0-0.2 Normal (applies to non-numeric resul ts) [facility] ([facility]) ID Date Data Source [id number] 01/18/2020 04:42:00 PM EST [facility] ([facility] ) Name Value Range Interpretation Code Description Data Leona rce(s) Supporting Document(s) Lactate [Moles/volume] in Venous blood 1.11 0.4-2.0 [facility] ([facility]) ID Date Data Source [id number] 01/18/2020 04:31:00 PM EST [facility] ([facility]) Name Value Range Interpretation Code Description Data Leona rce(s) Supporting Document(s) aPTT in Blood by Coagulation assay 28.3 24.2-38.5 [facility] ([facility]) ID Date Data Source [id number] 01/18/2020 04:31:00 PM EST [facility] ([facility]) Name Value Range Interpretation Code Description Data Leona rce(s) Supporting Document(s) INR in Platelet poor plasma by Coagulation assay 0.91 [facility] ([facility]) ID Date Data Source [id number] 01/18/2020 04:31:00 PM EST [facility] ([facility]) Name Value Range Interpretation Code Description Data Leona rce(s) Supporting Document(s) Prothrombin time (PT) 12.4 12.5-14.3 [facility] ( [facility]) ID Date Data Source [id number] 01/01/2020 10:05:00 [place] [address] RESPIRATORY CARE REPORT ==== ---------NAME------- NUMBER SEX AGE ADMIT DISC. XRAY# F/C NIDA De Souza [id number] F 69 12/31/19 12/31/19 [id number] JAN E/R DATE OF : 1950 M/R# [id number] #: [id number] TR-02 LOCATION: EMERGENCY DEPT [facility] [id number] COMP LETE:12/31/19 16:15 CJM [id number] PHYSICIAN: ZOHREH WAITE Name Value Range Interpretation Code Description Data Leona rce(s) Supporting Document(s) ID Date Data Source [id number] 01/01/2020 10:02:00 AM EST [facility] [address] [place] [address] PHONE: [phone] FAX: [phone] Name .................. : MARY De Souza Acct Number.................. : [id number] ROOM. ................. : TR-02 MR Number ................... : [id number] Stay type ............. : E/R Discharge Date......... ... : Admit Date ......... : 12/31/19 Admit Phys .................... : ZOHREH WAITE Date of ....... : 1950 Family Phys ................... : VASHTI S Phone .................. : [phone] Age ................................ : 69 Film# .................. .:[id number] Sex ................................. : F Unsigned transcriptions are preliminary reports and do not represent a medical or legal document CHEST PORTABLE [id number] COMPLETE:12/31/19 15:38 60664 Reason(s): Chest Pain PORTABLE CHEST X-RAY: HISTORY: [...] rce(s) Supporting Document(s) ID Date Data Source [id number] 12/31/2019 03:26:00 PM EST [facility] 1 OrderSheet [facility] Emergency Department [address] [place] [address] Phone #: ext- [phone] 12/31/2019 15:23 Patient: [...] Description Priority Entered Acknowledged Initialed 2 OrderSheet [facility] Emergency Department [address] [place] [address] Phone #: ext- [phone] 12/31/2019 15:23 Patient: [...] Courtney R.N. Physician;Pulse oximeter 15:38 12/31/2019 15:43 oRz,(Continuous) Michael Eastman R.N. Physician;Oxygen titrate to 15:38 12/31/2019 15:43 Roz,92% Michael Eastman R.N. Physician;[Electronically signed by Jaren Courtney R.N. (18:17 12/31/2019)][Electronically signed by Michael Bruner Physician (18:45 12/31/2019)][Electronically locked by Jaren Courtney R.N. (18:17 12/31/2019)] Name Value Range Interpretation Code Description Data Leona rce(s) Supporting Document(s) ID Date Data Source [id number] 12/31/2019 03:26:00 PM [facility] 1 Medication Reconciliation Report [facility] Emergency Department [address] [place] [address] Phone #: ext- [phone] 12/31/2019 15:23 Patient: [...] 12/31/2019 3:52:00 PM 2 Medication Reconciliation Report [facility] Emergency Department [address] [place] [address] Phone #: ext- [phone] 12/31/2019 15:23 Patient: [...] 1 inhaler. Refills: 1. Substitution permitted.Pharmacy - [facility] [address] ; [place] [address]. . -- Physician ManoloPrednisone 10mg Tapersig: take [...] rce(s) Supporting Document(s) ID Date Data Source [id number] 12/31/2019 03:26:00 PM EST [facility] 1 Medication Administration Record [facility] Emergency Department [address] [place] [address] Phone #: ext- [phone] 12/31/2019 15:23 Patient: SARMAD HERNANDEZ Sex: Lyndsey : 1950 Age: 69yWeight: 79.3 kgHeight/Length: 60 inBMI: 34.1ALLERGIES: Tape allergy Date/Time Medication Administered Medication OrderedGiven ASPIRIN CHEWABLE 81 MG [PO] Aspirin PO Chewable 81 mg 86228:44 12/31/2019 Dose: 81 mg Tablets PO mg [...] rce(s) Supporting Document(s) ID Date Data Source [id number] 12/31/2019 03:26:00 PM EST [facility] 1 General Instructions [facility] Emergency Department [address] [place] [address] Phone #: ext- [phone] 12/31/2019 15:23 Patient: [...] 1 inhaler. Refills: 1. Substitution permitted.Pharmacy - [facility] [address] ; [place] [address]. .Prednisone 10mg Tapersig: take 6 tabs PO [...] patient. ADDITIONAL INFORMATIONBronchospasm (Adult) 2 General Instructions [facility] Emergency Department [address] [place] [address] Phone #: ext- [phone] 12/31/2019 15:23 Patient: SARMAD HERNANDEZ Sex: F [...] you drink extra fluids. 3 General Instructions [facility] Emergency Department [address] [place] [address] Phone #: ext- [phone] 12/31/2019 15:23 Patient: [...] breath Increased wheezing or shortness of breath 9050-2089 [employer]. [address] [place] [address], [place] [address]. All rights reserved. This information is not intended as asubstitute for professional medical care. Always follow your healthcare professional's instructions.Asthma (Adult)Asthma is a disease where the medium and small air passages within the lung go into spasm andrestrict the flow of air. Inflammation and swelling of the airways cause further blockage. During an 4 General Instructions [facility] Emergency Department [address] [place] [address] Phone #: ext- [phone] 12/31/2019 15:23 Patient: [...] better after a few 5 General Instructions [facility] Emergency Department [address] [place] [address] Phone #: ext- [phone] 12/31/2019 15:23 Patient: [...] 80%) 15 minutes after using inhaler medicine.Call [phone] if any of the following occur Trouble walking or talking because of shortness of breath If you use a peak flow meter as part of an Asthma Action Plan and you are still in the red zone (less than 50%) 15 minutes after using inhaler medicine Lips or fingernails turning gil or blue 2621-6770 [employer]. [address] [place] [address]. All rights reserved. This information is not intended as a 6 General Instructions [facility] Emergency Department [address] [place] [address] Phone #: ext- [phone] 12/31/2019 15:23 Patient: SARMAD HERNANDEZ Sex: F : 1950 Age: 69ysubstitute for professional medical care. Always follow your healthcare professional's instructions. You have been given the following additional information: Bronchospasm (Adult) Asthma, Acute (Adult)(Electronically signed by Michael Bruner, Physician 12/31/2019 18:45) Name Value Range Interpretation Code Description Data Leona rce(s) Supporting Document(s) ID Date Data Source [id number] 12/31/2019 03:26:00 PM EST [facility] 1 Clinical Report - Nurses [facility] Emergency Department [address] [place] [address] Phone #: jii- [phone] 12/31/2019 15:23 Patient: SARMAD HERNANDEZ Sex: F [...] (3 days). ( wheezes, chest pain reproducable).Treatment DRY HEAT ROOM ATTENDANT:None. --15:35 12/31/19 Fay Martinez R.N.15:24 12/31/19. BP: [...] R.N.ADDITIONAL SURGERIES: 2 Clinical Report - Nurses [facility] Emergency Department [address] [place] [address] Phone #: ext- [phone] 12/31/2019 15:23 [id number] Sex: F : 1950 Age: 69y Appendectomy. [...] plan discussed with patient. Patient has a bt-gkb-mehvofvxgro (DNR) (dnr/dni). --15:36 12/31/19 Fay Martinez R.N.PHYSICAL ASSESSMENTGENERAL / NEURO / PSYCH: Alert. Oriented X 4. Appears anxious.RESPIRATORY: Respirations not labored.CVS: Normal sinus rhythm noted. 3 Clinical Report - Nurses [facility] Emergency Department [address] [place] [address] Phone #: ext- [phone] 12/31/2019 15:23 Patient: [...] Jaren Courtney R.N. Portable chest x-ray completed. ([id number]). --16:35 12/31/19 Jaren Courtney R.N. 17:03 12/31/19. BP: 138/56. MAP: 83. HR: 74. RR: 20. O2 saturation: 97%. Temp: 98.6 F. --17:08 12/31/19 Ashley Sears RN 17:27 12/31/2019 [place] Neb [place] Nebulizer 1 unit dose given. --17:27 12/31/19 Jaren Courtney R.N. 4 Clinical Report - Nurses [facility] Emergency Department [address] [place] [address] Phone #: ext- [phone] 12/31/2019 15:23 Patient: SARMAD HERNANDEZ Sex: F [...] shown to the ED physician. --17:43 12/31/19 [place] grocery worker, Davey, JENNY Tech1.DISPOSITION / DISCHARGE No learning barriers present. Written instructions provided in Panamanian. The patient was discharged by the physician. She was discharged home and accompanied by family. She left ambulatory and via private vehicle. Family member driving. --18:17 12/31/19 Jaren Courtney R.N. 18:15 12/31/19. BP: 108/62. MAP: 77. HR: 61. RR: 18. O2 saturation: 97%. Temp: deferred. Pain level now: 210. --18:17 12/31/19 Jaren Courtney R.N. Departure time: 18:17 12/31/2019. --18:17 12/31/19 Jaren Courtney R.N.Locked/Released at 12/31/2019 18:17 by Jaren Courtney R.N. Name Value Range Interpretation Code Description Data Leona rce(s) Supporting Document(s) ID Date Data Source [id number] 12/31/2019 03:26:00 PM EST [facility] 1 Clinical Report - Physicians/Mid Levels [facility] Emergency Department [address] [place] [address] Phone #: ext- [phone] 12/31/2019 15:23 Patient: [...] inspection. 2 Clinical Report - Physicians/Mid Levels [facility] Emergency Department [address] [place] [address] Phone #: ext- [phone] 12/31/2019 15:23 Patient: [...] 12/31/2019 17:39) In [place] [address] PHONE: [phone] FAX: [phone] Name .................. : MARY De Souza Acct Number.................. : [id number] ROOM. ................. : TR-02 Number ................... : [id number] Stay type ............. : E/R Discharge Date......... ... : Admit Date ......... : 12/31/19 Admit Phys .................... : ZOHREH WAITE Date of ....... : 1950 Family Phys ................... : VASHTI S Phone .................. : [phone] Age ..................... ........... : 69 Film# .................. .:[id number] Sex ................................. : F Unsigned transcriptions are preliminary reports and do not represent a medical or legal document CHEST PORTABLE [id number] COMPLETE:12/31/19 15:38 71034 Reason(s): Chest Pain Shortness of Breath PORTABLE CHEST X-RAY: HISTORY: Chest pain. COMPARISON: None. FINDINGS: Normal heart size and pulmonary vessels. Clear lungs. No pleural effusions. No acute or focal osseous abnormal. IMPRESSION: No active disease is seen in the chest. 3 Clinical Report - Physicians/Mid Levels [facility] Emergency Department [address] [place] [address] Phone #: ext- [phone] 12/31/2019 15:23 Patient: SARMAD HERNANDEZ Sex: F : 1950 Age: 69y Electronically Reviewed and Signed By JÚNIOR SIGNDATE, APDarrius Transcribe Initials: HAZEL , Transcribe Date: 12/31/19 17:35, Dictation Date: <<REPDIST>> Page 1of 1Urinalysis: (POONAM: 12/31/2019 16:05) ( [facility] 12/31/2019 16:31) Final results Test Result Flag [...] FEW (NORMAL: NONEBNP: (POONAM: 12/31/2019 15:35) ( [facility] 12/31/2019 16:27) Final results Test Result Flag Units (Reference) BNP 144 H PG/ML (0 - 125)CBC w Diff: (POONAM: 12/31/2019 15:35) ( [facility] 12/31/2019 16:13) Final results Test Result Flag [...] 40.0) 4 Clinical Report - Physicians/Mid Levels [facility] Emergency Department [address] [place] [id number] Phone #: [phone] 12/31/2019 15:23 Patient: [...] Male GFR Interprentation 20-49 yrs >60 mL/min Qsvtkh97-55 yrs >56 mL/min Normal 60-69 yrs >49 mL/min Normal 70-79yrs>42 mL/min Normal 80 and above >35 mL/min Normal Female GFRInterpretation 20-39 yrs >60 mL/min Normal 40-49 yrs >58 mL/minNormal 50-59 yrs >51 mL/min Normal 60-69 yrs >45 mL/min Ljwxtn31-31 yrs >39 mL/min Normal 80 and above [...] T. 5 Clinical Report - Physicians/Mid Levels [facility] Emergency Department [address] [place] [address] Phone #: [phone] 12/31/2019 15:23 Patient: SARMAD HERNANDEZ Sex: F [...] inhaler. Refills: 1. Substitution permitted. Pharmacy - [id number] - [address] ; [place] [address]. . Prednisone 10mg Taper sig: take 6 tabs PO each day for 2 days, then Take 5 tabs PO each day for 2 days, then Take 4 tabs PO each day for 2 days, then Take 3 tabs PO each day for 2 days, then 6 Clinical Report - Physicians/Mid Levels [facility] Emergency Department [address] [place] [address] Phone #: [phone] 12/31/2019 15:23 Patient: SARMAD HERNANDEZ Sex: F [...] Name Value Range Interpretation Code Description [facility] Supporting Document(s) ID Date Data Source [id number] 12/31/2019 04:05:00 PM EST [facility] ([facility] Name Value Range Interpretation Code Description Data Leona rce(s) Supporting Document(s) Urinalysis Laboratory test result ME [facility] ([facility] SOURCE: Clean Catch Clarity Laboratory test result [facility] ([facility] SOURCE: Clean Catch Source Laboratory test result [facility] ([facility] SOURCE: Clean Catch Color Laboratory test result [facility] ([facility] SOURCE: Clean Catch Glucose 250 Abnormal (applies to non-numeric res ults) [facility] ([facility] SOURCE: Clean Catch pH 6.5 5-9 [facility] ([facility] SOURCE: Clean Catch Spec [place] 1.010 1.001-1.030 [facility] ([facility] SOURCE: Clean Catch Ketone Laboratory test result [facility] ([facility] SOURCE: Clean Catch Protein Laboratory test result [facility] ([facility] SOURCE: Clean Catch Bilirubin Laboratory test result ME [facility] ([facility] SOURCE: Clean Catch Nitrite Laboratory test result [facility] ([facility] SOURCE: Clean Catch Blood Laboratory test result [facility] ([facility] SOURCE: Clean Catch Leuk Est 25 [facility] ([facility] SOURCE: Clean Catch Urobilinogen Laboratory test result [facility] ([facility] SOURCE: Clean Catch Microscopic Laboratory test result M EDENT ([facility] SOURCE: Clean Catch WBC Laboratory test result [facility] ([facility] SOURCE: Clean Catch Epithelial Laboratory test result [facility] ([facility] SOURCE: Clean Catch ID Date Data Source [id number] 12/31/2019 04:31:00 PM EST [facility] Name Value Range Interpretation Code Description Data Leona rce(s) Supporting Document(s) [facility]IS [facility] SOURCE Clean Catch [facility] COLOR yellow NORMAL: Yellow [facility] CLARITY clear NORMAL: Clear [facility] Specific gravity of Urine by Test strip 1.010 1.001 - 1.030 [facility] pH 6.5 5 - 9 [facility] Glucose [Mass/volume] in Urine by Test strip 250 NORMAL: Negat mario A [facility] Bilirubin.total [Presence] in Urine by Test strip NEG NORMAL: Negative [facility] Ketones [Presence] in Urine by Test strip NEG NORMAL: Negative [facility] Protein [Mass/volume] in Urine by Test strip NEG NORMAL: Negat mario [facility] Nitrite [Presence] in Urine by Test strip NEG NORMAL: Negative [facility] BLOOD NEG NORMAL: Negative [facility] Leukocyte esterase [Presence] in Urine by Test strip 25 ROSELIA L: Negative [facility] Urobilinogen [Mass/volume] in Urine by Test strip NOR less olivia n 1.0 mg/dL [facility] MICROSCOPIC See Below [facility] ital WBC 1 - 3 NORMAL: NONE SEEN [facility] EPITHELIAL FEW NORMAL: NONE SEEN [facility] Hospital ID Date Data Source [id number] 12/31/2019 03:35:00 PM EST [facility] ([facility] Name Value Range Interpretation [...] P.C.) Co2 29 meq/L 22-30 [facility] Chloride 104 meq/L 98-107 [facility] BUN/Creat 23 8-27 [facility] ([facility] Creatinine 0.9 mg/dL 0.7-1.5 [facility] ([facility] BUN 21 mg/dL 7-21 [facility] ([facility] Albumin 4.2 g/dL 3.9-5.0 [facility] ([facility] Globulin 2.2 GM/DL 2.4-3.2 Below low normal [facility] ( [facility] Total Protein 6.4 g/dL 6.3-8.2 [facility] ([facility] A/G Ratio 1.9 0.8-2.0 [facility] ([facility] Total Bili Laboratory test result 0.2-1.3 [facility] ([facility] Calcium 9.2 mg/dL 8.4-10.2 [facility] ([facility] Sgot/Ast 17 U/L 5-40 [facility] ([facility] Alkaline Phos 88 U/L 38-126 [facility] ([facility] Anion Gap 7.0 mmol/L 8.0-16.0 Below low normal [facility] ( [facility] SGPT/Alt 12 U/L 7-56 [facility] ([facility] Non-Aa GFR Laboratory test result [facility] ([facility] Afr Amer GFR Laboratory test result [facility] ([facility] Male GFR Interprentation 20-49 yrs [...] >32 mL/min Normal Age 69 yrs [facility] ([facility] ID Date Data Source [id number] 12/31/2019 03:35:00 PM EST [facility] ([facility] Name Value Range Interpretation Code Description Data Leona rce(s) Supporting Document(s) Troponin T.cardiac [Mass/volume] in Serum or Plasma Laborato ry test result 0.00-0.10 [facility] ([facility] TROPONIN T 0.1 ng/ml Recommended as the clinical th reshold value for Troponin T. Natriuretic peptide.B prohormone N-Terminal [Mass/volu me] in Serum or Plasma 144 pg/mL 0-125 Above high normal [facility] ([facility] ID Date Data Source [id number] 12/31/2019 03:35:00 PM EST [facility] ([facility] Name Value Range Interpretation Code Description Data Leona rce(s) Supporting Document(s) CBC W/Automated Diff Laboratory test result [facility] ([facility] COMPLETE BLOOD COUNT RBC 4.15 10^6/uL 4.20-5.40 Below low normal [facility] ([facility] WBC 6.5 10^3/uL 4.2-11.0 [facility] Hemoglobin 10.1 g/dL 12.0-16.0 Below low normal [facility] ( [facility] MCV 80.2 fL 81.0-101 Below low normal [facility] ( [facility] Hematocrit 33.3 % 37.0-47.0 Below low normal [facility] ( [facility] MCH 24.3 pg 27.0-34.0 Below low normal [facility] ( [facility] Platelets 328 10^3/uL 150-450 [facility] ([facility] MCHC 30.3 g/dL 31.0-36.0 Below low normal [facility] ( [facility] MPV 10.2 fL 7.4-10.4 [facility] ([facility] RDW 17.0 % 11.5-14.5 Above high normal [facility] ([facility] Lymph 28.0 % 25.0-40.0 [facility] ([facility] [place] 7.4 % 3.0-8.0 [facility] ([facility] Neut 60.0 % 37.0-80.0 [facility] ([facility] %NRBC 0.0 % 0.0-0.0 [...] 2.00-6.90 [facility] ([facility] #[place] 0.48 10^3/uL 0.00-0.90 [facility] ([facility] #NRBC 0.00 10^3/uL 0.00-0.00 [facility] ([facility] #Baso 0.03 10^3/uL 0.00-0.20 [facility] ([facility] #Eos 0.25 10^3/uL 0.00-0.70 [facility] ([facility] #Ig 0.01 10^3/uL 0.00-0.10 [facility] ([facility] Manual Diff Laboratory test result M EDENT ([facility] RBC Morph Laboratory test result [facility] ([facility] ID Date Data Source [id number] 12/31/2019 03:35:00 PM EST [facility] ([facility] Name Value Range Interpretation Code Description Data Leona rce(s) Supporting Document(s) Fibrin D-dimer [Presence] in Platelet poor plasma Laboratory test result 0.27-0.50 [facility] ([facility] ID Date Data Source [id number] 12/31/2019 04:31:00 PM EST [facility] Name Value Range Interpretation Code Description Data Leona rce(s) Supporting Document(s) COMPREHENSIVE METABOLIC PANEL [facility] COMPREHENSIVE METABOLIC PANEL Sodium [Moles/volume] in Serum or Plasma 140 mEq/L 134 - 153 [facility] Potassium [Moles/volume] in Serum or Plasma 4.6 mEq/L 3.6 - 5.0 [facility] Chloride [Moles/volume] in Serum or Plasma 104 mEq/L 98 - 107 [facility] Carbon dioxide, total [Moles/volume] in Serum or Plasma 29 MEQ/L 22 - 30 [facility] Glucose [Mass/volume] in Serum or Plasma 143 MG/DL 65 - 110 H [facility] BUN 21 MG/DL 7 - 21 [facility] Creatinine [Mass/volume] in Serum or Plasma 0.9 MG/DL 0.7 - 1.5 [facility] BUN/CREAT 23 8 - 27 [facility] Protein [Mass/volume] in Serum or Plasma 6.4 G/DL 6.3 - 8.2 [facility] Albumin [Mass/volume] in Serum or Plasma 4.2 G/DL 3.9 - 5.0 [facility] Globulin [Mass/volume] in Serum by calculation 2.2 GM/DL 2.4 - 3.2 L [facility] A/G RATIO 1.9 0.8 - 2.0 [facility] Calcium [Mass/volume] in Serum or Plasma 9.2 MG/DL 8.4 - 10.2 [facility] Bilirubin.total [Mass/volume] in Serum or Plasma <0.7 MG/DL 0.2 - 1.3 [facility] Alkaline phosphatase [Enzymatic activity/volume] in Serum or Plasma 88 U/L 38 - 126 [facility] Aspartate aminotransferase [Enzymatic activity/volume] in Serum or Plasma 17 U/L 5 - 40 [facility] Alanine aminotransferase [Enzymatic activity/volume] in Seru m or Plasma 12 U/L 7 - 56 [facility] Anion gap 3 in Serum or Plasma 7.0 mmol/L 8.0 - 16.0 L [facility] 69 [facility]60 mL/min [facility] ital AFR AMER GFR >60 [facility] Male GFR In terprentation [...] >32 mL/min Normal ID Date Data Source [id number] 12/31/2019 04:26:00 PM [facility] Name Value Range Interpretation Code Description Data Leona rce(s) Supporting Document(s) BNP 144 PG/ML 0 - 125 H [facility] ID Date Data Source [id number] 12/31/2019 04:20:00 PM [facility] Name Value Range Interpretation Code Description Data Leona rce(s) Supporting Document(s) TROPONIN T <0.01 NG/ML 0.00 - 0.10 [facility] ospital TROPONIN T0.1 ng/ml Recommended as the c linical threshold value forTroponin T. ID Date Data Source [id number] 12/31/2019 04:13:00 PM [facility] Name Value Range Interpretation Code Description Data Leona rce(s) Supporting Document(s) CBC W/AUTOMATED DIFF [facility] COMPLETE BLOOD COUNT Leukocytes [#/volume] in Blood by Automated count 6.5 10^3/uL 4.2 - 1 1.0 [facility] Erythrocytes [#/volume] in Blood by Automated count 4.15 10^6/uL 4. 20 - 5.40 L [facility] Hemoglobin [Mass/volume] in Blood 10.1 g/dL 12.0 - 16.0 L [facility] Hematocrit [Volume Fraction] of Blood by Automated count 33.3 % 3 7.0 - 47.0 L [facility] Erythrocyte mean corpuscular volume [Entitic volume] by Auto mated count 80.2 fL 81.0 - 101 L [facility] Erythrocyte mean corpuscular hemoglobin [Entitic mass] by Automated count 24.3 pg 27.0 - 34.0 L [facility] Erythrocyte mean corpuscular hemoglobin concentration [Mass/volume] by Automated count 30.3 g/dL 31.0 - 36.0 L [facility] Erythrocyte distribution width [Ratio] by Automated count 17.0 % 11.5 - 14.5 H [facility] Platelets [#/volume] in Blood by Automated count 328 10^3/uL 150 - 45 0 [facility] Platelet mean volume [Entitic volume] in Blood by Automated count 10.2 fL 7.4 - 10.4 [facility] Neutrophils/100 leukocytes in Blood by Automated count 60.0 % 37. 0 - 80.0 [facility] Lymphocytes/100 leukocytes in Blood by Manual count 28.0 % 25.0 - 40.0 [facility] Monocytes/100 leukocytes in Blood by Automated count 7.4 % 3.0 - 8.0 [facility] Eosinophils/100 leukocytes in Blood by Automated count 3.9 % 0.0 - 7.0 [facility] Basophils/100 leukocytes in Blood by Automated count 0.5 % 0.0 - 2.5 [facility] %IG 0.2 % 0.0 - 0.0 [facility] %NRBC 0.0 % 0.0 - 0.0 [facility] Neutrophils [#/volume] in Blood by Automated count 3.88 10^3/uL 2.00 - 6.90 [facility] Lymphocytes [#/volume] in Blood by Automated count 1.81 10^3/uL 0.60 - 3.40 [facility] Monocytes [#/volume] in Blood by Automated count 0.48 10^3/uL 0.00 - 0.90 [facility] Eosinophils [#/volume] in Blood by Automated count 0.25 10^3/uL 0.00 - 0.70 [facility] Basophils [#/volume] in Blood by Automated count 0.03 10^3/uL 0.00 - 0.20 [facility] #IG 0.01 10^3/uL 0.00 - 0.10 [facility] #NRBC 0.00 10^3/uL 0.00 - 0.00 [facility] MANUAL DIFF NOT INDICATED [facility] RBC MORPH NOT INDICATED [facility] spital ID Date Data Source [id number] 12/31/2019 04:12:00 PM EST [facility] Name Value Range Interpretation Code Description Data Leona rce(s) Supporting Document(s) Fibrin D-dimer FEU [Mass/volume] in Platelet poor plasma <0. 27 ug/mL 0.27 - 0.50 [facility] ID Date Data Source [id number] 12/28/2019 04:34:00 PM EST [facility] ([facility] Name Value Range Interpretation Code Description Data Leona rce(s) Supporting Document(s) Jules Fernando virus capsid IgM Ab [Presence] in Serum Laborat ory test result 0.0-35.9 Normal (applies to non-numeric results) [facility] ([facility] <content>Negative <36.0</content>
<content>Equivocal 36.0 - 43.9</content>
<content>Positive >43.9</content>
<content>Performed at: RN - [facility]</content>
<content>[address] [place] [phone]</content>
<content>[employer]: Virginie Acevedo MD, Phone: [phone]</content>
<content></content> ID Date Data Source [id number] 12/28/2019 04:34:00 PM EST [facility] ([facility] Name Value Range Interpretation [...] result Normal (applies to non- numeric results) [facility] ([facility] ) <content>Units are mL/min/1.73 m2</content>
<content></content>
<content>Chronic Kidney Disease Staging per NKF:</content>
<content></content>
<content>Stage I & II GFR >=60 Normal to Mildly Decreased</content>
<content>Stage III GFR 30- 59 Moderately Decreased</content>
<content>Stage IV GFR 15-29 Severely Decreased</content>
<content>Stage V GFR <15 Very Little GFR Left</content>
<content>ESRD GFR <15 on PRINTING TECHNICIAN</content>
<content></content> Sodium Level 139 meq/L 136-145 Normal (applies to non-numeric res ults) [facility] ([facility] Carbon Dioxide Level 28 meq/L 21-32 Normal (applies to non-num ana rosa results) [facility] ([facility] Chloride Level 105 meq/L 98-107 Normal (applies to non-numeric r esults) [facility] ([facility] Anion Gap 6 meq/L 8-16 [...] Normal (applies to non-numeric re sults) [facility] ([facility] Albumin/Globulin Ratio 1.2 1.2-2.2 Normal (applies to non-n umeric results) [facility] ([facility] Albumin 3.6 GM/DL 3.2-5.2 Normal (applies to non-numeric resul ts) [facility] ([facility] ID Date Data Source [id number] 12/28/2019 04:34:00 PM EST [facility] ([facility] Name Value Range Interpretation Code Description Data Leona rce(s) Supporting Document(s) Hemoglobin 10.5 g/dL 12.0-15.5 Below low normal [facility] ( [facility] Red Blood Count 4.32 10 4.00-5.40 Normal (applies to non-numeric results) [facility] ([facility] White Blood Count 8.7 10 4.0-10.0 Normal (applies to non-numeri c results) [facility] ([facility] Hematocrit 35.1 % 36.0-47.0 Below low normal [facility] ( [facility] Mean Corpuscular Volume 81.3 fl 80.0-96.0 Normal ( applies to non-numeric results) [facility] ([facility] ) Mean Corpuscular HGB Conc 29.9 g/dL 32.0-36.5 Below low normal [facility] ([facility] Red Cell Distribution Width 16.7 % 11.5-14.5 Above high normal [facility] ([facility] Mean Corpuscular Hemoglobin 24.3 pg 27.0-33.0 Below low normal [facility] ([facility] Lymph % 19.4 % 24.0-44.0 Below low normal [facility] ( [facility] Neutrophils % 71.8 % 36.0-66.0 Above high normal [facility] ([facility] Platelet Count, Automated 344 10 150-450 Normal (applies to non-numeric results) [facility] ([facility] ) [place] % 6.7 % 0.0-5.0 Above high normal [...] resul ts) [facility] ([facility] [place] # 0.6 10 0.0-0.8 Normal (applies to non-numeric resul ts) [facility] ([facility] Eos # 0.1 10 0.0-0.5 Normal (applies to non-numeric resul ts) [facility] ([facility] Baso # 0.0 10 0.0-0.2 Normal (applies to non-numeric resul ts) [facility] ([facility] ID Date Data Source [id number] 12/28/2019 02:51:00 PM EST [facility] ([facility] Name Value Range Interpretation Code Description Data Leona rce(s) Supporting Document(s) Color Urine Laboratory test result M [facility] ([facility] Appearance of Urine Laboratory test result [facility] ([facility] Specific [place] 1.020 1.00-1.03 [facility] ([facility] PH Urine 6.5 5.0-8.0 [facility] ([facility] Glucose Urine Laboratory test result [facility] ([facility] Bilirubin.total [Presence] in Urine by Test strip Laboratory test res ult [facility] ([facility] Blood Urine Laboratory test result M [facility] ([facility] Ketones Laboratory test result [facility] ([facility] Protein Urine Laboratory test result [facility] ([facility] Nitrite Laboratory test result [facility] ([facility] Urobilinogen 0.2 EU/dl 0.2-1.0 [facility] ([facility] Leukocytes Laboratory test result [facility] ([facility] ID Date Data Source [id number] 12/28/2019 02:50:00 PM EST [facility] ([facility] Name Value Range Interpretation Code Description Data Leona rce(s) Supporting Document(s) Urine Culture, Routine Laboratory test result [facility] ([facility] SRC:URINE Bacteria identified in Urine by Culture Laboratory test result [facility] ([facility] SRC:URINE ID Date Data Source [id number] 12/28/2019 01:37:00 PM EST [facility] ([facility] Name Value Range Interpretation Code Description Data Leona rce(s) Supporting Document(s) Glucometer-[facility] 82 mg/dL 65-109 [facility] ([facility] ID Date Data Source [id number] 11/06/2019 11:41:00 AM EDT [facility] ([facility] Name Value Range Interpretation Code Description Data Leona rce(s) Supporting Document(s) A/C Ratio Laboratory test result [facility] ([facility] Creatinine, Urine 10 mg/dL 10-300 [facility] ([facility] Alb 10 mg/L 1-30 [facility] ID Date Data Source [id number] 11/06/2019 11:40:00 AM EDT [facility] ([facility] Name Value Range Interpretation Code Description Data Leona rce(s) Supporting Document(s) Chol 136 mg/dL 0-200 [facility] ([facility] NORMAL [...] HCT IS 5% LESS SOURCE FOR DATA: [employer]Plus 1800 OPERATION MANUAL( AUTOMATED BLOOD COUNTS AND [...] HCT IS 5% LESS SOURCE FOR DATA: [employer] 1800 OPERATION MANUAL( AUTOMATED BLOOD COUNTS AND [...] HCT IS 5% LESS SOURCE FOR DATA: [employer] 1800 OPERATION MANUAL( AUTOMATED BLOOD COUNTS AND [...] 2-19 YEARS EXCLUSIVE. Trig 109 mg/dL 40-[address] [facility] ([facility] [...] HCT IS 5% LESS SOURCE FOR DATA: [employer] DYN 1800 OPERATION MANUAL( AUTOMATED BLOOD COUNTS [...] 2-19 YEARS EXCLUSIVE. Cho/HDL Ratio 2.2 CALC [facility] ([facility] NORMAL RANGES Age WBC RBC HGB [...] HCT IS 5% LESS SOURCE FOR DATA: [employer] 1800 OPERATION MANUAL( AUTOMATED BLOOD COUNTS AND [...] 2-19 YEARS EXCLUSIVE. ID Date Data Source [id number] 11/06/2019 11:40:00 AM EDT [facility] ([facility] Name Value Range Interpretation Code Description Data Leona rce(s) Supporting Document(s) WBC 5.5 10E3/uL 4.1-10.9 [facility] ([facility] NORMAL RANGES Age WBC RBC [...] HCT IS 5% LESS SOURCE FOR DATA: famPlus 1800 OPERATION MANUAL( AUTOMATED BLOOD COUNTS AND [...] 2-19 YEARS EXCLUSIVE. RBC 4.23 10E6/uL 4.20-6.[address] [facility] ([facility] NORMAL RANGES Age WBC [...] HCT IS 5% LESS SOURCE FOR DATA: famPlus 1800 OPERATION MANUAL( AUTOMATED BLOOD COUNTS AND [...] HCT IS 5% LESS SOURCE FOR DATA: famPlus 1800 OPERATION MANUAL( AUTOMATED BLOOD COUNTS AND [...] HCT IS 5% LESS SOURCE FOR DATA: famPlus 1800 OPERATION MANUAL( AUTOMATED BLOOD COUNTS AND [...] EXCLUSIVE. MCV 83.2 fL 80.0-97.[address] [facility] ([facility] NORMAL [...] HCT IS 5% LESS SOURCE FOR DATA: famPlus 1800 OPERATION MANUAL( AUTOMATED BLOOD COUNTS AND [...] HCT IS 5% LESS SOURCE FOR DATA: famPlus 1800 OPERATION MANUAL( AUTOMATED BLOOD COUNTS AND [...] EXCLUSIVE. PLT 297 10E3/uL 140-[address] [facility] ([facility] NORMAL RANGES Age WBC RBC [...] HCT IS 5% LESS SOURCE FOR DATA: famPlus 1800 OPERATION MANUAL( AUTOMATED BLOOD COUNTS AND [...] HCT IS 5% LESS SOURCE FOR DATA: famPlus 1800 OPERATION MANUAL( AUTOMATED BLOOD COUNTS AND [...] RDW-CV 15.6 % 11.5-14.5 Above high normal [facility] ([facility] NORMAL RANGES Age WBC RBC [...] HCT IS 5% LESS SOURCE FOR DATA: famPlus 1800 OPERATION MANUAL( AUTOMATED BLOOD COUNTS AND [...] 2-19 YEARS EXCLUSIVE. MXD% 7.7 % 0.1-24.0 [facility] ([facility] NORMAL [...] HCT IS 5% LESS SOURCE FOR DATA: famPlus 1800 OPERATION MANUAL( AUTOMATED BLOOD COUNTS AND [...] 2-19 YEARS EXCLUSIVE. Lym# 2.0 10E3/uL 0.6-4.1 [facility] ([facility] NORMAL RANGES Age WBC RBC [...] HCT IS 5% LESS SOURCE FOR DATA: famPlus 1800 OPERATION MANUAL( AUTOMATED BLOOD COUNTS AND [...] 2-19 YEARS EXCLUSIVE. Neut% 56.8 % 37.0-92.[address] [facility] ([facility] NORMAL [...] HCT IS 5% LESS SOURCE FOR DATA: famPlus 1800 OPERATION MANUAL( AUTOMATED BLOOD COUNTS AND [...] EXCLUSIVE. MPV 11.2 fL 9.0-13.[address] [facility] ([facility] NORMAL [...] HCT IS 5% LESS SOURCE FOR DATA: famPlus 1800 OPERATION MANUAL( AUTOMATED BLOOD COUNTS AND [...] 2-19 YEARS EXCLUSIVE. MXD# 0.4 10E3/uL 0.0-1.8 [facility] ([facility] NORMAL RANGES Age WBC RBC [...] HCT IS 5% LESS SOURCE FOR DATA: famPlus 1800 OPERATION MANUAL( AUTOMATED BLOOD COUNTS AND [...] 2-19 YEARS EXCLUSIVE. Neut# 3.1 % 2.0-7.[address] [facility] ([facility] [...] HCT IS 5% LESS SOURCE FOR DATA: famPlus 1800 OPERATION MANUAL( AUTOMATED BLOOD COUNTS AND [...] 2-19 YEARS EXCLUSIVE. ID Date Data Source [id number] 11/06/2019 11:40:00 AM EDT SHAN[facility] ([facility] Name Value Range Interpretation Code Description Data Leona rce(s) Supporting Document(s) BUN 18 mg/dL 8- [facility] ([facility] NORMAL RANGES Age [...] HCT IS 5% LESS SOURCE FOR DATA: famPlus 1800 OPERATION MANUAL( AUTOMATED BLOOD COUNTS AND [...] HCT IS 5% LESS SOURCE FOR DATA: famPlus 1800 OPERATION MANUAL( AUTOMATED BLOOD COUNTS AND [...] HCT IS 5% LESS SOURCE FOR DATA: famPlus 1800 OPERATION MANUAL( AUTOMATED BLOOD COUNTS AND [...] EXCLUSIVE. BUN/Creatinine Ratio 21.[address] [facility] ([facility] NORMAL RANGES Age WBC [...] HCT IS 5% LESS SOURCE FOR DATA: famPlus 1800 OPERATION MANUAL( AUTOMATED BLOOD COUNTS AND [...] HCT IS 5% LESS SOURCE FOR DATA: famPlus 1800 OPERATION MANUAL( AUTOMATED BLOOD COUNTS AND [...] 2-19 YEARS EXCLUSIVE. Na 136 mmol/L 136-[address] [facility] ([facility] NORMAL RANGES Age WBC RBC [...] HCT IS 5% LESS SOURCE FOR DATA: [employer]oo DYN 1800 OPERATION MANUAL( AUTOMATED BLOOD COUNTS [...] HCT IS 5% LESS SOURCE FOR DATA: famPlus 1800 OPERATION MANUAL( AUTOMATED BLOOD COUNTS AND [...] 2-19 YEARS EXCLUSIVE. CA 9.5 mg/dL 8.6-10.[address] [facility] ([facility] [...] HCT IS 5% LESS SOURCE FOR DATA: famPlus 1800 OPERATION MANUAL( AUTOMATED BLOOD COUNTS AND [...] 2-19 YEARS EXCLUSIVE. Co2 25.3 mmol/L 22.0-29.0 [facility] ([facility] NORMAL RANGES Age WBC RBC [...] HCT IS 5% LESS SOURCE FOR DATA: famPlus 1800 OPERATION MANUAL( AUTOMATED BLOOD COUNTS AND [...] HCT IS 5% LESS SOURCE FOR DATA: famPlus 1800 OPERATION MANUAL( AUTOMATED BLOOD COUNTS AND [...] TP 6.1 g/dL 6.6-8.7 Below low normal [facility] ( [facility] NORMAL RANGES Age WBC [...] HCT IS 5% LESS SOURCE FOR DATA: famPlus 1800 OPERATION MANUAL( AUTOMATED BLOOD COUNTS AND [...] 2-19 YEARS EXCLUSIVE. Alb 4.2 g/dL 3.4-4.8 [facility] ([facility] NORMAL [...] HCT IS 5% LESS SOURCE FOR DATA: famPlus 1800 OPERATION MANUAL( AUTOMATED BLOOD COUNTS AND [...] HCT IS 5% LESS SOURCE FOR DATA: famPlus 1800 OPERATION MANUAL( AUTOMATED BLOOD COUNTS AND [...] 2-19 YEARS EXCLUSIVE. Alp 95.1 U/L 35-129 [facility] ([facility] [...] HCT IS 5% LESS SOURCE FOR DATA: famPlus 1800 OPERATION MANUAL( AUTOMATED BLOOD COUNTS AND [...] HCT IS 5% LESS SOURCE FOR DATA: famPlus 1800 OPERATION MANUAL( AUTOMATED BLOOD COUNTS AND [...] HCT IS 5% LESS SOURCE FOR DATA: famPlus 1800 OPERATION MANUAL( AUTOMATED BLOOD COUNTS AND [...] Ast (Sgot) 15 U/L 0-[address] [facility] ([facility] NORMAL RANGES Age [...] HCT IS 5% LESS SOURCE FOR DATA: famPlus 1800 OPERATION MANUAL( AUTOMATED BLOOD COUNTS AND [...] 2-19 YEARS EXCLUSIVE. Anion Gap 18 mmol/L [facility] ([facility] NORMAL [...] HCT IS 5% LESS SOURCE FOR DATA: famPlus 1800 OPERATION MANUAL( AUTOMATED BLOOD COUNTS AND [...] HCT IS 5% LESS SOURCE FOR DATA: famPlus 1800 OPERATION MANUAL( AUTOMATED BLOOD COUNTS AND [...] HCT IS 5% LESS SOURCE FOR DATA: famPlus 1800 OPERATION MANUAL( AUTOMATED BLOOD COUNTS AND [...] INDIVIDUALA AGED 2-19 YEARS EXCLUSIVE. eGFR Non-Afr. [place]er 65 # [facility] ([facility] [...] HCT IS 5% LESS SOURCE FOR DATA: famPlus 1800 OPERATION MANUAL( AUTOMATED BLOOD COUNTS AND [...] 2-19 YEARS EXCLUSIVE. ID Date Data Source [id number] 11/06/2019 11:40:00 AM EDT [facility] ([facility] Name Value Range Interpretation Code Description Data Leona rce(s) Supporting Document(s) Hemoglobin A1c/Hemoglobin.total in Blood 8.0 % 4.8-5.6 Above high normal [facility] ([facility] <content>Prediabetes: 5.7 - 6.4</content >
<content>Diabetes: >6.4</content>
<content>Glycemic control for adults with diabetes: <7.0</content>
<content></content> ID Date Data Source [id number] 11/06/2019 11:40:00 AM EDT [facility] ([facility] Name Value Range Interpretation Code Description Data Leona rce(s) Supporting Document(s) Hemoglobin A1c/Hemoglobin.total in Blood Laboratory test result [facility] ([facility] Procedure Social History Code Duration Value Status Description Data Source(s ) Smoking 10/10/2020 12:00:00 AM EDT Patient is a former smoker completed Patient is a former smoker [facility] ([facility] ) Smoking 09/03/2020 12:00:00 AM EDT Patient is a former smoker completed Patient is a former smoker [facility] ([facility]) Vital Signs ID Date Data Source UNK Name Value Range Interpretation Code Description Data Source(s) Body temperature 97.4 [degF] 97.4 [degF] [facility] ([facility] Systolic blood pressure 126 mm[Hg] 126 mm[Hg] M [facility] ([facility] Heart rate 70 /min 70 /min [facility] ([facility] Diastolic blood pressure 70 mm[Hg] 70 mm[Hg] [facility] ([facility] Oxygen saturation in Arterial blood by Pulse oximetry 97 % 97 % [facility] ([facility] Body weight 170.00 [lb_av] 170.00 [lb_av] MEDEN T ([facility] [place] body weight 100 [lb_av] 100 [lb_av] MED[facility] T ([facility] Body mass index (BMI) [Ratio] 32.7 kg/m2 32.7 k g/m2 [facility] ([facility] Respiratory rate 14 /min 14 /min [facility] ( [facility] Body height 60.5 [in_i] 60.5 [in_i] [facility] ([facility] 5'0.50" Systolic blood pressure 148 mm[Hg] 148 mm[Hg] M EDENT ([facility]) Diastolic blood pressure 86 mm[Hg] 86 mm[Hg] [facility] ([facility]) Body temperature 98.4 [degF] 98.4 [degF] [facility] ([facility]) Body weight 77.225 kg 77.225 kg [facility] ([facility]) [place] body weight 100 [lb_av] 100 [lb_av] MEDEN T ([facility]) Body height 59 [in_i] 59 [in_i] [facility] ([facility]) 4'11" Body weight 170.25 [lb_av] 170.25 [lb_av] MED[facility] T ([facility]) Body mass index (BMI) [Ratio] 34.4 kg/m2 34.4 k g/m2 [facility] ([facility]) Body surface area Derived from formula 1.72 m2 1.[address] [facility] ([facility]) Systolic blood pressure 140 mm[Hg] 140 mm[Hg] M EDENT ([facility] Diastolic blood pressure 64 mm[Hg] 64 mm[Hg] [facility] ([facility] Body temperature 97.0 [degF] 97.0 [degF] [facility] ([facility] Heart rate 72 /min 72 /min [facility] ([facility] Respiratory rate 18 /min 18 /min [facility] ( [facility] Body height 60.5 [in_i] 60.5 [in_i] [facility] ([facility] 5'0.50" Body weight 172.00 [lb_av] 172.00 [lb_av] MEDEN T ([facility] [place] body weight 100 [lb_av] 100 [lb_av] [facility] T ([facility] Body mass index (BMI) [Ratio] 33.0 kg/m2 33.0 k g/m2 [facility] ([facility] Oxygen saturation in Arterial blood by Pulse oximetry 98 % 98 % [facility] ([facility] [place] body weight 100 [lb_av] 100 [lb_av] MED[facility] T ([facility] Body mass index (BMI) [Ratio] 33.2 kg/m2 33.2 k g/m2 [facility] ([facility] Respiratory rate 18 /min 18 /min [facility] ( [facility] Systolic blood pressure 124 mm[Hg] 124 mm[Hg] M EDENT ([facility] Diastolic blood pressure 84 mm[Hg] 84 mm[Hg] [facility] ([facility] Body temperature 98.4 [degF] 98.4 [degF] [facility] ([facility] Heart rate 78 /min 78 /min [facility] ([facility] Body height 60.5 [in_i] 60.5 [in_i] [facility] ([facility] 5'0.50" Body weight 173.00 [lb_av] 173.00 [lb_av] MEDEN T ([facility] Oxygen saturation in Arterial blood by Pulse oximetry 97 % 97 % [facility] ([facility] Body temperature 97.4 [degF] 97.4 [degF] [facility] ([facility], ) Body height 60.5 [in_i] 60.5 [in_i] [facility] ([facility] 5'0.50" Body weight 176.00 [lb_av] 176.00 [lb_av] MEDEN T ([facility] [place] body weight 100 [lb_av] 100 [lb_av] MED[facility] T ([facility] Body mass index (BMI) [Ratio] 33.8 kg/m2 33.8 k g/m2 [facility] ([facility] Oxygen saturation in Arterial blood by Pulse oximetry 99 % 99 % [facility] ([facility] Systolic blood pressure 122 mm[Hg] 122 mm[Hg] M EDENT ([facility] Diastolic blood pressure 74 mm[Hg] 74 mm[Hg] [facility] ([facility] Body temperature 98.0 [degF] 98.0 [degF] [facility] ([facility] Heart rate 90 /min 90 /min [facility] ([facility] Respiratory rate 18 /min 18 /min [facility] ( [facility] Systolic blood pressure 112 mm[Hg] 112 mm[Hg] M EDENT ([facility] Diastolic blood pressure 72 mm[Hg] 72 mm[Hg] [facility] ([facility] Body temperature 97.5 [degF] 97.5 [degF] [facility] ([facility] Heart rate 78 /min 78 /min [facility] ([facility] Respiratory rate 18 /min 18 /min [facility] ( [facility] Body height 60.5 [in_i] 60.5 [in_i] [facility] ([facility] 5'0.50" Body weight 182.00 [lb_av] 182.00 [lb_av] MEDEN T ([facility] [place] body weight 100 [lb_av] 100 [lb_av] [facility] T ([facility] Body mass index (BMI) [Ratio] 35.0 kg/m2 35.0 k g/m2 [facility] Oxygen saturation in Arterial blood by Pulse oximetry 97 % 97 % [facility] ([facility] Body surface area Derived from formula 1.77 m2 1.77 m2 [facility] ([facility], ) Body weight 82.102 kg 82.[address] [facility] ([facility], ) Systolic blood pressure 155 mm[Hg] 155 mm[Hg] M EDENT ([facility], ) Diastolic blood pressure 78 mm[Hg] 78 mm[Hg] [facility] ([facility], ) Heart rate 73 /min 73 /min [facility] ([facility], ) Body height 59 [in_i] 59 [in_i] [facility] ([facility], ) 4'11" Body weight 181.00 [lb_av] 181.00 [lb_av] MEDEN T ([facility], ) Body mass index (BMI) [Ratio] 36.6 kg/m2 36.6 k g/m2 [facility] ([facility], ) [place] body weight 100 [lb_av] 100 [lb_av] MED[facility] T ([facility], ) Heart rate 70 /min 70 /min [facility] ([facility] ) Body height 59.1 [in_i] 59.1 [in_i] [facility] ([facility] ) 4'11.10" Systolic blood pressure 121 mm[Hg] 121 mm[Hg] M EDENT ([facility] ) Body weight 183.19 [lb_av] 183.19 [lb_av] MED[facility] T ([facility] ) Diastolic blood pressure 64 mm[Hg] 64 mm[Hg] [facility] ([facility] ) Body mass index (BMI) [Ratio] 36.9 kg/m2 36.9 k g/m2 [facility] ([facility] ) Oxygen saturation in Arterial blood by Pulse oximetry 98 % 98 % [facility] ([facility] ) Systolic blood pressure 139 mm[Hg] 139 mm[Hg] M EDENT ([facility], [facility]) Diastolic blood pressure 82 mm[Hg] 82 mm[Hg] [facility] ([facility], [facility]) Heart rate 65 /min 65 /min [facility] ([facility], [facility]) Respiratory rate 13 /min 13 /min [facility] ( [facility], [facility]) Oxygen saturation in Arterial blood by Pulse oximetry 97 % 97 % [facility] ([facility], [facility]) Body temperature 98.0 [degF] 98.0 [degF] [facility] ([facility], [facility]) Body weight 185.00 [lb_av] 185.00 [lb_av] MEDEN T ([facility], [facility]) Body height 59 [in_i] 59 [in_i] [facility] ([facility], [facility]) 4'11" Body mass index (BMI) [Ratio] 37.4 kg/m2 37.4 k g/m2 [facility] ([facility], [facility]) Systolic blood pressure 114 mm[Hg] 114 mm[Hg] M EDENT ([facility] Diastolic blood pressure 70 mm[Hg] 70 mm[Hg] [facility] ([facility] Body temperature 98.1 [degF] 98.1 [degF] [facility] ([facility] Body height 60.5 [in_i] 60.5 [in_i] [facility] ([facility] 5'0.50" Heart rate 60 /min 60 /min [facility] ([facility] Respiratory rate 14 /min 14 /min [facility] ( [facility] Body weight 185.00 [lb_av] 185.00 [lb_av] MEDEN T ([facility] [place] body weight 100 [lb_av] 100 [lb_av] MED[facility] T ([facility] Body mass index (BMI) [Ratio] 35.5 kg/m2 35.5 k g/m2 [facility] ([facility] Oxygen saturation in Arterial blood by Pulse oximetry 97 % 97 % [facility] ([facility] Body height 59.1 [in_i] 59.1 [in_i] [facility] ([facility]) 4'11.10" Body weight 185.25 [lb_av] 185.25 [lb_av] MED[facility] T ([facility]) Body mass index (BMI) [Ratio] 37.3 kg/m2 37.3 k g/m2 [facility] ([facility]) Oxygen saturation in Arterial blood by Pulse oximetry 98 % 98 % [facility] ([facility]) Systolic blood pressure 114 mm[Hg] 114 mm[Hg] M EDENT ([facility]) Diastolic blood pressure 76 mm[Hg] 76 mm[Hg] [facility] ([facility]) Heart rate 76 /min 76 /min [facility] ([facility]) Body temperature 97.1 [degF] 97.1 [degF] [facility] ([facility]) Body height 59 [in_i] 59 [in_i] [facility] ([facility]) 4'11" Body weight 188.00 [lb_av] 188.00 [lb_av] MED[facility] T ([facility]) Body mass index (BMI) [Ratio] 38.0 kg/m2 38.0 k g/m2 [facility] ([facility]) [place] body weight 100 [lb_av] 100 [lb_av] MED[facility] T ([facility]) Body weight 85.277 kg 85.[address] [facility] ([facility]) Body surface area Derived from formula 1.80 m2 1.[address] [facility] ([facility]) Systolic blood pressure 149 mm[Hg] 149 mm[Hg] M EDENT ([facility]) Diastolic blood pressure 78 mm[Hg] 78 mm[Hg] [facility] Body height 59 [in_i] 59 [in_i] [facility] 4'11" Body weight 188.00 [lb_av] 188.00 [lb_av] MED[facility] T ([facility]) Body mass index (BMI) [Ratio] 38.0 kg/m2 38.0 k g/m2 [facility] ([facility]) [place] body weight 100 [lb_av] 100 [lb_av] MED[facility] T ([facility]) Body weight 85.277 kg 85.[address] [facility] ([facility]) Body surface area Derived from formula 1.80 m2 1.[address] [facility] ([facility]) Body mass index (BMI) [Ratio] 37.4 kg/m2 37.4 k g/m2 [facility] ([facility]) Systolic blood pressure 149 mm[Hg] 149 mm[Hg] M EDENT ([facility]) Diastolic blood pressure 80 mm[Hg] 80 mm[Hg] [facility] ([facility]) Heart rate 73 /min 73 /min [facility] ([facility]) Body height 59 [in_i] 59 [in_i] [facility] ([facility]) 4'11" Body weight 185.38 [lb_av] 185.38 [lb_av] MED[facility] T ([facility]) [place] body weight 100 [lb_av] 100 [lb_av] MED[facility] T ([facility]) Body weight 84.086 kg 84.[address] [facility] ([facility]) Body surface area Derived from formula 1.79 m2 1.[address] [facility] ([facility]) Diastolic blood pressure 81 mm[Hg] 81 mm[Hg] [facility] ([facility]) Body height 59 [in_i] 59 [in_i] [facility] ([facility]) 4'11" Body weight 184.00 [lb_av] 184.00 [lb_av] MED[facility] T ([facility]) Body mass index (BMI) [Ratio] 37.2 kg/m2 37.2 k g/m2 [facility] ([facility]) [place] body weight 100 [lb_av] 100 [lb_av] MED[facility] T ([facility]) Body weight 83.462 kg 83.[address] [facility] ([facility]) Body surface area Derived from formula 1.78 m2 1.[address] [facility] ([facility]) Systolic blood pressure 116 mm[Hg] 116 mm[Hg] [facility] Systolic blood pressure 119 mm[Hg] 119 mm[Hg] M [facility] ([facility]) Diastolic blood pressure 57 mm[Hg] 57 mm[Hg] [facility] ([facility]) Heart rate 64 /min 64 /min [facility] ([facility]) Body height 59 [in_i] 59 [in_i] [facility] ([facility]) 4'11" Body weight 180.38 [lb_av] 180.38 [lb_av] MED[facility] T ([facility]) Body mass index (BMI) [Ratio] 36.4 kg/m2 36.4 k g/m2 [facility] ([facility]) [place] body weight 100 [lb_av] 100 [lb_av] [facility] T ([facility]) Body weight 81.818 kg 81.[address] [facility] ([facility]) Body surface area Derived from formula 1.77 m2 1.[address] [facility] ([facility]) Systolic blood pressure 136 mm[Hg] 136 mm[Hg] M EDENT ([facility]) Diastolic blood pressure 74 mm[Hg] 74 mm[Hg] [facility] ([facility]) Body height 59 [in_i] 59 [in_i] [facility] ([facility]) 4'11" Body weight 185.00 [lb_av] 185.00 [lb_av] [facility] T ([facility]) Body mass index (BMI) [Ratio] 37.4 kg/m2 37.4 k g/m2 [facility] ([facility]) [place] body weight 100 [lb_av] 100 [lb_av] MED[facility] T ([facility]) Body weight 83.916 kg 83.[address] [facility] ([facility]) Body surface area Derived from formula 1.78 m2 1.[address] [facility] ([facility]) Body temperature 96.9 [degF] 96.9 [degF] [facility] ([facility]) Body temperature 96.8 [degF] 96.8 [degF] [facility] ([facility]) Body temperature 97.2 [degF] 97.2 [degF] [facility] ([facility]) Body height 60 [in_i] 60 [in_i] [facility] ([facility]) 5'0" Body weight 186.50 [lb_av] 186.50 [lb_av] MEDEN T ([facility]) Body mass index (BMI) [Ratio] 36.4 kg/m2 36.4 k g/m2 MEDENT ([facility]) Systolic blood pressure 108 mm[Hg] 108 mm[Hg] M EDENT [facility]) Diastolic blood pressure 56 mm[Hg] 56 mm[Hg] MED[facility] ([facility], [facility]) Heart rate 75 /min 75 /min MED[facility] ([facility], [facility]) Respiratory rate 18 /min 18 /min [facility] ( [facility], [facility]) Oxygen saturation in Arterial blood by Pulse oximetry 96 % 96 % [facility] ([facility], [facility]) Body temperature 97.0 [degF] 97.0 [degF] [facility], [facility]) Body weight 185.00 [lb_av] 185.00 [lb_av] MEDEN T ([facility], [facility]) Systolic blood pressure 128 mm[Hg] 128 mm[Hg] M [facility] ([facility]) Diastolic blood pressure 66 mm[Hg] 66 mm[Hg] [facility] ([facility]) Body height 59 [in_i] 59 [in_i] [facility] ([facility]) 4'11" Body weight 191.00 [lb_av] 191.00 [lb_av] MEDEN T ([facility]) Body mass index (BMI) [Ratio] 38.6 kg/m2 38.6 k g/m2 [facility] ([facility]) [place] body weight 100 [lb_av] 100 [lb_av] [facility] Body weight 86.638 kg 86.[address] [facility] ([facility]) Body surface area Derived from formula 1.81 m2 1.[address] [facility] ([facility]) Systolic blood pressure 124 mm[Hg] 124 mm[Hg] M EDENT ([facility] Body height 60.5 [in_i] 60.5 [in_i] [facility] 5'0.50" Body weight 188.00 [lb_av] 188.00 [lb_av] MEDEN T ([facility] [place] body weight 100 [lb_av] 100 [lb_av] MEDEN T ([facility] Body mass index (BMI) [Ratio] 36.1 kg/m2 36.1 k g/m2 [facility] ([facility] Oxygen saturation in Arterial blood by Pulse oximetry 97 % 97 % [facility] ([facility] Diastolic blood pressure 70 mm[Hg] 70 mm[Hg] [facility] ([facility] Body temperature 98.5 [degF] 98.5 [degF] [facility] ([facility] Heart rate 72 /min 72 /min [facility] ([facility] Respiratory rate 16 /min 16 /min [facility] ( [facility] Body weight 191.00 [lb_av] 191.00 [lb_av] MEDEN T ([facility] Body mass index (BMI) [Ratio] 36.7 kg/m2 36.7 k g/m2 [facility] ([facility] Body height 60.5 [in_i] 60.5 [in_i] [facility] ([facility] 5'0.50" Systolic blood pressure 122 mm[Hg] 122 mm[Hg] M EDENT ([facility] Diastolic blood pressure 66 mm[Hg] 66 mm[Hg] [facility] ([facility] Body temperature 98.2 [degF] 98.2 [degF] [facility] ([facility] Heart rate 70 /min 70 /min [facility] ([facility] Respiratory rate 14 /min 14 /min [facility] ( [facility] [place] body weight 100 [lb_av] 100 [lb_av] MEDEN T ([facility] Oxygen saturation in Arterial blood by Pulse oximetry 97 % 97 % [facility] ([facility]
[2020-12-28 17:30] LABS: CREATININE FOR GFR 1.01 MG/DL (0.55-1.30)
[2020-12-28 17:31] LABS: C REACTIVE PROTEIN QUANTITATIV 1.63 MG/DL (0.00-0.30); CALCIUM LEVEL 9.2 MG/DL (8.8-10.2); GLOMERULAR FILTRATION RATE 57.7 (>39); POTASSIUM SERUM 3.9 MEQ/L (3.5-5.1)
[2020-12-28 17:44] LABS: ERYTHROCYTE SEDIMENTATION RATE 25 mm/hr (0-30)
[2020-12-28] MEDS ORDERED: HumuLIN R (REGULAR) INSULIN (NovoLIN R) **100U/ML** PER UNIT IV ONE (17:55)
[2020-12-28] MEDS ORDERED: ISOVUE-370 76% 100ML VIAL As Ordered ONE (17:58)
[2020-12-28 19:17] LABS: RSV AMPLIFICATION NEGATIVE (NEGATIVE)
--- NOTE | 2020-12-28 19:46 | REPVR ---
PROCEDURE INFORMATION: Exam: CT Abdomen And Pelvis With Contrast Exam date and time: 12/28/2020 6:15 PM Age: 70 years old Clinical indication: Pain; Other: Left lateral buttock; Additional info: Left lateral buttock pain, RO infection, FX TECHNIQUE: Imaging protocol: Computed tomography of the abdomen and pelvis with contrast. Radiation optimization: All CT scans at this facility use at least one of these dose optimization techniques: automated exposure control; mA and/or kV adjustment per patient size (includes targeted exams where dose is matched to clinical indication); or iterative reconstruction. Contrast material: ISOVUE 370; Contrast volume: 100 ml; Contrast route: INTRAVENOUS (IV); COMPARISON: CT ABD/PEL W/IV CONTRAST ONLY 09/17/2020 8:29 PM FINDINGS: Liver: Normal. No mass. Gallbladder and bile ducts: Normal. No calcified stones. No ductal dilation. Pancreas: Normal. No ductal dilation. Spleen: Normal. No splenomegaly. Adrenal glands: Normal. No mass. Kidneys and ureters: Normal. No hydronephrosis. Stomach and bowel: Unremarkable. No obstruction. No mucosal thickening. Appendix: No evidence of appendicitis. Intraperitoneal space: Unremarkable. No free air. No significant fluid collection. Vasculature: Atherosclerotic calcification of the abdominal aorta and bilateral iliac vessels. Lymph nodes: Unremarkable. No enlarged lymph nodes. Urinary bladder: Unremarkable as visualized. Reproductive: Unremarkable as visualized. Bones/joints: Degenerative changes of the spine. Soft tissues: Soft tissue edema of the left anterior abdominal wall. skin thickening of the left lateral posterior buttock . IMPRESSION: 1. Skin thickening of the left posterior buttock may represent cellulitis. 2. Soft tissue edema of the left anterior abdominal subcutaneous tissues. Correlation with subcutaneous injections/trauma. Electronically signed by: Matt Polanco On 12/28/2020 19:46:26 PM
[2020-12-28 20:00] VITALS: BP 131/63
[2020-12-28] MEDS ORDERED: CEPHALEXIN 500 MG CAP PO ONE (20:05)
[2020-12-28] MEDS ORDERED: CEPH500C PO (20:34)
== END 2020-12-28 20:59 | disposition home or self-care (01) ==
LOC: M ED 16:21
DX: L03.317 Cellulitis of buttock (principal); M51.37 Other intervertebral disc degeneration, lumbosacral region; E11.9 Type 2 diabetes mellitus without complications; I10 Essential (primary) hypertension; E66.9 Obesity, unspecified; R51.9 Headache, unspecified; R56.9 Unspecified convulsions; Z79.4 Long term (current) use of insulin; Z79.899 Other long term (current) drug therapy; Z91.89 Other specified personal risk factors, not elsewhere classified
CPT/HCPCS: 72170; 73502; 73552; 74177; 80048; 85025; 85652; 86140; 87631; 99284; Q9967

== ENCOUNTER 2021-01-06 19:50 | Emergency (ER) | payer MEDICARE, OTHER ==
[~2021-01-06] VITALS: Ht 152.4 cm; Wt 78.6 kg
[~2021-01-06 19:50] MED LIST changes: +AMLO1TAB24; +ASPI81TA26; +CEPH500C PO; +DULO1CAP6; +INDA125TA; +LISI-898; +MAGN400T33
--- OUTSIDE RECORDS SUMMARY | 2021-01-06 19:58 | CCD | Continuity of Care Document ---
Author Author Elsy QUIROS M.D. Organization Unknown Address [address] [place] [id number] Phone [phone] Care Team Providers Care Supervisor Assembly Name Role Phone Dilia Cain M.D. AUTM [phone] Problems Active Problems Provider Date Essential hypertension [...] garettes - Quit 9 1/2 yrs ago Allergies and adverse reactions Active Allergies Criticality Reaction | Severity Comments Date Tape Unable to assess criticality rash 07/08/2018 Medications Active Medications SIG Qnty Indications Ordering Provide r Date Lisinopril 5mg Tablets take one tablet by mouth every am 90tabs Jamison Quiros M.D. 11/02/19 21 Jardiance 10mg Tablets 1 by mouth every am 90tabs Jamison Quiros M.D. 11/02/19 21 Trulicity 3mg/0.5ML Solution Pen-I nject inject sc once per week on wednesday 6ml Batsheva Quiros M.D. 10/22/2020 Levemir Flextouch 10 [...] One Tablet By Mouth Every Am 90taJamison Gómez M.D. 10/23/2019 Unifine Pentips Plus 31G X [...] One Tablet By Mouth Every Am 90taJamison Gómez M.D. 03/08/2019 Indapamide 1.25mg Tablets Take One Tablet By Mouth Every Am 90taJamison Gómez M.D. 2018 Lovastatin 40mg Tablets take two tablets by mouth every Am 30tabs Jamison Quiros M.D. Potassium Chloride ER 10Meq Capsul es ER Take One Capsule By Mouth Every Am 90capBatsheva Hernandez M.D. Dok 100mg Capsules 1 by mouth every [...] CPT Code Status Date Vaccine Lot # 49619 Given 12/11/2020 Influenza Virus Vaccine, Quadrivalent, Slit Virus, Im Use 3Y & Up [id number] 30530 Given 11/01/2020 Influenza Virus Vaccine, Quadrivalent, Slit Virus, Im Use 3Y & Up [id number] 43569 Given 11/06/2019 Influenza Virus Vaccine, Quadrivalent, Slit Virus, Im Use 3Y & Up [id number] 77603 Given 01/04/2019 Influenza Virus Vaccine, Quadrivalent, Slit Virus, Im Use 3Y & Up [id number] Vital Signs Date Vital Result Comment 12/11/2020 10:57am BP Systolic 124 mmHg BP Diastolic 70 mmHg Body Temperature 97.5 F Heart Rate 70 /min Respiratory Rate 18 /min Height 60.5 inches 5'0.50" Weight 166.00 lb [place] Body Weight 100 lb BMI (Body Mass Index) 31.9 kg/m2 O2 % BldC Oximetry 97 % 11/01/2020 11:12am BP Systolic 126 mmHg BP Diastolic 70 mmHg Body Temperature 97.4 F Heart Rate 70 /min Respiratory Rate 14 /min Height 60.5 inches 5'0.50" Weight 170.00 lb [place] Body Weight 100 lb BMI (Body Mass Index) 32.7 kg/m2 O2 % BldC Oximetry 97 % Results Test Acquired Date Facility Test Result H/L Range Note Influenza A/B RSV Covid Amp 12/28/2020 [facility] (Interface) [phone] Influenza A Amplification NEGATIVE Normal Negati ve 1 Influenza B Amplification NEGATIVE Normal Negative 2 RSV Amplification NEGATIVE Normal Negative 3 Sars Covid-19 Amplification NEGATIVE Normal Negative 4 Basic Metabolic Profile 12/28/2020 [facility] (Interface) [phone] Glucose, Fasting 345 mg/dL High 70-100 Blood Urea Nitrogen 16 mg/dL Normal 7-18 Creatinine For GFR 1.01 mg/dL Normal 0.55-1.30 Glomerular Filtration Rate 57.7 Normal >39 5 Sodium Level 140 mEq/L Normal 136-145 Potassium Serum 3.9 mEq/L Normal 3.5-5.1 Chloride Level 103 mEq/L Normal 98-107 Carbon Dioxide Level 30 mEq/L Normal 21-32 Anion Gap 7 mEq/L Low 8-16 Calcium Level 9.2 mg/dL Normal 8.8-10.2 Laboratory test finding 12/28/2020 [facility] ([facility]) [phone] C Reactive Protein Quantitativ 1.63 mg/dL High 0 .00-0.30 CBC With Differential 12/28/2020 [facility]) [phone] White Blood Count 6.9 10 Normal 4.0-10.0 Red Blood Count 4.73 10 Normal 4.00-5.40 Hemoglobin 12.6 g/dL Normal 12.0-15.5 Hematocrit 40.9 % Normal 36.0-47.0 Mean Corpuscular Volume 86.5 fl Normal 80.0-96.0 Mean Corpuscular Hemoglobin 26.6 pg Low 27.0-33.0 Mean Corpuscular HGB Conc 30.8 g/dL Low 32.0-36.5 Red Cell Distribution Width 16.1 % High 11.5-14.5 Platelet Count, Automated 335 10 Normal 150-450 Neutrophils % 64.2 % Normal 36.0-66.0 Lymph % 27.0 % Normal 24.0-44.0 [place] % 6.3 % Normal 2.0-8.0 Eos % 2.0 % Normal 0.0-3.0 Baso % 0.4 % Normal 0.0-1.0 Immature Granulocyte % 0.1 % Normal 0-3.0 Nucleated Red Blood Cell % 0.0 % Normal 0-0 Neutrophils # 4.4 10 Normal 1.5-8.5 Lymph # 1.9 10 Normal 1.5-5.0 [place] # 0.4 10 Normal 0.0-0.8 Eos # 0.1 10 Normal 0.0-0.5 Baso # 0.0 10 Normal 0.0-0.2 Laboratory test finding 12/28/2020 [facility] ([facility]) [phone] Erythrocyte Sedimentation Rate 25 mm/hr Normal 0 -30 Laboratory test finding 12/28/2020 [facility]) [phone] Bedside Glucose 120 mg/dL High 83-110 Prothrombin Time/Inr 11/26/2020 [facility]) [phone] Prothrombin Time 12.9 seconds Normal 12.7-14.5 Inr 0.94 Normal 6 Laboratory test finding 11/26/2020 [facility] (Interface) [phone] Lipase 219 U/L Normal 73-393 Thyroid Stimulating Hormone 3.800 uIU/ML High 0.358-3.740 Free T4 1.03 ng/dL Normal 0.76-1.46 Basic Metabolic Profile 11/26/2020 [facility] (Interface) [phone] Glucose, Fasting 191 mg/dL High 70-100 Blood Urea Nitrogen 19 mg/dL High 7-18 Creatinine For GFR 0.92 mg/dL Normal 0.55-1.30 Glomerular Filtration Rate > 60.0 Normal >39 7 Sodium Level 137 mEq/L Normal 136-145 Potassium Serum 4.4 mEq/L Normal 3.5-5.1 Chloride Level 103 mEq/L Normal 98-107 Carbon Dioxide Level 28 mEq/L Normal 21-32 Anion Gap 6 mEq/L Low 8-16 Calcium Level 9.2 mg/dL Normal 8.8-10.2 Liver Profile 11/26/2020 [facility]) [phone] Ast/Sgot 21 U/L Normal 7-37 Alt/SGPT 20 U/L Normal 12-78 Alkaline Phosphatase 120 U/L High 45-117 Bilirubin,Total 0.4 mg/dL Normal 0.2-1.0 Bilirubin,Direct < 0.1 mg/dL Normal 0.0-0.2 Total Protein 6.6 GM/DL Normal 6.4-8.2 Albumin 3.3 GM/DL Normal 3.2-5.2 Albumin/Globulin Ratio 1.0 Low 1.2-2.2 Laboratory test finding 11/26/2020 [facility] (Interface) [phone] Partial Thromboplastin Time 28.4 seconds Normal 25 .9-37.0 CBC With Differential 11/26/2020 [facility]) [phone] White Blood Count 8.8 10 Normal 4.0-10.0 Red Blood Count 5.20 10 Normal 4.00-5.40 Hemoglobin 13.7 g/dL Normal 12.0-15.5 Hematocrit 44.5 % Normal 36.0-47.0 Mean Corpuscular Volume 85.6 fl Normal 80.0-96.0 Mean Corpuscular Hemoglobin 26.3 pg Low 27.0-33.0 Mean Corpuscular HGB Conc 30.8 g/dL Low 32.0-36.5 Red Cell Distribution Width 16.4 % High 11.5-14.5 Platelet Count, Automated 317 10 Normal 150-450 Neutrophils % 60.8 % Normal 36.0-66.0 Lymph % 29.7 % Normal 24.0-44.0 [place] % 6.3 % Normal 2.0-8.0 Eos % 2.4 % Normal 0.0-3.0 Baso % 0.6 % Normal 0.0-1.0 Immature Granulocyte % 0.2 % Normal 0-3.0 Nucleated Red Blood Cell % 0.0 % Normal 0-0 Neutrophils # 5.4 10 Normal 1.5-8.5 Lymph # 2.6 10 Normal 1.5-5.0 [place] # 0.6 10 Normal 0.0-0.8 Eos # 0.2 10 Normal 0.0-0.5 Baso # 0.1 10 Normal 0.0-0.2 Laboratory test finding 11/26/2020 [facility] (Interface) [phone] iSTAT Troponin 0.07 NG/ML Normal 0.00-0.08 Laboratory test finding 11/26/2020 [facility] (Interface) [phone] iSTAT Troponin 0.02 NG/ML Normal 0.00-0.08 Laboratory test finding 11/20/2020 [facility] (Interface) [phone] Bedside Glucose 309 mg/dL High 83-110 Laboratory test finding 11/20/2020 [facility] (Interface) [phone] Bedside Glucose 107 mg/dL Normal 83-110 Laboratory test finding 11/20/2020 [facility] ([facility]) [phone] Bedside Glucose 32 mg/dL Critical low 83-110 8 Laboratory test finding 11/20/2020 [facility] (Interface) [phone] Bedside Glucose 25 mg/dL Critical low 83-110 9 Laboratory test finding 11/20/2020 [facility] (Interface) [phone] Bedside Glucose 36 mg/dL Critical low 83-110 10 Laboratory test finding 11/20/2020 [facility] ([facility]) [phone] Bedside Glucose 84 mg/dL Normal 83-110 Laboratory test finding 11/20/2020 [facility] (Interface) [phone] Bedside Glucose 208 mg/dL High 83-110 Hemoglobin A1c 11/01/2020 [facility] [place] Hemoglobin A1c 7.5 % High 4.8-5.6 11 CMP 11/01/2020 [facility] Glu 113 mg/dL High 70 - 110 12 BUN 18 mg/dL 8 - 23 Creat [...] Gap 20 mmol/L eGFR 75 # Calc 13 eGFR Non-Afr. [place] 65 # Calc 14 Lipid Panel 11/01/2020 [facility] Chol 131 mg/dL 0 - 200 Trig 76 mg/dL 40 - 200 HDL 57 mg/dL 45 - 65 LDL_C 59 Calc Low 75 - 129 Cho/HDL Ratio 2.3 Calc Laboratory test finding 10/15/2020 [facility] (Interface) [phone] Osmolality Serum 290 MOSM/KG Normal 280-301 Thyroid Stimulating Hormone 2.430 uIU/ML Normal 0.358-3.740 Basic Metabolic Profile 10/15/2020 [facility] (Interface) [phone] Glucose, Fasting 44 mg/dL Low 70-100 Blood Urea Nitrogen 14 mg/dL Normal 7-18 Creatinine For GFR 0.65 mg/dL Normal 0.55-1.30 Glomerular Filtration Rate > 60.0 Normal >39 1 5 Sodium Level 142 mEq/L Normal 136-145 Potassium Serum 4.3 mEq/L Normal 3.5-5.1 Chloride Level 111 mEq/L High 98-107 Carbon Dioxide Level 26 mEq/L Normal 21-32 Anion Gap 5 mEq/L Low 8-16 Calcium Level 9.2 mg/dL Normal 8.8-10.2 Liver Profile 10/15/2020 [facility] ([facility]) [phone] Ast/Sgot 12 U/L Normal 7-37 Alt/SGPT 22 U/L Normal 12-78 Alkaline Phosphatase 97 U/L Normal 45-117 Bilirubin,Total 0.2 mg/dL Normal 0.2-1.0 Bilirubin,Direct < 0.1 mg/dL Normal 0.0-0.2 Total Protein 6.9 GM/DL Normal 6.4-8.2 Albumin 3.5 GM/DL Normal 3.2-5.2 Albumin/Globulin Ratio 1.0 Low 1.2-2.2 Cardiac Marker Panel 10/15/2020 [facility] ( Interface) [phone] CPK Creatine Phosphokinase 43 U/L Normal 26-19 2 CK-MB Value Mass < 1.0 NG/ML Normal <3.6 MB/CK Relative Index 2.33 Normal < Or =4 16 Troponin I < 0.02 NG/ML Normal < 0.10 17 Laboratory test finding 10/15/2020 [facility] (Interface) [phone] Bedside Glucose 43 mg/dL Low 83-110 Laboratory test finding 10/15/2020 [facility] (Interface) [phone] Bedside Glucose 159 mg/dL High 83-110 Laboratory test finding 10/15/2020 [facility] (Interface) [phone] Bedside Glucose 203 mg/dL High 83-110 CBC With Differential 10/15/2020 [facility] (Interface) [phone] White Blood Count 8.1 10 Normal 4.0-10.0 [...] 36.0-66.0 Lymph % 37.8 % Normal 24.0-44.0 [place] % 6.8 % Normal 2.0-8.0 Eos % 3.2 % High 0.0-3.0 Baso % 0.6 % Normal 0.0-1.0 Immature Granulocyte % 0.2 % Normal 0-3.0 Nucleated Red Blood Cell % 0.0 % Normal 0-0 Neutrophils # 4.2 10 Normal 1.5-8.5 Lymph # 3.1 10 Normal 1.5-5.0 [place] # 0.6 10 Normal 0.0-0.8 Eos # 0.3 10 Normal 0.0-0.5 Baso # 0.1 10 Normal 0.0-0.2 Istat Chem8+ Panel 10/13/2020 [facility] (I nterface) [phone] iSTAT HCT 40.0 % Normal 38.0-51.0 iSTAT [...] mg/dL High 65-109 Laboratory test finding 10/03/2020 [facility] (Interface) [phone] Bedside Glucose 217 mg/dL High 83-110 Laboratory test finding 10/03/2020 [facility] (Interface) [phone] Bedside Glucose 77 mg/dL Low 83-110 Laboratory test finding 10/03/2020 [facility] (Interface) [phone] Bedside Glucose 31 mg/dL Critical low 83-110 Venous Blood Gas 10/03/2020 [facility] (I nterface) [phone] Venous PH 7.375 units Normal 7.330-7.430 Venous Partial Pressure Co2 44.2 mmHg Normal 38.0-50.0 Venous Partial Pressure O2 41.4 mmHg Normal 30.0-50.0 Venous Total Co2 26.6 mEq/L Normal 24.0-28.0 Venous Hco3 25.3 mEq/L Normal 23.0-27.0 Venous Base Excess -0.2 Normal -2.0-2.0 Venous Standard Hco3 23.9 mEq/L Normal Venous O2 Saturation 77.9 % Normal 60.0-80.0 CBC With Differential 10/03/2020 [facility] (Interface) [phone] White Blood Count 7.5 10 Normal 4.0-10.0 [...] 36.0-66.0 Lymph % 30.2 % Normal 24.0-44.0 [place] % 6.3 % Normal 2.0-8.0 Eos % 1.6 % Normal 0.0-3.0 Baso % 0.7 % Normal 0.0-1.0 Immature Granulocyte % 0.3 % Normal 0-3.0 Nucleated Red Blood Cell % 0.0 % Normal 0-0 Neutrophils # 4.6 10 Normal 1.5-8.5 Lymph # 2.3 10 Normal 1.5-5.0 [place] # 0.5 10 Normal 0.0-0.8 Eos # 0.1 10 Normal 0.0-0.5 Baso # 0.1 10 Normal 0.0-0.2 Cardiac Marker Panel 10/03/2020 [facility] ( Interface) [phone] CPK Creatine Phosphokinase 77 U/L Normal 26-19 2 CK-MB Value Mass 1.5 NG/ML Normal <3.6 MB/CK Relative Index 1.95 Normal < Or =4 18 Troponin I < 0.02 NG/ML Normal < 0.10 19 Basic Metabolic Profile 10/03/2020 [facility] (Interface) [phone] Glucose, Fasting 58 mg/dL Low 70-100 Blood Urea Nitrogen 16 mg/dL Normal 7-18 Creatinine For GFR 0.59 mg/dL Normal 0.55-1.30 Glomerular Filtration Rate > 60.0 Normal >39 2 0 Sodium Level 143 mEq/L Normal 136-145 Potassium Serum 4.0 mEq/L Normal 3.5-5.1 Chloride Level 111 mEq/L High 98-107 Carbon Dioxide Level 30 mEq/L Normal 21-32 Anion Gap 2 mEq/L Low 8-16 Calcium Level 8.9 mg/dL Normal 8.8-10.2 Laboratory test finding 10/03/2020 [facility] (Interface) [phone] Magnesium Level 2.2 mg/dL Normal 1.8-2.4 Thyroid Stimulating Hormone 2.440 uIU/ML Normal 0.358-3.740 Hemoglobin A1c 09/16/2020 [facility] [place] Hemoglobin A1c 6.5 % High 4.8-5.6 21 CMP 09/16/2020 [facility] Glu 170 mg/dL High 70 - 110 22 BUN 18 mg/dL 8 - 23 Creat [...] Gap 19 mmol/L eGFR 75 # Calc 23 eGFR Non-Afr. [place] 65 # Calc 24 CBC 09/16/2020 [facility] WBC 7.5 10E3/uL 4.1 [...] 1.8 MPV 11.9 fL 9.0 - 13.0 Laboratory test finding 07/13/2020 [facility] (Interface) [phone] Bedside Glucose 177 mg/dL High 83-110 25 Istat Chem8+ Panel 07/13/2020 [facility] (I nterface) [phone] iSTAT HCT 35.0 % Low 38.0-51.0 iSTAT Glucose 229 mg/dL High 70-105 iSTAT Sodium 138 mEq/L Normal 136-145 iSTAT Potassium 4.3 mEq/L Normal 3.5-5.1 iSTAT CA++ 4.7 mg/dL Normal 4.5-5.3 iSTAT Chloride 100 mEq/L Normal 98-109 iSTAT Co2 31.0 MM/L High 23.0-27.0 iSTAT BUN 26 mg/dL Normal 8-26 iSTAT Creatinine 1.6 mg/dL High 0.6-1.3 Laboratory test finding 07/13/2020 [facility] (Interface) [phone] Bedside Glucose 245 mg/dL High 83-110 Ua W/ Reflex To Culture 07/05/2020 [facility] (Interface) [phone] Appearance, Urine RFX CLEAR Normal Clear Color, Urine RFX STRAW Normal Yellow PH,Urine RFX 6.0 units Normal 5.0-9.0 Specific [place] Ur Auto RFX 1.006 Normal 1.002-1.035 Protein, [...] Urine Auto RFX 0 /LPF Normal 0-1 Drug Eval Toxicology ED Only 07/05/2020 [facility] (Interface) [phone] Amphetamines Level Urine NEGATIVE Normal Negativ e Barbiturates Urine NEGATIVE Normal Negative Benzodiazepines Urine NEGATIVE Normal Negative Cannabinoids Urine NEGATIVE Normal Negative Cocaine Metabolite Urine NEGATIVE Normal Negative Methadone Urine NEGATIVE Normal Negative Opiates Urine NEGATIVE Normal Negative Phencyclidine Urine NEGATIVE Normal Negative 26 Blood Culture 07/05/2020 [facility]) [phone] Blood Culture No growth after <SEE NOTE> 27 CBC With Differential 07/05/2020 [facility]) [phone] White Blood Count 6.0 10 Normal 4.0-10.0 [...] 36.0-66.0 Lymph % 43.0 % Normal 24.0-44.0 [place] % 6.5 % Normal 2.0-8.0 Eos % 5.5 % High 0.0-3.0 Baso % 0.7 % Normal 0.0-1.0 Immature Granulocyte % 0.3 % Normal 0-3.0 Nucleated Red Blood Cell % 0.0 % Normal 0-0 Neutrophils # 2.6 10 Normal 1.5-8.5 Lymph # 2.6 10 Normal 1.5-5.0 [place] # 0.4 10 Normal 0.0-0.8 Eos # 0.3 10 Normal 0.0-0.5 Baso # 0.0 10 Normal 0.0-0.2 Venous Blood Gas 07/05/2020 [facility]) [phone] Venous PH 7.328 units Low 7.330-7.430 Venous Partial Pressure Co2 56.7 mmHg High 38.0-50.0 Venous Partial Pressure O2 39.1 mmHg Normal 30.0-50.0 Venous Total Co2 30.8 mEq/L High 24.0-28.0 Venous Hco3 29.1 mEq/L High 23.0-27.0 Venous Base Excess 2.0 Normal -2.0-2.0 Venous Standard Hco3 25.6 mEq/L Normal Venous O2 Saturation 69.2 % Normal 60.0-80.0 Laboratory test finding 07/05/2020 [facility] ([facility]) [phone] Ammonia 30 uMOL/L Normal <32 Cardiac Marker Panel 07/05/2020 [facility]) [phone] CPK Creatine Phosphokinase 90 U/L Normal 26-19 2 CK-MB Value Mass 1.6 NG/ML Normal <3.6 MB/CK Relative Index 1.78 Normal < Or =4 28 Troponin I < 0.02 NG/ML Normal < 0.10 29 Liver Profile 07/05/2020 [facility]) [phone] Ast/Sgot 16 U/L Normal 7-37 Alt/SGPT 21 U/L Normal 12-78 Alkaline Phosphatase 89 U/L Normal 45-117 Bilirubin,Total 0.4 mg/dL Normal 0.2-1.0 Bilirubin,Direct < 0.1 mg/dL Normal 0.0-0.2 Total Protein 7.3 GM/DL Normal 6.4-8.2 Albumin 4.0 GM/DL Normal 3.2-5.2 Albumin/Globulin Ratio 1.2 Normal 1.2-2.2 Basic Metabolic Profile 07/05/2020 [facility]) [phone] Glucose, Fasting 113 mg/dL High 70-100 Blood Urea Nitrogen 21 mg/dL High 7-18 Creatinine For GFR 0.89 mg/dL Normal 0.55-1.30 Glomerular Filtration Rate > 60.0 Normal >39 3 0 Sodium Level 139 mEq/L Normal 136-145 Potassium Serum 4.4 mEq/L Normal 3.5-5.1 31 Chloride Level 106 mEq/L Normal 98-107 Carbon Dioxide Level 29 mEq/L Normal 21-32 Anion Gap 4 mEq/L Low 8-16 Calcium Level 9.7 mg/dL Normal 8.8-10.2 Laboratory test finding 07/05/2020 [facility] ([facility]) [phone] Thyroid Stimulating Hormone 7.580 uIU/ML High 0. 358-3.740 Blood Culture 07/05/2020 [facility]) [phone] Blood Culture No growth after <SEE NOTE> 32 1 Negative results do not prec lude influenza or RSV virus infection and should not be used as the sole basis for treatment or other patient management decisions. 2 Negative results do not prec lude influenza or RSV virus infection and should not be used as the sole basis for treatment or other patient management decisions. 3 Negative results do not prec lude influenza or RSV virus infection and should not be used as the sole basis for treatment or other patient management decisions. 4 A false negative result may occur if a specimen is improperly collected, transported or handled. False negative results may also occur if inadequate numbers of organisms are present in the specimen. As with any molecular test, mutations within the target regions of Xpert Xpress SARS-CoV-2 could affect primer and/or probe binding resulting in failure to detect the presence of virus. This test cannot rule out diseases caused by other bacterial or viral pathogens. DISCLAIMER: Testing was performed using the [employer] SARS-CoV-2 test. This test was developed and its performance characteristics determined by [employer]. This test has not been FDA cleared or approved. This test has been authorized by FDA under an Emergency Use Authorization (EUA). This test is only authorized for the duration of time the declaration that circumstances exist justifying the authorization of the emergency use of in vitro diagnostic tests for detection of SARS-CoV-2 virus and/or diagnosis of COVID-19 infection under section 564(b)(1) of the Act, 21 U.S.C. 360bbb-3(b)(1), unless the authorization is terminated or revoked sooner. 5 Units are mL/min/1.73 m2 Chronic Kidney Disease Staging per NKF: Stage I & II GFR >=60 Normal to Mildly Decreased Stage III GFR 30-59 Moderately Decreased Stage IV GFR 15-29 Severely Decreased Stage V GFR <15 Very Little GFR Left ESRD GFR <15 on BORING MACHINE OPERATOR DOUBLE END 6 THERAPUTIC HUMAN INR VALUES INDICATIONS NORMAL RANGES PROPHYLAXIS/TREATMENT OF: VENOUS THROMBOSIS 2.0-3.0 PULMONARY EMBOLISM 2.0-3.0 PREVENTION OF SYSTEMIC EMBOLISM FROM: TISSUE HEART VALVES 2.0-3.0 ACUTE MYOCARDIAL INFARCTION 2.0-3.0 VALVULAR HEART DISEASE 2.0-3.0 ATRIAL FIBRILLATION 2.0-3.0 MECHANICAL VALVES(HIGH RISK) 2.5-3.5 RECURRENT MYOCARDIAL INFARCTION 2.5-3.5 7 Units are mL/min/1.73 m2 Chronic Kidney Disease Staging per NKF: Stage I & II GFR >=60 Normal to Mildly Decreased Stage III GFR 30-59 Moderately Decreased Stage IV GFR 15-29 Severely Decreased Stage V GFR <15 Very Little GFR Left ESRD GFR <15 on BORING MACHINE OPERATOR DOUBLE END 8 Doctor Notified 9 Doctor Notified 10 Doctor Notified 11 Prediabetes: 5.7 - 6.4 Diabetes: >6.4 Glycemic control for adults with diabetes: <7.0 12 CHRONIC KIDNEY DISEASE STAGI NG PER NKF: [...] ADOLESCENTS REPRESENTS INDIVIDUALA AGED 2-19 YEARS EXCLUSIVE. 13 CKD-EPI 14 CKD-EPI 15 Units are mL/min/1.73 m2 Chronic Kidney Disease Staging per NKF: Stage I & II GFR >=60 Normal to Mildly Decreased Stage III GFR 30-59 Moderately Decreased Stage IV GFR 15-29 Severely Decreased Stage V GFR <15 Very Little GFR Left ESRD GFR <15 on BORING MACHINE OPERATOR DOUBLE END 16 DIAGNOSIS CRITERIA MMB ng/ml Relative Index (RI) NON-AMI < or = 5 N/A GIL ZONE > 5 < or = 4 AMI > 5 > 4 17 Troponin I Reference Interva l for [place] LOCI: 99th Percentile= 0.00-0.045 ng/ml Risk Stratification: <= 0.10 ng/ml Decreased Risk for Adverse Clinical Events. 0.10-1.50 ng/ml Increased Risk for Adv erse Clinical Events. Evaluation of additional criterion and/or repeat testing in 2-6 hours is suggested to rule out myocardial damage. >= 1.50 ng/ml Indicative of Myocardial Injury. 18 DIAGNOSIS CRITERIA MMB ng/ml Relative Index (RI) NON-AMI < or = 5 N/A GIL ZONE > 5 < or = 4 AMI > 5 > 4 19 Troponin I Reference Interva l for [place] LOCI: 99th Percentile= 0.00-0.045 ng/ml Risk Stratification: <= 0.10 ng/ml Decreased Risk for Adverse Clinical Events. 0.10-1.50 ng/ml Increased Risk for Adv erse Clinical Events. Evaluation of additional criterion and/or repeat testing in 2-6 hours is suggested to rule out myocardial damage. >= 1.50 ng/ml Indicative of Myocardial Injury. 20 Units are mL/min/1.73 m2 Chronic Kidney Disease Staging per NKF: Stage I & II GFR >=60 Normal to Mildly Decreased Stage III GFR 30-59 Moderately Decreased Stage IV GFR 15-29 Severely Decreased Stage V GFR <15 Very Little GFR Left ESRD GFR <15 on BORING MACHINE OPERATOR DOUBLE END 21 Prediabetes: 5.7 - 6.4 Diabetes: >6.4 Glycemic control for adults with diabetes: <7.0 22 NORMAL RANGES Age WBC RBC HGB HCT [...] HCT IS 5% LESS SOURCE FOR DATA: [employer] 1800 OPERATION MANUAL( AUTOMATED BLOOD COUNTS AND [...] Normal 80 and above >32 mL/min Normal 23 CKD-EPI 24 CKD-EPI 25 Doctor Notified 26 ALL PRESUMPTIVE POSITIVE FINDINGS ARE UNCONFIRMED THRESHOLD [...] CLOSELY RELATED COMPOUNDS PLEASE CALL THE LAB. 27 No growth after 72 hours . A ll specimens observed for 5 days. Results final at that time. No growth after 48 hours . All specimens observed for 5 days. Results final at that time. No growth after 24 hours . All specimens observed for 5 days. Results final at that time. NO GROWTH AFTER 5 DAYS 28 DIAGNOSIS CRITERIA MMB ng/ml Relative Index (RI) NON-AMI < or = 5 N/A GIL ZONE > 5 < or = 4 AMI > 5 > 4 29 Troponin I Reference Interva l for [place] LOCI: 99th Percentile= 0.00-0.045 ng/ml Risk Stratification: <= 0.10 ng/ml Decreased Risk for Adverse Clinical Events. 0.10-1.50 ng/ml Increased Risk for Adv erse Clinical Events. Evaluation of additional criterion and/or repeat testing in 2-6 hours is suggested to rule out myocardial damage. >= 1.50 ng/ml Indicative of Myocardial Injury. 30 Units are mL/min/1.73 m2 Chronic Kidney Disease Staging per NKF: Stage I & II GFR >=60 Normal to Mildly Decreased Stage III GFR 30-59 Moderately Decreased Stage IV GFR 15-29 Severely Decreased Stage V GFR <15 Very Little GFR Left ESRD GFR <15 on BORING MACHINE OPERATOR DOUBLE END 31 This specimen has an elevate d potassium level but there is NO visible hemolysis noted. 32 No growth after 72 hours . A ll specimens observed for 5 days. Results final at that time. No growth after 48 hours . All specimens observed for 5 days. Results final at that time. No growth after 24 hours . All specimens observed for 5 days. Results final at that time. NO GROWTH AFTER 5 DAYS Procedures Date Code Description Status 12/11/2020 36445 Office/Outpatient Established Mo d MDM 30-39 Min Completed 11/01/2020 47113 Office/Outpatient Established Mo d MDM 30-39 Min Completed 10/22/2020 72246 Office/Outpatient Established Mo d MDM 30-39 Min Completed 10/18/2020 21025 Office/Outpatient Established Mo d MDM 30-39 Min Completed 10/10/2020 90098 Office/Outpatient Established Mo d MDM 30-39 Min Completed 10/10/2020 61348 Capillary Blood Collection Finge r, Heel, Ear Stick Completed 09/16/2020 40448 Office/Outpatient Established Mo d MDM 30-39 Min Completed 07/23/2020 57807 Office/Outpatient Established Mo d MDM 30-39 Min Completed 07/08/2020 18558 Office/Outpatient Established Mo d MDM 30-39 Min Completed 11/15/2019 [id number] Mammogram Completed Medical Devices Description No Information Available Encounters Type Date Location Provider Dx Diagnosis Office Visit 12/11/2020 11:00a [place] [facility] Jamison Quiros M. D. R07.89 Other chest pain Z23 Encounter for immunization Office Visit 11/01/2020 10:40a [place] [facility] Jamison Quiros M. D. E11.649 Type 2 diabetes mellitus with hypoglycemia without coma I10 Essential (primary) hyperten stephanie E78.5 Hyperlipidemia, unspecified Z23 Encounter for immunization Office Visit 10/22/2020 11:00a [place] [facility] Jamison Quiros M. D. E11.649 Type 2 diabetes mellitus with hypoglycemia without coma Office Visit 10/18/2020 11:15a [place] [facility] Jamison Quiros M. D. E11.649 Type 2 diabetes mellitus with hypoglycemia without coma Office Visit 10/10/2020 9:30a [place] [facility] Alissa Vides, FAAFP E16.0 Drug-induced hypoglycemia without coma I10 Essential (primary) hyperten stephanie E11.649 Type 2 diabetes mellitus wit h hypoglycemia without coma Office Visit 09/16/2020 2:00p [place] [facility] Jamison Quiros M. D. R10.9 Unspecified abdominal pain Office Visit 07/23/2020 10:20a [place] [facility] Jamison Quiros M. D. E11.649 Type 2 diabetes mellitus with hypoglycemia without coma Office Visit 07/08/2020 11:15a [place] [facility] Jamison Quiros M. D. E11.649 Type 2 diabetes mellitus with hypoglycemia without coma Assessments Date Code Description Provider 12/11/2020 R07.89 Other chest pain Jamison Quiros M.D. 12/11/2020 Z23 Encounter for immunization Jamison Du M.D. 11/01/2020 E11.649 Type 2 diabetes mellitus with hy poglycemia without coma Jamison Quiros M.D. 11/01/2020 I10 Essential (primary) hypertension Jamison Quiros M.D. 11/01/2020 E78.5 [facility], [facility] 11/01/2020 Z23 Encounter for immunization [...] mellitus with hy poglycemia without coma Jamison Quirso M.D. 07/08/2020 E11.649 Type 2 diabetes mellitus with hy poglycemia without coma Jamison Quiros M.D. Plan of Treatment Future Appointment(s):* 01/15/2021 10:20 am - Jamison Quiros M.D. at [place] [facility] Functional Status Description No Information Available Mental Status Description No Information Available Referrals Refer to Dr Reason for Referral Status Appt Date Luke Mccollum M.D. chest pain, multiple cardiac risk factor s, eval and rx Sent [facility] [address] [place] [address] [phone] [facility] Cardiology chest pain- eval and rx Sent [address] [place] [address] [phone] Dilia Cain M.D. uncontrolled diabetes, sever al hospitalizations, ER visits for hypoglycemia- eval and rx Sent [facility] [address] [place] [address] [phone]
--- OUTSIDE RECORDS SUMMARY | 2021-01-06 19:59 | CCD | Continuity of Care Document ---
Author Author Elsy QUIROS M.D. Organization Unknown Address [address] [place] [id number] Phone [phone] Care Team Providers Care Stockroom Worker Name Role Phone Dilia Cain M.D. AUTM [phone] Problems Active Problems Provider Date Essential hypertension [...] CPT Code Status Date Vaccine Lot # 53496 Given 12/11/2020 Influenza Virus Vaccine, Quadrivalent, Slit Virus, Im Use 3Y & Up [id number] 91695 Given 11/01/2020 Influenza Virus Vaccine, Quadrivalent, Slit Virus, Im Use 3Y & Up [id number] 03823 Given 11/06/2019 Influenza Virus Vaccine, Quadrivalent, Slit Virus, Im Use 3Y & Up [id number] 60704 Given 01/04/2019 Influenza Virus Vaccine, Quadrivalent, Slit Virus, Im Use 3Y & Up [id number] Vital Signs Date Vital Result Comment 12/11/2020 10:57am BP Systolic 124 mmHg BP Diastolic 70 mmHg Body Temperature 97.5 F Heart Rate 70 /min Respiratory Rate 18 /min Height 60.5 inches 5'0.50" Weight 166.00 lb Vilas Body Weight 100 lb BMI (Body Mass Index) 31.9 kg/m2 O2 % BldC Oximetry 97 % 11/01/2020 11:12am BP Systolic 126 mmHg BP Diastolic 70 mmHg Body Temperature 97.4 F Heart Rate 70 /min Respiratory Rate 14 /min Height 60.5 inches 5'0.50" Weight 170.00 lb [place] Body Weight 100 lb BMI (Body Mass Index) 32.7 kg/m2 O2 % BldC Oximetry 97 % Results Test Acquired Date Facility Test Result H/L Range Note Influenza A/B RSV Covid Amp 12/28/2020 [facility] (Interface) [phone] Influenza A Amplification NEGATIVE Normal Negati ve 1 Influenza B Amplification NEGATIVE Normal Negative 2 RSV Amplification NEGATIVE Normal Negative 3 Sars Covid-19 Amplification NEGATIVE Normal Negative 4 Basic Metabolic Profile 12/28/2020 [facility] l (Interface) [phone] Glucose, Fasting 345 mg/dL High 70-100 Blood [...] mg/dL Normal 8.8-10.2 Laboratory test finding 12/28/2020 [facility] ([facility]) [phone] C Reactive Protein Quantitativ 1.63 mg/dL High 0 .00-0.30 CBC With Differential 12/28/2020 [facility]) [phone] White Blood Count 6.9 10 Normal 4.0-10.0 [...] 36.0-66.0 Lymph % 27.0 % Normal 24.0-44.0 Jerome % 6.3 % Normal 2.0-8.0 Eos % 2.0 % Normal 0.0-3.0 Baso % 0.4 % Normal 0.0-1.0 Immature Granulocyte % 0.1 % Normal 0-3.0 Nucleated Red Blood Cell % 0.0 % Normal 0-0 Neutrophils # 4.4 10 Normal 1.5-8.5 Lymph # 1.9 10 Normal 1.5-5.0 Jerome # 0.4 10 Normal 0.0-0.8 Eos # 0.1 10 Normal 0.0-0.5 Baso # 0.0 10 Normal 0.0-0.2 Laboratory test finding 12/28/2020 [facility] ([facility]) [phone] Erythrocyte Sedimentation Rate 25 mm/hr Normal 0 -30 Laboratory test finding 12/28/2020 [facility]) [phone] Bedside Glucose 120 mg/dL High 83-110 Prothrombin Time/Inr 11/26/2020 [facility]) [phone] Prothrombin Time 12.9 seconds Normal 12.7-14.5 Inr 0.94 Normal 6 Laboratory test finding 11/26/2020 [facility] (Interface) [phone] Lipase 219 U/L Normal 73-393 Thyroid Stimulating Hormone 3.800 uIU/ML High 0.358-3.740 Free T4 1.03 ng/dL Normal 0.76-1.46 Basic Metabolic Profile 11/26/2020 [facility] (Interface) [phone] Glucose, Fasting 191 mg/dL High 70-100 Blood [...] 9.2 mg/dL Normal 8.8-10.2 Liver Profile 11/26/2020 [facility] [phone] Ast/Sgot 21 U/L Normal 7-37 Alt/SGPT 20 U/L Normal 12-78 Alkaline Phosphatase 120 U/L High 45-117 Bilirubin,Total 0.4 mg/dL Normal 0.2-1.0 Bilirubin,Direct < 0.1 mg/dL Normal 0.0-0.2 Total Protein 6.6 GM/DL Normal 6.4-8.2 Albumin 3.3 GM/DL Normal 3.2-5.2 Albumin/Globulin Ratio 1.0 Low 1.2-2.2 Laboratory test finding 11/26/2020 [facility] (Interface) [phone] Partial Thromboplastin Time 28.4 seconds Normal 25 .9-37.0 CBC With Differential 11/26/2020 [facility]) [phone] White Blood Count 8.8 10 Normal 4.0-10.0 [...] 36.0-66.0 Lymph % 29.7 % Normal 24.0-44.0 Jerome % 6.3 % Normal 2.0-8.0 Eos % 2.4 % Normal 0.0-3.0 Baso % 0.6 % Normal 0.0-1.0 Immature Granulocyte % 0.2 % Normal 0-3.0 Nucleated Red Blood Cell % 0.0 % Normal 0-0 Neutrophils # 5.4 10 Normal 1.5-8.5 Lymph # 2.6 10 Normal 1.5-5.0 Jerome # 0.6 10 Normal 0.0-0.8 Eos # 0.2 10 Normal 0.0-0.5 Baso # 0.1 10 Normal 0.0-0.2 Laboratory test finding 11/26/2020 [facility] (Interface) [phone] iSTAT Troponin 0.07 NG/ML Normal 0.00-0.08 Laboratory test finding 11/26/2020 [facility] (Interface) [phone] iSTAT Troponin 0.02 NG/ML Normal 0.00-0.08 Laboratory test finding 11/20/2020 [facility] (Interface) [phone] Bedside Glucose 309 mg/dL High 83-110 Laboratory test finding 11/20/2020 [facility] (Interface) [phone] Bedside Glucose 107 mg/dL Normal 83-110 Laboratory test finding 11/20/2020 [facility] (Interface) [phone] Bedside Glucose 32 mg/dL Critical low 83-110 8 Laboratory test finding 11/20/2020 [facility] (Interface) [phone] Bedside Glucose 25 mg/dL Critical low 83-110 9 Laboratory test finding 11/20/2020 [facility] (Interface) [phone] Bedside Glucose 36 mg/dL Critical low 83-110 10 Laboratory test finding 11/20/2020 [facility] (Interface) [phone] Bedside Glucose 84 mg/dL Normal 83-110 Laboratory test finding 11/20/2020 [facility] (Interface) [phone] Bedside Glucose 208 mg/dL High 83-110 Hemoglobin [...] eGFR 75 # Calc 13 eGFR Non-Afr. [place] 65 # Calc 14 Lipid Panel 11/01/2020 [facility] Chol 131 mg/dL 0 - 200 Trig 76 mg/dL 40 - 200 HDL 57 mg/dL 45 - 65 LDL_C 59 Calc Low 75 - 129 Cho/HDL Ratio 2.3 Calc Laboratory test finding 10/15/2020 [facility] (Interface) [phone] Osmolality Serum 290 MOSM/KG Normal 280-301 Thyroid Stimulating Hormone 2.430 uIU/ML Normal 0.358-3.740 Basic Metabolic Profile 10/15/2020 [facility] (Interface) [phone] Glucose, Fasting 44 mg/dL Low 70-100 Blood [...] 9.2 mg/dL Normal 8.8-10.2 Liver Profile 10/15/2020 [facility] [phone] Ast/Sgot 12 U/L Normal 7-37 Alt/SGPT 22 U/L Normal 12-78 Alkaline Phosphatase 97 U/L Normal 45-117 Bilirubin,Total 0.2 mg/dL Normal 0.2-1.0 Bilirubin,Direct < 0.1 mg/dL Normal 0.0-0.2 Total Protein 6.9 GM/DL Normal 6.4-8.2 Albumin 3.5 GM/DL Normal 3.2-5.2 Albumin/Globulin Ratio 1.0 Low 1.2-2.2 Cardiac Marker Panel 10/15/2020 [facility] ( Interface) [phone] CPK Creatine Phosphokinase 43 U/L Normal 26-19 2 CK-MB Value Mass < 1.0 NG/ML Normal <3.6 MB/CK Relative Index 2.33 Normal < Or =4 16 Troponin I < 0.02 NG/ML Normal < 0.10 17 Laboratory test finding 10/15/2020 [facility] (Interface) [phone] Bedside Glucose 43 mg/dL Low 83-110 Laboratory test finding 10/15/2020 [facility] (Interface) [phone] Bedside Glucose 159 mg/dL High 83-110 Laboratory test finding 10/15/2020 [facility] (Interface) [phone] Bedside Glucose 203 mg/dL High 83-110 CBC With Differential 10/15/2020 [facility] (Interface) [phone] White Blood Count 8.1 10 Normal 4.0-10.0 [...] 36.0-66.0 Lymph % 37.8 % Normal 24.0-44.0 Jerome % 6.8 % Normal 2.0-8.0 Eos % 3.2 % High 0.0-3.0 Baso % 0.6 % Normal 0.0-1.0 Immature Granulocyte % 0.2 % Normal 0-3.0 Nucleated Red Blood Cell % 0.0 % Normal 0-0 Neutrophils # 4.2 10 Normal 1.5-8.5 Lymph # 3.1 10 Normal 1.5-5.0 Jerome # 0.6 10 Normal 0.0-0.8 Eos # 0.3 10 Normal 0.0-0.5 Baso # 0.1 10 Normal 0.0-0.2 Istat Chem8+ Panel 10/13/2020 [facility] (I nterface) [phone] iSTAT HCT 40.0 % Normal 38.0-51.0 iSTAT [...] mg/dL High 65-109 Laboratory test finding 10/03/2020 [facility] (Interface) [phone] Bedside Glucose 217 mg/dL High 83-110 Laboratory test finding 10/03/2020 [facility] (Interface) [phone] Bedside Glucose 77 mg/dL Low 83-110 Laboratory test finding 10/03/2020 [facility] (Interface) [phone] Bedside Glucose 31 mg/dL Critical low 83-110 Venous Blood Gas 10/03/2020 [facility] (I nterface) [phone] Venous PH 7.375 units Normal 7.330-7.430 Venous Partial Pressure Co2 44.2 mmHg Normal 38.0-50.0 Venous Partial Pressure O2 41.4 mmHg Normal 30.0-50.0 Venous Total Co2 26.6 mEq/L Normal 24.0-28.0 Venous Hco3 25.3 mEq/L Normal 23.0-27.0 Venous Base Excess -0.2 Normal -2.0-2.0 Venous Standard Hco3 23.9 mEq/L Normal Venous O2 Saturation 77.9 % Normal 60.0-80.0 CBC With Differential 10/03/2020 [facility] (Interface) [phone] White Blood Count 7.5 10 Normal 4.0-10.0 [...] 36.0-66.0 Lymph % 30.2 % Normal 24.0-44.0 Jerome % 6.3 % Normal 2.0-8.0 Eos % 1.6 % Normal 0.0-3.0 Baso % 0.7 % Normal 0.0-1.0 Immature Granulocyte % 0.3 % Normal 0-3.0 Nucleated Red Blood Cell % 0.0 % Normal 0-0 Neutrophils # 4.6 10 Normal 1.5-8.5 Lymph # 2.3 10 Normal 1.5-5.0 Jerome # 0.5 10 Normal 0.0-0.8 Eos # 0.1 10 Normal 0.0-0.5 Baso # 0.1 10 Normal 0.0-0.2 Cardiac Marker Panel 10/03/2020 [facility] ( Interface) [phone] CPK Creatine Phosphokinase 77 U/L Normal 26-19 2 CK-MB Value Mass 1.5 NG/ML Normal <3.6 MB/CK Relative Index 1.95 Normal < Or =4 18 Troponin I < 0.02 NG/ML Normal < 0.10 19 Basic Metabolic Profile 10/03/2020 [facility] (Interface) [phone] Glucose, Fasting 58 mg/dL Low 70-100 Blood [...] mg/dL Normal 8.8-10.2 Laboratory test finding 10/03/2020 [facility] (Interface) [phone] Magnesium Level 2.2 mg/dL Normal 1.8-2.4 Thyroid [...] eGFR 75 # Calc 23 eGFR Non-Afr. [place] 65 # Calc 24 CBC 09/16/2020 [facility]/Inhouse [...] 9.0 - 13.0 Laboratory test finding 07/13/2020 [facility] (Interface) [phone] Bedside Glucose 177 mg/dL High 83-110 25 Istat Chem8+ Panel 07/13/2020 [facility] (I nterface) [phone] iSTAT HCT 35.0 % Low 38.0-51.0 iSTAT Glucose 229 mg/dL High 70-105 iSTAT Sodium 138 mEq/L Normal 136-145 iSTAT Potassium 4.3 mEq/L Normal 3.5-5.1 iSTAT CA++ 4.7 mg/dL Normal 4.5-5.3 iSTAT Chloride 100 mEq/L Normal 98-109 iSTAT Co2 31.0 MM/L High 23.0-27.0 iSTAT BUN 26 mg/dL Normal 8-26 iSTAT Creatinine 1.6 mg/dL High 0.6-1.3 Laboratory test finding 07/13/2020 [facility] (Interface) [phone] Bedside Glucose 245 mg/dL High 83-110 Ua W/ Reflex To Culture 07/05/2020 [facility] (Interface) [phone] Appearance, Urine RFX CLEAR Normal Clear Color, Urine RFX STRAW Normal Yellow PH,Urine RFX 6.0 units Normal 5.0-9.0 Specific [place] Ur Auto RFX 1.006 Normal 1.002-1.035 Protein, [...] 0-1 Drug Eval Toxicology ED Only 07/05/2020 [facility] (Interface) [phone] Amphetamines Level Urine NEGATIVE Normal Negativ e Barbiturates Urine NEGATIVE Normal Negative Benzodiazepines Urine NEGATIVE Normal Negative Cannabinoids Urine NEGATIVE Normal Negative Cocaine Metabolite Urine NEGATIVE Normal Negative Methadone Urine NEGATIVE Normal Negative Opiates Urine NEGATIVE Normal Negative Phencyclidine Urine NEGATIVE Normal Negative 26 Blood Culture 07/05/2020 [facility]) [phone] Blood Culture No growth after <SEE NOTE> 27 CBC With Differential 07/05/2020 [facility]) [phone] White Blood Count 6.0 10 Normal 4.0-10.0 [...] 36.0-66.0 Lymph % 43.0 % Normal 24.0-44.0 Jerome % 6.5 % Normal 2.0-8.0 Eos % 5.5 % High 0.0-3.0 Baso % 0.7 % Normal 0.0-1.0 Immature Granulocyte % 0.3 % Normal 0-3.0 Nucleated Red Blood Cell % 0.0 % Normal 0-0 Neutrophils # 2.6 10 Normal 1.5-8.5 Lymph # 2.6 10 Normal 1.5-5.0 Jerome # 0.4 10 Normal 0.0-0.8 Eos # 0.3 10 Normal 0.0-0.5 Baso # 0.0 10 Normal 0.0-0.2 Venous Blood Gas 07/05/2020 [facility]) [phone] Venous PH 7.328 units Low 7.330-7.430 Venous Partial Pressure Co2 56.7 mmHg High 38.0-50.0 Venous Partial Pressure O2 39.1 mmHg Normal 30.0-50.0 Venous Total Co2 30.8 mEq/L High 24.0-28.0 Venous Hco3 29.1 mEq/L High 23.0-27.0 Venous Base Excess 2.0 Normal -2.0-2.0 Venous Standard Hco3 25.6 mEq/L Normal Venous O2 Saturation 69.2 % Normal 60.0-80.0 Laboratory test finding 07/05/2020 [facility] ([facility]) [phone] Ammonia 30 uMOL/L Normal <32 Cardiac Marker Panel 07/05/2020 [facility]) [phone] CPK Creatine Phosphokinase 90 U/L Normal 26-19 2 CK-MB Value Mass 1.6 NG/ML Normal <3.6 MB/CK Relative Index 1.78 Normal < Or =4 28 Troponin I < 0.02 NG/ML Normal < 0.10 29 Liver Profile 07/05/2020 [facility]) [phone] Ast/Sgot 16 U/L Normal 7-37 Alt/SGPT 21 U/L Normal 12-78 Alkaline Phosphatase 89 U/L Normal 45-117 Bilirubin,Total 0.4 mg/dL Normal 0.2-1.0 Bilirubin,Direct < 0.1 mg/dL Normal 0.0-0.2 Total Protein 7.3 GM/DL Normal 6.4-8.2 Albumin 4.0 GM/DL Normal 3.2-5.2 Albumin/Globulin Ratio 1.2 Normal 1.2-2.2 Basic Metabolic Profile 07/05/2020 [facility]) [phone] Glucose, Fasting 113 mg/dL High 70-100 Blood [...] mg/dL Normal 8.8-10.2 Laboratory test finding 07/05/2020 [facility] ([facility]) [phone] Thyroid Stimulating Hormone 7.580 uIU/ML High 0. 358-3.740 Blood Culture 07/05/2020 [facility]) [phone] Blood Culture No growth after <SEE NOTE> [...] pathogens. DISCLAIMER: Testing was performed using the [employer] SARS-CoV-2 test. This test was developed and its performance characteristics determined by [employer]. This test has not been FDA cleared [...] Little GFR Left ESRD GFR <15 on [employer] 6 THERAPUTIC HUMAN INR VALUES INDICATIONS NORMAL [...] Little GFR Left ESRD GFR <15 on [employer] INSPECTOR 8 Doctor Notified 9 Doctor Notified 10 [...] Little GFR Left ESRD GFR <15 on [employer]OR 16 DIAGNOSIS CRITERIA MMB ng/ml Relative Index (RI) NON-AMI < or = 5 N/A GIL ZONE > 5 < or = 4 AMI > 5 > 4 17 Troponin I Reference Interva l for [facility] LOCI: 99th Percentile= 0.00-0.045 ng/ml Risk Stratification: [...] 19 Troponin I Reference Interva l for [facility] LOCI: 99th Percentile= 0.00-0.045 ng/ml Risk Stratification: [...] Little GFR Left ESRD GFR <15 on [employer] INS[employer]OR 21 Prediabetes: 5.7 - 6.4 Diabetes: >6.4 [...] HCT IS 5% LESS SOURCE FOR DATA: [employer] 1800 OPERATION MANUAL( AUTOMATED BLOOD COUNTS AND [...] 29 Troponin I Reference Interva l for [facility] LOCI: 99th Percentile= 0.00-0.045 ng/ml Risk Stratification: [...] Little GFR Left ESRD GFR <15 on [employer]OR 31 This specimen has an elevate d [...] DAYS Procedures Date Code Description Status 12/11/2020 07124 Office/Outpatient Established Mo d MDM 30-39 Min Completed 11/01/2020 53757 Office/Outpatient Established Mo d MDM 30-39 Min Completed 10/22/2020 43334 Office/Outpatient Established Mo d MDM 30-39 Min Completed 10/18/2020 17696 Office/Outpatient Established Mo d MDM 30-39 Min Completed 10/10/2020 93267 Office/Outpatient Established Mo d MDM 30-39 Min Completed 10/10/2020 88351 Capillary Blood Collection Finge r, Heel, Ear Stick Completed 09/16/2020 34596 Office/Outpatient Established Mo d MDM 30-39 Min Completed 07/23/2020 32080 Office/Outpatient Established Mo d MDM 30-39 Min Completed 07/08/2020 58358 Office/Outpatient Established Mo d MDM 30-39 Min Completed 11/15/2019 [id number] Mammogram Completed Medical Devices Description No Information Available Encounters Type Date Location Provider Dx Diagnosis Office Visit 12/11/2020 11:00a [place] [facility] Jamison Quiros M. D. R07.89 Other chest pain Z23 Encounter for immunization Office Visit 11/01/2020 10:40a [place] [facility] Jamison Quiros M. D. E11.649 Type 2 diabetes mellitus with hypoglycemia without coma I10 Essential (primary) hyperten stephanie E78.5 Hyperlipidemia, unspecified Z23 Encounter for immunization Office Visit 10/22/2020 11:00a [place] [facility] Jamison Quiros M. D. E11.649 Type 2 diabetes mellitus with hypoglycemia without coma Office Visit 10/18/2020 11:15a [place] [facility] Jamison Quiros M. D. E11.649 Type 2 diabetes mellitus with hypoglycemia without coma Office Visit 10/10/2020 9:30a [place] [facility] Alissa Vides, FAAFP E16.0 Drug-induced hypoglycemia without coma I10 Essential (primary) hyperten stephanie E11.649 Type 2 diabetes mellitus wit h hypoglycemia without coma Office Visit 09/16/2020 2:00p [place] [facility] Jamison Quiros M. D. R10.9 Unspecified abdominal pain Office Visit 07/23/2020 10:20a [place] [facility] Jamison Quiros M. D. E11.649 Type 2 diabetes mellitus with hypoglycemia without coma Office Visit 07/08/2020 11:15a [place] [facility] Jamison Quiros M. D. E11.649 Type 2 diabetes mellitus with hypoglycemia without coma Assessments Date Code Description Provider 12/11/2020 R07.89 Other chest pain Jamison Quiros M.D. 12/11/2020 Z23 Encounter for immunization Jamison Du M.D. 11/01/2020 E11.649 Type 2 diabetes mellitus with hy poglycemia without coma Jamison Quiros M.D. 11/01/2020 I10 Essential (primary) hypertension Jamison Quiros M.D. 11/01/2020 E78.5 [facility], [facility] 11/01/2020 Z23 Encounter for [...] Future Appointment(s):* 01/15/2021 10:20 am - Jamison uQiros M.D. at [place] [facility] Functional Status Description No Information Available Mental Status Description No Information Available Referrals Refer to Dr Reason for Referral Status Appt Date Luke Mccollum M.D. chest pain, multiple cardiac risk factor s, eval and rx Sent [facility] [address] [place] [address] [phone] [facility] Cardiology chest pain- eval and rx Sent [address] [place] [address] [phone] Dilia Cain M.D. uncontrolled diabetes, sever al hospitalizations, ER visits for hypoglycemia- eval and rx Sent [facility] [address] [place] [address] [phone]
--- OUTSIDE RECORDS SUMMARY | 2021-01-06 19:59 | CCD | Continuity of Care Document ---
Author Author Elsy QUIROS M.D. Organization Unknown Address [address] [place] [id number] Phone [phone] Care Team Providers Care Supervisor Of Research Name Role Phone Dilia Cain M.D. AUTM [phone] Problems Active Problems Provider Date Essential hypertension [...] CPT Code Status Date Vaccine Lot # [id number] Given 12/11/2020 Influenza Virus Vaccine, Quadrivalent, Slit Virus, Im Use 3Y & Up [id number] 33547 Given 11/01/2020 Influenza Virus Vaccine, Quadrivalent, Slit Virus, Im Use 3Y & Up [id number] 22469 Given 11/06/2019 Influenza Virus Vaccine, Quadrivalent, Slit Virus, Im Use 3Y & Up [id number] 26266 Given 01/04/2019 Influenza Virus Vaccine, Quadrivalent, Slit Virus, Im Use 3Y & Up [id number] Vital Signs Date Vital Result Comment 12/11/2020 10:57am BP Systolic 124 mmHg BP Diastolic 70 mmHg Body Temperature 97.5 F Heart Rate 70 /min Respiratory Rate 18 /min Height 60.5 inches 5'0.50" Weight 166.00 lb [place] Body Weight 100 lb BMI (Body Mass Index) 31.9 kg/m2 O2 % BldC Oximetry 97 % 11/01/2020 11:12am BP Systolic 126 mmHg BP Diastolic 70 mmHg Body Temperature 97.4 F Heart Rate 70 /min Respiratory Rate 14 /min Height 60.5 inches 5'0.50" Weight 170.00 lb [place] Body Weight 100 lb BMI (Body Mass Index) 32.7 kg/m2 O2 % BldC Oximetry 97 % Results Test Acquired Date Facility Test Result H/L Range Note Influenza A/B RSV Covid Amp 12/28/2020 [facility] dical (Interface) [phone] Influenza A Amplification NEGATIVE Normal Negati ve 1 Influenza B Amplification NEGATIVE Normal Negative 2 RSV Amplification NEGATIVE Normal Negative 3 Sars Covid-19 Amplification NEGATIVE Normal Negative 4 Basic Metabolic Profile 12/28/2020 [facility] l (Interface) [phone] Glucose, Fasting 345 mg/dL High 70-100 Blood [...] mg/dL Normal 8.8-10.2 Laboratory test finding 12/28/2020 [facility] ([facility]) [phone] C Reactive Protein Quantitativ 1.63 mg/dL High 0 .00-0.30 CBC With Differential 12/28/2020 [facility]) [phone] White Blood Count 6.9 10 Normal 4.0-10.0 [...] 36.0-66.0 Lymph % 27.0 % Normal 24.0-44.0 Beaver % 6.3 % Normal 2.0-8.0 Eos % 2.0 % Normal 0.0-3.0 Baso % 0.4 % Normal 0.0-1.0 Immature Granulocyte % 0.1 % Normal 0-3.0 Nucleated Red Blood Cell % 0.0 % Normal 0-0 Neutrophils # 4.4 10 Normal 1.5-8.5 Lymph # 1.9 10 Normal 1.5-5.0 Beaver # 0.4 10 Normal 0.0-0.8 Eos # 0.1 10 Normal 0.0-0.5 Baso # 0.0 10 Normal 0.0-0.2 Laboratory test finding 12/28/2020 [facility] ([facility]) [phone] Erythrocyte Sedimentation Rate 25 mm/hr Normal 0 -30 Laboratory test finding 12/28/2020 [facility]) [phone] Bedside Glucose 120 mg/dL High 83-110 Prothrombin Time/Inr 11/26/2020 [facility]) [phone] Prothrombin Time 12.9 seconds Normal 12.7-14.5 Inr 0.94 Normal 6 Laboratory test finding 11/26/2020 [facility] (Interface) [phone] Lipase 219 U/L Normal 73-393 Thyroid Stimulating Hormone 3.800 uIU/ML High 0.358-3.740 Free T4 1.03 ng/dL Normal 0.76-1.46 Basic Metabolic Profile 11/26/2020 [facility] (Interface) [phone] Glucose, Fasting 191 mg/dL High 70-100 Blood [...] 9.2 mg/dL Normal 8.8-10.2 Liver Profile 11/26/2020 [facility] [phone] Ast/Sgot 21 U/L Normal 7-37 Alt/SGPT 20 U/L Normal 12-78 Alkaline Phosphatase 120 U/L High 45-117 Bilirubin,Total 0.4 mg/dL Normal 0.2-1.0 Bilirubin,Direct < 0.1 mg/dL Normal 0.0-0.2 Total Protein 6.6 GM/DL Normal 6.4-8.2 Albumin 3.3 GM/DL Normal 3.2-5.2 Albumin/Globulin Ratio 1.0 Low 1.2-2.2 Laboratory test finding 11/26/2020 [facility] (Interface) [phone] Partial Thromboplastin Time 28.4 seconds Normal 25 .9-37.0 CBC With Differential 11/26/2020 [facility]) [phone] White Blood Count 8.8 10 Normal 4.0-10.0 [...] 36.0-66.0 Lymph % 29.7 % Normal 24.0-44.0 Beaver % 6.3 % Normal 2.0-8.0 Eos % 2.4 % Normal 0.0-3.0 Baso % 0.6 % Normal 0.0-1.0 Immature Granulocyte % 0.2 % Normal 0-3.0 Nucleated Red Blood Cell % 0.0 % Normal 0-0 Neutrophils # 5.4 10 Normal 1.5-8.5 Lymph # 2.6 10 Normal 1.5-5.0 Beaver # 0.6 10 Normal 0.0-0.8 Eos # 0.2 10 Normal 0.0-0.5 Baso # 0.1 10 Normal 0.0-0.2 Laboratory test finding 11/26/2020 [facility] (Interface) [phone] iSTAT Troponin 0.07 NG/ML Normal 0.00-0.08 Laboratory test finding 11/26/2020 [facility] (Interface) [phone] iSTAT Troponin 0.02 NG/ML Normal 0.00-0.08 Laboratory test finding 11/20/2020 [facility] (Interface) [phone] Bedside Glucose 309 mg/dL High 83-110 Laboratory test finding 11/20/2020 [facility] (Interface) [phone] Bedside Glucose 107 mg/dL Normal 83-110 Laboratory test finding 11/20/2020 [facility] (Interface) [phone] Bedside Glucose 32 mg/dL Critical low 83-110 8 Laboratory test finding 11/20/2020 [facility] (Interface) [phone] Bedside Glucose 25 mg/dL Critical low 83-110 9 Laboratory test finding 11/20/2020 [facility] (Interface) [phone] Bedside Glucose 36 mg/dL Critical low 83-110 10 Laboratory test finding 11/20/2020 [facility] (Interface) [phone] Bedside Glucose 84 mg/dL Normal 83-110 Laboratory test finding 11/20/2020 [facility] (Interface) [phone] Bedside Glucose 208 mg/dL High 83-110 Hemoglobin [...] eGFR 75 # Calc 13 eGFR Non-Afr. Cameroonian 65 # Calc 14 Lipid Panel 11/01/2020 [facility] Chol 131 mg/dL 0 - 200 Trig 76 mg/dL 40 - 200 HDL 57 mg/dL 45 - 65 LDL_C 59 Calc Low 75 - 129 Cho/HDL Ratio 2.3 Calc Laboratory test finding 10/15/2020 [facility] (Interface) [phone] Osmolality Serum 290 MOSM/KG Normal 280-301 Thyroid Stimulating Hormone 2.430 uIU/ML Normal 0.358-3.740 Basic Metabolic Profile 10/15/2020 [facility] (Interface) [phone] Glucose, Fasting 44 mg/dL Low 70-100 Blood [...] 9.2 mg/dL Normal 8.8-10.2 Liver Profile 10/15/2020 [facility] [phone] Ast/Sgot 12 U/L Normal 7-37 Alt/SGPT 22 U/L Normal 12-78 Alkaline Phosphatase 97 U/L Normal 45-117 Bilirubin,Total 0.2 mg/dL Normal 0.2-1.0 Bilirubin,Direct < 0.1 mg/dL Normal 0.0-0.2 Total Protein 6.9 GM/DL Normal 6.4-8.2 Albumin 3.5 GM/DL Normal 3.2-5.2 Albumin/Globulin Ratio 1.0 Low 1.2-2.2 Cardiac Marker Panel 10/15/2020 [facility] ( Interface) [phone] CPK Creatine Phosphokinase 43 U/L Normal 26-19 2 CK-MB Value Mass < 1.0 NG/ML Normal <3.6 MB/CK Relative Index 2.33 Normal < Or =4 16 Troponin I < 0.02 NG/ML Normal < 0.10 17 Laboratory test finding 10/15/2020 [facility] (Interface) [phone] Bedside Glucose 43 mg/dL Low 83-110 Laboratory test finding 10/15/2020 [facility] (Interface) [phone] Bedside Glucose 159 mg/dL High 83-110 Laboratory test finding 10/15/2020 [facility] (Interface) [phone] Bedside Glucose 203 mg/dL High 83-110 CBC With Differential 10/15/2020 [facility] (Interface) [phone] White Blood Count 8.1 10 Normal 4.0-10.0 [...] 36.0-66.0 Lymph % 37.8 % Normal 24.0-44.0 Beaver % 6.8 % Normal 2.0-8.0 Eos % 3.2 % High 0.0-3.0 Baso % 0.6 % Normal 0.0-1.0 Immature Granulocyte % 0.2 % Normal 0-3.0 Nucleated Red Blood Cell % 0.0 % Normal 0-0 Neutrophils # 4.2 10 Normal 1.5-8.5 Lymph # 3.1 10 Normal 1.5-5.0 Beaver # 0.6 10 Normal 0.0-0.8 Eos # 0.3 10 Normal 0.0-0.5 Baso # 0.1 10 Normal 0.0-0.2 Istat Chem8+ Panel 10/13/2020 [facility] (I nterface) [phone] iSTAT HCT 40.0 % Normal 38.0-51.0 iSTAT [...] mg/dL High 65-109 Laboratory test finding 10/03/2020 [facility] (Interface) [phone] Bedside Glucose 217 mg/dL High 83-110 Laboratory test finding 10/03/2020 [facility] (Interface) [phone] Bedside Glucose 77 mg/dL Low 83-110 Laboratory test finding 10/03/2020 [facility] (Interface) [phone] Bedside Glucose 31 mg/dL Critical low 83-110 Venous Blood Gas 10/03/2020 [facility] (I [facility]terface) [phone] Venous PH 7.375 units Normal 7.330-7.430 Venous Partial Pressure Co2 44.2 mmHg Normal 38.0-50.0 Venous Partial Pressure O2 41.4 mmHg Normal 30.0-50.0 Venous Total Co2 26.6 mEq/L Normal 24.0-28.0 Venous Hco3 25.3 mEq/L Normal 23.0-27.0 Venous Base Excess -0.2 Normal -2.0-2.0 Venous Standard Hco3 23.9 mEq/L Normal Venous O2 Saturation 77.9 % Normal 60.0-80.0 CBC With Differential 10/03/2020 [facility] (Interface) [phone] White Blood Count 7.5 10 Normal 4.0-10.0 [...] 36.0-66.0 Lymph % 30.2 % Normal 24.0-44.0 Beaver % 6.3 % Normal 2.0-8.0 Eos % 1.6 % Normal 0.0-3.0 Baso % 0.7 % Normal 0.0-1.0 Immature Granulocyte % 0.3 % Normal 0-3.0 Nucleated Red Blood Cell % 0.0 % Normal 0-0 Neutrophils # 4.6 10 Normal 1.5-8.5 Lymph # 2.3 10 Normal 1.5-5.0 Beaver # 0.5 10 Normal 0.0-0.8 Eos # 0.1 10 Normal 0.0-0.5 Baso # 0.1 10 Normal 0.0-0.2 Cardiac Marker Panel 10/03/2020 [facility] ( Interface) [phone] CPK Creatine Phosphokinase 77 U/L Normal 26-19 2 CK-MB Value Mass 1.5 NG/ML Normal <3.6 MB/CK Relative Index 1.95 Normal < Or =4 18 Troponin I < 0.02 NG/ML Normal < 0.10 19 Basic Metabolic Profile 10/03/2020 [facility] (Interface) [phone] Glucose, Fasting 58 mg/dL Low 70-100 Blood [...] Normal 8.8-10.2 Laboratory test finding 10/03/2020 [facility] (Interface) [phone] Magnesium Level 2.2 mg/dL Normal 1.8-2.4 Thyroid [...] eGFR 75 # Calc 23 eGFR Non-Afr. Cameroonian 65 # Calc 24 CBC 09/16/2020 [facility] [...] 9.0 - 13.0 Laboratory test finding 07/13/2020 [facility] (Interface) [phone] Bedside Glucose 177 mg/dL High 83-110 25 Istat Chem8+ Panel 07/13/2020 [facility] (I nterface) [phone] iSTAT HCT 35.0 % Low 38.0-51.0 iSTAT Glucose 229 mg/dL High 70-105 iSTAT Sodium 138 mEq/L Normal 136-145 iSTAT Potassium 4.3 mEq/L Normal 3.5-5.1 iSTAT CA++ 4.7 mg/dL Normal 4.5-5.3 iSTAT Chloride 100 mEq/L Normal 98-109 iSTAT Co2 31.0 MM/L High 23.0-27.0 iSTAT BUN 26 mg/dL Normal 8-26 iSTAT Creatinine 1.6 mg/dL High 0.6-1.3 Laboratory test finding 07/13/2020 [facility] (Interface) [phone] Bedside Glucose 245 mg/dL High 83-110 Ua W/ Reflex To Culture 07/05/2020 [facility] (Interface) [phone] Appearance, Urine RFX CLEAR Normal Clear Color, Urine RFX STRAW Normal Yellow PH,Urine RFX 6.0 units Normal 5.0-9.0 Specific [place] Ur Auto RFX 1.006 Normal 1.002-1.035 Protein, [...] 0-1 Drug Eval Toxicology ED Only 07/05/2020 [facility] (Interface) [phone] Amphetamines Level Urine NEGATIVE Normal Negativ e Barbiturates Urine NEGATIVE Normal Negative Benzodiazepines Urine NEGATIVE Normal Negative Cannabinoids Urine NEGATIVE Normal Negative Cocaine Metabolite Urine NEGATIVE Normal Negative Methadone Urine NEGATIVE Normal Negative Opiates Urine NEGATIVE Normal Negative Phencyclidine Urine NEGATIVE Normal Negative 26 Blood Culture 07/05/2020 [facility]) [phone] Blood Culture No growth after <SEE NOTE> 27 CBC With Differential 07/05/2020 [facility]) [phone] White Blood Count 6.0 10 Normal 4.0-10.0 [...] 36.0-66.0 Lymph % 43.0 % Normal 24.0-44.0 Beaver % 6.5 % Normal 2.0-8.0 Eos % 5.5 % High 0.0-3.0 Baso % 0.7 % Normal 0.0-1.0 Immature Granulocyte % 0.3 % Normal 0-3.0 Nucleated Red Blood Cell % 0.0 % Normal 0-0 Neutrophils # 2.6 10 Normal 1.5-8.5 Lymph # 2.6 10 Normal 1.5-5.0 Beaver # 0.4 10 Normal 0.0-0.8 Eos # 0.3 10 Normal 0.0-0.5 Baso # 0.0 10 Normal 0.0-0.2 Venous Blood Gas 07/05/2020 [facility]) [phone] Venous PH 7.328 units Low 7.330-7.430 Venous Partial Pressure Co2 56.7 mmHg High 38.0-50.0 Venous Partial Pressure O2 39.1 mmHg Normal 30.0-50.0 Venous Total Co2 30.8 mEq/L High 24.0-28.0 Venous Hco3 29.1 mEq/L High 23.0-27.0 Venous Base Excess 2.0 Normal -2.0-2.0 Venous Standard Hco3 25.6 mEq/L Normal Venous O2 Saturation 69.2 % Normal 60.0-80.0 Laboratory test finding 07/05/2020 [facility] ([facility]) [phone] Ammonia 30 uMOL/L Normal <32 Cardiac Marker Panel 07/05/2020 [facility]) [phone] CPK Creatine Phosphokinase 90 U/L Normal 26-19 2 CK-MB Value Mass 1.6 NG/ML Normal <3.6 MB/CK Relative Index 1.78 Normal < Or =4 28 Troponin I < 0.02 NG/ML Normal < 0.10 29 Liver Profile 07/05/2020 [facility]) [phone] Ast/Sgot 16 U/L Normal 7-37 Alt/SGPT 21 U/L Normal 12-78 Alkaline Phosphatase 89 U/L Normal 45-117 Bilirubin,Total 0.4 mg/dL Normal 0.2-1.0 Bilirubin,Direct < 0.1 mg/dL Normal 0.0-0.2 Total Protein 7.3 GM/DL Normal 6.4-8.2 Albumin 4.0 GM/DL Normal 3.2-5.2 Albumin/Globulin Ratio 1.2 Normal 1.2-2.2 Basic Metabolic Profile 07/05/2020 [facility]) [phone] Glucose, Fasting 113 mg/dL High 70-100 Blood [...] mg/dL Normal 8.8-10.2 Laboratory test finding 07/05/2020 [facility] ([facility]) [phone] Thyroid Stimulating Hormone 7.580 uIU/ML High 0. 358-3.740 Blood Culture 07/05/2020 [facility]) [phone] Blood Culture No growth after <SEE NOTE> [...] pathogens. DISCLAIMER: Testing was performed using the [facility] SARS-CoV-2 test. This test was developed and its performance characteristics determined by [facility]. This test has not been FDA cleared [...] Little GFR Left ESRD GFR <15 on AUTOMATIC BOW MAKER MACHINE TENDER 6 THERAPUTIC HUMAN INR VALUES INDICATIONS NORMAL [...] Little GFR Left ESRD GFR <15 on AUTOMATIC [employer]OW [employer] MACHINE TENDER 8 Doctor Notified 9 Doctor Notified 10 [...] Little GFR Left ESRD GFR <15 on AUTOM[employer]IC [employer]ACHINE TENDER 16 DIAGNOSIS CRITERIA MMB ng/ml Relative Index (RI) NON-AMI < or = 5 N/A GIL ZONE > 5 < or = 4 AMI > 5 > 4 17 Troponin I Reference Interva l for [place]ja [place] LOCI: 99th Percentile= 0.00-0.045 ng/ml Risk Stratification: [...] 19 Troponin I Reference Interva l for [place] LOCI: 99th Percentile= 0.00-0.045 ng/ml Risk Stratification: [...] Little GFR Left ESRD GFR <15 on AUTOMATIC [employer]OW [employer]ER MACHINE TENDER 21 Prediabetes: 5.7 - 6.4 Diabetes: >6.4 [...] HCT IS 5% LESS SOURCE FOR DATA: [employer] 1800 OPERATION MANUAL( AUTOMATED BLOOD COUNTS AND [...] 29 Troponin I Reference Interva l for [place] LOCI: 99th Percentile= 0.00-0.045 ng/ml Risk Stratification: [...] Little GFR Left ESRD GFR <15 on AUTOMATIC [employer]OW [employer] MACHINE TENDER 31 This specimen has an elevate d [...] DAYS Procedures Date Code Description Status 12/11/2020 39313 Office/Outpatient Established Mo d MDM 30-39 Min Completed 11/01/2020 89504 Office/Outpatient Established Mo d MDM 30-39 Min Completed 10/22/2020 91743 Office/Outpatient Established Mo d MDM 30-39 Min Completed 10/18/2020 63311 Office/Outpatient Established Mo d MDM 30-39 Min Completed 10/10/2020 66058 Office/Outpatient Established Mo d MDM 30-39 Min Completed 10/10/2020 78584 Capillary Blood Collection Finge r, Heel, Ear Stick Completed 09/16/2020 76244 Office/Outpatient Established Mo d MDM 30-39 Min Completed 07/23/2020 00332 Office/Outpatient Established Mo d MDM 30-39 Min Completed 07/08/2020 94411 Office/Outpatient Established Mo d MDM 30-39 Min Completed 11/15/2019 [id number] Mammogram Completed Medical Devices Description No Information Available Encounters Type Date Location Provider Dx Diagnosis Office Visit 12/11/2020 11:00a [facility] Jamison Quiros M. D. R07.89 Other chest pain Z23 Encounter for immunization Office Visit 11/01/2020 10:40a [facility] Jamison Quiros M. D. E11.649 Type 2 diabetes mellitus with hypoglycemia without coma I10 Essential (primary) hyperten stephanie E78.5 Hyperlipidemia, unspecified Z23 Encounter for immunization Office Visit 10/22/2020 11:00a [facility] Jamison Quiros M. D. E11.649 Type 2 diabetes mellitus with hypoglycemia without coma Office Visit 10/18/2020 11:15a [facility] Jamison Quiros M. D. E11.649 Type 2 diabetes mellitus with hypoglycemia without coma Office Visit 10/10/2020 9:30a [facility] Alissa Vides, FAAFP E16.0 Drug-induced hypoglycemia without coma I10 Essential (primary) hyperten stephanie E11.649 Type 2 diabetes mellitus wit h hypoglycemia without coma Office Visit 09/16/2020 2:00p [facility] Jamison Quiros M. D. R10.9 Unspecified abdominal pain Office Visit 07/23/2020 10:20a [facility] Jamison Quiros M. D. E11.649 Type 2 diabetes mellitus with hypoglycemia without coma Office Visit 07/08/2020 11:15a [facility] Jamison Quiros M. D. E11.649 Type 2 diabetes mellitus with hypoglycemia without coma Assessments Date Code Description Provider 12/11/2020 R07.89 Other chest pain Jamison Quiros M.D. 12/11/2020 Z23 Encounter for immunization Jamison Du M.D. 11/01/2020 E11.649 Type 2 diabetes mellitus with hy poglycemia without coma Jamison Quiros M.D. 11/01/2020 I10 Essential (primary) hypertension Jamison Quiros M.D. 11/01/2020 E78.5 [facility], [facility]/01/2020 Z23 Encounter [...] 10:20 am - Jamison Quiros M.D. at [facility] Functional Status Description No Information Available Mental Status Description No Information Available Referrals Refer to Dr Reason for Referral Status Appt Date Luke Mccollum M.D. chest pain, multiple cardiac risk factor s, eval and rx [facility] [address] [place] [address] [phone] [facility] Cardiology chest pain- [place] [address] [place] [address] [phone] Dilia Cain M.D. uncontrolled diabetes, sever al hospitalizations, ER visits for hypoglycemia- eval and rx Sent [facility] [address] [place] [address] [phone]
--- OUTSIDE RECORDS SUMMARY | 2021-01-06 20:02 | CCD ---
Author Author [facility] Organization [facility] Address Unknown Phone Unavailable Care Team Providers Care Servicer [employer] Name Role Phone Ramon KINGSTON MD Unavailable [...] Unavailable Ramon KINGSTON MD Unavailable Unavailable Ramon KINGSOTN MD Unavailable Unavailable Ramon KINGSTON MD Unavailable [...] Unavailable Ady Ramsey MD Unavailable Unavailable Ady aRmsey MD Unavailable Unavailable Ady Ramsey MD Unavailable [...] Unavailable GHULAM, M DEBBY PA Unavailable Unavailable GUHLAM, M DEBBY PA Unavailable Unavailable Babatunde SANTILLAN MD Unavailable Unavailable Babatunde SANTILLAN MD Unavailable Unavailable BARAYUGABabatunde MD Unavailable Unavailable [...] JAIME PA Unavailable Unavailable EVER, B RM LEACHER Unavailable Unavailable EVER, B RM LEACHER Unavailable Unavailable EVER, B RM LEACHER Unavailable Unavailable EVER, B RM LEACHER Unavailable Unavailable EVER, B RM LEACHER Unavailable Unavailable EVER, B RM LEACHER Unavailable Unavailable EVER, B RM LEACHER Unavailable Unavailable EVER, B RM LEACHER Unavailable Unavailable EVER, B RM LEACHER Unavailable Unavailable EVER, B RM LEACHER Unavailable Unavailable EVER, B RM LEACHER Unavailable Unavailable EVER, B RM LEACHER Unavailable Unavailable EVER, B RM LEACHER Unavailable Unavailable EVER, B RM LEACHER Unavailable Unavailable EVER, B RM LEACHER Unavailable Unavailable EVER, B RM LEACHER Unavailable Unavailable EVER, B RM LEACHER Unavailable Unavailable EVER, B RM LEACHER Unavailable Unavailable EVER, B RM LEACHER Unavailable Unavailable EVER, B RM LEACHER Unavailable Unavailable EVER, B RM LEACHER Unavailable Unavailable EVER, B RM LEACHER Unavailable Unavailable EVER, B RM LEACHER Unavailable Unavailable EVER, B RM LEACHER Unavailable Unavailable EVER, B RM LEACHER Unavailable Unavailable EVER, B RM LEACHER Unavailable Unavailable EVER, B RM LEACHER Unavailable Unavailable EVER, B RM LEACHER Unavailable Unavailable EVER, B RM LEACHER Unavailable Unavailable EVER, B RM LEACHER Unavailable Unavailable EVER, B RM LEACHER Unavailable Unavailable EVER, B RM LEACHER Unavailable Unavailable EVER, B RM LEACHER Unavailable Unavailable EVER, B RM LEACHER Unavailable Unavailable EVER, B RM LEACHER Unavailable Unavailable EVER, B RM LEACHER Unavailable Unavailable EVER, B RM LEACHER Unavailable Unavailable EVER, B RM LEACHER Unavailable Unavailable EVER, B RM LEACHER Unavailable Unavailable EVER, B RM LEACHER Unavailable Unavailable EVER, B RM LEACHER Unavailable Unavailable EVER, B RM LEACHER Unavailable Unavailable EVER, B RM LEACHER Unavailable Unavailable EVER, B RM LEACHER Unavailable Unavailable EVER, B RM LEACHER Unavailable Unavailable EVER, B RM LEACHER Unavailable Unavailable EVER, B RM LEACHER Unavailable Unavailable EVER, B RM LEACHER Unavailable Unavailable EVER, B RM LEACHER Unavailable Unavailable EVER, B RM LEACHER Unavailable Unavailable EVER, B RM LEACHER Unavailable Unavailable EVER, B RM LEACHER Unavailable Unavailable EEVR, B RM LEACHER Unavailable Unavailable EVER, B RM LEACHER Unavailable Unavailable EVER, B RM LEACHER Unavailable Unavailable EVER, B RM LEACHER Unavailable Unavailable EVER, B RM LEACHER Unavailable Unavailable EVER, B RM LEACHER Unavailable Unavailable EVER, B RM LEACHER Unavailable Unavailable EVER, B RM LEACHER Unavailable Unavailable EVER, B RM LEACHER Unavailable Unavailable EVER, B RM LEACHER Unavailable Unavailable Fish, B Dilia ZAPATA Unavailable [...] Dilia ZAPATA Unavailable Unavailable Fish, B Dilia ZAPAAT Unavailable Unavailable Fish, B Dilia ZAPATA Unavailable [...] Unavailable Kevin, D Ajime PA Unavailable Unavailable Kevin, D Jaime PA [...] is protected by Article 27-F of the [facility] Public Health law. If you continue you may have access to information: Regarding HIV / AIDS; Provided by facilities licensed or operated by the [facility] Office of Mental Health; or Provided by the [facility] Office for People With Developmental Disabilities. If such information is present, then the following [facility] mandated warning applies: This information has [...] law may result in a fine or senior living sentence or both. A general authorization for the release of medical or other information is NOT sufficient authorization for further disc losure. Allergies and Adverse Reactions Type Description Substance Reaction Status Data Source(s ) Drug Allergy NKDA NKDA [facility] ([facility]) Family History Family Member Name Family Member Gender Family Member Status Date o f Status Description Data Source(s) Unknown Unknown Problem [facility] ([facility]) father,mother,sister Unknown Unknown Problem [facility] ([facility]) Unknown Female Problem MED[facility] ([facility]) Unknown Female Problem MED[facility] ([facility]) Unknown Female Problem MED[facility] ([facility]) Unknown Female Problem [facility] ([facility]) Unknown Female Problem [facility] ([facility]) Unknown Female Problem MED[facility] ([facility]) Unknown Female Problem [facility] Encounters Encounter Providers Location Date Indications Data Source(s ) Outpatient Attender: JAMISON KINGSTON MD [facility] 11:00:00 AM EDT [facility] ([facility] Outpatient Attender: JAMISON KINGSTON MD [facility] 11/2020 10:40:00 AM EDT MED[facility] ([facility] Outpatient Attender: LIANE Barnes/Farideh/Rakesh/ Reindl 10/29/2020 11:15:00 AM EDT [facility] ([facility] Outpatient Attender: AJMISON KINGSTON MD [facility] 11:00:00 AM EDT MED[facility] ([facility] Outpatient Attender: JAMISON KINGSTON MD [facility] 11:15:00 AM EDT MED[facility] ([facility] Outpatient Attender: Jamison Barnes/Farideh/Rakesh/Re indl 10/17/2020 01:45:00 PM EDT [facility] ([facility] Outpatient Attender: Ganga Cain [facility] 10/10/2020 09:30:0 0 AM EDT [facility] ([facility] Outpatient Attender: JAMISON KINGSTON MD [facility] 02:00:00 PM EDT MEDENT ([facility] Outpatient Attender: LIANE Barnes/Farideh/Rakesh/ Reinjavon 09/12/2020 10:45:00 AM EDT MED[facility] ([facility] Outpatient Attender: RM CURTIS NP Physical Therapy 10:45:00 AM EDT MEDENT ([facility] Outpatient Attender: JAIME Calvert marcial 09/03/2020 05:30:00 PM EDT [facility] ([facility] Outpatient Attender: JAMISON KINGSTON MD [facility] 02/2020 10:20:00 AM EDT [facility] ([facility] OFFICE OUTPATIENT NEW 60 MINUTES Attender: Dilia Cain MD Physi michael Therapy 07/16/2020 01:00:00 PM EDT MED[facility] ([facility]) Outpatient Attender: JAMISON KINGSTON MD [facility] 11:15:00 AM EDT [facility] ([facility] Office Visit Attender: LIANE Barnes/Farideh/Rakesh/ Reinjavon 06/20/2020 10:00:00 AM EDT [facility] ([facility] Outpatient Attender: JAMISON KINGSTON MD [facility] 11:30:00 AM EDT [facility] ([facility] Office Visit Attender: LIANE Bhakta/Rakesh/ Sheila 06/06/2020 09:30:00 AM EDT [facility] ([facility] Outpatient Attender: JAMISON KINGSTON MD [facility] 03/2020 02:00:00 PM EDT [facility] ([facility] Office Visit Attender: LIANE Barnes/Farideh/Rakesh/ Reinjavon 05/23/2020 09:45:00 AM EDT [facility] ([facility] Outpatient Attender: JAMISON KINGSTON MD [facility] 01/2021 02:00:00 PM EST [facility] ([facility] Outpatient Attender: LIANE Barnes/Farideh/Rakesh/ Reindl 04/18/2020 12:45:00 PM EST [facility] ([facility] Outpatient Attender: JAMISON KINGSTON MD [facility] 02:40:00 PM EST MED[facility] ([facility] Outpatient Attender: CATHIE Barnes/Farideh/Ang el/Reindl 03/18/2020 08:00:00 AM EST [facility] ([facility] OFFICE OUTPATIENT VISIT 15 MINUTES Attender: Christophe VALENCIA Physical Therapy 03/12/2020 09:30:00 AM EST MED[facility] ([facility]) OFFICE OUTPATIENT VISIT 15 MINUTES Attender: Christophe VALENCIA Physical Therapy 02/27/2020 09:30:00 AM EST MEDENT ([facility]) OFFICE OUTPATIENT VISIT 15 MINUTES Attender: DEBBY VALENCIA Ph ysical Therapy 01/22/2020 04:45:00 PM EST MEDENT ([facility]) Outpatient Attender: JAIME Calvert marcial 01/21/2020 12:15:00 PM EST MED[facility] ([facility]) Emergency Attender: MICHAEL BRUNER MDConsultant: JAMISON OSWALD MD 12/31/2019 03:26:00 PM EST - 12/31/2019 06:17:00 PM EST [facility] Patient discharged. Outpatient Attender: Jaime VALENCIA [facility] 06/2019 12:15:00 PM EST MED[facility] ([facility] Outpatient Attender: CATHIE Barnes/Farideh/Ang el/Reindl 12/13/2019 11:30:00 AM EDT [facility] ([facility] Outpatient Attender: JAMISON KINGSTON MD [facility] 01:30:00 PM EDT MED[facility] ([facility] Immunizations Vaccine Date Status Description Data Source(s) New in 2012. IIV4 12/11/2020 11:27:00 AM EDT completed [facility] ([facility] New in 2012. IIV4 11/01/2020 11:05:00 AM EDT completed [facility] ([facility] COVID-19 VACCINE Moderna 06/10/2020 12:00:00 AM EDT completed [facility] Vaccine Series Complete: YESThis Data wa s Submitted to [facility] Via [employer]. COVID-19 VACC,MRNA(MODERNA)/PF 06/10/2020 12:00:00 AM EDT completed [facility] COVID-19 VACCINE, MRNA-1273, LNP-S (MODERNA)/PF 05/18/2020 1 2:00:00 AM EDT completed [facility] COVID-19 VACCINE Moderna 05/17/2020 12:00:00 AM EDT completed [facility] Vaccine Series Complete: NOThis Data was Submitted to [facility] Via [employer]. Medications Medication Brand Name Start Date Product Form Dose Route Admi nistrative Instructions Pharmacy Instructions Status Indications Reaction Description Data Source(s) Cephalexin 500 MG Oral Capsule CEPHALEXIN 12/29/2020 12:00:00 AM EDT capsule 40 TAKE ONE CAPSULE BY MOUTH FOUR TIMES A DAY TAKE ONE CA PSULE BY MOUTH FOUR TIMES A DAY SOLD: 12/29/2020 [facility] 3 mg/0.5 mL 11/26/2020 12:00:00 AM EDT [...] 11/01/2020 12:00:00 AM EDT ORAL active [facility] ([facility] empagliflozin 10 MG Oral Tablet [Jardiance] Jardiance 11/01/2020 12:00:00 AM EDT ORAL active [facility] ([facility] 500 mg 10/30/2020 12:00:00 AM EDT tablet 60 TAKE ONE TABLET BY MOUTH TWICE A DAY FOR PAIN TAKE ONE TABLET BY MOUTH TWICE A DAY FOR PAIN SOLD: 10/30/2020 [facility] Trulicity Trulicity 10/22/2020 12:00:00 AM EDT act mario MEDENT ([facility] 3 ML insulin detemir 100 UNT/ML Pen Injector [Levemir] Levem ir Flextouch 10/22/2020 12:00:00 AM EDT active MEDENT ([facility] 0.5 ML dulaglutide 3 MG/ML Auto-Injector [Trulicity] Trulici ty 10/18/2020 12:00:00 AM EDT completed [facility] ([facility] empagliflozin 25 MG Oral Tablet [Jardiance] Jardiance 10/18/2020 12:00:00 AM EDT ORAL completed [facility] ([facility] 33 gauge 10/12/2020 12:00:00 AM [...] 09/11/2020 12:00:00 AM EDT active M EDENT ([facility]) 0.75 mg/0.5 mL 09/04/2020 12:00:00 [...] HCL 09/03/2020 12:00:00 AM EDT active MEDENT ([facility]) 4 mg 09/03/2020 12:00:00 AM EDT tablet [...] 0.5 ML dulaglutide 1.5 MG/ML Auto-Injector [Trulicity] [facility] 07/16/2020 12:00:00 AM EDT completed MED[facility] ([facility]) empagliflozin 10 MG Oral Tablet [Jardiance] Jardiance 07/16/2020 12:00:00 AM EDT ORAL active [facility] 100 unit/mL 07/03/2020 12:00:00 AM EDT solution 10 INJECT 7 UNITS UNDER THE SKIN TWO TIMES A DAY INJECT 7 UNITS UNDER THE SKIN TWO TIMES A DAY SOLD: 07/03/2020 [facility] insulin detemir 100 UNT/ML Injectable Solution [Levemir] Lev marina 07/03/2020 12:00:00 AM EDT active M EDENT ([facility]) 1 mg 06/18/2020 12:00:00 AM EDT recon soln 1 DIRECTED DIRECTED SOLD: 06/20/2020 [facility] Glucagon 1 MG Injection Glucagon Emergency 06/18/2020 12:00:00 AM EDT active [facility] ([facility] Metformin hydrochloride 1000 MG Oral Tablet 1,000 mg METFORM IN HCL 05/20/2020 12:00:00 AM EDT tablet 60 TAKE ONE TABLET BY MOUTH TWICE A DAY AT 8:00AM AND 6:00PM TAKE ONE TABLET BY MOUTH TWICE A DAY AT 8:00AM AND 6:0 0PM SOLD: 05/21/2020 [facility] Acetaminophen 325 MG / Hydrocodone Bitartrate 5 MG Oral Tabl et [Garwin] Garwin 05/10/2020 12:00:00 AM EDT ORAL completed MEDENT ([facility] 5-325 mg 05/10/2020 12:00:00 AM EDT tablet 12 TAKE ONE TABLET BY MOUTH THREE TIMES A DAY NEEDED FOR PAIN MAXIMUM DAILY DOSE = 3 TABLETS TAKE ONE TABLET BY MOUTH THREE TIMES A DAY NEEDED FOR PAIN MAXIMUM DAILY DOSE = 3 TABLETS SOLD: 05/21/2020 [facility] Docusate Sodium 100 MG Oral Capsule [DOK] Dok 04/30/2020 12:00:0 0 AM EST completed MEDENT ([facility], ) 420 gram 04/10/2020 12:00:00 AM EST recon [...] Kwikpen 04/08/2020 12:00:00 AM EST completed [facility] ([facility] Bisacodyl 5 MG Delayed Release Oral Tablet [Dulcolax] Dulcol ax 03/18/2020 12:00:00 AM EST completed MEDENT ([facility], ) POLYETHYLENE GLYCOL 3350 142 MG/ML Oral Solution [Miralax] M iralax 03/18/2020 12:00:00 AM EST completed [facility] ([facility], ) Dicyclomine Hydrochloride 20 MG Oral Tablet Dicyclomine HCL 03/18/2020 12:00:00 AM EST ORAL completed [facility] ([facility], ) Clenpiq Clenpiq 03/18/2020 12:00:00 AM EST complet ed MEDENT ([facility], ) POLYETHYLENE GLYCOL 3350 105 MG/ML / Pot assium Chloride 0.30170 MEQ/ML / Sodium Bicarbonate 0.017 MEQ/ML / Sodium Chloride 0.0479 MEQ/ML Oral Solution [GaviLyte-N] Gavilyte-N With Flavor Pack 03/18/2020 12:00:00 AM EST completed [facility] ([facility], ) 20 mg 03/18/2020 12:00:00 AM [...] U-100 01/24/2020 12:00:00 AM EST active MED[facility] ([facility] ) 10 mg 12/14/2019 12:00:00 [...] 12/13/2019 12:00:00 AM EDT ORAL completed [facility] ([facility], ) BLOOD-GLUCOSE METER 12/08/2019 12:00:00 AM EDT misc 1 USE UP TO FOUR TIMES A DAY DIRECTED USE UP TO FOUR TIMES A DAY DIRECTED SOLD: 12/20/2019 [facility] Blood Glucose Monitoring System 12/06/2019 12:00:00 AM EDT active [facility] ([facility] Docusate Sodium 100 MG Oral Capsule [DOK] Dok 11/19/2019 12:00:0 0 AM EDT completed MED[facility] ([facility], ) Aspirin 81 MG Delayed Release Oral Tablet SM Aspirin Adult L ow Strength 11/13/2019 12:00:00 AM EDT active MED[facility] ([facility] Insurance Providers Payer name Policy type / Coverage type Policy ID Covered democrat ID Covered democrat's relationship to reynoso Policy Reynoso Plan Information [employer] Medigap Part B [id number] .[id number] Family Dependent [id number] [employer] P[employer] Medigap Part B [id number] 2.16.840.1.338873.3.227.99 .4595.05951.0 Family Dependent [id number] [employer]/Umr (Old) Medigap Part B [id number] 2.16.840.1.25137 3.3.227.99.4595.18189.0 Family Dependent [id number] [employer] P[employer] Medigap Part B [id number] 2.16.840.1.576590.3.227.99 .4595.02483.0 Family Dependent [id number] [employer]/Umr (Old) Medigap Part B [id number] 2.16.840.1.23777 3.3.227.99.4595.25355.0 Family Dependent [id number] [employer] P[employer] Medigap Part B [id number] 2.16.840.1.143104.3.227.99 .4595.22183.0 Family Dependent [id number] [employer] Ppo Medigap Part B [id number] 2.16.840.1.926810.3.227.99 .4595.32280.0 Family Dependent [id number] [employer]/Umr (Old) Medigap Part B [id number] 2.16.840.1.22295 3.3.227.99.4595.17157.0 Family Dependent [id number] [employer] P[employer] Medigap Part B [id number] 2.16.840.1.086466.3.227.99 .4595.22710.0 Family Dependent [id number] Umr [employer] Medigap Part B [id number] 2.16.840.1.369595.3.227.9 9.4595.64016.0 Family Dependent [id number] [employer] Commercial [id number] Family Dependent 33 5 Umr [employer] P[employer] Medigap Part B [id number] 2.16.840.1.046972.3.227.9 9.4595.40808.0 Family Dependent [id number] Umr [employer] P[employer] Medigap Part B [id number] 2.16.840.1.205049.3.227.9 9.4595.79257.0 Family Dependent [id number] [employer]/Umr (Old) Medigap Part B [id number] 2.16.840.1.57798 3.3.227.99.4595.31668.0 Family Dependent [id number] [employer] (pr) Medigap Part B [id number] 2.16.840.1.354447.3.227.99 .991.63265.0 Family Dependent [id number] [employer] (pr) Medigap Part B [id number] 2.16.840.1.170175.3.227.99 .991.47892.0 Family Dependent [id number] [employer] (pr) Medigap Part B [id number] 2.16840.1.010011.3.227.99 .991.32622.0 Family Dependent [id number] [employer] (pr) Medigap Part B [id number] Family Dependent 335 Medicare Natl Govt Servic Medicare Primary [id number] Self Medicare Natl Govt Servic Medicare Primary [id number] 2.840.1.597122.3.227.99.4595.70021.0 Self [id number] Medicare Natl Govt Servic Medicare Primary [id number] 2.840.1.286200.3.227.99.4595.44919.0 Self [id number] Medicare Natl Govt Servic Medicare Primary [id number] 2.840.1.190488.3.227.99.4595.28436.0 Self [id number] Medicare Natl Govt Servic Medicare Primary [id number] 2.840.1.679021.3.227.99.4595.32237.0 Self [id number] Medicare Natl Govt Servic Medicare Primary [id number] 2.840.1.403562.3.227.99.4595.05196.0 Self [id number] Medicare Natl Govt Servic Medicare Primary [id number] 2.16.840.1.214587.3.227.99.4595.54899.0 Self [id number] Medicare Natl Govt Servic Medicare Primary [id number] 2.16840.1.303808.3.227.99.4595.60827.0 Self [id number] Medicare Natl Govt Servic Medicare Primary [id number] 2.16840.1.846527.3.227.99.4595.68459.0 Self [id number] Medicare Natl Govt Servic Medicare Primary [id number] 2.16840.1.197453.3.227.99.4595.72109.0 Self [id number] Medicare Natl Govt Servic Medicare Primary [id number] 2.840.1.620452.3.227.99.4595.31586.0 Self [id number] Medicare Natl Govt Servic Medicare Primary [id number] 2.0.1.029529.3.227.99.4595.38292.0 Self [id number] Medicare Natl Govt Servic Medicare Primary [id number] 2.840.1.962231.3.227.99.4595.88324.0 Self [id number] Medicare Natl Govt Servic Medicare Primary [id number] 2.840.1.864365.3.227.99.4595.46403.0 Self [id number] [facility]) Commercial [id number] 04.09.830.1.851277.3.227.99.991.65019.0 Self [id number] [facility]) Commercial Complete Choice [id number] Self Complete Choice UMR [facility] [id number] 2 [id number] Umr ([facility]) Medigap Part B [id number] 04.09.830.1.667562.3.227 .99.4595.07985.0 Family Dependent [id number] Umr (as Of 06/22/2017) Medigap Part B [id number] 04.09.830.1.690180.3.227.99.4595.87491.0 Family Dependent [id number] MEDICARE COMPLETE [id number] SP [id number] United HLCR/Medicare Solu Commercial [id number] .1.584978.3.227.99.1767.33068.0 Self [id number] UMR O [id number] P [id number] 1 MEDICARE COMPLETE-UHC O [id number] S [id number] Medicare Natl Gov't Servi Medigap Part B [id number] .1.334028.3.227.99.1767.83061.0 Self [id number] Umr/[employer] Medigap Part B [id number] .1.797530.3.227.9 9.1767.22719.0 Family Dependent [id number] United HLCR/Medicare Solu Commercial [id number] .1.553184.3.227.99.1767.43573.0 Self [id number] [employer] [id number] .1.784108.3.227.99.936.49163.0 Self [id number] Umr/Uhc/[employer] Medigap Part B [id number] .1.257299.3.227.9 9.1767.56430.0 Family Dependent [id number] Medicare Natl Gov't Servi Medigap Part B [id number] .1.986612.3.227.99.1767.28878.0 Self [id number] United HLCR/Medicare Solu Commercial [id number] .1.972857.3.227.99.1767.29421.0 Self [id number] [employer] [id number] .1.318509.3.227.99.936.02377.0 Self [id number] [employer] Medigap Part B [id number] .1.218643.3.227.99 .936.49200.0 Family Dependent [id number] [employer] [id number] HU2 [id number] [employer] PPO O [id number] S [id number] Medicare Natl Gov't Servi Medigap Part B [id number] 04.09.830.1.415155.3.227.99.1767.75788.0 Self [id number] [employer] Medigap Part B [id number] .1.966590.3.227.99 .1767.76106.0 Family Dependent [id number] [place] HLCR/Medicare Solu Commercial [id number] .1.959375.3.227.99.1767.04846.0 Self [id number] [employer] Commercial [id number] .1.805281.3.227.99.936.28913.0 Self [id number] Medicare Natl Gov't Servi Medigap Part B [id number] .1.547382.3.227.99.1767.63068.0 Self [id number] [employer] Commercial [id number] .1.588836.3.227.99.1 767.53602.0 Family Dependent [id number] [employer] Commercial [id number] .1.444606.3.227.99.936.45588.0 Self [id number] [facility] Medicare Denise Commercial [id number] .1.691821.3.227.99.4595.44383.0 Self [id number] 00 [employer] Commercial [id number] .1.004811.3.227.99.936.26568.0 Self [id number] [employer] Commercial [id number] .1.466009.3.227.99.936.66333.0 Self [id number] [employer] Commercial [id number] .1.487499.3.227.99.936.56994.0 Self [id number] [employer] Medigap Part B [id number] 2.840.1.745946.3.227.99 .8646.36901.0 Family Dependent [id number] [facility] Medicare Primary [id number] 2.0.1.421950.3.227.99.8646.00853.0 Self [id number] [facility] Medicare Commercial [id number] 2.0.1.078316.3.227.99.8646.52099.0 Self [id number] [place] [id number] 2.0.1.730331.3.227.99.936.19405.0 Self [id number] [employer] Medigap Part B [id number] 2.0.1.004307.3.227.99 .1767.04281.0 Family Dependent [id number] Medicare Natl Gov't Servi Medicare Primary [id number] 2.0.1.201867.3.227.99.1767.11969.0 Self [id number] [facility] Medicare Denise Commercial [id number] Self [id number] [facility] Medigap Part B [id number] Self Ppo [place] 2.0.1.953922 .3.227.99.936.15983.0 Self [employer] Commercial [id number] Family Dependent Medicare Dme Supplies Medigap Part B [id number] Self Medicare [facility] Medicare Primary [id number] Self MEDICARE [id number] SP [id number] A MEDICARE C [id number] S [id number] A [employer] Medigap Part B [id number] Family Dependent Medicare Natl Gov't Servi Medicare Primary [id number] Self [employer] [id number] 2 [id number] [employer] INSURANCE [id number] SP [id number] GHI P [id number] S [id number] MEDICARE [id number] SP [id number] UMR [facility] [id number] HU2 [id number] MEDICARE COMPLETE [id number] SP [id number] UMR O [id number] S [id number] MEDICARE COMPLETE-UHC O [id number] S [id number] UNHC MEDICARE COMPLETE - O/P [id number] 18 [id number] UMR [facility] [id number] HU2 [id number] UMR O [id number] S [id number] [place] [id number] Self [id number] [employer] Medigap Part B [id number] Family Dependent [id number] r Commercial [id number] Family Dependent [id number] [place] [id number] .1.675559.3.227.99.936.43090.0 Self [id number] [place] [employer] [id number] .1.660489.3.227.99.936.79004.0 Self [id number] Medicare Natl Gov't Servi Medigap Part B [id number] .1.881568.3.227.99.1767.41782.0 Self [id number] Umr/Uhc/[employer] Medigap Part B [id number] .1.767435.3.227.9 9.1767.32200.0 Family Dependent [id number] [facility] [id number] Self [id number] Medicare Natl Gov't Servi Medigap Part B [id number] Self [id number] Umr/Uhc/[employer]om[employer] Medigap Part B [id number] Family Dependent [id number] [place] HLCR/Medicare Solu Commercial [id number] Self [id number] Medicare Natl Gov't Servi Medigap Part B [id number] Self [id number] Umr/Uhc/[employer]omco Medigap Part B [id number] Family Dependent [id number] [place] HLCR/Medicare Solu Commercial [id number] Self [id number] Medicare Dme Supplies Medigap Part B [id number] Self 0 [id number] [place] Med[place]ap [place] B [id number] Self 0 [id number] Umr (pr) Medigap Part B [id number] 6.0 Self [id number] [facility] [employer] Commercial [id number] Self [id number] 00 i/[facility] Medigap Part B [id number] Self [id number] [place] [employer] [id number] Self [id number] Medicare Dme Supplies Medigap Part B [id number] Self 0 [id number] [place] Medigap Part B [id number] Self [id number] Umr (pr) Medigap Part B [id number] 6.0 Self [id number] Medicare Dme Supplies Medigap Part B [id number] Self 0 [id number] [place] Medigap Part B [id number] Self [id number] Umr (pr) Medigap Part B [id number] 6.0 Self [id number] [place] [id number] Self [id number] Medicare Natl Gov't Servi Medigap Part B [id number] Self [id number] Umr/Uhc/[employer] Medigap Part B [id number] Family Dependent [id number] Problems, Conditions, and Diagnoses Code Display Name Description Problem Type Effective Dates Data Source(s) J18093 Personal history of nicotine dependence Personal history of nicotine dependence Diagnosis 12/31/2019 03:26:00 PM [facility] Z7984 long-term (current) use of oral hypoglyc emic drugs long-term (current) use of oral hypoglycemic drugs Diagnosis 12/31/2019 03:26:00 PM [facility] 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 long-term (cu 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 Diagnosis 12/31/2019 03:26:00 PM [facility] I10 Essential (primary) hypertension Essential (primary) h ypertension Diagnosis 12/31/2019 03:26:00 PM [facility] E785 Hyperlipidemia, unspecified Hyperlipidemia, unspecifie d Diagnosis 12/31/2019 03:26:00 PM [facility] E119 Type 2 diabetes mellitus without complic ations Type 2 diabetes mellitus without complications Diagnosis 12/31/2019 03:26:00 PM [facility] J9801 Acute bronchospasm Acute bronchospasm Diagnosis 09/2019 03:26:00 PM [facility] R0789 Other chest pain Other chest pain Diagnosis 12/31/2019 03 :26:00 PM [facility] Surgeries/Procedures Procedure Description Date Indications Data Source(s) DEBRIDEMENT NAIL ANY METHOD 12/20/2020 12:00:00 AM EDT [facility] ([facility] OFFICE OUTPATIENT VISIT 25 MINUTES 12/11/2020 12:00:00 AM EDT [facility] ([facility] OFFICE OUTPATIENT VISIT 25 MINUTES 11/01/2020 12:00:00 AM EDT [facility] ([facility] OFFICE OUTPATIENT VISIT 15 MINUTES 10/29/2020 12:00:00 AM EDT [facility] ([facility], ) OFFICE OUTPATIENT VISIT 25 MINUTES 10/22/2020 12:00:00 AM EDT [facility] ([facility] OFFICE OUTPATIENT VISIT 25 MINUTES 10/18/2020 12:00:00 AM EDT [facility] ([facility] OFFICE OUTPATIENT NEW 30 MINUTES 10/17/2020 12:00:00 A M EDT [facility] ([facility], ) OFFICE OUTPATIENT NEW 45 MINUTES 10/17/2020 12:00:00 A M EDT [facility] ([facility], ) DEBRIDEMENT NAIL ANY METHOD > 10/11/2020 12:00:00 AM EDT [facility] ([facility] Capillary Blood Collection Finger, Heel, Ear Stick 10/10/2020 12:00:00 AM EDT [facility] ([facility] OFFICE OUTPATIENT VISIT 25 MINUTES 10/10/2020 12:00:00 AM EDT [facility] ([facility] OFFICE OUTPATIENT VISIT 25 MINUTES 09/16/2020 12:00:00 AM EDT [facility] ([facility] OFFICE OUTPATIENT VISIT 15 MINUTES 09/12/2020 12:00:00 AM EDT [facility] ([facility], ) OFFICE OUTPATIENT VISIT 25 MINUTES 09/11/2020 12:00:00 AM EDT [facility] ([facility]) OFFICE OUTPATIENT VISIT 25 MINUTES 09/03/2020 12:00:00 AM EDT [facility] ([facility]) DEBRIDEMENT NAIL ANY METHOD 07/26/2020 12:00:00 AM EDT [facility] ([facility] OFFICE OUTPATIENT VISIT 25 MINUTES 07/23/2020 12:00:00 AM EDT [facility] ([facility] OFFICE OUTPATIENT NEW 60 MINUTES 07/16/2020 12:00:00 A M EDT [facility] ([facility]) OFFICE OUTPATIENT VISIT 25 MINUTES 07/08/2020 12:00:00 AM EDT [facility] ([facility] OFFICE OUTPATIENT VISIT 25 MINUTES 06/18/2020 12:00:00 AM EDT [facility] ([facility] OFFICE OUTPATIENT VISIT 25 MINUTES 05/24/2020 12:00:00 AM EDT [facility] ([facility] DEBRIDEMENT NAIL ANY METHOD 05/17/2020 12:00:00 AM EDT [facility] ([facility] EXC TUMOR SOFT TISSUE ABDOMINAL WALL SUBQ <3CM 021 12:00:00 AM EDT [facility] ([facility]) EXC TUMOR SOFT TISSUE ABDOMINAL WALL SUBQ <3CM 021 12:00:00 AM EDT [facility] ([facility]) OFFICE OUTPATIENT VISIT 25 MINUTES 05/03/2020 12:00:00 AM EST [facility] ([facility] Diabetic Foot Exam 04/22/2020 12:00:00 AM EST [facility] ([facility]) OFFICE OUTPATIENT NEW 30 MINUTES 04/18/2020 12:00:00 A M EST [facility] ([facility]) OFFICE OUTPATIENT VISIT 25 MINUTES 04/15/2020 12:00:00 AM EST [facility] ([facility] OFFICE OUTPATIENT VISIT 25 MINUTES 03/18/2020 12:00:00 AM EST [facility] ([facility]) RADEX FINGR MINIMUM 2 VIEWS 03/12/2020 12:00:00 AM EST [facility] ([facility]) DEBRIDEMENT NAIL ANY METHOD 03/08/2020 12:00:00 AM EST [facility] ([facility] RADEX FINGR MINIMUM 2 VIEWS 02/27/2020 12:00:00 AM EST [facility] ([facility]) DEBRIDEMENT NAIL ANY METHOD 12/28/2019 12:00:00 AM EST [facility] ([facility] Electrocardiogram Complete 12/28/2019 12:00:00 AM EST [facility] ([facility] Electrocardiogram Complete 11/22/2019 12:00:00 AM EDT [facility] ([facility] Mammogram 11/15/2019 12:00:00 AM EDT M [facility]ENT ([facility] Results ID Date Data Source [id number] 12/28/2020 07:24:00 PM EDT [facility] ([facility] Name Value Range Interpretation Code Description Data Leona rce(s) Supporting Document(s) Glucose [Mass/volume] in Capillary blood by Glucometer 120 mg/dL 83-110 Above high normal [facility] ([facility] ) ID Date Data Source [id number] 12/28/2020 06:32:00 PM EDT [facility] Name Value Range Interpretation Code Description Data Leona rce(s) Supporting Document(s) SARS coronavirus 2 RNA [Presence] in Res piratory specimen by DANIELA with probe detection NEGATIVE [facility] This lab was ordered by [facility] a nd reported by [facility]. ID Date Data Source [id number] 12/28/2020 06:32:00 PM EDT [facility] ([facility] Name Value Range Interpretation Code Description Data Leona rce(s) Supporting Document(s) Influenza A Amplification Laboratory test result Normal (applies to non- numeric results) [facility] ([facility] ) Negative results do not preclude influen za or RSV virus infection and should not be used as the sole basis for treatment or other patient management decisions. RSV Amplification Laboratory test result Normal (applies to non-numeric results) [facility] ([facility] ) Negative results do not preclude influen za or RSV virus infection and should not be used as the sole basis for treatment or other patient management decisions. Influenza B Amplification Laboratory test result Normal (applies to non- numeric results) [facility] ([facility] ) Negative results do not preclude influen za or RSV virus infection and should not be used as the sole basis for treatment or other patient management decisions. Laboratory test finding (navigational concept) Laboratory test r esult Normal (applies to non-numeric results) [facility] ([facility] A false negative result may occur if a s pecimen is improperly collected, transported or handled. False [...] pathogens. DISCLAIMER: Testing was performed using the [facility] SARS-CoV-2 test. This test was developed and its performance characteristics determined by [facility]. This test has not been FDA cleared [...] the authorization is terminated or revoked sooner. ID Date Data Source [id number] 12/28/2020 04:30:00 PM EDT [facility] ([facility] Name Value Range Interpretation Code Description Data Leona rce(s) Supporting Document(s) Erythrocyte sedimentation rate by Westergren method 25 mm/hr 0-30 Normal (applies to non-numeric results) [facility] ([facility] ID Date Data Source [id number] 12/28/2020 04:30:00 PM EDT [facility] ([facility] Name Value Range Interpretation Code Description Data Lenoa rce(s) Supporting Document(s) White Blood Count 6.9 10 4.0-10.0 Normal (applies to non-numeri c results) [facility] ([facility] Red Blood Count 4.73 10 4.00-5.40 Normal (applies to non-numeric results) [facility] ([facility] Hematocrit 40.9 % 36.0-47.0 Normal (applies to non-numeric resul ts) [facility] ([facility] Hemoglobin 12.6 g/dL 12.0-15.5 Normal (applies to non-numeric resul ts) [facility] ([facility] Mean Corpuscular Volume 86.5 fl 80.0-96.0 Normal ( applies to non-numeric results) [facility] ([facility] ) Mean Corpuscular Hemoglobin 26.6 pg 27.0-33.0 Below low normal [facility] ([facility] Red Cell Distribution Width 16.1 % 11.5-14.5 Above high normal [facility] ([facility] Mean Corpuscular HGB Conc 30.8 g/dL 32.0-36.5 Below low normal [facility] ([facility] Neutrophils % 64.2 % 36.0-66.0 Normal (applies to non-numeric re sults) [facility] ([facility] Lymph % 27.0 % 24.0-44.0 Normal (applies to non-numeric resul ts) [facility] ([facility] Platelet Count, Automated 335 10 150-450 Normal (applies to non-numeric results) [facility] ([facility] ) Eos % 2.0 % 0.0-3.0 Normal (applies to non-numeric resul ts) [facility] ([facility] Union % 6.3 % 2.0-8.0 Normal (applies to non-numeric resul ts) [facility] ([facility] Nucleated Red Blood Cell % 0.0 % 0-0 Normal (applies to n on-numeric results) [facility] ([facility] Immature Granulocyte % 0.1 % 0-3.0 Normal (applies to non-n umeric results) [facility] ([facility] Baso % 0.4 % 0.0-1.0 Normal (applies to non-numeric resul ts) [facility] ([facility] Neutrophils # 4.4 10 1.5-8.5 Normal (applies to non-numeric re sults) [facility] ([facility] Lymph # 1.9 10 1.5-5.0 Normal (applies to non-numeric resul ts) [facility] ([facility] Union # 0.4 10 0.0-0.8 Normal (applies to non-numeric resul ts) [facility] ([facility] Eos # 0.1 10 0.0-0.5 Normal (applies to non-numeric resul ts) [facility] ([facility] Baso # 0.0 10 0.0-0.2 Normal (applies to non-numeric resul ts) [facility] ([facility] ID Date Data Source [id number] 12/28/2020 04:30:00 PM EDT [facility] ([facility] Name Value Range Interpretation Code Description Data Leona rce(s) Supporting Document(s) C reactive protein [Mass/volume] in Serum or Plasma by High sensitivity method 1.63 mg/dL 0.00-0.30 Above high normal [facility] ID Date Data Source [id number] 12/28/2020 04:30:00 PM EDT [facility] Name Value Range Interpretation Code Description Data Leona rce(s) Supporting Document(s) Creatinine For GFR 1.01 mg/dL 0.55-1.30 Normal (applies to non -numeric results) [facility] ([facility] Glucose, Fasting 345 mg/dL 70-100 Above high normal M [facility] ([facility] Blood Urea Nitrogen 16 mg/dL 7-18 Normal (applies to non-nume samantha results) [facility] ([facility] Sodium Level 140 meq/L 136-145 Normal (applies to non-numeric res ults) [facility] ([facility] Glomerular Filtration Rate 57.7 Normal (applies to n on-numeric results) [facility] ([facility] <content>Units are mL/min/1.73 m2</content>
<content></content>
<content>Chronic Kidney Disease Staging per NKF:</content>
<content></content>
<content>Stage I & II GFR >=60 Normal to Mildly Decreased</content>
<content>Stage III GFR 30- 59 Moderately Decreased</content>
<content>Stage IV GFR 15-29 Severely Decreased</content>
<content>Stage V GFR <15 Very Little GFR Left</content>
<content>ESRD GFR <15 on RISK CONTROL SPECIALIST</content>
<content></content> Potassium Serum 3.9 meq/L 3.5-5.1 Normal (applies to non-numeric results) [facility] ([facility] Chloride Level 103 meq/L 98-107 Normal (applies to non-numeric r esults) [facility] ([facility] Calcium Level 9.2 mg/dL 8.8-10.2 Normal (applies to non-numeric re sults) [facility] ([facility] Anion Gap 7 meq/L 8-16 Below low normal [facility] ( [facility] Carbon Dioxide Level 30 meq/L 21-32 Normal (applies to non-num ana rosa results) [facility] ([facility] ID Date Data Source [id number] 11/26/2020 11:58:00 PM EDT [facility] ([facility] Name Value Range Interpretation Code Description Data Leona rce(s) Supporting Document(s) Laboratory test finding (navigational concept) 0.02 ng/mL 0 .00-0.08 Normal (applies to non-numeric results) [facility] ([facility] ID Date Data Source [id number] 11/26/2020 10:36:00 PM EDT [facility] ([facility] Name Value Range Interpretation Code Description Data Leona rce(s) Supporting Document(s) Laboratory test finding (navigational concept) 0.07 ng/mL 0 .00-0.08 Normal (applies to non-numeric results) [facility] ([facility] ID Date Data Source [id number] 11/26/2020 10:20:00 PM EDT [facility] ([facility] Name Value Range Interpretation Code Description Data Leona rce(s) Supporting Document(s) Red Blood Count 5.20 10 4.00-5.40 Normal (applies to non-numeric results) [facility] ([facility] White Blood Count 8.8 10 4.0-10.0 Normal (applies to non-numeri c results) [facility] ([facility] Hemoglobin 13.7 g/dL 12.0-15.5 Normal (applies to non-numeric resul ts) [facility] ([facility] Hematocrit 44.5 % 36.0-47.0 Normal (applies to non-numeric resul ts) [facility] ([facility] Mean Corpuscular Hemoglobin 26.3 pg 27.0-33.0 Below low normal [facility] ([facility] Mean Corpuscular Volume 85.6 fl 80.0-96.0 Normal ( applies to non-numeric results) [facility] ([facility] ) Mean Corpuscular HGB Conc 30.8 g/dL 32.0-36.5 Below low normal [facility] ([facility] Red Cell Distribution Width 16.4 % 11.5-14.5 Above high normal [facility] ([facility] Platelet Count, Automated 317 10 150-450 Normal (applies to non-numeric results) [facility] ([facility] ) Neutrophils % 60.8 % 36.0-66.0 Normal (applies to non-numeric re sults) [facility] ([facility] Union % 6.3 % 2.0-8.0 Normal (applies to non-numeric resul ts) [facility] ([facility] Lymph % 29.7 % 24.0-44.0 Normal (applies to non-numeric resul ts) [facility] ([facility] Baso % 0.6 % 0.0-1.0 Normal (applies to non-numeric resul ts) [facility] ([facility] Immature Granulocyte % 0.2 % 0-3.0 Normal (applies to non-n umeric results) [facility] ([facility] Eos % 2.4 % 0.0-3.0 Normal (applies to non-numeric resul ts) [facility] ([facility] Lymph # 2.6 10 1.5-5.0 Normal (applies to non-numeric resul ts) [facility] ([facility] Neutrophils # 5.4 10 1.5-8.5 Normal (applies to non-numeric re sults) [facility] ([facility] Nucleated Red Blood Cell % 0.0 % 0-0 Normal (applies to n on-numeric results) [facility] ([facility] Union # 0.6 10 0.0-0.8 Normal (applies to non-numeric resul ts) [facility] ([facility] Eos # 0.2 10 0.0-0.5 Normal (applies to non-numeric resul ts) [facility] ([facility] Baso # 0.1 10 0.0-0.2 Normal (applies to non-numeric resul ts) [facility] ([facility] ID Date Data Source [id number] 11/26/2020 10:20:00 PM EDT [facility] ([facility] Name Value Range Interpretation Code Description Data Leona rce(s) Supporting Document(s) aPTT in Platelet poor plasma by Coagulation assay 28.4 s 25.9-37.0 Normal (applies to non-numeric results) [facility] ([facility] ID Date Data Source [id number] 11/26/2020 10:20:00 PM EDT [facility] ([facility] Name Value Range Interpretation Code Description Data Leona rce(s) Supporting Document(s) Ast/Sgot 21 U/L 7-37 Normal (applies to non-numeric resul ts) [facility] ([facility] Alkaline Phosphatase 120 U/L 45-117 Above high normal [facility] ([facility] Alt/SGPT 20 U/L 12-78 Normal (applies to non-numeric resul ts) [facility] ([facility] Bilirubin,Direct Laboratory test result 0.0-0.2 Normal ( applies to non-numeric results) [facility] ([facility] ) Total Protein 6.6 GM/DL 6.4-8.2 Normal (applies to non-numeric re sults) [facility] ([facility] Bilirubin,Total 0.4 mg/dL 0.2-1.0 Normal (applies to non-numeric results) [facility] ([facility] Albumin 3.3 GM/DL 3.2-5.2 Normal (applies to non-numeric resul ts) [facility] ([facility] Albumin/Globulin Ratio 1.0 1.2-2.2 Below low normal [facility] ([facility] ID Date Data Source [id number] 11/26/2020 10:20:00 PM EDT [facility] ([facility] Name Value Range Interpretation Code Description Data Leona rce(s) Supporting Document(s) Glucose, Fasting 191 mg/dL 70-100 Above high normal M [facility] ([facility] Glomerular Filtration Rate Laboratory test result Normal (applies to non- numeric results) [facility] ([facility] ) <content>Units are mL/min/1.73 m2</content>
<content></content>
<content>Chronic Kidney Disease Staging per NKF:</content>
<content></content>
<content>Stage I & II GFR >=60 Normal to Mildly Decreased</content>
<content>Stage III GFR 30- 59 Moderately Decreased</content>
<content>Stage IV GFR 15-29 Severely Decreased</content>
<content>Stage V GFR <15 Very Little GFR Left</content>
<content>ESRD GFR <15 on RISK CONTROL SPECIALIST</content>
<content></content> Blood Urea Nitrogen 19 mg/dL 7-18 Above high normal [facility] ([facility] Creatinine For GFR 0.92 mg/dL 0.55-1.30 Normal (applies to non -numeric results) [facility] ([facility] Chloride Level 103 meq/L 98-107 Normal (applies to non-numeric r esults) [facility] ([facility] Sodium Level 137 meq/L 136-145 Normal (applies to non-numeric res ults) [facility] ([facility] Potassium Serum 4.4 meq/L 3.5-5.1 Normal (applies to non-numeric results) [facility] ([facility] Anion Gap 6 meq/L 8-16 Below low normal [facility] ( [facility] Carbon Dioxide Level 28 meq/L 21-32 Normal (applies to non-num ana rosa results) [facility] ([facility] Calcium Level 9.2 mg/dL 8.8-10.2 Normal (applies to non-numeric re sults) [facility] ([facility] ID Date Data Source [id number] 11/26/2020 10:20:00 PM EDT [facility] ([facility] Name Value Range Interpretation Code Description Data Leona rce(s) Supporting Document(s) Thyroxine (T4) free [Mass/volume] in Serum or Plasma 1.03 ng/dL 0.76-1.46 Normal (applies to non-numeric results) [facility] ([facility] Lipoprotein lipase [Enzymatic activity/volume] in Serum or P lasma 219 U/L 73-393 Normal (applies to non-numeric results) [facility] ([facility] Thyrotropin [Units/volume] in Serum or Plasma 3.800 uIU/ML 0. 358-3.740 Above high normal [facility] ([facility] ) ID Date Data Source [id number] 11/26/2020 10:20:00 PM EDT [facility] ([facility] Name Value Range Interpretation Code Description Data Leona rce(s) Supporting Document(s) Inr 0.94 Normal (applies to non-numeric resul ts) [facility] ([facility] THERAPUTIC HUMAN INR VALUES INDICATIONS NORMAL RANGES PROPHYLAXIS/TREATMENT OF: VENOUS THROMBOSIS 2.0-3.0 PULMONARY EMBOLISM 2.0-3.0 PREVENTION OF SYSTEMIC EMBOLISM FROM: TISSUE HEART VALVES 2.0-3.0 ACUTE MYOCARDIAL INFARCTION 2.0-3.0 VALVULAR HEART DISEASE 2.0-3.0 ATRIAL FIBRILLATION 2.0-3.0 MECHANICAL VALVES(HIGH RISK) 2.5-3.5 RECURRENT MYOCARDIAL INFARCTION 2.5-3.5 Prothrombin Time 12.9 s 12.7-14.5 Normal (applies to non-numeric results) [facility] ([facility] ID Date Data Source [id number] 11/20/2020 09:13:00 PM EDT [facility] ([facility] Name Value Range Interpretation Code Description Data Leona rce(s) Supporting Document(s) Glucose [Mass/volume] in Capillary blood by Glucometer 309 mg/dL 83-110 Above high normal [facility] ([facility] [facility] ) ID Date Data Source [id number] 11/20/2020 07:29:00 PM EDT [facility] ([facility] Name Value Range Interpretation Code Description Data Leona rce(s) Supporting Document(s) Glucose [Mass/volume] in Capillary blood by Glucometer 208 mg/dL 83-110 Above high normal [facility] ([facility] ID Date Data Source [id number] 11/20/2020 06:58:00 PM EDT [facility] ([facility] Name Value Range Interpretation Code Description Data Leona rce(s) Supporting Document(s) Glucose [Mass/volume] in Capillary blood by Glucometer 84 mg/dL 83-110 Normal (applies to non-numeric results) [facility] ([facility] ID Date Data Source [id number] 11/20/2020 06:21:00 PM EDT [facility] ([facility] Name Value Range Interpretation Code Description Data Leona rce(s) Supporting Document(s) Glucose [Mass/volume] in Capillary blood by Glucometer 36 mg/dL 83-110 Below lower panic limits [facility] ([facility] ) Doctor Notified ID Date Data Source [id number] 11/20/2020 06:01:00 PM EDT [facility] ([facility] Name Value Range Interpretation Code Description Data Leona rce(s) Supporting Document(s) Glucose [Mass/volume] in Capillary blood by Glucometer 25 mg/dL 83-110 Below lower panic limits [facility] ([facility] Doctor Notified ID Date Data Source [id number] 11/20/2020 06:00:00 PM EDT [facility] ([facility] Name Value Range Interpretation Code Description Data Leona rce(s) Supporting Document(s) Glucose [Mass/volume] in Capillary blood by Glucometer 32 mg/dL 83-110 Below lower panic limits [facility] ([facility] Doctor Notified ID Date Data Source [id number] 11/20/2020 04:24:00 PM EDT [facility] ([facility] Name Value Range Interpretation Code Description Data Leona rce(s) Supporting Document(s) Glucose [Mass/volume] in Capillary blood by Glucometer 107 mg/dL 83-110 Normal (applies to non-numeric results) [facility] ([facility] ID Date Data Source [id number] 11/01/2020 11:10:00 AM EDT [facility] ([facility] Name Value Range Interpretation Code Description Data Leona rce(s) Supporting Document(s) Hemoglobin A1c/Hemoglobin.total in Blood 7.5 % 4.8-5.6 Above high normal [facility] ([facility] <content>Prediabetes: 5.7 - 6.4</content >
<content>Diabetes: >6.4</content>
<content>Glycemic control for adults with diabetes: <7.0</content>
<content></content> ID Date Data Source [id number] 11/01/2020 11:09:00 AM EDT [facility] ([facility] Name Value Range Interpretation Code Description Data [facility] Supporting Document(s) Chol 131 mg/dL 0-200 [facility] ([facility] CHRONIC KIDNEY DISEASE STAGING PER [...] YEARS EXCLUSIVE. Trig 76 mg/dL 40-200 [facility] ([facility] CHRONIC [...] YEARS EXCLUSIVE. Cho/HDL Ratio 2.3 Calc [facility] ([facility] CHRONIC KIDNEY DISEASE STAGING [...] Calc 75-129 Below low normal [facility] ( [facility] CHRONIC KIDNEY DISEASE [...] 2-19 YEARS EXCLUSIVE. ID Date Data Source [id number] 11/01/2020 11:09:00 AM EDT MEDRADHA ([facility] Name Value Range Interpretation Code Description Data Leona rce(s) Supporting Document(s) BUN 18 mg/dL 8- [facility] ([facility] CHRONIC [...] 113 mg/dL 70-110 Above high normal [facility] ([facility] CHRONIC [...] 0.5-1.0 [facility] ([facility] CHRONIC [...] YEARS EXCLUSIVE. BUN/Creatinine Ratio 20.3 CALC [facility] ([facility] CHRONIC KIDNEY DISEASE [...] mmol/L 136-145 Below low normal [facility] ( [facility] CHRONIC KIDNEY DISEASE [...] EXCLUSIVE. K 4.2 mmol/L 3.5-5.1 [facility] ([facility] CHRONIC KIDNEY DISEASE [...] YEARS EXCLUSIVE. Co2 22.1 mmol/L 22.0-29.0 [facility] ([facility] CHRONIC KIDNEY DISEASE STAGING PER [...] TP 6.2 g/dL 6.6-8.7 Below low normal [facility] ( [facility] CHRONIC KIDNEY [...] 2-19 YEARS EXCLUSIVE. Alb 4.3 g/dL 3.4-4.8 [facility] ([facility] CHRONIC [...] EXCLUSIVE. Alt (SGPT) 9 U/L 0-41 [facility] CHRONIC KIDNEY DISEASE STAGING PER [...] 2-19 YEARS EXCLUSIVE. Anion Gap 20 mmol/L [facility] ([facility] CHRONIC KIDNEY [...] INDIVIDUALA AGED 2-19 YEARS EXCLUSIVE. eGFR Non-Afr. Montenegrin 65 # [facility] ([facility] [...] 2-19 YEARS EXCLUSIVE. ID Date Data Source [id number] 10/15/2020 05:37:00 PM EDT [facility] ([facility] Name Value Range Interpretation Code Description Data Leona rce(s) Supporting Document(s) Glucose [Mass/volume] in Capillary blood by Glucometer 203 mg/dL 83-110 Above high normal [facility] ([facility] ID Date Data Source [id number] 10/15/2020 04:34:00 PM EDT [facility] ([facility] Name Value Range Interpretation Code Description Data Leona rce(s) Supporting Document(s) Glucose [Mass/volume] in Capillary blood by Glucometer 159 mg/dL 83-110 Above high normal [facility] ([facility] ID Date Data Source [id number] 10/15/2020 03:12:00 PM EDT [facility] ([facility] Name Value Range Interpretation Code Description Data Leona rce(s) Supporting Document(s) Glucose [Mass/volume] in Capillary blood by Glucometer 43 mg/dL 83-110 Below low normal [facility] ([facility] ) ID Date Data Source [id number] 10/15/2020 11:29:00 AM EDT [facility] ([facility] Name Value Range Interpretation Code Description Data Leona rce(s) Supporting Document(s) Red Blood Count 5.45 10 4.00-5.40 Above high normal [facility] ([facility] White Blood Count 8.1 10 4.0-10.0 Normal (applies to non-numeri c results) [facility] ([facility] Hemoglobin 14.1 g/dL 12.0-15.5 Normal (applies to non-numeric resul ts) [facility] ([facility] Mean Corpuscular Volume 84.2 fl 80.0-96.0 Normal ( applies to non-numeric results) [facility] ([facility] ) Hematocrit 45.9 % 36.0-47.0 Normal (applies to non-numeric resul ts) [facility] ([facility] Red Cell Distribution Width 15.6 % 11.5-14.5 Above high normal [facility] ([facility] Mean Corpuscular Hemoglobin 25.9 pg 27.0-33.0 Below low normal [facility] ([facility] Mean Corpuscular HGB Conc 30.7 g/dL 32.0-36.5 Below low normal [facility] ([facility] Neutrophils % 51.4 % 36.0-66.0 Normal (applies to non-numeric re sults) [facility] ([facility] Platelet Count, Automated 350 10 150-450 Normal (applies to non-numeric results) [facility] ([facility] ) Lymph % 37.8 % 24.0-44.0 Normal (applies to non-numeric resul ts) [facility] ([facility] Union % 6.8 % 2.0-8.0 Normal (applies to non-numeric resul ts) [facility] ([facility] Eos % 3.2 % 0.0-3.0 Above high normal [facility] ([facility] Baso % 0.6 % 0.0-1.0 Normal (applies to non-numeric resul ts) [facility] ([facility] Immature Granulocyte % 0.2 % 0-3.0 Normal (applies to non-n umeric results) [facility] ([facility] Nucleated Red Blood Cell % 0.0 % 0-0 Normal (applies to n on-numeric results) [facility] ([facility] Neutrophils # 4.2 10 1.5-8.5 Normal (applies to non-numeric re sults) [facility] ([facility] Lymph # 3.1 10 1.5-5.0 Normal (applies to non-numeric resul ts) [facility] Union # 0.6 10 0.0-0.8 Normal (applies to non-numeric resul ts) [facility] ([facility] Eos # 0.3 10 0.0-0.5 Normal (applies to non-numeric resul ts) [facility] ([facility] Baso # 0.1 10 0.0-0.2 Normal (applies to non-numeric resul ts) [facility] ([facility] ID Date Data Source [id number] 10/15/2020 11:29:00 AM EDT [facility] Name Value Range Interpretation Code Description Data Leona rce(s) Supporting Document(s) CPK Creatine Phosphokinase 43 U/L 26-192 Roselia l (applies to non-numeric results) [facility] ([facility] ) CK-MB Value Mass Laboratory test result Normal ( applies to non-numeric results) [facility] ([facility] ) MB/CK Relative Index 2.33 Normal (applies to non-num ana rosa results) [facility] ([facility] <content>DIAGNOSIS CRITERIA</content>
<content>MMB ng/ml Relative Index (RI)</content>
<content>NON-AMI < or = 5 N/A</content>
<content>GIL ZONE > 5 < or = 4</content>
<content>AMI > 5 > 4</content>
<content></content> Troponin I Laboratory test result Normal (applies to non-n umeric results) [facility] ([facility] <content>Troponin I Reference Interval f or Siemens [place] LOCI:</content>
<content></content>
<content>99th Percentile= 0.00-0.045 ng/ml</content>
<content></content>
<content>Risk Stratification:</content>
<content><= 0.10 ng/ml Decreased Risk for Adverse Clinical</content>
<content>Events.</content>
<content>0.10-1.50 ng/ml Increased Risk for Adverse Clinical</content>
<content>Events. Evaluation of additional</content>
<content>criterion and/or repeat testing in 2-6</content>
<content>hours is suggested to rule out myocardial</content>
<content>damage.</content>
<content>>= 1.50 ng/ml Indicative of Myocardial Injury.</content>
<content></content> ID Date Data Source [id number] 10/15/2020 11:29:00 AM EDT [facility] ([facility] Name Value Range Interpretation Code Description Data Leona rce(s) Supporting Document(s) Alt/SGPT 22 U/L 12-78 Normal (applies to non-numeric resul ts) [facility] ([facility] Ast/Sgot 12 U/L 7-37 Normal (applies to non-numeric resul ts) [facility] Alkaline Phosphatase 97 U/L 45-117 Normal (applies to non-num ana rosa results) [facility] ([facility] Bilirubin,Direct Laboratory test result 0.0-0.2 Normal ( applies to non-numeric results) [facility] ([facility] ) Total Protein 6.9 GM/DL 6.4-8.2 Normal (applies to non-numeric re sults) [facility] ([facility] Bilirubin,Total 0.2 mg/dL 0.2-1.0 Normal (applies to non-numeric results) [facility] ([facility] Albumin/Globulin Ratio 1.0 1.2-2.2 Below low normal [facility] Albumin 3.5 GM/DL 3.2-5.2 Normal (applies to non-numeric resul ts) [facility] ([facility] ID Date Data Source [id number] 10/15/2020 11:29:00 AM EDT SHANNA[facility] ([facility] Name Value Range Interpretation Code Description Data Leona rce(s) Supporting Document(s) Glucose, Fasting 44 mg/dL 70-100 Below low normal [facility] ([facility] Creatinine For GFR 0.65 mg/dL 0.55-1.30 Normal (applies to non -numeric results) [facility] ([facility] Blood Urea Nitrogen 14 mg/dL 7-18 Normal (applies to non-nume samantha results) [facility] ([facility] Glomerular Filtration Rate Laboratory test result Normal (applies to non- numeric results) [facility] <content>Units are mL/min/1.73 m2</content>
<content></content>
<content>Chronic Kidney Disease Staging per NKF:</content>
<content></content>
<content>Stage I & II GFR >=60 Normal to Mildly Decreased</content>
<content>Stage III GFR 30- 59 Moderately Decreased</content>
<content>Stage IV GFR 15-29 Severely Decreased</content>
<content>Stage V GFR <15 Very Little GFR Left</content>
<content>ESRD GFR <15 on RISK CONTROL SPECIALIST</content>
<content></content> Potassium Serum 4.3 meq/L 3.5-5.1 Normal (applies to non-numeric results) [facility] ([facility] Chloride Level 111 meq/L 98-107 Above high normal [facility] ([facility] Sodium Level 142 meq/L 136-145 Normal (applies to non-numeric res ults) [facility] ([facility] Carbon Dioxide Level 26 meq/L 21-32 Normal (applies to non-num ana rosa results) [facility] ([facility] Anion Gap 5 meq/L 8-16 Below low normal [facility] ( [facility] Calcium Level 9.2 mg/dL 8.8-10.2 Normal (applies to non-numeric re sults) [facility] ([facility] ID Date Data Source [id number] 10/15/2020 11:29:00 AM EDT [facility] ([facility] Name Value Range Interpretation Code Description Data Leona rce(s) Supporting Document(s) Osmolality of Serum or Plasma 290 MOSM/KG 280-301 No rmal (applies to non-numeric results) [facility] ([facility] ) Thyrotropin [Units/volume] in Serum or Plasma 2.430 uIU/ML 0. 358-3.740 Normal (applies to non-numeric results) [facility] ([facility] ID Date Data Source [id number] 10/13/2020 06:30:00 PM EDT [facility] ([facility] Name Value Range Interpretation [...] mg/dL 4 .5-5.3 Below low normal [facility] ([facility] ) Laboratory test finding (navigational concept) 141 meq/L 1 36-145 Normal (applies to non-numeric results) [facility] ([facility] Laboratory test finding (navigational concept) 3.8 meq/L 3 .5-5.1 Normal (applies to non-numeric results) [facility] ([facility] Laboratory test finding (navigational concept) 24.0 MM/L 2 3.0-27.0 Normal (applies to non-numeric results) [facility] Laboratory test finding (navigational concept) 104 meq/L 9 8-109 Normal (applies to non-numeric results) [facility] ([facility] Laboratory test finding (navigational concept) 28 mg/dL 8-26 Above high normal [facility] ([facility] Laboratory test finding (navigational concept) 0.9 mg/dL 0 .6-1.3 Normal (applies to non-numeric results) [facility] ([facility] ID Date Data Source [id number] 10/10/2020 10:10:00 AM EDT [facility] ([facility] Name Value Range Interpretation Code Description Data Leona rce(s) Supporting Document(s) Glucometer-[facility] 214 mg/dL 65-109 Above high normal [facility] ([facility] ID Date Data Source [id number] 10/05/2020 08:30:00 PM EDT [facility] Name Value Range Interpretation Code Description Data Leona rce(s) Supporting Document(s) SARS coronavirus 2 RNA [Presence] in Res piratory specimen by DANIELA with probe detection NEGATIVE [facility] This lab was ordered by [facility] a nd reported by [facility]. ID Date Data Source [id number] 10/03/2020 04:34:00 PM EDT [facility] Name Value Range Interpretation Code Description Data Leona rce(s) Supporting Document(s) SARS coronavirus 2 RNA [Presence] in Res piratory specimen by DANIELA with probe detection NEGATIVE [facility] This lab was ordered by [facility] a nd reported by [facility]. ID Date Data Source [id number] 10/03/2020 04:14:00 PM EDT [facility] ([facility] Name Value Range Interpretation Code Description Data Leona rce(s) Supporting Document(s) Glucose [Mass/volume] in Capillary blood by Glucometer 217 mg/dL 83-110 Above high normal [facility] ([facility] ID Date Data Source [id number] 10/03/2020 02:57:00 PM EDT [facility] ([facility] Name Value Range Interpretation Code Description Data Leona rce(s) Supporting Document(s) Glucose [Mass/volume] in Capillary blood by Glucometer 77 mg/dL 83-110 Below low normal [facility] ([facility] ID Date Data Source [id number] 10/03/2020 02:21:00 PM EDT [facility] ([facility] Name Value Range Interpretation Code Description Data Leona rce(s) Supporting Document(s) Glucose [Mass/volume] in Capillary blood by Glucometer 31 mg/dL 83-110 Below lower panic limits [facility] ([facility] ) ID Date Data Source [id number] 10/03/2020 11:15:00 AM EDT [facility] ([facility] Name Value Range Interpretation Code Description Data Leona rce(s) Supporting Document(s) Venous Partial Pressure Co2 44.2 mmHg 38.0-50.0 Norm al (applies to non-numeric results) [facility] ([facility] ) Venous PH 7.375 units 7.330-7.430 Normal (applies to non-numeric res ults) [facility] ([facility] Venous Partial Pressure O2 41.4 mmHg 30.0-50.0 Roselia l (applies to non-numeric results) [facility] ([facility] Venous Total Co2 26.6 meq/L 24.0-28.0 Normal (applies to non-numeric results) [facility] ([facility] Venous Hco3 25.3 meq/L 23.0-27.0 Normal (applies to non-numeric resu lts) [facility] ([facility] Venous Base Excess -0.2 Normal (applies to non-numer ic results) [facility] ([facility] Venous Standard Hco3 23.9 meq/L Normal (applies to non-num ana rosa results) [facility] ([facility] Venous O2 Saturation 77.9 % 60.0-80.0 Normal (applies to non-num ana rosa results) [facility] ([facility] ID Date Data Source [id number] 10/03/2020 10:59:00 AM EDT [facility] ([facility] Name Value Range Interpretation Code Description Data Leona rce(s) Supporting Document(s) Thyrotropin [Units/volume] in Serum or Plasma 2.440 uIU/ML 0. 358-3.740 Normal (applies to non-numeric results) [facility] ([facility] Magnesium [Mass/volume] in Serum or Plasma 2.2 mg/dL 1.8-2 .4 Normal (applies to non-numeric results) [facility] ([facility]) ID Date Data Source [id number] 10/03/2020 10:59:00 AM EDT [facility] ([facility] Name Value Range Interpretation Code Description Data Leona rce(s) Supporting Document(s) Glucose, Fasting 58 mg/dL 70-100 Below low normal [facility] ([facility] Creatinine For GFR 0.59 mg/dL 0.55-1.30 Normal (applies to non -numeric results) [facility] ([facility] Blood Urea Nitrogen 16 mg/dL 7-18 Normal (applies to non-nume samantha results) [facility] ([facility] Glomerular Filtration Rate Laboratory test result Normal (applies to non- numeric results) [facility] <content>Units are mL/min/1.73 m2</content>
<content></content>
<content>Chronic Kidney Disease Staging per NKF:</content>
<content></content>
<content>Stage I & II GFR >=60 Normal to Mildly Decreased</content>
<content>Stage III GFR 30- 59 Moderately Decreased</content>
<content>Stage IV GFR 15-29 Severely Decreased</content>
<content>Stage V GFR <15 Very Little GFR Left</content>
<content>ESRD GFR <15 on RISK CONTROL SPECIALIST</content>
<content></content> Sodium Level 143 meq/L 136-145 Normal (applies to non-numeric res ults) [facility] ([facility] Potassium Serum 4.0 meq/L 3.5-5.1 Normal (applies to non-numeric results) [facility] ([facility] Chloride Level 111 meq/L 98-107 Above high normal [facility] ([facility] Carbon Dioxide Level 30 meq/L 21-32 Normal (applies to non-num ana rosa results) [facility] ([facility] Calcium Level 8.9 mg/dL 8.8-10.2 Normal (applies to non-numeric re sults) [facility] ([facility] Anion Gap 2 meq/L 8-16 Below low normal [facility] ( [facility] ID Date Data Source [id number] 10/03/2020 10:59:00 AM EDT [facility] ([facility] Name Value Range Interpretation Code Description Data Leona rce(s) Supporting Document(s) CPK Creatine Phosphokinase 77 U/L 26-192 Roselia l (applies to non-numeric results) [facility] CK-MB Value Mass 1.5 ng/mL Normal (applies to non-numeric results) [facility] ([facility] MB/CK Relative Index 1.95 Normal (applies to non-num ana rosa results) [facility] <content>DIAGNOSIS CRITERIA</content>
<content>MMB ng/ml Relative Index (RI)</content>
<content>NON-AMI < or = 5 N/A</content>
<content>GIL ZONE > 5 < or = 4</content>
<content>AMI > 5 > 4</content>
<content></content> Troponin I Laboratory test result Normal (applies to non-n umeric results) [facility] ([facility] <content>Troponin I Reference Interval f or Siemens [place] LOCI:</content>
<content></content>
<content>99th Percentile= 0.00-0.045 ng/ml</content>
<content></content>
<content>Risk Stratification:</content>
<content><= 0.10 ng/ml Decreased Risk for Adverse Clinical</content>
<content>Events.</content>
<content>0.10-1.50 ng/ml Increased Risk for Adverse Clinical</content>
<content>Events. Evaluation of additional</content>
<content>criterion and/or repeat testing in 2-6</content>
<content>hours is suggested to rule out myocardial</content>
<content>damage.</content>
<content>>= 1.50 ng/ml Indicative of Myocardial Injury.</content>
<content></content> ID Date Data Source [id number] 10/03/2020 10:59:00 AM EDT [facility] ([facility] Name Value Range Interpretation Code Description Data Leona rce(s) Supporting Document(s) White Blood Count 7.5 10 4.0-10.0 Normal (applies to non-numeri c results) [facility] ([facility] Red Blood Count 5.02 10 4.00-5.40 Normal (applies to non-numeric results) [facility] ([facility] Hemoglobin 13.0 g/dL 12.0-15.5 Normal (applies to non-numeric resul ts) [facility] ([facility] Hematocrit 43.5 % 36.0-47.0 Normal (applies to non-numeric resul ts) [facility] ([facility] [facility] Mean Corpuscular Volume 86.7 fl 80.0-96.0 Normal ( applies to non-numeric results) [facility] ([facility] ) Mean Corpuscular Hemoglobin 25.9 pg 27.0-33.0 Below low normal [facility] ([facility] Mean Corpuscular HGB Conc 29.9 g/dL 32.0-36.5 Below low normal [facility] ([facility] Platelet Count, Automated 279 10 150-450 Normal (applies to non-numeric results) [facility] ([facility] ) Neutrophils % 60.9 % 36.0-66.0 Normal (applies to non-numeric re sults) [facility] ([facility] Red Cell Distribution Width 15.3 % 11.5-14.5 Above high normal [facility] ([facility] Lymph % 30.2 % 24.0-44.0 Normal (applies to non-numeric resul ts) [facility] ([facility] Union % 6.3 % 2.0-8.0 Normal (applies to non-numeric resul ts) [facility] ([facility] Immature Granulocyte % 0.3 % 0-3.0 Normal (applies to non-n umeric results) [facility] ([facility] Baso % 0.7 [...] [facility] ([facility] Lymph # 2.3 10 1.5-5.0 Normal (applies to non-numeric resul ts) [facility] ([facility] Union # 0.5 10 0.0-0.8 Normal (applies to non-numeric resul ts) [facility] ([facility] Eos # 0.1 10 0.0-0.5 Normal (applies to non-numeric resul ts) [facility] ([facility] Baso # 0.1 10 0.0-0.2 Normal (applies to non-numeric resul ts) [facility] ([facility] ID Date Data Source [id number] 09/16/2020 03:14:00 PM EDT [facility] ([facility] Name Value Range Interpretation Code Description Data Leona rce(s) Supporting Document(s) RBC 4.78 10E6/uL 4.20-6.30 [facility] ([facility] NORMAL RANGES Age WBC [...] HCT IS 5% LESS SOURCE FOR DATA: [employer] 1800 OPERATION MANUAL( AUTOMATED BLOOD COUNTS AND [...] >32 mL/min Normal WBC 7.5 10E3/uL 4.1-10.9 [facility] NORMAL RANGES Age WBC RBC HGB [...] HCT IS 5% LESS SOURCE FOR DATA: [employer] 1800 OPERATION MANUAL( AUTOMATED BLOOD COUNTS AND [...] Normal HGB 12.8 g/dL 12.0-18.0 [facility] NORMAL RANGES Age WBC RBC [...] HCT IS 5% LESS SOURCE FOR DATA: [employer] 1800 OPERATION MANUAL( AUTOMATED BLOOD COUNTS AND [...] Normal MCH 26.8 pg 26.0-32.0 [facility] ([facility] [...] >32 mL/min Normal HCT 42.1 % 37.0-51.0 [facility] NORMAL RANGES Age [...] HCT IS 5% LESS SOURCE FOR DATA: [employer] 1800 OPERATION MANUAL( AUTOMATED BLOOD COUNTS AND [...] Normal MCV 88.1 fL 80.0-97.0 [facility] ([facility] [...] HCT IS 5% LESS SOURCE FOR DATA: [employer] 1800 OPERATION MANUAL( AUTOMATED BLOOD COUNTS AND [...] Normal PLT 325 10E3/uL 140-440 [facility] ([facility] NORMAL RANGES Age WBC RBC [...] HCT IS 5% LESS SOURCE FOR DATA: [employer] 1800 OPERATION MANUAL( AUTOMATED BLOOD COUNTS AND [...] MCHC 30.4 g/dL 31.0-36.0 Below low normal [facility] ( [facility] NORMAL [...] HCT IS 5% LESS SOURCE FOR DATA: [employer] 1800 OPERATION MANUAL( AUTOMATED BLOOD COUNTS AND [...] HCT IS 5% LESS SOURCE FOR DATA: [employer] 1800 OPERATION MANUAL( AUTOMATED BLOOD COUNTS AND [...] Normal Lym% 24.4 % 10.0-58.5 [facility] ([facility] [...] HCT IS 5% LESS SOURCE FOR DATA: [employer] 1800 OPERATION MANUAL( AUTOMATED BLOOD COUNTS AND [...] % 11.5-14.5 Above high normal [facility] ([facility] NORMAL RANGES Age [...] HCT IS 5% LESS SOURCE FOR DATA: [employer] 1800 OPERATION MANUAL( AUTOMATED BLOOD COUNTS AND [...] Normal MXD% 6.3 % 0.1-24.0 [facility] ([facility] NORMAL RANGES Age WBC [...] HCT IS 5% LESS SOURCE FOR DATA: [employer] 1800 OPERATION MANUAL( AUTOMATED BLOOD COUNTS AND [...] >32 mL/min Normal Lym# 1.8 10E3/uL 0.6-4.1 [facility] ([facility] NORMAL RANGES Age WBC RBC [...] Normal MXD# 0.5 10E3/uL 0.0-1.8 [facility] ([facility] NORMAL RANGES Age WBC RBC HGB [...] HCT IS 5% LESS SOURCE FOR DATA: [employer] 1800 OPERATION MANUAL( AUTOMATED BLOOD COUNTS AND [...] Normal Neut# 5.2 % 2.0-7.8 [facility] ([facility] NORMAL RANGES [...] HCT IS 5% LESS SOURCE FOR DATA: [employer] 1800 OPERATION MANUAL( AUTOMATED BLOOD COUNTS AND [...] >32 mL/min Normal MPV 11.9 fL 9.0-13.0 [facility] ([facility] NORMAL [...] HCT IS 5% LESS SOURCE FOR DATA: [employer] 1800 OPERATION MANUAL( AUTOMATED BLOOD COUNTS AND [...] >32 mL/min Normal ID Date Data Source [id number] 09/16/2020 03:14:00 PM EDT [facility] ([facility] Name Value Range Interpretation Code Description Data Leona rce(s) Supporting Document(s) Glu 170 mg/dL 70-110 Above high normal [facility] ([facility] NORMAL RANGES Age [...] HCT IS 5% LESS SOURCE FOR DATA: [employer] 1800 OPERATION MANUAL( AUTOMATED BLOOD COUNTS AND [...] >32 mL/min Normal Creat 0.9 mg/dL 0.5-1.0 [facility] ([facility] [...] HCT IS 5% LESS SOURCE FOR DATA: [employer] 1800 OPERATION MANUAL( AUTOMATED BLOOD COUNTS AND [...] above >32 mL/min Normal BUN 18 mg/dL 8 [facility] ([facility] NORMAL RANGES Age WBC RBC [...] HCT IS 5% LESS SOURCE FOR DATA: [employer] 1800 OPERATION MANUAL( AUTOMATED BLOOD COUNTS AND [...] mL/min Normal K 4.5 mmol/L 3.5-5.1 [facility] ([facility] NORMAL RANGES Age WBC RBC HGB [...] HCT IS 5% LESS SOURCE FOR DATA: [employer] 1800 OPERATION MANUAL( AUTOMATED BLOOD COUNTS AND [...] >32 mL/min Normal Na 139 mmol/L 136-145 [facility] ([facility] NORMAL RANGES Age WBC RBC [...] HCT IS 5% LESS SOURCE FOR DATA: [employer] 1800 OPERATION MANUAL( AUTOMATED BLOOD COUNTS AND [...] >32 mL/min Normal BUN/Creatinine Ratio 21.5 CALC [employer] ([facility] NORMAL RANGES Age WBC RBC [...] Normal CL 103.6 mmol/L 98.0-107.0 [facility] ([facility] NORMAL RANGES Age WBC RBC [...] HCT IS 5% LESS SOURCE FOR DATA: [employer] 1800 OPERATION MANUAL( AUTOMATED BLOOD COUNTS AND [...] HCT IS 5% LESS SOURCE FOR DATA: [employer] 1800 OPERATION MANUAL( AUTOMATED BLOOD COUNTS AND [...] >32 mL/min Normal Alb 4.2 g/dL 3.4-4.8 [facility] NORMAL RANGES Age WBC RBC [...] HCT IS 5% LESS SOURCE FOR DATA: [employer] 1800 OPERATION MANUAL( AUTOMATED BLOOD COUNTS AND [...] TP 6.4 g/dL 6.6-8.7 Below low normal [facility] ( [facility] NORMAL [...] HCT IS 5% LESS SOURCE FOR DATA: [employer] 1800 OPERATION MANUAL( AUTOMATED BLOOD COUNTS AND [...] >32 mL/min Normal CA 9.7 mg/dL 8.6-10.2 [facility] ([facility], [...] HCT IS 5% LESS SOURCE FOR DATA: [employer] 1800 OPERATION MANUAL( AUTOMATED BLOOD COUNTS AND [...] >32 mL/min Normal Globulin 2.2 CALC [facility] ([facility], [...] HCT IS 5% LESS SOURCE FOR DATA: [employer] 1800 OPERATION MANUAL( AUTOMATED BLOOD COUNTS AND [...] Normal Alp 99.2 U/L 35-129 [facility] ([facility] [...] HCT IS 5% LESS SOURCE FOR DATA: [employer] 1800 OPERATION MANUAL( AUTOMATED BLOOD COUNTS AND [...] >32 mL/min Normal A/G Ratio 1.9 CALC [facility] ([facility] NORMAL RANGES Age WBC RBC [...] HCT IS 5% LESS SOURCE FOR DATA: [employer] 1800 OPERATION MANUAL( AUTOMATED BLOOD COUNTS AND [...] Normal Tbili 0.16 mg/dL 0.0-1.2 [facility] ([facility] NORMAL RANGES Age WBC RBC [...] Alt (SGPT) 12 U/L 0-41 [facility] ([facility] NORMAL RANGES Age WBC RBC [...] HCT IS 5% LESS SOURCE FOR DATA: [employer] 1800 OPERATION MANUAL( AUTOMATED BLOOD COUNTS AND [...] mL/min Normal Ast (Sgot) 12 U/L 0-40 [facility] NORMAL RANGES Age WBC RBC [...] HCT IS 5% LESS SOURCE FOR DATA: [employer] 1800 OPERATION MANUAL( AUTOMATED BLOOD COUNTS AND [...] HCT IS 5% LESS SOURCE FOR DATA: [employer] 1800 OPERATION MANUAL( AUTOMATED BLOOD COUNTS AND [...] Normal Anion Gap 19 mmol/L [facility] ([facility] NORMAL RANGES Age WBC RBC [...] HCT IS 5% LESS SOURCE FOR DATA: [employer] 1800 OPERATION MANUAL( AUTOMATED BLOOD COUNTS AND [...] HCT IS 5% LESS SOURCE FOR DATA: [place] DYN 1800 OPERATION MANUAL( AUTOMATED BLOOD COUNTS [...] and above >32 mL/min Normal eGFR Non-Afr. Montenegrin 65 # [facility] ([facility] [...] HCT IS 5% LESS SOURCE FOR DATA: [employer] 1800 OPERATION MANUAL( AUTOMATED BLOOD COUNTS AND [...] >32 mL/min Normal ID Date Data Source [id number] 09/16/2020 03:14:00 PM EDT [facility] ([facility] Name Value Range Interpretation Code Description Data Leona rce(s) Supporting Document(s) Hemoglobin A1c/Hemoglobin.total in Blood 6.5 % 4.8-5.6 Above high normal [facility] ([facility] <content>Prediabetes: 5.7 - 6.4</content >
<content>Diabetes: >6.4</content>
<content>Glycemic control for adults with diabetes: <7.0</content>
<content></content> ID Date Data Source [id number] 09/11/2020 10:43:00 AM EDT [facility] ([facility]) Name Value Range Interpretation Code Description Data Leona rce(s) Supporting Document(s) Hemoglobin A1c/Hemoglobin.total in Blood 153 [facility] ([facility]) Glucose [Mass/volume] in Serum or Plasma Laboratory test result [facility] ([facility]) ID Date Data Source [id number] 07/13/2020 05:07:00 PM EDT [facility] ([facility] Name Value Range Interpretation Code Description Data Leona rce(s) Supporting Document(s) Glucose [Mass/volume] in Capillary blood by Glucometer 177 mg/dL 83-110 Above high normal [facility] ([facility] ) Doctor Notified ID Date Data Source [id number] 07/13/2020 05:07:00 PM EDT [facility] ([facility]) Name Value Range Interpretation Code Description Data Leona rce(s) Supporting Document(s) Glucose [Mass/volume] in Capillary blood by Glucometer 177 83- 110 [facility] ([facility]) ID Date Data Source [id number] 07/13/2020 03:33:00 PM EDT [facility] ([facility] Name Value Range Interpretation Code Description Data Leona rce(s) Supporting Document(s) Laboratory test finding (navigational concept) 229 mg/dL 7 0-105 Above high normal [facility] ([facility] ) Laboratory test finding (navigational concept) 35.0 % 3 8.0-51.0 Below low normal [facility] ([facility] ) Laboratory test finding (navigational concept) 138 meq/L 1 36-145 Normal (applies to non-numeric results) [facility] ([facility] Laboratory test finding (navigational concept) 4.3 meq/L 3 .5-5.1 Normal (applies to non-numeric results) [facility] ([facility] Laboratory test finding (navigational concept) 4.7 mg/dL 4 .5-5.3 Normal (applies to non-numeric results) [facility] ([facility] Laboratory test finding (navigational concept) 100 meq/L 9 8-109 Normal (applies to non-numeric results) [facility] ([facility] Laboratory test finding (navigational concept) 31.0 MM/L 2 3.0-27.0 Above high normal [facility] ([facility] ) Laboratory test finding (navigational concept) 26 mg/dL 8 -26 Normal (applies to non-numeric results) [facility] ([facility]) Laboratory test finding (navigational concept) 1.6 mg/dL 0 .6-1.3 Above high normal [facility] ([facility] ) ID Date Data Source [id number] 07/13/2020 03:33:00 PM EDT [facility] ([facility]) Name Value Range Interpretation Code Description Data Leona rce(s) Supporting Document(s) Sodium [Moles/volume] in Blood 138 136-145 [facility] ([facility] ID Date Data Source [id number] 07/13/2020 03:33:00 PM EDT [facility] ([facility] Name Value Range Interpretation Code Description Data Leona rce(s) Supporting Document(s) Chloride [Moles/volume] in Blood 100 98-109 [facility] ([facility] ) ID Date Data Source [id number] 07/13/2020 03:33:00 PM EDT [facility] ([facility] Name Value Range Interpretation Code Description Data Leona rce(s) Supporting Document(s) Potassium [Moles/volume] in Blood 4.3 3.5-5.1 [facility] ([facility] ) ID Date Data Source [id number] 07/13/2020 03:33:00 PM EDT [facility] ([facility]) Name Value Range Interpretation Code Description Data Leona rce(s) Supporting Document(s) Glucose [Mass/volume] in Blood 229 70-105 [facility] ([facility]) ID Date Data Source [id number] 07/13/2020 03:33:00 PM EDT [facility] ([facility]) Name Value Range Interpretation Code Description Data Leona rce(s) Supporting Document(s) Calcium.ionized [Moles/volume] in Blood 4.7 4.5-5.3 [facility] ([facility]) ID Date Data Source [id number] 07/13/2020 03:33:00 PM EDT [facility] ([facility]) Name Value Range Interpretation Code Description Data Leona rce(s) Supporting Document(s) Carbon dioxide, total [Moles/volume] in Blood 31.0 23.0-27.0 [facility] ([facility]) ID Date Data Source [id number] 07/13/2020 03:33:00 PM EDT [facility] ([facility]) Name Value Range Interpretation Code Description Data Leona rce(s) Supporting Document(s) Urea nitrogen [Mass/volume] in Blood 26 8-26 [facility] ([facility]) ID Date Data Source [id number] 07/13/2020 03:33:00 PM EDT [facility] ([facility]) Name Value Range Interpretation Code Description Data Leona rce(s) Supporting Document(s) Creatinine [Mass/volume] in Blood 1.6 0.6-1.3 [facility] ([facility]) ID Date Data Source [id number] 07/13/2020 03:33:00 PM EDT [facility] ([facility]) Name Value Range Interpretation Code Description Data Leona rce(s) Supporting Document(s) Laboratory test finding (navigational concept) 35.0 % 38.0-51.0 [facility] ([facility]) Laboratory test finding (navigational concept) 229 mg/dL 70-105 [facility] ([facility]) Laboratory test finding (navigational concept) 138 meq/L 136-145 [facility] ([facility]) Laboratory test finding (navigational concept) 4.3 meq/L 3.5-5.1 [facility] ([facility]) Laboratory test finding (navigational concept) 4.7 mg/dL 4.5-5.3 [facility] ([facility]) Laboratory test finding (navigational concept) 100 meq/L 98-109 [facility] ([facility]) Laboratory test finding (navigational concept) 31.0 MM/L 23.0-27.0 [facility] ([facility]) Laboratory test finding (navigational concept) 26 mg/dL 8-26 [facility] ([facility]) Creatinine [Mass/volume] in Serum or Plasma 1.6 mg/dL 0.6-1.3 [facility] ([facility]) ID Date Data Source [id number] 07/13/2020 03:33:00 PM EDT [facility] ([facility]) Name Value Range Interpretation Code Description Data Leona rce(s) Supporting Document(s) Hematocrit [Volume Fraction] of Blood 35.0 38.0-51.0 [facility] ([facility]) ID Date Data Source [id number] 07/13/2020 03:12:00 PM EDT [facility] ([facility] Name Value Range Interpretation Code Description Data Leona rce(s) Supporting Document(s) Glucose [Mass/volume] in Capillary blood by Glucometer 245 mg/dL 83-110 Above high normal [facility] ([facility] ) ID Date Data Source [id number] 07/13/2020 03:12:00 PM EDT [facility] ([facility]) Name Value Range Interpretation Code Description Data Leona rce(s) Supporting Document(s) Glucose [Mass/volume] in Capillary blood by Glucometer 245 mg/dL 83- 110 [facility] ([facility]) ID Date Data Source [id number] 07/05/2020 01:38:00 PM EDT [facility] ([facility] Name Value Range Interpretation Code Description Data Leona rce(s) Supporting Document(s) Amphetamines Level Urine Laboratory test result Normal (applies to non-numeric results) [facility] ([facility] ) Benzodiazepines Urine Laboratory test result Nor mal (applies to non-numeric results) [facility] ([facility] ) Barbiturates Urine Laboratory test result Normal (applies to non-numeric results) [facility] ([facility] Methadone Urine Laboratory test result Normal (a pplies to non-numeric results) [facility] ([facility] ) Cannabinoids Urine Laboratory test result Normal (applies to non-numeric results) [facility] ([facility] ) Cocaine Metabolite Urine Laboratory test result Normal (applies to non-numeric results) [facility] ) Phencyclidine Urine Laboratory test result Roselia l (applies to non-numeric results) [facility] ([facility] ) ALL PRESUMPTIVE POSITIVE FINDINGS AR [...] CLOSELY RELATED COMPOUNDS PLEASE CALL THE LAB. Opiates Urine Laboratory test result Normal (applies t o non-numeric results) [facility] ID Date Data Source [id number] 07/05/2020 01:38:00 PM EDT [facility] ([facility] Name Value Range Interpretation Code Description Data Leona rce(s) Supporting Document(s) Appearance, Urine RFX Laboratory test result Nor mal (applies to non-numeric results) [facility] ([facility] ) Color, Urine RFX Laboratory test result Normal ( applies to non-numeric results) [facility] ([facility] ) PH,Urine RFX 6.0 units 5.0-9.0 Normal (applies to non-numeric res ults) [facility] ([facility] Protein, Urine Auto RFX Laboratory test result N ormal (applies to non-numeric results) [facility] ([facility] ) Specific [place] Ur Auto RFX 1.006 1.002-1.035 Nor mal (applies to non-numeric results) [facility] ([facility] ) Glucose, Urine (Ua) Auto RFX Laboratory test result Above high normal [facility] ([facility] Urobilinogen, Urine Auto RFX 0.2 mg/dL 0.0-2.0 Nor mal (applies to non-numeric results) [facility] ([facility] ) Ketone, Urine Auto RFX Laboratory test result No rmal (applies to non-numeric results) [facility] ([facility] ) Nitrite, Urine Auto RFX Laboratory test result N ormal (applies to non-numeric results) [facility] ([facility] ) Bilirubin, Urine Auto RFX Laboratory test result Normal (applies to non- numeric results) [facility] ([facility] ) Leukocyte Esterase Ur Auto RFX Laboratory test result Normal (applies to non- numeric results) [facility] ([facility] ) Blood, Urine Blood RFX Laboratory test result Above high n ormal [facility] ([facility] Bacteria, Urine Auto RFX Laboratory test result Normal (applies to non-numeric results) [facility] ([facility] ) RBC, Urine Auto RFX 3 /HPF 0-3 Normal (applies to non-nume samantha results) [facility] ([facility] WBC, Urine Auto RFX 0 /HPF 0-3 Normal (applies to non-nume samantha results) [facility] ([facility] Hyaline Cast, Urine Auto RFX 0 /LPF 0-1 Normal (appl ies to non-numeric results) [facility] ([facility] Squam Epithelial Cell Ur Aurfx 0 /HPF 0-6 N ormal (applies to non-numeric results) [facility] ([facility] ) ID Date Data Source [id number] 07/05/2020 01:38:00 PM EDT [facility] ([facility] Name Value Range Interpretation Code Description Data Leona rce(s) Supporting Document(s) Phencyclidine [Presence] in Urine by Screen method Laboratory test re sult [facility] ([facility] ) ID Date Data Source [id number] 07/05/2020 01:38:00 PM EDT [facility] ([facility] Name Value Range Interpretation Code Description Data Leona rce(s) Supporting Document(s) Opiates [Presence] in Urine by Screen method Laboratory test result [facility] ([facility] ) ID Date Data Source [id number] 07/05/2020 01:38:00 PM EDT [facility] ([facility] Name Value Range Interpretation Code Description Data Leona rce(s) Supporting Document(s) Methadone [Presence] in Urine by Screen method Laboratory test result [facility] ([facility]) ID Date Data Source [id number] 07/05/2020 01:38:00 PM EDT [facility] ([facility]) Name Value Range Interpretation Code Description Data Leona rce(s) Supporting Document(s) Benzoylecgonine [Presence] in Urine by Screen method Laboratory rene t result [facility] ([facility]) ID Date Data Source [id number] 07/05/2020 01:38:00 PM EDT [facility] ([facility]) Name Value Range Interpretation Code Description Data Leona rce(s) Supporting Document(s) Cannabinoids [Presence] in Urine by Screen method Laboratory test res ult [facility] ([facility]) ID Date Data Source [id number] 07/05/2020 01:38:00 PM EDT [facility] ([facility]) Name Value Range Interpretation Code Description Data Leona rce(s) Supporting Document(s) Benzodiazepines [Presence] in Urine by Screen method Laboratory rene t result [facility] ([facility]) ID Date Data Source [id number] 07/05/2020 01:38:00 PM EDT [facility] ([facility]) Name Value Range Interpretation Code Description Data Leona rce(s) Supporting Document(s) Barbiturates [Presence] in Urine by Screen method Laboratory test res ult [facility] ([facility]) ID Date Data Source [id number] 07/05/2020 01:38:00 PM EDT [facility] ([facility]) Name Value Range Interpretation Code Description Data Leona rce(s) Supporting Document(s) Amphetamines [Presence] in Urine by Screen method Laboratory test res ult [facility] ([facility]) ID Date Data Source [id number] 07/05/2020 01:38:00 PM EDT [facility] ([facility]) Name Value Range Interpretation Code Description Data Leona rce(s) Supporting Document(s) Urine Hyaline Casts (Auto) 0 0-1 [facility] ([facility]) ID Date Data Source [id number] 07/05/2020 01:38:00 PM EDT [facility] ([facility]) Name Value Range Interpretation Code Description Data Leona rce(s) Supporting Document(s) Urine Color Laboratory test result MEDEN T ([facility] ) Urine Appearance Laboratory test result [facility] ([facility]) pH of Urine 6.0 5.0-9.0 [facility] ([facility] ) Urine Specific [place] 1.006 1.002-1.035 M EDENT ([facility]) Urine Protein Laboratory test result [facility] ([facility]) Urine Glucose (Ua) Laboratory test result [facility] ([facility]) Urine Ketones Laboratory test result [facility] ([facility]) Urine Bilirubin Laboratory test result [facility] ([facility]) Urine Urobilinogen 0.2 0.0-2.0 [facility] ([facility] ) Urine Nitrite Laboratory test result [facility] ([facility]) Urine Leukocyte Esterase Laboratory test result [facility] ([facility]) Urine WBC (Auto) 0 0-3 [facility] ([facility]) Urine Blood Laboratory test result MEDEN T ([facility]) Urine RBC (Auto) 3 0-3 [facility] ([facility]) Urine Bacteria (Auto) Laboratory test result [facility] ([facility]) Urine Squamous Epithelial Cells 0 0-6 [facility] ([facility]) ID Date Data Source [id number] 07/05/2020 12:42:00 PM EDT [facility] ([facility] Name Value Range Interpretation Code Description Data Leona rce(s) Supporting Document(s) Blood Culture Laboratory test [facility] No growth after [...] AFTER 5 DAYS ID Date Data Source [id number] 07/05/2020 12:42:00 PM EDT [facility] ([facility]) Name Value Range Interpretation Code Description Data Leona rce(s) Supporting Document(s) Bacteria identified in Blood by Culture Laboratory test result [facility] ([facility] ) ID Date Data Source [id number] 07/05/2020 12:41:00 PM EDT [facility] ([facility] Name Value Range Interpretation Code Description Data Leona rce(s) Supporting Document(s) Blood Culture Laboratory test result [facility] ([facility] No growth after [...] AFTER 5 DAYS ID Date Data Source [id number] 07/05/2020 12:41:00 PM EDT [facility] ([facility] Name Value Range Interpretation Code Description Data Leona rce(s) Supporting Document(s) Thyrotropin [Units/volume] in Serum or Plasma 7.580 uIU/ML 0. 358-3.740 Above high normal [facility] ([facility] ) ID Date Data Source [id number] 07/05/2020 12:41:00 PM EDT [facility] ([facility] Name Value Range Interpretation Code Description Data Leona rce(s) Supporting Document(s) Blood Urea Nitrogen 21 mg/dL 7-18 Above high normal [facility] ([facility] Creatinine For GFR 0.89 mg/dL 0.55-1.30 Normal (applies to non -numeric results) [facility] ([facility] Glucose, Fasting 113 mg/dL 70-100 Above high normal M [facility] ([facility] Sodium Level 139 meq/L 136-145 Normal (applies to non-numeric res ults) [facility] ([facility] Glomerular Filtration Rate Laboratory test result Normal (applies to non- numeric results) [facility] ([facility] ) <content>Units are mL/min/1.73 m2</content>
<content></content>
<content>Chronic Kidney Disease Staging per NKF:</content>
<content></content>
<content>Stage I & II GFR >=60 Normal to Mildly Decreased</content>
<content>Stage III GFR 30- 59 Moderately Decreased</content>
<content>Stage IV GFR 15-29 Severely Decreased</content>
<content>Stage V GFR <15 Very Little GFR Left</content>
<content>ESRD GFR <15 on RISK CONTROL SPECIALIST</content>
<content></content> Carbon Dioxide Level 29 meq/L 21-32 Normal (applies to non-num ana rosa results) [facility] ([facility] Potassium Serum 4.4 meq/L 3.5-5.1 Normal (applies to non-numeric results) [facility] ([facility] This specimen has an elevated potassium level but there is NO visible hemolysis noted. Chloride Level 106 meq/L 98-107 Normal (applies to non-numeric r esults) [facility] ([facility] Calcium Level 9.7 mg/dL 8.8-10.2 Normal (applies to non-numeric re sults) [facility] ([facility] Anion Gap 4 meq/L 8-16 Below low normal [facility] ( [facility] ID Date Data Source [id number] 07/05/2020 12:41:00 PM EDT [facility] ([facility] Name Value Range Interpretation Code Description Data Leona rce(s) Supporting Document(s) Ast/Sgot 16 U/L 7-37 Normal (applies to non-numeric resul ts) [facility] ([facility] Alt/SGPT 21 U/L 12-78 Normal (applies to non-numeric resul ts) [facility] ([facility] Alkaline Phosphatase 89 U/L 45-117 Normal (applies to non-num ana rosa results) [facility] ([facility] Bilirubin,Total 0.4 mg/dL 0.2-1.0 Normal (applies to non-numeric results) [facility] ([facility] Bilirubin,Direct Laboratory test result 0.0-0.2 Normal ( applies to non-numeric results) [facility] ([facility] ) Albumin 4.0 GM/DL 3.2-5.2 Normal (applies to non-numeric resul ts) [facility] ([facility] Albumin/Globulin Ratio 1.2 1.2-2.2 Normal (applies to non-n umeric results) [facility] ([facility] Total Protein 7.3 GM/DL 6.4-8.2 Normal (applies to non-numeric re sults) [facility] ([facility] ID Date Data Source [id number] 07/05/2020 12:41:00 PM EDT [facility] ([facility] Name Value Range Interpretation Code Description Data Leona rce(s) Supporting Document(s) CK-MB Value Mass 1.6 ng/mL Normal (applies to non-numeric results) [facility] ([facility] CPK Creatine Phosphokinase 90 U/L 26-192 Roselia l (applies to non-numeric results) [facility] ([facility] ) MB/CK Relative Index 1.78 Normal (applies to non-num ana rosa results) [facility] ([facility] <content>DIAGNOSIS CRITERIA</content>
<content>MMB ng/ml Relative Index (RI)</content>
<content>NON-AMI < or = 5 N/A</content>
<content>GIL ZONE > 5 < or = 4</content>
<content>AMI > 5 > 4</content>
<content></content> Troponin I Laboratory test result Normal (applies to non-n umeric results) [facility] ([facility] <content>Troponin I Reference Interval f or Siemens [place] LOCI:</content>
<content></content>
<content>99th Percentile= 0.00-0.045 ng/ml</content>
<content></content>
<content>Risk Stratification:</content>
<content><= 0.10 ng/ml Decreased Risk for Adverse Clinical</content>
<content>Events.</content>
<content>0.10-1.50 ng/ml Increased Risk for Adverse Clinical</content>
<content>Events. Evaluation of additional</content>
<content>criterion and/or repeat testing in 2-6</content>
<content>hours is suggested to rule out myocardial</content>
<content>damage.</content>
<content>>= 1.50 ng/ml Indicative of Myocardial Injury.</content>
<content></content> ID Date Data Source [id number] 07/05/2020 12:41:00 PM EDT [facility] ([facility] Name Value Range Interpretation Code Description Data Leona rce(s) Supporting Document(s) Ammonia [Mass/volume] in Blood 30 uMOL/L N ormal (applies to non-numeric results) [facility] ([facility] ID Date Data Source [id number] 07/05/2020 12:41:00 PM EDT [facility] ([facility] Name Value Range Interpretation Code Description Data Leona rce(s) Supporting Document(s) Venous PH 7.328 units 7.330-7.430 Below low normal [facility] ([facility] Venous Partial Pressure Co2 56.7 mmHg 38.0-50.0 Above high normal [facility] ([facility] Venous Partial Pressure O2 39.1 mmHg 30.0-50.0 Roselia l (applies to non-numeric results) [facility] ([facility] ) Venous Total Co2 30.8 meq/L 24.0-28.0 Above high normal M [facility] ([facility] Venous Hco3 29.1 meq/L 23.0-27.0 Above high normal [facility] ([facility] Venous Base Excess 2.0 Normal (applies to non-numer ic results) [facility] ([facility] Venous Standard Hco3 25.6 meq/L Normal (applies to non-num ana rosa results) [facility] ([facility] Venous O2 Saturation 69.2 % 60.0-80.0 Normal (applies to non-num ana rosa results) [facility] ([facility] ID Date Data Source [id number] 07/05/2020 12:41:00 PM EDT [facility] ([facility] Name Value Range Interpretation Code Description Data Leona rce(s) Supporting Document(s) White Blood Count 6.0 10 4.0-10.0 Normal (applies to non-numeri c results) [facility] ([facility] Hematocrit 41.6 [...] ([facility] ) Mean Corpuscular HGB Conc 30.0 g/dL 32.0-36.5 Below low normal [facility] ([facility] Neutrophils % 44.0 % 36.0-66.0 Normal (applies to non-numeric re sults) [facility] ([facility] Red Cell Distribution Width 16.0 % 11.5-14.5 Above high normal [facility] ([facility] Platelet Count, Automated 272 10 150-450 Normal (applies to non-numeric results) [facility] ([facility] ) Union % 6.5 % 2.0-8.0 Normal (applies to non-numeric resul ts) [facility] ([facility] Eos % 5.5 % 0.0-3.0 Above high normal [facility] ([facility] Lymph % 43.0 % 24.0-44.0 Normal (applies to non-numeric resul ts) [facility] ([facility] Immature Granulocyte % 0.3 % 0-3.0 Normal (applies to non-n umeric results) [facility] ([facility] Nucleated Red Blood Cell % 0.0 % 0-0 Normal (applies to n on-numeric results) [facility] ([facility] Baso % 0.7 % 0.0-1.0 Normal (applies to non-numeric resul ts) [facility] ([facility] Union # 0.4 10 0.0-0.8 Normal (applies to non-numeric resul ts) [facility] ([facility] Neutrophils # 2.6 10 1.5-8.5 Normal (applies to non-numeric re sults) [facility] ([facility] Lymph # 2.6 10 1.5-5.0 Normal (applies to non-numeric resul ts) [facility] ([facility] Baso # 0.0 10 0.0-0.2 Normal (applies to non-numeric resul ts) [facility] ([facility] Eos # 0.3 10 0.0-0.5 Normal (applies to non-numeric resul ts) [facility] ([facility] ID Date Data Source [id number] 07/05/2020 12:41:00 PM EDT [facility] ([facility] Name Value Range Interpretation Code Description Data Leona rce(s) Supporting Document(s) Erythrocyte mean corpuscular hemoglobin concentration [Mass/volume] by Automated count 30.0 32.0-36.5 [facility] ID Date Data Source [id number] 07/05/2020 12:41:00 PM EDT [facility] ([facility] Name Value Range Interpretation Code Description Data Leona rce(s) Supporting Document(s) Neutrophils [#/volume] in Blood by Automated count 44.0 36.0-66 .0 [facility] ([facility] ID Date Data Source [id number] 07/05/2020 12:41:00 PM EDT [facility] ([facility] Name Value Range Interpretation Code Description Data Leona rce(s) Supporting Document(s) Erythrocyte distribution width [Ratio] by Automated count 16.0 11.5-14.5 [facility] ([facility]) ID Date Data Source [id number] 07/05/2020 12:41:00 PM EDT [facility] ([facility]) Name Value Range Interpretation Code Description Data Leona rce(s) Supporting Document(s) Erythrocyte mean corpuscular hemoglobin [Entitic mass] by Au tomated count 27.4 27.0-33.0 [facility] ([facility]) ID Date Data Source [id number] 07/05/2020 12:41:00 PM EDT [facility] ([facility]) Name Value Range Interpretation Code Description Data Leona rce(s) Supporting Document(s) Erythrocyte mean corpuscular volume [Entitic volume] by Auto mated count 91.0 80.0-96.0 [facility] ([facility]) ID Date Data Source [id number] 07/05/2020 12:41:00 PM EDT [facility] ([facility]) Name Value Range Interpretation Code Description Data Leona rce(s) Supporting Document(s) Erythrocytes [#/volume] in Blood by Automated count 4.57 4.00-5 .40 [facility] ([facility]) ID Date Data Source [id number] 07/05/2020 12:41:00 PM EDT [facility] ([facility]) Name Value Range Interpretation Code Description Data Leona rce(s) Supporting Document(s) Platelets [#/volume] in Blood by Automated count 272 150-450 [facility] ([facility]) ID Date Data Source [id number] 07/05/2020 12:41:00 PM EDT [facility] ([facility]) Name Value Range Interpretation Code Description Data Leona rce(s) Supporting Document(s) Monocytes/100 leukocytes in Blood by Automated count 6.5 2.0-8 .0 [facility] ([facility]) ID Date Data Source [id number] 07/05/2020 12:41:00 PM EDT [facility] ([facility]) Name Value Range Interpretation Code Description Data Leona rce(s) Supporting Document(s) Eosinophils/100 leukocytes in Blood by Automated count 5.5 0.0 -3.0 [facility] ([facility]) ID Date Data Source [id number] 07/05/2020 12:41:00 PM EDT [facility] ([facility]) Name Value Range Interpretation Code Description Data Leona rce(s) Supporting Document(s) Basophils/100 leukocytes in Blood by Automated count 0.7 0.0-1 .0 [facility] ([facility]) ID Date Data Source [id number] 07/05/2020 12:41:00 PM EDT [facility] ([facility]) Name Value Range Interpretation Code Description Data Leona rce(s) Supporting Document(s) Immature granulocytes/100 leukocytes in Blood by Automated count 0.3 0-3.0 [facility] ([facility]) ID Date Data Source [id number] 07/05/2020 12:41:00 PM EDT [facility] ([facility]) Name Value Range Interpretation Code Description Data Leona rce(s) Supporting Document(s) Nucleated erythrocytes/100 leukocytes [Ratio] in Blood by Au tomated count 0.0 0-0 [facility] ([facility] ID Date Data Source [id number] 07/05/2020 12:41:00 PM EDT [facility] ([facility]) Name Value Range Interpretation Code Description Data Leona rce(s) Supporting Document(s) Neutrophils [#/volume] in Blood by Automated count 2.6 1.5-8.5 [facility] ([facility]) ID Date Data Source [id number] 07/05/2020 12:41:00 PM EDT [facility] ([facility]) Name Value Range Interpretation Code Description Data Leona rce(s) Supporting Document(s) Monocytes [#/volume] in Blood by Automated count 0.4 0.0-0.8 [facility] ([facility]) ID Date Data Source [id number] 07/05/2020 12:41:00 PM EDT [facility] ([facility]) Name Value Range Interpretation Code Description Data Leona rce(s) Supporting Document(s) Hemoglobin [Mass/volume] in Blood 12.5 12.0-15.5 [facility] ([facility]) ID Date Data Source [id number] 07/05/2020 12:41:00 PM EDT [facility] ([facility]) Name Value Range Interpretation Code Description Data Leona rce(s) Supporting Document(s) Leukocytes [#/volume] in Blood by Automated count 6.0 4.0-10.0 [facility] ([facility]) ID Date Data Source [id number] 07/05/2020 12:41:00 PM EDT [facility] ([facility]) Name Value Range Interpretation Code Description Data Leona rce(s) Supporting Document(s) Thyrotropin [Units/volume] in Serum or Plasma 7.580 uIU/ML 0.358-3.74 0 [facility] ([facility]) ID Date Data Source [id number] 07/05/2020 12:41:00 PM EDT [facility] ([facility]) Name Value Range Interpretation Code Description Data Leona rce(s) Supporting Document(s) Aspartate aminotransferase [Enzymatic activity/volume] in Serum or Plasma 16 U/L 7-37 [facility] ([facility]) Alkaline phosphatase [Enzymatic activity/volume] in Serum or Plasma 89 U/L 45-117 [facility] ([facility] Alanine aminotransferase [Enzymatic activity/volume] in Seru m or Plasma 21 U/L 12-78 [facility] ([facility]) Bilirubin,Total 0.4 mg/dL 0.2-1.0 [facility] ([facility]) Bilirubin,Direct Laboratory test result 0.0-0.2 [facility] ([facility]) Albumin [Mass/volume] in Serum or Plasma 4.0 GM/DL 3.2-5.2 [facility] ([facility]) Protein [Mass/volume] in Serum or Plasma 7.3 GM/DL 6.4-8.2 [facility] ([facility]) Albumin/Globulin Ratio 1.2 1.2-2.2 [facility] ([facility]) ID Date Data Source [id number] 07/05/2020 12:41:00 PM EDT [facility] ([facility]) Name Value Range Interpretation Code Description Data Leona rce(s) Supporting Document(s) Red Blood Count 4.57 10 4.00-5.40 [facility] ([facility]) White Blood Count 6.0 10 4.0-10.0 [facility] ([facility]) Hemoglobin 12.5 g/dL 12.0-15.5 [facility] ([facility]) Hematocrit [Volume Fraction] of Blood by Automated count 41.6 % 3 6.0-47.0 [facility] ([facility]) Mean Corpuscular Hemoglobin 27.4 pg 27.0-33.0 [facility] ([facility]) Mean Corpuscular Volume 91.0 fl 80.0-96.0 M [facility] ([facility]) Mean Corpuscular HGB Conc 30.0 g/dL 32.0-36.5 [facility] ([facility]) Red Cell Distribution Width 16.0 % 11.5-14.5 [facility] ([facility]) Neutrophils % 44.0 % 36.0-66.0 [facility] ([facility] Platelet Count, Automated 272 10 150-450 [facility] ([facility]) Lymphocytes/100 leukocytes in Blood by Automated count 43.0 % 24. 0-44.0 [facility] ([facility]) Union % 6.5 % 2.0-8.0 [facility] Eos % 5.5 % 0.0-3.0 [facility] ([facility] Baso % 0.7 % 0.0-1.0 [facility] ([facility] Immature Granulocyte % 0.3 % 0-3.0 [facility] ([facility]) Neutrophils # 2.6 10 1.5-8.5 [facility] ([facility] Nucleated Red Blood Cell % 0.0 % 0-0 [facility] ([facility]) Lymph # 2.6 10 1.5-5.0 [facility] ([facility] Union # 0.4 10 0.0-0.8 [facility] ([facility]) Baso # 0.0 10 0.0-0.2 [facility] ([facility] Eos # 0.3 10 0.0-0.5 [facility] ([facility] ID Date Data Source [id number] 07/05/2020 12:41:00 PM EDT [facility] ([facility]) Name Value Range Interpretation Code Description Data Leona rce(s) Supporting Document(s) Lymphocytes [#/volume] in Blood by Automated count 2.6 1.5-5.0 [facility] ([facility]) ID Date Data Source [id number] 07/05/2020 12:41:00 PM EDT [facility] ([facility]) Name Value Range Interpretation Code Description Data Leona rce(s) Supporting Document(s) Thyrotropin [Units/volume] in Serum or Plasma by Detec tion limit <= 0.005 mIU/L 7.580 0.358-3.740 [facility] ([facility]) ID Date Data Source [id number] 07/05/2020 12:41:00 PM EDT [facility] ([facility]) Name Value Range Interpretation Code Description Data Leona rce(s) Supporting Document(s) Troponin I.cardiac [Mass/volume] in Serum or Plasma Laboratory test result [facility] ([facility]) ID Date Data Source [id number] 07/05/2020 12:41:00 PM EDT [facility] ([facility]) Name Value Range Interpretation Code Description Data Leona rce(s) Supporting Document(s) Ammonia [Moles/volume] in Plasma 30 [facility] ([facility]) ID Date Data Source [id number] 07/05/2020 12:41:00 PM EDT [facility] ([facility]) Name Value Range Interpretation Code Description Data Leona rce(s) Supporting Document(s) Bilirubin.direct [Mass/volume] in Serum or Plasma Laboratory test result 0.0-0.2 [facility] ([facility]) ID Date Data Source [id number] 07/05/2020 12:41:00 PM EDT [facility] ([facility]) Name Value Range Interpretation Code Description Data Leona rce(s) Supporting Document(s) Creatine kinase.MB/Creatine kinase.total [Pure catalytic fraction] in Serum or Plasma by calculation 1.78 [facility] ([facility]) ID Date Data Source [id number] 07/05/2020 12:41:00 PM EDT [facility] ([facility]) Name Value Range Interpretation Code Description Data Leona rce(s) Supporting Document(s) Creatine kinase.MB [Mass/volume] in Serum or Plasma 1.6 [facility] ([facility]) ID Date Data Source [id number] 07/05/2020 12:41:00 PM EDT [facility] ([facility]) Name Value Range Interpretation Code Description Data Leona rce(s) Supporting Document(s) Creatine kinase [Enzymatic activity/volume] in Serum or Plasma 90 26-192 [facility] ([facility]) ID Date Data Source [id number] 07/05/2020 12:41:00 PM EDT [facility] ([facility]) Name Value Range Interpretation Code Description Data Leona rce(s) Supporting Document(s) Calcium [Moles/volume] in Serum or Plasma 9.7 8.8-10.2 [facility] ([facility]) ID Date Data Source [id number] 07/05/2020 12:41:00 PM EDT [facility] ([facility]) Name Value Range Interpretation Code Description Data Leona rce(s) Supporting Document(s) Anion gap 3 in Serum or Plasma 4 8-16 [facility] ([facility]) ID Date Data Source [id number] 07/05/2020 12:41:00 PM EDT [facility] ([facility]) Name Value Range Interpretation Code Description Data Leona rce(s) Supporting Document(s) Carbon dioxide, total [Moles/volume] in Serum or Plasma 29 21 -32 [facility] ([facility]) ID Date Data Source [id number] 07/05/2020 12:41:00 PM EDT [facility] ([facility]) Name Value Range Interpretation Code Description Data Leona rce(s) Supporting Document(s) Chloride [Moles/volume] in Serum or Plasma 106 98-107 [facility] ([facility]) ID Date Data Source [id number] 07/05/2020 12:41:00 PM EDT [facility] ([facility]) Name Value Range Interpretation Code Description Data Leona rce(s) Supporting Document(s) Potassium [Moles/volume] in Serum or Plasma 4.4 3.5-5.1 [facility] ([facility]) ID Date Data Source [id number] 07/05/2020 12:41:00 PM EDT [facility] ([facility]) Name Value Range Interpretation Code Description Data Leona rce(s) Supporting Document(s) Sodium [Moles/volume] in Serum or Plasma 139 136-145 [facility] ([facility]) ID Date Data Source [id number] 07/05/2020 12:41:00 PM EDT [facility] ([facility]) Name Value Range Interpretation Code Description Data Leona rce(s) Supporting Document(s) Glomerular filtration rate/1.73 sq M.pre dicted [Volume Rate/Area] in Serum or Plasma by Creatinine-based formula (MDRD) Laboratory test result [facility] ([facility]) ID Date Data Source [id number] 07/05/2020 12:41:00 PM EDT [facility] ([facility]) Name Value Range Interpretation Code Description Data Leona rce(s) Supporting Document(s) Creatinine [Mass/volume] in Serum or Plasma 0.89 0.55-1.30 [facility] ([facility]) ID Date Data Source [id number] 07/05/2020 12:41:00 PM EDT [facility] ([facility]) Name Value Range Interpretation Code Description Data Leona rce(s) Supporting Document(s) Urea nitrogen [Mass/volume] in Serum or Plasma 21 7-18 [facility] ([facility]) ID Date Data Source [id number] 07/05/2020 12:41:00 PM EDT [facility] ([facility]) Name Value Range Interpretation Code Description Data Leona rce(s) Supporting Document(s) Glucose [Mass/volume] in Serum or Plasma 113 70-100 [facility] ([facility]) ID Date Data Source [id number] 07/05/2020 12:41:00 PM EDT [facility] ([facility]) Name Value Range Interpretation Code Description Data Leona rce(s) Supporting Document(s) Oxygen saturation in Venous blood 69.2 60.0-80.0 [facility] ([facility]) ID Date Data Source [id number] 07/05/2020 12:41:00 PM EDT [facility] Name Value Range Interpretation Code Description Data Leona rce(s) Supporting Document(s) Bicarbonate [Moles/volume] standard in Venous blood 25.6 [facility] ([facility]) ID Date Data Source [id number] 07/05/2020 12:41:00 PM EDT [facility] ([facility]) Name Value Range Interpretation Code Description Data Leona rce(s) Supporting Document(s) Base excess in Venous blood by calculation 2.0 [facility] ([facility]) ID Date Data Source [id number] 07/05/2020 12:41:00 PM EDT [facility] ([facility]) Name Value Range Interpretation Code Description Data Leona rce(s) Supporting Document(s) Bicarbonate [Moles/volume] in Venous blood 29.1 23.0-27.0 [facility] ([facility]) ID Date Data Source [id number] 07/05/2020 12:41:00 PM EDT [facility] ([facility]) Name Value Range Interpretation Code Description Data Leona rce(s) Supporting Document(s) Carbon dioxide, total [Moles/volume] in Venous blood by calc ulation 30.8 24.0-28.0 [facility] ([facility]) ID Date Data Source [id number] 07/05/2020 12:41:00 PM EDT [facility] ([facility]) Name Value Range Interpretation Code Description Data Leona rce(s) Supporting Document(s) Oxygen [Partial pressure] in Venous blood 39.1 30.0-50.0 [facility] ([facility]) ID Date Data Source [id number] 07/05/2020 12:41:00 PM EDT [facility] ([facility]) Name Value Range Interpretation Code Description Data Lenoa rce(s) Supporting Document(s) Carbon dioxide [Partial pressure] in Venous blood 56.7 38.0-50. 0 [facility] ([facility]) ID Date Data Source [id number] 07/05/2020 12:41:00 PM EDT [facility] ([facility]) Name Value Range Interpretation Code Description Data Leona rce(s) Supporting Document(s) pH of Venous blood 7.328 7.330-7.430 [facility] ([facility]) ID Date Data Source [id number] 07/05/2020 12:41:00 PM EDT [facility] ([facility]) Name Value Range Interpretation Code Description Data Leona rce(s) Supporting Document(s) Basophils [#/volume] in Blood by Automated count 0.0 0.0-0.2 [facility] ([facility]) ID Date Data Source [id number] 07/05/2020 12:41:00 PM EDT [facility] ([facility]) Name Value Range Interpretation Code Description Data Leona rce(s) Supporting Document(s) Bilirubin.total [Mass/volume] in Serum or Plasma 0.4 0.2-1.0 [facility] ([facility]) ID Date Data Source [id number] 07/05/2020 12:41:00 PM EDT [facility] ([facility]) Name Value Range Interpretation Code Description Data Leona rce(s) Supporting Document(s) Eosinophils [#/volume] in Blood by Automated count 0.3 0.0-0.5 [facility] ([facility] ID Date Data Source [id number] 07/03/2020 12:29:00 AM EDT [facility] Name Value Range Interpretation Code Description Data Leona rce(s) Supporting Document(s) SARS-CoV-2 (COVID 19) NEGATIVE - SARS-CoV-2 (COVID19) [facility] This lab was ordered by [facility] a nd reported by [facility]. ID Date Data Source [id number] 07/02/2020 10:47:00 PM EDT [facility] ([facility] Name Value Range Interpretation Code Description Data Leona rce(s) Supporting Document(s) Acetaminophen [Mass/volume] in Serum or Plasma Laboratory test r esult 10.0-30.0 [facility] ([facility] ID Date Data Source [id number] 07/02/2020 10:47:00 PM EDT [facility] ([facility] Name Value Range Interpretation Code Description Data Leona rce(s) Supporting Document(s) Salicylates [Mass/volume] in Serum or Plasma Laboratory test result 5.0-30.0 [facility] ([facility] ID Date Data Source [id number] 07/02/2020 10:47:00 PM EDT [facility] ([facility] Name Value Range Interpretation Code Description Data Leona rce(s) Supporting Document(s) Magnesium [Mass/volume] in Serum or Plasma 2.1 1.8-2.4 [facility] ([facility]) ID Date Data Source [id number] 07/02/2020 10:47:00 PM EDT [facility] ([facility] Name Value Range Interpretation Code Description Data Leona rce(s) Supporting Document(s) Ethanol [Presence] in Serum or Plasma Laboratory test result 0.000-0. 010 [facility] ([facility] ) ID Date Data Source [id number] 07/02/2020 10:30:00 PM EDT [facility] ([facility] Name Value Range Interpretation Code Description Data Leona rce(s) Supporting Document(s) pH of Arterial blood 7.375 7.350-7.450 [facility] ([facility]) ID Date Data Source [id number] 07/02/2020 10:30:00 PM EDT [facility] ([facility]) Name Value Range Interpretation Code Description Data Leona rce(s) Supporting Document(s) Laboratory test finding (navigational concept) 27.0 23.0-27.0 [facility] ([facility]) ID Date Data Source [id number] 07/02/2020 10:30:00 PM EDT [facility] ([facility]) Name Value Range Interpretation Code Description Data Leona rce(s) Supporting Document(s) Carbon dioxide [Partial pressure] in Arterial blood 43.7 35.0-4 5.0 [facility] ([facility]) ID Date Data Source [id number] 07/02/2020 10:30:00 PM EDT [facility] ([facility]) Name Value Range Interpretation Code Description Data Leona rce(s) Supporting Document(s) Oxygen [Partial pressure] in Arterial blood 129.0 80-105 [facility] ([facility]) ID Date Data Source [id number] 07/02/2020 10:30:00 PM EDT [facility] ([facility]) Name Value Range Interpretation Code Description Data Leona rce(s) Supporting Document(s) Bicarbonate [Moles/volume] in Arterial blood 25.5 22.0-26.0 [facility] ([facility]) ID Date Data Source [id number] 07/02/2020 10:30:00 PM EDT [facility] ([facility]) Name Value Range Interpretation Code Description Data Leona rce(s) Supporting Document(s) Base excess standard in Arterial blood by calculation 0.0 [facility] ([facility]) ID Date Data Source [id number] 07/02/2020 10:30:00 PM EDT [facility] ([facility]) Name Value Range Interpretation Code Description Data Leona rce(s) Supporting Document(s) Oxygen saturation Calculated from oxygen partial pressure in Arterial blood 99 95-98 [facility] ([facility]) ID Date Data Source [id number] 07/02/2020 09:48:00 PM EDT [facility] ([facility]) Name Value Range Interpretation Code Description Data Leona rce(s) Supporting Document(s) Urine Mucus (Auto) Laboratory test result [facility] ([facility]) ID Date Data Source [id number] 07/02/2020 09:48:00 PM EDT [facility] ([facility]) Name Value Range Interpretation Code Description Data Leona rce(s) Supporting Document(s) Hemoglobin A1c/Hemoglobin.total in Blood 7.7 [facility] ([facility]) ID Date Data Source [id number] 07/02/2020 09:48:00 PM EDT [facility] ([facility]) Name Value Range Interpretation Code Description Data Leona rce(s) Supporting Document(s) Glucose mean value [Mass/volume] in Blood Estimated fr om glycated hemoglobin 174 60-110 [facility] ([facility]) ID Date Data Source [id number] 06/18/2020 07:51:00 PM EDT [facility] ([facility] Name Value Range [...] .5-5.1 Normal (applies to non-numeric results) [facility] ([facility] Laboratory test finding (navigational concept) 99 meq/L 9 8-109 Normal (applies to non-numeric results) [facility] ([facility] Laboratory test finding [...] [facility] ID Date Data Source [id number] 06/18/2020 07:25:00 PM EDT [facility] Name Value Range Interpretation Code Description Data Leona rce(s) Supporting Document(s) Lipoprotein lipase [Enzymatic activity/volume] in Serum or P lasma 311 U/L 73-393 Normal (applies to non-numeric results) [facility] ([facility] ID Date Data Source [id number] 06/18/2020 07:25:00 PM EDT [facility] ([facility] Name Value Range Interpretation Code Description Data Leona rce(s) Supporting Document(s) Alt/SGPT 22 U/L 12-78 Normal (applies to non-numeric resul ts) [facility] ([facility] Ast/Sgot 14 U/L 7-37 Normal (applies to non-numeric resul ts) [facility] ([facility] Alkaline Phosphatase 95 U/L 45-117 Normal (applies to non-num ana rosa results) [facility] ([facility] Bilirubin,Total 0.3 mg/dL 0.2-1.0 Normal (applies to non-numeric results) [facility] ([facility] Bilirubin,Direct 0.1 mg/dL 0.0-0.2 Normal (applies to non-numeric results) [facility] ([facility] Total Protein 7.2 GM/DL 6.4-8.2 Normal (applies to non-numeric re sults) [facility] ([facility] Albumin 3.9 GM/DL 3.2-5.2 Normal (applies to non-numeric resul ts) [facility] ([facility] Albumin/Globulin Ratio 1.2 1.2-2.2 Normal (applies to non-n umeric results) [facility] ([facility] ID Date Data Source [id number] 06/18/2020 07:25:00 PM EDT [facility] Name Value Range Interpretation Code Description Data Leona rce(s) Supporting Document(s) White Blood Count 7.3 10 4.0-10.0 Normal (applies to non-numeri c results) [facility] ([facility] Red Blood Count 4.46 10 4.00-5.40 Normal (applies to non-numeric results) [facility] ([facility] Mean Corpuscular Volume 88.6 fl 80.0-96.0 Normal ( applies to non-numeric results) [facility] ([facility] ) Hemoglobin 12.0 g/dL 12.0-15.5 Normal (applies to non-numeric resul ts) [facility] ([facility] Hematocrit 39.5 % 36.0-47.0 Normal (applies to non-numeric resul ts) [facility] ([facility] Mean Corpuscular HGB Conc 30.4 g/dL 32.0-36.5 Below low normal [facility] ([facility] Mean Corpuscular Hemoglobin 26.9 pg 27.0-33.0 Below low normal [facility] ([facility] Red Cell Distribution Width 16.5 % 11.5-14.5 Above high normal [facility] ([facility] Lymph % 38.5 % 24.0-44.0 Normal (applies to non-numeric resul ts) [facility] ([facility] Platelet Count, Automated 328 10 150-450 Normal (applies to non-numeric results) [facility] ([facility] Neutrophils % 49.9 % 36.0-66.0 Normal (applies to non-numeric re sults) [facility] ([facility] Eos % 5.1 % 0.0-3.0 Above high normal [facility] ([facility] Union % 5.8 % 2.0-8.0 Normal (applies to non-numeric resul ts) [facility] ([facility] Immature Granulocyte % 0.4 % 0-3.0 Normal (applies to non-n umeric results) [facility] ([facility] Nucleated Red Blood Cell % 0.0 % 0-0 Normal (applies to n on-numeric results) [facility] ([facility] Baso % 0.3 % 0.0-1.0 Normal (applies to non-numeric resul ts) [facility] ([facility] Neutrophils # 3.6 10 1.5-8.5 Normal (applies to non-numeric re sults) [facility] ([facility] Union # 0.4 10 0.0-0.8 Normal (applies to non-numeric resul ts) [facility] ([facility] Lymph # 2.8 10 1.5-5.0 Normal (applies to non-numeric resul ts) [facility] ([facility] Baso # 0.0 10 0.0-0.2 Normal (applies to non-numeric resul ts) [facility] ([facility] Eos # 0.4 10 0.0-0.5 Normal (applies to non-numeric resul ts) [facility] ([facility] ID Date Data Source [id number] 06/18/2020 07:25:00 PM EDT [facility] ([facility]) Name Value Range Interpretation Code Description Data Leona rce(s) Supporting Document(s) Lipase [Enzymatic activity/volume] in Serum or Plasma 311 73-3 93 [facility] ([facility]) ID Date Data Source [id number] 05/24/2020 02:23:00 PM EDT [facility] ([facility] Name Value Range Interpretation Code Description Data Leona rce(s) Supporting Document(s) Glucose [Mass/volume] in Serum or Plasma 206 mg/dL 65-99 Above high normal [facility] ([facility] BUN 20 mg/dL 8-27 [facility] eGFR If NonAfricn Am 62 mL/min/1.73 [facility] ([facility] Creatinine [Mass/volume] in Serum or Plasma 0.94 mg/dL 0.57-1.00 [facility] ([facility] eGFR If Africn Am 71 mL/min/1.73 [facility] ([facility] Urea nitrogen/Creatinine [Mass Ratio] in Serum or Plasma 21 1 2-28 [facility] ([facility] Potassium [Moles/volume] in Serum or Plasma 4.6 mmol/L 3.5-5.2 [facility] ([facility] Sodium [Moles/volume] in Serum or Plasma 136 mmol/L 134-144 [facility] ([facility] Chloride [Moles/volume] in Serum or Plasma 94 mmol/L 96-106 Belo w low normal [facility] ([facility] Carbon dioxide, total [Moles/volume] in Serum or Plasma 28 mmol/L 20 -29 [facility] ([facility] Calcium [Mass/volume] in Serum or Plasma 9.6 mg/dL 8.7-10.3 [facility] ([facility] ID Date Data Source [id number] 05/19/2020 04:52:00 AM EDT [facility] ([facility]) Name Value Range Interpretation Code Description Data Leona rce(s) Supporting Document(s) Folate [Mass/volume] in Serum or Plasma 16.8 [facility] ([facility]) ID Date Data Source [id number] 05/19/2020 04:52:00 AM EDT [facility] ([facility]) Name Value Range Interpretation Code Description Data Leona rce(s) Supporting Document(s) Cobalamin (Vitamin B12) [Mass/volume] in Serum or Plasma 367 2 47-911 [facility] ([facility]) ID Date Data Source [id number] 05/17/2020 11:49:00 PM EDT [facility] ([facility]) Name Value Range Interpretation Code Description Data Leona rce(s) Supporting Document(s) Bacteria [Presence] in Urine by Automated Laboratory test result [facility] ([facility]) ID Date Data Source [id number] 05/17/2020 11:49:00 PM EDT [facility] ([facility] Name Value Range Interpretation Code Description Data Leona rce(s) Supporting Document(s) pH of Urine by Automated test strip 8.0 5.0-9.0 [facility] ([facility]) ID Date Data Source [id number] 05/17/2020 11:49:00 PM EDT [facility] ([facility] Name Value Range Interpretation Code Description Data Leona rce(s) Supporting Document(s) Ketones [Presence] in Urine by Automated test strip Laboratory test result [facility] ([facility]) ID Date Data Source [id number] 05/17/2020 11:49:00 PM EDT [facility] ([facility]) Name Value Range Interpretation Code Description Data Leona rce(s) Supporting Document(s) Erythrocytes [#/volume] in Urine by Automated count 0 0-3 [facility] ([facility]) ID Date Data Source [id number] 05/17/2020 11:49:00 PM EDT [facility] ([facility] Name Value Range Interpretation Code Description Data Leona rce(s) Supporting Document(s) Appearance of Urine Laboratory test result [facility] ([facility] ID Date Data Source [id number] 05/17/2020 11:49:00 PM EDT [facility] ([facility]) Name Value Range Interpretation Code Description Data Leona rce(s) Supporting Document(s) Glucose [Presence] in Urine by Automated test strip Laboratory test result [facility] ([facility] ID Date Data Source [id number] 05/17/2020 11:49:00 PM EDT [facility] ([facility]) Name Value Range Interpretation Code Description Data Leona rce(s) Supporting Document(s) Hemoglobin [Presence] in Urine by Automated test strip Laborator y test result [facility] ([facility]) ID Date Data Source [id number] 05/17/2020 11:49:00 PM EDT [facility] ([facility] Name Value Range Interpretation Code Description Data Leona rce(s) Supporting Document(s) Color of Urine by Auto Laboratory test result [facility] ([facility] ID Date Data Source [id number] 05/17/2020 11:49:00 PM EDT [facility] ([facility] Name Value Range Interpretation Code Description Data Leona rce(s) Supporting Document(s) Nitrite [Presence] in Urine by Automated test strip Laboratory test result [facility] ([facility] ID Date Data Source [id number] 05/17/2020 11:49:00 PM EDT [facility] ([facility] Name Value Range Interpretation Code Description Data Leona rce(s) Supporting Document(s) Sodium [Moles/volume] in Urine 97 [facility] ([facility]) ID Date Data Source [id number] 05/17/2020 11:49:00 PM EDT [facility] ([facility]) Name Value Range Interpretation Code Description Data Leona rce(s) Supporting Document(s) Specific gravity of Urine by Automated test strip 1.011 1.002-1. 035 [facility] ([facility]) ID Date Data Source [id number] 05/17/2020 11:49:00 PM EDT [facility] ([facility]) Name Value Range Interpretation Code Description Data Leona rce(s) Supporting Document(s) Urea nitrogen [Mass/volume] in Urine 497 [facility] ([facility]) ID Date Data Source [id number] 05/17/2020 11:49:00 PM EDT [facility] ([facility]) Name Value Range Interpretation Code Description Data Leona rce(s) Supporting Document(s) Urobilinogen [Presence] in Urine by Automated test strip 0.2 0 .0-2.0 [facility] ([facility]) ID Date Data Source [id number] 05/17/2020 11:49:00 PM EDT [facility] ([facility]) Name Value Range Interpretation Code Description Data Leona rce(s) Supporting Document(s) Epithelial cells.squamous [#/area] in Urine sediment by Automate d count 0 0-6 [facility] ([facility]) ID Date Data Source [id number] 05/17/2020 11:49:00 PM EDT [facility] ([facility]) Name Value Range Interpretation Code Description Data Leona rce(s) Supporting Document(s) Leukocytes [#/area] in Urine sediment by Automated count 0 0 -3 [facility] ([facility]) ID Date Data Source [id number] 05/17/2020 11:49:00 PM EDT [facility] ([facility]) Name Value Range Interpretation Code Description Data Leona rce(s) Supporting Document(s) Protein [Presence] in Urine by Automated test strip Laboratory test result [facility] ([facility]) ID Date Data Source [id number] 05/17/2020 11:49:00 PM EDT [facility] ([facility]) Name Value Range Interpretation Code Description Data Leona rce(s) Supporting Document(s) Potassium [Moles/volume] in Urine 37.2 [facility] ([facility]) ID Date Data Source [id number] 05/17/2020 11:49:00 PM EDT [facility] ([facility]) Name Value Range Interpretation Code Description Data Leona rce(s) Supporting Document(s) Bilirubin.total [Presence] in Urine by Automated test strip Laboratory test result [facility] ([facility]) ID Date Data Source [id number] 05/17/2020 11:49:00 PM EDT [facility] ([facility]) Name Value Range Interpretation Code Description Data Leona rce(s) Supporting Document(s) Urine Hyaline Casts (Auto) 0 0-1 [facility] ([facility] [facility]) ID Date Data Source [id number] 05/17/2020 11:49:00 PM EDT [facility] ([facility]) Name Value Range Interpretation Code Description Data Leona rce(s) Supporting Document(s) Creatinine [Mass/volume] in Urine 36.3 [facility] ([facility]) ID Date Data Source [id number] 05/17/2020 11:49:00 PM EDT [facility] ([facility]) Name Value Range Interpretation Code Description Data Leona rce(s) Supporting Document(s) Leukocyte esterase [Presence] in Urine by Automated te st strip Laboratory test result [facility] ([facility]) ID Date Data Source [id number] 05/17/2020 09:46:00 PM EDT [facility] ([facility]) Name Value Range Interpretation Code Description Data Leona rce(s) Supporting Document(s) Glucose [Mass/volume] in Serum or Plasma 46 [facility] ([facility]) ID Date Data Source [id number] 05/17/2020 06:26:00 PM EDT [facility] ([facility]) Name Value Range Interpretation Code Description Data Leona rce(s) Supporting Document(s) Sars coronavirus 2 Rna [Presence] in Res piratory specimen by Daniela with probe detection Laboratory test result [facility] ([facility]) ID Date Data Source [id number] 05/17/2020 06:26:00 PM EDT [facility] ([facility]) Name Value Range Interpretation Code Description Data Leona rce(s) Supporting Document(s) Influenza virus B RNA [Presence] in Naso pharynx by Probe and target amplification method Laboratory test result [facility] ([facility]) ID Date Data Source [id number] 05/17/2020 06:26:00 PM EDT [facility] ([facility]) Name Value Range Interpretation Code Description Data Leona rce(s) Supporting Document(s) Respiratory syncytial virus RNA [Presenc e] in Nasopharynx by Probe and target amplification method Laboratory test result [facility] ([facility]) ID Date Data Source [id number] 05/17/2020 06:26:00 PM EDT [facility] ([facility]) Name Value Range Interpretation Code Description Data Leona rce(s) Supporting Document(s) Influenza virus A RNA [Presence] in Naso pharynx by Probe and target amplification method Laboratory test result [facility] ([facility]) ID Date Data Source [id number] 05/17/2020 06:26:00 PM EDT [facility] Name Value Range Interpretation Code Description Data Leona rce(s) Supporting Document(s) SARS coronavirus 2 RNA [Presence] in Res piratory specimen by DANIELA with probe detection NEGATIVE [facility] This lab was ordered by [facility] a nd reported by [facility]. ID Date Data Source [id number] 05/17/2020 06:02:00 PM EDT [facility] ([facility] Name Value Range Interpretation Code Description Data Leona rce(s) Supporting Document(s) Glucose [Mass/volume] in Capillary blood by Glucometer 149 mg/dL 83-110 Above high normal [facility] ([facility] ID Date Data Source [id number] 05/17/2020 04:56:00 PM EDT [facility] ([facility] Name Value Range Interpretation Code Description Data Leona rce(s) Supporting Document(s) Laboratory test finding (navigational concept) 0.01 ng/mL 0 .00-0.08 Normal (applies to non-numeric results) [facility] ID Date Data Source [id number] 05/17/2020 04:56:00 PM EDT [facility] ([facility]) Name Value Range Interpretation Code Description Data Leona rce(s) Supporting Document(s) Troponin I.cardiac [Mass/volume] in Blood 0.01 0.00-0.08 [facility] ([facility]) ID Date Data Source [id number] 05/17/2020 04:54:00 PM EDT [facility] Name Value Range Interpretation Code Description Data Leona rce(s) Supporting Document(s) Thyrotropin [Units/volume] in Serum or Plasma 3.770 uIU/ML 0. 358-3.740 Above high normal [facility] ([facility] ) ID Date Data Source [id number] 05/17/2020 04:54:00 PM EDT [facility] ([facility] Name Value Range Interpretation Code Description Data Leona rce(s) Supporting Document(s) Glucose, Fasting 78 mg/dL 70-100 Normal (applies to non-numeric results) [facility] ([facility] Creatinine For GFR 1.31 mg/dL 0.55-1.30 Above high normal [facility] ([facility] Blood Urea Nitrogen 27 mg/dL 7-18 Above high normal [facility] ([facility] Sodium Level 135 meq/L 136-145 Below low normal [facility] ([facility] Glomerular Filtration Rate 42.7 Normal (applies to n on-numeric results) [facility] ([facility] <content>Units are mL/min/1.73 m2</content>
<content></content>
<content>Chronic Kidney Disease Staging per NKF:</content>
<content></content>
<content>Stage I & II GFR >=60 Normal to Mildly Decreased</content>
<content>Stage III GFR 30- 59 Moderately Decreased</content>
<content>Stage IV GFR 15-29 Severely Decreased</content>
<content>Stage V GFR <15 Very Little GFR Left</content>
<content>ESRD GFR <15 on RISK CONTROL SPECIALIST</content>
<content></content> Chloride Level 102 meq/L 98-107 Normal (applies to non-numeric r esults) [facility] ([facility] Potassium Serum 5.3 meq/L 3.5-5.1 Above high normal [facility] ([facility] Testing was performed on a hemolysed spe cimen. Suggest recollection of specimen for more accurate test results. Carbon Dioxide Level 29 meq/L 21-32 Normal (applies to non-num ana rosa results) [facility] ([facility] Anion Gap 4 meq/L 8-16 Below low normal [facility] ( [facility] Calcium Level 10.1 mg/dL 8.8-10.2 Normal (applies to non-numeric re sults) [facility] ([facility] ID Date Data Source [id number] 05/17/2020 04:54:00 PM EDT [facility] ([facility] Name Value Range Interpretation Code Description Data Leona rce(s) Supporting Document(s) Ast/Sgot 55 U/L 7-37 Above high normal [facility] ([facility] Alt/SGPT 24 U/L 12-78 Normal (applies to non-numeric resul ts) [facility] ([facility] Bilirubin,Total 0.3 mg/dL 0.2-1.0 Normal (applies to non-numeric results) [facility] ([facility] Alkaline Phosphatase 100 U/L 45-117 Normal (applies to non-num ana rosa results) [facility] ([facility] Total Protein 9.0 GM/DL 6.4-8.2 Above high normal [facility] ([facility] Bilirubin,Direct Laboratory test result 0.0-0.2 Normal ( applies to non-numeric results) [facility] ([facility] ) Albumin/Globulin Ratio 1.0 1.2-2.2 Below low normal [facility] ([facility] Albumin 4.6 GM/DL 3.2-5.2 Normal (applies to non-numeric resul ts) [facility] ([facility] ID Date Data Source [id number] 05/17/2020 04:54:00 PM EDT [facility] ([facility] Name Value Range Interpretation Code Description Data Leona rce(s) Supporting Document(s) White Blood Count 13.1 10 4.0-10.0 Above high normal [facility] ([facility] Red Blood Count 5.50 10 4.00-5.40 Above high normal [facility] ([facility] Hematocrit 48.9 % 36.0-47.0 Above high normal [facility] ([facility] Hemoglobin 14.6 g/dL 12.0-15.5 Normal (applies to non-numeric resul ts) [facility] ([facility] Mean Corpuscular Volume 88.9 fl 80.0-96.0 Normal ( applies to non-numeric results) [facility] ([facility] ) Mean Corpuscular Hemoglobin 26.5 pg 27.0-33.0 Below low normal [facility] ([facility] Mean Corpuscular HGB Conc 29.9 g/dL 32.0-36.5 Below low normal [facility] ([facility] Red Cell Distribution Width 19.8 % 11.5-14.5 Above high normal [facility] ([facility] Platelet Count, Automated 340 10 150-450 Normal (applies to non-numeric results) [facility] ([facility] ) Neutrophils % 88.7 % 36.0-66.0 Above high normal [facility] NT ([facility] Lymph % 6.5 % 24.0-44.0 Below low normal [facility] ( [facility] Union % 3.8 % 2.0-8.0 Normal (applies to non-numeric resul ts) [facility] ([facility] Eos % 0.3 % 0.0-3.0 Normal (applies to non-numeric resul ts) [facility] ([facility] Immature Granulocyte % 0.5 % 0-3.0 Normal (applies to non-n umeric results) [facility] ([facility] Baso % 0.2 % 0.0-1.0 Normal (applies to non-numeric resul ts) [facility] ([facility] Neutrophils # 11.6 10 1.5-8.5 Above high normal [facility] NT ([facility] Nucleated Red Blood Cell % 0.0 % 0-0 Normal (applies to n on-numeric results) [facility] ([facility] Lymph # 0.9 10 1.5-5.0 Below low normal [facility] ( [facility] Union # 0.5 10 0.0-0.8 Normal (applies to non-numeric resul ts) [facility] ([facility] Eos # 0.0 10 0.0-0.5 Normal (applies to non-numeric resul ts) [facility] ([facility] Baso # 0.0 10 0.0-0.2 Normal (applies to non-numeric resul ts) [facility] ([facility] ID Date Data Source [id number] 05/17/2020 04:54:00 PM EDT [facility] ([facility] Name Value Range Interpretation Code Description Data Leona rce(s) Supporting Document(s) Laboratory test finding (navigational concept) 51.0 % 3 8.0-51.0 Normal (applies to non-numeric results) [facility] ([facility] Laboratory test finding (navigational concept) 140 meq/L 1 36-145 Normal (applies to non-numeric results) [facility] ([facility] Laboratory test finding (navigational concept) 81 mg/dL 7 0-105 Normal (applies to non-numeric results) [facility] ([facility] Laboratory test finding (navigational concept) 5.2 mg/dL 4 .5-5.3 Normal (applies to non-numeric results) [facility] ([facility] Laboratory test finding (navigational concept) 3.8 meq/L 3 .5-5.1 Normal (applies to non-numeric results) [facility] ([facility] Laboratory test finding (navigational concept) 99 meq/L 9 8-109 Normal (applies to non-numeric results) [facility] ([facility] Laboratory test finding (navigational concept) 32.0 MM/L 2 3.0-27.0 Above high normal [facility] ([facility] Laboratory test finding (navigational concept) 33 mg/dL 8-26 Above high normal [facility] ([facility] Laboratory test finding (navigational concept) 1.3 mg/dL 0 .6-1.3 Normal (applies to non-numeric results) [facility] ([facility] ID Date Data Source [id number] 05/17/2020 04:54:00 PM EDT [facility] ([facility]) Name Value Range Interpretation Code Description Data Leona rce(s) Supporting Document(s) Thyrotropin [Units/volume] in Serum or Plasma 3.770 uIU/ML 0.358-3.74 0 [facility] ([facility]) ID Date Data Source [id number] 05/10/2020 01:56:00 PM EDT [facility] ([facility] Name Value Range Interpretation Code Description Data Leona rce(s) Supporting Document(s) Glucose [Mass/volume] in Capillary blood by Glucometer 149 mg/dL 83-110 Above high normal [facility] ) ID Date Data Source [id number] 05/10/2020 01:56:00 PM EDT [facility] ([facility]) Name Value Range Interpretation Code Description Data Leona rce(s) Supporting Document(s) Glucose [Mass/volume] in Capillary blood by Glucometer 149 mg/dL 83-110 Above high normal [facility] ([facility]) ID Date Data Source [id number] 05/10/2020 01:04:00 PM EDT [facility] ([facility]) Name Value Range Interpretation Code Description Data Leona rce(s) Supporting Document(s) Surgical pathology study Laboratory test result [facility]) FINAL DIAGNOSIS Submitted as" lipoma abdominal [...] to reveal benign adipose tissue and skin. Optician Manager sections submitted in one. -OA 05/13/2020 - 1419 Signed KASSY KOROMA MD 05/14/2020 1040 ID Date Data Source [id number] 05/10/2020 11:35:00 AM EDT [facility] ([facility] Name Value Range Interpretation Code Description Data Leona rce(s) Supporting Document(s) Glucose [Mass/volume] in Capillary blood by Glucometer 140 mg/dL 83-110 Above high normal [facility] ([facility] ) ID Date Data Source [id number] 05/10/2020 11:35:00 AM EDT [facility] ([facility] ) Name Value Range Interpretation Code Description Data Leona rce(s) Supporting Document(s) Glucose [Mass/volume] in Capillary blood by Glucometer 140 mg/dL 83-110 Above high normal [facility]) ID Date Data Source [id number] 05/05/2020 09:35:00 AM EDT [facility] Name Value Range Interpretation Code Description Data Leona rce(s) Supporting Document(s) SARS coronavirus 2 RNA Not Detected [facility] This lab was ordered by [facility] and reported by [facility]. ID Date Data Source [id number] 04/20/2020 07:20:00 PM EST [facility] ([facility] Name Value Range Interpretation Code Description Data Leona rce(s) Supporting Document(s) Glucose [Mass/volume] in Capillary blood by Glucometer 208 mg/dL 83-110 Above high normal [facility] ([facility] ID Date Data Source [id number] 04/20/2020 06:51:00 PM EST [facility] ([facility] [...] Normal (applies to non-numeric res ults) [facility] ([facility] Specific [place] Ur Auto RFX 1.004 1.002-1.035 Nor mal (applies to non-numeric results) [facility] ([facility] ) Protein, Urine Auto RFX Laboratory test result N ormal (applies to non-numeric results) [facility] ([facility] ) Ketone, Urine Auto RFX Laboratory test result No rmal (applies to non-numeric results) [facility] ([facility] ) Glucose, Urine (Ua) Auto RFX Laboratory test result Above high normal [facility] ([facility] Urobilinogen, Urine Auto RFX 0.2 mg/dL 0.0-2.0 Nor mal (applies to non-numeric results) [facility] ([facility] ) Bilirubin, Urine Auto RFX Laboratory test result Normal (applies to non- numeric results) [facility] ([facility] ) Nitrite, Urine Auto RFX Laboratory test result N ormal (applies to non-numeric results) [facility] ([facility] ) Leukocyte Esterase Ur Auto RFX Laboratory test result Normal (applies to non- numeric results) [facility] ([facility] ) WBC, Urine Auto RFX 1 /HPF 0-3 Normal (applies to non-nume samantha results) [facility] ([facility] Blood, Urine Blood RFX Laboratory test result No rmal (applies to non-numeric results) [facility] ([facility] ) RBC, Urine Auto RFX 1 /HPF 0-3 Normal (applies to non-nume samantha results) [facility] ([facility] Bacteria, Urine Auto RFX Laboratory test result Normal (applies to non-numeric results) [facility] ([facility] ) Squam Epithelial Cell Ur Aurfx 1 /HPF 0-6 N ormal (applies to non-numeric results) [facility] ([facility] ) Hyaline Cast, Urine Auto RFX 0 /LPF 0-1 Normal (appl ies to non-numeric results) [facility] ([facility] ID Date Data Source [id number] 04/20/2020 06:01:00 PM EST [facility] ([facility] Name Value Range Interpretation Code Description Data Leona rce(s) Supporting Document(s) Glucose [Mass/volume] in Capillary blood by Glucometer 124 mg/dL 83-110 Above high normal [facility] ([facility] ) ID Date Data Source [id number] 04/20/2020 04:48:00 PM EST [facility] ([facility] Name Value Range Interpretation Code Description Data Leona rce(s) Supporting Document(s) Laboratory test finding (navigational concept) 40.0 % 3 8.0-51.0 Normal (applies to non-numeric results) [facility] ([facility] Laboratory test finding (navigational concept) 109 mg/dL 7 0-105 Above high normal [facility] ([facility] ) Laboratory test finding (navigational concept) 133 meq/L 1 36-145 Below low normal [facility] ([facility] ) Laboratory test finding (navigational concept) 4.7 meq/L 3 .5-5.1 Normal (applies to non-numeric results) [facility] ([facility] Laboratory test finding (navigational concept) 4.0 mg/dL 4 .5-5.3 Below low normal [facility] ([facility] ) Laboratory test finding (navigational concept) 100 meq/L 9 8-109 Normal (applies to non-numeric results) [facility] ([facility] Laboratory test finding (navigational concept) 29.0 MM/L 2 3.0-27.0 Above high normal [facility] ([facility] ) Laboratory test finding (navigational concept) 19 mg/dL 8 -26 Normal (applies to non-numeric results) [facility] ([facility]) Laboratory test finding (navigational concept) 0.7 mg/dL 0 .6-1.3 Normal (applies to non-numeric results) [facility] ([facility] ID Date Data Source [id number] 04/20/2020 04:46:00 PM EST [facility] ([facility] Name Value Range Interpretation Code Description Data Leona rce(s) Supporting Document(s) Lipoprotein lipase [Enzymatic activity/volume] in Serum or P lasma 270 U/L 73-393 Normal (applies to non-numeric results) [facility] ([facility] ID Date Data Source [id number] 04/20/2020 04:46:00 PM EST [facility] ([facility] Name Value Range Interpretation Code Description Data Leona rce(s) Supporting Document(s) Alt/SGPT 20 U/L 12-78 Normal (applies to non-numeric resul ts) [facility] ([facility] Ast/Sgot 19 U/L 7-37 Normal (applies to non-numeric resul ts) [facility] ([facility] Bilirubin,Total Laboratory test result 0.2-1.0 Below low normal [facility] ([facility] Alkaline Phosphatase 87 U/L 45-117 Normal (applies to non-num ana rosa results) [facility] ([facility] Bilirubin,Direct Laboratory test result 0.0-0.2 Normal ( applies to non-numeric results) [facility] ([facility] ) Total Protein 6.7 GM/DL 6.4-8.2 Normal (applies to non-numeric re sults) [facility] ([facility] Albumin 3.6 GM/DL 3.2-5.2 Normal (applies to non-numeric resul ts) [facility] ([facility] Albumin/Globulin Ratio 1.2 1.2-2.2 Normal (applies to non-n umeric results) [facility] ([facility] ID Date Data Source [id number] 04/20/2020 04:46:00 PM EST [facility] ([facility] Name Value Range Interpretation Code Description Data Leona rce(s) Supporting Document(s) CPK Creatine Phosphokinase 81 U/L 26-192 Roselia l (applies to non-numeric results) [facility] ([facility] ) MB/CK Relative Index 1.23 Normal (applies to non-num ana rosa results) [facility] ([facility] <content>DIAGNOSIS CRITERIA</content>
<content>MMB ng/ml Relative Index (RI)</content>
<content>NON-AMI < or = 5 N/A</content>
<content>GIL ZONE > 5 < or = 4</content>
<content>AMI > 5 > 4</content>
<content></content> CK-MB Value Mass Laboratory test result Normal ( applies to non-numeric results) [facility] ([facility] ) Troponin I Laboratory test result Normal (applies to non-n umeric results) [facility] ([facility] <content>Troponin I Reference Interval f or Siemens [place] LOCI:</content>
<content></content>
<content>99th Percentile= 0.00-0.045 ng/ml</content>
<content></content>
<content>Risk Stratification:</content>
<content><= 0.10 ng/ml Decreased Risk for Adverse Clinical</content>
<content>Events.</content>
<content>0.10-1.50 ng/ml Increased Risk for Adverse Clinical</content>
<content>Events. Evaluation of additional</content>
<content>criterion and/or repeat testing in 2-6</content>
<content>hours is suggested to rule out myocardial</content>
<content>damage.</content>
<content>>= 1.50 ng/ml Indicative of Myocardial Injury.</content>
<content></content> ID Date Data Source [id number] 04/20/2020 04:46:00 PM EST [facility] ([facility] Name Value Range Interpretation Code Description Data Leona rce(s) Supporting Document(s) Hemoglobin A1c 8.0 % Normal (applies to non-numeric r esults) [facility] ([facility] <content>REFERENCE RANGES:</content><br/ ><content></content>
<content><=5.6% NORMAL</content>
<content>5.7-6.4% SUGGESTS IMPAIRED GLUCOSE METABOLISM/PREDIABETIC</content>
<content>>= 6.5% ABNORMAL</content>
<content></content> Estimated Average Glucose 183 mg/dL 60-110 Above high normal [facility] ([facility] ID Date Data Source [id number] 04/20/2020 04:46:00 PM EST [facility] ([facility] Name Value Range Interpretation Code Description Data Leona rce(s) Supporting Document(s) White Blood Count 12.3 10 4.0-10.0 Above high normal [facility] ([facility] Red Blood Count 4.66 10 4.00-5.40 Normal (applies to non-numeric results) [facility] ([facility] Hemoglobin 11.8 g/dL 12.0-15.5 Below low normal [facility] ( [facility] Hematocrit 40.2 % 36.0-47.0 Normal (applies to non-numeric resul ts) [facility] ([facility] Mean Corpuscular Hemoglobin 25.3 pg 27.0-33.0 Below low normal [facility] ([facility] Mean Corpuscular Volume 86.3 fl 80.0-96.0 Normal ( applies to non-numeric results) [facility] ([facility] ) Mean Corpuscular HGB Conc 29.4 g/dL 32.0-36.5 Below low normal [facility] ([facility] [facility] Red Cell Distribution Width 18.5 % 11.5-14.5 Above high normal [facility] ([facility] Platelet Count, Automated 296 10 150-450 Normal (applies to non-numeric results) [facility] ([facility] ) Neutrophils % 82.8 % 36.0-66.0 Above high normal MEDE NT ([facility] Lymph % 11.3 % 24.0-44.0 Below low normal [facility] ( [facility] Union % 4.5 % 2.0-8.0 Normal (applies to non-numeric resul ts) [facility] ([facility] Eos % 0.5 % 0.0-3.0 Normal (applies to non-numeric resul ts) [facility] ([facility] Baso % 0.2 % 0.0-1.0 Normal (applies to non-numeric resul ts) [facility] ([facility] Immature Granulocyte % 0.7 % 0-3.0 Normal (applies to non-n umeric results) [facility] ([facility] Nucleated Red Blood Cell % 0.0 % 0-0 Normal (applies to n on-numeric results) [facility] ([facility] Neutrophils # 10.2 10 1.5-8.5 Above high normal MEDE NT ([facility] Lymph # 1.4 10 1.5-5.0 Below low normal [facility] ( [facility] Union # 0.6 10 0.0-0.8 Normal (applies to non-numeric resul ts) [facility] ([facility] Baso # 0.0 10 0.0-0.2 Normal (applies to non-numeric resul ts) [facility] ([facility] Eos # 0.1 10 0.0-0.5 Normal (applies to non-numeric resul ts) [facility] ([facility] ID Date Data Source [id number] 04/08/2020 07:05:00 PM EST [facility] ([facility] Name Value Range Interpretation Code Description Data Leona rce(s) Supporting Document(s) Hemoglobin A1c/Hemoglobin.total in Blood 7.9 % [facility] ([facility]) <content>REFERENCE RANGES:</content><br/ ><content></content>
<content><=5.6% NORMAL</content>
<content>5.7-6.4% SUGGESTS IMPAIRED GLUCOSE METABOLISM/PREDIABETIC</content>
<content>>= 6.5% ABNORMAL</content>
<content></content>
<content></content> Estimated Average Glucose 180 mg/dL 60-110 [facility] ([facility]) ID Date Data Source [id number] 04/08/2020 07:05:00 PM EST [facility] ([facility] Name Value Range Interpretation Code Description Data Leona rce(s) Supporting Document(s) Appearance, Urine RFX Laboratory test result Nor mal (applies to non-numeric results) [facility] ([facility] ) Color, Urine RFX Laboratory test result Normal ( applies to non-numeric results) [facility] ([facility] ) Specific [place] Ur Auto RFX 1.022 1.002-1.035 Nor mal (applies to non-numeric results) [facility] ([facility] ) PH,Urine RFX 5.0 units 5.0-9.0 Normal (applies to non-numeric res ults) [facility] ([facility] Protein, Urine Auto RFX Laboratory test result N ormal (applies to non-numeric results) [facility] ([facility] ) Glucose, Urine (Ua) Auto RFX Laboratory test result Above high normal [facility] ([facility] Ketone, Urine Auto RFX Laboratory test result No rmal (applies to non-numeric results) [facility] ([facility] ) Urobilinogen, Urine Auto RFX 0.2 mg/dL 0.0-2.0 Nor mal (applies to non-numeric results) [facility] ([facility] ) Nitrite, Urine Auto RFX Laboratory test result N ormal (applies to non-numeric results) [facility] ([facility] ) Bilirubin, Urine Auto RFX Laboratory test result Normal (applies to non- numeric results) [facility] ([facility] ) Leukocyte Esterase Ur Auto RFX Laboratory test result Normal (applies to non- numeric results) [facility] ([facility] ) Blood, Urine Blood RFX Laboratory test result No rmal (applies to non-numeric results) [facility] ([facility] ) WBC, Urine Auto RFX 2 /HPF 0-3 Normal (applies to non-nume samantha results) [facility] ([facility] Bacteria, Urine Auto RFX Laboratory test result Normal (applies to non-numeric results) [facility] ([facility] ) RBC, Urine Auto RFX 2 /HPF 0-3 Normal (applies to non-nume samantha results) [facility] ([facility] Squam Epithelial Cell Ur Aurfx 0 /HPF 0-6 N ormal (applies to non-numeric results) [facility] ([facility] ) Mucus, Urine RFX Laboratory test result Normal ( applies to non-numeric results) [facility] ([facility] ) Hyaline Cast, Urine Auto RFX 0 /LPF 0-1 Normal (appl ies to non-numeric results) [facility] ([facility] ID Date Data Source [id number] 04/08/2020 07:05:00 PM EST [facility] ([facility] Name Value Range Interpretation Code Description Data Leona rce(s) Supporting Document(s) Hemoglobin A1c 7.9 % Normal (applies to non-numeric r esults) [facility] ([facility] <content>REFERENCE RANGES:</content><br/ ><content></content>
<content><=5.6% NORMAL</content>
<content>5.7-6.4% SUGGESTS IMPAIRED GLUCOSE METABOLISM/PREDIABETIC</content>
<content>>= 6.5% ABNORMAL</content>
<content></content> Estimated Average Glucose 180 mg/dL 60-110 Above high normal [facility] ([facility] ID Date Data Source [id number] 04/08/2020 06:27:00 PM EST [facility] ([facility]) Name Value Range Interpretation Code Description Data Leona rce(s) Supporting Document(s) Osmolality of Serum or Plasma 301 280-301 [facility] ([facility]) ID Date Data Source [id number] 04/08/2020 06:27:00 PM EST [facility] ([facility]) Name Value Range Interpretation Code Description Data Leona rce(s) Supporting Document(s) Beta hydroxybutyrate [Mass/volume] in Serum or Plasma 1.15 [facility] ([facility]) ID Date Data Source [id number] 04/08/2020 06:27:00 PM EST [facility] ([facility] Name Value Range Interpretation Code Description Data Leona rce(s) Supporting Document(s) Magnesium [Mass/volume] in Serum or Plasma 1.8 mg/dL 1.8-2 .4 Normal (applies to non-numeric results) [facility] ([facility] Laboratory test finding (navigational concept) 1.15 mg/dL Normal (applies to non-numeric results) [facility] ([facility]) Lipoprotein lipase [Enzymatic activity/volume] in Serum or P lasma 215 U/L 73-393 Normal (applies to non-numeric results) [facility] ([facility] Osmolality of Serum or Plasma 301 MOSM/KG 280-301 No rmal (applies to non-numeric results) [facility] ([facility] ) ID Date Data Source [id number] 04/08/2020 06:27:00 PM EST [facility] ([facility] Name Value Range Interpretation Code Description Data Leona rce(s) Supporting Document(s) Glucose, Fasting 333 mg/dL 70-100 Above high normal M EDENT ([facility] Creatinine For GFR 0.92 mg/dL 0.55-1.30 Normal (applies to non -numeric results) [facility] ([facility] Blood Urea Nitrogen 22 mg/dL 7-18 Above high normal [facility] ([facility] Sodium Level 136 meq/L 136-145 Normal (applies to non-numeric res ults) [facility] ([facility] Glomerular Filtration [...] Little GFR Left</content>
<content>ESRD GFR <15 on RISK CONTROL SPECIALIST</content>
<content></content> Potassium Serum 4.3 meq/L 3.5-5.1 Normal (applies to non-numeric results) [facility] ([facility] Chloride Level 98 meq/L 98-107 Normal (applies to non-numeric r esults) [facility] ([facility] Carbon Dioxide Level 31 meq/L 21-32 Normal (applies to non-num ana rosa results) [facility] ([facility] Calcium Level 9.1 mg/dL 8.8-10.2 Normal (applies to non-numeric re sults) [facility] ([facility] Anion Gap 7 meq/L 8-16 Below low normal [facility] ( [facility] ID Date Data Source [id number] 04/08/2020 06:27:00 PM EST [facility] ([facility] Name Value Range Interpretation Code Description Data Leona rce(s) Supporting Document(s) Alt/SGPT 22 U/L 12-78 Normal (applies to non-numeric resul ts) [facility] ([facility] Ast/Sgot 19 U/L 7-37 Normal (applies to non-numeric resul ts) [facility] ([facility] Alkaline Phosphatase 100 U/L 45-117 Normal (applies to non-num ana rosa results) [facility] ([facility] Bilirubin,Total Laboratory test result 0.2-1.0 Below low normal [facility] ([facility] Total Protein 6.1 GM/DL 6.4-8.2 Below low normal MEDEN T ([facility] Bilirubin,Direct Laboratory test result 0.0-0.2 Normal ( applies to non-numeric results) SHANNAN ([facility] ) Albumin/Globulin Ratio 1.1 1.2-2.2 Below low normal [facility] Albumin 3.2 GM/DL 3.2-5.2 Normal (applies to non-numeric resul ts) [facility] ([facility] ID Date Data Source [id number] 04/08/2020 06:27:00 PM EST [facility] ([facility] Name Value Range Interpretation Code Description Data Leona rce(s) Supporting Document(s) CPK Creatine Phosphokinase 102 U/L 26-192 Roselia l (applies to non-numeric results) SHANNAN ([facility] ) MB/CK Relative Index 1.57 Normal (applies to non-num ana rosa results) [facility]NAN ([facility] <content>DIAGNOSIS CRITERIA</content>
<content>MMB ng/ml Relative Index (RI)</content>
<content>NON-AMI < or = 5 N/A</content>
<content>GIL ZONE > 5 < or = 4</content>
<content>AMI > 5 > 4</content>
<content></content> CK-MB Value Mass 1.6 ng/mL Normal (applies to non-numeric results) SHANNAN ([facility] Troponin I Laboratory test result Normal (applies to non-n umeric results) [facility] ([facility] <content>Troponin I Reference Interval f or Siemens [place] LOCI:</content>
<content></content>
<content>99th Percentile= 0.00-0.045 ng/ml</content>
<content></content>
<content>Risk Stratification:</content>
<content><= 0.10 ng/ml Decreased Risk for Adverse Clinical</content>
<content>Events.</content>
<content>0.10-1.50 ng/ml Increased Risk for Adverse Clinical</content>
<content>Events. Evaluation of additional</content>
<content>criterion and/or repeat testing in 2-6</content>
<content>hours is suggested to rule out myocardial</content>
<content>damage.</content>
<content>>= 1.50 ng/ml Indicative of Myocardial Injury.</content>
<content></content> ID Date Data Source [id number] 04/08/2020 06:27:00 PM EST [facility] ([facility] Name Value Range Interpretation Code Description Data Leona rce(s) Supporting Document(s) White Blood Count 7.0 10 4.0-10.0 Normal (applies to non-numeri c results) [facility] ([facility] Hemoglobin 10.4 g/dL 12.0-15.5 Below low normal [facility] ( [facility] Red Blood Count 4.16 10 4.00-5.40 Normal (applies to non-numeric results) [facility] ([facility] Mean Corpuscular Volume 84.1 fl 80.0-96.0 Normal ( applies to non-numeric results) [facility] ([facility] ) Hematocrit 35.0 % 36.0-47.0 Below low normal [facility] ( [facility] Mean Corpuscular HGB Conc 29.7 g/dL 32.0-36.5 Below low normal [facility] ([facility] Mean Corpuscular Hemoglobin 25.0 pg 27.0-33.0 Below low normal [facility] ([facility] Red Cell Distribution Width 18.4 % 11.5-14.5 Above high normal [facility] ([facility] Neutrophils % 59.6 % 36.0-66.0 Normal (applies to non-numeric re sults) [facility] ([facility] Platelet Count, Automated 284 10 150-450 Normal (applies to non-numeric results) [facility] ([facility] ) Lymph % 32.1 % 24.0-44.0 Normal (applies to non-numeric resul ts) [facility] ([facility] Union % 5.9 % 0.0-8.0 Normal (applies to non-numeric resul ts) [facility] ([facility] Eos % 2.0 % 0.0-3.0 Normal (applies to non-numeric resul ts) [facility] ([facility] Baso % 0.1 % 0.0-1.0 Normal (applies to non-numeric resul ts) [facility] ([facility] Nucleated Red Blood Cell % 0.0 % 0-0 Normal (applies to n on-numeric results) [facility] ([facility] Immature Granulocyte % 0.3 % 0-3.0 Normal (applies to non-n umeric results) [facility] ([facility] Union # 0.4 10 0.0-0.8 Normal (applies to non-numeric resul ts) [facility] ([facility] Neutrophils # 4.1 10 1.5-8.5 Normal (applies to non-numeric re sults) [facility] ([facility] Lymph # 2.2 10 1.5-5.0 Normal (applies to non-numeric resul ts) [facility] ([facility] Eos # 0.1 10 0.0-0.5 Normal (applies to non-numeric resul ts) [facility] ([facility] Baso # 0.0 10 0.0-0.2 Normal (applies to non-numeric resul ts) [facility] ([facility] ID Date Data Source [id number] 04/08/2020 06:27:00 PM EST [facility] ([facility] Name Value Range Interpretation Code Description Data Leona rce(s) Supporting Document(s) Venous PH 7.383 units 7.330-7.430 Normal (applies to non-numeric res ults) [facility] ([facility] Venous Partial Pressure O2 42.0 mmHg 30.0-50.0 Roselia l (applies to non-numeric results) [facility] ([facility] ) Venous Partial Pressure Co2 52.7 mmHg 38.0-50.0 Above high normal [facility] ([facility] Venous Hco3 30.7 meq/L 23.0-27.0 Above high normal [facility] ([facility] Venous Total Co2 32.3 meq/L 24.0-28.0 Above high normal M [facility] ([facility] Venous Base Excess 4.7 Above high normal [facility] ([facility] Venous Standard Hco3 28.2 meq/L Normal (applies to non-num ana rosa results) [facility] ([facility] Venous O2 Saturation 74.1 % 60.0-80.0 Normal (applies to non-num ana rosa results) [facility] ([facility] ID Date Data Source [id number] 03/28/2020 09:10:00 AM EST [facility] ([facility]) Name Value Range Interpretation Code Description Data Leona rce(s) Supporting Document(s) C reactive protein [Mass/volume] in Serum or Plasma by High sensitivity method Laboratory test result 0.00-0.30 [facility] ID Date Data Source [id number] 03/28/2020 09:10:00 AM EST [facility] ([facility]) Name Value Range Interpretation Code Description Data Leona rce(s) Supporting Document(s) Procalcitonin [Mass/volume] in Serum or Plasma 0.18 [facility] ([facility]) ID Date Data Source [id number] 03/28/2020 09:10:00 AM EST [facility] ([facility]) Name Value Range Interpretation Code Description Data Leona rce(s) Supporting Document(s) Erythrocyte sedimentation rate by Westergren method 23 0-30 [facility] ([facility]) ID Date Data Source [id number] 03/28/2020 06:16:00 AM EST [facility] Name Value Range Interpretation Code Description Data Leona rce(s) Supporting Document(s) SARS coronavirus 2 RNA [Presence] in Res piratory specimen by DANIELA with probe detection NEGATIVE [facility] This lab was ordered by [facility] a nd reported by [facility]. ID Date Data Source [id number] 03/28/2020 05:11:00 AM EST [facility] ([facility]) Name Value Range Interpretation Code Description Data Leona rce(s) Supporting Document(s) Urine Culture Laboratory test result [facility] ([facility]) Urine Culture Laboratory test result [facility] ([facility]) ID Date Data Source [id number] 03/28/2020 03:33:00 AM EST [facility] ([facility]) Name Value Range Interpretation Code Description Data Leona rce(s) Supporting Document(s) Lactic Acid Level 1.5 0.4-2.0 [facility] ([facility]) ID Date Data Source [id number] 02/29/2020 07:44:00 PM EST [facility] Name Value Range Interpretation Code Description Data Leona rce(s) Supporting Document(s) SARS-CoV-2 (COVID 19) NEGATIVE - SARS-CoV-2 (COVID19) [facility] This lab was ordered by [facility] a nd reported by [facility]. ID Date Data Source [id number] 02/27/2020 11:39:00 AM EST [facility] ([facility], ) Name Value Range Interpretation Code Description Data Leona rce(s) Supporting Document(s) Creatinine For GFR 1.05 mg/dL 0.55-1.30 Normal (applies to non -numeric results) [facility] Glomerular Filtration Rate 55.3 Normal (applies to n on-numeric results) [facility], ) <content>Units are mL/min/1.73 m2</content>
<content></content>
<content>Chronic Kidney Disease Staging per NKF:</content>
<content></content>
<content>Stage I & II GFR >=60 Normal to Mildly Decreased</content>
<content>Stage III GFR 30- 59 Moderately Decreased</content>
<content>Stage IV GFR 15-29 Severely Decreased</content>
<content>Stage V GFR <15 Very Little GFR Left</content>
<content>ESRD GFR <15 on RISK CONTROL SPECIALIST</content>
<content></content> ID Date Data Source [id number] 02/27/2020 11:39:00 AM EST [facility] ([facility]) Name Value Range Interpretation Code Description Data Leona rce(s) Supporting Document(s) Urea nitrogen [Mass/volume] in Serum or Plasma 19 mg/dL 7-18 Above high normal [facility] ([facility]) ID Date Data Source [id number] 02/27/2020 11:39:00 AM EST [facility] ([facility]) Name Value Range Interpretation Code Description Data Leona rce(s) Supporting Document(s) Ferritin [Mass/volume] in Serum or Plasma 8 ng/mL 8-252 Normal (applies to non- numeric results) [facility] ([facility]) ID Date Data Source [id number] 02/27[facility]2020 11:39[facility]00 [facility] Name Value Range Interpretation Code Description Data Leona rce(s) Supporting Document(s) Total Iron Binding Capacity 433 ug/dL 250-450 Norm al (applies to non-numeric results) [facility] Iron (Fe) 30 ug/dL 50-170 Below low normal [facility] ( [facility]) Percent Saturation 6.9 % 13.2-45.0 Below low normal [facility] ([facility]) ID Date Data Source [id number] 02/27/2020 11:39:00 AM EST [facility] ([facility]) Name Value Range Interpretation Code Description Data Leona rce(s) Supporting Document(s) Red Blood Count 4.50 10 4.00-5.40 Normal (applies to non-numeric results) [facility] ([facility]) White Blood Count 6.3 10 4.0-10.0 Normal (applies to non-numeri c results) [facility] ([facility]) Hematocrit 36.6 % 36.0-47.0 Normal (applies to non-numeric resul ts) [facility]) Hemoglobin 10.9 g/dL 12.0-15.5 Below low normal [facility] ( [facility]) Mean Corpuscular HGB Conc 29.8 g/dL 32.0-36.5 Below low normal [facility] ([facility]) Mean Corpuscular Hemoglobin 24.2 pg 27.0-33.0 Below low normal [facility] ([facility]) Mean Corpuscular Volume 81.3 fl 80.0-96.0 Normal ( applies to non-numeric results) [facility] Platelet Count, Automated 356 10 150-450 Normal (applies to non-numeric results) [facility] ([facility]) Red Cell Distribution Width 17.3 % 11.5-14.5 Above high normal [facility] ([facility]) Lymph % 37.0 % 24.0-44.0 Normal (applies to non-numeric resul ts) [facility]) Neutrophils % 52.7 % 36.0-66.0 Normal (applies to non-numeric re sults) [facility]) Union % 6.2 % 0.0-5.0 Above high normal [facility] ([facility]) Eos % 3.2 % 0.0-3.0 Above high normal [facility] ([facility]) Immature Granulocyte % 0.3 % 0-3.0 Normal (applies to non-n umeric results) [facility]) Baso % 0.6 % 0.0-1.0 Normal (applies to non-numeric resul ts) [facility] ([facility]) Lymph # 2.3 10 1.5-5.0 Normal (applies to non-numeric resul ts) [facility]) Neutrophils # 3.3 10 1.5-8.5 Normal (applies to non-numeric re sults) [facility]) Nucleated Red Blood Cell % 0.0 % 0-0 Normal (applies to n on-numeric results) [facility]) [place] # 0.4 10 0.0-0.8 Normal (applies to non-numeric resul ts) [facility] ([facility]) Eos # 0.2 10 0.0-0.5 Normal (applies to non-numeric resul ts) [facility] ([facility], ) Baso # 0.0 10 0.0-0.2 Normal (applies to non-numeric resul ts) [facility] ([facility], ) ID Date Data Source [id number] 01/18/2020 04:42:00 PM EST [facility] ([facility]) Name Value Range Interpretation Code Description Data Leona rce(s) Supporting Document(s) Lactate [Moles/volume] in Venous blood 1.11 0.4-2.0 [facility] ([facility]) ID Date Data Source [id number] 01/18/2020 04:31:00 PM EST [facility] ([facility]) Name Value Range Interpretation Code Description Data Leona rce(s) Supporting Document(s) aPTT in Blood by Coagulation assay 28.3 24.2-38.5 [facility] ([facility]) ID Date Data Source [id number] 01/18/2020 04:31:00 PM EST [facility] ([facility]) Name Value Range Interpretation Code Description Data Leona rce(s) Supporting Document(s) INR in Platelet poor plasma by Coagulation assay 0.91 MEDENT ([facility]) ID Date Data Source [id number] 01/18/2020 04:31:00 PM EST MEDENT ([facility]) Name Value Range Interpretation Code Description Data Leona rce(s) Supporting Document(s) Prothrombin time (PT) 12.4 12.5-14.3 MEDENT ( [facility]) ID Date Data Source [id number] 01/01/2020 10:05:00 [place] [address] RESPIRATORY CARE REPORT ==== ---------NAME------- NUMBER SEX AGE ADMIT DISC. XRAY# F/C NIDA De Souza [id number] F 69 12/31/19 12/31/19 [id number] [facility] E/R DATE OF : 1950 M/R# [id number] #: [id number] TR-02 LOCATION: EMERGENCY DEPT [facility] [address] [facility] LETE:12/31/19 16:15 CJM [id number] PHYSICIAN: ZOHREH WAITE Name Value Range Interpretation Code Description Data Leona rce(s) Supporting Document(s) ID Date Data Source [id number] 01/01/2020 10:02:00 AM EST [facility] [address] [place] [address] PHONE: [phone] FAX: [phone] Name .................. : MARY SCHWARZA Nolvia Acct Number.................. : [id number] ROOM. ................. : TR- Number ................... : [id number] Stay type ............. : E/R Discharge Date......... ... : Admit Date ......... : 12/31/19 Admit Phys .................... : ZOHREH WAITE Date of ....... : 1950 Family Phys ................... : VASHTI S Phone .................. : [phone] Age ................................ : 69 Film# .................. .:[id number] Sex ................................. : F Unsigned transcriptions are preliminary reports and do not represent a medical or legal document CHEST PORTABLE [id number] COMPLETE:12/31/19 15:38 [id number] Reason(s): Chest Pain PORTABLE CHEST X-RAY: HISTORY: [...] rce(s) Supporting Document(s) ID Date Data Source [id number] 12/31/2019 03:26:00 PM EST [facility] 1 OrderSheet [facility] Emergency Department [address] [place] [address] Phone #: ext- [phone] 12/31/2019 15:23 Patient: SARMAD HERNANDEZ Sex: F : 1950 Age: 69yWEIGHT:79.3 kg (S) HEIGHT:60 inches (S) BMI:34.1ALLERGIES: Tape allergyCHIEF COMPLAINT: chest painDIAGNOSIS: BronchospasmLAB ORDERSOrder Description Priority Entered Acknowledged InitialedUrinalysis (Clean STAT 15:37 12/31/2019 16:17 Shawanda Courtney R.N. Physician;BNP STAT 15:37 12/31/2019 15:44 Michael [...] Description Priority Entered Acknowledged Initialed 2 OrderSheet [facility] Emergency Department [address] [place] [address] Phone #: ext- [phone] 12/31/2019 15:23 Patient: SARMAD HERNANDEZ Sex: F : 1950 Age: 69yAspirin PO 15:39 12/31/2019 15:44 Roz,Chewable 81 mg Michael Venerus Jaren R.N.162 mg (NOW) Physician;DuoNeb 3 mL X2 15:49 12/31/2019 15:52 G roves,Doses: 6 mL (3 mL Michael Venerus Jaren R.N.X2 Doses) Physician;SOLU-Medrol 125 15:49 12/31/2019 15:53 Roz,mg IV X1 Dose: 125 Michael Venerus Jaren R.N.mg (X1) Physician;DuoNeb Neb Tx 3 17:03 12/31/2019 17:27 Robert Courtney (NOW) Michael Eastman R.N. Physician;GENERAL ORDERSOrder Description [...] R.N. (18:17 12/31/2019)][Electronically signed by Michael Bruner (18:45 12/31/2019)][Electronically locked by Jaren Courtney R.N. (18:17 12/31/2019)] Name Value Range Interpretation Code Description Data Leona rce(s) Supporting Document(s) ID Date Data Source [id number] 12/31/2019 03:26:00 PM EST [facility] 1 Medication Reconciliation Report [facility] Emergency Department [address] [place] [address] Phone #: ext- [phone] 12/31/2019 15:23 Patient: [...] 12/31/2019 3:52:00 PM 2 Medication Reconciliation Report [facility] Emergency Department [address] [place] [address] Phone #: ext- [phone] 12/31/2019 15:23 Patient: SARMAD HERNANDEZ Sex: F [...] 1 inhaler. Refills: 1. Substitution permitted.Pharmacy - [facility] - [address] [place] [address]. . -- Physician ManoloPrednisone 10mg Tapersig: take 6 tabs PO each day for 2 days, thenTake 5 tabs PO each day for 2 days, thenTake 4 tabs PO each day for 2 days, thenTake 3 tabs PO each day for 2 days, thenTake 2 tabs PO each day for 2 days, thenTake 1 tab PO each day for 2 days.Disp# 42. -- Michael Bruner, Physician Name Value Range Interpretation Code Description Data Leona rce(s) Supporting Document(s) ID Date Data Source [id number] 12/31/2019 03:26:00 PM [facility] 1 Medication Administration Record [facility] Emergency Department [address] [place] [address] Phone #: ext- [phone] 12/31/2019 15:23 Patient: SARMAD HERNANDEZ Sex: F : 1950 Age: 69yWeight: 79.3 kgHeight/Length: 60 inBMI: 34.1ALLERGIES: Tape allergy Date/Time Medication Administered Medication OrderedGiven ASPIRIN CHEWABLE 81 MG [PO] Aspirin PO Chewable 81 mg 69310:44 12/31/2019 Dose: 81 mg Tablets PO mg (NOW)Jaren Courtney R.N.Given DUONEB [NEB TX] DuoNeb 3 mL X2 Doses: 6 mL (315:52 12/31/2019 Dose: 2 unit dose Nebulizer Neb TX mL X2 Doses)Jaren Courtney R.N.Given SOLU-MEDROL [IVP] SOLU-Medrol 125 mg IV X1 Dose:15:53 12/31/2019 (METHYLPREDNISOLONE SODIUM 125 mg (X1)Jaren Courtney R.NJanuary SUCC) Dose: 125 mg IVP Site: #1 right ACGiven DUONEB [NEB TX] DuoNeb Neb Tx 3 mL (NOW)17:27 12/31/2019 Dose: 1 unit dose Nebulizer Jaren Kay R.N. Name Value Range Interpretation Code Description Data Leona rce(s) Supporting Document(s) ID Date Data Source [id number] 12/31/2019 03:26:00 PM [facility] 1 General Instructions [facility] Emergency Department [address] [place] [address] Phone #: ext- [phone] 12/31/2019 15:23 Patient: SARMAD HERNANDEZ Sex: F [...] 1 inhaler. Refills: 1. Substitution permitted.Pharmacy - [facility] - [address] ; [place] [address]. .Prednisone 10mg Tapersig: take 6 tabs PO [...] patient. ADDITIONAL INFORMATIONBronchospasm (Adult) 2 General Instructions [facility] Emergency Department [address] [place] [address] Phone #: ext- [phone] 12/31/2019 15:23 Patient: [...] you drink extra fluids. 3 General Instructions [facility] Emergency Department [address] [place] [address] Phone #: ext- [phone] 12/31/2019 15:23 Patient: [...] your healthcare provider.Follow-up careFollow up with yo ur healthcare provider, or as advised.If you are [...] breath Increased wheezing or shortness of breath 5922-3311 [employer]. [address] [place] [address]. All rights reserved. This information is not intended as asubstitute for professional medical care. Always follow your healthcare professional's instructions.Asthma (Adult)Asthma is a disease where the medium and small air passages within the lung go into spasm andrestrict the flow of air. Inflammation and swelling of the airways cause further blockage. During an 4 General Instructions [facility] Emergency Department [address] [place] [address] Phone #: ext- [phone] 12/31/2019 15:23 Patient: [...] better after a few 5 General Instructions [facility] Emergency Department [address] [place] [address] Phone #: ext- [phone] 12/31/2019 15:23 Patient: [...] 80%) 15 minutes after using inhaler medicine.Call [phone] if any of the following occur Trouble walking or talking because of shortness of breath If you use a peak flow meter as part of an Asthma Action Plan and you are still in the red zone (less than 50%) 15 minutes after using inhaler medicine Lips or fingernails turning gil or blue 5315-1247 [employer]. [address] [place] [address]. All rights reserved. This information is not intended as a 6 General Instructions [facility] Emergency Department [address] [place] [address] Phone #: ext- [phone] 12/31/2019 15:23 Patient: SARMAD HERNANDEZ Sex: F : 1950 Age: 69ysubstitute for professional medical care. Always follow your healthcare professional's instructions. You have been given the following additional information: Bronchospasm (Adult) Asthma, Acute (Adult)(Electronically signed by Michael Bruner, Physician 12/31/2019 18:45) Name Value Range Interpretation Code Description Data Leona rce(s) Supporting Document(s) ID Date Data Source [id number] 12/31/2019 03:26:00 PM EST [facility] 1 Clinical Report - Nurses [facility] Emergency Department [address] [place] [address] Phone #: dhc- [phone] 12/31/2019 15:23 Patient: SARMAD HERNANDEZ Sex: F [...] (3 days). ( wheezes, chest pain reproducable).Treatment ENGINEERING SURVEYOR:None. --15:35 12/31/19 Fay Martinez R.N.15:24 12/31/19. BP: [...] R.N.ADDITIONAL SURGERIES: 2 Clinical Report - Nurses [facility] Emergency Department [address] [place] [address] Phone #: ext- [phone] 12/31/2019 15:23 Patient: SARMAD HERNANDEZ Sex: F : 1950 Age: 69y Appendectomy. [...] plan discussed with patient. Patient has a ac-dza-gmdetmebslv (DNR) (dnr/dni). --15:36 12/31/19 Fay Martinez R.N.PHYSICAL ASSESSMENTGENERAL / NEURO / PSYCH: Alert. Oriented X 4. Appears anxious.RESPIRATORY: Respirations not labored.CVS: Normal sinus rhythm noted. 3 Clinical Report - Nurses [facility] Emergency Department [address] [place] [address] Phone #: ext- [phone] 12/31/2019 15:23 Patient: [...] --17:08 12/31/19 Ashley Sears RN 17:27 12/31/2019 Aldo Neb [place] Nebulizer 1 unit dose given. --17:27 12/31/19 Jaren Courtney R.N. 4 Clinical Report - Nurses [facility] Emergency Department [address] [place] [address] Phone #: ext- [phone] 12/31/2019 15:23 Patient: [...] shown to the ED physician. --17:43 12/31/19 [place] [employer], Davey, Tech1.DISPOSITION / DISCHARGE No learning barriers present. Written instructions provided in Cymraes. The patient was discharged by the physician. [...] rce(s) Supporting Document(s) ID Date Data Source [id number] 12/31/2019 03:26:00 PM EST [facility] 1 Clinical Report - Physicians/Mid Levels [facility] Emergency Department [address] [place] [address] Phone #: ext- [phone] 12/31/2019 15:23 Patient: [...] roomair. Temp: 97.8 F. Pain level now: 510. Have been reviewed and appear to be correct. Hypertensive.Heart rate normal. Respiratory rate normal. Temperature normal. Oxygen saturation normal.Appearance: Alert. Oriented X3. Anxious. Patient in mild distress. In distress.Eyes: Pupils equal, round and reactive to light. Eyes normal inspection. 2 Clinical Report - Physicians/Mid Levels [facility] Emergency Department [address] [place] [address] Phone #: ext- [phone] 12/31/2019 15:23 Patient: [...] 12/31/2019 17:39) In Progress Exam CHEST PORTABLE [facility] [address] [place] [address] PHONE: [phone] FAX: [phone] Name .................. : MARY De Souza Acct Number.................. : [id number] ROOM. ................. : TR-02 MR Number ................... : [id number] Stay type ............. : E/R Discharge Date......... ... : Admit Date ......... : 12/31/19 Admit Phys .................... : TRISHS BR Date of ....... : 1950 Family Phys ................... : VASHTI Connelly Phone .................. : [phone] Age ..................... ........... : 69 Film# .................. .:[id number] Sex ................................. : F Unsigned transcriptions are preliminary reports and do not represent a medical or legal document CHEST PORTABLE [id number] COMPLETE:12/31/19 15:38 99909 Reason(s): Chest Pain Shortness of Breath PORTABLE CHEST X-RAY: HISTORY: Chest pain. COMPARISON: None. FINDINGS: Normal heart size and pulmonary vessels. Clear lungs. No pleural effusions. No acute or focal osseous abnormal. IMPRESSION: No active disease is seen in the chest. 3 Clinical Report - Physicians/Mid Levels [facility] Emergency Department [address] [place] [address] Phone #: ext- [phone] 12/31/2019 15:23 Patient: SARMAD HERNANDEZ Sex: F : 1950 Age: 69y Electronically Reviewed and Signed By DCTNAME , SIGNDATE, APM Transcribe Initials: HAZEL , Transcribe Date: 12/31/19 17:35, Dictation Date: <<REPDIST>> Page 1of 1Urinalysis: (POONAM: 12/31/2019 16:05) ( MsgRcvd 12/31/2019 16:31) Final results Test Result Flag [...] 125)CBC w Diff: (POONAM: 12/31/2019 15:35) ( MsgRcvd 12/31/2019 16:13) [...] 40.0) 4 Clinical Report - Physicians/Mid Levels [facility] Emergency Department [address] [place] [address] Phone #: ext- [phone] 12/31/2019 15:23 Patient: [...] Male GFR Interprentation 20-49 yrs >60 mL/min Buffun31-97 yrs >56 mL/min Normal 60-69 yrs >49 mL/min Normal 70-79yrs>42 mL/min Normal 80 and above >35 mL/min Normal Female GFRInterpretation 20-39 yrs >60 mL/min Normal 40-49 yrs >58 mL/minNormal 50-59 yrs >51 mL/min Normal 60-69 yrs >45 mL/min Fikxni32-18 yrs >39 mL/min Normal 80 and above >32 mL/min NormalD-Dimer: (POONAM: 12/31/2019 15:35) ( MsgRcvd 12/31/2019 16:13) Final results Test Result Flag Units (Reference) D-DIMER QUANT <0.27 ug/mL (0.27 - 0.50)Troponin-T: (POONAM: 12/31/2019 15:35) ( MsgRcvd 12/31/2019 16:20) Final results Test Result Flag Units (Reference) TROPONIN T <0.01 NG/ML (0.00 - 0.10) TROPONIN T0.1 ng/ml Recommended as the clinical threshold value Kanchan Casper 5 Clinical Report - Physicians/Mid Levels [facility] Emergency Department [address] [place] [address] Phone #: ext- [phone] 12/31/2019 15:23 Patient: [...] inhaler. Refills: 1. Substitution permitted. Pharmacy - [facility] - [address] [place] [address]. . Prednisone 10mg Taper sig: take 6 tabs PO each day for 2 days, then Take 5 tabs PO each day for 2 days, then Take 4 tabs PO each day for 2 days, then Take 3 tabs PO each day for 2 days, then 6 Clinical Report - Physicians/Mid Levels [facility] Emergency Department [address] [place] [address] Phone #: ext- [phone] 12/31/2019 15:23 Patient: SARMAD HERNANDEZ Sex: F [...] rce(s) Supporting Document(s) ID Date Data Source [id number] 12/31/2019 04:05:00 PM EST MEDENT ([facility] Name Value Range Interpretation Code Description Data Leona rce(s) Supporting Document(s) Urinalysis Laboratory test result ME DENT ([facility] SOURCE: Clean Catch Clarity Laboratory test result MEDENT ([facility] SOURCE: Clean Catch Source Laboratory test result MED[facility] ([facility] SOURCE: Clean Catch Color Laboratory test result MED[facility] ([facility] SOURCE: Clean Catch Glucose 250 Abnormal (applies to non-numeric res ults) [facility] ([facility] SOURCE: Clean Catch pH 6.5 5-9 [facility] ([facility] SOURCE: Clean Catch Spec [place] 1.010 1.001-1.030 MED[facility] ([facility] SOURCE: Clean Catch Ketone Laboratory test result MED[facility] ([facility] SOURCE: Clean Catch Protein Laboratory test result [facility] ([facility] SOURCE: Clean Catch Bilirubin Laboratory test result ME DENT ([facility] SOURCE: Clean Catch Nitrite Laboratory test result MEDENT ([facility] SOURCE: Clean Catch Blood Laboratory test result MED[facility] ([facility] SOURCE: Clean Catch Leuk Est 25 [facility] ([facility] SOURCE: Clean Catch Urobilinogen Laboratory test result MED[facility] ([facility] SOURCE: Clean Catch Microscopic Laboratory test result M EDENT ([facility] SOURCE: Clean Catch WBC Laboratory test result [facility] ([facility] SOURCE: Clean Catch Epithelial Laboratory test result ME DENT ([facility] SOURCE: Clean Catch ID Date Data Source [id number] 12/31/2019 04:31:00 PM [facility] Name Value Range Interpretation Code Description Data Leona rce(s) Supporting Document(s) URINALYSIS [facility] URINALYSIS SOURCE Clean Catch [facility] COLOR yellow NORMAL: Yellow [facility] CLARITY clear NORMAL: Clear [facility] Specific gravity of Urine by Test strip 1.010 1.001 - 1.030 [facility] pH 6.5 5 - 9 [facility] Glucose [Mass/volume] in Urine by Test strip 250 NORMAL: Negat [facility] A [facility] Bilirubin.total [Presence] in Urine by Test strip NEG NORMAL: Negative [facility] Ketones [Presence] in Urine by Test strip NEG NORMAL: Negative [facility] Protein [Mass/volume] in Urine by Test strip NEG NORMAL: Negat [facility] Nitrite [Presence] in Urine by Test strip NEG NORMAL: Negative [facility] BLOOD NEG NORMAL: Negative [facility] Leukocyte esterase [Presence] in Urine by Test strip 25 ROSELIA L: Negative [facility] Urobilinogen [Mass/volume] in Urine by Test strip NOR less olivia n 1.0 mg/dL [facility] MICROSCOPIC See Below [facility] ital WBC 1 - 3 NORMAL: NONE SEEN [facility] EPITHELIAL FEW NORMAL: NONE SEEN [facility] ID Date Data Source [id number] 12/31/2019 03:35:00 PM EST MEDENT ([facility] Name Value Range Interpretation Code Description Data Leona e(s) Supporting Document(s) Comprehensive [facility] Laboratory test result [...] [facility] BUN/Creat 23 8-27 MED[facility] ([facility] Creatinine 0.9 mg/dL 0.7-1.5 MEDENT ([facility] BUN 21 mg/dL 7-21 MEDENT ([facility] Albumin 4.2 g/dL 3.9-5.0 MED[facility] ([facility] Globulin 2.2 GM/DL 2.4-3.2 Below low normal MEDENT ( [facility] Total Protein 6.4 g/dL 6.3-8.2 MED[facility] ([facility] A/G Ratio 1.9 0.8-2.0 MED[facility] ([facility] Total Bili Laboratory test result 0.2-1.3 ME DENT ([facility] Calcium 9.2 mg/dL 8.4-10.2 MED[facility] ([facility] Sgot/Ast 17 U/L 5-40 MED[facility] ([facility] Alkaline Phos 88 U/L 38-126 [facility] ([facility] Anion Gap 7.0 mmol/L 8.0-16.0 Below low normal MED[facility] ( [facility] SGPT/Alt 12 U/L 7-56 MED[facility] ([facility] Non-Aa GFR Laboratory test result ME DENT ([facility] Afr Amer GFR Laboratory test result MEDENT ([facility] Male GFR Interprentation 20-49 yrs [...] >32 mL/min Normal Age 69 yrs [facility] ([facility] ID Date Data Source [id number] 12/31/2019 03:35:00 PM EST MEDENT ([facility] Name Value Range Interpretation Code Description Data Leona rce(s) Supporting Document(s) Troponin T.cardiac [Mass/volume] in Serum or Plasma Laborato ry test result 0.00-0.10 [facility] TROPONIN T 0.1 ng/ml Recommended as the clinical th reshold value for Troponin T. Natriuretic peptide.B prohormone N-Terminal [Mass/volu me] in Serum or Plasma 144 pg/mL 0-125 Above high normal [facility] ([facility] ID Date Data Source [id number] 12/31/2019 03:35:00 PM EST MEDENT ([facility] Name Value Range Interpretation Code Description Data Leona rce(s) Supporting Document(s) CBC W/Automated Diff Laboratory test result MEDENT ([facility] COMPLETE BLOOD COUNT RBC 4.15 10^6/uL 4.20-5.40 Below low normal MED[facility] ([facility] WBC 6.5 10^3/uL 4.2-11.0 MEDENT ([facility] Hemoglobin 10.1 g/dL 12.0-16.0 Below low normal MEDENT ( [facility] MCV 80.2 fL 81.0-101 Below low normal MED[facility] ( [facility] Hematocrit 33.3 % 37.0-47.0 Below low normal MEDENT ( [facility] MCH 24.3 pg 27.0-34.0 Below low normal MEDENT ( [facility] Platelets 328 10^3/uL 150-450 [facility] MCHC 30.3 g/dL 31.0-36.0 Below low normal MEDENT ( [facility] MPV 10.2 fL 7.4-10.4 MED[facility] ([facility] RDW 17.0 % 11.5-14.5 Above high normal [facility] ([facility] Lymph 28.0 % 25.0-40.0 [facility] ([facility] [place] 7.4 % 3.0-8.0 [facility] ([facility] Neut 60.0 % 37.0-80.0 [...] 2.00-6.90 [facility] ([facility] #Union 0.48 10^3/uL 0.00-0.90 MED[facility] ([facility] [...] RBC Morph Laboratory test result ME DENT ([facility] ID Date Data Source [id number] 12/31/2019 03:35:00 PM EST [facility] ([facility] Name Value Range Interpretation Code Description Data Leona rce(s) Supporting Document(s) Fibrin D-dimer [Presence] in Platelet poor plasma Laboratory test result 0.27-0.50 SHANNAN ([facility] ID Date Data Source [id number] 12/31/2019 04:31:00 PM EST [facility] Name Value Range Interpretation Code Description Data Leona rce(s) Supporting Document(s) COMPREHENSIVE METABOLIC PANEL [facility] COMPREHENSIVE METABOLIC PANEL Sodium [Moles/volume] in Serum or Plasma 140 mEq/L 134 - 153 [facility] Potassium [Moles/volume] in Serum or Plasma 4.6 mEq/L 3.6 - 5.0 [facility] Chloride [Moles/volume] in Serum or Plasma 104 mEq/L 98 - 107 [facility] Carbon dioxide, total [Moles/volume] in Serum or Plasma 29 MEQ/L 22 - 30 [facility] Glucose [Mass/volume] in Serum or Plasma 143 MG/DL 65 - 110 H [facility] BUN 21 MG/DL 7 - 21 [facility] Creatinine [Mass/volume] in Serum or Plasma 0.9 MG/DL 0.7 - 1.5 [facility] BUN/CREAT 23 8 - 27 [facility] al Protein [Mass/volume] in Serum or Plasma 6.4 G/DL 6.3 - 8.2 [facility] Albumin [Mass/volume] in Serum or Plasma 4.2 G/DL 3.9 - 5.0 [facility] Globulin [Mass/volume] in Serum by calculation 2.2 GM/DL 2.4 - 3.2 L [facility] A/G RATIO 1.9 0.8 - 2.0 [facility] Calcium [Mass/volume] in Serum or Plasma 9.2 MG/DL 8.4 - 10.2 [facility] Bilirubin.total [Mass/volume] in Serum or Plasma <0.7 MG/DL 0.2 - 1.3 [facility] Alkaline phosphatase [Enzymatic activity/volume] in Serum or Plasma 88 U/L 38 - 126 [facility] Aspartate aminotransferase [Enzymatic activity/volume] in Serum or Plasma 17 U/L 5 - 40 [facility] Alanine aminotransferase [Enzymatic activity/volume] in Seru m or Plasma 12 U/L 7 - 56 [facility] Anion gap 3 in Serum or Plasma 7.0 mmol/L 8.0 - 16.0 L [facility]GE 69 [facility] GFR >60 mL/min [facility] AFR AMER GFR >60 [facility] Male GFR In terprentation 20-49 [...] >32 mL/min Normal ID Date Data Source [id number] 12/31/2019 04:26:00 PM [facility] Name Value Range Interpretation Code Description Data Leona rce(s) Supporting Document(s) BNP 144 PG/ML 0 - 125 H [facility] ID Date Data Source [id number] 12/31/2019 04:20:00 PM [facility] Name Value Range Interpretation Code Description Data Leona rce(s) Supporting Document(s) TROPONIN T <0.01 NG/ML 0.00 - 0.10 [facility] TROPONIN T0.1 ng/ml Recommended as the c linical threshold value forTroponin T. ID Date Data Source [id number] 12/31/2019 04:13:00 PM [facility] Name Value Range Interpretation Code Description Data Leona rce(s) Supporting Document(s) CBC W/AUTOMATED DIFF [facility] COMPLETE BLOOD COUNT Leukocytes [#/volume] in Blood by Automated count 6.5 10^3/uL 4.2 - 1 1.0 [facility] Erythrocytes [#/volume] in Blood by Automated count 4.15 10^6/uL 4. 20 - 5.40 L [facility] Hemoglobin [Mass/volume] in Blood 10.1 g/dL 12.0 - 16.0 L [facility] Hematocrit [Volume Fraction] of Blood by Automated count 33.3 % 3 7.0 - 47.0 L [facility] Erythrocyte mean corpuscular volume [Entitic volume] by Auto mated count 80.2 fL 81.0 - 101 L [facility] Erythrocyte mean corpuscular hemoglobin [Entitic mass] by Automated count 24.3 pg 27.0 - 34.0 L [facility] Erythrocyte mean corpuscular hemoglobin concentration [Mass/volume] by Automated count 30.3 g/dL 31.0 - 36.0 L [facility] Erythrocyte distribution width [Ratio] by Automated count 17.0 % 11.5 - 14.5 H [facility] Platelets [#/volume] in Blood by Automated count 328 10^3/uL 150 - 45 0 [facility] Platelet mean volume [Entitic volume] in Blood by Automated count 10.2 fL 7.4 - 10.4 [facility] Neutrophils/100 leukocytes in Blood by Automated count 60.0 % 37. 0 - 80.0 [facility] Lymphocytes/100 leukocytes in Blood by Manual count 28.0 % 25.0 - 40.0 [facility] Monocytes/100 leukocytes in Blood by Automated count 7.4 % 3.0 - 8.0 [facility] Eosinophils/100 leukocytes in Blood by Automated count 3.9 % 0.0 - 7.0 [facility] Basophils/100 leukocytes in Blood by Automated count 0.5 % 0.0 - 2.5 [facility] %IG 0.2 % 0.0 - [facility] % 0.0 - 0.0 [facility] al Neutrophils [#/volume] in Blood by Automated count 3.88 10^3/uL 2.00 - 6.90 [facility] Lymphocytes [#/volume] in Blood by Automated count 1.81 10^3/uL 0.60 - 3.40 [facility] Monocytes [#/volume] in Blood by Automated count 0.48 10^3/uL 0.00 - 0.90 [facility] Eosinophils [#/volume] in Blood by Automated count 0.25 10^3/uL 0.00 - 0.70 [facility] Basophils [#/volume] in Blood by Automated count 0.03 10^3/uL 0.00 - 0.20 [facility] #IG 0.01 10^3/uL 0.00 - 0.10 [facility] #NRBC 0.00 10^3/uL 0.00 - 0.00 [facility] MANUAL DIFF NOT INDICATED [facility] RBC MORPH NOT INDICATED [facility] ID Date Data Source [id number] 12/31/2019 04:12:00 PM EST [facility] Name Value Range Interpretation Code Description Data Leona rce(s) Supporting Document(s) Fibrin D-dimer FEU [Mass/volume] in Platelet poor plasma <0. 27 ug/mL 0.27 - 0.50 [facility] ID Date Data Source [id number] 12/28/2019 04:34:00 PM EST [facility] ([facility] Name Value Range Interpretation Code Description Data Leona rce(s) Supporting Document(s) Jules Fernando virus capsid IgM Ab [Presence] in Serum Laborat ory test result 0.0-35.9 Normal (applies to non-numeric results) [facility] ([facility] <content>Negative <36.0</content>
<content>Equivocal 36.0 - 43.9</content>
<content>Positive >43.9</content>
<content>Performed at: [facility]</content>
<content>[address] [place] [address] [phone]</content>
<content>Clinical Services Director: Virginie Acevedo MD, Phone: [phone]</content>
<content></content> ID Date Data Source [id number] 12/28/2019 04:34:00 PM EST [facility] ([facility] Name Value Range Interpretation Code Description Data Leona rce(s) Supporting Document(s) Blood Urea Nitrogen 22 mg/dL 7-18 Above high normal [facility] ([facility] Creatinine For GFR 0.86 mg/dL 0.55-1.30 Normal (applies to non -numeric results) [facility] ([facility] Glucose, Fasting 63 mg/dL 70-100 Below low normal ME D[facility] ([facility] Potassium Serum 4.0 meq/L 3.5-5.1 Normal (applies to non-numeric results) [facility] ([facility] Glomerular Filtration Rate Laboratory test result Normal (applies to non- numeric results) [facility] ([facility] ) <content>Units are mL/min/1.73 m2</content>
<content></content>
<content>Chronic Kidney Disease Staging per NKF:</content>
<content></content>
<content>Stage I & II GFR >=60 Normal to Mildly Decreased</content>
<content>Stage III GFR 30- 59 Moderately Decreased</content>
<content>Stage IV GFR 15-29 Severely Decreased</content>
<content>Stage V GFR <15 Very Little GFR Left</content>
<content>ESRD GFR <15 on RISK CONTROL SPECIALIST</content>
<content></content> Sodium Level 139 meq/L 136-145 Normal (applies to non-numeric res ults) [facility] ([facility] Carbon Dioxide Level 28 meq/L 21-32 Normal (applies to non-num ana rosa results) [facility] ([facility] Chloride Level 105 meq/L 98-107 Normal (applies to non-numeric r esults) [facility] ([facility] Anion Gap 6 meq/L 8-16 Below low normal [facility] ( [facility] Calcium Level 9.6 mg/dL 8.8-10.2 Normal (applies to non-numeric re sults) [facility] ([facility] Alt/SGPT 17 U/L 12-78 Normal (applies to non-numeric resul ts) [facility] ([facility] Ast/Sgot 16 U/L 7-37 Normal (applies to non-numeric resul ts) [facility] ([facility] Bilirubin,Total 0.2 mg/dL 0.2-1.0 Normal (applies to non-numeric results) [facility] ([facility] Alkaline Phosphatase 88 U/L 45-117 Normal (applies to non-num ana rosa results) [facility] ([facility] Total Protein 6.6 GM/DL 6.4-8.2 Normal (applies to non-numeric re sults) [facility] ([facility] Albumin/Globulin Ratio 1.2 1.2-2.2 Normal (applies to non-n umeric results) [facility] ([facility] Albumin 3.6 GM/DL 3.2-5.2 Normal (applies to non-numeric resul ts) [facility] ([facility] ID Date Data Source [id number] 12/28/2019 04:34:00 PM EST [facility] ([facility] Name Value Range Interpretation Code Description Data Leona rce(s) Supporting Document(s) Hemoglobin 10.5 g/dL 12.0-15.5 Below low normal [facility] ( [facility] Red Blood Count 4.32 10 4.00-5.40 Normal (applies to non-numeric results) [facility] ([facility] White Blood Count 8.7 10 4.0-10.0 Normal (applies to non-numeri c results) [facility] ([facility] Hematocrit 35.1 % 36.0-47.0 Below low normal [facility] ( [facility] Mean Corpuscular Volume 81.3 fl 80.0-96.0 Normal ( applies to non-numeric results) [facility] ([facility] ) Mean Corpuscular HGB [...] % 36.0-66.0 Above high normal [facility] ([facility] Platelet Count, Automated 344 10 150-450 Normal (applies to non-numeric results) [facility] ([facility] ) [place] % 6.7 % 0.0-5.0 Above high normal [...] resul ts) [facility] ([facility] [place] # 0.6 10 0.0-0.8 Normal (applies to non-numeric resul ts) [facility] ([facility] Eos # 0.1 10 0.0-0.5 Normal (applies to non-numeric resul ts) [facility] ([facility] Baso # 0.0 10 0.0-0.2 Normal (applies to non-numeric resul ts) [facility] ([facility] ID Date Data Source [id number] 12/28/2019 02:51:00 PM EST [facility] ([facility] Name Value Range Interpretation Code Description Data Leona rce(s) Supporting Document(s) Color Urine Laboratory test result M EDENT ([facility] Appearance of Urine Laboratory test result [facility] ([facility] Specific [place] 1.020 1.00-1.03 [facility] ([facility] PH Urine 6.5 5.0-8.0 [facility] Glucose Urine Laboratory test result [facility] ([facility] Bilirubin.total [Presence] in Urine by Test strip Laboratory test res ult [facility] ([facility] Blood Urine Laboratory test result M [facility] ([facility] Ketones Laboratory test result [facility] ([facility] Protein Urine Laboratory test result [facility] ([facility] Nitrite Laboratory test result [facility] ([facility] Urobilinogen 0.2 EU/dl 0.2-1.0 [facility] ([facility] Leukocytes Laboratory test result ME D[facility] ([facility] ID Date Data Source [id number] 12/28/2019 02:50:00 PM EST [facility] ([facility] Name Value Range Interpretation Code Description Data Leona rce(s) Supporting Document(s) Urine Culture, Routine Laboratory test result [facility] ([facility] SRC:URINE Bacteria identified in Urine by Culture Laboratory test result [facility] ([facility] SRC:URINE ID Date Data Source [id number] 12/28/2019 01:37:00 PM EST [facility] ([facility] Name Value Range Interpretation Code Description Data Leona rce(s) Supporting Document(s) Glucometer-[facility] 82 mg/dL 65-109 [facility] ([facility] Procedure Social History Code Duration Value Status Description Data Source(s ) Smoking 10/10/2020 12:00:00 AM EDT Patient is a former smoker completed Patient is a former smoker [facility] ([facility] ) Smoking 09/03/2020 12:00:00 AM EDT Patient is a former smoker completed Patient is a former smoker [facility] ([facility]) Vital Signs ID Date Data Source [id number] Name Value Range Interpretation Code Description Data Source(s) Systolic blood pressure 124 mm[Hg] 124 mm[Hg] M [facility] ( [facility] Diastolic blood pressure 70 mm[Hg] 70 mm[Hg] [facility] ( [facility] Body temperature 97.5 [degF] 97.5 [degF] [facility] ( [facility] Heart rate 70 /min 70 /min [facility] ( [facility] Respiratory rate 18 /min 18 /min [facility] ( [facility] Body height 60.5 [in_i] 60.5 [in_i] [facility] ([facility] 5'0.50" Body weight 166.00 [lb_av] 166.00 [lb_av] [facility] T ([facility] [place] body weight 100 [lb_av] 100 [lb_av] [facility] T ([facility] Body mass index (BMI) [Ratio] 31.9 kg/m2 31.9 k g/m2 [facility] ( [facility] Oxygen saturation in Arterial blood by Pulse oximetry 97 % 97 % [facility] ( [facility] Systolic blood pressure 126 mm[Hg] 126 mm[Hg] M EDENT ( [facility] Diastolic blood pressure 70 mm[Hg] 70 mm[Hg] [facility] ( [facility] Body temperature 97.4 [degF] 97.4 [degF] [facility] ([facility] Heart rate 70 /min 70 /min [facility] ( [facility] Respiratory rate 14 /min 14 /min [facility] ( [facility] Body height 60.5 [in_i] 60.5 [in_i] [facility] 5'0.50" Body weight 170.00 [lb_av] 170.00 [lb_av] [facility] T ([facility] [place] body weight 100 [lb_av] 100 [lb_av] [facility] T ([facility] Body mass index (BMI) [Ratio] 32.7 kg/m2 32.7 k g/m2 [facility] ([facility] Oxygen saturation in Arterial blood by Pulse oximetry 97 % 97 % [facility] ([facility] Systolic blood pressure 148 mm[Hg] 148 mm[Hg] M EDENT ([facility]) Diastolic blood pressure 86 mm[Hg] 86 mm[Hg] [facility] ([facility]) Body temperature 98.4 [degF] 98.4 [degF] [facility] ([facility]) Body weight 77.225 kg 77.225 kg [facility] ([facility]) [place] body weight 100 [lb_av] 100 [lb_av] [facility] T ([facility]) Body height 59 [in_i] 59 [in_i] [facility] ([facility]) 4'11" Body weight 170.25 [lb_av] 170.25 [lb_av] [facility] T ([facility]) Body mass index (BMI) [Ratio] 34.4 kg/m2 34.4 k g/m2 [facility] ([facility]) Body surface area Derived from formula 1.72 m2 1.72 m2 [facility] ([facility]) Systolic blood pressure 140 mm[Hg] 140 mm[Hg] M EDENT ([facility] Diastolic blood pressure 64 mm[Hg] 64 mm[Hg] [facility] ([facility] Body temperature 97.0 [degF] 97.0 [degF] [facility] ([facility] Heart rate 72 /min 72 /min [facility] ([facility] Respiratory rate 18 /min 18 /min [facility] ( [facility] Body height 60.5 [in_i] 60.5 [in_i] [facility] ([facility] 5'0.50" Body weight 172.00 [lb_av] 172.00 [lb_av] [facility] T ([facility] [place] body weight 100 [lb_av] 100 [lb_av] [facility] T ([facility] Body mass index (BMI) [Ratio] 33.0 kg/m2 33.0 k g/m2 [facility] ([facility] Oxygen saturation in Arterial blood by Pulse oximetry 98 % 98 % [facility] ([facility] [place] body weight 100 [lb_av] 100 [lb_av] [facility] T ([facility] Body mass index (BMI) [Ratio] 33.2 kg/m2 33.2 k g/m2 [facility] ([facility] Respiratory rate 18 /min 18 /min [facility] ( [facility] Systolic blood pressure 124 mm[Hg] 124 mm[Hg] M EDENT ([facility] Diastolic blood pressure 84 mm[Hg] 84 mm[Hg] [facility] ([facility] Body temperature 98.4 [degF] 98.4 [degF] [facility] ([facility] Heart rate 78 /min 78 /min [facility] ([facility] Body height 60.5 [in_i] 60.5 [in_i] [facility] ([facility] 5'0.50" Body weight 173.00 [lb_av] 173.00 [lb_av] [facility] T ([facility] Oxygen saturation in Arterial blood by Pulse oximetry 97 % 97 % [facility] ([facility] Body temperature 97.4 [degF] 97.4 [degF] [facility] ([facility], ) Body height 60.5 [in_i] 60.5 [in_i] [facility] ([facility] 5'0.50" Body weight 176.00 [lb_av] 176.00 [lb_av] [facility] T ([facility] [place] body weight 100 [lb_av] 100 [lb_av] [facility] T ([facility] Body mass index (BMI) [Ratio] 33.8 kg/m2 33.8 k g/m2 [facility] ([facility] Oxygen saturation in Arterial blood by Pulse oximetry 99 % 99 % [facility] ([facility] Systolic blood pressure 122 mm[Hg] 122 mm[Hg] M EDENT ([facility] Diastolic blood pressure 74 mm[Hg] 74 mm[Hg] [facility] ([facility] Body temperature 98.0 [degF] 98.0 [degF] [facility] ([facility] Heart rate 90 /min 90 /min [facility] ([facility] Respiratory rate 18 /min 18 /min [facility] ( [facility] Systolic blood pressure 112 mm[Hg] 112 mm[Hg] M ED[facility] ([facility] Diastolic blood pressure 72 mm[Hg] 72 mm[Hg] [facility] ([facility] Body temperature 97.5 [degF] 97.5 [degF] [facility] ([facility] Heart rate 78 /min 78 /min [facility] ([facility] Respiratory rate 18 /min 18 /min [facility] ( [facility] Body height 60.5 [in_i] 60.5 [in_i] [facility] ([facility] 5'0.50" Body weight 182.00 [lb_av] 182.00 [lb_av] [facility] T ([facility] [place] body weight 100 [lb_av] 100 [lb_av] [facility] T ([facility] Body mass index (BMI) [Ratio] 35.0 kg/m2 35.0 k g/m2 [facility] ([facility] Oxygen saturation in Arterial blood by Pulse oximetry 97 % 97 % [facility] ([facility] Body surface area Derived from formula 1.77 m2 1.77 m2 [facility] ([facility], ) Body weight 82.102 kg 82.102 kg [facility] ([facility], ) Systolic blood pressure 155 mm[Hg] 155 mm[Hg] M EDENT ([facility], ) Diastolic blood pressure 78 mm[Hg] 78 mm[Hg] [facility] ([facility]) Heart rate 73 /min 73 /min [facility] ([facility]) Body height 59 [in_i] 59 [in_i] [facility] ([facility]) 4'11" Body weight 181.00 [lb_av] 181.00 [lb_av] MED[facility] T ([facility]) Body mass index (BMI) [Ratio] 36.6 kg/m2 36.6 k g/m2 [facility] [place] body weight 100 [lb_av] 100 [lb_av] [facility] T ([facility]) Systolic blood pressure 121 mm[Hg] 121 mm[Hg] M EDENT ([facility] Diastolic blood pressure 64 mm[Hg] 64 mm[Hg] [facility] ([facility]) Heart rate 70 /min 70 /min [facility] ([facility]) Body height 59.1 [in_i] 59.1 [in_i] [facility] ([facility]) 4'11.10" Body weight 183.19 [lb_av] 183.19 [lb_av] [facility] T ([facility]) Body mass index (BMI) [Ratio] 36.9 kg/m2 36.9 k g/m2 [facility] ([facility]) Oxygen saturation in Arterial blood by Pulse oximetry 98 % 98 % [facility] ([facility]) Systolic blood pressure 139 mm[Hg] 139 mm[Hg] M EDENT ([facility]) Diastolic blood pressure 82 mm[Hg] 82 mm[Hg] [facility] ([facility]) Heart rate 65 /min 65 /min [facility] ([facility]) Respiratory rate 13 /min 13 /min [facility] ( [facility]) Oxygen saturation in Arterial blood by Pulse oximetry 97 % 97 % [facility] ([facility]) Body temperature 98.0 [degF] 98.0 [degF] [facility] ([facility]) Body weight 185.00 [lb_av] 185.00 [lb_av] [facility] T ([facility]) Body height 59 [in_i] 59 [in_i] [facility] ([facility]) 4'11" Body mass index (BMI) [Ratio] 37.4 kg/m2 37.4 k g/m2 [facility] ([facility]) Systolic blood pressure 114 mm[Hg] 114 mm[Hg] M ED[facility] ([facility] Diastolic blood pressure 70 mm[Hg] 70 mm[Hg] [facility] ([facility] Body temperature 98.1 [degF] 98.1 [degF] [facility] ([facility] Heart rate 60 /min 60 /min [facility] ([facility] Body height 60.5 [in_i] 60.5 [in_i] [facility] ([facility] 5'0.50" Respiratory rate 14 /min 14 /min [facility] ( [facility] Body weight 185.00 [lb_av] 185.00 [lb_av] [facility] T ([facility] [place] body weight 100 [lb_av] 100 [lb_av] [facility] T ([facility] Body mass index (BMI) [Ratio] 35.5 kg/m2 35.5 k g/m2 [facility] ([facility] Oxygen saturation in Arterial blood by Pulse oximetry 97 % 97 % [facility] ([facility] Body height 59.1 [in_i] 59.1 [in_i] [facility] ([facility]) 4'11.10" Systolic blood pressure 114 mm[Hg] 114 mm[Hg] M EDENT ([facility]) Body weight 185.25 [lb_av] 185.25 [lb_av] [facility] T ([facility] ) Body mass index (BMI) [Ratio] 37.3 kg/m2 37.3 k g/m2 [facility] ([facility] ) Oxygen saturation in Arterial blood by Pulse oximetry 98 % 98 % [facility] ([facility]) Diastolic blood pressure 76 mm[Hg] 76 mm[Hg] [facility] ([facility]) Heart rate 76 /min 76 /min [facility] ([facility]) Body temperature 97.1 [degF] 97.1 [degF] [facility] Body height 59 [in_i] 59 [in_i] [facility] 4'11" Body weight 188.00 [lb_av] 188.00 [lb_av] [facility] T ([facility]) Body mass index (BMI) [Ratio] 38.0 kg/m2 38.0 k g/m2 [facility] ([facility]) [place] body weight 100 [lb_av] 100 [lb_av] [facility] T ([facility]) Body weight 85.277 kg 85.277 kg [facility] ([facility]) Body surface area Derived from formula 1.80 m2 1.80 m2 [facility] ([facility]) Systolic blood pressure 149 mm[Hg] 149 mm[Hg] M ENT ([facility]) Diastolic blood pressure 78 mm[Hg] 78 mm[Hg] [facility] ([facility]) Body height 59 [in_i] 59 [in_i] [facility] ([facility]) 4'11" Body weight 188.00 [lb_av] 188.00 [lb_av] [facility] ([facility]) Body mass index (BMI) [Ratio] 38.0 kg/m2 38.0 k g/m2 [facility] ([facility]) [place] body weight 100 [lb_av] 100 [lb_av] [facility] ([facility]) Body weight 85.277 kg 85.277 kg [facility] ([facility]) Body surface area Derived from formula 1.80 m2 1.80 m2 [facility] ([facility]) Body mass index (BMI) [Ratio] 37.4 kg/m2 37.4 k g/m2 [facility] ([facility]) Systolic blood pressure 149 mm[Hg] 149 mm[Hg] M [facility] ([facility]) Diastolic blood pressure 80 mm[Hg] 80 mm[Hg] [facility] Heart rate 73 /min 73 /min [facility] ([facility]) Body height 59 [in_i] 59 [in_i] [facility] ([facility]) 4'11" Body weight 185.38 [lb_av] 185.38 [lb_av] [facility] ([facility]) [place] body weight 100 [lb_av] 100 [lb_av] [facility] ([facility]) Body weight 84.086 kg 84.086 kg [facility] ([facility]) Body surface area Derived from formula 1.79 m2 1.79 m2 [facility] ([facility]) Diastolic blood pressure 81 mm[Hg] 81 mm[Hg] [facility] ([facility]) Body height 59 [in_i] 59 [in_i] [facility] 4'" Body weight 184.00 [lb_av] 184.00 [lb_av] [facility] ([facility]) Body mass index (BMI) [Ratio] 37.2 kg/m2 37.2 k g/m2 [facility] ([facility]) [place] body weight 100 [lb_av] 100 [lb_av] [facility] ([facility]) Body weight 83.462 kg 83.462 kg [facility] ([facility]) Body surface area Derived from formula 1.78 m2 1.78 m2 [facility] ([facility]) Systolic blood pressure 116 mm[Hg] 116 mm[Hg] [facility] Systolic blood pressure 119 mm[Hg] 119 mm[Hg] [facility] ([facility]) Diastolic blood pressure 57 mm[Hg] 57 mm[Hg] [facility] ([facility]) Heart rate 64 /min 64 /min [facility] ([facility]) Body height 59 [in_i] 59 [in_i] [facility] ([facility]) 4'11" Body weight 180.38 [lb_av] 180.38 [lb_av] [facility] ([facility]) Body mass index (BMI) [Ratio] 36.4 kg/m2 36.4 k g/m2 [facility] ([facility]) [place] body weight 100 [lb_av] 100 [lb_av] [facility] ([facility]) Body weight 81.818 kg 81.818 kg [facility] ([facility]) Body surface area Derived from formula 1.77 m2 1.77 m2 [facility] ([facility]) Systolic blood pressure 136 mm[Hg] 136 mm[Hg] [facility] ([facility]) Diastolic blood pressure 74 mm[Hg] 74 mm[Hg] [facility] ([facility]) Body height 59 [in_i] 59 [in_i] [facility] ([facility]) 4'11" Body weight 185.00 [lb_av] 185.00 [lb_av] [facility] ([facility]) Body mass index (BMI) [Ratio] 37.4 kg/m2 37.4 k g/m2 [facility] ([facility]) [place] body weight 100 [lb_av] 100 [lb_av] [facility] ([facility]) Body weight 83.916 kg 83.916 kg [facility] ([facility]) Body surface area Derived from formula 1.78 m2 1.78 m2 [facility] ([facility]) Body temperature 96.9 [degF] 96.9 [degF] [facility] ([facility] ) Body temperature 96.8 [degF] 96.8 [degF] [facility] ([facility] ) Body temperature 97.2 [degF] 97.2 [degF] [facility] ([facility] ) Body height 60 [in_i] 60 [in_i] [facility] ([facility]) 5'0" Body weight 186.50 [lb_av] 186.50 [lb_av] [facility] ([facility]) Body mass index (BMI) [Ratio] 36.4 kg/m2 36.4 k g/m2 [facility] ([facility]) Systolic blood pressure 108 mm[Hg] 108 mm[Hg] M [facility] ([facility], [facility]) Diastolic blood pressure 56 mm[Hg] 56 mm[Hg] [facility] ([facility], [facility]) Heart rate 75 /min 75 /min [facility] ([facility], [facility]) Respiratory rate 18 /min 18 /min [facility] ( [facility], [facility]) Oxygen saturation in Arterial blood by Pulse oximetry 96 % 96 % [facility] ([facility], [facility]) Body temperature 97.0 [degF] 97.0 [degF] [facility] ([facility]) Body weight 185.00 [lb_av] 185.00 [lb_av] [facility] ([facility], [facility]) Systolic blood pressure 128 mm[Hg] 128 mm[Hg] [facility] Diastolic blood pressure 66 mm[Hg] 66 mm[Hg] [facility], ) Body height 59 [in_i] 59 [in_i] [facility] ([facility]) 4'11" Body weight 191.00 [lb_av] 191.00 [lb_av] [facility] ([facility]) Body mass index (BMI) [Ratio] 38.6 kg/m2 38.6 k g/m2 [facility] ([facility], ) [place] body weight 100 [lb_av] 100 [lb_av] [facility] ([facility], ) Body weight 86.638 kg 86.638 kg [facility] ([facility]) Body surface area Derived from formula 1.81 m2 1.81 m2 [facility] ([facility], ) Systolic blood pressure 124 mm[Hg] 124 mm[Hg] M [facility] ([facility] Body height 60.5 [in_i] 60.5 [in_i] [facility] ([facility] 5'0.50" Body weight 188.00 [lb_av] 188.00 [lb_av] [facility] T ([facility] [place] body weight 100 [lb_av] 100 [lb_av] MARGIE Mcclelland ([facility] Body mass index (BMI) [Ratio] 36.1 kg/m2 36.1 k g/m2 [facility] ([facility] Oxygen saturation in Arterial blood by Pulse oximetry 97 % 97 % [facility] ([facility] Diastolic blood pressure 70 mm[Hg] 70 mm[Hg] [facility] ([facility] Body temperature 98.5 [degF] 98.5 [degF] [facility] ([facility] Heart rate 72 /min 72 /min [facility] ([facility] Respiratory rate 16 /min 16 /min [facility] ( [facility]
[2021-01-06 23:20] LABS: BASO % 0.5 % (0.0-1.0); EOS # 0.2 10^3/uL (0.0-0.5); EOS % 1.8 % (0.0-3.0); HEMATOCRIT 42.9 % (36.0-47.0); HEMOGLOBIN 13.6 g/dl (12.0-15.5); LYMPH % 33.3 % (24.0-44.0); MEAN CORPUSCULAR HEMOGLOBIN 27.3 pg (27.0-33.0); MEAN CORPUSCULAR HGB CONC 31.7 g/dl (32.0-36.5); MONO # 0.5 10^3/uL (0.0-0.8); MONO % 5.6 % (2.0-8.0); NEUTROPHILS # 5.2 10^3/uL (1.5-8.5); NEUTROPHILS % 58.6 % (36.0-66.0); PLATELET COUNT, AUTOMATED 351 10^3/uL (150-450); RED BLOOD COUNT 4.99 10^6/uL (4.00-5.40); WHITE BLOOD COUNT 8.9 10^3/uL (4.0-10.0)
[2021-01-06 23:46] LABS: ALBUMIN 3.5 GM/DL (3.2-5.2); ALT/SGPT 22 U/L (12-78); BILIRUBIN,TOTAL 0.3 MG/DL (0.2-1.0); BLOOD UREA NITROGEN 24 MG/DL (7-18); CALCIUM LEVEL 9.2 MG/DL (8.8-10.2); CARBON DIOXIDE LEVEL 26 MEQ/L (21-32); CHLORIDE LEVEL 101 MEQ/L (98-107); CREATININE FOR GFR 0.93 MG/DL (0.55-1.30); GLOMERULAR FILTRATION RATE > 60.0 (>39); GLUCOSE, FASTING 239 MG/DL (70-100); POTASSIUM SERUM 3.9 MEQ/L (3.5-5.1); SODIUM LEVEL 137 MEQ/L (136-145); TOTAL PROTEIN 6.9 GM/DL (6.4-8.2)
--- OUTSIDE RECORDS SUMMARY | 2021-01-07 05:25 | CCD ---
Author Author [facility] Organization [facility] Address Unknown Phone Unavailable Care Team Providers Care Search Engine Optimization Consultant Name Role Phone Ramon KINGSTON MD [...] Unavailable Ramon KINGSTON MD Unavailable Unavailable Ramon KINSGTON MD Unavailable Unavailable Ramon KINGSTON MD Unavailable [...] JAMISON ZAPATA Unavailable Unavailable VASHTI H JAMISON ZAPAAT Unavailable Unavailable VASHTI H JAMISON ZAPATA Unavailable [...] Unavailable GHULAM, M DEBBY PA Unavailable Unavailable BARBabatunde OG MD Unavailable Unavailable BARLICHAUGABabatunde MD Unavailable Unavailable BARLICHAUGABabatunde MD Unavailable Unavailable BARLICHAUGABabatunde MD Unavailable Unavailable BARBabatunde OG MD Unavailable Unavailable Babatunde SANTILLAN MD Unavailable Unavailable Babatunde SANTILLAN MD Unavailable Unavailable JONGUGABabatunde MD Unavailable Unavailable JONGUGABabatunde MD Unavailable Unavailable JONGUGABabatunde MD Unavailable Unavailable BARLICHAUGABabatunde MD Unavailable Unavailable BARLICHAUGABabatunde MD Unavailable Unavailable BARLICHAUGABabatunde MD Unavailable Unavailable JONGUGABabatunde MD Unavailable Unavailable BARLICHAUGABabatunde MD Unavailable Unavailable JONGUGABabatunde MD Unavailable Unavailable JONGUGABabatunde MD Unavailable Unavailable JONGUGABabatunde MD Unavailable Unavailable JONGUGABabatunde MD Unavailable Unavailable JONGUGABabatunde MD Unavailable Unavailable JONGUGABabatunde MD Unavailable Unavailable BARLICHAUGABabatunde MD Unavailable Unavailable JONGUGABabatunde MD Unavailable Unavailable JONGUGABabatunde MD Unavailable Unavailable JONGUGABabatunde MD Unavailable Unavailable BARLICHAUGABabatunde MD Unavailable Unavailable JONGUGABabatunde MD Unavailable Unavailable JONGUGABabatunde MD Unavailable Unavailable JONGUGABabatunde MD Unavailable Unavailable JONGUGABabatunde MD Unavailable Unavailable JONGUGABabatunde MD Unavailable Unavailable [...] JAIME PA Unavailable Unavailable EVER, B RM ARTIST CONSULTANT Unavailable Unavailable EVER, B RM ARTIST CONSULTANT Unavailable Unavailable EVER, B RM ARTIST CONSULTANT Unavailable Unavailable EVER, B RM ARTIST CONSULTANT Unavailable Unavailable EVER, B RM ARTIST CONSULTANT Unavailable Unavailable EVER, B RM ARTIST CONSULTANT Unavailable Unavailable EVER, B RM ARTIST CONSULTANT Unavailable Unavailable EVER, B RM ARTIST CONSULTANT Unavailable Unavailable EEVR, B RM ARTIST CONSULTANT Unavailable Unavailable EVER, B RM ARTIST CONSULTANT Unavailable Unavailable EVER, B RM ARTIST CONSULTANT Unavailable Unavailable EVER, B RM ARTIST CONSULTANT Unavailable Unavailable EVER, B RM ARTIST CONSULTANT Unavailable Unavailable EVER, B RM ARTIST CONSULTANT Unavailable Unavailable EVER, B RM ARTIST CONSULTANT Unavailable Unavailable EVER, B RM ARTIST CONSULTANT Unavailable Unavailable EVER, B RM ARTIST CONSULTANT Unavailable Unavailable EVER, B RM ARTIST CONSULTANT Unavailable Unavailable EVER, B RM ARTIST CONSULTANT Unavailable Unavailable EVER, B RM ARTIST CONSULTANT Unavailable Unavailable EVER, B RM ARTIST CONSULTANT Unavailable Unavailable EVER, B RM ARTIST CONSULTANT Unavailable Unavailable EVER, B RM ARTIST CONSULTANT Unavailable Unavailable EVER, B RM ARTIST CONSULTANT Unavailable Unavailable EVER, B RM ARTIST CONSULTANT Unavailable Unavailable EVER, B RM ARTIST CONSULTANT Unavailable Unavailable EVER, B RM ARTIST CONSULTANT Unavailable Unavailable EVER, B RM ARTIST CONSULTANT Unavailable Unavailable EVER, B RM ARTIST CONSULTANT Unavailable Unavailable EVER, B RM ARTIST CONSULTANT Unavailable Unavailable EVER, B RM ARTIST CONSULTANT Unavailable Unavailable EVER, B RM ARTIST CONSULTANT Unavailable Unavailable EVER, B RM ARTIST CONSULTANT Unavailable Unavailable EVER, B RM ARTIST CONSULTANT Unavailable Unavailable EVER, B RM ARTIST CONSULTANT Unavailable Unavailable EVER, B RM ARTIST CONSULTANT Unavailable Unavailable EVER, B RM ARTIST CONSULTANT Unavailable Unavailable EVER, B RM ARTIST CONSULTANT Unavailable Unavailable EVER, B RM ARTIST CONSULTANT Unavailable Unavailable EVER, B RM ARTIST CONSULTANT Unavailable Unavailable EVER, B RM ARTIST CONSULTANT Unavailable Unavailable EVER, B RM ARTIST CONSULTANT Unavailable Unavailable EVER, B RM ARTIST CONSULTANT Unavailable Unavailable EVER, B RM ARTIST CONSULTANT Unavailable Unavailable EVER, B RM ARTIST CONSULTANT Unavailable Unavailable EVER, B RM ARTIST CONSULTANT Unavailable Unavailable EVER, B RM ARTIST CONSULTANT Unavailable Unavailable EVER, B RM ARTIST CONSULTANT Unavailable Unavailable EVER, B RM ARTIST CONSULTANT Unavailable Unavailable EVER, B RM ARTIST CONSULTANT Unavailable Unavailable EVER, B RM ARTIST CONSULTANT Unavailable Unavailable EVER, B RM ARTIST CONSULTANT Unavailable Unavailable EVER, B RM ARTIST CONSULTANT Unavailable Unavailable EVER, B RM ARTIST CONSULTANT Unavailable Unavailable EVER, B RM ARTIST CONSULTANT Unavailable Unavailable EVER, B RM ARTIST CONSULTANT Unavailable Unavailable EVER, B RM ARTIST CONSULTANT Unavailable Unavailable EVER, B RM ARTIST CONSULTANT Unavailable Unavailable EVER, B RM ARTIST CONSULTANT Unavailable Unavailable EVER, B RM ARTIST CONSULTANT Unavailable Unavailable EVER, B RM ARTIST CONSULTANT Unavailable Unavailable EVER, B RM ARTIST CONSULTANT Unavailable Unavailable Fish, B Dilia ZAPATA Unavailable [...] Dilia ZAPATA Unavailable Unavailable Fish, B Dilia ZPAATA Unavailable Unavailable Fish, B Dilia ZAPATA Unavailable [...] Unavailable Ramon KINGSTON MD Unavailable Unavailable Ramon KINSGTON MD Unavailable Unavailable Ramon KINGSTON MD Unavailable [...] is protected by Article 27-F of the [facility] Public Health law. If you continue you may have access to information: Regarding HIV / AIDS; Provided by facilities licensed or operated by the [facility] Office of Mental Health; or Provided by the [facility] Office for People With Developmental Disabilities. If such information is present, then the following [facility] mandated warning applies: This information [...] law may result in a fine or half-way sentence or both. A general authorization for the release of medical or other information is NOT sufficient authorization for further disc losure. Allergies and Adverse Reactions Type Description Substance Reaction Status Data Source(s ) Drug Allergy NKDA NKDA [facility] ([facility] Family History Family Member Name Family Member Gender Family Member Status Date o f Status Description Data Source(s) Unknown Unknown Problem [facility] ([facility]) father,mother,sister Unknown Unknown Problem [facility] ([facility]) Unknown Female Problem [facility] ([facility]) Unknown Female Problem [facility] ([facility] Unknown Female Problem [facility] ([facility]) Unknown Female Problem [facility] ([facility]) Unknown Female Problem [facility] ([facility]) Unknown Female Problem [facility] ([facility]) Unknown Female Problem [facility] ([facility] Encounters Encounter Providers Location Date Indications Data Source(s ) Outpatient Attender: JAMISON KINGSTON MD [facility] 11:00:00 AM EDT [facility] ([facility] Outpatient Attender: JAMISON KINGSTON MD [facility] 11/2020 10:40:00 AM EDT [facility] ([facility] Outpatient Attender: LIANE Barnes/Farideh/Rakesh/ Reindl 10/29/2020 11:15:00 AM EDT MED[facility] ([facility], ) Outpatient Attender: JAMISON KINGSTON MD [place] 11:00:00 AM EDT [facility] ([facility] Outpatient Attender: JAMISON KINGSTON MD [place] 11:15:00 AM EDT [facility] Outpatient Attender: Jamison Barnes/Farideh/Rakesh/Re indl 10/17/2020 01:45:00 PM EDT MED[facility] ([facility], ) Outpatient Attender: Ganga Cain [facility] 10/10/2020 09:30:0 0 AM EDT [facility] ([facility] Outpatient Attender: JAMISON KINGSTON MD [place] 02:00:00 PM EDT [facility] ([facility] Outpatient Attender: LIANE Barnes/Farideh/Rakesh/ Reindl 09/12/2020 10:45:00 AM EDT [facility] ([facility] Outpatient Attender: RM CURTIS ARTIST CONSULTANT Physical Therapy 10:45:00 AM EDT MED[facility] ([facility]) Outpatient Attender: JAIME Calvert marcial 09/03/2020 05:30:00 PM EDT [facility] ([facility] Outpatient Attender: JAMISON KINGSTON MD [place] 02/2020 10:20:00 AM EDT MED[facility] ([facility] OFFICE OUTPATIENT NEW 60 MINUTES Attender: Dilia Cain MD Physi michael Therapy 07/16/2020 01:00:00 PM EDT [facility] ([facility]) Outpatient Attender: JAMISON KINGSTON MD [facility] 11:15:00 AM EDT [facility] ([facility] Office Visit Attender: LIANE Barnes/Farideh/Rakesh/ Reinjavon 06/20/2020 10:00:00 AM EDT [facility] ([facility] Outpatient Attender: JAMISON KINGSTON MD [facility] 11:30:00 AM EDT [facility] ([facility] Office Visit Attender: LIANE Barnes/Farideh/Rakesh/ Reindl 06/06/2020 09:30:00 AM EDT [facility] ([facility] Outpatient Attender: JAMISON KINGSTON MD [facility] 03/2020 02:00:00 PM EDT [facility] ([facility] Office Visit Attender: LIANE Barnes/Farideh/Rakesh/ Reindl 05/23/2020 09:45:00 AM EDT [facility] ([facility] Outpatient Attender: JAMISON [facility] Office 01/2021 02:00:00 PM EST MED[facility] ([facility] Outpatient Attender: LIANE Barnes/Farideh/Rakesh/ Reindl 04/18/2020 12:45:00 PM EST [facility] ([facility] Outpatient Attender: JAMISON [facility] 02:40:00 PM EST MED[facility] ([facility] Outpatient Attender: CATHIE Barnes/Farideh/Ang el/Reindl 03/18/2020 08:00:00 AM EST [facility] ([facility] OFFICE OUTPATIENT VISIT 15 MINUTES Attender: Christophe VALENCIA Physical Therapy 03/12/2020 09:30:00 AM EST MED[facility] ([facility]) OFFICE OUTPATIENT VISIT 15 MINUTES Attender: Christophe VALENCIA Physical Therapy 02/27/2020 09:30:00 AM EST MED[facility] ([facility]) OFFICE OUTPATIENT VISIT 15 MINUTES Attender: DEBBY VALENCIA Ph ysical Therapy 01/22/2020 04:45:00 PM EST MED[facility] ([facility]) Outpatient Attender: JAIME ceja 01/21/2020 12:15:00 PM EST [facility] ([facility]) Emergency Attender: MICHAEL BRUNER MDConsultant: JAMISON OSWALD MD 12/31/2019 03:26:00 PM EST - 12/31/2019 06:17:00 PM EST [facility] Patient discharged. Outpatient Attender: Jaime VALENCIA [facility] 06/2019 12:15:00 PM EST MED[facility] ([facility] Outpatient Attender: CATHIE Barnes/Farideh/Ang el/Reindl 12/13/2019 11:30:00 AM EDT [facility] ([facility] Outpatient Attender: JAMISON [facility] 01:30:00 PM EDT [facility] ([facility] Immunizations Vaccine Date Status Description Data Source(s) New in 2012. IIV4 12/11/2020 11:27:00 AM EDT completed [facility] ([facility] New in 2012. IIV4 11/01/2020 11:05:00 AM EDT completed [facility] ([facility] COVID-19 VACCINE Moderna 06/10/2020 12:00:00 AM EDT completed [facility] Vaccine Series Complete: YESThis Data wa s Submitted to [facility] Via [employer]. COVID-19 VACC,MRNA(MODERNA)/PF 06/10/2020 12:00:00 AM EDT completed [facility] COVID-19 VACCINE, MRNA-1273, LNP-S (MODERNA)/PF 05/18/2020 1 2:00:00 AM EDT completed [facility] COVID-19 VACCINE Moderna 05/17/2020 12:00:00 AM EDT completed [facility] Vaccine Series Complete: NOThis Data was Submitted to [facility] Via [employer]. Medications Medication Brand Name Start Date Product [...] 11/01/2020 12:00:00 AM EDT ORAL active MED[facility] ([facility] empagliflozin 10 MG Oral Tablet [Jardiance] Jardiance 11/01/2020 12:00:00 AM EDT ORAL active [facility] ([facility] 500 mg 10/30/2020 12:00:00 AM EDT tablet 60 TAKE ONE TABLET BY MOUTH TWICE A DAY FOR PAIN TAKE ONE TABLET BY MOUTH TWICE A DAY FOR PAIN SOLD: 10/30/2020 [facility] Trulicity Trulicity 10/22/2020 12:00:00 AM EDT act mario MED[facility] ([facility] 3 ML insulin detemir 100 UNT/ML Pen Injector [Levemir] Levem ir Flextouch 10/22/2020 12:00:00 AM EDT active [facility] ([facility] 0.5 ML dulaglutide 3 MG/ML Auto-Injector [Trulicity] Trulici ty 10/18/2020 12:00:00 AM EDT completed [facility] ([facility] empagliflozin 25 MG Oral Tablet [Jardiance] Jardiance 10/18/2020 12:00:00 AM EDT ORAL completed [facility] ([facility] 33 gauge 10/12/2020 12:00:00 AM [...] 0.5 ML dulaglutide 3 MG/ML Auto-Injector [Trulicity] Thomas ty 09/11/2020 12:00:00 AM EDT active M EDENT ([facility]) 0.75 mg/0.5 mL 09/04/2020 12:00:00 [...] HCL 09/03/2020 12:00:00 AM EDT active MED[facility] ([facility]) 4 mg 09/03/2020 12:00:00 AM EDT [...] 0.5 ML dulaglutide 1.5 MG/ML Auto-Injector [Trulicity] [facility] 07/16/2020 12:00:00 AM EDT completed [facility] ([facility]) empagliflozin 10 MG Oral Tablet [Jardiance] Jardiance 07/16/2020 12:00:00 AM EDT ORAL active MED[facility] ([facility] 100 unit/mL 07/03/2020 12:00:00 AM EDT solution 10 INJECT 7 UNITS UNDER THE SKIN TWO TIMES A DAY INJECT 7 UNITS UNDER THE SKIN TWO TIMES A DAY SOLD: 07/03/2020 [facility] insulin detemir 100 UNT/ML Injectable Solution [Levemir] Lev marina 07/03/2020 12:00:00 AM EDT active M EDENT ([facility]) 1 mg 06/18/2020 12:00:00 AM EDT recon soln 1 DIRECTED DIRECTED SOLD: 06/20/2020 [facility] Glucagon 1 MG Injection Glucagon Emergency 06/18/2020 12:00:00 AM EDT active [facility] ([facility] Metformin hydrochloride 1000 MG Oral Tablet 1,000 mg METFORM IN HCL 05/20/2020 12:00:00 AM EDT tablet 60 TAKE ONE TABLET BY MOUTH TWICE A DAY AT 8:00AM AND 6:00PM TAKE ONE TABLET BY MOUTH TWICE A DAY AT 8:00AM AND 6:0 0PM SOLD: 05/21/2020 [facility] Acetaminophen 325 MG / Hydrocodone Bitartrate 5 MG Oral Tabl et [Tucker] Tucker 05/10/2020 12:00:00 AM EDT ORAL completed MED[facility] ([facility]) 5-325 mg 05/10/2020 12:00:00 AM [...] 04/30/2020 12:00:0 0 AM EST completed [facility] ([facility], ) 420 gram 04/10/2020 12:00:00 AM [...] Kwikpen 04/08/2020 12:00:00 AM EST completed [facility] ([facility] Bisacodyl 5 MG Delayed Release Oral Tablet [Dulcolax] Dulcol ax 03/18/2020 12:00:00 AM EST completed MED[facility] ([facility], ) POLYETHYLENE GLYCOL 3350 142 MG/ML Oral Solution [Miralax] M iralax 03/18/2020 12:00:00 AM EST completed [facility] ([facility], ) Dicyclomine Hydrochloride 20 MG Oral Tablet Dicyclomine HCL 03/18/2020 12:00:00 AM EST ORAL completed [facility] ([facility], ) Clenpiq Clenpiq 03/18/2020 12:00:00 AM EST complet ed MEDENT ([facility], ) POLYETHYLENE GLYCOL 3350 105 MG/ML / Pot assium Chloride 0.25249 MEQ/ML / Sodium Bicarbonate 0.017 MEQ/ML / Sodium Chloride 0.0479 MEQ/ML Oral Solution [GaviLyte-N] Gavilyte-N With Flavor Pack 03/18/2020 12:00:00 AM EST completed [facility] 20 mg 03/18/2020 12:00:00 AM [...] U-100 01/24/2020 12:00:00 AM EST active [facility] ([facility] 10 mg 12/14/2019 12:00:00 AM EDT capsule 60 TAKE 1 TABLET BY MOUTH BEFORE LUNCH AND DINNER FOR COURSE OF 8 WEEKS FOR ABDOMINAL CRAMPING TAKE 1 TABLET BY MOUTH BEFORE LUNCH AND DINNER FOR COURSE OF 8 WEEKS FOR ABDOMINAL CRAMPING SOLD: 12/20/2019 [facility] Dicyclomine Hydrochloride 10 MG Oral Capsule Dicyclomine HCL 12/13/2019 12:00:00 AM EDT ORAL completed [facility] ([facility], ) BLOOD-GLUCOSE METER 12/08/2019 12:00:00 AM EDT misc 1 USE UP TO FOUR TIMES A DAY DIRECTED USE UP TO FOUR TIMES A DAY DIRECTED SOLD: 12/20/2019 [facility] Glucose [facility] System 12/06/2019 12:00:00 AM EDT active [facility] ([facility] Docusate Sodium 100 MG Oral Capsule [DOK] Dok 11/19/2019 12:00:0 0 AM EDT completed [facility] ([facility], ) Aspirin 81 MG Delayed Release Oral Tablet SM Aspirin Adult L ow Strength 11/13/2019 12:00:00 AM EDT active [facility] ([facility] Insurance Providers Payer name Policy type / Coverage type Policy ID Covered green party ID Covered green party's relationship to reynoso Policy Reynoso Plan Information [employer] Medigap Part B [id number] .[id number] Family Dependent [id number] [employer] Medigap Part B [id number] 2.16.840.1.465270.3.227.99 .4595.11311.0 Family Dependent [id number] [employer] (Old) Medigap Part B [id number] 2.16.840.1.06912 3.3.227.99.4595.86875.0 Family Dependent [id number] [employer] Medigap Part B [id number] 2.16.840.1.265112.3.227.99 .4595.04673.0 Family Dependent [id number] [employer] (Old) Medigap Part B [id number] 2.16.840.1.28924 3.3.227.99.4595.50160.0 Family Dependent [id number] [employer] Medigap Part B [id number] 2.16.840.1.633182.3.227.99 .4595.81088.0 Family Dependent [id number] [employer] Medigap Part B [id number] 2.16.840.1.199390.3.227.99 .4595.35257.0 Family Dependent [id number] [employer] (Old) Medigap Part B [id number] 2.16.840.1.48317 3.3.227.99.4595.62636.0 Family Dependent [id number] [employer] Medigap Part B [id number] 2.16.840.1.957928.3.227.99 .4595.47267.0 Family Dependent [id number] Umr [employer] Medigap Part B [id number] 2.16.840.1.369028.3.227.9 9.4595.30046.0 Family Dependent [id number] [employer] Commercial [id number] Family Dependent 33 5 Umr [employer] Medigap Part B [id number] 2.16.840.1.620744.3.227.9 9.4595.18511.0 Family Dependent [id number] Umr [employer] P[employer] Medigap Part B [id number] 2.16.840.1.946132.3.227.9 9.4595.22648.0 Family Dependent [id number] [employer] (Old) Medigap Part B [id number] 2.16.840.1.35869 3.3.227.99.4595.68585.0 Family Dependent [id number] [employer] (pr) Medigap Part B [id number] 2.840.1.890931.3.227.99 .991.40065.0 Family Dependent [id number] [facility] (pr) Medigap Part B [id number] 2.840.1.531790.3.227.99 .991.26088.0 Family Dependent [id number] [employer] (pr) Medigap Part B [id number] 2.0.1.342893.3.227.99 .991.79814.0 Family Dependent [id number] [employer] (pr) Medigap Part B [id number] Family Dependent 335 Medicare Natl Govt Servic Medicare Primary [id number] Self Medicare Natl Govt Servic Medicare Primary [id number] 2.840.1.434874.3.227.99.4595.19991.0 Self [id number] Medicare Natl Govt Servic Medicare Primary [id number] 2.0.1.598169.3.227.99.4595.04079.0 Self [id number] Medicare Natl Govt Servic Medicare Primary [id number] 2.0.1.513247.3.227.99.4595.65729.0 Self [id number] Medicare Natl Govt Servic Medicare Primary [id number] 2.840.1.934890.3.227.99.4595.01039.0 Self [id number] Medicare Natl Govt Servic Medicare Primary [id number] 2.0.1.456723.3.227.99.4595.73965.0 Self [id number] Medicare Natl Govt Servic Medicare Primary [id number] 2.840.1.972810.3.227.99.4595.10674.0 Self [id number] Medicare Natl Govt Servic Medicare Primary [id number] 2.840.1.991119.3.227.99.4595.76669.0 Self [id number] Medicare Natl Govt Servic Medicare Primary [id number] 2.840.1.388437.3.227.99.4595.63436.0 Self [id number] Medicare Natl Govt Servic Medicare Primary [id number] 2.840.1.652836.3.227.99.4595.36579.0 Self [id number] Medicare Natl Govt Servic Medicare Primary [id number] 2.840.1.927706.3.227.99.4595.58977.0 Self [id number] Medicare Natl Govt Servic Medicare Primary [id number] 2.840.1.970429.3.227.99.4595.89934.0 Self [id number] Medicare Natl Govt Servic Medicare Primary [id number] 2.840.1.223002.3.227.99.4595.89655.0 Self [id number] Medicare Natl Govt Servic Medicare Primary [id number] 04.09.830.1.070372.3.227.99.4595.06608.0 Self [id number] [facility]) Commercial [id number] 04.09.830.1.824762.3.227.99.991.49506.0 Self [id number] [facility]) Commercial Complete Choice [id number] Self Complete Choice UMR [facility] [id number] HU2 [id number] Umr ([facility]) Medigap Part B [id number] 2840.1.083448.3.227 .99.4595.06283.0 Family Dependent [id number] Umr (as Of 06/22/2017) Medigap Part B [id number] .0.1.777596.3.227.99.4595.29677.0 Family Dependent [id number] MEDICARE COMPLETE [id number] SP [id number] United HLCR/Medicare Solu Commercial [id number] 2.0.1.887510.3.227.99.1767.80742.0 Self [id number] UMR O [id number] P [id number] 1 MEDICARE COMPLETE-UHC O [id number] S [id number] Medicare Natl Gov't Servi Medigap Part B [id number] .1.658767.3.227.99.1767.88270.0 Self [id number] [facility] Medigap Part B [id number] ..1.267078.3.227.9 9.1767.70928.0 Family Dependent [id number] United HLCR/Medicare Solu Commercial [id number] 2..1.731995.3.227.99.1767.47352.0 Self [id number] [employer] [id number] 2..1.374148.3.227.99.936.25621.0 Self [id number] Umr/[facility]/[employer] Medigap Part B [id number] 04.09.830.1.857585.3.227.9 9.1767.46978.0 Family Dependent [id number] Medicare Natl Gov't Servi Medigap Part B [id number] ..1.425590.3.227.99.1767.13883.0 Self [id number] United HLCR/Medicare Solu Commercial [id number] 2.0.1.697959.3.227.99.1767.45536.0 Self [id number] [employer] Getting-in [id number] 20.1.026057.3.227.99.936.33192.0 Self [id number] [employer] Medigap Part B [id number] 2.0.1.069316.3.227.99 .936.98647.0 Family Dependent [id number] [employer] [id number] HU2 [id number] [employer] PPO O [id number] S [id number] Medicare Natl Gov't Servi Medigap Part B [id number] 2.0.1.578939.3.227.99.1767.45690.0 Self [id number] [employer] Medigap Part B [id number] 2..1.171693.3.227.99 .1767.75530.0 Family Dependent [id number] [place] HLCR/Medicare Solu Commercial [id number] 2..1.657593.3.227.99.1767.52427.0 Self [id number] [place] Hlcare Getting-in [id number] 2..1.505284.3.227.99.936.35163.0 Self [id number] Medicare Natl Gov't Servi Medigap Part B [id number] .1.161457.3.227.99.1767.53398.0 Self [id number] [employer] Commercial [id number] 2..1.366077.3.227.99.1 767.03917.0 Family Dependent [id number] [place] [facility] Getting-in [id number] 2..1.167758.3.227.99.936.34938.0 Self [id number] [facility] Medicare Denise Commercial [id number] 00 ..1.631318.3.227.99.4595.06838.0 Self [id number] [place] [facility] [id number] 2..1.948725.3.227.99.936.38491.0 Self [id number] [place] [facility] Getting-in [id number] 2..1.170231.3.227.99.936.21675.0 Self [id number] [employer] [id number] 2.0.1.967159.3.227.99.936.00978.0 Self [id number] [employer] Medigap Part B [id number] 2.0.1.753534.3.227.99 .8646.92082.0 Family Dependent [id number] Medicare [facility] Medicare Primary [id number] .1.232948.3.227.99.8646.77863.0 Self [id number] [facility] Commercial [id number] 04.09.830.1.746906.3.227.99.8646.85184.0 Self [id number] [employer] [id number] 2.1.735612.3.227.99.936.69789.0 Self [id number] [employer] Medigap Part B [id number] .1.287004.3.227.99 .1767.53042.0 Family Dependent [id number] Medicare Natl Gov't Servi Medicare Primary [id number] .1.418978.3.227.99.1767.87897.0 Self [id number] [facility] Medicare Denise Commercial [id number] Self [id number] [facility] Medigap Part B [id number] Self Ppo [employer] .1.740823 [id number] Self [place] [employer] [id number] Family Dependent Medicare Dme Supplies Medigap Part B [id number] Self [place] Primary [id number] Self MEDICARE [id number] SP [id number] A MEDICARE C [id number] S [id number] A [place] Medigap Part B [id number] Family Dependent Medicare Natl Gov't Servi Medicare Primary [id number] Self GROUP HE[employer] INSURANCE [id number] [facility] [id number] GROUP HEALTH INSURANCE [id number] SP [id number] GHI P [id number] S [id number] MEDICARE [id number] SP [id number] UMR [facility] [id number] MEDICARE COMPLETE [id number] SP [id number] UMR O [id number] S [id number] MEDICARE COMPLETE-UHC O [id number] S [id number] UNHC MEDICARE COMPLETE - O/P [id number] 18 [id number] UMR [facility] [id number] HU2 [id number] UMR O [id number] S [id number] [place] PROSimitycare Getting-in [id number] Self [id number] [place] Medigap Part B [id number] Family Dependent [id number] r Commercial [id number] Family Dependent [id number] [employer] Getting-in [id number] Self [id number] [place] PROSimitycare Getting-in [id number] Self [id number] Medicare Natl Gov't Servi Medigap Part B [id number] Self [id number] Umr/Uhc/[place] Medigap Part B [id number] [id number] [facility] [id number] Self [id number] Medicare Natl Gov't Servi Medigap Part B [id number] Self [id number] Umr/Uhc/[place] Medigap Part B [id number] Family [facility] [id number] [facility] [id number] Self [id number] Medicare Natl Gov't Servi Medigap Part B [id number] Self [id number] Umr/Uhc/[place] Medigap Part B [id number] Family [facility] [id number] [facility] [id number] Self [id number] Medicare Dme Supplies Medigap Part B [id number] Self [id number] [place] Med[place]ap Part B [id number] Self [id number] Umr (pr) Medigap Part B [id number] 6.0 Self [id number] [facility] Commercial [id number] Self [id number] 00 [facility] Medigap Part B [id number] Self [id number] [employer] [id number] Self [id number] Medicare Dme Supplies Medigap Part B [id number] Self [id number] [place] Medigap Part B [id number] Self [id number] Umr (pr) Medigap Part B [id number] 6.0 Self [id number] Medicare Dme Supplies Medigap Part B [id number] Self 0 [id number] [place] Medigap Part B [id number] Self 0 [id number] Umr (pr) Medigap Part B [id number] 6.0 Self [id number] [employer] [id number] Self [id number] Medicare Natl Gov't Servi Medigap Part B [id number] Self [id number] Umr/Uhc/[place] Medigap Part B [id number] Family Dependent [id number] Problems, Conditions, and Diagnoses Code Display Name Description Problem Type Effective Dates Data Source(s) L56041 Personal history of nicotine dependence Personal history of nicotine dependence Diagnosis 12/31/2019 03:26:00 PM [facility] 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 drugs Diagnosis 12/31/2019 03:26:00 PM [facility] Z7982 care home (cu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 Diagnosis 12/31/2019 03:26:00 PM [facility] I10 Essential (primary) hypertension Essential (primary) h ypertension Diagnosis 12/31/2019 03:26:00 PM [facility] E785 Hyperlipidemia, unspecified Hyperlipidemia, unspecifie d Diagnosis 12/31/2019 03:26:00 PM [facility] E119 Type 2 diabetes mellitus without complic ations Type 2 diabetes mellitus without complications Diagnosis 12/31/2019 03:26:00 PM [facility] J9801 Acute bronchospasm Acute bronchospasm Diagnosis 09/2019 03:26:00 PM [facility] R0789 Other chest pain Other chest pain Diagnosis 12/31/2019 03 :26:00 PM [facility] Surgeries/Procedures Procedure Description Date Indications Data Source(s) DEBRIDEMENT NAIL ANY METHOD 6/> 12/20/2020 12:00:00 AM EDT [facility] ([facility] OFFICE OUTPATIENT VISIT 25 MINUTES 12/11/2020 12:00:00 AM EDT [facility] ([facility] OFFICE OUTPATIENT VISIT 25 MINUTES 11/01/2020 12:00:00 AM EDT [facility] ([facility] OFFICE OUTPATIENT VISIT 15 MINUTES 10/29/2020 12:00:00 AM EDT [facility] ([facility], ) OFFICE OUTPATIENT VISIT 25 MINUTES 10/22/2020 12:00:00 AM EDT [facility] ([facility] OFFICE OUTPATIENT VISIT 25 MINUTES 10/18/2020 12:00:00 AM EDT [facility] ([facility] OFFICE OUTPATIENT NEW 30 MINUTES 10/17/2020 12:00:00 A M EDT [facility] ([facility], ) OFFICE OUTPATIENT NEW 45 MINUTES 10/17/2020 12:00:00 A M EDT [facility] ([facility], ) DEBRIDEMENT NAIL ANY METHOD 10/11/2020 12:00:00 AM EDT [facility] ([facility] Capillary Blood Collection Finger, Heel, Ear Stick 10/10/2020 12:00:00 AM EDT [facility] ([facility] OFFICE OUTPATIENT VISIT 25 MINUTES 10/10/2020 12:00:00 AM EDT [facility] OFFICE OUTPATIENT VISIT 25 MINUTES 09/16/2020 12:00:00 AM EDT [facility] ([facility] OFFICE OUTPATIENT VISIT 15 MINUTES 09/12/2020 12:00:00 AM EDT [facility] ([facility]) OFFICE OUTPATIENT VISIT 25 MINUTES 09/11/2020 12:00:00 AM EDT [facility] ([facility]) OFFICE OUTPATIENT VISIT 25 MINUTES 09/03/2020 12:00:00 AM EDT [facility] ([facility]) DEBRIDEMENT NAIL ANY METHOD 07/26/2020 12:00:00 AM EDT [facility] ([facility] OFFICE OUTPATIENT VISIT 25 MINUTES 07/23/2020 12:00:00 AM EDT [facility] ([facility] OFFICE OUTPATIENT NEW 60 MINUTES 07/16/2020 12:00:00 A M EDT [facility] ([facility]) OFFICE OUTPATIENT VISIT 25 MINUTES 07/08/2020 12:00:00 AM EDT [facility] ([facility] OFFICE OUTPATIENT VISIT 25 MINUTES 06/18/2020 12:00:00 AM EDT [facility] ([facility] OFFICE OUTPATIENT VISIT 25 MINUTES 05/24/2020 12:00:00 AM EDT [facility] ([facility] DEBRIDEMENT NAIL ANY METHOD 05/17/2020 12:00:00 AM EDT [facility] ([facility] EXC TUMOR SOFT TISSUE ABDOMINAL WALL SUBQ <3CM 021 12:00:00 AM EDT [facility] ([facility]) EXC TUMOR SOFT TISSUE ABDOMINAL WALL SUBQ <3CM 021 12:00:00 AM EDT [facility] ([facility]) OFFICE OUTPATIENT VISIT 25 MINUTES 05/03/2020 12:00:00 AM EST [facility] ([facility] Diabetic Foot Exam 04/22/2020 12:00:00 AM EST [facility] ([facility]) OFFICE OUTPATIENT NEW 30 MINUTES 04/18/2020 12:00:00 A M EST [facility] ([facility]) OFFICE OUTPATIENT VISIT 25 MINUTES 04/15/2020 12:00:00 AM EST [facility] ([facility] OFFICE OUTPATIENT VISIT 25 MINUTES 03/18/2020 12:00:00 AM EST [facility] ([facility]) RADEX FINGR MINIMUM 2 VIEWS 03/12/2020 12:00:00 AM EST [facility] ([facility]) DEBRIDEMENT NAIL ANY METHOD 03/08/2020 12:00:00 AM EST [facility] ([facility] RADEX FINGR MINIMUM 2 VIEWS 02/27/2020 12:00:00 AM EST [facility] ([facility]) DEBRIDEMENT NAIL ANY METHOD > 12/28/2019 12:00:00 AM EST [facility] ([facility] Electrocardiogram Complete 12/28/2019 12:00:00 AM EST [facility] ([facility] Electrocardiogram Complete 11/22/2019 12:00:00 AM EDT [facility] ([facility] Mammogram 11/15/2019 12:00:00 AM EDT M [facility] ([facility] Results ID Date Data Source [id number] 12/28/2020 07:24:00 PM EDT [facility] [place] [place] [facility] Name Value Range Interpretation Code Description Data Leona rce(s) Supporting Document(s) Glucose [Mass/volume] in Capillary blood by Glucometer 120 mg/dL 83-110 Above high normal [facility] ([facility] ) ID Date Data Source [id number] 12/28/2020 06:32:00 PM EDT [facility] Name Value Range Interpretation Code Description Data Leona rce(s) Supporting Document(s) SARS coronavirus 2 RNA [Presence] in Res piratory specimen by DANIELA with probe detection NEGATIVE [facility] This lab was ordered by [facility] a nd reported by [facility]. ID Date Data Source [id number] 12/28/2020 06:32:00 PM EDT [facility] ([facility] [place] [place] [facility] Name Value Range Interpretation Code Description Data Leona rce(s) Supporting Document(s) Influenza A Amplification Laboratory test result Normal (applies to non- numeric results) [facility] ([facility] ) Negative results do not preclude influen za or RSV virus infection and should not be used as the sole basis for treatment or other patient management decisions. RSV Amplification Laboratory test result Normal (applies to non-numeric results) [facility] ([facility] ) Negative results do not preclude influen za or RSV virus infection and should not be used as the sole basis for treatment or other patient management decisions. Influenza B Amplification Laboratory test result Normal (applies to non- numeric results) [facility] ([facility] ) Negative results do not preclude influen za or RSV virus infection and should not be used as the sole basis for treatment or other patient management decisions. Laboratory test finding (navigational concept) Laboratory test r esult Normal (applies to non-numeric results) [facility] ([facility] A false negative result may [...] pathogens. DISCLAIMER: Testing was performed using the [employer] SARS-CoV-2 test. This test was developed and its performance characteristics determined by [employer]. This test has not been FDA cleared [...] or revoked sooner. ID Date Data Source [id number] 12/28/2020 04:30:00 PM EDT [facility] ([facility] [place] [facility] Name Value Range Interpretation Code Description Data Leona rce(s) Supporting Document(s) Erythrocyte sedimentation rate by Westergren method 25 mm/hr 0-30 Normal (applies to non-numeric results) [facility] ([facility] ID Date Data Source [id number] 12/28/2020 04:30:00 PM EDT [facility] ([facility] [place] [facility] Name Value Range Interpretation Code Description Data Leona rce(s) Supporting Document(s) White Blood Count 6.9 10 4.0-10.0 Normal (applies to non-numeri c results) [facility] ([facility] Red Blood Count 4.73 10 4.00-5.40 Normal (applies to non-numeric results) [facility] ([facility] Hematocrit 40.9 % 36.0-47.0 Normal (applies to non-numeric resul ts) [facility] ([facility] Hemoglobin 12.6 g/dL 12.0-15.5 Normal (applies to non-numeric resul ts) [facility] ([facility] Mean Corpuscular Volume 86.5 fl 80.0-96.0 Normal ( applies to non-numeric results) [facility] ([facility] ) Mean Corpuscular Hemoglobin 26.6 pg 27.0-33.0 Below low normal [facility] ([facility] Red Cell Distribution Width 16.1 % 11.5-14.5 Above high normal [facility] ([facility] Mean Corpuscular HGB Conc 30.8 g/dL 32.0-36.5 Below low normal [facility] ([facility] Neutrophils % 64.2 % 36.0-66.0 Normal (applies to non-numeric re sults) [facility] ([facility] Lymph % 27.0 % 24.0-44.0 Normal (applies to non-numeric resul ts) [facility] ([facility] Platelet Count, Automated 335 10 150-450 Normal (applies to non-numeric results) [facility] ([facility] ) Eos % 2.0 % 0.0-3.0 Normal (applies to non-numeric resul ts) [facility] ([facility] Lucas % 6.3 % 2.0-8.0 Normal (applies to non-numeric resul ts) [facility] ([facility] Nucleated Red Blood Cell % 0.0 % 0-0 Normal (applies to n on-numeric results) [facility] ([facility] Immature Granulocyte % 0.1 % 0-3.0 Normal (applies to non-n umeric results) [facility] ([facility] Baso % 0.4 % 0.0-1.0 Normal (applies to non-numeric resul ts) [facility] ([facility] Neutrophils # 4.4 10 1.5-8.5 Normal (applies to non-numeric re sults) [facility] ([facility] Lymph # 1.9 10 1.5-5.0 Normal (applies to non-numeric resul ts) [facility] ([facility] Lucas # 0.4 10 0.0-0.8 Normal (applies to non-numeric resul ts) [facility] ([facility] Eos # 0.1 10 0.0-0.5 Normal (applies to non-numeric resul ts) [facility] ([facility] Baso # 0.0 10 0.0-0.2 Normal (applies to non-numeric resul ts) [facility] ([facility] ID Date Data Source [id number] 12/28/2020 04:30:00 PM EDT [facility] ([facility] Name Value Range Interpretation Code Description Data Leona rce(s) Supporting Document(s) C reactive protein [Mass/volume] in Serum or Plasma by High sensitivity method 1.63 mg/dL 0.00-0.30 Above high normal [facility] ([facility] ID Date Data Source [id number] 12/28/2020 04:30:00 PM EDT [facility] ([facility] [employer] [facility] Name Value Range Interpretation Code Description Data Leona rce(s) Supporting Document(s) Creatinine For GFR 1.01 mg/dL 0.55-1.30 Normal (applies to non -numeric results) [facility] ([facility] Glucose, Fasting 345 mg/dL 70-100 Above high normal M [facility] ([facility] Blood Urea Nitrogen 16 mg/dL 7-18 Normal (applies to non-nume samantha results) [facility] ([facility] Sodium Level 140 meq/L 136-145 Normal (applies to non-numeric res ults) [facility] ([facility] Glomerular Filtration Rate 57.7 Normal (applies to n on-numeric results) [facility] <content>Units are mL/min/1.73 m2</content>
<content></content>
<content>Chronic Kidney Disease Staging per NKF:</content>
<content></content>
<content>Stage I & II GFR >=60 Normal to Mildly Decreased</content>
<content>Stage III GFR 30- 59 Moderately Decreased</content>
<content>Stage IV GFR 15-29 Severely Decreased</content>
<content>Stage V GFR <15 Very Little GFR Left</content>
<content>ESRD GFR <15 on SIZE MIXER</content>
<content></content> Potassium Serum 3.9 meq/L 3.5-5.1 Normal (applies to non-numeric results) [facility] ([facility] Chloride Level 103 meq/L 98-107 Normal (applies to non-numeric r esults) [facility] ([facility] Calcium Level 9.2 mg/dL 8.8-10.2 Normal (applies to non-numeric re sults) [facility] ([facility] Anion Gap 7 meq/L 8-16 Below low normal [facility] ( [facility] Carbon Dioxide Level 30 meq/L 21-32 Normal (applies to non-num ana rosa results) [facility] ([facility] ID Date Data Source [id number] 11/26/2020 11:58:00 PM EDT [facility] ([facility] Name Value Range Interpretation Code Description Data Leona rce(s) Supporting Document(s) Laboratory test finding (navigational concept) 0.02 ng/mL 0 .00-0.08 Normal (applies to non-numeric results) [facility] ([facility] ID Date Data Source [id number] 11/26/2020 10:36:00 PM EDT [facility] ([facility] Name Value Range Interpretation Code Description Data Leona rce(s) Supporting Document(s) Laboratory test finding (navigational concept) 0.07 ng/mL 0 .00-0.08 Normal (applies to non-numeric results) [facility] ([facility] ID Date Data Source [id number] 11/26/2020 10:20:00 PM EDT [facility] ([facility] Name Value Range Interpretation Code Description Data Leona rce(s) Supporting Document(s) Red Blood Count 5.20 10 4.00-5.40 Normal (applies to non-numeric results) [facility] ([facility] White Blood Count 8.8 10 4.0-10.0 Normal (applies to non-numeri c results) [facility] ([facility] Hemoglobin 13.7 g/dL 12.0-15.5 Normal (applies to non-numeric resul ts) [facility] ([facility] Hematocrit 44.5 % 36.0-47.0 Normal (applies to non-numeric resul ts) [facility] ([facility] Mean Corpuscular Hemoglobin 26.3 pg 27.0-33.0 Below low normal [facility] ([facility] Mean Corpuscular Volume 85.6 fl 80.0-96.0 Normal ( applies to non-numeric results) [facility] ([facility] ) Mean Corpuscular HGB Conc 30.8 g/dL 32.0-36.5 Below low normal [facility] ([facility] Red Cell Distribution Width 16.4 % 11.5-14.5 Above high normal [facility] ([facility] Platelet Count, Automated 317 10 150-450 Normal (applies to non-numeric results) [facility] ([facility] ) Neutrophils % 60.8 % 36.0-66.0 Normal (applies to non-numeric re sults) [facility] ([facility] Lucas % 6.3 % 2.0-8.0 Normal (applies to non-numeric resul ts) [facility] ([facility] Lymph % 29.7 % 24.0-44.0 Normal (applies to non-numeric resul ts) [facility] ([facility] Baso % 0.6 % 0.0-1.0 Normal (applies to non-numeric resul ts) [facility] ([facility] Immature Granulocyte % 0.2 % 0-3.0 Normal (applies to non-n umeric results) [facility] ([facility] Eos % 2.4 % 0.0-3.0 Normal (applies to non-numeric resul ts) [facility] ([facility] Lymph # 2.6 10 1.5-5.0 Normal (applies to non-numeric resul ts) [facility] ([facility] Neutrophils # 5.4 10 1.5-8.5 Normal (applies to non-numeric re sults) [facility] ([facility] Nucleated Red Blood Cell % 0.0 % 0-0 Normal (applies to n on-numeric results) [facility] ([facility] Lucas # 0.6 10 0.0-0.8 Normal (applies to non-numeric resul ts) [facility] ([facility] Eos # 0.2 10 0.0-0.5 Normal (applies to non-numeric resul ts) [facility] ([facility] Baso # 0.1 10 0.0-0.2 Normal (applies to non-numeric resul ts) [facility] ([facility] ID Date Data Source [id number] 11/26/2020 10:20:00 PM EDT [facility] ([facility] Name Value Range Interpretation Code Description Data Leona rce(s) Supporting Document(s) aPTT in Platelet poor plasma by Coagulation assay 28.4 s 25.9-37.0 Normal (applies to non-numeric results) [facility] ([facility] ID Date Data Source [id number] 11/26/2020 10:20:00 PM EDT [facility] ([facility] Name Value Range Interpretation Code Description Data Leona rce(s) Supporting Document(s) Ast/Sgot 21 U/L 7-37 Normal (applies to non-numeric resul ts) [facility] ([facility] Alkaline Phosphatase 120 U/L 45-117 Above high normal [facility] ([facility] Alt/SGPT 20 U/L 12-78 Normal (applies to non-numeric resul ts) [facility] ([facility] Bilirubin,Direct Laboratory test result 0.0-0.2 Normal ( applies to non-numeric results) [facility] ([facility] ) Total Protein 6.6 GM/DL 6.4-8.2 Normal (applies to non-numeric re sults) [facility] ([facility] Bilirubin,Total 0.4 mg/dL 0.2-1.0 Normal (applies to non-numeric results) [facility] ([facility] Albumin 3.3 GM/DL 3.2-5.2 Normal (applies to non-numeric resul ts) [facility] ([facility] Albumin/Globulin Ratio 1.0 1.2-2.2 Below low normal [facility] ([facility] ID Date Data Source [id number] 11/26/2020 10:20:00 PM EDT [facility] ([facility] [place] [facility] Name Value Range Interpretation Code Description Data Leona rce(s) Supporting Document(s) Glucose, Fasting 191 mg/dL 70-100 Above high normal M [facility] ([facility] Glomerular Filtration Rate Laboratory test result Normal (applies to non- numeric results) [facility] ([facility] ) <content>Units are mL/min/1.73 m2</content>
<content></content>
<content>Chronic Kidney Disease Staging per NKF:</content>
<content></content>
<content>Stage I & II GFR >=60 Normal to Mildly Decreased</content>
<content>Stage III GFR 30- 59 Moderately Decreased</content>
<content>Stage IV GFR 15-29 Severely Decreased</content>
<content>Stage V GFR <15 Very Little GFR Left</content>
<content>ESRD GFR <15 on SIZE MIXER</content>
<content></content> Blood Urea Nitrogen 19 mg/dL 7-18 Above high normal [facility] ([facility] Creatinine For GFR 0.92 mg/dL 0.55-1.30 Normal (applies to non -numeric results) [facility] ([facility] Chloride Level 103 meq/L 98-107 Normal (applies to non-numeric r esults) [facility] ([facility] Sodium Level 137 meq/L 136-145 Normal (applies to non-numeric res ults) [facility] ([facility] Potassium Serum 4.4 meq/L 3.5-5.1 Normal (applies to non-numeric results) [facility] Anion Gap 6 meq/L 8-16 Below low normal [facility] ( [facility] Carbon Dioxide Level 28 meq/L 21-32 Normal (applies to non-num ana rosa results) [facility] ([facility] Calcium Level 9.2 mg/dL 8.8-10.2 Normal (applies to non-numeric re sults) [facility] ([facility] ID Date Data Source [id number] 11/26/2020 10:20:00 PM EDT [facility] ([facility] Name Value Range Interpretation Code Description Data Leona rce(s) Supporting Document(s) Thyroxine (T4) free [Mass/volume] in Serum or Plasma 1.03 ng/dL 0.76-1.46 Normal (applies to non-numeric results) [facility] ([facility] Lipoprotein lipase [Enzymatic activity/volume] in Serum or P lasma 219 U/L 73-393 Normal (applies to non-numeric results) [facility] Thyrotropin [Units/volume] in Serum or Plasma 3.800 uIU/ML 0. 358-3.740 Above high normal [facility] ([facility] ) ID Date Data Source [id number] 11/26/2020 10:20:00 PM EDT [facility] ([facility] Name Value Range Interpretation Code Description Data Leona rce(s) Supporting Document(s) Inr 0.94 Normal (applies to non-numeric resul ts) [facility] ([facility] THERAPUTIC HUMAN INR VALUES INDICATIONS NORMAL RANGES PROPHYLAXIS/TREATMENT OF: VENOUS THROMBOSIS 2.0-3.0 PULMONARY EMBOLISM 2.0-3.0 PREVENTION OF SYSTEMIC EMBOLISM FROM: TISSUE HEART VALVES 2.0-3.0 ACUTE MYOCARDIAL INFARCTION 2.0-3.0 VALVULAR HEART DISEASE 2.0-3.0 ATRIAL FIBRILLATION 2.0-3.0 MECHANICAL VALVES(HIGH RISK) 2.5-3.5 RECURRENT MYOCARDIAL INFARCTION 2.5-3.5 Prothrombin Time 12.9 s 12.7-14.5 Normal (applies to non-numeric results) [facility] ([facility] ID Date Data Source [id number] 11/20/2020 09:13:00 PM EDT [facility] ([facility] Name Value Range Interpretation Code Description Data Leona rce(s) Supporting Document(s) Glucose [Mass/volume] in Capillary blood by Glucometer 309 mg/dL 83-110 Above high normal [facility] ([facility] ) ID Date Data Source [id number] 11/20/2020 07:29:00 PM EDT [facility] ([facility] [place] [place] [facility] Name Value Range Interpretation Code Description Data Leona rce(s) Supporting Document(s) Glucose [Mass/volume] in Capillary blood by Glucometer 208 mg/dL 83-110 Above high normal [facility] ([facility] ) ID Date Data Source [id number] 11/20/2020 06:58:00 PM EDT [facility] ([facility] [place] [place] [facility] Name Value Range Interpretation Code Description Data Leona rce(s) Supporting Document(s) Glucose [Mass/volume] in Capillary blood by Glucometer 84 mg/dL 83-110 Normal (applies to non-numeric results) [facility] ([facility] ID Date Data Source [id number] 11/20/2020 06:21:00 PM EDT [facility] ([facility] [place] [place] [facility] Name Value Range Interpretation Code Description Data Leona rce(s) Supporting Document(s) Glucose [Mass/volume] in Capillary blood by Glucometer 36 mg/dL 83-110 Below lower panic limits [facility] ([facility] Doctor Notified ID Date Data Source [id number] 11/20/2020 06:01:00 PM EDT [facility] ([facility] [place] [facility] Name Value Range Interpretation Code Description Data Leona rce(s) Supporting Document(s) Glucose [Mass/volume] in Capillary blood by Glucometer 25 mg/dL 83-110 Below lower panic limits [facility] ([facility] ) Doctor Notified ID Date Data Source [id number] 11/20/2020 06:00:00 PM EDT [facility] ([facility] [place] [facility] Name Value Range Interpretation Code Description Data Leona rce(s) Supporting Document(s) Glucose [Mass/volume] in Capillary blood by Glucometer 32 mg/dL 83-110 Below lower panic limits [facility] ([facility] Doctor Notified ID Date Data Source [id number] 11/20/2020 04:24:00 PM EDT [facility] ([facility] [place] [facility] Name Value Range Interpretation Code Description Data Leona rce(s) Supporting Document(s) Glucose [Mass/volume] in Capillary blood by Glucometer 107 mg/dL 83-110 Normal (applies to non-numeric results) [facility] ([facility] ID Date Data Source [id number] 11/01/2020 11:10:00 AM EDT [facility] ([facility] [place] [facility] Name Value Range Interpretation Code Description Data Leona rce(s) Supporting Document(s) Hemoglobin A1c/Hemoglobin.total in Blood 7.5 % 4.8-5.6 Above high normal [facility] ([facility] <content>Prediabetes: 5.7 - 6.4</content >
<content>Diabetes: >6.4</content>
<content>Glycemic control for adults with diabetes: <7.0</content>
<content></content> ID Date Data Source [id number] 11/01/2020 11:09:00 AM EDT [facility] ([facility] [place] [place] [facility] Name Value Range Interpretation Code Description Data Leona rce(s) Supporting Document(s) Chol 131 mg/dL 0-200 [facility] ([facility] CHRONIC KIDNEY DISEASE [...] YEARS EXCLUSIVE. Cho/HDL Ratio 2.3 Calc [facility] ([facility] CHRONIC KIDNEY DISEASE STAGING PER [...] 2-19 YEARS EXCLUSIVE. ID Date Data Source [id number] 11/01/2020 11:09:00 AM EDT [facility] ([facility] [place] [place] [facility] Name Value Range Interpretation Code Description Data Leona rce(s) Supporting Document(s) BUN 18 mg/dL 8-23 [facility] ([facility] CHRONIC [...] YEARS EXCLUSIVE. BUN/Creatinine Ratio 20.3 CALC [facility] ([facility] CHRONIC KIDNEY DISEASE [...] mmol/L 136-145 Below low normal [facility] ( [facility] CHRONIC KIDNEY [...] K 4.2 mmol/L 3.5-5.1 [facility] ([facility] CHRONIC KIDNEY DISEASE STAGING [...] YEARS EXCLUSIVE. Co2 22.1 mmol/L 22.0-29.0 [facility] ([facility] CHRONIC KIDNEY DISEASE STAGING PER [...] EXCLUSIVE. Alt (SGPT) 9 U/L 0-41 [facility] ([facility] CHRONIC KIDNEY DISEASE STAGING PER [...] YEARS EXCLUSIVE. Ast (Sgot) 15 U/L 0-40 [facility] CHRONIC KIDNEY [...] YEARS EXCLUSIVE. Anion Gap 20 mmol/L [facility] ([facility] CHRONIC KIDNEY DISEASE [...] INDIVIDUALA AGED 2-19 YEARS EXCLUSIVE. eGFR Non-Afr. Serbian 65 # [facility] ([facility] [...] 2-19 YEARS EXCLUSIVE. ID Date Data Source [id number] 10/15/2020 05:37:00 PM EDT [facility] ([facility] Name Value Range Interpretation Code Description Data Lenoa rce(s) Supporting Document(s) Glucose [Mass/volume] in Capillary blood by Glucometer 203 mg/dL 83-110 Above high normal [facility] ([facility] ID Date Data Source [id number] 10/15/2020 04:34:00 PM EDT [facility] ([facility] Name Value Range Interpretation Code Description Data Leona rce(s) Supporting Document(s) Glucose [Mass/volume] in Capillary blood by Glucometer 159 mg/dL 83-110 Above high normal [facility] ([facility] ID Date Data Source [id number] 10/15/2020 03:12:00 PM EDT [facility] ([facility] Name Value Range Interpretation Code Description Data Leona rce(s) Supporting Document(s) Glucose [Mass/volume] in Capillary blood by Glucometer 43 mg/dL 83-110 Below low normal [facility] ([facility] ) ID Date Data Source [id number] 10/15/2020 11:29:00 AM EDT [facility] ([facility] Name Value Range Interpretation Code Description Data Leona rce(s) Supporting Document(s) Red Blood Count 5.45 10 4.00-5.40 Above high normal [facility] ([facility] White Blood Count 8.1 10 4.0-10.0 Normal (applies to non-numeri c results) [facility] ([facility] Hemoglobin 14.1 g/dL 12.0-15.5 Normal (applies to non-numeric resul ts) [facility] ([facility] Mean Corpuscular Volume 84.2 fl 80.0-96.0 Normal ( applies to non-numeric results) [facility] ([facility] ) Hematocrit 45.9 % 36.0-47.0 Normal (applies to non-numeric resul ts) [facility] ([facility] Red Cell Distribution Width 15.6 % 11.5-14.5 Above high normal [facility] ([facility] Mean Corpuscular Hemoglobin 25.9 pg 27.0-33.0 Below low normal [facility] ([facility] Mean Corpuscular HGB Conc 30.7 g/dL 32.0-36.5 Below low normal [facility] ([facility] Neutrophils % 51.4 % 36.0-66.0 Normal (applies to non-numeric re sults) [facility] ([facility] Platelet Count, Automated 350 10 150-450 Normal (applies to non-numeric results) [facility] ([facility] ) Lymph % 37.8 % 24.0-44.0 Normal (applies to non-numeric resul ts) [facility] ([facility] Lucas % 6.8 % 2.0-8.0 Normal (applies to non-numeric resul ts) [facility] ([facility] Eos % 3.2 % 0.0-3.0 Above high normal [facility] ([facility] Baso % 0.6 % 0.0-1.0 Normal (applies to non-numeric resul ts) [facility] ([facility] Immature Granulocyte % 0.2 % 0-3.0 Normal (applies to non-n umeric results) [facility] ([facility] Nucleated Red Blood Cell % 0.0 % 0-0 Normal (applies to n on-numeric results) [facility] ([facility] Neutrophils # 4.2 10 1.5-8.5 Normal (applies to non-numeric re sults) [facility] ([facility] Lymph # 3.1 10 1.5-5.0 Normal (applies to non-numeric resul ts) [facility] ([facility] Lucas # 0.6 10 0.0-0.8 Normal (applies to non-numeric resul ts) [facility] ([facility] Eos # 0.3 10 0.0-0.5 Normal (applies to non-numeric resul ts) [facility] ([facility] Baso # 0.1 10 0.0-0.2 Normal (applies to non-numeric resul ts) [facility] ([facility] ID Date Data Source [id number] 10/15/2020 11:29:00 AM EDT [facility] [place] [facility] Name Value Range Interpretation Code Description Data Leona rce(s) Supporting Document(s) CPK Creatine Phosphokinase 43 U/L 26-192 Roselia l (applies to non-numeric results) [facility] ([facility] ) CK-MB Value Mass Laboratory test result Normal ( applies to non-numeric results) [facility] ([facility] ) MB/CK Relative Index 2.33 Normal (applies to non-num ana rosa results) [facility] ([facility] <content>DIAGNOSIS CRITERIA</content>
<content>MMB ng/ml Relative Index (RI)</content>
<content>NON-AMI < or = 5 N/A</content>
<content>GIL ZONE > 5 < or = 4</content>
<content>AMI > 5 > 4</content>
<content></content> Troponin I Laboratory test result Normal (applies to non-n umeric results) [facility] ([facility] <content>Troponin I Reference Interval f or [employer] [place] LOCI:</content>
<content></content>
<content>99th Percentile= 0.00-0.045 ng/ml</content>
<content></content>
<content>Risk Stratification:</content>
<content><= 0.10 ng/ml Decreased Risk for Adverse Clinical</content>
<content>Events.</content>
<content>0.10-1.50 ng/ml Increased Risk for Adverse Clinical</content>
<content>Events. Evaluation of additional</content>
<content>criterion and/or repeat testing in 2-6</content>
<content>hours is suggested to rule out myocardial</content>
<content>damage.</content>
<content>>= 1.50 ng/ml Indicative of Myocardial Injury.</content>
<content></content> ID Date Data Source [id number] 10/15/2020 11:29:00 AM EDT [facility] ([facility] [place] [facility] Name Value Range Interpretation Code Description Data Leona rce(s) Supporting Document(s) Alt/SGPT 22 U/L 12-78 Normal (applies to non-numeric resul ts) [facility] ([facility] Ast/Sgot 12 U/L 7-37 Normal (applies to non-numeric resul ts) [facility] ([facility] Alkaline Phosphatase 97 U/L 45-117 Normal (applies to non-num ana rosa results) [facility] ([facility] Bilirubin,Direct Laboratory test result 0.0-0.2 Normal ( applies to non-numeric results) [facility] ([facility] ) Total Protein 6.9 GM/DL 6.4-8.2 Normal (applies to non-numeric re sults) [facility] ([facility] Bilirubin,Total 0.2 mg/dL 0.2-1.0 Normal (applies to non-numeric results) [facility] ([facility] Albumin/Globulin Ratio 1.0 1.2-2.2 Below low normal [facility] ([facility] Albumin 3.5 GM/DL 3.2-5.2 Normal (applies to non-numeric resul ts) [facility] ([facility] ID Date Data Source [id number] 10/15/2020 11:29:00 AM EDT [facility] ([facility] [place] [place] [facility] Name Value Range Interpretation Code Description Data Leona rce(s) Supporting Document(s) Glucose, Fasting 44 mg/dL 70-100 Below low normal [facility] ([facility] Creatinine For GFR 0.65 mg/dL 0.55-1.30 Normal (applies to non -numeric results) [facility] ([facility] Blood Urea Nitrogen 14 mg/dL 7-18 Normal (applies to non-nume samantha results) [facility] ([facility] Glomerular Filtration Rate Laboratory test result Normal (applies to non- numeric results) [facility] ) <content>Units are mL/min/1.73 m2</content>
<content></content>
<content>Chronic Kidney Disease Staging per NKF:</content>
<content></content>
<content>Stage I & II GFR >=60 Normal to Mildly Decreased</content>
<content>Stage III GFR 30- 59 Moderately Decreased</content>
<content>Stage IV GFR 15-29 Severely Decreased</content>
<content>Stage V GFR <15 Very Little GFR Left</content>
<content>ESRD GFR <15 on SIZE MIXER</content>
<content></content> Potassium Serum 4.3 meq/L 3.5-5.1 Normal (applies to non-numeric results) [facility] ([facility] Chloride Level 111 meq/L 98-107 Above high normal [facility] ([facility] Sodium Level 142 meq/L 136-145 Normal (applies to non-numeric res ults) [facility] ([facility] Carbon Dioxide Level 26 meq/L 21-32 Normal (applies to non-num ana rosa results) [facility] ([facility] Anion Gap 5 meq/L 8-16 Below low normal [facility] ( [facility] Calcium Level 9.2 mg/dL 8.8-10.2 Normal (applies to non-numeric re sults) [facility] ([facility] ID Date Data Source [id number] 10/15/2020 11:29:00 AM EDT [facility] ([facility] Name Value Range Interpretation Code Description Data Leona rce(s) Supporting Document(s) Osmolality of Serum or Plasma 290 MOSM/KG 280-301 No rmal (applies to non-numeric results) [facility] ([facility] ) Thyrotropin [Units/volume] in Serum or Plasma 2.430 uIU/ML 0. 358-3.740 Normal (applies to non-numeric results) [facility] ([facility] ID Date Data Source [id number] 10/13/2020 06:30:00 PM EDT [facility] ([facility] Name Value Range Interpretation Code Description Data Leona rce(s) Supporting Document(s) Laboratory test finding (navigational concept) 179 mg/dL 7 0-105 Above high normal [facility] ([facility] ) Laboratory test finding (navigational concept) 40.0 % 3 8.0-51.0 Normal (applies to non-numeric results) [facility] ([facility] Laboratory test finding (navigational concept) 4.2 mg/dL 4 .5-5.3 Below low normal [facility] ([facility] ) Laboratory test finding (navigational concept) 141 meq/L 1 36-145 Normal (applies to non-numeric results) [facility] ([facility] Laboratory test finding (navigational concept) 3.8 meq/L 3 .5-5.1 Normal (applies to non-numeric results) [facility] ([facility] Laboratory test finding (navigational concept) [...] [facility] ID Date Data Source [id number] 10/10/2020 10:10:00 AM EDT [facility] ([facility] Name Value Range Interpretation Code Description Data Leona rce(s) Supporting Document(s) [facility] 214 mg/dL 65-109 Above high normal [facility] ([facility] ID Date Data Source [id number] 10/05/2020 08:30:00 PM EDT [facility] Name Value Range Interpretation Code Description Data Leona rce(s) Supporting Document(s) SARS coronavirus 2 RNA [Presence] in Res piratory specimen by DANIELA with probe detection NEGATIVE [facility] This lab was ordered by [facility] a nd reported by [facility]. ID Date Data Source [id number] 10/03/2020 04:34:00 PM EDT [facility] Name Value Range Interpretation Code Description Data Leona rce(s) Supporting Document(s) SARS coronavirus 2 RNA [Presence] in Res piratory specimen by DANIELA with probe detection NEGATIVE [facility] This lab was ordered by [facility] a nd reported by [facility]. ID Date Data Source [id number] 10/03/2020 04:14:00 PM EDT [facility] ([facility] Name Value Range Interpretation Code Description Data Leona rce(s) Supporting Document(s) Glucose [Mass/volume] in Capillary blood by Glucometer 217 mg/dL 83-110 Above high normal [facility] ([facility] ID Date Data Source [id number] 10/03/2020 02:57:00 PM EDT [facility] ([facility] Name Value Range Interpretation Code Description Data Leona rce(s) Supporting Document(s) Glucose [Mass/volume] in Capillary blood by Glucometer 77 mg/dL 83-110 Below low normal [facility] ([facility] ) ID Date Data Source [id number] 10/03/2020 02:21:00 PM EDT [facility] ([facility] Name Value Range Interpretation Code Description Data Leona rce(s) Supporting Document(s) Glucose [Mass/volume] in Capillary blood by Glucometer 31 mg/dL 83-110 Below lower panic limits [facility] ([facility] ID Date Data Source [id number] 10/03/2020 11:15:00 AM EDT [facility] ([facility] Name Value Range Interpretation Code Description Data Leona rce(s) Supporting Document(s) Venous Partial Pressure Co2 44.2 mmHg 38.0-50.0 Norm al (applies to non-numeric results) [facility] ([facility] Venous PH 7.375 units 7.330-7.430 Normal (applies to non-numeric res ults) [facility] ([facility] Venous Partial Pressure O2 41.4 mmHg 30.0-50.0 Roselia l (applies to non-numeric results) [facility] ([facility] Venous Total Co2 26.6 meq/L 24.0-28.0 Normal (applies to non-numeric results) [facility] ([facility] Venous Hco3 25.3 meq/L 23.0-27.0 Normal (applies to non-numeric resu lts) [facility] ([facility] Venous Base Excess -0.2 Normal (applies to non-numer ic results) [facility] ([facility] Venous Standard Hco3 23.9 meq/L Normal (applies to non-num ana rosa results) [facility] ([facility] Venous O2 Saturation 77.9 % 60.0-80.0 Normal (applies to non-num ana rosa results) [facility] ([facility] ID Date Data Source [id number] 10/03/2020 10:59:00 AM EDT [facility] ([facility] Name Value Range Interpretation Code Description Data Leona rce(s) Supporting Document(s) Thyrotropin [Units/volume] in Serum or Plasma 2.440 uIU/ML 0. 358-3.740 Normal (applies to non-numeric results) [facility] Magnesium [Mass/volume] in Serum or Plasma 2.2 mg/dL 1.8-2 .4 Normal (applies to non-numeric results) [facility] ([facility]) ID Date Data Source [id number] 10/03/2020 10:59:00 AM EDT [facility] ([facility] Name Value Range Interpretation Code Description Data Leona rce(s) Supporting Document(s) Glucose, Fasting 58 mg/dL 70-100 Below low normal [facility] ([facility] Creatinine For GFR 0.59 mg/dL 0.55-1.30 Normal (applies to non -numeric results) [facility] Blood Urea Nitrogen 16 mg/dL 7-18 Normal (applies to non-nume samantha results) [facility] ([facility] Glomerular Filtration Rate Laboratory test result Normal (applies to non- numeric results) [facility] ([facility] ) <content>Units are mL/min/1.73 m2</content>
<content></content>
<content>Chronic Kidney Disease Staging per NKF:</content>
<content></content>
<content>Stage I & II GFR >=60 Normal to Mildly Decreased</content>
<content>Stage III GFR 30- 59 Moderately Decreased</content>
<content>Stage IV GFR 15-29 Severely Decreased</content>
<content>Stage V GFR <15 Very Little GFR Left</content>
<content>ESRD GFR <15 on SIZE MIXER</content>
<content></content> Sodium Level 143 meq/L 136-145 Normal (applies to non-numeric res ults) [facility] ([facility] Potassium Serum 4.0 meq/L 3.5-5.1 Normal (applies to non-numeric results) [facility] ([facility] Chloride Level 111 meq/L 98-107 Above high normal [facility] ([facility] Carbon Dioxide Level 30 meq/L 21-32 Normal (applies to non-num ana rosa results) [facility] ([facility] Calcium Level 8.9 mg/dL 8.8-10.2 Normal (applies to non-numeric re sults) [facility] ([facility] Anion Gap 2 meq/L 8-16 Below low normal [facility] ( [facility] ID Date Data Source [id number] 10/03/2020 10:59:00 AM EDT [facility] ([facility] Name Value Range Interpretation Code Description Data Leona rce(s) Supporting Document(s) CPK Creatine Phosphokinase 77 U/L 26-192 Roselia l (applies to non-numeric results) [facility] ([facility] CK-MB Value Mass 1.5 ng/mL Normal (applies to non-numeric results) [facility] ([facility] MB/CK Relative Index 1.95 Normal (applies to non-num ana rosa results) [facility] ([facility] <content>DIAGNOSIS CRITERIA</content>
<content>MMB ng/ml Relative Index (RI)</content>
<content>NON-AMI < or = 5 N/A</content>
<content>GIL ZONE > 5 < or = 4</content>
<content>AMI > 5 > 4</content>
<content></content> Troponin I Laboratory test result Normal (applies to non-n umeric results) [facility] ([facility] <content>Troponin I Reference Interval f or [employer] [place] LOCI:</content>
<content></content>
<content>99th Percentile= 0.00-0.045 ng/ml</content>
<content></content>
<content>Risk Stratification:</content>
<content><= 0.10 ng/ml Decreased Risk for Adverse Clinical</content>
<content>Events.</content>
<content>0.10-1.50 ng/ml Increased Risk for Adverse Clinical</content>
<content>Events. Evaluation of additional</content>
<content>criterion and/or repeat testing in 2-6</content>
<content>hours is suggested to rule out myocardial</content>
<content>damage.</content>
<content>>= 1.50 ng/ml Indicative of Myocardial Injury.</content>
<content></content> ID Date Data Source [id number] 10/03/2020 10:59:00 AM EDT [facility] [place] [place] [facility] Name Value Range Interpretation Code Description Data Leona rce(s) Supporting Document(s) White Blood Count 7.5 10 4.0-10.0 Normal (applies to non-numeri c results) [facility] ([facility] Red Blood Count 5.02 10 4.00-5.40 Normal (applies to non-numeric results) [facility] ([facility] Hemoglobin 13.0 g/dL 12.0-15.5 Normal (applies to non-numeric resul ts) [facility] ([facility] Hematocrit 43.5 % 36.0-47.0 Normal (applies to non-numeric resul ts) [facility] ([facility] Mean Corpuscular Volume 86.7 fl 80.0-96.0 Normal ( applies to non-numeric results) [facility] ([facility] Mean Corpuscular Hemoglobin 25.9 pg 27.0-33.0 Below low normal [facility] ([facility] Mean Corpuscular HGB Conc 29.9 g/dL 32.0-36.5 Below low normal [facility] ([facility] Platelet Count, Automated 279 10 150-450 Normal (applies to non-numeric results) [facility] ([facility] ) Neutrophils % 60.9 % 36.0-66.0 Normal (applies to non-numeric re sults) [facility] ([facility] Red Cell Distribution Width 15.3 % 11.5-14.5 Above high normal [facility] ([facility] Lymph % 30.2 % 24.0-44.0 Normal (applies to non-numeric resul ts) [facility] ([facility] Lucas % 6.3 % 2.0-8.0 Normal (applies to non-numeric resul ts) [facility] ([facility] Immature Granulocyte % 0.3 % 0-3.0 Normal (applies to non-n umeric results) [facility] ([facility] Baso % 0.7 % [...] resul ts) [facility] ([facility] Lucas # 0.5 10 0.0-0.8 Normal (applies to non-numeric resul ts) [facility] ([facility] Eos # 0.1 10 0.0-0.5 Normal (applies to non-numeric resul ts) [facility] ([facility] Baso # 0.1 10 0.0-0.2 Normal (applies to non-numeric resul ts) [facility] ([facility] ID Date Data Source [id number] 09/16/2020 03:14:00 PM EDT [facility] [place] [place] [facility] Name Value Range Interpretation Code Description Data Leona rce(s) Supporting Document(s) RBC 4.78 10E6/uL .-6 SHANNA[facility] ([facility] NORMAL RANGES Age WBC RBC HGB HCT [...] HCT IS 5% LESS SOURCE FOR DATA: [employer]ife[employer] 1800 [employer]PERATION MANUAL( AUTOMATED BLOOD COUNTS AND [...] >32 mL/min Normal WBC 7.5 10E3/uL 4.1-10.9 [facility] ([facility] NORMAL RANGES Age WBC RBC HGB [...] HCT IS 5% LESS SOURCE FOR DATA: [employer] 1800 OPERATION MANUAL( AUTOMATED BLOOD COUNTS AND [...] >32 mL/min Normal HGB 12.8 g/dL 12.0-18.0 [facility] ([facility] NORMAL RANGES Age WBC [...] >32 mL/min Normal MCH 26.8 pg 26.0-32.0 [facility] ([facility] NORMAL RANGES Age WBC [...] HCT IS 5% LESS SOURCE FOR DATA: [employer] 1800 OPERATION MANUAL( AUTOMATED BLOOD COUNTS AND [...] >32 mL/min Normal HCT 42.1 % 37.0-51.0 [facility] ([facility] [...] HCT IS 5% LESS SOURCE FOR DATA: [employer] 1800 OPERATION MANUAL( AUTOMATED BLOOD COUNTS AND [...] >32 mL/min Normal MCV 88.1 fL 80.0-97.0 [facility] ([facility] NORMAL [...] HCT IS 5% LESS SOURCE FOR DATA: [employer] 1800 OPERATION MANUAL( AUTOMATED BLOOD COUNTS AND [...] >32 mL/min Normal PLT 325 10E3/uL 140-440 [facility] ([facility] NORMAL RANGES Age WBC RBC [...] HCT IS 5% LESS SOURCE FOR DATA: [employer] 1800 OPERATION MANUAL( AUTOMATED BLOOD COUNTS AND [...] MCHC 30.4 g/dL 31.0-36.0 Below low normal [facility] ( [...] HCT IS 5% LESS SOURCE FOR DATA: [employer] 1800 OPERATION MANUAL( AUTOMATED BLOOD COUNTS AND [...] >32 mL/min Normal Neut% 69.3 % 37.0-92.0 [facility] NORMAL RANGES [...] HCT IS 5% LESS SOURCE FOR DATA: [employer] 1800 OPERATION MANUAL( AUTOMATED BLOOD COUNTS AND [...] >32 mL/min Normal Lym% 24.4 % 10.0-58.5 [facility] ([facility] NORMAL RANGES Age [...] HCT IS 5% LESS SOURCE FOR DATA: [employer] 1800 OPERATION MANUAL( AUTOMATED BLOOD COUNTS AND [...] RDW-CV 15.6 % 11.5-14.5 Above high normal [facility] ([facility] NORMAL RANGES Age WBC RBC [...] HCT IS 5% LESS SOURCE FOR DATA: [employer] 1800 OPERATION MANUAL( AUTOMATED BLOOD COUNTS AND [...] >32 mL/min Normal MXD% 6.3 % 0.1-24.0 [facility] NORMAL RANGES Age [...] >32 mL/min Normal Lym# 1.8 10E3/uL 0.6-4.1 [facility] NORMAL RANGES Age WBC RBC [...] HCT IS 5% LESS SOURCE FOR DATA: [employer] 1800 OPERATION MANUAL( AUTOMATED BLOOD COUNTS AND [...] >32 mL/min Normal MXD# 0.5 10E3/uL 0.0-1.8 [facility] ([facility] NORMAL RANGES Age WBC RBC [...] HCT IS 5% LESS SOURCE FOR DATA: [employer] 1800 OPERATION MANUAL( AUTOMATED BLOOD COUNTS AND [...] >32 mL/min Normal Neut# 5.2 % 2.0-7.8 [facility] ([facility] NORMAL RANGES Age [...] HCT IS 5% LESS SOURCE FOR DATA: [employer] 1800 OPERATION MANUAL( AUTOMATED BLOOD COUNTS AND [...] HCT IS 5% LESS SOURCE FOR DATA: [employer] 1800 OPERATION MANUAL( AUTOMATED BLOOD COUNTS AND [...] >32 mL/min Normal ID Date Data Source [id number] 09/16/2020 03:14:00 PM EDT [facility] ([facility] [facility] Name Value Range Interpretation Code Description Data Leona rce(s) Supporting Document(s) Glu 170 mg/dL 70-110 Above high normal [facility] ([facility] NORMAL RANGES [...] HCT IS 5% LESS SOURCE FOR DATA: [employer] 1800 OPERATION MANUAL( AUTOMATED BLOOD COUNTS AND [...] HCT IS 5% LESS SOURCE FOR DATA: [employer] 1800 OPERATION MANUAL( AUTOMATED BLOOD COUNTS AND [...] above >32 mL/min Normal BUN 18 mg/dL 8- [facility] ([facility] NORMAL RANGES Age WBC [...] HCT IS 5% LESS SOURCE FOR DATA: [employer] 1800 OPERATION MANUAL( AUTOMATED BLOOD COUNTS AND [...] >32 mL/min Normal K 4.5 mmol/L 3.5-5.1 [facility] ([facility] NORMAL RANGES Age WBC RBC HGB [...] HCT IS 5% LESS SOURCE FOR DATA: [employer] 1800 OPERATION MANUAL( AUTOMATED BLOOD COUNTS AND [...] >32 mL/min Normal Na 139 mmol/L 136-145 [facility] ([facility] NORMAL RANGES Age WBC [...] HCT IS 5% LESS SOURCE FOR DATA: [employer] DYN 1800 OPERATION MANUAL( AUTOMATED BLOOD COUNTS [...] >32 mL/min Normal BUN/Creatinine Ratio 21.5 CALC [facility] ([facility] NORMAL RANGES Age [...] HCT IS 5% LESS SOURCE FOR DATA: [employer]rent 1800 OPERATION MANUAL( AUTOMATED BLOOD COUNTS AND [...] >32 mL/min Normal CL 103.6 mmol/L 98.0-107.0 [facility] ([facility] NORMAL RANGES Age WBC RBC [...] HCT IS 5% LESS SOURCE FOR DATA: [employer] 1800 OPERATION MANUAL( AUTOMATED BLOOD COUNTS AND [...] Co2 20.9 mmol/L 22.0-29.0 Below low normal [facility] NORMAL RANGES Age [...] HCT IS 5% LESS SOURCE FOR DATA: [employer] 1800 OPERATION MANUAL( AUTOMATED BLOOD COUNTS AND [...] >32 mL/min Normal Alb 4.2 g/dL 3.4-4.8 [facility] NORMAL RANGES [...] HCT IS 5% LESS SOURCE FOR DATA: [employer] 1800 OPERATION MANUAL( AUTOMATED BLOOD COUNTS AND [...] TP 6.4 g/dL 6.6-8.7 Below low normal [facility] ( [...] HCT IS 5% LESS SOURCE FOR DATA: [employer]rent 1800 OPERATION MANUAL( AUTOMATED BLOOD COUNTS AND [...] >32 mL/min Normal CA 9.7 mg/dL 8.6-10.2 [facility] NORMAL RANGES [...] HCT IS 5% LESS SOURCE FOR DATA: [employer] 1800 OPERATION MANUAL( AUTOMATED BLOOD COUNTS AND [...] >32 mL/min Normal Globulin 2.2 CALC [facility] ([facility] NORMAL RANGES Age [...] HCT IS 5% LESS SOURCE FOR DATA: [employer] 1800 OPERATION MANUAL( AUTOMATED BLOOD COUNTS AND [...] >32 mL/min Normal Alp 99.2 U/L 35-129 SHANNAN ([facility] NORMAL RANGES Age WBC [...] HCT IS 5% LESS SOURCE FOR DATA: [employer] 1800 OPERATION MANUAL( AUTOMATED BLOOD COUNTS AND [...] above >32 mL/min Normal A/G Ratio 1.9 [facility] NORMAL RANGES Age [...] HCT IS 5% LESS SOURCE FOR DATA: [employer] 1800 OPERATION MANUAL( AUTOMATED BLOOD COUNTS AND [...] >32 mL/min Normal Tbili 0.16 mg/dL 0.0-1.2 TRAK[facility] ([facility] NORMAL RANGES Age WBC RBC HGB HCT MCV PLT Adult M 4.1-10.9 4.20-6.30 12.0-18.0 37.0-51.0 80- 140-440 Adult F 4.1-10.9 4.04-5.48 12.0-18.0 37.0-51.0 [...] HCT IS 5% LESS SOURCE FOR DATA: [employer] DYN 1800 OPERATION MANUAL( AUTOMATED BLOOD COUNTS [...] mL/min Normal Alt (SGPT) 12 U/L 0-41 [facility] ([facility] NORMAL RANGES Age WBC [...] HCT IS 5% LESS SOURCE FOR DATA: [employer] 1800 OPERATION MANUAL( AUTOMATED BLOOD COUNTS AND [...] mL/min Normal Ast (Sgot) 12 U/L 0-40 [facility] ([facility] NORMAL RANGES Age WBC RBC [...] HCT IS 5% LESS SOURCE FOR DATA: [employer] 1800 OPERATION MANUAL( AUTOMATED BLOOD COUNTS AND [...] HCT IS 5% LESS SOURCE FOR DATA: [employer] 1800 OPERATION MANUAL( AUTOMATED BLOOD COUNTS AND [...] >32 mL/min Normal Anion Gap 19 mmol/L [facility] ([facility] [...] HCT IS 5% LESS SOURCE FOR DATA: [employer] 1800 OPERATION MANUAL( AUTOMATED BLOOD COUNTS AND [...] HCT IS 5% LESS SOURCE FOR DATA: [employer]rent 1800 OPERATION MANUAL( AUTOMATED BLOOD COUNTS AND [...] and above >32 mL/min Normal eGFR Non-Afr. Serbian 65 # [facility] ([facility] [...] HCT IS 5% LESS SOURCE FOR DATA: [employer] 1800 OPERATION MANUAL( AUTOMATED BLOOD COUNTS AND [...] >32 mL/min Normal ID Date Data Source [id number] 09/16/2020 03:14:00 PM EDT [facility] ([facility] Name Value Range Interpretation Code Description Data Leona rce(s) Supporting Document(s) Hemoglobin A1c/Hemoglobin.total in Blood 6.5 % 4.8-5.6 Above high normal [facility] ([facility] <content>Prediabetes: 5.7 - 6.4</content >
<content>Diabetes: >6.4</content>
<content>Glycemic control for adults with diabetes: <7.0</content>
<content></content> ID Date Data Source [id number] 09/11/2020 10:43:00 AM EDT [facility] ([facility]) Name Value Range Interpretation Code Description Data Leona rce(s) Supporting Document(s) Hemoglobin A1c/Hemoglobin.total in Blood 153 [facility] ([facility]) Glucose [Mass/volume] in Serum or Plasma Laboratory test result [facility] ([facility] ) ID Date Data Source [id number] 07/13/2020 05:07:00 PM EDT [facility] ([facility] Name Value Range Interpretation Code Description Data Leona rce(s) Supporting Document(s) Glucose [Mass/volume] in Capillary blood by Glucometer 177 mg/dL 83-110 Above high normal [facility] ([facility] Doctor Notified ID Date Data Source [id number] 07/13/2020 05:07:00 PM EDT [facility] ([facility]) Name Value Range Interpretation Code Description Data Leona rce(s) Supporting Document(s) Glucose [Mass/volume] in Capillary blood by Glucometer 177 83- 110 [facility] ([facility]) ID Date Data Source [id number] 07/13/2020 03:33:00 PM EDT [facility] ([facility] Name Value Range Interpretation Code Description Data Leona rce(s) Supporting Document(s) Laboratory test finding (navigational concept) 229 mg/dL 7 0-105 Above high normal [facility] ([facility] ) Laboratory test finding (navigational concept) 35.0 % 3 8.0-51.0 Below low normal [facility] ([facility] ) Laboratory test finding (navigational concept) 138 meq/L 1 36-145 Normal (applies to non-numeric results) [facility] ([facility] Laboratory test finding (navigational concept) 4.3 meq/L 3 .5-5.1 Normal (applies to non-numeric results) [facility] ([facility] Laboratory test finding (navigational concept) 4.7 mg/dL 4 .5-5.3 Normal (applies to non-numeric results) [facility] ([facility] Laboratory test finding (navigational concept) 100 meq/L 9 8-109 Normal (applies to non-numeric results) [facility] ([facility] Laboratory test finding (navigational concept) 31.0 MM/L 2 3.0-27.0 Above high normal [facility] ([facility] ) Laboratory test finding (navigational concept) 26 mg/dL 8 -26 Normal (applies to non-numeric results) [facility] ([facility]) Laboratory test finding (navigational concept) 1.6 mg/dL 0 .6-1.3 Above high normal [facility] ([facility] ) ID Date Data Source [id number] 07/13/2020 03:33:00 PM EDT [facility] Name Value Range Interpretation Code Description Data Leona rce(s) Supporting Document(s) Sodium [Moles/volume] in Blood 138 136-145 [facility] ID Date Data Source [id number] 07/13/2020 03:33:00 PM EDT [facility] Name Value Range Interpretation Code Description Data Leona rce(s) Supporting Document(s) Chloride [Moles/volume] in Blood 100 98-109 [facility] ([facility]) ID Date Data Source [id number] 07/13/2020 03:33:00 PM EDT [facility] Name Value Range Interpretation Code Description Data Leona rce(s) Supporting Document(s) Potassium [Moles/volume] in Blood 4.3 3.5-5.1 [facility] ([facility]) ID Date Data Source [id number] 07/13/2020 03:33:00 PM EDT [facility] ([facility]) Name Value Range Interpretation Code Description Data Leona rce(s) Supporting Document(s) Glucose [Mass/volume] in Blood 229 70-105 [facility] ([facility]) ID Date Data Source [id number] 07/13/2020 03:33:00 PM EDT [facility] ([facility] Name Value Range Interpretation Code Description Data Leona rce(s) Supporting Document(s) Calcium.ionized [Moles/volume] in Blood 4.7 4.5-5.3 [facility] ([facility]) ID Date Data Source [id number] 07/13/2020 03:33:00 PM EDT [facility] ([facility] Name Value Range Interpretation Code Description Data Leona rce(s) Supporting Document(s) Carbon dioxide, total [Moles/volume] in Blood 31.0 23.0-27.0 [facility] ([facility]) ID Date Data Source [id number] 07/13/2020 03:33:00 PM EDT [facility] ([facility] Name Value Range Interpretation Code Description Data Leona rce(s) Supporting Document(s) Urea nitrogen [Mass/volume] in Blood 26 8-26 [facility] ([facility]) ID Date Data Source [id number] 07/13/2020 03:33:00 PM EDT [facility] ([facility] Name Value Range Interpretation Code Description Data Leona rce(s) Supporting Document(s) Creatinine [Mass/volume] in Blood 1.6 0.6-1.3 [facility] ([facility]) ID Date Data Source [id number] 07/13/2020 03:33:00 PM EDT [facility] ([facility] Name Value Range Interpretation Code Description Data Leona rce(s) Supporting Document(s) Laboratory test finding (navigational concept) 35.0 % 38.0-51.0 [facility] ([facility]) Laboratory test finding (navigational concept) 229 mg/dL 70-105 [facility] ([facility]) Laboratory test finding (navigational concept) 138 meq/L 136-145 [facility] ([facility]) Laboratory test finding (navigational concept) 4.3 meq/L 3.5-5.1 [facility] ([facility]) Laboratory test finding (navigational concept) 4.7 mg/dL 4.5-5.3 [facility] ([facility]) Laboratory test finding (navigational concept) 100 meq/L 98-109 [facility] ([facility]) Laboratory test finding (navigational concept) 31.0 MM/L 23.0-27.0 [facility] ([facility]) Laboratory test finding (navigational concept) 26 mg/dL 8-26 [facility] ([facility]) Creatinine [Mass/volume] in Serum or Plasma 1.6 mg/dL 0.6-1.3 [facility] ([facility]) ID Date Data Source [id number] 07/13/2020 03:33:00 PM EDT [facility] ([facility]) Name Value Range Interpretation Code Description Data Leona rce(s) Supporting Document(s) Hematocrit [Volume Fraction] of Blood 35.0 38.0-51.0 [facility] ([facility]) ID Date Data Source [id number] 07/13/2020 03:12:00 PM EDT [facility] ([facility] Name Value Range Interpretation Code Description Data Leona rce(s) Supporting Document(s) Glucose [Mass/volume] in Capillary blood by Glucometer 245 mg/dL 83-110 Above high normal [facility] ([facility] ID Date Data Source [id number] 07/13/2020 03:12:00 PM EDT [facility] ([facility]) Name Value Range Interpretation Code Description Data Leona rce(s) Supporting Document(s) Glucose [Mass/volume] in Capillary blood by Glucometer 245 mg/dL 83- 110 [facility] ([facility]) ID Date Data Source [id number] 07/05/2020 01:38:00 PM EDT [facility] ([facility] Name Value [...] Normal (a pplies to non-numeric results) [facility] Cannabinoids Urine Laboratory test result Normal (applies to non-numeric results) [facility] ([facility] Cocaine Metabolite Urine Laboratory test result Normal (applies to non-numeric results) [facility] Phencyclidine Urine Laboratory test result Roselia l (applies to non-numeric results) [facility] ([facility] ALL PRESUMPTIVE POSITIVE FINDINGS AR [...] Normal (applies t o non-numeric results) [facility] ([facility] ID Date Data Source [id number] 07/05/2020 01:38:00 PM EDT [facility] ([facility] Name Value Range Interpretation Code Description Data Leona rce(s) Supporting Document(s) Appearance, Urine RFX Laboratory test result Nor mal (applies to non-numeric results) [facility] ([facility] Color, Urine RFX Laboratory test result Normal ( applies to non-numeric results) [facility] ([facility] PH,Urine RFX 6.0 units 5.0-9.0 Normal (applies to non-numeric res ults) [facility] Protein, Urine Auto RFX Laboratory test result N ormal (applies to non-numeric results) [facility] ([facility] Specific [place] Ur Auto RFX 1.006 1.002-1.035 Nor mal (applies to non-numeric results) [facility] ([facility] Glucose, Urine (Ua) Auto RFX Laboratory test result Above high normal [facility] ([facility] Urobilinogen, Urine Auto RFX 0.2 mg/dL 0.0-2.0 Nor mal (applies to non-numeric results) [facility] ([facility] Ketone, Urine Auto RFX Laboratory test result No rmal (applies to non-numeric results) [facility] ([facility] Nitrite, Urine Auto RFX Laboratory test result N ormal (applies to non-numeric results) [facility] ([facility] Bilirubin, Urine Auto RFX Laboratory test result Normal (applies to non- numeric results) [facility] ([facility] Leukocyte Esterase Ur Auto RFX Laboratory test result Normal (applies to non- numeric results) [facility] ([facility] Blood, Urine Blood RFX Laboratory test result Above high n ormal [facility] ([facility] Bacteria, Urine Auto RFX Laboratory test result Normal (applies to non-numeric results) [facility] ([facility] RBC, Urine Auto RFX 3 /HPF 0-3 Normal (applies to non-nume samantha results) [facility] ([facility] WBC, Urine Auto RFX 0 /HPF 0-3 Normal (applies to non-nume samantha results) [facility] ([facility] Hyaline Cast, Urine Auto RFX 0 /LPF 0-1 Normal (appl ies to non-numeric results) [facility] ([facility] Squam Epithelial Cell Ur Aurfx 0 /HPF 0-6 N ormal (applies to non-numeric results) [facility] ([facility] ID Date Data Source [id number] 07/05/2020 01:38:00 PM EDT [facility] Name Value Range Interpretation Code Description Data Leona rce(s) Supporting Document(s) Phencyclidine [Presence] in Urine by Screen method Laboratory test re [facility]ult [facility] ID Date Data Source [id number] 07/05/2020 01:38:00 PM EDT [facility] Name Value Range Interpretation Code Description Data Leona rce(s) Supporting Document(s) Opiates [Presence] in Urine by Screen method Laboratory test result [facility] ([facility] ID Date Data Source [id number] 07/05/2020 01:38:00 PM EDT [facility] ([facility] Name Value Range Interpretation Code Description Data Leona rce(s) Supporting Document(s) Methadone [Presence] in Urine by Screen method Laboratory test result [facility] ([facility] ID Date Data Source [id number] 07/05/2020 01:38:00 PM EDT [facility] ([facility] Name Value Range Interpretation Code Description Data Leona rce(s) Supporting Document(s) Benzoylecgonine [Presence] in Urine by Screen method Laboratory rene t result [facility] ([facility] ) ID Date Data Source [id number] 07/05/2020 01:38:00 PM EDT [facility] ([facility]) Name Value Range Interpretation Code Description Data Leona rce(s) Supporting Document(s) Cannabinoids [Presence] in Urine by Screen method Laboratory test res ult [facility] ([facility] ) ID Date Data Source [id number] 07/05/2020 01:38:00 PM EDT [facility] [facility] Name Value Range Interpretation Code Description Data Leona rce(s) Supporting Document(s) Benzodiazepines [Presence] in Urine by Screen method Laboratory rene t result [facility] ([facility] ) ID Date Data Source [id number] 07/05/2020 01:38:00 PM EDT [facility] ([facility] ) Name Value Range Interpretation Code Description Data Leona rce(s) Supporting Document(s) Barbiturates [Presence] in Urine by Screen method Laboratory test res ult [facility] ([facility] ) ID Date Data Source [id number] 07/05/2020 01:38:00 PM EDT [facility] ([facility] ) Name Value Range Interpretation Code Description Data Leona rce(s) Supporting Document(s) Amphetamines [Presence] in Urine by Screen method Laboratory test res ult [facility] ([facility] ) ID Date Data Source [id number] 07/05/2020 01:38:00 PM EDT [facility] ([facility] ) Name Value Range Interpretation Code Description Data Leona rce(s) Supporting Document(s) Urine Hyaline Casts (Auto) 0 0-1 [facility] ([facility] ) ID Date Data Source [id number] 07/05/2020 01:38:00 PM EDT [facility] ([facility]) Name Value Range Interpretation Code Description Data Leona rce(s) Supporting Document(s) Urine Color Laboratory test result MEDEN T ([facility]) Urine Appearance Laboratory test result [facility] ([facility]) pH of Urine 6.0 5.0-9.0 [facility] ([facility]) Urine Specific [place] 1.006 1.002-1.035 M EDENT ([facility]) Urine Protein Laboratory test result [facility] ([facility]) Urine Glucose (Ua) Laboratory test result [facility] ([facility]) Urine Ketones Laboratory test result [facility] ([facility]) Urine Bilirubin Laboratory test result [facility] ([facility]) Urine Urobilinogen 0.2 0.0-2.0 [facility] ([facility] ) Urine Nitrite Laboratory test result [facility] ([facility]) Urine Leukocyte Esterase Laboratory test result [facility] ([facility]) Urine WBC (Auto) 0 0-3 [facility] ([facility]) Urine Blood Laboratory test result [facility] T ([facility]) Urine RBC (Auto) 3 0-3 [facility] ([facility]) Urine Bacteria (Auto) Laboratory test result [facility] ([facility]) Urine Squamous Epithelial Cells 0 0-6 [facility] ([facility]) ID Date Data Source [id number] 07/05/2020 12:42:00 PM EDT [facility] [place] [facility] Name Value Range Interpretation Code Description Data Leona rce(s) Supporting Document(s) Blood Culture Laboratory test result [facility] ([facility] No growth after 72 hours . All specimens observed for 5 days. Results final at that time. No growth after 48 hours . All specimens observed for 5 days. Results final at that time. No growth after 24 hours . All specimens observed for 5 days. Results final at that time. NO GROWTH AFTER 5 DAYS ID Date Data Source [id number] 07/05/2020 12:42:00 PM EDT [facility] ([facility]) Name Value Range Interpretation Code Description Data Leona rce(s) Supporting Document(s) Bacteria identified in Blood by Culture Laboratory test result [facility] ([facility]) ID Date Data Source [id number] 07/05/2020 12:41:00 PM EDT [facility] ([facility] [employer] [facility] Name Value Range Interpretation Code Description Data Leona rce(s) Supporting Document(s) Blood Culture Laboratory test result [facility] ([facility] No growth after 72 hours . All specimens observed for 5 days. Results final at that time. No growth after 48 hours . All specimens observed for 5 days. Results final at that time. No growth after 24 hours . All specimens observed for 5 days. Results final at that time. NO GROWTH AFTER 5 DAYS ID Date Data Source [id number] 07/05/2020 12:41:00 PM EDT [facility] ([facility] Name Value Range Interpretation Code Description Data Leona rce(s) Supporting Document(s) Thyrotropin [Units/volume] in Serum or Plasma 7.580 uIU/ML 0. 358-3.740 Above high normal [facility] ([facility] ID Date Data Source [id number] 07/05/2020 12:41:00 PM EDT [facility] ([facility] Name Value [...] Little GFR Left</content>
<content>ESRD GFR <15 on SIZE MIXER</content>
<content></content> Carbon Dioxide Level 29 meq/L 21-32 Normal (applies to non-num ana rosa results) [facility] ([facility] Potassium Serum 4.4 meq/L 3.5-5.1 Normal (applies to non-numeric results) [facility] ([facility] This specimen has an elevated potassium level but there is NO visible hemolysis noted. Chloride Level 106 meq/L 98-107 Normal (applies to non-numeric r esults) [facility] ([facility] Calcium Level 9.7 mg/dL 8.8-10.2 Normal (applies to non-numeric re sults) [facility] ([facility] Anion Gap 4 meq/L 8-16 Below low normal [facility] ( [facility] ID Date Data Source [id number] 07/05/2020 12:41:00 PM EDT [facility] [place] [facility] Name Value Range Interpretation Code Description Data Leona rce(s) Supporting Document(s) Ast/Sgot 16 U/L 7-37 Normal (applies to non-numeric resul ts) [facility] ([facility] Alt/SGPT 21 U/L 12-78 Normal (applies to non-numeric resul ts) [facility] ([facility] Alkaline Phosphatase 89 U/L 45-117 Normal (applies to non-num ana rosa results) [facility] ([facility] Bilirubin,Total 0.4 mg/dL 0.2-1.0 Normal (applies to non-numeric results) [facility] ([facility] Bilirubin,Direct Laboratory test result 0.0-0.2 Normal ( applies to non-numeric results) [facility] ([facility] ) Albumin 4.0 GM/DL 3.2-5.2 Normal (applies to non-numeric resul ts) [facility] ([facility] Albumin/Globulin Ratio 1.2 1.2-2.2 Normal (applies to non-n umeric results) [facility] ([facility] Total Protein 7.3 GM/DL 6.4-8.2 Normal (applies to non-numeric re sults) [facility] ([facility] ID Date Data Source [id number] 07/05/2020 12:41:00 PM EDT [facility] ([facility] Name Value Range Interpretation Code Description Data Leona rce(s) Supporting Document(s) CK-MB Value Mass 1.6 ng/mL Normal (applies to non-numeric results) [facility] ([facility] CPK Creatine Phosphokinase 90 U/L 26-192 Roselia l (applies to non-numeric results) [facility] ([facility] ) MB/CK Relative Index 1.78 Normal (applies to non-num ana rosa results) [facility] ([facility] <content>DIAGNOSIS CRITERIA</content>
<content>MMB ng/ml Relative Index (RI)</content>
<content>NON-AMI < or = 5 N/A</content>
<content>GIL ZONE > 5 < or = 4</content>
<content>AMI > 5 > 4</content>
<content></content> Troponin I Laboratory test result Normal (applies to non-n umeric results) [facility] ([facility] <content>Troponin I Reference Interval f or Siemens [place] LOCI:</content>
<content></content>
<content>99th Percentile= 0.00-0.045 ng/ml</content>
<content></content>
<content>Risk Stratification:</content>
<content><= 0.10 ng/ml Decreased Risk for Adverse Clinical</content>
<content>Events.</content>
<content>0.10-1.50 ng/ml Increased Risk for Adverse Clinical</content>
<content>Events. Evaluation of additional</content>
<content>criterion and/or repeat testing in 2-6</content>
<content>hours is suggested to rule out myocardial</content>
<content>damage.</content>
<content>>= 1.50 ng/ml Indicative of Myocardial Injury.</content>
<content></content> ID Date Data Source [id number] 07/05/2020 12:41:00 PM EDT [facility] Name Value Range Interpretation Code Description Data Leona rce(s) Supporting Document(s) Ammonia [Mass/volume] in Blood 30 uMOL/L N ormal (applies to non-numeric results) [facility] ([facility] ID Date Data Source [id number] 07/05/2020 12:41:00 PM EDT [facility] ([facility] Name Value [...] [facility] ID Date Data Source [id number] 07/05/2020 12:41:00 PM EDT [facility] ([facility] Name Value Range Interpretation Code Description Data Leona rce(s) Supporting Document(s) White Blood Count 6.0 10 4.0-10.0 Normal (applies to non-numeri c results) [facility] ([facility] Hematocrit 41.6 % 36.0-47.0 Normal (applies to non-numeric resul ts) [facility] ([facility] Red Blood Count 4.57 10 4.00-5.40 Normal (applies to non-numeric results) [facility] ([facility] Hemoglobin 12.5 g/dL 12.0-15.5 Normal (applies to non-numeric resul ts) [facility] ([facility] Mean Corpuscular Volume 91.0 fl 80.0-96.0 Normal ( applies to non-numeric results) [facility] ([facility] ) Mean Corpuscular Hemoglobin 27.4 pg 27.0-33.0 Norm al (applies to non-numeric results) [facility] ([facility] ) Mean Corpuscular HGB Conc 30.0 g/dL 32.0-36.5 Below low normal [facility] ([facility] Neutrophils % 44.0 % 36.0-66.0 Normal (applies to non-numeric re sults) [facility] ([facility] Red Cell Distribution Width 16.0 % 11.5-14.5 Above high normal [facility] ([facility] Platelet Count, Automated 272 10 150-450 Normal (applies to non-numeric results) [facility] ([facility] ) Lucas % 6.5 % 2.0-8.0 Normal (applies to non-numeric resul ts) [facility] ([facility] Eos % 5.5 % 0.0-3.0 Above high normal [facility] ([facility] Lymph % 43.0 % 24.0-44.0 Normal (applies to non-numeric resul ts) [facility] ([facility] Immature Granulocyte % 0.3 % 0-3.0 Normal (applies to non-n umeric results) [facility] ([facility] Nucleated Red Blood Cell % 0.0 % 0-0 Normal (applies to n on-numeric results) [facility] ([facility] Baso % 0.7 % 0.0-1.0 Normal (applies to non-numeric resul ts) [facility] ([facility] Lucas # 0.4 10 0.0-0.8 Normal (applies to non-numeric resul ts) [facility] ([facility] Neutrophils # 2.6 10 1.5-8.5 Normal (applies to non-numeric re sults) [facility] ([facility] Lymph # 2.6 10 1.5-5.0 Normal (applies to non-numeric resul ts) [facility] ([facility] Baso # 0.0 10 0.0-0.2 Normal (applies to non-numeric resul ts) [facility] ([facility] Eos # 0.3 10 0.0-0.5 Normal (applies to non-numeric resul ts) [facility] ([facility] ID Date Data Source [id number] 07/05/2020 12:41:00 PM EDT [facility] ([facility]) Name Value Range Interpretation Code Description Data Leona rce(s) Supporting Document(s) Erythrocyte mean corpuscular hemoglobin concentration [Mass/volume] by Automated count 30.0 32.0-36.5 [facility] ([facility]) ID Date Data Source [id number] 07/05/2020 12:41:00 PM EDT [facility] ([facility]) Name Value Range Interpretation Code Description Data Leona rce(s) Supporting Document(s) Neutrophils [#/volume] in Blood by Automated count 44.0 36.0-66 .0 [facility] ([facility]) ID Date Data Source [id number] 07/05/2020 12:41:00 PM EDT [facility] ([facility]) Name Value Range Interpretation Code Description Data Leona rce(s) Supporting Document(s) Erythrocyte distribution width [Ratio] by Automated count 16.0 11.5-14.5 [facility] ([facility]) ID Date Data Source [id number] 07/05/2020 12:41:00 PM EDT [facility] ([facility]) Name Value Range Interpretation Code Description Data Leona rce(s) Supporting Document(s) Erythrocyte mean corpuscular hemoglobin [Entitic mass] by Au tomated count 27.4 27.0-33.0 [facility] ([facility] ID Date Data Source [id number] 07/05/2020 12:41:00 PM EDT [facility] ([facility]) Name Value Range Interpretation Code Description Data Leona rce(s) Supporting Document(s) Erythrocyte mean corpuscular volume [Entitic volume] by Auto mated count 91.0 80.0-96.0 [facility] ([facility]) ID Date Data Source [id number] 07/05/2020 12:41:00 PM EDT [facility] ([facility]) Name Value Range Interpretation Code Description Data Leona rce(s) Supporting Document(s) Erythrocytes [#/volume] in Blood by Automated count 4.57 4.00-5 .40 [facility] ([facility]) ID Date Data Source [id number] 07/05/2020 12:41:00 PM EDT [facility] ([facility]) Name Value Range Interpretation Code Description Data Leona rce(s) Supporting Document(s) Platelets [#/volume] in Blood by Automated count 272 150-450 [facility] ([facility]) ID Date Data Source [id number] 07/05/2020 12:41:00 PM EDT [facility] ([facility]) Name Value Range Interpretation Code Description Data Leona rce(s) Supporting Document(s) Monocytes/100 leukocytes in Blood by Automated count 6.5 2.0-8 .0 [facility] ([facility]) ID Date Data Source [id number] 07/05/2020 12:41:00 PM EDT [facility] ([facility]) Name Value Range Interpretation Code Description Data Leona rce(s) Supporting Document(s) Eosinophils/100 leukocytes in Blood by Automated count 5.5 0.0 -3.0 [facility] ([facility]) ID Date Data Source [id number] 07/05/2020 12:41:00 PM EDT [facility] ([facility]) Name Value Range Interpretation Code Description Data Leona rce(s) Supporting Document(s) Basophils/100 leukocytes in Blood by Automated count 0.7 0.0-1 .0 [facility] ([facility]) ID Date Data Source [id number] 07/05/2020 12:41:00 PM EDT [facility] ([facility]) Name Value Range Interpretation Code Description Data Leona rce(s) Supporting Document(s) Immature granulocytes/100 leukocytes in Blood by Automated count 0.3 0-3.0 [facility] ([facility]) ID Date Data Source [id number] 07/05/2020 12:41:00 PM EDT [facility] ([facility]) Name Value Range Interpretation Code Description Data Leona rce(s) Supporting Document(s) Nucleated erythrocytes/100 leukocytes [Ratio] in Blood by Au tomated count 0.0 0-0 [facility] ([facility] ID Date Data Source [id number] 07/05/2020 12:41:00 PM EDT [facility] ([facility]) Name Value Range Interpretation Code Description Data Leona rce(s) Supporting Document(s) Neutrophils [#/volume] in Blood by Automated count 2.6 1.5-8.5 [facility] ([facility]) ID Date Data Source [id number] 07/05/2020 12:41:00 PM EDT [facility] ([facility]) Name Value Range Interpretation Code Description Data Leona rce(s) Supporting Document(s) Monocytes [#/volume] in Blood by Automated count 0.4 0.0-0.8 [facility] ([facility]) ID Date Data Source [id number] 07/05/2020 12:41:00 PM EDT [facility] ([facility]) Name Value Range Interpretation Code Description Data Leona rce(s) Supporting Document(s) Hemoglobin [Mass/volume] in Blood 12.5 12.0-15.5 [facility] ([facility]) ID Date Data Source [id number] 07/05/2020 12:41:00 PM EDT [facility] ([facility]) Name Value Range Interpretation Code Description Data Leona rce(s) Supporting Document(s) Leukocytes [#/volume] in Blood by Automated count 6.0 4.0-10.0 [facility] ([facility]) ID Date Data Source [id number] 07/05/2020 12:41:00 PM EDT [facility] ([facility] ) Name Value Range Interpretation Code Description Data Leona rce(s) Supporting Document(s) Thyrotropin [Units/volume] in Serum or Plasma 7.580 uIU/ML 0.358-3.74 0 [facility] ([facility]) ID Date Data Source [id number] 07/05/2020 12:41:00 PM EDT [facility] ([facility]) Name Value Range Interpretation Code Description Data Leona rce(s) Supporting Document(s) Aspartate aminotransferase [Enzymatic activity/volume] in Serum or Plasma 16 U/L 7-37 [facility] ([facility]) Alkaline phosphatase [Enzymatic activity/volume] in Serum or Plasma 89 U/L 45-117 [facility] ([facility]) Alanine aminotransferase [Enzymatic activity/volume] in Seru m or Plasma 21 U/L 12-78 [facility] ([facility]) Bilirubin,Total 0.4 mg/dL 0.2-1.0 [facility] ([facility]) Bilirubin,Direct Laboratory test result 0.0-0.2 [facility] ([facility] ) Albumin [Mass/volume] in Serum or Plasma 4.0 GM/DL 3.2-5.2 [facility] ([facility]) Protein [Mass/volume] in Serum or Plasma 7.3 GM/DL 6.4-8.2 [facility] ([facility] ) Albumin/Globulin Ratio 1.2 1.2-2.2 [facility] ([facility]) ID Date Data Source [id number] 07/05/2020 12:41:00 PM EDT [facility] ([facility]) Name Value Range Interpretation Code Description Data Leona rce(s) Supporting Document(s) Red Blood Count 4.57 10 4.00-5.40 [facility] ([facility]) White Blood Count 6.0 10 4.0-10.0 [facility] ([facility]) Hemoglobin 12.5 g/dL 12.0-15.5 [facility] ([facility] Hematocrit [Volume Fraction] of Blood by Automated count 41.6 % 3 6.0-47.0 [facility] ([facility]) Mean Corpuscular Hemoglobin 27.4 pg 27.0-33.0 [facility] ([facility]) Mean Corpuscular Volume 91.0 fl 80.0-96.0 M [facility] ([facility]) Mean Corpuscular HGB Conc 30.0 g/dL 32.0-36.5 [facility] ([facility]) Red Cell Distribution Width 16.0 % 11.5-14.5 [facility] ([facility]) Neutrophils % 44.0 % 36.0-66.0 [facility] ([facility] Platelet Count, Automated 272 10 150-450 [facility] ([facility]) Lymphocytes/100 leukocytes in Blood by Automated count 43.0 % 24. 0-44.0 [facility] ([facility]) Lucas % 6.5 % 2.0-8.0 [facility] Eos % 5.5 % 0.0-3.0 [facility] Baso % 0.7 % 0.0-1.0 [facility] Immature Granulocyte % 0.3 % 0-3.0 [facility] ([facility]) Neutrophils # 2.6 10 1.5-8.5 [facility] Nucleated Red Blood Cell % 0.0 % 0-0 [facility] ([facility]) Lymph # 2.6 10 1.5-5.0 [facility] Lucas # 0.4 10 0.0-0.8 [facility] ([facility] Baso # 0.0 10 0.0-0.2 [facility] ([facility] Eos # 0.3 10 0.0-0.5 [facility] ([facility] ID Date Data Source [id number] 07/05/2020 12:41:00 PM EDT [facility] ([facility]) Name Value Range Interpretation Code Description Data Leona rce(s) Supporting Document(s) Lymphocytes [#/volume] in Blood by Automated count 2.6 1.5-5.0 [facility] ([facility]) ID Date Data Source [id number] 07/05/2020 12:41:00 PM EDT [facility] ([facility]) Name Value Range Interpretation Code Description Data Leona rce(s) Supporting Document(s) Thyrotropin [Units/volume] in Serum or Plasma by Detec tion limit <= 0.005 mIU/L 7.580 0.358-3.740 [facility] ([facility]) ID Date Data Source [id number] 07/05/2020 12:41:00 PM EDT [facility] ([facility]) Name Value Range Interpretation Code Description Data Leona rce(s) Supporting Document(s) Troponin I.cardiac [Mass/volume] in Serum or Plasma Laboratory test result [facility] ([facility]) ID Date Data Source [id number] 07/05/2020 12:41:00 PM EDT [facility] ([facility]) Name Value Range Interpretation Code Description Data Leona rce(s) Supporting Document(s) Ammonia [Moles/volume] in Plasma 30 [facility] ([facility]) ID Date Data Source [id number] 07/05/2020 12:41:00 PM EDT [facility] ([facility]) Name Value Range Interpretation Code Description Data Leona rce(s) Supporting Document(s) Bilirubin.direct [Mass/volume] in Serum or Plasma Laboratory test result 0.0-0.2 [facility] ([facility]) ID Date Data Source [id number] 07/05/2020 12:41:00 PM EDT [facility] ([facility]) Name Value Range Interpretation Code Description Data Leona rce(s) Supporting Document(s) Creatine kinase.MB/Creatine kinase.total [Pure catalytic fraction] in Serum or Plasma by calculation 1.78 [facility] ([facility]) ID Date Data Source [id number] 07/05/2020 12:41:00 PM EDT [facility] ([facility]) Name Value Range Interpretation Code Description Data Leona rce(s) Supporting Document(s) Creatine kinase.MB [Mass/volume] in Serum or Plasma 1.6 [facility] ([facility]) ID Date Data Source [id number] 07/05/2020 12:41:00 PM EDT [facility] ([facility]) Name Value Range Interpretation Code Description Data Leona rce(s) Supporting Document(s) Creatine kinase [Enzymatic activity/volume] in Serum or Plasma 90 26-192 [facility] ([facility]) ID Date Data Source [id number] 07/05/2020 12:41:00 PM EDT [facility] ([facility]) Name Value Range Interpretation Code Description Data Leona rce(s) Supporting Document(s) Calcium [Moles/volume] in Serum or Plasma 9.7 8.8-10.2 [facility] ([facility]) ID Date Data Source [id number] 07/05/2020 12:41:00 PM EDT [facility] ([facility]) Name Value Range Interpretation Code Description Data Leona rce(s) Supporting Document(s) Anion gap 3 in Serum or Plasma 4 8-16 [facility] ([facility]) ID Date Data Source [id number] 07/05/2020 12:41:00 PM EDT [facility] ([facility]) Name Value Range Interpretation Code Description Data Leona rce(s) Supporting Document(s) Carbon dioxide, total [Moles/volume] in Serum or Plasma 29 21 -32 [facility] ([facility]) ID Date Data Source [id number] 07/05/2020 12:41:00 PM EDT [facility] ([facility]) Name Value Range Interpretation Code Description Data Leona rce(s) Supporting Document(s) Chloride [Moles/volume] in Serum or Plasma 106 98-107 [facility] ([facility]) ID Date Data Source [id number] 07/05/2020 12:41:00 PM EDT [facility] [facility] Name Value Range Interpretation Code Description Data Leona rce(s) Supporting Document(s) Potassium [Moles/volume] in Serum or Plasma 4.4 3.5-5.1 [facility] ([facility]) ID Date Data Source [id number] 07/05/2020 12:41:00 PM EDT [facility] ([facility]) Name Value Range Interpretation Code Description Data Leona rce(s) Supporting Document(s) Sodium [Moles/volume] in Serum or Plasma 139 136-145 [facility] ([facility]) ID Date Data Source [id number] 07/05/2020 12:41:00 PM EDT [facility] ([facility]) Name Value Range Interpretation Code Description Data Leona rce(s) Supporting Document(s) Glomerular filtration rate/1.73 sq M.pre dicted [Volume Rate/Area] in Serum or Plasma by Creatinine-based formula (MDRD) Laboratory [facility]) ID Date Data Source [id number] 07/05/2020 12:41:00 PM EDT [facility] ([facility]) Name Value Range Interpretation Code Description Data Leona rce(s) Supporting Document(s) Creatinine [Mass/volume] in Serum or Plasma 0.89 0.55-1.30 [facility] ([facility]) ID Date Data Source [id number] 07/05/2020 12:41:00 PM EDT [facility] ([facility]) Name Value Range Interpretation Code Description Data Leona rce(s) Supporting Document(s) Urea nitrogen [Mass/volume] in Serum or Plasma 21 7-18 [facility] ([facility]) ID Date Data Source [id number] 07/05/2020 12:41:00 PM EDT [facility] ([facility] ) Name Value Range Interpretation Code Description Data Leona rce(s) Supporting Document(s) Glucose [Mass/volume] in Serum or Plasma 113 70-100 [facility] ([facility]) ID Date Data Source [id number] 07/05/2020 12:41:00 PM EDT [facility] ([facility]) Name Value Range Interpretation Code Description Data Leona rce(s) Supporting Document(s) Oxygen saturation in Venous blood 69.2 60.0-80.0 [facility] ([facility]) ID Date Data Source [id number] 07/05/2020 12:41:00 PM EDT [facility] ([facility]) Name Value Range Interpretation Code Description Data Leona rce(s) Supporting Document(s) Bicarbonate [Moles/volume] standard in Venous blood 25.6 [facility] ([facility]) ID Date Data Source [id number] 07/05/2020 12:41:00 PM EDT [facility] ([facility]) Name Value Range Interpretation Code Description Data Leona rce(s) Supporting Document(s) Base excess in Venous blood by calculation 2.0 [facility] ([facility]) ID Date Data Source [id number] 07/05/2020 12:41:00 PM EDT [facility] ([facility]) Name Value Range Interpretation Code Description Data Leona rce(s) Supporting Document(s) Bicarbonate [Moles/volume] in Venous blood 29.1 23.0-27.0 [facility] ([facility]) ID Date Data Source [id number] 07/05/2020 12:41:00 PM EDT [facility] ([facility]) Name Value Range Interpretation Code Description Data Leona rce(s) Supporting Document(s) Carbon dioxide, total [Moles/volume] in Venous blood by calc ulation 30.8 24.0-28.0 [facility] ([facility] ID Date Data Source [id number] 07/05/2020 12:41:00 PM EDT [facility] ([facility]) Name Value Range Interpretation Code Description Data Leona rce(s) Supporting Document(s) Oxygen [Partial pressure] in Venous blood 39.1 30.0-50.0 [facility] ([facility]) ID Date Data Source [id number] 07/05/2020 12:41:00 PM EDT [facility] ([facility]) Name Value Range Interpretation Code Description Data Leona rce(s) Supporting Document(s) Carbon dioxide [Partial pressure] in Venous blood 56.7 38.0-50. 0 [facility] ([facility]) ID Date Data Source [id number] 07/05/2020 12:41:00 PM EDT [facility] ([facility]) Name Value Range Interpretation Code Description Data Leona rce(s) Supporting Document(s) pH of Venous blood 7.328 7.330-7.430 [facility] ([facility]) ID Date Data Source [id number] 07/05/2020 12:41:00 PM EDT [facility] ([facility]) Name Value Range Interpretation Code Description Data Leona rce(s) Supporting Document(s) Basophils [#/volume] in Blood by Automated count 0.0 0.0-0.2 [facility] ([facility]) ID Date Data Source [id number] 07/05/2020 12:41:00 PM EDT [facility] ([facility]) Name Value Range Interpretation Code Description Data Leona rce(s) Supporting Document(s) Bilirubin.total [Mass/volume] in Serum or Plasma 0.4 0.2-1.0 [facility] ([facility]) ID Date Data Source [id number] 07/05/2020 12:41:00 PM EDT [facility] ([facility]) Name Value Range Interpretation Code Description Data Leona rce(s) Supporting Document(s) Eosinophils [#/volume] in Blood by Automated count 0.3 0.0-0.5 [facility] ([facility]) ID Date Data Source [id number] 07/03/2020 12:29:00 AM EDT [facility] Name Value Range Interpretation Code Description Data Leona rce(s) Supporting Document(s) SARS-CoV-2 (COVID 19) NEGATIVE - SARS-CoV-2 (COVID19) [facility] This lab was ordered by [facility] a nd reported by [facility]. ID Date Data Source [id number] 07/02/2020 10:47:00 PM EDT [facility] ([facility] Name Value Range Interpretation Code Description Data Leona rce(s) Supporting Document(s) Acetaminophen [Mass/volume] in Serum or Plasma Laboratory test r esult 10.0-30.0 [facility] ([facility]) ID Date Data Source [id number] 07/02/2020 10:47:00 PM EDT [facility] ([facility] Name Value Range Interpretation Code Description Data Leona rce(s) Supporting Document(s) Salicylates [Mass/volume] in Serum or Plasma Laboratory test result 5.0-30.0 [facility] ([facility]) ID Date Data Source [id number] 07/02/2020 10:47:00 PM EDT [facility] ([facility]) Name Value Range Interpretation Code Description Data Leona rce(s) Supporting Document(s) Magnesium [Mass/volume] in Serum or Plasma 2.1 1.8-2.4 [facility] ([facility]) ID Date Data Source [id number] 07/02/2020 10:47:00 PM EDT [facility] ([facility]) Name Value Range Interpretation Code Description Data Leona rce(s) Supporting Document(s) Ethanol [Presence] in Serum or Plasma Laboratory test result 0.000-0. 010 [facility] ([facility]) ID Date Data Source [id number] 07/02/2020 10:30:00 PM EDT [facility] ([facility]) Name Value Range Interpretation Code Description Data Leona rce(s) Supporting Document(s) pH of Arterial blood 7.375 7.350-7.450 [facility] ([facility]) ID Date Data Source [id number] 07/02/2020 10:30:00 PM EDT [facility] ([facility]) Name Value Range Interpretation Code Description Data Leona rce(s) Supporting Document(s) Laboratory test finding (navigational concept) 27.0 23.0-27.0 [facility] ([facility]) ID Date Data Source [id number] 07/02/2020 10:30:00 PM EDT [facility] ([facility]) Name Value Range Interpretation Code Description Data Leona rce(s) Supporting Document(s) Carbon dioxide [Partial pressure] in Arterial blood 43.7 35.0-4 5.0 [facility] ([facility]) ID Date Data Source [id number] 07/02/2020 10:30:00 PM EDT [facility] ([facility]) Name Value Range Interpretation Code Description Data Leona rce(s) Supporting Document(s) Oxygen [Partial pressure] in Arterial blood 129.0 80-105 [facility] ([facility]) ID Date Data Source [id number] 07/02/2020 10:30:00 PM EDT [facility] ([facility]) Name Value Range Interpretation Code Description Data Leona rce(s) Supporting Document(s) Bicarbonate [Moles/volume] in Arterial blood 25.5 22.0-26.0 [facility] ([facility]) ID Date Data Source [id number] 07/02/2020 10:30:00 PM EDT [facility] ([facility]) Name Value Range Interpretation Code Description Data Leona rce(s) Supporting Document(s) Base excess standard in Arterial blood by calculation 0.0 [facility] ([facility]) ID Date Data Source [id number] 07/02/2020 10:30:00 PM EDT [facility] ([facility]) Name Value Range Interpretation Code Description Data Leona rce(s) Supporting Document(s) Oxygen saturation Calculated from oxygen partial pressure in Arterial blood 99 95-98 [facility] ([facility]) ID Date Data Source [id number] 07/02/2020 09:48:00 PM EDT [facility] ([facility]) Name Value Range Interpretation Code Description Data Leona rce(s) Supporting Document(s) Urine Mucus (Auto) Laboratory test result [facility] ([facility]) ID Date Data Source [id number] 07/02/2020 09:48:00 PM EDT [facility] ([facility]) Name Value Range Interpretation Code Description Data Leona rce(s) Supporting Document(s) Hemoglobin A1c/Hemoglobin.total in Blood 7.7 [facility] ([facility]) ID Date Data Source [id number] 07/02/2020 09:48:00 PM EDT [facility] ([facility]) Name Value Range Interpretation Code Description Data Leona rce(s) Supporting Document(s) Glucose mean value [Mass/volume] in Blood Estimated fr om glycated hemoglobin 174 60-110 [facility] ([facility]) ID Date Data Source [id number] 06/18/2020 07:51:00 PM EDT [facility] ([facility] Name Value [...] -26 Normal (applies to non-numeric results) [facility] ([facility]) Laboratory test finding (navigational concept) 1.0 mg/dL 0 .6-1.3 Normal (applies to non-numeric results) [facility] ([facility] ID Date Data Source [id number] 06/18/2020 07:25:00 PM EDT [facility] Name Value Range Interpretation Code Description Data Leona rce(s) Supporting Document(s) Lipoprotein lipase [Enzymatic activity/volume] in Serum or P lasma 311 U/L 73-393 Normal (applies to non-numeric results) [facility] ([facility] ID Date Data Source [id number] 06/18/2020 07:25:00 PM EDT [facility] ([facility] Name Value Range Interpretation Code Description Data Leona rce(s) Supporting Document(s) Alt/SGPT 22 U/L 12-78 Normal (applies to non-numeric resul ts) [facility] ([facility] Ast/Sgot 14 U/L 7-37 Normal (applies to non-numeric resul ts) [facility] ([facility] Alkaline Phosphatase 95 U/L 45-117 Normal (applies to non-num ana rosa results) [facility] ([facility] Bilirubin,Total 0.3 mg/dL 0.2-1.0 Normal (applies to non-numeric results) [facility] ([facility] Bilirubin,Direct 0.1 mg/dL 0.0-0.2 Normal (applies to non-numeric results) [facility] ([facility] Total Protein 7.2 GM/DL 6.4-8.2 Normal (applies to non-numeric re sults) [facility] ([facility] Albumin 3.9 GM/DL 3.2-5.2 Normal (applies to non-numeric resul ts) [facility] ([facility] Albumin/Globulin Ratio 1.2 1.2-2.2 Normal (applies to non-n umeric results) [facility] ([facility] ID Date Data Source [id number] 06/18/2020 07:25:00 PM EDT [facility] [place] [place] [facility] Name Value Range Interpretation Code Description Data Leona rce(s) Supporting Document(s) White Blood Count 7.3 10 4.0-10.0 Normal (applies to non-numeri c results) [facility] ([facility] Red Blood Count 4.46 10 4.00-5.40 Normal (applies to non-numeric results) [facility] ([facility] Mean Corpuscular Volume 88.6 [...] high normal [facility] ([facility] Lucas % 5.8 % 2.0-8.0 Normal (applies to [...] re sults) [facility] ([facility] Lucas # 0.4 10 0.0-0.8 Normal (applies to non-numeric resul ts) [facility] ([facility] Lymph # 2.8 10 1.5-5.0 Normal (applies to non-numeric resul ts) [facility] ([facility] Baso # 0.0 10 0.0-0.2 Normal (applies to non-numeric resul ts) [facility] ([facility] Eos # 0.4 10 0.0-0.5 Normal (applies to non-numeric resul ts) [facility] ([facility] ID Date Data Source [id number] 06/18/2020 07:25:00 PM EDT [facility] ([facility]) Name Value Range Interpretation Code Description Data Leona rce(s) Supporting Document(s) Lipase [Enzymatic activity/volume] in Serum or Plasma 311 73-3 93 [facility] ([facility]) ID Date Data Source [id number] 05/24/2020 02:23:00 PM EDT [facility] ([facility] Name Value Range Interpretation Code Description Data Leona rce(s) Supporting Document(s) Glucose [Mass/volume] in Serum or Plasma 206 mg/dL 65-99 Above high normal [facility] ([facility] BUN 20 mg/dL 8-27 [facility] ([facility] eGFR If NonAfricn Am 62 mL/min/1.73 [facility] ([facility] Creatinine [Mass/volume] in Serum or Plasma 0.94 mg/dL 0.57-1.00 [facility] ([facility] eGFR If Africn Am 71 mL/min/1.73 [facility] ([facility] Urea nitrogen/Creatinine [Mass Ratio] in Serum or Plasma 21 1 2-28 [facility] ([facility] Potassium [Moles/volume] in Serum or Plasma 4.6 mmol/L 3.5-5.2 [facility] ([facility] Sodium [Moles/volume] in Serum or Plasma 136 mmol/L 134-144 [facility] ([facility] Chloride [Moles/volume] in Serum or Plasma 94 mmol/L 96-106 Belo w low normal [facility] ([facility] Carbon dioxide, total [Moles/volume] in Serum or Plasma 28 mmol/L 20 -29 [facility] ([facility] Calcium [Mass/volume] in Serum or Plasma 9.6 mg/dL 8.7-10.3 [facility] ([facility] ID Date Data Source [id number] 05/19/2020 04:52:00 AM EDT [facility] ([facility]) Name Value Range Interpretation Code Description Data Leona rce(s) Supporting Document(s) Folate [Mass/volume] in Serum or Plasma 16.8 [facility] ([facility]) ID Date Data Source [id number] 05/19/2020 04:52:00 AM EDT [facility] ([facility]) Name Value Range Interpretation Code Description Data Leona rce(s) Supporting Document(s) Cobalamin (Vitamin B12) [Mass/volume] in Serum or Plasma 367 2 47-911 [facility] ([facility]) ID Date Data Source [id number] 05/17/2020 11:49:00 PM EDT [facility] ([facility]) Name Value Range Interpretation Code Description Data Leona rce(s) Supporting Document(s) Bacteria [Presence] in Urine by Automated Laboratory test result [facility] ([facility]) ID Date Data Source [id number] 05/17/2020 11:49:00 PM EDT [facility] ([facility]) Name Value Range Interpretation Code Description Data Leona rce(s) Supporting Document(s) pH of Urine by Automated test strip 8.0 5.0-9.0 [facility] ([facility] ID Date Data Source [id number] 05/17/2020 11:49:00 PM EDT [facility] ([facility]) Name Value Range Interpretation Code Description Data Leona rce(s) Supporting Document(s) Ketones [Presence] in Urine by Automated test strip Laboratory test result [facility] ([facility] ID Date Data Source [id number] 05/17/2020 11:49:00 PM EDT [facility] ([facility]) Name Value Range Interpretation Code Description Data Leona rce(s) Supporting Document(s) Erythrocytes [#/volume] in Urine by Automated count 0 0-3 [facility] ([facility] ID Date Data Source [id number] 05/17/2020 11:49:00 PM EDT [facility] ([facility]) Name Value Range Interpretation Code Description Data Leona rce(s) Supporting Document(s) Appearance of Urine Laboratory test result [facility] ([facility] ID Date Data Source [id number] 05/17/2020 11:49:00 PM EDT [facility] ([facility]) Name Value Range Interpretation Code Description Data Leona rce(s) Supporting Document(s) Glucose [Presence] in Urine by Automated test strip Laboratory test result [facility] ([facility] ID Date Data Source [id number] 05/17/2020 11:49:00 PM EDT [facility] ([facility]) Name Value Range Interpretation Code Description Data Leona rce(s) Supporting Document(s) Hemoglobin [Presence] in Urine by Automated test strip Laborator y test result [facility] ([facility] ID Date Data Source [id number] 05/17/2020 11:49:00 PM EDT [facility] ([facility] Name Value Range Interpretation Code Description Data Leona rce(s) Supporting Document(s) Color of Urine by Auto Laboratory test result [facility] ([facility] ID Date Data Source [id number] 05/17/2020 11:49:00 PM EDT [facility] ([facility] Name Value Range Interpretation Code Description Data Leona rce(s) Supporting Document(s) Nitrite [Presence] in Urine by Automated test strip Laboratory test result [facility] ([facility]) ID Date Data Source [id number] 05/17/2020 11:49:00 PM EDT [facility] ([facility]) Name Value Range Interpretation Code Description Data Leona rce(s) Supporting Document(s) Sodium [Moles/volume] in Urine 97 [facility] ([facility]) ID Date Data Source [id number] 05/17/2020 11:49:00 PM EDT [facility] ([facility]) Name Value Range Interpretation Code Description Data Leona rce(s) Supporting Document(s) Specific gravity of Urine by Automated test strip 1.011 1.002-1. 035 [facility] ID Date Data Source [id number] 05/17/2020 11:49:00 PM EDT [facility] ([facility]) Name Value Range Interpretation Code Description Data Leona rce(s) Supporting Document(s) Urea nitrogen [Mass/volume] in Urine 497 [facility]) ID Date Data Source [id number] 05/17/2020 11:49:00 PM EDT [facility] ([facility]) Name Value Range Interpretation Code Description Data Leona rce(s) Supporting Document(s) Urobilinogen [Presence] in Urine by Automated test strip 0.2 0 .0-2.0 [facility] ([facility]) ID Date Data Source [id number] 05/17/2020 11:49:00 PM EDT [facility] ([facility]) Name Value Range Interpretation Code Description Data Leona rce(s) Supporting Document(s) Epithelial cells.squamous [#/area] in Urine sediment by Automate d count 0 0-6 [facility] ([facility]) ID Date Data Source [id number] 05/17/2020 11:49:00 PM EDT [facility] ([facility]) Name Value Range Interpretation Code Description Data Leona rce(s) Supporting Document(s) Leukocytes [#/area] in Urine sediment by Automated count 0 0 -3 [facility] ([facility]) ID Date Data Source [id number] 05/17/2020 11:49:00 PM EDT [facility] ([facility]) Name Value Range Interpretation Code Description Data Leona rce(s) Supporting Document(s) Protein [Presence] in Urine by Automated test strip [facility] ID Date Data Source [id number] 05/17/2020 11:49:00 PM EDT [facility] ([facility]) Name Value Range Interpretation Code Description Data Leona rce(s) Supporting Document(s) Potassium [Moles/volume] in Urine 37.2 [facility] ([facility]) ID Date Data Source [id number] 05/17/2020 11:49:00 PM EDT [facility] ([facility]) Name Value Range Interpretation Code Description Data Leona rce(s) Supporting Document(s) Bilirubin.total [Presence] in Urine by Automated test strip Laboratory test result [facility] ([facility]) ID Date Data Source [id number] 05/17/2020 11:49:00 PM EDT [facility] ([facility]) Name Value Range Interpretation Code Description Data Leona rce(s) Supporting Document(s) Urine Hyaline Casts (Auto) 0 0-1 [facility] ([facility]) ID Date Data Source [id number] 05/17/2020 11:49:00 PM EDT [facility] ([facility]) Name Value Range Interpretation Code Description Data Leona rce(s) Supporting Document(s) Creatinine [Mass/volume] in Urine 36.3 [facility] ([facility]) ID Date Data Source [id number] 05/17/2020 11:49:00 PM EDT [facility] ([facility]) Name Value Range Interpretation Code Description Data Leona rce(s) Supporting Document(s) Leukocyte esterase [Presence] in Urine by Automated te st strip Laboratory test result [facility] ([facility]) ID Date Data Source [id number] 05/17/2020 09:46:00 PM EDT [facility] ([facility]) Name Value Range Interpretation Code Description Data Leona rce(s) Supporting Document(s) Glucose [Mass/volume] in Serum or Plasma 46 [facility] ([facility]) ID Date Data Source [id number] 05/17/2020 06:26:00 PM EDT [facility] ([facility]) Name Value Range Interpretation Code Description Data Leona rce(s) Supporting Document(s) Sars coronavirus 2 Rna [Presence] in Res piratory specimen by Daniela with probe detection Laboratory test result [facility] ([facility]) ID Date Data Source [id number] 05/17/2020 06:26:00 PM EDT [facility] ([facility]) Name Value Range Interpretation Code Description Data Leona rce(s) Supporting Document(s) Influenza virus B RNA [Presence] in Naso pharynx by Probe and target amplification method Laboratory test result [facility] ([facility]) ID Date Data Source [id number] 05/17/2020 06:26:00 PM EDT [facility] ([facility]) Name Value Range Interpretation Code Description Data Leona rce(s) Supporting Document(s) Respiratory syncytial virus RNA [Presenc e] in Nasopharynx by Probe and target amplification method Laboratory test result [facility] ([facility]) ID Date Data Source [id number] 05/17/2020 06:26:00 PM EDT [facility] ([facility]) Name Value Range Interpretation Code Description Data Leona rce(s) Supporting Document(s) Influenza virus A RNA [Presence] in Naso pharynx by Probe and target amplification method Laboratory test result [facility] ([facility]) ID Date Data Source [id number] 05/17/2020 06:26:00 PM EDT [facility] Name Value Range Interpretation Code Description Data Leona rce(s) Supporting Document(s) SARS coronavirus 2 RNA [Presence] in Res piratory specimen by DANIELA with probe detection NEGATIVE [facility] This lab was ordered by [facility] a nd reported by [facility]. ID Date Data Source [id number] 05/17/2020 06:02:00 PM EDT [facility] ([facility] Name Value Range Interpretation Code Description Data Leona rce(s) Supporting Document(s) Glucose [Mass/volume] in Capillary blood by Glucometer 149 mg/dL 83-110 Above high normal [facility] ([facility] ID Date Data Source [id number] 05/17/2020 04:56:00 PM EDT [facility] ([facility] [facility] Name Value Range Interpretation Code Description Data Leona rce(s) Supporting Document(s) Laboratory test finding (navigational concept) 0.01 ng/mL 0 .00-0.08 Normal (applies to non-numeric results) [facility] ([facility] ID Date Data Source [id number] 05/17/2020 04:56:00 PM EDT [facility] ([facility]) Name Value Range Interpretation Code Description Data Leona rce(s) Supporting Document(s) Troponin I.cardiac [Mass/volume] in Blood 0.01 0.00-0.08 [facility] ([facility]) ID Date Data Source [id number] 05/17/2020 04:54:00 PM EDT [facility] ([facility] Name Value Range Interpretation Code Description Data Leona rce(s) Supporting Document(s) Thyrotropin [Units/volume] in Serum or Plasma 3.770 uIU/ML 0. 358-3.740 Above high normal [facility] ([facility] ID Date Data Source [id number] 05/17/2020 04:54:00 PM EDT [facility] ([facility] [...] Little GFR Left</content>
<content>ESRD GFR <15 on SIZE MIXER</content>
<content></content> Chloride Level 102 meq/L 98-107 Normal (applies to non-numeric r esults) [facility] ([facility] Potassium Serum 5.3 meq/L 3.5-5.1 Above high normal ME DENT ([facility] Testing was performed on a hemolysed spe cimen. Suggest recollection of specimen for more accurate test results. Carbon Dioxide Level 29 meq/L 21-32 Normal (applies to non-num ana rosa results) [facility] ([facility] Anion Gap 4 meq/L 8-16 Below low normal [facility] ( [facility] Calcium Level 10.1 mg/dL 8.8-10.2 Normal (applies to non-numeric re sults) [facility] ([facility] ID Date Data Source [id number] 05/17/2020 04:54:00 PM EDT [facility] ([facility] Name Value Range Interpretation Code Description Data Leona rce(s) Supporting Document(s) Ast/Sgot 55 U/L 7-37 Above high normal [facility] ([facility] Alt/SGPT 24 U/L 12-78 Normal (applies to non-numeric resul ts) [facility] ([facility] Bilirubin,Total 0.3 mg/dL 0.2-1.0 Normal (applies to non-numeric results) [facility] ([facility] Alkaline Phosphatase 100 U/L 45-117 Normal (applies to non-num ana rosa results) [facility] ([facility] Total Protein 9.0 GM/DL 6.4-8.2 Above high normal MEDE NT ([facility] Bilirubin,Direct Laboratory test result 0.0-0.2 Normal ( applies to non-numeric results) [facility] ([facility] ) Albumin/Globulin Ratio 1.0 1.2-2.2 Below low normal [facility] ([facility] Albumin 4.6 GM/DL 3.2-5.2 Normal (applies to non-numeric resul ts) [facility] ([facility] ID Date Data Source [id number] 05/17/2020 04:54:00 PM EDT [facility] ([facility] Name Value Range Interpretation Code Description Data Leona rce(s) Supporting Document(s) White Blood Count 13.1 10 4.0-10.0 Above high normal [facility] ([facility] Red Blood Count 5.50 10 4.00-5.40 Above high normal ME DENT ([facility] Hematocrit 48.9 % 36.0-47.0 Above high normal [facility] ([facility] Hemoglobin 14.6 g/dL 12.0-15.5 Normal (applies to non-numeric resul ts) [facility] ([facility] Mean Corpuscular Volume 88.9 fl 80.0-96.0 Normal ( applies to non-numeric results) [facility] ([facility] ) Mean Corpuscular Hemoglobin 26.5 pg 27.0-33.0 Below low normal [facility] ([facility] Mean Corpuscular HGB Conc 29.9 g/dL 32.0-36.5 Below low normal [facility] ([facility] Red Cell Distribution Width 19.8 % 11.5-14.5 Above high normal [facility] ([facility] Platelet Count, Automated 340 10 150-450 Normal (applies to non-numeric results) [facility] ([facility] ) Neutrophils % 88.7 % 36.0-66.0 Above high normal MEDE NT ([facility] Lymph % 6.5 % 24.0-44.0 Below low normal [facility] ( [facility] Lucas % 3.8 % 2.0-8.0 Normal (applies to non-numeric resul ts) [facility] ([facility] Eos % 0.3 % 0.0-3.0 Normal (applies to non-numeric resul ts) [facility] ([facility] Immature Granulocyte % 0.5 % 0-3.0 Normal (applies to non-n umeric results) [facility] ([facility] Baso % 0.2 % 0.0-1.0 Normal (applies to non-numeric resul ts) [facility] ([facility] Neutrophils # 11.6 10 1.5-8.5 Above high normal MEDE NT ([facility] Nucleated Red Blood Cell % 0.0 % 0-0 Normal (applies to n on-numeric results) [facility] ([facility] Lymph # 0.9 10 1.5-5.0 Below low normal [facility] ( [facility] Lucas # 0.5 10 0.0-0.8 Normal (applies to non-numeric resul ts) [facility] ([facility] Eos # 0.0 10 0.0-0.5 Normal (applies to non-numeric resul ts) [facility] ([facility] Baso # 0.0 10 0.0-0.2 Normal (applies to non-numeric resul ts) [facility] ([facility] ID Date Data Source [id number] 05/17/2020 04:54:00 PM EDT [facility] ([facility] Name Value Range Interpretation Code Description Data Leona rce(s) Supporting Document(s) Laboratory test finding (navigational concept) 51.0 % 3 8.0-51.0 Normal (applies to non-numeric results) [facility] ([facility] Laboratory test finding (navigational concept) 140 meq/L 1 36-145 Normal (applies to non-numeric results) [facility] ([facility] Laboratory test finding (navigational concept) 81 mg/dL 7 0-105 Normal (applies to non-numeric results) [facility] ([facility] Laboratory test finding (navigational concept) 5.2 mg/dL 4 .5-5.3 Normal (applies to non-numeric results) [facility] ([facility] Laboratory test finding (navigational concept) 3.8 meq/L 3 .5-5.1 Normal (applies to non-numeric results) [facility] ([facility] Laboratory test finding (navigational concept) 99 meq/L 9 8-109 Normal (applies to non-numeric results) [facility] ([facility] Laboratory test finding (navigational concept) 32.0 MM/L 2 3.0-27.0 Above high normal [facility] ([facility] ) Laboratory test finding (navigational concept) 33 mg/dL 8-26 Above high normal [facility] ([facility] Laboratory test finding (navigational concept) 1.3 mg/dL 0 .6-1.3 Normal (applies to non-numeric results) [facility] ([facility] ID Date Data Source [id number] 05/17/2020 04:54:00 PM EDT [facility] ([facility]) Name Value Range Interpretation Code Description Data Leona rce(s) Supporting Document(s) Thyrotropin [Units/volume] in Serum or Plasma 3.770 uIU/ML 0.358-3.74 0 [facility] ([facility]) ID Date Data Source [id number] 05/10/2020 01:56:00 PM EDT [facility] ([facility] Name Value Range Interpretation Code Description Data Leona rce(s) Supporting Document(s) Glucose [Mass/volume] in Capillary blood by Glucometer 149 mg/dL 83-110 Above high normal [facility] ([facility] ) ID Date Data Source [id number] 05/10/2020 01:56:00 PM EDT [facility] ([facility]) Name Value Range Interpretation Code Description Data Leona rce(s) Supporting Document(s) Glucose [Mass/volume] in Capillary blood by Glucometer 149 mg/dL 83-110 Above high normal [facility] ([facility]) ID Date Data Source [id number] 05/10/2020 01:04:00 PM EDT [facility] ([facility]) Name Value Range Interpretation Code Description Data Leona rce(s) Supporting Document(s) Surgical pathology study Laboratory test result [facility] ([facility]) FINAL DIAGNOSIS Submitted as" lipoma abdominal [...] to reveal benign adipose tissue and skin. [employer] Mechanic sections submitted in one. -OA 05/13/2020 - 1419 Signed KASSY KOROMA MD 05/14/2020 1040 ID Date Data Source [id number] 05/10/2020 11:35:00 AM EDT [facility] ([facility] Name Value Range Interpretation Code Description Data Leona rce(s) Supporting Document(s) Glucose [Mass/volume] in Capillary blood by Glucometer 140 mg/dL 83-110 Above high normal [facility] ([facility] ) ID Date Data Source [id number] 05/10/2020 11:35:00 AM EDT [facility] ([facility], ) Name Value Range Interpretation Code Description Data Leona rce(s) Supporting Document(s) Glucose [Mass/volume] in Capillary blood by Glucometer 140 mg/dL 83-110 Above high normal [facility] ([facility], ) ID Date Data Source [id number] 05/05/2020 09:35:00 AM EDT [facility] Name Value Range Interpretation Code Description Data Leona rce(s) Supporting Document(s) SARS coronavirus [address] [facility] This lab was ordered by [facility] and reported by [facility]. ID Date Data Source [id number] 04/20/2020 07:20:00 PM EST [facility] ([facility] Name Value Range Interpretation Code Description Data Leona rce(s) Supporting Document(s) Glucose [Mass/volume] in Capillary blood by Glucometer 208 mg/dL 83-110 Above high normal [facility] ([facility] ID Date Data Source [id number] 04/20/2020 06:51:00 PM EST [facility] ([facility] Name Value Range Interpretation Code Description Data Leona rce(s) Supporting Document(s) Appearance, Urine RFX Laboratory test result Nor mal (applies to non-numeric results) [facility] ([facility] ) Color, Urine RFX Laboratory test result Normal ( applies to non-numeric results) [facility] ([facility] ) PH,Urine RFX 7.0 units 5.0-9.0 Normal (applies to non-numeric res ults) [facility] ([facility] Specific [place] Ur Auto RFX 1.004 1.002-1.035 Nor mal (applies to non-numeric results) [facility] ([facility] ) Protein, Urine Auto RFX Laboratory test result N ormal (applies to non-numeric results) [facility] ([facility] ) Ketone, Urine Auto RFX Laboratory test result No rmal (applies to non-numeric results) [facility] ([facility] ) Glucose, Urine (Ua) Auto RFX Laboratory test result Above high normal [facility] ([facility] Urobilinogen, Urine Auto RFX 0.2 mg/dL 0.0-2.0 Nor mal (applies to non-numeric results) [facility] ([facility] ) Bilirubin, Urine Auto RFX Laboratory test result Normal (applies to non- numeric results) [facility] ([facility] ) Nitrite, Urine Auto RFX Laboratory test result N ormal (applies to non-numeric results) [facility] ([facility] ) Leukocyte Esterase Ur Auto RFX Laboratory test result Normal (applies to non- numeric results) [facility] ([facility] ) WBC, Urine Auto RFX 1 /HPF 0-3 Normal (applies to non-nume samantha results) [facility] ([facility] Blood, Urine Blood RFX Laboratory test result No rmal (applies to non-numeric results) [facility] ([facility] ) RBC, Urine Auto RFX 1 /HPF 0-3 Normal (applies to non-nume samantha results) [facility] ([facility] Bacteria, Urine Auto RFX Laboratory test result Normal (applies to non-numeric results) [facility] ([facility] ) Squam Epithelial Cell Ur Aurfx 1 /HPF 0-6 N ormal (applies to non-numeric results) [facility] ([facility] ) Hyaline Cast, Urine Auto RFX 0 /LPF 0-1 Normal (appl ies to non-numeric results) [facility] ([facility] ID Date Data Source [id number] 04/20/2020 06:01:00 PM EST [facility] ([facility] Name Value Range Interpretation Code Description Data Leona rce(s) Supporting Document(s) Glucose [Mass/volume] in Capillary blood by Glucometer 124 mg/dL 83-110 Above high normal [facility] ([facility] ) ID Date Data Source [id number] 04/20/2020 04:48:00 PM EST [facility] ([facility] Name Value Range Interpretation Code Description Data Leona rce(s) Supporting Document(s) Laboratory test finding (navigational concept) 40.0 % 3 8.0-51.0 Normal (applies to non-numeric results) [facility] ([facility] Laboratory test finding (navigational concept) 109 mg/dL 7 0-105 Above high normal [facility] ([facility] ) Laboratory test finding (navigational concept) 133 meq/L 1 36-145 Below low normal [facility] ([facility] ) Laboratory test finding (navigational concept) 4.7 meq/L 3 .5-5.1 Normal (applies to non-numeric results) [facility] ([facility] Laboratory test finding (navigational concept) 4.0 mg/dL 4 .5-5.3 Below low normal [facility] ([facility] ) Laboratory test finding (navigational concept) 100 meq/L 9 8-109 Normal (applies to non-numeric results) [facility] ([facility] Laboratory test finding (navigational concept) 29.0 MM/L 2 3.0-27.0 Above high normal [facility] ([facility] ) Laboratory test finding (navigational concept) 19 mg/dL 8 -26 Normal (applies to non-numeric results) [facility] ([facility]) Laboratory test finding (navigational concept) 0.7 mg/dL 0 .6-1.3 Normal (applies to non-numeric results) [facility] ([facility] ID Date Data Source [id number] 04/20/2020 04:46:00 PM EST [facility] ([facility] Name Value Range Interpretation Code Description Data Leona rce(s) Supporting Document(s) Lipoprotein lipase [Enzymatic activity/volume] in Serum or P lasma 270 U/L 73-393 Normal (applies to non-numeric results) [facility] ([facility] ID Date Data Source [id number] 04/20/2020 04:46:00 PM EST [facility] ([facility] Name Value Range Interpretation Code Description Data Leona rce(s) Supporting Document(s) Alt/SGPT 20 U/L 12-78 Normal (applies to non-numeric resul ts) [facility] ([facility] Ast/Sgot 19 U/L 7-37 Normal (applies to non-numeric resul ts) [facility] ([facility] Bilirubin,Total Laboratory test result 0.2-1.0 Below low normal [facility] ([facility] Alkaline Phosphatase 87 U/L 45-117 Normal (applies to non-num ana rosa results) [facility] ([facility] Bilirubin,Direct Laboratory test result 0.0-0.2 Normal ( applies to non-numeric results) [facility] ([facility] ) Total Protein 6.7 GM/DL 6.4-8.2 Normal (applies to non-numeric re sults) [facility] ([facility] Albumin 3.6 GM/DL 3.2-5.2 Normal (applies to non-numeric resul ts) [facility] ([facility] Albumin/Globulin Ratio 1.2 1.2-2.2 Normal (applies to non-n umeric results) [facility] ([facility] ID Date Data Source [id number] 04/20/2020 04:46:00 PM EST [facility] ([facility] Name Value Range Interpretation Code Description Data Leona rce(s) Supporting Document(s) CPK Creatine Phosphokinase 81 U/L 26-192 Roselia l (applies to non-numeric results) [facility] ([facility] ) MB/CK Relative Index 1.23 Normal (applies to non-num ana rosa results) [facility] ([facility] <content>DIAGNOSIS CRITERIA</content>
<content>MMB ng/ml Relative Index (RI)</content>
<content>NON-AMI < or = 5 N/A</content>
<content>GIL ZONE > 5 < or = 4</content>
<content>AMI > 5 > 4</content>
<content></content> CK-MB Value Mass Laboratory test result Normal ( applies to non-numeric results) SHANNAN ([facility] ) Troponin I Laboratory test result Normal (applies to non-n umeric results) [facility] <content>Troponin I Reference Interval f or Siemens [place] LOCI:</content>
<content></content>
<content>99th Percentile= 0.00-0.045 ng/ml</content>
<content></content>
<content>Risk Stratification:</content>
<content><= 0.10 ng/ml Decreased Risk for Adverse Clinical</content>
<content>Events.</content>
<content>0.10-1.50 ng/ml Increased Risk for Adverse Clinical</content>
<content>Events. Evaluation of additional</content>
<content>criterion and/or repeat testing in 2-6</content>
<content>hours is suggested to rule out myocardial</content>
<content>damage.</content>
<content>>= 1.50 ng/ml Indicative of Myocardial Injury.</content>
<content></content> ID Date Data Source [id number] 04/20/2020 04:46:00 PM EST [facility] ([facility] Name Value Range Interpretation Code Description Data Leona rce(s) Supporting Document(s) Hemoglobin A1c 8.0 % Normal (applies to non-numeric r esults) [facility] ([facility] <content>REFERENCE RANGES:</content><br/ ><content></content>
<content><=5.6% NORMAL</content>
<content>5.7-6.4% SUGGESTS IMPAIRED GLUCOSE METABOLISM/PREDIABETIC</content>
<content>>= 6.5% ABNORMAL</content>
<content></content> Estimated Average Glucose 183 mg/dL 60-110 Above high normal [facility] ([facility] ID Date Data Source [id number] 04/20/2020 04:46:00 PM EST [facility] ([facility] Name Value Range Interpretation Code Description Data Leona rce(s) Supporting Document(s) White Blood Count 12.3 10 4.0-10.0 Above high normal [facility] ([facility] Red Blood Count 4.66 10 4.00-5.40 Normal (applies to non-numeric results) [facility] ([facility] Hemoglobin 11.8 g/dL 12.0-15.5 Below low normal [facility] ( [facility] Hematocrit 40.2 % 36.0-47.0 Normal (applies to non-numeric resul ts) [facility] ([facility] Mean Corpuscular Hemoglobin 25.3 pg 27.0-33.0 Below low normal [facility] ([facility] Mean Corpuscular Volume 86.3 fl 80.0-96.0 Normal ( applies to non-numeric results) [facility] ([facility] ) Mean Corpuscular HGB Conc 29.4 g/dL 32.0-36.5 Below low normal [facility] ([facility] Red Cell Distribution Width 18.5 % 11.5-14.5 Above high normal [facility] ([facility] Platelet Count, Automated 296 10 150-450 Normal (applies to non-numeric results) [facility] ([facility] ) Neutrophils % 82.8 % 36.0-66.0 Above high normal MEDE NT ([facility] Lymph % 11.3 % 24.0-44.0 Below low normal [facility] ( [facility] Lucas % 4.5 % 2.0-8.0 Normal (applies to non-numeric resul ts) [facility] ([facility] Eos % 0.5 % 0.0-3.0 Normal (applies to non-numeric resul ts) [facility] ([facility] Baso % 0.2 % 0.0-1.0 Normal (applies to non-numeric resul ts) [facility] ([facility] Immature Granulocyte % 0.7 % 0-3.0 Normal (applies to non-n umeric results) [facility] ([facility] Nucleated Red Blood Cell % 0.0 % 0-0 Normal (applies to n on-numeric results) [facility] ([facility] Neutrophils # 10.2 10 1.5-8.5 Above high normal MEDE NT ([facility] Lymph # 1.4 10 1.5-5.0 Below low normal [facility] ( [facility] Lucas # 0.6 10 0.0-0.8 Normal (applies to non-numeric resul ts) [facility] ([facility] Baso # 0.0 10 0.0-0.2 Normal (applies to non-numeric resul ts) [facility] ([facility] Eos # 0.1 10 0.0-0.5 Normal (applies to non-numeric resul ts) [facility] ([facility] ID Date Data Source [id number] 04/08/2020 07:05:00 PM EST [facility] ([facility]) Name Value Range Interpretation Code Description Data Leona rce(s) Supporting Document(s) Hemoglobin A1c/Hemoglobin.total in Blood 7.9 % [facility] ([facility]) <content>REFERENCE RANGES:</content><br/ ><content></content>
<content><=5.6% NORMAL</content>
<content>5.7-6.4% SUGGESTS IMPAIRED GLUCOSE METABOLISM/PREDIABETIC</content>
<content>>= 6.5% ABNORMAL</content>
<content></content>
<content></content> Estimated Average Glucose 180 mg/dL 60-110 [facility] ([facility]) ID Date Data Source [id number] 04/08/2020 07:05:00 PM EST [facility] [place] [facility] Name Value Range Interpretation Code Description Data Leona rce(s) Supporting Document(s) Appearance, Urine RFX Laboratory test result Nor mal (applies to non-numeric results) [facility] ([facility] ) Color, Urine RFX Laboratory test result Normal ( applies to non-numeric results) [facility] ([facility] ) Specific [place] Ur Auto RFX 1.022 1.002-1.035 Nor mal (applies to non-numeric results) [facility] ([facility] ) PH,Urine RFX 5.0 units 5.0-9.0 Normal (applies to non-numeric res ults) [facility] ([facility] Protein, Urine Auto RFX Laboratory test result N ormal (applies to non-numeric results) [facility] ([facility] ) Glucose, Urine (Ua) Auto RFX Laboratory test result Above high normal [facility] ([facility] Ketone, Urine Auto RFX Laboratory test result No rmal (applies to non-numeric results) [facility] ([facility] ) Urobilinogen, Urine Auto RFX 0.2 mg/dL 0.0-2.0 Nor mal (applies to non-numeric results) [facility] ([facility] ) Nitrite, Urine Auto RFX Laboratory test result N ormal (applies to non-numeric results) [facility] ([facility] ) Bilirubin, Urine Auto RFX Laboratory test result Normal (applies to non- numeric results) [facility] ([facility] ) Leukocyte Esterase Ur Auto RFX Laboratory test result Normal (applies to non- numeric results) [facility] ([facility] ) Blood, Urine Blood RFX Laboratory test result No rmal (applies to non-numeric results) [facility] ([facility] ) WBC, Urine Auto RFX 2 /HPF 0-3 Normal (applies to non-nume samantha results) [facility] ([facility] Bacteria, Urine Auto RFX Laboratory test result Normal (applies to non-numeric results) [facility] ([facility] ) RBC, Urine Auto RFX 2 /HPF 0-3 Normal (applies to non-nume samantha results) [facility] ([facility] Squam Epithelial Cell Ur Aurfx 0 /HPF 0-6 N ormal (applies to non-numeric results) [facility] ([facility] ) Mucus, Urine RFX Laboratory test result Normal ( applies to non-numeric results) [facility] ([facility] ) Hyaline Cast, Urine Auto RFX 0 /LPF 0-1 Normal (appl ies to non-numeric results) [facility] ([facility] ID Date Data Source [id number] 04/08/2020 07:05:00 PM EST [facility] [place] [place] [place] [facility] Name Value Range Interpretation Code Description Data Leona rce(s) Supporting Document(s) Hemoglobin A1c 7.9 % Normal (applies to non-numeric r esults) [facility] ([facility] <content>REFERENCE RANGES:</content><br/ ><content></content>
<content><=5.6% NORMAL</content>
<content>5.7-6.4% SUGGESTS IMPAIRED GLUCOSE METABOLISM/PREDIABETIC</content>
<content>>= 6.5% ABNORMAL</content>
<content></content> Estimated Average Glucose 180 mg/dL 60-110 Above high normal [facility] ([facility] ID Date Data Source [id number] 04/08/2020 06:27:00 PM EST [facility] ([facility]) Name Value Range Interpretation Code Description Data Leona rce(s) Supporting Document(s) Osmolality of Serum or Plasma 301 280-301 [facility] ([facility]) ID Date Data Source [id number] 04/08/2020 06:27:00 PM EST [facility] ([facility]) Name Value Range Interpretation Code Description Data Leona rce(s) Supporting Document(s) Beta hydroxybutyrate [Mass/volume] in Serum or Plasma 1.15 [facility] ([facility]) ID Date Data Source [id number] 04/08/2020 06:27:00 PM EST [facility] ([facility] ID Date Data Source [id number] 04/08/2020 06:27:00 PM EST [facility] ([facility] Name Value [...] Little GFR Left</content>
<content>ESRD GFR <15 on SIZE MIXER</content>
<content></content> Potassium Serum 4.3 meq/L 3.5-5.1 Normal (applies to non-numeric results) [facility] ([facility] Chloride Level 98 meq/L 98-107 Normal (applies to non-numeric r esults) [facility] ([facility] Carbon Dioxide Level 31 meq/L 21-32 Normal (applies to non-num ana rosa results) [facility] ([facility] Calcium Level 9.1 mg/dL 8.8-10.2 Normal (applies to non-numeric re sults) [facility] ([facility] Anion Gap 7 meq/L 8-16 Below low normal [facility] ( [facility] ID Date Data Source [id number] 04/08/2020 06:27:00 PM EST [facility] [place] [place] [place] [facility] Name Value Range Interpretation Code Description Data Leona rce(s) Supporting Document(s) Alt/SGPT 22 U/L 12-78 Normal (applies to non-numeric resul ts) [facility] ([facility] Ast/Sgot 19 U/L 7-37 Normal (applies to non-numeric resul ts) [facility] ([facility] Alkaline Phosphatase 100 U/L 45-117 Normal (applies to non-num ana rosa results) [facility] ([facility] Bilirubin,Total Laboratory test result 0.2-1.0 Below low normal [facility] ([facility] Total Protein 6.1 GM/DL 6.4-8.2 Below low normal [facility] ([facility] Bilirubin,Direct Laboratory test result 0.0-0.2 Normal ( applies to non-numeric results) [facility] ([facility] ) Albumin/Globulin Ratio 1.1 1.2-2.2 Below low normal [facility] Albumin 3.2 GM/DL 3.2-5.2 Normal (applies to non-numeric resul ts) [facility] ID Date Data Source [id number] 04/08/2020 06:27:00 PM EST [facility]AN[facility] ([facility] Name Value Range Interpretation Code Description Data Leona rce(s) Supporting Document(s) CPK Creatine Phosphokinase 102 U/L 26-192 Roselia l (applies to non-numeric results) [facility] ([facility] ) MB/CK Relative Index 1.57 Normal (applies to non-num ana rosa results) [facility] ([facility] <content>DIAGNOSIS CRITERIA</content>
<content>MMB ng/ml Relative Index (RI)</content>
<content>NON-AMI < or = 5 N/A</content>
<content>GIL ZONE > 5 < or = 4</content>
<content>AMI > 5 > 4</content>
<content></content> CK-MB Value Mass 1.6 ng/mL Normal (applies to non-numeric results) [facility] ([facility] Troponin I Laboratory test result Normal (applies to non-n umeric results) [facility] ([facility] <content>Troponin I Reference Interval f or Siemens [place] LOCI:</content>
<content></content>
<content>99th Percentile= 0.00-0.045 ng/ml</content>
<content></content>
<content>Risk Stratification:</content>
<content><= 0.10 ng/ml Decreased Risk for Adverse Clinical</content>
<content>Events.</content>
<content>0.10-1.50 ng/ml Increased Risk for Adverse Clinical</content>
<content>Events. Evaluation of additional</content>
<content>criterion and/or repeat testing in 2-6</content>
<content>hours is suggested to rule out myocardial</content>
<content>damage.</content>
<content>>= 1.50 ng/ml Indicative of Myocardial Injury.</content>
<content></content> ID Date Data Source [id number] 04/08/2020 06:27:00 PM EST [facility] ([facility] [place] [place] [facility] Name Value Range Interpretation Code Description Data Leona rce(s) Supporting Document(s) White Blood Count 7.0 10 4.0-10.0 Normal (applies to non-numeri c results) [facility] ([facility] Hemoglobin 10.4 g/dL 12.0-15.5 Below low normal [facility] ( [facility] Red Blood Count 4.16 10 4.00-5.40 Normal (applies to non-numeric results) [facility] ([facility] Mean Corpuscular Volume 84.1 fl 80.0-96.0 Normal ( applies to non-numeric results) [facility] ([facility] ) Hematocrit 35.0 % 36.0-47.0 Below low normal [facility] ( [facility] Mean Corpuscular HGB Conc 29.7 g/dL 32.0-36.5 Below low normal [facility] ([facility] Mean Corpuscular Hemoglobin 25.0 pg 27.0-33.0 Below low normal [facility] ([facility] Red Cell Distribution Width 18.4 % 11.5-14.5 Above high normal [facility] ([facility] Neutrophils % 59.6 % 36.0-66.0 Normal (applies to non-numeric re sults) [facility] ([facility] Platelet Count, Automated 284 10 150-450 Normal (applies to non-numeric results) [facility] ([facility] ) Lymph % 32.1 % 24.0-44.0 Normal (applies to non-numeric resul ts) [facility] ([facility] Lucas % 5.9 % 0.0-8.0 Normal (applies to [...] umeric results) [facility] ([facility] Lucas # 0.4 10 0.0-0.8 Normal (applies to non-numeric resul ts) [facility] ([facility] Neutrophils # 4.1 10 1.5-8.5 Normal (applies to non-numeric re sults) [facility] ([facility] Lymph # 2.2 10 1.5-5.0 Normal (applies to non-numeric resul ts) [facility] ([facility] Eos # 0.1 10 0.0-0.5 Normal (applies to non-numeric resul ts) [facility] ([facility] Baso # 0.0 10 0.0-0.2 Normal (applies to non-numeric resul ts) [facility] ([facility] ID Date Data Source [id number] 04/08/2020 06:27:00 PM EST [facility] [place] [place] [facility] Name Value Range Interpretation Code Description Data Leona rce(s) Supporting Document(s) Venous PH 7.383 units 7.330-7.430 Normal (applies to non-numeric res ults) [facility] ([facility] Venous Partial Pressure O2 42.0 mmHg 30.0-50.0 Roselia l (applies to non-numeric results) [facility] ([facility] ) Venous Partial Pressure Co2 52.7 mmHg 38.0-50.0 Above high normal [facility] ([facility] Venous Hco3 30.7 meq/L 23.0-27.0 Above high normal [facility] ([facility] Venous Total Co2 32.3 meq/L 24.0-28.0 Above high normal [facility] ([facility] Venous Base Excess 4.7 Above high normal [facility] ([facility] Venous Standard Hco3 28.2 meq/L Normal (applies to non-num ana rosa results) [facility] ([facility] Venous O2 Saturation 74.1 % 60.0-80.0 Normal (applies to non-num ana rosa results) [facility] ([facility] ID Date Data Source [id number] 03/28/2020 09:10:00 AM EST [facility] ([facility]) Name Value Range Interpretation Code Description Data Leona rce(s) Supporting Document(s) C reactive protein [Mass/volume] in Serum or Plasma by High sensitivity method Laboratory test result 0.00-0.30 [facility] ([facility]) ID Date Data Source [id number] 03/28/2020 09:10:00 AM EST [facility] ([facility]) Name Value Range Interpretation Code Description Data Leona rce(s) Supporting Document(s) Procalcitonin [Mass/volume] in Serum or Plasma 0.18 [facility] ([facility]) ID Date Data Source [id number] 03/28/2020 09:10:00 AM EST [facility] ([facility]) Name Value Range Interpretation Code Description Data Leona rce(s) Supporting Document(s) Erythrocyte sedimentation rate by Westergren method 23 0-30 [facility] ([facility] ) ID Date Data Source [id number] 03/28/2020 06:16:00 AM EST [facility] Name Value Range Interpretation Code Description Data Leona rce(s) Supporting Document(s) SARS coronavirus 2 RNA [Presence] in Res piratory specimen by DANIELA with probe detection NEGATIVE [facility] This lab was ordered by [facility] a nd reported by [facility]. ID Date Data Source [id number] 03/28/2020 05:11:00 AM EST [facility] ([facility]) Name Value Range Interpretation Code Description Data Leona rce(s) Supporting Document(s) Urine Culture Laboratory test result [facility] ([facility]) Urine Culture Laboratory test result [facility] ([facility]) ID Date Data Source [id number] 03/28/2020 03:33:00 AM EST [facility] ([facility]) Name Value Range Interpretation Code Description Data Leona rce(s) Supporting Document(s) Lactic Acid Level 1.5 0.4-2.0 [facility] ([facility]) ID Date Data Source [id number] 02/29/2020 07:44:00 PM EST [facility] Name Value Range Interpretation Code Description Data Leona rce(s) Supporting Document(s) SARS-CoV-2 (COVID 19) NEGATIVE - SARS-CoV-2 (COVID19) [facility] This lab was ordered by [facility] a nd reported by [facility]. ID Date Data Source [id number] 02/27/2020 11:39:00 AM EST [facility] ([facility], ) Name Value Range Interpretation Code Description Data Leona rce(s) Supporting Document(s) Creatinine For GFR 1.05 mg/dL 0.55-1.30 Normal (applies to non -numeric results) [facility], ) Glomerular Filtration Rate 55.3 Normal (applies to n on-numeric results) [facility] ([facility], ) <content>Units are mL/min/1.73 m2</content>
<content></content>
<content>Chronic Kidney Disease Staging per NKF:</content>
<content></content>
<content>Stage I & II GFR >=60 Normal to Mildly Decreased</content>
<content>Stage III GFR 30- 59 Moderately Decreased</content>
<content>Stage IV GFR 15-29 Severely Decreased</content>
<content>Stage V GFR <15 Very Little GFR Left</content>
<content>ESRD GFR <15 on SIZE MIXER</content>
<content></content> ID Date Data Source [id number] 02/27/2020 11:39:00 AM EST [facility] ([facility]) Name Value Range Interpretation Code Description Data Leona rce(s) Supporting Document(s) Urea nitrogen [Mass/volume] in Serum or Plasma 19 mg/dL 7-18 Above high normal [facility] ([facility]) ID Date Data Source [id number] 02/27/2020 11:39:00 [facility] Name Value Range Interpretation Code Description Data Leona rce(s) Supporting Document(s) Ferritin [Mass/volume] in Serum or Plasma 8 ng/mL 8-252 Normal (applies to non- numeric results) [facility] ([facility]) ID Date Data Source [id number] 02/27/2020 11:39:00 AM EST [facility] ([facility]) Name Value Range Interpretation Code Description Data Leona rce(s) Supporting Document(s) Total Iron Binding Capacity 433 ug/dL 250-450 Norm al (applies to non-numeric results) [facility] ([facility]) Iron (Fe) 30 ug/dL 50-170 Below low normal [facility] ( [facility]) Percent Saturation 6.9 % 13.2-45.0 Below low normal [facility] ([facility]) ID Date Data Source [id number] 02/27/2020 11:39:00 AM EST [facility] Name Value Range Interpretation Code Description Data Leona rce(s) Supporting Document(s) Red Blood Count 4.50 10 4.00-5.40 Normal (applies to non-numeric results) [facility] ([facility]) White Blood Count 6.3 10 4.0-10.0 Normal (applies to non-numeri c results) [facility] ([facility]) Hematocrit 36.6 % 36.0-47.0 Normal (applies to non-numeric resul ts) [facility] ([facility]) Hemoglobin 10.9 g/dL 12.0-15.5 Below low normal [facility] ( [facility]) Mean Corpuscular HGB Conc 29.8 g/dL 32.0-36.5 Below low normal [facility] ([facility]) Mean Corpuscular Hemoglobin 24.2 pg 27.0-33.0 Below low normal [facility] Mean Corpuscular Volume 81.3 fl 80.0-96.0 Normal ( applies to non-numeric results) [facility] ([facility]) Platelet Count, Automated 356 10 150-450 Normal (applies to non-numeric results) [facility] ([facility]) Red Cell Distribution Width 17.3 % 11.5-14.5 Above high normal [facility]) Lymph % 37.0 % 24.0-44.0 Normal (applies to non-numeric resul ts) [facility] ([facility]) Neutrophils % 52.7 % 36.0-66.0 Normal (applies to non-numeric re sults) [facility]) Lucas % 6.2 % 0.0-5.0 Above high normal [facility] ([facility]) Eos % 3.2 % 0.0-3.0 Above high normal [facility] ([facility]) Immature Granulocyte % 0.3 % 0-3.0 Normal (applies to non-n umeric results) [facility] ([facility]) Baso % 0.6 % 0.0-1.0 Normal (applies to non-numeric resul ts) [facility] ([facility]) Lymph # 2.3 10 1.5-5.0 Normal (applies to non-numeric resul ts) [facility]) Neutrophils # 3.3 10 1.5-8.5 Normal (applies to non-numeric re sults) [facility]) Nucleated Red Blood Cell % 0.0 % 0-0 Normal (applies to n on-numeric results) [facility] ([facility]) Lucas # 0.4 10 0.0-0.8 Normal (applies to non-numeric resul ts) [facility] ([facility]) Eos # 0.2 10 0.0-0.5 Normal (applies to non-numeric resul ts) [facility] ([facility], ) Baso # 0.0 10 0.0-0.2 Normal (applies to non-numeric resul ts) [facility] ([facility]) ID Date Data Source [id number] 01/18/2020 04:42:00 PM EST [facility] ([facility]) Name Value Range Interpretation Code Description Data Leona rce(s) Supporting Document(s) Lactate [Moles/volume] in Venous blood 1.11 0.4-2.0 [facility] ([facility]) ID Date Data Source [id number] 01/18/2020 04:31:00 PM EST [facility] ([facility]) Name Value Range Interpretation Code Description Data Leona rce(s) Supporting Document(s) aPTT in Blood by Coagulation assay 28.3 24.2-38.5 [facility] ([facility]) ID Date Data Source [id number] 01/18/2020 04:31:00 PM EST [facility] ([facility]) Name Value Range Interpretation Code Description Data Leona rce(s) Supporting Document(s) INR in Platelet poor plasma by Coagulation assay 0.91 [facility] ([facility]) ID Date Data Source [id number] 01/18/2020 04:31:00 PM EST [facility] ([facility]) Name Value Range Interpretation Code Description Data Leona rce(s) Supporting Document(s) Prothrombin time (PT) 12.4 12.5-14.3 [facility] ( [facility]) ID Date Data Source [id number] 01/01/2020 10:05:00 AM [facility] [address] [place] [address] RESPIRATORY CARE REPORT ==== ---------NAME------- NUMBER SEX AGE ADMIT DISC. XRAY# F/C NIDA De Souza [id number] F 69 12/31/19 12/31/19 [id number] JAN E/R DATE OF : 1950 M/R# [id number] #: [id number] TR-02 LOCATION: EMERGENCY DEPT [facility] [id number] COMP LETE:12/31/19 16:15 [facility] [id number] PHYSICIAN: ZOHREH WAITE Name Value Range Interpretation Code Description Data Leona rce(s) Supporting Document(s) ID Date Data Source [id number] 01/01/2020 10:02:00 AM EST [facility] [address] [place] [address] PHONE: [phone] FAX: [phone] Name .................. : MARY De Souza Acct Number.................. : [id number] ROOM. ................. : Number ................... : [id number] Stay type ............. : E/R Discharge Date......... ... : Admit Date ......... : 12/31/19 Admit Phys .................... : ZOHREH WAITE Date of ....... : 1950 Family Phys ................... : VASHTI Connelly Phone .................. : [phone] Age ................................ : 69 Film# .................. .:[id number] Sex ................................. : F Unsigned transcriptions are preliminary reports and do not represent a medical or legal document CHEST PORTABLE [id number] COMPLETE:12/31/19 15:38 87600 Reason(s): Chest Pain PORTABLE CHEST X-RAY: HISTORY: [...] rce(s) Supporting Document(s) ID Date Data Source [id number] 12/31/2019 03:26:00 PM EST [facility] 1 OrderSheet [facility] Emergency Department [address] [place] [address] Phone #: ext- [phone] 12/31/2019 15:23 Patient: [...] Description Priority Entered Acknowledged Initialed 2 OrderSheet [facility] Emergency Department [address] [place] [address] Phone #: ext- [phone] 12/31/2019 15:23 Patient: SARMAD HERNANDEZ Sex: F : 1950 Age: 69yAspirin PO 15:39 12/31/2019 15:44 Roz,Chewable 81 mg Michael Eastman R.N.162 mg (NOW) Physician;DuoNeb 3 mL X2 15:49 12/31/2019 15:52 G roves,Doses: 6 mL (3 mL Michael Eastman R.N.X2 Doses) Physician;SOLU-Medrol 125 15:49 12/31/2019 15:53 Allen,mg IV X1 Dose: 125 Michael Eastman R.N.mg (X1) Physician;Annabel Reardon Tx 3 17:03 12/31/2019 17:27 Robert Courtney [...] rce(s) Supporting Document(s) ID Date Data Source [id number] 12/31/2019 03:26:00 PM EST [facility] 1 Medication Reconciliation Report [facility] Emergency Department [address] [place] [address] Phone #: ext- [phone] 12/31/2019 15:23 Patient: [...] 12/31/2019 3:52:00 PM 2 Medication Reconciliation Report [facility] Emergency Department [address] [place] [address] Phone #: ext- [phone] 12/31/2019 15:23 Patient: [...] 1 inhaler. Refills: 1. Substitution permitted.Pharmacy - [phone] - [address] ; [place] [address]. . -- Physician ManoloPrednisone 10mg Tapersig: take [...] rce(s) Supporting Document(s) ID Date Data Source [id number] 12/31/2019 03:26:00 PM [facility] 1 Medication Administration Record [facility] Emergency Department [address] [place] [address] Phone #: ext- [phone] 12/31/2019 15:23 Patient: SARMAD HERNANDEZ Sex: F : 1950 Age: 69yWeight: 79.3 kgHeight/Length: 60 inBMI: 34.1ALLERGIES: Tape allergy Date/Time Medication Administered Medication OrderedGiven ASPIRIN CHEWABLE 81 MG [PO] Aspirin PO Chewable 81 mg 35814:44 12/31/2019 Dose: 81 mg Tablets PO mg [...] rce(s) Supporting Document(s) ID Date Data Source [id number] 12/31/2019 03:26:00 PM [facility] 1 General Instructions [facility] Emergency Department [address] [place] [address] Phone #: ext- [phone] 12/31/2019 15:23 Patient: [...] 1 inhaler. Refills: 1. Substitution permitted.Pharmacy - [facility] - [address] ; [place] [address]. .Prednisone 10mg Tapersig: take 6 tabs PO [...] patient. ADDITIONAL INFORMATIONBronchospasm (Adult) 2 General Instructions [facility] Emergency Department [address] [place] [address] Phone #: ext- [phone] 12/31/2019 15:23 Patient: [...] you drink extra fluids. 3 General Instructions [facility] Emergency Department [address] [place] [address] Phone #: ext- [phone] 12/31/2019 15:23 Patient: [...] breath Increased wheezing or shortness of breath [id number] [place] [address]. All rights reserved. This information is not intended as asubstitute for professional medical care. Always follow your healthcare professional's instructions.Asthma (Adult)Asthma is a disease where the medium and small air passages within the lung go into spasm andrestrict the flow of air. Inflammation and swelling of the airways cause further blockage. During an 4 General Instructions [facility] Emergency Department [address] [place] [address] Phone #: ext- [phone] 12/31/2019 15:23 Patient: SARMAD HERNANDEZ Sex: F [...] better after a few 5 General Instructions [facility] Emergency Department [address] [place] [address] Phone #: ext- [phone] 12/31/2019 15:23 Patient: [...] 80%) 15 minutes after using inhaler medicine.Call 911Call 911 if any of the following occur Trouble walking or talking because of shortness of breath If you use a peak flow meter as part of an Asthma Action Plan and you are still in the red zone (less than 50%) 15 minutes after using inhaler medicine Lips or fingernails turning gil or blue [employer] [address] [place] [address]. All rights reserved. This information is not intended as a 6 General Instructions [facility] Emergency Department [address] [place] [address] Phone #: ext- [phone] 12/31/2019 15:23 Patient: MARY SARMAD De Souza Sex: F : 1950 Age: 69ysubstitute for professional medical care. Always follow your healthcare professional's instructions. You have been given the following additional information: Bronchospasm (Adult) Asthma, Acute (Adult)(Electronically signed by Michael Bruner, Physician 12/31/2019 18:45) Name Value Range Interpretation Code Description Data Leona rce(s) Supporting Document(s) ID Date Data Source [id number] 12/31/2019 03:26:00 PM EST [facility] 1 Clinical Report - Nurses [facility] Emergency Department [address] [place] [address] Phone #: [phone]- [phone] 12/31/2019 15:23 Patient: SARMAD HERNANDEZ Sex: F [...] (3 days). ( wheezes, chest pain reproducable).Treatment DIRECTOR OF MARKETING:None. --15:35 12/31/19 Fay Martinez R.N.15:24 12/31/19. BP: 148/110 taken on the left arm, while lying. MAP: 122. HR: 68. RR: 18. O2 saturation:98% on room air. Temp: 97.8 F. Pain level now: 07/01. --15:35 12/31/19 Fay Martinez R.N.Weight: 79.3 kg stated. Height/Length: 60 inches Per Pa zaire. BMI: 34.1. --15:24 12/31/19 Fay Martinez R.N.MedicationsProtonix [...] R.N.ADDITIONAL SURGERIES: 2 Clinical Report - Nurses [facility] Emergency Department [address] [place] [address] Phone #: ext- [phone] 12/31/2019 15:23 Patient: [...] plan discussed with patient. Patient has a hh-adh-cvkhfyaghzm (DNR) (dnr/dni). --15:36 12/31/19 Fay Martinez R.N.PHYSICAL ASSESSMENTGENERAL / NEURO / PSYCH: Alert. Oriented X 4. Appears anxious.RESPIRATORY: Respirations not labored.CVS: Normal sinus rhythm noted. 3 Clinical Report - Nurses [facility] Emergency Department [address] [place] [address] Phone #: ext- [phone] 12/31/2019 15:23 Patient: [...] Courtney R.N. 4 Clinical Report - Nurses [facility] Emergency Department [address] [place] [address] Phone #: ext- [phone] 12/31/2019 15:23 Patient: SARMAD HERNANDEZ Sex: F [...] shown to the ED physician. 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 Written instructions provided in Pakistani. The patient was discharged by the physician. [...] rce(s) Supporting Document(s) ID Date Data Source [id number] 12/31/2019 03:26:00 PM EST [facility] 1 Clinical Report - Physicians/Mid Levels [facility] Emergency Department [address] [place] [address] Phone #: ext- [phone] 12/31/2019 15:23 Patient: [...] inspection. 2 Clinical Report - Physicians/Mid Levels [facility] Emergency Department [address] [place] [address] Phone #: ext- [phone] 12/31/2019 15:23 Patient: SARMAD HERNANDEZ Sex: F [...] 12/31/2019 17:39) [place] [address] PHONE: [phone] FAX: [phone] Name .................. : MARY De Souza Acct Number.................. : [id number] ROOM. ................. : TR-02 MR Number ................... : [id number] Stay type ............. : E/R Discharge Date......... ... : Admit Date ......... : 12/31/19 Admit Phys .................... : ZOHREH WAITE Date of ....... : 1950 Family Phys ................... : VASHTI Connelly Phone .................. : [phone] Age ..................... ........... : 69 Film# .................. .:[id number] Sex ................................. : F Unsigned transcriptions are preliminary reports and do not represent a medical or legal document CHEST PORTABLE [id number] COMPLETE:12/31/19 15:38 12379 Reason(s): Chest Pain Shortness of Breath PORTABLE CHEST X-RAY: HISTORY: Chest pain. COMPARISON: None. FINDINGS: Normal heart size and pulmonary vessels. Clear lungs. No pleural effusions. No acute or focal osseous abnormal. IMPRESSION: No active disease is seen in the chest. 3 Clinical Report - Physicians/Mid Levels [facility] Emergency Department [address] [place] [address] Phone #: ext- [phone] 12/31/2019 15:23 Patient: SARMAD HERNANDEZ Sex: F : 1950 Age: 69y Electronically Reviewed and Signed By DCTNAME , SIGNDATE, APM Transcribe Initials: DZ , Transcribe Date: 12/31/19 17:35, Dictation Date: [...] 40.0) 4 Clinical Report - Physicians/Mid Levels [facility] Emergency Department [address] [place] [address] Phone #: ext- [phone] 12/31/2019 15:23 Patient: [...] Male GFR Interprentation 20-49 yrs >60 mL/min Bvqexi48-16 yrs >56 mL/min Normal 60-69 yrs >49 mL/min Normal 70-79yrs>42 mL/min Normal 80 and above >35 mL/min Normal Female GFRInterpretation 20-39 yrs >60 mL/min Normal 40-49 yrs >58 mL/minNormal 50-59 yrs >51 mL/min Normal 60-69 yrs >45 mL/min Garyne02-72 yrs >39 mL/min Normal 80 and above [...] T. 5 Clinical Report - Physicians/Mid Levels [facility] Emergency Department [address] [place] [address] Phone #: ext- [phone] 12/31/2019 15:23 Patient: [...] inhaler. Refills: 1. Substitution permitted. Pharmacy - [id number] - [address] ; [place] [address]. . Prednisone 10mg Taper sig: take 6 tabs PO each day for 2 days, then Take 5 tabs PO each day for 2 days, then Take 4 tabs PO each day for 2 days, then Take 3 tabs PO each day for 2 days, then 6 Clinical Report - Physicians/Mid Levels [facility] Emergency Department [address] [place] [address] Phone #: ext- [phone] 12/31/2019 15:23 [id number] Sex[facility] F : 1950 Age: 69y Take [...] rce(s) Supporting Document(s) ID Date Data Source [id number] 12/31/2019 04:05:00 PM EST [facility] [place] [place] [place] [facility] Name Value Range Interpretation Code Description Data Leona rce(s) Supporting Document(s) Urinalysis Laboratory test result [facility] ([facility] SOURCE: Clean Catch Clarity Laboratory test result [facility] ([facility] SOURCE: Clean Catch Source Laboratory test result [facility] ([facility] SOURCE: Clean Catch Color Laboratory test result [facility] ([facility] SOURCE: Clean Catch Glucose 250 Abnormal (applies to non-numeric res ults) [facility] ([facility] SOURCE: Clean Catch pH 6.5 5-9 [facility] ([facility] SOURCE: Clean Catch Spec Quinton 1.010 1.001-1.030 [facility] ([facility] SOURCE: Clean Catch Ketone Laboratory test result [facility] ([facility] SOURCE: Clean Catch Protein Laboratory test result [facility] ([facility] SOURCE: Clean Catch Bilirubin Laboratory test result [facility] ([facility] SOURCE: Clean Catch Nitrite Laboratory test result [facility] ([facility] SOURCE: Clean Catch Blood Laboratory test result [facility] ([facility] SOURCE: Clean Catch Leuk Est 25 [facility] ([facility] SOURCE: Clean Catch Urobilinogen Laboratory test result [facility] ([facility] SOURCE: Clean Catch Microscopic Laboratory test result M EDENT ([facility] SOURCE: Clean Catch WBC Laboratory test result [facility] ([facility] SOURCE: Clean Catch Epithelial Laboratory test result [facility] ([facility] SOURCE: Clean Catch ID Date Data Source [id number] 12/31/2019 04:31:00 PM EST [facility] Name Value Range Interpretation Code Description Data Leona rce(s) Supporting Document(s) URINALYSIS [facility] URINALYSIS SOURCE Clean Catch [facility] COLOR yellow NORMAL: Yellow [facility] CLARITY clear NORMAL: Clear [facility] Specific gravity of Urine by Test strip 1.010 1.001 - 1.030 [facility] pH 6.5 5 - [facility] Gl[facility] [Mass/volume] in Urine by Test strip [facility] Bil[facility].total [Presence] in Urine by Test strip NEG NORMAL: Negative [facility] Ketones [Presence] in Urine by Test strip NEG NORMAL: Negative [facility] Protein [Mass/volume] in Urine by Test strip NEG NORMAL: Negat [facility] Nitrite [Presence] in Urine by Test strip NEG NORMAL: Negative [facility] BLOOD NEG NORMAL: Negative [facility] Leukocyte esterase [Presence] in Urine by Test strip 25 ROSELIA L: Negative [facility] Urobilinogen [Mass/volume] in Urine by Test strip NOR less olivia n 1.0 mg/dL [facility] MICROSCOPIC See Below [facility] ital WBC 1 - 3 NORMAL: NONE SEEN [facility] EPITHELIAL FEW NORMAL: NONE SEEN [facility] Hospital ID Date Data Source [id number] 12/31/2019 03:35:00 PM EST [facility] ([facility] [place] [place] [facility] Name Value Range Interpretation Code Description Data Leona rce(s) Supporting Document(s) Comprehensive [facility] Laboratory test result [facility] ([facility] COMPREHENSIVE METABOLIC PANEL Sodium 140 meq/L 134-153 [facility] Potassium 4.6 meq/L 3.6-5.0 [facility] Glucose 143 mg/dL 65-110 Above high normal [facility] ([facility] Co2 29 meq/L 22-30 [facility] Chloride 104 meq/L 98-107 [facility] ([facility] BUN/Creat 23 8-27 [facility] ([facility] Creatinine 0.9 mg/dL 0.7-1.5 [facility] BUN 21 mg/dL 7-21 [facility] ([facility] Albumin 4.2 g/dL 3.9-5.0 [facility] ([facility] Globulin 2.2 GM/DL 2.4-3.2 Below low normal [facility] ( [facility] Total Protein 6.4 g/dL 6.3-8.2 [facility] ([facility] A/G Ratio 1.9 0.8-2.0 [facility] ([facility] Total Bili Laboratory test result 0.2-1.3 [facility] ([facility] Calcium 9.2 mg/dL 8.4-10.2 [facility] ([facility] Sgot/Ast 17 U/L 5-40 [facility] ([facility] Alkaline Phos 88 U/L 38-126 [facility] ([facility] Anion Gap 7.0 mmol/L 8.0-16.0 Below low normal [facility] ( [facility] SGPT/Alt 12 U/L 7-56 [facility] ([facility] Non-Aa GFR Laboratory test result [facility] ([facility] Afr Amer GFR Laboratory test result [facility] ([facility] Male GFR Interprentation 20-49 yrs [...] >32 mL/min Normal Age 69 yrs [facility] ([facility] ID Date Data Source [id number] 12/31/2019 03:35:00 PM EST [facility] ([facility] [place] [place] [facility] Name Value Range Interpretation Code Description Data Leona rce(s) Supporting Document(s) Troponin T.cardiac [Mass/volume] in Serum or Plasma Laborato ry test result 0.00-0.10 [facility] TROPONIN T 0.1 ng/ml Recommended as the clinical th reshold value for Troponin T. Natriuretic peptide.B prohormone N-Terminal [Mass/volu me] in Serum or Plasma 144 pg/mL 0-125 Above high normal [facility] ([facility] ID Date Data Source [id number] 12/31/2019 03:35:00 PM EST [facility] ([facility] [place] [place] [facility] Name Value Range Interpretation Code Description Data Leona rce(s) Supporting Document(s) CBC W/Automated Diff Laboratory test result [facility] ([facility] COMPLETE BLOOD COUNT RBC 4.15 10^6/uL 4.20-5.40 Below low normal [facility] ([facility] WBC 6.5 10^3/uL 4.2-11.0 [facility] ([facility] Hemoglobin 10.1 g/dL 12.0-16.0 Below low normal [facility] ( [facility] MCV 80.2 fL 81.0-101 Below low normal [facility] ( [facility] Hematocrit 33.3 % 37.0-47.0 Below low normal [facility] ( [facility] MCH 24.3 pg 27.0-34.0 Below low normal [facility] ( [facility] Platelets 328 10^3/uL 150-450 [facility] ([facility] MCHC 30.3 g/dL 31.0-36.0 Below low normal [facility] ( [facility] MPV 10.2 fL 7.4-10.4 [facility] RDW 17.0 % 11.5-14.5 Above high normal [facility] ([facility] Lymph 28.0 % 25.0-40.0 [facility] Lucas 7.4 % 3.0-8.0 [facility] Neut 60.0 % 37.0-80.0 [facility] %NRBC 0.0 % 0.0-0.0 [facility] %Ig 0.2 % 0.0-0.0 Above high normal [facility] ([facility] Baso 0.5 % 0.0-2.5 [facility] Eos 3.9 % 0.0-7.0 [facility] #Lymph 1.81 10^3/uL 0.60-3.40 [facility] #Neut 3.88 10^3/uL 2.00-6.90 [facility] #Lucas 0.48 10^3/uL 0.00-0.90 [facility] #NRBC 0.00 10^3/uL 0.00-0.00 [facility] #Baso 0.03 10^3/uL 0.00-0.20 [facility] #Eos 0.25 10^3/uL 0.00-0.70 [facility] #Ig 0.01 10^3/uL 0.00-0.10 [facility] Manual Diff Laboratory test result M [facility] ([facility] RBC Morph Laboratory test result [facility] ([facility] ID Date Data Source [id number] 12/31/2019 03:35:00 PM EST [facility] ([facility] [place] [facility] Name Value Range Interpretation Code Description Data Leona rce(s) Supporting Document(s) Fibrin D-dimer [Presence] in Platelet poor plasma Laboratory test result 0.27-0.50 [facility] ID Date Data Source [id number] 12/31/2019 04:31:00 PM EST [facility] Name Value Range Interpretation Code Description Data Leona rce(s) Supporting Document(s) COMPREHENSIVE METABOLIC PANEL [facility] COMPREHENSIVE METABOLIC PANEL Sodium [Moles/volume] in Serum or Plasma 140 mEq/L 134 - 153 [facility] Potassium [Moles/volume] in Serum or Plasma 4.6 mEq/L 3.6 - 5.0 [facility] Chloride [Moles/volume] in Serum or Plasma 104 mEq/L 98 - 107 [facility] Carbon dioxide, total [Moles/volume] in Serum or Plasma 29 MEQ/L 22 - 30 [facility] Glucose [Mass/volume] in Serum or Plasma 143 MG/DL 65 - 110 H [facility] BUN 21 MG[facility]DL 7 [facility] Creatinine [Mass/volume] in Serum or Plasma 0.9 MG/DL 0.7 - 1.5 [facility] BUN/CREAT 23 8 - 27 [facility] al Protein [Mass/volume] in Serum or Plasma 6.4 G/DL 6.3 - 8.2 [facility] Albumin [Mass/volume] in Serum or Plasma 4.2 G/DL 3.9 - 5.0 [facility] Globulin [Mass/volume] in Serum by calculation 2.2 GM/DL 2.4 - 3.2 L [facility] A/G RATIO 1.9 0.8 - 2.0 [facility] Calcium [Mass/volume] in Serum or Plasma 9.2 MG/DL 8.4 - 10.2 [facility] Bilirubin.total [Mass/volume] in Serum or Plasma <0.7 MG/DL 0.2 - 1.3 [facility] Alkaline phosphatase [Enzymatic activity/volume] in Serum or Plasma 88 U/L 38 - 126 [facility] Aspartate aminotransferase [Enzymatic activity/volume] in Serum or Plasma 17 U/L 5 - 40 [facility] Alanine aminotransferase [Enzymatic activity/volume] in Seru m or Plasma 12 U/L 7 - 56 [facility] Anion gap 3 in Serum or Plasma 7.0 mmol/L 8.0 - 16.0 L [facility] AGE 69 yrs [facility] NON-AA GFR >60 mL/min [facility] AFR AMER GFR >60 [facility] Male GFR In terprentation [...] >32 mL/min Normal ID Date Data Source [id number] 12/31/2019 04:26:00 PM EST [facility] Name Value Range Interpretation Code Description Data Leona rce(s) Supporting Document(s) BNP 144 PG/ML 0 - 125 H [facility] ID Date Data Source [id number] 12/31/2019 04:20:00 PM [facility] Name Value Range Interpretation Code Description Data Leona rce(s) Supporting Document(s) TROPONIN T <0.01 NG/ML 0.00 - 0.10 [facility] TROPONIN T0.1 ng/ml Recommended as the c linical threshold value forTroponin T. ID Date Data Source [id number] 12/31/2019 04:13:00 PM [facility] Name Value Range Interpretation Code Description Data Leona rce(s) Supporting Document(s) CBC W/AUTOMATED DIFF [facility] COMPLETE BLOOD COUNT Leukocytes [#/volume] in Blood by Automated count 6.5 10^3/uL 4.2 - 1 1.0 [facility] Erythrocytes [#/volume] in Blood by Automated count 4.15 10^6/uL 4. 20 - 5.40 L [facility] Hemoglobin [Mass/volume] in Blood 10.1 g/dL 12.0 - 16.0 L [facility] Hematocrit [Volume Fraction] of Blood by Automated count 33.3 % 3 7.0 - 47.0 L [facility] Erythrocyte mean corpuscular volume [Entitic volume] by Auto mated count 80.2 fL 81.0 - 101 L [facility] Erythrocyte mean corpuscular hemoglobin [Entitic mass] by Automated count 24.3 pg 27.0 - 34.0 L [facility] Erythrocyte mean corpuscular hemoglobin concentration [Mass/volume] by Automated count 30.3 g/dL 31.0 - 36.0 L [facility] Erythrocyte distribution width [Ratio] by Automated count 17.0 % 11.5 - 14.5 H [facility] Platelets [#/volume] in Blood by Automated count 328 10^3/uL 150 - 45 0 [facility] Platelet mean volume [Entitic volume] in Blood by Automated count 10.2 fL 7.4 - 10.4 [facility] Neutrophils/100 leukocytes in Blood by Automated count 60.0 % 37. 0 - 80.0 [facility] Lymphocytes/100 leukocytes in Blood by Manual count 28.0 % 25.0 - 40.0 [facility] Monocytes/100 leukocytes in Blood by Automated count 7.4 % 3.0 - 8.0 [facility] Eosinophils/100 leukocytes in Blood by Automated count 3.9 % 0.0 - 7.0 [facility] Basophils/100 leukocytes in Blood by Automated count 0.5 % 0.0 - 2.5 [facility] %IG 0.2 % 0.0 - 0.[address] %NRBC 0.0 % 0.0 - 0.0 [facility] al Neutrophils [#/volume] in Blood by Automated count 3.88 10^3/uL 2.00 - 6.90 [facility] Lymphocytes [#/volume] in Blood by Automated count 1.81 10^3/uL 0.60 - 3.40 [facility] Monocytes [#/volume] in Blood by Automated count 0.48 10^3/uL 0.00 - 0.90 [facility] Eosinophils [#/volume] in Blood by Automated count 0.25 10^3/uL 0.00 - 0.70 [facility] Basophils [#/volume] in Blood by Automated count 0.03 10^3/uL 0.00 - 0.20 [facility] #IG 0.01 10^3/uL 0.00 - 0.10 [facility] #NRBC 0.00 10^3/uL 0.00 - 0.00 [facility] MANUAL DIFF NOT INDICATED [facility] RBC MORPH NOT INDICATED [facility] spital ID Date Data Source [id number] 12/31/2019 04:12:00 PM EST [facility] Name Value Range Interpretation Code Description Data Leona rce(s) Supporting Document(s) Fibrin D-dimer FEU [Mass/volume] in Platelet poor plasma <0. 27 ug/mL 0.27 - 0.50 [facility] ID Date Data Source [id number] 12/28/2019 04:34:00 PM EST [facility] ([facility] Name Value Range Interpretation Code Description Data Leona rce(s) Supporting Document(s) Jules Fernando virus capsid IgM Ab [Presence] in Serum Laborat ory test result 0.0-35.9 Normal (applies to non-numeric results) [facility] ([facility] <content>Negative <36.0</content>
<content>Equivocal 36.0 - 43.9</content>
<content>Positive >43.9</content>
<content>Performed at: [facility]</content>
<content>[address] [place] [id number]</content>
<content>Director Of Respiratory Therapy: Virginie Acevedo MD, Phone: [phone]</content>
<content></content> ID Date Data Source [id number] 12/28/2019 04:34:00 PM EST [facility] ([facility] Name Value Range Interpretation Code Description Data Leona rce(s) Supporting Document(s) Blood Urea Nitrogen 22 mg/dL 7-18 Above high normal [facility] ([facility] Creatinine For GFR 0.86 mg/dL 0.55-1.30 Normal (applies to non -numeric results) [facility] ([facility] Glucose, Fasting 63 mg/dL 70-100 Below low normal [facility] ([facility] Potassium Serum 4.0 meq/L 3.5-5.1 Normal (applies to non-numeric results) [facility] ([facility] Glomerular Filtration Rate Laboratory test result Normal (applies to non- numeric results) [facility] <content>Units are mL/min/1.73 m2</content>
<content></content>
<content>Chronic Kidney Disease Staging per NKF:</content>
<content></content>
<content>Stage I & II GFR >=60 Normal to Mildly Decreased</content>
<content>Stage III GFR 30- 59 Moderately Decreased</content>
<content>Stage IV GFR 15-29 Severely Decreased</content>
<content>Stage V GFR <15 Very Little GFR Left</content>
<content>ESRD GFR <15 on SIZE MIXER</content>
<content></content> Sodium Level 139 meq/L 136-145 Normal (applies to non-numeric res ults) [facility] ([facility] Carbon Dioxide Level 28 meq/L 21-32 Normal (applies to non-num ana rosa results) [facility] ([facility] Chloride Level 105 meq/L 98-107 Normal (applies to non-numeric r esults) [facility] ([facility] Anion Gap 6 meq/L 8-16 Below low normal [facility] ( [facility] Calcium Level 9.6 mg/dL 8.8-10.2 Normal (applies to non-numeric re sults) [facility] ([facility] Alt/SGPT 17 U/L 12-78 Normal (applies to non-numeric resul ts) [facility] ([facility] Ast/Sgot 16 U/L 7-37 Normal (applies to non-numeric resul ts) [facility] ([facility] Bilirubin,Total 0.2 mg/dL 0.2-1.0 Normal (applies to non-numeric results) [facility] ([facility] Alkaline Phosphatase 88 U/L 45-117 Normal (applies to non-num ana rosa results) [facility] ([facility] Total Protein 6.6 GM/DL 6.4-8.2 Normal (applies to non-numeric re sults) [facility] ([facility] Albumin/Globulin Ratio 1.2 1.2-2.2 Normal (applies to non-n umeric results) [facility] ([facility] Albumin 3.6 GM/DL 3.2-5.2 Normal (applies to non-numeric resul ts) [facility] ([facility] ID Date Data Source [id number] 12/28/2019 04:34:00 PM EST [facility] ([facility] [place] [place] [facility] Name Value Range Interpretation Code Description Data Leona rce(s) Supporting Document(s) Hemoglobin 10.5 g/dL 12.0-15.5 Below low normal [facility] ( [facility] Red Blood Count 4.32 10 4.00-5.40 Normal (applies to non-numeric results) [facility] ([facility] White Blood Count 8.7 10 4.0-10.0 Normal (applies to non-numeri c results) [facility] ([facility] Hematocrit 35.1 % 36.0-47.0 Below low normal [facility] ( [facility] Mean Corpuscular Volume 81.3 fl 80.0-96.0 Normal ( applies to non-numeric results) [facility] ([facility] ) Mean Corpuscular HGB Conc 29.9 g/dL 32.0-36.5 Below low normal [facility] ([facility] Red Cell Distribution Width 16.7 % 11.5-14.5 Above high normal [facility] ([facility] Mean Corpuscular Hemoglobin 24.3 pg 27.0-33.0 Below low normal MEDENT ([facility] Lymph % 19.4 % 24.0-44.0 Below low normal MEDENT ( [facility] Neutrophils % 71.8 % 36.0-66.0 Above high normal MEDE NT ([facility] Platelet Count, Automated 344 10 150-450 Normal (applies to non-numeric results) MEDENT ([facility] ) Lucas % 6.7 % 0.0-5.0 Above high normal MEDENT ([facility] Eos % 1.6 % 0.0-3.0 Normal (applies to non-numeric resul ts) MEDENT ([facility] Baso % 0.3 % 0.0-1.0 Normal (applies to non-numeric resul ts) MEDENT ([facility] Immature Granulocyte % 0.2 % 0-3.0 Normal (applies to non-n umeric results) MEDENT ([facility] Nucleated Red Blood Cell % 0.0 % 0-0 Normal (applies to n on-numeric results) MEDENT ([facility] Neutrophils # 6.2 10 1.5-8.5 Normal (applies to non-numeric re sults) MED[facility] ([facility] Lymph # 1.7 10 1.5-5.0 Normal (applies to non-numeric resul ts) MEDENT ([facility] Lucas # 0.6 10 0.0-0.8 Normal (applies to non-numeric resul ts) MED[facility] ([facility] Eos # 0.1 10 0.0-0.5 Normal (applies to non-numeric resul ts) MEDENT ([facility] Baso # 0.0 10 0.0-0.2 Normal (applies to non-numeric resul ts) MED[facility] ([facility] ID Date Data Source [id number] 12/28/2019 02:51:00 PM EST MEDENT ([facility] Name Value Range Interpretation Code Description Data Leona rce(s) Supporting Document(s) Color Urine Laboratory test result M EDENT ([facility] Appearance of Urine Laboratory test result MEDENT ([facility] Specific [place] 1.020 1.00-1.03 MEDENT ([facility] PH Urine 6.5 5.0-8.0 [facility] Glucose Urine Laboratory test result MEDENT ([facility] Bilirubin.total [Presence] in Urine by Test strip Laboratory test res ult MEDENT ([facility] Blood Urine Laboratory test result M EDENT ([facility] Ketones Laboratory test result MEDENT ([facility] Protein Urine Laboratory test result MEDENT ([facility] Nitrite Laboratory test result MEDENT ([facility] Urobilinogen 0.2 EU/dl 0.2-1.0 [facility] ([facility] Leukocytes Laboratory test result ME DENT ([facility] ID Date Data Source [id number] 12/28/2019 02:50:00 PM EST MED[facility] ([facility] [place] [facility] Name Value Range Interpretation Code Description Data Leona rce(s) Supporting Document(s) Urine Culture, Routine Laboratory test result MEDENT ([facility] SRC:URINE Bacteria identified in Urine by Culture Laboratory test result MEDENT ([facility] SRC:URINE ID Date Data Source [id number] 12/28/2019 01:37:00 PM EST [facility] ([facility] [place] [facility] Name Value Range Interpretation Code Description Data Leona rce(s) Supporting Document(s) [facility] mg/dL 65-109 MEDENT ([facility] Procedure Social History Code Duration Value Status Description Data Source(s ) Smoking 10/10/2020 12:00:00 AM EDT Patient is a former smoker completed Patient is a former smoker MEDENT ([facility] ) Smoking 09/03/2020 12:00:00 AM EDT Patient is a former smoker completed Patient is a former smoker MEDENT ([facility]) Vital Signs ID Date Data Source UNK Name Value Range Interpretation Code Description Data Source(s) Systolic blood pressure 124 mm[Hg] 124 mm[Hg] M EDENT ( [facility] Diastolic blood pressure 70 mm[Hg] 70 mm[Hg] [facility] ([facility] Body temperature 97.5 [degF] 97.5 [degF] [facility] ([facility] Heart rate 70 /min 70 /min MED[facility] ( [facility] Respiratory rate 18 /min 18 /min MEDENT ( [facility] Body height 60.5 [in_i] 60.5 [in_i] [facility] ([facility] 5'0.50" Body weight 166.00 [lb_av] 166.00 [lb_av] MEDEN T ([facility] [place] body weight 100 [lb_av] 100 [lb_av] MEDEN T ([facility] Body mass index (BMI) [Ratio] 31.9 kg/m2 31.9 k g/m2 MEDENT ([facility] Oxygen saturation in Arterial blood by Pulse oximetry 97 % 97 % MED[facility] ( [facility] Systolic blood pressure 126 mm[Hg] 126 mm[Hg] M EDENT ([facility] Diastolic blood pressure 70 mm[Hg] 70 mm[Hg] MED[facility] ([facility] Body temperature 97.4 [degF] 97.4 [degF] MED[facility] ([facility] Heart rate 70 /min 70 /min MED[facility] ([facility] Respiratory rate 14 /min 14 /min MED[facility] ( [facility] Body height 60.5 [in_i] 60.5 [in_i] MEDENT ([facility] 5'0.50" Body weight 170.00 [lb_av] 170.00 [lb_av] MEDEN T ([facility] [place] body weight 100 [lb_av] 100 [lb_av] MEDEN T ([facility] Body mass index (BMI) [Ratio] 32.7 kg/m2 32.7 k g/m2 MEDENT ([facility] Oxygen saturation in Arterial blood by Pulse oximetry 97 % 97 % [facility] Systolic blood pressure 148 mm[Hg] 148 mm[Hg] M EDENT ([facility]) Diastolic blood pressure 86 mm[Hg] 86 mm[Hg] [facility] ([facility]) Body temperature 98.4 [degF] 98.4 [degF] [facility] ([facility]) [place] body weight 100 [lb_av] 100 [lb_av] MEDEN T ([facility]) Body height 59 [in_i] 59 [in_i] [facility] ([facility]) 4'11" Body weight 170.25 [lb_av] 170.25 [lb_av] MEDEN T ([facility]) Body mass index (BMI) [Ratio] 34.4 kg/m2 34.4 k g/m2 [facility] ([facility]) Body weight 77.225 kg 77.225 kg [facility] ([facility]) Body surface area Derived from formula 1.72 m2 1.72 m2 [facility] ([facility]) Systolic blood pressure 140 mm[Hg] 140 mm[Hg] M EDENT ([facility] Diastolic blood pressure 64 mm[Hg] 64 mm[Hg] MEDENT ([facility] Body temperature 97.0 [degF] 97.0 [degF] [facility] Heart rate 72 /min 72 /min MED[facility] ([facility] Respiratory rate 18 /min 18 /min [facility] Body height 60.5 [in_i] 60.5 [in_i] MED[facility] ([facility] 5'0.50" Body weight 172.00 [lb_av] 172.00 [lb_av] MEDEN T ([facility] [place] body weight 100 [lb_av] 100 [lb_av] MEDEN T ([facility] Body mass index (BMI) [Ratio] 33.0 kg/m2 33.0 k g/m2 MEDENT ([facility] Oxygen saturation in Arterial blood by Pulse oximetry 98 % 98 % MEDENT ([facility] [place] body weight 100 [lb_av] 100 [lb_av] MEDEN T ([facility] Body mass index (BMI) [Ratio] 33.2 kg/m2 33.2 k g/m2 MEDENT ([facility] Respiratory rate 18 /min 18 /min MEDENT ( [facility] Systolic blood pressure 124 mm[Hg] 124 mm[Hg] M EDENT ([facility] Diastolic blood pressure 84 mm[Hg] 84 mm[Hg] MEDENT ([facility] Body temperature 98.4 [degF] 98.4 [degF] MEDENT ([facility] Heart rate 78 /min 78 /min MEDENT ([facility] Body height 60.5 [in_i] 60.5 [in_i] MEDENT ([facility] 5'0.50" Body weight 173.00 [lb_av] 173.00 [lb_av] MEDEN T ([facility] Oxygen saturation in Arterial blood by Pulse oximetry 97 % 97 % MEDENT ([facility] Body temperature 97.4 [degF] 97.4 [degF] MEDENT ([facility], ) Body height 60.5 [in_i] 60.5 [in_i] MEDENT ([facility] 5'0.50" Body weight 176.00 [lb_av] 176.00 [lb_av] MEDEN T ([facility] [place] body weight 100 [lb_av] 100 [lb_av] MEDEN T ([facility] Body mass index (BMI) [Ratio] 33.8 kg/m2 33.8 k g/m2 MEDENT ([facility] Oxygen saturation in Arterial blood by Pulse oximetry 99 % 99 % MEDENT ([facility] Systolic blood pressure 122 mm[Hg] 122 mm[Hg] M EDENT ([facility] Diastolic blood pressure 74 mm[Hg] 74 mm[Hg] MEDENT ([facility] Body temperature 98.0 [degF] 98.0 [degF] MEDENT ([facility] Heart rate 90 /min 90 /min MEDENT ([facility] Respiratory rate 18 /min 18 /min MEDENT ( [facility] Systolic blood pressure 112 mm[Hg] 112 mm[Hg] M EDENT ([facility] Diastolic blood pressure 72 mm[Hg] 72 mm[Hg] MEDENT ([facility] Body temperature 97.5 [degF] 97.5 [degF] MEDENT ([facility] Heart rate 78 /min 78 /min MEDENT ([facility] Respiratory rate 18 /min 18 /min MEDENT ( [facility] Body height 60.5 [in_i] 60.5 [in_i] MEDENT ([facility] 5'0.50" Body weight 182.00 [lb_av] 182.00 [lb_av] MEDEN T ([facility] [place] body weight 100 [lb_av] 100 [lb_av] MEDEN T ([facility] Body mass index (BMI) [Ratio] 35.0 kg/m2 35.0 k g/m2 MEDENT ([facility] Oxygen saturation in Arterial blood by Pulse oximetry 97 % 97 % MEDENT ([facility] Body surface area Derived from formula 1.77 m2 1.77 m2 MEDENT ([facility]) Body weight 82.102 kg 82.102 kg MEDENT ([facility]) Systolic blood pressure 155 mm[Hg] 155 mm[Hg] M EDENT ([facility]) Diastolic blood pressure 78 mm[Hg] 78 mm[Hg] MEDENT ([facility]) Heart rate 73 /min 73 /min [facility] ([facility]) Body height 59 [in_i] 59 [in_i] MEDENT ([facility]) 4'11" Body weight 181.00 [lb_av] 181.00 [lb_av] MEDEN T ([facility]) Body mass index (BMI) [Ratio] 36.6 kg/m2 36.6 k g/m2 [facility] ([facility]) [place] body weight 100 [lb_av] 100 [lb_av] MEDEN T ([facility]) Systolic blood pressure 121 mm[Hg] 121 mm[Hg] M EDENT ([facility]) Diastolic blood pressure 64 mm[Hg] 64 mm[Hg] MEDENT ([facility]) Heart rate 70 /min 70 /min MEDENT ([facility]) Body height 59.1 [in_i] 59.1 [in_i] MEDENT ([facility]) 4'11.10" Body weight 183.19 [lb_av] 183.19 [lb_av] MEDEN T ([facility]) Body mass index (BMI) [Ratio] 36.9 kg/m2 36.9 k g/m2 MEDENT ([facility]) Oxygen saturation in Arterial blood by Pulse oximetry 98 % 98 % MEDENT ([facility] ) Systolic blood pressure 139 mm[Hg] 139 mm[Hg] M EDENT ([facility]) Diastolic blood pressure 82 mm[Hg] 82 mm[Hg] MEDENT ([facility]) Heart rate 65 /min 65 /min MEDENT ([facility]) Respiratory rate 13 /min 13 /min MEDENT ( [facility]) Oxygen saturation in Arterial blood by Pulse oximetry 97 % 97 % MEDENT ([facility]) Body temperature 98.0 [degF] 98.0 [degF] MEDENT ([facility]) Body weight 185.00 [lb_av] 185.00 [lb_av] MEDEN T ([facility]) Body height 59 [in_i] 59 [in_i] MED[facility] ([facility]) 4'11" Body mass index (BMI) [Ratio] 37.4 kg/m2 37.4 k g/m2 MEDENT ([facility]) Heart rate 60 /min 60 /min [facility] ([facility] Systolic blood pressure 114 mm[Hg] 114 mm[Hg] M EDENT ([facility] Diastolic blood pressure 70 mm[Hg] 70 mm[Hg] MEDENT ([facility] Body temperature 98.1 [degF] 98.1 [degF] MEDENT ([facility] Respiratory rate 14 /min 14 /min MEDENT ( [facility] Body weight 185.00 [lb_av] 185.00 [lb_av] MEDEN T ([facility] [place] body weight 100 [lb_av] 100 [lb_av] MEDEN T ([facility] Body mass index (BMI) [Ratio] 35.5 kg/m2 35.5 k g/m2 MED[facility] ([facility] Oxygen saturation in Arterial blood by Pulse oximetry 97 % 97 % MEDENT ([facility] Body height 60.5 [in_i] 60.5 [in_i] [facility] ([facility] 5'0.50" Body height 59.1 [in_i] 59.1 [in_i] MEDENT ([facility] ) 4'11.10" Systolic blood pressure 114 mm[Hg] 114 mm[Hg] M EDENT ([facility] ) Body weight 185.25 [lb_av] 185.25 [lb_av] MEDEN T ([facility] ) Body mass index (BMI) [Ratio] 37.3 kg/m2 37.3 k g/m2 MEDENT ([facility]) Oxygen saturation in Arterial blood by Pulse oximetry 98 % 98 % MEDENT ([facility]) Diastolic blood pressure 76 mm[Hg] 76 mm[Hg] MEDENT ([facility]) Heart rate 76 /min 76 /min MED[facility] ([facility]) Body temperature 97.1 [degF] 97.1 [degF] [facility] Body height 59 [in_i] 59 [in_i] [facility] ([facility]) 4'11" Body weight 188.00 [lb_av] 188.00 [lb_av] MEDEN T ([facility]) Body mass index (BMI) [Ratio] 38.0 kg/m2 38.0 k g/m2 [facility] ([facility]) [place] body weight 100 [lb_av] 100 [lb_av] MEDEN T ([facility]) Body weight 85.277 kg 85.277 kg [facility] ([facility]) Body surface area Derived from formula 1.80 m2 1.80 m2 [facility] ([facility]) Systolic blood pressure 149 mm[Hg] 149 mm[Hg] EDENT ([facility]) Diastolic blood pressure 78 mm[Hg] 78 mm[Hg] [facility] ([facility]) Body height 59 [in_i] 59 [in_i] [facility] ([facility]) 4'11" Body weight 188.00 [lb_av] 188.00 [lb_av] MEDEN T ([facility]) Body mass index (BMI) [Ratio] 38.0 kg/m2 38.0 k g/m2 [facility] ([facility]) [place] body weight 100 [lb_av] 100 [lb_av] MEDEN T ([facility]) Body weight 85.277 kg 85.277 kg [facility] ([facility]) Body surface area Derived from formula 1.80 m2 1.80 m2 [facility] ([facility]) Body mass index (BMI) [Ratio] 37.4 kg/m2 37.4 k g/m2 [facility] ([facility]) Systolic blood pressure 149 mm[Hg] 149 mm[facility]Hg] [facility] Diastolic blood pressure 80 mm[Hg] 80 mm[Hg] [facility] ([facility]) Heart rate 73 /min 73 /min [facility] ([facility]) Body height 59 [in_i] 59 [in_i] MEDENT ([facility]) 4'11" Body weight 185.38 [lb_av] 185.38 [lb_av] MEDEN T ([facility]) [place] body weight 100 [lb_av] 100 [lb_av] MEDEN T ([facility]) Body weight 84.086 kg 84.086 kg [facility] ([facility]) Body surface area Derived from formula 1.79 m2 1.79 m2 [facility] ([facility]) Diastolic blood pressure 81 mm[Hg] 81 mm[Hg] [facility] ([facility]) Body height 59 [in_i] 59 [in_i] [facility] ([facility]) 4'11" Body weight 184.00 [lb_av] 184.00 [lb_av] MEDEN T ([facility]) Body mass index (BMI) [Ratio] 37.2 kg/m2 37.2 k g/m2 [facility] ([facility]) [place] body weight 100 [lb_av] 100 [lb_av] MEDEN T ([facility]) Body weight 83.462 kg 83.462 kg [facility] ([facility]) Body surface area Derived from formula 1.78 m2 1.78 m2 [facility] ([facility]) Systolic blood pressure 116 mm[Hg] 116 mm[Hg] [facility] Systolic blood pressure 119 mm[Hg] 119 mm[Hg] M [facility] ([facility]) Diastolic blood pressure 57 mm[Hg] 57 mm[Hg] [facility] ([facility]) Heart rate 64 /min 64 /min MEDENT ([facility]) Body height 59 [in_i] 59 [in_i] MEDENT ([facility]) 4'11" Body weight 180.38 [lb_av] 180.38 [lb_av] MEDEN T ([facility]) Body mass index (BMI) [Ratio] 36.4 kg/m2 36.4 k g/m2 [facility] ([facility]) [place] body weight 100 [lb_av] 100 [lb_av] MEDEN T ([facility]) Body weight 81.818 kg 81.818 kg [facility] ([facility]) Body surface area Derived from formula 1.77 m2 1.77 m2 [facility] ([facility]) Systolic blood pressure 136 mm[Hg] 136 mm[Hg] EDENT ([facility]) Diastolic blood pressure 74 mm[Hg] 74 mm[Hg] [facility] ([facility]) Body height 59 [in_i] 59 [in_i] [facility] ([facility]) 4'11" Body weight 185.00 [lb_av] 185.00 [lb_av] MEDEN T ([facility]) Body mass index (BMI) [Ratio] 37.4 kg/m2 37.4 k g/m2 [facility] ([facility]) [place] body weight 100 [lb_av] 100 [lb_av] MEDEN T ([facility]) Body weight 83.916 kg 83.916 kg [facility] ([facility]) Body surface area Derived from formula 1.78 m2 1.78 m2 [facility] ([facility]) Body temperature 96.9 [degF] 96.9 [degF] MEDENT ([facility] ) Body temperature 96.8 [degF] 96.8 [degF] MEDENT ([facility] ) Body temperature 97.2 [degF] 97.2 [degF] MEDENT ([facility] ) Body height 60 [in_i] 60 [in_i] MEDENT ([facility] ) 5'0" Body weight 186.50 [lb_av] 186.50 [lb_av] MEDEN T ([facility]) Body mass index (BMI) [Ratio] 36.4 kg/m2 36.4 k g/m2 [facility] ([facility]) Systolic blood pressure 108 mm[Hg] 108 mm[Hg] M EDENT ([facility]) Diastolic blood pressure 56 mm[Hg] 56 mm[Hg] MEDENT ([facility]) Heart rate 75 /min 75 /min MEDENT ([facility]) Respiratory rate 18 /min 18 /min [facility] ( [facility]) Oxygen saturation in Arterial blood by Pulse oximetry 96 % 96 % [facility] ([facility]) Body temperature 97.0 [degF] 97.0 [degF] [facility] ([facility]) Body weight 185.00 [lb_av] 185.00 [lb_av] MEDEN T ([facility]) Systolic blood pressure 128 mm[Hg] 128 mm[Hg] [facility] Diastolic blood pressure 66 mm[Hg] 66 mm[Hg] [facility] ([facility]) Body height 59 [in_i] 59 [in_i] [facility] ([facility]) 4'11" Body weight 191.00 [lb_av] 191.00 [lb_av] [facility] Body mass index (BMI) [Ratio] 38.6 kg/m2 38.6 k g/m2 [facility] ([facility]) [place] body weight 100 [lb_av] 100 [lb_av] [facility] Body weight 86.638 kg 86.638 kg [facility] ([facility]) Body surface area Derived from formula 1.81 m2 1.81 m2 [facility] ([facility]) Systolic blood pressure 124 mm[Hg] 124 mm[Hg] [facility] Body height 60.5 [in_i] 60.5 [in_i] [facility] ([facility] 5'0.50" Body weight 188.00 [lb_av] 188.00 [lb_av] MEDEN T ([facility] [place] body weight 100 [lb_av] 100 [lb_av] MEDEN T ([facility] Body mass index (BMI) [Ratio] 36.1 kg/m2 36.1 k g/m2 MEDENT ([facility] Oxygen saturation in Arterial blood by Pulse oximetry 97 % 97 % SHANNAN ([facility] Diastolic blood pressure 70 mm[Hg] 70 mm[Hg] MEDENT ([facility] Body temperature 98.5 [degF] 98.5 [degF] MEDRADHA ([facility] Heart rate 72 /min 72 /min MEDRADHA ([facility] Respiratory rate 16 /min 16 /min SHANNAN ( [facility]
[2021-01-07 05:48] VITALS: BP 134/64
--- NOTE | 2021-01-07 11:27 | ECGEPIP ---
[facility] - ED Test Date: 2021-01-06 Pat Name: SARMAD HERNANDEZ Department: Room: - Gender: Female [employer]iture [employer]: JCMO : 1950 Requested By: RAYMOND Greene Order Number: [id number] Reading MD: Balta Pacheco Measurements Intervals [place] Rate: 67 P: [place]: 144 QRS: 69 QRSD: 76 T: 37 QT: 404 QTc: 426 Interpretive Statements Normal sinus rhythm POOR R WAVE PROGRESSION NONSPECIFIC T WAVE ABNORMALITY(S) SIMILAR TO 11/27/20 Electronically Signed on 01-07-2021 11:26:42 EST by Balta Pacheco
== END 2021-01-07 05:45 | disposition home or self-care (01) ==
LOC: M ED 19:50
DX: E11.649 Type 2 diabetes mellitus with hypoglycemia without coma (principal); I10 Essential (primary) hypertension; Z79.899 Other long term (current) drug therapy; Z91.89 Other specified personal risk factors, not elsewhere classified

== ENCOUNTER → 2021-03-14 | Outpatient (CLI) | payer MEDICARE, OTHER ==
[~2021-03-14] MED LIST changes: -DICY20TA11; +DICY20TA20; -LISI-898; -LISI-898 PO; +LISI5TAB11; +LISI5TAB11 PO; -OMEP-221; +OMEP40CA5
[2021-03-14 16:56] LABS: ALBUMIN 3.5 GM/DL (3.2-5.2); BILIRUBIN,TOTAL 0.3 MG/DL (0.2-1.0); CALCIUM LEVEL 8.9 MG/DL (8.8-10.2); CHOLESTEROL RISK RATIO 2.542 (<5); CREATININE FOR GFR 1.18 MG/DL (0.55-1.30); GLOMERULAR FILTRATION RATE 48.2 (>39); POTASSIUM SERUM 4.1 MEQ/L (3.5-5.1); TOTAL PROTEIN 6.5 GM/DL (6.4-8.2)
[2021-03-14 17:03] LABS: CREATININE, URINE 18.2 MG/DL; MALB URINE SIEMENS 8.2 MG/L
[2021-03-14 17:24] LABS: HEMOGLOBIN A1c 9.7 %
== END ==
LOC: M WUC 13:34
PROVIDERS: ATTEND Internal Medicine
DX: E78.5 Hyperlipidemia, unspecified (principal); E11.649 Type 2 diabetes mellitus with hypoglycemia without coma

== ENCOUNTER 2021-04-18 17:40 | Emergency (ER) | payer MEDICARE, OTHER ==
[~2021-04-18] VITALS: Ht 149.9 cm; Wt 75.0 kg
[2021-04-18] MEDS ORDERED: NS 500 ML IV ONE (18:05)
[2021-04-18] MEDS ORDERED: METOCLOPRAMIDE INJ 10MG/2ML VIAL (J2765 PER 1) IV ONE (18:05)
[2021-04-18 18:29] LABS: BASO % 0.5 % (0.0-1.0); EOS # 0.2 10^3/uL (0.0-0.5); EOS % 2.2 % (0.0-3.0); HEMATOCRIT 46.1 % (36.0-47.0); HEMOGLOBIN 14.5 g/dl (12.0-15.5); LYMPH # 2.7 10^3/uL (1.5-5.0); MEAN CORPUSCULAR HEMOGLOBIN 27.3 pg (27.0-33.0); MEAN CORPUSCULAR HGB CONC 31.5 g/dl (32.0-36.5); MEAN CORPUSCULAR VOLUME 86.7 fl (80.0-96.0); MONO # 0.4 10^3/uL (0.0-0.8); MONO % 4.5 % (2.0-8.0); NEUTROPHILS # 4.5 10^3/uL (1.5-8.5); NEUTROPHILS % 57.5 % (36.0-66.0); PLATELET COUNT, AUTOMATED 296 10^3/uL (150-450); RED BLOOD COUNT 5.32 10^6/uL (4.00-5.40); WHITE BLOOD COUNT 7.7 10^3/uL (4.0-10.0)
[2021-04-18 18:50] LABS: HEMOGLOBIN A1c 11.4 %
[2021-04-18 19:04] LABS: ALBUMIN 3.8 GM/DL (3.2-5.2); BILIRUBIN,DIRECT 0.1 MG/DL (0.0-0.2); BILIRUBIN,TOTAL 0.3 MG/DL (0.2-1.0); CALCIUM LEVEL 9.7 MG/DL (8.8-10.2); CREATININE FOR GFR 0.99 MG/DL (0.55-1.30); GLOMERULAR FILTRATION RATE 58.9 (>39); POTASSIUM SERUM 3.8 MEQ/L (3.5-5.1); THYROID STIMULATING HORMONE 5.93 uIU/ML (0.358-3.740); TOTAL PROTEIN 7.2 GM/DL (6.4-8.2)
[2021-04-18 21:30] VITALS: BP 126/55
[2021-04-18] MEDS ORDERED: MIRA3350 PO (22:47)
== END 2021-04-18 23:01 | disposition home or self-care (01) ==
LOC: EDBD 17:40 → M ED 17:40
DX: K59.00 Constipation, unspecified (principal); E11.9 Type 2 diabetes mellitus without complications; I10 Essential (primary) hypertension; K21.9 Gastro-esophageal reflux disease without esophagitis; G40.909 Epilepsy, unspecified, not intractable, without status epilepticus; E78.5 Hyperlipidemia, unspecified; Z79.82 Long term (current) use of aspirin; Z79.4 Long term (current) use of insulin; Z79.899 Other long term (current) drug therapy; Z91.89 Other specified personal risk factors, not elsewhere classified
CPT/HCPCS: 74021; 80048; 80076; 83036; 83690; 84443; 84484; 85025; 93005; 93041; 94760; 96361; 96374; 99285; J2765

== ENCOUNTER 2021-06-22 18:03 | Emergency (ER) | payer MEDICARE, OTHER ==
[~2021-06-22] VITALS: Ht 152.4 cm; Wt 75.2 kg
[2021-06-22 20:44] LABS: RSV AMPLIFICATION NEGATIVE (NEGATIVE)
[2021-06-22 22:51] LABS: BASO % 0.5 % (0.0-1.0); EOS # 0.3 10^3/uL (0.0-0.5); EOS % 3.6 % (0.0-3.0); HEMATOCRIT 40.5 % (36.0-47.0); HEMOGLOBIN 12.8 g/dl (12.0-15.5); LYMPH % 35.5 % (24.0-44.0); MEAN CORPUSCULAR HEMOGLOBIN 28.7 pg (27.0-33.0); MEAN CORPUSCULAR HGB CONC 31.6 g/dl (32.0-36.5); MEAN CORPUSCULAR VOLUME 90.8 fl (80.0-96.0); MONO # 0.6 10^3/uL (0.0-0.8); MONO % 6.9 % (2.0-8.0); NEUTROPHILS # 4.5 10^3/uL (1.5-8.5); NEUTROPHILS % 53.3 % (36.0-66.0); PLATELET COUNT, AUTOMATED 275 10^3/uL (150-450); RED BLOOD COUNT 4.46 10^6/uL (4.00-5.40); WHITE BLOOD COUNT 8.4 10^3/uL (4.0-10.0)
[2021-06-22 23:24] LABS: ALBUMIN 3.5 GM/DL (3.2-5.2); ALT/SGPT 27 U/L (12-78); BILIRUBIN,DIRECT 0.1 MG/DL (0.0-0.2); BILIRUBIN,TOTAL 0.3 MG/DL (0.2-1.0); BLOOD UREA NITROGEN 16 MG/DL (7-18); CARBON DIOXIDE LEVEL 32 MEQ/L (21-32); CHLORIDE LEVEL 105 MEQ/L (98-107); CREATININE FOR GFR 0.82 MG/DL (0.55-1.30); GLOMERULAR FILTRATION RATE > 60.0 (>39); GLUCOSE, FASTING 90 MG/DL (70-100); POTASSIUM SERUM 3.6 MEQ/L (3.5-5.1); SODIUM LEVEL 142 MEQ/L (136-145); TOTAL PROTEIN 6.3 GM/DL (6.4-8.2)
[2021-06-22 23:44] VITALS: BP 121/74
== END 2021-06-22 23:45 | disposition home or self-care (01) ==
LOC: M ED 18:03
DX: R42 Dizziness and giddiness (principal); R11.0 Nausea; R53.1 Weakness; R05.9 Cough, unspecified; Z20.822 Contact with and (suspected) exposure to COVID-19; E11.9 Type 2 diabetes mellitus without complications; I10 Essential (primary) hypertension; E78.5 Hyperlipidemia, unspecified; R56.9 Unspecified convulsions; K21.9 Gastro-esophageal reflux disease without esophagitis; M54.9 Dorsalgia, unspecified; F41.9 Anxiety disorder, unspecified; F32.A Depression, unspecified; Z79.82 Long term (current) use of aspirin; Z79.899 Other long term (current) drug therapy

== ENCOUNTER 2021-07-16 19:47 | Emergency (ER) | payer OTHER ==
[~2021-07-16] VITALS: Ht 149.9 cm; Wt 74.8 kg
[2021-07-16 21:07] LABS: APPEARANCE, URINE CLEAR (CLEAR); BACTERIA, URINE AUTO NEGATIVE (NEGATIVE); BILIRUBIN, URINE AUTO NEGATIVE (NEGATIVE); BLOOD, URINE BLOOD NEGATIVE (NEGATIVE); COLOR, URINE STRAW (YELLOW); GLUCOSE, URINE (UA) AUTO 3+ mg/dL (NEGATIVE); KETONE, URINE AUTO NEGATIVE (NEGATIVE); LEUKOCYTE ESTERASE, URINE AUTO NEGATIVE (NEGATIVE); MUCUS, URINE SMALL (NEGATIVE); NITRITE, URINE AUTO NEGATIVE (NEGATIVE); PROTEIN, URINE AUTO NEGATIVE (NEGATIVE); RBC, URINE AUTO 2 /HPF (0-3); SPECIFIC GRAVITY URINE AUTO 1.028 (1.002-1.035); SQUAMOUS EPITHELIAL CELL UR AU 0 /HPF (0-6); UROBILINOGEN, URINE AUTO 0.2 mg/dL (0.0-2.0); WBC, URINE AUTO 7 /HPF (0-3)
[2021-07-17 01:11] VITALS: BP 152/67
== END 2021-07-17 02:54 | disposition left against medical advice (07) ==
LOC: M ED 19:47
DX: Z53.21 Procedure and treatment not carried out due to patient leaving prior to being seen by health care provider (principal)

== ENCOUNTER 2021-07-27 19:47 | Emergency (ER) | payer OTHER ==
[~2021-07-27] VITALS: Ht 149.9 cm; Wt 83.2 kg
[2021-07-28 00:29] LABS: BASO % 0.4 % (0.0-1.0); EOS # 0.3 10^3/uL (0.0-0.5); EOS % 3.8 % (0.0-3.0); HEMATOCRIT 44.3 % (36.0-47.0); LYMPH # 2.8 10^3/uL (1.5-5.0); LYMPH % 33.6 % (24.0-44.0); MEAN CORPUSCULAR HEMOGLOBIN 29.2 pg (27.0-33.0); MEAN CORPUSCULAR HGB CONC 31.6 g/dl (32.0-36.5); MEAN CORPUSCULAR VOLUME 92.5 fl (80.0-96.0); MONO # 0.5 10^3/uL (0.0-0.8); MONO % 5.5 % (2.0-8.0); NEUTROPHILS # 4.6 10^3/uL (1.5-8.5); NEUTROPHILS % 56.3 % (36.0-66.0); PLATELET COUNT, AUTOMATED 291 10^3/uL (150-450); RED BLOOD COUNT 4.79 10^6/uL (4.00-5.40); WHITE BLOOD COUNT 8.2 10^3/uL (4.0-10.0)
[2021-07-28 00:43] VITALS: BP 167/72
== END 2021-07-28 00:45 | disposition home or self-care (01) ==
LOC: M ED 19:47
DX: E11.65 Type 2 diabetes mellitus with hyperglycemia (principal); I10 Essential (primary) hypertension; E78.5 Hyperlipidemia, unspecified; K21.9 Gastro-esophageal reflux disease without esophagitis; J45.909 Unspecified asthma, uncomplicated; G40.909 Epilepsy, unspecified, not intractable, without status epilepticus; F41.9 Anxiety disorder, unspecified; F32.9 Major depressive disorder, single episode, unspecified; M54.9 Dorsalgia, unspecified; Z79.4 Long term (current) use of insulin; Z79.82 Long term (current) use of aspirin; Z79.899 Other long term (current) drug therapy; Z91.89 Other specified personal risk factors, not elsewhere classified

== ENCOUNTER 2021-08-06 14:49 | Emergency (ER) | payer OTHER ==
[~2021-08-06] VITALS: Ht 149.9 cm; Wt 85.0 kg
[2021-08-06 15:47] LABS: BASO % 0.4 % (0.0-1.0); EOS # 0.3 10^3/uL (0.0-0.5); EOS % 3.1 % (0.0-3.0); HEMATOCRIT 41.1 % (36.0-47.0); HEMOGLOBIN 13.1 g/dl (12.0-15.5); LYMPH # 1.9 10^3/uL (1.5-5.0); MEAN CORPUSCULAR HEMOGLOBIN 28.7 pg (27.0-33.0); MEAN CORPUSCULAR HGB CONC 31.9 g/dl (32.0-36.5); MEAN CORPUSCULAR VOLUME 89.9 fl (80.0-96.0); MONO # 0.5 10^3/uL (0.0-0.8); MONO % 5.4 % (2.0-8.0); NEUTROPHILS # 6.7 10^3/uL (1.5-8.5); NEUTROPHILS % 70.7 % (36.0-66.0); PLATELET COUNT, AUTOMATED 326 10^3/uL (150-450); RED BLOOD COUNT 4.57 10^6/uL (4.00-5.40); WHITE BLOOD COUNT 9.5 10^3/uL (4.0-10.0)
[2021-08-06 16:20] LABS: ALBUMIN 3.1 GM/DL (3.2-5.2); ALT/SGPT 32 U/L (12-78); BILIRUBIN,DIRECT < 0.1 MG/DL (0.0-0.2); BILIRUBIN,TOTAL 0.2 MG/DL (0.2-1.0); LIPASE 181 U/L (73-393); TOTAL PROTEIN 6.3 GM/DL (6.4-8.2)
[2021-08-06] MEDS ORDERED: ISOVUE-370 76% 100ML VIAL As Ordered ONE (16:24)
[2021-08-06] MEDS ORDERED: SUCR1SS PO (18:13)
[2021-08-06 18:37] VITALS: BP 127/66
== END 2021-08-06 18:44 | disposition home or self-care (01) ==
LOC: M ED 14:49
DX: R10.9 Unspecified abdominal pain (principal); E11.9 Type 2 diabetes mellitus without complications; I10 Essential (primary) hypertension; E78.5 Hyperlipidemia, unspecified; Z79.4 Long term (current) use of insulin; Z79.82 Long term (current) use of aspirin; Z79.84 Long term (current) use of oral hypoglycemic drugs; Z79.899 Other long term (current) drug therapy; Z91.89 Other specified personal risk factors, not elsewhere classified
CPT/HCPCS: 74177; 80047; 80076; 83690; 85025; 93005; 99284; Q9967

== ENCOUNTER → 2021-08-21 | Outpatient (CLI) | payer OTHER ==
[~2021-08-21] MED LIST changes: +SUCR1SS PO
== END ==
LOC: M WHC 12:07
PROVIDERS: ATTEND Internal Medicine
DX: Z12.31 Encounter for screening mammogram for malignant neoplasm of breast (principal); Z80.3 Family history of malignant neoplasm of breast

== ENCOUNTER → 2021-09-29 | Outpatient (CLI) | payer OTHER ==
[~2021-09-29] MED LIST changes: +INDA1.253; +INDA1.253 PO; -INDA125TA; -INDA125TA PO
[2021-09-29 22:38] LABS: ALBUMIN 3.7 GM/DL (3.2-5.2); BILIRUBIN,TOTAL 0.2 MG/DL (0.2-1.0); CALCIUM LEVEL 9.8 MG/DL (8.8-10.2); CHOLESTEROL RISK RATIO 2.521 (<5); CREATININE FOR GFR 1.09 MG/DL (0.55-1.30); GLOMERULAR FILTRATION RATE 52.7 (>39); POTASSIUM SERUM 4.2 MEQ/L (3.5-5.1); TOTAL PROTEIN 7.1 GM/DL (6.4-8.2)
[2021-09-30 00:34] LABS: HEMOGLOBIN A1c 9.8 %
== END ==
LOC: M WUC 14:54
PROVIDERS: ATTEND Internal Medicine
DX: E11.649 Type 2 diabetes mellitus with hypoglycemia without coma (principal); E78.5 Hyperlipidemia, unspecified; I10 Essential (primary) hypertension

== ENCOUNTER 2021-11-09 12:33 | Emergency (ER) | payer MEDICARE ==
[~2021-11-09] VITALS: Ht 149.9 cm; Wt 75.9 kg
[2021-11-09] MEDS ORDERED: TRUL0.5I (12:41)
[2021-11-09] MEDS ORDERED: ONDANSETRON 4MG 2ML VIAL IV ONE (13:00)
[2021-11-09 13:28] LABS: BASO # 0.1 10^3/uL (0.0-0.2); BASO % 0.6 % (0.0-1.0); EOS # 0.2 10^3/uL (0.0-0.5); EOS % 1.8 % (0.0-3.0); HEMOGLOBIN 13.6 g/dl (12.0-15.5); LYMPH # 2.4 10^3/uL (1.5-5.0); LYMPH % 26.6 % (24.0-44.0); MEAN CORPUSCULAR HEMOGLOBIN 27.4 pg (27.0-33.0); MEAN CORPUSCULAR HGB CONC 30.9 g/dl (32.0-36.5); MEAN CORPUSCULAR VOLUME 88.5 fl (80.0-96.0); MONO # 0.5 10^3/uL (0.0-0.8); NEUTROPHILS # 5.7 10^3/uL (1.5-8.5); NEUTROPHILS % 64.7 % (36.0-66.0); PLATELET COUNT, AUTOMATED 282 10^3/uL (150-450); RED BLOOD COUNT 4.97 10^6/uL (4.00-5.40); WHITE BLOOD COUNT 8.9 10^3/uL (4.0-10.0)
[2021-11-09 13:39] LABS: INR 0.95; PROTHROMBIN TIME 13.1 SECONDS (12.7-14.5)
[2021-11-09 13:40] LABS: PARTIAL THROMBOPLASTIN TIME 28.6 SECONDS (25.9-37.0)
[2021-11-09 14:20] LABS: ALBUMIN 3.3 GM/DL (3.2-5.2); ALT/SGPT 18 U/L (12-78); BILIRUBIN,DIRECT < 0.1 MG/DL (0.0-0.2); BILIRUBIN,TOTAL 0.4 MG/DL (0.2-1.0); BLOOD UREA NITROGEN 18 MG/DL (7-18); CARBON DIOXIDE LEVEL 29 MEQ/L (21-32); CHLORIDE LEVEL 105 MEQ/L (98-107); CREATININE FOR GFR 0.77 MG/DL (0.55-1.30); GLOMERULAR FILTRATION RATE > 60.0 (>39); GLUCOSE, FASTING 172 MG/DL (70-100); LIPASE 228 U/L (73-393); POTASSIUM SERUM 4.3 MEQ/L (3.5-5.1); SODIUM LEVEL 139 MEQ/L (136-145); TOTAL PROTEIN 6.4 GM/DL (6.4-8.2)
[2021-11-09] MEDS ORDERED: ISOVUE-370 76% 100ML VIAL As Ordered ONE (14:26)
[2021-11-09] MEDS ORDERED: ONDA4TAB6 PO (15:26)
[2021-11-09 15:30] VITALS: BP 168/71
== END 2021-11-09 15:41 | disposition home or self-care (01) ==
LOC: M ED 12:33
DX: K92.0 Hematemesis (principal); K76.0 Fatty (change of) liver, not elsewhere classified; E11.9 Type 2 diabetes mellitus without complications; I10 Essential (primary) hypertension; E78.5 Hyperlipidemia, unspecified; Z79.82 Long term (current) use of aspirin; Z79.4 Long term (current) use of insulin; Z79.899 Other long term (current) drug therapy; Z91.89 Other specified personal risk factors, not elsewhere classified
CPT/HCPCS: 74177; 80048; 80076; 83690; 85025; 85610; 85730; 86850; 86900; 86901; 93041; 96374; 99284; J2405; Q9967

== ENCOUNTER → 2021-11-24 | Outpatient (CLI) | payer MEDICARE ==
[~2021-11-24] MED LIST changes: +ONDA4TAB6 PO; +TRUL0.5I
[2021-11-24 17:14] LABS: HEMOGLOBIN 14.7 g/dl (12.0-15.5); MEAN CORPUSCULAR HEMOGLOBIN 28.1 pg (27.0-33.0); MEAN CORPUSCULAR VOLUME 87.8 fl (80.0-96.0); PLATELET COUNT, AUTOMATED 350 10^3/uL (150-450); RED BLOOD COUNT 5.24 10^6/uL (4.00-5.40); WHITE BLOOD COUNT 7.9 10^3/uL (4.0-10.0)
== END ==
LOC: M WUC 13:26
PROVIDERS: ATTEND Internal Medicine
DX: K92.0 Hematemesis (principal)

== ENCOUNTER 2021-12-02 17:31 | Emergency (ER) | payer MEDICARE ==
[~2021-12-02] VITALS: Ht 149.9 cm; Wt 75.5 kg
[2021-12-02 18:41] LABS: BASO % 0.3 % (0.0-1.0); EOS # 0.1 10^3/uL (0.0-0.5); EOS % 1.1 % (0.0-3.0); HEMATOCRIT 42.7 % (36.0-47.0); HEMOGLOBIN 13.7 g/dl (12.0-15.5); LYMPH # 2.2 10^3/uL (1.5-5.0); LYMPH % 24.5 % (24.0-44.0); MEAN CORPUSCULAR HEMOGLOBIN 27.8 pg (27.0-33.0); MEAN CORPUSCULAR HGB CONC 32.1 g/dl (32.0-36.5); MEAN CORPUSCULAR VOLUME 86.6 fl (80.0-96.0); MONO # 0.4 10^3/uL (0.0-0.8); MONO % 4.5 % (2.0-8.0); NEUTROPHILS # 6.2 10^3/uL (1.5-8.5); NEUTROPHILS % 69.3 % (36.0-66.0); PLATELET COUNT, AUTOMATED 255 10^3/uL (150-450); RED BLOOD COUNT 4.93 10^6/uL (4.00-5.40); WHITE BLOOD COUNT 8.9 10^3/uL (4.0-10.0)
[2021-12-02] MEDS ORDERED: ISOVUE-370 76% 100ML VIAL As Ordered ONE (19:09)
[2021-12-02 19:16] LABS: ALBUMIN 3.6 GM/DL (3.2-5.2); ALT/SGPT 29 U/L (12-78); BILIRUBIN,DIRECT < 0.1 MG/DL (0.0-0.2); BILIRUBIN,TOTAL 0.2 MG/DL (0.2-1.0); LIPASE 298 U/L (73-393); TOTAL PROTEIN 6.7 GM/DL (6.4-8.2)
[2021-12-02] MEDS ORDERED: NS 1,000 ML IV ONE (20:25)
[2021-12-02] MEDS ORDERED: KETOROLAC 30 MG/ML 1ML VIAL IV ONE (21:35)
[2021-12-02 22:04] VITALS: BP 116/58
== END 2021-12-02 22:44 | disposition home or self-care (01) ==
LOC: M ED 17:31 → EDBD 17:31 → M ED 22:44
DX: R10.9 Unspecified abdominal pain (principal); I25.119 Atherosclerotic heart disease of native coronary artery with unspecified angina pectoris; K44.9 Diaphragmatic hernia without obstruction or gangrene; E11.9 Type 2 diabetes mellitus without complications; I10 Essential (primary) hypertension; J45.909 Unspecified asthma, uncomplicated; Z91.09 Other allergy status, other than to drugs and biological substances
CPT/HCPCS: 74177; 80047; 80076; 81002; 83690; 85025; 93005; 96361; 96374; 99284; J1885; Q9967

== ENCOUNTER 2021-12-12 17:16 | Emergency (ER) | payer MEDICARE ==
[~2021-12-12] VITALS: Ht 149.9 cm; Wt 75.5 kg
[2021-12-12 18:10] LABS: BASO % 0.5 % (0.0-1.0); EOS # 0.2 10^3/uL (0.0-0.5); EOS % 2.1 % (0.0-3.0); HEMATOCRIT 42.9 % (36.0-47.0); HEMOGLOBIN 13.8 g/dl (12.0-15.5); LYMPH # 2.5 10^3/uL (1.5-5.0); LYMPH % 32.8 % (24.0-44.0); MEAN CORPUSCULAR HGB CONC 32.2 g/dl (32.0-36.5); MEAN CORPUSCULAR VOLUME 87.2 fl (80.0-96.0); MONO # 0.4 10^3/uL (0.0-0.8); MONO % 5.5 % (2.0-8.0); NEUTROPHILS # 4.5 10^3/uL (1.5-8.5); NEUTROPHILS % 58.8 % (36.0-66.0); PLATELET COUNT, AUTOMATED 293 10^3/uL (150-450); RED BLOOD COUNT 4.92 10^6/uL (4.00-5.40); WHITE BLOOD COUNT 7.6 10^3/uL (4.0-10.0)
[2021-12-12] MEDS ORDERED: MAGN400T33 PO (18:28)
[2021-12-12 19:03] LABS: ALBUMIN 3.7 GM/DL (3.2-5.2); ALT/SGPT 19 U/L (12-78); BILIRUBIN,DIRECT < 0.1 MG/DL (0.0-0.2); BILIRUBIN,TOTAL 0.4 MG/DL (0.2-1.0); BLOOD UREA NITROGEN 23 MG/DL (7-18); CALCIUM LEVEL 9.5 MG/DL (8.8-10.2); CARBON DIOXIDE LEVEL 29 MEQ/L (21-32); CHLORIDE LEVEL 98 MEQ/L (98-107); GLOMERULAR FILTRATION RATE > 60.0 (>39); GLUCOSE, FASTING 314 MG/DL (70-100); LIPASE 366 U/L (73-393); POTASSIUM SERUM 3.6 MEQ/L (3.5-5.1); SODIUM LEVEL 134 MEQ/L (136-145); TOTAL PROTEIN 6.8 GM/DL (6.4-8.2)
[2021-12-12] MEDS ORDERED: ISOVUE-370 76% 100ML VIAL As Ordered ONE (19:14)
[2021-12-12] MEDS ORDERED: MAGNESIUM CITRATE 300 ML BTL PO ONE (21:00)
[2021-12-12 21:03] VITALS: BP 137/61
== END 2021-12-12 21:22 | disposition home or self-care (01) ==
LOC: M ED 17:16
DX: K59.00 Constipation, unspecified (principal); R93.2 Abnormal findings on diagnostic imaging of liver and biliary tract; E11.9 Type 2 diabetes mellitus without complications; I10 Essential (primary) hypertension; E78.5 Hyperlipidemia, unspecified; J45.909 Unspecified asthma, uncomplicated; K21.9 Gastro-esophageal reflux disease without esophagitis; Z79.82 Long term (current) use of aspirin; Z79.4 Long term (current) use of insulin; Z79.899 Other long term (current) drug therapy; Z91.89 Other specified personal risk factors, not elsewhere classified
CPT/HCPCS: 74177; 80048; 80076; 83690; 85025; 93005; 93041; 99284; Q9967

== ENCOUNTER 2022-01-22 19:27 | Emergency (ER) | payer MEDICARE ==
[~2022-01-22] VITALS: Ht 149.9 cm; Wt 75.0 kg
[~2022-01-22 19:27] MED LIST changes: +ASPI-226 PO; +MAGN400T33 PO; +POTA10CA32 PO
[2022-01-22 20:29] LABS: BASO % 0.4 % (0.0-1.0); EOS # 0.1 10^3/uL (0.0-0.5); EOS % 1.3 % (0.0-3.0); HEMATOCRIT 40.6 % (36.0-47.0); LYMPH % 28.4 % (24.0-44.0); MEAN CORPUSCULAR HEMOGLOBIN 28.6 pg (27.0-33.0); MEAN CORPUSCULAR VOLUME 89.2 fl (80.0-96.0); MONO # 0.5 10^3/uL (0.0-0.8); NEUTROPHILS # 4.5 10^3/uL (1.5-8.5); NEUTROPHILS % 62.5 % (36.0-66.0); PLATELET COUNT, AUTOMATED 254 10^3/uL (150-450); RED BLOOD COUNT 4.55 10^6/uL (4.00-5.40); WHITE BLOOD COUNT 7.2 10^3/uL (4.0-10.0)
[2022-01-22 20:56] LABS: BILIRUBIN,DIRECT < 0.1 MG/DL (<0.4)
[2022-01-22 21:13] LABS: ALBUMIN 3.5 G/DL (3.2-5.2); ALKALINE PHOSPHATASE 123 U/L (46-116); ALT/SGPT 22 U/L (7.0-40); AST/SGOT 16 U/L (<34); BILIRUBIN,TOTAL 0.2 MG/DL (0.3-1.2); BLOOD UREA NITROGEN 23 MG/DL (9-23); CALCIUM LEVEL 8.5 MG/DL (8.3-10.6); CARBON DIOXIDE LEVEL 24 MMOL/L (20-31); CHLORIDE LEVEL 100 MMOL/L (98-107); CREATININE FOR GFR 0.81 MG/DL (0.55-1.30); GLOMERULAR FILTRATION RATE > 60.0 (>39); GLUCOSE, FASTING 466 MG/DL (74-106); POTASSIUM SERUM 3.7 MMOL/L (3.5-5.1); SODIUM LEVEL 135 MMOL/L (136-145); TOTAL PROTEIN 5.8 G/DL (5.7-8.2)
[2022-01-22] MEDS ORDERED: HumuLIN R (REGULAR) INSULIN (NovoLIN R) **100U/ML** PER UNIT IV ONE (21:50)
[2022-01-23 00:25] VITALS: BP 123/67
== END 2022-01-23 01:06 | disposition home or self-care (01) ==
LOC: M ED 19:27
DX: E11.65 Type 2 diabetes mellitus with hyperglycemia (principal); E78.5 Hyperlipidemia, unspecified; F41.9 Anxiety disorder, unspecified; F32.9 Major depressive disorder, single episode, unspecified; Z79.82 Long term (current) use of aspirin; Z79.4 Long term (current) use of insulin; Z79.899 Other long term (current) drug therapy; Z91.89 Other specified personal risk factors, not elsewhere classified
CPT/HCPCS: 80048; 80076; 85025; 93005; 93041; 94760; 99285; J1815

== ENCOUNTER → 2022-02-08 | Outpatient (CLI) | payer MEDICARE ==
[~2022-02-08] MED LIST changes: -AMLO1TAB24; -DULO1CAP6; -INDA1.253; -LISI5TAB11; -POTA10CA32; -POTA10CA32 PO; +POTA10CA33; +POTA10CA33 PO; -TRUL0.5I
== END ==
LOC: M LABSMTC 11:38
PROVIDERS: ATTEND Anesthesiology
DX: Z01.812 Encounter for preprocedural laboratory examination (principal); Z20.822 Contact with and (suspected) exposure to COVID-19

== ENCOUNTER 2022-02-13 08:51 | Day surgery (SDC) | payer MEDICARE ==
[~2022-02-13] VITALS: Ht 149.9 cm; Wt 70.5 kg
[~2022-02-13 08:51] MED LIST changes: +NS 1,000 ML IV ONE
[2022-02-13] MEDS ORDERED: LIDOCAINE 2% 100MG/5ML SDV (FOR ANES.) As Ordered ONE (11:16)
[2022-02-13] MEDS ORDERED: propofoL 200 MG/20 ML VIAL As Ordered ONE (11:16)
[2022-02-13 11:20] VITALS: BP 152/70
[2022-02-18] MEDS ORDERED: DULE100A IN (11:00)
[2022-02-18] MEDS ORDERED: DICY20TA20 PO (11:00)
[2022-02-18] MEDS ORDERED: DOK100TA2 PO (11:00)
[2022-02-18] MEDS ORDERED: COMBAER6 INH (11:00)
[2022-04-13] MEDS ORDERED: APAP325T4 PO (12:47)
== END 2022-02-13 11:27 | disposition home or self-care (01) ==
LOC: M OPP 08:51
PROVIDERS: ATTEND Surgery
DX: R10.84 Generalized abdominal pain (principal); Z53.8 Procedure and treatment not carried out for other reasons; K44.9 Diaphragmatic hernia without obstruction or gangrene; K29.60 Other gastritis without bleeding; Z79.02 Long term (current) use of antithrombotics/antiplatelets; Z79.4 Long term (current) use of insulin; Z79.82 Long term (current) use of aspirin; Z79.899 Other long term (current) drug therapy; Z91.048 Other nonmedicinal substance allergy status; I10 Essential (primary) hypertension; E78.00 Pure hypercholesterolemia, unspecified; E11.9 Type 2 diabetes mellitus without complications; F32.9 Major depressive disorder, single episode, unspecified; F41.9 Anxiety disorder, unspecified; J45.909 Unspecified asthma, uncomplicated; Z85.42 Personal history of malignant neoplasm of other parts of uterus; Z90.49 Acquired absence of other specified parts of digestive tract

== ENCOUNTER → 2022-04-13 | Outpatient (CLI) | payer MEDICARE ==
[~2022-04-13] MED LIST changes: +APAP325T4 PO; +DICY20TA20 PO; +DOK100TA2 PO; +DULE100A IN; -NS 1,000 ML IV ONE
== END ==
LOC: M LABSMTC 11:57
PROVIDERS: ATTEND Anesthesiology
DX: Z01.812 Encounter for preprocedural laboratory examination (principal); Z11.52 Encounter for screening for COVID-19

== ENCOUNTER → 2022-04-27 | Outpatient (CLI) | payer MEDICARE ==
[~2022-04-27] MED LIST changes: -DULE100A IN; -DULE100A INH; +INSU100I6; +INSU100I6 SC; -LEVE1INJ5; -LEVE1INJ5 SC; +MAGN400T35 PO; +MOME13HF8 IN; +MOME13HF8 INH
== END ==
LOC: M LABSMTC 09:57
PROVIDERS: ATTEND Anesthesiology
DX: Z01.812 Encounter for preprocedural laboratory examination (principal)

== ENCOUNTER 2022-05-01 06:54 | Day surgery (SDC) | payer MEDICARE ==
[~2022-05-01] VITALS: Ht 149.9 cm; Wt 75.0 kg
[~2022-05-01 06:54] MED LIST changes: +NS 1,000 ML IV ONE
[2022-05-01] MEDS ORDERED: propofoL 500 MG/50 ML VIAL As Ordered ONE (07:40)
[2022-05-01] MEDS ORDERED: LIDOCAINE 2% 100MG/5ML SDV (FOR ANES.) As Ordered ONE (07:40)
[2022-05-01 08:25] VITALS: BP 151/70
== END 2022-05-01 08:56 | disposition home or self-care (01) ==
LOC: M OPP 06:54
PROVIDERS: ATTEND Surgery
DX: Z12.11 Encounter for screening for malignant neoplasm of colon (principal); E11.9 Type 2 diabetes mellitus without complications; J45.909 Unspecified asthma, uncomplicated; E78.00 Pure hypercholesterolemia, unspecified; I10 Essential (primary) hypertension; G40.89 Other seizures; Z79.02 Long term (current) use of antithrombotics/antiplatelets; Z79.4 Long term (current) use of insulin; Z79.51 Long term (current) use of inhaled steroids; Z79.82 Long term (current) use of aspirin; Z79.899 Other long term (current) drug therapy; Z91.048 Other nonmedicinal substance allergy status; Z85.42 Personal history of malignant neoplasm of other parts of uterus; Z85.72 Personal history of non-Hodgkin lymphomas; Z87.891 Personal history of nicotine dependence; Z90.49 Acquired absence of other specified parts of digestive tract; Z80.3 Family history of malignant neoplasm of breast; Z53.8 Procedure and treatment not carried out for other reasons

== ENCOUNTER 2022-08-10 12:59 | Emergency (ER) | payer MEDICARE ==
[~2022-08-10 12:59] MED LIST changes: -NS 1,000 ML IV ONE; -POTA10CA33; -POTA10CA33 PO; +POTA10CA60; +POTA10CA60 PO
[2022-08-10 14:14] LABS: BASO % 0.5 % (0.0-1.0); EOS # 0.1 10^3/uL (0.0-0.5); EOS % 1.6 % (0.0-3.0); HEMATOCRIT 45.6 % (36.0-47.0); HEMOGLOBIN 14.3 g/dl (12.0-15.5); LYMPH # 2.4 10^3/uL (1.5-5.0); LYMPH % 29.4 % (24.0-44.0); MEAN CORPUSCULAR HEMOGLOBIN 28.3 pg (27.0-33.0); MEAN CORPUSCULAR HGB CONC 31.4 g/dl (32.0-36.5); MEAN CORPUSCULAR VOLUME 90.1 fl (80.0-96.0); MONO # 0.4 10^3/uL (0.0-0.8); MONO % 5.2 % (2.0-8.0); NEUTROPHILS # 5.2 10^3/uL (1.5-8.5); NEUTROPHILS % 63.1 % (36.0-66.0); PLATELET COUNT, AUTOMATED 312 10^3/uL (150-450); RED BLOOD COUNT 5.06 10^6/uL (4.00-5.40); WHITE BLOOD COUNT 8.2 10^3/uL (4.0-10.0)
[2022-08-10 14:25] LABS: INR 0.89; PROTHROMBIN TIME 12.2 SECONDS (12.5-14.5)
[2022-08-10 14:35] LABS: LIPASE 81 U/L (12-53)
[2022-08-10 14:37] LABS: CPK CREATINE PHOSPHOKINASE 43 U/L (34-145)
[2022-08-10 14:38] LABS: ALBUMIN 3.7 G/DL (3.2-5.2); ALKALINE PHOSPHATASE 123 U/L (46-116); ALT/SGPT 21 U/L (7.0-40); AST/SGOT 11 U/L (<34); BILIRUBIN,DIRECT < 0.1 MG/DL (<0.4); BILIRUBIN,TOTAL 0.3 MG/DL (0.3-1.2); BLOOD UREA NITROGEN 20 MG/DL (9-23); CARBON DIOXIDE LEVEL 25 MMOL/L (20-31); CHLORIDE LEVEL 105 MMOL/L (98-107); CK-MB VALUE MASS < 1.0 NG/ML (<3.6); CREATININE FOR GFR 0.82 MG/DL (0.55-1.30); GLOMERULAR FILTRATION RATE > 60.0 (>39); GLUCOSE, FASTING 214 MG/DL (74-106); MB/CK RELATIVE INDEX 2.32 (< OR =4); POTASSIUM SERUM 4.2 MMOL/L (3.5-5.1); SODIUM LEVEL 138 MMOL/L (136-145); TOTAL PROTEIN 6.6 G/DL (5.7-8.2)
[2022-08-10] MEDS ORDERED: NS 1,000 ML IV ONE (15:45)
[2022-08-10] MEDS ORDERED: PANTOPRAZOLE 40MG VIAL IV ONE (15:45)
[2022-08-10] MEDS ORDERED: ISOVUE-370 76% 100ML VIAL As Ordered ONE (16:06)
[2022-08-10 18:07] LABS: BASO % 0.5 % (0.0-1.0); EOS # 0.2 10^3/uL (0.0-0.5); EOS % 1.8 % (0.0-3.0); LYMPH # 3.4 10^3/uL (1.5-5.0); LYMPH % 40.5 % (24.0-44.0); MEAN CORPUSCULAR HEMOGLOBIN 28.7 pg (27.0-33.0); MEAN CORPUSCULAR HGB CONC 31.7 g/dl (32.0-36.5); MEAN CORPUSCULAR VOLUME 90.5 fl (80.0-96.0); MONO # 0.5 10^3/uL (0.0-0.8); MONO % 6.4 % (2.0-8.0); NEUTROPHILS # 4.2 10^3/uL (1.5-8.5); NEUTROPHILS % 50.4 % (36.0-66.0); PLATELET COUNT, AUTOMATED 289 10^3/uL (150-450); RED BLOOD COUNT 4.53 10^6/uL (4.00-5.40); WHITE BLOOD COUNT 8.4 10^3/uL (4.0-10.0)
[2022-08-10] MEDS ORDERED: RA M1.74 PO (18:22)
[2022-08-10] MEDS ORDERED: COLA100C5 PO (18:22)
[2022-08-10] MEDS ORDERED: MIRA3350 PO (18:22)
[2022-08-10 18:28] VITALS: BP 140/65; TEMP 97.2; O2SAT 98
[2022-08-13] MEDS ORDERED: INSU100I48 SQ (11:33)
== END 2022-08-10 19:08 | disposition home or self-care (01) ==
LOC: M ED 12:59
DX: K92.1 Melena (principal); K59.00 Constipation, unspecified; E11.9 Type 2 diabetes mellitus without complications; E78.5 Hyperlipidemia, unspecified; I10 Essential (primary) hypertension; R56.9 Unspecified convulsions; J45.909 Unspecified asthma, uncomplicated; K21.9 Gastro-esophageal reflux disease without esophagitis; F41.9 Anxiety disorder, unspecified; F32.A Depression, unspecified; Z87.891 Personal history of nicotine dependence; Z80.0 Family history of malignant neoplasm of digestive organs; Z79.4 Long term (current) use of insulin; Z79.82 Long term (current) use of aspirin; Z79.899 Other long term (current) drug therapy; Z91.89 Other specified personal risk factors, not elsewhere classified
CPT/HCPCS: 74177; 80048; 80076; 82550; 82553; 83605; 83690; 84484; 85025; 85610; 86850; 86900; 86901; 93005; 96374; 99284; C9113; Q9967

== ENCOUNTER 2022-08-19 09:02 | Day surgery (SDC) | payer MEDICARE ==
[~2022-08-19] VITALS: Ht 149.9 cm; Wt 73.3 kg
[~2022-08-19 09:02] MED LIST changes: +COLA100C5 PO; +INSU100I48 SQ; +NS 1,000 ML IV ONE; +RA M1.74 PO
[2022-08-19 11:30] VITALS: TEMP 96.4
[2022-08-19 11:55] VITALS: BP 177/72; O2SAT 100
== END 2022-08-19 12:17 | disposition home or self-care (01) ==
LOC: M OPP 09:02
PROVIDERS: ATTEND Surgery
DX: Z12.11 Encounter for screening for malignant neoplasm of colon (principal); Z87.891 Personal history of nicotine dependence; Z79.02 Long term (current) use of antithrombotics/antiplatelets; Z79.1 Long term (current) use of non-steroidal anti-inflammatories (NSAID); Z79.52 Long term (current) use of systemic steroids; Z79.82 Long term (current) use of aspirin; Z79.4 Long term (current) use of insulin; Z79.899 Other long term (current) drug therapy; Z91.048 Other nonmedicinal substance allergy status

== ENCOUNTER 2022-11-04 20:02 | Observation (INO) | payer MEDICARE ==
[~2022-11-04] VITALS: Ht 149.9 cm; Wt 73.4 kg
[~2022-11-04 20:02] MED LIST changes: +INSU100I48 SC; -INSU100I48 SQ; -MOME13HF8 IN; -NS 1,000 ML IV ONE
[2022-11-04 22:36] LABS: VENOUS BASE EXCESS 0.6 (-2.0-2.0); VENOUS HCO3 25.9 MMOL/L (23.0-27.0); VENOUS O2 SATURATION 97.3 % (60.0-80.0); VENOUS PARTIAL PRESSURE CO2 43.8 mmHg (38.0-50.0); VENOUS PARTIAL PRESSURE O2 128.9 mmHg (30.0-50.0); VENOUS PH 7.389 UNITS (7.330-7.430); VENOUS TOTAL CO2 27.2 MMOL/L (24.0-28.0)
[2022-11-04 22:40] LABS: BASO # 0.1 10^3/uL (0.0-0.2); BASO % 0.6 % (0.0-1.0); EOS # 0.1 10^3/uL (0.0-0.5); EOS % 1.8 % (0.0-3.0); HEMATOCRIT 42.4 % (36.0-47.0); LYMPH # 2.3 10^3/uL (1.5-5.0); LYMPH % 29.3 % (24.0-44.0); MEAN CORPUSCULAR HEMOGLOBIN 28.3 pg (27.0-33.0); MEAN CORPUSCULAR HGB CONC 30.7 g/dl (32.0-36.5); MEAN CORPUSCULAR VOLUME 92.2 fl (80.0-96.0); MONO # 0.5 10^3/uL (0.0-0.8); MONO % 6.3 % (2.0-8.0); NEUTROPHILS # 4.8 10^3/uL (1.5-8.5); NEUTROPHILS % 61.9 % (36.0-66.0); PLATELET COUNT, AUTOMATED 261 10^3/uL (150-450); WHITE BLOOD COUNT 7.8 10^3/uL (4.0-10.0)
[2022-11-04 23:02] LABS: HEMOGLOBIN A1c 10.6 % (4.0-6.0)
[2022-11-04 23:03] LABS: LIPASE 44 U/L (12-53)
[2022-11-04 23:06] LABS: ALBUMIN 3.4 G/DL (3.2-5.2); ALKALINE PHOSPHATASE 110 U/L (46-116); ALT/SGPT 24 U/L (7.0-40); AST/SGOT 13 U/L (<34); BILIRUBIN,DIRECT < 0.1 MG/DL (<0.4); BILIRUBIN,TOTAL 0.2 MG/DL (0.3-1.2); BLOOD UREA NITROGEN 22 MG/DL (9-23); CALCIUM LEVEL 8.7 MG/DL (8.3-10.6); CARBON DIOXIDE LEVEL 27 MMOL/L (20-31); CHLORIDE LEVEL 105 MMOL/L (98-107); CREATININE FOR GFR 0.74 MG/DL (0.55-1.30); GLOMERULAR FILTRATION RATE > 60.0 (>39); GLUCOSE, FASTING 211 MG/DL (74-106); SODIUM LEVEL 141 MMOL/L (136-145); TOTAL PROTEIN 6.1 G/DL (5.7-8.2)
[2022-11-05 01:43] LABS: OSMOLALITY SERUM 296 MOSM/KG (280-301)
[2022-11-05] MEDS ORDERED: D5W/0.45% SODIUM CHLORIDE 1,000 ML IV SCH (03:10)
[2022-11-05] MEDS ORDERED: MOM 30ML SUSPENSION UDC PO PRN (04:45)
[2022-11-05] MEDS ORDERED: MAALOX 30 ML SUSP *UDC PO PRN (04:45)
[2022-11-05] MEDS ORDERED: DEXTROSE 50% 50ML SYRINGE IV PRN (04:45)
[2022-11-05] MEDS ORDERED: GLUCOSE 4GM CHEW TABLET PO PRN (04:45)
[2022-11-05] MEDS ORDERED: ACETAMINOPHEN TAB 650MG DOSE (2X325MG) PO PRN (04:45)
[2022-11-05] MEDS ORDERED: GLUCAGON INJ 1MG VIAL SC PRN (04:45)
[2022-11-05] MEDS ORDERED: AMLO1TAB24 PO (05:47)
[2022-11-05] MEDS ORDERED: PANT40TA29 PO (05:47)
[2022-11-05] MEDS ORDERED: DOCU100C16 PO (05:47)
[2022-11-05] MEDS ORDERED: DICY20TA20 PO (05:47)
[2022-11-05] MEDS ORDERED: LISI5TAB11 PO (05:47)
[2022-11-05] MEDS ORDERED: INDA1.253 PO (05:47)
[2022-11-05] MEDS ORDERED: HOME MED LIST COMPLETE! XX SCH (05:50)
[2022-11-05] MEDS: INSULIN LISPRO (NovoLOG) PER UNIT SC SCH ×3 (07:44→17:29)
[2022-11-05] MEDS: LEVEMIR (INSULIN DETEMIR) 1 UNITS/0.01ML SC SCH (09:57)
[2022-11-05 13:00] VITALS: BP 156/69; TEMP 97.1; O2SAT 97
[2022-11-05] MEDS: HEPARIN SOD (PORCINE) 5000UNITS/ML 1ML VIAL/SYRINGE SC SCH ×2 (13:17→22:15)
[2022-11-05 20:00] VITALS: BP 113/59; TEMP 97.8; O2SAT 97
[2022-11-05] MEDS ORDERED: INSULIN LISPRO (NovoLOG) PER UNIT SC SCH (21:00)
[2022-11-06] MEDS ORDERED: DICYCLOMINE 10 MG CAP PO PRN (02:45)
[2022-11-06] MEDS ORDERED: COMBIVENT RESPIMAT 100-20MCG INHALER 4GM INH PRN (02:45)
[2022-11-06 04:45] VITALS: BP 138/78; TEMP 97; O2SAT 97
[2022-11-06] MEDS: HEPARIN SOD (PORCINE) 5000UNITS/ML 1ML VIAL/SYRINGE SC SCH (06:20)
[2022-11-06] MEDS: INSULIN LISPRO (NovoLOG) PER UNIT SC SCH ×2 (08:46→11:36)
[2022-11-06] MEDS: LEVEMIR (INSULIN DETEMIR) 1 UNITS/0.01ML SC SCH (08:46)
[2022-11-06 08:49] VITALS: BP 138/70
[2022-11-06] MEDS ORDERED: PANTOPRAZOLE 40MG TAB (PROTONIX) PO SCH (09:00)
[2022-11-06] MEDS ORDERED: SIMVASTATIN 40 MG TAB PO SCH (09:00)
[2022-11-06] MEDS ORDERED: MAGNESIUM OXIDE 400MG TAB (MAG-OX) PO SCH (09:00)
[2022-11-06] MEDS ORDERED: lisinopriL 5 MG TAB PO SCH (09:00)
[2022-11-06] MEDS ORDERED: ROSUVASTATIN 10 MG TAB (CRESTOR) PO SCH (09:00)
[2022-11-06] MEDS ORDERED: amLODIPine 5 MG TAB PO SCH (09:00)
[2022-11-06] MEDS ORDERED: POTASSIUM CHLORIDE 10MEQ SR TABLET PO SCH (09:00)
[2022-11-06] MEDS ORDERED: INDAPAMIDE 1.25MG TABLET PO SCH (09:00)
[2022-11-06] MEDS ORDERED: ASPIRIN 81MG ENTERIC TABLET PO SCH (09:00)
[2022-11-06] MEDS ORDERED: DULoxetine 30MG CAPSULE (CYMBALTA) PO SCH (09:00)
[2022-11-06] MEDS ORDERED: DOCUSATE SODIUM 100MG CAPSULE PO SCH (09:00)
[2022-11-06 09:14] LABS: BLOOD UREA NITROGEN 21 MG/DL (9-23); CALCIUM LEVEL 8.6 MG/DL (8.3-10.6); CARBON DIOXIDE LEVEL 29 MMOL/L (20-31); CHLORIDE LEVEL 108 MMOL/L (98-107); CREATININE FOR GFR 0.71 MG/DL (0.55-1.30); GLOMERULAR FILTRATION RATE > 60.0 (>39); GLUCOSE, FASTING 154 MG/DL (74-106); POTASSIUM SERUM 4.3 MMOL/L (3.5-5.1); SODIUM LEVEL 143 MMOL/L (136-145)
[2022-11-06] MEDS ORDERED: INSUDET SC (10:39)
[2022-11-07 19:09] LABS: ACETONE/KETONE 0.12 MMOL/L (0.02-0.27)
== END 2022-11-06 12:50 | disposition home or self-care (01) ==
LOC: M ED 20:02 → INTOOBSV 11-05 06:17 → M ED INP 11-05 06:17 → ENRESERV 11-05 11:47 → M MS4PR 11-05 12:55
PROVIDERS: ADMIT Internal Medicine; ATTEND Student in an Organized Health Care Education/Training Program
DX: E16.2 Hypoglycemia, unspecified (principal); I10 Essential (primary) hypertension; E11.9 Type 2 diabetes mellitus without complications; J45.998 Other asthma; E78.5 Hyperlipidemia, unspecified; Z79.82 Long term (current) use of aspirin; Z79.899 Other long term (current) drug therapy; Z79.4 Long term (current) use of insulin; L89.819 Pressure ulcer of head, unspecified stage
CPT/HCPCS: 36415; 71045; 80048; 80076; 82010; 82803; 83036; 83690; 83930; 85025; 87635; 93005; 96360; 96361; 96372; 99285; G0378; J1815

== ENCOUNTER 2023-01-12 14:22 | Emergency (ER) | payer MEDICARE ==
[~2023-01-12] VITALS: Ht 149.9 cm; Wt 72.7 kg
[~2023-01-12 14:22] MED LIST changes: +DOCU100C16 PO
[2023-01-12 15:18] LABS: BASO % 0.5 % (0.0-1.0); EOS # 0.1 10^3/uL (0.0-0.5); EOS % 1.7 % (0.0-3.0); HEMATOCRIT 43.8 % (36.0-47.0); HEMOGLOBIN 13.6 g/dl (12.0-15.5); LYMPH % 26.6 % (24.0-44.0); MEAN CORPUSCULAR HEMOGLOBIN 28.5 pg (27.0-33.0); MEAN CORPUSCULAR HGB CONC 31.1 g/dl (32.0-36.5); MEAN CORPUSCULAR VOLUME 91.6 fl (80.0-96.0); MONO # 0.5 10^3/uL (0.0-0.8); NEUTROPHILS % 65.1 % (36.0-66.0); PLATELET COUNT, AUTOMATED 269 10^3/uL (150-450); RED BLOOD COUNT 4.78 10^6/uL (4.00-5.40); WHITE BLOOD COUNT 7.7 10^3/uL (4.0-10.0)
[2023-01-12 15:41] LABS: BLOOD UREA NITROGEN 18 MG/DL (9-23); CALCIUM LEVEL 8.9 MG/DL (8.3-10.6); CARBON DIOXIDE LEVEL 27 MMOL/L (20-31); CHLORIDE LEVEL 105 MMOL/L (98-107); CREATININE FOR GFR 0.67 MG/DL (0.55-1.30); GLOMERULAR FILTRATION RATE > 60.0 (>39); GLUCOSE, FASTING 287 MG/DL (74-106); POTASSIUM SERUM 4.2 MMOL/L (3.5-5.1); SODIUM LEVEL 137 MMOL/L (136-145)
[2023-01-12 17:19] LABS: VENOUS BASE EXCESS 1.6 (-2.0-2.0); VENOUS HCO3 28.3 MMOL/L (23.0-27.0); VENOUS O2 SATURATION 75.9 % (60.0-80.0); VENOUS PARTIAL PRESSURE CO2 53.1 mmHg (38.0-50.0); VENOUS PARTIAL PRESSURE O2 42.3 mmHg (30.0-50.0); VENOUS PH 7.345 UNITS (7.330-7.430); VENOUS STANDARD HCO3 25.3 MMOL/L
[2023-01-12 19:20] VITALS: BP 157/79; TEMP 98.2; O2SAT 98
[2023-01-18] MEDS ORDERED: INSUDET SC (13:33)
== END 2023-01-12 19:29 | disposition home or self-care (01) ==
LOC: M ED 14:22 → EDBD 14:22 → M ED 19:29
DX: E11.65 Type 2 diabetes mellitus with hyperglycemia (principal); I10 Essential (primary) hypertension; J45.909 Unspecified asthma, uncomplicated; Z87.891 Personal history of nicotine dependence; Z91.048 Other nonmedicinal substance allergy status; Z79.811 Long term (current) use of aromatase inhibitors; Z79.82 Long term (current) use of aspirin; Z79.899 Other long term (current) drug therapy

== ENCOUNTER → 2023-01-28 | Day surgery (SDC) | payer MEDICARE ==
[~2023-01-28] VITALS: Ht 149.9 cm; Wt 71.1 kg
[~2023-01-28] MED LIST changes: +BSS IRRIG/VANCO(10MG)/TOBRA(5MG)/EPINEPH(1:1000-0.5CC)500ML BAG-ORONLY IR ONE; +CEFUROXIME 1MG/0.1ML INTRACAMERAL INJ As Ordered ONE; +CYCLOPENTOLATE 1% OPHTH SOLN 2ML BTL OS SCH; +DEXTROSE 50% 50ML SYRINGE IV PRN; +GLUCAGON INJ 1MG VIAL SC PRN; +GLUCOSE 4GM CHEW TABLET PO PRN; +INSULIN LISPRO (NovoLOG) PER UNIT SC PRN; +LIDOCAINE 1% SDV 5ML VIAL As Ordered ONE; +LIDOCAINE 3.5 % 1ML OPHTH TOPICAL GEL OU ONE; +MIDAZOLAM INJ 2MG/2ML VIAL As Ordered ONE; +OFLOXACIN 0.3 % (OCUFLOX) OPTH SOL 5ML OS ONE; +PHENYLEPHRINE 10% OPHTH SOL 5ML OS PRN; +PHENYLEPHRINE 2.5% OPHTH SOL 2ML OS SCH; +TROPICAMIDE 1% OPHTH SOLN 15ML OS SCH; +fentaNYL 100 MCG/2 ML INJECTION As Ordered ONE
[2023-01-28 13:05] VITALS: BP 155/74; TEMP 97.2; O2SAT 96
== END | disposition home or self-care (01) ==
LOC: M SDC 11:05
PROVIDERS: ATTEND Ophthalmology
DX: E11.36 Type 2 diabetes mellitus with diabetic cataract (principal); H25.12 Age-related nuclear cataract, left eye; I10 Essential (primary) hypertension; J45.909 Unspecified asthma, uncomplicated; Z79.899 Other long term (current) drug therapy; Z79.82 Long term (current) use of aspirin; Z79.85 Long-term (current) use of injectable non-insulin antidiabetic drugs; E78.00 Pure hypercholesterolemia, unspecified; Z87.891 Personal history of nicotine dependence
CPT/HCPCS: 66984; J0697; J2250; J3010; V2632

== ENCOUNTER 2023-04-08 18:31 | Emergency (ER) | payer MEDICARE ==
[~2023-04-08] VITALS: Ht 154.9 cm; Wt 68.0 kg
[~2023-04-08 18:31] MED LIST changes: -BSS IRRIG/VANCO(10MG)/TOBRA(5MG)/EPINEPH(1:1000-0.5CC)500ML BAG-ORONLY IR ONE; -CEFUROXIME 1MG/0.1ML INTRACAMERAL INJ As Ordered ONE; -CYCLOPENTOLATE 1% OPHTH SOLN 2ML BTL OS SCH; -DEXTROSE 50% 50ML SYRINGE IV PRN; -GLUCAGON INJ 1MG VIAL SC PRN; -GLUCOSE 4GM CHEW TABLET PO PRN; -INSULIN LISPRO (NovoLOG) PER UNIT SC PRN; -LIDOCAINE 1% SDV 5ML VIAL As Ordered ONE; -LIDOCAINE 3.5 % 1ML OPHTH TOPICAL GEL OU ONE; -MIDAZOLAM INJ 2MG/2ML VIAL As Ordered ONE; -OFLOXACIN 0.3 % (OCUFLOX) OPTH SOL 5ML OS ONE; -PHENYLEPHRINE 10% OPHTH SOL 5ML OS PRN; -PHENYLEPHRINE 2.5% OPHTH SOL 2ML OS SCH; -TROPICAMIDE 1% OPHTH SOLN 15ML OS SCH; -fentaNYL 100 MCG/2 ML INJECTION As Ordered ONE
[2023-04-08] MEDS ORDERED: CEPH500C (18:45)
[2023-04-08] MEDS: NS 1,000 ML IV ONE (19:18)
[2023-04-08 20:01] LABS: HEMATOCRIT 43.9 % (36.0-47.0); HEMOGLOBIN 14.2 g/dl (12.0-15.5); MEAN CORPUSCULAR HEMOGLOBIN 29.3 pg (27.0-33.0); MEAN CORPUSCULAR HGB CONC 32.3 g/dl (32.0-36.5); MEAN CORPUSCULAR VOLUME 90.5 fl (80.0-96.0); PLATELET COUNT, AUTOMATED 259 10^3/uL (150-450); RED BLOOD COUNT 4.85 10^6/uL (4.00-5.40); WHITE BLOOD COUNT 6.5 10^3/uL (4.0-10.0)
[2023-04-08 20:27] LABS: HEMOGLOBIN A1c 12.6 % (4.0-6.0)
[2023-04-08 20:29] LABS: C REACTIVE PROTEIN QUANTITATIV < 0.40 MG/DL (<1.0)
[2023-04-08 20:32] LABS: ALBUMIN 3.5 G/DL (3.2-5.2); ALKALINE PHOSPHATASE 115 U/L (46-116); ALT/SGPT 25 U/L (7.0-40); AST/SGOT 24 U/L (<34); BILIRUBIN,TOTAL 0.3 MG/DL (0.3-1.2); BLOOD UREA NITROGEN 23 MG/DL (9-23); CALCIUM LEVEL 8.5 MG/DL (8.3-10.6); CARBON DIOXIDE LEVEL 24 MMOL/L (20-31); CHLORIDE LEVEL 106 MMOL/L (98-107); CK-MB VALUE MASS < 1.0 NG/ML (<3.6); CPK CREATINE PHOSPHOKINASE 69 U/L (34-145); CREATININE FOR GFR 0.55 MG/DL (0.55-1.30); GLOMERULAR FILTRATION RATE > 60.0 (>39); GLUCOSE, FASTING 323 MG/DL (74-106); MAGNESIUM LEVEL 2.1 MG/DL (1.8-2.4); MB/CK RELATIVE INDEX 1.44 (< OR =4); POTASSIUM SERUM 4.8 MMOL/L (3.5-5.1); SODIUM LEVEL 137 MMOL/L (136-145); TOTAL PROTEIN 6.3 G/DL (5.7-8.2)
[2023-04-08] MEDS: INSULIN LISPRO (NovoLOG) PER UNIT SC ONE (20:40)
[2023-04-08 21:04] VITALS: BP 138/84; TEMP 98.2; O2SAT 98
== END 2023-04-08 21:06 | disposition home or self-care (01) ==
LOC: EDSEX 18:31 → EDBD 18:31 → M ED 18:31
DX: E11.65 Type 2 diabetes mellitus with hyperglycemia (principal); I10 Essential (primary) hypertension; Z86.79 Personal history of other diseases of the circulatory system; Z91.048 Other nonmedicinal substance allergy status; Z79.52 Long term (current) use of systemic steroids; Z79.82 Long term (current) use of aspirin; Z79.811 Long term (current) use of aromatase inhibitors; Z79.4 Long term (current) use of insulin; Z79.899 Other long term (current) drug therapy
CPT/HCPCS: 71045; 80053; 81001; 82550; 82553; 83036; 83735; 84484; 85027; 86140; 87486; 87581; 87633; 87798; 93005; 93041; 96360; 96372; 99284; J1815

== ENCOUNTER → 2023-04-22 | Outpatient (CLI) | payer MEDICARE ==
[~2023-04-22] MED LIST changes: +CEPH500C
== END ==
LOC: M RAD 09:40
PROVIDERS: ATTEND Surgery
DX: L02.216 Cutaneous abscess of umbilicus (principal)

== ENCOUNTER → 2023-04-24 | Outpatient (CLI) | payer MEDICARE ==
[2023-04-24 13:07] LABS: HEMOGLOBIN A1c 11.7 % (4.0-6.0)
[2023-04-24 13:24] LABS: ALBUMIN 3.5 G/DL (3.2-5.2); ALKALINE PHOSPHATASE 123 U/L (46-116); ALT/SGPT 32 U/L (7.0-40); AST/SGOT 15 U/L (<34); BILIRUBIN,TOTAL 0.4 MG/DL (0.3-1.2); BLOOD UREA NITROGEN 21 MG/DL (9-23); CARBON DIOXIDE LEVEL 24 MMOL/L (20-31); CHLORIDE LEVEL 106 MMOL/L (98-107); CHOLESTEROL LEVEL 172 MG/DL (<200); CHOLESTEROL RISK RATIO 2.75 (<5); CREATININE FOR GFR 0.61 MG/DL (0.55-1.30); GLOMERULAR FILTRATION RATE > 60.0 (>39); GLUCOSE, FASTING 405 MG/DL (74-106); HDL CHOLESTEROL 62.5 MG/DL (>40); LDL CHOLESTEROL 87.3 MG/DL (<100); NON-HDL-C 109.5 MG/DL; POTASSIUM SERUM 4.5 MMOL/L (3.5-5.1); SODIUM LEVEL 137 MMOL/L (136-145); TOTAL PROTEIN 6.3 G/DL (5.7-8.2); TRIGLYCERIDES LEVEL 111 MG/DL (<150)
== END ==
LOC: M LAB 12:13
PROVIDERS: ATTEND Internal Medicine
DX: E78.5 Hyperlipidemia, unspecified (principal); E11.649 Type 2 diabetes mellitus with hypoglycemia without coma

== ENCOUNTER 2023-05-18 17:14 | Emergency (ER) | payer MEDICARE ==
[~2023-05-18] VITALS: Ht 144.8 cm; Wt 72.7 kg
[2023-05-18 19:12] LABS: BASO % 0.3 % (0.0-1.0); EOS # 0.3 10^3/uL (0.0-0.5); EOS % 2.4 % (0.0-3.0); HEMATOCRIT 40.3 % (36.0-47.0); HEMOGLOBIN 12.9 g/dl (12.0-15.5); LYMPH # 2.3 10^3/uL (1.5-5.0); MEAN CORPUSCULAR HEMOGLOBIN 29.7 pg (27.0-33.0); MEAN CORPUSCULAR VOLUME 92.9 fl (80.0-96.0); MONO # 0.8 10^3/uL (0.0-0.8); MONO % 6.4 % (2.0-8.0); NEUTROPHILS # 8.6 10^3/uL (1.5-8.5); NEUTROPHILS % 71.6 % (36.0-66.0); PLATELET COUNT, AUTOMATED 290 10^3/uL (150-450); RED BLOOD COUNT 4.34 10^6/uL (4.00-5.40)
[2023-05-18 19:24] LABS: INR 0.99; PROTHROMBIN TIME 12.8 SECONDS (12.5-14.5)
[2023-05-18 19:37] LABS: ALKALINE PHOSPHATASE 114 U/L (46-116); ALT/SGPT 26 U/L (7.0-40); AST/SGOT 15 U/L (<34); BILIRUBIN,DIRECT < 0.1 MG/DL (<0.4); BILIRUBIN,TOTAL 0.2 MG/DL (0.3-1.2); BLOOD UREA NITROGEN 24 MG/DL (9-23); CALCIUM LEVEL 9.2 MG/DL (8.3-10.6); CARBON DIOXIDE LEVEL 30 MMOL/L (20-31); CHLORIDE LEVEL 102 MMOL/L (98-107); CK-MB VALUE MASS < 1.0 NG/ML (<3.6); CREATININE FOR GFR 0.69 MG/DL (0.55-1.30); GLOMERULAR FILTRATION RATE > 60.0 (>39); GLUCOSE, FASTING 208 MG/DL (74-106); POTASSIUM SERUM 4.2 MMOL/L (3.5-5.1); SODIUM LEVEL 136 MMOL/L (136-145); TOTAL PROTEIN 5.7 G/DL (5.7-8.2)
[2023-05-18 19:40] LABS: CPK CREATINE PHOSPHOKINASE 51 U/L (34-145); FREE T4 0.78 NG/DL (0.89-1.76); MB/CK RELATIVE INDEX 1.96 (< OR =4)
[2023-05-18 20:37] LABS: CK-MB VALUE MASS < 1.0 NG/ML (<3.6)
[2023-05-18 20:38] LABS: CPK CREATINE PHOSPHOKINASE 48 U/L (34-145); MB/CK RELATIVE INDEX 2.08 (< OR =4)
[2023-05-18 23:14] LABS: CK-MB VALUE MASS < 1.0 NG/ML (<3.6); CPK CREATINE PHOSPHOKINASE 88 U/L (34-145); MB/CK RELATIVE INDEX 1.13 (< OR =4)
[2023-05-19 00:05] VITALS: TEMP 97.9
[2023-05-19 00:30] VITALS: BP 129/60; O2SAT 96
== END 2023-05-19 02:04 | disposition home or self-care (01) ==
LOC: M ED 17:14 → EDBD 17:14 → M ED 05-19 02:04
DX: F43.0 Acute stress reaction (principal); R79.89 Other specified abnormal findings of blood chemistry; E11.9 Type 2 diabetes mellitus without complications; I10 Essential (primary) hypertension; F41.1 Generalized anxiety disorder; Z87.891 Personal history of nicotine dependence; Z79.82 Long term (current) use of aspirin; Z79.899 Other long term (current) drug therapy; Z91.89 Other specified personal risk factors, not elsewhere classified

== ENCOUNTER 2023-06-23 11:17 | Emergency (ER) | payer MEDICARE ==
[~2023-06-23] VITALS: Ht 149.9 cm; Wt 75.7 kg
[~2023-06-23 11:17] MED LIST changes: +INDA2.5T2 PO; -INDA25TAB PO; -POTA10CA60; -POTA10CA60 PO; +POTA10CA70; +POTA10CA70 PO
[2023-06-23] MEDS: ACETAMINOPHEN 325 MG TAB PO ONE (12:17)
[2023-06-23 12:28] LABS: BASO % 0.5 % (0.0-1.0); EOS % 0.3 % (0.0-3.0); HEMATOCRIT 45.6 % (36.0-47.0); HEMOGLOBIN 14.3 g/dl (12.0-15.5); LYMPH # 1.1 10^3/uL (1.5-5.0); LYMPH % 13.2 % (24.0-44.0); MEAN CORPUSCULAR HEMOGLOBIN 29.3 pg (27.0-33.0); MEAN CORPUSCULAR HGB CONC 31.4 g/dl (32.0-36.5); MEAN CORPUSCULAR VOLUME 93.4 fl (80.0-96.0); MONO # 0.5 10^3/uL (0.0-0.8); MONO % 6.3 % (2.0-8.0); NEUTROPHILS # 6.3 10^3/uL (1.5-8.5); NEUTROPHILS % 79.3 % (36.0-66.0); PLATELET COUNT, AUTOMATED 295 10^3/uL (150-450); RED BLOOD COUNT 4.88 10^6/uL (4.00-5.40)
[2023-06-23 14:03] LABS: ETHYL ALCOHOL (ETHANOL) < 0.003 % (0.000-0.010); OSMOLALITY SERUM 292 MOSM/KG (280-301)
[2023-06-23 14:05] LABS: ALBUMIN 2.9 G/DL (3.2-5.2); ALKALINE PHOSPHATASE 110 U/L (46-116); ALT/SGPT 27 U/L (7.0-40); AST/SGOT 23 U/L (<34); BILIRUBIN,DIRECT < 0.1 MG/DL (<0.4); BILIRUBIN,TOTAL 0.3 MG/DL (0.3-1.2); BLOOD UREA NITROGEN 19 MG/DL (9-23); CALCIUM LEVEL 8.3 MG/DL (8.3-10.6); CARBON DIOXIDE LEVEL 27 MMOL/L (20-31); CHLORIDE LEVEL 103 MMOL/L (98-107); CREATININE FOR GFR 0.62 MG/DL (0.55-1.30); GLOMERULAR FILTRATION RATE > 60.0 (>39); GLUCOSE, FASTING 149 MG/DL (74-106); POTASSIUM SERUM 4.1 MMOL/L (3.5-5.1); SODIUM LEVEL 137 MMOL/L (136-145); TOTAL PROTEIN 5.7 G/DL (5.7-8.2)
[2023-06-23 14:07] LABS: THYROID STIMULATING HORMONE 1.173 uIU/ML (0.55-4.78)
[2023-06-23 14:45] VITALS: BP 142/62; TEMP 97.1; O2SAT 95
== END 2023-06-23 15:08 | disposition home or self-care (01) ==
LOC: EDBD 11:17 → M ED 11:17
DX: E11.649 Type 2 diabetes mellitus with hypoglycemia without coma (principal); J11.1 Influenza due to unidentified influenza virus with other respiratory manifestations; B34.8 Other viral infections of unspecified site; I10 Essential (primary) hypertension; E78.5 Hyperlipidemia, unspecified; Z87.891 Personal history of nicotine dependence; Z79.4 Long term (current) use of insulin; Z79.82 Long term (current) use of aspirin; Z79.899 Other long term (current) drug therapy; Z91.89 Other specified personal risk factors, not elsewhere classified

== ENCOUNTER 2023-10-07 20:03 | Emergency (ER) | payer MEDICARE ==
[~2023-10-07] VITALS: Ht 149.9 cm; Wt 75.5 kg
[~2023-10-07 20:03] MED LIST changes: +ONDA-282 PO; -ONDA4TAB6 PO
[2023-10-07 22:44] LABS: VENOUS HCO3 23.6 MMOL/L (23.0-27.0); VENOUS O2 SATURATION 84.9 % (60.0-80.0); VENOUS PARTIAL PRESSURE CO2 39.3 mmHg (38.0-50.0); VENOUS PARTIAL PRESSURE O2 48.2 mmHg (30.0-50.0); VENOUS PH 7.397 UNITS (7.330-7.430); VENOUS STANDARD HCO3 23.3 MMOL/L; VENOUS TOTAL CO2 24.8 MMOL/L (24.0-28.0)
[2023-10-07 22:54] LABS: BASO % 0.5 % (0.0-1.0); EOS # 0.2 10^3/uL (0.0-0.5); EOS % 2.9 % (0.0-3.0); HEMATOCRIT 41.3 % (36.0-47.0); HEMOGLOBIN 13.1 g/dl (12.0-15.5); LYMPH # 2.6 10^3/uL (1.5-5.0); LYMPH % 34.6 % (24.0-44.0); MEAN CORPUSCULAR HEMOGLOBIN 28.3 pg (27.0-33.0); MEAN CORPUSCULAR HGB CONC 31.7 g/dl (32.0-36.5); MEAN CORPUSCULAR VOLUME 89.2 fl (80.0-96.0); MONO # 0.5 10^3/uL (0.0-0.8); MONO % 6.4 % (2.0-8.0); NEUTROPHILS # 4.2 10^3/uL (1.5-8.5); NEUTROPHILS % 55.2 % (36.0-66.0); PLATELET COUNT, AUTOMATED 286 10^3/uL (150-450); RED BLOOD COUNT 4.63 10^6/uL (4.00-5.40); WHITE BLOOD COUNT 7.6 10^3/uL (4.0-10.0)
[2023-10-07 23:11] LABS: LIPASE 62 U/L (12-53)
[2023-10-07 23:13] LABS: ALBUMIN 3.4 G/DL (3.2-5.2); ALKALINE PHOSPHATASE 117 U/L (46-116); ALT/SGPT 20 U/L (7.0-40); AST/SGOT 11 U/L (<34); BILIRUBIN,DIRECT < 0.1 MG/DL (<0.4); BILIRUBIN,TOTAL 0.3 MG/DL (0.3-1.2); BLOOD UREA NITROGEN 28 MG/DL (9-23); CALCIUM LEVEL 9.1 MG/DL (8.3-10.6); CARBON DIOXIDE LEVEL 28 MMOL/L (20-31); CHLORIDE LEVEL 103 MMOL/L (98-107); CREATININE FOR GFR 0.65 MG/DL (0.55-1.30); GLOMERULAR FILTRATION RATE > 60.0 (>39); GLUCOSE, FASTING 259 MG/DL (74-106); POTASSIUM SERUM 4.4 MMOL/L (3.5-5.1); SODIUM LEVEL 134 MMOL/L (136-145); TOTAL PROTEIN 6.5 G/DL (5.7-8.2)
[2023-10-08] MEDS: CEPHALEXIN 500 MG CAP PO ONE (00:10)
[2023-10-08] MEDS ORDERED: CEPH500C PO (00:37)
[2023-10-08 01:08] VITALS: BP 142/63; TEMP 96.5; O2SAT 99
== END 2023-10-08 01:20 | disposition home or self-care (01) ==
LOC: M ED 20:03
DX: E11.65 Type 2 diabetes mellitus with hyperglycemia (principal); L03.114 Cellulitis of left upper limb; I10 Essential (primary) hypertension; J45.909 Unspecified asthma, uncomplicated; G40.909 Epilepsy, unspecified, not intractable, without status epilepticus; E78.00 Pure hypercholesterolemia, unspecified; Z79.4 Long term (current) use of insulin; Z79.82 Long term (current) use of aspirin; Z79.899 Other long term (current) drug therapy; Z91.89 Other specified personal risk factors, not elsewhere classified

== ENCOUNTER 2023-10-18 16:57 | Emergency (ER) | payer MEDICARE ==
[~2023-10-18] VITALS: Ht 162.6 cm; Wt 74.1 kg
[2023-10-18 16:57] VITALS: BP 135/80; TEMP 96.7; O2SAT 96
[2023-10-18] MEDS ORDERED: BACI500O8 TOP (19:05)
[2023-10-18] MEDS ORDERED: DOXY-323 PO (19:05)
[2023-10-18] MEDS ORDERED: CETI10CH PO (19:07)
[2023-10-18] MEDS: DOXYCYCLINE HYCLATE 100MG TABLET PO ONE (19:14)
[2023-10-18] MEDS: BACITRACIN OINTMENT 30GM TUBE TOP ONE (19:15)
== END 2023-10-18 19:36 | disposition home or self-care (01) ==
LOC: M ED 16:57
DX: F42.4 Excoriation (skin-picking) disorder (principal); L03.90 Cellulitis, unspecified; I10 Essential (primary) hypertension; E11.9 Type 2 diabetes mellitus without complications; Z79.4 Long term (current) use of insulin; Z79.82 Long term (current) use of aspirin; Z79.899 Other long term (current) drug therapy; Z91.89 Other specified personal risk factors, not elsewhere classified

== ENCOUNTER 2023-10-28 23:22 | Emergency (ER) | payer MEDICARE ==
[~2023-10-28] VITALS: Ht 152.4 cm; Wt 78.8 kg
[~2023-10-28 23:22] MED LIST changes: +BACI500O8 TOP; +CETI10CH PO; +DOXY-323 PO
[2023-10-29] MEDS: NS 1,000 ML IV ONE (00:01)
[2023-10-29 00:37] LABS: BASO % 0.2 % (0.0-1.0); EOS # 0.1 10^3/uL (0.0-0.5); EOS % 0.7 % (0.0-3.0); HEMATOCRIT 39.6 % (36.0-47.0); HEMOGLOBIN 12.3 g/dl (12.0-15.5); LYMPH # 1.5 10^3/uL (1.5-5.0); LYMPH % 11.8 % (24.0-44.0); MEAN CORPUSCULAR HEMOGLOBIN 28.5 pg (27.0-33.0); MEAN CORPUSCULAR HGB CONC 31.1 g/dl (32.0-36.5); MEAN CORPUSCULAR VOLUME 91.7 fl (80.0-96.0); MONO # 0.4 10^3/uL (0.0-0.8); MONO % 3.4 % (2.0-8.0); NEUTROPHILS # 10.3 10^3/uL (1.5-8.5); NEUTROPHILS % 83.6 % (36.0-66.0); PLATELET COUNT, AUTOMATED 261 10^3/uL (150-450); RED BLOOD COUNT 4.32 10^6/uL (4.00-5.40); WHITE BLOOD COUNT 12.3 10^3/uL (4.0-10.0)
[2023-10-29 00:49] LABS: INR 1.01; PARTIAL THROMBOPLASTIN TIME 25.4 SECONDS (24.8-34.2)
[2023-10-29 01:47] LABS: ALBUMIN 3.3 G/DL (3.2-5.2); ALKALINE PHOSPHATASE 109 U/L (46-116); ALT/SGPT 18 U/L (7.0-40); AST/SGOT 37 U/L (<34); BILIRUBIN,DIRECT < 0.1 MG/DL (<0.4); BILIRUBIN,TOTAL < 0.2 MG/DL (0.3-1.2); BLOOD UREA NITROGEN 27 MG/DL (9-23); CALCIUM LEVEL 8.5 MG/DL (8.3-10.6); CARBON DIOXIDE LEVEL 25 MMOL/L (20-31); CHLORIDE LEVEL 106 MMOL/L (98-107); CK-MB VALUE MASS < 1.0 NG/ML (<3.6); CPK CREATINE PHOSPHOKINASE 93 U/L (34-145); CREATININE FOR GFR 0.87 MG/DL (0.55-1.30); GLOMERULAR FILTRATION RATE > 60.0 (>39); GLUCOSE, FASTING 405 MG/DL (74-106); LIPASE 55 U/L (12-53); MB/CK RELATIVE INDEX 1.07 (< OR =4); POTASSIUM SERUM 5.7 MMOL/L (3.5-5.1); SODIUM LEVEL 134 MMOL/L (136-145); TOTAL PROTEIN 6.1 G/DL (5.7-8.2)
[2023-10-29 02:48] LABS: CK-MB VALUE MASS < 1.0 NG/ML (<3.6)
[2023-10-29 02:50] LABS: CPK CREATINE PHOSPHOKINASE 78 U/L (34-145); MB/CK RELATIVE INDEX 1.28 (< OR =4)
[2023-10-29] MEDS ORDERED: ISOVUE-370 76% 100ML VIAL As Ordered ONE (03:43)
[2023-10-29 04:33] LABS: CK-MB VALUE MASS 1.1 NG/ML (<3.6)
[2023-10-29 04:39] LABS: MB/CK RELATIVE INDEX 1.39 (< OR =4)
[2023-10-29] MEDS: KETOROLAC 30 MG/ML 1ML VIAL IV ONE (06:05)
[2023-10-29] MEDS: ONDANSETRON 4MG 2ML VIAL IV ONE (06:05)
[2023-10-29 07:30] VITALS: TEMP 97.2
[2023-10-29 07:50] VITALS: BP 103/51; O2SAT 96
[2023-10-29 13:24] LABS: PROCALCITONIN 0.06 ng/ml
== END 2023-10-29 08:25 | disposition home or self-care (01) ==
LOC: M ED 23:22 → EDBD 23:22 → M ED 10-29 08:25
DX: R10.9 Unspecified abdominal pain (principal); K59.00 Constipation, unspecified; E11.9 Type 2 diabetes mellitus without complications; I10 Essential (primary) hypertension; E78.5 Hyperlipidemia, unspecified; Z85.42 Personal history of malignant neoplasm of other parts of uterus; Z87.891 Personal history of nicotine dependence; Z79.82 Long term (current) use of aspirin; Z79.4 Long term (current) use of insulin; Z79.899 Other long term (current) drug therapy; Z91.89 Other specified personal risk factors, not elsewhere classified
CPT/HCPCS: 36415; 71275; 74177; 80048; 80076; 81001; 82550; 82553; 83605; 83690; 84145; 84484; 85025; 85610; 85730; 87040; 93005; 93041; 96374; 96375; 99285; J1885; J2405; Q9967

== ENCOUNTER 2023-11-21 18:11 | Emergency (ER) | payer MEDICARE ==
[~2023-11-21] VITALS: Ht 152.4 cm; Wt 74.5 kg
[2023-11-21 20:05] VITALS: BP 130/59; TEMP 98.7; O2SAT 97
== END 2023-11-21 20:19 | disposition home or self-care (01) ==
LOC: M ED 18:11
DX: M25.561 Pain in right knee (principal); I10 Essential (primary) hypertension; E11.9 Type 2 diabetes mellitus without complications; K21.9 Gastro-esophageal reflux disease without esophagitis; J45.909 Unspecified asthma, uncomplicated; Z91.048 Other nonmedicinal substance allergy status; Z79.51 Long term (current) use of inhaled steroids; Z79.1 Long term (current) use of non-steroidal anti-inflammatories (NSAID); Z79.4 Long term (current) use of insulin; Z79.899 Other long term (current) drug therapy

== ENCOUNTER 2023-11-23 19:27 | Emergency (ER) | payer MEDICARE ==
[~2023-11-23] VITALS: Ht 149.9 cm; Wt 72.7 kg
[~2023-11-23 19:27] MED LIST changes: -DOXY-323 PO; +DOXY-441 PO
[2023-11-23 22:33] VITALS: BP 145/72; TEMP 97; O2SAT 97
[2023-11-23] MEDS ORDERED: IBUP-1022 PO (23:01)
[2023-11-23] MEDS: IBUPROFEN 600MG TAB PO ONE (23:21)
== END 2023-11-23 23:41 | disposition home or self-care (01) ==
LOC: M ED 19:27 → EDBD 19:27 → M ED 23:41
DX: M17.11 Unilateral primary osteoarthritis, right knee (principal); Z87.891 Personal history of nicotine dependence; Z91.048 Other nonmedicinal substance allergy status; Z79.51 Long term (current) use of inhaled steroids; Z79.1 Long term (current) use of non-steroidal anti-inflammatories (NSAID); Z79.4 Long term (current) use of insulin; Z79.899 Other long term (current) drug therapy

== ENCOUNTER → 2024-01-05 | Outpatient (CLI) | payer MEDICARE ==
[~2024-01-05] MED LIST changes: +IBUP-1022 PO
[2024-01-05 12:53] LABS: BASO % 0.4 % (0.0-1.0); EOS # 0.2 10^3/uL (0.0-0.5); EOS % 2.6 % (0.0-3.0); HEMATOCRIT 45.2 % (36.0-47.0); HEMOGLOBIN 14.2 g/dl (12.0-15.5); LYMPH # 1.8 10^3/uL (1.5-5.0); LYMPH % 26.2 % (24.0-44.0); MEAN CORPUSCULAR HEMOGLOBIN 28.2 pg (27.0-33.0); MEAN CORPUSCULAR HGB CONC 31.4 g/dl (32.0-36.5); MEAN CORPUSCULAR VOLUME 89.7 fl (80.0-96.0); MONO # 0.4 10^3/uL (0.0-0.8); MONO % 5.6 % (2.0-8.0); NEUTROPHILS # 4.5 10^3/uL (1.5-8.5); NEUTROPHILS % 64.9 % (36.0-66.0); PLATELET COUNT, AUTOMATED 365 10^3/uL (150-450); RED BLOOD COUNT 5.04 10^6/uL (4.00-5.40); WHITE BLOOD COUNT 6.9 10^3/uL (4.0-10.0)
[2024-01-05 13:08] LABS: HEMOGLOBIN A1c 10.5 % (4.0-6.0)
[2024-01-05 13:30] LABS: ALBUMIN 3.4 G/DL (3.2-5.2); ALKALINE PHOSPHATASE 139 U/L (35-104); ALT/SGPT 15 U/L (7.0-40); AST/SGOT < 8 U/L (<34); BILIRUBIN,TOTAL 0.4 MG/DL (0.3-1.2); BLOOD UREA NITROGEN 21 MG/DL (9-23); CALCIUM LEVEL 9.7 MG/DL (8.3-10.6); CARBON DIOXIDE LEVEL 30 MMOL/L (20-31); CHLORIDE LEVEL 102 MMOL/L (98-107); CHOLESTEROL LEVEL 223 MG/DL (<200); CHOLESTEROL RISK RATIO 3.55 (<5); CREATININE FOR GFR 0.77 MG/DL (0.55-1.30); GLOMERULAR FILTRATION RATE > 60.0 (>39); GLUCOSE, FASTING 278 MG/DL (74-106); HDL CHOLESTEROL 62.8 MG/DL (>40); LDL CHOLESTEROL 134.8 MG/DL (<100); NON-HDL-C 160.2 MG/DL; POTASSIUM SERUM 4.6 MMOL/L (3.5-5.1); SODIUM LEVEL 137 MMOL/L (136-145); TOTAL PROTEIN 7.2 G/DL (5.7-8.2); TRIGLYCERIDES LEVEL 127 MG/DL (<150)
== END ==
LOC: M WUC 10:52
PROVIDERS: ATTEND Internal Medicine
DX: E78.5 Hyperlipidemia, unspecified (principal); E11.65 Type 2 diabetes mellitus with hyperglycemia

== ENCOUNTER 2024-02-18 15:32 | Inpatient (IN) | payer MEDICARE ==
[~2024-02-18] VITALS: Ht 152.4 cm; Wt 78.5 kg
[2024-02-18] MEDS ORDERED: DEXTROSE 50% 50ML SYRINGE As Ordered ONE (15:39)
[2024-02-18] MEDS: DEXTROSE 50% 50ML SYRINGE IV STA (15:45)
[2024-02-18 16:14] LABS: BASO % 0.1 % (0.0-1.0); EOS % 0.3 % (0.0-3.0); HEMATOCRIT 46.4 % (36.0-47.0); HEMOGLOBIN 14.4 g/dl (12.0-15.5); LYMPH # 1.4 10^3/uL (1.5-5.0); LYMPH % 15.5 % (24.0-44.0); MEAN CORPUSCULAR HEMOGLOBIN 27.8 pg (27.0-33.0); MEAN CORPUSCULAR VOLUME 89.6 fl (80.0-96.0); MONO # 0.3 10^3/uL (0.0-0.8); MONO % 3.2 % (2.0-8.0); NEUTROPHILS # 7.1 10^3/uL (1.5-8.5); NEUTROPHILS % 80.7 % (36.0-66.0); PLATELET COUNT, AUTOMATED 361 10^3/uL (150-450); RED BLOOD COUNT 5.18 10^6/uL (4.00-5.40); WHITE BLOOD COUNT 8.8 10^3/uL (4.0-10.0)
[2024-02-18 16:44] LABS: ALBUMIN 3.3 G/DL (3.2-5.2); ALKALINE PHOSPHATASE 87 U/L (35-104); ALT/SGPT 33 U/L (7.0-40); AST/SGOT 37 U/L (<34); BILIRUBIN,DIRECT < 0.1 MG/DL (<0.4); BILIRUBIN,TOTAL 0.3 MG/DL (0.3-1.2); BLOOD UREA NITROGEN 23 MG/DL (9-23); CALCIUM LEVEL 7.9 MG/DL (8.3-10.6); CARBON DIOXIDE LEVEL 26 MMOL/L (20-31); CHLORIDE LEVEL 109 MMOL/L (98-107); CREATININE FOR GFR 0.55 MG/DL (0.55-1.30); GLOMERULAR FILTRATION RATE > 60.0 (>39); GLUCOSE, FASTING 218 MG/DL (74-106); SODIUM LEVEL 142 MMOL/L (136-145); TOTAL PROTEIN 6.3 G/DL (5.7-8.2)
[2024-02-18] MEDS: LIDOCAINE 2% 5ML JELLY UROJET TOP ONE (17:00)
[2024-02-18] MEDS: NS 500 ML IV ONE (17:10)
[2024-02-18 17:14] LABS: MAGNESIUM LEVEL 1.7 MG/DL (1.8-2.4)
[2024-02-18] MEDS ORDERED: BASA100I INJ (18:04)
[2024-02-18] MEDS ORDERED: HOME MED LIST COMPLETE! XX SCH (18:05)
[2024-02-18 19:09] LABS: PROCALCITONIN <0.04 ng/ml
[2024-02-18] MEDS ORDERED: ACETAMINOPHEN 325 MG TAB PO PRN (19:30)
[2024-02-18] MEDS ORDERED: MOM 30ML SUSPENSION UDC PO PRN (19:30)
[2024-02-18] MEDS ORDERED: GLUCOSE 4 GM CHEW PO PRN (19:30)
[2024-02-18] MEDS ORDERED: GLUCAGON INJ 1MG VIAL SC PRN (19:30)
[2024-02-18 20:35] VITALS: BP 141/84; TEMP 97.2; O2SAT 100
[2024-02-18 22:32] VITALS: BP 151/67; O2SAT 98
[2024-02-18 22:38] LABS: ALKALINE PHOSPHATASE 86 U/L (35-104); ALT/SGPT 30 U/L (7.0-40); AST/SGOT 30 U/L (<34); BILIRUBIN,DIRECT < 0.1 MG/DL (<0.4); BILIRUBIN,TOTAL 0.3 MG/DL (0.3-1.2); TOTAL PROTEIN 6.1 G/DL (5.7-8.2)
[2024-02-18 23:40] VITALS: BP 143/61; TEMP 98.9; O2SAT 98
[2024-02-19] VITALS (8 sets, daily range): BP systolic 132–158; BP diastolic 58–70; TEMP 94.6–99.4; O2SAT 92–97
[2024-02-19] MEDS: DEXTROSE 50% 50ML SYRINGE IV PRN (03:47)
[2024-02-19] MEDS: LR 1,000 ML IV SCH (05:24)
[2024-02-19 06:23] LABS: HEMATOCRIT 41.4 % (36.0-47.0); MEAN CORPUSCULAR HEMOGLOBIN 27.5 pg (27.0-33.0); MEAN CORPUSCULAR HGB CONC 31.4 g/dl (32.0-36.5); MEAN CORPUSCULAR VOLUME 87.7 fl (80.0-96.0); PLATELET COUNT, AUTOMATED 284 10^3/uL (150-450); RED BLOOD COUNT 4.72 10^6/uL (4.00-5.40); WHITE BLOOD COUNT 6.7 10^3/uL (4.0-10.0)
[2024-02-19 07:14] LABS: ALKALINE PHOSPHATASE 84 U/L (35-104); ALT/SGPT 27 U/L (7.0-40); AST/SGOT 29 U/L (<34); BILIRUBIN,TOTAL 0.4 MG/DL (0.3-1.2); BLOOD UREA NITROGEN 23 MG/DL (9-23); CALCIUM LEVEL 9.1 MG/DL (8.3-10.6); CARBON DIOXIDE LEVEL 28 MMOL/L (20-31); CHLORIDE LEVEL 110 MMOL/L (98-107); CREATININE FOR GFR 0.68 MG/DL (0.55-1.30); GLOMERULAR FILTRATION RATE > 60.0 (>39); GLUCOSE, FASTING 57 MG/DL (74-106); POTASSIUM SERUM 3.6 MMOL/L (3.5-5.1); SODIUM LEVEL 145 MMOL/L (136-145)
[2024-02-19 08:11] LABS: THYROID STIMULATING HORMONE 3.163 uIU/ML (0.55-4.78); THYROXINE (T4) 5.5 UG/DL (4.5-10.9)
[2024-02-19] MEDS: ASPIRIN 81MG ENTERIC TABLET PO SCH (08:12)
[2024-02-19] MEDS: PANTOPRAZOLE 40MG VIAL IV SCH (08:12)
[2024-02-19] MEDS: POTASSIUM CHLORIDE 10MEQ SR TABLET PO SCH (08:12)
[2024-02-19] MEDS: ENOXAPARIN 40MG/0.4ML SYRINGE (J1650 PER 10MG) SC SCH (08:12)
[2024-02-19] MEDS: MAGNESIUM OXIDE 400MG TAB (MAG-OX) PO SCH (08:12)
[2024-02-19] MEDS: lisinopriL 5 MG TAB PO SCH (08:12)
[2024-02-19] MEDS: LACTOBACILLUS ACIDOPHILUS CAP (BACID) PO SCH (09:58)
[2024-02-19] MEDS: DOCUSATE SODIUM 100MG CAPSULE PO ONE (09:59)
[2024-02-19] MEDS: cefTRIAXone SOD 1 GM in DEXTROSE 5% (D5W) ADV/MINI-BAG 50 ML IV SCH (09:59)
[2024-02-19] MEDS: MUPIROCIN 2% OINT 22 GM TUBE TOP SCH (10:03)
[2024-02-19] MEDS ORDERED: DOCUSATE SODIUM 100MG CAPSULE PO PRN (16:00)
[2024-02-19 16:21] LABS: FREE THYROXINE INDEX 1.8 % (1.3-4.8)
[2024-02-19] MEDS: COMBIVENT RESPIMAT 100-20MCG INHALER 4GM INH PRN (20:59)
[2024-02-20 03:22] VITALS: BP 139/91; TEMP 97.7; O2SAT 97
[2024-02-20 04:43] LABS: C-PEPTIDE < 0.10 ng/mL (0.80-3.85)
[2024-02-20 07:37] VITALS: BP 174/65; TEMP 97.5; O2SAT 99
[2024-02-20 07:50] LABS: BASO # 0.1 10^3/uL (0.0-0.2); BASO % 0.9 % (0.0-1.0); EOS # 0.2 10^3/uL (0.0-0.5); EOS % 2.7 % (0.0-3.0); HEMATOCRIT 39.5 % (36.0-47.0); HEMOGLOBIN 12.2 g/dl (12.0-15.5); LYMPH # 3.2 10^3/uL (1.5-5.0); LYMPH % 54.1 % (24.0-44.0); MEAN CORPUSCULAR HEMOGLOBIN 26.9 pg (27.0-33.0); MEAN CORPUSCULAR HGB CONC 30.9 g/dl (32.0-36.5); MONO # 0.5 10^3/uL (0.0-0.8); MONO % 8.2 % (2.0-8.0); NEUTROPHILS % 33.9 % (36.0-66.0); PLATELET COUNT, AUTOMATED 285 10^3/uL (150-450); RED BLOOD COUNT 4.54 10^6/uL (4.00-5.40); WHITE BLOOD COUNT 5.9 10^3/uL (4.0-10.0)
[2024-02-20 08:36] LABS: ALBUMIN 2.9 G/DL (3.2-5.2); ALKALINE PHOSPHATASE 83 U/L (35-104); ALT/SGPT 30 U/L (7.0-40); AST/SGOT 24 U/L (<34); BILIRUBIN,TOTAL 0.4 MG/DL (0.3-1.2); BLOOD UREA NITROGEN 18 MG/DL (9-23); CALCIUM LEVEL 9.1 MG/DL (8.3-10.6); CARBON DIOXIDE LEVEL 27 MMOL/L (20-31); CHLORIDE LEVEL 109 MMOL/L (98-107); CREATININE FOR GFR 0.83 MG/DL (0.55-1.30); GLOMERULAR FILTRATION RATE > 60.0 (>39); GLUCOSE, FASTING 104 MG/DL (74-106); POTASSIUM SERUM 4.3 MMOL/L (3.5-5.1); SODIUM LEVEL 146 MMOL/L (136-145); TOTAL PROTEIN 5.6 G/DL (5.7-8.2)
[2024-02-20] MEDS: cefTRIAXone SOD 1 GM in DEXTROSE 5% (D5W) ADV/MINI-BAG 50 ML IV ONE (09:57)
[2024-02-20] MEDS: PANTOPRAZOLE 40MG TAB (PROTONIX) PO SCH (10:05)
[2024-02-20 11:54] VITALS: BP 130/60; TEMP 97.7; O2SAT 98
[2024-02-20 12:17] VITALS: BP 166/66; TEMP 98.6; O2SAT 95
[2024-02-20 20:30] VITALS: BP 133/56; TEMP 99.5; O2SAT 98
[2024-02-21 04:06] VITALS: BP 185/73; TEMP 97.3; O2SAT 99
[2024-02-21] MEDS ORDERED: CEFDINIR 300 MG CAP (OMNICEF) PO SCH (09:00)
[2024-02-21] MEDS: LACTOBACILLUS ACIDOPHILUS CAP (BACID) PO SCH (09:09)
[2024-02-21] MEDS: NS 0.45% 1,000 ML IV ONE (09:11)
[2024-02-21] MEDS: ISOSORBIDE DIN (ISORDIL) 10MG TAB PO SCH (09:17)
[2024-02-21 10:42] LABS: INSULIN LEVEL 66.7 uIU/mL (<=18.4)
[2024-02-21 11:49] VITALS: BP 131/60; TEMP 98.3; O2SAT 97
[2024-02-21] MEDS: NS 0.45% 1,000 ML IV SCH (11:53)
[2024-02-21] MEDS: NYSTATIN 100,000 UNITS/GM TOPICAL PWD 15GM TOP SCH (15:13)
[2024-02-21] MEDS: INSULIN LISPRO (NovoLOG) PER UNIT SC ONE (15:13)
[2024-02-21] MEDS: NYSTATIN CREAM 15GM TOP SCH (15:13)
[2024-02-21 15:47] LABS: BLOOD UREA NITROGEN 23 MG/DL (9-23); CALCIUM LEVEL 9.2 MG/DL (8.3-10.6); CARBON DIOXIDE LEVEL 26 MMOL/L (20-31); CHLORIDE LEVEL 106 MMOL/L (98-107); CREATININE FOR GFR 0.81 MG/DL (0.55-1.30); GLOMERULAR FILTRATION RATE > 60.0 (>39); GLUCOSE, FASTING 316 MG/DL (74-106); POTASSIUM SERUM 4.5 MMOL/L (3.5-5.1); SODIUM LEVEL 141 MMOL/L (136-145)
[2024-02-21] MEDS: INSULIN LISPRO (NovoLOG) PER UNIT SC SCH ×2 (18:51→20:33)
[2024-02-21 19:53] VITALS: BP 142/66; TEMP 98.2; O2SAT 96
[2024-02-21 20:50] VITALS: BP 142/66
[2024-02-22 03:58] VITALS: BP 154/65; TEMP 97.8; O2SAT 96
[2024-02-22] MEDS ORDERED: BASA100I SC (07:43)
[2024-02-22] MEDS ORDERED: BLOOKIT21 XX (07:43)
[2024-02-22] MEDS ORDERED: GLUC1TES2 XX (07:43)
[2024-02-22] MEDS ORDERED: LANC30MI XX (07:43)
[2024-02-22] MEDS ORDERED: PEN-308 SC (07:43)
[2024-02-22] MEDS ORDERED: INSU100I16 SQ (07:43)
[2024-02-22] MEDS ORDERED: ALCOPAD25 TOP (07:43)
[2024-02-22] MEDS: LEVEMIR (INSULIN DETEMIR) 1 UNITS/0.01ML SC SCH (08:46)
[2024-02-22] MEDS ORDERED: HUMA100I5 SC (12:24)
[2024-02-24 14:56] LABS: LYME TOTAL ANTIBODY CIA <= 0.90 Index (<=0.90)
== END 2024-02-22 15:00 | disposition home health service (06) | DRG 637 ==
LOC: M ED 15:32 → M ED INP 19:26 → M PCU 20:39 → M MS4PR 02-20 12:08
PROVIDERS: ADMIT Student in an Organized Health Care Education/Training Program; ATTEND General Practice
PROC: B246ZZZ Ultrasonography of Right and Left Heart (ICD-10-PCS; principal; 2024-02-19)
DX: E11.649 Type 2 diabetes mellitus with hypoglycemia without coma (principal); G93.41 Metabolic encephalopathy; Z66 Do not resuscitate; I10 Essential (primary) hypertension; J45.909 Unspecified asthma, uncomplicated; E78.5 Hyperlipidemia, unspecified; Z87.891 Personal history of nicotine dependence; Z85.42 Personal history of malignant neoplasm of other parts of uterus; T68.XXXA Hypothermia, initial encounter; Z79.4 Long term (current) use of insulin; Z79.82 Long term (current) use of aspirin; Z79.899 Other long term (current) drug therapy; Z91.048 Other nonmedicinal substance allergy status; L08.9 Local infection of the skin and subcutaneous tissue, unspecified; B37.2 Candidiasis of skin and nail; R19.7 Diarrhea, unspecified; T47.4X5A Adverse effect of other laxatives, initial encounter; I16.0 Hypertensive urgency; S41.001A Unspecified open wound of right shoulder, initial encounter; S41.002A Unspecified open wound of left shoulder, initial encounter; W19.XXXA Unspecified fall, initial encounter; Y92.009 Unspecified place in unspecified non-institutional (private) residence as the place of occurrence of the external cause

== ENCOUNTER 2024-03-15 19:12 | Observation (INO) | payer MEDICARE ==
[~2024-03-15] VITALS: Ht 157.5 cm; Wt 75.5 kg
[~2024-03-15 19:12] MED LIST changes: +ALCOPAD25 TOP; +BASA100I INJ; +BASA100I SC; +BLOOKIT21 XX; +GLUC1TES2 XX; +HUMA100I5 SC; +INSU100I16 SQ; +LANC30MI XX; +PEN-308 SC
[2024-03-15 20:28] LABS: BASO % 0.3 % (0.0-1.0); EOS % 0.2 % (0.0-3.0); HEMATOCRIT 44.1 % (36.0-47.0); LYMPH # 1.2 10^3/uL (1.5-5.0); LYMPH % 8.7 % (24.0-44.0); MEAN CORPUSCULAR HEMOGLOBIN 28.1 pg (27.0-33.0); MEAN CORPUSCULAR HGB CONC 31.7 g/dl (32.0-36.5); MEAN CORPUSCULAR VOLUME 88.4 fl (80.0-96.0); MONO # 0.5 10^3/uL (0.0-0.8); MONO % 3.6 % (2.0-8.0); NEUTROPHILS # 12.4 10^3/uL (1.5-8.5); NEUTROPHILS % 86.9 % (36.0-66.0); PLATELET COUNT, AUTOMATED 324 10^3/uL (150-450); RED BLOOD COUNT 4.99 10^6/uL (4.00-5.40); WHITE BLOOD COUNT 14.3 10^3/uL (4.0-10.0)
[2024-03-15 20:54] LABS: BLOOD UREA NITROGEN 21 MG/DL (9-23); CALCIUM LEVEL 9.1 MG/DL (8.3-10.6); CARBON DIOXIDE LEVEL 25 MMOL/L (20-31); CHLORIDE LEVEL 106 MMOL/L (98-107); CREATININE FOR GFR 0.66 MG/DL (0.55-1.30); GLOMERULAR FILTRATION RATE > 60.0 (>39); GLUCOSE, FASTING 169 MG/DL (74-106); POTASSIUM SERUM 4.1 MMOL/L (3.5-5.1); SODIUM LEVEL 142 MMOL/L (136-145)
[2024-03-15 20:57] LABS: FREE T4 1.06 NG/DL (0.89-1.76); THYROID STIMULATING HORMONE 5.371 uIU/ML (0.55-4.78)
[2024-03-15] MEDS: NS 500 ML IV ONE (22:38)
[2024-03-15] MEDS ORDERED: HOME MED LIST COMPLETE! XX SCH (22:45)
[2024-03-15 23:01] LABS: KETONE, URINE AUTO RFX 1+ mg/dL (NEGATIVE); LEUKOCYTE ESTERASE UR AUTO RFX NEGATIVE (NEGATIVE); NITRITE, URINE AUTO RFX NEGATIVE (NEGATIVE); RBC, URINE AUTO RFX 0 /HPF (0-3); SQUAM EPITHELIAL CELL UR AURFX 0 /HPF (0-6); WBC, URINE AUTO RFX 4 /HPF (0-3)
[2024-03-15 23:04] LABS: PROCALCITONIN <0.04 ng/ml
[2024-03-15] MEDS ORDERED: GLUCAGON INJ 1MG VIAL SC PRN (23:10)
[2024-03-15] MEDS ORDERED: GLUCOSE 4 GM CHEW PO PRN (23:10)
[2024-03-15] MEDS ORDERED: ACETAMINOPHEN 325 MG TAB PO PRN (23:10)
[2024-03-15] MEDS ORDERED: COMBIVENT RESPIMAT 100-20MCG INHALER 4GM INH PRN (23:10)
[2024-03-15] MEDS ORDERED: MOM 30ML SUSPENSION UDC PO PRN (23:10)
[2024-03-15] MEDS ORDERED: DEXTROSE 50% 50ML SYRINGE IV PRN (23:10)
[2024-03-16] MEDS ORDERED: METOCLOPRAMIDE INJ 10MG/2ML VIAL IV PRN (01:20)
[2024-03-16] MEDS ORDERED: MECLIZINE 12.5 MG TAB PO PRN (01:20)
[2024-03-16 02:49] VITALS: BP 153/77; TEMP 97.5; O2SAT 98
[2024-03-16 04:50] VITALS: BP 154/78; TEMP 97.5; O2SAT 99
[2024-03-16 05:10] LABS: HEMATOCRIT 43.3 % (36.0-47.0); HEMOGLOBIN 13.5 g/dl (12.0-15.5); MEAN CORPUSCULAR HEMOGLOBIN 27.5 pg (27.0-33.0); MEAN CORPUSCULAR HGB CONC 31.2 g/dl (32.0-36.5); MEAN CORPUSCULAR VOLUME 88.2 fl (80.0-96.0); PLATELET COUNT, AUTOMATED 284 10^3/uL (150-450); RED BLOOD COUNT 4.91 10^6/uL (4.00-5.40)
[2024-03-16 05:41] LABS: ALBUMIN 3.4 G/DL (3.2-5.2); ALKALINE PHOSPHATASE 102 U/L (35-104); ALT/SGPT 16 U/L (7.0-40); AST/SGOT 23 U/L (<34); BILIRUBIN,TOTAL 0.3 MG/DL (0.3-1.2); BLOOD UREA NITROGEN 21 MG/DL (9-23); CALCIUM LEVEL 8.6 MG/DL (8.3-10.6); CARBON DIOXIDE LEVEL 21 MMOL/L (20-31); CHLORIDE LEVEL 107 MMOL/L (98-107); CREATININE FOR GFR 0.56 MG/DL (0.55-1.30); GLOMERULAR FILTRATION RATE > 60.0 (>39); GLUCOSE, FASTING 137 MG/DL (74-106); POTASSIUM SERUM 4.2 MMOL/L (3.5-5.1); SODIUM LEVEL 141 MMOL/L (136-145); TOTAL PROTEIN 6.8 G/DL (5.7-8.2)
[2024-03-16 06:15] VITALS: BP_SYST 135; BP_SYST 158; BP_SYST 163; BP_DIAS 100; BP_DIAS 54; BP_DIAS 74
[2024-03-16] MEDS: ENOXAPARIN 40MG/0.4ML SYRINGE (J1650 PER 10MG) SC SCH (08:05)
[2024-03-16] MEDS: ASPIRIN 81MG ENTERIC TABLET PO SCH (08:06)
[2024-03-16] MEDS: INSULIN LISPRO (NovoLOG) PER UNIT SC SCH ×2 (08:06→20:53)
[2024-03-16] MEDS: MAGNESIUM OXIDE 400MG TAB (MAG-OX) PO SCH (08:06)
[2024-03-16] MEDS: LR 1,000 ML IV SCH (08:11)
[2024-03-16] MEDS ORDERED: lisinopriL 5 MG TAB PO SCH (09:00)
[2024-03-16] MEDS: LEVEMIR (INSULIN DETEMIR) 1 UNITS/0.01ML SC SCH (09:05)
[2024-03-16 10:35] VITALS: BP_SYST 125; BP_SYST 145; BP_SYST 149; BP_DIAS 65; BP_DIAS 67; BP_DIAS 68
[2024-03-16] MEDS ORDERED: ONDANSETRON 4MG 2ML VIAL IV PRN (10:35)
[2024-03-16 12:00] VITALS: BP 152/66; TEMP 98.1; O2SAT 100
[2024-03-16] MEDS: ADVAIR HFA 115/21MCG INHALER INH SCH (16:24)
[2024-03-16 20:24] VITALS: BP 144/61; TEMP 98.1; O2SAT 99
[2024-03-17 03:08] VITALS: BP 125/79; TEMP 97.9; O2SAT 98
[2024-03-17 03:09] VITALS: BP_SYST 125; BP_SYST 131; BP_SYST 148; BP_DIAS 79; BP_DIAS 96; BP_DIAS 99
[2024-03-17 04:46] LABS: HEMATOCRIT 43.1 % (36.0-47.0); HEMOGLOBIN 13.4 g/dl (12.0-15.5); MEAN CORPUSCULAR HGB CONC 31.1 g/dl (32.0-36.5); MEAN CORPUSCULAR VOLUME 90.2 fl (80.0-96.0); PLATELET COUNT, AUTOMATED 257 10^3/uL (150-450); RED BLOOD COUNT 4.78 10^6/uL (4.00-5.40); WHITE BLOOD COUNT 5.8 10^3/uL (4.0-10.0)
[2024-03-17 05:09] LABS: BLOOD UREA NITROGEN 25 MG/DL (9-23); CALCIUM LEVEL 8.3 MG/DL (8.3-10.6); CARBON DIOXIDE LEVEL 23 MMOL/L (20-31); CHLORIDE LEVEL 114 MMOL/L (98-107); CREATININE FOR GFR 0.71 MG/DL (0.55-1.30); GLOMERULAR FILTRATION RATE > 60.0 (>39); GLUCOSE, FASTING 154 MG/DL (74-106); POTASSIUM SERUM 4.2 MMOL/L (3.5-5.1); SODIUM LEVEL 143 MMOL/L (136-145)
[2024-03-17] MEDS ORDERED: ISOVUE-370 76% 100ML VIAL As Ordered ONE (07:51)
[2024-03-17 08:50] VITALS: BP_SYST 101; BP_SYST 147; BP_SYST 148; BP_DIAS 60; BP_DIAS 86; BP_DIAS 87
[2024-03-17 11:41] LABS: C REACTIVE PROTEIN QUANTITATIV < 0.50 MG/DL (<1.0)
[2024-03-17 11:53] LABS: ERYTHROCYTE SEDIMENTATION RATE 20 mm/hr (0-30)
[2024-03-17 12:00] VITALS: BP 133/56; TEMP 97.5; O2SAT 98
[2024-03-17] MEDS ORDERED: ONDA-83 PO (13:00)
[2024-03-17] MEDS ORDERED: MECL-136 PO (13:00)
[2024-03-17] MEDS ORDERED: PEPT262C2 PO (13:00)
[2024-03-17] MEDS ORDERED: LOMO2.5T PO (13:00)
[2024-03-17] MEDS ORDERED: LOPE2CAP PO (13:16)
== END 2024-03-17 14:44 | disposition home or self-care (01) ==
LOC: EDBD 19:12 → M ED 19:12 → INTOOBSV 23:06 → M ED INP 23:06 → M MSPAV 03-16 01:49
PROVIDERS: ADMIT Student in an Organized Health Care Education/Training Program; ATTEND Student in an Organized Health Care Education/Training Program
DX: K52.9 Noninfective gastroenteritis and colitis, unspecified (principal); E11.9 Type 2 diabetes mellitus without complications; I10 Essential (primary) hypertension; J45.909 Unspecified asthma, uncomplicated; E78.5 Hyperlipidemia, unspecified; Z85.42 Personal history of malignant neoplasm of other parts of uterus; Z87.891 Personal history of nicotine dependence; F32.A Depression, unspecified; Z79.82 Long term (current) use of aspirin; Z79.4 Long term (current) use of insulin; Z79.899 Other long term (current) drug therapy; Z91.048 Other nonmedicinal substance allergy status
CPT/HCPCS: 36415; 71045; 74177; 80048; 80053; 81001; 83735; 84145; 84439; 84443; 85025; 85027; 85652; 86140; 87040; 87486; 87507; 87581; 87633; 87798; 93005; 93041; 94760; 96360; 96372; 97116; 97161; 97165; 97535; 99285; G0378; J1650; J1815; Q9967

== ENCOUNTER → 2024-05-05 | Outpatient (CLI) | payer MEDICARE ==
[~2024-05-05] MED LIST changes: +LOMO2.5T PO; +LOPE2CAP PO; +MECL-136 PO; +ONDA-83 PO; +PEPT262C2 PO
== END ==
LOC: M WHC 13:03
PROVIDERS: ATTEND Internal Medicine
DX: Z12.31 Encounter for screening mammogram for malignant neoplasm of breast (principal)

== ENCOUNTER → 2024-07-05 | Outpatient (CLI) | payer MEDICARE ==
[~2024-07-05] MED LIST changes: -GLUC1KIT IM; +GLUC1VIA14 IM
[2024-07-05 15:08] LABS: HEMOGLOBIN A1c 7.2 % (4.0-6.0)
[2024-07-05 15:15] LABS: ALBUMIN 3.8 G/DL (3.2-5.2); BILIRUBIN,TOTAL 0.5 MG/DL (0.3-1.2); CALCIUM LEVEL 9.2 MG/DL (8.3-10.6); CHOLESTEROL RISK RATIO 3.21 (<5); CREATININE FOR GFR 0.78 MG/DL (0.55-1.30); GLOMERULAR FILTRATION RATE 79.7 (>39); HDL CHOLESTEROL 73.2 MG/DL (>40); NON-HDL-C 161.8 MG/DL; POTASSIUM SERUM 4.3 MMOL/L (3.5-5.1); TOTAL PROTEIN 6.9 G/DL (5.7-8.2)
== END ==
LOC: M WUC 12:02
PROVIDERS: ATTEND Internal Medicine
DX: E78.5 Hyperlipidemia, unspecified (principal); E11.65 Type 2 diabetes mellitus with hyperglycemia

== ENCOUNTER 2024-10-18 19:47 | Emergency (ER) | payer MEDICARE ==
[~2024-10-18] VITALS: Ht 149.9 cm; Wt 82.7 kg
[~2024-10-18 19:47] MED LIST changes: -IBUP-1022 PO; +IBUP600T42 PO
[2024-10-18 21:36] LABS: ALT/SGPT 28 U/L (7.0-40); AST/SGOT 51 U/L (<34); CALCIUM LEVEL 9.3 MG/DL (8.3-10.6); CARBON DIOXIDE LEVEL 28 MMOL/L (20-31); CHLORIDE LEVEL 105 MMOL/L (98-107); CREATININE FOR GFR 0.77 MG/DL (0.55-1.30); GLOMERULAR FILTRATION RATE 80.9 (>39); POTASSIUM SERUM 5.3 MMOL/L (3.5-5.1); SODIUM LEVEL 143 MMOL/L (136-145)
[2024-10-18 21:45] LABS: BASO # 0.0 10^3/uL (0.0-0.2); BASO % 0.6 % (0.0-1.0); EOS # 0.2 10^3/uL (0.0-0.5); EOS % 2.7 % (0.0-3.0); LYMPH # 2.4 10^3/uL (1.5-5.0); LYMPH % 35.3 % (24.0-44.0); MONO # 0.5 10^3/uL (0.0-0.8); MONO % 7.7 % (2.0-8.0); NEUTROPHILS # 3.7 10^3/uL (1.5-8.5); NEUTROPHILS % 53.4 % (36.0-66.0); PLATELET COUNT, AUTOMATED 284 10^3/uL (150-450)
[2024-10-18] MEDS ORDERED: ISOVUE-370 76% 100 ML VIAL As Ordered ONE (22:12)
[2024-10-18] MEDS ORDERED: NS (Normal Saline) 0.9% 1,000 ML IV SCH (22:40)
[2024-10-18] MEDS: NS (Normal Saline) 0.9% 1,000 ML IV ONE (22:45)
[2024-10-19 03:40] LABS: CALCIUM LEVEL 8.4 MG/DL (8.3-10.6); CARBON DIOXIDE LEVEL 25 MMOL/L (20-31); CHLORIDE LEVEL 108 MMOL/L (98-107); CREATININE FOR GFR 0.68 MG/DL (0.55-1.30); GLOMERULAR FILTRATION RATE > 90.0 (>39); POTASSIUM SERUM 4.3 MMOL/L (3.5-5.1); SODIUM LEVEL 143 MMOL/L (136-145)
[2024-10-19 04:32] VITALS: BP 181/77
[2024-10-19] MEDS: amLODIPine 5 MG TAB PO ONE (04:32)
[2024-10-19] MEDS ORDERED: ONDA-282 PO (05:04)
[2024-10-19 06:07] VITALS: BP 172/82; TEMP 97.2; O2SAT 96
== END 2024-10-19 06:09 | disposition home or self-care (01) ==
LOC: M ED 19:47
DX: R19.7 Diarrhea, unspecified (principal); R91.1 Solitary pulmonary nodule; E11.9 Type 2 diabetes mellitus without complications; I10 Essential (primary) hypertension; J45.909 Unspecified asthma, uncomplicated; K21.9 Gastro-esophageal reflux disease without esophagitis; E78.5 Hyperlipidemia, unspecified; M54.9 Dorsalgia, unspecified; N17.9 Acute kidney failure, unspecified; I25.10 Atherosclerotic heart disease of native coronary artery without angina pectoris; Z79.82 Long term (current) use of aspirin; Z79.4 Long term (current) use of insulin; Z79.899 Other long term (current) drug therapy; Z91.89 Other specified personal risk factors, not elsewhere classified
CPT/HCPCS: 71045; 71250; 74177; 80047; 80048; 80076; 83605; 83690; 85025; 93005; 96360; 96361; 99284; Q9967